=== PATIENT | female | born 1965 | race Caucasian/White ===

== ENCOUNTER 2020-02-03 13:25 | Emergency (ER) | payer OTHER, SELFPAY ==
--- NOTE | 2020-02-03 13:30 | ED.SKABFB ---
HPI - Skin/Abscess/Foreign Bdy General Chief complaint: Skin/Abscess/Foreign Body Stated complaint: cheek is red/hot Time Seen by Provider: 02/03/20 13:37 Source: patient and RN notes reviewed Mode of arrival: ambulatory Limitations: no limitations History of Present Illness HPI narrative: 54-year-old female presents with concern for red, warm area on her left cheek. Reports she noted symptoms this morning. She denies any injury, trauma, history of similar instances, fever, chills, sweats. Reports she put ice on the area with no relief. complaint: rash Related Data Home Medications Medication Instructions Recorded Confirmed meloxicam 15 mg PO DAILY 02/03/20 02/03/20 tamoxifen 20 mg PO DAILY 02/03/20 02/03/20 Allergies Allergy/AdvReac Type Severity Reaction Status Date / Time No Known Allergies Allergy Verified 02/03/20 13:39 Review of Systems Review of Systems: Narrative: CONSTITUTIONAL: Denies malaise, chills, sweats, or fever. EYES: Denies visual changes, redness, or discharge. ENT: Denies rhinorrhea, congestion, sinus pain, otalgia or sore throat. CARDIOVASCULAR: Denies chest pain, palpitations RESPIRATORY: Denies dyspnea. SKIN: Reports red, warm area on her left cheek. MUSCULOSKELETAL: Denies myalgia. NEUROLOGIC: Denies headache. All systems reviewed & are unremarkable except as noted in HPI and below PMFSH Comments At time of signature, agree with nursing past medical, surgical, social and family history. There is no relevant family history pertinent to the presenting complaint Exam Narrative: Exam Narrative: GENERAL: Well-appearing, well-nourished, and in no acute distress. HEAD: Normocephalic, atraumatic. EYES: PERRLA, conjunctivae clear ENT: Nares clear. Mucous membranes moist. TM pearly medel with sharp light reflex bilaterally; no tragal tenderness. NECK: Supple. No lymphadenopathy CHEST: No respiratory distress. Speaks in full sentences. HEART: Regular rate and rhythm. SKIN: Warm, dry, no rash. 7 cm x 6 cm area of warmth, erythema, mild induration noted to the left cheek. No nodules, or obstructions palpated in the salivary glands NEURO: Alert and oriented x3. PSYCH: Normal mood and affect Course Course Emergency Course: Patient is aware of diagnosis, understands and agrees to treatment plan. Anticipatory guidance given. Patient agrees to follow-up as directed and is aware of reasons to seek care at the emergency department. Portions of this record may have been created with voice recognition software Vital Signs Vital signs: Vital Signs Temperature 99.3 F 02/03/20 13:39 Pulse Rate 68 02/03/20 13:39 Respiratory Rate 16 02/03/20 13:39 Blood Pressure 159/77 H 02/03/20 13:39 Pulse Oximetry 98 02/03/20 13:39 Temperature 99.3 F 02/03/20 13:39 Pulse Rate 68 02/03/20 13:39 Respiratory Rate 16 02/03/20 13:39 Blood Pressure 159/77 H 02/03/20 13:39 Pulse Oximetry 98 02/03/20 13:39 Reviewed. MDM - Skin/Abscess/Foreign Bdy MDM Narrative Medical decision making narrative: Exam findings show no acute concerns or changes; patient is non-toxic appearing and is in no distress. Patient is appropriate for outpatient treatment and follow-up. Differential Diagnosis Differential diagnosis: Likely abscess of skin or subcutaneous tissue, viral exanthem, cellulitis, eczema, impetigo and contact dermatitis Critical Care Time Critical Care Time Critical Care Time: No Discharge Plan Discharge Clinical Impression: Erysipelas Patient Disposition: Home, Self-Care Condition: Stable Instructions: Antibiotic Form Additional Instructions: Please follow up with your Primary Care Doctor if symptoms worsen or do not improve. Apply moist heat 3-4 times daily for 10-15 minutes. Take Motrin 600mg every 8 hours with food for pain. Please take Antibiotics as directed. If you experience any worsening redness, swelling, streaking (red lines), fever or chills please go to t
[2020-02-03 13:39] VITALS: BP 159/77; PULSE 68; RESP 16; TEMP 37.4; O2SAT 98
== END 2020-02-03 13:58 | disposition home or self-care (01) ==
PROVIDERS: Emergency Provider Nurse Practitioner; PCP Emergency Medicine
DX: A46 Erysipelas (principal)
CPT/HCPCS: 99213; G0463

== ENCOUNTER 2021-10-20 12:23 | Emergency (ER) | payer OTHER, SELFPAY ==
[2021-10-20 13:05] VITALS: BP 152/95; PULSE 87; RESP 20; TEMP 37.4; O2SAT 100
--- NOTE | 2021-10-20 13:35 | ED.URI ---
HPI - URI/Sore Throat General Chief Complaint: Upper Respiratory Infection Stated Complaint: Cough,Runny Nose,Congestion Time Seen by Provider: 10/20/21 13:25 History of Present Illness HPI Narrative: Milagros Torres is a 56 yo female with PMH of HTN, fatty liver, hx L breast CA, who comes to express care with cough, reported O2 of 92 on pulse ox, sore throat with coughing. Has been sick for 3 days with this cough andalso reports some fatigue , Related Data Home Medications Medication Instructions Recorded Confirmed meloxicam 15 mg tablet 15 mg PO DAILY 02/03/20 10/18/21 tamoxifen 20 mg tablet 20 mg PO DAILY 02/03/20 10/18/21 calcium carbonate 600 mg calcium 600 mg PO DAILY 03/14/21 10/18/21 (1,500 mg) tablet (Calcium) cholecalciferol (vitamin D3) 50 50 mcg PO DAILY 03/14/21 10/18/21 mcg (2,000 unit) capsule Allergies Allergy/AdvReac Type Severity Reaction Status Date / Time No Known Allergies Allergy Verified 10/20/21 13:29 Review of Systems Review of Systems: CONSTITUTIONAL: Denies fever, chills, sweats. worried about pulse ox of 92 EYES: Denies visual changes, redness, discharge. ENT: Denies rhinorrhea, congestion, sore throat, otalgia. CARDIOVASCULAR: Denies chest pain, palpitations, edema. RESPIRATORY: Denies dyspnea, wheezing, has cough GASTROINTESTINAL: Denies abdominal pain, nausea, vomiting, diarrhea. GENITOURINARY: Denies dysuria, hematuria, abnormal discharge SKIN: Denies rash or itching. NEUROLOGIC: Denies numbness, or focal weakness. PSYCHIATRIC: Denies anxiety or depression. [facility] Past Medical History Medical History Anxiety Essential (primary) hypertension History of left breast cancer NAFLD (nonalcoholic fatty liver disease) Osteoarthritis Surgical History Surgical History H/O dilation and curettage (~2018) 2015, 2019 History of lumpectomy of left breast 2016 History of tubal ligation (~1990) Hx laparoscopic cholecystectomy (~2020) Family History Family History Mother Lung cancer Sibling Breast cancer Social History Social History Smoking status: Never smoker Alcohol intake: current Substance use: never Gender identity (if verbalized by the patient): Female Spiritual care concerns: No Agree to blood products: Yes Comments At time of signature, I agree with nursing past medical, surgical, social and family history. There is no relevant family history pertinent to the presenting complaint. Exam Narrative: GENERAL: This is a well-nourished, well-developed patient, in mild distress. HEAD: normocephalic, atraumatic. EYES: Sclera clear/white. Vision is grossly intact. EARS: External ears normal, auditory canals erythematous and without drainage, TMs normal without perforation. Hearing grossly intact. NOSE: External nose normal with nasal discharge, nares without redness, hasrhinorrhea. THROAT: Mucous membranes moist, posterior pharynx erythema no exudate NECK: Neck supple, non-tender CARDIOVASCULAR: Regular rate and rhythm without murmurs, gallops, or rubs. RESPIRATORY: Clear to auscultation. Breath sounds equal bilaterally. No wheezes, rales, or rhonchi. GASTROINTESTINAL: Abdomen soft, SKIN: warm, intact with no suspicious lesions or rash, good texture and turgor. NEURO: awake, alert, and oriented to person, place and time. There were no obvious focal neurologic abnormalities. Steady gait EXTREMITIES: Normal range of motion. BACK: Nontender without deformity Course Course Emergency Course: Patient has been coughing and has a sore throat from all the coughing with reported low O2 sats x3 days Started on treatment for bronchitis including prednisone, Zithromax, Tessalon Perles, albuterol inhaler Level of Care: Express Care Visit Vit
== END 2021-10-20 13:46 | disposition home or self-care (01) ==
PROVIDERS: Emergency Provider Nurse Practitioner; PCP Family Medicine
DX: J40 Bronchitis, not specified as acute or chronic (principal); Z20.822 Contact with and (suspected) exposure to COVID-19; I10 Essential (primary) hypertension; Z85.3 Personal history of malignant neoplasm of breast; K76.0 Fatty (change of) liver, not elsewhere classified; M19.90 Unspecified osteoarthritis, unspecified site
CPT/HCPCS: 87081; 87426; 87804; 87880; 99213; C9803; G0463

== ENCOUNTER 2022-07-10 11:00 | Outpatient (CLI) | payer OTHER, SELFPAY ==
--- NOTE | ~2022-07-10 | US_ITS ---
EXAMINATION: US pelvic complete w TV DATE: 07/10/2022 11:57 INDICATION: N95.0 - Postmenopausal bleeding. Menopause 7 years ago, on tamoxifen x7 years. TECHNIQUE: Multiple transabdominal and endovaginal sonographic images of the pelvis were obtained. COMPARISON: None. FINDINGS: Uterus: 9.3 x 3.7 x 4.9 cm. Endometrial complex measures 5.2 mm. Right Ovary: Not visualized. Left Ovary: Not visualized. There is no free fluid in the pelvis. IMPRESSION: Mild endometrial thickening, consider endometrial sampling. Bilateral ovaries not visualized. Reviewed, dictated and finalized at location K. [employer] IMPRESSION: Mild endometrial thickening, consider endometrial sampling. Bilateral ovaries n ot visualized.
== END 2022-07-10 11:01 | disposition home or self-care (01) ==
PROVIDERS: PCP Family Medicine; Visit Provider Registered Nurse
DX: N95.0 Postmenopausal bleeding (principal)
CPT/HCPCS: 76830; 76856

== ENCOUNTER 2022-08-13 07:55 | Outpatient (CLI) | payer OTHER, SELFPAY ==
--- NOTE | ~2022-08-13 | DEXA_ITS ---
Bone Density Report Name: TAI CERVANTES Age: 57 Sex: Female Ethnicity: White Date of : 1965 Indication: postmenopausal; screening for osteoporosis; cancer; Referring Provider: DEBRA JOHNSON Study: Bone densitometry was performed. Exam Date: August 13, 2022 Accession number: [id number] Bone Density: Region BMD T-score Z-score Classification AP Spine(L1-L4) 1.084 0.3 1.6 Normal Femoral Neck (Left) 0.809 -0.4 0.8 Normal Total Hip (Left) 0.987 0.4 1.2 Normal Femoral Neck (Right) 0.838 -0.1 1.1 Normal Total Hip (Right) 1.036 0.8 1.6 Normal Total Hip Mean 1.012 0.6 1.4 Normal World Health Organization criteria for BMD impression classify patients as: Normal (T-score at or above -1.0), Osteopenia (T-score between -1.0 and -2.5), or Osteoporosis (T-score at or below -2.5). 10-year Fracture Risk: FRAX not reported because: All T-scores for Spine Total, Hip Total, Femoral Neck at or above -1.0 Clinical Information Provided by Patient: Has used the following medications: Vitamin D, Calcium Has the following medical conditions: Cancer Patient maximum height was 67 Menopause Age: 51 No regular weight bearing exercise Onset of menses at age 13 Number of children 3 Impression: The patient has normal bone mass. Discussion: BONE DENSITY IS ABOVE THE MINIMUM DESIRABLE LEVEL AT ALL SKELETAL SITES TESTED. This patient?s bone mineral density is above the minimum desirable level (T-score -1.0 or better) at all sites measured. The patient should follow a healthful lifestyle (good nutrition with adequate calcium and vitamin D, and appropriate weight-bearing exercise). Follow-Up: Consider repeating this study in 5 years or sooner if there is some new clinical indication. Reported by: GLENN on 08/13/2022 8:19:00 AM. Reviewed, dictated and finalized at location [facility]
== END 2022-08-13 07:56 | disposition home or self-care (01) ==
PROVIDERS: PCP Family Medicine; Visit Provider Registered Nurse
DX: Z78.0 Asymptomatic menopausal state (principal)
CPT/HCPCS: 77080

== ENCOUNTER 2022-11-04 10:46 | Emergency (ER) | payer OTHER, SELFPAY ==
--- NOTE | ~2022-11-04 | XR_ITS ---
EXAMINATION: XR ankle RT min 3V DATE: 11/04/2022 11:06 INDICATION: Right ankle pain. Fall. TECHNIQUE: 4 views of right ankle were obtained. COMPARISON: Right foot radiographs 08/30/2016 FINDINGS: Bone alignment is normal. No fracture. Joint spaces are well maintained. There are enthesop hytes at the posterior and plantar aspects of calcaneal tuberosity. There is soft tissue swelling abo ut the ankle. IMPRESSION: 1. No fracture. Reviewed, dictated and finalized at location A. IMPRESSION: 1. No fracture.
[2022-11-04 10:57] VITALS: BP 147/90; PULSE 103; RESP 18; TEMP 36.8; O2SAT 99
--- NOTE | 2022-11-04 11:13 | ED.LOWEXIN ---
HPI - Extremity Injury (Lower) General Chief Complaint: Extremity Injury, Lower Stated Complaint: Rt Ankle Pain Due To Fall Time Seen by Provider: 11/04/22 11:13 Source: patient, RN notes reviewed and old records reviewed Mode of arrival: ambulatory Limitations: no limitations History of Present Illness HPI Narrative: 57-year-old female presents to the [facility] with medial ankle pain, bruising and a blister since she fell Walks with a normal gait. Significant bruising noted to the medial aspect of the right lower leg, ankle and foot. Has full range of motion. Positive pedal pulse. Sensation intact in all 5 toes. Good range of motion Onset (ago): day(s) Related Data Home Medications Medication Instructions Recorded Confirmed calcium carbonate 600 mg calcium 600 mg PO DAILY 03/14/21 11/04/22 (1,500 mg) tablet (Calcium) cholecalciferol (vitamin D3) 50 50 mcg PO DAILY 03/14/21 11/04/22 mcg (2,000 unit) capsule celecoxib 100 mg capsule (Celebrex) 100 mg PO DAILY 06/03/22 11/04/22 Allergies Allergy/AdvReac Type Severity Reaction Status Date / Time No Known Allergies Allergy Verified 11/04/22 11:05 Review of Systems Review of Systems: All systems reviewed & are unremarkable except as noted in HPI and below Constitutional: Constitutional: Reports no additional constitutional complaints Eyes: Eyes: Reports no additional eye complaints ENT: Reports system reviewed and no additional complaints, except as documented Cardiovascular: Cardiovascular: Reports no additional cardiovascular complaints, Denies chest pain and Denies dyspnea Respiratory: Respiratory: Reports no additional respiratory complaints, Denies chest congestion, Denies cough and Denies dyspnea Gastrointestinal: Gastrointestinal: Reports no additional gastrointestinal complaints, Denies abdominal pain, Denies nausea and Denies vomiting Musculoskeletal: Musculoskeletal: Reports as per HPI Integumentary/Breasts: Skin/Breast: Reports as per HPI Neurologic: Reports system reviewed and no additional complaints, except as documented Psychiatric: Psychiatric: Reports no additional psychiatric complaints Allergic/Immunologic: Allergic/Immunologic: Reports no additional allergic/immunologic complaints [facility] Past Medical History Medical History Anxiety CKD (chronic kidney disease) stage 3, GFR 30-59 ml/min Essential (primary) hypertension Gastroesophageal reflux disease History of left breast cancer History of vaginal delivery x2 Hyperlipidemia NAFLD (nonalcoholic fatty liver disease) Osteoarthritis Post-menopausal bleeding Surgical History Surgical History H/O dilation and curettage (~2018) 2015, 2018 History of section x 1 History of lumpectomy of left breast 2016 History of total left knee replacement (~2021) History of tubal ligation (~1990) Hx laparoscopic cholecystectomy (~2020) Family History Family History Mother Lung cancer Diabetes mellitus Heart disease Cerebrovascular accident Sibling Breast cancer Sister Malignant neoplasm of prostate brother Other Alcoholism Lung cancer Aunt and Uncle Grandparent Alcoholism Lung cancer Grandfather Father Hypertension Heart disease Social History Social History Smoking status: Never smoker Alcohol intake: current Substance use: never Substance use type: does not use Lack of Transportation: No Lack of Food: Never True Current Housing: I Have Housing Concerned About Future Housing: No Difficulty Paying Gas/Electric Bills: No Difficulty Paying for Meds: No Currently Unemployed: No Education: High School Diploma/GED Difficulty w/ Childcare or Family Care: No Living arrangements: with ro
== END 2022-11-04 11:30 | disposition home or self-care (01) ==
PROVIDERS: Emergency Provider Nurse Practitioner; PCP Family Medicine
DX: S90.01XA Contusion of right ankle, initial encounter (principal); W19.XXXA Unspecified fall, initial encounter; I12.9 Hypertensive chronic kidney disease with stage 1 through stage 4 chronic kidney disease, or unspecified chronic kidney disease; N18.30 Chronic kidney disease, stage 3 unspecified; K21.9 Gastro-esophageal reflux disease without esophagitis; Z85.3 Personal history of malignant neoplasm of breast; E78.5 Hyperlipidemia, unspecified; K76.0 Fatty (change of) liver, not elsewhere classified; M19.90 Unspecified osteoarthritis, unspecified site; Z96.652 Presence of left artificial knee joint
CPT/HCPCS: 73610; 99213; G0463

== ENCOUNTER 2022-11-09 13:33 | Emergency (ER) | payer OTHER, SELFPAY ==
[2022-11-09 13:36] VITALS: BP 149/87; PULSE 91; RESP 20; TEMP 36.7; O2SAT 98
--- NOTE | 2022-11-09 14:08 | ED.LOWEXIN ---
HPI - Extremity Injury (Lower) General Chief Complaint: Extremity Injury, Lower Stated Complaint: ankle wound Time Seen by Provider: 11/09/22 13:44 History of Present Illness HPI Narrative: Patient is a 57-year-old female presenting with a blister. Patient states that she twisted her ankle approximately 5 days ago. She had a lot of bruising at that time as well as a small blister on the medial aspect of her right ankle. States that x-ray showed no broken bones and she was able to go home. States that all of the bruising and redness has improved but the blister has gotten a little bit bigger. States that it feels tight. Patient states that she has been ambulating without difficulty. She denies calf swelling or pain. She denies numbness or weakness. Denies further injuries or complaints. Related Data Home Medications Medication Instructions Recorded Confirmed calcium carbonate 600 mg calcium 600 mg PO DAILY 03/14/21 11/04/22 (1,500 mg) tablet (Calcium) cholecalciferol (vitamin D3) 50 50 mcg PO DAILY 03/14/21 11/04/22 mcg (2,000 unit) capsule celecoxib 100 mg capsule (Celebrex) 100 mg PO DAILY 06/03/22 11/04/22 Allergies Allergy/AdvReac Type Severity Reaction Status Date / Time No Known Allergies Allergy Verified 11/09/22 13:39 Review of Systems Review of Systems: All systems reviewed & are unremarkable except as noted in HPI and below PMFSH Past Medical History Medical History Anxiety CKD (chronic kidney disease) stage 3, GFR 30-59 ml/min Essential (primary) hypertension Gastroesophageal reflux disease History of left breast cancer History of vaginal delivery x2 Hyperlipidemia NAFLD (nonalcoholic fatty liver disease) Osteoarthritis Post-menopausal bleeding Surgical History Surgical History H/O dilation and curettage (~2018) 2015, 2019 History of section x 1 History of lumpectomy of left breast 2016 History of total left knee replacement (~2021) History of tubal ligation (~1990) Hx laparoscopic cholecystectomy (~2020) Family History Family History Mother Lung cancer Diabetes mellitus Heart disease Cerebrovascular accident Sibling Breast cancer Sister Malignant neoplasm of prostate brother Other Alcoholism Lung cancer Aunt and Uncle Grandparent Alcoholism Lung cancer Grandfather Father Hypertension Heart disease Social History Social History Smoking status: Never smoker Alcohol intake: current Substance use: never Substance use type: does not use Lack of Transportation: No Lack of Food: Never True Current Housing: I Have Housing Concerned About Future Housing: No Difficulty Paying Gas/Electric Bills: No Difficulty Paying for Meds: No Currently Unemployed: No Education: High School Diploma/GED Difficulty w/ Childcare or Family Care: No Living arrangements: with roommate(s) Occupation/Education: occupation Gender identity (if verbalized by the patient): Female Spiritual care concerns: No Agree to blood products: Yes Exam Narrative: GENERAL: Well-appearing, well-nourished, and in no acute distress. HEAD: Normocephalic, bruising below both eyes EYES: PERRLA and EOMI. ENT: Nares clear, no rhinorrhea or epistaxis. Mucous membranes moist. NECK: Supple. CHEST: No respiratory distress. HEART: Regular rate and rhythm. Normal peripheral pulses. ABDOMEN: Nondistended EXTREMITIES: Right ankle with circumferential ecchymoses extending up the calf that appear to be healing, 2 x 2 centimeter blister medial aspect of the right ankle without surrounding erythema, no purulence, no crepitus, compartments are soft, DP/PT pulses 2+, brisk cap refill, no sensory deficits SKIN: Warm
== END 2022-11-09 14:44 | disposition home or self-care (01) ==
PROVIDERS: Emergency Provider Emergency Medicine; PCP Family Medicine
DX: S90.521A Blister (nonthermal), right ankle, initial encounter (principal); I12.9 Hypertensive chronic kidney disease with stage 1 through stage 4 chronic kidney disease, or unspecified chronic kidney disease; N18.30 Chronic kidney disease, stage 3 unspecified; E78.5 Hyperlipidemia, unspecified; X50.0XXA Overexertion from strenuous movement or load, initial encounter
CPT/HCPCS: 99281

== ENCOUNTER 2023-08-01 14:23 | Emergency (ER) | payer OTHER, SELFPAY ==
--- NOTE | 2023-08-01 14:30 | ED.GENADULT ---
HPI - General Adult General Chief complaint: Extremity Problem,Nontraumatic Stated complaint: bilateral leg swelling Time Seen by Provider: 08/01/23 14:35 Source: patient, RN notes reviewed and old records reviewed Mode of arrival: ambulatory Limitations: no limitations History of Present Illness HPI narrative: 58-year-old female presents to the [facility] with bilateral leg swelling for about 1 week. States that she has been on vacation. Has been eating out at restaurants. Has not been checking her blood pressure. Patient states that she has been elevating legs and soaking. No redness noted. Walks with a normal gait. Positive pedal pulse. Capillary refill under 2 seconds. States that she tried calling primary care provider and was referred to the Urgent Care Patient with a history of hypertension, high cholesterol as well as stage 3 kidney disease. Denies any chest pain or shortness of breath. Onset (ago): week(s) (1) Related Data Home Medications Medication Instructions Recorded Confirmed calcium carbonate 600 mg calcium 600 mg PO DAILY 03/14/21 08/01/23 (1,500 mg) tablet (Calcium) cholecalciferol (vitamin D3) 50 50 mcg PO DAILY 03/14/21 08/01/23 mcg (2,000 unit) capsule celecoxib 100 mg capsule (Celebrex) 100 mg PO DAILY 06/03/22 08/01/23 Allergies Allergy/AdvReac Type Severity Reaction Status Date / Time No Known Allergies Allergy Verified 08/01/23 14:36 Review of Systems Review of Systems: All systems reviewed & are unremarkable except as noted in HPI and below Constitutional: Constitutional: Reports no additional constitutional complaints Eyes: Eyes: Reports no additional eye complaints ENT: Reports system reviewed and no additional complaints, except as documented Cardiovascular: Cardiovascular: Reports no additional cardiovascular complaints, Denies chest pain and Denies dyspnea Respiratory: Respiratory: Reports no additional respiratory complaints, Denies chest congestion, Denies cough and Denies dyspnea Gastrointestinal: Gastrointestinal: Reports no additional gastrointestinal complaints, Denies abdominal pain, Denies nausea and Denies vomiting Musculoskeletal: Musculoskeletal: Reports as per HPI Integumentary/Breasts: Skin/Breast: Reports system reviewed and no additional complaints, except as docu Neurologic: Reports system reviewed and no additional complaints, except as documented Psychiatric: Psychiatric: Reports no additional psychiatric complaints Allergic/Immunologic: Allergic/Immunologic: Reports no additional allergic/immunologic complaints PMFSH Past Medical History Medical History Anxiety CKD (chronic kidney disease) stage 3, GFR 30-59 ml/min Essential (primary) hypertension Gastroesophageal reflux disease History of left breast cancer History of vaginal delivery x2 Hyperlipidemia NAFLD (nonalcoholic fatty liver disease) Osteoarthritis Post-menopausal bleeding Surgical History Surgical History H/O dilation and curettage (~2018) 2015, 2019 History of section x 1 History of hysterectomy (~2022) History of lumpectomy of left breast 2016 History of total left knee replacement (~2021) History of tubal ligation (~1990) Hx laparoscopic cholecystectomy (~2020) Family History Family History Mother Lung cancer Diabetes mellitus Heart disease Cerebrovascular accident Sibling Breast cancer Sister Malignant neoplasm of prostate brother Other Alcoholism Lung cancer Aunt and Uncle Grandparent Alcoholism Lung cancer Grandfather Father Hypertension Heart disease Social History Social History Smoking status: Never smoker Alcohol intake: current Substance use: never Substance use type: does
[2023-08-01 14:35] VITALS: BP 135/78; PULSE 91; RESP 18; TEMP 36.9; O2SAT 98
[2023-08-01 14:36] VITALS: BP 135/78; PULSE 91; RESP 18; TEMP 36.9; O2SAT 98
== END 2023-08-01 14:51 | disposition home or self-care (01) ==
PROVIDERS: Emergency Provider Nurse Practitioner; PCP Family Medicine
DX: R60.0 Localized edema (principal); I12.9 Hypertensive chronic kidney disease with stage 1 through stage 4 chronic kidney disease, or unspecified chronic kidney disease; N18.30 Chronic kidney disease, stage 3 unspecified; K21.9 Gastro-esophageal reflux disease without esophagitis; Z85.3 Personal history of malignant neoplasm of breast; E78.5 Hyperlipidemia, unspecified; K76.0 Fatty (change of) liver, not elsewhere classified; M19.90 Unspecified osteoarthritis, unspecified site; Z96.652 Presence of left artificial knee joint; Z90.12 Acquired absence of left breast and nipple
CPT/HCPCS: 99211; G0463

== ENCOUNTER 2023-09-11 11:25 | Outpatient (CLI) | payer OTHER, SELFPAY ==
--- NOTE | ~2023-09-11 | XR_ITS ---
EXAMINATION: XR lumbar spine 2-3V DATE: 09/11/2023 11:41 INDICATION: Dorsalgia. TECHNIQUE: 3 views of lumbar spine were obtained. COMPARISON: Lumbar spine radiographs 08/30/2016 FINDINGS: There is 4 degrees dextrocurvature lumbar spine. Vertebral body heights are normal. There i s mildly decreased disc height at L5-S1. There are endplate osteophytes at multiple levels. There is multilevel facet joint osteoarthritis, severe in lower lumbar spine. IMPRESSION: 1. Mild lumbar spondylosis. Reviewed, dictated and finalized at location A. IMPRESSION: 1. Mild lumbar spondylosis.
== END 2023-09-11 11:26 | disposition home or self-care (01) ==
LOC: ANHIMG 11:26
PROVIDERS: PCP Family Medicine; Visit Provider Nurse Practitioner
DX: M47.896 Other spondylosis, lumbar region (principal)
CPT/HCPCS: 72100

== ENCOUNTER 2024-04-19 08:26 | Emergency (ER) | payer OTHER, SELFPAY ==
--- NOTE | ~2024-04-19 | XR_ITS ---
XR chest 2V Ordering provider: Jessica Gonzalez APRN History: 58 years Female with . Cough. 1 week + . Comparison: None. FINDINGS: MEDIASTINUM: The cardiac silhouette is not enlarged. LUNGS: No infiltrates, effusions or pneumothorax. Prominent bronchovascular markings in the lower lobes which may indicate atelectasis. Early pneumonia cannot be excluded. OTHER: No free air under the diaphragm. IMPRESSION: Prominent bronchovascular markings in the lower lobes which may indicate atelectasis. Ear ly pneumonia also cannot be excluded. Follow-up advised. Reviewed, dictated and finalized at location A. EYOR OPERATOR IMPRESSION: Prominent bronchovascular markings in the lower lobes which may ind icate atelectasis. Early pneumonia also cannot be excluded. Follow-up advised.
--- NOTE | 2024-04-19 08:32 | ED.URI ---
HPI - URI/Sore Throat General Chief Complaint: Upper Respiratory Infection Stated Complaint: cold symptoms Time Seen by Provider: 04/19/24 08:51 Source: patient, RN notes reviewed and old records reviewed Mode of arrival: ambulatory Limitations: no limitations History of Present Illness HPI Narrative: 58-year-old female presents to the [facility] with concerns for a cough for over 1 week. Has taken Delsym as well as Mucinex. Denies fevers. Denies any other URI symptoms Onset (ago): week(s) (+1) Treatments prior to arrival: cold medicine Related Data Home Medications ?Medication ?Instructions ?Recorded ?Confirmed ?Last Taken ?Type calcium carbonate (Calcium 600) 600 mg PO DAILY 03/14/21 02/04/24 Unknown History cholecalciferol (vitamin D3) 50 50 mcg PO DAILY 03/14/21 02/04/24 Unknown History mcg (2,000 unit) capsule celecoxib 100 mg capsule (Celebrex) 100 mg PO DAILY 06/03/22 02/04/24 Unknown History Allergies Allergy/AdvReac Type Severity Reaction Status Date / Time amlodipine AdvReac Severe Swelling Verified 04/19/24 08:51 Review of Systems Review of Systems: All systems reviewed & are unremarkable except as noted in HPI and below Constitutional: Constitutional: Reports no additional constitutional complaints ENT: Reports system reviewed and no additional complaints, except as documented Cardiovascular: Cardiovascular: Reports no additional cardiovascular complaints, Denies chest pain and Denies dyspnea Respiratory: Respiratory: Reports as per HPI, Denies chest congestion, Reports cough and Denies dyspnea Gastrointestinal: Gastrointestinal: Reports no additional gastrointestinal complaints, Denies abdominal pain, Denies nausea and Denies vomiting Musculoskeletal: Musculoskeletal: Reports no additional musculoskeletal complaints Integumentary/Breasts: Skin/Breast: Reports system reviewed and no additional complaints, except as docu PMFSH Past Medical History Medical History Prediabetes (~01/09/24) History of vaginal delivery x2 Hyperlipidemia Gastroesophageal reflux disease CKD (chronic kidney disease) stage 3, GFR 30-59 ml/min NAFLD (nonalcoholic fatty liver disease) History of left breast cancer Essential (primary) hypertension Osteoarthritis Anxiety Surgical History Surgical History History of hysterectomy (~2022) History of section x 1 History of total left knee replacement (~2021) History of lumpectomy of left breast 2016 History of tubal ligation (~1990) H/O dilation and curettage (~2018) 2015, 2019 Hx laparoscopic cholecystectomy (~2020) Family History Family History Mother Lung cancer Diabetes mellitus Heart disease Cerebrovascular accident Sibling Breast cancer Sister Malignant neoplasm of prostate brother Other Alcoholism Lung cancer Aunt and Uncle Grandparent Alcoholism Lung cancer Grandfather Father Hypertension Heart disease Social History Social History Smoking status: Never smoker Alcohol intake: current Substance use: never Substance use type: does not use Lack of Transportation: No Lack of Food: Never True Current Housing: I Have Housing Concerned About Future Housing: No Difficulty Paying Gas/Electric Bills: No Difficulty Paying for Meds: No Currently Unemployed: No Education: High School Diploma/GED Difficulty w/ Childcare or Family Care: No Living arrangements: with roommate(s) Occupation/Education: occupation Gender identity (if verbalized by the patient): Female Spiritual care concerns: No Agree to blood products: Yes Comments At the time of my signature, I reviewed and agree with the nursing past medical, surgical, social, and family history. There is no relevant family history pertinent to the patient complaint. Exam Const: General: cooperative, healthy appearing, comfortable, no acute distress, well developed, alert and well nourished Nutritional Appearance: well nourished Orientation/consciousness: patient oriented x3 Limitations: no limitations HENMT: Head: normal to inspection Ears: hearing grossly normal bilaterally and external ears normal Face/Nose/Sinus: Normal external nose present, normal facial exam and face symmetric Eyes: General: appearance normal, both eyes and all related structures Neck: Neck: normal visual inspection, full ROM, no lymphadenopathy and no meningeal signs Chest: Chest palpation & inspection: normal inspection of the chest Resp: Effort & Inspection: normal respiratory effort and able to speak in complete sentences Auscultation: clear to auscultation bilaterally, no crackles, no rales, no rhonchi, no wheezes and diminished lung sounds bilateral in the lower lung galindo Cardio: Rate: regular rate Skin: General skin exam: normal color and no rashes or lesions noted Lesions: no lesions Rashes: no rashes Wounds: no wounds Neuro: General: patient oriented x3, gait normal, tone normal, moves all extremities and no meningeal signs Cognition (Neuro): normal cognition Speech: normal speech Gait exam (Neuro): Normal gait present Extrem: General: normal to inspection, full ROM, capillary refill normal and normal gait Psych: Appearance: grossly normal and well kempt Mental Status: mental status grossly normal Speech and movement: Normal speech and movement present and Clear speech present Affect: normal affect Attitude: cooperative Course Course Level of Care: Express Care Visit Vital Signs Vital signs: Vital Signs Temperature 98.2 F 04/19/24 08:41 Pulse Rate 64 04/19/24 08:41 Respiratory Rate 20 04/19/24 08:41 Blood Pressure 151/76 H 04/19/24 08:41 Pulse Oximetry 97 04/19/24 08:41 Oxygen Delivery Room Air 04/19/24 08:41 Temperature 98.2 F 04/19/24 08:41 Pulse Rate 64 04/19/24 08:41 Respiratory Rate 20 04/19/24 08:41 Blood Pressure 151/76 H 04/19/24 08:41 Pulse Oximetry 97 04/19/24 08:41 Oxygen Delivery Room Air 04/19/24 08:41 Reviewed MDM - URI/Sore Throat MDM Narrative Medical decision making narrative: Patient sitting comfortably in exam room. Nontoxic, vitals stable. Patient presents with over 1 week history of a cough. Chest x-ray shows atelectasis possible early pneumonia, will treat with antibiotic, incentive spirometer and [id number] products. Patient appropriate for outpatient treatment and follow-up Discharge instructions reviewed with patient, as well as provided in writing per nursing staff. The instructions also include specific and strict return/GO TO THE ER as well as f/u information. All questions have been answered, and the patient deny any further questions with discharge and discharge plan. Some parts of this dictation were generated by voice recognition software and may contain typographical and/or grammatical inaccuracies. Differential Diagnosis Differential diagnosis: Likely upper respiratory infection, otitis media, sinusitis, viral infection and bronchitis Imaging Data Radiologist's impression: XR chest 2V Ordering provider: Jessica Gonzalez APRN History: 58 years Female with . Cough. 1 week + . Comparison: None. FINDINGS: MEDIASTINUM: The cardiac silhouette is not enlarged. LUNGS: No infiltrates, effusions or pneumothorax. Prominent bronchovascular markings in the lower lobes which may indicate atelectasis. Early pneumonia cannot be excluded. OTHER: No free air under the diaphragm. IMPRESSION: Prominent bronchovascular markings in the lower lobes which may indicate atelectasis. Early pneumonia also cannot be excluded. Follow-up advised. Reviewed, dictated and finalized at location A. ER TRIMMER Dictated By: Jacinto Evans MD 04/19/24 0941 Signed By: <Electronically signed by Jacinto Evans MD in OV> 04/19/24 0943 Critical Care Time Critical Care Time Critical Care Time: No Discharge Plan Discharge Clinical Impression: Atelectasis Pneumonia Qualifiers: Pneumonia type: due to unspecified organism Laterality: unspecified laterality Lung location: unspecified part of lung Qualified Code(s): J18.9 - Pneumonia, unspecified organism Patient Disposition: Home, Self-Care Condition: Stable Instructions: Antibiotic Form, Pneumonia (ED), Atelectasis (ED) Additional Instructions: It is important that you do 10 deep breaths per hour while awake. Use incentive spirometer Take antibiotic as prescribed Use inhaler every 6 hours while awake Follow-up with primary care provider. It is recommended that you follow-up with your primary care provider for a follow-up x-ray in approximately 2 weeks. For new or worsening symptoms go directly to the emergency room Patient Language: Frisian Prescriptions: New doxycycline monohydrate 100 mg tablet 100 mg PO BID Qty: 14 0RF albuterol sulfate 90 mcg/actuation HFA aerosol inhaler 2 puff inhalation QID PRN (Reason: shortness of breath or wheezing) Qty: 6.7 0RF (DME) Aerochamber MV Spacer See Rx Instructions .Route Qty: 1 0RF Rx Instructions: As directed No Action celecoxib [Celebrex] 100 mg capsule 100 mg PO DAILY cholecalciferol (vitamin D3) 50 mcg (2,000 unit) capsule 50 mcg PO DAILY calcium carbonate [Calcium 600] 600 mg calcium (1,500 mg) tablet 600 mg PO DAILY losartan 25 mg tablet 25 mg PO DAILY Qty: 90 3RF Rx Instructions: Take in conjunction with Losartan HTCZ. losartan-hydrochlorothiazide 50-12.5 mg tablet 1 tablet PO DAILY Qty: 90 2RF phentermine 37.5 mg capsule 37.5 mg PO DAILY Qty: 30 1RF Rx Instructions: must administer 30 minutes before or 1-2 hours after breakfast pravastatin 10 mg tablet 10 mg PO QHS Qty: 90 1RF omeprazole 20 mg capsule,delayed release(DR/EC) 20 mg PO DAILY Qty: 90 1RF Follow-up/Referrals: Benito Veras MD [Primary Care Provider] - 1 Week ([facility] follow-up) Stand Alone Forms: Work/School Release IP Time of Disposition: 09:58
[2024-04-19 08:41] VITALS: BP 151/76; PULSE 64; RESP 20; TEMP 36.8; O2SAT 97
--- OUTSIDE RECORDS SUMMARY | 2024-04-25 13:52 | XMS_ITS | Encounter Summary ---
Author Organization [facility] [employer] Address [address] [place] [address] Care Team Providers Care Methods Specialist Name Role Phone Cole Ku MD Unavailable Willis Veras MD Primary Care Provider Elizabeth Garcia MD Unavailable [phone] Reason for Visit * Auth/Cert (Routine) Specialty Diagnoses / Procedures Referred By Contac t Referred To Contact Diagnoses History of colon polyps Procedures [place] CANC SCRN,COLONOSCPY HI RISK COLONOSCOPY SCREEN w/ curt COLONOSCOPY SCREEN Referral ID Status Reason Start Date Expiration Date Visits Re quested Visits Authorized [id number] 1 1 Encounter Details Date Type Department Care Team (Late st Contact Info) Description 02/03/2024 7:45 AM CDT - 02/03/2024 8:35 AM CDT Surgery [facility] ENDOSCOPY [address] [place] [phone] Joseph Pathak MD [facility] 2L DIV [place] [address] COLONOSCOPY SCREEN w/ curt Surgery Details Date/Time Status Location OR Service Patient Class Case Class Case Type Trauma Case? 02/03/2024 7:45 AM Posted [facility] Endoscopy ENDO 4 Gastroenterology Surgery Day Care Elective > 5 days Panel 1 Procedure LRB Anes Op Region Wound Class Comments COLONOSCOPY SCREEN w/ curt N/A MAC NA A. ileocecal valve irregular mucosa biopsies Surgeon Surgeon Role Service Panel Joseph Pathak MD Primary Gastroenter ology 1 Special Needs COLONOSCOPY Received: Yesterday Jerry Jaime, SABRINA Hidalgo, Saba Powers, SABRINA Walter! Please eval when this pt can be scheduled for procedure(requesting Dr Carpio, says she had him previously). Thanks! Received Date Received Time Dec 18, 2023 2:40 PM documented in this encounter Social History Tobacco Use Types Packs/Day Years Used Date Smoking Tobacco: Never Smokeless Tobacco: Never Alcohol Use Standard Drinks/Week Comments Yes 0 (1 standard drink = 0.6 oz pur e alcohol) ocassional weekends AUDIT-C Answer Date Recorded Q1: How often do you have a drink containing alc ohol? Never 01/07/2023 Average Number of Drinks Not on file 023 Frequency of Binge Drinking Not on file 09/2022 Hunger Vital Sign Answer Date Recorded Within the past 12 months, y ou worried that your food would run out before you got the money to buy more. Never true 02/02/20 22 Within the past 12 months, t he food you bought just didn't last and you didn't have money to get more. Never true 02/01/2022 Sex and Gender Information Value Date Recorded Sex Assigned at Not on file Gender Identity Not on file Sexual Orientation Not on file documented as of this encounter Last Filed Vital Signs Vital Sign Reading Time Taken Comments Blood Pressure 129/87 02/03/2024 7:42 AM CDT Pulse 67 02/03/2024 7:42 AM CDT Temperature 36.7 ??C (98.1 ??F) 02/03/2024 7:25 AM CD T Respiratory Rate 14 02/03/2024 7:42 AM CDT Oxygen Saturation 97% 02/03/2024 7:42 AM CDT Inhaled Oxygen Concentration - - Weight 97.5 kg (214 lb 14.4 oz) 02/03/2024 7:25 AM CDT Height 170.2 cm (5' 7 ) 02/03/2024 7:25 AM CDT Body Mass Index 33.66 02/03/2024 7:25 AM CDT documented in this encounter Functional Status Functional Status Response Date of Assess ment Is person deaf or have serious hearing difficult y? No 02/03/2024 Is person blind or have serious difficulty seein g? No 02/03/2024 Does person have serious dif ficulty walking/climbing stairs? No 02/03/2024 Does person have difficulty dressing/bathing? No 02/03/2024 Does person have difficulty doing errands alone? No 02/03/2024 Cognitive Status Response Date of Assessm ent Does person have difficulty concentrating/remembering/making decisions? No 02/03/2024 documented as of this encounter Discharge Instructions * Discharge Instructions* Yanci Longoria RN - 02/03/2024 8:46 AM CDT Colonoscopy WHAT YOU NEED TO KNOW: A colonoscopy is a procedure to examine the inside of your colon (intestine) with a scope. Polyps or tissue growths may have been removed during your colonoscopy. It is normal to feel bloated and to have some abdominal discomfort. You should be passing gas. If you have hemorrhoids or you had polypsremoved, you may have a small amount of bleeding. DISCHARGE INSTRUCTIONS: Seek care immediately if: You have a large amount of bright red blood in your bowel movements. Your abdomen is hard and firm and you have severe pain. You have sudden trouble breathing. Call your doctor if: You develop a rash or hives. You have a fever within 24 hours of your procedure. You have nausea and vomiting. You feel anesthesia effects greater than 24 hours. You have not had a bowel movement for 3 days after your procedure. You have questions or concerns about your condition or care. After your colonoscopy: Do not lift, strain, or run until your healthcare provider says it is okay. Rest as much as possible. You have been given medicine to relax you. Do not drive or make importantdecisions for at least 24 hours. Return to your normal activity as directed. Relieve gas and discomfort from bloating by lying on your left side with a heating pad on your abdomen. You may need to take short walks to help the gas move out. Eat small meals until bloating is relieved. If you had polyps removed: For 7 days after your procedure: Do not take aspirin. Do not go on long car rides. Help prevent constipation: Eat a variety of healthy foods. Healthy foods include fruit, vegetables, whole- grain breads, low-fat dairy products, beans, lean meat, and fish. Ask if you need to be on a special diet. Your healthcare provider may recommend that you eat high-fiber foods such as cooked beans. Fiber helps you have regular bowel movements. Drink liquids as directed. Adults should drink between 9 and 13 eight-ounce cups of liquid every day. Ask what amount is best for you. For most people, good liquids to drink are water, juice, and milk. Exercise as directed. Talk to your healthcare provider about the best exercise plan for you. Exercise can help prevent constipation, decrease your blood pressure and improve your health. Follow up with your doctor as directed: Write down your questions so you remember to ask them during your visits. ?? Copyright [employer] 2020 Information is for End User's use only and may not be sold, redistributed or otherwise used for commercial purposes. All illustrations and images included in CareNotes?? are the copyrighted property of [employer] or [employer] The above information is an educational interpreter only. It is not intended as medical advice for individual conditions or treatments. Talk to your doctor, nurse or pharmacist before following any medical regimen to see if it is safe and effective for you. documented in this encounter Medications at Time of Discharge Medication Sig Dispensed Refills Start Date End Date calcium 600 MG tabletIndications:Vitamin D deficiency, unspecified Take 1 tablet by mouth daily with food 90 tablet 2 03/23/2019 celecoxib (CeleBREX) 50 MG capsuleIndications:S/P TKR (total knee replacement), left,Primary osteoarthritis of left knee Take 2 (two) capsules by mouth once daily 180 capsule 11/04/2023 famotidine (Pepcid) 20 MG tablet Take 1 (one) tablet by mouth once daily 08/06/2022 losartan (Cozaar) 25 MG tablet Take 1 (one) tablet by mouth once daily 08/04/2023 losartan - hydroCHLOROthiazide (Hyzaar) 50-12.5 MG tablet Take 1 (one) tablet by mouth once daily Buxton-3 Fatty Acids (fish oil) 1000 MG capsule Take by mouth once daily omeprazole (PriLOSEC) 20 MG capsule Take 1 (one) capsule by mouth once daily 12/31/2023 phentermine (Adipex-P) 37.5 MG capsule Take 1 (one) capsule by mouth every 2 days 12/31/2023 polyethylene glycol (Golytely) 236 g solution Drink all of the prep at 6pm the night before colonoscopy. Please finish all of the prep before going to bed. 4000 mL 01/19/2024 pravastatin (Pravachol) 10 MG half tablet Take 1 (one) Half Tablet by mouth once daily 07/02/2023 Vitamin D3, cholecalciferol, 50 MCG (1999) tabletIndications:Vitamin D deficiency, unspecified Take 1 tablet by mouth once daily 90 tablet 2 03/23/2019 documented as of this encounter H&P Notes * Joseph Pathak MD - 02/03/2024 7:37 AM CDT PRE-PROCEDURE HISTORY & PHYSICAL NOTE (Presedation assessment per Anesthesia Team) 02/03/2024 7:37 AM Patient: Milagros Torres, date of 1965 Procedure(s) planned: Colonoscopy Indication(s): Polyp surveillance, cancer screening History: Past Medical History: Diagnosis Date ??? Arthropathy ??? Breast cancer (HCC) ??? CKD (chronic kidney disease) blood work every 6 months to monitor, no dialysis ??? Delayed emergence from anesthesia ??? Depression with anxiety ??? Disorder of liver NAFLD, bloodwork checked every 6 months, ok to take tylenol ??? Gallstones ??? Hypertension required meds when getting radiation for breast CA. No longer requiring meds ??? Malignancy (HCC) breast left ??? Valvular heart disease heart murmur Past Surgical History: Procedure Laterality Date ??? Bilateral Tubal Ligation (BTL) ??? BIOPSY BREAST ??? Breast Lumpectomy Left 09/04/2015 With sentinel node biopsy performed by Dr. Brittni Knight ??? Section 05/1990 ??? Cholecystectomy, Laparoscopic N/A 12/05/2020 N/A; LAPAROSCOPIC CHOLECYSTECTOMY ??? COLONOSCOPY N/A 09/18/2020 N/A; COLONOSCOPY SCREEN---extended prep with Curt ??? Dilation and Curettage 2016 and 2019 for PMB in the s/o tamoxifen use ??? HYSTERECTOMY, TOTAL LAPAROSCOPIC N/A 02/27/2023 N/A; ROBOTIC ASSISTED TOTAL LAPAROSCOPIC HYSTERECTOMY, SALPINGO--OOPHORECTOMY--BILATERAL ??? HYSTEROSCOPY N/A 10/16/2022 N/A; HYSTEROSCOPY WITH DILATION & CURETTAGE, INTRAUTERINE DEVICE PLACEMENT ??? HYSTEROSCOPY N/A 01/07/2023 N/A; HYSTEROSCOPY WITH DILATION & CURETTAGE, REMOVAL & REPLACEMENT OF INTRAUTERINE DEVICE ??? KNEE ARTHROPLASTY Left 02/01/2022 Left; TOTAL KNEE ARTHROPLASTY Family History Problem Relation Name Age of Onset ??? Cancer - Lung Mother ??? Cancer - Breast Sister ??? Cancer - Prostate Brother Social History Socioeconomic History ??? Marital status: Spouse name: Not on file ??? Number of children: Not on file ??? Years of education: Not on file ??? Highest education level: Not on file Occupational History ??? Not on file Tobacco Use ??? Smoking status: Never ??? Smokeless tobacco: Never Vaping Use ??? Vaping Use: Never used Substance and Sexual Activity ??? Alcohol use: Yes Comment: ocassional weekends ??? Drug use: Never ??? Sexual activity: Not on file Other Topics Concern ??? Not on file Social History Narrative ??? Not on file Social Determinants of Health Financial Resource Strain: Not on file Food Insecurity: No Food Insecurity (02/01/2022) Hunger Vital Sign ??? Worried About Running Out of Food in the Last Year: Never true ??? Ran Out of Food in the Last Year: Never true Transportation Needs: Not on file Stress: Not on file Housing Stability: Not on file No Known Allergies Review of systems: Chest pain: No Shortness of breath: No Abdominal pain: No Physical Exam: BP (!) 136/102 Pulse 72 Temp 98.1 ??F (36.7 ??C) (Oral) Resp 16 Ht 1.702 m (5' 7 ) Wt 97.5 kg (214 lb 14.4 oz) SpO2 93% GENERAL: Alert, oriented and in no apparent distress. LUNGS: Breathing at baseline CVS: Regular heart rate. ABDOMEN: Soft, non-distended. NEURO: At baseline. ASA III Recent Labs Component Name 02/19/23 1008 01/07/23 0608 12/30/22 0000 07/03/20 1019 05/12/20 1028 WBC 6.9 5.0 4.9 - 7.3 HGB 12.8 12.4 12.5 - 12.8 PLT - - 164 - - INR - - - - 1.0 - = values in this interval not displayed. Recent Labs Component Name 02/19/23 1008 MCV 88.3 Recent Labs Component Name 02/19/23 1008 01/07/23 0608 12/30/22 0000 10/21/22 1203 03/20/22 1036 01/22/22 1015 08/06/21 1049 NA - - - 139 139 - 144 CL - - - 107 109* - 108* CO2 24 22 22 27 21* - 24 BUN 12 15 17 16 15 - 17 CREATININE 1.01 0.88 - 0.96 1.07* - 1.02* - = values in this interval not displayed. Recent Labs Component Name 12/30/22 0000 10/21/22 1203 03/20/22 1036 01/22/22 1015 08/06/21 1049 AST 39 102* 36* - 30 ALT 34 80* 21 - 24 ALKPHOS 88 77 87 - 71 TBILI - 0.3 0.3 - 0.4 ALB 4.3 3.7 3.6 - 3.7 - = values in this interval not displayed. No results for input(s): CRP in the last 50781 hours. Sedation Plan: MAC by the anesthesia team. The indications, alternatives, benefits and risks of the endoscopic procedure were reviewed with the patient/family. Significant risks such as pain, bleeding, infection, perforation of the viscus, pancreatitis (in the case of EUS/ERCP), and consequences related to sedation such as respiratory arrest and cardiac arrest were discussed. Consequences from these could result in hospital stay, surgicalintervention, pain and suffering, inability to engaging gainful employment for short or mcc and even leading to permanent disability and/or . Failure to accomplish the intent of the procedure or failure to accomplish certain aspect of the procdure was reviewed. The possible need for serial endoscopic procedure was reviewed. Risk of aspiration and consequent pneumonia, respiratory issues, injury to mouth, teeth gums, and throat were discussed. Patient/family understands the risks and consents to go ahead with the procedure. The patient/family was given opportunity to ask questions. The patient's questions were answered to their satisfaction. Procedure Plan: Based on the above assessment, we will perform the procedures indicated above. When the assessment above was not obtained immediately before the procedure, I have reassessed this patient and there are no changes. Joseph Basilio documented in this encounter Plan of Treatment Upcoming Encounters Date Type Department Care Team (Late st Contact Info) Description 06/02/2024 10:30 AM DRUG ROOM CLERK Office Visit [facility] - Orthopedic Surgery [address] [place] [phone] Kevin Britton MD [address] [facility] [address] [place] [address] 08/10/2024 1:00 PM CDT Office Visit [facility] - ENGINEER DESIGN AND CONSTRUCTION [address] [facility] [address] [place] [phone] Daja Mir MD [address] [place] [address] 10/26/2024 1:00 PM CDT Office Visit [facility] - Hematology/Oncology [address] [place] [phone] Elizabeth Garcia MD [address] [facility] [address] [place] [address] 01/17/2025 12:30 PM CDT Procedure visit [facility] - GI [address] [place] [phone] 01/17/2025 1:00 PM CDT Office Visit [facility] - GI [address] [place] [phone] Marlena Mccoy, CHARGE WEIGHER-COMPUTER PROGRAMMER ANALYST [address] [place] [address] [place] [address] [place] [address] documented as of this encounter Goals Goal Patient Goal Type Associated Problems Recent Progress Patient-Stated? Author Mobility General On track( 021 9:08 AM DRUG ROOM CLERK) No Tika Pope, RN Note: Expected end date: 05/05/2019 The goal is to maintain or improve your mobility at the optimum level for you. Interventions: Medication Management General On track( 022 9:48 AM CDT) No Saba Bailey RN Note: Expected end date: Ongoing Interventions: Take all medications as prescribed Let your doctor know right away about any changes in your medications Make sure to request a refill of your medication at least one week prior to your last dose documented as of this encounter Procedures Procedure Name Priority Date/Time Associated Diagnosis Comments PATHOLOGY TISSUE Routine 02/03/2024 8:26 AM CDT History of colon polyps [place] COLOR[place] CANC SCRN,COLONOSCPY HI RISK 02/03/2024 7:59 AM CDT History of colon polyps Special Needs COLONOSCOPY Received: Yesterday Jerry Jaime RN Johnson, Sarah N., RN HI Sarah! Please eval when this pt can be scheduled for procedure(requesting Dr Carpio, says she had him previously). Thanks! Received Date Received Time Dec 18, 2023 2:40 PM ENDOSCOPY, COLON, SCREENING Routine 02/03/2024 7:25 AM CDT documented in this encounter Results * PATHOLOGY TISSUE (02/03/2024 8:26 AM CDT) Case Report Surgical Pathology Report ? Case: [id number] ? Authorizing Provider: ??Joseph Pathak Collected: ? 02/03/2024 08:26 AM ? MD ? Ordering Location: ? [facility] ?Received: ?02/03/2024 09:44 AM ? Pathologist: ? Danay Velasquez MD ? Specimen: ?Large Intestine, Cecum, ileocecal valve irregular mucosa biopsies ? 02/04/2024 11:09 AM [facility] Final Diagnosis Small intestine, ileocecal valve irregular mucosa, biopsy (A): - Benign ileal mucosa with focal inflammation and reactive changes 02/04/2024 11:09 AM [facility] Microscopic Description and Comment The ileocecal valve irregular mucosa is a single fragment of ileal type mucosa with mild edema and few neutrophils infiltrating the lamina propria and focally infiltrating the surface epithelium. Such mild inflammation and reactive changes is not entirely specific, but may reflect a mild acute self-limited process (e.g. medications such as NSAIDs, mild infection, other). There is no dense lymphoplasmacytic inflammation or cryptitis evident. There is also no evidence of adenoma or malignancy. 02/04/2024 11:09 AM [facility] Clinical History The patient is a 58-year-old woman who presents for high risk colon cancer surveillance (personal history of colonic polyps). Operative procedure/findings: Colonoscopy - Mild ill-defined irregular mucosa at ileocecal valve, biopsied 02/04/2024 11:09 AM [facility] Gross Description The requisition and specimen(s) are identified with the patient's name Milagros Torres . Received in formalin, specimen A , consists of 0.1 x 0.1 x < 0.1 cm dumont-pink irregular tissue fragment which is submitted in toto in a single cassette labeled A1. RB 02/04/2024 11:09 AM [facility] Pathologist Location at [facility] 02/04/2024 11:09 AM [facility] Disclaimer The performance characteristics of all immunohistochemical and indirect immunofluorescence stains (if any) cited in this report were determined by the Histopathology Laboratory of [facility]. Some of these tests were developed by our own laboratory and have not been cleared or approved by the US Food and Drug Administration. The FDA does not require this test to go through premarket FDA review. These tests are used for clinical purposes. They should not be regarded as investigational or for research. This laboratory is certified under the Clinical Laboratory Improvement Amendments (CLIA) as qualified to perform high complexity clinical laboratory testing. This case has been personally reviewed and interpreted by the attending (teaching) pathologist. 02/04/2024 11:09 AM [facility] Embedded Images 02/04/2024 11:09 AM [facility] Biopsy, NOS (Large Intestine, Cecum) 02/03/2024 8:26 AM CDT 02/03/2024 9:44 AM CDT Joseph Basilio MD LAB - PATHOL OGY/CYTOLOGY ORDERABLES [facility] [address] [phone] * Endoscopy, Colon, Screening (02/03/2024 7:25 AM CDT) Report Endoscopy POC Endoscopy Department Report _ Patient Name: Milagros Torres ?Procedure Date: 02/03/2024 7:25 AM ?Date of : 1965 Classification: Outpatient ?Gender: Female Ethnicity: Not or ? Race: White _ Providers: ?Joseph Basilio MD Referring : ? Willis Veras MD; Marlena Mccoy, ?CHARGE WEIGHER; Elizabeth Garcia MD Procedure: ?Colonoscopy Indications: ?High risk colon cancer surveillance: Personal ?history of colonic polyps Medications: ?Monitored Anesthesia Care. See the Anesthesia note ?for documentation of the administered medications. Patient Profile: ?58F here for surveillance colonoscopy. Last exam ?09/2020, 3 subcm TAs removed at the time. Reportedly ?FMH notable for multiple polyps. No [facility] of CRC. Description of Procedure: After I obtained informed consent, the scope was ?passed under direct vision. Throughout the ?procedure, the patient's blood pressure, pulse, and ?oxygen saturations were monitored continuously. The ?Colonoscope was introduced through the anus and ?advanced to the cecum, identified by appendiceal ?orifice and ileocecal valve. The colonoscopy was ?performed without difficulty. The patient tolerated ?the procedure well. The quality of the bowel ?preparation was evaluated using the BBPS ([employer] ?Bowel Preparation Scale) with scores of: Right ?Colon = 3 (entire mucosa seen well with no residual ?staining, small fragments of stool or opaque ?liquid), Transverse Colon = 3 (entire mucosa seen ?well with no residual staining, small fragments of ?stool or opaque liquid) and Left Colon = 3 (entire ?mucosa seen well with no residual staining, small ?fragments of stool or opaque liquid). The total ?BBPS score equals 9. The quality of the bowel ?preparation was good. ? Findings: ? Ill-defined irregular mucosa was found at the ileocecal valve. This was ? biopsied with a cold forceps for histology. ? Multiple small and large-mouthed diverticula were found in the entire ? colon. ? Small non-bleeding internal hemorrhoids were found during retroflexion. ? The exam was otherwise without abnormality on direct and retroflexion ? views. ? The perianal and digital rectal examinations were normal. ? Estimated Blood Loss: ? Estimated blood loss was minimal. Complications: ?No immediate complications. Impression: ? - Mild ill-defined irregular mucosa at the ?ileocecal valve, biopsied. ?- Diverticulosis throughout the entire colon. ?- Small non-bleeding internal hemorrhoids. Moderate Sedation: ? . Recommendation: ? - Monitor for fevers, bleeding, pain. ?- Resume previous diet as tolerated. ?- Resume previous medications today. ?- Follow-up pathology / biopsy results. Further ?management accordingly. ?- Follow-up with primary care / referring ?providers. Should plan for repeat Colonoscopy in 5 ?years unless sooner if determined by today's biopsy ?results. ?- The potential complications and concerning ?symptoms/finding s, including but not limited to ?early or delayed fevers, infection, pain, bleeding, ?perforation, were discussed with the ?patient/caregive r. Emergency contact information ?was provided. ? Attending Participation: ??I was present and participated during the entire ?procedure, including non-huertas portions. ? Procedure Code(s): ? --- Professional --- ? 37291, Colonoscopy, flexible; with biopsy, single or multiple Diagnosis Code(s): ?--- Professional --- ?Z86.010, Personal history of colonic polyps ?K63.89, Other specified diseases of intestine ?K64.8, Other hemorrhoids ?K57.30, Diverticulosis of large intestine without ?perforation or abscess without bleeding CPT copyright 2021 [employer]. All rights reserved. The codes documented in this report are preliminary and upon organizational effectiveness consultant review may be revised to meet current compliance requirements. Joseph Basilio MD 02/03/2024 8:47:53 AM Note Initiated On: 02/03/2024 7:25 AM Number of Addenda: 0 ? [facility] ? [address] [place], [place] [id number] [place] [address] PROVATION 02/03/2024 7:25 AM CDT Joseph Basilio MD GI PROCEDURE ORDERABLES [facility] documented in this encounter Visit Diagnoses Diagnosis History of colon polyps Personal history of colonic polyps History of colon polyps Personal history of colonic polyps documented in this encounter Administered Medications Inactive Administered Medications - up to 3 most recent administrations Medication Order MAR Action Action Date Dose Rate Site 0.9% NaCl infusion at 20 mL/hr, Intravenous, CONTINUOUS, Starting on Fri02/03/24 at 0715, Until Fri02/03/24 at 1033, Pre-procedure (GI) $ New Bag/Syringe 02/03/2024 7:39 AM CDT 20 mL/h r 0.9% NaCl injection 3 mL 3 mL, Intracatheter, PRE-PROCEDURE MULTIPLE, Starting on Fri02/03/24 at 0702, Until Fri02/03/24 at 1033, For Saline Lock flushes if one is inserted for Bronchoscopy/Endoscopy procedure., Pre-procedure (GI) documented in this encounter Active and Recently Administered Medications Times are shown in CDT. Scheduled Medication Order 02/01/2024 02/02/2024 02/03/2024 0.9% NaCl injection 3 mL 3 mL, Intracatheter, PRE-PROCEDURE MULTIPLE, Starting on Fri02/03/24 at 0702, Until Fri02/03/24 at 1033, For Saline Lock flushes if one is inserted for Bronchoscopy/Endoscopy procedure., Pre-procedure (GI) Continuous Medication Order 02/01/2024 02/02/2024 02/03/2024 0.9% NaCl infusion at 20 mL/hr, Intravenous, CONTINUOUS, Starting on Fri02/03/24 at 0715, Until Fri02/03/24 at 1033, Pre-procedure (GI) 0739 ($ New Bag/Syri nge - Provider: Miranda Laura RN)[phone] (Stopped - Provider: Darlene Carias APRN-COMMUNITY ARTS CENTRE MANAGER) documented in this encounter Care Teams Methods Specialist Relationship Specialty Start Date End Date Willis Veras MD [address] [place] [address] PCP - General 05/03/21 Cole Ku MD [address] OF [facility] [place] [phone] General Surgery 11/10/20 Elizabeth Garcia MD [address] [address] Hematology and Oncology 10/21/23 documented as of this encounter
--- OUTSIDE RECORDS SUMMARY | 2024-04-25 13:52 | XMS_ITS | Encounter Summary ---
Author Organization [facility] Health Address [address] [facility] [place] [address] Care Team Providers Care Provider Relations Rep Name Role Phone Cole Ku MD Unavailable Willis Veras MD Primary Care Provider Elizabeth Garcia MD Unavailable [phone] Encounter Details Date Type Department Care Team (Late st Contact Info) Description 01/19/2024 Orders Only [facility] [address] [place] [phone] Jaelyn Hobbs RN Social History Tobacco Use Types Packs/Day Years [...] on file documented as of this encounter Functional Status Functional Status Response Date of Assess ment Is person deaf or have serious hearing difficult y? No 12/05/2020 Is person blind or have serious difficulty seein g? No 12/05/2020 Does person have serious dif ficulty walking/climbing stairs? No 12/05/2020 Does person have difficulty dressing/bathing? No 12/05/2020 Does person have difficulty doing errands alone? No 12/05/2020 Cognitive Status Response Date of Assessm ent Does person have difficulty concentrating/remembering/making decisions? No 12/05/2020 documented as of this encounter Plan of Treatment Upcoming Encounters Date Type Department Care Team (Late st Contact Info) Description 06/02/2024 10:30 AM PREFITTER Office Visit [facility] - Orthopedic Surgery [address] [place] [phone] Kevin Britton MD [address] [facility] [address] [place] [address] 08/10/2024 1:00 PM CDT Office Visit [facility] - SAND SLINGER 10[address] [facility] 400 [place] [phone] Daja Mir MD [address] [place] [address] 10/26/2024 1:00 PM CDT Office Visit [facility] - Hematology/Oncology [address] [place] [phone] Elizabeth Garcia MD [address] [facility] 3 [place] [address] 01/17/2025 12:30 PM CDT Procedure visit [facility] - GI [address] [place] [phone] 01/17/2025 1:00 PM CDT Office Visit [facility] - GI [address] [place] [phone] Marlena Mccoy, DENTAL OFFICE COORDINATOR-BARREL REPAIRER [address] [place] [address] documented as of this encounter Goals Goal Patient Goal Type Associated Problems Recent Progress Patient-Stated? Author Mobility General On track( 021 9:08 AM PREFITTER) No Tika Pope, RN Note: Expected end date: 05/05/2019 The goal is to maintain or improve your mobility at the optimum level for you. Interventions: Medication Management General On track( 022 9:48 AM CDT) No Saba Bailey, SABRINA Note: Expected end date: Ongoing Interventions: Take all medications as prescribed Let your doctor know right away about any changes in your medications Make sure to request a refill of your medication at least one week prior to your last dose documented as of this encounter Visit Diagnoses Not on filedocumented in this encounter Care Teams Provider Relations Rep Relationship Specialty Start Date End Date Willis Veras MD [address] [place] [address] PCP - General 05/03/21 Cole Ku MD [address] [place] [address] General Surgery 11/10/20 Elizabeth Garcia MD [address] [facility] 3 [place] [address] Hematology and Oncology 10/21/23 documented as of this encounter
--- OUTSIDE RECORDS SUMMARY | 2024-04-25 13:52 | XMS_ITS | Encounter Summary ---
Author Organization [facility] Address [address] [facility] [place] [address] Care Team Providers Care International Tax Manager Name Role Phone Cole Ku MD Unavailable Willis Veras MD Primary Care Provider Elizabeth Garcia MD Unavailable [phone] Reason for Referral * Laboratory Services (Routine) - Open Specialty Diagnoses / Procedures Referred By Contlicha t Referred To Contact Diagnoses Family history of hemochromatosis Procedures HEMOCHROMATOSIS MUTATION PANEL Marlena Mccoy APRN-CNP [address] [place] [address] [address] [place] [address] Referral ID Status Reason Start Date Expiration Date Visits Re quested Visits Authorized [id number] Open 04/08/2024 04/08/2025 1 1 ER HELPER Encounter Details Date Type Department Care Team (Late st Contact Info) Description 04/08/2024 Orders Only [facility] - GI [address] [facility] [place] [phone] Marlena Mccoy APRN-CNP [address] [place] [address] [address] [place] [address] Family history of hemochromatosis Social History Tobacco Use Types Packs/Day Years [...] No 02/03/2024 documented as of this encounter Plan of Treatment Upcoming Encounters Date Type Department Care Team (Late st Contact Info) Description 06/02/2024 10:30 AM MILLER HELPER Office Visit [facility] - Orthopedic Surgery [address] [place] [address] Kevin Britton MD 10[address] [facility] 280 [place] [address] 08/10/2024 1:00 PM CDT Office Visit [facility] - PERSONNEL CLERKS SUPERVISOR 10[address] [facility] 400 [place] [address] Daja Mir MD [address] [facility] [place] [address] 10/26/2024 1:00 PM CDT Office Visit [facility] - Hematology/Oncology [address] [place] [phone] Elizabeth Garcia MD [address] [facility] 3 [place] [address] 01/17/2025 12:30 PM CDT Procedure [place] [facility] [place] [address] [place] [address], [place] [phone] 01/17/2025 1:00 PM CDT Office Visit [facility] - GI [address] [place] [address], [place] [phone] Marlena Mccoy, GAUGER CHIEF-BOTTLE TESTER [address] [place] [address] [facility] [place] [address] documented as of this encounter Goals Goal Patient Goal Type Associated Problems Recent Progress Patient-Stated? Author Mobility General On track( 021 9:08 AM MILLER HELPER) No Tika Pope, SABRINA Note: Expected end date: 05/05/2019 The goal is to maintain or improve your mobility at the optimum level for you. Interventions: Medication Management General On track( 022 9:48 AM CDT) No Saba Bailey, RN Note: Expected end date: Ongoing Interventions: Take all medications as prescribed Let your doctor know right away about any changes in your medications Make sure to request a refill of your medication at least one week prior to your last dose documented as of this encounter Procedures Procedure Name Priority Date/Time Associated Diagnosis Comments HEMOCHROMATOSIS MUTATION PANEL Routine 04/12/2024 9:44 AM MILLER HELPER Family history of hemochromatosis CBC W AUTO DIFFERENTIAL Routine 04/12/2024 9:44 AM MILLER HELPER Family history of hemochromatosis COMPREHENSIVE METABOLIC PANEL Routine 04/12/2024 9:44 AM MILLER HELPER Family history of hemochromatosis IRON + TIBC PANEL Routine 04/12/2024 9:4 4 AM MILLER HELPER Family history of hemochromatosis FERRITIN Routine 04/12/2024 9:44 AM MILLER HELPER Family history of hemochromatosis documented in this encounter Results * HEMOCHROMATOSIS MUTATION PANEL (04/12/2024 9:44 AM MILLER HELPER) DNA Mutation Analysis See Below [facility] Comment: RESULT: POSITIVE FOR 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 This patient is negative for the H63D pathogenic variant. Individuals with this genotype may have elevated serum transferrin iron saturation levels. This result reduces the likelihood of hereditary hemochromatosis (HH). However, it does not rule out the presence of other pathogenic variants within the HFE gene or a diagnosis of HH. The risk of this individual to carry an HFE pathogenic variant other than those tested in this assay depends greatly on family and clinical history as well as ethnicity. This assay does not test for other primary or secondary iron overload disorders. Consider genetic counseling and DNA testing for at-risk family members. Laboratory results and submitted clinical information reviewed by Lacie Sue, Ph.D., [facility]. DETAILED ASSAY INFORMATION: Hereditary hemochromatosis (HH) is an autosomal recessive disorder of iron metabolism that can result in iron overload and potential organ failure. It is one of the most common genetic disorders in individuals of - ancestry, with an estimated carrier frequency of 10%. HH is caused by pathogenic variants in the HFE gene. Most individuals with HH (60-90%) are homozygous for the C282Y pathogenic variant. A smaller percentage of affected individuals are either compound heterozygous for the C282Y and H63D pathogenic variants (3%-8%), or homozygous for the H63D pathogenic variant (approximately 1%). METHODOLOGY: This assay detects two pathogenic variants in the HFE gene, C282Y (NM 317641.2: c.845G>A, p.Vzv114Xit) and H63D (NM 895573.2: c.187C>G, p.Xxc12Hwp), that are commonly associated with HH. These variants are detected by multiplex-polymerase chain reaction (PCR) amplification, followed by restriction enzyme digestion and capillary electrophoresis. LIMITATIONS: This assay does not detect other pathogenic variants in the HFE gene that may be associated with HH. Although rare, false positive or false negative results may occur. All results should be interpreted in the context of clinical findings, relevant history, and other laboratory data. Health care providers, please contact your local [facility]' genetic counselor or call [phone] ( ) for assistance with the interpretation of these results. This test was developed and its analytical performance characteristics have been determined by [facility]. It has not been cleared or approved by FDA. This assay has been validated pursuant to the CLIA regulations and is used for clinical purposes. For more information, please refer to http://education.[employer]faq/hemochromatosis. (This link is being provided for informational/educational purposes only.) A portion of the testing was performed at [facility] [place] [place]. Reviewed and signed by Laboratory results and submitted clinical information reviewed by Lacie Sue, Ph.D., [facility], Signed on 04/22/2024 at 18:28 Test Performed at: [facility] [facility] [facility] [address] [place], [place] ??[address] PAULO HINDS MD,PHD,CARLOS Blood BLOOD SPECIMEN / Unknown 04/12/2024 9:44 AM MILLER HELPER 04/12/2024 9:44 AM MILLER HELPER Marlena Mccoy GAUGER CHIEF-BOTTLE TESTER LAB - CHEMI STRY ORDERABLES [facility] [address] [place] [address] * IRON + TIBC PANEL (04/12/2024 9:44 AM MILLER HELPER) Iron 158 45 - 160 mcg/dL [facility] TIBC 373 250 - 450 mcg/dL (calc) [facility] % Saturation 42 16 - 45 % (calc) [facility] Comment: Test Performed at: [facility] [place] [address] [place], [place] ??[address] KANE WAN MD Blood BLOOD SPECIMEN / Unknown 04/12/2024 9:44 AM MILLER HELPER 04/12/2024 9:44 AM MILLER HELPER Marlena Mccoy APRN-BOTTLE TESTER LAB - CHEMI STRY ORDERABLES Performing Organization Address [facility] de Phone Number [facility] [address] [place] [address] * FERRITIN (04/12/2024 9:44 AM MILLER HELPER) Pathologist [facility] Ferritin 95 16 - 232 ng/mL [facility] Comment: Test Performed at: [facility] [address] [place], [place] ??[phone] KANE WAN MD Blood BLOOD SPECIMEN / Unknown 04/12/2024 9:44 AM MILLER HELPER 04/12/2024 9:44 AM MILLER HELPER Marlena Mccoy APRN-BOTTLE TESTER LAB - CHEMI STRY ORDERABLES Performing Organization Address [facility] de Phone Number [facility] [phone] [place] [address] * (ABNORMAL) COMPREHENSIVE METABOLIC PANEL (04/12/2024 9:44 AM MILLER HELPER) Pathologist [facility] Glucose 106(H) 65 - 99 mg/dL [facility] Comment: ? Fasting reference interval For someone without known diabetes, a glucose value between 100 and 125 mg/dL is consistent with prediabetes and should be confirmed with a follow-up test. BUN 13 7 - 25 mg/dL [facility] Creatinine 0.91 0.50 - 1.03 mg/dL [facility] eGFR by Cystatin C 73 > OR = 60 mL/min/1. 73m2 [facility] BUN/Creatinine Ratio SEE NOTE: (calc) [facility] Comment: ?? Not Reported: BUN and Creatinine are within ?? reference range. ? Sodium 140 135 - 146 mmol/L [facility] Potassium 3.7 3.5 - 5.3 mmol/L [facility] Chloride 104 98 - 110 mmol/L [facility] CO2 29 20 - 32 mmol/L [facility] Calcium 9.5 8.6 - 10.4 mg/dL [facility] Protein Total 7.4 6.1 - 8.1 g/dL [facility] Albumin 4.4 3.6 - 5.1 g/dL [facility] Globulin Total 3.0 1.9 - 3.7 g/dL (calc) [facility] Albumin/Globulin Ratio 1.5 1.0 - 2.5 (calc) [facility] Bilirubin Total 0.7 0.2 - 1.2 mg/dL [facility] Alkaline Phosphatase 105 37 - 153 U/L [facility] AST 38(H) 10 - 35 U/L [facility] ALT 48(H) 6 - 29 U/L [facility] Comment: Test Performed at: [facility] [address] [place] ??[phone] KANE WAN MD Blood BLOOD SPECIMEN / Unknown 04/12/2024 9:44 AM MILLER HELPER 04/12/2024 9:44 AM MILLER HELPER Marlena Mccoy GAUGER CHIEF-BOTTLE TESTER LAB - CHEMI STRY ORDERABLES [facility] [address] [place] [address] * CBC WITH DIFFERENTIAL (04/12/2024 9:44 AM MILLER HELPER) White Blood Cell Count 7.4 3.8 - 10.8 Thousand/u L [facility] RBC 4.23 3.80 - 5.10 Million/uL [facility] Hemoglobin 12.9 11.7 - 15.5 g/dL [facility] Hematocrit 40.2 35.0 - 45.0 % [facility] MCV 95.0 80.0 - 100.0 fL [facility] MCH 30.5 27.0 - 33.0 pg [facility] MCHC 32.1 32.0 - 36.0 g/dL [facility] Comment: For adults, a slight decrease in the calculated MCHC value (in the range of 30 to 32 g/dL) is most likely not clinically significant; however, it should be interpreted with caution in correlation with other red cell parameters and the patient's clinical condition. RDW 13.2 11.0 - 15.0 % [facility] Platelet Count 173 140 - 400 Thousand/u L [facility] MPV 11.6 7.5 - 12.5 fL [facility] Neutrophil Absolute 4529 1500 - 7800 cells/uL [facility] Lymphocytes Absolute 2220 850 - 3900 cells/uL [facility] Absolute Monocytes 533 200 - 950 cells/uL [facility] Eosinophils Absolute 89 15 - 500 cells/uL [facility] Basophils Absolute 30 0 - 200 cells/uL [facility] Granulocytes % 61.2 % [facility] Lymphocytes % 30.0 % [facility] Monocytes % 7.2 % [facility] Eosinophils % 1.2 % [facility] Basophils % 0.4 % [facility] Comment: Test Performed at: [facility] [place] [address] [place], [place] ??[address] KANE WAN MD Blood BLOOD SPECIMEN / Unknown 04/12/2024 9:44 AM MILLER HELPER 04/12/2024 9:44 AM MILLER HELPER Marlena Mccoy GAUGER CHIEF-BOTTLE TESTER LAB - HEMAT OLOGY ORDERABLES [facility] [address] [place] [address] documented in this encounter Visit Diagnoses Diagnosis Family history of hemochromatosis- Primary Family history of other endocrine and metabolic diseases documented in this encounter Care Teams International Tax Manager Relationship Specialty Start Date End Date Willis Veras MD [address] [place] [address] PCP - General 05/03/21 Cole Ku MD [address] [place] [phone] General Surgery 11/10/20 Elizabeth Garcia MD [address] [facility] 3 [place] [address] Hematology and Oncology 10/21/23 documented as of this encounter
--- OUTSIDE RECORDS SUMMARY | 2024-04-25 13:52 | XMS_ITS | Encounter Summary ---
Author Organization [facility] Address [address] [place] [address] Care Team Providers Care Compensation Specialist Name Role Phone Cole Ku MD Unavailable Willis Veras MD Primary Care Provider Elizabeth Garcia MD Unavailable Reason for Visit * Auth/Cert (Routine) Specialty Diagnoses / Procedures Referred By Contac t Referred To Contact Diagnoses History of colon polyps Procedures [facility] CAN[facility] SCRN,COLONOSCPY HI RISK COLONOSCOPY SCREEN w/ curt COLONOSCOPY SCREEN Referral ID Status Reason Start Date Expiration Date Visits Re quested Visits Authorized [id number] 1 1 Encounter Details Date Type Department Care Team (Latest Contact Info) Description 02/03/2024 6:56 AM CDT - 02/03/2024 9:32 AM CDT Hospital Encounter [facility] [address] [place] [phone] Joseph Pathak MD [address] [facility] 2L [place] [address] Surgery General Discharge Disposition: Home or Self Care Social History Tobacco Use Types Packs/Day Years [...] Sign Reading Time Taken Comments Blood Pressure 117/71 02/03/2024 9:15 AM CDT Pulse 59 02/03/2024 9:15 AM CDT Temperature 36.4 ??C (97.6 ??F) 02/03/2024 8:45 AM CD T Respiratory Rate 14 02/03/2024 9:15 AM CDT Oxygen Saturation 97% 02/03/2024 9:15 AM CDT Inhaled Oxygen Concentration - - [...] ask them during your visits. ?? Copyright [employer] 2020 Information is for End User's use only and may not be sold, redistributed or otherwise used for commercial purposes. All illustrations and images included in CareNotes?? are the copyrighted property of [employer]. or [employer] The above information is an corrective therapy aide teacher only. It is not intended as medical [...] 1 (one) tablet by mouth once daily Fontana-3 Fatty Acids (fish oil) 1000 MG capsule [...] daily 07/02/2023 Vitamin D3, cholecalciferol, 50 MCG (2000 UT) tabletIndications:Vitamin D deficiency, unspecified Take 1 tablet [...] Curt ??? Dilation and Curettage 2016 and 2018 for PMB in the s/o tamoxifen use [...] results for input(s): CRP in the last 58035 hours. 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 and even leading to permanent disability and/or [...] st Contact Info) Description 06/02/2024 10:30 AM DESULPHURING OPERATOR Office Visit [facility] Physician [facility] - Orthopedic Surgery [facility] [place] [phone] Kevin Britton MD 10[address] [facility] [address] [place] [address] 08/10/2024 1:00 PM CDT Office Visit [facility] Physician Group - APPLICATIONS SUPPORT ENGINEER [address] [facility] [address] [place] [phone] Daja Mir MD [address] [facility] [place] [address] 10/26/2024 1:00 PM CDT Office Visit [facility] - Hematology/Oncology [address] [place] [phone] Elizabeth Garcia MD 3665 [facility]3] 3 [place] [address] 01/17/2025 12:30 PM CDT Procedure visit [facility] [place] [address] [place] [address], [place] [phone] 01/17/2025 1:00 PM CDT Office Visit [facility]ician Group - GI [address] [place] [address], [place] [phone] Marlena Mccoy, EXAMINING CHAIR ASSEMBLER-HYDRAULIC SPECIALIST [address] [place] [address] [facility] [place] [address] documented as of this encounter Goals Goal Patient Goal Type Associated Problems Recent Progress Patient-Stated? Author Mobility General On track( 021 9:08 AM DESULPHURING OPERATOR) No Tika Pope, SABRINA Note: Expected end date: 05/05/2019 The goal is to maintain or improve your mobility at the optimum level for you. Interventions: Medication Management General On track( 022 9:48 AM CDT) Saba Barrera, RN Note: Expected end date: Ongoing Interventions: [...] 8:26 AM CDT History of colon polyps [facility] CANC SCRN,COLONOSCPY HI RISK 02/03/2024 7:59 AM CDT History of colon polyps Special Needs COLONOSCOPY Received: Yesterday Jerry Jaime, [...] Case Report Surgical Pathology Report ? Case: [id number] ? Authorizing Provider: ??Joseph Pathak Collected: ? 02/03/2024 08:26 AM ? MD ? Ordering Location: ? [facility] ?Received: ?02/03/2024 09:44 AM ? Pathologist: ? Danay Velasquez MD ? Specimen: ?Large Intestine, Cecum, ileocecal valve irregular mucosa biopsies ? 02/04/2024 11:09 AM [facility] Final Diagnosis Small intestine, ileocecal valve irregular mucosa, biopsy (A): - Benign ileal mucosa with focal inflammation and reactive changes 02/04/2024 11:09 AM [facility] Microscopic Description and Comment The [...] of adenoma or malignancy. 02/04/2024 11:09 AM [facility] Clinical History The patient is a 58-year-old woman who presents for high risk colon cancer surveillance (personal history of colonic polyps). Operative procedure/findings: Colonoscopy - Mild ill-defined irregular mucosa at ileocecal valve, biopsied 02/04/2024 11:09 AM [facility] Gross Description The requisition and specimen(s) are identified with the patient's name Milagros Torres . Received in formalin, specimen A , consists of 0.1 x 0.1 x < 0.1 cm dumont-pink irregular tissue fragment which is submitted in toto in a single cassette labeled A1. RB 02/04/2024 11:09 AM [facility] Pathologist Location at [facility] 02/04/2024 11:09 AM [facility] Disclaimer The performance characteristics of all immunohistochemical and indirect immunofluorescence stains (if any) cited in this report were determined by the Histopathology Laboratory of [facility]. Some of these tests were developed [...] the attending (teaching) pathologist. 02/04/2024 11:09 AM CDT [facility] Embedded Images 02/04/2024 11:09 AM CDT [facility] Biopsy, NOS (Large Intestine, Cecum) 02/03/2024 8:26 AM CDT 02/03/2024 9:44 AM CDT Joseph Basilio MD LAB - PATHOL OGY/CYTOLOGY ORDERABLES Performing Organization Address City/State/[facility] de Phone Number [facility] [address] [phone] * Endoscopy, Colon, Screening (02/03/2024 7:25 AM CDT) Report Endoscopy POC Endoscopy Department Report _ Patient Name: Milagros Torres ?Procedure Date: 02/03/2024 7:25 AM ?Date of : 1965 Classification: Outpatient ?Gender: Female Ethnicity: Not or ? Race: White _ Providers: ?Joseph Basilio MD Referring : ? Willis Veras MD; Marlena Mccoy, ?EXAMINING CHAIR ASSEMBLER; Elizabeth Garcia MD Procedure: ?Colonoscopy Indications: ?High [...] bowel ?preparation was evaluated using the BBPS ([place] ?Bowel Preparation Scale) with scores of: Right [...] Procedure Code(s): ? --- Professional --- ? 91135, Colonoscopy, flexible; with biopsy, single or multiple Diagnosis Code(s): ?--- Professional --- ?Z86.010, Personal history of colonic polyps ?K63.89, Other specified diseases of intestine ?K64.8, Other hemorrhoids ?K57.30, Diverticulosis of large intestine without ?perforation or abscess without bleeding CPT copyright 2022 [employer]. All rights reserved. The codes documented in this report are preliminary and upon boatwright review may be revised to meet current compliance requirements. Joseph Basilio MD 02/03/2024 8:47:53 AM Note Initiated On: 02/03/2024 7:25 AM Number of Addenda: 0 ? [facility] ? [address] [place] [address] [facility] 02/03/2024 7:25 AM CDT Joseph Basilio MD GI PROCEDURE ORDERABLES [facility] documented in this encounter Visit Diagnoses Diagnosis History of colon polyps Personal history of colonic polyps documented in this encounter Administered Medications Inactive Administered Medications - up to 3 most recent administrations Medication Order MAR Action Action Date Dose Rate Site 0.9% NaCl infusion at 20 mL/hr, Intravenous, CONTINUOUS, Starting on 02/03/24 at 0715, Until 02/03/24 at 1033, Pre-procedure (GI) $ New Bag/Syringe 02/03/2024 7:39 AM CDT 20 mL/h r 0.9% NaCl injection 3 mL 3 mL, Intracatheter, PRE-PROCEDURE MULTIPLE, Starting on 02/03/24 at 0702, Until 02/03/24 at 1033, For Saline Lock flushes if one is inserted for Bronchoscopy/Endoscopy procedure., Pre-procedure (GI) documented in this encounter Active and Recently Administered Medications Times are shown in CDT. Scheduled Medication Order 02/01/2024 02/02/2024 02/03/2024 0.9% NaCl injection 3 mL 3 mL, Intracatheter, PRE-PROCEDURE MULTIPLE, Starting on 02/03/24 at 0702, Until 02/03/24 at 1033, For Saline Lock flushes if one is inserted for Bronchoscopy/Endoscopy procedure., Pre-procedure (GI) Continuous Medication Order 02/01/2024 02/02/2024 02/03/2024 0.9% NaCl infusion at 20 mL/hr, Intravenous, CONTINUOUS, Starting on 02/03/24 at 0715, Until 02/03/24 at 1033, Pre-procedure (GI) 0739 ($ New Bag/Syri nge - Provider: Miranda Laura RN)[phone] (Stopped - Provider: Dalrene Carias APRN-DULCE) documented in this encounter Care Teams Compensation Specialist Relationship Specialty Start Date End Date Willis Veras MD [address] [place] [phone] PCP - General 05/03/21 Cole Ku MD [address] [place] [phone] General Surgery 11/10/20 Elizabeth Garcia MD [address] [address] Hematology and Oncology 10/21/23 documented as of this encounter
--- OUTSIDE RECORDS SUMMARY | 2024-04-25 13:52 | XMS_ITS | Encounter Summary ---
Author Organization [facility] Address [address] [place] [address] Care Team Providers Care Dispute Specialist Name Role Phone Cole Ku MD Unavailable Willis Veras MD Primary Care Provider Elizabeth Garcia MD Unavailable [phone] Encounter Details Date Type Department Care Team (Latest Contact Info) Description 02/03/2024 Travel Social History Tobacco Use Types Packs/Day Years [...] st Contact Info) Description 06/02/2024 10:30 AM INSULATION CUPOLA CHARGER Office Visit [facility] - Orthopedic Surgery [address] [place] [phone] Kevin Britton MD 1031 [facility] [address] [place] [address] 08/10/2024 1:00 PM CDT Office Visit [facility] Physician Group - PLASTER MECHANIC 10[address] [facility] [address] [place] [phone] Daja Mir MD [address] [place] [address] 10/26/2024 1:00 PM CDT Office Visit [facility] - Hematology/Oncology [address] [place] [phone] Elizabeth Garcia MD [address] [facility] 3 [place] [address] 01/17/2025 12:30 PM CDT Procedure visit [facility] Physician [facility] - GI [address] [place] [phone] 01/17/2025 1:00 PM CDT Office Visit [facility] - GI [address] [place] [phone] Marlena Mccoy, CERTIFIED NOVELL ENGINEER-MANAGER [employer] [address] [place] [address] [address] DIV OF GASTROENTEROLOGY [place] [phone] documented as of this encounter Goals Goal Patient Goal Type Associated Problems Recent Progress Patient-Stated? Author Mobility General On track( 021 9:08 AM INSULATION CUPOLA CHARGER) No Tika Pope, RN Note: Expected end date: 05/05/2019 The goal is to maintain or improve your mobility at the optimum level for you. Interventions: Medication Management General On track( 022 9:48 AM CDT) No Saba Bailey, SABRIAN Note: Expected end date: Ongoing Interventions: Take all medications as prescribed Let your doctor know right away about any changes in your medications Make sure to request a refill of your medication at least one week prior to your last dose documented as of this encounter Visit Diagnoses Not on filedocumented in this encounter Care Teams Dispute Specialist Relationship Specialty Start Date End Date Willis Veras MD [address] [place] [address] PCP - General 05/03/21 Cole Ku MD [address] [facility] 2L [place] [address] General Surgery 11/10/20 Elizabeth Garcia MD [address] [facility] 3 [place] [address] Hematology and Oncology 10/21/23 documented as of this encounter
--- OUTSIDE RECORDS SUMMARY | 2024-04-25 13:52 | XMS_ITS | Referral Summary ---
Author Organization [facility] Address [address] [place] [address] Care Team Providers Care Farm Machinery Assembler Name Role Phone Cole Ku MD Unavailable Willis Veras MD Primary Care Provider Elizabeth Garcia MD Unavailable [phone] Source Comments [facility],non-owned Affiliates and Associated Physician Practices is amultiple site organization consisting of ambulatory clinics and hospital sitesin [place], [place], [place] and [place]. This disclosure is being madepursuant to the Care Everywhere program and may not contain all information available regarding this patient. Last updated 18.[facility] Encounters Date Type Department Care Team Description 04/08/2024 Orders Only [facility] - GI [address] [facility], [place] [phone] Marlena Mccoy, PLANT CONTROL OPERATOR-ANIMAL DAMAGE CONTROL AGENT Family history of hemochromatosis 02/03/2024 Travel 02/03/2024 7:45 AM CDT - 02/03/2024 8:35 AM CDT Surgery [facility] [address] [place] [phone] Joseph Pathak MD COLONOSCOPY SCREEN w/ curt 02/03/2024 8:04 AM CDT Anesthesia Event [facility] [address] [place] [phone] Prosper Kuo MD 02/03/2024 6:56 AM CDT - 02/03/2024 9:32 AM CDT Hospital Encounter [facility] OP [address] [place] [address] Joseph Pathak MD Surgery General Discharge Disposition: Home or Self Care from Last 3 Months Allergies No known active allergies Medications * Be aware that medications may not be up to date on this document. Alwaysverify current medications with the patient. Medication Sig Dispensed Refills Start Date End Date Status Vitamin D3, cholecalciferol, 50 MCG (1999) tabletIndications:Vitami n D deficiency, unspecified Take 1 tablet by mouth once daily 90 tablet 2 03/23/2019 Active calcium 600 MG tabletIndications:Vitami n D deficiency, unspecified Take 1 tablet by mouth daily with food 90 tablet 2 03/23/2019 Active losartan - hydroCHLOROthiazide (Hyzaar) 50-12.5 MG tablet Take 1 (one) tablet by mouth once daily Active famotidine (Pepcid) 20 MG tablet Take 1 (one) tablet by mouth once daily 08/06/2022 Active Ludlow-3 Fatty Acids (fish oil) 1000 MG capsule Take by mouth once daily Active celecoxib (CeleBREX) 50 MG capsuleIndications:S/P TKR (total knee replacement), left,Primary osteoarthritis of left knee Take 2 (two) capsules by mouth once daily 180 capsule 11/04/2023 Active losartan (Cozaar) 25 MG tablet Take 1 (one) tablet by mouth once daily 08/04/2023 Active pravastatin (Pravachol) 10 MG half tablet Take 1 (one) Half Tablet by mouth once daily 07/02/2023 Active omeprazole (PriLOSEC) 20 MG capsule Take 1 (one) capsule by mouth once daily 12/31/2023 Active phentermine (Adipex-P) 37.5 MG capsule Take 1 (one) capsule by mouth every 2 days 12/31/2023 Active polyethylene glycol (Golytely) 236 g solution Drink all of the prep at 6pm the night before colonoscopy. Please finish all of the prep before going to bed. 4000 mL 01/19/2024 Active Active Problems Problem Noted Date Diagnosed Date Complex endometrial hyperplasia with atypia 12/2022 S/P total hysterectomy and B SO (bilateral salpingo-oophorectomy) 03/12/2023 S/P total knee arthroplasty, left 02/01/2022 NAFLD (nonalcoholic fatty liver disease) 021 Overview (01/24/2023): 11/10/20 Fibroscan CAP 332, LSM 9.4 kPa 01/17/23 Fibroscan CAP 275, LSM 6.4 kPa Depression 11/17/2015 Anxiety 09/19/2015 Malignant neoplasm of upper- inner quadrant of left breast in female, estrogen receptor positive 07/27/2015 Cancer Staging:Pathologic stage from 09/04/2015:Stage IA(T1c, N0, cM0) - Signed by Elizabeth Garcia MD on 10/21/2023 Benign essential HTN 07/21/2015 Immunizations Name Administration Dates Next Due Covid Pfizer primary monoval ent 12+ yr 0.3mL Purple cap 09/24/2020,08/27/2020 TDAP (7yrs+) 02/06/2019 Social History Tobacco Use Types Packs/Day Years Used Date Smoking Tobacco: Never Smokeless Tobacco: Never Tobacco Cessation:Counseling Given: Not Answered Alcohol Use Standard Drinks/Week Comments Yes 0 [...] on file Sexual Orientation Not on file Last Filed Vital Signs Vital Sign Reading [...] Mass Index 33.66 02/03/2024 7:25 AM CDT Functional Status Functional Status Response Date of [...] person have difficulty concentrating/remembering/making decisions? No 02/03/2024 Plan of Treatment Upcoming Encounters Date Type Department Care Team (Late st Contact Info) Description 06/02/2024 10:30 AM AUTO DAMAGE ESTIMATOR Office Visit [facility] - Orthopedic Surgery [address] [place] [phone] Kevin Britton MD [address] [facility] [address] [place] [address] 08/10/2024 1:00 PM CDT Office Visit [facility] - FACILITY DESIGNER [address] [facility] [address] [place] [address] Daja Mir MD [address] [place] [address] 10/26/2024 1:00 PM CDT Office Visit [facility] - Hematology/Oncology [address] [place] [address] Elizabeth Garcia MD [address] [facility] [address] [place] [address] 01/17/2025 12:30 PM CDT Procedure visit [facility] [place] [address] [place] [address], [place] [phone] 01/17/2025 1:00 PM CDT Office Visit [facility] - GI [address] [place] [address], [place] [phone] Marlena Mccoy, PLANT CONTROL OPERATOR-ANIMAL DAMAGE CONTROL AGENT [address] [place] [address] [address] [place] [address] Goals Goal Patient Goal Type Associated Problems Recent Progress Patient-Stated? Author Mobility General On track( 021 9:08 AM AUTO DAMAGE ESTIMATOR) No Tika Pope, RN Note: Expected end [...] one week prior to your last dose Medical Devices Implanted Type Area Tutor Coordinator Device Identifier Shelf Expiration Date Model / Serial / Lot Ins Tib 3-4 11mm Kn Xlpe Dsh Legion Implanted:Qty: 1 on 02/01/2022 by Kevin Britton MD at [facility] Left: Knee [employer] 06/21/2030 [id number] / / [id number] Cmpnt Fem Kn Lt 5 Crcte Rtn Legion Rondon Implanted:Qty: 1 on 02/01/2022 by Kevin Britton MD at [facility] Left: Knee [employer] 05/26/2031 [id number] / / [id number] Stem Tib 55mm 18mm Prfx Mtphsl Kn Implanted:Qty: 1 on 02/01/2022 by Kevin Britton MD at [facility] Left: Knee [employer] 01/22/2030 [id number] / / [id number] Bsplt Tib Legion 4 Kn Lt Rondon Por Implanted:Qty: 1 on 02/01/2022 by Kevin Britton MD at [facility] Left: Knee [employer] 07/04/2029 [id number] / / [id number] Screw Bsplt 25mm 6.5mm Gns2 Kn Tib Por Implanted:Qty: 1 on 02/01/2022 by Kevin Britton MD at [facility] Left: Knee [employer] 10/22/2030 [id number] / / [id number] Screw Bsplt 20mm 6.5mm Gns2 Kn Tib Por Implanted:Qty: 1 on 02/01/2022 by Kevin Britton MD at [facility] Left: Knee [employer] 09/10/2031 [id number] / / [id number] Screw 6.5mm 30mm Sphrcl Head Hip Actb Implanted:Qty: 1 on 02/01/2022 by Kevin Britton MD at [facility] Left: Knee [employer] 10/03/2031 [id number] / / [id number] Screw Bsplt 30mm 6.5mm Gns2 Kn Tib Por Implanted:Qty: 1 on 02/01/2022 by Kevin Britton MD at [facility] Left: Knee [employer] 10/22/2030 [id number] / / [id number] Liletta Intrauterine System Implanted:Qty: 1 on 10/16/2022 by Cole Garcia MD at [facility] N/A: Uterus [employer] 06/05/2025 [id number] / / [id number] Procedures Procedure Name Priority Date/Time Associated Diagnosis Comments HEMOCHROMATOSIS MUTATION PANEL Routine 04/12/2024 9:44 AM AUTO DAMAGE ESTIMATOR Family history of hemochromatosis IRON + TIBC PANEL Routine 04/12/2024 9:44 AM AUTO DAMAGE ESTIMATOR Family history of hemochromatosis FERRITIN Routine 04/12/2024 9:44 AM AUTO DAMAGE ESTIMATOR Family history of hemochromatosis COMPREHENSIVE METABOLIC PANEL Routine 04/12/2024 9:44 AM AUTO DAMAGE ESTIMATOR Family history of hemochromatosis CBC W AUTO DIFFERENTIAL Routine 04/12/2024 9:44 AM AUTO DAMAGE ESTIMATOR Family history of hemochromatosis PATHOLOGY TISSUE Routine 02/03/2024 8:26 AM CDT History of colon polyps AL COLOREC CANC SCRN,COLONOSCPY HI RISK 02/03/2024 7:59 AM CDT History of colon polyps Special Needs COLONOSCOPY Received: Yesterday Jerry Jaime RN Johnson, SABRINA Gonzales! Please eval when this pt can be scheduled for procedure(requesting Dr Carpio, says she had him previously). Thanks! Received Date Received Time Dec 18, 2023 2:40 PM ENDOSCOPY, COLON, SCREENING Routine 02/03/2024 7:25 AM CDT MAMMO BILAT DIAGNOSTIC W [place] Routine 10/09/2023 2:14 PM CDT Abnormal mammogram HEPATITIS C ANTIBODY Routine 05/12/2020 10:28 AM AUTO DAMAGE ESTIMATOR NAFLD (nonalcoholic fatty liver disease) Elevated liver enzymes from Last 3 Months or Most Recently Relevant to Health Maintenance Results * HEMOCHROMATOSIS MUTATION PANEL (04/12/2024 9:44 AM AUTO DAMAGE ESTIMATOR) DNA Mutation Analysis See Below [facility] Comment: [...] clinical information reviewed by Lacie Sue, Ph.D., [facility]. DETAILED ASSAY INFORMATION: Hereditary hemochromatosis (HH) is [...] variants in the HFE gene, C282Y (NM 010924.2: c.845G>A, p.Vlv926Voo) and H63D (NM 182379.2: c.187C>G, p.Txr76Ssd), that are commonly associated with HH. These [...] Health care providers, please contact your local [facility] genetic counselor or call [phone] ( ) for assistance with the interpretation of these results. This test was developed and its analytical performance characteristics have been determined by [facility]. It has not been cleared or approved by FDA. This assay has been validated pursuant to the CLIA regulations and is used for clinical purposes. For more information, please refer to http://education.Intelen.[employer]/faq/hemochromatosis. (This link is being provided for informational/educational purposes only.) A portion of the testing was performed at [facility]. Reviewed and signed by Laboratory results and submitted clinical information reviewed by Lacie Sue, Ph.D., HCLD, Signed on 04/22/2024 at 18:28 Test Performed at: [facility] [address] [place], [place] ??[address] PAULO HINDS MD,PHD,CARLOS Blood BLOOD SPECIMEN / Unknown 04/12/2024 9:44 AM AUTO DAMAGE ESTIMATOR 04/12/2024 9:44 AM AUTO DAMAGE ESTIMATOR Marlena Mccoy PLANT CONTROL OPERATOR-ANIMAL DAMAGE CONTROL AGENT LAB - CHEMI STRY ORDERABLES Performing Organization Address City/State/[facility] Co de Phone Number [facility] [address] [place] [address] * CBC WITH DIFFERENTIAL (04/12/2024 9:44 AM AUTO DAMAGE ESTIMATOR) White Blood Cell Count 7.4 3.8 - [...] 0.4 % [facility] Comment: Test Performed at: [facility] [address] [place] ??[phone] KANE WAN MD Blood BLOOD SPECIMEN / Unknown 04/12/2024 9:44 AM AUTO DAMAGE ESTIMATOR 04/12/2024 9:44 AM AUTO DAMAGE ESTIMATOR Marlena Mccoy PLANT CONTROL OPERATOR-ANIMAL DAMAGE CONTROL AGENT LAB - HEMAT OLOGY ORDERABLES [facility] [address] [place] [address] * (ABNORMAL) COMPREHENSIVE METABOLIC PANEL (04/12/2024 9:44 AM AUTO DAMAGE ESTIMATOR) Glucose 106(H) 65 - 99 mg/dL [facility] [...] mL/min/1. 73m2 [facility] BUN/Creatinine Ratio SEE NOTE: 6 - 22 (calc) [facility] Comment: ?? Not Reported: BUN [...] 29 U/L [facility] Comment: Test Performed at: [place], [place] ??[address] KANE WAN MD Blood BLOOD SPECIMEN / Unknown 04/12/2024 9:44 AM AUTO DAMAGE ESTIMATOR 04/12/2024 9:44 AM AUTO DAMAGE ESTIMATOR Marlena Mccoy APRN-ANIMAL DAMAGE CONTROL AGENT LAB - CHEMI STRY ORDERABLES Performing Organization Address [facility] de Phone Number [facility] [address] [place] [address] * IRON + TIBC PANEL (04/12/2024 9:44 AM AUTO DAMAGE ESTIMATOR) Iron 158 45 - 160 mcg/dL [facility] TIBC 373 250 - 450 mcg/dL (calc) [facility] % Saturation 42 16 - 45 % (calc) [facility] Comment: Test Performed at: [employer] ??[address] KANE WAN MD Blood BLOOD SPECIMEN / Unknown 04/12/2024 9:44 AM AUTO DAMAGE ESTIMATOR 04/12/2024 9:44 AM AUTO DAMAGE ESTIMATOR Marlena PARRY LAB - CHEMI STRY ORDERABLES Performing Organization Address [facility] de Phone Number [facility] [address] [place] [address] * FERRITIN (04/12/2024 9:44 AM AUTO DAMAGE ESTIMATOR) Ferritin 95 16 - 232 ng/mL [facility] Comment: Test Performed at: [facility] [address] [place], [place] ??[phone] KANE WAN MD Blood BLOOD SPECIMEN / Unknown 04/12/2024 9:44 AM AUTO DAMAGE ESTIMATOR 04/12/2024 9:44 AM AUTO DAMAGE ESTIMATOR Marlena ELLIOTTANIMAL DAMAGE CONTROL AGENT LAB - CHEMI STRY ORDERABLES [facility] [address] [place] [address] * PATHOLOGY TISSUE (02/03/2024 8:26 AM CDT) Case Report Surgical Pathology Report ? Case: [id number] ? Authorizing Provider: ??Joseph Pathak Collected: ? 02/03/2024 08:26 AM ? MD ? Ordering Location: ? [facility] END[facility] ?Received: ?02/03/2024 09:44 AM ? Pathologist: ? Danay Velasquez MD ? Specimen: ?Large Intestine, Cecum, ileocecal valve irregular mucosa biopsies ? 02/04/2024 11:09 AM CDT [facility] LAB Final Diagnosis Small intestine, ileocecal valve irregular mucosa, biopsy (A): - Benign ileal mucosa with focal inflammation and reactive changes 02/04/2024 11:09 AM CDT [facility] LAB Microscopic Description and Comment The [...] of adenoma or malignancy. 02/04/2024 11:09 AM [facility] Clinical History The patient is a 58-year-old woman who presents for high risk colon cancer surveillance (personal history of colonic polyps). Operative procedure/findings: Colonoscopy - Mild ill-defined irregular mucosa at ileocecal valve, biopsied 02/04/2024 11:09 AM [facility] Gross Description The requisition and specimen(s) are identified with the patient's name Milagros Torres . Received in formalin, specimen A , consists of 0.1 x 0.1 x < 0.1 cm dumont-pink irregular tissue fragment which is submitted in toto in a single cassette labeled A1. RB 02/04/2024 11:09 AM [facility] LAB Pathologist Location at [facility] 02/04/2024 11:09 AM [facility] Disclaimer The performance characteristics of all immunohistochemical and indirect immunofluorescence stains (if any) cited in this report were determined by the Histopathology Laboratory of [facility]. Some of these tests were developed by [...] the attending (teaching) pathologist. 02/04/2024 11:09 AM [facility] Embedded Images 02/04/2024 11:09 AM [facility] LAB Biopsy, NOS (Large Intestine, Cecum) 02/03/2024 8:26 AM CDT 02/03/2024 9:44 AM CDT Joseph Basilio MD LAB - PATHOL OGY/CYTOLOGY ORDERABLES [facility] [address] [place] [address], [facility] [phone] * Endoscopy, Colon, Screening (02/03/2024 7:25 AM CDT) Report Endoscopy POC Endoscopy Department Report _ Patient Name: Milagros Torres ?Procedure Date: 02/03/2024 7:25 AM ?Date of : 1965 Classification: Outpatient ?Gender: Female Ethnicity: Not or ? Race: White _ Providers: ?Joseph Basilio MD Referring MD: ? Willis Veras MD; Marlena Mccoy, ?PLANT CONTROL OPERATOR; Elizabeth Garcia MD Procedure: ?Colonoscopy Indications: ?High [...] bowel ?preparation was evaluated using the BBPS (Bergen ?Bowel Preparation Scale) with scores of: Right [...] Procedure Code(s): ? --- Professional --- ? 32468, Colonoscopy, flexible; with biopsy, single or multiple Diagnosis Code(s): ?--- Professional --- ?Z86.010, Personal history of colonic polyps ?K63.89, Other specified diseases of intestine ?K64.8, Other hemorrhoids ?K57.30, Diverticulosis of large intestine without ?perforation or abscess without bleeding CPT copyright 2021 [employer]. All rights reserved. The codes documented in this report are preliminary and upon inpatient coder review may be revised to meet current compliance requirements. Joseph Basilio MD 02/03/2024 8:47:53 AM Note Initiated On: 02/03/2024 7:25 AM Number of Addenda: 0 ? [facility] ? [address] [place] [address] [facility] 02/03/2024 7:25 AM CDT Joseph Basilio MD GI PROCEDURE ORDERABLES [facility] * MAMMO BILAT DIAGNOSTIC W [place] (10/09/2023 2:14 PM CDT) Anatomical Region Laterality Modality Breast Bilateral Mammography 10/09/2023 2:23 PM CDT Impressions 10/09/2023 5:28 PM CDT : No bilateral mammographic or targeted left breast sonographic evidence of malignancy. RECOMMENDATION: ??Screening mammography recommended in one year, pending no interval breast concerns. Dr. Bueno discussed the examination findings and recommendations with the patient at the time of the examination. OVERALL ASSESSMENT: ??BI-RADS CATEGORY 2: BENIGN. > Interpreting Provider: Germaine Bueno MD on 10/09/2023 5:28 PM Narrative 10/09/2023 5:28 PM CDT EXAMINATIONS: 1. ??BILATERAL DIGITAL DIAGNOSTIC MAMMOGRAM AND TOMOSYNTHESIS WITH CAD AND 2. ??LIMITED LEFT BREAST ULTRASOUND (COMBINED REPORT) LOCATION: [facility] EXAM DATE: ??10/09/2023 HISTORY: Follow-up to a probably benign finding in the left breast. Probably benign calcifications in the left breast. History of prior left breast conservation therapy in 2016 for breast cancer. Of note, patient notes small subcentimeter area of reddish discoloration along the lower inner aspect of the left breast which she thinks is due to a scratch. This is along the inferior bra line. There is no breast lump. COMPARISON: Prior studies back to 2016, with the most recent dated 04/22/2023. MAMMOGRAM: TECHNIQUE: Diagnostic left mammography was performed. Tomosynthesis (3-D) and reconstructed synthetic 2-D images acquired. Images acquired in the craniocaudal and mediolateral oblique projections. Left true lateral and left true lateral and craniocaudal spot magnification impression views also obtained. A total of 10 images were obtained. Computer-aided detection (CAD) was utilized. ?Scar markers placed on the left breast. ?? BREAST COMPOSITION: Category B: There are scattered areas of fibroglandular density. FINDINGS: ??No suspicious findings or evidence of malignancy bilaterally. Post lumpectomy scar in the superior left breast with benign coarse dystrophic microcalcifications representing fat necrosis. LIMITED LEFT BREAST ULTRASOUND: ? Scanning performed of the medial breast over a small area of redness discoloration along the medial aspect of the left breast. Scanning performed in the 8:00 region. FINDINGS: Targeted exam is normal, without mass. No skin thickening noted. Elizabeth Garcia MD MAMMO ORDERABLES * HEPATITIS C ANTIBODY (05/12/2020 10:28 AM AUTO DAMAGE ESTIMATOR) Hepatitis C Antibody Non-react pura Non-reac tive 05/12/2020 11:54 AM AUTO DAMAGE ESTIMATOR [facility] Comment:Hepatitis C Antibody screen indicates no serologic evidence of past or current infection with Hepatitis C Virus. Patients with unexplained liver disease who are immunocompromised or suspected of having acute Hepatitis C infection may benefit from Nucleic Acid Test (KRISTIAN) for Hepatitis C Viral RNA to confirm Hepatitis C status. Blood BLOOD SPECIMEN / Unknown Lab Venipuncture / Unknown 05/12/2020 10:28 AM AUTO DAMAGE ESTIMATOR 05/12/2020 11:02 AM AUTO DAMAGE ESTIMATOR Marlena Mccoy PLANT CONTROL OPERATOR-ANIMAL DAMAGE CONTROL AGENT LAB - CHEMI STRY ORDERABLES [facility] [address] [place] [address], [facility] [phone] from Last 3 Months or Most Recently Relevant to Health Maintenance Advance Directives * Full Code (Latest Code Status on File) Date Activated Date Inactivated Comments 02/01/2022 11:03 AM 02/02/2022 11:19 AM * Full Code Date Activated Date Inactivated Comments 02/01/2022 5:47 AM 02/01/2022 11:03 AM Care Teams Farm Machinery Assembler Relationship Specialty Start Date End Date Willis Veras MD [address] [place] [address] PCP - General 05/03/21 Cole Ku MD [address] [place] [phone] General Surgery 11/10/20 Elizabeth Garcia MD [address] [address] Hematology and Oncology 10/21/23
--- OUTSIDE RECORDS SUMMARY | 2024-04-25 13:52 | XMS_ITS | Clinical Summary ---
Author Organization [facility] Admittor Address [address] [place] [address] Care Team Providers Care Artistic Director Name Role Phone Cole Ku MD Unavailable Willis Veras MD Primary Care Provider Elizabeth Garcia MD Unavailable [phone] [facility],non-owned Affiliates and Associated Physician Practices is amultiple site organization consisting of ambulatory clinics and hospital sitesin [place], [place], [place] and [place]. This disclosure is being madepursuant to the Care Everywhere program and may not contain all information available regarding this patient. Last updated 18.[facility] Admittor Allergies No known active allergies Medications * [...] tablet by mouth once daily 08/06/2022 Active Madison-3 Fatty Acids (fish oil) 1000 MG capsule [...] MD on 10/21/2023 Benign essential HTN 07/21/2015 Encounters Date Type Department Care Team Description 04/08/2024 Orders Only [facility] - GI [address] [facility], [place] [address] Marlena Mccoy, PROPOSAL REP-TUG BOAT CAPTAIN Family history of hemochromatosis 02/03/2024 8:04 AM CDT Anesthesia Event [facility] [address] [place] [address] Prosper Kuo MD 02/03/2024 7:45 AM CDT - 02/03/2024 8:35 AM CDT Surgery [facility] [address] [place] [address] Joseph Pathak MD COLONOSCOPY SCREEN w/ curt 02/03/2024 6:56 AM CDT - 02/03/2024 9:32 AM CDT Hospital Encounter [facility] [address] [place] [address] Joseph Pathak MD Surgery General Discharge Disposition: Home or Self Care 02/03/2024 Travel from Last 3 Months Immunizations Name Administration Dates Next Due Covid Pfizer primary monoval ent 12+ yr 0.3mL Purple cap 09/24/2020,08/27/2020 TDAP (7yrs+) 02/06/2019 Family History Medical History Relation Name Comments Cancer - Prostate Brother Cancer - Lung Mother Cancer - Breast Sister Relation Name Status Comments Brother Father Mother Sister Social History Tobacco Use Types Packs/Day Years [...] Mass Index 33.66 02/03/2024 7:25 AM CDT Plan of Treatment Upcoming Encounters Date Type Department Care Team (Late st Contact Info) Description 06/02/2024 10:30 AM CARBURETOR REPAIRER Office Visit [facility] - Orthopedic Surgery [address] [place] [phone] Kevin Britton MD [address] [facility] [address] [place] [address] 08/10/2024 1:00 PM CDT Office Visit [facility] - 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 [address] [facility] [address] [place] [phone] Daja Mir MD [address] [facility] [place] [address] 10/26/2024 1:00 PM CDT [facility] - Hematology/Oncology [address] [place] [phone] Elizabeth Garcia MD [address] [facility] [address] [place] [address] 01/17/2025 12:30 PM CDT Procedure visit [facility] - GI [address] [place] [address], [place] [phone] 01/17/2025 1:00 PM CDT Office Visit [facility] - GI [address] [place] [address], [place] [address] Marlena Mccoy, PROPOSAL REP-TUG BOAT CAPTAIN [address] [place] [address] [place] [address] Health Maintenance Due Date Last Done Comments COLOGUARD (AGES 45-75) - COLON CA SCREENING 1965 CT COLONOGRAPHY - COLON CA SCREENING 1965 FIT - COLON CA SCREENING 1965 FLEX SIG - COLON CA SCREENING 1965 HIV SCREENING 07/19/1979 HEPATITIS B VACCINE (1 of 3 - 19+ 3-dose series) 07/19/1983 ZOSTER VACCINE (1 of 2) 2014 DEPRESSION SCREENING 05/05/2023 COVID-19 VACCINE (3 - 2023- season) 2024 09/24/2020, 08/27/2020 INFLUENZA VACCINE (#1) 2024 MAMMOGRAM 10/08/2025 10/09/2023, 04/04, 10/28/2022, Additional history exists SCREENING FOR DIABETES 04/12/2027 , 02/19/2023, 01/07/2023, Additional history exists DTAP/TDAP/TD VACCINES (2 - Td or Tdap) 02/06/2029 02/06/2019 COLON MONITORING 02/02/2034 02/03/2024, 05/2023, 09/18/2020, Additional history exists COLONOSCOPY - COLON CA SCREENING 02/02/2034 02/03/2024, 02/03/2024, 09/18/2020, Additional history exists Colorectal Cancer Screening 02/02/2034 HEPATITIS C SCREENING Completed 05/12/2020 HIB VACCINE Aged Out No longer eligi ble based on patient's age to complete this topic HPV VACCINE Aged Out No longer eligi ble based on patient's age to complete this topic MENINGOCOCCAL VACCINE Aged Out No gin marquita eligible based on patient's age to complete this topic PNEUMOCOCCAL VACCINE Aged Out No long er eligible based on patient's age to complete this topic Goals Goal Patient Goal Type Associated Problems Recent Progress Patient-Stated? Author Mobility General On track( 021 9:08 AM CARBURETOR REPAIRER) No Tika Pope, RN Note: Expected end [...] last dose Medical Devices Implanted Type Area Optical Instrument Inspector Device Identifier Shelf Expiration Date Model / Serial / Lot Ins Tib 3-4 11mm Kn Xlpe Dsh Legion Implanted:Qty: 1 on 02/01/2022 by Kevin Britton MD at [facility] Left: Knee [employer] 06/21/2030 [id number] / / [id number] Cmpnt Fem Kn Lt 5 Crcte Rtn Legion Rondon Implanted:Qty: 1 on 02/01/2022 by Kevin Britton MD at [facility] Left: Knee [employer] 05/26/2031 [id number] / / [id number] Stem Tib 55mm 18mm Prfx Mtphsl Kn Implanted:Qty: 1 on 02/01/2022 by Kevin Britton MD at [facility] Left: Knee [employer] 01/22/2030 [id number] / / [id number] Bsplt Tib Legion 4 Kn Lt Rondon Por Implanted:Qty: 1 on 02/01/2022 by Kevin Britton MD at [facility] Left: Knee [employer] 07/04/2029 [id number] / / [id number] Screw Bsplt 25mm 6.5mm Gns2 Kn Tib Por Implanted:Qty: 1 on 02/01/2022 by Kevin Britton MD at [facility] Left: Knee [employer] 10/22/2030 [id number] / / [id number] Screw Bsplt 20mm 6.5mm Gns2 Kn Tib Por Implanted:Qty: 1 on 02/01/2022 by Kevin Britton MD at [facility] Left: Knee [employer] 09/10/2031 [id number] / / [id number] Screw 6.5mm 30mm Sphrcl Head Hip Actb Implanted:Qty: 1 on 02/01/2022 by Kevin Britton MD at [facility] Left: Knee [employer] 10/03/2031 [id number] / / [id number] Screw Bsplt 30mm 6.5mm Gns2 Kn Tib Por Implanted:Qty: 1 on 02/01/2022 by Kevin Britton MD at [facility] Left: Knee [employer] 10/22/2030 [id number] / / [id number] Liletta Intrauterine System Implanted:Qty: 1 on 10/16/2022 by Cole Garcia MD at [facility] N/A: Uterus [employer] 06/05/2025 [id number] / / [id number] Procedures Procedure Name Priority Date/Time Associated Diagnosis Comments HEMOCHROMATOSIS MUTATION PANEL Routine 04/12/2024 9:44 AM CARBURETOR REPAIRER Family history of hemochromatosis IRON + TIBC PANEL Routine 04/12/2024 9:44 AM CARBURETOR REPAIRER Family history of hemochromatosis FERRITIN Routine 04/12/2024 9:44 AM CARBURETOR REPAIRER Family history of hemochromatosis COMPREHENSIVE METABOLIC PANEL Routine 04/12/2024 9:44 AM CARBURETOR REPAIRER Family history of hemochromatosis CBC W AUTO DIFFERENTIAL Routine 04/12/2024 9:44 AM CARBURETOR REPAIRER Family history of hemochromatosis PATHOLOGY TISSUE Routine 02/03/2024 8:26 AM CDT History of colon polyps MD COLOREC CANC SCRN,COLONOSCPY HI RISK 02/03/2024 7:59 [...] HEPATITIS C ANTIBODY Routine 05/12/2020 10:28 AM CARBURETOR REPAIRER NAFLD (nonalcoholic fatty liver disease) Elevated liver enzymes from Last 3 Months or Most Recently Relevant to Health Maintenance Results * HEMOCHROMATOSIS MUTATION PANEL (04/12/2024 9:44 AM CARBURETOR REPAIRER) DNA Mutation Analysis See Below [facility] Comment: [...] clinical information reviewed by Lacie Sue, Ph.D., [facility]. DETAILED ASSAY INFORMATION: Hereditary hemochromatosis [...] variants in the HFE gene, C282Y (NM 758966.2: c.845G>A, p.Oyt736Iyg) and H63D (NM 133480.2: c.187C>G, p.Uuq62Czd), that are commonly associated with HH. These [...] Health care providers, please contact your local [employer]' genetic counselor or call [phone] ( ) for assistance with the interpretation of these results. This test was developed and its analytical performance characteristics have been determined by [employer] [facility]. It has not been cleared or approved by FDA. This assay has been validated pursuant to the CLIA regulations and is used for clinical purposes. For more information, please refer to http://education.Careers360.com/faq/hemochromatosis. (This link is being provided for informational/educational purposes only.) A portion of the testing was performed at [facility]. Reviewed and signed by Laboratory results and submitted clinical information reviewed by Lacie Sue, Ph.D., HCLD, Signed on 04/22/2024 at 18:28 Test Performed at: [facility] [address] [facility], [place] ??[address] PAULO HINDS MD,PHD,CARLOS Blood BLOOD SPECIMEN / Unknown 04/12/2024 9:44 AM CARBURETOR REPAIRER 04/12/2024 9:44 AM CARBURETOR REPAIRER Marlena Mccoy PROPOSAL REP-TUG BOAT CAPTAIN LAB - CHEMI STRY ORDERABLES Performing Organization Address City/[facility]/ZIP Co de Phone Number [facility] [address] [place] [address] * CBC WITH DIFFERENTIAL (04/12/2024 9:44 AM CARBURETOR REPAIRER) White Blood Cell Count 7.4 3.8 - [...] 0.4 % [facility] Comment: Test Performed at: [facility] [address] [place] [place] [place] ??[phone] KANE WAN MD Blood BLOOD SPECIMEN / Unknown 04/12/2024 9:44 AM CARBURETOR REPAIRER 04/12/2024 9:44 AM CARBURETOR REPAIRER Marlena Mccoy PROPOSAL REP-TUG BOAT CAPTAIN LAB - HEMAT OLOGY ORDERABLES Performing Organization Address City/[facility]/ZIP Co de Phone Number [facility] [address] [place] [address] * (ABNORMAL) COMPREHENSIVE METABOLIC PANEL (04/12/2024 9:44 AM CARBURETOR REPAIRER) Glucose 106(H) 65 - 99 mg/dL [facility] [...] [facility] BUN/Creatinine Ratio SEE NOTE: 6 - (calc) [facility] Comment: ?? Not Reported: BUN [...] 29 U/L [facility] Comment: Test Performed at: [facility] [address] [place], [place] ??[address] KANE WAN MD Blood BLOOD SPECIMEN / Unknown 04/12/2024 9:44 AM CARBURETOR REPAIRER 04/12/2024 9:44 AM CARBURETOR REPAIRER Marlena Mccoy PROPOSAL REP-TUG BOAT CAPTAIN LAB - CHEMI STRY ORDERABLES [facility] [address] [place] [address] * IRON + TIBC PANEL (04/12/2024 9:44 AM CARBURETOR REPAIRER) Iron 158 45 - 160 mcg/dL [facility] TIBC 373 250 - 450 mcg/dL (calc) [facility] % Saturation 42 16 - 45 % (calc) [facility] Comment: Test Performed at: [facility] [address] [place], [place] ??[phone] KANE WAN MD Blood BLOOD SPECIMEN / Unknown 04/12/2024 9:44 AM CARBURETOR REPAIRER 04/12/2024 9:44 AM CARBURETOR REPAIRER Marlena Mccoy APRN-TUG BOAT CAPTAIN LAB - CHEMI STRY ORDERABLES Performing Organization Address [facility] de Phone Number [facility] [address] [place] [address] * FERRITIN (04/12/2024 9:44 AM CARBURETOR REPAIRER) Pathologist [facility] Ferritin 95 16 - 232 ng/mL [facility] Comment: Test Performed at: [facility] ??[phone] KANE WAN MD Blood BLOOD SPECIMEN / Unknown 04/12/2024 9:44 AM CARBURETOR REPAIRER 04/12/2024 9:44 AM CARBURETOR REPAIRER Marlena Mccoy APRN-TUG BOAT CAPTAIN LAB - CHEMI STRY ORDERABLES Performing Organization Address [facility] de Phone Number [facility] [address] [place] [address] * PATHOLOGY TISSUE (02/03/2024 8:26 AM CDT) Pathologist [facility] Case Report Surgical Pathology Report ? Case: [id number] ? Authorizing Provider: ??Joseph Pathak Collected: ? 02/03/2024 08:26 AM ? MD ? Ordering Location: ? [facility] ?Received: ?02/03/2024 09:44 AM ? Pathologist: ? Danay Velasquez MD ? Specimen: ?Large Intestine, Cecum, ileocecal valve irregular mucosa biopsies ? 02/04/2024 11:09 AM [facility] Final Diagnosis Small intestine, ileocecal valve irregular mucosa, biopsy (A): - Benign ileal mucosa with focal inflammation and reactive changes 02/04/2024 11:09 AM [facility] Microscopic Description and Comment [...] of adenoma or malignancy. 02/04/2024 11:09 AM [facility] Clinical History The patient is a 58-year-old woman who presents for high risk colon cancer surveillance (personal history of colonic polyps). Operative procedure/findings: Colonoscopy - Mild ill-defined irregular mucosa at ileocecal valve, biopsied 02/04/2024 11:09 AM [facility] Gross Description The requisition and specimen(s) are identified with the patient's name Milagros Torres . Received in formalin, specimen A , consists of 0.1 x 0.1 x < 0.1 cm dumont-pink irregular tissue fragment which is submitted in toto in a single cassette labeled A1. RB 02/04/2024 11:09 AM T [facility] Pathologist Location at [facility] 02/04/2024 11:09 AM T [facility] Disclaimer The performance characteristics of all immunohistochemical and indirect immunofluorescence stains (if any) cited in this report were determined by the Histopathology Laboratory of [facility]. Some of these tests were developed [...] attending (teaching) pathologist. 02/04/2024 11:09 AM CDT [facility] Embedded Images 02/04/2024 11:09 AM T [facility] Biopsy, NOS (Large Intestine, Cecum) 02/03/2024 8:26 AM CDT 02/03/2024 9:44 AM CDT Joseph Basilio MD LAB - PATHOL OGY/CYTOLOGY ORDERABLES Performing Organization Address City/State/[facility] Co de Phone Number [facility] [address] [phone] * Endoscopy, Colon, Screening (02/03/2024 7:25 AM CDT) Report Endoscopy POC Endoscopy Department Report _ Patient Name: Milagros Torres ?Procedure Date: 02/03/2024 7:25 AM ?Date of : 1965 Classification: Outpatient ?Gender: Female Ethnicity: Not or ? Race: White _ Providers: ?Joseph Basilio MD Referring : ? Willis Veras MD; Marlena Mccoy, ?PROPOSAL REP; Elizabeth Garcia MD Procedure: ?Colonoscopy Indications: ?High [...] bowel ?preparation was evaluated using the BBPS ([place] ?Bowel Preparation Scale) with scores of: Right [...] Procedure Code(s): ? --- Professional --- ? 66126, Colonoscopy, flexible; with biopsy, single or multiple Diagnosis Code(s): ?--- Professional --- ?Z86.010, Personal history of colonic polyps ?K63.89, Other specified diseases of intestine ?K64.8, Other hemorrhoids ?K57.30, Diverticulosis of large intestine without ?perforation or abscess without bleeding CPT copyright 2021 [employer]. All rights reserved. The codes documented in this report are preliminary and upon parachute manufacturing supervisor review may be revised to meet current compliance requirements. Joseph Basilio MD 02/03/2024 8:47:53 AM Note Initiated On: 02/03/2024 7:25 AM Number of Addenda: 0 ? [facility] ? [address] [place] [address] [facility] 02/03/2024 7:25 AM CDT Joseph Basilio MD GI PROCEDURE ORDERABLES [facility] * MAMMO BILAT DIAGNOSTIC W [place] [...] ??LIMITED LEFT BREAST ULTRASOUND (COMBINED REPORT) LOCATION: [facility] EXAM DATE: ??10/09/2023 HISTORY: Follow-up to a [...] * HEPATITIS C ANTIBODY (05/12/2020 10:28 AM CARBURETOR REPAIRER) Hepatitis C Antibody Non-react pura Non-reac tive 05/12/2020 11:54 AM CARBURETOR REPAIRER [facility] Comment:Hepatitis C Antibody screen indicates [...] Lab Venipuncture / Unknown 05/12/2020 10:28 AM CARBURETOR REPAIRER 05/12/2020 11:02 AM CARBURETOR REPAIRER Marlena Mccoy PROPOSAL REP-TUG BOAT CAPTAIN LAB - CHEMI STRY ORDERABLES [facility] [address] [place] [address], [facility] [phone] from Last 3 Months or Most Recently Relevant to Health Maintenance Advance Directives * Full Code (Latest Code Status on File) Date Activated Date Inactivated Comments 02/01/2022 11:03 AM 02/02/2022 11:19 AM * Full Code Date Activated Date Inactivated Comments 02/01/2022 5:47 AM 02/01/2022 11:03 AM Care Teams Artistic Director Relationship Specialty Start Date End Date Willis Veras MD [address] [place] [address] PCP - General 05/03/21 Cole Ku MD [address] [facility] [address] [place] [address] General Surgery 11/10/20 Elizabeth Garcia MD [address] [place] [address] Hematology and Oncology 10/21/23
--- OUTSIDE RECORDS SUMMARY | 2024-04-25 13:52 | XMS_ITS | Patient Health Summary ---
Author Organization [facility] Address [address] [place] [address] Care Team Providers Care Catering Service Manager Name Role Phone Cole Ku MD Unavailable Willis Veras MD Primary Care Provider Elizabeth Garcia MD Unavailable [phone] Note from [facility],non-owned Affiliates and Associated Physician Practices is amultiple site organization consisting of ambulatory clinics and hospital sitesin [place], [place], [place] and [place]. This disclosure is being madepursuant to the Care Everywhere program and may not contain all information available regarding this patient. Last updated 18.[facility] Allergies No known active allergies Medications * Be aware that medications may not be up to date on this document. Alwaysverify current medications with the patient. * Vitamin D3, cholecalciferol, 50 MCG (1999 UT) tablet(Started 03/23/2019) Take 1 tablet by mouth once daily 2 refills remaining * calcium 600 MG tablet(Started 03/23/2019) Take 1 tablet by mouth daily with food 2 refills remaining * losartan - hydroCHLOROthiazide (Hyzaar) 50-12.5 MG tablet Take 1 (one) tablet by mouth once daily * famotidine (Pepcid) 20 MG tablet(Started 08/06/2022) Take 1 (one) tablet by mouth once daily * [place]-3 Fatty Acids (fish oil) 1000 MG capsule Take by mouth once daily * celecoxib (CeleBREX) 50 MG capsule(Started 11/04/2023) Take 2 (two) capsules by mouth once daily * losartan (Cozaar) 25 MG tablet(Started 08/04/2023) Take 1 (one) tablet by mouth once daily * pravastatin (Pravachol) 10 MG half tablet(Started 07/02/2023) Take 1 (one) Half Tablet by mouth once daily * omeprazole (PriLOSEC) 20 MG capsule(Started 12/31/2023) Take 1 (one) capsule by mouth once daily * phentermine (Adipex-P) 37.5 MG capsule(Started 12/31/2023) Take 1 (one) capsule by mouth every 2 days * polyethylene glycol (Golytely) 236 g solution(Started 01/19/2024) Drink all of the prep at 6pm the night before colonoscopy. Please finish all of the prep before going to bed. Active Problems Problem Noted Date Diagnosed Date Complex endometrial hyperplasia with atypia 12/2022 S/P total hysterectomy and B SO (bilateral salpingo-oophorectomy) 03/12/2023 S/P total knee arthroplasty, left 02/01/2022 NAFLD (nonalcoholic fatty liver disease) 021 Depression 11/17/2015 Anxiety 09/19/2015 Malignant neoplasm of upper- inner quadrant of left breast in female, estrogen receptor positive 07/27/2015 Cancer Staging:Pathologic stage from 09/04/2015:Stage IA(T1c, N0, cM0) - Signed by Elizabeth Garcia MD on 10/21/2023 Benign essential HTN 07/21/2015 Immunizations * Covid Pfizer primary monovalent 12+ yr 0.3mL Purple cap(Given 09/24/2020, 08/27/2020) * TDAP (7yrs+)(Given 02/06/2019) Social History Tobacco Use Types Packs/Day Years [...] Mass Index 33.66 02/03/2024 7:25 AM CDT Medical Devices Implanted Type Area Garage Door Service Technician Device Identifier Shelf Expiration Date Model / Serial / Lot Ins Tib 3-4 11mm Kn Xlpe Dsh Legion Implanted:Qty: 1 on 02/01/2022 by Kevin Britton MD at [facility] Left: Knee [employer] 06/21/2030 [id number] / / [id number] Cmpnt Fem Kn Lt 5 Crcte Rtn Legion Rondon Implanted:Qty: 1 on 02/01/2022 by Kevin Britton MD at [facility] Left: Knee [employer] 05/26/2031 [id number] / / [id number] Stem Tib 55mm 18mm Prfx Mtphsl Kn Implanted:Qty: 1 on 02/01/2022 by Kevin Britton MD at [facility] Left: Knee [employer] 01/22/2030 [id number] / / [id number] Bsplt Tib Legion 4 Kn Lt Rondon Por Implanted:Qty: 1 on 02/01/2022 by Kevin Britton MD at [facility] Left: Knee [employer] 07/04/2029 [id number] / / [id number] Screw Bsplt 25mm 6.5mm Gns2 Kn Tib Por Implanted:Qty: 1 on 02/01/2022 by Kevin Britton MD at [facility] Left: Knee [employer] 10/22/2030 [id number] / / [id number] Screw Bsplt 20mm 6.5mm Gns2 Kn Tib Por Implanted:Qty: 1 on 02/01/2022 by Kevin Britton MD at [facility] Left: Knee [employer] 09/10/2031 [id number] / / [id number] Screw 6.5mm 30mm Sphrcl Head Hip Actb Implanted:Qty: 1 on 02/01/2022 by Kevin Britton MD at [facility] Left: Knee [employer] 10/03/2031 [id number] / / [id number] Screw Bsplt 30mm 6.5mm Gns2 Kn Tib Por Implanted:Qty: 1 on 02/01/2022 by Kevin Britton MD at [facility] Left: Knee [employer] 10/22/2030 [id number] / / [id number] Liletta Intrauterine System Implanted:Qty: 1 on 10/16/2022 by Cole Garcia MD at [facility] N/A: Uterus [employer] 06/05/2025 [id number] / / Procedures * HEMOCHROMATOSIS MUTATION PANEL(Performed 04/12/2024) Performed for Family history of hemochromatosis * IRON + TIBC PANEL(Performed 04/12/2024) Performed for Family history of hemochromatosis * FERRITIN(Performed 04/12/2024) Performed for Family history of hemochromatosis * COMPREHENSIVE METABOLIC PANEL(Performed 04/12/2024) Performed for Family history of hemochromatosis * CBC W AUTO DIFFERENTIAL(Performed 04/12/2024) Performed for Family history of hemochromatosis * PATHOLOGY TISSUE(Performed 02/03/2024) Performed for History of colon polyps * MT COLOREC CANC SCRN,COLONOSCPY HI RISK(Performed 02/03/2024) Performed for History of colon polyps * ENDOSCOPY, COLON, SCREENING(Performed 02/03/2024) * US BREAST LEFT LTD(Performed 10/09/2023) Performed for History of breast cancer * MAMMO BILAT DIAGNOSTIC W SHAQUILLE(Performed 10/09/2023) Performed for Abnormal mammogram * MT INJ TENDON SHEATH/LIGAMENT/APONEUROSIS(Performed 08/12/2023) Performed for Plantar fasciitis of left foot * XR FOOT LEFT 3VW OR MORE(Performed 08/07/2023) Performed for Left foot pain * XR ANKLE LEFT 3VW OR MORE(Performed 08/07/2023) Performed for Left foot pain * XR KNEE LEFT 4VW OR MORE(Performed 06/04/2023) Performed for History of total left knee replacement * MAMMO LEFT DIAGNOSTIC W SHAQUILLE(Performed 04/22/2023) Performed for History of breast cancer, Malignant neoplasm of upper-inner quadrant of left breast in female, estrogen receptor positive (HCC) * CARDIAC RHYTHM STRIP ORDER(Performed 03/03/2023) * APHERESIS/TRANSFUSION ORDER(Performed 03/03/2023) * PATHOLOGY TISSUE EXAM (STL)(Performed 02/27/2023) Performed for Diagnosis unknown * ENDOTRACHEAL TUBE NOTE(Performed 02/27/2023) * MT FROZEN FOODS MANAGER RQR USE ROBOTIC SURG SYS(Performed 02/27/2023) Performed for Diagnosis unknown * TYPE + SCREEN PANEL(Performed 02/19/2023) Performed for Preoperative examination * BASIC METABOLIC PANEL (CALCIUM TOTAL)(Performed 02/19/2023) Performed for Preoperative examination * CBC W AUTO DIFFERENTIAL(Performed 02/19/2023) Performed for Preoperative examination * MT LIVER ELASTOGRAPHY(Performed 01/17/2023) Performed for NAFLD (nonalcoholic fatty liver disease) * CARDIAC RHYTHM STRIP ORDER(Performed 01/10/2023) * PATHOLOGY TISSUE EXAM (STL)(Performed 01/07/2023) Performed for Diagnosis unknown * LARYNGEAL MASK AIRWAY(Performed 01/07/2023) * MT HYSTEROSCOPY,W/ENDO BX(Performed 01/07/2023) Performed for Diagnosis unknown * TYPE + SCREEN PANEL(Performed 01/07/2023) Performed for Preoperative examination * BASIC METABOLIC PANEL (CALCIUM TOTAL)(Performed 01/07/2023) Performed for Preoperative examination * CBC W AUTO DIFFERENTIAL(Performed 01/07/2023) Performed for Preoperative examination * TSH (EXTERNAL RESULT ENTRY)(Performed 12/30/2022) * LIPID PROFILE (EXTERAL RESULT ENTRY)(Performed 12/30/2022) * COMP MET PANEL (EXTERNAL RESULT ENTRY)(Performed 12/30/2022) * CBC W DIFF (EXTERNAL RESULT ENTRY)(Performed 12/30/2022) * MAMMO LEFT DIAGNOSTIC W SHAQUILLE(Performed 10/28/2022) Performed for History of breast cancer * VITAMIN D 25-HYDROXY(Performed 10/21/2022) Performed for Encounter for monitoring tamoxifen therapy, History of breast cancer * COMPREHENSIVE METABOLIC PANEL(Performed 10/21/2022) Performed for Encounter for monitoring tamoxifen therapy, History of breast cancer * CBC W AUTO DIFFERENTIAL(Performed 10/21/2022) Performed for Encounter for monitoring tamoxifen therapy, History of breast cancer * MAMMO BILAT SCREENING W SHAQUILLE(Performed 10/21/2022) Performed for Encounter for monitoring tamoxifen therapy, History of breast cancer * CARDIAC RHYTHM STRIP ORDER(Performed 10/19/2022) * PATHOLOGY TISSUE EXAM (STL)(Performed 10/16/2022) Performed for Diagnosis unknown * MT HYSTEROSCOPY,W/ENDO BX(Performed 10/16/2022) Performed for Diagnosis unknown * BLOOD TYPE VERIFICATION(Performed 10/16/2022) Performed for Pre-op testing * TYPE + SCREEN PANEL(Performed 10/16/2022) * GROSS EXAM PATHOLOGY (STL)(Performed 08/22/2022) Performed for Diagnosis unknown * XR KNEE LEFT 4VW OR MORE(Performed 06/05/2022) Performed for History of total left knee replacement * VITAMIN D 25-HYDROXY(Performed 03/20/2022) Performed for Vitamin D deficiency, unspecified, Encounter for monitoring tamoxifen therapy, History of breast cancer * COMPREHENSIVE METABOLIC PANEL(Performed 03/20/2022) Performed for Vitamin D deficiency, unspecified, Encounter for monitoring tamoxifen therapy, History of breast cancer * CBC W AUTO DIFFERENTIAL(Performed 03/20/2022) Performed for Vitamin D deficiency, unspecified, Encounter for monitoring tamoxifen therapy, History of breast cancer * XR KNEE LEFT 4VW OR MORE(Performed 03/05/2022) Performed for S/P TKR (total knee replacement), left * CARDIAC RHYTHM STRIP ORDER(Performed 02/05/2022) * IMAGING/RADIOLOGY/XRAY RESULTS ORDER(Performed 02/04/2022) * HGB HCT PANEL(Performed 02/02/2022) Performed for S/P total knee arthroplasty, left * ENDOTRACHEAL TUBE NOTE(Performed 02/01/2022) * MT TOTAL KNEE REPLACEMENT(Performed 02/01/2022) Performed for Diagnosis unknown * PERIPHERAL BLOCK(Performed 02/01/2022) * URINE MICROSCOPIC ONLY REFLEX TO CULTURE(Performed 01/22/2022) Performed for Pre-op testing * URINALYSIS REFLEX MICROSCOPIC REFLEX CULTURE(Performed 01/22/2022) Performed for Pre-op testing * FRUCTOSAMINE(Performed 01/22/2022) Performed for Pre-op testing * HEMOGLOBIN A1C(Performed 01/22/2022) Performed for Pre-op testing * TRANSFERRIN(Performed 01/22/2022) Performed for Pre-op testing * COMPREHENSIVE METABOLIC PANEL(Performed 01/22/2022) Performed for Pre-op testing * CBC W AUTO DIFFERENTIAL(Performed 01/22/2022) Performed for Pre-op testing * CULTURE URINE(Performed 01/22/2022) Performed for Pre-op testing * CULTURE MSSA/MRSA(Performed 01/22/2022) Performed for Pre-op testing * US ABDOMEN LIMITED(Performed 01/18/2022) Performed for NAFLD (nonalcoholic fatty liver disease) * MAMMO BILAT SCREENING W SHAQUILLE(Performed 10/19/2021) Performed for History of breast cancer * MT DRAIN/INJECT LARGE JOINT/BURSA(Performed 09/26/2021) Performed for Primary osteoarthritis of left knee * XR KNEE LEFT 4VW OR MORE(Performed 09/26/2021) Performed for Primary osteoarthritis of left knee * LIPID PROFILE(Performed 08/06/2021) Performed for History of breast cancer, Encounter for monitoring tamoxifen therapy * COMPREHENSIVE METABOLIC PANEL(Performed 08/06/2021) Performed for History of breast cancer, Encounter for monitoring tamoxifen therapy * CBC W AUTO DIFFERENTIAL(Performed 08/06/2021) Performed for History of breast cancer, Encounter for monitoring tamoxifen therapy * MT DRAIN/INJECT LARGE JOINT/BURSA(Performed 06/26/2021) Performed for Primary osteoarthritis of left knee * MT DRAIN/INJECT LARGE JOINT/BURSA(Performed 02/06/2021) Performed for Primary osteoarthritis of left knee * VITAMIN D 25-HYDROXY(Performed 01/15/2021) Performed for History of breast cancer * COMPREHENSIVE METABOLIC PANEL(Performed 01/15/2021) Performed for History of breast cancer * CBC W AUTO DIFFERENTIAL(Performed 01/15/2021) Performed for History of breast cancer * PATHOLOGY TISSUE(Performed 12/05/2020) Performed for Biliary colic * MT LAP,CHOLECYSTECTOMY(Performed 12/05/2020) Performed for Biliary colic * ENDOTRACHEAL TUBE NOTE(Performed 12/05/2020) * COMPREHENSIVE METABOLIC PANEL(Performed 11/27/2020) Performed for Pre-op exam * MT LIVER ELASTOGRAPHY(Performed 11/10/2020) Performed for NAFLD (nonalcoholic fatty liver disease), Elevated liver enzymes * MT DRAIN/INJECT LARGE JOINT/BURSA(Performed 11/07/2020) Performed for Primary osteoarthritis of left knee * MAMMO BILAT SCREENING(Performed 10/19/2020) Performed for History of breast cancer * PATHOLOGY TISSUE(Performed 09/18/2020) Performed for Constipation, unspecified constipation type * COLONOSCOPY SCREEN(Performed 09/18/2020) Performed for Constipation, unspecified constipation type * ENDOSCOPY, COLON, SCREENING(Performed 09/18/2020) * MT DRAIN/INJECT LARGE JOINT/BURSA(Performed 08/01/2020) Performed for Primary osteoarthritis of left knee * VITAMIN D 25-HYDROXY(Performed 07/03/2020) Performed for Abnormal laboratory test result, Vitamin D deficiency, unspecified * COMPREHENSIVE METABOLIC PANEL(Performed 07/03/2020) Performed for Abnormal laboratory test result, Vitamin D deficiency, unspecified * CBC W AUTO DIFFERENTIAL(Performed 07/03/2020) Performed for Abnormal laboratory test result, Vitamin D deficiency, unspecified * TRANSFERRIN(Performed 05/12/2020) Performed for NAFLD (nonalcoholic fatty liver disease), Elevated liver enzymes * PT-INR SLH(Performed 05/12/2020) Performed for NAFLD (nonalcoholic fatty liver disease), Elevated liver enzymes * IRON BLOOD(Performed 05/12/2020) Performed for NAFLD (nonalcoholic fatty liver disease), Elevated liver enzymes * IGG BLOOD(Performed 05/12/2020) Performed for NAFLD (nonalcoholic fatty liver disease), Elevated liver enzymes * HEPATITIS C ANTIBODY(Performed 05/12/2020) Performed for NAFLD (nonalcoholic fatty liver disease), Elevated liver enzymes * GGT(Performed 05/12/2020) Performed for NAFLD (nonalcoholic fatty liver disease), Elevated liver enzymes * FERRITIN(Performed 05/12/2020) Performed for NAFLD (nonalcoholic fatty liver disease), Elevated liver enzymes * HEPATITIS B CORE ANTIBODY TOTAL(Performed 05/12/2020) Performed for NAFLD (nonalcoholic fatty liver disease), Elevated liver enzymes * ÁLVARO BLOOD SCREEN W/REFLEX TITER(Performed 05/12/2020) Performed for NAFLD (nonalcoholic fatty liver disease), Elevated liver enzymes * COMPREHENSIVE METABOLIC PANEL(Performed 05/12/2020) Performed for NAFLD (nonalcoholic fatty liver disease), Elevated liver enzymes * CBC W AUTO DIFFERENTIAL(Performed 05/12/2020) Performed for NAFLD (nonalcoholic fatty liver disease), Elevated liver enzymes * MT DRAIN/INJECT LARGE JOINT/BURSA(Performed 05/02/2020) Performed for Primary osteoarthritis of left knee * US ABDOMEN COMPLETE(Performed 03/24/2020) Performed for Abnormal laboratory test result * VITAMIN D 25-HYDROXY(Performed 03/20/2020) Performed for Vitamin D deficiency, unspecified, History of breast cancer * COMPREHENSIVE METABOLIC PANEL(Performed 03/20/2020) Performed for Vitamin D deficiency, unspecified, History of breast cancer * CBC W AUTO DIFFERENTIAL(Performed 03/20/2020) Performed for Vitamin D deficiency, unspecified, History of breast cancer * MT DRAIN/INJECT LARGE JOINT/BURSA(Performed 02/01/2020) Performed for Primary osteoarthritis of left knee * MT DRAIN/INJECT LARGE JOINT/BURSA(Performed 11/02/2019) Performed for Primary osteoarthritis of left knee * MAMMO BILAT DIAGNOSTIC(Performed 10/13/2019) Performed for History of breast cancer in female * T4 FREE(Performed 09/13/2019) Performed for Malignant neoplasm of nipple of left breast in female, unspecified estrogen receptor status (HCC), Abnormal laboratory test result, Malaise and fatigue * TSH(Performed 09/13/2019) Performed for Malignant neoplasm of nipple of left breast in female, unspecified estrogen receptor status (HCC), Abnormal laboratory test result, Malaise and fatigue * VITAMIN D 25-HYDROXY(Performed 09/13/2019) Performed for Malignant neoplasm of nipple of left breast in female, unspecified estrogen receptor status (HCC), Vitamin D deficiency, unspecified * COMPREHENSIVE METABOLIC PANEL(Performed 09/13/2019) Performed for Malignant neoplasm of nipple of left breast in female, unspecified estrogen receptor status (HCC), Vitamin D deficiency, unspecified * CBC W AUTO DIFFERENTIAL(Performed 09/13/2019) Performed for Malignant neoplasm of nipple of left breast in female, unspecified estrogen receptor status (HCC), Vitamin D deficiency, unspecified * MT DRAIN/INJECT LARGE JOINT/BURSA(Performed 07/27/2019) Performed for Primary osteoarthritis of left knee * HEPATIC FUNCTION PANEL(Performed 03/15/2019) Performed for Abnormal laboratory test result, Vitamin D deficiency, unspecified, Malignant neoplasm of nipple of left breast in female, unspecified estrogen receptor status (HCC) * VITAMIN D 25-HYDROXY(Performed 03/15/2019) Performed for Abnormal laboratory test result, Vitamin D deficiency, unspecified, Malignant neoplasm of nipple of left breast in female, unspecified estrogen receptor status (HCC) * COMPREHENSIVE METABOLIC PANEL(Performed 03/15/2019) Performed for Abnormal laboratory test result, Vitamin D deficiency, unspecified, Malignant neoplasm of nipple of left breast in female, unspecified estrogen receptor status (HCC) * CBC W AUTO DIFFERENTIAL(Performed 03/15/2019) Performed for Abnormal laboratory test result, Vitamin D deficiency, unspecified, Malignant neoplasm of nipple of left breast in female, unspecified estrogen receptor status (HCC) * MT DRAIN/INJECT LARGE JOINT/BURSA(Performed 03/10/2019) Performed for Primary osteoarthritis of left knee * MT DRAIN/INJECT LARGE JOINT/BURSA(Performed 12/07/2018) Performed for Primary osteoarthritis of left knee * XR KNEE LEFT 4VW OR MORE(Performed 12/07/2018) Performed for Left knee pain, unspecified chronicity * US BREAST RIGHT LTD(Performed 10/08/2018) Performed for Malignant neoplasm of left breast in female, estrogen receptor positive, unspecified site of breast (HCC) * MAMMO BILAT DIAGNOSTIC(Performed 10/08/2018) Performed for Malignant neoplasm of left breast in female, estrogen receptor positive, unspecified site of breast (HCC) * CBC W AUTO DIFFERENTIAL(Performed 09/10/2018) Performed for Malignant neoplasm of left breast in female, estrogen receptor positive, unspecified site of breast (HCC) * BASIC METABOLIC PANEL (CALCIUM TOTAL)(Performed 09/10/2018) Performed for Malignant neoplasm of left breast in female, estrogen receptor positive, unspecified site of breast (HCC) * HEPATIC FUNCTION PANEL(Performed 09/10/2018) Performed for Malignant neoplasm of left breast in female, estrogen receptor positive, unspecified site of breast (HCC) Results * HEMOCHROMATOSIS MUTATION PANEL (04/12/2024 9:44 AM DOOR REPAIRER BUS) DNA Mutation Analysis See Below [facility] Comment: [...] clinical information reviewed by Lacie Sue, Ph.D., [facility]. DETAILED ASSAY INFORMATION: Hereditary hemochromatosis (HH) is [...] variants in the HFE gene, C282Y (NM 161325.2: c.845G>A, p.[id number]) and H63D (NM 404378.2: c.187C>G, p.Hfl18Alu), that are commonly associated with HH. These [...] Health care providers, please contact your local [employer]' genetic counselor or call [phone] for assistance with the interpretation of these results. This test was developed and its analytical performance characteristics have been determined by [employer] [facility]. It has not been cleared or approved by FDA. This assay has been validated pursuant to the CLIA regulations and is used for clinical purposes. For more information, please refer to http://education.Moviestorm.Sketchfab/faq/hemochromatosis. (This link is being provided for informational/educational purposes only.) A portion of the testing [place] [facility] [place] Reviewed and signed by Laboratory results and submitted clinical information reviewed by Lacie Sue, Ph.D., [facility], Signed on 04/22/2024 at 18:28 Test Performed at: [employer] [facility] [address] [place], [place] ??[phone] PAULO HINDS MD,PHD,CARLOS Blood BLOOD SPECIMEN / Unknown 04/12/2024 9:44 AM DOOR REPAIRER BUS 04/12/2024 9:44 AM DOOR REPAIRER BUS Marlena Mccoy [facility] - CHEMI STRY ORDERABLES [facility] [id number] [place] [address] * CBC WITH DIFFERENTIAL (04/12/2024 9:44 AM DOOR REPAIRER BUS) Only the most recent of14 resultswithin the time period is included. White Blood Cell Count 7.4 3.8 - [...] 0.4 % [facility] Comment: Test Performed at: [employer] [facility] ??[phone] KANE WAN MD Blood BLOOD SPECIMEN / Unknown 04/12/2024 9:44 AM DOOR REPAIRER BUS 04/12/2024 9:44 AM DOOR REPAIRER BUS Marlena Mccoy [facility] - HEMAT OLOGY ORDERABLES Performing Organization Address City/State/[facility] Co de Phone Number [facility] [address] [place] [address] * (ABNORMAL) COMPREHENSIVE METABOLIC PANEL (04/12/2024 9:44 AM DOOR REPAIRER BUS) Only the most recent of12 resultswithin the time period is included. Pathologist [facility] Glucose 106(H) 65 - 99 mg/dL [facility] [...] 29 U/L [facility] Comment: Test Performed at: [employer] [place], [place] ??[phone] KANE WAN MD Blood BLOOD SPECIMEN / Unknown 04/12/2024 9:44 AM DOOR REPAIRER BUS 04/12/2024 9:44 AM DOOR REPAIRER BUS Marlena Mccoy [facility] - CHEMI STRY ORDERABLES [facility] [address] [place] [address] * IRON + TIBC PANEL (04/12/2024 9:44 AM DOOR REPAIRER BUS) Iron 158 45 - 160 mcg/dL [facility] TIBC 373 250 - 450 mcg/dL (calc) [facility] % Saturation 42 16 - 45 % (calc) [facility] Comment: Test Performed at: [employer] [place], [place] ??[phone] KANE WAN MD Blood BLOOD SPECIMEN / Unknown 04/12/2024 9:44 AM DOOR REPAIRER BUS 04/12/2024 9:44 AM DOOR REPAIRER BUS Marlena Mccoy [facility] - CHEMI STRY ORDERABLES Performing Organization Address [facility] de Phone Number [employer] [phone] [place] [address] * FERRITIN (04/12/2024 9:44 AM DOOR REPAIRER BUS) Only the most recent of2 resultswithin the time period is included. Pathologist [facility] Ferritin 95 16 - 232 ng/mL [facility] Comment: Test Performed at: [employer] [facility] ??[phone] KANE WAN MD Blood BLOOD SPECIMEN / Unknown 04/12/2024 9:44 AM DOOR REPAIRER BUS 04/12/2024 9:44 AM DOOR REPAIRER BUS Marlena Mccoy [facility] - CHEMI STRY ORDERABLES Performing Organization Address [facility] de Phone Number [facility] [address] [place] [address] * PATHOLOGY TISSUE (02/03/2024 8:26 AM CDT) Only the most recent of3 resultswithin the time period is included. [facility] Case Report Surgical Pathology Report ? Case: [id number] ? Authorizing Provider: ??Joseph Pathak, Collected: ? 02/03/2024 08:26 AM ? MD ? Ordering Location: ? [facility] ?Received: ?02/03/2024 09:44 AM ? Pathologist: ? Danay Velasquez MD ? Specimen: ?Large Intestine, Cecum, ileocecal valve irregular mucosa biopsies ? 02/04/2024 11:09 AM [facility] Final Diagnosis Small intestine, ileocecal valve irregular mucosa, biopsy (A): - Benign ileal mucosa with focal inflammation and reactive changes 02/04/2024 11:09 AM [facility] Microscopic Description and Comment [...] of adenoma or malignancy. 02/04/2024 11:09 AM [facility] Clinical History The patient is a 58-year-old woman who presents for high risk colon cancer surveillance (personal history of colonic polyps). Operative procedure/findings: Colonoscopy - Mild ill-defined irregular mucosa at ileocecal valve, biopsied 02/04/2024 11:09 AM [facility] Gross Description The requisition and specimen(s) are identified with the patient's name Milagros Torres . Received in formalin, specimen A , consists of 0.1 x 0.1 x < 0.1 cm dumont-pink irregular tissue fragment which is submitted in toto in a single cassette labeled A1. RB 02/04/2024 11:09 AM [facility] Pathologist Location at [facility] 02/04/2024 11:09 AM CDT [facility] Disclaimer The performance characteristics of all immunohistochemical and indirect immunofluorescence stains (if any) cited in this report were determined by the Histopathology Laboratory of [facility]. Some of these tests were [...] attending (teaching) pathologist. 02/04/2024 11:09 AM CDT [facility] Embedded Images 02/04/2024 11:09 AM CDT [facility] Biopsy, NOS (Large Intestine, Cecum) 02/03/2024 8:26 AM CDT 02/03/2024 9:44 AM CDT Joseph Basilio MD LAB - PATHOL OGY/CYTOLOGY ORDERABLES [facility] [address] [phone] * Endoscopy, Colon, Screening (02/03/2024 7:25 AM CDT) Report Endoscopy POC Endoscopy Department Report _ Patient Name: Milagros Torres ?Procedure Date: 02/03/2024 7:25 AM ?Date of : 1965 Classification: Outpatient ?Gender: Female Ethnicity: Not or ? Race: White _ Providers: ?Joseph Basilio MD Referring : ? Willis Veras MD; Marlena Mccoy, ?COOK TORTILLA; Elizabeth Garcia MD Procedure: ?Colonoscopy Indications: ?High [...] bowel ?preparation was evaluated using the BBPS (Ducor ?Bowel Preparation Scale) with scores of: Right [...] Procedure Code(s): ? --- Professional --- ? 60638, Colonoscopy, flexible; with biopsy, single or multiple Diagnosis Code(s): ?--- Professional --- ?Z86.010, Personal history of colonic polyps ?K63.89, Other specified diseases of intestine ?K64.8, Other hemorrhoids ?K57.30, Diverticulosis of large intestine without ?perforation or abscess without bleeding CPT copyright 2022 [employer]. All rights reserved. The codes documented in this report are preliminary and upon front office specialist review may be revised to meet current compliance requirements. Joseph Basilio MD 02/03/2024 8:47:53 AM Note Initiated On: 02/03/2024 7:25 AM Number of Addenda: 0 ? [facility] ? [address] [place] [address] [facility] 02/03/2024 7:25 AM CDT Joseph Basilio MD GI PROCEDURE ORDERABLES [facility] * US BREAST LEFT LTD (Diagnostic , most commonly ordered) (10/09/2023 3:05 PM CDT) Anatomical Region Laterality Modality Breast Left Mammography 10/09/2023 2:23 PM CDT Impressions 10/09/2023 5:28 PM CDT : No bilateral mammographic or targeted left breast sonographic evidence of malignancy. RECOMMENDATION: ??Screening mammography recommended in one year, pending no interval breast concerns. Dr. Sumner discussed the examination findings and recommendations with the patient at the time of the examination. OVERALL ASSESSMENT: ??BI-RADS CATEGORY 2: BENIGN. > Interpreting Provider: Germaine Sumner MD on 10/09/2023 5:28 PM Narrative 10/09/2023 5:28 PM CDT EXAMINATIONS: 1. ??BILATERAL DIGITAL DIAGNOSTIC MAMMOGRAM AND TOMOSYNTHESIS WITH CAD AND 2. ??LIMITED LEFT BREAST ULTRASOUND (COMBINED REPORT) LOCATION: [facility] EXAM DATE: ??10/09/2023 HISTORY: Follow-up to [...] normal, without mass. No skin thickening noted. Araseli Byers MD US ORDERABLES * MAMMO BILAT DIAGNOSTIC W [place] (10/09/2023 2:14 PM CDT) Anatomical Region Laterality Modality Breast Bilateral Mammography 10/09/2023 2:23 PM CDT Impressions 10/09/2023 5:28 PM CDT : No bilateral mammographic or targeted left breast sonographic evidence of malignancy. RECOMMENDATION: ??Screening mammography recommended in one year, pending no interval breast concerns. Dr. Sumner discussed the examination findings and recommendations with the patient at the time of the examination. OVERALL ASSESSMENT: ??BI-RADS CATEGORY 2: BENIGN. > Interpreting Provider: Germaine Sumner MD on 10/09/2023 5:28 PM Narrative 10/09/2023 5:28 PM CDT EXAMINATIONS: 1. ??BILATERAL DIGITAL DIAGNOSTIC MAMMOGRAM AND TOMOSYNTHESIS WITH CAD AND 2. ??LIMITED LEFT BREAST ULTRASOUND (COMBINED REPORT) LOCATION: [facility] EXAM DATE: ??10/09/2023 HISTORY: Follow-up to [...] noted. Elizabeth Garcia MD MAMMO ORDERABLES * MT INJ TENDON SHEATH/LIGAMENT/APONEUROSIS (08/12/2023 8:47 PM CDT) Narrative José Russ MD - 08/12/2023 8:47 PM CDT José Russ MD ? 08/12/2023 ??8:48 PM The junction between the glabrous skin and intersection of posterior medial mal was marked on the L foot. Cleaned with betadine and alcohol. Frozen with ethyl chloride. Timeout performed. Informed consent signed. 25 gauge needle was used to inject the plantar fascia medially without complication, 1cc of 40mg of kenalog and 1cc or naropin 0.5%. José Russ MD PROCEDURE/MINOR SURG ICAL ORDERABLES * XR FOOT LEFT 3VW OR MORE (08/07/2023 9:36 AM CDT) Anatomical Region Laterality Modality Ankle / Foot Radiographic Alena ging 08/07/2023 10:3 8 AM CDT Narrative 08/07/2023 10:42 AM CDT PROCEDURE: ??XR ANKLE LEFT 3VW OR MORE, XR FOOT LEFT 3VW OR MORE DATE/TIME OF EXAM: ??08/07/2023 9:35 AM CLINICAL INFORMATION: None relevant/not provided if blank. Indication: M79.672: Left foot pain Additional History: COMPARISON: None. FINDINGS: Left ankle: No acute fractures or dislocations is seen in the ankle. Joint space is grossly preserved. No bony erosions or destructions seen. No significant soft tissue swelling around the ankle. Left foot: No acute fractures or dislocations seen in the foot. Joint spaces are preserved. No bony erosions or destructions seen. No significant soft tissue swelling. Incidentally noted calcaneal spur. > Interpreting Provider: Basim Holbrook MD on 08/07/2023 10:42 AM Procedure Note Basim Holbrook MD - 08/07/2023 PROCEDURE: XR ANKLE LEFT 3VW OR MORE, XR FOOT LEFT 3VW OR MORE DATE/TIME OF EXAM: 08/07/2023 9:35 AM CLINICAL INFORMATION: None relevant/not provided if blank. Indication: M79.672: Left foot pain Additional History: COMPARISON: None. FINDINGS: Left ankle: No acute fractures or dislocations is seen in the ankle.Joint space is grossly preserved. No bony erosions or destructions seen. No significant soft tissue swelling around the ankle. Left foot: No acute fractures or dislocations seen in the foot. Joint spaces are preserved. No bony erosions or destructions seen. Nosignificant soft tissue swelling. Incidentally noted calcaneal spur. > Interpreting Provider: Basim Holbrook MD on 0:42 AM José Russ MD DIAGNOSTIC IMAGING O RDERABLES * XR ANKLE LEFT 3VW OR MORE (08/07/2023 9:35 AM CDT) Anatomical Region Laterality Modality Lower Extremity Radiographic Alena ging 08/07/2023 10:3 8 AM CDT Narrative 08/07/2023 10:42 AM CDT PROCEDURE: ??XR ANKLE LEFT 3VW OR MORE, XR FOOT LEFT 3VW OR MORE DATE/TIME OF EXAM: ??08/07/2023 9:35 AM CLINICAL INFORMATION: None relevant/not provided if blank. Indication: M79.672: Left foot pain Additional History: COMPARISON: None. FINDINGS: Left ankle: No acute fractures or dislocations is seen in the ankle. Joint space is grossly preserved. No bony erosions or destructions seen. No significant soft tissue swelling around the ankle. Left foot: No acute fractures or dislocations seen in the foot. Joint spaces are preserved. No bony erosions or destructions seen. No significant soft tissue swelling. Incidentally noted calcaneal spur. > Interpreting Provider: Basim Holbrook MD on 08/07/2023 10:42 AM Procedure Note Basim Holbrook MD - 08/07/2023 PROCEDURE: XR ANKLE LEFT 3VW OR MORE, XR FOOT LEFT 3VW OR MORE DATE/TIME OF EXAM: 08/07/2023 9:35 AM CLINICAL INFORMATION: None relevant/not provided if blank. Indication: M79.672: Left foot pain Additional History: COMPARISON: None. FINDINGS: Left ankle: No acute fractures or dislocations is seen in the ankle.Joint space is grossly preserved. No bony erosions or destructions seen. No significant soft tissue swelling around the ankle. Left foot: No acute fractures or dislocations seen in the foot. Joint spaces are preserved. No bony erosions or destructions seen. Nosignificant soft tissue swelling. Incidentally noted calcaneal spur. > Interpreting Provider: Basim Holbrook MD on 0:42 AM José Russ MD DIAGNOSTIC IMAGING O RDERABLES * XR KNEE LEFT 4VW OR MORE (06/04/2023 9:53 AM [facility]PA[facility]) Only the most recent of5 resultswithin the time period is included. Anatomical Region Laterality Modality Lower Extremity Radiographic Alena ging 06/04/2023 10:2 0 AM [facility] REPA[facility] Narrative 06/04/2023 10:21 AM [facility] REPA[facility] Procedure: XR KNEE LEFT 4VW OR MORE ??Exam Date: ??06/04/2023 9:53 AM ?? Location: ??[facility] Indication: Z96.652: Presence of left artificial knee joint Findings/impression: The study is compared to the exam from June 2022. Total knee replacement is again noted. Fracture or loosening. There is no joint effusion. There is no acute bony abnormality. > Interpreting Provider: Julien Wilder MD on 06/04/2023 10:21 AM Procedure Note Julien Wilder MD - 06/04/2023 Procedure: XR KNEE LEFT 4VW OR MORE Exam Date: 06/04/2023 9:53 AM Location: [facility] Indication: Z96.652: Presence of left artificial knee joint Findings/impression: The study is compared to the exam from June 2022. Total knee replacement is again noted. Fracture or loosening. There is no joint effusion. There is no acute bony abnormality. > Interpreting Provider: Julien Wilder MD on 06/04/2023 10:21 AM Kevin Britton MD DIAGNOSTIC IMAGING ORDERABLES * (ABNORMAL) MAMMO LEFT DIAGNOSTIC W [place] (04/22/2023 1:27 PM [facility]PA[facility]) Only the most recent of2 resultswithin the time period is included. Anatomical Region Laterality Modality Breast Left Mammography 04/22/2023 2:38 PM [facility] REPA[facility] Impressions 04/22/2023 3:07 PM [facility] REPAIR[facility] : Overall stable grouped microcalcifications associated with the patient's left lumpectomy bed likely represent developing fat necrosis and remain probably benign. RECOMMENDATION: ??Follow-up left breast diagnostic mammogram at the time patient is due for her next bilateral mammogram is recommended to confirm continued stability of probably benign left breast calcifications described above. This diagnostic mammogram will be due in October of 2023 Dr. Kilgore discussed the examination findings and recommendations with the patient at the time of the examination. OVERALL ASSESSMENT: ??BI-RADS CATEGORY 3: PROBABLY BENIGN. > Dictated by Sharad Triplett (resident) Tomer Cates (resident) assisted in the interpretation of this examination I, Peg Kilgore DO have personally reviewed and interpreted this examination/study. > Interpreting Provider: Peg Kilgore DO on 04/22/2023 3:07 PM Narrative 04/22/2023 3:07 PM DO[facility] REPAIRER [facility] EXAMINATION: DIGITAL MAMMO LEFT DIAGNOSTIC W [place] WITH TOMOSYNTHESIS AND WITH CAD LOCATION: [facility] EXAM DATE: ??04/22/2023 HISTORY: 57-year-old female presents for six-month follow-up to assess stability of microcalcifications associated with her prior lumpectomy site in the upper central left breast, felt to represent developing calcifying fat necrosis. Of note, the patient has a history of left breast cancer and underwent lumpectomy in 2015 COMPARISON: Comparison is made to prior mammograms dating back to 07/06/2015 including most recent left diagnostic mammogram 10/28/2022 and screening mammogram dated 10/21/2022 TECHNIQUE: Diagnostic left mammography was performed.Tomosynthesis (3D) and reconstructed synthetic 2-D ??images acquired. ?? Left true lateral and left craniocaudal and true lateral spot magnification compression views obtained left MLO and left MLO spot magnification compression views are also obtained. A total of 7 images were obtained. Computer-aided detection (CAD) was utilized. ?? BREAST COMPOSITION: Category B: There are scattered areas of fibroglandular density. FINDINGS: Grouped calcifications are again identified in the upper central left breast, associated with the patient's lumpectomy bed. These ossifications have increased in course morphology and appear to continue developing around a lucent center suggesting internal fat density. No new suspicious complications are identified. There is no discrete mass or evidence of suspicious architectural distortion. Araseli Byers MD MAMMO ORDERABLES * CARDIAC RHYTHM STRIP ORDER (03/03/2023 7:18 PM CDT) Only the most recent of4 resultswithin the time period is included. Narrative 03/03/2023 7:18 PM CDT Ordered by an unspecified provider. Scanned Document CARDIAC SERVICES ORD ERABLES * APHERESIS/TRANSFUSION ORDER (03/03/2023 7:18 PM CDT) Narrative 03/03/2023 7:18 PM CDT Ordered by an unspecified provider. Scanned Document NURSING - VITAL SIGN S AND ASSESSMENT * PATHOLOGY TISSUE EXAM (STL) (02/27/2023 12:44 PM CDT) Only the most recent of3 resultswithin the time period is included. Case Report Surgical Pathology Report ? Case: [id number] ? Authorizing Provider: ??Chay Major MD ?Collected: ? 02/27/2023 12:44 PM ? Ordering Location: ? [facility] ? Received: ?02/27/2023 12:48 PM ? Pathologist: ? Maxine Talbert MD ? Specimen: ?Uterus w Tube and Ovary, uterus, cervix, bilateral tubes and ovaries ? 03/03/2023 2:47 PM CDT [facility] Final Diagnosis Uterus, hysterectomy (including FSA1) - Benign predominantly basalis endometrium with focal areas of stromal decidualization/hormo ne effect - Adenomyosis - Leiomyomata - Cervical parakeratosis Ovaries and Fallopian tubes, bilateral, salpingo-oophorectomy - No histopathologic abnormality 03/03/2023 2:47 PM CDT [facility] Clinical History The patient is a 57-year-old woman with history complex atypical hyperplasia. Operative procedure: hysterectomy, bilateral salpingo-oophorectomy . 03/03/2023 2:47 PM [facility] Frozen Section The frozen section diagnosis is as rendered below. FSA1: Uterus, hysterectomy - Irregular endometrium; no carcinoma on section frozen The specimen was received at 1247 on 02/27/23 and was reported to Dr. Major at [address] Talbert. 03/03/2023 2:47 PM [facility] Gross Description The requisition and specimen are identified with the patient's name, Milagros Torres. Received fresh and then placed in formalin, specimen A , uterus, cervix, bilateral tubes and ovaries is a 79.4 gram specimen including an unopened uterus (7.9 x 4.3 x 2.9 cm), right fallopian tube (4.5 cm in length ? 0.5 cm in diameter), right ovary (2.8 x 1.5 x 1.0 cm), left fallopian tube (4.8 cm in length ? 0.6 cm in diameter), and left ovary (2.5 x 1.4 x 1.1 cm). The ectocervix (2.6 x 2.6 cm) is covered by smooth glistening white mucosa. The external os is circular and measures 1.1 cm in diameter. The endocervical mucosa is pink-dumont. The endometrial cavity (2.9 cm from cornu to cornu, 3.9 cm in length) has pink dumont endometrium of 0.2 cm in average thickness. No mass lesion is seen. The myometrium has multiple muscle nodules (0.7 to 1.6 cm in greatest dimension) with dumont white, firm, whorled cut surface. No evidence of hemorrhage, softening, or necrosis is present in these muscle nodules. The uninvolved myometrium is 1.9 cm in average thickness. The serosa dumont and smooth. The fallopian tubes have fimbriated ends. Sectioning of both ovaries shows yellow-dumont cut surface with multiple corpora albicantia. Ground Layer sections are submitted as follows: A1: FSA1 A2-3: Anterior cervix with lower uterine segment A4-5: Posterior cervix with lower uterine segment A6: Anterior endomyometrium with serosa A7: Anterior endomyometrium with serosa A8-12: Remaining entire anterior endometrium A13: Posterior endomyometrium with serosa A14: Posterior endomyometrium with serosa A15-17: Remaining entire posterior endometrium A18: Whorled muscle mass A19: Right fallopian tube with fimbria A20: Right ovary A21: Left fallopian tube with fimbria A22: Left ovary IY 03/03/2023 2:47 PM CDT [facility] Microscopic Description Microscopic examination substantiates the above diagnosis. Permanent sections confirm the frozen section diagnosis. 03/03/2023 2:47 PM CDT [facility] Pathologist Location at [facility] 03/03/2023 2:47 PM CDT [facility] Disclaimer All histochemical and/or immunohistochemical results are interpreted with controls that demonstrate appropriate staining reactions before reporting results. Note on use of immunocytochemistry reagents: This test was developed and its performance characteristic determined by [facility], Department of Laboratory Medicine. It has not been cleared or approved by the U.S. Food and Drug Administration (FDA). The FDA has determined that such clearance or approval is not necessary. The test is used for clinical purpose. It should not be regarded as investigational or for research. This laboratory is certified to perform high complexity testing. The performance characteristics of the IHC/DANE assays have been validated on formalin-fixed paraffin embedded tissues only. The assays have not been validated on decalcified tissues. Results should be interpreted with caution. 03/03/2023 2:47 PM CDT [facility] Embedded Images 03/03/2023 2:47 PM CDT [facility] Pathology/Cytolo gy HYSTERECTOMY AND BILATERAL SALPINGO-OOPHORECTOM Y SPECIMEN / Unknown 02/27/2023 12:44 PM CDT 02/27/2023 12:48 PM CDT Comment:Pre-op diagnosis: Diagnosis unknown [R69] Chay Major MD LAB - PATHOLOGY/CYTO LOGY ORDERABLES [facility] [address] [place] [address] * ETT LINE PERFORMABLE (02/27/2023 12:16 PM CDT) Narrative Greer Mccain MD - 02/27/2023 12:16 PM CDT Greer Mccain MD ? 02/27/2023 12:16 PM Endotracheal Tube Placement: ? Intubation Event Date/Time: ??02/27/2023 11:25 AM Procedure: intubation (45090). Procedure Section: ?? Sedation: under general anesthesia. Indications for Airway Management: ??anesthesia Induction: standard IV Patient Position: ??sniffing Mask Ventilation: easy. Blade Type: Kevyn Blade Size: 3 Laryngoscopy View: grade 2 (partial cords) Intubation Adjuncts: stylet Nasal Airway Size: 7 Tube: endotracheal tube Placement: oral Tube Size (MM): 7 Depth of Insertion (CM): 22 Cuff Inflated With: air Number of Attempts: 1. Placement Verified By: direct visualization and CO2 monitor Tube secured with: ??adhesive tape. Dentition unchanged? ??Yes Procedure Start Time: 02/27/2023 11:25 AM. Staff Section ? Anesthesia Provider: Greer Mccain MD, Performed the procedure Greer Mccain MD GENERAL ANESTHESIA O RDERABLES * TYPE + SCREEN PANEL (02/19/2023 10:08 AM CDT) Only the most recent of3 resultswithin the time period is included. ABO Rh O POS 02/19/2023 11:03 AM CDT [facility] Comment:History checked. Antibody Screen NEG 11:03 AM CDT [facility] Blood Bank BLOOD SPECIMEN / Unknown Venipuncture / Unknown 02/19/2023 10:08 AM CDT 02/19/2023 10:21 AM CDT Chay Major MD LAB - BLOOD BANK ORD ERABLES [facility] [address] [place], [place] [address] [phone] * (ABNORMAL) BASIC METABOLIC PANEL (CALCIUM TOTAL) (02/19/2023 10:08 AM CDT) Only the most recent of3 resultswithin the time period is included. Glucose 92 70 - 105 mg/dL 02/19/2023 10:43 AM CDT [facility] Sodium 142 136 - 145 mmol/L 02/19/2023 10:43 AM CDT [facility] Potassium 4.0 3.5 - 5.1 mmol/L 02/19/2023 10:43 AM CDT [facility] Chloride 108(H) 98 - 107 mmol/L 02/19/2023 10:43 AM CDT [facility] CO2 24 22 - 29 mmol/L 02/19/2023 10:43 AM CDT [facility] Calcium 10.0 8.4 - 10.4 mg/dL 02/19/2023 10:43 AM CDT [facility] Anion Gap 10 6 - 16 mmol/L 02/19/2023 10:43 AM CDT [facility] BUN 12 7 - 26 mg/dL 02/19/2023 10:43 AM CDT [facility] Creatinine 1.01 0.57 - 1.11 mg/dL 02/19/2023 10:43 AM CDT [facility] eGFR by CKD-EPI 65(L) >=90 mL/min/1.7 3 m2 02/19/2023 10:43 AM CDT [facility] Blood BLOOD SPECIMEN / Unknown Venipuncture / Unknown 02/19/2023 10:08 AM CDT 02/19/2023 10:21 AM CDT Tyler Correa MD LAB - CHEMISTRY OR DERABLES Performing Organization Address City/State/[facility] Co de Phone Number [facility] [address] [place] [address] * MT LIVER ELASTOGRAPHY (01/17/2023 9:30 AM CDT) Narrative Liborio Shepherd MD - 01/17/2023 9:30 AM CDT Liborio Shepherd MD ? 01/24/2023 ??3:12 PM Diagnosis: NAFLD RN verified patient NPO for prior 3 hours. Procedure explained. Date of Exam: 01/17/2023 Liver Stiffness: (LSM, kPa) median: ??6.4 IQR/Median% (ideally < 30%): ??6% CAP (controlled attenuation parameter): ??275 Technical Difficulty: None Ordering Provider: Marlena Mccoy APRN-DARY Phone Fax Fibroscan interpretation: I have personally reviewed the Fibroscan report and associated tracings. The calculated Liver Stiffness Measurement (LSM, kPa) indicates that: The probability of advanced liver fibrosis is: low. The loss of ultrasound signal, (controlled attenuation parameter, CAP [dB/m]), indicates that the probability of hepatic steatosis is: moderate. Liborio Hinojosa MD The following criteria are used to indicate the probability of advanced (stage 3-4) fibrosis: < 7.0 kPa: low 7.0-8.9 kPa: low to moderate 9.0-14.9 kPa: moderate 15-20 kPa: high > 20 kPa: very high Liver stiffness > 20 kPa is also associated with a high probability of complications of portal hypertension including varices and ascites. Liver stiffness > 50 kPa is associated with a high risk of variceal bleeding. These interpretations are based on the following published data: Horace PJ, Kezia M, Valerie M, et al. Accuracy of FibroScan controlled attenuation parameter and liver stiffness measurement in assessing steatosis and fibrosis in patients with nonalcoholic fatty liver disease. Gastroenterology 2019;156:0115-9103. Iris MS, Abilio R, Van Natta ML, et al. Vibration-controlled transient elastography to assess fibrosis and steatosis in patients with nonalcoholic fatty liver disease. Clin Gastroenterol Hepatol 2019;17:156-163. Note that scores have been developed that incorporate the Fibroscan liver stiffness measurement from large cohorts of patients with liver biopsies to further refine the ability of Fibroscan to identify patients ??with LAMBERT and advanced fibrosis. These include the FAST (Fibroscan-AST) score (Cady, 2022) and the Agile3+ and Agile4 scores (Masha, 202). Cady TA, Van Natta ML, Reggie M, Elie A, et al. Validation of the accuracy of the FAST score for detecting patients with at-risk nonalcoholic steatohepatitis (LAMBERT) in a [place] cohort and comparison to other non-invasive algorithms. PLoS ONE (2021) 17: [id number]. Masha DALAL, Curtis J, Zuri RENE, et al. Enhanced diagnosis of advanced fibrosis and cirrhosis in individuals with NAFLD using FibroScan-based Agile scores. J Hepatol (2022) 78: 247-259. Fibroscan LSM can also be used with laboratory parameters without formulas to assess prognosis. According to the Baveno-VII criteria (El, 2021), Fibroscan LSM ?15 kPa plus a platelet count of ?[id number]/L rules out clinically significant portal hypertension (sensitivity and negative predictive value >90%) in patients with compensated advanced chronic liver disease. El R, Luis J, Aris-Roseline G, Britney T, Shirley Frias on behalf of the Baveno VII Faculty. Baveno VII--Renewing consensus in portal hypertension. J Hepatol (2021) 76: 959-974 Assessing the likelihood of advanced fibrosis in patients with indeterminate liver stiffness measurement (LSM) by Fibroscan (e.g., 8-15 kPa) can be improved by also calculating the FIB-4 score (Darrel et al. Hepat[employer] Communications 2019;3:2961-5525) or NAFLD Fibrosis score (Pitts et al. Clinical Gastroenterology and Hepatology 2019;17:7342-6173 using ??routine clinical data. Note: 1. Fibroscan cannot reliably identify earlier stages of fibrosis (ie distinguish F0 from F1 and F2) and thus a histologic stage cannot be predicted from the Fibroscan reading. 2. Liver stiffness can be increased by factors other than fibrosis including passive congestion, infiltrative processes, active alcoholism, recent moderate alcohol consumption in the 2 weeks before the exam, ??biliary obstruction and marked inflammation. The interpretation of the Fibroscan result provided above may not have taken such clinical factors into account. Disease etiology also influences Fibroscan cutoff values for fibrosis stages and the following cutoffs have been proposed (Katherin et al, Clin Gastro Hepatol 2015; 13:27-36): Cutoffs for Stage 3 and Stage 4 fibrosis respectively: Hepatitis B: >9 and >11.7 kPa Hepatitis C: >9.5 and >12.5 kPa HCV-HIV: >11 and >14 kPa Cholestatic liver diseases: >10 and >17.9 kPa NAFLD/LAMBERT: >10 and >14 kPa CAP estimates of steatosis: normal <200 dB/m mild 200 to 250 dB/m moderate 250-290 dB/m substantial > 290 dB/m (Note that Fibroscan is not a quantitative measure of liver fat.) These criteria are estimates and may change as additional supporting data becomes available. (This additional interpretive data was last updated 09/07/22.) [email or web address] Marlena Mccoy APRN-COMMUNITY LIVING COACH PROCEDURE/M INOR SURGICAL ORDERABLES * LARYNGEAL MASK AIRWAY (01/07/2023 7:46 AM CDT) Narrative John Mendoza APRN-CASTINGS TRIMMER - 01/07/2023 7:46 AM CDT John Mendoza APRN-CASTINGS TRIMMER ? 01/07/2023 ??7:47 AM LMA Placement Procedure/LDA Note: Patient Location: OR. LMA Insertion Date/Time: ??01/07/2023 7:36 AM Procedure: LMA. Pretreatment: 100% O2 Induction: standard IV Patient position: supine. Mask Ventilation: easy Type: ??LMA Size: ??4 Number of Attempts: 1. Placement verified by: CO2 monitor Dentition unchanged? ??Yes Procedure Start Time: 01/07/2023 7:36 AM. Staff Section ? Anesthesia Provider: John Mendoza APRN-CRNA, Performed the procedure ? Provider #1: Sweetie Nugent DO. Sweetie Nugent DO GENERAL ANESTHESIA ORDERABLES * CBC W DIFF (EXTERNAL RESULT ENTRY) (12/30/2022) WBC (EXTERNAL RESULT) 4.9 10^3/ul [facility] Hemoglobin (EXTERNAL RESULT) 12.5 g/dl [facility] Hematocrit (EXTERNAL RESULT) 38.2 % [facility] Platelets (EXTERNAL RESULT) 164 10^3/ul [facility] Neutrophil Absolute (EXTERNAL RESULT) 2.3 10^3/ul [facility] Blood BLOOD SPECIMEN / Unknown 12/30/2022 Historical Provider LAB - HEMATOLOGY ORDERABLES [facility] [address] [place] [address], [place] [phone] * (ABNORMAL) COMP MET PANEL (EXTERNAL RESULT ENTRY) (12/30/2022) Glucose (EXTERNAL) 90 mg/dL [facility] Sodium (EXTERNAL RESULT) 143 mmol/L [facility] Potassium (EXTERNAL RESULT) 4.4 mmol/L [facility] Chloride (EXTERNAL RESULT) 107(A) mmol/L [facility] CO2 (EXTERNAL) 22 mmol/L [facility] Calcium (EXTERNAL RESULT) 9.7 mg/dL [facility] Anion Gap (EXTERNAL RESULT) [facility] BUN (EXTERNAL RESULT) 17 mg/dL [facility] Creatinine (EXTERNAL RESULT) 1.02(A) mg/dl [facility] Alkaline Phosphatase (EXTERNAL RESULT) 88 U/L [facility] ALT (EXTERNAL RESULT) 34 U/L [facility] AST (EXTERNAL RESULT) 39 U/L [facility] Protein Total (EXTERNAL RESULT) 7.5 gm/dL [facility] Albumin (EXTERNAL RESULT) 4.3 gm/dL [facility] Bilirubin Total (EXTERNAL RESULT) 0.3 mg/dL [facility] eGFR MDRD (EXTERNAL RESULT) 64 mL/min/1.7 3m2 [facility] eGFR (EXTERNAL) [facility] Blood BLOOD SPECIMEN / Unknown 12/30/2022 Historical Provider LAB - CHEMISTRY O MARIA A [facility] [address] [place] [address], [facility] [phone] * (ABNORMAL) LIPID PROFILE (EXTERAL RESULT ENTRY) (12/30/2022) Cholesterol (EXTERNAL RESULT) 216(A) mg/dL [facility] Triglycerides (EXTERNAL RESULT) 155(A) mg/dL [facility] HDL (EXTERNAL RESULT) 45 mg/dL [facility] LDL (EXTERNAL RESULT) 143(A) mg/dL [facility] VLDL (EXTERNAL RESULT) 28 mg/dL [facility] Chol HDL Ratio (External Result) [facility] Blood BLOOD SPECIMEN / Unknown 12/30/2022 Historical Provider LAB - CHEMISTRY O VITALIYBLES Performing Organization Address [facility]/ZIP Co de Phone Number [facility] [address] [place] [address], [facility] [phone] * TSH (EXTERNAL RESULT ENTRY) (12/30/2022) TSH (EXTERNAL RESULT) 4.160 uIU/mL [facility] Blood BLOOD SPECIMEN / Unknown 12/30/2022 Historical Provider LAB - CHEMISTRY O MARIA A Performing Organization Address [facility]/ZIP Co de Phone Number [facility] [address] [place] [address], [facility] [phone] * VITAMIN D 25-HYDROXY (10/21/2022 12:03 PM CDT) Only the most recent of7 resultswithin the time period is included. Vitamin D, 25 Hydroxy 44.0 30.0 - 80.0 ng/mL 10/21/2022 12:52 PM CDT [facility] Comment: The recommendations for 25-Hydroxy Vitamin D clinical decision points are as follows: ? Deficient: ? <20.0 ng/mL ? Insufficient: ? 20.0 - 29.9 ng/mL ? Sufficient: ? 30.0 - 100.0 ng/mL ? Potential Toxicity: ??>100 ng/mL Reference: The Endocrine Society Clinical Practice Guidelines. 2011 If the 25-Hydroxy Vitamin D results are inconsitent with clinical evidence, it is recommended that follow-up testing using a method such as LC/MS/MS be performed to confirm the result. ? Blood BLOOD SPECIMEN / Unknown Lab Venipuncture / Unknown 10/21/2022 12:03 PM CDT 10/21/2022 12:07 PM CDT Araseli Byers MD LAB - CHEMISTRY LD SALDAÑA [facility] Organization Address City/State/ZIP Co de Phone Number [facility] [address] [place] [address], [facility] [phone] * MAMMO BILAT SCREENING W [place] (10/21/2022 11:25 AM CDT) Only the most recent of2 resultswithin the time period is included. Anatomical Region Laterality Modality Breast Bilateral Mammography 10/21/2022 11:5 3 AM CDT Impressions 10/21/2022 12:27 PM CDT : 1. Post lumpectomy change in the upper central left breast with coarse heterogeneous and amorphous microcalcifications developing at the lumpectomy site may represent early/developing postsurgical fat necrosis but are indeterminant. 2. No mammographic evidence of right breast malignancy. RECOMMENDATION: ?? Left diagnostic mammogram to include spot magnification and 3-D spot compression views of the lumpectomy site recommended. If indicated at that time, targeted left breast ultrasound will also be performed. OVERALL ASSESSMENT: BI-RADS CATEGORY 0: INCOMPLETE: NEED ADDITIONAL IMAGING EVALUATION. > Interpreting Provider: Peg Kilgore MD on 10/21/2022 12:27 PM Narrative 10/21/2022 12:27 PM CDT EXAMINATION: DIGITAL MAMMO BILAT SCREENING W [place] AND WITH CAD LOCATION: [facility] EXAM DATE: ??10/21/2022 HISTORY: ??Screening. Personal history of left breast cancer diagnosed in 2016 status post lumpectomy followed by radiation only. Patient states she has a family history of breast cancer in her sister diagnosed at the age of 50 as well as lung cancer diagnosed in her mother at the age of 65 and maternal uncle at an undisclosed age. The patient also indicates a family history of lung cancer in her mother at the age of 65, maternal grandfather and maternal uncle as well as paternal aunt. COMPARISON: Comparison is made to prior mammograms dating back to 07/06/2015. TECHNIQUE: Tomosynthesis (3D) and reconstructed synthetic 2-D images acquired and reviewed in the bilateral craniocaudal and mediolateral oblique projections.. A total of 4 images obtained. Scar marker placed on the left breast. Computer-aided detection (CAD) was utilized. ?? BREAST PARENCHYMAL COMPOSITION: Category B: There are scattered areas of fibroglandular density. FINDINGS: Right breast: ??No mammographic evidence of malignancy in the right breast. There is no significant change compared to the prior. Left breast: ??There are postoperative changes in the upper central left breast, mid depth, consistent with prior lumpectomy. A scar marker overlies the skin adjacent to this area. Additional scar marker overlying the skin of the left axilla, indicating the site of prior lymph node biopsy. There are coarse heterogeneous and amorphous calcifications centered within the lumpectomy site. A portion of these microcalcifications appear to be associated with the peripheral rim of an internal fat density mass consistent with calcifying fat necrosis. Other amorphous calcifications are present in this area and difficult to attribute to early calcifying fat necrosis. No suspicious mass or other discrete mammographic finding is noted in the left breast. Araseli Byers MD MAMMO ORDERABLES * BLOOD TYPE VERIFICATION (10/16/2022 6:28 AM CDT) ABO Rh O POS 10/16/2022 7:0 3 AM CDT [facility] Blood Bank BLOOD SPECIMEN / Unknown Venipuncture / Unknown 10/16/2022 6:28 AM CDT 10/16/2022 6:32 AM CDT Kevin Walters DO LAB - BLOOD BANK ORD ERABLES [facility] [address] [phone] * GROSS EXAM PATHOLOGY (STL) (08/22/2022 1:36 PM CDT) Case Report Surgical Pathology Report ? Case: [id number] ? Authorizing Provider: ??Cole Garcia MD ?Collected: ? 08/22/2022 01:36 PM ? Ordering Location: ? [facility] ?Received: ?08/22/2022 01:38 PM ? Pathologist: ? Maxine Talbert MD ? Specimen: ?Slide Consultation, Received 1 slide labelled [id number] from [employer] ? for consult per Dr. Garcia's request. ? 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 08/22/2022 2:20 PM CDT [facility] Microscopic Description Received for review is one slide labeled [id number], accompanied by the corresponding outside pathology report. Microscopic examination substantiates the above diagnosis. Dr. Gio Metcalf agrees. 08/22/2022 2:20 PM CDT [facility] Embedded Images 08/22/2022 2:20 PM CDT [facility] Pathology/Cytolo gy SURGICAL PATHOLOGY CONSULTATION AND REPORT ON REFERRED SLIDES PREPARED ELSEWHERE / Unknown 08/22/2022 1:36 PM CDT 08/22/2022 1:38 PM CDT Cole Garcia MD LAB - PATHOLOGY/CYTO LOGY ORDERABLES Performing Organization Address [facility] Co de Phone Number [facility] [address] [place], [place] [phone] * IMAGING RADIOLOGY XRAY RESULTS ORDER (02/04/2022 5:45 PM CDT) Anatomical Region Laterality Modality Other Narrative 02/04/2022 5:45 PM CDT Ordered by an unspecified provider. Scanned Document IMAGING * (ABNORMAL) HGB HCT PANEL (02/02/2022 1:58 AM CDT) Hemoglobin 9.1(L) 12.0 - 15.6 gm/dL 02/02/2022 3:26 AM CDT [facility] Hematocrit 27.7(L) 35.9 - 45.5 % 02/02/2022 3:26 AM CDT [facility] Blood BLOOD SPECIMEN / Unknown Lab Venipuncture / Unknown 02/02/2022 1:58 AM CDT 02/02/2022 3:14 AM CDT Kevin Britton MD LAB - HEMATOLOGY OR DERABLES Performing Organization Address [facility] de Phone Number [facility] [address] [place] [phone] * ETT LINE PERFORMABLE (02/01/2022 7:30 AM CDT) Narrative Darryl Dunbar APRN-CASTINGS TRIMMER - 02/01/2022 7:30 AM CDT Darryl Dunbar APRN-CRNA ? 02/01/2022 ??7:42 AM Endotracheal Tube Placement: ? Patient Location: OR. Intubation Event Date/Time: ??02/01/2022 7:30 AM Procedure: intubation ([id number]). Procedure Section: ?? Sedation: IV sedation. Indications for Airway Management: ??airway protection Induction: standard IV Patient Position: ??sniffing Mask Ventilation: easy. Blade Type: Oglesby Blade Size: 2 Laryngoscopy View: grade 1 (full cords) Tube: endotracheal tube Placement: oral Tube type: cuff - inflated Tube Size (MM): 7 Depth of Insertion (CM): 21 Measured From: lips Cuff Inflated With: air Number of Attempts: 1. Placement Verified By: direct visualization, CO2 monitor, chest auscultation and bilateral breath sounds CXR Findings: ETT in proper place. Tube secured with: ??adhesive tape. Procedure Start Time: 02/01/2022 7:30 AM. Staff Section ? Anesthesia Provider: Darryl Dunbar, COOK TORTILLA-CASTINGS TRIMMER, Performed the procedure ? Provider #1: Arielle Brandt MD. Additional Comments: DL times 1, OETT placed atraumatically . Arielle Brandt MD GENERAL ANESTHESIA O RDERABLES * Peripheral Nerve Block (02/01/2022 7:00 AM CDT) Narrative Arielle Brandt MD - 02/01/2022 7:00 AM CDT Arielle Brandt MD ? 02/01/2022 10:03 AM Peripheral ??Nerve Block ?? Procedure: Peripheral Nerve Block Patient Location: ??Pre-op Preprocedure Section: ?? Indications: at surgeon's request, at patient's request and postop pain management. Pre-anesthetic Checklist: Patient identified, IV Checked, Site examined and clear, Risks and benefits discussed, Surgical consent verified, Monitors and equipment, Time-out performed, Informed consent obtained, Pre-op evaluation done, Questions answered/anesthesia questions answered, Allergies reviewed and Removal hand/wrist jewelry Monitors: BP and Pulse Ox. Patient Condition: ??sedated, meaningful contact maintained throughout procedure Patient Position: supine Patient Sedated? ??Yes ? Sedation Type: ??mild ? Sedation Agents: ??midazolam (VERSED) injection, 2 mg Procedure Section ?? Laterality: left Block Performed: ??adductor canal Prep: ??Chloraprep Strerile Field: gloves, mask and hat/cap Skin localized with: lidocaine (XYLOCAINE) 1 % injection, 1 mL Needle Type: ??Echogenic insultaed Needle Gauge: ??21 Needle Length: ??50 mm Catheter?No Ultrasound Guided? ?? Yes ? Technique: ??in plane ? Visualization: ??Preliminary scan performed, Important anatomical structures identified, Needle tip visualized throughout the procedure, Target identified, No intraneural or intravascular puncture occurred, Ultrasound image in chart, Local visualized surrounding nerve on ultrasound and Hydrodissection utilized Injection was made incrementally with constant monitoring and aspirations every 5 mL's Injection Assessment: ?? Slow fractionated injection Block Agents or Additives used? Yes Block agents used: ropivacaine (NAROPIN) 5 MG/ML (0.5%) injection, 30 mL Procedure Tolerance: tolerated well Assessment: completed Procedure Start Time: 02/01/2022 7:00 AM. Procedure End Time: 02/01/2022 7:05 AM. Procedure Total Time: 5 ??minutes. Staff Section ? Anesthesia Provider: Arielle Brandt MD, Performed the procedure Arielle Brandt MD GENERAL ANESTHESIA O RDERABLES * (ABNORMAL) URINE MICROSCOPIC ONLY REFLEX TO CULTURE (01/22/2022 10:15 AM CDT) Reflex Status Culture to follow 01/22/2022 11:01 AM CDT [facility] RBC UA 0-2 0 - 5 # /hpf 01/22/2022 11:01 AM CDT [facility] WBC UA 0-5 0 - 5 # /hpf 01/22/2022 11:01 AM CDT [facility] Bacteria UA Trace(A) None Seen 01/22/2022 11:01 AM CDT [facility] Squamous Epithelial Cells 3-5 0 - 5 /hpf 01/22/2022 11:01 AM CDT [facility] Mucus UA 4+ /LPF 01/22/2022 11:01 AM CDT [facility] Hyaline Casts 0-2 0 - 2 /LPF 01/22/2022 11:01 AM CDT [facility] Urine URINE SPECIMEN OBTAINED BY CLEAN CATCH PROCEDURE / Unknown Collection / Unknown 01/22/2022 10:15 AM CDT 01/22/2022 10:31 AM CDT Narrative [facility] - 01/22/2022 11:01 AM CDT Kevin Britton MD LAB - URINALYSIS OR DERABLES [facility] [address] [place] [address] * CULTURE MSSA/MRSA (01/22/2022 10:15 AM CDT) Culture Negative for Staphylococcus aureus (MRSA/MSSA) 01/24/2022 10:24 AM CDT [facility] Microbiology SPECIMEN FROM NASAL FOSSAE / Unknown Collection / Unknown 01/22/2022 10:15 AM CDT 01/22/2022 10:31 AM CDT Kevin Britton MD LAB - MICROBIOLOGY ORDERABLES Performing Organization Address City/[facility]/ZIP Co de Phone Number [facility] [address] [phone] * (ABNORMAL) URINALYSIS REFLEX MICROSCOPIC REFLEX CULTURE (01/22/2022 10:15 AM CDT) Color UA Yellow Straw, Yellow 01/22/2022 10:44 AM CDT [facility] Clarity UA Slt Cloudy(A) Clear 01/22/2022 10:44 AM CDT [facility] Glucose UA Negative Negative 01/22/2022 10:44 AM CDT [facility] Bilirubin UA Negative Negative 01/22/2022 10:44 AM CDT [facility] Ketone UA Negative Negative 01/22/2022 10:44 AM CDT [facility] Specific [place] Plane UA 1.019 1.005 - 1.030 01/22/2022 10:44 AM CDT [facility] Blood UA 1+(A) Negative 01/22/2022 10:44 AM CDT [facility] pH UA 5.0 5.0 - 8.0 pH 01/22/2022 10:44 AM CDT [facility] Protein UA Negative Negative 01/22/2022 10:44 AM CDT [facility] Urobilinogen UA Negative Negative mg/dL 01/22/2022 10:44 AM CDT [facility] Nitrite UA Negative Negative 01/22/2022 10:44 AM CDT [facility] Leukocyte UA Trace(A) Negative 01/22/2022 10:44 AM CDT [facility] Urine Microscopy Urine microscopy to follow 01/22/2022 10:44 AM CDT [facility] Reflex Status Culture to follow 01/22/2022 10:44 AM CDT [facility] Urine URINE SPECIMEN OBTAINED BY CLEAN CATCH PROCEDURE / Unknown Collection / Unknown 01/22/2022 10:15 AM CDT 01/22/2022 10:31 AM CDT Narrative [facility] - 01/22/2022 10:44 AM CDT Kevin Britton MD LAB - URINALYSIS OR DERABLES Performing Organization Address City/[facility]/ZIP Co de Phone Number [facility] [address] [place], [place] [phone] * TRANSFERRIN (01/22/2022 10:15 AM CDT) Only the most recent of2 resultswithin the time period is included. Transferrin 305 180 - 382 mg/dL 01/22/2022 11:01 AM CDT [facility] Blood BLOOD SPECIMEN / Unknown Venipuncture / Unknown 01/22/2022 10:15 AM CDT 01/22/2022 10:31 AM CDT Kevin Britton MD LAB - CHEMISTRY ORD ERABLES Performing Organization Address City/[facility] Co de Phone Number [facility] [address] [place] [phone] * HEMOGLOBIN A1C (01/22/2022 10:15 AM CDT) Hemoglobin A1c 5.1 <5.7 % 01/22/2022 11:05 AM CDT [facility] Estimated Average Glucose 100 mg/dL 01/22/2022 11:05 AM CDT [facility] Blood BLOOD SPECIMEN / Unknown Venipuncture / Unknown 01/22/2022 10:15 AM CDT 01/22/2022 10:31 AM CDT Narrative [facility] - 01/22/2022 11:05 AM CDT HbA1c Interpretation: Normal: < 5.7% Pre-diabetes: 5.7-6.4% Diabetes: Equal to or greater than 6.5% Test results diagnostic of diabetes should be repeated for confirmation. Treatment target values recommended by ADA and other clinical organizations should be used to evaluate metabolic control in patients. This test should not replace glucose testing for patients with Type 1 diabetes, pediatric patients, or women. ??Falsely low HbA1c results may be observed in patients with clinical conditions that shorten erythrocyte life span or decrease mean erythrocyte age such as the presence of unstable hemoglobin variants, elevated hemoglobin F level or other causes of hemolytic anemia. ??HbA1c may not accurately reflect glycemic control when clinical conditions that affect erythrocyte survival are present. ??Severe Iron deficiency anemia may yield falsely high results. ??Hemoglobin A1c assay should not be used to diagnose or monitor diabetes in patients with malignancy, recent blood transfusion, chronic kidney or liver disease. ?? This method may yield falsely low results when hemoglobin (HbF) exceeds 5% in the specimen. The [employer] Machine Operator assay for the measurement of HbA1c is a National Glycohemoglobin Standardization Program (NGSP) certified method. Kevin Britton MD LAB - CHEMISTRY ORD ERABLES [facility] [address] [place] [address] * FRUCTOSAMINE (01/22/2022 10:15 AM CDT) [facility] Fructosamine 216 0 - 285 umol/L 01/23/2022 8:15 AM CDT [facility] ([facility]) Comment: Published reference interval for apparently healthy subjects between age 20 and 60 is 205 - 285 umol/L and in a poorly controlled diabetic population is 228 - 563 umol/L with a mean of 396 umol/L. Blood BLOOD SPECIMEN / Unknown Venipuncture / Unknown 01/22/2022 10:15 AM CDT 01/22/2022 10:31 AM CDT [facility] ([facility]) - 01/23/2022 8:15 AM CDT Performed at: ??[address], [place], [place] ??[id number] Auto [employer] Man: Cecilio Phillips PhD, Phone: ??[phone] Kevin Britton MD LAB - CHEMISTRY ORD ERABLES [facility] ([facility]) [address] [place] [address] * CULTURE URINE (01/22/2022 10:15 AM CDT) Culture Urine 10,000-50,000 CFU/mL urogenital dary KIRAN 01/24/2022 12:28 AM CDT [facility] Urine URINE SPECIMEN OBTAINED BY CLEAN CATCH PROCEDURE / Unknown Collection / Unknown 01/22/2022 10:15 AM CDT 01/22/2022 10:31 AM CDT Kevin Britton MD LAB - MICROBIOLOGY ORDERABLES [facility] [address] [place], [address] [phone] * US ABDOMEN LIMITED (01/18/2022 9:42 AM CDT) Anatomical Region Laterality Modality Abdomen Ultrasound 01/18/2022 9:43 AM CDT Impressions 01/18/2022 9:55 AM CDT IMPRESSION: 1.Diffuse hepatic steatosis without discrete hepatic lesion or intrahepatic biliary dilatation. 2.Status post cholecystectomy. > Dictated by Thomas Cleary MD (residential assistant). I, Basim Holbrook MD have personally reviewed and interpreted this examination/study. > Interpreting Provider: Basim Holbrook MD on 01/18/2022 9:55 AM Narrative 01/18/2022 9:55 AM CDT PROCEDURE: ??US ABDOMEN LIMITED, DATE/TIME OF EXAM: ??01/18/2022 9:43 AM PROCEDURE: ??US ABDOMEN LIMITED, DATE/TIME OF EXAM: ??01/18/2022 9:43 AM, LOCATION ??[facility] INDICATION: K76.0: NAFLD (nonalcoholic fatty liver disease) COMPARISON: 03/24/2020 FINDINGS: The liver is increased in echogenicity, consistent with diffuse hepatic steatosis. There is smooth liver surface contour. No discrete hepatic mass or intrahepatic biliary dilatation is seen. Color Doppler evaluation demonstrates patency of the hepatic and portal veins. The gallbladder is absent. The common bile duct is nondilated, measuring 5 mm. The right kidney measures 11.5 x 4.7 x 4.3 cm. Limited views of the right kidney reveal no evidence of nephrolithiasis or hydronephrosis. The spleen measures and cm in length. The visible pancreas is normal in echogenicity. No ascites is present. Procedure Note Basim Holbrook MD - 01/18/2022 PROCEDURE: US ABDOMEN LIMITED, DATE/TIME OF EXAM: 01/18/2022 9:43 AM PROCEDURE: US ABDOMEN LIMITED, DATE/TIME OF EXAM: 01/18/2022 9:43 AM, LOCATION [facility] [facility] INDICATION: K76.0: NAFLD (nonalcoholic fatty liver disease) COMPARISON: 03/24/2020 FINDINGS: The liver is increased in echogenicity, consistent with diffuse hepatic steatosis. There is smooth liver surface contour. No discrete hepaticmass or intrahepatic biliary dilatation is seen. Color Doppler evaluation demonstrates patency of the hepatic and portal veins. The gallbladder is absent. The common bile duct is nondilated, measuring5 mm. The right kidney measures 11.5 x 4.7 x 4.3 cm. Limited views of theright kidney reveal no evidence of nephrolithiasis or hydronephrosis. Thespleen measures and cm in length. The visible pancreas is normal inechogenicity. No ascites is present. IMPRESSION: 1.Diffuse hepatic steatosis without discrete hepatic lesion orintrahepatic biliary dilatation. 2.Status post cholecystectomy. > Dictated by Thomas Cleary MD (residential assistant). I, Basim Holbrook MD have personally reviewed and interpreted this examination/study. > Interpreting Provider: Basim Holbrook MD on 29:55 AM Marlena Mccoy [facility] [employer] US ORDERABL ES * MT DRAIN/INJECT LARGE JOINT/BURSA (09/26/2021 12:05 PM CDT) Narrative Kevin Britton MD - 09/26/2021 12:05 PM CDT Kevin Britton MD ? 09/27/2021 ??7:15 AM Orthopaedic Surgery Procedure Note Diagnosis: Left knee pain Procedure: Injection of corticosteroid into the left knee Indications: Milagros Torres is a 56 year old female who has left knee pain and arthritis. Procedure Details: The patient was informed of her condition, and the potential benefits of injection of steroid. The patient was counseled as to the risks of the procedure and allergies were reviewed. The patient was understanding and agreeable. ?? The patient was placed into the appropriate position. The area was prepped with betadine and alcohol. Utilizing the peripatellar portal, the skin, subcutaneous, and pericapsular tissues were injectedwith 3 cc 1% lidocaine without epinephrine using a 21 Ga needle. The patient's left knee joint was then entered. Confirmation of location inside the joint was evidenced by aspiration of straw colored synovial fluid. 2 cc of Kenalog/3cc lidocaine was injected into the joint. The needle was removed and the needle site cleaned with alcohol and dressed with a sterile bandage. The procedure was performed under sterile conditions. ?? The patient tolerated the procedure well. Remainder of plan per note. Injection performed by: Myself Blood Loss: ??Minimal Kevin Britton MD 09/26/2021 12:05 PM Kevin Britton MD PROCEDURE/MINOR ALCON GICAL ORDERABLES * (ABNORMAL) LIPID PROFILE (08/06/2021 10:49 AM CDT) Cholesterol Total 194 <200 mg/dL 08/06/2021 11:28 AM [facility] HDL 45 >40 mg/dL 08/06/2021 11:28 AM [facility] Comment: ATP III Classification of HDL Cholesterol: ? <40 mg/dL: ??Considered a major risk factor. ? >60 mg/dL: ??Considered a negative risk factor. ? LDL Calculated 116(H) <100 mg/dL 08/06/2021 11:28 AM [facility] Comment: ATP III Classification of LDL Cholesterol: ?<100 mg/dL: ??Optimal ? 100 - 129 mg/dL: ??Near Optimal/Above Optimal ? 130 - 159 mg/dL: ??Borderline High ? 160 - 189 mg/dL: ??High ?>190 mg/dL: ??Very High ? Triglycerides 166(H) <150 mg/dL 08/06/2021 11:28 AM CDT [facility] Comment: ATP III Classification of Triglycerides: ?<150 mg/dL: ??Normal ? 150 - 199 mg/dL: ??Borderline High ? 200 - 400 mg/dL: ??High ?>500 mg/dL: ??Very High Blood BLOOD SPECIMEN / Unknown Lab Venipuncture / Unknown 08/06/2021 10:49 AM CDT 08/06/2021 10:56 AM CDT Araseli Byers MD [facility] Organization Address City/State/ZIP Co de Phone Number [facility] [address] [place] [phone], [facility] [phone] * MT DRAIN/INJECT LARGE JOINT/BURSA (06/26/2021 12:52 PM DOOR REPAIRER BUS) Narrative Kendall Reid MD - 06/26/2021 12:52 PM DOOR REPAIRER BUS Kendall Reid MD ? 06/26/2021 12:53 PM INJECTION PROCEDURE NOTE: ??Pros and cons of injection were discussed with the patient. ??Patient has elected and consented to proceed. ??The superolateral aspect of the left knee(s) was prepped in the usual sterile manner. ??The skin, subcutaneous tissues and capsule were anesthetized with 1% xylocaine. ??An 18g needle was inserted into the knee, 8 ccs of clear yellow fluid was then aspirated, and 80 mgs triamcinalone and 3 ccs 1% xylocaine were then injected. ??This was well tolerated. Kenadll Reid MD PROCEDURE/MINOR SURG ICAL ORDERABLES * MT DRAIN/INJECT LARGE JOINT/BURSA (02/06/2021 10:20 AM CDT) Narrative Kevin Britton MD - 02/06/2021 10:20 AM CDT Kevin Britton MD ? 02/21/2021 ??1:52 PM Orthopaedic Surgery Procedure Note Diagnosis: Left knee pain Procedure: Injection of corticosteroid into the left knee Indications: Milagros Torres is a 55 year old female who has left knee pain and arthritis. Procedure Details: The patient was informed of her condition, and the potential benefits of injection of steroid. The patient was counseled as to the risks of the procedure and allergies were reviewed. The patient was understanding and agreeable. ?? The patient was placed into the appropriate position. The area was prepped with betadine and alcohol. Utilizing the peripatellar portal, the skin, subcutaneous, and pericapsular tissues were injectedwith 3 cc 1% lidocaine without epinephrine using a 21 Ga needle. The patient's left knee joint was then entered. Confirmation of location inside the joint was evidenced by aspiration of straw colored synovial fluid. 2 cc of Kenalog/3cc lidocaine was injected into the joint. The needle was removed and the needle site cleaned with alcohol and dressed with a sterile bandage. The procedure was performed under sterile conditions. ?? The patient tolerated the procedure well. Remainder of plan per note. Injection performed by: ??Resident on service ? Blood Loss: ??Minimal Kevin Britton MD 02/21/2021 1:52 PM Kevin Britton MD PROCEDURE/MINOR ALCON GICAL ORDERABLES * ETT LINE PERFORMABLE (12/05/2020 8:09 AM CDT) Narrative Rubin Sexton APRN-DULCE - 12/05/2020 8:09 AM CDT Rubin Sexton APRN-CRNA ? 12/05/2020 ??8:10 AM Endotracheal Tube Placement: ? Patient Location: OR. Intubation Event Date/Time: ??12/05/2020 7:46 AM Procedure: intubation (88268). Procedure Section: ?? Sedation: under general anesthesia. Indications for Airway Management: ??anesthesia Induction: standard IV Patient Position: ??sniffing and supine Mask Ventilation: easy. Blade Type: Kevyn Blade Size: 4 Laryngoscopy View: grade 1 (full cords) Intubation Adjuncts: stylet Tube: endotracheal tube Placement: oral Tube Size (MM): 7 Depth of Insertion (CM): 22 Cuff Inflated With: air Number of Attempts: 1. Placement Verified By: direct visualization, bilateral breath sounds and CO2 monitor Tube secured with: ??adhesive tape. Dentition unchanged? ??Yes Difficult Airway? ??No. Procedure Start Time: 12/05/2020 7:46 AM. Staff Section ?? Anesthesia Provider: Rubin Sexton APRN-CASTINGS TRIMMER, Performed the procedure Additional Comments: DVOI x ! Per emergency medicine resident. Tyler Cat MD GENERAL ANESTHESIA ORDERABLES * MT LIVER ELASTOGRAPHY (11/10/2020 8:36 AM CDT) Narrative Liborio Hinojosa MD - 11/10/2020 8:36 AM CDT Liborio Hinojosa MD ? 11/14/2020 ??5:38 PM Diagnosis: NAFLD RN verified patient not , no implanted devices and NPO for prior 3 hours. Procedure explained and consent signed. Date of Exam: 11/10/2020 Liver Stiffness: (LSM, kPa) median: ??9.4 IQR (interquartile range): ?? 0.7 IQR/Median% (ideally < 30%): ??7 CAP (controlled attenuation parameter): ??332 Technical Difficulty: None Ordering Provider: Marlena Mccoy NP Phone Fax Fibroscan interpretation: I have personally reviewed the Fibroscan report and associated tracings. The calculated Liver Stiffness Measurement (LSM, kPa) indicates that: The probability of advanced liver fibrosis is: moderate. The loss of ultrasound signal, (controlled attenuation parameter, CAP [dB/m]), indicates that the probability of hepatic steatosis is: high. Liborio Hinojosa MD The following criteria are used to indicate the probability of advanced (stage 3-4) fibrosis: < 7.0 kPa: low 7.0-8.9 kPa: low to moderate 9.0-14.9 kPa: moderate 15-20 kPa: high > 20 kPa: very high Liver stiffness > 20 kPa is also associated with a high probability of complications of portal hypertension including varices and ascites. Liver stiffness > 50 kPa is associated with a high risk of variceal bleeding. These interpretations are based on the following published data: Horace PJ, Kezia M, Valerie M, et al. Accuracy of FibroScan controlled attenuation parameter and liver stiffness measurement in assessing steatosis and fibrosis in patients with nonalcoholic fatty liver disease. Gastroenterology 2019;156:4696-6359. Iris MS, Abilio R, Van Anatoliy ML, et al. Vibration-controlled transient elastography to assess fibrosis and steatosis in patients with nonalcoholic fatty liver disease. Clin Gastroenterol Hepatol 2019;17:156-163. Note: 1. Fibroscan cannot reliably identify earlier stages of fibrosis (ie distinguish F0 from F1 and F2) and thus a histologic stage cannot be predicted from the Fibroscan reading. 2. Assessing the likelihood of advanced fibrosis in patients with indeterminate liver stiffness measurement (LSM) by Fibroscan (e.g., 8-15 kPa) can be improved by also calculating the FIB4 score (Darrel et al. Hepatology Communications 2019;3:4926-0363) or NAFLD Fibrosis score (Pitts et al. Clinical Gastroenterology and Hepatology 2019;17:5745-0810. from routine clinical data. 3. Liver stiffness can be increased by factors other than fibrosis including passive congestion, infiltrative processes, active alcoholism, biliary obstruction and marked inflammation. The interpretation of the Fibroscan result provided above may not have taken such clinical factors into account. Disease etiology also influences Fibroscan cutoff values for fibrosis stages and the following cutoffs have been proposed (Katherin et al, Clin Gastro Hepatol 2015; 13:27-36): Cutoffs for Stage 3 and Stage 4 fibrosis respectively: Hepatitis B: >9 and >11.7 kPa Hepatitis C: >9.5 and >12.5 kPa HCV-HIV: >11 and >14 kPa Cholestatic liver diseases: >10 and >17.9 kPa NAFLD/LAMBERT: >10 and >14 kPa CAP estimates of steatosis: normal <200 dB/m mild 200 to 250 dB/m moderate 250-290 dB/m substantial > 290 dB/m (Note that Fibroscan is not a quantitative measure of liver fat.) These criteria are estimates and may change as additional supporting data becomes available. [email or web address] Marlena Mccoy [facility] [employer] PROCEDURE/M INOR SURGICAL ORDERABLES * MT DRAIN/INJECT LARGE JOINT/BURSA (11/07/2020 10:06 AM CDT) Narrative Kevin Britton MD - 11/07/2020 10:06 AM CDT Kevin Britton MD ? 11/07/2020 10:19 AM Orthopaedic Surgery Procedure Note Diagnosis: Left knee pain Procedure: Injection of corticosteroid into the left knee Indications: Milagros Torres is a 55 year old female who has left knee pain and arthritis. Procedure Details: The patient was informed of her condition, and the potential benefits of injection of steroid. The patient was counseled as to the risks of the procedure and allergies were reviewed. The patient was understanding and agreeable. ?? The patient was placed into the appropriate position. The area was prepped with betadine and alcohol. Utilizing the peripatellar portal, the skin, subcutaneous, and pericapsular tissues were injectedwith 3 cc 1% lidocaine without epinephrine using a 21 Ga needle. The patient's left knee joint was then entered. Confirmation of location inside the joint was evidenced by aspiration of straw colored synovial fluid. 2 cc of Kenalog/3cc lidocaine was injected into the joint. The needle was removed and the needle site cleaned with alcohol and dressed with a sterile bandage. The procedure was performed under sterile conditions. ?? The patient tolerated the procedure well. Remainder of plan per note. Injection performed by: ??Resident on service ? Kevin Britton MD 11/07/2020 10:06 AM Kevin Britton MD PROCEDURE/MINOR ALCON GICAL ORDERABLES * MAMMO BILAT SCREENING (10/19/2020 10:41 AM CDT) Anatomical Region Laterality Modality Breast Bilateral Mammography 10/19/2020 10:2 4 AM CDT Impressions 10/19/2020 10:27 AM CDT IMPRESSION: No mammographic evidence of malignancy, status post left breast conservation therapy. RECOMMENDATION: ??Screening mammography in one year, pending no interval breast concerns. Dr. Sumner discussed the results with the patient at the time of her exam. OVERALL ASSESSMENT: BI-RADS CATEGORY 2: BENIGN. This report was electronically signed by GERMAINE SUMNER M.D. ??on 10/19/2020 10:27 AM . Narrative 10/19/2020 10:27 AM CDT EXAMINATION: DIGITAL MAMMO BILAT SCREENING WITH TOMOSYNTHESIS AND WITH CAD DATE OF EXAM: ??10/19/2020 10:19 AM HISTORY: Screening. History of breast cancer and status post left breast conservation therapy in 2016. COMPARISON: Prior breast imaging studies back to 2016, with the most recent dated 10/13/2019. TECHNIQUE: ??Tomosynthesis (3-D) and reconstructed C - view (synthetic 2-D) images acquired and reviewed in the bilateral craniocaudal and mediolateral oblique projections. ??Scar markers were placed on the left breast. Computer-aided detection (CAD) was utilized. BREAST PARENCHYMAL COMPOSITION: Category B: There are scattered areas of fibroglandular density. FINDINGS: ??There are no suspicious findings or evidence of malignancy on mammography. Status post left breast conservation surgery. No change from prior. Erma Neri MD MAMMO ORDERABLES * ENDOSCOPY, COLON, SCREENING (09/18/2020 11:49 AM CDT) Report Endoscopy POC Endoscopy Department Report _ Patient Name: Milagros Torres ?Procedure Date: 09/18/2020 11:49 AM ?Date of : 1965 Classification: Outpatient ?Gender: Female Ethnicity: Not or ? Race: White _ Providers: ?Joseph Basilio MD Referring : ? Marlena Mccoy, [employer] [employer] [facility] [employer]; Asher Garrison, ?; Erma Neri MD Procedure: ?Colonoscopy Indications: ?Screening for colorectal malignant neoplasm Medications: ?See the Anesthesia note for documentation of the ?administered medications Patient Profile: ?55F here for CRCS. FMH notable for colon polyps of ?unclear grade in FDRs. Description of Procedure: Pre-Anesthesia Assessment: Prior to the procedure, ?a History and Physical was performed, and patient ?medications and allergies were reviewed. The ?patient's tolerance of previous anesthesia was also ?reviewed. The risks and benefits of the procedure ?and the sedation options and risks were discussed ?with the patient. All questions were answered, and ?informed consent was obtained. Prior ?Anticoagulants: The patient has taken no previous ?anticoagulant or antiplatelet agents. ASA Grade ?Assessment: II - A patient with mild systemic ?disease. After reviewing the risks and benefits, ?the patient was deemed in satisfactory condition to ?undergo the procedure. After I obtained informed ?consent, the scope was passed under direct vision. ?Throughout the procedure, the patient's blood ?pressure, pulse, and oxygen saturations were ?monitored continuously. The -[id number] was ?introduced through the anus and advanced to the ?terminal ileum. The colonoscopy was performed ?without difficulty. The patient tolerated the ?procedure well. The quality of the bowel ?preparation was evaluated using the BBPS (Ducor ?Bowel Preparation Scale) with scores of: Right ?Colon = 3, Transverse Colon = 3 and Left Colon = 3 ?(entire mucosa seen well with no residual staining, ?small fragments of stool or opaque liquid). The ?total BBPS score equals 9. ? Findings: ? The examined portion of the terminal ileum appeared normal. ? A 2 mm polyp was found in the cecum. The polyp was sessile. The polyp ? was removed with a jumbo cold forceps. Resection and retrieval were ? complete. ? A 3 mm polyp was found in the ascending colon. The polyp was sessile. ? The polyp was removed with a jumbo cold forceps. Resection and retrieval ? were complete. ? A 6 mm polyp was found in the descending colon. The polyp was sessile. ? The polyp was removed with a cold snare. Resection and retrieval were ? complete. To prevent bleeding after the polypectomy, one hemostatic clip ? was successfully placed (Resolution 360, MR conditional). There was no ? bleeding at the end of the procedure. ? Multiple small and large-mouthed diverticula were found in the entire ? colon. ? Medium-sized non-bleeding internal hemorrhoids were found during ? retroflexion. ? The perianal and digital rectal examinations were normal. ? Estimated Blood Loss: ? Estimated blood loss was minimal. Complications: ?No immediate complications. Impression: ? - The examined portion of the terminal ileum was ?normal. ?- One 2 mm polyp in the cecum, removed with a jumbo ?cold forceps. Resected and retrieved. ?- One 3 mm polyp in the ascending colon, removed ?with a jumbo cold forceps. Resected and retrieved. ?- One 6 mm polyp in the descending colon, removed ?with a cold snare. Resected and retrieved. One clip ?placed for prophylaxis (MR conditional). ?- Diverticulosis in the entire examined colon. ?- Non-bleeding internal hemorrhoids. Moderate Sedation: ? MAC Recommendation: ? - Patient has a contact number available for ?emergencies. The signs and symptoms of potential ?delayed complications were discussed with the ?patient. Return to normal activities tomorrow. ?Written discharge instructions were provided to the ?patient. ?- Resume previous diet. ?- Continue present medications. ?- Await pathology results. ?- Repeat Colonoscopy in 3 years for surveillance ?unless otherwise determined based on pathology ?results. ? Attending Participation: ??I personally performed the entire procedure. ? Procedure Code(s): ? --- Professional --- ? 88628, Colonoscopy, flexible; with removal of tumor(s), polyp(s), or ? other lesion(s) by snare technique ? 02308, 59, Colonoscopy, flexible; with biopsy, single or multiple Diagnosis Code(s): ?--- Professional --- ?Z12.11, Encounter for screening for malignant ?neoplasm of colon ?K64.8, Other hemorrhoids ?K63.5, Polyp of colon ?K57.30, Diverticulosis of large intestine without ?perforation or abscess without bleeding CPT copyright 2019 [employer]. All rights reserved. The codes documented in this report are preliminary and upon front office specialist review may be revised to meet current compliance requirements. Joseph Basilio MD 09/18/2020 12:42:42 PM Note Initiated On: 09/18/2020 11:49 AM Number of Addenda: 0 ? [facility] ? [address] [place] [address] [facility] 09/18/2020 11:4 9 AM CDT Joseph Basilio MD GI PROCEDURE ORDERABLES [facility] * MT DRAIN/INJECT LARGE JOINT/BURSA (08/01/2020 10:34 AM CDT) Narrative Kevin Britton MD - 08/01/2020 10:34 AM CDT Kevin Britton MD ? 08/01/2020 12:20 PM Orthopaedic Surgery Procedure Note Diagnosis: Left knee pain Procedure: Injection of corticosteroid into the left knee Indications: Milagros Torres is a 55 year old female who has left knee pain and arthritis. Procedure Details: The patient was informed of her condition, and the potential benefits of injection of steroid. The patient was counseled as to the risks of the procedure and allergies were reviewed. The patient was understanding and agreeable. ?? The patient was placed into the appropriate position. The area was prepped with betadine and alcohol. Utilizing the peripatellar portal, the skin, subcutaneous, and pericapsular tissues were injectedwith 3 cc 1% lidocaine without epinephrine using a 21 Ga needle. The patient's left knee joint was then entered. Confirmation of location inside the joint was evidenced by aspiration of straw colored synovial fluid. 2 cc of Kenalog/3cc lidocaine was injected into the joint. The needle was removed and the needle site cleaned with alcohol and dressed with a sterile bandage. The procedure was performed under sterile conditions. ?? The patient tolerated the procedure well. Remainder of plan per note. Injection performed by: Myself Kevin Britton MD 08/01/2020 10:34 AM Kevin Britton MD PROCEDURE/MINOR ALCON GICAL ORDERABLES * PT-INR [facility] (05/12/2020 10:28 AM DOOR REPAIRER BUS) PT 12.6 12.1 - 14.8 Seconds 05/12/2020 10:52 AM DOOR REPAIRER BUS [facility] INR 1.0 See Comment 05/12/2020 10:52 AM [facility] Comment:The suggested therap eutic range for standard coumadin (warfarin) therapy is an INR of 2.0-3.0. For high-risk patients (Mechanical Mitral Valve Prosthesis, etc.), the suggested prophylactic therapeutic range is an INR of 2.5-3.5. Blood BLOOD SPECIMEN / Unknown Lab Venipuncture / Unknown 05/12/2020 10:28 AM DOOR REPAIRER BUS 05/12/2020 10:43 AM [facility] Marlena Mccoy [facility] [employer] LAB - COAGU LATION ORDERABLES [facility] [address] [place] [address], [facility] [phone] * ÁLVARO BLOOD SCREEN W/REFLEX TITER (05/12/2020 10:28 AM DOOR REPAIRER BUS) ÁLVARO IgG None Detected None Detected 05/14/2020 5:14 AM [facility] [place] ([facility]) Comment: If suspicion of connective tissue disease is strong and ÁLVARO EIA is negative, consider testing for ÁLVARO by IFA ([id number]). INTERPRETIVE INFORMATION: Anti-Nuclear Antibodies (ÁLVARO), IgG by SAJAN Antinuclear Antibodies (ÁLVARO), IgG by SAJAN: ÁLVARO specimens are screened using enzyme-linked immunosorbent assay (SAJAN) methodology. All SAJAN results reported as Detected are further tested by indirect fluorescent assay (IFA) using HEp-2 substrate with an IgG-specific conjugate. The ÁLVARO SAJAN screen is designed to detect antibodies against dsDNA, histones, SS-A (Ro), SS-B (La), Ríos, Ríos/ENTRY LEVEL STAFF ACCOUNTANT, Scl-70, Remedios-1, centromeric proteins, other antigens extracted from the HEp-2 cell nucleus. ÁLVARO SAJAN assays have been reported to have lower sensitivities than ÁLVARO IFA for systemic autoimmune rheumatic diseases (SARD). Negative results do not necessarily rule out SARD. Performed By: [facility] [address] [place] [id number] Plan Consultant: Milagros Sumner MD Blood BLOOD SPECIMEN / Unknown Lab Venipuncture / Unknown 05/12/2020 10:28 AM DOOR REPAIRER BUS 05/12/2020 11:02 AM DOOR REPAIRER BUS Marlena Mccoy APRN-COMMUNITY LIVING COACH LAB - CHEMI STRY ORDERABLES [facility]) [address] [place] [id number], [facility] * IRON BLOOD (05/12/2020 10:28 AM DOOR REPAIRER BUS) Iron 126 40 - 150 mcg/dL 05/12/2020 11:32 AM DOOR REPAIRER BUS [facility] Blood BLOOD SPECIMEN / Unknown Lab Venipuncture / Unknown 05/12/2020 10:28 AM DOOR REPAIRER BUS 05/12/2020 11:02 AM DOOR REPAIRER BUS Marlena Mccoy APRN-COMMUNITY LIVING COACH LAB - CHEMI STRY ORDERABLES Performing Organization Address City/[facility]/ZIP Co de Phone Number [address] [phone], [facility] [phone] * HEPATITIS B CORE ANTIBODY (05/12/2020 10:28 AM DOOR REPAIRER BUS) HBc Antibody Total Non-reacti ve Non-reacti ve 05/12/2020 11:54 AM DOOR REPAIRER BUS [facility] Blood BLOOD SPECIMEN / Unknown Lab Venipuncture / Unknown 05/12/2020 10:28 AM DOOR REPAIRER BUS 05/12/2020 11:02 AM DOOR REPAIRER BUS Marlena Mccoy APRN-COMMUNITY LIVING COACH LAB - CHEMI STRY ORDERABLES Performing Organization Address City/[facility]/ZIP Co de Phone Number [address] [phone], [facility] [phone] * GGT (05/12/2020 10:28 AM DOOR REPAIRER BUS) GGT 54 9 - 64 Units/L 05/12/2020 11:05 AM DOOR REPAIRER BUS [facility] Blood BLOOD SPECIMEN / Unknown Lab Venipuncture / Unknown 05/12/2020 10:28 AM DOOR REPAIRER BUS 05/12/2020 10:37 AM DOOR REPAIRER BUS Marlena Mccoy APRN-COMMUNITY LIVING COACH LAB - CHEMI STRY ORDERABLES [address] [phone], [facility] [phone] * IGG BLOOD (05/12/2020 10:28 AM DOOR REPAIRER BUS) Pathologist [facility] IgG 1,474 540-1,822 mg/dL 05/12/2020 11:32 AM DOOR REPAIRER BUS [facility] Blood BLOOD SPECIMEN / Unknown Lab Venipuncture / Unknown 05/12/2020 10:28 AM DOOR REPAIRER BUS 05/12/2020 11:02 AM DOOR REPAIRER BUS Marlenajamey Mccoy [facility] - CHEMI STRY ORDERABLES Performing Organization Address [facility] Co de Phone Number [address] [phone], [facility] [phone] * HEPATITIS C ANTIBODY (05/12/2020 10:28 AM DOOR REPAIRER BUS) [facility] Hepatitis C Antibody Non-react pura Non-reac tive 05/12/2020 11:54 AM DOOR REPAIRER BUS [facility] Comment:Hepatitis C Antibody screen indicates no serologic evidence of past or current infection with Hepatitis C Virus. Patients with unexplained liver disease who are immunocompromised or suspected of having acute Hepatitis C infection may benefit from Nucleic Acid Test (KRISTIAN) for Hepatitis C Viral RNA to confirm Hepatitis C status. Blood BLOOD SPECIMEN / Unknown Lab Venipuncture / Unknown 05/12/2020 10:28 AM DOOR REPAIRER BUS 05/12/2020 11:02 AM DOOR REPAIRER BUS Marlena Mccoy APRN-[facility] - CHEMI STRY ORDERABLES Performing Organization Address City/[facility]/ZIP Co de Phone Number [address] [address], [facility] [phone] * MT DRAIN/INJECT LARGE JOINT/BURSA (05/02/2020 11:04 AM DOOR REPAIRER BUS) Narrative Kevin Britton MD - 05/02/2020 11:04 AM DOOR REPAIRER BUS Kevin Britton MD ? 05/02/2020 11:04 AM Orthopaedic Surgery Procedure Note Diagnosis: Left knee pain Procedure: Injection of corticosteroid into the left knee Indications: Milagros Torres is a 54 year old female who has left knee pain and arthritis. Procedure Details: The patient was informed of her condition, and the potential benefits of injection of steroid. The patient was counseled as to the risks of the procedure and allergies were reviewed. The patient was understanding and agreeable. ?? The patient was placed into the appropriate position. The area was prepped with betadine and alcohol. Utilizing the peripatellar portal, the skin, subcutaneous, and pericapsular tissues were injectedwith 3 cc 1% lidocaine without epinephrine using a 21 Ga needle. The patient's left knee joint was then entered. Confirmation of location inside the joint was evidenced by aspiration of straw colored synovial fluid. 2 cc of Kenalog/3cc lidocaine was injected into the joint. The needle was removed and the needle site cleaned with alcohol and dressed with a sterile bandage. The procedure was performed under sterile conditions. ?? The patient tolerated the procedure well. Remainder of plan per note. Injection performed by: ??Resident on service ? Kevin Britton MD 05/02/2020 11:04 AM Kevin Britton MD PROCEDURE/MINOR ALCON GICAL ORDERABLES * US ABDOMEN COMPLETE (03/24/2020 3:17 PM DOOR REPAIRER BUS) Anatomical Region Laterality Modality Abdomen Ultrasound 03/24/2020 3:14 PM DOOR REPAIRER BUS Impressions 03/24/2020 3:43 PM DOOR REPAIRER BUS IMPRESSION: 1. Diffuse hepatic steatosis without discrete hepatic lesion or intrahepatic biliary dilation. Patent hepatic vasculature. 2. Cholelithiasis without evidence of acute cholecystitis. 3. Normal renal size. No evidence of nephrolithiasis or hydronephrosis. Dictated by Aranza Rascon DO (resident). This report was approved ??by Aranza Rascon ?? on 03/24/2020 3:28 PM . IDr. Linda M.D. have personally reviewed and interpreted this examination/study. This report was electronically signed by Linda ROSS M.D. ??on 03/24/2020 3:43 PM . Narrative 03/24/2020 3:43 PM DOOR REPAIRER BUS EXAMINATION: Complete abdominal sonogram HISTORY: 54-year-old female with breast cancer, elevated liver enzymes COMPARISON: No prior study is available for comparison. FINDINGS: The liver is increased in echogenicity without nodularity. No discrete hepatic mass or intrahepatic biliary dilation is seen. Color Doppler evaluation demonstrates patency of the hepatic and portal veins. Gallstones are seen within the gallbladder without pericholecystic fluid. The gallbladder wall is normal in thickness, measuring 2-3 mm. Sonographic Montgomery's sign is negative. The common bile duct is nondilated, measuring 5 mm. The spleen measures 9.3 cm in length. The visible pancreas is normal in echogenicity. No ascites is present. The right kidney measures 10.1 x 4.1 x 4.2 cm. The left kidney measures 9.9 x 4.3 x 4.5 cm. There is no evidence of hydronephrosis, nephrolithiasis, or solid renal mass. The visible aorta and inferior vena cava are patent. Procedure Note La Ross MD - 03/24/2020 EXAMINATION: Complete abdominal sonogram HISTORY: 54-year-old female with breast cancer, elevated liver enzymes COMPARISON: No prior study is available for comparison. FINDINGS: The liver is increased in echogenicity without nodularity. No discrete hepatic mass or intrahepatic biliary dilation is seen. Color Doppler evaluation demonstrates patency of the hepatic and portal veins. Gallstones are seen within the gallbladder without pericholecysticfluid. The gallbladder wall is normal in thickness, measuring 2-3 mm.Sonographic Montgomery's sign is negative. The common bile duct is nondilated, measuring5 mm. The spleen measures 9.3 cm in length. The visible pancreas is normal in echogenicity. No ascites is present. The right kidney measures 10.1 x 4.1 x 4.2 cm. The left kidney measures 9.9 x 4.3 x 4.5 cm. There is no evidence of hydronephrosis, nephrolithiasis, or solid renal mass. The visible aorta and inferior vena cava are patent. IMPRESSION: 1. Diffuse hepatic steatosis without discrete hepatic lesion or intrahepatic biliary dilation. Patent hepatic vasculature. 2. Cholelithiasis without evidence of acute cholecystitis. 3. Normal renal size. No evidence of nephrolithiasis or hydronephrosis. Dictated by Aranza Rascon DO (resident). This report was approved by Aranza Rascon on 03/24/2020 3:28 PM . I, Dr. Linda ROSS M.D. have personally reviewed and interpretedthis examination/study. This report was electronically signed by Linda ROSS M.D. on 03/24/2020 3:43 PM . Erma Neri MD US ORDERABLES * MT DRAIN/INJECT LARGE JOINT/BURSA (02/01/2020 11:12 AM CDT) Kevin Hoffman MD - 02/01/2020 11:12 AM CDT Kevin Britton MD ? 02/01/2020 11:13 AM Orthopaedic Surgery Procedure Note Diagnosis: Left knee pain Procedure: Injection of corticosteroid into the left knee Indications: Milagros Torres is a 54 year old female who has left knee pain and arthritis. Procedure Details: The patient was informed of her condition, and the potential benefits of injection of steroid. The patient was counseled as to the risks of the procedure and allergies were reviewed. The patient was understanding and agreeable. ?? The patient was placed into the appropriate position. The area was prepped with betadine and alcohol. Utilizing the peripatellar portal, the skin, subcutaneous, and pericapsular tissues were injectedwith 3 cc 1% lidocaine without epinephrine using a 21 Ga needle. The patient's left knee joint was then entered. Confirmation of location inside the joint was evidenced by aspiration of straw colored synovial fluid. 2 cc of Kenalog/3cc lidocaine was injected into the joint. The needle was removed and the needle site cleaned with alcohol and dressed with a sterile bandage. The procedure was performed under sterile conditions. ?? The patient tolerated the procedure well. Remainder of plan per note. Kevin Britton MD 02/01/2020 11:13 AM Kevin Britton MD PROCEDURE/MINOR ALCON GICAL ORDERABLES * MT DRAIN/INJECT LARGE JOINT/BURSA (11/02/2019 11:32 AM CDT) Kevin Hoffman MD - 11/02/2019 11:32 AM CDT Kevin Britton MD ? 11/02/2019 11:32 AM Orthopaedic Surgery Procedure Note Diagnosis: Left knee pain Procedure: Injection of corticosteroid into the left knee Indications: Milagros Torres is a 54 year old female who has left knee pain and arthritis. Procedure Details: The patient was informed of her condition, and the potential benefits of injection of steroid. The patient was counseled as to the risks of the procedure and allergies were reviewed. The patient was understanding and agreeable. ?? The patient was placed into the appropriate position. The area was prepped with betadine and alcohol. Utilizing the peripatellar portal, the skin, subcutaneous, and pericapsular tissues were injectedwith 3 cc 1% lidocaine without epinephrine using a 21 Ga needle. The patient's left knee joint was then entered. Confirmation of location inside the joint was evidenced by aspiration of straw colored synovial fluid. 2 cc of Kenalog/3cc lidocaine was injected into the joint. The needle was removed and the needle site cleaned with alcohol and dressed with a sterile bandage. The procedure was performed under sterile conditions. ?? The patient tolerated the procedure well. Remainder of plan per note. Kevin Britton MD 11/02/2019 11:32 AM Kevin Britton MD PROCEDURE/MINOR ALCON GICAL ORDERABLES * MAMMO BILAT DIAGNOSTIC (10/13/2019 10:51 AM CDT) Only the most recent of2 resultswithin the time period is included. Anatomical Region Laterality Modality Breast Bilateral Mammography 10/13/2019 10:4 6 AM CDT Impressions 10/13/2019 12:29 PM CDT IMPRESSION: No evidence of malignancy in either breast. ASSESSMENT: BI-RADS Category 2: Benign finding(s). RECOMMENDATION: Annual bilateral diagnostic mammogram. Findings and recommendations were discussed with the patient by Dr. Irving. Dictated by Car Bañuelos MD (residential assistant). I, Dr. HILARIA IRVING M.D. have personally reviewed and interpreted this examination/study. This report was electronically signed by HILARIA IRVING M.D. ??on 10/13/2019 12:29 PM . Narrative 10/13/2019 12:29 PM CDT EXAMINATION: BILATERAL DIAGNOSTIC MAMMOGRAM TECHNIQUE: Images were performed using 3D tomosynthesis images with reconstructed/synthetic 2D images and CAD analysis. DATE: 10/13/2019. HISTORY: 54-year-old female with history of left breast cancer status post breast conservation therapy in 2016. COMPARISON: Multiple prior mammograms, the most recent from 10/08/2018 dating back to 07/06/2015. BREAST COMPOSITION: There are scattered areas of fibroglandular density. FINDINGS: Redemonstrated postsurgical changes of the left breast. No suspicious mass, architectural distortion, or grouped microcalcifications are seen in either breast. Erma Neri MD MAMMO ORDERABLES * TSH (09/13/2019 2:12 PM CDT) TSH 3.203 0.350 - 4.940 uIU/mL 09/13/2019 3:41 PM CDT [facility] Blood BLOOD SPECIMEN / Unknown Lab Venipuncture / Unknown 09/13/2019 2:12 PM CDT 09/13/2019 3:03 PM CDT Erma Neri MD LAB - CHEMISTRY [place] [address] [phone] * T4 FREE (09/13/2019 2:12 PM CDT) T4 Free 0.7 0.7 - 1.5 ng/dL 09/13/2019 3:41 PM CDT [facility] Blood BLOOD SPECIMEN / Unknown Lab Venipuncture / Unknown 09/13/2019 2:12 PM CDT 09/13/2019 3:03 PM CDT Erma Neri MD LAB - CHEMISTRY [facility] [place] Performing Organization Address City/[facility]/ZIP Co de Phone Number [address] [phone] * MT DRAIN/INJECT LARGE JOINT/BURSA (07/27/2019 12:14 PM CDT) Narrative Kevin Britton MD - 07/27/2019 12:14 PM CDT Kevin Britton MD ? 07/27/2019 12:14 PM Orthopaedic Surgery Procedure Note Diagnosis: Left knee pain Procedure: Injection of corticosteroid into the left knee Indications: Milagros Torres is a 54 year old female who has left knee pain and arthritis. Procedure Details: The patient was informed of her condition, and the potential benefits of injection of steroid. The patient was counseled as to the risks of the procedure and allergies were reviewed. The patient was understanding and agreeable. ?? The patient was placed into the appropriate position. The area was prepped with betadine and alcohol. Utilizing the peripatellar portal, the skin, subcutaneous, and pericapsular tissues were injectedwith 3 cc 1% lidocaine without epinephrine using a 21 Ga needle. The patient's left knee joint was then entered. Confirmation of location inside the joint was evidenced by aspiration of straw colored synovial fluid. 2 cc of Kenalog/3cc lidocaine was injected into the joint. The needle was removed and the needle site cleaned with alcohol and dressed with a sterile bandage. The procedure was performed under sterile conditions. ?? The patient tolerated the procedure well. Remainder of plan per note. Kevin Britton MD 07/27/2019 12:14 PM Kevin Britton MD PROCEDURE/MINOR ALCON GICAL ORDERABLES * (ABNORMAL) HEPATIC FUNCTION PANEL (03/15/2019 1:31 PM DOOR REPAIRER BUS) Only the most recent of2 resultswithin the time period is included. Protein Total 7.7 6.0 - 8.3 g/dL 019 1:[address] [facility] Albumin 3.9 3.4 - 5.0 g/dL 03/15/2019 1:[address] [facility] Bilirubin Total 0.3 0.2 - 1.2 mg/dL 03/05 1:[address] [facility] Bilirubin Conjugated 0.1 0.0 - 0.5 mg/dL 03/15/2019 1:59 PM [facility] Bilirubin Unconjugated 0.2 Unconjugated Bilirubin is a calculated value: Reference ranges have not been established. mg/dL 03/15/2019 1:[address] [facility] Alkaline Phosphatase 88 40 - 150 Units/L 03/15/2019 1:[address] [facility] ALT 50 0 - 55 Units/L 03/15/2019 1:[address] [facility] AST 46(H) 5 - 34 Units/L 03/15/2019 1:59 PM [facility] Albumin/Globulin Ratio 1.0(L) 1.1 - 2.3 03/15/2019 1:59 PM [facility] Blood BLOOD SPECIMEN / Unknown Lab Venipuncture / Unknown 03/15/2019 1:31 PM DOOR REPAIRER BUS 03/15/2019 1:38 PM DOOR REPAIRER BUS Erma Neri MD LAB - CHEMISTRY [place] [address] [phone] * MT DRAIN/INJECT LARGE JOINT/BURSA (03/10/2019 8:57 AM DOOR REPAIRER BUS) Narrative Stephanie Reynolds PA-C - 03/10/2019 8:57 AM DOOR REPAIRER BUS Stephanie Reynolds PA-C ? 03/10/2019 ??9:05 AM Orthopaedic Surgery Procedure Note Diagnosis: Left knee pain Procedure: Injection of Corticosteroid into the Left knee. Indications: Milagros Torres is a 53 year old female who has Left knee pain and arthritis. Procedure Details: Ms. Torres was informed of her condition, and the potential benefits of injection of steroid. The patient was counseled as to the risks of the procedure. She was understanding and agreeable. The patient was placed into the supine position. The area was prepped with beta-dine. Utilizing the supralateral patellar portal, the skin, subcutaneous, and pericapsular tissues were injected with 3 cc 1% lidocaine without epinephrine using a 21 Ga needle. The patient's Left knee was then entered. Confirmation of location inside the joint was evidenced by aspiration of straw colored synovial fluid. 2 cc of Kenalog and 3 cc 1% lidocaine without epinephrine was injected into the joint. The needle was removed and the needle site dressed with a semi-sterile bandage. The patient tolerated the procedure well. Remainder of plan per note. Stephanie Reynolds PA-C 03/10/2019 8:57 AM Stephanie Reynolds PA-C PROCEDURE/MINOR SURGICAL ORDERABLES * MT DRAIN/INJECT LARGE JOINT/BURSA (12/07/2018 5:44 PM CDT) Narrative Stephanie Reynolds PA-C - 12/07/2018 5:44 PM CDT Stephanie Reynolds PA-C ? 12/07/2018 ??5:44 PM Orthopaedic Surgery Procedure Note Diagnosis: Left knee pain Procedure: Injection of Corticosteroid into the Left knee. Indications: Milagros Torres is a 53 year old female who has Left knee pain and arthritis. Procedure Details: Ms. Torres was informed of her condition, and the potential benefits of injection of steroid. The patient was counseled as to the risks of the procedure. She was understanding and agreeable. The patient was placed into the supine position. The area was prepped with beta-dine. Utilizing the supralateral patellar portal, the skin, subcutaneous, and pericapsular tissues were injected with 3 cc 1% lidocaine without epinephrine using a 21 Ga needle. The patient's Left knee was then entered. Confirmation of location inside the joint was evidenced by aspiration of straw colored synovial fluid. 2 cc of Kenalog and 3 cc 1% lidocaine without epinephrine was injected into the joint. The needle was removed and the needle site dressed with a semi-sterile bandage. The patient tolerated the procedure well. Remainder of plan per note. Stephanie Reynolds PA-C 12/07/2018 5:44 PM Stephanie Reynolds PA-C PROCEDURE/MINOR SURGICAL ORDERABLES * BREAST RIGHT LTD (10/08/2018 11:16 AM CDT) Anatomical Region Laterality Modality Breast Right Mammography 10/08/2018 10:3 7 AM CDT Impressions 10/08/2018 11:12 AM CDT IMPRESSION: No evidence of malignancy in either breast. No mammographic or sonographic abnormality in the area of clinical concern. Clinical management is recommended and should be based on clinical suspicion. ASSESSMENT: BI-RADS Category 2: Benign finding(s). RECOMMENDATION: Clinical follow-up and management for symptoms. Annual bilateral diagnostic mammography. Findings discussed with the patient by Dr. Garcia. ??Result letter given to the patient. This report was electronically signed by DARRYL COOPER M.D. ??on 10/08/2018 11:12 AM . Narrative 10/08/2018 11:12 AM CDT BILATERAL DIAGNOSTIC MAMMOGRAM LIMITED RIGHT BREAST ULTRASOUND TECHNIQUE: Images were performed using 3D tomosynthesis images with reconstructed/synthetic 2D images. ??CAD analysis was performed. DATE: 10/08/2018. HISTORY: 53-year-old referred for annual mammography as well as evaluation of focal right breast pain. She has history of left breast cancer status post breast conservation therapy in 2016. COMPARISON: Mammograms from [facility] including 02/06/2018 (right CC view only), 08/01/2017 (right CC and right MLO views only), 07/05/2016, 07/12/2015, 07/06/2015. BREAST COMPOSITION: There are scattered areas of fibroglandular density. FINDINGS: Posttreatment changes in the left breast. No suspicious mass, architectural distortion, or calcifications in either breast. Ultrasound of the area of symptoms performed by the continuous process tanner rotary drum. She points to pain in the upper outer right breast. There is no suspicious solid or cystic mass. Jan Anup DO US ORDERABLES Care Teams Catering Service Manager Relationship Specialty Start Date End Date Willis Veras MD [address] [place] [address] PCP - General 05/03/21 Cole Ku MD [address] OF [facility] [place] [address] General Surgery 11/10/20 Elizabeth Garcia MD [address] [address] Hematology and Oncology 10/21/23
--- OUTSIDE RECORDS SUMMARY | 2024-04-25 13:52 | XMS_ITS | Encounter Summary ---
Author Organization [facility] Address [address] [facility] [place] [address] Care Team Providers Care Pelts Skinner Name Role Phone Cole Ku MD Unavailable Willis Veras MD Primary Care Provider Elizabeth Garcia MD Unavailable [phone] Reason for Visit * Auth/Cert (Routine) Specialty Diagnoses / Procedures Referred By Contac t Referred To Contact Diagnoses History of colon polyps Procedures [place] CANC SCRN,COLONOSCPY HI RISK COLONOSCOPY SCREEN w/ curt COLONOSCOPY SCREEN Referral ID Status Reason Start Date Expiration Date Visits Re quested Visits Authorized [id number] 1 1 Encounter Details Date Type Department Care Team (Late st Contact Info) Description 02/03/2024 8:04 AM CDT Anesthesia Event [facility] [address] [place] [address] Prosper uKo MD [address] [facility] [place] [place] [address] Anesthesia Record Procedure Summary Procedure Name Responsible Anesthesiologist Anesthesia Start Time Anesthesia Stop Time COLONOSCOPY SCREEN w/ Prosper Metz MD 02/03/24 0804 02/03/24 0845 Events Date Time Event Comment 02/03/2024 0736 0804 An Start 0804 Pt In Room 0804 An Start Data 0804 PT Reassessment 0804 Timeout Anesthesia part icipated in timeout at the time documented in the record by nursing. 0807 Induction 0808 Anes Ready 0809 Proc Start 0838 Proc Stop 0838 An Emergence 0842 an stop data 0842 Pt out of Room 0845 An Stop Meds Name Total lidocaine PF 2% 100 mg propofol 200mg/20mL injection 130 mg propofol 500 mg/50 mL injection 390 mg 0.9% NaCl infusion 200 mL * Agents Name Insp. N2O Exp. N2O O2 Flow - Auxiliary O2 * Blood No blood administrations on file. Lines, Drains, and Airways Type Details Placement Removal Peripheral IV Date: 02/03/24; Time : 738; Orientation: Anterior, Right; Location: Forearm; Gauge: 22 G 02/03/24 07 by Miranda Laura RN 02/03/24 09 by Yanci Longoria RN documented in this encounter Social History Tobacco [...] No 12/05/2020 documented as of this encounter Progress Notes * Prosper Kuo MD - 02/03/2024 9:45 AM CDT ANESTHESIA POSTOP EVALUATION NOTE Procedure: COLONOSCOPY SCREEN w/ cheesman Milagros Torres is a 58 year old female Patient Vitals for the past 6 hrs: BP Temp Pulse Resp SpO2 Pain Rating Score #1 Pain Scale/Observation Pulse - (SPO2/Cuff) 02/03/24 0725 146/92 98.1 ??F (36.7 ??C) 71 15 98 % 0 N -- 02/03/24 0730 (!) 136/102 -- 72 16 93 % -- -- 74 bpm 02/03/24 0742 129/87 -- 67 14 97 % -- -- 68 bpm 02/03/24 0845 106/56 97.6 ??F (36.4 ??C) 77 20 96 % 0 N 76 bpm 02/03/24 0900 103/73 -- 64 16 97 % -- -- 64 bpm 02/03/24 0915 117/71 -- 59 14 97 % 0 N 59 bpm Anesthesia Type: general Pre-op Diagnosis Codes: * History of colon polyps [Z86.0100] Mental Status: awake, alert, oriented, arousable, sufficiently recovered from acute administration of anesthesia to participate in the evaluation and neurologic status has returned to preoperative level Neuro Status: No numbness, tingling or visual disturbances Respiratory Function: natural Cardiac Function: stable Postop Pain: acceptable to the patient and adequate Postop Hydration: adequate Postop Nausea: none Assessment: no apparent anesthetic complications, patient tolerated procedure well and no evidence of recall Patient Disposition: Release from Anesthesia Care NOTABLE EVENTS: No notable events documented. * Prosper Kuo MD - 02/03/2024 6:50 AM CDT ANESTHESIA PREOPERATIVE EVALUATION NOTE Procedure: COLONOSCOPY SCREEN w/ curt Vitals: No data found. LMP: No LMP recorded. Patient has had a hysterectomy. OB Status: Hysterectomy ANESTHESIA PRE-EVALUATION NOTE History of Present Illness: 58yo F with pmh significant for anxiety/depression, HTN, breast cancer s/p lumpectomy, nonalcoholicfatty liver disease, endometrial hyperplasia s/p total hysterectomy/oophorectomy, GERD (well-controlled), obesity who presents today for a screening colonoscopy. No prior problems with anesthesia. Norecent chest pain or SOB. The patient is a current non-smoker. Physical Exam: Orientation X3 Airway/Mallampati Score: II Mouth Opening Distance: 3 fingerwidths Neck ROM: limited TM Distance: < 3 FB Teeth: normal Heart: normal - S1 S2 Lungs: clear to ausculation bilaterally Review of Systems: History of anesthetic complications: No Sleep Apnea Risk: Yes, Loud snoring GERD: Yes, well controlled Poor Exercise Tolerance: No Recent Chest Pain: No Shortness of Breath: No AICD/Pacemaker: No Renal Disease: No ANESTHESIA PLAN ASA Score: 2 NPO Status: No solids since midnight and No liquids within 2 hours Anesthesia Plan: general and TIVA Planned Induction: intravenous Planned Postop Destination: PACU Anesthetic plan was discussed with: patient Anesthetic Plan discussion was: Consented The patient's procedural Anesthetic Plan was discussed with the anesthesiologist activity assistant and SENIOR PHP WEB DEVELOPER. Overall additional findings/comments: I have reviewed the patient's chart and have interviewed the patient. I have examined the patient and have reviewed the plan with the patient. I agree with the documentation and have discussed the anesthesia plan and the patient agrees. Discussed risks of MAC vs GA vs GETA including but not limited to dental injuries, problems with the heart, breathing, bleeding, adverse medication reactions that can lead to heart attack, stroke, . Patient expressed understanding and wishes to proceed. Ash Kuo MD Attending Anesthesiologist 02/03/2024 6:55 AM. BMI, Height, Weight Tobacco History Estimated body mass index is 34.43 kg/m?? as calculated from the following: Height as of 01/19/24: 1.702 m (5' 7 ). Weight as of 01/19/24: 99.7 kg (219 lb 12.8 oz). Social History Tobacco Use Smoking Status Never Smokeless Tobacco Never Alcohol History Drug History Social History Substance and Sexual Activity Alcohol Use Yes Comment: ocassional weekends Social History Substance and Sexual Activity Drug Use Never Outpatient Medications: Inpatient Medications: No outpatient medications have been marked as taking for the 02/03/24 encounter (Hospital Encounter). No current facility-administered medications for this encounter. Allergies: No Known Allergies Relevant Problems Cardiovascular (+) Benign essential HTN Other (+) NAFLD (nonalcoholic fatty liver disease) Problem List: Patient Active Problem List Diagnosis Date Noted Complex endometrial hyperplasia with atypia 03/12/2023 Priority: Not Prioritized S/P total hysterectomy and BSO (bilateral salpingo-oophorectomy) 03/12/2023 Priority: Not Prioritized S/P total knee arthroplasty, left 02/01/2022 Priority: Not Prioritized NAFLD (nonalcoholic fatty liver disease) 05/15/2020 Priority: Not Prioritized 11/10/20 Fibroscan CAP 332, LSM 9.4 kPa 01/17/23 Fibroscan CAP 275, LSM 6.4 kPa Depression 11/17/2015 Priority: Not Prioritized Anxiety 09/19/2015 Priority: Not Prioritized Malignant neoplasm of upper-inner quadrant of left breast in female, estrogen receptor positive (HCC) 07/27/2015 Priority: Not Prioritized Benign essential HTN 07/21/2015 Priority: Not Prioritized Medical History: Past Medical History: Diagnosis Date Arthropathy Breast cancer (HCC) CKD (chronic kidney disease) blood work every 6 months to monitor, no dialysis Delayed emergence from anesthesia Depression with anxiety Disorder of liver NAFLD, bloodwork checked every 6 months, ok to take tylenol Gallstones Hypertension required meds when getting radiation for breast CA. No longer requiring meds Malignancy (HCC) breast left Valvular heart disease heart murmur Surgical History: Past Surgical History: Procedure Laterality Date Bilateral Tubal Ligation (BTL) BIOPSY BREAST Breast Lumpectomy Left 09/04/2015 With sentinel node biopsy performed by Dr. Brittni Knight Section 05/1990 Cholecystectomy, Laparoscopic N/A 12/05/2020 N/A; LAPAROSCOPIC CHOLECYSTECTOMY COLONOSCOPY N/A 09/18/2020 N/A; COLONOSCOPY SCREEN---extended prep with Cheesman Dilation and Curettage 2016 and 2018 for PMB in the s/o tamoxifen use HYSTERECTOMY, TOTAL LAPAROSCOPIC N/A 02/27/2023 N/A; ROBOTIC ASSISTED TOTAL LAPAROSCOPIC HYSTERECTOMY, SALPINGO--OOPHORECTOMY--BILATERAL HYSTEROSCOPY N/A 10/16/2022 N/A; HYSTEROSCOPY WITH DILATION & CURETTAGE, INTRAUTERINE DEVICE PLACEMENT HYSTEROSCOPY N/A 01/07/2023 N/A; HYSTEROSCOPY WITH DILATION & CURETTAGE, REMOVAL & REPLACEMENT OF INTRAUTERINE DEVICE KNEE ARTHROPLASTY Left 02/01/2022 Left; TOTAL KNEE ARTHROPLASTY SUPERINTENDENT HOUSE Status: No LMP recorded. Patient has had a hysterectomy. Hysterectomy OB History Para Term AB Living 3 0 0 0 0 0 SAB IAB Ectopic Multiple Live Births 0 0 0 0 0 # Outcome Date GA Lbr Fabiano/2nd Weight Sex Delivery Anes PTL Lv 3 2 1 Covid Vaccine: Lab Results: No results found for requested labs within last 120 days. No results found for requested labs within last 120 days. ETT Date: 02/01/22; Time: 07; Placed By: VIRAJ Hickey; Vent: easy mask; Induction: Standard IV; Blade Type: [place]; Blade Size: 2; Laryngoscopy View: Grade 1 (full cords); Tube: Endotracheal Tube; Placement: Oral; Tube Type: Cuffed-inflated; Tube Size(mm): 7 MM; Depth of Insertion: 21 CM; Measured From: lips; Attempts: 1; Cuff Infated: Air; Verified By: Direct visualization, Bilateral breath sounds, Chest Auscultation, CO2 Monitor documented in this encounter Miscellaneous Notes * Anesthesia Transfer of Care - Darlene Carias APRN-CRNA - 02/03/2024 8:48 AM CDT ANESTHESIA TRANSFER OF CARE NOTE Today's Date: 02/03/2024 Date of : 1965 Patient: Milagros Torres Procedure(s) with comments: COLONOSCOPY SCREEN w/ curt Cisse ileocecal valve irregular mucosa biopsies Surgeon(s): Primary: Joseph Pathak MD Preop Diagnosis: Pre-op Diagnois: * History of colon polyps [Z86.0100] Pre-op Meds (From admission, onward) Start Stop Status Route Frequency Ordered 02/03/24 0715 0.9% NaCl infusion -- Dispensed IV CONTINUOUS 02/03/24 0702 02/03/24 0702 0.9% NaCl injection 3 mL -- Dispensed IK PRE-PROCEDURE MULTIPLE 02/03/24 0702 Post-op Diagnosis: * History of colon polyps [Z86.0100] . No Known Allergies Vitals: Patient Vitals for the past 3 hrs: BP Temp Pulse Resp SpO2 Pain Rating Score #1 02/03/24 0742 129/87 -- 67 14 97 % -- 02/03/24 0730 (!) 136/102 -- 72 16 93 % -- 02/03/24 0725 146/92 98.1 ??F (36.7 ??C) 71 15 98 % 0 Lines, Drains, and Airways Type Details Placement Removal Peripheral IV Date: 02/03/24; Time: 738; Orientation: Anterior, Right; Location: Forearm; Gauge: 22 G 02/03/24 07 by Miranda Laura RN Intraprocedure I/O Totals Intake 0.9% NaCl infusion 200.00 mL Total Intake 200 mL Patient Transfer Location: Endo Recovery Transport Airway: spontaneous respirations Complications: None Handoff Given? Yes Checklist or Protocol - The huertas handoff elements that must be included in the transfer of care checklist include: 1. Identification of patient. 2. Identification of responsible practitioner (PACU nurse or advanced practitioner). 3. Discussion of pertinent medical history. 4. Discussion of the surgical/procedure course (procedure, reason for surgery, procedure performed). 5. Intraoperative anesthetic management and issue/concerns. 6. Expectations/Plans for the early post-procedure period. 7. Opportunity for questions and acknowledgement of understanding of report from the receiving PACUteam. VIRAJ Woodson documented in this encounter Plan of Treatment Upcoming Encounters Date Type Department Care Team (Late st Contact Info) Description 06/02/2024 10:30 AM CONSUMER RELATIONS SPECIALIST Office Visit [facility] - Orthopedic Surgery [address] [place] [address] Kevin Britton MD [address] [facility] [address] [place] [address] 08/10/2024 1:00 PM CDT Office Visit [facility] - SUPERINTENDENT HOUSE [address] [facility] [address] [place] [phone] Daja Mir MD [address] [facility] [place] [address] 10/26/2024 1:00 PM CDT Office Visit [facility] - Hematology/Oncology [address] [place] [address] Elizabeth Garcia MD [address] [facility] [address] [place] [address] 01/17/2025 12:30 PM CDT Procedure visit [facility] [place] [address] [place] [address], [place] [phone] 01/17/2025 1:00 PM CDT Office Visit [facility] - GI [address] [place] [address], [place] [phone] Marlena Mccoy, TEST EVALUATOR-CATHETERIZATION LABORATORY TECHNICIAN [address] [place] [address] [address] [place] [address] documented as of this encounter Goals Goal Patient Goal Type Associated Problems Recent Progress Patient-Stated? Author Mobility General On track( 021 9:08 AM CONSUMER RELATIONS SPECIALIST) No Tika Pope, RN Note: Expected end [...] Diagnoses Not on filedocumented in this encounter Administered Medications Inactive Administered Medications - up to 3 most recent administrations Medication Order MAR Action Action Date Dose Rate Site lidocaine HCl (PF) (Xylocaine MPF) 2 % injection Intravenous, PRN, Starting on Fri02/03/24 at 0807, Until Fri02/03/24 at 0847, Anesthesia Intra-op $ Given 02/03/2024 8:07 AM CDT 100 mg propofol (Diprivan) infusion Intravenous, CONTINUOUS PRN, Starting on Fri02/03/24 at 0807, Until Fri02/03/24 at 0847, Anesthesia Intra-op Rate Change 02/03/2024 8:27 AM CDT 100 mcg/kg/min 58.5 mL/hr $ New Bag/Syringe 02/03/2024 8:07 AM CDT 150 mcg/kg/min 87 .75 mL/hr propofol (Diprivan) injection Intravenous, PRN, Starting on Fri02/03/24 at 0807, Until Fri02/03/24 at 0847, Anesthesia Intra-op $ Given 02/03/2024 8:11 AM CDT 30 mg $ Given 02/03/2024 8:07 AM CDT 100 mg documented in this encounter Care Teams Pelts Skinner Relationship Specialty Start Date End Date Willis Veras MD [address] [place] [address] PCP - General 05/03/21 Cole Ku MD [address] [facility] 2L [place] [phone] General Surgery 11/10/20 Elizabeth Garcia MD [address] [facility] 3 [place] [address] Hematology and Oncology 10/21/23 documented as of this encounter
--- OUTSIDE RECORDS SUMMARY | 2024-04-25 13:53 | XMS_ITS | Encounter Summary ---
Author Organization [facility] Address [address] [facility] [place] [address] Care Team Providers Care Machine Ii Trimmer Name Role Phone Cole Ku MD Unavailable Willis Veras MD Primary Care Provider Reason for Referral * Radiology Services (Routine) - Closed Specialty Diagnoses / Procedures Referred By Contac t Referred To Contact Hematology-Oncology Diagnoses Abnormal mammogram Procedures MAMMO BILAT DIAGNOSTIC W Elizabeth Hernandez MD [address] [employer] [address] [address] Referral ID Status Reason Start Date Expiration Date Visits Re quested Visits Authorized [id number] Closed 10/09/2023 10/08/2024 1 1 Reason for Visit * Radiology Services (Routine) - Closed Specialty Diagnoses / Procedures Referred By Americo peters Referred To Contact Hematology-Oncology Diagnoses Abnormal mammogram Procedures MAMMO BILAT DIAGNOSTIC W Elizabeth Hernandez MD [address] [address] Referral ID Status Reason Start Date Expiration Date Visits Re quested Visits Authorized [id number] Closed 10/09/2023 10/08/2024 1 1 Encounter Details Date Type Department Care Team (Late st Contact Info) Description 10/09/2023 1:30 PM CDT - 10/09/2023 1:44 PM CDT Hospital Encounter [facility] [address] [place] [address] Willis Veras MD [address] [facility] [address] [place] [address] Discharge Disposition: Home or Self Care Social [...] No 12/05/2020 documented as of this encounter Medications at Time of Discharge Medication Sig Dispensed Refills Start Date End Date calcium 600 MG tabletIndications:Vitamin D deficiency, unspecified Take 1 tablet by mouth daily with food 90 tablet 2 03/23/2019 famotidine (Pepcid) 20 MG tablet Take 1 (one) tablet by mouth once daily 08/06/2022 losartan (Cozaar) 25 MG tablet Take 1 (one) tablet by mouth once daily 08/04/2023 losartan - hydroCHLOROthiazide (Hyzaar) 50-12.5 MG tablet Take 1 (one) tablet by mouth once daily [place]-3 Fatty Acids (fish oil) 1000 MG capsule Take by mouth once daily pravastatin (Pravachol) 10 MG half tablet Take 1 (one) Half Tablet by mouth once daily 07/02/2023 Vitamin D3, cholecalciferol, 50 MCG (1999) tabletIndications:Vitamin D deficiency, unspecified Take 1 tablet by mouth once daily 90 tablet 2 03/23/2019 celecoxib (CeleBREX) 50 MG capsuleIndications:S/P TKR (total knee replacement), left,Primary osteoarthritis of left knee Take 2 (two) capsules by mouth once daily 60 capsule 1 09/09/2023 10/31/2023 documented as of this encounter Plan of Treatment Upcoming Encounters Date Type Department Care Team (Late st Contact Info) Description 06/02/2024 10:30 AM CONGREGATIONAL CARE PASTOR Office Visit [facility] - Orthopedic Surgery [address] [place] [phone] Kevin Britton MD 10[address] [facility] [address] [place] [address] 08/10/2024 1:00 PM CDT Office Visit [facility] - INVESTOR RELATIONS SPECIALIST [address] [facility] [address] [place] [address] Daja Mir MD [address] [facility] [place] [address] 10/26/2024 1:00 PM CDT Office Visit [facility] - Hematology/Oncology [address] [place] [phone] Elizabeth Garcia MD [address] [facility] 3 [place] [address] 01/17/2025 12:30 PM CDT Procedure visit [facility] - GI [address] [facility], [place] [address] 01/17/2025 1:00 PM CDT Office Visit [facility] - GI [address] [facility], [place] [address] Marlena Mccoy, BOILER RELINER-RETAIL ASSOCIATE [address] [facility] [place] [address] documented as of this encounter Goals Goal Patient Goal Type Associated Problems Recent Progress Patient-Stated? Author Mobility General On track( 021 9:08 AM CONGREGATIONAL CARE PASTOR) No Tika Pope, SABRINA Note: Expected end [...] Procedure Name Priority Date/Time Associated Diagnosis Comments MAMMO BILAT DIAGNOSTIC W [place] Routine 10/09/2023 2:14 PM CDT Abnormal mammogram documented in this encounter Results * MAMMO BILAT DIAGNOSTIC W [place] (10/09/2023 [...] ??LIMITED LEFT BREAST ULTRASOUND (COMBINED REPORT) LOCATION: [facility] EXAM DATE: ??10/09/2023 HISTORY: Follow-up to a [...] thickening noted. Elizabeth Garcia MD MAMMO ORDERABLES documented in this encounter Visit Diagnoses Diagnosis Abnormal mammogram Abnormal mammogram, unspecified documented in this encounter Care Teams Machine Ii Trimmer Relationship Specialty Start Date End Date Willis Veras MD [address] [place] [address] PCP - General 05/03/21 Cole Ku MD [address] [facility] 2L [place] [address] General Surgery 11/10/20 documented as of this encounter
--- OUTSIDE RECORDS SUMMARY | 2024-04-25 13:53 | XMS_ITS | Encounter Summary ---
Author Organization [facility] Address [address] [facility] [place] [address] Care Team Providers Care Bag Inspector Name Role Phone Cole Ku MD Unavailable Willis Veras MD Primary Care Provider Encounter Details Date Type Department Care Team (Late st Contact Info) Description 08/04/2023 Orders Only [facility] - Orthopedics [address] [place] [address], [place] [address] José Russ MD [facility] [address] [place] [address] [address] [place] [address] Left foot pain Social History Tobacco Use Types Packs/Day Years [...] st Contact Info) Description 06/02/2024 10:30 AM STRATEGIC ANALYST Office Visit [facility] - Orthopedic Surgery [address] [place] [phone] Kevin Britton MD 10[address] [facility] [address] [place] [address] 08/10/2024 1:00 PM CDT Office Visit [facility] - NUCLEAR PROCESS ENGINEER [address] [facility] 400 [place] [phone] Daja Mir MD [address] [facility] [place] [address] 10/26/2024 1:00 PM CDT Office Visit [facility] - Hematology/Oncology [address] [place] [phone] Elizabeth Garcia MD [address] [facility] 3 [place] [address] 01/17/2025 12:30 PM CDT Procedure visit [facility] - GI 1225 [facility], [facility] [place] [address] 01/17/2025 1:00 PM CDT Office Visit [facility] - GI [address] [facility], [place] [address] Marlena Mccoy, HOME RESTORATION SERVICE CLEANER-AGRICULTURAL RESEARCH DIRECTOR [address] [facility] [place] [address] documented as of this encounter Goals Goal Patient Goal Type Associated Problems Recent Progress Patient-Stated? Author Mobility General On track( 021 9:08 AM STRATEGIC ANALYST) No Tika Pope, RN Note: Expected end [...] last dose documented as of this encounter Results * XR FOOT LEFT 3VW OR MORE [...] noted calcaneal spur. > Interpreting Provider: Basim Holbrook, MD on 08/07/2023 10:42 AM Procedure Note [...] José Russ MD DIAGNOSTIC IMAGING O RDERABLES documented in this encounter Visit Diagnoses Diagnosis Left foot pain- Primary Pain in limb Left foot pain Pain in limb Left foot pain Pain in limb documented in this encounter Care Teams Bag Inspector Relationship Specialty Start Date End Date Willis Veras MD [address] [place] [address] PCP - General 05/03/21 Cole Ku MD [address] [facility] [place] [address] General Surgery 11/10/20 documented as of this encounter
--- OUTSIDE RECORDS SUMMARY | 2024-04-25 13:53 | XMS_ITS | Encounter Summary ---
Author Organization [facility] Address [address] [address] Care Team Providers Care Replenishment Merchandising Associate Name Role Phone Cole Ku MD Unavailable Willis Veras MD Primary Care Provider Elizabeth Garcia MD Unavailable [phone] Encounter Details Date Type Department Care Team (Latest Contact Info) Description 01/14/2024 1:00 PM CDT - 01/14/2024 11:59 PM T Hospital Encounter [facility] Breast Care [facility] [address] [place], [place] [id number] Discharge Disposition: Home or Self Care Social [...] 1 (one) tablet by mouth once daily [place]-3 Fatty Acids (fish oil) 1000 MG capsule Take by mouth once daily omeprazole (PriLOSEC) 20 MG capsule Take 1 (one) capsule by mouth once daily 12/31/2023 phentermine (Adipex-P) 37.5 MG capsule Take 1 (one) capsule by mouth every 2 days 12/31/2023 pravastatin (Pravachol) 10 MG half tablet Take 1 (one) Half Tablet by mouth once daily 07/02/2023 Vitamin D3, cholecalciferol, 50 MCG (1999 UT) tabletIndications:Vitamin D deficiency, unspecified Take 1 tablet by mouth once daily 90 tablet 2 03/23/2019 documented as of this encounter Progress Notes * Arabella Jon, - 01/14/2024 1:21 PM CDT Images from the original note were not included. Genetics Telehealth Consultation PATIENT NAME: Milagros Torres : 1965 DATE SEEN: 01/14/2024 Referred by: Elizabeth Garcia MD PCP: Willis Veras MD Reason for Referral: Milagros Torres is a pleasant 58 year old woman who was diagnosed with breast cancer at age 48. Her family history is significant for a sister who was diagnosed with breast cancerat age 50 and a brother who was diagnosed with prostate cancer at age 57. Relevant Medical History: She was diagnosed in 2016 with left breast invasive ductal carcinoma (ER+/KY+/HER2-) , s/p segmental mastectomy, adjuvant radiation therapy, and endocrine therapy. She reportedly had negative BRCA1/2testing in 2015. She underwent a hysterectomy and BSO (02/27/23) due to endometrial hyperplasia with atypia. Her last colonoscopy (09/18/20) revealed 3 polyps, tubular adenomas on pathology. She is scheduled for a repeat colonoscopy on 02/03/24. Family History: Sister dxd with breast cancer at age 50 and from breast cancer at age 56, no genetic testing Brother dxd with prostate cancer at age 57, treatment unknown Mother, maternal uncle and a paternal aunt from lung cancer (all smokers) Social History: She is , has a daughter, two sons, 2 grandsons and one granddaughter Tobacco use: never Alcohol use: occasional Recreational drug use: never Assessment/Genetic Counseling She meets the National Comprehensive Cancer Network (NCCN) criteria for germline genetic testing given her history of breast cancer diagnosed at age 50 and family history of sister with breast cancerdiagnosed at age 50. Her history of adenomatous colon polyps and brother's history of prostate cancer are additional indications for genetic testing. We discussed the potential results (positive, negative, variant of uncertain significance) and the benefits, risks, and limitations of multi-gene panel testing. The results of genetic testing could impact her medical management by clarifying her risk for second cancer and/or other cancers. For example, if she were to test positive for a CHEK2, PALB2, or FABY mutation, she would meet NCCN recommendations for increased breast cancer screening with annual breast MRI. If she tests positive for a specific gene mutation, then her relatives could be tested for that same mutation. Limitations of multi-gene testing panels include: current lack of medical management guidelines forsome of the included genes and an increased chance of identifying variants of uncertain significance. Additionally, testing positive for a cancer risk gene mutation may have an emotional impact and lead to increased anxiety and/or depression. We also discussed that the Genetic Information Nondiscrimination Act (BRITNEY) is federal legislation that prohibits health insurance and employment discrimination on the basis of genetic information or a genetic test result. However, BR[place]NEY does not cover life, disability, or watermelon harvesting supervisor care insurance. While the incidence of genetic discrimination involving health insurance appears to be small, the risk of genetic discrimination in life and disability insurance is likely to be more substantial. Therefore, individuals may wish to address any life,disability, or watermelon harvesting supervisor care insurance issues prior to undergoing genetic testing. Plan: -She elected multi-gene panel testing, [facility] Multi-Cancer plus RNA Panel. [facility] will arrange for mobile phlebotomy draw. -Turn around time for results is about three to four weeks. Additional genetic counseling will be provided once results are available. - She was sent information about hereditary cancer testing as well as [facility]'s consent form and billing policy. Patient Verification and Telemedicine Based Consent The patient has given verbal consent to have today's visit conducted by this same means with treatment provided remotely. The patient verbally consents to the billing and collection practices of [employer]. Patient location: home This encounter was performed using: telemedicine, audio only Reason for not using video for visit: patient does not have the technology Time spent with patient/proxy: 25 minutes documented in this encounter Plan of Treatment Upcoming Encounters Date Type Department Care Team (Late st Contact Info) Description 06/02/2024 10:30 AM PLANNED GIVING OFFICER Office Visit [facility] - Orthopedic Surgery [address] [place] [address] Kevin Britton MD 1031 [facility] 280 [place] [address] 08/10/2024 1:00 PM CDT Office Visit [facility] - VICE PROVOST 1031 [facility] 400 [place] [address] Daja Mir MD [address] [facility] [place] [address] 10/26/2024 1:00 PM CDT Office Visit [facility] - Hematology/Oncology [address] [place] [address] Elizabeth Garcia MD [address] [facility] [address] [place] [address] 01/17/2025 12:30 PM CDT Procedure [place] [facility] [place] [address] [place] [address], [place] [address] 01/17/2025 1:00 PM CDT Office Visit [facility] - GI [address] [place] [address], [place] [address] Marlena Mccoy, PHYSICIAN OFFICE REP-LEAD PRINCIPAL TECHNICAL ARCHITECT [address] [place] [address] [facility] [place] [address] documented as of this encounter Goals Goal Patient Goal Type Associated Problems Recent Progress Patient-Stated? Author Mobility General On track( 021 9:08 AM PLANNED GIVING OFFICER) No Tika Pope, RN Note: Expected end [...] on filedocumented in this encounter Care Teams Replenishment Merchandising Associate Relationship Specialty Start Date End Date Willis Veras MD [address] [place] [address] PCP - General 05/03/21 Cole Ku MD [address] OF [facility] [place] [address] General Surgery 11/10/20 Elizabeth Garcia MD [address] [address] Hematology and Oncology 10/21/23 documented as of this encounter
--- OUTSIDE RECORDS SUMMARY | 2024-04-25 13:53 | XMS_ITS | Encounter Summary ---
Author Organization [facility] Health Address [address] [place] [address] Care Team Providers Care Superintendent Track Name Role Phone Cole Ku MD Unavailable Willis Veras MD Primary Care Provider Encounter Details Date Type Department Care Team (Late st Contact Info) Description 08/07/2023 9:18 AM CDT - 08/07/2023 11:59 PM CDT Hospital Encounter [facility] DIAGNOSTIC RAD [facility] [address] [facility] [address] José Russ MD [facility]5 [facility] [address]L - [address]4 [place] [address] Discharge Disposition: Home or Self Care Social [...] 1 (one) tablet by mouth once daily [place]-3 Fatty Acids (fish oil) 1000 MG capsule [...] by mouth once daily 60 capsule 1 07/09/2023 09/09/2023 documented as of this encounter Plan of Treatment Upcoming Encounters Date Type Department Care Team (Late st Contact Info) Description 06/02/2024 10:30 AM SOFTWARE SECURITY ARCHITECT Office Visit [facility] - Orthopedic Surgery [address] [place] [phone] Kevin Britton MD [address] [place] [address] 08/10/2024 1:00 PM CDT Office Visit [facility] - MOTION PICTURE SCENE BUILDER 10[address] [facility] [address] [place] [address] Daja Mir MD [address] [facility] [place] [address] 10/26/2024 1:00 PM CDT Office Visit [facility] - Hematology/Oncology [address] [place] [address] Elizabeth Garcia MD [address] [facility] [address] [place] [address] 01/17/2025 12:30 PM CDT Procedure visit [facility] [place] [address] [place] [address], [place] [address] 01/17/2025 1:00 PM CDT Office Visit [facility] - GI [address] [place] [address], [facility] [place] [phone] Marlena Mccoy, DATA PROCESSING SYSTEMS PROJECT PLANNER-TOLL GATE KEEPER [address] [place] [address] [facility] [place] [address] documented as of this encounter Goals Goal Patient Goal Type Associated Problems Recent Progress Patient-Stated? Author Mobility General On track( 021 9:08 AM SOFTWARE SECURITY ARCHITECT) No Tika Pope, SABRINA Note: Expected end [...] Procedure Name Priority Date/Time Associated Diagnosis Comments XR ANKLE LEFT 3VW OR MORE Routine 08/07/2023 9:35 AM CDT Left foot pain documented in this encounter Results * XR ANKLE LEFT 3VW OR MORE [...] > Interpreting Provider: Basim Holbrook MD on 410:42 AM José Russ MD DIAGNOSTIC IMAGING O RDERABLES documented in this encounter Visit Diagnoses Diagnosis Left foot pain Pain in limb documented in this encounter Care Teams Superintendent Track Relationship Specialty Start Date End Date Willis Veras MD [address] [place] [address] PCP - General 05/03/21 Cole Ku MD [address] OF [facility] [place] [address] General Surgery 11/10/20 documented as of this encounter
--- OUTSIDE RECORDS SUMMARY | 2024-04-25 13:53 | XMS_ITS | Encounter Summary ---
Author Organization [facility] Health Address [address] [facility] [place] [address] Care Team Providers Care Engineer Soils Name Role Phone Cole Ku MD Unavailable Willis Veras MD Primary Care Provider Elizabeth Garcia MD Unavailable [phone] Encounter Details Date Type Department Care Team (Latest Contact Info) Description 10/22/2023 Travel Social History Tobacco Use Types Packs/Day [...] st Contact Info) Description 06/02/2024 10:30 AM WARP HAND Office Visit [facility] - Orthopedic Surgery [address] [place] [address] Kevin Britton MD 1031 [facility] 280 [place] [address] 08/10/2024 1:00 PM CDT Office Visit [facility] - BUSINESS PERFORMANCE ADVISOR 1031 [facility] 400 [place] [address] Daja Mir MD [address] [place] [address] 10/26/2024 1:00 PM CDT Office Visit [facility] - Hematology/Oncology [address] [place] [phone] Elizabeth Garcia MD [address] [facility] 3 [place] [address] 01/17/2025 12:30 PM CDT Procedure visit [facility] - GI [address] [place] [phone] 01/17/2025 1:00 PM CDT Office Visit [facility] - GI [address] [place] [phone] Marlena Mccoy, LAND LEASE INFORMATION CLERK-SPACE ENGINEER [address] [place] [address] 3FL DIV OF GASTROENTEROLOGY [place] [id number] documented as of this encounter Goals Goal Patient Goal Type Associated Problems Recent Progress Patient-Stated? Author Mobility General On track( 021 9:08 AM WARP HAND) No Tika Pope, RN Note: Expected end [...] on filedocumented in this encounter Care Teams Engineer Soils Relationship Specialty Start Date End Date Willis Veras MD [address] [place] [address] PCP - General 05/03/21 Cole Ku MD [address] [facility] [address] [address] [address] [place] [address] General Surgery 11/10/20 Elizabeth Garcia MD 3665 [facility] 3 [place] [address] Hematology and Oncology 10/21/23 documented as of this encounter
--- OUTSIDE RECORDS SUMMARY | 2024-04-25 13:53 | XMS_ITS | Encounter Summary ---
Author Organization [facility] Address [address] [place] [address] Care Team Providers Care Special Weapons Unit Officer Name Role Phone Cole Ku MD Unavailable Willis Veras MD Primary Care Provider Elizabeth Garcai MD Unavailable [phone] Reason for Visit * Reason Onset Date Comments General 10/24/2023 Encounter Details Date Type Department Care Team (Late st Contact Info) Description 10/24/2023 Telephone [facility] - [address] [place] [phone] Kallie Espinal, RN General Social History Tobacco Use Types Packs/Day Years [...] No 12/05/2020 documented as of this encounter Miscellaneous Notes * Telephone Encounter - Marlena Mccoy APRN-CNP - 10/27/2023 1:40 PM CDT I placed the order and sent her a message :) * Telephone Encounter - Kallie Espinal RN - 10/24/2023 1:57 PM CDT Pt called requesting an order for a c-scope from Dr Carpio. Pt has not been seen by the provider since 08/23. Pt has been seen by BRINDA Guzman on 01/17/23. Pt informed this nurse will message Rayo Mccoy and request an order for a c-scope. Pt informed that she will require a referral to be seen by a GI provider since it has been over 3 years. Please let pt know discission by phone or MCM Call back [phone] Message routed to BRINDA Guzman and Leda Obrien RN documented in this encounter Plan of Treatment Upcoming Encounters Date Type Department Care Team (Late st Contact Info) Description 06/02/2024 10:30 AM AMMONIA REFRIGERATION WORKER Office Visit [facility] - Orthopedic Surgery [address] [place] [address] Kevin Britton MD [address] [place] [address] 08/10/2024 1:00 PM CDT Office Visit [facility] - KNIFEMAN 1031 [facility] [address] [place] [address] Daja Mir MD [address] [facility] [place] [address] 10/26/2024 1:00 PM CDT Office Visit [facility] - Hematology/Oncology [address] [place] [address] Elizabeth Garcia MD [address] [facility] [address] 3 [place] [address] 01/17/2025 12:30 PM CDT Procedure visit [facility] - GI 1225 [facility], [place] [address] 01/17/2025 1:00 PM CDT Office Visit [facility] - GI [address] [place] [address], [place] [address] Marlena Mccoy, MANAGER STAFFING-LIVESTOCK INSPECTOR [address] [place] [address] [address] [place] [address] documented as of this encounter Goals Goal Patient Goal Type Associated Problems Recent Progress Patient-Stated? Author Mobility General On track( 021 9:08 AM AMMONIA REFRIGERATION WORKER) No Tika Pope, RN Note: Expected end [...] on filedocumented in this encounter Care Teams Special Weapons Unit Officer Relationship Specialty Start Date End Date Willis Veras MD [address] [place] [address] PCP - General 05/03/21 Cole Ku MD [address] OF [facility] [place] [phone] General Surgery 11/10/20 Elizabeth Garcia MD [address] [address] Hematology and Oncology 10/21/23 documented as of this encounter
--- OUTSIDE RECORDS SUMMARY | 2024-04-25 13:53 | XMS_ITS | Encounter Summary ---
Author Organization [facility] Address [address] [facility] [place] [address] Care Team Providers Care Senior Software Quality Engineer Name Role Phone Cole Ku MD Unavailable Willis Veras MD Primary Care Provider Elizabeth Garcia MD Unavailable [phone] Reason for Visit * Reason Onset Date Comments MEDICATION REFILL 11/04/2023 Encounter Details Date Type Department Care Team (Late st Contact Info) Description 11/04/2023 Refill [facility] - Orthopedic Surgery [facility] [place] [address] Danay Harrell, SENIOR TECHNICAL TRAINER REFILL Social History Tobacco Use Types Packs/Day Years [...] st Contact Info) Description 06/02/2024 10:30 AM DYNAMICIST Office Visit [facility] - Orthopedic Surgery [address] [place] [address] Kevin Britton MD 1031 [facility] 280 [place] [address] 08/10/2024 1:00 PM CDT Office Visit [facility] - CENTRAL OFFICE SUPERVISOR 1031 [facility] 400 [place] [address] Daja Mir MD 3549 [facility] [place] [address] 10/26/2024 1:00 PM CDT Office Visit [facility] - Hematology/Oncology [address] [place] [address] Elizabeth Garcia MD 7[address] [facility] 3 [place] [address] 01/17/2025 12:30 PM CDT Procedure visit [facility] - GI 1225 [facility], [place] [address] 01/17/2025 1:00 PM CDT Office Visit [facility] - GI 1225 [facility], [place] [address] Marlena Mccoy, PARA PROFESSIONAL-MAINTENANCE SUPERVISOR ELECTRICAL 1225 [facility] 3FL DIV [place] [address] documented as of this encounter Goals Goal Patient Goal Type Associated Problems Recent Progress Patient-Stated? Author Mobility General On track( 021 9:08 AM DYNAMICIST) No Tika Pope, RN Note: Expected end [...] documented as of this encounter Visit Diagnoses Diagnosis S/P TKR (total knee replacement), left Primary osteoarthritis of left knee Primary localized osteoarthrosis, lower leg documented in this encounter Care Teams Senior Software Quality Engineer Relationship Specialty Start Date End Date Willis Veras MD [address] [place] [address] PCP - General 05/03/21 Cole Ku MD 1225 [facility] 2L [place] [address] General Surgery 11/10/20 Elizabeth Garcia MD 3665 [facility] 3 [place] [address] Hematology and Oncology 10/21/23 documented as of this encounter
--- OUTSIDE RECORDS SUMMARY | 2024-04-25 13:53 | XMS_ITS | Encounter Summary ---
Author Organization [facility] Address [address] [place] [address] Care Team Providers Care Energy Conservation Specialist Name Role Phone Cole Ku MD Unavailable Willis Veras MD Primary Care Provider Reason for Visit * Reason Comments Pain Foot Encounter Details Date Type Department Care Team (Late st Contact Info) Description 08/07/2023 9:15 AM CDT Office Visit [facility] - Orthopedics [address] [place] [address], [place] [address] José Russ MD [facility] [address] [place] [address] [address] [place] [address] Plantar fasciitis of left foot (Primary Dx) Social History Tobacco Use Types Packs/Day Years [...] as of this encounter Progress Notes * John Peraza MD - 08/07/2023 9:59 AM CDT Chief Complaint Patient presents with ??? Pain Foot HPI: 58 year old female with heel pain. Pain is worse with first steps out of bed in the morning. Pain after prolonged sitting. Patient has tried NSAIDS. Patient has done PT. These have not helped. Past Medical History: Diagnosis Date ??? Arthropathy [...] 09/18/2020 N/A; COLONOSCOPY SCREEN---extended prep with Cheesman ??? Dilation and Curettage 2016 and 2018 [...] ??? Cancer - Prostate Brother Social History Substance and Sexual Activity Alcohol Use Yes Comment: ocassional weekends Tobacco Use: Low Risk (08/07/2023) Patient History ??? Smoking Tobacco Use: Never ??? Smokeless Tobacco Use: Never ??? Passive Exposure: Not on file Social History Substance and Sexual Activity Drug Use Never There were no vitals filed for this visit. There is no height or weight on file to calculate BMI. ROS: Constitutional symptoms : Negative Eyes: Negative Ears, nose, mouth, throat: Negative Cardiovascular: Negative Respiratory: Negative Gastrointestinal: Negative Genitourinary: Negative Musculoskeletal: heel pain Integumentary: Negative Neurological: Negative Psychiatric: Negative Endocrine: Negative Hematologic/Lymphatic: Negative Allergic/Immunologic: Negative Left Lower Extremity Prior incisions are not present There is no edema in the foot, Pulses are 2+ Intact s/s/t/dp/sp Intact PF DF EHL With Weight bearing there is a neutral posture. The hindfoot is neutral. Silverskold test +. Ankle ROM 10DF/40PF Forefoot exam demonstrates no abnormality The talocrural joint is stable. XRAY 3views of the left foot and ankle on 08/07/2023 were personally interpreted by me and demonstrates no fracture or dislocation, no acute findings. There is a spur at base of calcaneus External imaging: None External note: none Assessment/Plan: 58 year old female with left plantar fasciitis ?? Patient has failed PT and NSAIDs. Interested in further intervention ?? Left plantar fascia injection provided today ?? Continue therapy exercises ?? Return to clinic as needed Associated attestation - José Russ MD - 08/12/2023 10:01 PM CDT I personally performed a history and clinical evaluation on this patient. I agree with the residents note. * Rosio Webb RN - 08/07/2023 9:38 AM CDT Pt here for L heel pain. documented in this encounter Procedure Notes * José Russ MD - 08/12/2023 8:47 PM CDTAssociated Order(s): PROC TENDON SHEATH INJECTION Procedure(s): MA INJ TENDON SHEATH/LIGAMENT/APONEUROSIS Pre-Procedure Diagnose(s): Plantar fasciitis of left foot The junction between the glabrous skin and intersection of posterior medial mal was marked on the Lfoot. Cleaned with betadine and alcohol. Frozen with ethyl chloride. Timeout performed. Informed consent signed. 25 gauge needle was used to inject the plantar fascia medially without complication, 1cc of 40mg of kenalog and 1cc or naropin 0.5%. documented in this encounter Plan of Treatment Upcoming Encounters Date Type Department Care Team (Late st Contact Info) Description 06/02/2024 10:30 AM CARTRIDGE GAUGER Office Visit [facility] - Orthopedic Surgery [address] [place] [phone] Kevin Britton MD [address] [facility] 280 [place] [address] 08/10/2024 1:00 PM CDT Office Visit [facility] - SUPERVISOR SAFETY DEPOSIT [address] [facility] 400 [place] [address] Daja Mir MD [address] [facility] [place] [address] 10/26/2024 1:00 PM CDT Office Visit [facility] - Hematology/Oncology [address] [place] [phone] Elizabeth Garcia MD 36[address] [facility] 3 [place] [address] 01/17/2025 12:30 PM CDT Procedure visit [facility] [place] [address] [place] [phone] 01/17/2025 1:00 PM CDT Office Visit [facility] - GI [address] [place] [phone] Marlena Mccoy, MATH INSTRUCTOR-ELECTRICAL JOURNEYMAN [address] [place] [address] [facility] [place] [address] Scheduled Orders Name Type Priority Associated Diagnoses Orde r Schedule PROC ARTHROCENTESIS Procedures Routine Plantar fasciitis of left foot Ordered: 08/07/2023 documented as of this encounter Goals Goal Patient Goal Type Associated Problems Recent Progress Patient-Stated? Author Mobility General On track( 021 9:08 AM CARTRIDGE GAUGER) No Tika Pope, RN Note: Expected end [...] Procedure Name Priority Date/Time Associated Diagnosis Comments MA INJ TENDON SHEATH/LIGAMENT/APO NEUROSIS Routine 08/12/2023 8:47 PM CDT Plantar fasciitis of left foot documented in this encounter Results * MA INJ TENDON SHEATH/LIGAMENT/APONEUROSIS (08/12/2023 8:47 PM CDT) [...] José Russ MD PROCEDURE/MINOR SURG ICAL ORDERABLES documented in this encounter Visit Diagnoses Diagnosis Plantar fasciitis of left foot- Primary Plantar fascial fibromatosis documented in this encounter Administered Medications Inactive Administered Medications - up to 3 most recent administrations Medication Order MAR Action Action Date Dose Rate Site ROPivacaine (Naropin) 5 MG/ML (0.5%) injection 1 mL 1 mL, Infiltration, ONCE, 1 dose, On Kaylin 08/07/23 at 1030 $ Given 08/07/2023 10:39 AM CDT 1 mL Left Foot triamcinolone acetonide (Kenalog-40) injection 40 mg 40 mg, Intra-articular, ONCE, 1 dose, On Kaylin 08/07/23 at 1030, Shake well before using. $ Given 08/07/2023 10:38 AM CDT 40 mg Left Foot documented in this encounter Care Teams Energy Conservation Specialist Relationship Specialty Start Date End Date Willis Veras MD [address] [place] [address] PCP - General 05/03/21 Cole Ku MD [address] OF [facility] [place] [address] General Surgery 11/10/20 documented as of this encounter
--- OUTSIDE RECORDS SUMMARY | 2024-04-25 13:53 | XMS_ITS | Encounter Summary ---
Author Organization [facility] Address [address] [place] [address] Care Team Providers Care Baling Machine Tender Name Role Phone Cole Ku MD Unavailable Willis Veras MD Primary Care Provider Encounter Details Date Type Department Care Team (Late st Contact Info) Description 08/07/2023 9:18 AM CDT - 08/07/2023 11:59 PM CDT Hospital Encounter [facility] [address] [facility] [address] José Russ MD [facility] [facility] [address] [place] [address] Discharge Disposition: Home or Self [...] 1 (one) tablet by mouth once daily [place]-3 Fatty Acids (fish oil) 1000 MG capsule [...] st Contact Info) Description 06/02/2024 10:[address] Office Visit [facility] - Orthopedic Surgery [address] [place] [phone] Kevin Britton MD [address] [place] [address] 08/10/2024 1:00 PM CDT Office Visit [facility] - FISHING WORKER [address] [facility] [address] [place] [phone] Daja Mir MD [address] [facility] [place] [address] 10/26/2024 1:00 PM CDT Office Visit [facility] - Hematology/Oncology [address] [place] [phone] Elizabeth Garcia MD [address] [facility] 3 [place] [address] 01/17/2025 12:30 PM CDT Procedure visit [facility] [place] [address] [place] [address], [place] [phone] 01/17/2025 1:00 PM CDT Office Visit [facility] - GI [address] [place] [address], [facility] [place] [phone] Marlena Mccoy, CATHEAD WORKER-ADULT FAMILY HOME PROGRAM MANAGER [address] [place] [address] [facility] [place] [address] documented as of this encounter Goals Goal Patient Goal Type Associated Problems Recent Progress Patient-Stated? Author Mobility General On track( 021 9:[address] JUDGE) No Tika Pope, SABRINA Note: Expected end [...] Name Priority Date/Time Associated Diagnosis Comments XR FOOT LEFT 3VW OR MORE Routine 08/07/2023 9:36 AM CDT Left foot pain documented in this encounter Results * XR FOOT LEFT [...] AM José Russ MD DIAGNOSTIC IMAGING O [facility] documented in this encounter Visit Diagnoses Diagnosis Left foot pain Pain in limb documented in this encounter Care Teams Baling Machine Tender Relationship Specialty Start Date End Date Willis Veras MD [address] [place] [phone] PCP - General 05/03/21 Cole Ku MD [address] OF [facility] [place] [address] General Surgery 11/10/20 documented as of this encounter
--- OUTSIDE RECORDS SUMMARY | 2024-04-25 13:53 | XMS_ITS | Encounter Summary ---
Author Organization [facility] Address [address] [place] [address] Care Team Providers Care Concrete Mixer Operator Helper Name Role Phone Cole Ku MD Unavailable Willis Veras MD Primary Care Provider Encounter Details Date Type Department Care Team (Latest Contact Info) Description 08/12/2023 Travel Social History Tobacco Use Types Packs/Day [...] st Contact Info) Description 06/02/2024 10:30 AM POWER PROJECT MANAGER Office Visit [facility] - Orthopedic Surgery [address] [place] [phone] Kevin Britton MD 1031 [facility] 280 [place] [address] 08/10/2024 1:00 PM CDT Office Visit [facility] - CIVIL CLERK [address] [facility] 400 [place] [phone] Daja Mir MD [address] [facility] [place] [address] 10/26/2024 1:00 PM CDT Office Visit [facility] - Hematology/Oncology [address] [place] [phone] Elizabeth Garcia MD [address] [facility] 3 [place] [address] 01/17/2025 12:30 PM CDT Procedure visit [facility] - GI [address] [place] [phone] 01/17/2025 1:00 PM CDT Office Visit [facility] - GI [facility]5 [place] [phone] Marlena Mccoy, RIBBON WINDER-STENOTYPE MACHINE OPERATOR [address] [place] [address] [facility] [place] [address] documented as of this encounter Goals Goal Patient Goal Type Associated Problems Recent Progress Patient-Stated? Author Mobility General On track( 021 9:08 AM POWER PROJECT MANAGER) No Tika Pope, SABRINA Note: Expected end [...] on filedocumented in this encounter Care Teams Concrete Mixer Operator Helper Relationship Specialty Start Date End Date Willis Veras MD [address] [place] [address] PCP - General 05/03/21 Cole Ku MD [address] [phone] General Surgery 11/10/20 documented as of this encounter
--- OUTSIDE RECORDS SUMMARY | 2024-04-25 13:53 | XMS_ITS | Encounter Summary ---
Author Organization [facility] Address [address] [facility] [place] [address] Care Team Providers Care Director Of Research Name Role Phone Cole Ku MD Unavailable Willis Veras MD Primary Care Provider Elizabeth Garcia MD Unavailable [phone] Reason for Referral * Radiology Services (Routine) - Closed Specialty Diagnoses / Procedures Referred By Contlicha t Referred To Contact Gastroenterology Diagnoses Metabolic dysfunction-associated steatotic liver disease (MASLD) Procedures PROC FIBROSCAN Marlena Mccoy APRN-CNP [address] [place] [address] [facility] [place] [address] [facility] 3[address] [place] [address] Referral ID Status Reason Start Date Expiration Date Visits Re quested Visits Authorized [id number] Closed 01/19/2024 01/18/2025 1 1 Reason for Visit * Reason Comments Fatty Liver Encounter Details Date Type Department Care Team (Late st Contact Info) Description 01/19/2024 1:00 PM CDT Office Visit [facility] - [address] [address] Marlena Mccoy, MEDICAL RECORDS TECHNICIAN-SEMICONDUCTOR BONDER [address] [place] [address] Metabolic dysfunction-associat ed steatotic liver disease (MASLD) (Primary Dx) Social History Tobacco Use Types [...] Sign Reading Time Taken Comments Blood Pressure 145/92 01/19/2024 1:20 PM CDT Pulse 86 01/19/2024 1:20 PM CDT Temperature - - Respiratory Rate - - Oxygen Saturation 98% 01/19/2024 1:20 PM CDT Inhaled Oxygen Concentration - - Weight 99.7 kg (219 lb 12.8 oz) 01/19/2024 1:20 PM CDT Height 170.2 cm (5' 7 ) 01/19/2024 1:20 PM CDT Body Mass Index 34.43 01/19/2024 1:20 PM CDT documented in this encounter Functional Status [...] as of this encounter Progress Notes * Marlena Mccoy, MEDICAL RECORDS TECHNICIAN-SEMICONDUCTOR BONDER - 01/19/2024 1:11 PM CDT I saw Ms. Torres in [facility] at [facility] today for follow up visit regarding: Past Visit Note. clinic visit #1 05/12/2020 Milagros Torres is a 54 year old female in clinic for initial visit regarding elevated liver enzymes, hepatic steatosis. AST mildly elevated. HX of Breast Ca in 2016 on tamoxifen for at least 10 years. No known prior liver disease. AST has been elevated for at least 1 year. She is obese, weight today is 198lbs, BMI 31. Today she reports intermittent RUQ pain with imaging revealing chololithiasis without acute cholecystitis. She wants cholecystectomy d/t this pain. clinic visit #2 Milagros Torres is a 55 year old female in clinic for follow up regarding NAFLD. Liver enzyme normalization since previous visit. Fibroscan indicates moderate risk of advanced liver disease. She has lost 3 lbs since last visit. Today she weighs 195lbs BMI 30.5. She contributes to smaller portion sizes. She does enjoy pasta but doesn't eat as much. She has limited soda intake, she does drink sweet tea regularly. Exercise includes none aside from physical labor at work including moving alot of boxes. 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 She is scheduled to get cholecystectomy in December. She has occasional epigastric pain, contributes to soda. clinic visit #3 Milagros Torres is a 55 year old female in clinic for follow up regarding NALFD. She has no complaintstoday. She has more frequent acid reflux, no obvious food trigger, takes OTC medication on occasion. She has gained a few pounds from previous visit, she contributes to outfit. Weight was similar as previous when seen by ortho last week. Exercise includes walking, lifting heavy boxes at work. 1 soda max per day otherwise drinks water throughout the day. clinic visit #4 Milagros Torres is s 56 year old female in clinic for follow up regarding NAFLD. Since last visit she has gained a few pounds from previous visit. She is scheduled for knee replacement on the of this month at [facility] and hoping to be back in exercising once she recovers from surgery. Currentlyher knee is not allowing for exercise. She is drinking about 1 soda per day. She eats out a lot, d/t working 9 hours/day with [address] and from work. During the week her boyfriend is gone for work (over the road truck mechanic) and she finds it easier to grab something quick. She usually cooks once he is home on the weekends. Today she denies any other complaints clinic visit #5 Milagros Torres is s 57 year old female in clinic for follow up regarding NAFLD. Has had increased stress d/t health concerns-- has upcoming hysterectomy d/t precancerous cells in uterus. Also had abnormal mammogram that will require further evaluation. She has no symptoms of liver decompensation. She is drinking 1 soda per day, eats out often d/t convenience. Has no additionalconcerns today. No chief complaint on file. Patient Active Problem List: Anxiety Benign essential HTN Depression Malignant neoplasm of upper-inner quadrant of left breast in female, estrogen receptor positive (HCC) NAFLD (nonalcoholic fatty liver disease) S/P total knee arthroplasty, left Complex endometrial hyperplasia with atypia S/P total hysterectomy and BSO (bilateral salpingo-oophorectomy) Interim history: Milagros Torres is a 58 year old female in clinic for follow up regarding MASLD. Weight 01/2023- 214 lbs Weight today 216 lbs She recently started on phentermine, taking every other day d/t dry mouth. Started it January 02, managed by PCP. She has lost 5 lbs since starting . She has no abdominal pain, no blood or melanous stools. She had hysterectomy since last visit, feels hard to lose weight. No additional concerns today. Current Outpatient Medications Medication Sig calcium 600 MG tablet Take 1 tablet by mouth daily with food celecoxib (CeleBREX) 50 MG capsule Take 2 (two) capsules by mouth once daily famotidine (Pepcid) 20 MG tablet Take 1 (one) tablet by mouth once daily losartan - hydroCHLOROthiazide (Hyzaar) 50-12.5 MG tablet Take 1 (one) tablet by mouth once daily Lincoln-3 Fatty Acids (fish oil) 1000 MG capsule Take by mouth once daily Vitamin D3, cholecalciferol, 50 MCG (1999 UT) tablet Take 1 tablet by mouth once daily No current facility-administered medications for this visit. sugar sweetened beverages: 1 soda per day - can or sometimes fountain fast food consumption; has cut back, now 2 times per week exercise; walking- 3 times per week 30-45 minutes each time She describes her current alcohol consumption as no. Family history of liver disease: no Social History Social History Narrative Not on file Review of systems: Chest pain: none. Shortness of breath: none. Nausea and vomiting: none. Constipation or diarrhea: none. Upper or lower GI bleeding: none. On exam today, she appeared obese, alert and anicteric. I reviewed today's vital signs with the patient. There were no vitals filed for this visit.There is no height or weight on file to calculate BMI. Wt Readings from Last 3 Encounters: 10/21/23 98.2 kg (216 lb 9.6 oz) 08/12/23 98.1 kg (216 lb 3.2 oz) 04/09/23 95.3 kg (210 lb) . Lungs were clear to auscultation bilaterally. Heart sounds were regular rate and rhythm. There were no murmurs. Abdomen was obese, soft and non tender. Liver edge palpable: no. Spleen palpable: no. Ascites: none. Hernias: none. Pretibial edema: none. Relevant test results: Recent Labs Component Name 02/19/23 1008 01/07/23 0608 12/30/22 0000 10/21/22 1203 03/20/22 1036 02/02/22 0158 01/22/22 1015 08/06/21 1049 07/03/20 1019 05/12/20 1028 TBILI - - - 0.3 0.3 - - 0.4 - 0.5 TBIL - - 0.3 - - - 0.5 - - - ALKPHOS - - 88 77 87 - 67 71 - 78 ALT - - 34 80* 21 - 36 24 - 43 AST - - 39 102* 36* - 51* 30 - 54* ALB - - 4.3 3.7 3.6 - - 3.7 - 3.8 ALBUMIN - - - - - - 4.1 - - - NA - - - 139 139 - - 144 - 139 SODIUM 142 141 143 - - - 139 - - - POTASSIUM 4.0 3.9 4.4 3.8 3.7 - 3.8 3.9 - 3.9 CO2 24 22 22 27 21* - 21* 24 - 26 CREATININE 1.01 0.88 - 0.96 1.07* - 1.15* 1.02* - 1.0 BUN 12 15 17 16 15 - 20 17 - 17 HGB 12.8 12.4 12.5 12.0 11.2* - 12.1 13.0 - 12.8 WBC 6.9 5.0 4.9 5.8 5.1 - 5.3 6.8 - 7.3 PLTCOUNT 159 144* - 163 173 - 178 182 - 182 PLT - - 164 - - - - - - - INR - - - - - - - - - 1.0 - = values in this interval not displayed. labs 01/08/24 T bili 0.6 AST 44 ALT 51 ALK 92 Albumin 4.3 Hg 13.6 Hct 42.4 PLT 178 labs 12/30/22 Platelet 164 Hg 12.5 hct 38.2 cr 1.02 Na 143 L+ 4.4 Protein 7.5 ALT 34 AST 39 ALP 88 Ferritin 132 Iron 126 Transferrin 317 ÁLVARO none detected Hepatitis B Surface Antibody Quantitative Hepatitis B Virus Surface Antibody Hepatitis B Surface Antigen Hepatitis B Core Antibody IgG non reactive Hepatitis C Antibody non reactive HIV IgG 1474 Fibroscan 01/17/2023 Liver Stiffness: (LSM, kPa) median: 6.4 IQR/Median% (ideally < 30%): 6% CAP (controlled attenuation parameter): 275 Ultrasound 01/18/22 IMPRESSION: 1.Diffuse hepatic steatosis without discrete hepatic lesion or intrahepatic biliary dilatation. 2.Status post cholecystectomy. US 03/24/20 IMPRESSION: 1. Diffuse hepatic steatosis without discrete hepatic lesion or intrahepatic biliary dilation. Patent hepatic vasculature. 2. Cholelithiasis without evidence of acute cholecystitis. 3. Normal renal size. No evidence of nephrolithiasis or hydronephrosis Fibroscan 11/10/20 kPa 9.4 CAP 332 Colonoscopy 09/18/20 Impression: - The examined portion of the terminal ileum was normal. - One 2 mm polyp in the cecum, removed with a jumbo cold forceps. Resected and retrieved. - One 3 mm polyp in the ascending colon, removed with a jumbo cold forceps. Resected and retrieved. - One 6 mm polyp in the descending colon, removed with a cold snare. Resected and retrieved. One clip placed for prophylaxis (MR conditional). - Diverticulosis in the entire examined colon. - Non-bleeding internal hemorrhoids. Final Diagnosis Large intestine, cecal polyp x1, biopsy (A): - Tubular adenoma Large intestine, ascending polyp, biopsy (B): - Tubular adenoma Large intestine, descending polyp, biopsy (C): - Tubular adenoma Assessment: MASLD; low risk of advanced fibrosis based on fibroscan 2022 Obesity Hx of Breast CA adenomatous polyps Plan: Fibroscan with RTC 1 year Specific recommendations were provided regarding diet and exercise including the avoidance of sugarsweetened beverages and dietary trans-fats. weight loss encouraged An appointment was scheduled for her to see me in followup in one year. Copy to: Willis Veras MD [address] [facility] [address] BRINDA Campos [facility] Division of Gastroenterology and Hepatology Collaborating physician: Dr. Harjit Liu January 19, 2024 No orders of the defined types were placed in this encounter. documented in this encounter Plan of Treatment Upcoming Encounters Date Type Department Care Team (Late st Contact Info) Description 06/02/2024 10:30 AM PRODUCTION WELDER Office Visit [facility] - Orthopedic Surgery [facility]1 [place] [phone] Kevin Britton MD [address] [facility] 280 [place] [address] 08/10/2024 1:00 PM CDT [facility] SOFTBALL COACH [address] [place] [address] 400 [place] [phone] Daja Mir MD [address] [place] [address] 10/26/2024 1:00 PM CDT Office Visit [facility] - Hematology/Oncology [address] [place] [address] Elizabeth Garcia MD [address] [facility] 3 [place] [address] 01/17/2025 12:30 PM CDT Procedure visit [facility] - GI [address] [facility], [place] [phone] 01/17/2025 1:00 PM CDT Office Visit [facility] - GI [address] [facility], [place] [address] Marlena Mccoy, MEDICAL RECORDS TECHNICIAN-SEMICONDUCTOR BONDER [address] [place] [address] [facility] [place] [address] Scheduled Orders Name Type Priority Associated Diagnoses Orde r Schedule PROC FIBROSCAN Procedures Routine Metabolic dysfunction-associated steatotic liver disease (MASLD) 1 Occurrences starting 01/19/2024 until 01/18/2025 documented as of this encounter Goals Goal Patient Goal Type Associated Problems Recent Progress Patient-Stated? Author Mobility General On track( 021 9:08 AM PRODUCTION WELDER) No Tika Pope, SABRINA Note: Expected end [...] as of this encounter Visit Diagnoses Diagnosis Metabolic dysfunction-associated steatotic liver disease (MASLD)- Primary documented in this encounter Care Teams Director Of Research Relationship Specialty Start Date End Date Willis Veras MD [address] [place] [address] PCP - General 05/03/21 Cole Ku MD [address] [place] [facility] [address] General Surgery 11/10/20 Elizabeth Garcia MD [address] [address] Hematology and Oncology 10/21/23 documented as of this encounter
--- OUTSIDE RECORDS SUMMARY | 2024-04-25 13:53 | XMS_ITS | Encounter Summary ---
Author Organization [facility] Health Address [address] [facility] [place] [address] Care Team Providers Care Spun Paste Machine Operator Name Role Phone Cole Ku MD Unavailable Willis Veras MD Primary Care Provider Elizabeth Garcia MD Unavailable [phone] Encounter Details Date Type Department Care Team (Latest Contact Info) Description 01/19/2024 Travel Social History Tobacco Use Types Packs/Day [...] st Contact Info) Description 06/02/2024 10:30 AM TIER IN Office Visit [facility] - Orthopedic Surgery [address] [place] [phone] Kevin Britton MD [address] [facility] 280 [place] [address] 08/10/2024 1:00 PM CDT Office Visit [facility] - REHAB CONSULTANT [address] [facility] 400 [place] [address] Daja Mir MD [address] [place] [address] 10/26/2024 1:00 PM CDT Office Visit [facility] - Hematology/Oncology [address] [place] [phone] Elizabeth Garcia MD [address] [facility] 3 [place] [address] 01/17/2025 12:30 PM CDT Procedure visit [facility] - GI [address] [place] [phone] 01/17/2025 1:00 PM CDT Office Visit [facility] - GI [address] [place] [phone] Marlena Mccoy, HIGH PRESSURE OPERATOR-ELECTRON GUN INSPECTOR [address] [place] [address] [address] DIV OF GASTROENTEROLOGY [place] [id number] documented as of this encounter Goals Goal Patient Goal Type Associated Problems Recent Progress Patient-Stated? Author Mobility General On track( 021 9:08 AM TIER IN) No Tika Pope, RN Note: Expected end [...] on filedocumented in this encounter Care Teams Spun Paste Machine Operator Relationship Specialty Start Date End Date Willis Veras MD [address] [place] [address] PCP - General 05/03/21 Cole Ku MD [address] [facility] 2L [place] [address] General Surgery 11/10/20 Elizabeth Garcia MD 36[address] [facility] 3 [place] [address] Hematology and Oncology 10/21/23 documented as of this encounter
--- OUTSIDE RECORDS SUMMARY | 2024-04-25 13:53 | XMS_ITS | Encounter Summary ---
Author Organization [facility] Address [address] [facility] [place] [address] Care Team Providers Care Drum Drier Name Role Phone Cole Ku MD Unavailable Willis Veras MD Primary Care Provider Encounter Details Date Type Department Care Team (Latest Contact Info) Description 07/21/2023 Travel Social History Tobacco Use Types Packs/Day [...] st Contact Info) Description 06/02/2024 10:30 AM CLINICAL APPLICATION CONSULTANT Office Visit [facility] - Orthopedic Surgery [address] [place] [phone] Kevin Britton MD 1031 [facility] 280 [place] [address] 08/10/2024 1:00 PM CDT Office Visit [facility] - MACHINE HEEL SEAT LASTER 10[address] [facility] 400 [place] [phone] Daja Mir MD [address] [facility] [place] [address] 10/26/2024 1:00 PM CDT Office Visit [facility] - Hematology/Oncology [address] [place] [phone] Elizabeth Garcia MD [address] [facility] 3 [place] [address] 01/17/2025 12:30 PM CDT Procedure visit [facility] - GI 12[address] [place] [phone] 01/17/2025 1:00 PM CDT Office Visit [facility] - GI [facility]5 [place] [phone] Marlena Mccoy, VENDING MACHINE FILLER-NIGHT TIME NANNY [address] [place] [address] [address] [place] [address] documented as of this encounter Goals Goal Patient Goal Type Associated Problems Recent Progress Patient-Stated? Author Mobility General On track( 021 9:08 AM CLINICAL APPLICATION CONSULTANT) No Tika Pope, SABRNIA Note: Expected end date: 05/05/2019 The goal [...] on filedocumented in this encounter Care Teams Drum Drier Relationship Specialty Start Date End Date Willis Veras MD [address] [place] [address] PCP - General 05/03/21 Cole Ku MD [address] [phone] General Surgery 11/10/20 documented as of this encounter
--- OUTSIDE RECORDS SUMMARY | 2024-04-25 13:53 | XMS_ITS | Encounter Summary ---
Author Organization [facility] Health Address [address] [facility] [place] [address] Care Team Providers Care Subwarehouse Supervisor Name Role Phone Cole Ku MD Unavailable Willis Veras MD Primary Care Provider Reason for Visit * Reason Onset Date Comments MEDICATION REFILL 09/09/2023 Encounter Details Date Type Department Care Team (Late st Contact Info) Description 09/09/2023 Refill [facility] - Orthopedic Surgery [facility]1 [place] [address] Danay Harrell, TERMITE EXTERMINATOR REFILL Social History Tobacco Use Types Packs/Day [...] st Contact Info) Description 06/02/2024 10:30 AM HAM SAWYER Office Visit [facility] - Orthopedic Surgery [address] [place] [phone] Kevin Britton MD 10[address] [facility] 280 [place] [address] 08/10/2024 1:00 PM CDT Office Visit [facility] - PLATE MOLDER 1031 [facility] 400 [place] [address] Daja Mir MD 5[address] [facility] [place] [address] 10/26/2024 1:00 PM CDT Office Visit [facility] - Hematology/Oncology [address] [place] [phone] Elizabeth Garcia MD [address] [facility] 3 [place] [address] 01/17/2025 12:30 PM CDT [place] [facility] [place] [address] [place] [phone] 01/17/2025 1:00 PM CDT Office Visit [facility] - GI [address] [place] [address], [place] [address] Darius Marlena Pedro, INTERNAL AFFAIRS COMMANDER-PERIOPERATIVE EDUCATOR [address] [facility] 3[address] [place] [address] documented as of this encounter Goals Goal Patient Goal Type Associated Problems Recent Progress Patient-Stated? Author Mobility General On track( 021 9:08 AM HAM SAWYER) No Tika Pope, RN Note: Expected end [...] leg documented in this encounter Care Teams Subwarehouse Supervisor Relationship Specialty Start Date End Date Willis Veras MD [address] [place] [address] PCP - General 05/03/21 Cole Ku MD 12[address] [facility] 2L [place] [address] General Surgery 11/10/20 documented as of this encounter
--- OUTSIDE RECORDS SUMMARY | 2024-04-25 13:53 | XMS_ITS | Encounter Summary ---
Author Organization [facility] Address [address] [place] [address] Care Team Providers Care Campaign Worker Name Role Phone Cole Ku MD Unavailable Willis Veras MD Primary Care Provider Elizabeth Garcia MD Unavailable [phone] Reason for Referral * Radiology Services (Routine) - Open Specialty Diagnoses / Procedures Referred By Americo peters Referred To Contact Diagnoses Malignant neoplasm of upper-inner quadrant of left breast in female, estrogen receptor positive (HCC) Procedures MAMMO BILAT SCREENING W Elizabeth Hernandez MD [phone] [address] Referral ID Status Reason Start Date Expiration Date Visits Re quested Visits Authorized [id number] Open 10/06/2024 10/06/2025 1 1 * Consultation (Routine) - Closed Specialty Diagnoses / Procedures Referred By Americo peters Referred To Contact Diagnoses Malignant neoplasm of upper-inner quadrant of left breast in female, estrogen receptor positive (HCC) Elizabeth Garcia MD [address] [address] [address], [address] [facility] [address] [place] [address] Referral ID Status Reason Start Date Expiration Date V isits Requested Visits Authorized [id number] Closed Specialty Services Required 10/21/2023 10/20/2024 1 1 Encounter Details Date Type Department Care Team (Late st Contact Info) Description 10/21/2023 1:00 PM CDT Office Visit [facility] - Hematology/Oncology [address] [place] [address] Elizabeth Garcia MD [address] [facility] [address] [place] [address] Malignant neoplasm of upper-inner quadrant of left breast in female, estrogen receptor positive (HCC) (Primary Dx) Social History Tobacco Use Types [...] Sign Reading Time Taken Comments Blood Pressure 139/91 10/21/2023 1:17 PM CDT Pulse 79 10/21/2023 1:17 PM CDT Temperature 36.6 ??C (97.9 ??F) 10/21/2023 1:17 PM CD T Respiratory Rate - - Oxygen Saturation 99% 10/21/2023 1:17 PM CDT Inhaled Oxygen Concentration - - Weight 98.2 kg (216 lb 9.6 oz) 10/21/2023 1:17 P M CDT Height - - Body Mass Index 33.92 08/12/2023 2:53 PM CDT documented in this encounter Functional [...] No 12/05/2020 documented as of this encounter Patient Instructions * Patient Instructions* Elizabeth Garcia MD - 10/21/2023 1:36 PM CDT Thank you for entrusting your healthcare to the physicians and other specialists at the [facility]. [facility] Hematology/Oncology Clinic: For symptom management or prescription questions during business hours (Mon-Fri 8AM-4:30PM), pleasecall the triage nurse. Outside of business hours, please call the hematology/oncology doctor on-call. Hem/Onc Doctor On-Call (After hours, weekends, holidays): [phone], Dial [phone] (Plant Superintendent) and askfor the hematology/oncology fellow on-call and they will contact you within 30 minutes. If you are having a medical emergency, please call 911 or go to the nearest Emergency Room. Please call for directions for any of these symptoms: Fever higher than 100.4??F (taken by mouth) Intense chills or shakes Uncontrolled nausea/vomiting or diarrhea Abnormal bleeding or unexplained bruising New rash or allergic reaction, such as swelling of the mouth or throat, severe itching, trouble swallowing, difficulty breathing Pain or soreness at the chemo injection site or catheter site New or unusual pain, including severe headaches New chest pain or difficulty breathing documented in this encounter Progress Notes * Elizabeth Garcia MD - 10/21/2023 1:01 PM CDT Images from the original note were not included. HEMATOLOGY/ONCOLOGY CLINIC PROGRESS NOTE Name: Milagros Torres Age: [age] year old Date of : 1965 Date of Service: 10/21/2023 PCP: Willis Veras MD Hem/Onc Care Team: Elizabeth Garcia MD (Hem/Onc), Chay Major MD ([facility]) HEMATOLOGY & ONCOLOGY HISTORY Principal Diagnosis: Stage IA (pT1c pN0 cM0) invasive ductal carcinoma (ER+/RI+/HER2-) involving L breast s/p L segmental mastectomy (09/04/15), adjuvant RT (10/2015), Tamoxifen x6y (10/2015-08/2021) Current Therapy: Surveillance Prior Hematology/Oncology History: -07/2015: P/w abnormal mammo. L breast mass biopsy (07/25/15) confirmed invasive ductal carcinoma, ER+ 8/8, RI+ /8, HER- IHC 0. -09/04/15: L segmental mastectomy/SLNB (09/04/15, [facility]) pathology confirmed invasive ductal carcinoma, 1.5cm, G2, neg margins, no LVI, extensive LCIS, 0/1 SLN involved. Oncotype DX 17 (per clinical notes,no pathology records available) ~10/2015: BRCA 1/2 sequencing reported neg -10/12/15-10/20/15: Adjuvant RT -10/2015-08/2021: Tamoxifen x6y c/b abnormal uterine bleeding, EIN. TH/BSO (02/27/23) benign. SUBJECTIVE History of Present Illness Chief Complaint: Follow-up breast cancer Interval History: Patient presents unaccompanied at this visit. Since the last visit, patient overall doing well. Only complaint is that she notices differing sizes of breasts since lumpectomy, but not interested in Plastic Surg referral as worries about insurance coverage. She is anxious as her sister from metastatic breast cancer that was initially diagnosed at early stage. Energy levels and appetite stable. Independent of ADLs and IADLs. Denies breastchanges, chest pain, dyspnea, cough, unintentional weight loss, new bone pain. Past Medical & Surgical History Breast cancer as above, HTN, NAFLD, CKD, DJD, depression, anxiety, TH/BSO, L knee arthroplasty, , cholecystectomy Past Oncology History Cancer Staging Malignant neoplasm of upper-inner quadrant of left breast in female, estrogen receptor positive (HCC) Staging form: Breast, AJCC V7 - Pathologic stage from 09/04/2015: Stage IA (T1c, N0, cM0) - Signed by Elizabeth Garcia MD on 10/21/2023 Oncology History Overview Note -07/2015: P/w abnormal mammo. L breast mass biopsy (07/25/15) confirmed invasive ductal carcinoma, ER+ 8/8, RI+ /8, HER- IHC 0. -09/04/15: L segmental mastectomy/SLNB (09/04/15, [facility]) pathology confirmed invasive ductal carcinoma, 1.5cm, G2, neg margins, no LVI, extensive LCIS, 0/1 SLN involved. Oncotype DX 17 (per clinical notes,no pathology records available) ~10/2015: BRCA 1/2 sequencing neg (per report, no records available) -10/12/15-10/20/15: Adjuvant RT -10/2015-08/2021: Tamoxifen x6y c/b abnormal uterine bleeding, EIN. TH/BSO (02/27/23) benign. Malignant neoplasm of upper-inner quadrant of left breast in female, estrogen receptor positive (HCC) 07/27/2015 Initial Diagnosis Malignant neoplasm of upper-inner quadrant of left breast in female, estrogen receptor positive (HCC) 09/04/2015 Surgery L segmental mastectomy/SLNB (09/04/15, [facility]) pathology confirmed invasive ductal carcinoma, 1.5cm, G2,neg margins, no LVI, extensive LCIS, 0/1 SLN involved. Oncotype DX 17 (per clinical notes, no pathology records available) 10/12/2015 - 10/20/2015 Radiation Adjuvant RT 10/2015 - 08/2021 Chemotherapy Tamoxifen x6y c/b abnormal uterine bleeding, EIN. 02/27/2023 Surgery TH/BSO (02/27/23) benign Social History Lives with boyfriend. Has 3 children, 3 grandchildren. Denies tobacco, alcohol, or recreational drug use. 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 Family History Mother with lung cancer (age 60s, smoker). Sister with breast cancer, age 50s. Brother prostate cancer, age 60s. Maternal uncle with lung cancer (smoker). Paternal aunt with lung cancer (smoker). Maternal uncle with unknown type of cancer. Medications Current Outpatient Medications Medication Sig calcium 600 MG tablet Take 1 tablet by mouth daily with food celecoxib (CeleBREX) 50 MG capsule Take 2 (two) capsules by mouth once daily famotidine (Pepcid) 20 MG tablet Take 1 (one) tablet by mouth once daily losartan - hydroCHLOROthiazide (Hyzaar) 50-12.5 MG tablet Take 1 (one) tablet by mouth once daily [place]-3 Fatty Acids (fish oil) 1000 MG capsule Take by mouth once daily Vitamin D3, cholecalciferol, 50 MCG (2000 UT) tablet Take 1 tablet by mouth once daily No current facility-administered medications for this visit. Allergies No Known Allergies OBJECTIVE Physical Exam Vitals: 10/21/23 1317 BP: 139/91 Pulse: 79 Temp: 97.9 ??F (36.6 ??C) SpO2: 99% Weight: 98.2 kg (216 lb 9.6 oz) Wt Readings from Last 3 Encounters: 10/21/23 98.2 kg (216 lb 9.6 oz) 08/12/23 98.1 kg (216 lb 3.2 oz) 04/09/23 95.3 kg (210 lb) ECO General: Well-developed woman. No acute distress. Head: Normocephalic, atraumatic. Eyes: Conjunctivae clear. No scleral icterus. Ears: Normal external ears. Hearing intact to voice. Breast: Deferred Lungs: Nonlabored respirations. Musculoskeletal: Ambulates without assistance. Skin: Warm, dry. No rash. Neurologic: Alert, oriented. No gross focal neurologic deficits. Psychiatric: Cooperative. Appropriate mood and affect. Laboratory Results Recent Labs Component Name 02/19/23 1008 01/07/23 0608 12/30/22 0000 10/21/22 1203 02/02/22 0158 01/22/22 1015 WBC 6.9 5.0 4.9 5.8 - 5.3 RBC 4.26 4.04 - 4.00 - 4.01 HGB 12.8 12.4 12.5 12.0 - 12.1 HCT 37.6 37.3 38.2 35.9 - 36.6 MCV 88.3 92.3 - 89.8 - 91.3 MCHC 34.0 33.2 - 33.4 - 33.1 PLTCOUNT 159 144* - 163 - 178 NEUTPCT 49.8 41.8* - 45.1 - 49.5 LYMPHPCT 40.9 47.7* - - - 38.5 BASOPHILPCT 0.6 0.4 - - - 0.6 GRANSIMMPCT 0.1 0.2 - - - 0.4 NEUTABS 3.41 2.07 2.3 2.62 - 2.60 LYMPHABS 2.80 2.36 - - - 2.02 BASOABS 0.04 0.02 - - - 0.03 - = values in this interval not displayed. Recent Labs Component Name 02/19/23 1008 01/07/23 0608 12/30/22 0000 10/21/22 1203 03/20/22 1036 01/22/22 1015 SODIUM 142 141 143 - - 139 POTASSIUM 4.0 3.9 4.4 3.8 3.7 3.8 CHLORIDE 108* 110* 107* - - 107 CO2 24 22 22 27 21* 21* BUN 12 15 17 16 15 20 CREATININE 1.01 0.88 - 0.96 1.07* 1.15* EGFR 65* 76* 64 69* 61* 56* GLUCOSE 92 95 90 95 147* 91 CALCIUM 10.0 9.7 9.7 9.3 9.3 9.4 TPROT - - 7.5 - - 7.2 ALBUMIN - - - - - 4.1 ALT - - 34 80* 21 36 AST - - 39 102* 36* 51* ALKPHOS - - 88 77 87 67 TBIL - - 0.3 - - 0.5 Pathology Results Personally reviewed and summarized above in Hematology & Oncology History Radiology Results Personally reviewed and summarized above in Hematology & Oncology History MAMMO BILAT DIAGNOSTIC [place] Result Date: 10/09/2023 : No bilateral mammographic or targeted left breast sonographic evidence of malignancy. RECOMMENDATION: Screening mammography recommended in one year, pending no interval breast concerns. Dr. Bueno discussed the examination findings and recommendations with the patient at the time of the examination. OVERALL ASSESSMENT: BI-RADS CATEGORY 2: BENIGN. > Interpreting Provider: Germaine Bueno MD on 10/09/2023 5:28 PM US BREAST LEFT LTD (Diagnostic , most commonly ordered) Result Date: 10/09/2023 : No bilateral mammographic or targeted left breast sonographic evidence of malignancy. RECOMMENDATION: Screening mammography recommended in one year, pending no interval breast concerns. Dr. Bueno discussed the examination findings and recommendations with the patient at the time of the examination. OVERALL ASSESSMENT: BI-RADS CATEGORY 2: BENIGN. > Interpreting Provider: Germaine Bueno MD on 10/09/2023 5:28 PM ASSESSMENT Milagros Torres is a 58 year old female with stage IA (pT1c pN0 cM0) invasive ductal carcinoma (ER+/RI+/HER2-) involving L breast s/p L segmental mastectomy (09/04/15), adjuvant RT (10/2015), Tamoxifen x6y (10/2015-08/2021), HTN, NAFLD, CKD, DJD who presents for annual surveillance exam, mammogram review. 1. Breast Ca: Counseled patient on early stage ER+/RI+ breast cancer diagnosis, curative intent of surgical resection, goals of perioperative systemic therapy to reduce the risk of cancer recurrence,and recommendations for surveillance going forward. She is >8y from definitive management with no clinical evidence of cancer recurrence. No role for routine surveillance imaging or labs unless warranted by new signs or symptoms. Continue annual screening bilateral mammograms as she is at increased risk of developing new primary breast cancer in residual breast tissue. Counseled patient on cancer survivorship principles including maintaining healthy weight, well-balanced diet, regular exercise, avoidance of tobacco and excess alcohol use, and following with PCP formanagement of chronic medical conditions and age-appropriate cancer screenings. 2. Genetics: Prior records noted negative BRCA1/2 mutation testing at diagnosis, however unclear whether she had complete panel performed. She is very interested in updated germline genetic testing if offered given her strong family history of cancers. Referral placed. PLAN -Genetic counseling referral for germline testing given personal and family history -Continue annual bilateral screening mammograms, next due ~10/2024 -Continue to follow with PCP for management of chronic medical conditions, age- appropriate cancer screenings -RTC in 1y for annual surveillance exam. Offered discharge from oncology clinic to follow with PCP however wishes to continue annual visits. All questions were answered to patient's satisfaction. Patient advised to contact the clinic with any further questions or concerns. A total of 45 minutes was spent on the date of service performing any of the following: preparing to see the patient, obtaining history and performing exam, independently interpreting tests and communicating results, counseling and educating the patient/family/caregiver, ordering medications and diagnostic studies, documenting in the health record, and care coordination. * Grace Moseley MD - 10/21/2023 1:00 PM CDT Images from the original note were not included. HEMATOLOGY/ONCOLOGY CLINIC PROGRESS NOTE Name: Milagros Torres Age: [age] year old Date of : 1965 Date of Service: 10/21/2023 PCP: Willis Veras MD Hem/Onc Care Team: Grace Moseley MD (Hem/Onc fellow) Dr. 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 Currently on surveillance and presents for f/u yearly visit. Current Therapy: Surveillance Prior Hematology/Oncology History: -07/2015: Abnormal mammogram 07/25/15: Breast biopsy showed invasive ductal carcinoma. ER+/RI+/HER2- (IHC 0), Negative US-guided FNA procedure on axillary lymph node. -09/04/2015: Left breast lumpectomy with SLNB with Dr. Brittni Knight at [facility]. Demonstrated a 1.5 cm, invasive ductal carcinoma,G2. Negative margins, no LVI. Negative SLNB (0/1). + Extensive LCIS, Oncotype DX score 17. -BRCA 1/2 sequencing and deletion/duplication analysis negative. 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 10/09/23 mammo/US showed stable Post lumpectomy scar in the superior left breast with benign coarsedystrophic microcalcifications representing fat necrosis and planned to switch to yearly screening mamogram again. SUBJECTIVE History of Present Illness Chief Complaint: Follow-up/ new to provider Interval History: Patient presents unaccompanied at this visit. She feels over all fine and does not have any new lump, bump in breast, skin changes, breast discharges, pain. No bone pain, weight loss, loss of appetite, fracture, CP, SOB, abd pain. No further vaginal bleeding. Active and independent of ADLs. Review of Systems: As noted in HPI. All other systems reviewed and negative. Past Medical & Surgical History Patient Active Problem List Diagnosis Complex endometrial hyperplasia with atypia S/P total hysterectomy and BSO (bilateral salpingo-oophorectomy) S/P total knee arthroplasty, left NAFLD (nonalcoholic fatty liver disease) 11/10/20 Fibroscan CAP 332, LSM 9.4 kPa 01/17/23 Fibroscan CAP 275, LSM 6.4 kPa Depression Anxiety Malignant neoplasm of upper-inner quadrant of left breast in female, estrogen receptor positive (HCC) Benign essential HTN Past Medical History: Diagnosis Date Arthropathy Breast [...] breast left Valvular heart disease heart murmur Past Surgical History: Procedure Laterality Date Bilateral [...] ARTHROPLASTY Left 02/01/2022 Left; TOTAL KNEE ARTHROPLASTY Past Oncology History Cancer Staging Malignant neoplasm of upper-inner quadrant of left breast in female, estrogen receptor positive (HCC) Staging form: Breast, AJCC V7 - Pathologic stage from 09/04/2015: Stage IA (T1c, N0, cM0) - Signed by Elizabeth Garcia MD on 10/21/2023 Oncology History Overview Note -07/2015: P/w abnormal mammo. L breast mass biopsy (07/25/15) confirmed invasive ductal carcinoma, ER+ 8/8, RI+ /8, HER- IHC 0. -09/04/15: L segmental mastectomy/SLNB (09/04/15, [facility]) pathology confirmed invasive ductal carcinoma, 1.5cm, G2, neg margins, no LVI, extensive LCIS, 0/1 SLN involved. Oncotype DX 17 (per clinical notes,no pathology records available) ~10/2015: BRCA 1/2 sequencing neg (per report, no records available) -10/12/15-10/20/15: Adjuvant RT -10/2015-08/2021: Tamoxifen x6y c/b abnormal uterine bleeding, EIN. TH/BSO (02/27/23) benign. Malignant neoplasm of upper-inner quadrant of left breast in female, estrogen receptor positive (HCC) 07/27/2015 Initial Diagnosis Malignant neoplasm of upper-inner quadrant of left breast in female, estrogen receptor positive (HCC) 09/04/2015 Surgery L segmental mastectomy/SLNB (09/04/15, [facility]) pathology confirmed invasive ductal carcinoma, 1.5cm, G2,neg margins, no LVI, extensive LCIS, 0/1 SLN involved. Oncotype DX 17 (per clinical notes, no pathology records available) 10/12/2015 - 10/20/2015 Radiation Adjuvant RT 10/2015 - 08/2021 Chemotherapy Tamoxifen x6y c/b abnormal uterine bleeding, EIN. 02/27/2023 Surgery TH/BSO (02/27/23) benign Social History Social History Tobacco Use Smoking status: Never Smokeless tobacco: Never Substance Use Topics Alcohol use: Yes Comment: ocassional weekends Family History Family History Problem Relation Name Age of Onset Cancer - Lung Mother Cancer - Breast Sister Cancer - Prostate Brother Maternal aunt also lung cancer Medications Current Outpatient Medications Medication Sig calcium 600 MG tablet Take 1 tablet by mouth daily with food celecoxib (CeleBREX) 50 MG capsule Take 2 (two) capsules by mouth once daily famotidine (Pepcid) 20 MG tablet Take 1 (one) tablet by mouth once daily losartan - hydroCHLOROthiazide (Hyzaar) 50-12.5 MG tablet Take 1 (one) tablet by mouth once daily [place]-3 Fatty Acids (fish oil) 1000 MG capsule Take by mouth once daily Vitamin D3, cholecalciferol, 50 MCG (2000 UT) tablet Take 1 tablet by mouth once daily No current facility-administered medications for this visit. Allergies No Known Allergies OBJECTIVE Physical Exam Vitals: 10/21/23 1317 BP: 139/91 Pulse: 79 Temp: 97.9 ??F (36.6 ??C) SpO2: 99% Weight: 98.2 kg (216 lb 9.6 oz) Wt Readings from Last 3 Encounters: 10/21/23 98.2 kg (216 lb 9.6 oz) 08/12/23 98.1 kg (216 lb 3.2 oz) 04/09/23 95.3 kg (210 lb) ECOG: General: Well-developed . No acute distress. Head: Normocephalic, atraumatic. Eyes: Conjunctivae clear. No scleral icterus. Ears: Normal external ears. Hearing intact to voice. Nose: Symmetric nose. No visible drainage. Throat: Moist mucous membranes. No visible mouth sores. Neck: Supple, trachea midline. Heart: Normal S1, S2. Regular rate and rhythm. Lungs: Symmetric breath sounds. Clear to auscultation. Nonlabored respirations. Abdomen: Soft, nontender, nondistended. Lymph: No palpable cervical or supraclavicular lymphadenopathy. Extremities: No clubbing or edema. Musculoskeletal: No spinal tenderness or visible deformity. Ambulates without assistance. Skin: Warm, dry. No rash. Neurologic: Alert, oriented. No gross focal neurologic deficits. Psychiatric: Cooperative. Appropriate mood and affect. Laboratory Results Recent Labs Component Name 02/19/23 1008 01/07/23 0608 12/30/22 0000 10/21/22 1203 02/02/22 0158 01/22/22 1015 WBC 6.9 5.0 4.9 5.8 - 5.3 RBC 4.26 4.04 - 4.00 - 4.01 HGB 12.8 12.4 12.5 12.0 - 12.1 HCT 37.6 37.3 38.2 35.9 - 36.6 MCV 88.3 92.3 - 89.8 - 91.3 MCHC 34.0 33.2 - 33.4 - 33.1 PLTCOUNT 159 144* - 163 - 178 NEUTPCT 49.8 41.8* - 45.1 - 49.5 LYMPHPCT 40.9 47.7* - - - 38.5 BASOPHILPCT 0.6 0.4 - - - 0.6 GRANSIMMPCT 0.1 0.2 - - - 0.4 NEUTABS 3.41 2.07 2.3 2.62 - 2.60 LYMPHABS 2.80 2.36 - - - 2.02 BASOABS 0.04 0.02 - - - 0.03 - = values in this interval not displayed. Recent Labs Component Name 02/19/23 1008 01/07/23 0608 12/30/22 0000 10/21/22 1203 03/20/22 1036 01/22/22 1015 SODIUM 142 141 143 - - 139 POTASSIUM 4.0 3.9 4.4 3.8 3.7 3.8 CHLORIDE 108* 110* 107* - - 107 CO2 24 22 22 27 21* 21* BUN 12 15 17 16 15 20 CREATININE 1.01 0.88 - 0.96 1.07* 1.15* EGFR 65* 76* 64 69* 61* 56* GLUCOSE 92 95 90 95 147* 91 CALCIUM 10.0 9.7 9.7 9.3 9.3 9.4 TPROT - - 7.5 - - 7.2 ALBUMIN - - - - - 4.1 ALT - - 34 80* 21 36 AST - - 39 102* 36* 51* ALKPHOS - - 88 77 87 67 TBIL - - 0.3 - - 0.5 Pathology Results Personally reviewed and summarized above in Hematology & Oncology History Radiology Results Personally reviewed and summarized above in Hematology & Oncology History MAMMO BILAT DIAGNOSTIC [place] Result Date: 10/09/2023 : No bilateral mammographic or targeted left breast sonographic evidence of malignancy. RECOMMENDATION: Screening mammography recommended in one year, pending no interval breast concerns. Dr. Bueno discussed the examination findings and recommendations with the patient at the time of the examination. OVERALL ASSESSMENT: BI-RADS CATEGORY 2: BENIGN. US BREAST LEFT LTD (Diagnostic , most commonly ordered) Result Date: 10/09/2023 : No bilateral mammographic or targeted left breast sonographic evidence of malignancy. RECOMMENDATION: Screening mammography recommended in one year, pending no interval breast concerns. Dr. Bueno discussed the examination findings and recommendations with the patient at the time of the examination. OVERALL ASSESSMENT: BI-RADS CATEGORY 2: BENIGN. 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 Currently on surveillance and presents for f/u yearly visit. #Breast cancer Counseled the patient on early stage breast cancer and overall curative intent of the treatment andadj therapies for reducing risk of recurrence. She is s/p ~7 years of adj Tamoxifen that was stayedon longer given anxiety for stopping adj treatment and preferred to cont longer for which c/b abnormal uterine bleeding, and EIN that required TH/BSO. Sheis continuing with yearly mammogram/US and most recent one 10/09/2023 didn't show any concern and prior reports of microcalcification looks benign without a need for sooner imaging. She doesn't have any clinical signs of disease progression. Discussed and educated about alarming signs and symptoms and nature of the hr+ disease that tend to return later years. She knows to reach out and call if any new breast lump/discharge/skin changes, bone pain or unusual concerning systemicsymptoms. She only had BRCA testing and not a whole genetic panel. She is interested to for a referral for genetic counseling given strong FH of cancer ( sister/brother/mother/aunt) Counseled on cancer survivorship principles including maintaining healthy weight, well-balanced diet, regular exercise, avoiding tobacco use or excess alcohol use, following with PCP regularly for age-appropriate cancer screenings and management of chronic medical conditions. She doesn't need to cont with regular visit with hemonc and if feels comfortable with f/u with PCP,can come back to our clinic on a PRN bases if any concerns in future but prefers to come back in 1 year still until 10 year timeline. #Hepatic steatosis Follows with GI Advised on weight loss/diet and exercise #Abnormal uterine bleeding, and EIN S/p TH/BSO with bening pathology Cont to follow up with OBGGYN #[facility] Due for colonoscopy, planning to schedule this month PLAN -Will send referral to genetic counseling -Continue to follow with PCP for management of chronic medical conditions, age- appropriate cancer screenings as above, including colonoscopy -Cont with yearly mammogram -RTC in 1yr All questions were answered to patient's satisfaction. Patient advised to contact the clinic with any further questions or concerns. A total of 65 minutes was spent on the date of service performing any of the following: preparing to see the patient, obtaining history and performing exam, independently interpreting tests and communicating results, counseling and educating the patient/family/caregiver, ordering medications and diagnostic studies, documenting in the health record, and care coordination. Associated attestation - Elizabeth Garcia MD - 10/21/2023 5:25 PM CDT HEMATOLOGY/ONCOLOGY ATTENDING PHYSICIAN ATTESTATION: Date of Service: 10/21/2023 Patient was seen and examined with the resident/fellow. I confirm their findings and agree with theplan of care as outlined. See my separate attending physician attestation. Elizabeth Garcia MD Ball Mill Mixerchronometer tester, Division of Hematology/Oncology Associate Central Office Frame Wirer, Hematology/Oncology Fellowship [facility] documented in this encounter Plan of Treatment Upcoming Encounters Date Type Department Care Team (Late st Contact Info) Description 06/02/2024 10:30 AM COAT TAILOR Office Visit [facility] - Orthopedic Surgery [facility] [place] [phone] Kevin Britton MD 1031 [facility] [address] [place] [address] 08/10/2024 1:00 PM CDT Office Visit [facility] - GAS BLENDER 1031 [facility] 400 [place] [phone] Daja Mir MD 5708 [facility] [place] [address] 10/26/2024 1:00 PM CDT Office Visit [facility] - Hematology/Oncology 3655 [place] [phone] Elizabeth Garcia MD 3665 [facility] 3 [place] [address] 01/17/2025 12:30 PM CDT Procedure visit [facility] - GI [address] [place] [phone] 01/17/2025 1:00 PM CDT Office Visit [facility] - GI [address] [place] [phone] Marlena Mccoy, GRINDER GEAR-BIOLOGICAL CHEMIST [address] [place] [address] 3F DIV [place] [address] Scheduled Orders Name Type Priority Associated Diagnoses Orde r Schedule MAMMO BILAT SCREENING [place] Imaging Routine Malignant neoplasm of upper-inner quadrant of left breast in female, estrogen receptor positive (HCC) Expected: 10/06/2024 (Approximate), Expires: 10/20/2024 Scheduled Referrals Name Type Priority Associated Diagnoses Order Schedule AMB REFERRAL TO GENETIC COUNSELING Outpatient Referral Routine Malignant neoplasm of upper-inner quadrant of left breast in female, estrogen receptor positive (HCC) 1 Occurrences starting 10/21/2023 until 10/20/2024 documented as of this encounter Goals Goal Patient Goal Type Associated Problems Recent Progress Patient-Stated? Author Mobility General On track( 021 9:08 AM COAT TAILOR) No Tika Pope, RN Note: Expected end [...] as of this encounter Visit Diagnoses Diagnosis Malignant neoplasm of upper-inner quadrant of left breast in female, estrogen receptor positive (HCC)- Primary documented in this encounter Care Teams Campaign Worker Relationship Specialty Start Date End Date Willis Veras MD [address]16 [place] [address] PCP - General 05/03/21 Cole Ku MD [address] OF [facility] [place] [address] General Surgery 11/10/20 Elizabeth Garcia MD [address] [address] Hematology and Oncology 10/21/23 documented as of this encounter
--- OUTSIDE RECORDS SUMMARY | 2024-04-25 13:53 | XMS_ITS | Encounter Summary ---
Author Organization [facility] Address [address] [place] [address] Care Team Providers Care Red [employer] Executive Director Name Role Phone Cole Ku MD Unavailable Willis Veras MD Primary Care Provider Reason for Visit * Reason Comments Well Women Exam Encounter Details Date Type Department Care Team (Latest Contact Info) Description 08/12/2023 3:15 PM CDT Office Visit [facility] - SUPERVISOR HAND SILVERING 1031 [facility] [address] [place] [address] Daja Mir MD 5519 [facility] [place] [place] [address] Well woman exam with routine gynecological exam (Primary Dx) Social History Tobacco Use Types [...] Sign Reading Time Taken Comments Blood Pressure 130/70 08/12/2023 2:53 PM CDT Pulse - - Temperature - - Respiratory Rate - - Oxygen Saturation - - Inhaled Oxygen Concentration - - Weight 98.1 kg (216 lb 3.2 oz) 08/12/2023 2:53 P M CDT Height 170.2 cm (5' 7 ) 08/12/2023 2:53 PM CDT Body Mass Index 33.86 08/12/2023 2:53 PM CDT documented in this [...] this encounter Patient Instructions * Patient Instructions* Daja Mir MD - 08/12/2023 3:21 PM CDT Annual Exam visits: I performed a pap smear at your visit today. You will be informed of these results either by letteror phone call in the next 2-3 weeks. If you do not hear from my office by 3 weeks from now, please call us. I recommend monthly self breast exams for all of my patients. Please call if you find anything concerning. If you are having a mammogram done, you should get results from the breast center by mail or a callfrom our office. If you do not get either within 2 weeks of your mammogram then please call our office. To promote bone health: Take calcium daily (dietary intake plus supplementation to total 1200 mg) Take vitamin D (600-800 IU) supplementation daily Increase weight bearing exercise to promote bone health. How to Contact Us Between Office Visits If you need to make an appointment with your doctor, please do so before you leave today. If you need to check your schedule prior to making your next appointment, please call us at [phone] as soon as possible to schedule. For scheduling routine appointments, requesting refills or leaving a message for your doctor, the office phone is [phone]. You will be given options to get to the assistance you need. Phone lines are open from 8:00 am to4:30 pm Friday through Friday. All prescription refills must be requested during regular office phone hours. Our fax number is [phone]. Please return in 1 year for your annual exam. documented in this encounter Progress Notes * Daja Mir MD - 08/12/2023 3:15 PM CDT New Corrugator Operator Helper Annual Exam Note: History of Present Illness: Ms. Trinidad a 58 year old who presents for a WWE. Her last WWE was a little over a year ago. The pt is doing well and has no complaints. Gynecologic history: Last mammogram: 04/2023 Breast self exam:yes S/p Hysterectomy BSO 02/2023 Last Pap: 07/2022 Pap smear history: denies h/o abnormal Sexually transmitted diseases: denies Sexual concerns: none Number of partners: 1 OB history: OB History Para Term AB Living 3 SAB IAB Ectopic Multiple Live Births # Outcome Date GA Lbr Fabiano/2nd Weight Sex Delivery Anes PTL Lv 3 2 1 Immunization history: Immunization History Administered Date(s) Administered ??? Covid Pfizer primary monovalent 12+ yr 0.3mL Purple cap 08/27/2020, 09/24/2020 ??? TDAP (7yrs+) 02/06/2019 Medical history: Past Medical History: Diagnosis Date ??? Arthropathy [...] left ??? Valvular heart disease heart murmur Surgical history: Past Surgical History: Procedure Laterality Date ??? [...] ARTHROPLASTY Left 02/01/2022 Left; TOTAL KNEE ARTHROPLASTY Social history: Social History Socioeconomic History ??? Marital status: [...] on file Housing Stability: Not on file Family history: Family History Problem Relation Name Age of Onset ??? Cancer - Lung Mother ??? Cancer - Breast Sister ??? Cancer - Prostate Brother Medications: Current Outpatient Medications Medication Sig Dispense Refill ??? calcium 600 MG tablet Take 1 tablet by mouth daily with food 90 tablet 2 ??? celecoxib (CeleBREX) 50 MG capsule Take 2 (two) capsules by mouth once daily 60 capsule 1 ??? famotidine (Pepcid) 20 MG tablet Take 1 (one) tablet by mouth once daily ??? losartan - hydroCHLOROthiazide (Hyzaar) 50-12.5 MG tablet Take 1 (one) tablet by mouth once daily ??? Timberlake-3 Fatty Acids (fish oil) 1000 MG capsule Take by mouth once daily ??? Vitamin D3, cholecalciferol, 50 MCG (2000 UT) tablet Take 1 tablet by mouth once daily 90 tablet 2 No current facility-administered medications for this visit. Allergies: No Known Allergies Review of Systems: Constitutional: Negative for fatigue, weight loss, weight gain. Respiratory: Negative for shortness of breath, dyspnea on exertion, wheezing Cardiovascular: Negative for palpitations, tachycardia, irregular heart beat Gastrointestinal: Negative for nausea, vomiting, change in bowel habits Genitourinary:negative for frequency, dysuria, hematuria, and vaginal discharge Integument/breast: negative for breast lump, nipple discharge, and breast tenderness Musculoskeletal:Negative for joint pain, back pain, muscle pain Neurological: Negative for headaches, migraine headaches, dizziness Behavioral/Psych: Negative for depressed mood, anxiety, abusive relationship Endocrine: Negative for cold intolernance, heat intolerance, hot flashes Physical examination: BP 130/70 Ht 1.702 m (5' 7 ) Wt 98.1 kg (216 lb 3.2 oz) General: No acute distress. Alert and oriented x3. Affect appropriate. Nodes: Groin: No palpable lymphadenopathy Breasts: No masses, skin changes or nipple discharge. Abdomen: Soft, non-distended, no masses or tenderness. Psychiatric: Affect:within normal limits External Genitalia: Within normal limits, no lesions or masses. Urethral meatus: within normal limits. Urethra: Within normal limits. Bladder: Within normal limits. Vagina: Normal rugae, no lesions. Vaginal Cuff: well healed, no pelvic fullness palpated Cervix/uterus/adenxa: surgically absent Anus/Perineum: Within normal limits. Rectovaginal exam: Not performed. Assessment and Plan: Well woman examination: 1. Pap Smear: not necessary at this time 2. Advised on self breast examination. Health maintenance 1. Mammogram: Due for left breast diagnostic mammogram and right screening mammogram in October, 2. Colonoscopy: due in 09/2023 pt reports she is getting it scheduled soon 3. Dexa Scan: n/a 4. Calcium/vit D Next visit in 1 year Time spent counseling patient: 12 minutes Total face to face time: 15 minutes Patient counseled on: breast self exam, mammograms, colonoscopy Daja Mir MD documented in this encounter Plan of Treatment Upcoming Encounters Date Type Department Care Team (Late st Contact Info) Description 06/02/2024 10:30 AM ELECTROLOGIST Office Visit [facility] - Orthopedic Surgery 10[address] [place] [phone] Kevin Britton MD 1031 [facility] 280 [place] [address] 08/10/2024 1:00 PM CDT Office Visit [facility] - SUPERVISOR HAND SILVERING 1031 [facility] 400 [place] [address] Daja Mir MD 5702 [facility] [place] [place] [address] 10/26/2024 1:00 PM CDT Office Visit [facility] - Hematology/Oncology [address] [place] [phone] Elizabeth Garcia MD 3668 [facility] 3 [place] [address] 01/17/2025 12:30 PM CDT [place] [facility] [place] [address] [place] [address] [place] [address] 01/17/2025 1:00 PM CDT Office Visit [facility] - GI 12[address] [facility] [place] [phone] Marlena Mccoy, DONOR SERVICES TECHNICIAN-SENIOR PYTHON DEVELOPER [address] [place] [address] [address]FL [place] [address] documented as of this encounter Goals Goal Patient Goal Type Associated Problems Recent Progress Patient-Stated? Author Mobility General On track( 9:08 AM ELECTROLOGIST) No Tika Pope, RN Note: Expected end [...] as of this encounter Visit Diagnoses Diagnosis Well woman exam with routine gynecological exam- Primary Routine gynecological examination documented in this encounter Care Teams Red Cross Executive Director Relationship Specialty Start Date End Date Willis Veras MD 6616 [place] [address] PCP - General 05/03/21 Cole Ku MD 1225 [facility] 2L [place] [address] General Surgery 11/10/20 documented as of this encounter
--- OUTSIDE RECORDS SUMMARY | 2024-04-25 13:53 | XMS_ITS | Encounter Summary ---
Author Organization [facility] Address [address] [facility] [place] [address] Care Team Providers Care Heating Operators Engineer Name Role Phone Cole Ku MD Unavailable Willis Veras MD Primary Care Provider Encounter Details Date Type Department Care Team (Latest Contact Info) Description 08/07/2023 Travel Social History Tobacco Use Types Packs/Day [...] st Contact Info) Description 06/02/2024 10:30 AM EMPLOYEE ADVISER Office Visit [facility] - Orthopedic Surgery 1031 [place] [phone] Kevin Britton MD [address] [facility] 280 [place] [address] 08/10/2024 1:00 PM CDT Office Visit [facility] - MAT WORKER 1031 [facility] 400 [place] [phone] Daja Mir MD 5701 [facility] [place] [address] 10/26/2024 1:00 PM CDT Office Visit [facility] - Hematology/Oncology 3655 [place] [phone] Elizabeth Garcia MD 3665 [facility] 3 [place] [address] 01/17/2025 12:30 PM CDT Procedure visit [facility] - GI 1225 [place] [phone] 01/17/2025 1:00 PM CDT Office Visit [facility] - GI [facility]5 [place] [phone] Marlena Mccoy, AERIAL APPLICATOR PILOT-RESIDENTIAL SALES ASSOCIATE [address] [place] [address] [facility] [place] [address] documented as of this encounter Goals Goal Patient Goal Type Associated Problems Recent Progress Patient-Stated? Author Mobility General On track( 021 9:08 AM EMPLOYEE ADVISER) No Tika Pope, SABRINA Note: Expected end [...] on filedocumented in this encounter Care Teams Heating Operators Engineer Relationship Specialty Start Date End Date Willis Veras MD 6616 [place] [address] PCP - General 05/03/21 Cole Ku MD [address] [phone] General Surgery 11/10/20 documented as of this encounter
--- OUTSIDE RECORDS SUMMARY | 2024-04-25 13:53 | XMS_ITS | Encounter Summary ---
Author Organization [facility] Address [address] [facility] [place] [address] Care Team Providers Care Catering Server Name Role Phone Cole Ku MD Unavailable Willis Veras MD Primary Care Provider Elizabeth Garcia MD Unavailable [phone] Encounter Details Date Type Department Care Team (Latest Contact Info) Description 01/09/2024 Travel Social History Tobacco Use Types Packs/Day [...] st Contact Info) Description 06/02/2024 10:30 AM .NET PROGRAMMER Office Visit [facility] - Orthopedic Surgery 1031 [place] [phone] Kevin Britton MD 1031 [facility] 280 [place] [address] 08/10/2024 1:00 PM CDT Office Visit [facility] - BANNER PAINTER 1031 [facility] 400 [place] [phone] Daja Mir MD 5708 [place] [address] 10/26/2024 1:00 PM CDT Office Visit [facility] - Hematology/Oncology 3650 [place] [phone] Elizabeth Garcia MD 3662 [facility] 3 [place] [address] 01/17/2025 12:30 PM CDT Procedure visit [facility] - GI [address] [place] [phone] 01/17/2025 1:00 PM CDT Office Visit [facility] - GI [address] [place] [phone] Marlena Mccoy, OYSTER UNLOADER-SHOTWELD OPERATOR [address] [place] [address] 3FL DIV OF GASTROENTEROLOGY [place] [phone] documented as of this encounter Goals Goal Patient Goal Type Associated Problems Recent Progress Patient-Stated? Author Mobility General On track( 021 9:08 AM .NET PROGRAMMER) No Tika Pope, RN Note: Expected end [...] on filedocumented in this encounter Care Teams Catering Server Relationship Specialty Start Date End Date Willis Veras MD [address]16 [place] [address] PCP - General 05/03/21 Cole Ku MD 1225 [facility] 2L [place] [address] General Surgery 11/10/20 Elizabeth Garcia MD 3665 [facility] 3 [place] [address] Hematology and Oncology 10/21/23 documented as of this encounter
--- OUTSIDE RECORDS SUMMARY | 2024-04-25 13:53 | XMS_ITS | Encounter Summary ---
Author Organization [facility] Address [address] [facility] [place] [address] Care Team Providers Care Perinatal Nurse Name Role Phone Cole Ku MD Unavailable Willis Veras MD Primary Care Provider Encounter Details Date Type Department Care Team (Latest Contact Info) Description 10/09/2023 Travel Social History Tobacco Use Types Packs/Day [...] st Contact Info) Description 06/02/2024 10:30 AM CORE FINISHER Office Visit [facility] - Orthopedic Surgery 1031 [place] [phone] Kevin Britton MD 1031 [facility] 280 [place] [address] 08/10/2024 1:00 PM CDT Office Visit [facility] - TOBACCO WAREHOUSE MANAGER 1031 [facility] 400 [place] [phone] Daja Mir MD 5701 [facility] [place] [address] 10/26/2024 1:00 PM CDT Office Visit [facility] - Hematology/Oncology 3655 [place] [phone] Elizabeth Garcia MD 3665 [facility] 3 [place] [address] 01/17/2025 12:30 PM CDT Procedure visit [facility] - GI 1225 [place] [phone] 01/17/2025 1:00 PM CDT Office Visit [facility] - GI [facility]5 [place] [phone] Marlena Mccoy, FOOD CRITIC-LOGISTICS MANAGEMENT SPECIALIST [address] [place] [address] [facility] [place] [address] documented as of this encounter Goals Goal Patient Goal Type Associated Problems Recent Progress Patient-Stated? Author Mobility General On track( 021 9:08 AM CORE FINISHER) No Tika Pope, SABRINA Note: Expected end [...] on filedocumented in this encounter Care Teams Perinatal Nurse Relationship Specialty Start Date End Date Willis Veras MD [address]16 [place] [address] PCP - General 05/03/21 Cole Ku MD [address] [phone] General Surgery 11/10/20 documented as of this encounter
--- OUTSIDE RECORDS SUMMARY | 2024-04-25 13:53 | XMS_ITS | Encounter Summary ---
Author Organization [facility] Address [address] [facility] [place] [address] Care Team Providers Care Freelance Digital Project Manager Name Role Phone Cole Ku MD Unavailable Willis Veras MD Primary Care Provider Elizabeth Garcia MD Unavailable [phone] Reason for Visit * Reason Onset Date Comments General 12/18/2023 Encounter Details Date Type Department Care Team (Late st Contact Info) Description 12/18/2023 Telephone [facility] 3L [address] [place] [address] Jerry Jaime, RN General Social History Tobacco Use Types [...] Telephone Encounter - Marlena Mccoy APRN-CNP - 12/18/2023 2:32 PM CDT Order is placed. I'll send her a [employer] message. Thanks * Telephone Encounter - Jerry Jaime, RN - 12/18/2023 2:19 PM CDT Calls triage re: referral for colonoscopy. documented in this encounter Plan of Treatment Upcoming Encounters Date Type Department Care Team (Late st Contact Info) Description 06/02/2024 10:30 AM PIPE ORGAN BUILDER Office Visit [facility] - [facility]opedic Surgery 1031 [place] [phone] Kevin Britton MD 1031 [facility] 280 [place] [address] 08/10/2024 1:00 PM CDT Office Visit [facility] - CLEARING TUB WORKER 1031 [facility] 400 [place] [phone] Daja Mir MD 4048 [place] [address] 10/26/2024 1:00 PM CDT Office Visit [facility] - Hematology/Oncology 1799 [place] [phone] Elizabeth Garcia MD [address] [place] [place] [place] [address] [place] [address] 01/17/2025 12:30 PM CDT Procedure [place] [facility] [place] [address] [place] [address], [place] [phone] 01/17/2025 1:00 PM CDT Office Visit [facility] - GI [address] [place] [address], [place] [phone] Marlena Mccoy, COMMERCIAL AGENT-BUSINESS PROCESS MANAGER [address] [place] [address] [facility] [place] [address] documented as of this encounter Goals Goal Patient Goal Type Associated Problems Recent Progress Patient-Stated? Author Mobility General On track( 021 9:08 AM PIPE ORGAN BUILDER) No Tika Pope, RN Note: Expected end [...] on filedocumented in this encounter Care Teams Freelance Digital Project Manager Relationship Specialty Start Date End Date Willis Veras MD 6616 [place] [address] PCP - General 05/03/21 Cole Ku MD [address] OF [place] [address] General Surgery 11/10/20 Eilzabeth Garcia MD [address] [address] Hematology and Oncology 10/21/23 documented as of this encounter
--- OUTSIDE RECORDS SUMMARY | 2024-04-25 13:53 | XMS_ITS | Encounter Summary ---
Author Organization [facility] Address [address] [facility] [place] [address] Care Team Providers Care Doggy Daycare Activities Director Name Role Phone Cole Ku MD Unavailable Willis Veras MD Primary Care Provider Elizabeth Garcia MD Unavailable [phone] Reason for Visit * Reason Comments Refill Request Encounter Details Date Type Department Care Team (Late st Contact Info) Description 10/31/2023 Refill [facility] - Orthopedic Surgery 1031 [place] [address] Kevin Britton MD 1031 [facility] 280 [place], [place] [phone] Refill Request Social History Tobacco Use Types Packs/Day Years [...] st Contact Info) Description 06/02/2024 10:30 AM PROGRAM THERAPIST Office Visit [facility] - Orthopedic Surgery 1031 [place] [address] Kevin Britton MD 1031 [facility] 280 [place] [address] 08/10/2024 1:00 PM CDT Office Visit [facility] - CAMPUS POLICE OFFICER 1031 [facility] [address] [place] [address] Daja Mir MD 8985 [facility] [place] [address] 10/26/2024 1:00 PM CDT Office Visit [facility] - Hematology/Oncology 8840 [place] [address] Elizabeth Garcia MD 1338 [facility] 3 [place] [address] 01/17/2025 12:30 PM CDT Procedure visit [facility] - GI 1225 [facility], [place] [address] 01/17/2025 1:00 PM CDT Office Visit [facility] - 1225 [facility], [place] [phone] Marlena Mccoy, CASE LOADER OPERATOR-CLERICAL SPECIALIST [address] [place] [address] 3FL DIV [place] [address] documented as of this encounter Goals Goal Patient Goal Type Associated Problems Recent Progress Patient-Stated? Author Mobility General On track( 021 9:08 AM PROGRAM THERAPIST) No Tika Pope, RN Note: Expected end [...] leg documented in this encounter Care Teams Doggy Daycare Activities Director Relationship Specialty Start Date End Date Willis Veras MD [address] [place] [address] PCP - General 05/03/21 Cole Ku MD 1225 [facility] 2L [place] [phone] General Surgery 11/10/20 Elizabeth Garcia MD 3665 [facility] 3 [place] [address] Hematology and Oncology 10/21/23 documented as of this encounter
--- OUTSIDE RECORDS SUMMARY | 2024-04-25 13:53 | XMS_ITS | Encounter Summary ---
Author Organization [facility] Address [address] [facility] [place] [address] Care Team Providers Care Vacuum Cleaner Repairer Name Role Phone Cole Ku MD Unavailable Willis Veras MD Primary Care Provider Elizabeth Garcia MD Unavailable [phone] Reason for Referral * Procedure (Routine) - Open Specialty Diagnoses / Procedures Referred By Contac t Referred To Contact Gastroenterology Diagnoses Adenomatous polyp of colon, unspecified part of colon Procedures Colonscopy Diagnostic Marlena Mccoy APRN-CNP [address] [place] [address] 3FL [facility] [place] [address] [facility] [address] [place] [phone] Referral ID Status Reason Start Date Expiration Date Visits Re quested Visits Authorized [id number] Open 12/18/2023 12/17/2024 1 1 Encounter Details Date Type Department Care Team (Late st Contact Info) Description 12/18/2023 Orders Only [facility] - GI [address] [place] [address] Marlena Mccoy APRN-CNP [address] [place] [address] [facility] [place] [address] Adenomatous polyp of colon, unspecified part of colon Social History Tobacco Use Types Packs/Day Years [...] st Contact Info) Description 06/02/2024 10:30 AM PULL THROUGH HOOKER Office Visit [facility] - Orthopedic Surgery 1031 [place] [address] Kevin Britton MD 1031 [facility] 280 [place] [address] 08/10/2024 1:00 PM CDT Office Visit [facility] - CLIENT RELATIONS ASSOCIATE 1031 [facility] [address] [place] [phone] Daja Mir MD 3587 [facility] [place] [address] 10/26/2024 1:00 PM CDT Office Visit [facility] - Hematology/Oncology 3655 [place] [address] Elizabeth Garcia MD 3663 [facility] 3 [place] [address] 01/17/2025 12:30 PM CDT Procedure visit [facility] - GI 1225 [facility], [place] [address] 01/17/2025 1:00 PM CDT Office Visit [facility] - GI [address] [place] [address], [place] [address] Marlena Mccoy, BOTTLE FILLER-PICKING TABLE WORKER [address] [place] [address] [facility] [place] [address] Scheduled Orders Name Type Priority Associated Diagnoses Orde r Schedule Colonscopy Diagnostic GI Routine Adenomatous polyp of colon, unspecified part of colon 1 Occurrences starting 12/18/2023 until 12/17/2024 documented as of this encounter Goals Goal Patient Goal Type Associated Problems Recent Progress Patient-Stated? Author Mobility General On track( 021 9:08 AM PULL THROUGH HOOKER) No Tika Pope, RN Note: Expected end [...] as of this encounter Visit Diagnoses Diagnosis Adenomatous polyp of colon, unspecified part of colon- Primary documented in this encounter Care Teams Vacuum Cleaner Repairer Relationship Specialty Start Date End Date Willis Veras MD 6616 [place] [address] PCP - General 05/03/21 Cole Ku MD [address] OF [facility] [place] [address] General Surgery 11/10/20 Elizabeth Garcia MD [address] [address] Hematology and Oncology 10/21/23 documented as of this encounter
--- OUTSIDE RECORDS SUMMARY | 2024-04-25 13:53 | XMS_ITS | Encounter Summary ---
Author Organization [facility] Address [address] [facility] [place] [address] Care Team Providers Care Negative Turner Apprentice Name Role Phone Cole Ku MD Unavailable Willis Veras MD Primary Care Provider Reason for Referral * Radiology Services (Routine) - Closed Specialty Diagnoses / Procedures Referred By Contac t Referred To Contact Ultrasound Diagnoses History of breast cancer Procedures US BREAST LEFT LTD (Diagnostic , most commonly ordered) Araseli Byers MD [address] [place] [address] [address] Referral ID Status Reason Start Date Expiration Date Visits Re quested Visits Authorized [id number] Closed 10/23/2022 10/23/2023 1 1 Reason for Visit * Radiology Services (Routine) - Closed Specialty Diagnoses / Procedures Referred By Americo peters Referred To Contact Ultrasound Diagnoses History of breast cancer Procedures US BREAST LEFT LTD (Diagnostic , most commonly ordered) Araseli Byers MD [address] [place] [address] [facility]1 [place] [address] Referral ID Status Reason Start Date Expiration Date Visits Re quested Visits Authorized [id number] Closed 10/23/2022 10/23/2023 1 1 Encounter Details Date Type Department Care Team (Late st Contact Info) Description 10/09/2023 1:45 PM CDT - 10/09/2023 11:59 PM CDT Hospital Encounter [facility] [address] [place] [address] Willis Veras MD 3417 [facility] [address] 200 [place] [address] Discharge Disposition: Home or Self Care Social [...] 1 (one) tablet by mouth once daily [place]-3 Fatty Acids (fish oil) 1000 MG capsule [...] st Contact Info) Description 06/02/2024 10:30 AM CONDUCTOR SLEEPING CAR Office Visit [facility] - Orthopedic Surgery 1031 [place] [address] Kevin Britton MD 1031 [facility] 280 [place] [address] 08/10/2024 1:00 PM CDT Office Visit [facility] - DIRECTORY OPERATOR 1031 [facility] 400 [place] [address] Daja Mir MD 5700 [facility], [place] [address] 10/26/2024 1:00 PM CDT Office Visit [facility] - Hematology/Oncology 3655 [place] [phone] Elizabeth Garcia MD [address] 3 [place] [address] 01/17/2025 12:30 PM CDT Procedure [place] [facility] [place] [address] [place] [address], [place] [address] 01/17/2025 1:00 PM CDT Office Visit [facility] [place] [address] [place] [address], [place] [address] Marlena Mccoy, INSURANCE SALES SUPERVISOR-TELETYPE TECHNICIAN [address] [place] [address] [facility] [place] [address] documented as of this encounter Goals Goal Patient Goal Type Associated Problems Recent Progress Patient-Stated? Author Mobility General On track( 021 9:08 AM CONDUCTOR SLEEPING CAR) No Tika Pope, SABRINA Note: Expected end [...] Procedure Name Priority Date/Time Associated Diagnosis Comments US BREAST LEFT LTD Routine 10/09/2023 3: 05 PM CDT History of breast cancer documented in this encounter Results * US BREAST LEFT LTD (Diagnostic , [...] ??LIMITED LEFT BREAST ULTRASOUND (COMBINED REPORT) LOCATION: [facility] EXAM DATE: ??10/09/2023 HISTORY: Follow-up to a [...] thickening noted. Araseli Byers MD US ORDERABLES documented in this encounter Visit Diagnoses Diagnosis History of breast cancer Personal history of malignant neoplasm of breast documented in this encounter Care Teams Negative Turner Apprentice Relationship Specialty Start Date End Date Willis Veras MD 6616 [place] [address] PCP - General 05/03/21 Cole Ku MD [address] OF [facility] [place] [address] General Surgery 11/10/20 documented as of this encounter
--- OUTSIDE RECORDS SUMMARY | 2024-04-25 13:53 | XMS_ITS | Encounter Summary ---
Author Organization [facility] Address [address] [facility] [place] [address] Care Team Providers Care Residential Therapist Name Role Phone Cole Ku MD Unavailable Willis Veras MD Primary Care Provider Elizabeth Garcia MD Unavailable [phone] Encounter Details Date Type Department Care Team (Latest Contact Info) Description 10/21/2023 Travel Social History Tobacco Use Types Packs/Day [...] st Contact Info) Description 06/02/2024 10:30 AM AGRICULTURAL PRODUCE PACKER Office Visit [facility] - Orthopedic Surgery 1031 [place] [address] Kevin Britton MD 1031 [facility] [address] [place] [address] 08/10/2024 1:00 PM CDT Office [facility] - MANAGER OF SECURITY 1031 [facility] [place] [facility] [address] [place] [address] Daja Mir MD 5708 [place] [address] 10/26/2024 1:00 PM CDT Office Visit [facility] - Hematology/Oncology 3650 [place] [address] Elizabeth Garcia MD [address]1 [facility] [address] [place] [address] 01/17/2025 12:30 PM CDT Procedure visit [facility] - GI [address] [place] [phone] 01/17/2025 1:00 PM CDT Office Visit [facility] - GI [address] [place] [phone] Marlena Mccoy, DEVULCANIZER LOADER-BUSINESS UNIT MANAGER [address] [place] [address] 3FL DIV OF GASTROENTEROLOGY [place] [phone] documented as of this encounter Goals Goal Patient Goal Type Associated Problems Recent Progress Patient-Stated? Author Mobility General On track( 021 9:08 AM AGRICULTURAL PRODUCE PACKER) No Tika Pope, RN Note: Expected end [...] on filedocumented in this encounter Care Teams Residential Therapist Relationship Specialty Start Date End Date Willis Veras MD 6616 [place] [address] PCP - General 05/03/21 Cole Ku MD 1225 S [facility] 2L [place] [address] General Surgery 11/10/20 Elizabeth Garcia MD [address] [facility] [address] [place] [address] Hematology and Oncology 10/21/23 documented as of this encounter
--- OUTSIDE RECORDS SUMMARY | 2024-04-25 13:53 | XMS_ITS | Encounter Summary ---
Author Organization [facility] Address [address] [facility] [place] [address] Care Team Providers Care Photographic Technician Name Role Phone Cole Ku MD Unavailable Willis Veras MD Primary Care Provider Elizabeth Garcia MD Unavailable [phone] Reason for Referral * Evaluate & Treat (Routine) - Open Specialty Diagnoses / Procedures Referred By Americo peters Referred To Contact Surgery Diagnoses Adenomatous polyp of colon, unspecified part of colon Marlena Mccoy APRN-CNP [address] [place] [address] 3FL [place] [address] [facility] 1201 [place] [address] Referral ID Status Reason Start Date Expiration Date V isits Requested Visits Authorized [id number] Open Specialty Services Required 10/27/2023 10/26/2024 1 1 Encounter Details Date Type Department Care Team (Late st Contact Info) Description 10/27/2023 Orders Only [facility] - GI 1225 [facility], [place] [phone] Marlena Mccoy APRN-CNP [address] [place] [address] 3FL [place] [address] Adenomatous polyp of colon, unspecified part of [...] st Contact Info) Description 06/02/2024 10:30 AM MEDICAL ASSOCIATE Office Visit [facility] - [facility]opedic Surgery [facility] [place] [address] [place] [address] [place] [address] 280 [place] [address] 08/10/2024 1:00 PM CDT Office Visit [facility] - SLOT FLOOR ATTENDANT 1031 [facility] [address] [place] [address] Daja Mir MD 5929 [facility] [place] [address] 10/26/2024 1:00 PM CDT Office Visit [facility] - Hematology/Oncology 3652 [place] [address] Elizabeth Garcia MD 3661 [facility] 3 [place] [address] 01/17/2025 12:30 PM CDT Procedure [facility] [place] [address] [place] [address], [place] [address] 01/17/2025 1:00 PM CDT Office Visit [facility] - GI [address] [place] [phone] Marlena Mccoy, MASTIC SPRAYER-CONSUMER LOAN UNDERWRITER [address] [place] [address] [facility] [place] [address] Scheduled Referrals Name Type Priority Associated Diagnoses Order Schedule Ref to GI Gastroenterology - [facility] Outpatient Referral Routine Adenomatous polyp of colon, unspecified part of colon 1 Occurrences starting 10/27/2023 until 10/26/2024 documented as of this encounter Goals Goal Patient Goal Type Associated Problems Recent Progress Patient-Stated? Author Mobility General On track( 021 9:08 AM MEDICAL ASSOCIATE) No Tika Pope, RN Note: Expected end [...] Primary documented in this encounter Care Teams Photographic Technician Relationship Specialty Start Date End Date Willis Veras MD 6616 [place] [address] PCP - General 05/03/21 Cole Ku MD [address] [place] [address] General Surgery 11/10/20 Elizabeth Garcia MD [address] [address] Hematology and Oncology 10/21/23 documented as of this encounter
--- OUTSIDE RECORDS SUMMARY | 2024-04-25 13:54 | XMS_ITS | Encounter Summary ---
Author Organization [facility] Address [address] [facility] [place] [address] Care Team Providers Care Verification Engineer Name Role Phone Cole Ku MD Unavailable Willis Veras MD Primary Care Provider Reason for Referral * Radiology Services (Routine) - Closed Specialty Diagnoses / Procedures Referred By Contac t Referred To Contact Hematology-Oncology Diagnoses History of breast cancer Malignant neoplasm of upper-inner quadrant of left breast in female, estrogen receptor positive (HCC) Procedures MAMMO LEFT DIAGNOSTIC W Araseli Hale MD 0174 [place] [address] Referral ID Status Reason Start Date Expiration Date Visits Re quested Visits Authorized [id number] Closed 11/06/2022 11/06/2023 1 1 STERED NURSE MATERNITY Reason for Visit * Radiology Services (Routine) - Closed Specialty Diagnoses / Procedures Referred By Contac t Referred To Contact Hematology-Oncology Diagnoses History of breast cancer Malignant neoplasm of upper-inner quadrant of left breast in female, estrogen receptor positive (HCC) Procedures MAMMO LEFT DIAGNOSTIC W Araseli Hale MD [address] [place] [address] Referral ID Status Reason Start Date Expiration Date Visits Re quested Visits Authorized [id number] Closed 11/06/2022 11/06/2023 1 1 Encounter Details Date Type Department Care Team (Latest Contact Info) Description 04/22/2023 1:00 PM REGISTERED NURSE MATERNITY - 04/22/2023 11:59 PM [facility] Hospital Encounter [facility] 3655 [place] [address] Araseli Byers MD 3654 [place] [address] Discharge Disposition: Home or Self Care Social [...] tablet by mouth once daily 08/06/2022 losartan - hydroCHLOROthiazide (Hyzaar) 50-12.5 MG tablet Take 1 (one) tablet by mouth once daily [place]-3 Fatty Acids (fish oil) 1000 MG capsule Take by mouth once daily Vitamin D3, cholecalciferol, 50 MCG (2000 UT) tabletIndications:Vitamin D deficiency, unspecified Take 1 tablet by mouth once daily 90 tablet 2 03/23/2019 celecoxib (CeleBREX) 50 MG capsuleIndications:S/P TKR (total knee replacement), left,Primary osteoarthritis of left knee Take 2 (two) capsules by mouth once daily 60 capsule 1 01/15/2023 05/13/2023 documented as of this encounter Plan of Treatment Upcoming Encounters Date Type Department Care Team (Late st Contact Info) Description 06/02/2024 10:30 AM REGISTERED NURSE MATERNITY [facility] - Orthopedic Surgery 1031 [place] [address] Kevin Britton MD 1031 [facility] 280 [place] [address] 08/10/2024 1:00 PM CDT Office Visit [facility] - MAINTENANCE SUPERVISOR 2ND SHIFT 1031 [facility] 400 [place] [phone] Daja Mir MD 6821 [facility]'s [facility] [place] [address] 10/26/2024 1:00 PM CDT Office Visit [facility] - Hematology/Oncology 5234 [place] [phone] Elizabeth Garcia MD 6231 [facility] 3 [place] [address] 01/17/2025 12:30 PM CDT Procedure visit [facility] - GI 1225 [place] [phone] 01/17/2025 1:00 PM CDT Office Visit [facility] - GI 1225 [facility], [place] [address] Marlena Mccoy, FOOD SERVICE CLERK-SEMICONDUCTOR BONDER 12[address] [facility] 3[facility] [place] [address] documented as of this encounter Goals Goal Patient Goal Type Associated Problems Recent Progress Patient-Stated? Author Mobility General On track( 021 9:08 AM REGISTERED NURSE MATERNITY) No Tika Pope, RN Note: Expected end [...] Name Priority Date/Time Associated Diagnosis Comments MAMMO LEFT DIAGNOSTIC W [place] Routine 04/22/2023 1:27 PM REGISTERED NURSE MATERNITY History of breast cancer Malignant neoplasm of upper-inner quadrant of left breast in female, estrogen receptor positive (HCC) documented in this encounter Results * (ABNORMAL) MAMMO LEFT DIAGNOSTIC W [place] (04/22/2023 1:27 PM REGISTERED NURSE MATERNITY) Anatomical Region Laterality Modality Breast Left Mammography 04/22/2023 2:38 PM REGISTERED NURSE MATERNITY Impressions 04/22/2023 3:07 PM REGISTERED NURSE MATERNITY : Overall stable grouped microcalcifications associated with [...] assisted in the interpretation of this examination IPeg DO have personally reviewed and interpreted this examination/study. > Interpreting Provider: Peg Kilgore DO on 04/22/2023 3:07 PM Narrative 04/22/2023 3:07 PM REGISTERED NURSE MATERNITY EXAMINATION: DIGITAL MAMMO LEFT DIAGNOSTIC W [place] WITH TOMOSYNTHESIS AND WITH CAD LOCATION: [facility] EXAM DATE: ??04/22/2023 HISTORY: 57-year-old female [...] architectural distortion. Araseli Byers MD MAMMO ORDERABLES documented in this encounter Visit Diagnoses Diagnosis History of breast cancer Personal history of malignant neoplasm of breast Malignant neoplasm of upper-inner quadrant of left breast in female, estrogen receptor positive (HCC) documented in this encounter Care Teams Verification Engineer Relationship Specialty Start Date End Date Willis Veras MD [address] [place] [phone] PCP - General 05/03/21 Cole Ku MD [address] OF [facility] [place] [address] General Surgery 11/10/20 documented as of this encounter
--- OUTSIDE RECORDS SUMMARY | 2024-04-25 13:54 | XMS_ITS | Encounter Summary ---
Author Organization [facility] Address [address] [facility] [place] [address] Care Team Providers Care Slip Presser Name Role Phone Cole Ku MD Unavailable Willis Veras MD Primary Care Provider Encounter Details Date Type Department Care Team (Latest Contact Info) Description 03/12/2023 Travel Social History Tobacco Use Types Packs/Day [...] st Contact Info) Description 06/02/2024 10:30 AM FARMWORKER MACHINE Office Visit [facility] - Orthopedic Surgery 1031 [place] [address] Kevin Britton MD [address] [facility] 280 [place] [address] 08/10/2024 1:00 PM CDT Office Visit [facility] - MANAGER BUSINESS INFORMATION 1031 [facility] 400 [place] [phone] Daja Mir MD 5701 [facility] [place] [address] 10/26/2024 1:00 PM CDT Office Visit [facility] - Hematology/Oncology 3655 [place] [phone] Elizabeth Garcia MD 3665 [facility] 3 [place] [address] 01/17/2025 12:30 PM CDT Procedure visit [facility] - GI 1225 [place] [address] 01/17/2025 1:00 PM CDT Office Visit [facility] - GI [facility]5 [place] [phone] Marlena Mccoy, MOLDED GOODS CONTROLS OPERATOR-SENIOR BRAND MANAGER [address] [place] [address] [facility] [place] [address] documented as of this encounter Goals Goal Patient Goal Type Associated Problems Recent Progress Patient-Stated? Author Mobility General On track( 021 9:08 AM FARMWORKER MACHINE) No Tika Pope, SABRINA Note: Expected end [...] on filedocumented in this encounter Care Teams Slip Presser Relationship Specialty Start Date End Date Willis Veras MD 6616 [place] [address] PCP - General 05/03/21 Cole Ku MD [address] [phone] General Surgery 11/10/20 documented as of this encounter
--- OUTSIDE RECORDS SUMMARY | 2024-04-25 13:54 | XMS_ITS | Encounter Summary ---
Author Organization [facility] Address [address] [place] [address] Care Team Providers Care Hospital Television Rental Clerk Name Role Phone Cole Ku MD Unavailable Willis Veras MD Primary Care Provider Encounter Details Date Type Department Care Team (Latest Contact Info) Description 04/22/2023 Travel Social History Tobacco Use Types Packs/Day [...] st Contact Info) Description 06/02/2024 10:30 AM ROLLS BAKER Office Visit [facility] - Orthopedic Surgery 1031 [place] [phone] Kevin Britton MD 1031 [facility] 280 [place] [address] 08/10/2024 1:00 PM CDT Office Visit [facility] - SUPERINTENDENT OF GENERATION 1031 [facility] 400 [place] [address] Daja Mir MD 5701 [facility] [place] [address] 10/26/2024 1:00 PM CDT Office Visit [facility] - Hematology/Oncology 3655 [place] [address] Elizabeth Garcia MD 36[address] [facility] 3 [place] [address] 01/17/2025 12:30 PM CDT Procedure visit [facility] - GI 1225 [place] [phone] 01/17/2025 1:00 PM CDT Office Visit [facility] - GI [facility]5 [place] [phone] Marlena Mccoy, ESTATE PLANNING COUNSELOR-SUPERVISOR [employer] [place] [address] [place] [address] [facility] [place] [address] documented as of this encounter Goals Goal Patient Goal Type Associated Problems Recent Progress Patient-Stated? Author Mobility General On track( 021 9:08 AM ROLLS BAKER) No Tika Pope, SABRINA Note: Expected end [...] on filedocumented in this encounter Care Teams Hospital Television Rental Clerk Relationship Specialty Start Date End Date Willis Veras MD 6616 [place] [address] PCP - General 05/03/21 Cole Ku MD [address] [phone] General Surgery 11/10/20 documented as of this encounter
--- OUTSIDE RECORDS SUMMARY | 2024-04-25 13:54 | XMS_ITS | Encounter Summary ---
Author Organization [facility] Address [address] [facility] [place] [address] Care Team Providers Care Shield Cleaner Name Role Phone Cole Ku MD Unavailable Willis Veras MD Primary Care Provider Reason for Referral * PT/OT/ST (Routine) - Open Specialty Diagnoses / Procedures Referred By Contac t Referred To Contact Diagnoses S/P TKR (total knee replacement), left Plantar fasciitis of left foot Kevin Britton MD [address] [place] [address] Referral ID Status Reason Start Date Expiration Date V isits Requested Visits Authorized [id number] Open Specialty Services Required 06/04/2023 06/03/2024 20 20 SAW OPERATOR HELPER Reason for Visit * Reason Comments Follow-up Follow up left knee Encounter Details Date Type Department Care Team (Late st Contact Info) Description 06/04/2023 10:00 AM BUZZSAW OPERATOR HELPER Office Visit [facility] - Orthopedic Surgery [address] [place] [phone] Kevin Britton MD [address] [place] [address] S/P TKR (total knee replacement), left (Primary Dx); Plantar fasciitis of left foot Social History Tobacco Use Types Packs/Day Years [...] this encounter Patient Instructions * Patient Instructions* Danay Harrell RN - 06/03/2023 1:18 PM BUZZSAW OPERATOR HELPER Danay Harrell SECONDARY SET UP MAN Total Joint Reconstruction Dept of Orthopedic Surgery [facility] Brndstr Messaging - Dr. Kevin Britton Email: [email or web address] SAW OPERATOR HELPER documented in this encounter Progress Notes * Kevin Britton MD - 06/04/2023 10:00 AM CST Patient returns for follow-up of left total knee arthroplasty 16 months ago. Overall patient is doing well. Denies fevers chills or wound problems. Denies mechanical symptoms. Has been doing home physical therapy exercises. Her main complaint is some heel pain which is helped by the Celebrex. She has never done any therapy for this. Current Outpatient Medications on File Prior to Visit Medication Sig Dispense Refill ??? calcium 600 [...] (one) tablet by mouth once daily ??? [place]-3 Fatty Acids (fish oil) 1000 MG capsule Take by mouth once daily ??? Vitamin D3, cholecalciferol, 50 MCG (2000 UT) tablet Take 1 tablet by mouth once daily 90 tablet 2 No current facility-administered medications on file prior to visit. Past Medical History: Diagnosis Date ??? Arthropathy ??? Breast cancer (CMS-HCC) ??? CKD (chronic kidney disease) blood work every 6 months to monitor, no dialysis ??? Delayed emergence from anesthesia ??? Depression with anxiety ??? Disorder of liver NAFLD, bloodwork checked every 6 months, ok to take tylenol ??? Gallstones ??? Hypertension required meds when getting radiation for breast CA. No longer requiring meds ??? Malignancy (CMS-HCC) breast left ??? Valvular heart disease heart [...] Left 02/01/2022 Left; TOTAL KNEE ARTHROPLASTY Social History Occupational History ??? Not on file Tobacco Use ??? Smoking status: Never ??? Smokeless tobacco: Never Vaping Use ??? Vaping Use: Never used Substance and Sexual Activity ??? Alcohol use: Yes Comment: ocassional weekends ??? Drug use: Never ??? Sexual activity: Not on file Family History Problem Relation Name Age of Onset ??? Cancer - Lung Mother ??? Cancer - Breast Sister ??? Cancer - Prostate Brother Review of Systems Constitutional: Negative for chills, fever, malaise/fatigue and weight loss. Respiratory: Negative for shortness of breath. Cardiovascular: Negative for claudication and leg swelling. Musculoskeletal: Negative for falls and joint pain. Skin: Negative for itching and rash. Neurological: Negative for focal weakness. All other systems reviewed and are negative. Physical exam: Pt is awake and alert BMI is 33 Facial expressions are appropriate Pt is cooperative with exam Examination of the left knee reveals a well-healed scar without signs of infection. left knee has full extension with no extension lag and the patient can flex past 110 degrees. left knee is stable to varus valgus and anterior posterior stresses. She has some tenderness over the medial calcaneus onthe plantar aspect X-rays: X-rays were reviewed and my independent interpretation/assessment of the 4 views of the left knee reveals a well aligned left knee arthroplasty without apparent complication Assessment: Status post left total knee arthroplasty doing well with some plantar fasciitis Plan: We will provide patient with a prescription for outpatient physical therapy for plantar fasciitis and we will get her Dr. Russ's card if she is not improving for possible injection. We will see the patient back in 3-5 years. Continue range of motion and strengthening exercises which we discussed and had the patient demonstrate in the clinic today. We discussed antibiotic prophylaxis beforeinvasive procedures. Patient understood the treatment plan and all questions were answered. SAW OPERATOR HELPER documented in this encounter Plan of Treatment Upcoming Encounters Date Type Department Care Team (Late st Contact Info) Description 06/02/2024 10:30 AM BUZZSAW OPERATOR HELPER Office Visit [facility] - Orthopedic Surgery [facility] [place] [phone] Kevin Britton MD 1031 [facility] 280 [place] [address] 08/10/2024 1:00 PM CDT Office Visit [facility] - WOOD ROUTER 1031 [facility] 400 [place] [phone] Daja Mir MD 5709 [facility] [place] [address] 10/26/2024 1:00 PM CDT Office Visit [facility] - Hematology/Oncology 3655 [place] [address] Elizabeth Garcia MD 3665 [facility] 3 [place] [address] 01/17/2025 12:30 PM CDT Procedure visit [facility] [place] [address] [place] [phone] 01/17/2025 1:00 PM CDT Office Visit [facility] [place] [address] [place] [phone] Marlena Mccoy, INSULATION CUTTER AND FORMER-ADVERTISING ANALYST [address] [place] [address] [facility] [place] [address] Scheduled Referrals Name Type Priority Associated Diagnoses Order Schedule AMB REFERRAL TO PHYSICAL THERAPY Outpatient Referral Routine S/P TKR (total knee replacement), left Plantar fasciitis of left foot 1 Occurrences starting 06/04/2023 until 06/04/2024 documented as of this encounter Goals Goal Patient Goal Type Associated Problems Recent Progress Patient-Stated? Author Mobility General On track( 021 9:08 AM BUZZSAW OPERATOR HELPER) No Tika Pope, RN Note: Expected end [...] Diagnoses Diagnosis S/P TKR (total knee replacement), left- Primary Plantar fasciitis of left foot Plantar fascial fibromatosis documented in this encounter Care Teams Shield Cleaner Relationship Specialty Start Date End Date Willis Veras MD 6616 [place] [address] PCP - General 05/03/21 Cole Ku MD [address] [place] [address] General Surgery 11/10/20 documented as of this encounter
--- OUTSIDE RECORDS SUMMARY | 2024-04-25 13:54 | XMS_ITS | Encounter Summary ---
Author Organization [facility] Address [address] [facility] [place] [address] Care Team Providers Care Corporate Development Associate Name Role Phone Cole Ku MD Unavailable Willis Vreas MD Primary Care Provider Reason for Visit * Reason Comments Post-Op Encounter Details Date Type Department Care Team (Late st Contact Info) Description 04/09/2023 11:30 AM VP TREASURER Office Visit [facility] - STREET RAILWAY LINE INSTALLER 10[address] [facility] [address] [place] [address] Chay Major MD [address] [facility] [address] [place] [address] Complex endometrial hyperplasia with atypia (Primary Dx) Social History Tobacco Use Types [...] Sign Reading Time Taken Comments Blood Pressure 134/82 04/09/2023 11:27 AM VP TREASURER Pulse - - Temperature - - Respiratory Rate - - Oxygen Saturation - - Inhaled Oxygen Concentration - - Weight 95.3 kg (210 lb) 04/09/2023 11:27 AM VP TREASURER Height 170.2 cm (5' 7 ) 04/09/2023 11:27 AM VP TREASURER Body Mass Index 32.89 04/09/2023 11:27 AM VP TREASURER documented in this encounter Functional Status Functional [...] as of this encounter Progress Notes * Chay Major MD - 04/09/2023 11:30 AM CST NEW AUTOS DELIVERY DRIVER-Oncology Post-Op Visit Subjective HPI: Milagros Torres is a 57 year old female s/p robotic-assisted total laparoscopic hysterectomy and bilateral salpingo-oophorectomy on 02/27/2023 for 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 Final pathology was benign with no residual hyperplasia. She reports that she is feeling well. She reports she is tolerating diet and activity. Bladder and bowels WNL. Objective Vitals: 04/09/23 1127 BP: 134/82 Weight: 95.3 kg (210 lb) Height: 1.702 m (5' 7 ) Estimated body mass index is 32.89 kg/m?? as calculated from the following: Height as of this encounter: 1.702 m (5' 7 ). Weight as of this encounter: 95.3 kg (210 lb). Physical Exam: Lungs: CTA bilaterally Cardiac: RRR, Nl S1 and S2, no murmurs Abdominal: Incisions are clean, dry, intact and no erythema ,no s/s of infection Extremities: No C/C/E, no Cornelius's Pelvic Exam: Vaginal cuff well-healed and smooth Results: Pathology: (02/27/2023) Final Diagnosis ?? Uterus, hysterectomy (including FSA1) - Benign predominantly basalis endometrium with focal areas of stromal decidualization/hormone effect - Adenomyosis - Leiomyomata - Cervical parakeratosis ?? Ovaries and Fallopian tubes, bilateral, salpingo-oophorectomy - No histopathologic abnormality Assessment/Plan 1. 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 She is to follow up with one of our PMDs for continued surveillance And I have referred her as such. TREASURER documented in this encounter Plan of Treatment Upcoming Encounters Date Type Department Care Team (Late st Contact Info) Description 06/02/2024 10:30 AM VP TREASURER Office Visit [facility] - Orthopedic Surgery 1031 [place] [phone] Kevin Britton MD 1031 [facility] 280 [place] [address] 08/10/2024 1:00 PM CDT Office Visit [facility] - STREET RAILWAY LINE INSTALLER 1031 [facility] 400 [place] [address] Daja Mir MD 5700 [place] [address] 10/26/2024 1:00 PM CDT Office Visit [facility] - Hematology/Oncology 3655 [place] [address] Elizabeth Garcia MD [address] [facility] [place] 3 [place] [address] 01/17/2025 12:30 PM CDT Procedure visit [facility] - GI [address] [place] [address], [place] [phone] 01/17/2025 1:00 PM CDT Office Visit [facility] - GI [address] [place] [address], [place] [phone] Marlena Mccoy, SHAMPOO PERSON-INSTALLATION TECHNICIAN [address] [place] [address] [address] DIV OF GASTROENTEROLOGY [place], [place] [id number] documented as of this encounter Goals Goal Patient Goal Type Associated Problems Recent Progress Patient-Stated? Author Mobility General On track( 021 9:08 AM VP TREASURER) No Tika Pope, RN Note: Expected end [...] as of this encounter Visit Diagnoses Diagnosis Complex endometrial hyperplasia with atypia- Primary Endometrial hyperplasia with atypia documented in this encounter Care Teams Corporate Development Associate Relationship Specialty Start Date End Date Willis Veras MD 6616 [place] [address] PCP - General 05/03/21 Cole Ku MD [address] [place] [address] 2L [place] [phone] General Surgery 11/10/20 documented as of this encounter
--- OUTSIDE RECORDS SUMMARY | 2024-04-25 13:54 | XMS_ITS | Encounter Summary ---
Author Organization [facility] Address [address] [place] [address] Care Team Providers Care Auto Body Technician Name Role Phone Cole Ku MD Unavailable Willis Veras MD Primary Care Provider Encounter Details Date Type Department Care Team (Latest Contact Info) Description 04/09/2023 Travel Social History Tobacco Use Types Packs/Day [...] st Contact Info) Description 06/02/2024 10:30 AM SPORTS PSYCHOLOGIST Office Visit [facility] - Orthopedic Surgery 1031 [place] [phone] Kevin Britton MD 1031 [facility] 280 [place] [address] 08/10/2024 1:00 PM CDT Office Visit [facility] - VACUUM FORMING MACHINE OPERATOR 1031 [facility] 400 [place] [phone] Daja Mir MD 5701 [place] [address] 10/26/2024 1:00 PM CDT Office Visit [facility] - Hematology/Oncology 3655 [place] [phone] Elizabeth Garcia MD 3665 [facility] 3 [place] [address] 01/17/2025 12:30 PM CDT Procedure visit [facility] - GI 1225 [place] [address] 01/17/2025 1:00 PM CDT Office Visit [facility] - [facility]5 [place] [phone] Marlena Mccoy, USER SUPPORT SPECIALIST-EMERGENCY SERVICES PROFESSIONAL [address] [place] [address] 3[facility] [place] [address] documented as of this encounter Goals Goal Patient Goal Type Associated Problems Recent Progress Patient-Stated? Author Mobility General On track( 021 9:08 AM SPORTS PSYCHOLOGIST) No Tika Pope, SABRINA Note: Expected end [...] on filedocumented in this encounter Care Teams Auto Body Technician Relationship Specialty Start Date End Date Willis Veras MD 6616 [place] [address] PCP - General 05/03/21 Cole Ku MD [address] [phone] General Surgery 11/10/20 documented as of this encounter
--- OUTSIDE RECORDS SUMMARY | 2024-04-25 13:54 | XMS_ITS | Encounter Summary ---
Author Organization [facility] Address [address] [facility] [place] [address] Care Team Providers Care Manufacturing Project Engineer Name Role Phone Cole Ku MD Unavailable Willis Veras MD Primary Care Provider Reason for Visit * Reason Onset Date Comments MEDICATION REFILL 07/09/2023 Encounter Details Date Type Department Care Team (Late st Contact Info) Description 07/09/2023 Refill [facility] - Orthopedic Surgery [facility] [place] [address] Danay Harrell, INTERNAL AUDIT MANAGER REFILL Social History Tobacco Use Types Packs/Day [...] st Contact Info) Description 06/02/2024 10:30 AM TREE LOADER MEAT Office Visit [facility] - Orthopedic Surgery 1031 [place] [phone] Kevin Britton MD 1031 [facility] 280 [place] [address] 08/10/2024 1:00 PM CDT Office Visit [facility] - CALCULATING MACHINE OPERATOR 1031 [facility] 400 [place] [address] Daja Mir MD 5709 [facility] [place] [address] 10/26/2024 1:00 PM CDT Office Visit [facility] - Hematology/Oncology 9515 [place] [phone] Elizabeth Garcia MD 3664 [facility] 3 [place] [address] 01/17/2025 12:30 PM CDT Procedure [place] [facility] [place] [address] [place] [address] 01/17/2025 1:00 PM CDT Office Visit [facility] - GI [address] [place] [address], [place] [address] Darius Marlena Pedro, ROOMING HOUSE INSPECTOR-ALTERNATIVE EDUCATION TEACHER [address] [facility] 3FL [place] [address] documented as of this encounter Goals Goal Patient Goal Type Associated Problems Recent Progress Patient-Stated? Author Mobility General On track( 021 9:08 AM TREE LOADER MEAT) No Tika Pope, RN Note: Expected end [...] leg documented in this encounter Care Teams Manufacturing Project Engineer Relationship Specialty Start Date End Date Willis Veras MD 6616 [place] [address] PCP - General 05/03/21 Cole Ku MD 1225 [facility] 2L [place] [address] General Surgery 11/10/20 documented as of this encounter
--- OUTSIDE RECORDS SUMMARY | 2024-04-25 13:54 | XMS_ITS | Encounter Summary ---
Author Organization [facility] Address [address] [facility] [place] [address] Care Team Providers Care Hogshead Stock Clerk Name Role Phone Cole Ku MD Unavailable Willis Veras MD Primary Care Provider Encounter Details Date Type Department Care Team (Latest Contact Info) Description 06/04/2023 9:47 AM CHECKER LOADER - 06/04/2023 11:59 PM [facility] Hospital Encounter [facility] - Orthopedics [address] [place] [place] [address] Kevin Britton MD [address] [place], [place] [phone] Discharge Disposition: Home or Self Care Social [...] 1 (one) tablet by mouth once daily [place]-3 Fatty Acids (fish oil) 1000 MG capsule Take by mouth once daily Vitamin D3, cholecalciferol, 50 MCG (1999 UT) tabletIndications:Vitamin D deficiency, unspecified Take 1 tablet by mouth once daily 90 tablet 2 03/23/2019 celecoxib (CeleBREX) 50 MG capsuleIndications:S/P TKR (total knee replacement), left,Primary osteoarthritis of left knee Take 2 (two) capsules by mouth once daily 60 capsule 1 05/13/2023 07/09/2023 documented as of this encounter Plan of Treatment Upcoming Encounters Date Type Department Care Team (Late st Contact Info) Description 06/02/2024 10:30 AM CHECKER LOADER Office Visit [facility] - Orthopedic Surgery 1031 [place] [address] Kevin Britton MD [address] [address] 08/10/2024 1:00 PM CDT Office Visit [facility] Group - FILING WRITER [address] [facility] [address] [place] [address] Daja Mir MD 5379 [facility] [place] [address] 10/26/2024 1:00 PM CDT Office Visit [facility] Group - Hematology/Oncology 3655 [place] [address] Elizabeth Garcia MD [address] [facility] 3 [place] [address] 01/17/2025 12:30 PM CDT Procedure visit [facility] [place] [address] [place] [address], [place] [phone] 01/17/2025 1:00 PM CDT Office Visit [facility] [place] [address] [place] [address], [facility] [place] [phone] Marlena Mccoy, GENERAL SUPERVISOR-STROBOSCOPE OPERATOR [address] [place] [address] [facility] [place] [address] documented as of this encounter Goals Goal Patient Goal Type Associated Problems Recent Progress Patient-Stated? Author Mobility General On track( 021 9:08 AM CHECKER LOADER) No Tika Pope, SABRINA Note: Expected end [...] Name Priority Date/Time Associated Diagnosis Comments XR KNEE LEFT 4VW OR MORE Routine 06/04/2023 9:53 AM CHECKER LOADER History of total left knee replacement documented in this encounter Results * XR KNEE LEFT 4VW OR MORE (06/04/2023 9:53 AM CHECKER LOADER) Anatomical Region Laterality Modality Lower Extremity Radiographic Alena ging 06/04/2023 10:2 0 AM CHECKER LOADER Narrative 06/04/2023 10:21 AM CHECKER LOADER Procedure: XR KNEE LEFT 4VW OR MORE ??Exam Date: ??06/04/2023 9:53 AM ?? Location: ??[facility] Indication: Z96.652: Presence of left artificial knee [...] MORE Exam Date: 06/04/2023 9:53 AM Location: [facility] Indication: Z96.652: Presence of left artificial knee joint Findings/impression: The study is compared to the exam from June 2022. Total knee replacement is again noted. Fracture or loosening. There is no joint effusion. There is no acute bony abnormality. > Interpreting Provider: Julien Wlider MD on 06/04/2023 10:21 AM Kevin Britton MD DIAGNOSTIC IMAGING ORDERABLES documented in this encounter Visit Diagnoses Diagnosis History of total left knee replacement documented in this encounter Care Teams Hogshead Stock Clerk Relationship Specialty Start Date End Date Willis Veras MD [address]16 [place] [address] PCP - General 05/03/21 Cole Ku MD 1225 [address] [facility] 2L [facility] [place] [address] General Surgery 11/10/20 documented as of this encounter
--- OUTSIDE RECORDS SUMMARY | 2024-04-25 13:54 | XMS_ITS | Encounter Summary ---
Author Organization [facility] Address [address] [facility] [place] [address] Care Team Providers Care Local Company Truck Driver Name Role Phone Cole Ku MD Unavailable Willis Veras MD Primary Care Provider Reason for Visit * Reason Comments Post-Op Encounter Details Date Type Department Care Team (Late st Contact Info) Description 03/12/2023 11:30 AM AIR QUALITY CHEMIST Office Visit [facility] - WHEELAGE CLERK 1031 [facility] [address] [place] [address] Chay Major MD 1031 [facility] [address] [place] [address] Complex endometrial hyperplasia with atypia (Primary Dx); S/P total hysterectomy and BSO (bilateral salpingo-oophorectomy ) Social History Tobacco Use Types Packs/Day Years [...] Sign Reading Time Taken Comments Blood Pressure 126/86 03/12/2023 11:03 AM AIR QUALITY CHEMIST Pulse - - Temperature - - Respiratory Rate - - Oxygen Saturation - - Inhaled Oxygen Concentration - - Weight 92.5 kg (204 lb) 03/12/2023 11:03 AM AIR QUALITY CHEMIST Height 170.2 cm (5' 7 ) 03/12/2023 11:03 AM AIR QUALITY CHEMIST Body Mass Index 31.95 03/12/2023 11:03 AM AIR QUALITY CHEMIST documented in this encounter Functional Status Functional [...] as of this encounter Progress Notes * Stephanie Eldridge, ADVERTISING EDITOR-SUBSTANCE ABUSE THERAPIST - 03/12/2023 11:30 AM CST LOCOMOTIVE FIRER-Oncology Post-Op Visit Subjective HPI: Milagros Torres is a 57 year old female s/p robotic-assisted total laparoscopic hysterectomy and bilateral salpingo-oophorectomy and injection of indocyanine green on 02/27/2023 for 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 Final pathology was benign. She reports that she is feeling well. She reports she is tolerating diet and activity. Bladder and bowels WNL. Objective Vitals: 03/12/23 1103 BP: 126/86 Weight: 92.5 kg (204 lb) Height: 1.702 m (5' 7 ) Estimated body mass index is 31.95 kg/m?? as calculated from the following: Height as of this encounter: 1.702 m (5' 7 ). Weight as of this encounter: 92.5 kg (204 lb). Physical Exam: Lungs: CTA bilaterally Cardiac: RRR, Nl S1 and S2, no murmurs. Abdominal: Incisions are clean, dry and intact ,no s/s of infection Extremities: No C/C/E, no Cornelius's Pelvic Exam: Deferred Results: Pathology: (02/27/2023) Final Diagnosis ?? Uterus, hysterectomy (including FSA1) - Benign predominantly basalis endometrium with focal areas of stromal decidualization/hormone effect - Adenomyosis - Leiomyomata - Cervical parakeratosis ?? Ovaries and Fallopian tubes, bilateral, salpingo-oophorectomy - No histopathologic abnormality Assessment/Plan 1. Persistent complex atypical hyperplasia/endometrial intraepithelial neoplasia status post IUD and medical management, which has failed s/p robotic-assisted total laparoscopic hysterectomy and bilateral salpingo-oophorectomy: Normal 2 week post-operative course. The patient can increase her activity as tolerated but is to remain on pelvic rest and lifting instructions till next visit. RTO in 4 weeks QUALITY CHEMIST documented in this encounter Plan of Treatment Upcoming Encounters Date Type Department Care Team (Late st Contact Info) Description 06/02/2024 10:30 AM AIR QUALITY CHEMIST Office Visit [facility] - Orthopedic Surgery [facility]1 [place] [address] Kevin Britton MD 1031 [facility] 280 [place] [address] 08/10/2024 1:00 PM CDT Office Visit [facility] - WHEELAGE CLERK [address] [place] [address] 400 [place] [address] Daja Mir MD 5705 [facility] [address] 10/26/2024 1:00 PM CDT Office Visit [facility] - Hematology/Oncology 5279 [place] [address] Elizabeth Garcia MD [address] [place] [address] 01/17/2025 12:30 PM CDT Procedure visit [facility] - GI 1225 [facility], [place] [address] 01/17/2025 1:00 PM CDT Office Visit [facility] [place] [address] [place] [address], [place] [address] Marlena Mccoy, ADVERTISING EDITOR-SUBSTANCE ABUSE THERAPIST [address] [place] [address] [facility] [place] [address] documented as of this encounter Goals Goal Patient Goal Type Associated Problems Recent Progress Patient-Stated? Author Mobility General On track( 021 9:08 AM AIR QUALITY CHEMIST) No Tika Pope, RN Note: Expected end [...] with atypia- Primary Endometrial hyperplasia with atypia S/P total hysterectomy and BSO (bilateral salpingo-oophorectomy) Acquired absence of both cervix and uterus documented in this encounter Care Teams Local Company Truck Driver Relationship Specialty Start Date End Date Willis Veras MD [address] [place] [address] PCP - General 05/03/21 Cole Ku MD [address] OF [facility] [place] [address] General Surgery 11/10/20 documented as of this encounter
--- OUTSIDE RECORDS SUMMARY | 2024-04-25 13:54 | XMS_ITS | Encounter Summary ---
Author Organization [facility] Address [address] [facility] [place] [address] Care Team Providers Care Boom Conveyor Operator Name Role Phone Cole Ku MD Unavailable Willis Veras MD Primary Care Provider Encounter Details Date Type Department Care Team (Latest Contact Info) Description 04/17/2023 Travel Social History Tobacco Use Types Packs/Day [...] Contact Info) Description 06/02/2024 10:30 AM MEDICAL RECORD LIBRARIANS TEACHER Office Visit [facility] - Orthopedic Surgery 1031 [place] [address] Kevin Britton MD 1031 [facility] 280 [place] [address] 08/10/2024 1:00 PM CDT Office Visit [facility] - PATIENT CARE SPECIALIST 1031 [facility] 400 [place] [address] Daja Mir MD 5701 [place] [address] 10/26/2024 1:00 PM CDT Office Visit [facility] - Hematology/Oncology 3655 [place] [address] Elizabeth Garcia MD 3665 [facility] 3 [place] [address] 01/17/2025 12:30 PM CDT Procedure visit [facility] - GI 1225 [place] [phone] 01/17/2025 1:00 PM CDT Office Visit [facility] - GI [facility]5 [place] [phone] Marlena Mccoy, RESEARCH DIETITIAN-AGRICULTURE PROFESSOR [address] [place] [address] [facility] [place] [address] documented as of this encounter Goals Goal Patient Goal Type Associated Problems Recent Progress Patient-Stated? Author Mobility General On track( 021 9:08 AM MEDICAL RECORD LIBRARIANS TEACHER) No Tika Pope, SABRINA Note: Expected end [...] on filedocumented in this encounter Care Teams Boom Conveyor Operator Relationship Specialty Start Date End Date Willis Veras MD [address]16 [place] [address] PCP - General 05/03/21 Cole Ku MD [address] [phone] General Surgery 11/10/20 documented as of this encounter
--- OUTSIDE RECORDS SUMMARY | 2024-04-25 13:54 | XMS_ITS | Encounter Summary ---
Author Organization [facility] Address [address] [facility] [place] [address] Care Team Providers Care Business Management Analyst Name Role Phone Cole Ku MD Unavailable Willis Veras MD Primary Care Provider Reason for Visit * Reason Onset Date Comments MEDICATION REFILL 05/13/2023 Encounter Details Date Type Department Care Team (Late st Contact Info) Description 05/13/2023 Refill [facility] - Orthopedic Surgery [facility]1 [place] [address] Danay Harrell, LENS GRINDER ROUGH REFILL Social History Tobacco Use Types Packs/Day [...] st Contact Info) Description 06/02/2024 10:30 AM BSA OFFICER Office Visit [facility] - Orthopedic Surgery 1031 [place] [address] Kevin Britton MD 1031 [facility] 280 [place] [address] 08/10/2024 1:00 PM CDT Office Visit [facility] - CANVAS PRODUCTS SALES REPRESENTATIVE 1031 [facility] 400 [place] [address] Daja Mir MD 570 [facility] [place] [address] 10/26/2024 1:00 PM CDT Office Visit [facility] - Hematology/Oncology 7[address] [place] [address] Elizabeth Garcia MD 3667 [facility] 3 [place] [address] 01/17/2025 12:30 PM CDT Procedure [place] [facility] [place] [address] [place] [address] 01/17/2025 1:00 PM CDT Office Visit [facility] - GI [address] [place] [address], [place] [address] Darius Marlena Pedro, STRUCTURES ENGINEER-COMPUTERIZED MILL MILL RECORDER 1225 [facility] 3FL [place] [address] documented as of this encounter Goals Goal Patient Goal Type Associated Problems Recent Progress Patient-Stated? Author Mobility General On track( 021 9:08 AM BSA OFFICER) No Tika Pope, RN Note: Expected [...] leg documented in this encounter Care Teams Business Management Analyst Relationship Specialty Start Date End Date Willis Veras MD [address]16 [place] [address] PCP - General 05/03/21 Cole Ku MD 1225 [facility] 2L [place] [address] General Surgery 11/10/20 documented as of this encounter
--- OUTSIDE RECORDS SUMMARY | 2024-04-25 13:54 | XMS_ITS | Encounter Summary ---
Author Organization [facility] Address [address] [facility] [place] [address] Care Team Providers Care Bradley Linebacker Crewmember Name Role Phone Cole Ku MD Unavailable Willis Veras MD Primary Care Provider Encounter Details Date Type Department Care Team (Late st Contact Info) Description 05/28/2023 Orders Only [facility] - Orthopedic Surgery 1031 [place] [address] Kevin Britton MD 1031 [facility] 280 [place] [address] History of total left knee replacement Social History Tobacco Use Types Packs/Day Years [...] st Contact Info) Description 06/02/2024 10:30 AM DIAGNOSTICS SALES DEVELOPER Office Visit [facility] - Orthopedic Surgery 1031 [place] [address] Kevin Britton MD 1031 [facility] 280 [place] [address] 08/10/2024 1:00 PM CDT Office Visit [facility] - SOFTWARE PROJECT LEAD 1031 [facility] 400 [place] [address] Daja Mri MD 0252 [facility] [place] [address] 10/26/2024 1:00 PM CDT Office Visit [facility] - Hematology/Oncology [address] [place] [address] Elizabeth Garcia MD 9503 [facility] 3 [place] [address] 01/17/2025 12:30 PM CDT Procedure visit [facility] - GI 1225 [facility], [place] [address] 01/17/2025 1:00 PM CDT Office Visit [facility] - GI [address] [facility], [place] [address] Marlena Mccoy, BOOKKEEPING ASSISTANT-POSTAL CARRIER [address] [facility] 3F DIV [place] [address] documented as of this encounter Goals Goal Patient Goal Type Associated Problems Recent Progress Patient-Stated? Author Mobility General On track( 021 9:08 AM DIAGNOSTICS SALES DEVELOPER) No Tika Pope, RN Note: Expected end [...] as of this encounter Results * XR KNEE LEFT 4VW OR MORE (06/04/2023 9:53 AM DIAGNOSTICS SALES DEVELOPER) Anatomical Region Laterality Modality Lower Extremity Radiographic Alena ging 06/04/2023 10:2 0 AM DIAGNOSTICS SALES DEVELOPER Narrative 06/04/2023 10:21 AM DIAGNOSTICS SALES DEVELOPER Procedure: XR KNEE LEFT 4VW OR MORE ??Exam Date: ??06/04/2023 9:53 AM ?? Location: ??[facility] Indication: Z96.652: Presence of left artificial knee [...] MORE Exam Date: 06/04/2023 9:53 AM Location: [facility] Indication: Z96.652: Presence of left artificial knee [...] Diagnoses Diagnosis History of total left knee replacement- Primary History of total left knee replacement documented in this encounter Care Teams Bradley Linebacker Crewmember Relationship Specialty Start Date End Date Willis Veras MD [address]16 [place] [address] PCP - General 05/03/21 Cole Ku MD [address] OF [facility] [place] [address] General Surgery 11/10/20 documented as of this encounter
--- OUTSIDE RECORDS SUMMARY | 2024-04-25 13:54 | XMS_ITS | Encounter Summary ---
Author Organization [facility] Address [address] [facility] [place] [address] Care Team Providers Care Harbor Tug Captain Name Role Phone Cole Ku MD Unavailable Willis Veras MD Primary Care Provider Encounter Details Date Type Department Care Team (Latest Contact Info) Description 06/04/2023 Travel Social History Tobacco Use Types Packs/Day [...] st Contact Info) Description 06/02/2024 10:30 AM ARMATURE TESTER Office Visit [facility] - Orthopedic Surgery 1031 [place] [address] Kevin Britton MD 1031 [facility] 280 [place] [address] 08/10/2024 1:00 PM CDT Office Visit [facility] - MEDICAL OFFICE CLERK 1031 [facility] 400 [place] [address] Daja Mir MD 5701 [facility] [place] [address] 10/26/2024 1:00 PM CDT Office Visit [facility] - Hematology/Oncology 3655 [place] [address] Elizabeth Garcia MD 3665 [facility] 3 [place] [address] 01/17/2025 12:30 PM CDT Procedure visit [facility] - GI 1225 [place] [address] 01/17/2025 1:00 PM CDT Office Visit [facility] - GI [facility]5 [place] [address] Marlena Mccoy, RN NEONATAL-SITE CONTROLLER [address] [place] [address] [facility] [place] [address] documented as of this encounter Goals Goal Patient Goal Type Associated Problems Recent Progress Patient-Stated? Author Mobility General On track( 021 9:08 AM ARMATURE TESTER) No Tika Pope, SABRINA Note: Expected end [...] on filedocumented in this encounter Care Teams Harbor Tug Captain Relationship Specialty Start Date End Date Willis Veras MD 6616 [place] [address] PCP - General 05/03/21 Cole Ku MD [address] [phone] General Surgery 11/10/20 documented as of this encounter
--- OUTSIDE RECORDS SUMMARY | 2024-04-25 13:55 | XMS_ITS | Encounter Summary ---
Author Organization [facility] Address [address] [facility] [place] [address] Care Team Providers Care Roof Truss Builder Name Role Phone Cole Ku MD Unavailable Willis Veras MD Primary Care Provider Elizabeth Garcia MD Unavailable [phone] Reason for Visit * Reason Onset Date Comments Question 03/07/2023 Encounter Details Date Type Department Care Team (Late st Contact Info) Description 03/07/2023 Telephone [facility] - TEAM ASSEMBLY LINE MACHINE OPERATOR 1031 Natalya Whatley, [facility] 200 [place] [address] Chay Major MD 1031 [facility] 400 [place] [address] Question Social History Tobacco Use Types Packs/Day Years [...] encounter Miscellaneous Notes * Telephone Encounter - Jyotsna Oliver RN - 03/07/2023 4:10 PM CDT Spoke with pt returning her call about thinking she may have a yeast infection. Pt s/p lap hysterectomy/BSO pm 02/27/23. Pt complains of extreme vaginal itching, burning, and pain but no discharge. Told pt I would consult Dr. Liang, Dr. Major's colleague, and get back to her. * Telephone Encounter - Ananya Hernandez - 03/07/2023 11:01 AM CDT Pt calling stating that she recently got a hysterectomy and now she believes she has a yeast infection. Is there something she can take over the counter Please contact CB# [phone] documented in this encounter Plan of Treatment Upcoming Encounters Date Type Department Care Team (Late st Contact Info) Description 06/02/2024 10:30 AM HEDGE FUND MANAGER Office Visit [facility] - Orthopedic Surgery [address] [place] [address] Kevin Britton MD [address] [place] [address] 08/10/2024 1:00 PM CDT Office Visit [facility] - TEAM ASSEMBLY LINE MACHINE OPERATOR 1031 [facility] [address] [place] [address] Daja Mir MD 5706 [facility] [place] [address] 10/26/2024 1:00 PM CDT Office Visit [facility] - Hematology/Oncology 3655 [place] [address] Elizabeth Garcia MD 3665 [facility] 3 [place] [address] 01/17/2025 12:30 PM CDT Procedure visit [facility] - GI 1225 [facility], [place] [address] 01/17/2025 1:00 PM CDT Office Visit [facility] - GI [address] [place] [address], [facility] [place] [phone] Marlena Mccoy, LEADERSHIP PROGRAM INTERN-C++ PROFESSOR [address] [place] [address] [facility] [place] [address] documented as of this encounter Goals Goal Patient Goal Type Associated Problems Recent Progress Patient-Stated? Author Mobility General On track( 021 9:08 AM HEDGE FUND MANAGER) No Tika Pope, SABRINA Note: Expected [...] on filedocumented in this encounter Care Teams Roof Truss Builder Relationship Specialty Start Date End Date Willis Veras MD 6616 [place] [address] PCP - General 05/03/21 Cole Ku MD [address] OF [facility] [address] General Surgery 11/10/20 Elizabeth Garcia MD [address] [address] Hematology and Oncology 10/21/23 documented as of this encounter
--- OUTSIDE RECORDS SUMMARY | 2024-04-25 13:56 | XMS_ITS | Encounter Summary ---
Author Organization [facility] Address [address] [place] [address] Care Team Providers Care Tdp Displays Analyst Name Role Phone Cole Ku MD Unavailable Willis Veras MD Primary Care Provider Reason for Visit * Auth/Cert (Routine) Specialty Diagnoses / Procedures Referred By Contac t Referred To Contact Diagnoses Diagnosis unknown Diagnosis unknown [R69] Procedures MI POLICY INTERN RQR USE ROBOTIC SURG SYS MI TLH W/T/O 250 G OR LESS MI IO MAP OF SENT LYMPH NODE MI LAP,LYMPH NODE BX MI LAP,PELVIC LYMPHADENECTOMY MI LAP,PELVIC LYMPHADENECTOMY/BX ROBOTIC ASSISTED HYSTERECTOMY TOTAL Referral ID Status Reason Start Date Expiration Date Visits Re quested Visits Authorized [id number] 1 1 Encounter Details Date Type Department Care Team (Latest Contact Info) Description 02/27/2023 9:02 AM CDT - 02/27/2023 5:20 PM CDT Hospital Encounter [facility] [address] [place], [place] [id number] Marti Reardon MD [address] [address] Surgery General Discharge Disposition: Home or Self [...] Sign Reading Time Taken Comments Blood Pressure 133/78 02/27/2023 4:11 PM CDT Pulse 75 02/27/2023 4:11 PM CDT Temperature 36.4 ??C (97.6 ??F) 02/27/2023 2:21 PM CD T Respiratory Rate 16 02/27/2023 4:11 PM CDT Oxygen Saturation 96% 02/27/2023 4:11 PM CDT Inhaled Oxygen Concentration - - Weight 96.2 kg (212 lb) 02/27/2023 9:39 AM CDT Height 170.2 cm (5' 7 ) 02/27/2023 9:39 AM CDT Body Mass Index 33.2 02/27/2023 9:39 AM CDT documented in this encounter Functional [...] No 12/05/2020 documented as of this encounter Discharge Instructions * Discharge Instructions* Edwin Flanagan MD - 02/27/2023 1:29 PM CDT Post-operative Instructions: Total laparoscopic hysterectomy Wound Care Your incisions were closed with stitches under your skin which will dissolve on their own. You havea special surgical glue over your incisions as well. This will start to peel up on its own. When itdoes, you can gently peel it off but do not pick at it before that. You should wash your incisions with a mild soap and let the water run over them. Pat dry. Some mild bruising is ok. Please call the office if you have any redness or drainage from your incisions or if you start running a temperature over 100.4. The top of your vagina (where your cervix used to be) was closed with stitches. It is normal to experience some vaginal spotting after surgery. This may come and go for a week or two or be a little bit heavier if you have a day where you do more walking around than usual. Pain Control You may experience some upper abdominal pain and even shoulder pain in the first day or two after surgery. This is normal and is from the gas used inside your abdomen during surgery. Walk around as much as you can and this will help reabsorb the gas. Try using ibuprofen 600mg every 6 hours as needed or tylenol 1000mg every 6 hours as needed for moderate pain. These are both available over the counter if you did not receive a prescription. Ice applied to your incisions often helps reduce the pain from those. You were likely discharged with a narcotic pain medicine such as oxycodone. Use this for severe pain. It can sometimes make people nauseated so be sure to eat a small amount with it. Restrictions You should not drive until you are off of your narcotic pain medicine. You also should not drive ifyou are having pain that would restrict you from reacting in an emergency such as if you needed to slam on the breaks. For most people it is at least a couple of weeks before they feel up to resume driving. You should not do any heavy lifting over ten pounds for six weeks. This is to reduce the chances ofyou having a hernia in any of your incisions. Walking and climbing stairs is ok. You may do light housework but avoid strenuous or exertional activities. You may shower the day after surgery. Do not take tub baths for 8 weeks. Do not have intercourse or put anything in your vagina for 8 weeks. You may return to work in around 6 weeks or earlier if you are feeling well after surgery. If you need work with [employer] paperwork or other paperwork for your job please call our office. Common Symptoms It is not uncommon to experience the following symptoms after your discharge from the hospital: Incisional pain Decreased appetite Mild nausea Fatigue Constipation Scant vaginal spotting Eat small frequent meals. Try bland meals if you are feeling nauseated. Many people experience constipation after surgery. You were most likely sent home with colace. Thisis a stool softener which makes your stools softer so that you don't have to strain. It generally does not stimulate your bowels to move if you are constipated. You may have also been discharged withMiralax or Senokot-S ( Senna ). These are medicines which help you go to the bathroom. You should take them daily until you start having regular bowel movements, then you may back off. If you did notreceive a prescription, they are available over the counter. If you were discharged with a haque catheter You should empty the drainage spout at the bottom of the bag at least three times per day. It is normal to sometimes see some blood tinged urine as the haque may cause some slight irritation; however, if your urine appears to be very bloody you should call our office. You may shower normally with the haque and clean around where the tube inserts into your urethra. Unless otherwise instructed, youshould be seen in our office a few days after surgery to have the catheter removed. If your surgery was for a diagnosis of cancer Unless otherwise instructed, you should be taking a blood thinner called Lovenox or Enoxaparin. This is a shot that you or a family member will give yourself in your abdomen for 28 days after surgery(in your abdomen similar to an insulin shot). Having a cancer and undergoing a surgery are two major risk factors for developing a blood clot in your lungs or legs. This can be a life threatening condition. Please refer to the separate instruction sheet on how to give yourself the medicine. When to call or be seen in the Emergency Department Fever greater than 100.4 degrees Increasing and severe abdominal or pelvic pain, not relieved by medications Severe nausea and vomiting Incisional redness or drainage IV site redness Inability to pass gas or have a bowel movement in 2-3 days Vaginal pain or foul-smelling discharge or persistent watery vaginal discharge Heavy vaginal bleeding (soaking a pad every hour, large clots, etc) Sudden chest pain, shortness of breath, calf tenderness on one side, redness of calf, one leg is more swollen than the other Flank pain Pain with urination, inability to empty your bladder well, frequency or urgency You should have an appointment in 3-4 weeks after your surgery (unless instructed otherwise) Please call our office at [phone] if you have any questions or issues. After 4:30 pm, nights, weekends, and holidays, call the exchange . Ask for the [facility] gynecology resident control systems engineer. Give them your name and phone number with the area code. The doctor will call you back. documented in this encounter Medications at Time [...] 1 (one) tablet by mouth once daily [place]-3 Fatty Acids (fish oil) 1000 MG capsule Take by mouth once daily Vitamin D3, cholecalciferol, 50 MCG (2000 UT) tabletIndications:Vitamin D deficiency, unspecified Take 1 tablet by mouth once daily 90 tablet 2 03/23/2019 acetaminophen (Tylenol) 500 MG capsule Take 2 (two) capsules by mouth every 6 hours as needed for Fever or Pain 30 capsule 02/27/2023 04/09/2023 celecoxib (CeleBREX) 50 MG capsuleIndications:S/P TKR (total knee replacement), left,Primary osteoarthritis of left knee Take 2 (two) capsules by mouth once daily 60 capsule 1 01/15/2023 05/13/2023 Cholecalciferol (vitamin D3) 1.25 MG (49340 UT) capsule Take 1 (one) capsule by mouth Once per week 01/07/2023 04/09/2023 ibuprofen (Motrin) 600 MG tablet Take 1 (one) tablet by mouth every 6 hours as needed for Pain 40 tablet 1 02/27/2023 04/09/2023 oxyCODONE, immediate release, (Roxicodone) 5 MG tabletIndications:Malignant neoplasm of upper-inner quadrant of left breast in female, estrogen receptor positive (HCC) Take 1 (one) tablet by mouth every 4 hours as needed for Pain 15 tablet 02/27/2023 04/09/2023 polyethylene glycol 3350 (Miralax) 17 GM/SCOOP powder Take 17 (seventeen) g by mouth once daily 289 g 02/27/2023 04/09/2023 senna (Senokot) 8.6 MG tablet Take 1 (one) tablet by mouth 2 times daily for 30 days 60 tablet 02/27/2023 03/29/2023 documented as of this encounter H&P Notes * Nahed Levy - 02/17/2023 10:10 AM CDT 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 Marti Reardon History: Milagros Cervantes is a 57 year old female s/p dilation and curettage, hysteroscopy, placementof IUD by Dr. Ramirez on 01/07/2023 for CAH/EIN. Final pathology c/w recurrent EIN/CAH despite hormonal therapy. She reports that she is feeling well. She reports she is tolerating diet and activity.Bladder and bowels WNL. Given the persistence of the EIH/CAH the patient desires to proceed with the operation. PMH: Past Medical History: Diagnosis Date ??? Arthropathy ??? Breast cancer (CMS/HCC) ??? CKD (chronic kidney disease) blood work every 6 months to monitor, no dialysis ??? Depression with anxiety ??? Disorder of liver NAFLD, bloodwork checked every 6 months, ok to take tylenol ??? Gallstones ??? Hypertension required meds when getting radiation for breast CA. No longer requiring meds ??? Malignancy (CMS/HCC) breast left ??? Valvular heart disease heart murmur PSH: Past Surgical History: Procedure Laterality Date ??? [...] PMB in the s/o tamoxifen use ??? HYSTEROSCOPY N/A 10/16/2022 N/A; HYSTEROSCOPY WITH DILATION & CURETTAGE, INTRAUTERINE DEVICE PLACEMENT ??? HYSTEROSCOPY N/A 01/07/2023 N/A; HYSTEROSCOPY WITH DILATION & CURETTAGE, REMOVAL & REPLACEMENT OF INTRAUTERINE DEVICE ??? 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 F/u left diagnostic mammogram in 6 months. SOC: Social History Socioeconomic History ??? Marital status: [...] on file Housing Stability: Not on file FamHx: Family History Problem Relation Name Age of Onset ??? Cancer - Lung Mother ??? Cancer - Breast Sister ??? Cancer - Prostate Brother No Known Allergies No current facility-administered medications for this encounter. Current Outpatient Medications Medication Sig Dispense Refill ??? calcium 600 MG tablet Take 1 tablet by mouth daily with food 90 tablet 2 ??? celecoxib (CeleBREX) 50 MG capsule Take 2 (two) capsules by mouth once daily 60 capsule 1 ??? Cholecalciferol (vitamin D3) 1.25 MG (49975 UT) capsule Take 1 (one) capsule by mouth ??? famotidine (Pepcid) 20 MG tablet Take 1 (one) tablet by mouth once daily ??? losartan - hydroCHLOROthiazide (Hyzaar) 50-12.5 MG tablet Take 1 (one) tablet by mouth once daily ??? Vitamin D3, cholecalciferol, 50 MCG (2000 UT) tablet Take 1 tablet by mouth once daily 90 tablet 2 Exam in office per chart review 01/22/23: Lungs: CTA bilaterally Cardiac: RRR, Nl S1 and S2, no murmur Abdominal:??Soft, NTND, BS's positive Extremities:??No C/C/E, no Cornelius's Pelvic Exam: IUD string is palpable, no other abnormal findings. Lab Review: Recent Labs Component Name 01/07/23 0608 ABORH O POS Recent Labs Component Name 01/07/23 0608 12/30/22 0000 10/21/22 1203 03/20/22 1036 WBC 5.0 4.9 5.8 5.1 HGB 12.4 12.5 12.0 11.2* HCT 37.3 38.2 35.9 34.6* PLTCOUNT 144* - 163 173 Recent Labs Component Name 01/07/23 0608 12/30/22 0000 10/21/22 1203 03/20/22 1036 01/22/22 1015 SODIUM 141 143 - - 139 POTASSIUM 3.9 4.4 3.8 3.7 3.8 CHLORIDE 110* 107* - - 107 CO2 22 22 27 21* 21* BUN 15 17 16 15 20 CREATININE 0.88 - 0.96 1.07* 1.15* GLUCOSE 95 90 95 147* 91 CALCIUM 9.7 9.7 9.3 9.3 9.4 Imaging Review: N/A Pathology Review: 01/07/23: uterus, endometrium, curettage: scant, detached fragemnts of at least compelx atypical hyperplasia/enodmetrial intraepihtelial neoplasm (CAH/EIN), background endometrium w/exogenous hormone effect and chronic endometritis 10/16/22: inactive endometrium, benging squamous epithelium w/detached fragments of squamous morules, w/o evidence of hyperplasia/malignancy 07/25/22 EMB: focal complex atypical hyperplasia/endometrial intraepithelial neoplasia 07/09/22 pap: NILM Assessment/Plan: 57 year old with: persistent CAH/EIN s/p dilation and curettage, hysteroscopy, and replacementof IUD Procedure(s): ROBOTIC ASSISTED TOTAL LAPAROSCOPIC HYSTERECTOMY, SALPINGO--OOPHORECTOMY--BILATERAL, POSSIBLE SENTINEL LYMPH NODE BIOPSY--BILATERAL Risks and Benefits of surgery were reviewed with the patient during her last clinic appointment, including but not limited to: infection, bleeding, possible need for blood transfusion, damage to surrounding structures (bladder, bowel, ureters). Nahed Levy 02/17/2023 10:10 AM Associated attestation - Marti Reardon MD - 02/27/2023 6:32 AM CDT I have reviewed the above documentation. I have examined the patient and confirm findings in the exam. I agree with that documentation and have edited the note appropriately. Will proceed as discussed, possible sentinel lymph node biopsy if cancer is confirmed. 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 PROCEDURE PERFORMED: Robotic-assisted total laparoscopic hysterectomy and bilateral salpingo- oophorectomy and injection of indocyanine green. 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 ANESTHESIA: General. ORACLE E BUSINESS DEVELOPER: Edwin Flanagan M.D., resident. FLUIDS: 550 mL of crystalloid. URINE OUTPUT: 300 mL. ESTIMATED BLOOD LOSS: 50 mL. DRAINS: None. COMPLICATIONS: None. INDICATION FOR THE PROCEDURE: Ms. Cervantes is a very pleasant 57-year-old female, who has a longstanding history of complex atypical hyperplasia/endometrial intraepithelial neoplasia, who has had multiple attempts at dilatation and curettage, hysteroscopy, as well as IUD and medical management. Unfortunately, upon replacement of the IUD, a sampling was obtained and this confirmed persistence. As a result, the patient presents today for definitive surgical management. FINDINGS: At the time of robotic hysterectomy, the uterus was slightly enlarged globally about 9 weeks. There was no definitive single mass. Both tubes and ovaries appeared anatomically normal. There was no evidence of any ascites. The peritoneal surfaces were smooth and glistening. The small and large bowel as well as the mesentery as well as the appendix that was visualized was normal. It should be noted that we did map both lymph nodes to the external iliac arteries, however, given the intraoperative frozen section demonstrating no malignancy, the need for lymph node dissection was limited. PROCEDURE IN DETAIL: The patient was brought into the operative suite, underwent successful general endotracheal anesthesia and analgesia. The patient was then placed in supine position followed by placement of her lower extremities into Iker stirrups. Great care was taken to position the patient so that there was no undue pressure laterally at the level of the calf or extreme abduction at the level of the hip. The patient was then prepped and draped in the usual sterile fashion. A time- out occurred in the usual fashion. In a double gloved fashion, the surgeon first began with the vaginal portion of the case. A Haque catheter was placed into the bladder and the bladder was drained of its contents. The Haque catheter was left in situ by blowing up the balloon. A bivalve speculum was then placed into the vagina and the cervix was visualized. The anterior lip of the cervix was grasped with a single-tooth tenaculum. The cervix sounded to 7 cm. 5 mL of indocyanine green was given at the 3 and 9 o'clock cervical vaginal junction for lymphatic mapping. An 0 Vicryl suture was then placed at 12 o'clock and secured to the cervix. The uterine cervix was then subsequently dilated and a 3.5 cm Ish's surgical uterine manipulator was placed in the appropriate position after removal of the single-tooth tenaculum and the bivalve speculum and secured with the suture. The surgeon then removed the outer gloves and went to the upper abdominal portion of the case. An area was chosen just left of the midline. This was anesthetized with 0.75% Marcaine with epinephrine. The area was incised and opened with a Pean clamp. Two towel clamps were then placed medially and laterally, and a Veress needle was inserted into the abdominopelvic cavity in the usual fashion with good placement noted via hang drop saline technique. A CO2 pneumoperitoneum then occurred without difficulty. Following this, a robotic trocar was then placed with good positioning noted via direct visualization with the robotic laparoscope. We then proceeded to place 4 other ports, 2 robotic ports, 1 in the right upper quadrant and right mid quadrant, 1 in the left upper quadrant being an assistant elementary teacher port, and another robotic port in the left mid quadrant. These were all placed after anesthetizing the skin and subcu tissues with 0.75% Marcaine with epinephrine, making the incision and placing these under direct visualization. The patient was then placed in steep Trendelenburg position. The robot was docked to the patient. The robotic instruments were then inserted. The surgeon then went to the console. At this time, approximately 60 mL of saline was instilled into the abdomen, pelvis and a pelvic washing was obtained. This was set aside on the back table, however, once we had a benign finding with no evidence of malignancy this was discarded. The pelvic sidewall and retroperitoneum was then opened bilaterally. The round ligaments were identified, they were cauterized and divided. This division was carried anterior and posterior on the pelvic sidewall and the pararectal and paravesical spaces were developed. The ureter was identified in the medial leaf of the broad ligament. The 2 sentinel lymph nodes, both mapped to the external iliac artery and appeared normal in size and shape. This was noted in case lymphatic mapping needed to be done. We proceeded then to make a window in the medial leaf of the broad ligament. The IP ligament was isolated superior and away from the ureter. It was clamped, cauterized, and divided. Further dissection along the medial leaf of the broad ligament allowed the ureter to fall inferiorly and laterally out of harm's way. We then proceeded to developed the vesicouterine fold. This was identified from her prior scarring from her . Using monopolar cautery, the peritoneum overlying this area was incised and the bladder was dissected off the lower uterine segment, anterior cervix, and anterior vagina. Bilaterally, the uterine vessels were skeletonized. They were then clamped, cauterized, and divided with bipolar cautery and followed by monopolar cautery. In successive fashion, the cardinal ligaments, uterosacral ligaments, lateral supporting ligaments of the cervix and vagina were done similarly, allowing us to have only the cervix and vagina noted with good visualization of the ring. Using a cervicovaginal incision and using cautery, we performed a circumferential incision and the uterus, cervix, bilateral tubes, and ovaries were brought down through the vagina and out of the patient. A green Jody bulb syringe was then placed in the vagina to maintain pneumoperitoneum. The uterus, cervix, tubes, and ovaries were then sent to pathology. Intraoperative pathology revealed no evidence of malignancy, therefore sentinel lymph node biopsy was omitted. We proceeded to close the vaginal cuff with 0 Stratafix suture. We did this by anchoring the right anterior vaginal wall, the right vaginal fornix, the right posterior vaginal wall, locking this into place, and then running this laterally, anterior posteriorly, into the left anterior vaginal wall, vaginal fornix, and posterior wall of the vagina was closed. We then back handed the suture through the posterior wall and locked this into place and ultimately the suture and the needle was cut from the patient and withdrawn through the port. Large amount of warm water was then used for irrigation. No active bleeding was seen. All operative sites were examined and noted to be hemostatic. The patient had the robotic instruments removed and the robot was undocked from the patient. The patient was then placed into a neutral position. At this time, we proceeded to make all incisions after removal of the trocars, hemostatic with Bovie cautery. They were then closed with 3-0 Monocryl in a subcuticular fashion followed by application of Dermabond. Once this was dried, we then went ahead and did place some sterile bandages. The Jody syringe was then removed from the vagina. The vagina was examined. There was no evidence of any vaginal bleeding. With this the Haque catheter was removed and the procedure was terminated. Sponge, needle, and instrument counts were noted to be correct x2 per nursing staff. COMPLICATIONS: None. DISPOSITION: The patient was taken to the postop recovery room and extubated in stable condition. NAME: ASHELY CERVANTESTAMIKO Hall DICTATOR: MARTI REARDON MD DICTATED FOR: SUZIEG/MODL JOB ID: [id number] Operative Report documented in this encounter Plan of Treatment Upcoming Encounters Date Type Department Care Team (Late st Contact Info) Description 06/02/2024 10:30 AM BUZZLE BUFFER Office Visit [facility] - Orthopedic Surgery [address] [place] [phone] Kevin Britton MD [address] [facility] [address] [place] [address] 08/10/2024 1:00 PM CDT Office Visit [facility] - DIRECTOR PROCESS [address] [facility] [address] [place] [phone] Daja Mir MD [address] [facility] [place] [address] 10/26/2024 1:00 PM CDT Office Visit [facility] - Hematology/Oncology [address] [place] [phone] Elizabeth Garcia MD [address] [facility] [address] [place] [id number] 01/17/2025 12:30 PM CDT Procedure visit [facility] [place] [address] [place] [address], [place] [phone] 01/17/2025 1:00 PM CDT Office Visit [facility] [place] [address] [place] [address], [place] [phone] Marlena Mccoy, SILK SCREEN OPERATOR-ENGINE DISPATCHER [address] [place] [address] [address] [facility] [place] [address] documented as of this encounter Goals Goal Patient Goal Type Associated Problems Recent Progress Patient-Stated? Author Mobility General On track( 021 9:08 AM BUZZLE BUFFER) No Tika Pope, RN Note: Expected end [...] Procedure Name Priority Date/Time Associated Diagnosis Comments CARDIAC RHYTHM STRIP ORDER 03/03/2023 7:18 PM CDT APHERESIS/TRANSFU AYSHA ORDER 03/03/2023 7:18 PM CDT PATHOLOGY TISSUE EXAM (STL) Routine 02/27/2023 12:44 PM CDT Diagnosis unknown MI POLICY INTERN RQR USE ROBOTIC SURG SYS 02/27/2023 10:45 AM CDT Diagnosis unknown Special Needs NEEDS [employer], LUZINCI--NO REP. NEEDED PER OFFICE (ANNA MARIE)--01/22 KW documented in this encounter Results * CARDIAC RHYTHM STRIP ORDER (03/03/2023 7:18 PM CDT) Narrative 03/03/2023 7:18 PM CDT Ordered by an unspecified provider. Scanned Document CARDIAC SERVICES ORD ERABLES * APHERESIS/TRANSFUSION ORDER (03/03/2023 7:18 PM CDT) Narrative 03/03/2023 7:18 PM CDT Ordered by an unspecified provider. Scanned Document NURSING - VITAL SIGN S AND ASSESSMENT * PATHOLOGY TISSUE EXAM (STL) (02/27/2023 12:44 PM CDT) Case Report Surgical Pathology Report ? Case: [id number] ? Authorizing Provider: ??Marti Reardon MD ?Collected: ? 02/27/2023 12:44 PM ? Ordering Location: ? [facility] ? Received: ?02/27/2023 12:48 PM ? Pathologist: ? Maxine Talbert MD ? Specimen: ?Uterus w Tube and Ovary, uterus, cervix, bilateral tubes and ovaries ? 03/03/2023 2:47 PM CDT [facility] Final Diagnosis Uterus, hysterectomy (including FSA1) - Benign predominantly basalis endometrium with focal areas of stromal decidualization/hormo ne effect - Adenomyosis - Leiomyomata - Cervical parakeratosis Ovaries and Fallopian tubes, bilateral, salpingo-oophorectomy - No histopathologic abnormality 03/03/2023 2:47 PM [facility] Clinical History The patient is a 57-year-old woman with history complex atypical hyperplasia. Operative procedure: hysterectomy, bilateral salpingo-oophorectomy . 03/03/2023 2:47 PM [facility] Frozen Section The frozen section diagnosis is as rendered below. FSA1: Uterus, hysterectomy - Irregular endometrium; no carcinoma on section frozen The specimen was received at 1247 on 02/27/23 and was reported to Dr. Reardon at [address] Talbert. 03/03/2023 2:47 PM [facility] Gross Description The requisition and specimen are identified with the patient's name, Milagros Cervantes. Received fresh and then placed in formalin, [...] yellow-dumont cut surface with multiple corpora albicantia. Gas Torch Solderer sections are submitted as follows: A1: FSA1 [...] Left ovary IY 03/03/2023 2:47 PM CDT [facility] Microscopic Description Microscopic examination substantiates the above diagnosis. Permanent sections confirm the frozen section diagnosis. 03/03/2023 2:47 PM CDT [facility] Pathologist Location at [facility] 03/03/2023 2:47 PM CDT [facility] Disclaimer All histochemical and/or immunohistochemical results are interpreted with controls that demonstrate appropriate staining reactions before reporting results. Note on use of immunocytochemistry reagents: This test was developed and its performance characteristic determined by [facility] [place], Department of Laboratory Medicine. It has not [...] interpreted with caution. 03/03/2023 2:47 PM CDT [facility] Embedded Images 03/03/2023 2:47 PM CDT [facility] Pathology/Cytolo gy HYSTERECTOMY AND BILATERAL SALPINGO-OOPHORECTOM Y SPECIMEN / Unknown 02/27/2023 12:44 PM CDT 02/27/2023 12:48 PM CDT Comment:Pre-op diagnosis: Diagnosis unknown [R69] Marti Reardon MD LAB - PATHOLOGY/CYTO LOGY ORDERABLES [facility] [address] [place] [address] documented in this encounter Visit Diagnoses Diagnosis Malignant neoplasm of upper-inner quadrant of left breast in female, estrogen receptor positive (HCC)- Primary Diagnosis unknown Other unknown and unspecified cause of morbidity or mortality documented in this encounter Administered Medications Inactive Administered Medications - up to 3 most recent administrations Medication Order MAR Action Action Date Dose Rate Site 0.9% NaCl injection 1-10 mL 1-10 mL, Intracatheter, PRN, Other, peripheral line flush, Starting on Kaylin 02/27/23 at 0919, Until Kaylin 02/27/23 at 1846, Flush peripheral IV catheter with 1-10 mL of normal saline before and after medications and prn to clear blood from the line or to verify patency., Pre-op 0.9% NaCl injection 3 mL 3 mL, Intracatheter, EVERY 8 HOURS, First dose on Kaylin 02/27/23 at 0930, Until Discontinued, Flush peripheral IV catheter with 3 mL of normal saline every 8 hours., Pre-op acetaminophen (Tylenol) tablet 1,000 mg 1,000 mg, Oral, ONCE, 1 dose, On Kaylin 02/27/23 at 0930, Patient preference for lesser PRN pain meds may be honored when the patient requests a less strong medication, a lower dose, or a less intrusive route of administration when the lesser drug, dose and route have been ordered for the patient. This patient request must be documented in the MAR., Pre-op $ Given 02/27/2023 9:51 AM CDT 1,000 mg fentaNYL (PF) (Sublimaze) injection 50 mcg 50 mcg, Intravenous, EVERY 3 MIN PRN, Mild Pain, 4 doses, Starting on Kaylin 02/27/23 at 1333, Until Kaylin 02/27/23 at 1846, Maximum total of 4 doses. If patient reaches max total dose, please consult anesthesiologist prior to further administration of pain meds. Hold pain meds if there are signs of hypoventilation. Patient preference for lesser PRN pain meds may be honored when the patient requests a less strong medication, a lower dose, or a less intrusive route of administration when the lesser drug, dose and route have been ordered for the patient. This patient request must be documented in the MAR., PACU HYDROmorphone (Dilaudid) injection 0.5 mg 0.5 mg, Intravenous, EVERY 5 MIN PRN, Severe Pain, 4 doses, Starting on Kaylin 02/27/23 at 1333, Until Kaylin 02/27/23 at 1846, Maximum total of 4 doses If patient reaches max total dose, please consult anesthesiologist prior to further administration of pain meds. Hold pain meds if there are signs of hypoventilation. Patient preference for lesser PRN pain meds may be honored when the patient requests a less strong medication, a lower dose, or a less intrusive route of administration when the lesser drug, dose and route have been ordered for the patient. This patient request must be documented in the MAR., PACU $ Given 02/27/2023 2:00 PM CDT 0.5 mg $ Given 02/27/2023 1:42 PM CDT 0.5 mg $ Given 02/27/2023 1:35 PM CDT 0.5 mg ibuprofen (Motrin) tablet 600 mg 600 mg, Oral, EVERY 6 HOURS PRN, Mild Pain, Starting on Kaylin 02/27/23 at 1451, Until Kaylin 02/27/23 at 1846, Not to exceed 3200 mg in daily from all sources. Patient preference for lesser PRN pain meds may be honored when the patient requests a less strong medication, a lower dose, or a less intrusive route of administration when the lesser drug, dose and route have been ordered for the patient. This patient request must be documented in the MAR., Post-op $ Given 02/27/2023 4:20 PM CDT 600 mg lactated ringers infusion at 125 mL/hr, Intravenous, CONTINUOUS, Starting on Kaylin 02/27/23 at 1345, Until Kaylin 02/27/23 at 1846, PACU lactated ringers infusion at 20 mL/hr, Intravenous, PRE-OP CONTINUOUS, Starting on Kaylin 02/27/23 at 0930, Until Kaylin 02/27/23 at 1846, Pre-op $ New Bag/Syringe 02/27/2023 11:21 AM CDT lidocaine PF (Xylocaine MPF) 1 % injection 0.2 mL 0.2 mL, Infiltration, PRE-OP MULTIPLE, 3 doses, Starting on Kaylin 02/27/23 at 0924, Until Kaylin 02/27/23 at 1846, May be used (0.2 ml locally to anesthetize prior to insertion)., Pre-op $ Given 02/27/2023 9:51 AM CDT 0.2 mL morphine injection 4 mg 4 mg, Intravenous, EVERY 5 MIN PRN, Moderate Pain, 5 doses, Starting on Kaylin 02/27/23 at 1333, Until Kaylin 02/27/23 at 1846, Maximum total of 4 doses. If patient reaches max total dose, please consult anesthesiologist prior to further administration of pain meds. Hold pain meds if there are signs of hypoventilation. Patient preference for lesser PRN pain meds may be honored when the patient requests a less strong medication, a lower dose, or a less intrusive route of administration when the lesser drug, dose and route have been ordered for the patient. This patient request must be documented in the MAR., PACU naloxone (Narcan) injection 0.04 mg 0.04 mg, Intravenous, POST-OP MULTIPLE, Starting on Kaylin 02/27/23 at 1333, Until Kaylin 02/27/23 at 1846, If respiration rate is less than 7 per minute administer IV every 1 minute until respirations are greater than 12 per minute. Notify anesthesia immediately., PACU ondansetron (disintegrating) (Zofran ODT) tablet 4 mg 4 mg, Oral, ONCE, 1 dose, On Kaylin 02/27/23 at 1730, Dissolved orally on tongue $ Given 02/27/2023 5:13 PM CDT 4 mg ondansetron (Zofran) injection 4 mg 4 mg, Intravenous, ONCE, 1 dose, On Kaylin 02/27/23 at 1530, Administer over 2 to 5 minutes. $ Given 02/27/2023 3:06 PM CDT 4 mg oxyCODONE-acetaminophen (Percocet) 5-325 MG tablet 1 tablet 1 tablet, Oral, EVERY 4 HOURS PRN, Moderate Pain, Starting on Kaylin 02/27/23 at 1451, Until Kaylin 02/27/23 at 1846, Patient preference for lesser PRN pain meds may be honored when the patient requests a less strong medication, a lower dose, or a less intrusive route of administration when the lesser drug, dose and route have been ordered for the patient. This patient request must be documented in the MAR., Post-op $ Given 02/27/2023 2:56 PM CDT 1 tablet scopolamine (Transderm-Scop) 1 patch 1 patch, Administer over 72 Hours, EVERY 72 HOURS, 1 dose, First dose on Kaylin 02/27/23 at 0930, Apply patch behind the ear, do not cut patch, only 1 patch should be worn at a time and remove old patch before applying new patch.This patch may contain metal and is not compatible with MRI. Notify radiology of patch location upon arrival to MRI. Each patch contains 1.5 mg scopolamine base and is formulated to deliver 1 mg of scopolamine over 72 hours. $ Applied 02/27/2023 9:51 AM CDT 1 patch Behind Left Ear scopolamine patch placement confirmation Transdermal, 2 TIMES DAILY, 6 doses, First dose on Kaylin 02/27/23 at 0930, Last dose on 03/01/23 at 2100, Patient has a patch to be confirmed on transition to inpatient and 2 times daily., Pre-op / Post-op documented in this encounter Active and Recently Administered Medications Times are shown in CDT. Scheduled Medication Order 02/25/2023 02/26/2023 02/27/2023 0.9% NaCl injection 3 mL(Linked Group 1) 3 mL, Intracatheter, EVERY 8 HOURS, First dose on Kaylin 02/27/23 at 0930, Until Discontinued, Flush peripheral IV catheter with 3 mL of normal saline every 8 hours., Pre-op 929 (Due)1400 (Due) acetaminophen (Tylenol) tablet 1,000 mg (COMPLETED) 1,000 mg, Oral, ONCE, 1 dose, On Kaylin 02/27/23 at 0930, Patient preference for lesser PRN pain meds may be honored when the patient requests a less strong medication, a lower dose, or a less intrusive route of administration when the lesser drug, dose and route have been ordered for the patient. This patient request must be documented in the MAR., Pre-op 950 ($ Given - Prov ider: Maryjane Smith RN) ceFAZolin (Ancef) 2 g in 0.9% NaCl IV 50 mL IVPB (COMPLETED) 2 g, at 100 mL/hr, Intravenous, ONCE, 1 dose, On Kaylin 02/27/23 at 0930, Administer within 60 minutes before surgical incision to ensure adequate antibiotic concentration at surgical sites at the time of incision. Antibiotic infusion must be complete at least 10 minutes prior to incision or tourniquet placement. Give antibiotics in the following order to optimize timin. Vancomycin (if ordered) 2. Metronidazole(if ordered) 3. Cefazolin Compatible antibiotics may be administered together, Indication for anti-infective therapy: Surgical prophylaxis, Pre-op 1123 ($ New Bag/Syri nge - Provider: Greer Mccain MD) insulin regular human (HumuLIN R; NovoLIN R) 100 UNIT/ML injection 0-6 Units 0-6 Units, Intravenous, ONCE, 1 dose, On Kaylin 02/27/23 at 1345, POC Glucose Regular Insulin Dose 0 - 180 mg/dL = 0 units 181 - 220 mg/dL = 3 units 221 - 260 mg/dL = 4 units 261 - 300 mg/dL = 5 units Above 300 mg/dL = 6 units . WASTE DISPOSAL INSTRUCTIONS: Black Bin Disposal required., PACU 1345 (Due) lidocaine PF (Xylocaine MPF) 1 % injection 0.2 mL 0.2 mL, Infiltration, PRE-OP MULTIPLE, 3 doses, Starting on Kaylin 02/27/23 at 0924, Until Kaylin 02/27/23 at 1846, May be used (0.2 ml locally to anesthetize prior to insertion)., Pre-op 0951 ($ Given - Prov ider: Maryjane Smith RN) metroNIDAZOLE (Flagyl) 500 mg in 100 mL IVPB (COMPLETED) 500 mg, at 200 mL/hr, Intravenous, ONCE, 1 dose, On Kaylin 02/27/23 at 0930, Administer within 60 minutes before surgical incision to ensure adequate antibiotic concentration at surgical sites at the time of incision. Antibiotic infusion must be complete at least 10 minutes prior to incision or tourniquet placement. Give antibiotics in the following order to optimize timin. Vancomycin (if ordered) 2. Metronidazole(if ordered) 3. Cefazolin Compatible antibiotics may be administered together Controlled Room Temperature, Indication for anti-infective therapy: Surgical prophylaxis, Pre-op 1141 ($ Given - Prov ider: Greer Mccain MD) naloxone (Narcan) injection 0.04 mg 0.04 mg, Intravenous, POST-OP MULTIPLE, Starting on Kaylin 02/27/23 at 1333, Until Kaylin 02/27/23 at 1846, If respiration rate is less than 7 per minute administer IV every 1 minute until respirations are greater than 12 per minute. Notify anesthesia immediately., PACU ondansetron (disintegrating) (Zofran ODT) tablet 4 mg (COMPLETED) 4 mg, Oral, ONCE, 1 dose, On Kaylin 02/27/23 at 1730, Dissolved orally on tongue 1713 ($ Given - Prov ider: Kimberly Caldwell RN) ondansetron (Zofran) injection 4 mg (COMPLETED) 4 mg, Intravenous, ONCE, 1 dose, On Kaylin 02/27/23 at 1530, Administer over 2 to 5 minutes. 1506 ($ Given - Prov ider: Kimberly Caldwell RN) scopolamine (Transderm-Scop) 1 patch(Linked Group 2) 1 patch, Administer over 72 Hours, EVERY 72 HOURS, 1 dose, First dose on Kaylin 02/27/23 at 0930, Apply patch behind the ear, do not cut patch, only 1 patch should be worn at a time and remove old patch before applying new patch.This patch may contain metal and is not compatible with MRI. Notify radiology of patch location upon arrival to MRI. Each patch contains 1.5 mg scopolamine base and is formulated to deliver 1 mg of scopolamine over 72 hours. 0951 ($ Applied - Pr ovider: Maryjane Smith RN)1720 (Due: Removed - Provider: Generic, Auto Release - Comment: Time automatically adjusted from order being discontinued) scopolamine patch placement confirmation(Linked Group 2) Transdermal, 2 TIMES DAILY, 6 doses, First dose on Kaylin 02/27/23 at 0930, Last dose on 03/01/23 at 2100, Patient has a patch to be confirmed on transition to inpatient and 2 times daily., Pre-op / Post-op 0930 (Due) Continuous Medication Order 02/25/2023 02/26/2023 02/27/2023 lactated ringers infusion at 125 mL/hr, Intravenous, CONTINUOUS, Starting on Kaylin 02/27/23 at 1345, Until Kaylin 02/27/23 at 1846, PACU 1345 (Due) lactated ringers infusion at 20 mL/hr, Intravenous, PRE-OP CONTINUOUS, Starting on Kaylin 02/27/23 at 0930, Until Kaylin 02/27/23 at 1846, Pre-op 1121 ($ New Bag/Syri nge - Provider: Greer Mccain MD) PRN Medication Order 02/25/2023 02/26/2023 02/27/2023 0.9% NaCl injection 1-10 mL(Linked Group 1) 1-10 mL, Intracatheter, PRN, Other, peripheral line flush, Starting on Kaylin 02/27/23 at 0919, Until Kaylin 02/27/23 at 1846, Flush peripheral IV catheter with 1-10 mL of normal saline before and after medications and prn to clear blood from the line or to verify patency., Pre-op 0.9% NaCl irrigation solution (COMPLETED) CONTINUOUS PRN, Starting on Kaylin 02/27/23 at 1310, Until Kaylin 02/27/23 at 1322, Intra-op 1310 ($ New Bag/Syri nge - Provider: Marti Reardon MD - Comment: abdomen) BUPivacaine 0.75% - EPINEPHrine 1:200,000 (PF) injection (CANCELED) PRN, Starting on Kaylin 02/27/23 at 1300, Until Kaylin 02/27/23 at 1322, Intra-op 1300 ($ Given - Prov ider: Marti Reardon MD - Comment: abdomen) fentaNYL (PF) (Sublimaze) injection 50 mcg 50 mcg, Intravenous, EVERY 3 MIN PRN, Mild Pain, 4 doses, Starting on Kaylin 02/27/23 at 1333, Until Kaylin 02/27/23 at 1846, Maximum total of 4 doses. If patient reaches max total dose, please consult anesthesiologist prior to further administration of pain meds. Hold pain meds if there are signs of hypoventilation. Patient preference for lesser PRN pain meds may be honored when the patient requests a less strong medication, a lower dose, or a less intrusive route of administration when the lesser drug, dose and route have been ordered for the patient. This patient request must be documented in the MAR., PACU HYDROmorphone (Dilaudid) injection 0.5 mg 0.5 mg, Intravenous, EVERY 5 MIN PRN, Severe Pain, 4 doses, Starting on Kaylin 02/27/23 at 1333, Until Kaylin 02/27/23 at 1846, Maximum total of 4 doses If patient reaches max total dose, please consult anesthesiologist prior to further administration of pain meds. Hold pain meds if there are signs of hypoventilation. Patient preference for lesser PRN pain meds may be honored when the patient requests a less strong medication, a lower dose, or a less intrusive route of administration when the lesser drug, dose and route have been ordered for the patient. This patient request must be documented in the MAR., PACU 1335 ($ Given - Prov ider: Aditi Albarran RN)1342 ($ Given - Provider: Aditi Albarran RN)1400 ($ Given - Provider: Aditi Albarran RN) ibuprofen (Motrin) tablet 600 mg 600 mg, Oral, EVERY 6 HOURS PRN, Mild Pain, Starting on Kaylin 02/27/23 at 1451, Until Kaylin 02/27/23 at 1846, Not to exceed 3200 mg in daily from all sources. Patient preference for lesser PRN pain meds may be honored when the patient requests a less strong medication, a lower dose, or a less intrusive route of administration when the lesser drug, dose and route have been ordered for the patient. This patient request must be documented in the MAR., Post-op 1620 ($ Given - Prov ider: Kimberly Caldwell RN) indocyanine green (Ic Green) injection (CANCELED) PRN, Starting on Kaylin 02/27/23 at 1150, Until Kaylin 02/27/23 at 1322, Intra-op 1150 ($ Given - Prov ider: Marti Reardon MD - Comment: mixed with 10cc of injectable sterile water) morphine injection 4 mg 4 mg, Intravenous, EVERY 5 MIN PRN, Moderate Pain, 5 doses, Starting on Kaylin 02/27/23 at 1333, Until Kaylin 02/27/23 at 1846, Maximum total of 4 doses. If patient reaches max total dose, please consult anesthesiologist prior to further administration of pain meds. Hold pain meds if there are signs of hypoventilation. Patient preference for lesser PRN pain meds may be honored when the patient requests a less strong medication, a lower dose, or a less intrusive route of administration when the lesser drug, dose and route have been ordered for the patient. This patient request must be documented in the MAR., PACU oxyCODONE-acetaminophen (Percocet) 5-325 MG tablet 1 tablet 1 tablet, Oral, EVERY 4 HOURS PRN, Moderate Pain, Starting on Kaylin 02/27/23 at 1451, Until Kaylin 02/27/23 at 1846, Patient preference for lesser PRN pain meds may be honored when the patient requests a less strong medication, a lower dose, or a less intrusive route of administration when the lesser drug, dose and route have been ordered for the patient. This patient request must be documented in the MAR., Post-op 1456 ($ Given - Prov ider: Kimberly Caldwell RN) sterile water (PF) injection (COMPLETED) CONTINUOUS PRN, Starting on Kaylin 02/27/23 at 1300, Until Kaylin 02/27/23 at 1322, Intra-op 1300 ($ New Bag/Syri nge - Provider: Marti Reardon MD - Comment: mixed with 25mg of indocyanine green) sterile water irrigation (CANCELED) PRN, Starting on Kaylin 02/27/23 at 1300, Until Kaylin 02/27/23 at 1322, Intra-op 1300 ($ Given - Prov ider: Marti Reardon MD - Comment: instrument clean up) Linked Groups Order Group 1: SALINE LOCK, INSERT AND MAINTAIN (CANCELED) Routine, CONTINUOUS, Starting on Kaylin 02/27/23 at 0930, Until Specified, Pre-op, New collection And 0.9% NaCl injection 3 mLJump to med 3 mL, Intracatheter, EVERY 8 HOURS, First dose on Kaylin 02/27/23 at 0930, Until Discontinued, Flush peripheral IV catheter with 3 mL of normal saline every 8 hours., Pre-op And 0.9% NaCl injection 1-10 mLJump to med 1-10 mL, Intracatheter, PRN, Other, peripheral line flush, Starting on Kaylin 02/27/23 at 0919, Until Kaylin 02/27/23 at 1846, Flush peripheral IV catheter with 1-10 mL of normal saline before and after medications and prn to clear blood from the line or to verify patency., Pre-op Group 2: scopolamine (Transderm-Scop) 1 patchJump to med 1 patch, Administer over 72 Hours, EVERY 72 HOURS, 1 dose, First dose on Kaylin 02/27/23 at 0930, Apply patch behind the ear, do not cut patch, only 1 patch should be worn at a time and remove old patch before applying new patch.This patch may contain metal and is not compatible with MRI. Notify radiology of patch location upon arrival to MRI. Each patch contains 1.5 mg scopolamine base and is formulated to deliver 1 mg of scopolamine over 72 hours. And scopolamine patch placement confirmationJump to med Transdermal, 2 TIMES DAILY, 6 doses, First dose on Kaylin 02/27/23 at 0930, Last dose on 03/01/23 at 2100, Patient has a patch to be confirmed on transition to inpatient and 2 times daily., Pre-op / Post-op documented in this encounter Care Teams Tdp Displays Analyst Relationship Specialty Start Date End Date Willis Veras MD [address] [place] [id number] PCP - General 05/03/21 Cole Ku MD [address] OF [facility] [place] [address] General Surgery 11/10/20 documented as of this encounter
--- OUTSIDE RECORDS SUMMARY | 2024-04-25 13:56 | XMS_ITS | Encounter Summary ---
Author Organization [facility] Address [address] [facility] [place] [address] Care Team Providers Care Sed Middle School Teacher Name Role Phone Cole Ku MD Unavailable Willis Veras MD Primary Care Provider Reason for Visit * Auth/Cert (Routine) Specialty Diagnoses / Procedures Referred By Contac t Referred To Contact Diagnoses Diagnosis unknown Diagnosis unknown [R69] Procedures VT PREPRESS TECHNICIAN RQR USE ROBOTIC SURG SYS VT TLH W/T/O 250 G OR LESS VT IO MAP OF SENT LYMPH NODE VT LAP,LYMPH NODE BX VT LAP,PELVIC LYMPHADENECTOMY VT LAP,PELVIC LYMPHADENECTOMY/BX ROBOTIC ASSISTED HYSTERECTOMY TOTAL Referral ID Status Reason Start Date Expiration Date Visits Re quested Visits Authorized [id number] 1 1 Encounter Details Date Type Department Care Team (Late st Contact Info) Description 02/27/2023 11:24 AM CDT - 02/27/2023 2:11 PM CDT Surgery [facility] [address] [place] [address] Marti Reardon MD [address] [address] ROBOTIC ASSISTED TOTAL LAPAROSCOPIC HYSTERECTOMY, SALPINGO--OOPHORECTOMY --BILATERAL Surgery Details Date/Time Status Location OR Service Patient Class Case Class Case Type Trauma Case? 02/27/2023 11:24 AM Posted [facility] OR 16 Gynecology Oncology Surgery Day Care Elective > 5 days Panel 1 Procedure LRB Anes Op Region Wound Class Comments ROBOTIC ASSISTED TOTAL LAPAR OSCOPIC HYSTERECTOMY, SALPINGO--OOPHORECTOMY--BILATERAL N/A General Abdomen Clean C ontaminated Surgeon Surgeon Role Service Panel Marti Reardon MD Primary Gynecology Oncology 1 Edwin Flanagan MD Resident - Assisting Obstetrics 1 Special Needs NEEDS JACKY GONG--NO REP. NEEDED PER OFFICE (ANNA MARIE)--01/22 KW documented in this encounter Social History Tobacco [...] Sign Reading Time Taken Comments Blood Pressure 120/73 02/27/2023 2:10 PM CDT Pulse 80 02/27/2023 2:10 PM CDT Temperature 36.3 ??C (97.3 ??F) 02/27/2023 1:23 PM CD T Respiratory Rate 12 02/27/2023 2:10 PM CDT Oxygen Saturation 99% 02/27/2023 2:10 PM CDT Inhaled Oxygen Concentration - - [...] after surgery. If you need work with [employer] paperwork or other paperwork for your job [...] instructed otherwise) Please call our office at [phone] if you have any questions or issues. After 4:30 pm, nights, weekends, and holidays, call the exchange . Ask for the [facility] gynecology resident digital content producer. Give them your name and phone number [...] 1 (one) tablet by mouth once daily [place]-3 Fatty Acids (fish oil) 1000 MG capsule [...] 01/15/2023 05/13/2023 Cholecalciferol (vitamin D3) 1.25 MG (41988 UT) capsule Take 1 (one) capsule by [...] Nahed Levy - 02/17/2023 10:10 AM CDT [place] Pre Op History & Physical Per [...] Delivery Anes PTL Lv 3 2 1 TRACER BULLET CHARGING MACHINE OPERATOR: Ob: 07/2102 (SVDx2, CSx1) Menopause: 50 [...] 1 ??? Cholecalciferol (vitamin D3) 1.25 MG (04499 UT) capsule Take 1 (one) capsule by [...] damage to surrounding structures (bladder, bowel, ureters). 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 PROCEDURE PERFORMED: Robotic-assisted total laparoscopic hysterectomy and bilateral salpingo- oophorectomy and injection of indocyanine green. 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 ANESTHESIA: General. SSN/SSBN WEAPONS EQUIPMENT OPERATOR: Edwin Flanagan M.D., resident. FLUIDS: 550 mL [...] in the left upper quadrant being an spa assistant manager port, and another robotic port in the [...] room and extubated in stable condition. NAME: MILAGROS CERVANTES DICTATOR: MARTI REARDON MD DICTATED FOR: JAMES/EDWIN JOB ID: [id number] Operative Report documented in this encounter Plan of Treatment Upcoming Encounters Date Type Department Care Team (Late st Contact Info) Description 06/02/2024 10:30 AM PROCUREMENT DIRECTOR Office Visit [facility] - Orthopedic Surgery [address] [place] [address] Kevin Britton MD 10[address] [facility] [address] [place] [address] 08/10/2024 1:00 PM CDT Office Visit [facility] - ENVIRONMENTAL STUDIES PROGRAM DIRECTOR [address] [place] [phone] Daja Mir MD [address] [facility] [place] [address] 10/26/2024 1:00 PM CDT Office Visit [facility] - Hematology/Oncology [address] [place] [phone] Elizabeth Garcia MD [address] [facility] [address] [place] [address] 01/17/2025 12:30 PM CDT Procedure visit [facility] - GI [address] [facility], [place] [address] 01/17/2025 1:00 PM CDT Office Visit [facility] [place] [address] [place] [address], [facility] [place] [address] [address]len[address] Mccoy, ROAD CONSULTANT-REGULATORY ATTORNEY [address] [place] [address] [facility] [place] [address] documented as of this encounter Goals Goal Patient Goal Type Associated Problems Recent Progress Patient-Stated? Author Mobility General On track( 021 9:08 AM PROCUREMENT DIRECTOR) No Tika Pope, SABRINA Note: Expected end [...] Routine 02/27/2023 12:44 PM CDT Diagnosis unknown VT PREPRESS TECHNICIAN RQR USE ROBOTIC SURG SYS 02/27/2023 10:45 AM CDT Diagnosis unknown Special Needs NEEDS JACKY GONG--NO REP. NEEDED PER OFFICE (ANNA MARIE)--01/22 KW [...] Case Report Surgical Pathology Report ? Case: [id number] ? Authorizing Provider: ??Marti Reardon MD ?Collected: ? 02/27/2023 12:44 PM ? Ordering Location: ? [facility] ? Received: ?02/27/2023 12:48 PM ? Pathologist: ? Maxine Talbert MD ? Specimen: ?Uterus w Tube and Ovary, uterus, cervix, bilateral tubes and ovaries ? 03/03/2023 2:47 PM T [facility] Final Diagnosis Uterus, hysterectomy (including FSA1) - Benign predominantly basalis endometrium with focal areas of stromal decidualization/hormo ne effect - Adenomyosis - Leiomyomata - Cervical parakeratosis Ovaries and Fallopian tubes, bilateral, salpingo-oophorectomy - No histopathologic abnormality 03/03/2023 2:47 PM [facility] Clinical History The patient is a 57-year-old woman with history complex atypical hyperplasia. Operative procedure: hysterectomy, bilateral salpingo-oophorectomy . 03/03/2023 2:47 PM T [facility] Frozen Section The frozen section diagnosis is as rendered below. FSA1: Uterus, hysterectomy - Irregular endometrium; no carcinoma on section frozen The specimen was received at 1247 on 02/27/23 and was reported to Dr. Reardon at [address] Talbert. 03/03/2023 2:47 PM [facility] Gross Description The requisition and specimen [...] yellow-dumont cut surface with multiple corpora albicantia. Side Stitching Machine Operator sections are submitted as follows: A1: FSA1 [...] A22: Left ovary IY 03/03/2023 2:47 PM [facility] Microscopic Description Microscopic examination substantiates the above diagnosis. Permanent sections confirm the frozen section diagnosis. 03/03/2023 2:47 PM [facility] Pathologist Location at [facility] 03/03/2023 2:47 PM [facility] Disclaimer All histochemical and/or immunohistochemical results are interpreted with controls that demonstrate appropriate staining reactions before reporting results. Note on use of immunocytochemistry reagents: This test was developed and its performance characteristic determined by [facility], Department of Laboratory Medicine. It has [...] interpreted with caution. 03/03/2023 2:47 PM CDT [facility] Embedded Images 03/03/2023 2:47 PM CDT [facility] Pathology/Cytolo gy HYSTERECTOMY AND BILATERAL SALPINGO-OOPHORECTOM Y SPECIMEN / Unknown 02/27/2023 12:44 PM CDT 02/27/2023 12:48 PM CDT Comment:Pre-op diagnosis: Diagnosis unknown [R69] Marti Reardon MD LAB - PATHOLOGY/CYTO LOGY ORDERABLES Performing Organization Address City/State/[facility] Co de Phone Number [facility] [address] [place] [address] documented in this encounter Visit Diagnoses Diagnosis Malignant neoplasm of upper-inner quadrant of left breast in female, estrogen receptor positive (HCC)- Primary Diagnosis unknown Other unknown and unspecified cause of morbidity or mortality Diagnosis unknown Other unknown and unspecified cause of morbidity or mortality documented in this encounter Administered Medications Inactive Administered Medications - up to 3 most recent administrations Medication Order MAR Action Action Date Dose Rate Site 0.9% NaCl injection 1-10 mL 1-10 mL, Intracatheter, PRN, Other, peripheral line flush, Starting on Fri02/27/23 at 0919, Until Fri02/27/23 at 1846, Flush peripheral IV catheter with 1-10 mL of normal saline before and after medications and prn to clear blood from the line or to verify patency., Pre-op 0.9% NaCl injection 3 mL 3 mL, Intracatheter, EVERY 8 HOURS, First dose on Fri02/27/23 at 0930, Until Discontinued, Flush peripheral IV catheter with 3 mL of normal saline every 8 hours., Pre-op 0.9% NaCl irrigation solution CONTINUOUS PRN, Starting on Fri02/27/23 at 1310, Until Fri02/27/23 at 1322, Intra-op $ New Bag/Syringe 02/27/2023 1:10 PM CDT 300 mL Operative Site acetaminophen (Tylenol) tablet 1,000 mg 1,000 mg, Oral, ONCE, 1 dose, On Fri02/27/23 at 0930, Patient preference for lesser PRN pain meds may be honored when the patient requests a less strong medication, a lower dose, or a less intrusive route of administration when the lesser drug, dose and route have been ordered for the patient. This patient request must be documented in the MAR., Pre-op $ Given 02/27/2023 9:51 AM CDT 1,000 mg BUPivacaine 0.75% - EPINEPHrine 1:200,000 (PF) injection PRN, Starting on Kaylin 02/27/23 at 1300, Until Kaylin 02/27/23 at 1322, Intra-op $ Given 02/27/2023 1:00 PM CDT 15 mL Operative Site fentaNYL (PF) (Sublimaze) injection 50 mcg 50 [...] Given 02/27/2023 4:20 PM CDT 600 mg indocyanine green (Ic Green) injection PRN, Starting on Kaylin 02/27/23 at 1150, Until Kaylin 02/27/23 at 1322, Intra-op $ Given 02/27/2023 11:50 AM CDT 25 mg Operative Site lactated ringers infusion at 125 mL/hr, Intravenous, [...] and 2 times daily., Pre-op / Post-op sterile water (PF) injection CONTINUOUS PRN, Starting on Kaylin 02/27/23 at 1300, Until Kaylin 02/27/23 at 1322, Intra-op $ New Bag/Syringe 02/27/2023 1:00 PM CDT 10 mL See Comments sterile water irrigation PRN, Starting on Kaylin 02/27/23 at 1300, Until Kaylin 02/27/23 at 1322, Intra-op $ Given 02/27/2023 1:00 PM CDT 1 L See Comments documented in this encounter Active and Recently Administered Medications Times are shown in CDT. Scheduled Medication Order 02/25/2023 02/26/2023 02/27/2023 0.9% NaCl injection 3 mL(Linked Group 1) 3 mL, Intracatheter, EVERY 8 HOURS, First dose on Kaylin 02/27/23 at 0930, Until Discontinued, Flush peripheral IV catheter with 3 mL of normal saline every 8 hours., Pre-op 0930 (Due)1400 (Due) acetaminophen (Tylenol) tablet 1,000 mg [...] must be documented in the MAR., Pre-op 09 ($ Given - Prov ider: Maryjane Smith [...] on Kaylin 02/27/23 at 1333, Until Kaylin 23 at 1846, If respiration rate is less than 7 per minute administer IV every 1 minute until respirations are greater than 12 per minute. Notify anesthesia immediately., PACU ondansetron (disintegrating) (Zofran ODT) tablet 4 mg (COMPLETED) 4 mg, Oral, ONCE, 1 dose, On Kaylin 02/27/23 at 1730, Dissolved orally on tongue 1713 ($ Given - Prov ider: Kimberly Caldwell, RN) ondansetron (Zofran) injection 4 mg (COMPLETED) 4 mg, Intravenous, ONCE, 1 dose, On Kaylin 02/27/23 at 1530, Administer over 2 to 5 minutes. 1506 ($ Given - Prov ider: Kimberly Caldwell, RN) scopolamine (Transderm-Scop) 1 patch(Linked Group 2) [...] Post-op documented in this encounter Care Teams Sed Middle School Teacher Relationship Specialty Start Date End Date Willis Veras MD [address] [place] [address] PCP - General 05/03/21 Cole Ku MD [address] OF [facility] [place] [place] [address] General Surgery 11/10/20 documented as of this encounter
--- OUTSIDE RECORDS SUMMARY | 2024-04-25 13:57 | XMS_ITS | Encounter Summary ---
Author Organization [facility] Address [address] [place] [address] Care Team Providers Care Printer Helper Name Role Phone Cole Ku MD Unavailable Willis Veras MD Primary Care Provider Encounter Details Date Type Department Care Team (Latest Contact Info) Description 01/22/2023 Travel Social History Tobacco Use Types Packs/Day [...] st Contact Info) Description 06/02/2024 10:30 AM COMPOUNDING AND FINISHING SUPERVISOR Office Visit [facility] - Orthopedic Surgery [address] [place] [address] Kevin Britton MD [address] [facility] [address] [place] [address] 08/10/2024 1:00 PM CDT Office Visit [facility] - CMM OPERATOR [address] [facility] [address] [place] [address] Daja Mir MD [address] [facility] [place] [address] 10/26/2024 1:00 PM CDT Office Visit [facility] - Hematology/Oncology [address] [place] [phone] Elizabeth Garcia MD [address] [facility] 3 [place] [address] 01/17/2025 12:30 PM CDT Procedure visit [facility] - GI [address] [place] [phone] 01/17/2025 1:00 PM CDT Office Visit [facility] - GI [facility]5 [place] [phone] Marlena Mccoy, MOTOR TESTER-ELECTROLYTIC ETCHER [address] [place] [address] [facility] [place] [address] documented as of this encounter Goals Goal Patient Goal Type Associated Problems Recent Progress Patient-Stated? Author Mobility General On track( 021 9:08 AM COMPOUNDING AND FINISHING SUPERVISOR) No Tika Pope, SABRINA Note: Expected end [...] on filedocumented in this encounter Care Teams Printer Helper Relationship Specialty Start Date End Date Willis Veras MD [address] [place] [address] PCP - General 05/03/21 Cole Ku MD [address] [phone] General Surgery 11/10/20 documented as of this encounter
--- OUTSIDE RECORDS SUMMARY | 2024-04-25 13:57 | XMS_ITS | Encounter Summary ---
Author Organization [facility] Address [address] [facility] [place] [address] Care Team Providers Care Assistant Boiler Operator Name Role Phone Cole Ku MD Unavailable Willis Veras MD Primary Care Provider Reason for Visit * Reason Onset Date Comments Surgery Scheduling 01/22/2023 Encounter Details Date Type Department Care Team (Late st Contact Info) Description 01/22/2023 Telephone [facility] - PASTRY SOUS CHEF [address] [facility] [address] [place] [address] Chay Major MD [address] [place] [address] Surgery Scheduling Social History Tobacco Use Types Packs/Day Years [...] encounter Miscellaneous Notes * Telephone Encounter - Anna Marie Blount - 01/22/2023 12:20 PM CDT Medicaid Hysterectomy Form Signed? Yes 01/22/2023 Date of Procedure 02/27/2023 Time of Procedure 11:00 AM Time to Arrive 9:00 AM 1ST FLOOR. SAME DAY SURGERY. Surgery Location [address] [place] [address] Date of Pre-Op Testing DOS TYPE & SCREEN Surgery Scheduling Surgery Scheduling Phone Number ANNA MARIE. CHOOSE OPTION #3 TWICE [phone] Postop appointment date/time 03/12/2023 ??11:30AM [address] [place] [address], [facility] [address] Patient verbalized understanding of the details listed above. documented in this encounter Plan of Treatment Upcoming Encounters Date Type Department Care Team (Late st Contact Info) Description 06/02/2024 10:30 AM DIGITAL RETOUCHER Office Visit [facility] - Orthopedic Surgery [address] [place] [address] [place] [address] [place] [address] [address] [place] [address] 08/10/2024 1:00 PM CDT Office Visit [facility] - PASTRY SOUS CHEF [address] [facility] [address] [place] [address] Daja Mir MD [address] [place] [address] 10/26/2024 1:00 PM CDT Office Visit [facility] - Hematology/Oncology [address] [place] [phone] Elizabeth Garcia MD [address] [facility] [address] [place] [address] 01/17/2025 12:30 PM CDT Procedure visit [facility] [place] [address] [place] [address], [place] [phone] 01/17/2025 1:00 PM CDT Office Visit [facility] - GI [address] [place] [address], [place] [phone] Marlena Mccoy, JAVA SOFTWARE DEVELOPER-CHUCKING AND BORING MACHINE OPERATOR [address] [place] [address] [facility] [place] [address] documented as of this encounter Goals Goal Patient Goal Type Associated Problems Recent Progress Patient-Stated? Author Mobility General On track( 021 9:08 AM DIGITAL RETOUCHER) No Tika Pope, SABRINA Note: Expected end [...] on filedocumented in this encounter Care Teams Assistant Boiler Operator Relationship Specialty Start Date End Date Willis Veras MD [address] [place] [address] PCP - General 05/03/21 Cole Ku MD [address] OF [facility] [place] [address] General Surgery 11/10/20 documented as of this encounter
--- OUTSIDE RECORDS SUMMARY | 2024-04-25 13:57 | XMS_ITS | Encounter Summary ---
Author Organization [facility] Address [address] [facility] [place] [address] Care Team Providers Care Laborer Electroplating Name Role Phone Cole Ku MD Unavailable Willis Veras MD Primary Care Provider Reason for Visit * Reason Comments Post-Op Post op 01/07 Encounter Details Date Type Department Care Team (Late st Contact Info) Description 01/22/2023 11:30 AM CDT Office Visit [facility] - SIGN CARPENTER [address] [facility] [address] [place] [address] Chay Major MD [address] [facility] [address] [place] [address] EIN (endometrial intraepithelial neoplasia) (Primary Dx) Social History Tobacco Use Types [...] Sign Reading Time Taken Comments Blood Pressure 126/80 01/22/2023 11:24 AM CDT Pulse - - Temperature - - Respiratory Rate - - Oxygen Saturation - - Inhaled Oxygen Concentration - - Weight 95.3 kg (210 lb) 01/22/2023 11:24 AM CDT Height 170.2 cm (5' 7 ) 01/22/2023 11:24 AM CDT Body Mass Index 32.89 01/22/2023 11:24 AM CDT documented in this encounter Functional [...] Progress Notes * Chay Major MD - 01/22/2023 11:30 AM CDT TIE HACKER-Oncology Post-Op Visit Subjective HPI: Milagros Torres is a 57 year old female s/p dilation and curettage, hysteroscopy, placement of IUD by Dr. Ramirez on 01/07/2023 for CAH/EIN who presents for her 2 week post-op visit. Final pathology c/w recurrent EIN/CAH despite hormonal therapy. She reports that she is feeling well. She reports she is tolerating diet and activity. Bladder and bowels WNL. Objective Vitals: 01/22/23 1124 BP: 126/80 Weight: 95.3 kg (210 lb) Height: 1.702 m (5' 7 ) Estimated body mass index is 32.89 kg/m?? as calculated from the following: Height as of this encounter: 1.702 m (5' 7 ). Weight as of this encounter: 95.3 kg (210 lb). Physical Exam: Lungs: CTA bilaterally Cardiac: RRR, Nl S1 and S2, no murmur Abdominal: Soft, NTND, BS's positive Extremities: No C/C/E, no Cornelius's Pelvic Exam: IUD string is palpable, no other abnormal findings. Results: Pathology: (01/07/2023) Final Diagnosis ?? Uterus, endometrium, curettage - Scant, detached fragments of at least complex atypical hyperplasia/endometrial intraepithelial neoplasia (CAH/EIN) - Background endometrium with exogenous hormone effect and chronic endometritis Assessment/Plan 1. Persistent CAH/EIN s/p dilation and curettage, hysteroscopy, replacement of IUD: Normal 2 week post-operative check. The patient can resume normal activities. Given the persistence of the EIN/CAH I have recommended a robotic total laparoscopic hysterectomy, bilateral salpingo-oophorectomy, and possible bilateral sentinel lymph node biopsy if cancer is found or suspected. All R/B/A d/w the patient including the risk of infection, bleeding with the risk of HIV or hepatitis if given a transfusion, injury to the internal organs including but not limited to the small and/or large bowel, bladder, ureters, or vasculature. The patient understand and desires to proceed. documented in this encounter Plan of Treatment Upcoming Encounters Date Type Department Care Team (Late st Contact Info) Description 06/02/2024 10:30 AM BRICK SETTER OPERATOR Office Visit [facility] - Orthopedic Surgery [address] [place] [phone] Kevin Britton MD 1031 [facility] [address] [place] [address] 08/10/2024 1:00 PM CDT Office Visit [facility] - SIGN CARPENTER 10[address] [facility] 400 [place] [phone] Daja Mir MD [address] [facility] [place] [address] 10/26/2024 1:00 PM CDT Office Visit [facility] - Hematology/Oncology [address] [place] [phone] Elizabeth Garcia MD [address] [facility] [address] [place] [address] 01/17/2025 12:30 PM CDT Procedure visit [facility] [place] [address] [place] [address], [place] [phone] 01/17/2025 1:00 PM CDT Office Visit [facility] - GI [address] [place] [address], [place] [phone] Marlena Mccoy, CONTRACT PROGRAMMER-MANAGER FILM [address] [place] [address] [facility] [place] [address] documented as of this encounter Goals Goal Patient Goal Type Associated Problems Recent Progress Patient-Stated? Author Mobility General On track( 021 9:08 AM BRICK SETTER OPERATOR) No Tika Pope, RN Note: Expected end [...] as of this encounter Visit Diagnoses Diagnosis EIN (endometrial intraepithelial neoplasia)- Primary Endometrial intraepithelial neoplasia (EIN) documented in this encounter Care Teams Laborer Electroplating Relationship Specialty Start Date End Date Willis Veras MD [address] [place] [address] PCP - General 05/03/21 Cole Ku MD [address] OF [facility] [place] [address] General Surgery 11/10/20 documented as of this encounter
--- OUTSIDE RECORDS SUMMARY | 2024-04-25 13:57 | XMS_ITS | Encounter Summary ---
Author Organization [facility] Address [address] [place] [address] Care Team Providers Care Track Helper Name Role Phone Cole Ku MD Unavailable Willis Veras MD Primary Care Provider Encounter Details Date Type Department Care Team (Latest Contact Info) Description 01/17/2023 Travel Social History Tobacco Use Types Packs/Day [...] st Contact Info) Description 06/02/2024 10:30 AM TRAVEL SPECIALIST Office Visit [facility] - Orthopedic Surgery 1031 [place] [address] Kevin Britton MD 1031 [facility] 280 [place] [address] 08/10/2024 1:00 PM CDT Office [facility] - ENVIRONMENTAL RESEARCH PROJECT MANAGER 1031 [facility] 400 [place] [address] Daja Mir MD 5701 [facility] [place] [address] 10/26/2024 1:00 PM CDT Office [facility] - Hematology/Oncology 3655 [place] [address] Elizabeth Garcia MD 3665 [facility] 3 [place] [address] 01/17/2025 12:30 PM CDT Procedure visit [facility] - GI 1225 [place] [address] 01/17/2025 1:00 PM CDT Office Visit [facility] - [place] [facility] [facility] [place] [address] Marlena Mccoy, GLOVE OPERATOR-JOINT SUPERVISOR [address] [place] [address] [facility] [place] [address] documented as of this encounter Goals Goal Patient Goal Type Associated Problems Recent Progress Patient-Stated? Author Mobility General On track( 021 9:08 AM TRAVEL SPECIALIST) No Tika Pope, SABRINA Note: Expected end [...] on filedocumented in this encounter Care Teams Track Helper Relationship Specialty Start Date End Date Willis Veras MD 6616 [place] [address] PCP - General 05/03/21 Cole Ku MD [address] [phone] General Surgery 11/10/20 documented as of this encounter
--- OUTSIDE RECORDS SUMMARY | 2024-04-25 13:57 | XMS_ITS | Encounter Summary ---
Author Organization [facility] Address [address] [facility] [place] [address] Care Team Providers Care Intake Assessor Name Role Phone Cole Ku MD Unavailable Willis Veras MD Primary Care Provider Encounter Details Date Type Department Care Team (Late st Contact Info) Description 01/17/2023 Orders Only [facility] - [place] 1225 [facility], [place] [phone] Marlena Mccoy, WALL TAPER HELPER-AIR QUALITY CONSULTANT [address] [place] [address] [facility] [place] [address] NAFLD (nonalcoholic fatty liver disease) Social History Tobacco Use Types Packs/Day Years [...] st Contact Info) Description 06/02/2024 10:30 AM OPTICAL EFFECTS LINE UP PERSON Office Visit [facility] - Orthopedic Surgery 1031 [place] [address] Kevin Britton MD 1031 [facility] 280 [place] [address] 08/10/2024 1:00 PM CDT Office Visit [facility] - CLERICAL ORDER FILLER 1031 [facility] 400 [place] [address] Daja Mir MD [address] [facility] [place] [address] 10/26/2024 1:00 PM CDT Office Visit [facility] - Hematology/Oncology 7371 [place] [address] Elizabeth Garcia MD 1488 [facility] 3 [place] [address] 01/17/2025 12:30 PM CDT [place] [facility] [place] [address] [place] [address], [facility] [place] [address] 01/17/2025 1:00 PM CDT Office Visit [facility] - GI 1225 [facility], [place] [address] Marlena Mccoy APRN-CNP 1225 [facility] [place] [address] documented as of this encounter Goals Goal Patient Goal Type Associated Problems Recent Progress Patient-Stated? Author Mobility General On track( 021 9:08 AM OPTICAL EFFECTS LINE UP PERSON) No Tika Pope, RN Note: Expected end [...] documented as of this encounter Results * [place] LIVER ELASTOGRAPHY (01/17/2023 9:30 AM CDT) Narrative Liborio Shepherd MD - 01/17/2023 9:30 AM CDT Liborio Shepherd MD ? 01/24/2023 ??3:12 PM Diagnosis: NAFLD RN verified patient NPO for prior 3 hours. Procedure explained. Date of Exam: 01/17/2023 Liver Stiffness: (LSM, kPa) median: ??6.4 IQR/Median% (ideally < 30%): ??6% CAP (controlled attenuation parameter): ??275 Technical Difficulty: None Ordering Provider: BRINDA Guzman Phone Fax Fibroscan interpretation: I have personally [...] patients with nonalcoholic fatty liver disease. Gastroenterology 2019;156:2863-4980. Iris MS, Abilio R, Van Anatoliy ML, [...] These include the FAST (Fibroscan-AST) score (Cady, 2021) and the Agile3+ and Agile4 scores (Masha, 202). Cady TA, Van Natta ML, eRggie M, Elie A, et al. Validation of the accuracy of the FAST score for detecting patients with at-risk nonalcoholic steatohepatitis (LAMBERT) in a [place] cohort and comparison to other non-invasive algorithms. PLoS ONE (2021) 17: [id number]. Masha DALAL, Curtis J, Zuri ZM, et al. Enhanced diagnosis of advanced fibrosis and cirrhosis in individuals with NAFLD using FibroScan-based Agile scores. J Hepatol (2022) 78: 247-259. Fibroscan LSM can also be used with laboratory parameters without formulas to assess prognosis. According to the Baveno-VII criteria (de Natalie, 202), Fibroscan LSM ?15 kPa plus a platelet count of ?269r017/L rules out clinically significant portal hypertension (sensitivity and negative predictive value >90%) in patients with compensated advanced chronic liver disease. El R, Luis J, Aislinn G, Britney T, Shirley Frias on behalf of the [facility] VII Faculty. [facility]--Renewing consensus in portal hypertension. J Hepatol (2021) 76: 959-974 Assessing the likelihood of advanced fibrosis in patients with indeterminate liver stiffness measurement (LSM) by Fibroscan (e.g., 8-15 kPa) can be improved by also calculating the FIB-4 score (Darrel et al. Hepatology Communications 2019;3:3966-0958) or NAFLD Fibrosis score (Pitts et al. Clinical Gastroenterology and Hepatology 2019;17:2965-5092 using ??routine clinical data. Note: 1. Fibroscan [...] additional interpretive data was last updated 09/07/22.) [email or web address] Marlena Mccoy WALL TAPER HELPER-AIR QUALITY CONSULTANT PROCEDURE/M INOR SURGICAL ORDERABLES documented in this encounter Visit Diagnoses Diagnosis NAFLD (nonalcoholic fatty liver disease) Other chronic nonalcoholic liver disease documented in this encounter Care Teams Intake Assessor Relationship Specialty Start Date End Date Willis Veras MD [address]16 [place] [address] PCP - General 05/03/21 Cole Ku MD [address] OF [facility] [place] [address] General Surgery 11/10/20 documented as of this encounter
--- OUTSIDE RECORDS SUMMARY | 2024-04-25 13:57 | XMS_ITS | Encounter Summary ---
Author Organization [facility] Address [address] [facility] [place] [address] Care Team Providers Care Mortuary Operations Manager Name Role Phone Cole Ku MD Unavailable Willis Veras MD Primary Care Provider Encounter Details Date Type Department Care Team (Late st Contact Info) Description 01/17/2023 9:00 AM CDT Procedure visit [facility] - GI 1225 [facility], [place] [address] Marlena Mccoy, SERVICE LOSS CONTROL CONSULTANT-RELIGIOUS HEALER [address] [place] [address] [facility] [place], [place] [phone] NAFLD (nonalcoholic fatty liver disease) Social History [...] No 12/05/2020 documented as of this encounter Procedure Notes * Zully [place] RN - 01/17/2023 9:30 AM CDTAssociated Order(s): PROC FIBROSCAN Procedure(s): ND LIVER ELASTOGRAPHY Pre-Procedure Diagnose(s): NAFLD (nonalcoholic fatty liver disease) Diagnosis: NAFLD RN verified patient NPO for prior 3 hours. Procedure explained. Date of Exam: 01/17/2023 Liver Stiffness: (LSM, kPa) median: 6.4 IQR/Median% (ideally < 30%): 6% CAP (controlled attenuation parameter): 275 Technical Difficulty: None Ordering Provider: BRINDA Guzman [...] patients with nonalcoholic fatty liver disease. Gastroenterology 2019;156:0680-0431. Iris MS, Abilio R, Van Natta ML, et al. Vibration-controlled transient elastography to assess fibrosis and steatosis in patients with nonalcoholic fatty liver disease. Clin Gastroenterol Hepatol 2019;17:156-163. Note that scores have been developed that incorporate the Fibroscan liver stiffness measurement from large cohorts of patients with liver biopsies to further refine the ability of Fibroscan to identify patients with LAMBERT and advanced fibrosis. These include the FAST (Fibroscan-AST) score (Cady, 2021) and the Agile3+ and Agile4 scores (Masha, 202). Cady TA, Van Natta ML, Reggie M, Elie A, et al. Validation of the accuracy of the FAST score for detecting patients with at-risk nonalcoholic steatohepatitis (LAMBERT) in a [facility] cohort andcomparison to other non- invasive algorithms. PLoS ONE (2021) 17: [id number]. Masha AJ, Curtis J, Zuri ZM, et al. Enhanced diagnosis of advanced fibrosis and cirrhosis in individuals with NAFLD using FibroScan-based Agile scores. J Hepatol (2022) 78: 247-259. Fibroscan LSM can also be used with laboratory parameters without formulas to assess prognosis. According to the Baveno-VII criteria (El, 2021), Fibroscan LSM <=15 kPa plus a platelet count of >=[id number]/L rules out clinically significant portal hypertension (sensitivity and negative predictive value >90%) in patients with compensated advanced chronic liver disease. El R, Luis J, Aris-Roseline G, Releila T, Shirley Frias on behalf of the Baveno VII Faculty. Baveno VII--Renewing consensus in portal hypertension. J Hepatol (2021) 76: 959-974 Assessing the likelihood of advanced fibrosis in patients with indeterminate liver stiffness measurement (LSM) by Fibroscan (e.g., 8-15 kPa) can be improved by also calculating the FIB-4 score (Darrel et al. Hepatology Communications 2019;3:9078-2018) or NAFLD Fibrosis score (Pitts et al. ClinicalGastroenterology and Hepatology 2019;17:5449-0043 using routine clinical data. Note: 1. Fibroscan cannot reliably identify earlier stages of fibrosis (ie distinguish F0 from F1 and F2)and thus a histologic stage cannot be predicted from the Fibroscan reading. 2. Liver stiffness can be increased by factors other than fibrosis including passive congestion, infiltrative processes, active alcoholism, recent moderate alcohol consumption in the 2 weeks before the exam, biliary obstruction and marked inflammation. The interpretation [...] was last updated 09/07/22.) [email or web address] documented in this encounter Plan of Treatment Upcoming Encounters Date Type Department Care Team (Late st Contact Info) Description 06/02/2024 10:30 AM STIPPLER Office Visit [facility] - Orthopedic Surgery 1031 [place] [address] Kevin Britton MD [address] [address] 08/10/2024 1:00 PM CDT Office Visit [facility] - BALANCE ENGINEER 1031 [facility] [address] [place] [address] Daja Mir MD 5408 [facility] [place] [address] 10/26/2024 1:00 PM CDT Office Visit [facility] - Hematology/Oncology 3655 [place] [address] Elizabeth Garcia MD 366 [facility] 3 [place] [address] 01/17/2025 12:30 PM CDT Procedure visit [facility] - GI 1225 [facility], [place] [address] 01/17/2025 1:00 PM CDT Office Visit [facility] [place] [address] [place] [address], [place] [phone] Marlena Mccoy, SERVICE LOSS CONTROL CONSULTANT-RELIGIOUS HEALER [address] [place] [address] [facility] [place] [address] documented as of this encounter Goals Goal Patient Goal Type Associated Problems Recent Progress Patient-Stated? Author Mobility General On track( 021 9:08 AM STIPPLER) No Tika Pope, RN Note: Expected end [...] Procedure Name Priority Date/Time Associated Diagnosis Comments ND LIVER ELASTOGRAPHY Routine 01/17/2023 9:30 AM CDT NAFLD (nonalcoholic fatty liver disease) documented in this encounter Visit Diagnoses Diagnosis NAFLD (nonalcoholic fatty liver disease)- Primary Other chronic nonalcoholic liver disease documented in this encounter Care Teams Mortuary Operations Manager Relationship Specialty Start Date End Date Willis Veras MD 6616 [place] [address] PCP - General 05/03/21 Cole Ku MD [address] [place] [address] General Surgery 11/10/20 documented as of this encounter
--- OUTSIDE RECORDS SUMMARY | 2024-04-25 13:58 | XMS_ITS | Encounter Summary ---
Author Organization [facility] Address [address] [facility] [place] [address] Care Team Providers Care Corporate Safety Coordinator Name Role Phone Cole Ku MD Unavailable Willis Veras MD Primary Care Provider Reason for Visit * Reason Onset Date Comments MEDICATION REFILL 11/22/2022 Encounter Details Date Type Department Care Team (Late st Contact Info) Description 11/22/2022 Refill [facility] - Orthopedic Surgery [facility]1 [place] [address] Kevin Britton MD 1031 [facility] 280 [place], [place] [phone] MEDICATION REFILL Social History Tobacco Use Types Packs/Day Years Used Date Smoking Tobacco: Never Smokeless Tobacco: Never Alcohol Use Standard Drinks/Week Comments Yes 0 (1 standard drink = 0.6 oz pur e alcohol) ocassional weekends AUDIT-C Answer Date Recorded Frequency of Alcohol Consumption 2-4 times a fri03/10/2019 Average Number of Drinks Not on file 019 Frequency of Binge Drinking Not on file 10/2018 Hunger Vital Sign Answer Date Recorded Within [...] Contact Info) Description 06/02/2024 10:30 AM CLINICAL APPLICATIONS SPECIALIST Office Visit [facility] - Orthopedic Surgery 1031 [place] [address] Kevin Britton MD 1031 [facility] 280 [place] [address] 08/10/2024 1:00 PM CDT Office Visit [facility] - UNIT SUPERVISOR 1031 [facility] 400 [place] [address] Daja Mir MD 6821 [facility] [place] [address] 10/26/2024 1:00 PM CDT Office Visit [facility] - Hematology/Oncology 9468 [place] [address] Elizabeth Garcia MD 2390 [facility] 3 [place] [address] 01/17/2025 12:30 PM CDT [place] [facility] [place] [address] [place] [address], [facility] [place] [address] 01/17/2025 1:00 PM CDT Office Visit [facility] - GI 1225 [facility], [place] [address] Marlena Mccoy, SIGN WRITER LETTERER OR PAINTER-SENIOR RESIDENT CARE DIRECTOR 1225 [facility] [address]FL [place] [address] documented as of this encounter Goals Goal Patient Goal Type Associated Problems Recent Progress Patient-Stated? Author Mobility General On track( 021 9:08 AM CLINICAL APPLICATIONS SPECIALIST) No Tika Pope, RN Note: Expected [...] leg documented in this encounter Care Teams Corporate Safety Coordinator Relationship Specialty Start Date End Date Willis Veras MD 6616 [place] [address] PCP - General 05/03/21 Cole Ku MD 1225 [facility] 2L [place] [address] General Surgery 11/10/20 documented as of this encounter
--- OUTSIDE RECORDS SUMMARY | 2024-04-25 13:58 | XMS_ITS | Encounter Summary ---
Author Organization [facility] Address [address] [facility] [place] [address] Care Team Providers Care Can Reforming Machine Operator Name Role Phone Cole Ku MD Unavailable Willis Veras MD Primary Care Provider Reason for Referral * Radiology Services (Routine) - Closed Specialty Diagnoses / Procedures Referred By Contac fran Referred To Contact Hematology-Oncology Diagnoses Encounter for monitoring tamoxifen therapy History of breast cancer Procedures MAMMO BILAT SCREENING W Araseli Hale MD [address] [place] [address] Referral ID Status Reason Start Date Expiration Date Visits Re quested Visits Authorized [id number] Closed 10/24/2022 10/24/2023 1 1 Reason for Visit * Radiology Services (Routine) - Closed Specialty Diagnoses / Procedures Referred By Americo peters Referred To Contact Hematology-Oncology Diagnoses Encounter for monitoring tamoxifen therapy History of breast cancer Procedures MAMMO BILAT SCREENING W Araseli Hale MD [address] [place] [address] Referral ID Status Reason Start Date Expiration Date Visits Re quested Visits Authorized [id number] Closed 10/24/2022 10/24/2023 1 1 Encounter Details Date Type Department Care Team (Latest Contact Info) Description 10/21/2022 10:58 AM CDT - 10/21/2022 11:34 AM CDT Hospital Encounter [facility] 0[address] [place] [address] Araseli Byers MD [address] [place] [address] Discharge Disposition: Home or Self Care Social [...] 1 (one) tablet by mouth once daily Vitamin D3, cholecalciferol, 50 MCG (1999) tabletIndications:Vitamin D deficiency, unspecified Take 1 tablet by mouth once daily 90 tablet 2 03/23/2019 celecoxib (CeleBREX) 50 MG capsuleIndications:S/P TKR (total knee replacement), left,Primary osteoarthritis of left knee Take 2 (two) capsules by mouth once daily 60 capsule 1 09/23/2022 11/22/2022 documented as of this encounter Plan of Treatment Upcoming Encounters Date Type Department Care Team (Late st Contact Info) Description 06/02/2024 10:30 AM GAS OR WATER METER INSTALLER Office Visit [facility] - [facility]opedic Surgery [facility]1 [place] [address] Kevin Britton MD 1031 [facility] 280 [place] [address] 08/10/2024 1:00 PM CDT Office Visit [facility] - CREDIT ADVISOR 1031 [facility] 400 [place] [address] Daja Mir MD 2402 [place] [address] 10/26/2024 1:00 PM CDT Office Visit [facility] - Hematology/Oncology 64[address] [place] [address] Elizabeth Garcia MD 5846 [facility] 3 [place] [address] 01/17/2025 12:30 PM CDT Procedure visit [facility] - GI [address] [place] [phone] 01/17/2025 1:00 PM CDT Office Visit [facility] - GI [address] [place] [phone] Darius Marlena N, EDGING MACHINE OPERATOR-SCHOOL PHYSICAL THERAPIST [address] [place] [address] documented as of this encounter Goals Goal Patient Goal Type Associated Problems Recent Progress Patient-Stated? Author Mobility General On track( 021 9:08 AM GAS OR WATER METER INSTALLER) No Tika Pope, RN Note: Expected end [...] Priority Date/Time Associated Diagnosis Comments MAMMO BILAT SCREENING W [place] Routine 10/21/2022 11:25 AM CDT Encounter for monitoring tamoxifen therapy History of breast cancer documented in this encounter Results * MAMMO BILAT SCREENING W [place] (10/21/2022 11:25 AM CDT) Anatomical Region Laterality Modality Breast [...] SCREENING W [place] AND WITH CAD LOCATION: [facility] EXAM DATE: ??10/21/2022 HISTORY: ??Screening. Personal [...] left breast. Araseli Byers MD MAMMO ORDERABLES documented in this encounter Visit Diagnoses Diagnosis Encounter for monitoring tamoxifen therapy Encounter for therapeutic drug monitoring History of breast cancer Personal history of malignant neoplasm of breast documented in this encounter Care Teams Can Reforming Machine Operator Relationship Specialty Start Date End Date Willis Veras MD [address] [place] [address] PCP - General 05/03/21 Cole Ku MD [address] OF [facility] [place] [address] General Surgery 11/10/20 documented as of this encounter
--- OUTSIDE RECORDS SUMMARY | 2024-04-25 13:58 | XMS_ITS | Encounter Summary ---
Author Organization [facility] Address [address] [facility] [place] [address] Care Team Providers Care Channel Marketing Manager Name Role Phone Cole Ku MD Unavailable Willis Veras MD Primary Care Provider Reason for Visit * Reason Onset Date Comments MEDICATION REFILL 01/15/2023 Encounter Details Date Type Department Care Team (Late st Contact Info) Description 01/15/2023 Refill [facility] - Orthopedic Surgery [facility] [place] [address] Danay Harrell, KENNEL ASSISTANT REFILL Social History Tobacco Use Types Packs/Day [...] st Contact Info) Description 06/02/2024 10:30 AM FOURTH OFFICER Office Visit [facility] - Orthopedic Surgery 1031 [place] [address] Kevin Britton MD 1031 [facility] 280 [place] [address] 08/10/2024 1:00 PM CDT Office Visit [facility] - PLASTIC SURGERY ASSISTANT 1031 [facility] 400 [place] [address] Daja Mir MD 5703 [facility] [place] [address] 10/26/2024 1:00 PM CDT Office Visit [facility] - Hematology/Oncology [address] [place] [address] Elizabeth Garcia MD 3669 [facility] 3 [place] [address] 01/17/2025 12:30 PM CDT Procedure [place] [facility] [place] [address] [place] [address] 01/17/2025 1:00 PM CDT Office Visit [facility] - GI [address] [place] [address], [place] [address] Darius Marlena Pedro, HUMAN RESOURCES RECEPTIONIST-DIAGNOSTIC TECH 1225 [facility] 3[address] [place] [address] documented as of this encounter Goals Goal Patient Goal Type Associated Problems Recent Progress Patient-Stated? Author Mobility General On track( 021 9:08 AM FOURTH OFFICER) No Tika Pope, RN Note: Expected [...] leg documented in this encounter Care Teams Channel Marketing Manager Relationship Specialty Start Date End Date Willis Veras MD [address]16 [place] [address] PCP - General 05/03/21 Cole Ku MD 1225 [facility] 2L [place] [address] General Surgery 11/10/20 documented as of this encounter
--- OUTSIDE RECORDS SUMMARY | 2024-04-25 13:58 | XMS_ITS | Encounter Summary ---
Author Organization [facility] Address [address] [place] [address] Care Team Providers Care Manager Winter Name Role Phone Cole Ku MD Unavailable Willis Veras MD Primary Care Provider Reason for Visit * Auth/Cert (Routine) Specialty Diagnoses / Procedures Referred By Americo t Referred To Contact Diagnoses Diagnosis unknown Diagnosis unknown [R69] Procedures HYSTEROSCOPY WITH DILATION & CURETTAGE Referral ID Status Reason Start Date Expiration Date Visits Re quested Visits Authorized [id number] 1 1 Encounter Details Date Type Department Care Team (Late st Contact Info) Description 10/16/2022 7:27 AM CDT Anesthesia Event [facility] [address] [place] [address] Kevin Walters, DO [address] [facility] [place] [address] Nedra Correia, PANAMA HAT SMEARER-CHICK GRADER [address] [facility] [place] [address] Anesthesia Record Procedure Summary Procedure Name Responsible Anesthesiologist Anesthesia Start Time Anesthesia Stop Time HYSTEROSCOPY WITH DILATION & CURETTAGE, INTRAUTERINE DEVICE PLACEMENT (Vagina ) Kevin Walters DO 10/16/22 0727 10/16/22 0837 Events Date Time Event Comment 10/16/2022 0700 0727 An Start 0727 An Start Data 0732 PT Reassessment 0734 Induction 0734 An LMA 0752 Timeout Anesthesia part icipated in timeout at the time documented in the record by nursing. 0829 An LMA Removed Spontaneous r espirations with adequate TV and RR. LMA removed. Suctioned. Exchanges well. FM with O2 applied. 0832 an stop data 0832 Electnc Sig This record is electronically signed by the providers listed under staff. 0833 ANPTO2 0837 An Stop Meds Name Total midazolam 2 mg/2mL injection 2 mg fentaNYL 100 mcg/2mL injection 50 mcg lidocaine 2% injection (20 mg/ml) 50 mg propofol 200mg/20mL injection 150 mg dexamethasone 4 mg/ml injection 8 mg ondansetron 4 mg/2mL injection 4 mg ketorolac 30 mg/ml injection 30 mg dexmedeTOMIDine HCl (Precedex) injection 20 mcg lactated ringers infusion 1,000 mL * Agents Name Insp. N2O Exp. Sevoflurane Exp. N2O O2 Air Insp. Sevoflurane N2O * Blood No blood administrations on file. Lines, Drains, and Airways Type Details Placement Removal Peripheral IV Date: 10/16/22; Time: 622; Orientation: Right; Placed By: Rayo Bentley RN; Tolerance: Well 10/16/22 0623 by Norma Bentley RN 10/16/22 1045 by Kimberly Caldwell, SABRINA Procedural Site (Incision) 10/16/22; 0757; Vagina; 10/16/22; 1701 10/16/22 0757 by Daja Che RN 10/16/22 1701 by Generic, Auto Release documented in this encounter Social History Tobacco [...] as of this encounter Progress Notes * Kevin Walters, DO - 10/16/2022 9:58 AM CDT ANESTHESIA POSTOP EVALUATION NOTE Procedure: HYSTEROSCOPY WITH DILATION & CURETTAGE, INTRAUTERINE DEVICE PLACEMENT (Vagina ) Milagros Torres is a 57 year old female Patient Vitals for the past 6 hrs: BP Temp Pulse Resp SpO2 Pain Rating Score #1 Pain Scale/Observation 10/16/22 0602 143/78 97.4 ??F (36.3 ??C) 58 18 99 % 0 N 10/16/22 0834 -- 97.2 ??F (36.2 ??C) -- -- -- 0 B 10/16/22 0840 116/70 -- 62 18 100 % -- -- 10/16/22 0845 124/65 -- 63 14 93 % 0 N 10/16/22 0850 122/72 -- 59 12 99 % -- -- 10/16/22 0855 126/57 -- 63 13 99 % -- -- 10/16/22 0900 113/67 -- 55 18 93 % 0 N 10/16/22 0901 113/67 -- 54 17 98 % -- -- 10/16/22 0905 133/78 -- 64 21 98 % -- -- 10/16/22 0910 125/71 -- 52 12 97 % -- -- 10/16/22 0915 125/71 -- 54 14 100 % 0 N 10/16/22 0930 131/85 97.1 ??F (36.2 ??C) 53 16 100 % 0 N Anesthesia Type: general LMA Mental Status: awake, sufficiently recovered from acute administration of anesthesia to participatein the evaluation and neurologic status has returned to expected level of consciousness Respiratory Function: natural Cardiac Function: stable Postop Pain: adequate Postop Hydration: adequate Postop Nausea: none Assessment: no apparent anesthetic complications, patient tolerated procedure well and no evidence of recall Patient Disposition: Release from Anesthesia Care NOTABLE EVENTS: No notable events documented. * Kevin Walters DO - 10/16/2022 6:58 AM CDT ANESTHESIA PREOPERATIVE EVALUATION NOTE Procedure: HYSTEROSCOPY WITH DILATION & CURETTAGE, LILETTA INTRAUTERINE DEVICE PLACEMENT (Vagina ) NPO status: Since Midnight; *Except Oral meds with H2O (10/16/2022 6:04 AM) Last Clear Liquids: 0605 (10/16/2022 6:04 AM) Vitals: Patient Vitals for the past 6 hrs: BP Temp Pulse Resp SpO2 Pain Rating Score #1 10/16/22 0602 143/78 97.4 ??F (36.3 ??C) 58 18 99 % 0 LMP: No LMP recorded. Patient is postmenopausal. OB Status: Postmenopausal ANESTHESIA PRE-EVALUATION NOTE The patient is a current non-smoker. Physical Exam: Orientation X3 Airway/Mallampati Score: II Mouth Opening Distance: 3 fingerwidths Neck ROM: limited TM Distance: < 3 FB Teeth: normal Heart: normal - S1 S2 Lungs: clear to ausculation bilaterally Review of Systems: History of anesthetic complications: No GERD: Yes, well controlled ANESTHESIA PLAN ASA Score: 3 (Class I obesity, HTN, CKD, anxiety, GERD) NPO Status: No solids since midnight and No liquids within 2 hours Anesthesia Plan: MAC and general LMA (Possible MAC or GA) Planned Induction: intravenous Planned Postop Destination: PACU Anesthetic plan was discussed with: patient Anesthetic Plan discussion was: Consented BMI, Height, Weight Tobacco History Estimated body mass index is 32.11 kg/m?? as calculated from the following: Height as of this encounter: 1.702 m (5' 7 ). Weight as of this encounter: 93 kg (205 lb). Social History Tobacco Use Smoking Status Never Smokeless Tobacco Never Vaping Use ??? Vaping Use: Never used Alcohol History Drug History Social History Substance and Sexual Activity Alcohol Use Yes Comment: ocassional weekends Social History Substance and Sexual Activity Drug Use Never Outpatient Medications: Inpatient Medications: Outpatient Medications Marked as Taking for the 10/16/22 encounter (Hospital Encounter) Medication Sig Last Dose ??? calcium Take 1 tablet by mouth daily with food 10/15/2022 ??? celecoxib Take 2 (two) capsules by mouth once daily 10/07/2022 ??? famotidine Take 1 (one) tablet by mouth once daily 10/16/2022 at 0400 ??? losartan - hydroCHLOROthiazide Take 1 (one) tablet by mouth once daily 10/16/2022 at 0400 ??? Vitamin D3 (cholecalciferol) Take 1 tablet by mouth once daily 10/15/2022 Current Facility-Administered Medications Medication Dose Last Admin ??? 0.9% NaCl 3 mL And ??? 0.9% NaCl 1-10 mL ??? lactated ringers New Bag at 10/16/22 0625 ??? lidocaine 0.2 mL 0.2 mL at 10/16/22 0610 ??? scopolamine 1 patch 1 patch at 10/16/22 0610 And ??? scopolamine patch placement confirmation Allergies: No Known Allergies Relevant Problems No relevant active problems Problem List: Patient Active Problem List Diagnosis Date Noted ??? S/P total knee arthroplasty, left 02/01/2022 Priority: Not Prioritized ??? NAFLD (nonalcoholic fatty liver disease) 05/15/2020 Priority: Not Prioritized 11/10/20 Fibroscan CAP 332, LSM 9.4 kPa ??? Depression 11/17/2015 Priority: Not Prioritized ??? Anxiety 09/19/2015 Priority: Not Prioritized ??? Malignant neoplasm of upper-inner quadrant of left breast in female, estrogen receptor positive(CMS/HCC) 07/27/2015 Priority: Not Prioritized ??? Benign essential HTN 07/21/2015 Priority: Not Prioritized Medical History: Past Medical History: Diagnosis Date ??? Arthropathy ??? Breast cancer (CMS/HCC) ??? CKD (chronic kidney disease) ??? Depression with anxiety ??? Disorder of liver NAFLD ??? Gallstones ??? Hypertension required meds when getting radiation for breast CA. No longer requiring meds ??? Malignancy (CMS/HCC) breast left ??? Valvular heart disease heart murmur Surgical History: Past Surgical History: Procedure Laterality Date ??? [...] PMB in the s/o tamoxifen use ??? 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 Patient is postmenopausal. Postmenopausal OB History Para Term AB Living 3 0 0 0 0 0 SAB IAB Ectopic Multiple Live Births 0 0 0 0 0 # Outcome Date GA Lbr Fabiano/2nd Weight Sex Delivery Anes PTL Lv 3 2 1 Covid Vaccine: Lab Results: No results found for requested labs within last 120 days. No results found for requested labs within last 120 days. documented in this encounter Miscellaneous Notes * Anesthesia Transfer of Care - Nedra Correia APRN-CHICK GRADER - 10/16/2022 8:40 AM CDT ANESTHESIA TRANSFER OF CARE NOTE Today's Date: 10/16/2022 Date of : 1965 Patient: Milagros Torres Procedure(s): HYSTEROSCOPY WITH DILATION & CURETTAGE, INTRAUTERINE DEVICE PLACEMENT Surgeon(s): Primary: Cole Garcia MD Resident - Assisting: Kiki Dawn MD Preop Diagnosis: Pre-op Diagnois: * Diagnosis unknown [R69] Pre-op Meds (From admission, onward) Start Stop Status Route Frequency Ordered 10/16/22 0542 0.9% NaCl injection 1-10 mL See Hyperspace for full Linked Orders Report. -- Dispensed IK PRN 10/16/22 0542 10/16/22 0600 0.9% NaCl injection 3 mL See Hyperspace for full Linked Orders Report. -- Dispensed IK EVERY 8 HOURS 10/16/22 0542 10/16/22 0825 0.9% nacl irrigation solution 10/16/22 0833 Completed CONTINUOUS PRN 10/16/22 0825 10/16/22 0545 acetaminophen (Tylenol) tablet 1,000 mg 10/16/22 0611 Completed PO ONCE 10/16/22 0542 10/16/22 0837 fentaNYL (PF) (Sublimaze) injection 50 mcg -- Verified IV EVERY 3 MIN PRN 10/16/22 0837 10/16/22 0545 gabapentin (Neurontin) capsule 300 mg 10/16/22 0611 Completed PO ONCE 10/16/22 0542 10/16/22 0837 HYDROmorphone (Dilaudid) injection 0.5 mg -- Verified IV EVERY 5 MIN PRN 10/16/22 0837 10/16/22 0545 lactated ringers infusion -- Verified IV CONTINUOUS 10/16/22 0542 10/16/22 0845 lactated ringers infusion -- Verified IV CONTINUOUS 10/16/22 0837 10/16/22 0544 lidocaine PF (Xylocaine MPF) 1 % injection 0.2 mL -- Verified INFILTRATION PRE-OP MULTIPLE 10/16/22 0544 10/16/22 0837 morphine injection 2 mg -- Verified IV EVERY 15 MIN PRN 10/16/22 0837 10/16/22 0837 naloxone (Narcan) injection 0.04 mg -- Verified IV POST-OP MULTIPLE 10/16/22 0837 10/16/22 0545 ondansetron (disintegrating) (Zofran ODT) tablet 4 mg 10/16/22 0611 Completed PO ONCE 10/16/22 0542 10/16/22 0739 ondansetron (Zofran) injection 4 mg -- Verified IV ONCE PRN 10/16/22 0739 10/16/22 0542 scopolamine (Transderm-Scop) 1 patch See Hyperspace for full Linked Orders Report. 10/19/22 0610 Verified TD EVERY 72 HOURS 10/16/22 0542 10/16/22 0900 scopolamine patch placement confirmation See Hyperspace for full Linked Orders Report. 10/19/22 0859 Verified TD 2 TIMES DAILY 10/16/22 0542 Post-op Diagnosis: * Diagnosis unknown [R69] . No Known Allergies Vitals: Patient Vitals for the past 3 hrs: BP Temp Pulse Resp SpO2 Pain Rating Score #1 10/16/22 0834 -- 97.2 ??F (36.2 ??C) -- -- -- -- 10/16/22 0602 143/78 97.4 ??F (36.3 ??C) 58 18 99 % 0 Lines, Drains, and Airways Type Details Placement Removal Peripheral IV Date: 10/16/22; Time: 622; Orientation: Right; Location: Antecubital; Placed By: Rayo Bentley RN; Gauge: 20 Gauge; Locals: Injectable; Tolerance: Well 10/16/22622 by Norma Bentley RN Intraprocedure I/O Totals Intake lactated ringers infusion 1000.00 mL Total Intake 1000 mL Pt Instructions VIRAJ Morgan * Anesthesia Transfer of Care - Nedra Correia APRN-CRNA - 10/16/2022 8:39 AM CDT ANESTHESIA TRANSFER OF CARE NOTE Today's Date: 10/16/2022 Date of : 1965 Patient: Milagros Torres Procedure(s): HYSTEROSCOPY WITH DILATION & CURETTAGE, INTRAUTERINE DEVICE PLACEMENT Surgeon(s): Primary: Cole Garcia MD Resident - Assisting: Kiki Dawn MD Preop Diagnosis: Pre-op Diagnois: * Diagnosis unknown [R69] Pre-op Meds (From admission, onward) Start Stop Status Route Frequency Ordered 10/16/22 0542 0.9% NaCl injection 1-10 mL See Hyperspace for full Linked Orders Report. -- Dispensed IK PRN 10/16/22 0542 10/16/22 0600 0.9% NaCl injection 3 mL See Hyperspace for full Linked Orders Report. -- Dispensed IK EVERY 8 HOURS 10/16/22 0542 10/16/22 0825 0.9% nacl irrigation solution 10/16/22 0833 Completed CONTINUOUS PRN 10/16/22 0825 10/16/22 0545 acetaminophen (Tylenol) tablet 1,000 mg 10/16/22 0611 Completed PO ONCE 10/16/22 0542 10/16/22 0837 fentaNYL (PF) (Sublimaze) injection 50 mcg -- Verified IV EVERY 3 MIN PRN 10/16/22 0837 10/16/22 0545 gabapentin (Neurontin) capsule 300 mg 10/16/22 0611 Completed PO ONCE 10/16/22 0542 10/16/22 0837 HYDROmorphone (Dilaudid) injection 0.5 mg -- Verified IV EVERY 5 MIN PRN 10/16/22 0837 10/16/22 0545 lactated ringers infusion -- Verified IV CONTINUOUS 10/16/22 0542 10/16/22 0845 lactated ringers infusion -- Verified IV CONTINUOUS 10/16/22 0837 10/16/22 0544 lidocaine PF (Xylocaine MPF) 1 % injection 0.2 mL -- Verified INFILTRATION PRE-OP MULTIPLE 10/16/22 0544 10/16/22 0837 morphine injection 2 mg -- Verified IV EVERY 15 MIN PRN 10/16/22 0837 10/16/22 0837 naloxone (Narcan) injection 0.04 mg -- Verified IV POST-OP MULTIPLE 10/16/22 0837 10/16/22 0545 ondansetron (disintegrating) (Zofran ODT) tablet 4 mg 10/16/22 0611 Completed PO ONCE 10/16/22 0542 10/16/22 0739 ondansetron (Zofran) injection 4 mg -- Verified IV ONCE PRN 10/16/22 0739 10/16/22 0542 scopolamine (Transderm-Scop) 1 patch See Hyperspace for full Linked Orders Report. 10/19/22 0610 Verified TD EVERY 72 HOURS 10/16/22 0542 10/16/22 0900 scopolamine patch placement confirmation See Hyperspace for full Linked Orders Report. 10/19/22 0859 Verified TD 2 TIMES DAILY 10/16/22 0542 Post-op Diagnosis: * Diagnosis unknown [R69] . No Known Allergies Vitals: Patient Vitals for the past 3 hrs: BP Temp Pulse Resp SpO2 Pain Rating Score #1 10/16/22 0834 -- 97.2 ??F (36.2 ??C) -- -- -- -- 10/16/22 0602 143/78 97.4 ??F (36.3 ??C) 58 18 99 % 0 Lines, Drains, and Airways Type Details Placement Removal Peripheral IV Date: 10/16/22; Time: 622; Orientation: Right; Location: Antecubital; Placed By: Rayo Bentley RN; Gauge: 20 Gauge; Locals: Injectable; Tolerance: Well 10/16/22622 by Norma Bentley RN Intraprocedure I/O Totals Intake lactated ringers infusion 1000.00 mL Total Intake 1000 mL Patient Transfer Location: PACU Transport Airway: spontaneous respirations and supplemental O2 Complications: None Handoff Given? Yes Checklist or [...] of report from the receiving PACUteam. VIRAJ Morgan documented in this encounter Plan of Treatment Upcoming Encounters Date Type Department Care Team (Late st Contact Info) Description 06/02/2024 10:30 AM WWE WRESTLER Office Visit [facility] - Orthopedic Surgery [address] [place] [address] Kevin Britton MD [address] [facility] [address] [place] [address] 08/10/2024 1:00 PM CDT [facility] TRAINING DEVELOPMENT DIRECTOR [address] [facility] [address] [place] [address] Daja Mir MD [address] [place] [address] 10/26/2024 1:00 PM CDT Office Visit [facility] - Hematology/Oncology [address] [place] [phone] Elizabeth Garcia MD [address] [facility] [address] [place] [address] 01/17/2025 12:30 PM CDT Procedure visit [facility] [place] [address] [place] [address], [place] [phone] 01/17/2025 1:00 PM CDT Office Visit [facility] - GI [address] [place] [phone] Marlena Mccoy, PANAMA HAT SMEARER-SECONDARY SOCIAL STUDIES TEACHER [address] [place] [address] [facility] [place] [address] documented as of this encounter Goals Goal Patient Goal Type Associated Problems Recent Progress Patient-Stated? Author Mobility General On track( 021 9:08 AM WWE WRESTLER) No Tika Pope, RN Note: Expected end [...] MAR Action Action Date Dose Rate Site dexAMETHasone (Decadron) injection Intravenous, PRN, Starting on Fri10/16/22 at 0741, Until Fri10/16/22 at 0839, Anesthesia Intra-op $ Given 10/16/2022 7:41 AM CDT 8 mg dexmedeTOMIDine (Precedex) injection Intravenous, PRN, Starting on Fri10/16/22 at 0729, Until Fri10/16/22 at 0839, Anesthesia Intra-op $ Given 10/16/2022 7:29 AM CDT 20 mcg fentaNYL (PF) (Sublimaze) injection Intravenous, PRN, Starting on Fri10/16/22 at 0825, Until Fri10/16/22 at 0839, Anesthesia Intra-op $ Given 10/16/2022 8:25 AM CDT 50 mcg ketorolac (Toradol) injection Intravenous, PRN, Starting on Fri10/16/22 at 0820, Until Fri10/16/22 at 0839, Anesthesia Intra-op $ Given 10/16/2022 8:20 AM CDT 30 mg lactated ringers infusion Intravenous, CONTINUOUS PRN, Starting on Fri10/16/22 at 0727, Until Fri10/16/22 at 0839, Anesthesia Intra-op $ New Bag/Syringe 10/16/2022 8:22 AM CDT $ New Bag/Syringe 10/16/2022 7:27 AM CDT lidocaine HCl (PF) (Xylocaine MPF) 2 % injection Intravenous, PRN, Starting on Fri10/16/22 at 0734, Until Fri10/16/22 at 0839, Anesthesia Intra-op $ Given 10/16/2022 7:34 AM CDT 50 mg midazolam (Versed) injection Intravenous, PRN, Starting on Fri10/16/22 at 0725, Until Fri10/16/22 at 0839, Anesthesia Intra-op $ Given 10/16/2022 7:25 AM CDT 2 mg ondansetron (Zofran) injection Intravenous, PRN, Starting on Fri10/16/22 at 0757, Until Fri10/16/22 at 0839, Anesthesia Intra-op $ Given 10/16/2022 7:57 AM CDT 4 mg propofol (Diprivan) injection Intravenous, PRN, Starting on Fri10/16/22 at 0734, Until Fri10/16/22 at 0839, Anesthesia Intra-op $ Given 10/16/2022 7:34 AM CDT 150 mg documented in this encounter Care Teams Manager Winter Relationship Specialty Start Date End Date Willis Veras MD [address] [place] [address] PCP - General 05/03/21 Cole Ku MD [address] OF [facility] [place] [address] General Surgery 11/10/20 documented as of this encounter
--- OUTSIDE RECORDS SUMMARY | 2024-04-25 13:58 | XMS_ITS | Encounter Summary ---
Author Organization [facility] Address [address] [facility] [address] Care Team Providers Care Reimbursement Rep Name Role Phone Cole Ku MD Unavailable Willis Veras MD Primary Care Provider Reason for Visit * Auth/Cert (Routine) Specialty Diagnoses / Procedures Referred By Contac t Referred To Contact Diagnoses Diagnosis unknown Diagnosis unknown [R69] Procedures HYSTEROSCOPY WITH DILATION & CURETTAGE Referral ID Status Reason Start Date Expiration Date Visits Re quested Visits Authorized [id number] 1 1 Encounter Details Date Type Department Care Team (Late Contact Info) Description 10/16/2022 7:30 AM CDT - 10/16/2022 8:50 AM CDT Surgery [facility] [address] [place] [address] Cole Beard MD [facility] [place] [phone] HYSTEROSCOPY WITH DILATION & CURETTAGE, INTRAUTERINE DEVICE PLACEMENT Surgery Details Date/Time Status Location OR Service Patient Class Case Class Case Type Trauma Case? 10/16/2022 7:30 AM Posted [facility] MAIN OR OR 14 Gynecology Oncology Surgery Day Care Elective > 5 days Panel 1 Procedure LRB Anes Op Region Wound Class Comments HYSTEROSCOPY WITH DILATION & CURETTAGE, INTRAUTERINE DEVICE PLACEMENT N/A General Vagina Clean Contaminated Surgeon Surgeon Role Service Panel Cole Beard MD Primary Gynecology Oncology 1 Kiki Dawn MD Resident - Assisting Obstetrics 1 Special Needs NEEDS ANYI IUD - ORDERED FROM PHARMACY(DANIEL) 10/09 TM IUD confirmed in pharmacy - DL-W 10-14 documented in this encounter Social History Tobacco [...] Sign Reading Time Taken Comments Blood Pressure 122/72 10/16/2022 8:50 AM CDT Pulse 59 10/16/2022 8:50 AM CDT Temperature 36.2 ??C (97.2 ??F) 10/16/2022 8:34 AM CD T Respiratory Rate 12 10/16/2022 8:50 AM CDT Oxygen Saturation 99% 10/16/2022 8:50 AM CDT Inhaled Oxygen Concentration - - Weight 93 kg (205 lb) 10/16/2022 5:56 AM CDT Height 170.2 cm (5' 7 ) 10/16/2022 5:56 AM CDT Body Mass Index 32.11 10/16/2022 5:56 AM CDT documented in this encounter Functional [...] this encounter Discharge Instructions * Discharge Instructions* Kiki Dawn MD - 10/16/2022 8:46 AM CDT IUD Instructions After IUD placement, it is normal to have some cramping and bleeding. Ibuprofen will help relieve these cramps. You should have a follow-up visit in a few weeks to confirm that the IUD is in the correct position. You should also practice checking for the strings. To do this, place one or two fingers into the vagina and feel for the strings coming out of the cervix. If you have trouble with this, I can help you at your follow up visit. If infection occurs, it usually occurs within the first 21 days after placement. Signs of this would be fever, severe lower abdominal pain and vaginal discharge. If you think you have an infection, please call our office documented in this encounter Medications at Time [...] 09/23/2022 11/22/2022 documented as of this encounter H&P Notes * Yane Flores MD - 10/10/2022 11:40 AM CDT Pre Op Geology Professor Onc History & Physical Per chart review Pre-Operative Diagnosis: Simple endometrial hyperplasia Planned Procedure: HYSTEROSCOPY WITH DILATION & CURETTAGE, LILETTA INTRAUTERINE DEVICE PLACEMENT Surgeon: Cole Ramirez MD History: Milagros Torres is a 57 year old referred to me for simple endometrial hyperplasia. ?? Patient has a history of breast cancer treated in 2016 with surgery and radiation. She subsequentlystarted Tamoxifen. Patient developed post-menopausal bleeding in 2017 and 2018. Both episodes were evaluated with endometrial sampling and showed no evidence of malignancy or pre-cancerous lesions, per patient. During a recent pelvic exam, she had some bleeding in-office following her Pap. Her provider ordered an US. It showed an endometrial lining 5.2mm (reports not available, measurement in scanned clnic note). She underwent endometrial sampling that showed simple hyperplasia. She was referred for further recommendations. ?? Patient has had no vaginal bleeding since her last episode in 2019. Patient denies chest pain, SOB,abdominal or pelvic pain, constipation, diarrhea, hematochezia, dysuria, hematuria, nausea, and vomiting. Path 07/25/22 Fragmented proliferative endometrium (with blood and mucus), showing features of simple hyperplasiawithout atypia; and associated morule formation. Evidence of partial atrophic change is also noted. Initial result was disregarded and the report was revised following review of deeper sections. ?? 07/09/22 Pap: Negative for intra-epithelial lesion or malignancy PMH: Past Medical History: Diagnosis Date ??? [...] prep with Cheesman ??? Dilation and Curettage 2017 and 2019 for PMB in the s/o tamoxifen use ??? 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 Cancer - Lung Mother ??? Cancer - Breast Sister ??? Cancer - Prostate Brother SOC: Social History Socioeconomic History ??? Marital status: Spouse name: Not on file ??? Number of children: Not on file ??? Years of education: Not on file ??? Highest education level: Not on file Occupational History ??? Not on file Tobacco Use ??? Smoking status: Never ??? Smokeless tobacco: Never Vaping Use ??? Vaping status: Never Used Substance and Sexual Activity ??? Alcohol use: [...] Stability: Not on file No Known Allergies No current facility-administered medications for this encounter. Current Outpatient Medications Medication Sig Dispense Refill ??? acetaminophen (TYLENOL) 500 MG tablet Take 1 (one) tablet by mouth every 6 hours as needed for Fever or Pain Maximum allowable Acetaminophen amount = 4 Grams (4000 mg) / 24 hours. (Patient not taking: Reported on 08/12/2022) 40 tablet 0 ??? amoxicillin (Amoxil) 500 MG capsule Take 4 (four) capsules by mouth pre- Procedure once for 1 dose 4 capsule 0 ??? calcium 600 MG tablet Take 1 tablet by mouth daily with food 90 tablet 2 ??? celecoxib (CeleBREX) 50 MG capsule Take 2 (two) capsules by mouth once daily 60 capsule 1 ??? famotidine (Pepcid) 20 MG tablet Take 1 (one) tablet by mouth once daily ??? HYDROcodone-acetaminophen (Draper) 5-325 MG tablet Take 1 (one) tablet by mouth every 8 hours asneeded for Pain (Patient not taking: Reported on 08/12/2022) 21 tablet 0 ??? losartan - hydroCHLOROthiazide (Hyzaar) 50-12.5 MG tablet Take 1 (one) tablet by mouth once daily ??? tamoxifen (Nolvadex) 20 MG tablet Take 1 (one) tablet by mouth once daily (Patient not taking: Reported on 08/12/2022) 90 tablet 3 ??? Vitamin D3, cholecalciferol, 50 MCG (1999 UT) tablet Take 1 tablet by mouth once daily 90 tablet 2 Exam in office per chart review: BP 126/80 (BP SITE: RIGHT ARM, BP POSITION: SITTING, BP CUFF SIZE: 12) Pulse 75 Ht 1.702 m (5' 7 ) Wt 93.4 kg (205 lb 12.8 oz) SpO2 98% ECO Gen: NAD Neuro: Oriented x3 CV: RRR Lungs: CTAB Abd: Soft, non-tender, non-distended, no palpable masses Lymph: No supraclavicular adenopathy Pelvic: SSE: No vaginal or cervical lesions. No discharge or bleeding. BME: Uterus mobile and non-tender. No adnexal masses or tenderness. DANA: Deferred Lab Review: No results for input(s): ABORH in the last 73099 hours. Recent Labs Component Name 03/20/22 1036 02/02/22 0158 01/22/22 1015 08/06/21 1049 WBC 5.1 - 5.3 6.8 HGB 11.2* 9.1* 12.1 13.0 HCT 34.6* 27.7* 36.6 39.2 PLTCOUNT 173 - 178 182 Recent Labs Component Name 03/20/22 1036 01/22/22 1015 08/06/21 1049 SODIUM - 139 - POTASSIUM 3.7 3.8 3.9 CHLORIDE - 107 - CO2 21* 21* 24 BUN 15 20 17 CREATININE 1.07* 1.15* 1.02* GLUCOSE 147* 91 90 CALCIUM 9.3 9.4 9.6 Assessment/Plan: 57 year old with: simple endometrial hyperplasia Plan: HYSTEROSCOPY WITH DILATION & CURETTAGE, LILETTA INTRAUTERINE DEVICE PLACEMENT Risks and Benefits of surgery were reviewed with the patient during her last clinic appointment, including but not limited to: infection, bleeding, possible need for blood transfusion, damage to surrounding structures (bladder, bowel, ureters). Yane Flores MD 10/10/2022 11:40 AM Associated attestation - Cole Beard MD - 10/16/2022 6:42 AM CDT I have reviewed the above documentation. I have seen and examined the patient with the residents and care team. I agree with the evaluation and plan as outlined with the following additional information. Patient seen in preop. She had previously been counseled at length regarding options of surgery vs medical management. All questions answered before obtaining consent for D&C, hysteroscopy, placement of IUD, procedures as indicated. Plan for discharge following procedure. documented in this encounter OR Notes * OR Surgeon - Cole Beard MD - 10/16/2022 10:50 AM CDT Gynecologic Oncology Operative Note Preoperative Diagnosis: CAH/EIN Postoperative Diagnosis: Same Procedure: Dilation and curettage, hysteroscopy, placement of IUD Surgeon: COLE BEARD MD Ict Help Desk Officer: Sherri Dawn PGY4 Type of anesthesia: General Complications: none EBL: 5 cc Indications for procedure: Patient is a 57yo with a history of breast cancer and recent diagnosis of EIN. She had been on Tamoxifen for six years prior to her diagnosis. Patient had two episodes of PMB while on Tamoxifen that were evaluated and found to be benign. She had bleeding at the time of a recent Pap, which prompted an US and EMB. Initial EMB showed simple hyperplasia, but re-review of pathology demonstrated EIN. Patient was taken off of Tamoxifen given >5yr of treatment. She was counseled at length regarding treatment options. While surgical intervention would be standard for patients with EIN, she was offered medical management as an option given the recent cessation of Tamoxifen, which was the likely etiology of her pathologic findings. Case was discussed with her Medical Oncologist who noted an increase risk in breast cancer with levonorgestrel IUDs, but ultimately felt the risk was low enough to not be a contraindication to medical therapy. After extensive counseling of the above options and associated risks, patient elected to undergo trial of medical management. Findings: Normal vagina and cervix. Uterine cavity with few areas of thicker endometrium, but largely atrophic. Re-examination after D&C demonstrated removal of thickened tissue. Morphology of cavity consistent with arcuate uterus. No evidence of perforation on hysteroscopy. Operative Details: After informed consent was obtained the patient was taken to the operating room with IVF running. After induction of anesthesia, the patient was placed in dorsal lithotomy position with legs in Allenstirrups. She was prepped and draped in the usual sterile fashion. The bladder was drained. A bivalve speculum was inserted into the vagina and the anterior lip of the cervix grasped with a single tooth tenaculum. The cervix was gently dilated to accommodate a rigid 30 degree hysteroscope. The hysteroscope was introduced through the external os and used to inspect the endometrial cavity. The hysteroscope was removed and a gentle curettage was performed. Repeat hysteroscopy was performed. The lev onorgestrel IUD was placed per technology engineer instructions and the strings cut to 3cm (Style[employer], Lot [id number], Exp 06/2025). The tenaculum was removed and puncture sites were hemostatic after applying pressure. The patient tolerated the procedure well and was taken to recovery in stable condition. Instrument and sponge counts were correct x2. I was present for the entirety of the procedure. COLE BEARD MD * Brief Op Note - Kiki Dawn MD - 10/16/2022 7:57 AM CDT Brief Operative Note Patient: Milagros Torres Date: 10/16/2022, 8:38 AM Preoperative Diagnosis: focal CAH/EIN Postoperative Diagnosis: same as above Procedure: dilation and curettage, hysteroscopy, placement of IUD Surgeon: Cole Beard MD Ict Help Desk Officer: Kiki Dawn MD Type of anesthesia: General Complications: none EBL: 10 cc Urine output: 5 cc plus unmeasured voids prior to surgery Drains: none IV Fluids: crystalloid 1200 cc Brief findings: normal appearing uterine cavity with bilateral normal appearing ostia, arcuate appearing uterine fundus, normal appearing cervix Specimens: ID Type Source Tests Collected by Time Destination A : Pathology/Cytology Endometrium Curettings PATHOLOGY TISSUE EXAM (STL) Cole Beard MD 10/16/2022 0813 IUD: LOT # [id number], Expiration date 06/2025 Full operative note to follow Kiki Dawn MD 10/16/2022 8:38 AM documented in this encounter Plan of Treatment Upcoming Encounters Date Type Department Care Team (Late st Contact Info) Description 06/02/2024 10:30 AM DIRECTOR OF ENGINEERING Office Visit [facility] - Orthopedic Surgery [address] [place] [phone] Kevin Britton MD [address] [facility] [address] [place] [address] 08/10/2024 1:00 PM CDT Office Visit [facility] - 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 [address] [facility] [address] [place] [phone] Daja Mir MD [address] [place] [address] 10/26/2024 1:00 PM CDT Office Visit [facility] - Hematology/Oncology [address] [place] [phone] Elizabeth Beard MD [address] [facility] [address] [place] [address] 01/17/2025 12:30 PM CDT Procedure visit [facility] - GI [address] [place] [phone] 01/17/2025 1:00 PM CDT Office Visit [facility] - GI [address] [place] [address] [place] [phone] Marlena Mccoy Pedro, PIPELINE EXECUTIVE-SAMPLE CASE PORTER [address] [facility] [address] [place] [place] [address] documented as of this encounter Goals Goal Patient Goal Type Associated Problems Recent Progress Patient-Stated? Author Mobility General On track( 021 9:08 AM DIRECTOR OF ENGINEERING) No Tika Pope, RN Note: Expected end date: 05/05/2019 The goal is to maintain or improve your mobility at the optimum level for you. Interventions: Medication Management General On track( 9:48 AM CDT) No Saba Bailey, RN [...] Associated Diagnosis Comments CARDIAC RHYTHM STRIP ORDER 10/19/2022 12:17 AM CDT PATHOLOGY TISSUE EXAM (STL) Routine 10/16/2022 8:13 AM CDT Diagnosis unknown [place] HYSTEROSCOPY,W/ENDO BX 10/16/2022 6:40 AM CDT Diagnosis unknown Special Needs NEEDS LILETTA IUD - ORDERED FROM PHARMACY(DANIEL) 10/09 TM IUD confirmed in pharmacy - DL-W 10-14 BLOOD TYPE VERIFICATION Routine 10/16/2022 6:28 AM CDT Pre-op testing TYPE + SCREEN PANEL STAT 10/16/2022 6 :25 AM CDT documented in this encounter Results * CARDIAC RHYTHM STRIP ORDER (10/19/2022 12:17 AM CDT) Narrative 10/19/2022 12:17 AM CDT Ordered by an unspecified provider. Scanned Document CARDIAC SERVICES ORD ERABLES * PATHOLOGY TISSUE EXAM (STL) (10/16/2022 8:13 AM CDT) Case Report Surgical Pathology Report ? Case: [id number] ? Authorizing Provider: ??Cole Beard MD ?Collected: ? 10/16/2022 08:13 AM ? Ordering Location: ? [facility] ? Received: ?10/16/2022 09:03 AM ? Pathologist: ? Maxine Talbert MD ? Specimen: ?Endometrium Biopsy ? 10/17/2022 10:39 AM CDT [facility] Final Diagnosis Uterus, endometrium, curettage - Inactive endometrium and benign squamous epithelium with detached fragments of squamous morules, without evidence of hyperplasia or malignancy 10/17/2022 10:39 AM [facility] Clinical History The patient is a 57-year-old woman with history of endometrial hyperplasia. Operative procedure: dilation and curettage, placement of intrauterine device. 10/17/2022 10:39 AM CDT [facility] Gross Description The specimen is identified with patient's name and date of . Received in formalin, specimen ? A, endometrial curettings? is a 1.6 x 1.6 x 0.3 cm aggregate of purple red tissue and blood clot. Entirely submitted in cassette A1. LJ 10/17/2022 10:39 AM CDT [facility] Microscopic Description Microscopic examination substantiates the above diagnosis. 10/17/2022 10:39 AM CDT [facility] Pathologist Location at [facility] 10/17/2022 10:39 AM CDT [facility] Disclaimer All histochemical and/or immunohistochemical results are interpreted with controls that demonstrate appropriate staining reactions before reporting results. Note on use of immunocytochemistry reagents: This test was developed and its performance characteristic determined by [facility], Department of Laboratory Medicine. It has [...] tissues. Results should be interpreted with caution. 10/17/2022 10:39 AM CDT [facility] Embedded Images 10/17/2022 10:39 AM CDT [facility] Pathology/Cytolo gy OPEN BIOPSY OF ENDOMETRIUM / Unknown 10/16/2022 8:13 AM CDT 10/16/2022 9:03 AM CDT Comment:Pre-op diagnosis: Diagnosis unknown [R69] Cole Beard MD LAB - PATHOLOGY/CYTO LOGY ORDERABLES [facility] [address] [place] [address] * BLOOD TYPE VERIFICATION (10/16/2022 6:28 AM CDT) ABO Rh O POS 10/16/2022 7:0 3 AM CDT [facility] Blood Bank BLOOD SPECIMEN / Unknown Venipuncture / Unknown 10/16/2022 6:28 AM CDT 10/16/2022 6:32 AM CDT Kevin Walters DO LAB - BLOOD BANK [facility] Performing Organization Address [facility] Co de Phone Number [facility] [address] [place] [address] * TYPE + SCREEN PANEL (10/16/2022 6:25 AM CDT) ABO Rh O POS 10/16/2022 7:03 AM CDT [facility] Comment:No history; collect retype. Antibody Screen NEG 7:03 AM CDT [facility] Blood Bank BLOOD SPECIMEN / Unknown Venipuncture / Unknown 10/16/2022 6:25 AM CDT 10/16/2022 6:27 AM CDT Cole Beard MD LAB - BLOOD BANK [facility] Performing Organization Address [facility] de Phone Number [facility] [address] [place] [address] documented in this encounter Visit Diagnoses Diagnosis Pre-op testing- Primary Preoperative examination, unspecified Diagnosis unknown Other unknown and unspecified cause of morbidity or mortality Postmenopausal bleeding Diagnosis unknown Other unknown and unspecified cause of morbidity or mortality documented in this encounter Administered Medications Inactive Administered Medications - up to 3 most recent administrations Medication Order MAR Action Action Date Dose Rate Site 0.9% NaCl injection 1-10 mL 1-10 mL, Intracatheter, PRN, Other, peripheral line flush, Starting on Fri10/16/22 at 0542, Until Fri10/16/22 at 1201, Flush peripheral IV catheter with 1-10 mL of normal saline before and after medications and prn to clear blood from the line or to verify patency., Pre-op 0.9% NaCl injection 3 mL 3 mL, Intracatheter, EVERY 8 HOURS, First dose on Fri10/16/22 at 0600, Until Discontinued, Flush peripheral IV catheter with 3 mL of normal saline every 8 hours., Pre-op 0.9% nacl irrigation solution CONTINUOUS PRN, Starting on Fri10/16/22 at 0825, Until Fri10/16/22 at 0833, Intra-op $ New Bag/Syringe 10/16/2022 8:25 AM CDT 300 mL Operative Site acetaminophen (Tylenol) tablet 1,000 mg 1,000 mg, Oral, ONCE, 1 dose, On Fri10/16/22 at 0545, Patient preference for lesser PRN pain meds may be honored when the patient requests a less strong medication, a lower dose, or a less intrusive route of administration when the lesser drug, dose and route have been ordered for the patient. This patient request must be documented in the MAR., Pre-op $ Given 10/16/2022 6:11 AM CDT 1,000 mg BUPivacaine PF (Marcaine PF) 0.5 % injection PRN, Starting on Fri10/16/22 at 0823, Until Fri10/16/22 at 0833, Intra-op $ Given 10/16/2022 8:23 AM CDT 20 mL Operative Site fentaNYL (PF) (Sublimaze) injection 50 mcg 50 mcg, Intravenous, EVERY 3 MIN PRN, Mild Pain, Starting on Fri10/16/22 at 0837, Until Fri10/16/22 at 1201, Maximum total of 4 doses. If patient [...] must be documented in the MAR., PACU gabapentin (Neurontin) capsule 300 mg 300 mg, Oral, ONCE, 1 dose, On Fri10/16/22 at 0545, Pre-op $ Given 10/16/2022 6:11 AM CDT 300 mg HYDROmorphone (Dilaudid) injection 0.5 mg 0.5 mg, Intravenous, EVERY 5 MIN PRN, Severe Pain, Starting on Fri10/16/22 at 0837, Until Fri10/16/22 at 1201, Maximum total of 4 doses If patient [...] must be documented in the MAR., PACU lactated ringers infusion at 50 mL/hr, Intravenous, CONTINUOUS, Starting on Fri10/16/22 at 0545, Until Fri10/16/22 at 1201, Pre-op $ New Bag/Syringe 10/16/2022 6:25 AM CDT 50 mL/hr lactated ringers infusion at 125 mL/hr, Intravenous, CONTINUOUS, Starting on Fri10/16/22 at 0845, Until Fri10/16/22 at 1201, PACU lidocaine PF (Xylocaine MPF) 1 % injection 0.2 mL 0.2 mL, Infiltration, PRE-OP MULTIPLE, 3 doses, Starting on Fri10/16/22 at 0544, Until Fri10/16/22 at 1201, May be used (0.2 ml locally to anesthetize prior to insertion)., Pre-op $ Given 10/16/2022 6:10 AM CDT 0.2 mL morphine injection 2 mg 2 mg, Intravenous, EVERY 15 MIN PRN, Moderate Pain, 5 doses, Starting on Fri10/16/22 at 0837, Until Fri10/16/22 at 1201, Maximum total of 5 doses. If patient reaches max total dose, [...] 0.04 mg, Intravenous, POST-OP MULTIPLE, Starting on Fri10/16/22 at 0837, Until Fri10/16/22 at 1201, If respiration rate is less than 7 per minute administer IV every 1 minute until respirations are greater than 12 per minute. Notify anesthesia immediately., PACU ondansetron (disintegrating) (Zofran ODT) tablet 4 mg 4 mg, Oral, ONCE, 1 dose, On Fri10/16/22 at 0545, Dissolved orally on tongue Dissolved orally on tongue, Pre-op $ Given 10/16/2022 6:11 AM CDT 4 mg ondansetron (Zofran) injection 4 mg 4 mg, Intravenous, ONCE PRN, Nausea/Vomiting, 1 dose, Starting on Fri10/16/22 at 0739, Until Fri10/16/22 at 1201, First choice scopolamine (Transderm-Scop) 1 patch 1 patch, Administer over 72 Hours, EVERY 72 HOURS, 1 dose, First dose on Fri10/16/22 at 0545, Apply patch behind the ear, do not [...] of scopolamine over 72 hours. $ Applied 10/16/2022 6:10 AM CDT 1 patch Behind Right Ear scopolamine patch placement confirmation Transdermal, 2 TIMES DAILY, 6 doses, First dose on Fri10/16/22 at 0900, Last dose on Fri10/18/22 at 2100, Patient has a patch to be confirmed on transition to inpatient and 2 times daily., Pre-op / Post-op documented in this encounter Active and Recently Administered Medications Times are shown in CDT. Scheduled Medication Order 10/14/2022 10/15/2022 10/16/2022 0.9% NaCl injection 3 mL(Linked Group 1) 3 mL, Intracatheter, EVERY 8 HOURS, First dose on Fri10/16/22 at 0600, Until Discontinued, Flush peripheral IV catheter with 3 mL of normal saline every 8 hours., Pre-op 0600 (Due) acetaminophen (Tylenol) tablet 1,000 mg (COMPLETED) 1,000 mg, Oral, ONCE, 1 dose, On Fri10/16/22 at 0545, Patient preference for lesser PRN pain meds may be honored when the patient requests a less strong medication, a lower dose, or a less intrusive route of administration when the lesser drug, dose and route have been ordered for the patient. This patient request must be documented in the MAR., Pre-op 0611 ($ Given - Prov ider: Norma Bentley RN) gabapentin (Neurontin) capsule 300 mg (COMPLETED) 300 mg, Oral, ONCE, 1 dose, On Fri10/16/22 at 0545, Pre-op 0611 ($ Given - Prov ider: Norma Bentley RN) lidocaine PF (Xylocaine MPF) 1 % injection 0.2 mL 0.2 mL, Infiltration, PRE-OP MULTIPLE, 3 doses, Starting on Fri10/16/22 at 0544, Until Fri10/16/22 at 1201, May be used (0.2 ml locally to anesthetize prior to insertion)., Pre-op 0610 ($ Given - Prov ider: Norma Bentley RN) naloxone (Narcan) injection 0.04 mg 0.04 mg, Intravenous, POST-OP MULTIPLE, Starting on Fri10/16/22 at 0837, Until Fri10/16/22 at 1201, If respiration rate is less than 7 per minute administer IV every 1 minute until respirations are greater than 12 per minute. Notify anesthesia immediately., PACU ondansetron (disintegrating) (Zofran ODT) tablet 4 mg (COMPLETED) 4 mg, Oral, ONCE, 1 dose, On Fri10/16/22 at 0545, Dissolved orally on tongue Dissolved orally on tongue, Pre-op 0611 ($ Given - Prov ider: Norma Bentley RN) scopolamine (Transderm-Scop) 1 patch(Linked Group 2) 1 patch, Administer over 72 Hours, EVERY 72 HOURS, 1 dose, First dose on Fri10/16/22 at 0545, Apply patch behind the ear, do not [...] 1 mg of scopolamine over 72 hours. 0610 ($ Applied - Pr ovider: Norma Bentley RN)1050 (Due: Removed - Provider: Generic, Auto Release - Comment: Time automatically adjusted from order being discontinued) scopolamine patch placement confirmation(Linked Group 2) Transdermal, 2 TIMES DAILY, 6 doses, First dose on Fri10/16/22 at 0900, Last dose on Fri10/18/22 at 2100, Patient has a patch to be confirmed on transition to inpatient and 2 times daily., Pre-op / Post-op 0900 (Due) Continuous Medication Order 10/14/2022 10/15/2022 10/16/2022 lactated ringers infusion at 50 mL/hr, Intravenous, CONTINUOUS, Starting on Fri10/16/22 at 0545, Until Fri10/16/22 at 1201, Pre-op 0625 ($ New Bag/Syri nge - Provider: Norma Bentley RN) lactated ringers infusion at 125 mL/hr, Intravenous, CONTINUOUS, Starting on Fri10/16/22 at 0845, Until Fri10/16/22 at 1201, PACU 0845 (Due) PRN Medication Order 10/14/2022 10/15/2022 10/16/2022 0.9% NaCl injection 1-10 mL(Linked Group 1) 1-10 mL, Intracatheter, PRN, Other, peripheral line flush, Starting on Fri10/16/22 at 0542, Until Fri10/16/22 at 1201, Flush peripheral IV catheter with 1-10 mL of normal saline before and after medications and prn to clear blood from the line or to verify patency., Pre-op 0.9% nacl irrigation solution (COMPLETED) CONTINUOUS PRN, Starting on Fri10/16/22 at 0825, Until Fri10/16/22 at 0833, Intra-op 0825 ($ New Bag/Syri nge - Provider: Cole Beard MD) BUPivacaine PF (Marcaine PF) 0.5 % injection (CANCELED) PRN, Starting on Fri10/16/22 at 0823, Until Fri10/16/22 at 0833, Intra-op 0823 ($ Given - Prov ider: Cole Beard MD) fentaNYL (PF) (Sublimaze) injection 50 mcg 50 mcg, Intravenous, EVERY 3 MIN PRN, Mild Pain, Starting on Fri10/16/22 at 0837, Until Fri10/16/22 at 1201, Maximum total of 4 doses. If patient [...] Intravenous, EVERY 5 MIN PRN, Severe Pain, Starting on Fri10/16/22 at 0837, Until Fri10/16/22 at 1201, Maximum total of 4 doses If patient [...] must be documented in the MAR., PACU morphine injection 2 mg 2 mg, Intravenous, EVERY 15 MIN PRN, Moderate Pain, 5 doses, Starting on Fri10/16/22 at 0837, Until Fri10/16/22 at 1201, Maximum total of 5 doses. If patient reaches max total dose, [...] must be documented in the MAR., PACU ondansetron (Zofran) injection 4 mg 4 mg, Intravenous, ONCE PRN, Nausea/Vomiting, 1 dose, Starting on Fri10/16/22 at 0739, Until Fri10/16/22 at 1201, First choice Linked Groups Order Group 1: SALINE LOCK, INSERT AND MAINTAIN (CANCELED) Routine, CONTINUOUS, Starting on Fri10/16/22 at 0545, Until Specified, Pre-op, New collection And 0.9% NaCl injection 3 mLJump to med 3 mL, Intracatheter, EVERY 8 HOURS, First dose on Fri10/16/22 at 0600, Until Discontinued, Flush peripheral IV catheter with 3 mL of normal saline every 8 hours., Pre-op And 0.9% NaCl injection 1-10 mLJump to med 1-10 mL, Intracatheter, PRN, Other, peripheral line flush, Starting on Fri10/16/22 at 0542, Until Fri10/16/22 at 1201, Flush peripheral IV catheter with 1-10 mL of normal saline before and after medications and prn to clear blood from the line or to verify patency., Pre-op Group 2: scopolamine (Transderm-Scop) 1 patchJump to med 1 patch, Administer over 72 Hours, EVERY 72 HOURS, 1 dose, First dose on Fri10/16/22 at 0545, Apply patch behind the ear, do not [...] TIMES DAILY, 6 doses, First dose on Fri10/16/22 at 0900, Last dose on Fri10/18/22 at 2100, Patient has a patch to be confirmed on transition to inpatient and 2 times daily., Pre-op / Post-op documented in this encounter Care Teams Reimbursement Rep Relationship Specialty Start Date End Date Willis Veras MD [address] [place] [address] PCP - General 05/03/21 Cole Ku MD [address] [facility] [address] [place] [id number] General Surgery 11/10/20 documented as of this encounter
--- OUTSIDE RECORDS SUMMARY | 2024-04-25 13:58 | XMS_ITS | Encounter Summary ---
Author Organization [facility] Address [address] [facility] [place] [address] Care Team Providers Care Bridge Painter Helper Name Role Phone Cole Ku MD Unavailable Willis Veras MD Primary Care Provider Reason for Visit * Reason Comments Fatty Liver Encounter Details Date Type Department Care Team (Late st Contact Info) Description 01/17/2023 9:30 AM CDT Office Visit [facility] - GI [address] [facility] [place] [id number] Marlena Mccoy, SALON DESIGNER-COMPLAINTS COORDINATOR [address] [facility] [address] [facility] GA[facility] [place], [place] [id number] NAFLD (nonalcoholic fatty liver disease) (Primary Dx) Social History Tobacco Use Types [...] Sign Reading Time Taken Comments Blood Pressure 142/79 01/17/2023 9:35 AM CDT Pulse 65 01/17/2023 9:35 AM CDT Temperature 36.2 ??C (97.2 ??F) 01/17/2023 9:35 AM CD T Respiratory Rate 18 01/17/2023 9:35 AM CDT Oxygen Saturation 100% 01/17/2023 9:35 AM CDT Inhaled Oxygen Concentration - - Weight 97.1 kg (214 lb) 01/17/2023 9:35 AM CDT Height - - Body Mass Index 33.52 01/07/2023 5:56 AM CDT documented in this encounter [...] this encounter Patient Instructions * Patient Instructions* Marlena Mccoy, CAMILLA-COMPLAINTS COORDINATOR - 01/17/2023 10:06 AM CDT Return to clinic in 1 year Lifestyle modification consisting of diet, exercise, and weight loss is necessary to treat Non alcoholic fatty liver disease. The data shows that overall weight loss is the huertas to improvement in the histopathological features of LAMBERT. A combination of a low calorie diet (daily reduction by 500-1,000 kcal) and moderate-intensity exercise provides the best chances of achieving and maintaining weight loss over time. Weight loss of at least 3%-5% of body weight appears necessary to improve steatosis, but a greater weight loss (7%-10%) is needed to improve the majority of the histopathological features of LAMBERT, including fibrosis. Dietary and exercise advice for fatty liver disease includes: A. Avoid all sugar sweetened beverages including soda pop and sweet tea. B. Eat real food (fruits vegetables meat fish) not processed foods C. Avoid foods labelled as light, low fat or fat free as they usually contain excess sugars D. Mediterranean diet is a great diet to follow for fatty liver. E. Black coffee can be beneficial for your liver. F. Eat when you are hungry. Don't eat when you are not. Eat slowly enjoy your food and listen to your body when it tells you you are full G. Limit grains, potatoes and sugar as they tend to be stored as fat and avoid trans fats (hydrogenated oils) because they are toxic to your body H. Goal to exercise is 3-4 times a week 45 minutes at a time (you may want to start with 15 minutesand add 3 minutes more every week till you hit the goal); discuss with your PCP before starting an exercise program. Exercise can be rapid walking, jogging, bicycling, aerobics, elliptical, treadmillor other cardio work outs. documented in this encounter Progress Notes * Marlena Mccoy APRN-CNP - 01/17/2023 9:36 AM CDT I saw Ms. Torres in [facility] at [facility] today for follow up visit regarding: Past Visit Note. clinic visit #1 05/12/2020?? Milagros Torres is a 54 year old female in clinic??for initial visit regarding elevated liver enzymes,hepatic steatosis. AST mildly elevated. HX of Breast Ca in 2016 on tamoxifen??for at least 10 years. No known prior liver disease. AST has been elevated for at least 1 year.? She is obese, weight today is 198lbs, BMI 31.?Today she reports intermittent RUQ pain with imaging revealing chololithiasis without acute cholecystitis. ??She wants cholecystectomy d/t this pain.? clinic visit #2 Milagros Torres is a 55 year old female in clinic for follow up regarding NAFLD. Liver enzyme normalization??since previous visit.??Fibroscan indicates moderate risk of advanced liver disease. She has lost??3 lbs??since last??visit. Today she weighs 195lbs??BMI 30.5. She contributes to??smaller portion sizes. She does enjoy pasta but doesn't eat as much. She has limited soda intake, she does drink sweet tea regularly. Exercise??includes none aside from physical labor at work including moving a lot of boxes. 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 She is scheduled to get cholecystectomy in December. She has occasional epigastric pain, contributes to soda.? clinic visit #3 Milagros Torres is a 55 year old female in clinic for follow up regarding??NALFD. She has no complaints today. She has more frequent acid reflux, no obvious food trigger, takes OTC medication on occasion. She has gained a few pounds from previous visit, she contributes to outfit. Weight was similar asprevious when seen by ortho last week. Exercise includes walking, lifting heavy boxes at work. 1 soda max per day otherwise drinks water throughout the day. clinic visit #4 ??Milagros Torres is s 56 year old female in clinic for follow up regarding NAFLD. Since last visit she has gained a few pounds from previous visit. She is scheduled for knee replacement on the of this month at [place] and hoping to be back in exercising once she recovers from surgery. Currently her knee is not allowing for exercise. She is drinking about 1 soda per day. She eats out a lot, d/t working 9 hours/day with [address] and from work. During the week her boyfriend is gonefor work (over the road sugar trucker) and she finds it easier to grab something quick. She usually cooks once he is home on the weekends. Today she denies any other complaints Chief Complaint Patient presents with ??? Fatty Liver Patient Active Problem List: Anxiety Benign essential HTN Depression Malignant neoplasm of upper-inner quadrant of left breast in female, estrogen receptor positive (CMS/HCC) NAFLD (nonalcoholic fatty liver disease) S/P total knee arthroplasty, left Interim history: ??Milagros Torres is s 57 year old female in clinic for follow up regarding NAFLD. Has had increased stress d/t health concerns-- has upcoming hysterectomy d/t precancerous cells in uterus. Also had abnormal mammogram that will require further evaluation. She has no symptoms of liver decompensation. She is drinking 1 soda per day, eats out often d/t convenience. Has no additionalconcerns today. Current Outpatient Medications Medication Sig ??? calcium 600 MG tablet Take 1 tablet by mouth daily with food ??? celecoxib (CeleBREX) 50 MG capsule Take 2 (two) capsules by mouth once daily ??? famotidine (Pepcid) 20 MG tablet Take 1 (one) tablet by mouth once daily ??? losartan - hydroCHLOROthiazide (Hyzaar) 50-12.5 MG tablet Take 1 (one) tablet by mouth once daily ??? Vitamin D3, cholecalciferol, 50 MCG (2000 UT) tablet Take 1 tablet by mouth once daily No current facility-administered medications for this visit. She describes her current alcohol consumption as no. Family history of liver disease: no Social History Social History Narrative ??? Not on file Review of systems: Chest pain: none. Shortness of breath: none. Nausea and vomiting: none. Constipation or diarrhea: none. Upper or lower GI bleeding: none. On exam today, she appeared obese, alert and anicteric. I reviewed today's vital signs with the patient. Vitals: 01/17/23 0935 BP: 142/79 Pulse: 65 Resp: 18 Temp: 97.2 ??F (36.2 ??C) SpO2: 100% Weight: 97.1 kg (214 lb) Body mass index is 33.52 kg/m??. Wt Readings from Last 3 Encounters: 01/17/23 97.1 kg (214 lb) 01/07/23 94.8 kg (209 lb) 11/07/22 94.8 kg (209 lb) . Lungs were clear to auscultation bilaterally. Heart sounds were regular rate and rhythm. There were no murmurs. Abdomen was obese, soft and nontender. Liver edge palpable: no. Spleen palpable: no. Ascites: none. Hernias: none. Pretibial edema: none. Relevant test results: Recent Labs Component Name 01/07/23 0608 12/30/22 0000 10/21/22 1203 03/20/22 1036 02/02/22 0158 01/22/22 1015 08/06/21 1049 07/03/20 1019 05/12/20 1028 TBILI - - 0.3 0.3 - - 0.4 - 0.5 TBIL - 0.3 - - - 0.5 - - - ALKPHOS - 88 77 87 - 67 71 - 78 ALT - 34 80* 21 - 36 24 - 43 AST - 39 102* 36* - 51* 30 - 54* ALB - 4.3 3.7 3.6 - - 3.7 - 3.8 ALBUMIN - - - - - 4.1 - - - NA - - 139 139 - - 144 - 139 SODIUM 141 143 - - - 139 - - - POTASSIUM 3.9 4.4 3.8 3.7 - 3.8 3.9 - 3.9 CO2 22 22 27 21* - 21* 24 - 26 CREATININE 0.88 - 0.96 1.07* - 1.15* 1.02* - 1.0 BUN 15 17 16 15 - 20 17 - 17 HGB 12.4 12.5 12.0 11.2* - 12.1 13.0 - 12.8 WBC 5.0 4.9 5.8 5.1 - 5.3 6.8 - 7.3 PLTCOUNT 144* - 163 173 - 178 182 - 182 PLT - 164 - - - - - - - INR - - - - - - - - 1.0 - = values in this interval not displayed. labs 12/30/22 Platelet 164 Hg 12.5 hct 38.2 cr 1.02 Na 143 L+ 4.4 Protein 7.5 ALT 34 AST 39 ALP 88 ? Ferritin 132 Iron 126 Transferrin 317 ÁLVARO none detected Hepatitis B Surface Antibody Quantitative ?? Hepatitis B Virus Surface Antibody ?? Hepatitis B Surface Antigen ?? Hepatitis B Core Antibody IgG non reactive Hepatitis C Antibody non reactive HIV ?? IgG 1474 ?? Fibroscan 01/17/2023 ?? Liver Stiffness: (LSM, kPa) median: 6.4 ?? IQR/Median% (ideally < 30%): 6% ?? CAP (controlled attenuation parameter): 275 Ultrasound 01/18/22 IMPRESSION: ?? 1.Diffuse hepatic steatosis without discrete hepatic lesion or intrahepatic biliary dilatation. 2.Status post cholecystectomy. ? US 03/24/20 IMPRESSION: ?? 1. Diffuse hepatic steatosis without discrete hepatic lesion or intrahepatic biliary dilation. Patent hepatic vasculature. 2. Cholelithiasis without evidence of acute cholecystitis. 3. Normal renal size. No evidence of nephrolithiasis or hydronephrosis ? Fibroscan 11/10/20 kPa 9.4 CAP 332 ?? Colonoscopy 09/18/20 Impression: ? - The examined portion of the terminal ileum was ? normal. ? - One 2 mm polyp in the cecum, removed with a jumbo ? cold forceps. Resected and retrieved. ? - One 3 mm polyp in the ascending colon, removed ? with a jumbo cold forceps. Resected and retrieved. ? - One 6 mm polyp in the descending colon, removed ? with a cold snare. Resected and retrieved. One clip ? placed for prophylaxis (MR conditional). ? - Diverticulosis in the entire examined colon. ? - Non-bleeding internal hemorrhoids. Final Diagnosis Large intestine, cecal polyp x1, biopsy (A): - ??Tubular adenoma ?? Large intestine, ascending polyp, biopsy (B): - ??Tubular adenoma ?? Large intestine, descending polyp, biopsy (C): - ??Tubular adenoma ?? Assessment: 1. NAFLD, improvement in kPa with some dietary adjustments 2. breast CA, on Tomoxifen 3. obesity 4. adenomatous polyps? Plan: 1. Schedule annual follow 2. Specific recommendations were provided regarding diet and exercise including the avoidance of sugar sweetened beverages and dietary trans-fats. weight loss encouraged An appointment was scheduled for her to see me in followup in one year. Address letter to: Erma Neri MD Need New Address Copy to: Willis Veras MD [address] [facility] [phone] BRINDA Campos [facility] Division of Gastroenterology and Hepatology Collaborating physician: Dr. Harjit Liu January 21, 2023 No orders of the defined types were placed in this encounter. documented in this encounter Plan of Treatment Upcoming Encounters Date Type Department Care Team (Late st Contact Info) Description 06/02/2024 10:30 AM SACK MAKER Office Visit [facility] - Orthopedic Surgery [address] [place] [phone] Kevin Britton MD [address] [facility] [address] [place] [address] 08/10/2024 1:00 PM CDT Office Visit [facility] - SECURITY SYSTEM ADMINISTRATOR [address] [facility] [address] [place] [phone] Daja Mir MD [address] [facility] [place] [address] 10/26/2024 1:00 PM CDT Office Visit [facility] - Hematology/Oncology [address] [place] [phone] Elizabeth Garcia MD [address] [facility] [address] [place] [address] 01/17/2025 12:30 PM CDT Procedure visit [facility] - GI [address] [facility] [place] [address] 01/17/2025 1:00 PM CDT Office Visit [facility] - GI [address] [facility] [place] [address] Marlena Mccoy, SALON DESIGNER-COMPLAINTS COORDINATOR [address] [facility] [address] [place] [address] documented as of this encounter Goals Goal Patient Goal Type Associated Problems Recent Progress Patient-Stated? Author Mobility General On track( 021 9:08 AM SACK MAKER) No Tika Pope, SABRINA Note: Expected end [...] as of this encounter Visit Diagnoses Diagnosis NAFLD (nonalcoholic fatty liver disease)- Primary Other chronic nonalcoholic liver disease documented in this encounter Care Teams Bridge Painter Helper Relationship Specialty Start Date End Date Willis Veras MD [address] [place] [address] PCP - General 05/03/21 Cole Ku MD [address] [facility] [address] [place] [address] General Surgery 11/10/20 documented as of this encounter
--- OUTSIDE RECORDS SUMMARY | 2024-04-25 13:58 | XMS_ITS | Encounter Summary ---
Author Organization [facility] Address [address] [place] [address] Care Team Providers Care Galvanometer Assembler Name Role Phone Cole Ku MD Unavailable Willis Veras MD Primary Care Provider Reason for Visit * Reason Comments Post-Op Encounter Details Date Type Department Care Team (Late st Contact Info) Description 11/07/2022 10:00 AM CDT Office Visit [facility] - CALENDER INSPECTOR [address] [facility] [address] [place] [address] Cole Garcia MD [address] [facility] [address] [place] [address] Postoperative visit (Primary Dx); EIN (endometrial intraepithelial neoplasia) Social History Tobacco Use Types Packs/Day Years [...] Sign Reading Time Taken Comments Blood Pressure 142/86 11/07/2022 9:52 AM CDT Pulse - - Temperature - - Respiratory Rate - - Oxygen Saturation - - Inhaled Oxygen Concentration - - Weight 94.8 kg (209 lb) 11/07/2022 9:52 AM CDT Height 170.2 cm (5' 7 ) 11/07/2022 9:52 AM CDT Body Mass Index 32.73 11/07/2022 9:52 AM CDT documented in this encounter Functional [...] as of this encounter Progress Notes * Cole Garcia MD - 11/07/2022 11:25 AM CDT [facility] Gynecologic Oncology Return Clinic Visit Date of Service: 11/07/2022 Patient Name: Milagros Torres History of Present Illness: Milagros Torres is a 57 year old with a history of breast cancer and EIN presenting for postoperative visit. Patient doing well following surgery. She had light bleeding that resolved after one week. Denies fever, nausea, vomiting, abdominal pain. Patient recently had a fall while exiting her RV, which resulted in bilateral ecchymoses around her eyes from her glasses and a right ankle sprain. She is recovering well from this event. She also a BIRADS 3 finding on a recent mammogram. She reports that the R adiologist expressed surprise and concern for her being treated with a levonorgestrel IUD given herhistory. This has caused significant anxiety. Treatment history 07/25/22 EMB 10/16/22 Hysteroscopy, D&C, Levonorgestrel IUD placed Pathology 10/16/22 Uterus, endometrium, curettage - Inactive endometrium and benign squamous epithelium with detached fragments of squamous morules, without evidence of hyperplasia or malignancy 07/25/22 ([facility] pathology review) Uterus, endometrium, biopsy - Focal complex atypical hyperplasia/endometrial intraepithelial neoplasia ?? 07/25/22 (outside report) Fragmented proliferative endometrium (with blood and mucus), showing features of simple hyperplasiawithout atypia; and associated morule formation. Evidence of partial atrophic change is also noted.Initial result was disregarded and the report was revised following review of deeper sections. ?? 07/09/22 Pap: Negative for intra-epithelial lesion or malignancy Past Medical History: Past Medical History: Diagnosis Date ??? Arthropathy ??? Breast cancer (CMS/HCC) ??? CKD (chronic kidney disease) ??? Depression with anxiety ??? Disorder of liver NAFLD ??? Gallstones ??? Hypertension required meds when getting radiation for breast CA. No longer requiring meds ??? Malignancy (CMS/HCC) breast left ??? Valvular heart disease heart murmur Past Surgical History: Past Surgical History: Procedure Laterality [...] DILATION & CURETTAGE, INTRAUTERINE DEVICE PLACEMENT ??? KNEE ARTHROPLASTY Left 02/01/2022 Left; TOTAL KNEE ARTHROPLASTY Family History: Family History Problem Relation Name Age of Onset ??? Cancer - Lung Mother ??? Cancer - Breast Sister ??? Cancer - Prostate Brother Social History: Social History Socioeconomic History ??? Marital status: [...] on file Housing Stability: Not on file Exam: BP 142/86 Ht 1.702 m (5' 7 ) Wt 94.8 kg (209 lb) Gen: NAD Neuro: Oriented x3 CV: RRR Lungs: CTAB Abd: Soft, non-tender, non-distended, no palpable masses Pelvic: Deferred Assessment/Plan: 57 year old with a history of breast cancer and EIN presenting for postoperative visit. Endometrial intraepithelial neoplasia -Benign pathology results reviewed with patient. -Plan for repeat sampling with D&C q3mo. -Discussed with patient that we can consider removing the IUD after 2-3 benign results. Additional testing would be needed after removal to ensure no recurrence of EIN. -We reviewed again that medical management is a deviation from standard treatment, but is reasonable given the prolonged Tamoxifen use and lack of spontaneous bleeding prompting evaluation which makeher situation unique. Her case was reviewed with her Med Onc previously and it was agreed that there may be a slight increase in oncologic risk with lng-IUD, but it is not significant enough to be a strong contraindication. While we will continue with medical management at this time, I encouraged patient to contact the clinic if she feels uncomfortable with the plan and would like to pursue surgery. Also discussed with patient that hysterectomy would be reasonable to simplify her treatment if the recent mammogram findings represent a recurrence. I reassured her that the changes on mammogram would be exceedingly unlikely to be due to 12 days of lng- IUD exposure. -After the above discussion, patient would like to continue with medical management. I have spent 30 minutes with the patient of which >50% was spent in counseling. Cole Garcia MD [facility] of Gynecologic Oncology Department of Obstetrics, Gynecology, and Women's Health 11/07/2022 11:25 AM documented in this encounter Plan of Treatment Upcoming Encounters Date Type Department Care Team (Late st Contact Info) Description 06/02/2024 10:30 AM DELIVERY CONSULTANT Office Visit [facility] - Orthopedic Surgery [address] [place] [phone] Kevin Britton MD [address] [facility] [address] [place] [address] 08/10/2024 1:00 PM CDT Office Visit [facility] - CALENDER INSPECTOR [address] [facility] [address] [place] [phone] Daja Mir MD [address] [facility] [place] [address] 10/26/2024 1:00 PM CDT Office Visit [facility] - Hematology/Oncology [address] [place] [phone] Elizabeth Garcia MD [address] [facility] 3 [place] [address] 01/17/2025 12:30 PM CDT Procedure visit [facility] - GI [address] [place] [phone] 01/17/2025 1:00 PM CDT Office Visit [facility] - GI [address] [place] [phone] Marlena Mccoy, NEON GLASS BLOWER-SCIENTIFIC PROGRAMMER [address] [place] [address] [address] [place] [address] documented as of this encounter Goals Goal Patient Goal Type Associated Problems Recent Progress Patient-Stated? 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
--- OUTSIDE RECORDS SUMMARY | 2024-04-25 13:58 | XMS_ITS | Encounter Summary ---
Author Organization [facility] Address [address] [facility] [place] [address] Care Team Providers Care Community Marketing Coordinator Name Role Phone Cole Ku MD Unavailable Willis Veras MD Primary Care Provider Encounter Details Date Type Department Care Team (Latest Contact Info) Description 10/21/2022 11:35 AM CDT - 10/21/2022 11:59 PM T Hospital Encounter [facility] [address] [facility], 2nd [place] [address] Discharge Disposition: Home or Self Care Social [...] st Contact Info) Description 06/02/2024 10:30 AM GETTER FILLER Office Visit [facility] - Orthopedic Surgery [address] [place] [phone] Kevin Britton MD [address] [facility] [address] [place] [address] 08/10/2024 1:00 PM CDT Office Visit [facility] - CLINICAL APPEALS REVIEWER [address] [facility] [address] [place] [phone] Daja Mir MD [address] [place] [address] 10/26/2024 1:00 PM CDT Office Visit [facility] - Hematology/Oncology [address] [place] [phone] Elizabeth Garcia MD [address] [place] [address] 01/17/2025 12:30 PM CDT Procedure visit [facility] - GI [address] [facility], [place] [phone] 01/17/2025 1:00 PM CDT Office Visit [facility] - GI [address] [place] [address], [place] [phone] Marlena Mccoy, SENIOR PROFESSIONAL SERVICES CONSULTANT-SWEET PICKLED FRUIT MAKER [address] [place] [address] [address] [place] [address] documented as of this encounter Goals Goal Patient Goal Type Associated Problems Recent Progress Patient-Stated? Author Mobility General On track( 021 9:08 AM GETTER FILLER) No Tika Poep, SABRINA Note: Expected end date: 05/05/2019 The [...] Procedure Name Priority Date/Time Associated Diagnosis Comments VITAMIN D 25-HYDROXY LINDA 10/21/2022 12:03 PM CDT Encounter for monitoring tamoxifen therapy History of breast cancer CBC W AUTO DIFFERENTIAL STAT 10/21/2022 12:03 PM CDT Encounter for monitoring tamoxifen therapy History of breast cancer COMPREHENSIVE METABOLIC PANEL STAT 10/21/2022 12:03 PM CDT Encounter for monitoring tamoxifen therapy History of breast cancer documented in this encounter Results * VITAMIN D 25-HYDROXY (10/21/2022 12:03 PM CDT) Pathologist [facility] Vitamin D, 25 Hydroxy 44.0 30.0 - 80.0 ng/mL 10/21/2022 12:52 PM CDT [facility] Comment: The recommendations for 25-Hydroxy Vitamin [...] Byers MD LAB - CHEMISTRY LD SALDAÑA Performing Organization Address [facility]/State/ZIP Co de Phone Number [address] [address], [facility] [phone] * (ABNORMAL) COMPREHENSIVE METABOLIC PANEL (10/21/2022 12:03 PM CDT) [facility] BUN 16 7 - 26 mg/dL 10/21/2022 12:34 PM [facility] Creatinine 0.96 0.56 - 0.96 mg/dL 10/21/2022 12:34 PM [facility] Sodium 139 136 - 145 mmol/L 10/21/2022 12:34 PM [facility] Potassium 3.8 3.5 - 4.5 mmol/L 10/21/2022 12:34 PM [facility] Chloride 107 98 - 107 mmol/L 10/21/2022 12:34 PM [facility] CO2 27 22 - 29 mmol/L 10/21/2022 12:34 PM [facility] Glucose 95 70 - 115 mg/dL 10/21/2022 12:34 PM [facility] Calcium 9.3 8.4 - 10.2 mg/dL 10/21/2022 12:34 PM [facility] Protein Total 7.1 6.0 - 8.3 g/dL 10/21/2022 12:34 PM [facility] Albumin 3.7 3.4 - 5.0 g/dL 10/21/2022 12:34 PM [facility] Bilirubin Total 0.3 0.2 - 1.2 mg/dL 10/21/2022 12:34 PM [facility] Alkaline Phosphatase 77 40 - 150 U/L 10/21/2022 12:34 PM [facility] ALT 80(H) 5 - 55 U/L 10/21/2022 12:34 PM [facility] AST 102(H) 5 - 34 U/L 10/21/2022 12:34 PM [facility] Anion Gap 9 8 - 18 10/21/2022 12:34 PM [facility] BUN/Creatinine Ratio 17 7 - 23 10/21/2022 12:34 PM [facility] Osmolality Calculated 289 270 - 300 mOsm/kg 10/21/2022 12:34 PM [facility] Albumin/Globulin Ratio 1.1 1.1 - 2.3 10/21/2022 12:34 PM [facility] eGFR by CKD-EPI 69(L) >=90 mL/min/1.7 3 m2 10/21/2022 12:34 PM [facility] Blood BLOOD SPECIMEN / Unknown Lab Venipuncture / Unknown 10/21/2022 12:03 PM CDT 10/21/2022 12:07 PM CDT Araseli Byers MD LAB - CHEMISTRY LD Luna Organization Address City/State/ZIP Co de Phone Number [facility] [address] [place] [address], [facility] [phone] * (ABNORMAL) CBC WITH DIFFERENTIAL (10/21/2022 12:03 PM CDT) WBC 5.8 3.5 - 10.5 10? 3 /uL 10/21/2022 12:11 PM [facility] RBC 4.00 3.80 - 5.20 10? 6 /uL 10/21/2022 12:11 PM [facility] Hemoglobin 12.0 12.0 - 15.6 g/dL 10/21/2022 12:11 PM [facility] Hematocrit 35.9 35.0 - 45.0 % 10/21/2022 12:11 PM [facility] MCV 89.8 80.7 - 98.3 fL 10/21/2022 12:11 PM [facility] MCH 30.0 26.7 - 34.0 pg 10/21/2022 12:11 PM [facility] MCHC 33.4 30.8 - 35.9 g/dL 10/21/2022 12:11 PM [facility] RDW-SD 41.9 36.0 - 50.0 fL 10/21/2022 12:11 PM [facility] RDW-CV 12.7 11.2 - 14.8 % 10/21/2022 12:11 PM [facility] Platelet Count 163 150 - 400 10? 3 /uL 10/21/2022 12:11 PM [facility] MPV 11.1 9.4 - 12.9 fL 10/21/2022 12:11 PM [facility] nRBC Absolute 0.00 0 10? 3 /uL 10/21/2022 12:11 PM [facility] nRBC Auto 0.0 0 /100 WBC 10/21/2022 12:11 PM [facility] Neutrophils % 45.1 35.0 - 70.0 % 10/21/2022 12:11 PM [facility] Lymphocytes % 43.7(H) 20.0 - 43.0 % 10/21/2022 12:11 PM [facility] Monocytes % 7.0 5.0 - 13.0 % 10/21/2022 12:11 PM [facility] Eosinophils % 3.6 0.0 - 6.0 % 10/21/2022 12:11 PM [facility] Basophil % 0.3 0.0 - 2.0 % 10/21/2022 12:11 PM [facility] Neutrophils Absolute 2.62 1.60 - 7.00 10? 3 /uL 10/21/2022 12:11 PM [facility] Lymphocyte Absolute 2.55 1.10 - 3.90 10? 3 /uL 10/21/2022 12:11 PM [facility] Monocytes Absolute 0.41 0.26 - 1.07 10? 3 /uL 10/21/2022 12:11 PM [facility] Eosinophils Absolute 0.21 0.00 - 0.47 10? 3 /uL 10/21/2022 12:11 PM [facility] Basophils Absolute 0.02 0.00 - 0.08 10? 3 /uL 10/21/2022 12:11 PM [facility] Immature Granulocytes % 0.3 0.0 - 1.0 % 10/21/2022 12:11 PM [facility] Immature Granulocytes Absolute 0.02 10/21/2022 12:11 PM [facility] Blood BLOOD SPECIMEN / Unknown Lab Venipuncture / Unknown 10/21/2022 12:03 PM CDT 10/21/2022 12:06 PM CDT Araseli Byers MD LAB - HEMATOLOGY ORD ERABLES [facility] [address] [place] [address], [facility] [phone] documented in this encounter Visit Diagnoses Diagnosis Encounter for monitoring tamoxifen therapy Encounter for therapeutic drug monitoring History of breast cancer Personal history of malignant neoplasm of breast documented in this encounter Care Teams Community Marketing Coordinator Relationship Specialty Start Date End Date Willis Veras MD [address] [place] [address] PCP - General 05/03/21 Cole Ku MD [address] [facility] [place] [address] General Surgery 11/10/20 documented as of this encounter
--- OUTSIDE RECORDS SUMMARY | 2024-04-25 13:58 | XMS_ITS | Encounter Summary ---
Author Organization [facility] Address [address] [place] [address] Care Team Providers Care Hand Stamper Name Role Phone Cole uK MD Unavailable Willis Veras MD Primary Care Provider Reason for Visit * Auth/Cert (Routine) Specialty Diagnoses / Procedures Referred By Americo t Referred To Contact Diagnoses Diagnosis unknown Diagnosis unknown [R69] Procedures WY HYSTEROSCOPY,W/ENDO BX HYSTEROSCOPY WITH DILATION & CURETTAGE Referral ID Status Reason Start Date Expiration Date Visits Re quested Visits Authorized [id number] 1 1 Encounter Details Date Type Department Care Team (Late st Contact Info) Description 01/07/2023 7:30 AM CDT - 01/07/2023 9:07 AM CDT Surgery [facility] PERIOPERATIVE [address] [place] [address] Cole Garcia MD [address] [address] HYSTEROSCOPY WITH DILATION & CURETTAGE, REMOVAL & REPLACEMENT OF INTRAUTERINE DEVICE Surgery Details Date/Time Status Location OR Service Patient Class Case Class Case Type Trauma Case? 01/07/2023 7:30 AM Posted [facility] MAIN OR OR 08 Gynecology Oncology Surgery Day Care Elective > 5 days Panel 1 Procedure LRB Anes Op Region Wound Class Comments HYSTEROSCOPY WITH DILATION & CURETTAGE, REMOVAL & REPLACEMENT OF INTRAUTERINE DEVICE N/A General Vagina Clean Contaminated Surgeon Surgeon Role Service Panel Cole Garcia MD Primary Gynecology Oncology 1 Casey Loja MD Resident - Assisting Gynecology 1 Special Needs NEEDS MIRENA IUD - ORDERED FROM [facility]) 12/23 TM documented in this encounter Social History Tobacco [...] Sign Reading Time Taken Comments Blood Pressure 148/91 01/07/2023 8:55 AM CDT Pulse 60 01/07/2023 8:55 AM CDT Temperature 35.7 ??C (96.3 ??F) 01/07/2023 8:55 AM CD T Respiratory Rate 16 01/07/2023 8:55 AM CDT Oxygen Saturation 100% 01/07/2023 8:55 AM CDT Inhaled Oxygen Concentration - - Weight 94.8 kg (209 lb) 01/07/2023 5:56 AM CDT Height 170.2 cm (5' 7 ) 01/07/2023 5:56 AM CDT Body Mass Index 32.73 01/07/2023 5:56 AM CDT documented in this [...] this encounter Discharge Instructions * Discharge Instructions* Casey Loja MD - 01/07/2023 8:25 AM CDT Post-Operative Instructions: Hysteroscopy This procedure may cause the following symptoms in the postoperative period: Watery discharge Spotting or small amount of bleeding Cramping in the lower abdominal area. These typically will resolve in a few days. You may take some Ibuprofen as prescribed or [id number] to help with cramping pain. Please call our office or exchange, or go to the Emergency Department if you have any of the following symptoms: Excessive vaginal bleeding (more than one pad fully saturated in one hour) Fever (temperature greater than 100.4 degrees F) Foul-smelling vaginal discharge Significant and increasing amount of pain, unrelieved by medications given to you Inability to pass gas or have a bowel movement within 1 day after surgery. Difficulty urinating or inability to empty your bladder General anesthesia may cause some nausea and even vomiting. Start out after surgery by eating blandand soft types of food when you get home (for example, toast, crackers, mashed potato, apple sauce,rice, broth, chicken that is not spicy). If you do well, then you can advance your diet. If you develop any nausea or vomiting, call our office or exchange number. Most of the time, these symptoms will respond to changing your diet and anti-nausea medications that can be prescribed to you over the phone. Sometimes in rare cases, however, severe and unrelenting nausea can be a sign of more seriouscomplications. For the next 2-3 weeks, you should be on ???pelvic rest,?? which means no douching, tampons or intercourse. This will help prevent infection. If you had a D & C procedure or removal of a polyp or any other uterine mass, along with hysteroscopy, we will know your pathology results in 1-2 weeks. Please make an appointment for follow up at that time. Please feel free to call our office with any other questions. documented in this encounter Medications at Time [...] Take 2 (two) capsules by mouth every 8 hours as needed for Fever or Pain 30 capsule 1 01/07/2023 01/17/2023 celecoxib (CeleBREX) 50 MG capsuleIndications:S/P TKR (total knee replacement), left,Primary osteoarthritis of left knee Take 2 (two) capsules by mouth once daily 60 capsule 1 11/22/2022 01/15/2023 Cholecalciferol (vitamin D3) 1.25 MG (73362 UT) capsule Take 1 (one) capsule by mouth Once per week 01/07/2023 04/09/2023 ibuprofen (Motrin) 600 MG tablet Take 1 (one) tablet by mouth every 6 hours as needed for Pain 30 tablet 1 01/07/2023 01/17/2023 documented as of this encounter H&P Notes * Valencia Guzman - 12/26/2022 10:49 AM CDT Director Of Agronomy Onc Pre Op History & Physical Per chart review 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 Cole Garcia History: Milagros Torres is a 57 year old with a history of breast cancer and EIN s/p hysteroscopy D&C and IUD placement in October. Patient was last seen in clinic by Dr. Shafer on 11/07/2022. Treatment history 07/25/22 EMB 10/16/22 Hysteroscopy, D&C, Levonorgestrel IUD placed PMH: Past Medical History: Diagnosis Date Arthropathy Breast cancer (CMS/HCC) CKD (chronic kidney disease) Depression with anxiety Disorder of liver NAFLD Gallstones Hypertension required meds when getting radiation for breast CA. No longer requiring meds Malignancy (CMS/HCC) breast left Valvular heart disease heart murmur PSH: Past Surgical History: Procedure Laterality Date Bilateral Tubal Ligation (BTL) BIOPSY BREAST Breast Lumpectomy Left 09/04/2015 With sentinel node biopsy performed by Dr. Brittni Knight Section 05/1990 Cholecystectomy, Laparoscopic N/A 12/05/2020 N/A; LAPAROSCOPIC CHOLECYSTECTOMY COLONOSCOPY N/A 09/18/2020 N/A; COLONOSCOPY SCREEN---extended prep with Cheesman Dilation and Curettage 2016 and 2018 for PMB in the s/o tamoxifen use HYSTEROSCOPY N/A 10/16/2022 N/A; HYSTEROSCOPY WITH DILATION & CURETTAGE, INTRAUTERINE DEVICE PLACEMENT KNEE ARTHROPLASTY Left 02/01/2022 Left; TOTAL KNEE ARTHROPLASTY OB: OB History Para Term AB Living 3 SAB IAB Ectopic Multiple Live Births # Outcome Date GA Lbr Fabiano/2nd Weight Sex Delivery Anes PTL Lv 3 2 1 SOC: Social History Socioeconomic History Marital status: Spouse name: Not on file Number of children: Not on file Years of education: Not on file Highest education level: Not on file Occupational History Not on file Tobacco Use Smoking status: Never Smokeless tobacco: Never Vaping Use Vaping Use: Never used Substance and Sexual Activity Alcohol use: Yes Comment: ocassional weekends Drug use: Never Sexual activity: Not on file Other Topics Concern Not on file Social History Narrative Not on file Social Determinants of Health Financial Resource Strain: Not on file Food Insecurity: No Food Insecurity (02/01/2022) Hunger Vital Sign Worried About Running Out of Food in the Last Year: Never true Ran Out of Food in the Last Year: Never true Transportation Needs: Not on file Stress: Not on file Housing Stability: Not on file FamHx: Family History Problem Relation Name Age of Onset Cancer - Lung Mother Cancer - Breast Sister Cancer - Prostate Brother No Known Allergies No current facility-administered medications for this encounter. Current Outpatient Medications Medication Sig Dispense Refill calcium 600 MG tablet Take 1 tablet by mouth daily with food 90 tablet 2 celecoxib (CeleBREX) 50 MG capsule Take 2 (two) capsules by mouth once daily 60 capsule 1 famotidine (Pepcid) 20 MG tablet Take 1 (one) tablet by mouth once daily losartan - hydroCHLOROthiazide (Hyzaar) 50-12.5 MG tablet Take 1 (one) tablet by mouth once daily Vitamin D3, cholecalciferol, 50 MCG (2000 UT) tablet Take 1 tablet by mouth once daily 90 tablet 2 Exam in office per chart review: Gen: NAD Neuro: Oriented x3 CV: RRR Lungs: CTAB Abd: Soft, non-tender, non-distended, no palpable masses Pelvic: Deferred Lab Review: Recent Labs Component Name 10/16/22 0628 ABORH O POS Recent Labs Component Name 10/21/22 1203 03/20/22 1036 02/02/22 0158 01/22/22 1015 WBC 5.8 5.1 - 5.3 HGB 12.0 11.2* 9.1* 12.1 HCT 35.9 34.6* 27.7* 36.6 PLTCOUNT 163 173 - 178 Recent Labs Component Name 10/21/22 1203 03/20/22 1036 01/22/22 1015 SODIUM - - 139 POTASSIUM 3.8 3.7 3.8 CHLORIDE - - 107 CO2 27 21* 21* BUN 16 15 20 CREATININE 0.96 1.07* 1.15* GLUCOSE 95 147* 91 CALCIUM 9.3 9.3 9.4 Imaging Review: none Pathology Review: 10/16/22 Uterus, endometrium, curettage - Inactive endometrium and benign squamous epithelium with detached fragments of squamous morules, without evidence of hyperplasia or malignancy 07/25/22 ([facility] pathology review) Uterus, endometrium, biopsy - Focal complex atypical hyperplasia/endometrial intraepithelial neoplasia 07/25/22 (outside report) Fragmented proliferative endometrium (with blood and mucus), showing features of simple hyperplasiawithout atypia; and associated morule formation. Evidence of partial atrophic change is also noted.Initial result was disregarded and the report was revised following review of deeper sections. 07/09/22 Pap: Negative for intra-epithelial lesion or malignancy Assessment/Plan: 57 year old with: EIN Procedure(s): HYSTEROSCOPY WITH DILATION & CURETTAGE, REMOVAL & REPLACEMENT OF INTRAUTERINE DEVICE Risks and Benefits of surgery were reviewed with the patient during her last clinic appointment, including but not limited to: infection, bleeding, possible need for blood transfusion, damage to surrounding structures (bladder, bowel, ureters). Valencia Guzman 12/26/2022 10:49 AM Associated attestation - Cole Garcia MD - 01/07/2023 6:55 AM CDT I have verified the documentation of the medical student, including all history, exam, and medical decision-making details. I have personally performed a physical exam and have personally reviewed the data to support my medical decision-making as outlined in the student's note, and I arrive independently at the same conclusion with the additional comments. Patient seen in preop. All questions answered before obtaining consent for procedure. Plan for discharge home following procedure. documented in this encounter OR Notes * OR Surgeon - Cole Garcia MD - 01/07/2023 8:58 AM CDT Gynecologic Oncology Operative Note 01/07/2023 8:58 AM Preoperative Diagnosis: CAH/EIN Postoperative Diagnosis: Same ?? Procedure: Dilation and curettage, hysteroscopy, placement of IUD Surgeon: COLE GARCIA MD Principal Scientist: Casey Loja PGY3 Type of anesthesia: General Complications: none ?? EBL: 5 cc ?? Indications for procedure: Patient is a 57yo [...] elected to undergo trial of medical management. At the time of IUD placement 3 months ago, uterine curettage showed benign findings. She was recommended to undergo serial sampling q3mo to ensure no recurrence or progression of neoplasia. Findings: No cervical or vaginal lesions. IUD strings visible at start and conclusion of case and device was intact. Endometrial lining appeared atrophic in most areas. Some mild thickening of the lining was noted on the left, but no mass or lesion that would be grossly concerning for neoplasia. Ostia visualized. Operative Details: After informed consent was obtained [...] grasped with a single tooth tenaculum. The levonorgestrel IUD string was grasped and the device was removed without resistance. The IUD was kept sterile and placed in a specimen container for later reinsertion. The cervix was gently dilated to accommodate a rigid 30 degree hysteroscope. The hysteroscope was introduced through the external os and used to inspect the endometrial cavity. The hysteroscope was removed and a gentle curettage was performed. The IUD was grasped with uterine packing forceps and was replaced into the uterine cavity. The tenaculum was removed and puncture sites were hemostatic after applying pre ssure. The patient tolerated the procedure well and was taken to recovery in stable condition. Instrument, sponge, and needle counts were correct x2. I was present for the entirety of the procedure. COLE GARCIA MD 01/07/2023 8:58 AM documented in this encounter Plan of Treatment Upcoming Encounters Date Type Department Care Team (Late st Contact Info) Description 06/02/2024 10:30 AM REAL ESTATE SERVICES COORDINATOR Office Visit [facility] - Orthopedic Surgery [address] [place] [phone] Kevin Britton MD [address] [facility] [address] [place] [address] 08/10/2024 1:00 PM CDT Office Visit [facility] - NEUROLOGIST [address] [facility] [address] [place] [address] Daja Mir MD [address] [facility] [place] [address] 10/26/2024 1:00 PM CDT Office Visit [facility] - Hematology/Oncology [address] [place] [phone] Elizabeth Garcia MD [address] [facility] [address] [place] [address] 01/17/2025 12:30 PM CDT Procedure [place] [facility] [address] [place] [address], [facility] [place] [phone] 01/17/2025 1:00 PM CDT Office Visit [facility] - GI [address] [place] [address], [place] [phone] Marlena Mccoy, SECURITY SYSTEMS TECHNICIAN-COMPOUNDER HELPER [address] [place] [address] [facility] [place] [address] documented as of this encounter Goals Goal Patient Goal Type Associated Problems Recent Progress Patient-Stated? Author Mobility General On track( 021 9:08 AM REAL ESTATE SERVICES COORDINATOR) No Tika Pope, RN Note: Expected end [...] Associated Diagnosis Comments CARDIAC RHYTHM STRIP ORDER 01/10/2023 3:55 PM CDT PATHOLOGY TISSUE EXAM (STL) Routine 01/07/2023 8:05 AM CDT Diagnosis unknown WY HYSTEROSCOPY,W/ENDO BX 01/07/2023 7:13 AM CDT Diagnosis unknown Special Needs NEEDS [facility] 12/23 TM TYPE + SCREEN PANEL STAT 01/07/2023 6 :08 AM CDT Preoperative examination CBC W AUTO DIFFERENTIAL Pre-Op 01/07/2023 6:08 AM CDT Preoperative examination BASIC METABOLIC PANEL (CALCIUM TOTAL) STAT 01/07/2023 6:08 AM CDT Preoperative examination documented in this encounter Results * CARDIAC RHYTHM STRIP ORDER (01/10/2023 3:55 PM CDT) Narrative 01/10/2023 3:55 PM CDT Ordered by an unspecified provider. Scanned Document CARDIAC SERVICES ORD ERABLES * PATHOLOGY TISSUE EXAM (STL) (01/07/2023 8:05 AM CDT) Case Report Surgical Pathology Report ? Case: [id number] ? Authorizing Provider: ??Cole Garcia MD ?Collected: ? 01/07/2023 08:05 AM ? Ordering Location: ? [facility] PERIOPERATIVE ? Received: ?01/07/2023 08:45 AM ? Pathologist: ? Maxine Talbert MD ? Specimen: ?Endocervix Curettings, Endometreal Curettings ? 01/08/2023 8:36 AM [facility] Final Diagnosis Uterus, endometrium, curettage - Scant, detached fragments of at least complex atypical hyperplasia/endometri al intraepithelial neoplasia (CAH/EIN) - Background endometrium with exogenous hormone effect and chronic endometritis 01/08/2023 8:36 AM [facility] Clinical History The patient is a 57-year-old woman. Per Epic, she has a history of breast cancer and recent diagnosis of endometrial intraepithelial neoplasia. She had been on Tamoxifen for six years prior to her diagnosis. Patient had two episodes of postmenopausal bleeding while on Tamoxifen. Operative procedure: endometrial curettage, intrauterine device placement. 01/08/2023 8:36 AM [facility] Gross Description The specimen is identified with patient's name and date of . Received in formalin, specimen ? A, endometrial curetting? is an aggregate of pink-dumont tissues and blood clot, 2.5 x 1.5 x 0.3 cm. Entirely submitted in cassette A1. LJ 01/08/2023 8:36 AM [facility] Microscopic Description Microscopic examination substantiates the above diagnosis. 01/08/2023 8:36 AM [facility] Pathologist Location at [facility] 01/08/2023 8:36 AM [facility] Disclaimer All histochemical and/or immunohistochemical results are interpreted with controls that demonstrate appropriate staining reactions before reporting results. Note on use of immunocytochemistry reagents: This test was developed and its performance characteristic determined by [facility], Department of Laboratory Medicine. It has [...] tissues. Results should be interpreted with caution. 01/08/2023 8:36 AM CDT [facility] Embedded Images 01/08/2023 8:36 AM CDT [facility] Pathology/Cytolo gy CURETTINGS / Unknown 01/07/2023 8:05 AM CDT 01/07/2023 8:45 AM CDT Comment:Pre-op diagnosis: Diagnosis unknown [R69] Cole Garcia MD LAB - PATHOLOGY/CYTO LOGY ORDERABLES Performing Organization Address [facility] Co de Phone Number [facility] [address] [place] [address] * (ABNORMAL) BASIC METABOLIC PANEL (CALCIUM TOTAL) (01/07/2023 6:08 AM CDT) Glucose 95 70 - 105 mg/dL 01/07/2023 6:36 AM CDT [facility] Sodium 141 136 - 145 mmol/L 01/07/2023 6:36 AM CDT [facility] Potassium 3.9 3.5 - 5.1 mmol/L 01/07/2023 6:36 AM CDT [facility] Chloride 110(H) 98 - 107 mmol/L 01/07/2023 6:36 AM CDT [facility] CO2 22 22 - 29 mmol/L 01/07/2023 6:36 AM CDT [facility] Calcium 9.7 8.4 - 10.4 mg/dL 01/07/2023 6:36 AM CDT [facility] Anion Gap 9 6 - 16 mmol/L 01/07/2023 6:36 AM CDT [facility] BUN 15 7 - 26 mg/dL 01/07/2023 6:36 AM CDT [facility] Creatinine 0.88 0.57 - 1.11 mg/dL 01/07/2023 6:36 AM CDT [facility] eGFR by CKD-EPI 76(L) >=90 mL/min/1.7 3 m2 01/07/2023 6:36 AM CDT [facility] Blood BLOOD SPECIMEN / Unknown Venipuncture / Unknown 01/07/2023 6:08 AM CDT 01/07/2023 6:16 AM CDT Sweetie Nugent DO LAB - CHEMISTRY ORD ERABLES [facility] [address] [place] [address] * (ABNORMAL) CBC W AUTO DIFFERENTIAL (01/07/2023 6:08 AM CDT) WBC 5.0 4.4 - 10.7 x10E9/L 01/07/2023 6:31 AM CDT [facility] WBC Corrected 01/07/2023 6:31 AM CDT [facility] RBC 4.04 3.80 - 5.20 x10E12/L 01/07/2023 6:31 AM CDT [facility] Hemoglobin 12.4 12.0 - 15.6 gm/dL 01/07/2023 6:31 AM CDT [facility] Hematocrit 37.3 35.9 - 45.5 % 01/07/2023 6:31 AM CDT [facility] MCV 92.3 80.7 - 98.3 fl 01/07/2023 6:31 AM CDT [facility] MCH 30.7 26.7 - 34.0 pg 01/07/2023 6:31 AM CDT [facility] MCHC 33.2 30.8 - 35.9 gm/dL 01/07/2023 6:31 AM CDT [facility] Platelet Count 144(L) 153 - 416 x10E9/L 01/07/2023 6:31 AM CDT [facility] RDW-CV 12.4 12.1 - 14.9 % 01/07/2023 6:31 AM CDT [facility] MPV 11.8 9.4 - 12.9 fl 01/07/2023 6:31 AM CDT [facility] Neutrophils % 41.8(L) 44.0 - 73.0 % 01/07/2023 6:31 AM CDT [facility] Lymphocytes % 47.7(H) 20.0 - 43.0 % 01/07/2023 6:31 AM CDT [facility] Monocytes % 7.5 5.0 - 13.0 % 01/07/2023 6:31 AM CDT [facility] Eosinophils % 2.4 0.0 - 6.0 % 01/07/2023 6:31 AM CDT [facility] Basophils % 0.4 0.0 - 2.0 % 01/07/2023 6:31 AM CDT [facility] Immature Granulocytes 0.2 0 - 1 % 01/07/2023 6:31 AM CDT [facility] Neutrophil Absolute 2.07 2.01 - 7.14 x10E9/L 01/07/2023 6:31 AM CDT [facility] Lymphocytes Absolute 2.36 1.07 - 3.94 x10E9/L 01/07/2023 6:31 AM CDT [facility] Monocytes Absolute 0.37 0.26 - 1.07 x10E9/L 01/07/2023 6:31 AM CDT [facility] Eosinophils Absolute 0.12 0 - 0.47 x10E9/L 01/07/2023 6:31 AM CDT [facility] Basophils Absolute 0.02 0 - 0.08 x10E9/L 01/07/2023 6:31 AM CDT [facility] Immature Granulocytes Absolute 0.01 0.00 - 0.06 x10E9/L 01/07/2023 6:31 AM CDT [facility] nRBC Auto 0 /100 WBC 01/07/2023 6:31 AM T [facility] Blood BLOOD SPECIMEN / Unknown Venipuncture / Unknown 01/07/2023 6:08 AM CDT 01/07/2023 6:16 AM CDT Edmundos Jovanna DO LAB - HEMATOLOGY OR DERABLES [facility] [address] [place], [place] [id number] * TYPE + SCREEN PANEL (01/07/2023 6:08 AM CDT) ABO Rh O POS 01/07/2023 6:50 AM CDT [facility] Comment:History checked. Antibody Screen NEG 6:50 AM CDT [facility] Blood Bank BLOOD SPECIMEN / Unknown Venipuncture / Unknown 01/07/2023 6:08 AM CDT 01/07/2023 6:11 AM CDT Cole Garcia MD LAB - BLOOD BANK ORD ERABLES [facility] [address] [place] [id number] [phone] documented in this encounter Visit Diagnoses Diagnosis Preoperative examination- Primary Preoperative examination, unspecified Diagnosis unknown Other [...] PRN, Other, peripheral line flush, Starting on Fri01/07/23 at 0529, Until Fri01/07/23 at 1057, Flush peripheral IV catheter with 1-10 mL of normal saline before and after medications and prn to clear blood from the line or to verify patency., Pre-op 0.9% NaCl injection 3 mL 3 mL, Intracatheter, EVERY 8 HOURS, First dose on Fri01/07/23 at 0600, Until Discontinued, Flush peripheral IV catheter with 3 mL of normal saline every 8 hours., Pre-op acetaminophen (Tylenol) tablet 1,000 mg 1,000 mg, Oral, ONCE, 1 dose, On Fri01/07/23 at 0530, Patient preference for lesser PRN pain meds may be honored when the patient requests a less strong medication, a lower dose, or a less intrusive route of administration when the lesser drug, dose and route have been ordered for the patient. This patient request must be documented in the MAR., Pre-op $ Given 01/07/2023 6:13 AM CDT 1,000 mg BUPivacaine PF (Marcaine PF) 0.5 % injection PRN, Starting on Fri01/07/23 at 0810, Until Fri01/07/23 at 0820, Intra-op $ Given 01/07/2023 8:10 AM CDT 10 mL Operative Site fentaNYL (PF) (Sublimaze) injection 50 mcg 50 mcg, Intravenous, EVERY 10 MIN PRN, Mild Pain, 4 doses, Starting on Fri01/07/23 at 0824, Until Fri01/07/23 at 1057, Maximum total of 4 doses. If patient [...] in the MAR., PACU HYDROmorphone (Dilaudid) injection 0.2 mg 0.2 mg, Intravenous, EVERY 15 MIN PRN, Moderate Pain, 5 doses, Starting on Fri01/07/23 at 0824, Until Fri01/07/23 at 1057, Maximum total of 5 doses If patient reaches max total dose, [...] injection 0.5 mg 0.5 mg, Intravenous, EVERY 10 MIN PRN, Severe Pain, 4 doses, Starting on Fri01/07/23 at 0824, Until Fri01/07/23 at 1057, Maximum total of 4 doses If patient [...] the MAR., PACU lactated ringers infusion at 20 mL/hr, Intravenous, PRE-OP CONTINUOUS, Starting on Fri01/07/23 at 0545, Until Fri01/07/23 at 1057, Pre-op Restarted 01/07/2023 7:28 AM CDT $ New Bag/Syringe 01/07/2023 6:11 AM CDT 20 mL/ hr levonorgestrel (Mirena) IUD 1 device 1 device, Intrauterine, DIRECTED, Starting on Fri01/07/23 at 0647, Until Fri01/07/23 at 1057 lidocaine PF (Xylocaine MPF) 1 % injection 0.2 mL 0.2 mL, Infiltration, PRE-OP MULTIPLE, 3 doses, Starting on Fri01/07/23 at 0530, Until Fri01/07/23 at 1057, May be used (0.2 ml locally to anesthetize prior to insertion)., Pre-op $ Given 01/07/2023 6:11 AM CDT 0.2 mL naloxone (Narcan) injection 0.04 mg 0.04 mg, Intravenous, POST-OP MULTIPLE, Starting on Fri01/07/23 at 0824, Until Fri01/07/23 at 1057, Notify physician immediately, and mix 0.4 mg Naloxone in 9 mL Normal Saline for slow IV push. Administer dilute Naloxone solution IV very slowly (1 mL over 30 seconds) while observing the patient response and titrating to effect. If no response, call Rapid Response, continue IV Naloxone at the same rate up to a total of 0.8 mg of diluted Naloxone., PACU ondansetron (Zofran) injection 4 mg 4 mg, Intravenous, ONCE PRN, Nausea/Vomiting, 1 dose, Starting on Fri01/07/23 at 0824, Until Fri01/07/23 at 1057, First choice, PACU ondansetron (Zofran) injection 8 mg 8 mg, Intravenous, ONCE PRN, Nausea/Vomiting, 1 dose, Starting on Fri01/07/23 at 0824, Until Fri01/07/23 at 1057, Second choice, use if first choice was ineffective., PACU phenazopyridine (Pyridium) tablet 200 mg 200 mg, Oral, ONCE, 1 dose, On Fri01/07/23 at 0530, Pre-op $ Given 01/07/2023 6:13 AM CDT 200 mg prochlorperazine (Compazine) injection 10 mg 10 mg, Intravenous, ONCE PRN, Nausea/Vomiting, 1 dose, Starting on Fri01/07/23 at 0824, Until Fri01/07/23 at 1057, Third choice, use if first and second choice was ineffective., PACU scopolamine (Transderm-Scop) 1 patch 1 patch, Administer over 72 Hours, EVERY 72 HOURS, 1 dose, First dose on Fri01/07/23 at 0530, Apply patch behind the ear, do not [...] of scopolamine over 72 hours. $ Applied 01/07/2023 6:12 AM CDT 1 patch Behind Right Ear scopolamine patch placement confirmation Transdermal, 2 TIMES DAILY, 6 doses, First dose on Fri01/07/23 at 0900, Last dose on Fri01/09/23 at 2100, Patient has a patch to be confirmed on transition to inpatient and 2 times daily., Pre-op / Post-op documented in this encounter Active and Recently Administered Medications Times are shown in CDT. Scheduled Medication Order 01/05/2023 01/06/2023 01/07/2023 0.9% NaCl injection 3 mL(Linked Group 1) 3 mL, Intracatheter, EVERY 8 HOURS, First dose on Fri01/07/23 at 0600, Until Discontinued, Flush peripheral IV catheter with 3 mL of normal saline every 8 hours., Pre-op 0600 (Due) acetaminophen (Tylenol) tablet 1,000 mg (COMPLETED) 1,000 mg, Oral, ONCE, 1 dose, On Fri01/07/23 at 0530, Patient preference for lesser PRN pain meds may be honored when the patient requests a less strong medication, a lower dose, or a less intrusive route of administration when the lesser drug, dose and route have been ordered for the patient. This patient request must be documented in the MAR., Pre-op 0613 ($ Given - Prov ider: Brenda Salcido RN) acetaminophen (Tylenol) tablet 650 mg 650 mg, Oral, EVERY 6 HOURS, 20 doses, First dose on Fri01/07/23 at 0900, Last dose on Fri01/12/23 at 0000, Patient preference for lesser PRN pain meds may be honored when the patient requests a less strong medication, a lower dose, or a less intrusive route of administration when the lesser drug, dose and route have been ordered for the patient. This patient request must be documented in the MAR., Post-op 0900 (Due) insulin regular human (HumuLIN R; NovoLIN R) 100 UNIT/ML injection 0-6 Units 0-6 Units, Intravenous, ONCE, 1 dose, On Fri01/07/23 at 0830, POC Glucose Regular Insulin Dose 0 - 180 mg/dL = 0 units 181 - 220 mg/dL = 3 units 221 - 260 mg/dL = 4 units 261 - 300 mg/dL = 5 units Above 300 mg/dL = 6 units . WASTE DISPOSAL INSTRUCTIONS: Black Bin Disposal required., PACU 0830 (Due) levonorgestrel (Mirena) IUD 1 device 1 device, Intrauterine, DIRECTED, Starting on Fri01/07/23 at 0647, Until Fri01/07/23 at 1057 lidocaine PF (Xylocaine MPF) 1 % injection 0.2 mL 0.2 mL, Infiltration, PRE-OP MULTIPLE, 3 doses, Starting on Fri01/07/23 at 0530, Until Fri01/07/23 at 1057, May be used (0.2 ml locally to anesthetize prior to insertion)., Pre-op 0611 ($ Given - Prov ider: Brenda Salcido RN) naloxone (Narcan) injection 0.04 mg 0.04 mg, Intravenous, POST-OP MULTIPLE, Starting on Fri01/07/23 at 0824, Until Fri01/07/23 at 1057, Notify physician immediately, and mix 0.4 mg Naloxone in 9 mL Normal Saline for slow IV push. Administer dilute Naloxone solution IV very slowly (1 mL over 30 seconds) while observing the patient response and titrating to effect. If no response, call Rapid Response, continue IV Naloxone at the same rate up to a total of 0.8 mg of diluted Naloxone., PACU phenazopyridine (Pyridium) tablet 200 mg (COMPLETED) 200 mg, Oral, ONCE, 1 dose, On Fri01/07/23 at 0530, Pre-op 0613 ($ Given - Prov ider: Brenda Salcido RN) scopolamine (Transderm-Scop) 1 patch(Linked Group 2) 1 patch, Administer over 72 Hours, EVERY 72 HOURS, 1 dose, First dose on Fri01/07/23 at 0530, Apply patch behind the ear, do not [...] 1 mg of scopolamine over 72 hours. 0612 ($ Applied - Pr ovider: Brenda Salcido RN)0954 (Due: Removed - Provider: Generic, Auto Release - Comment: Time automatically adjusted from order being discontinued) scopolamine patch placement confirmation(Linked Group 2) Transdermal, 2 TIMES DAILY, 6 doses, First dose on Fri01/07/23 at 0900, Last dose on Fri01/09/23 at 2100, Patient has a patch to be confirmed on transition to inpatient and 2 times daily., Pre-op / Post-op 0900 (Due) Continuous Medication Order 01/05/2023 01/06/2023 01/07/2023 lactated ringers infusion at 20 mL/hr, Intravenous, PRE-OP CONTINUOUS, Starting on Fri01/07/23 at 0545, Until Fri01/07/23 at 1057, Pre-op 0611 ($ New Bag/Syri nge - Provider: Brenda Salcido RN)0727 (Paused - Provider: VIRAJ Gresham - Comment: Switch to gravity)0728 (Restarted - Provider: VIRAJ Gresham)0814 (Anesthesia Volume Adjustment - Provider: VIRAJ Gresham) PRN Medication Order 01/05/2023 01/06/2023 01/07/2023 0.9% NaCl injection 1-10 mL(Linked Group 1) 1-10 mL, Intracatheter, PRN, Other, peripheral line flush, Starting on Fri01/07/23 at 0529, Until Fri01/07/23 at 1057, Flush peripheral IV catheter with 1-10 mL of normal saline before and after medications and prn to clear blood from the line or to verify patency., Pre-op BUPivacaine PF (Marcaine PF) 0.5 % injection (CANCELED) PRN, Starting on Fri01/07/23 at 0810, Until Fri01/07/23 at 0820, Intra-op 0810 ($ Given - Prov ider: Cole Garcia MD) fentaNYL (PF) (Sublimaze) injection 50 mcg 50 mcg, Intravenous, EVERY 10 MIN PRN, Mild Pain, 4 doses, Starting on Fri01/07/23 at 0824, Until Fri01/07/23 at 1057, Maximum total of 4 doses. If patient [...] in the MAR., PACU HYDROmorphone (Dilaudid) injection 0.2 mg 0.2 mg, Intravenous, EVERY 15 MIN PRN, Moderate Pain, 5 doses, Starting on Fri01/07/23 at 0824, Until Fri01/07/23 at 1057, Maximum total of 5 doses If patient reaches max total dose, [...] injection 0.5 mg 0.5 mg, Intravenous, EVERY 10 MIN PRN, Severe Pain, 4 doses, Starting on Fri01/07/23 at 0824, Until Fri01/07/23 at 1057, Maximum total of 4 doses If patient [...] ONCE PRN, Nausea/Vomiting, 1 dose, Starting on Fri01/07/23 at 0824, Until Fri01/07/23 at 1057, First choice, PACU ondansetron (Zofran) injection 8 mg 8 mg, Intravenous, ONCE PRN, Nausea/Vomiting, 1 dose, Starting on Fri01/07/23 at 0824, Until Fri01/07/23 at 1057, Second choice, use if first choice was ineffective., PACU prochlorperazine (Compazine) injection 10 mg 10 mg, Intravenous, ONCE PRN, Nausea/Vomiting, 1 dose, Starting on Fri01/07/23 at 0824, Until Fri01/07/23 at 1057, Third choice, use if first and second choice was ineffective., PACU Linked Groups Order Group 1: SALINE LOCK, INSERT AND MAINTAIN (CANCELED) Routine, CONTINUOUS, Starting on Fri01/07/23 at 0530, Until Specified, Pre-op, New collection And 0.9% NaCl injection 3 mLJump to med 3 mL, Intracatheter, EVERY 8 HOURS, First dose on Fri01/07/23 at 0600, Until Discontinued, Flush peripheral IV catheter with 3 mL of normal saline every 8 hours., Pre-op And 0.9% NaCl injection 1-10 mLJump to med 1-10 mL, Intracatheter, PRN, Other, peripheral line flush, Starting on Fri01/07/23 at 0529, Until 9/5/23 at 1057, Flush peripheral IV catheter with 1-10 mL of normal saline before and after medications and prn to clear blood from the line or to verify patency., Pre-op Group 2: scopolamine (Transderm-Scop) 1 patchJump to med 1 patch, Administer over 72 Hours, EVERY 72 HOURS, 1 dose, First dose on Fri01/07/23 at 0530, Apply patch behind the ear, do not [...] TIMES DAILY, 6 doses, First dose on Fri01/07/23 at 0900, Last dose on Fri01/09/23 at 2100, Patient has a patch to be confirmed on transition to inpatient and 2 times daily., Pre-op / Post-op documented in this encounter Care Teams Hand Stamper Relationship Specialty Start Date End Date Willis Veras MD [address] [place] [address] PCP - General 05/03/21 Cole Ku MD [address] [place] [address] General Surgery 11/10/20 documented as of this encounter
--- OUTSIDE RECORDS SUMMARY | 2024-04-25 13:58 | XMS_ITS | Encounter Summary ---
Author Organization [facility] Address [address] [place] [address] Care Team Providers Care Cigarette Machine Operator Name Role Phone Cole Ku MD Unavailable Willis Veras MD Primary Care Provider Reason for Visit * Auth/Cert (Routine) Specialty Diagnoses / Procedures Referred By Contac t Referred To Contact Diagnoses Diagnosis unknown Diagnosis unknown [R69] Procedures HYSTEROSCOPY WITH DILATION & CURETTAGE Referral ID Status Reason Start Date Expiration Date Visits Re quested Visits Authorized [id number] 1 1 Encounter Details Date Type Department Care Team (Latest Contact Info) Description 10/16/2022 5:23 AM CDT - 10/16/2022 10:50 AM CDT Hospital Encounter [facility] [address] [place] [address] Cole Beard MD [address] [facility] [address] [place] [address] Surgery General Discharge Disposition: Home or Self [...] Sign Reading Time Taken Comments Blood Pressure 142/70 10/16/2022 10:04 AM CDT Pulse 53 10/16/2022 10:04 AM CDT Temperature 36.2 ??C (97.1 ??F) 10/16/2022 9:30 AM CD T Respiratory Rate 16 10/16/2022 10:04 AM CDT Oxygen Saturation 100% 10/16/2022 10:04 AM CDT Inhaled Oxygen Concentration - - [...] - 10/10/2022 11:40 AM CDT Pre Op Branch Store Manager Onc History & Physical Per chart review [...] subsequentlystarted Tamoxifen. Patient developed post-menopausal bleeding in 2016 and 2018. Both episodes were evaluated with [...] Delivery Anes PTL Lv 3 2 1 MASTER COOK: Ob: 07/2102 ( x2, x1) Menopause: 50yo [...] tablet by mouth once daily ??? HYDROcodone-acetaminophen ([place]) 5-325 MG tablet Take 1 (one) tablet [...] results for input(s): ABORH in the last 54138 hours. Recent Labs Component Name 03/20/22 1036 [...] placement of IUD Surgeon: COLE BEARD MD Sap Portal Consultant: Sherri Dawn PGY4 Type of anesthesia: General [...] The lev onorgestrel IUD was placed per aquarium specialist instructions and the strings cut to 3cm ([place], Lot [id number], Exp 06/2025). The tenaculum was removed and [...] placement of IUD Surgeon: Cole Beard MD Sap Portal Consultant: Kiki Dawn MD Type of anesthesia: General [...] Beard MD 10/16/2022 0813 IUD: LOT # [id number], Expiration date 06/2025 Full operative note to follow Kiki Dawn MD 10/16/2022 8:38 AM documented in this encounter Plan of Treatment Upcoming Encounters Date Type Department Care Team (Late st Contact Info) Description 06/02/2024 10:30 AM SHAREPOINT MANAGER Office Visit [facility] - Orthopedic Surgery [address] [place] [phone] Kevin Britton MD [address] [facility] [address] [place] [address] 08/10/2024 1:00 PM CDT Office Visit [facility] - CUSTOMER EXPERIENCE CONSULTANT [address] [facility] [address] [place] [phone] Daja Mir MD [address] [place] [address] 10/26/2024 1:00 PM CDT Office Visit [facility] - Hematology/Oncology [address] [place] [phone] Elizabeth Beard MD [address] [facility] 3 [place] [address] 01/17/2025 12:30 PM CDT Procedure visit [facility] - GI [address] [place] [address], [place] [phone] 01/17/2025 1:00 PM CDT Office Visit [facility] - GI [address] [place] [address], [place] [phone] Marlena Mccoy, DEALER CARD ROOM-INTERIOR DESIGN PROFESSIONAL [address] [place] [address] [address] [place] [address] documented as of this encounter Goals Goal Patient Goal Type Associated Problems Recent Progress Patient-Stated? Author Mobility General On track( 021 9:08 AM SHAREPOINT MANAGER) Tika Cunha, RN Note: Expected end date: 05/05/2019 The [...] Routine 10/16/2022 8:13 AM CDT Diagnosis unknown NM HYSTEROSCOPY,W/ENDO BX 10/16/2022 6:40 AM CDT Diagnosis [...] Case Report Surgical Pathology Report ? Case: [id number] ? Authorizing Provider: ??Cole Beard MD ?Collected: ? 10/16/2022 08:13 AM ? Ordering Location: ? [facility] ? Received: ?10/16/2022 09:03 AM ? Pathologist: ? Maxine Talbert MD ? Specimen: ?Endometrium Biopsy ? 10/17/2022 10:39 AM [facility] Final Diagnosis Uterus, endometrium, curettage - Inactive endometrium and benign squamous epithelium with detached fragments of squamous morules, without evidence of hyperplasia or malignancy 10/17/2022 10:39 AM [facility] Clinical History The patient is a 57-year-old woman with history of endometrial hyperplasia. Operative procedure: dilation and curettage, placement of intrauterine device. 10/17/2022 10:39 AM [facility] Gross Description The specimen is identified with patient's name and date of . Received in formalin, specimen ? A, endometrial curettings? is a 1.6 x 1.6 x 0.3 cm aggregate of purple red tissue and blood clot. Entirely submitted in cassette A1. LJ 10/17/2022 10:39 AM [facility] Microscopic Description Microscopic examination substantiates the above diagnosis. 10/17/2022 10:39 AM [facility] Pathologist Location at [facility] 10/17/2022 10:39 AM [facility] Disclaimer All histochemical and/or immunohistochemical results are interpreted with controls that demonstrate appropriate staining reactions before reporting results. Note on use of immunocytochemistry reagents: This test was developed and its performance characteristic determined by [facility], Department of Laboratory Medicine. It [...] interpreted with caution. 10/17/2022 10:39 AM CDT [facility] Embedded Images 10/17/2022 10:39 AM CDT [facility] Pathology/Cytolo gy OPEN BIOPSY OF ENDOMETRIUM / Unknown 10/16/2022 8:13 AM CDT 10/16/2022 9:03 AM CDT Comment:Pre-op diagnosis: Diagnosis unknown [R69] Cole Beard MD LAB - PATHOLOGY/CYTO LOGY ORDERABLES Performing Organization Address City/[facility]/ZIP Co de Phone Number [facility] [address] [place] [address] * BLOOD TYPE VERIFICATION (10/16/2022 6:28 AM CDT) ABO Rh O POS 10/16/2022 7:0 3 AM CDT [facility] Blood Bank BLOOD SPECIMEN / Unknown Venipuncture / Unknown 10/16/2022 6:28 AM CDT 10/16/2022 6:32 AM CDT Kevin Walters DO LAB - BLOOD BANK ORD ERABLES [facility] [address] [place] [address] * TYPE + SCREEN PANEL (10/16/2022 6:25 AM CDT) ABO Rh O POS 10/16/2022 7:03 AM CDT [facility] Comment:No history; collect retype. Antibody Screen NEG 7:03 AM CDT [facility] Blood Bank BLOOD SPECIMEN / Unknown Venipuncture / Unknown 10/16/2022 6:25 AM CDT 10/16/2022 6:27 AM CDT Cole Beard MD LAB - BLOOD BANK ORD ERABLES [facility] [address] [place], [place] [address] [phone] documented in this encounter Visit Diagnoses Diagnosis Pre-op testing- Primary Preoperative examination, unspecified Diagnosis unknown Other unknown and unspecified cause of morbidity or mortality Postmenopausal bleeding documented in this encounter Administered Medications Inactive [...] Given 10/16/2022 6:11 AM CDT 1,000 mg fentaNYL (PF) (Sublimaze) [...] Post-op documented in this encounter Care Teams Cigarette Machine Operator Relationship Specialty Start Date End Date Willis Veras MD [address] [place] [address] PCP - General 05/03/21 Cole Ku MD [address] OF [facility] [address] General Surgery 11/10/20 documented as of this encounter
--- OUTSIDE RECORDS SUMMARY | 2024-04-25 13:58 | XMS_ITS | Encounter Summary ---
Author Organization [facility] Address [address] [facility] [place] [address] Care Team Providers Care Ironworker Machine Operator Name Role Phone Cole Ku MD Unavailable Willis Veras MD Primary Care Provider Encounter Details Date Type Department Care Team (Latest Contact Info) Description 10/21/2022 Travel Social History Tobacco Use Types Packs/Day [...] st Contact Info) Description 06/02/2024 10:30 AM HRIS ANALYST Office Visit [facility] - Orthopedic Surgery [address] [place] [phone] Kevin Britton MD [address] [facility] [address] [place] [address] 08/10/2024 1:00 PM CDT Office Visit [facility] - DIRECTOR OF ENTERTAINMENT [address] [facility] 400 [place] [phone] Daja Mir MD [address] [place] [address] 10/26/2024 1:00 PM CDT Office Visit [facility] - Hematology/Oncology [address] [place] [phone] Elizabeth Garcia MD [address] [facility] 3 [place] [address] 01/17/2025 12:30 PM CDT Procedure visit [facility] - GI [address] [place] [phone] 01/17/2025 1:00 PM CDT Office Visit [facility] - GI [address] [place] [phone] Marlena Mccoy, AEROSPACE MECHANIC-GRADING MACHINE FEEDER [address] [place] [address] [facility] [place] [address] documented as of this encounter Goals Goal Patient Goal Type Associated Problems Recent Progress Patient-Stated? Author Mobility General On track( 021 9:08 AM HRIS ANALYST) No Tika Pope, SABRINA Note: Expected end [...] on filedocumented in this encounter Care Teams Ironworker Machine Operator Relationship Specialty Start Date End Date Willis Veras MD [address] [place] [address] PCP - General 05/03/21 Cole Ku MD [address] [place] [address] General Surgery 11/10/20 documented as of this encounter
--- OUTSIDE RECORDS SUMMARY | 2024-04-25 13:58 | XMS_ITS | Encounter Summary ---
Author Organization [facility] Address [address] [facility] [place] [address] Care Team Providers Care Manager Inpatient Name Role Phone Cole Ku MD Unavailable Willis Veras MD Primary Care Provider Reason for Visit * Reason Onset Date Comments Future Appointment 11/04/2022 Encounter Details Date Type Department Care Team (Late st Contact Info) Description 11/04/2022 Telephone [facility] - EMBOSSING TOOLSETTER [address] [facility] [address] [place] [address] Daja Britt, RN Future Appointment Social History Tobacco Use Types Packs/Day Years [...] encounter Miscellaneous Notes * Telephone Encounter - Daja Britt RN - 11/04/2022 9:57 AM CDT Pt appt with Dr. Garcia rescheduled to , 11/06/2022 @ 10:00 am. Pt verbalized understanding. documented in this encounter Plan of Treatment Upcoming Encounters Date Type Department Care Team (Late st Contact Info) Description 06/02/2024 10:30 AM ANODISER Office Visit [facility] - Orthopedic Surgery [address] [place] [phone] Kevin Britton MD 10[address] [facility] [address] [place] [address] 08/10/2024 1:00 PM CDT Office Visit [facility] - EMBOSSING TOOLSETTER [address] [facility] 400 [place] [phone] Daja Mir MD [address] [place] [address] 10/26/2024 1:00 PM CDT Office Visit [facility] - Hematology/Oncology [address] [place] [phone] Elizabeth Garcia MD [address] [place] [address] [place] [address] 01/17/2025 12:30 PM CDT Procedure visit [facility] - GI [address] [facility], [place] [phone] 01/17/2025 1:00 PM CDT Office Visit [facility] - GI [facility] [facility], [place] [phone] Marlena Mccoy, FLEET MAINTENANCE MANAGER-VAN DRIVER HELPER [address] [place] [address] [address] [place] [address] documented as of this encounter Goals Goal Patient Goal Type Associated Problems Recent Progress Patient-Stated? Author Mobility General On track( 021 9:08 AM ANODISER) No Tika Pope, RN Note: Expected end [...] on filedocumented in this encounter Care Teams Manager Inpatient Relationship Specialty Start Date End Date Willis Veras MD [address] [place] [address] PCP - General 05/03/21 Cole Ku MD [address] [place] [address] [address] [place] [address] General Surgery 11/10/20 documented as of this encounter
--- OUTSIDE RECORDS SUMMARY | 2024-04-25 13:58 | XMS_ITS | Encounter Summary ---
Author Organization [facility] Address [address] [facility] [place] [address] Care Team Providers Care Torts Law Professor Name Role Phone Cole Ku MD Unavailable Willis Veras MD Primary Care Provider Reason for Visit * Reason Onset Date Comments Appointment 10/22/2022 I call patient a nd I have her schedule for1 year f/u with Dr Byers for October @ 3pm Patient ask when should she have her mammogram done Encounter Details Date Type Department Care Team (Late st Contact Info) Description 10/22/2022 Telephone [facility] - Hematology/Oncology [address] [place] [address] Jonel, Margot Ram MA Appointment (I call patient and I have her schedule for1 year f/u with Dr Byers for October @ 3pm /Patient ask when should she have her mammogram done ) Social History Tobacco Use Types Packs/Day [...] encounter Miscellaneous Notes * Telephone Encounter - Margot Remy MA - 10/22/2022 10:02 AM CDT I call patient and I have her schedule for1 year f/u with Dr Byers for October @ 3pm Patient ask when should she have her mammogram done documented in this encounter Plan of Treatment Upcoming Encounters Date Type Department Care Team (Late st Contact Info) Description 06/02/2024 10:30 AM TELEPHONE SOLICITOR Office Visit [facility] - Orthopedic Surgery [address] [place] [phone] Kevin Britton MD [address] [facility] [address] [place] [address] 08/10/2024 1:00 PM CDT Office Visit [facility] - NUTRITIONIST PUBLIC HEALTH [address] [facility] [address] [place] [address] Daja Mir MD [address] [facility] [place] [address] 10/26/2024 1:00 PM CDT Office Visit [facility] - Hematology/Oncology [address] [place] [address] Elizabeth Garcia MD [address] [facility] 3 [place] [address] 01/17/2025 12:30 PM CDT Procedure visit [facility] [place] [address] [place] [address], [place] [address] 01/17/2025 1:00 PM CDT Office Visit [facility] - GI [address] [place] [address], [place] [address] Marlena Mccoy, TRIMMER BUFFING WHEEL-COMPUTER AIDED DESIGN DRAFTER [address] [place] [address] [facility] [place] [address] documented as of this encounter Goals Goal Patient Goal Type Associated Problems Recent Progress Patient-Stated? Author Mobility General On track( 021 9:08 AM TELEPHONE SOLICITOR) No Tika Pope, SABRINA Note: Expected end [...] on filedocumented in this encounter Care Teams Torts Law Professor Relationship Specialty Start Date End Date Willis Veras MD [address] [place] [address] PCP - General 05/03/21 Cole Ku MD [address] [facility] 2L [place] [address] General Surgery 11/10/20 documented as of this encounter
--- OUTSIDE RECORDS SUMMARY | 2024-04-25 13:58 | XMS_ITS | Encounter Summary ---
Author Organization [facility] Address [address] [facility] [place] [address] Care Team Providers Care Truck Farmer Name Role Phone Cole Ku MD Unavailable Willis Veras MD Primary Care Provider Reason for Visit * Auth/Cert (Routine) Specialty Diagnoses / Procedures Referred By Americo t Referred To Contact Diagnoses Diagnosis unknown Diagnosis unknown [R69] Procedures ND HYSTEROSCOPY,W/ENDO BX HYSTEROSCOPY WITH DILATION & CURETTAGE Referral ID Status Reason Start Date Expiration Date Visits Re quested Visits Authorized [id number] 1 1 Encounter Details Date Type Department Care Team (Late st Contact Info) Description 01/07/2023 7:28 AM CDT Anesthesia Event [facility] PERIOPERATIVE [address] [place] [address] Sweetie Nugent DO [address] [place], [place] [id number] Anesthesia Record Procedure Summary Procedure Name Responsible Anesthesiologist Anesthesia Start Time Anesthesia Stop Time HYSTEROSCOPY WITH DILATION & CURETTAGE, REMOVAL & REPLACEMENT OF INTRAUTERINE DEVICE (Vagina ) Sweetie Nugent DO 01/07/23 0728 01/07/23 0825 Events Date Time Event Comment 01/07/2023 0728 An Start 0728 An Start Data 0734 PT Reassessment 0735 Induction 0736 An LMA 0754 Timeout Anesthesia part icipated in timeout at the time documented in the record by nursing. 0816 An LMA Removed 0818 an stop data 0818 Electnc Sig This record is electronically signed by the providers listed under staff. 0818 ANPTO2 0825 An Stop Meds Name Total midazolam 2 mg/2mL injection 2 mg fentaNYL 100 mcg/2mL injection 75 mcg lidocaine 2% injection (20 mg/ml) 100 mg propofol 200mg/20mL injection 150 mg dexamethasone 4 mg/ml injection 8 mg ondansetron 4 mg/2mL injection 4 mg magnesium sulfate 1000 mg/2mL injection 2 g lactated ringers infusion 500 mL * Agents Name Exp. Sevoflurane Exp. N2O O2 Insp. Sevoflurane N2O * Blood No blood administrations on file. Lines, Drains, and Airways Type Details Placement Removal Peripheral IV Date: 01/07/23; Time : 604; Orientation: Right; Placed By: gurwinder; Tolerance: Well 01/07/23 0605 by Brenda Salcido RN 01/07/23 0937 by Mary Alice Og RN LMA 01/07/23; 0736 (created via procedure documentation); VIRAJ Gresham; 100% O2; Standard IV; easy mask; LMA; 4.0; CO2 Monitor; 01/07/23; 0816 01/07/23 0736 by John Mendoza APRN-CRNA 01/07/23 0816 by John Mendoza APRN-CRNA Procedural Site (Incision) 01/07/23; 0755; Vagina; 01/07/23; 1556 01/07/23 0755 by Jaciel Thomas RN 01/07/23 1556 by Generic, Auto Release documented in this [...] as of this encounter Progress Notes * Diaz Rodriguez MD - 01/07/2023 4:38 PM CDT ANESTHESIA POSTOP EVALUATION NOTE Procedure: HYSTEROSCOPY WITH DILATION & CURETTAGE, REMOVAL & REPLACEMENT OF INTRAUTERINE DEVICE (Vagina ) Milagros Torres is a 57 year old female No data found. Anesthesia Type: general LMA Pre-op Diagnosis Codes: * Diagnosis unknown [R69] Mental Status: awake, neurologic status has returend to expected level of consciousness and alert Neuro Status: No numbess, tingling or visual disturbances Respiratory Function: natural Cardiac Function: stable Postop Pain: acceptable to the patient Postop Hydration: adequate Postop Nausea: none Assessment: no apparent anesthetic complications, patient tolerated procedure well and no evidence of recall Patient Disposition: Release from Anesthesia Care NOTABLE EVENTS: No notable events documented. * Sweetie Nugent DO - 01/07/2023 6:52 AM CDT ANESTHESIA PREOPERATIVE EVALUATION NOTE Procedure: HYSTEROSCOPY WITH DILATION & CURETTAGE, REMOVAL & REPLACEMENT OF INTRAUTERINE DEVICE (Vagina ) NPO status: Since Midnight; Not Applicable (01/07/2023 5:55 AM) Vitals: No data found. LMP: No LMP recorded. Patient is postmenopausal. OB Status: Postmenopausal ANESTHESIA PRE-EVALUATION NOTE The patient is a current non-smoker. The patient was instructed to abstain from smoking on day of procedure. The patient did not smoke on the day of the procedure. Physical Exam: Orientation X3 Airway/Mallampati Score: II [...] liquids within 2 hours Anesthesia Plan: general Planned Induction: intravenous Planned Postop Destination: PACU Anesthetic plan was discussed with: patient Anesthetic Plan discussion was: Consented The patient's procedural Anesthetic Plan was discussed with the anesthesiologist, [employer] and surgeon. BMI, Height, Weight Tobacco History Estimated body mass index is 32.73 kg/m?? as calculated from the following: Height as of an earlier encounter on 01/07/23: 1.702 m (5' 7 ). Weight as of an earlier encounter on 01/07/23: 94.8 kg (209 lb). Social History Tobacco Use Smoking Status Never Smokeless Tobacco Never Vaping Use ??? Vaping Use: Never used Alcohol History Drug History Social History Substance and Sexual Activity Alcohol Use Yes Comment: ocassional weekends Social History Substance and Sexual Activity Drug Use Never Outpatient Medications: Inpatient Medications: No outpatient medications have been marked as taking for the 01/07/23 encounter (Anesthesia Event) with Sweetie Nugent DO. No current facility-administered medications for this visit. Facility-Administered Medications Ordered in Other Visits Medication Dose Last Admin ??? 0.9% NaCl 3 mL And ??? 0.9% NaCl 1-10 mL ??? lactated ringers New Bag at 01/07/23 0611 ??? levonorgestrel 1 device ??? lidocaine 0.2 mL 0.2 mL at 01/07/23 0611 ??? scopolamine 1 patch 1 patch at 01/07/23 0612 And ??? 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 Patient is postmenopausal. Postmenopausal OB History Para Term AB Living 3 0 0 0 0 0 SAB IAB Ectopic Multiple Live Births 0 0 0 0 0 # Outcome Date GA Lbr Fabiano/2nd Weight Sex Delivery Anes PTL Lv 3 2 1 Covid Vaccine: Lab Results: Recent Labs Component Name 01/07/23 0608 WBC 5.0 RBC 4.04 HCT 37.3 HGB 12.4 PLTCOUNT 144* MCV 92.3 MCH 30.7 MCHC 33.2 MPV 11.8 Recent Labs Component Name 01/07/23 0608 ABORH O POS ABSCG NEG Recent Labs Component Name 01/07/23 0608 SODIUM 141 POTASSIUM 3.9 CALCIUM 9.7 CHLORIDE 110* CO2 22 GLUCOSE 95 BUN 15 CREATININE 0.88 No results found for requested labs within last 120 days. Recent Labs Result Component Current Result Alkaline Phosphatase 77 (10/21/2022) ALT 80 (H) (10/21/2022) Anion Gap 9 (01/07/2023) AST 102 (H) (10/21/2022) eGFR by CKD-EPI 76 (L) (01/07/2023) documented in this encounter Procedure Notes * John Mendoza APRN-CRNA - 01/07/2023 7:46 AM CDTAssociated Order(s): LMA Placement LMA Placement Procedure/LDA Note: Patient Location: OR. LMA Insertion Date/Time: 01/07/2023 7:36 AM Procedure: LMA. Pretreatment: 100% O2 Induction: standard IV Patient position: supine. Mask Ventilation: easy Type: LMA Size: 4 Number of Attempts: 1. Placement verified by: CO2 monitor Dentition unchanged? Yes Procedure Start Time: 01/07/2023 7:36 AM. Staff Section Anesthesia Provider: John Mendoza APRN-CRNA, Performed the procedure Provider #1: Sweetie Nugent DO. documented in this encounter Miscellaneous Notes * Anesthesia Transfer of Care - John Mendoza APRN-CRNA - 01/07/2023 8:25 AM CDT ANESTHESIA TRANSFER OF CARE NOTE Today's Date: 01/07/2023 Date of : 1965 Patient: Milagros Torres Procedure(s): HYSTEROSCOPY WITH DILATION & CURETTAGE, REMOVAL & REPLACEMENT OF INTRAUTERINE DEVICE Surgeon(s): Primary: Cole Garcia MD Preop Diagnosis: Pre-op Diagnois: * Diagnosis unknown [R69] Pre-op Meds (From admission, onward) Start Stop Status Route Frequency Ordered 01/07/23 05 0.9% NaCl injection 1-10 mL See Hyperspace for full Linked Orders Report. -- Dispensed IK PRN 01/07/23 0529 01/07/23 0600 0.9% NaCl injection 3 mL See Hyperspace for full Linked Orders Report. -- Dispensed IK EVERY 8 HOURS 01/07/23 0501/07/23 05 acetaminophen (Tylenol) tablet 1,000 mg 01/07/23 0613 Completed PO ONCE 01/07/2352801/07/23823 fentaNYL (PF) (Sublimaze) injection 50 mcg -- Sent IV EVERY 10 MIN PRN 01/07/23 0824 01/07/23 0824 HYDROmorphone (Dilaudid) injection 0.2 mg -- Sent IV EVERY 15 MIN PRN 01/07/23 0824 01/07/23 08 HYDROmorphone (Dilaudid) injection 0.5 mg -- Sent IV EVERY 10 MIN PRN 01/07/23 0824 01/07/23 08 insulin regular human (HumuLIN R; NovoLIN R) 100 UNIT/ML injection 0-6 Units 01/07/232028 Sent IV ONCE 01/07/23 0824 01/07/23 0545 lactated ringers infusion -- Verified IV PRE-OP CONTINUOUS 01/07/23 0531 01/07/23 0647 levonorgestrel (Mirena) IUD 1 device -- Dispensed IU DIRECTED 01/07/23 0647 01/07/23529 lidocaine PF (Xylocaine MPF) 1 % injection 0.2 mL -- Verified INFILTRATION PRE-OP MULTIPLE 01/07/23 0531 01/07/23 08 naloxone (Narcan) injection 0.04 mg -- Sent IV POST-OP MULTIPLE 01/07/23 0824 01/07/23 0824 ondansetron (Zofran) injection 4 mg -- Sent IV ONCE PRN 01/07/23 0824 01/07/23 08 ondansetron (Zofran) injection 8 mg -- Sent IV ONCE PRN 01/07/23 0824 01/07/23 05 phenazopyridine (Pyridium) tablet 200 mg 01/07/23 06 Completed PO ONCE 01/07/23 0501/07/23 08 prochlorperazine (Compazine) injection 10 mg -- Sent IV ONCE PRN 01/07/23 0824 01/07/23 05 scopolamine (Transderm-Scop) 1 patch See Hyperspace for full Linked Orders Report. 01/10/23 0612 Verified TD EVERY 72 HOURS 01/07/23 0501/07/23 09 scopolamine patch placement confirmation See Hyperspace for full Linked Orders Report. 01/10/23 0859 Verified TD 2 TIMES DAILY 01/07/23 05 Post-op Diagnosis: * Diagnosis unknown [R69] . No Known Allergies Vitals: Patient Vitals for the past 3 hrs: BP Temp Pulse Resp SpO2 Pain Rating Score #1 01/07/23 0553 129/72 97.6 ??F (36.4 ??C) 56 20 97 % 0 Lines, Drains, and Airways Type Details Placement Removal Peripheral IV Date: 01/07/23; Time: 604; Orientation: Right; Location: Hand; Placed By: gurwinder; Gauge: 22 Gauge ; Locals: Trans Dermal; Tolerance: Well 01/07/23 06 by Brenda Salcido RN LMA 01/07/23; 0736 (created via procedure documentation); EARL Gresham CRNA; 100% O2; Standard IV; easy mask; LMA; 4.0; CO2 Monitor; 01/07/23; 0816 01/07/23 0736 by John Mendoza APRN-CRNA 01/07/23 0816 by John Mendoza APRN-CRNA Intraprocedure I/O Totals Intake lactated ringers infusion 500.00 mL I.V. 500 mL Total Intake 1000 mL Output Urine 100 mL Estimated Blood Loss 5 mL Total Output 105 mL Net Net Volume 895 mL Patient Transfer Location: PACU Transport Airway: oral airway, spontaneous respirations and supplemental O2 Complications: None [...] of report from the receiving PACUteam. VIRAJ Gresham documented in this encounter Plan of Treatment Upcoming Encounters Date Type Department Care Team (Late st Contact Info) Description 06/02/2024 10:30 AM VP REVENUE CYCLE Office Visit [facility] - Orthopedic Surgery [address] [place] [address] Kevin Britton MD [address] [place] [address] 08/10/2024 1:00 PM CDT Office Visit [facility] - PAPER BAG MAKING MACHINIST [address] [facility] [address] [place] [address] Daja Mir MD [address] [facility] [place] [address] 10/26/2024 1:00 PM CDT Office Visit [facility] - Hematology/Oncology [address] [place] [address] Elizabeth Garcia MD [address] [facility] 3 [place] [address] 01/17/2025 12:30 PM CDT Procedure visit [facility] - GI [address] [facility], [place] [address] 01/17/2025 1:00 PM CDT Office Visit [facility] - GI [address] [facility] [place] [address] Marlena Mccoy, CAMILLA-DARY [address] [facility] [place] [address] documented as of this encounter Goals Goal Patient Goal Type Associated Problems Recent Progress Patient-Stated? Author Mobility General On track( 021 9:08 AM VP REVENUE CYCLE) No Tika Pope, RN Note: Expected end [...] Procedure Name Priority Date/Time Associated Diagnosis Comments LARYNGEAL MASK AIRWAY Routine 01/07/2023 7:46 AM CDT documented in this encounter Results * LARYNGEAL MASK AIRWAY (01/07/2023 7:46 AM CDT) Narrative John Mendoza APRN-CRNA - 01/07/2023 7:46 AM CDT John Mendoza APRN-CRNA ? 01/07/2023 ??7:47 AM LMA Placement Procedure/LDA [...] DO. Sweetie Nugent DO GENERAL ANESTHESIA ORDERABLES documented in this encounter Visit Diagnoses Not on filedocumented in this encounter Administered Medications Inactive Administered Medications - up to 3 most recent administrations Medication Order MAR Action Action Date Dose Rate Site dexAMETHasone (Decadron) injection Intravenous, PRN, Starting on Fri01/07/23 at 0745, Until Fri01/07/23 at 0820, Anesthesia Intra-op $ Given 01/07/2023 7:45 AM CDT 8 mg fentaNYL (PF) (Sublimaze) injection Intravenous, PRN, Starting on Fri01/07/23 at 0754, Until Fri01/07/23 at 0820, Anesthesia Intra-op $ Given 01/07/2023 7:54 AM CDT 75 mcg lactated ringers infusion at 20 mL/hr, Intravenous, PRE-OP CONTINUOUS, Starting on Fri01/07/23 at 0545, Until Fri01/07/23 at 1057, Pre-op Restarted 01/07/2023 7:28 AM CDT $ New Bag/Syringe 01/07/2023 6:11 AM CDT 20 mL/ hr lidocaine HCl (PF) (Xylocaine MPF) 2 % injection Intravenous, PRN, Starting on Fri01/07/23 at 0735, Until Fri01/07/23 at 0820, Anesthesia Intra-op $ Given 01/07/2023 7:35 AM CDT 100 mg magnesium sulfate injection Intravenous, PRN, Starting on Fri01/07/23 at 0754, Until Fri01/07/23 at 0820, Anesthesia Intra-op $ Given 01/07/2023 7:54 AM CDT 2 g midazolam (Versed) injection Intravenous, PRN, Starting on Fri01/07/23 at 0728, Until Fri01/07/23 at 0820, Anesthesia Intra-op $ Given 01/07/2023 7:28 AM CDT 2 mg ondansetron (Zofran) injection Intravenous, PRN, Starting on Fri01/07/23 at 0745, Until Fri01/07/23 at 0820, Anesthesia Intra-op $ Given 01/07/2023 7:45 AM CDT 4 mg propofol (Diprivan) injection Intravenous, PRN, Starting on Fri01/07/23 at 0735, Until Fri01/07/23 at 0820, Anesthesia Intra-op $ Given 01/07/2023 7:35 AM CDT 150 mg documented in this encounter Care Teams Truck Farmer Relationship Specialty Start Date End Date Willis Veras MD [address] [place] [address] PCP - General 05/03/21 Cole Ku MD [address] OF [facility] [place] [phone] General Surgery 11/10/20 documented as of this encounter
--- OUTSIDE RECORDS SUMMARY | 2024-04-25 13:58 | XMS_ITS | Encounter Summary ---
Author Organization [facility] Address [address] [facility] [place] [address] Care Team Providers Care Log Turner Name Role Phone Cole Ku MD Unavailable Willis Veras MD Primary Care Provider Reason for Visit * Reason Onset Date Comments Results 01/10/2023 Encounter Details Date Type Department Care Team (Late st Contact Info) Description 01/10/2023 Telephone [facility] - DEVELOPMENT AND HOUSING DIRECTOR [address] [facility] [address] [place] [address] Cole Garcia MD [address] [facility] [address] [place] [address] Results Social History Tobacco Use Types Packs/Day Years [...] encounter Miscellaneous Notes * Telephone Encounter - Cole Garcia MD - 01/10/2023 1:46 PM CDT Called patient to discuss results. Reviewed results from recent procedure. 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 Patient has f/u scheduled with Dr. Major on 01/22. Given lack of invasive disease and lng-IUD in p jose l, I informed patient that more urgent follow up is not needed given the low likelihood of significant disease progression during this time. Patient had all questions answered and expressed understanding and agreement with the plan. 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 Office Visit [facility] - Orthopedic Surgery [facility] [place] [address] [place] [address] [place] [address] [address] [place] [address] 08/10/2024 1:00 PM CDT Office Visit [facility] - DEVELOPMENT AND HOUSING DIRECTOR [address] [facility] [address] [place] [address] Daja Mir MD [address] [facility] [place] [address] 10/26/2024 1:00 PM CDT Office Visit [facility] - Hematology/Oncology [address] [place] [phone] Elizabeth Garcia MD [address] [facility] [address] [place] [address] 01/17/2025 12:30 PM CDT Procedure visit [facility] [place] [address] [place] [address], [place] [phone] 01/17/2025 1:00 PM CDT Office Visit [facility] - GI [address] [place] [address], [place] [address] Marlena Mccoy, BOILER OUT-BIOLOGICAL AIDE [address] [place] [address] [facility] [place] [address] documented as of this encounter Goals Goal Patient Goal Type Associated Problems Recent Progress Patient-Stated? Author Mobility General On track( 021 9:08 AM TECHNICAL TESTING ENGINEER) No Tika Pope, SABRINA Note: Expected end [...] on filedocumented in this encounter Care Teams Log Turner Relationship Specialty Start Date End Date Willis Veras MD [address] [place] [address] PCP - General 05/03/21 Cole Ku MD [address] OF [facility] [place] [address] General Surgery 11/10/20 documented as of this encounter
--- OUTSIDE RECORDS SUMMARY | 2024-04-25 13:58 | XMS_ITS | Encounter Summary ---
Author Organization [facility] Address [address] [facility] [place] [address] Care Team Providers Care Cross Cut Sawyer Name Role Phone Cole Ku MD Unavailable Willis Veras MD Primary Care Provider Reason for Referral * Radiology Services (Routine) - Closed Specialty Diagnoses / Procedures Referred By Contac t Referred To Contact Hematology-Oncology Diagnoses History of breast cancer Malignant neoplasm of upper-inner quadrant of left breast in female, estrogen receptor positive (HCC) Procedures MAMMO LEFT DIAGNOSTIC W Araseli Hale MD [address] [place] [address] Referral ID Status Reason Start Date Expiration Date Visits Re quested Visits Authorized [id number] Closed 11/06/2022 11/06/2023 1 1 Encounter Details Date Type Department Care Team (Late st Contact Info) Description 11/06/2022 Orders Only [facility] - Hematology/Oncology [address] [place] [address] Araseli Byers MD [address] [place] [address] History of breast cancer ; Malignant neoplasm of upper-inner quadrant of left breast in female, estrogen receptor positive (HCC) Social History Tobacco Use Types Packs/Day Years [...] st Contact Info) Description 06/02/2024 10:30 AM 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 [place] [address] 10/26/2024 1:00 PM CDT Office Visit [facility] - Hematology/Oncology [address] [place] [phone] Elizabeth Garcia MD [address] [facility] 3 [place] [address] 01/17/2025 12:30 PM CDT Procedure visit [facility] [place] [address] [place] [address], [place] [phone] 01/17/2025 1:00 PM CDT Office Visit [facility] - GI [address] [place] [address], [place] [phone] Marlena Mccoy, LINE PATROLMAN-CARBON CAPTURE POWER PLANT OPERATOR [address] [place] [address] [facility] [place] [address] documented as of this encounter Goals Goal Patient Goal Type Associated Problems Recent Progress Patient-Stated? Author Mobility General On track( 021 9:08 AM COMPOSING MACHINE OPERATOR) No Tika Pope, SABRINA Note: Expected [...] documented as of this encounter Results * (ABNORMAL) MAMMO LEFT DIAGNOSTIC W SHAQUILLE (04/22/2023 1:27 PM COMPOSING MACHINE OPERATOR) Anatomical Region Laterality Modality Breast Left Mammography 04/22/2023 2:38 PM COMPOSING MACHINE OPERATOR Impressions 04/22/2023 3:07 PM COMPOSING MACHINE OPERATOR : Overall stable grouped microcalcifications associated with [...] 04/22/2023 3:07 PM Narrative 04/22/2023 3:07 PM COMPOSING MACHINE OPERATOR EXAMINATION: DIGITAL MAMMO LEFT DIAGNOSTIC W SHAQUILLE WITH TOMOSYNTHESIS AND WITH CAD LOCATION: [facility] EXAM DATE: ??04/22/2023 HISTORY: 57-year-old female presents for six-month follow-up to assess stability of microcalcifications associated with her prior lumpectomy site in the upper central left breast, felt to represent developing calcifying fat necrosis. Of note, the patient has a history of left breast cancer and underwent lumpectomy in 2016 COMPARISON: Comparison is made to prior mammograms [...] encounter Visit Diagnoses Diagnosis History of breast cancer- Primary Personal history of malignant neoplasm of breast Malignant neoplasm of upper-inner quadrant of left breast in female, estrogen receptor positive (HCC) History of breast cancer Personal history of malignant neoplasm of breast Malignant neoplasm of upper-inner quadrant of left breast in female, estrogen receptor positive (HCC) documented in this encounter Care Teams Cross Cut Sawyer Relationship Specialty Start Date End Date Willis Veras MD [address] [place] [address] PCP - General 05/03/21 Cole Ku MD [address] OF [facility] [place] [address] General Surgery 11/10/20 documented as of this encounter
--- OUTSIDE RECORDS SUMMARY | 2024-04-25 13:58 | XMS_ITS | Encounter Summary ---
Author Organization [facility] Address [address] [facility] [place] [address] Care Team Providers Care Wellness Educator Name Role Phone Cole Ku MD Unavailable Willis Veras MD Primary Care Provider Reason for Referral * Radiology Services (Routine) - Closed Specialty Diagnoses / Procedures Referred By Americo peters Referred To Contact Mammography Diagnoses History of breast cancer Procedures MAMMO LEFT DIAGNOSTIC W Araseli Hale MD [address] [place] [address] [facility] Op [address] [place] [address] Referral ID Status Reason Start Date Expiration Date Visits Re quested Visits Authorized [id number] Closed 10/21/2022 10/21/2023 1 1 Reason for Visit * Radiology Services (Routine) - Closed Specialty Diagnoses / Procedures Referred By Americo peters Referred To Contact Mammography Diagnoses History of breast cancer Procedures MAMMO LEFT DIAGNOSTIC W Araseli Hale MD [address] [place] [address] [facility] [address] Breast [place] Op [address] [place] [address] Referral ID Status Reason Start Date Expiration Date Visits Re quested Visits Authorized [id number] Closed 10/21/2022 10/21/2023 1 1 Encounter Details Date Type Department Care Team (Latest Contact Info) Description 10/28/2022 2:23 PM CDT - 10/28/2022 11:59 PM CDT Hospital Encounter [facility] [address] [place] [address] Unknown, Provider Discharge Disposition: Home or Self Care Social [...] st Contact Info) Description 06/02/2024 10:30 AM BIZTALK ARCHITECT Office Visit [facility] - Orthopedic Surgery [address] [place] [phone] Kevin Britton MD 1031 [facility] [place] 280 [place] [address] 08/10/2024 1:00 PM CDT Office Visit [facility] - BLEACHER PULP [address] [facility] 400 [place] [phone] Daja Mir MD [address] [place] [address] 10/26/2024 1:00 PM CDT Office Visit [facility] - Hematology/Oncology [address] [place] [phone] Elizabeth Garcia MD 8523 [facility] 3 [place] [address] 01/17/2025 12:30 PM CDT [place] [facility] [place] [address] [place] [phone] 01/17/2025 1:00 PM CDT Office Visit [facility] - GI [address] [place] [phone] Marlena Mccoy Pedro, SUPERVISOR TUMBLING AND ROLLING-MARKETING SERVICES COORDINATOR [address] [place] [address] documented as of this encounter Goals Goal Patient Goal Type Associated Problems Recent Progress Patient-Stated? Author Mobility General On track( 9:08 AM BIZTALK ARCHITECT) No Tika Pope, SABRINA Note: Expected end date: 05/05/2019 The goal is to maintain or improve your mobility at the optimum level for you. Interventions: Medication Management General On track( 9:48 AM CDT) No Saba Bailey RN [...] Comments MAMMO LEFT DIAGNOSTIC W SHAQUILLE Routine 10/28/2022 3:33 PM CDT History of breast cancer documented in this encounter Results * (ABNORMAL) MAMMO LEFT DIAGNOSTIC W SHAQU[place] (10/28/2022 3:33 PM CDT) Anatomical Region Laterality Modality Breast Left Mammography 10/28/2022 3:01 PM CDT Impressions 10/28/2022 4:34 PM CDT : Grouped microcalcifications centered in the patient's lumpectomy bed likely represent early calcifying fat necrosis and are probably benign. RECOMMENDATION: Follow-up left diagnostic mammogram in 6 months. The above findings and recommendation were discussed at length with the patient by Dr. Kilgore at the conclusion of her examination. OVERALL ASSESSMENT: ??BI-RADS CATEGORY 3: PROBABLY BENIGN. > Interpreting Provider: Peg Kilgore MD on 10/28/2022 4:34 PM Narrative 10/28/2022 4:34 PM CDT EXAMINATION: DIGITAL MAMMO LEFT DIAGNOSTIC W SHAQUILLE DATE: ??10/28/2022 HISTORY: ??57-year-old female called back from annual screening mammogram for further evaluation of microcalcifications associated with prior lumpectomy. COMPARISON: Comparison is made to prior mammograms dating back to 07/06/2015 including most recent screening mammogram of 10/21/2022. TECHNIQUE: ??Left synthetic 2-D (C-view) digital mammogram images and left digital breast tomosynthesis were obtained and reviewed in the craniocaudal and mediolateral oblique projections. ??CC and true lateral magnification views, a full-field true lateral view with 3-D tomosynthesis and CC and MLO spot compression views with 3-D tomosynthesis were obtained of the left breast.. A total of 6 images acquired. Scar marker was placed on the left breast. Computer-aided detection (CAD) was utilized. ?? BREAST PARENCHYMAL COMPOSITION: Category B: There are scattered areas of fibroglandular density. FINDINGS: ?? Grouped microcalcifications persist within the patient's lumpectomy bed, many of which are coarse in morphology and the majority of which appear associated with the peripheral wall of a 1 cm internal fat density mass, consistent with developing postsurgical fat necrosis. A few additional punctate and amorphous microcalcifications are also present and appear to localize within the center of the area of fat necrosis on 3-D spot compression views. The microcalcifications measures up to 1.2 cm in extent. Postsurgical changes at the patient's lumpectomy site are otherwise unchanged. Araseli Byers MD MAMMO ORDERABLES documented in this encounter Visit Diagnoses Diagnosis History of breast cancer Personal history of malignant neoplasm of breast documented in this encounter Care Teams Wellness Educator Relationship Specialty Start Date End Date Willis Veras MD [address] [place] [address] PCP - General 05/03/21 Cole Ku MD [address] OF [facility] [place] [address] General Surgery 11/10/20 documented as of this encounter
--- OUTSIDE RECORDS SUMMARY | 2024-04-25 13:58 | XMS_ITS | Encounter Summary ---
Author Organization [facility] Address [address] [facility] [place] [address] Care Team Providers Care Furniture Mover Name Role Phone Cole Ku MD Unavailable Willis Veras MD Primary Care Provider Reason for Visit * Auth/Cert (Routine) Specialty Diagnoses / Procedures Referred By Americo t Referred To Contact Diagnoses Diagnosis unknown Diagnosis unknown [R69] Procedures NJ HYSTEROSCOPY,W/ENDO BX HYSTEROSCOPY WITH DILATION & CURETTAGE Referral ID Status Reason Start Date Expiration Date Visits Re quested Visits Authorized [id number] 1 1 Encounter Details Date Type Department Care Team (Latest Contact Info) Description 01/07/2023 5:18 AM CDT - 01/07/2023 9:54 AM CDT Hospital Encounter [facility] [address] [place] [address] Cole Garcia MD [address] [address] Surgery General Discharge Disposition: Home or Self [...] Sign Reading Time Taken Comments Blood Pressure 156/92 01/07/2023 9:26 AM CDT Pulse 61 01/07/2023 9:26 AM CDT Temperature 35.7 ??C (96.3 ??F) 01/07/2023 8:55 AM CD T Respiratory Rate 18 01/07/2023 9:26 AM CDT Oxygen Saturation 98% 01/07/2023 9:26 AM CDT Inhaled Oxygen Concentration - - [...] may take some Ibuprofen as prescribed or [id number] to help with cramping pain. Please call [...] 11/22/2022 01/15/2023 Cholecalciferol (vitamin D3) 1.25 MG (11923 UT) capsule Take 1 (one) capsule by mouth Once per week 01/07/2023 04/09/2023 ibuprofen (Motrin) 600 MG tablet Take 1 (one) tablet by mouth every 6 hours as needed for Pain 30 tablet 1 01/07/2023 01/17/2023 documented as of this encounter H&P Notes * Thomas Valencia G - 12/26/2022 10:49 AM CDT Machine Shop Lead Man Onc Pre Op History & Physical Per [...] without evidence of hyperplasia or malignancy 07/25/22 ([facility] pathology review) Uterus, endometrium, biopsy - Focal [...] placement of IUD Surgeon: COLE GARCIA MD Insolvency Consultant: Casey Loja PGY3 Type of anesthesia: General [...] st Contact Info) Description 06/02/2024 10:30 AM SENIOR EMBEDDED SOFTWARE ENGINEER Office Visit [facility] - Orthopedic Surgery [address] [place] [phone] Kevin Britton MD 1031 [facility] 280 [place] [address] 08/10/2024 1:00 PM CDT Office Visit [facility] - JACKAROO 1031 [facility] 400 [place] [phone] Daja Mir MD [address] [place] [address] 10/26/2024 1:00 PM CDT Office Visit [facility] - Hematology/Oncology [address] [place] [phone] Elizabeth Garcia MD 0430 [facility] 3 [place] [address] 01/17/2025 12:30 PM CDT Procedure visit [facility] [place] [address] [place] [address], [place] [phone] 01/17/2025 1:00 PM CDT Office Visit [facility] - [place] [address] [facility], [place] [phone] Marlena Mccoy, CANDY WAFFLE ASSEMBLER-METER REPAIRER [address] [place] [address] [facility] [place] [address] documented as of this encounter Goals Goal Patient Goal Type Associated Problems Recent Progress Patient-Stated? Author Mobility General On track( 021 9:08 AM SENIOR EMBEDDED SOFTWARE ENGINEER) No Tika Pope, RN Note: Expected end [...] Routine 01/07/2023 8:05 AM CDT Diagnosis unknown NJ HYSTEROSCOPY,W/ENDO BX 01/07/2023 7:13 AM CDT Diagnosis unknown Special Needs NEEDS MIRENA IUD - ORDERED FROM ALYSA) 12/23 TM TYPE + SCREEN PANEL STAT [...] Case Report Surgical Pathology Report ? Case: [id number] ? Authorizing Provider: ??Cole Garcia MD ?Collected: ? 01/07/2023 08:05 AM ? Ordering Location: ? [facility] ? Received: ?01/07/2023 08:45 AM ? Pathologist: ? Maxine Talbert MD ? Specimen: ?Endocervix Curettings, Endometreal Curettings ? 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 Per [facility], she has a history of breast cancer and recent diagnosis of endometrial intraepithelial neoplasia. She had been on Tamoxifen for six years prior to her diagnosis. Patient had two episodes of postmenopausal bleeding while on Tamoxifen. Operative procedure: endometrial curettage, intrauterine device placement. 01/08/2023 8:36 AM [facility] Gross Description The specimen is identified with patient's name and date of . Received in formalin, specimen ? A, endometrial curetting? is an aggregate of pink-dumont tissues and blood clot, 2.5 x 1.5 x 0.3 cm. Entirely submitted in cassette A1. LJ 01/08/2023 8:36 AM [facility] Microscopic Description Microscopic examination substantiates the above diagnosis. 01/08/2023 8:36 AM [facility] Pathologist Location at [facility] 01/08/2023 8:36 AM [facility] Disclaimer All histochemical and/or immunohistochemical results are interpreted with controls that demonstrate appropriate staining reactions before reporting results. Note on use of immunocytochemistry reagents: This test was developed and its performance characteristic determined by [facility], Department of Laboratory Medicine. It has not [...] be interpreted with caution. 01/08/2023 8:36 AM [facility] Embedded Images 01/08/2023 8:36 AM [facility] Pathology/Cytolo gy CURETTINGS / Unknown 01/07/2023 8:05 AM CDT 01/07/2023 8:45 AM CDT Comment:Pre-op diagnosis: Diagnosis unknown [R69] Cole Garcia MD LAB - PATHOLOGY/CYTO LOGY ORDERABLES Performing Organization Address City/[facility]/ZIP Co de Phone Number [facility] [address] [place] [phone] * (ABNORMAL) BASIC METABOLIC PANEL (CALCIUM TOTAL) (01/07/2023 6:08 AM CDT) Glucose 95 70 - 105 mg/dL 01/07/2023 6:36 AM CDT [facility] Sodium 141 136 - 145 mmol/L 01/07/2023 6:36 AM CDT [facility] Potassium 3.9 3.5 - 5.1 mmol/L 01/07/2023 6:36 AM CDT [facility] Chloride 110(H) 98 - 107 mmol/L 01/07/2023 6:36 AM CDT [facility] CO2 22 22 - 29 mmol/L 01/07/2023 6:36 AM CDT [facility] Calcium 9.7 8.4 - 10.4 mg/dL 01/07/2023 6:36 AM CDT [facility] Anion Gap 9 6 - 16 mmol/L 01/07/2023 6:36 AM CDT [facility] BUN 15 7 - 26 mg/dL 01/07/2023 6:36 AM CDT [facility] Creatinine 0.88 0.57 - 1.11 mg/dL 01/07/2023 6:36 AM CDT [facility] eGFR by CKD-EPI 76(L) >=90 mL/min/1.7 3 m2 01/07/2023 6:36 AM CDT [facility] Blood BLOOD SPECIMEN / Unknown Venipuncture / Unknown 01/07/2023 6:08 AM CDT 01/07/2023 6:16 AM CDT Sweetie Nugent DO LAB - CHEMISTRY ORD ERABLES [facility] [address] [place] [address] * (ABNORMAL) CBC W AUTO DIFFERENTIAL (01/07/2023 6:08 AM CDT) [facility] WBC 5.0 4.4 - 10.7 x10E9/L 01/07/2023 6:31 AM CDT [facility] WBC Corrected 01/07/2023 6:31 AM CDT [facility] RBC 4.04 3.80 - 5.20 x10E12/L 01/07/2023 6:31 AM CDT [facility] Hemoglobin 12.4 12.0 - 15.6 gm/dL 01/07/2023 6:31 AM CDT [facility] Hematocrit 37.3 35.9 - 45.5 % 01/07/2023 6:31 AM CDT [facility] MCV 92.3 80.7 - 98.3 fl 01/07/2023 6:31 AM CDT [facility] MCH 30.7 26.7 - 34.0 pg 01/07/2023 6:31 AM CDT [facility] MCHC 33.2 30.8 - 35.9 gm/dL 01/07/2023 6:31 AM CDT [facility] Platelet Count 144(L) 153 - 416 x10E9/L 01/07/2023 6:31 AM CDT [facility] RDW-CV 12.4 12.1 - 14.9 % 01/07/2023 6:31 AM CDT [facility] MPV 11.8 9.4 - 12.9 fl 01/07/2023 6:31 AM CDT [facility] Neutrophils % 41.8(L) 44.0 - 73.0 % 01/07/2023 6:31 AM CDT [facility] Lymphocytes % 47.7(H) 20.0 - 43.0 % 01/07/2023 6:31 AM CDT [facility] Monocytes % 7.5 5.0 - 13.0 % 01/07/2023 6:31 AM CDT [facility] Eosinophils % 2.4 0.0 - 6.0 % 01/07/2023 6:31 AM CDT [facility] Basophils % 0.4 0.0 - 2.0 % 01/07/2023 6:31 AM CDT [facility] Immature Granulocytes 0.2 0 - 1 % 01/07/2023 6:31 AM CDT [facility] Neutrophil Absolute 2.07 2.01 - 7.14 x10E9/L 01/07/2023 6:31 AM CDT [facility] Lymphocytes Absolute 2.36 1.07 - 3.94 x10E9/L 01/07/2023 6:31 AM CDT [facility] Monocytes Absolute 0.37 0.26 - 1.07 x10E9/L 01/07/2023 6:31 AM CDT [facility] Eosinophils Absolute 0.12 0 - 0.47 x10E9/L 01/07/2023 6:31 AM CDT [facility] Basophils Absolute 0.02 0 - 0.08 x10E9/L 01/07/2023 6:31 AM CDT [facility] Immature Granulocytes Absolute 0.01 0.00 - 0.06 x10E9/L 01/07/2023 6:31 AM CDT [facility] nRBC Auto 0 /100 WBC 01/07/2023 6:31 AM CDT [facility] Blood BLOOD SPECIMEN / Unknown Venipuncture / Unknown 01/07/2023 6:08 AM CDT 01/07/2023 6:16 AM CDT Sweetie Nugent DO LAB - HEMATOLOGY OR DERABLES Performing Organization Address [facility]/State/[facility] Co de Phone Number [facility] [address] [place], [place] [phone] * TYPE + SCREEN PANEL (01/07/2023 6:08 AM CDT) ABO Rh O POS 01/07/2023 6:50 AM CDT [facility] Comment:History checked. Antibody Screen NEG 6:50 AM CDT [facility] Blood Bank BLOOD SPECIMEN / Unknown Venipuncture / Unknown 01/07/2023 6:08 AM CDT 01/07/2023 6:11 AM CDT Cole Garcia MD LAB - BLOOD BANK ORD ERABLES [facility] [address] [place] [address], [facility] [phone] documented in this encounter Visit Diagnoses Diagnosis [...] Given 01/07/2023 6:13 AM CDT 1,000 mg fentaNYL (PF) (Sublimaze) [...] on Fri01/07/23 at 0900, Last dose on Kaylin 01/09/23 at 2100, Patient has a patch to [...] of normal saline every 8 hours., Pre-op 599 (Due) acetaminophen (Tylenol) tablet 1,000 mg (COMPLETED) [...] must be documented in the MAR., Pre-op 06 ($ Given - Prov ider: Brenda Salcido [...] must be documented in the MAR., Post-op 899 (Due) insulin regular human (HumuLIN R; NovoLIN [...] 0613 ($ Given - Prov ider: Brenda Salcido, SABRINA) scopolamine (Transderm-Scop) 1 patch(Linked Group 2) 1 [...] on Fri01/07/23 at 0900, Last dose on Kaylin 01/09/23 at 2100, Patient has a patch to [...] Post-op documented in this encounter Care Teams Furniture Mover Relationship Specialty Start Date End Date Willis Veras MD [address] [place] [address] PCP - General 05/03/21 Cole Ku MD [address] OF [facility] [place] [address] General Surgery 11/10/20 documented as of this encounter
--- OUTSIDE RECORDS SUMMARY | 2024-04-25 13:58 | XMS_ITS | Encounter Summary ---
Author Organization [facility] Address [address] [place] [address] Care Team Providers Care Laborer Airport Maintenance Name Role Phone Cole Ku MD Unavailable Willis Veras MD Primary Care Provider Encounter Details Date Type Department Care Team (Latest Contact Info) Description 10/28/2022 Travel Social History Tobacco Use Types Packs/Day [...] st Contact Info) Description 06/02/2024 10:30 AM YARDING ENGINEER Office Visit [facility] - Orthopedic Surgery [address] [place] [phone] Kevin Britton MD 1031 [facility] 280 [place] [address] 08/10/2024 1:00 PM CDT Office Visit [facility] - REGISTER OF WILLS 1031 [facility] 400 [place] [phone] Daja Mir MD [address] [place] [address] 10/26/2024 1:00 PM CDT Office Visit [facility] - Hematology/Oncology [address] [place] [phone] Elizabeth Garcia MD [address] [facility] 3 [place] [address] 01/17/2025 12:30 PM CDT Procedure visit [facility] - [place] [address] [place] [phone] 01/17/2025 1:00 PM CDT Office Visit [facility] - [place] [address] [place] [phone] Marlena Mccoy, CABLE TOOL DRILLER-MANAGER QUALITY COMPLIANCE [address] [place] [address] [facility] [place] [address] documented as of this encounter Goals Goal Patient Goal Type Associated Problems Recent Progress Patient-Stated? Author Mobility General On track( 021 9:08 AM YARDING ENGINEER) No Tika Pope, SABRINA Note: Expected [...] on filedocumented in this encounter Care Teams Laborer Airport Maintenance Relationship Specialty Start Date End Date Willis Veras MD [address] [place] [address] PCP - General 05/03/21 Cole Ku MD [address] [place] [address] General Surgery 11/10/20 documented as of this encounter
--- OUTSIDE RECORDS SUMMARY | 2024-04-25 13:58 | XMS_ITS | Encounter Summary ---
Author Organization [facility] Address [address] [address] Care Team Providers Care Maternity Floor Supervisor Name Role Phone Cole Ku MD Unavailable Willis Veras MD Primary Care Provider Reason for Referral * Radiology Services (Routine) - Closed Specialty Diagnoses / Procedures Referred By Contac t Referred To Contact Mammography Diagnoses History of breast cancer Procedures MAMMO LEFT DIAGNOSTIC W Araseli Hale MD [address] [place] [address] [facility] Op [address] [place] [address] Referral ID Status Reason Start Date Expiration Date Visits Re quested Visits Authorized [id number] Closed 10/21/2022 10/21/2023 1 1 Reason for Visit * Reason Comments Follow-up Encounter Details Date Type Department Care Team ([facility] Contact Info) Description 10/21/2022 12:40 PM CDT Office Visit [facility] - Hematology/Oncology [address] [place] [address] Araseli Byers MD [address] [place] [address] History of breast cancer (Primary Dx) Social History Tobacco Use Types [...] Sign Reading Time Taken Comments Blood Pressure 121/76 10/21/2022 12:37 PM CDT Pulse 64 10/21/2022 12:37 PM CDT Temperature 36.5 ??C (97.7 ??F) 10/21/2022 1 2:37 PM CDT Respiratory Rate - - Oxygen Saturation 100% 10/21/2022 12: 37 PM CDT Inhaled Oxygen Concentration - - Weight 95.2 kg (209 lb 12.8 oz) 023 12:37 PM CDT Height - - Body Mass Index 32.86 10/16/2022 5:56 AM CDT documented in this [...] as of this encounter Progress Notes * Araseli Byers MD - 10/21/2022 12:54 PM CDT Oncology/ Hematology Val[place]: Main Diagnosis: Stage I left breast cancer 2015.. pT1N0.. Active Treatment: Surveillance . Prior treatment: Left lumpectomy. September 2015. Adjuvant radiation Molecular Feature: ER/AK positive and HER2 negative. Oncotype DX recurrence score 17 Tamoxifen. Stopped 08/2022 Interval History: Milagros Torres was last seen in clinic 7 months ago. - She has ER/AK positive HER2 negative left breast cancer 2015. Stage I. Oncotype DX recurrence score 17. No adjuvant chemotherapy. - Had been on tamoxifen since October 2015. -In July 2022, pelvic examination showing vaginal bleed. -Stopped 08/2022 due to the vaginal bleeding. 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 Therefore the tamoxifen was stopped afterwards. -Dr. Cabral. Did D&C on October 16, 2022. A progesterone IUD was placed. Pathology study shown Inactive endometrium and benign squamous epithelium with detached fragments of squamous morules, without evidence of hyperplasia or malignancy clinically, patient has no vaginal bleed. Performance Status: ECOG 0 Current Medications: Current Outpatient Medications Medication Sig Dispense [...] daily ??? Vitamin D3, cholecalciferol, 50 MCG (1999 UT) tablet Take 1 tablet by mouth once daily 90 tablet 2 No current facility-administered medications for this visit. Allergies: Patient has no known allergies. Past Medical History: Past Medical History: Diagnosis Date ??? Arthropathy ??? Breast cancer (CMS/HCC) ??? CKD (chronic kidney disease) ??? Depression with anxiety ??? Disorder of liver NAFLD ??? Gallstones ??? Hypertension required meds when getting radiation for breast CA. No longer requiring meds ??? Malignancy (CMS/HCC) breast left ??? Valvular heart disease heart murmur Review of System: 13 organ systems reviewed. Unremarkable, other than what is commented in the interval history. Physical Examination: BP 121/76 (BP SITE: LEFT ARM, BP POSITION: SITTING, BP CUFF SIZE: 11) Pulse 64 Temp 97.7 ??F (36.5 ??C) (Oral) Wt 95.2 kg (209 lb 12.8 oz) SpO2 100% -GENERAL: Alert and oriented x 3. No acute distress. Well-nourished.. Use the cane to walk. -HEENT: EOMI. Scleral anicteric. Oropharynx clear. Moist mucous membranes. No thyromegaly. -LYMPHONOTES: No cervical, axillary , inguinal lymphadenopathy. -LUNG: Clear to auscultation bilaterally. No wheeze or crackles. no accessory muscle use. -CARDIOVASCULAR: Regular rate and rhyme. No murmur. No JVD. -ABDOMEN: Soft. No tender. No distention. Bowl sound active. No palpable hepatosplenomegaly. No palpable masses. -EXTREMITIES: No edema. -SKIN: Warm. No rash or lesions. -NRUROLOGIC: No focal neurological deficit. -PSYCHIATRIC: Cooperative. Appropriate mood and affect Lab: Recent Labs Component Name 10/21/22 1203 03/20/22 1036 WBC 5.8 5.1 HGB 12.0 11.2* HCT 35.9 34.6* MCV 89.8 93.5 Recent Labs Component Name 10/21/22 1203 03/20/22 1036 CALCIUM 9.3 9.3 PROT 7.1 6.9 ALB 3.7 3.6 Recent Labs Component Name 10/21/22 1203 03/20/22 1036 NA 139 139 CL 107 109* CO2 27 21* BUN 16 15 CREATININE 0.96 1.07* Recent Labs Component Name 10/21/22 1203 03/20/22 1036 01/22/22 1015 08/06/21 1049 PROT 7.1 6.9 - 7.3 ALB 3.7 3.6 - 3.7 ALKPHOS 77 87 67 71 AST 102* 36* 51* 30 ALT 80* 21 36 24 TBILI 0.3 0.3 - 0.4 Recent Labs Component Name 05/12/20 1028 PT 12.6 INR 1.0 No results for input(s): CKTOTAL, CKMBCK2, TROPONINI in the last 86548 hours. No results found for: PSA No results found for: CEA No results found for: LDH Imaging: Bilateral screening mammography today: IMPRESSION: 1. Post lumpectomy change in the upper central left breast with coarse heterogeneous and amorphous microcalcifications developing at the lumpectomy site may represent early/developing postsurgical fat necrosis but are indeterminant. ?? 2. No mammographic evidence of right breast malignancy. Assessment and Plan: 1. Stage I, node-negative, ER/AK positive HER2 negative left breast cancer. Oncotype DX recurrence score 17. 7 years since the lumpectomy. Off tamoxifen. 2. Today's screening mammography showing suspicious findings at the left breast. The patient will follow-up with radiology for diagnostic mammography and a possible biopsy afterwards. Since the patient has not follow-up with breast surgeon in last couple of years, we will refer her to follow-up with Dr. Love if the biopsy abnormal. 3. Abnormal uterus endometrium biopsy in August. Tamoxifen stopped. D&C couple weeks ago prevention normal. The patient had IUD placement. She will continue follow-up with Dr. Cabral. 4. If there is no issue from the diagnostic mammography, I schedule patient be back again in 1 year. Araseli Byers MD Hematology/Oncology Attending documented in this encounter Plan of Treatment Upcoming Encounters Date Type Department Care Team (Late st Contact Info) Description 06/02/2024 10:30 AM MATH TEACHER Office Visit [facility] - Orthopedic Surgery [address] [place] [phone] Kevin Britton MD 1031 [facility] 280 [place] [address] 08/10/2024 1:00 PM CDT Office Visit [facility] - TOOL MACHINIST [address] [facility] [address] [place] [address] Daja Mir MD 4443 [facility] [place] [address] 10/26/2024 1:00 PM CDT Office Visit [facility] - Hematology/Oncology [address] [place] [phone] Elizabeth Garcia MD 3660 [facility] 3 [place] [address] 01/17/2025 12:30 PM CDT Procedure [place] [facility] [place] [address] [place] [address], [place] [address] 01/17/2025 1:00 PM CDT Office Visit [facility] - GI [address] [place] [address], [place] [phone] Marlena Mccoy, COMMERCIAL BAKING TEACHER-INSURANCE RISK ANALYST [address] [place] [address] [facility] [place] [address] documented as of this encounter Goals Goal Patient Goal Type Associated Problems Recent Progress Patient-Stated? Author Mobility General On track( 021 9:08 AM MATH TEACHER) No Tika Pope, SABRINA Note: Expected [...] Personal history of malignant neoplasm of breast History of breast cancer Personal history of malignant neoplasm of breast documented in this encounter Care Teams Maternity Floor Supervisor Relationship Specialty Start Date End Date Willis Veras MD [address] [place] [address] PCP - General 05/03/21 Cole Ku MD [address] OF [place] [address] General Surgery 11/10/20 documented as of this encounter
--- OUTSIDE RECORDS SUMMARY | 2024-04-25 13:59 | XMS_ITS | Encounter Summary ---
Author Organization [facility] Address [address] [facility] [place] [address] Care Team Providers Care Conference Manager Name Role Phone Cole Ku MD Unavailable Willis Veras MD Primary Care Provider Reason for Visit * Reason Onset Date Comments Contraceptive management 10/09/2022 Discuss Surgery 10/09/2022 Encounter Details Date Type Department Care Team (Late st Contact Info) Description 10/09/2022 Telephone [facility] - FINISH SAW OPERATOR [address] [facility] [address] [place] [address] Cole Garcia MD 1033 [facility] 400 [place] [address] Contraceptive management; Discuss Surgery Social History Tobacco Use Types Packs/Day Years [...] encounter Miscellaneous Notes * Telephone Encounter - Albina Blount - 10/09/2022 10:[address] Radha Moe IUD is needed for insertion. Pharmacy verified understanding. * Telephone Encounter - Linda Tripp - 10/09/2022 10:21 AM CDT Pharmacy wants to know if pt can have Mirena control installed. documented in this encounter Plan of Treatment Upcoming Encounters Date Type Department Care Team (Late st Contact Info) Description 06/02/2024 10:30 AM ANIMAL SCIENTIST Office Visit [facility] - Orthopedic Surgery [address] [place] [address] Kevin Britton MD [address] [facility] 280 [place] [address] 08/10/2024 1:00 PM CDT Office Visit [facility] - FINISH SAW OPERATOR 1031 [facility] 400 [place] [address] Daja Mir MD [address] [place] [address] 10/26/2024 1:00 PM CDT Office Visit [facility] - Hematology/Oncology [address] [place] [phone] Elizabeth Garcia MD 3661 [facility] 3 [place] [address] 01/17/2025 12:30 PM CDT Procedure visit [facility] [address] [place] [address], [place] [phone] 01/17/2025 1:00 PM CDT Office Visit [facility] - GI [address] [place] [address], [place] [address] Marlena Mccoy, MIXER BLENDER-DIESEL STATIONARY ENGINEER [address] [place] [address] [facility] [place] [address] documented as of this encounter Goals Goal Patient Goal Type Associated Problems Recent Progress Patient-Stated? Author Mobility General On track( 021 9:08 AM ANIMAL SCIENTIST) No Tika Pope, RN Note: Expected end [...] on filedocumented in this encounter Care Teams Conference Manager Relationship Specialty Start Date End Date Willis Veras MD [address] [place] [address] PCP - General 05/03/21 Cole Ku MD [address] OF [facility] [place] [address] General Surgery 11/10/20 documented as of this encounter
--- OUTSIDE RECORDS SUMMARY | 2024-04-25 14:00 | XMS_ITS | Encounter Summary ---
Author Organization [facility] Address [address] [facility] [place] [address] Care Team Providers Care Laborer Brush Clearing Name Role Phone Cole Ku MD Unavailable Willis Veras MD Primary Care Provider Reason for Visit * Reason Onset Date Comments Record Request 08/14/2022 Encounter Details Date Type Department Care Team (Late st Contact Info) Description 08/14/2022 Telephone [facility] [address] [place] [phone] Cole Garcia MD 1031 [facility] 400 [place] [address] Record Request Social History Tobacco Use Types Packs/Day [...] Telephone Encounter - Daja Britt RN - 08/16/2022 11:30 AM CDT Consult note by Dr. Garcia faxed to [facility] as requested. Faxed confirmationreceived. * Telephone Encounter - Daja Britt RN - 08/14/2022 2:48 PM CDT Obtained info for [employer] rep servicing [facility]. Lele Garcia [phone] Will fax consult notes to office once completed. * Telephone Encounter - Daja Britt RN - 08/14/2022 2:31 PM CDT LM with nurse to call back. Direct number given. Attempting to obtain pathology slides from [employer]. * Telephone Encounter - Linda Tripp - 08/14/2022 1:29 PM CDT [facility] called and needed appointment notes faxed to them. Fax #: [phone] documented in this encounter Plan of Treatment Upcoming Encounters Date Type Department Care Team (Late st Contact Info) Description 06/02/2024 10:30 AM INSURANCE SALESMAN Office Visit [facility] - Orthopedic Surgery [address] [place] [phone] Kevin Britton MD 1031 [facility] 280 [place] [address] 08/10/2024 1:00 PM CDT Office Visit [facility] - REHAB OFFICE COORDINATOR 1031 [facility] 400 [place] [address] Daja Mir MD 5708 [facility] [place] [address] 10/26/2024 1:00 PM CDT Office Visit [facility] - Hematology/Oncology [address] [place] [address] Elizabeth Garcia MD 3665 [facility] 3 [place] [address] 01/17/2025 12:30 PM CDT Procedure visit [facility] [address] [place] [phone] 01/17/2025 1:00 PM CDT Office Visit [facility] [place] [address] [place] [phone] Marlena Mccoy, WARDROBE SUPERVISOR-FACILITIES MANAGER [address] [place] [address] [facility] [place] [address] documented as of this encounter Goals Goal Patient Goal Type Associated Problems Recent Progress Patient-Stated? Author Mobility General On track( 021 9:08 AM INSURANCE SALESMAN) No Tika Pope, RN Note: Expected end [...] filedocumented in this encounter Care Teams Laborer Brush Clearing Relationship Specialty Start Date End Date Willis Veras MD [address] [place] [address] PCP - General 05/03/21 Cole Ku MD [address] OF [facility] [address] General Surgery 11/10/20 documented as of this encounter
--- OUTSIDE RECORDS SUMMARY | 2024-04-25 14:00 | XMS_ITS | Encounter Summary ---
Author Organization [facility] Address [address] [facility] [place] [address] Care Team Providers Care Sales Broker Name Role Phone Cole Ku MD Unavailable Willis Veras MD Primary Care Provider Encounter Details Date Type Department Care Team (Latest Contact Info) Description 08/22/2022 1:22 PM CDT - 08/22/2022 11:59 PM CDT Hospital Encounter [facility] [address] [place], [place] [phone] Cole Garcia MD 1031 [facility] 400 [place], [place] [phone] Discharge Disposition: Home or Self Care Social [...] on file Sexual Orientation Not on file COVID-19 Exposure Response Date Recorded In the last 10 days, have yo u been in contact with someone who was confirmed or suspected to have Coronavirus/COVID-19? Unable to assess 08/22/2022 1:21 PM CDT documented as of this encounter Functional Status [...] once daily 90 tablet 2 03/23/2019 acetaminophen (TYLENOL) 500 MG tablet Take 1 (one) tablet by mouth every 6 hours as needed for Fever or Pain Maximum allowable Acetaminophen amount = 4 Grams (4000 mg) / 24 hours. 40 tablet 02/01/2022 3 celecoxib (CeleBREX) 50 MG capsuleIndications:S/P TKR (total knee replacement), left,Primary osteoarthritis of left knee Take 2 (two) capsules by mouth once daily 60 capsule 08/22/2022 3 HYDROcodone-acetaminophen (Wantagh) 5-325 MG tabletIndications:S/P TKR (total knee replacement), left Take 1 (one) tablet by mouth every 8 hours as needed for Pain 21 tablet 04/23/2022 3 tamoxifen (Nolvadex) 20 MG tabletIndications:Encount er for monitoring tamoxifen therapy,History of breast cancer Take 1 (one) tablet by mouth once daily 90 tablet 3 03/20/2022 3 documented as of this encounter Plan of Treatment Upcoming Encounters Date Type Department Care Team (Late st Contact Info) Description 06/02/2024 10:30 AM BARREL CHARRER Office Visit [facility] - Orthopedic Surgery [address] [place] [phone] Kevin Britton MD 1031 [facility] 280 [place] [address] 08/10/2024 1:00 PM CDT Office Visit [facility] - BARREL BRIDGE ASSEMBLER [address] [facility] 400 [place] [address] Daja Mir MD 5705 [facility] [place] [address] 10/26/2024 1:00 PM CDT Office Visit [facility] - Hematology/Oncology [address] [place] [phone] Elizabeth Garcia MD 3665 [facility] 3 [place] [address] 01/17/2025 12:30 PM CDT Procedure visit [facility] - GI [address] [place] [phone] 01/17/2025 1:00 PM CDT Office Visit [facility] - GI [address] [place] [phone] Marlena Mccoy, FUSE ASSEMBLER-DISPATCHER STREET DEPARTMENT [address] [place] [address] [facility] [place] [address] documented as of this encounter Goals Goal Patient Goal Type Associated Problems Recent Progress Patient-Stated? Author Mobility General On track( 021 9:08 AM BARREL CHARRER) No Tika Pope RN Note: Expected end date: 05/05/2019 The [...] Procedure Name Priority Date/Time Associated Diagnosis Comments GROSS EXAM PATHOLOGY (STL) Routine 08/22/2022 1:36 PM CDT Diagnosis unknown documented in this encounter Results * GROSS EXAM PATHOLOGY (STL) (08/22/2022 1:36 PM CDT) Case Report Surgical Pathology Report ? Case: [id number] ? Authorizing Provider: ??Cole Garcia MD ?Collected: ? 08/22/2022 01:36 PM ? Ordering Location: ? [facility] ?Received: ?08/22/2022 01:38 PM ? Pathologist: ? Maxine Talbert MD ? Specimen: ?Slide Consultation, Received 1 slide labelled [id number] from [employer] ? for consult per Dr. Garcia's request. ? 08/22/2022 2:20 PM CDT [facility] Final Diagnosis CONSULT MATERIAL RECEIVED FROM [employer], [place], [place] (OSC [id number], 07/25/22) Uterus, endometrium, biopsy - Focal complex atypical hyperplasia/endome trial intraepithelial neoplasia 08/22/2022 2:20 PM CDT [facility] Clinical History The patient is a 57-year-old woman with history of breast cancer. 08/22/2022 2:20 PM CDT [facility] Microscopic Description Received for review is one slide labeled [id number], accompanied by the corresponding outside pathology report. Microscopic examination substantiates the above diagnosis. Dr. Gio Metcalf agrees. 08/22/2022 2:20 PM CDT [facility] Embedded Images 08/22/2022 2:20 PM CDT [facility] Pathology/Cytolo gy SURGICAL PATHOLOGY CONSULTATION AND REPORT ON REFERRED SLIDES PREPARED ELSEWHERE / Unknown 08/22/2022 1:36 PM CDT 08/22/2022 1:38 PM CDT Cole Garcia MD LAB - PATHOLOGY/CYTO LOGY ORDERABLES [facility] [address] [place] [address] documented in this encounter Visit Diagnoses Diagnosis Diagnosis unknown- Primary Other unknown and unspecified cause of morbidity or mortality documented in this encounter Care Teams Sales Broker Relationship Specialty Start Date End Date Willis Veras MD [address] [place] [address] PCP - General 05/03/21 Cole Ku MD [address] OF [facility] [place] [phone] General Surgery 11/10/20 documented as of this encounter
--- OUTSIDE RECORDS SUMMARY | 2024-04-25 14:00 | XMS_ITS | Encounter Summary ---
Author Organization [facility] Address [address] [place] [address] Care Team Providers Care Ball Thread Machine Tender Name Role Phone Cole Ku MD Unavailable Willis Veras MD Primary Care Provider Encounter Details Date Type Department Care Team (Late st Contact Info) Description 06/04/2022 Orders Only [facility] 1031 [facility] [place] [place] [phone] Kevin Britton MD 1031 [facility] 280 [place], [place] [phone] History of total left knee replacement Social [...] st Contact Info) Description 06/02/2024 10:30 AM LOGGING ASSISTANT Office Visit [facility] - Orthopedic Surgery [address] [place] [phone] Kevin Britton MD 1031 [facility] 280 [place] [address] 08/10/2024 1:00 PM CDT Office Visit [facility] - ELECTRICAL/INSTRUMENT TECHNICIAN 1031 [facility] 400 [place] [address] Daja Mir MD 1069 [facility] [place] [address] 10/26/2024 1:00 PM CDT Office Visit [facility] - Hematology/Oncology [address] [place] [phone] Elizabeth Garcia MD 366[address] [facility] 3 [place] [address] 01/17/2025 12:30 PM CDT Procedure visit [facility] - GI [address] [facility] [place] [address] 01/17/2025 1:00 PM CDT Office Visit [facility] - GI [address] [facility] [place] [address] Marlena Mccoy, CRACKING UNIT OPERATOR-SDV PILOT/NAVIGATOR/DDS OPERATOR 1225 [facility] [address]FL [facility] [place] [address] documented as of this encounter Goals Goal Patient Goal Type Associated Problems Recent Progress Patient-Stated? Author Mobility General On track( 9:08 AM LOGGING ASSISTANT) No Tika Pope, RN Note: Expected end [...] * XR KNEE LEFT 4VW OR MORE (06/05/2022 9:35 AM LOGGING ASSISTANT) Anatomical Region Laterality Modality Lower Extremity Radiographic Alena ging 06/05/2022 9:43 AM LOGGING ASSISTANT Narrative 06/05/2022 9:44 AM LOGGING ASSISTANT PROCEDURE: ??XR KNEE LEFT 4VW OR MORE, DATE/TIME OF EXAM: ??06/05/2022 9:36 AM, LOCATION ??[facility] INDICATION: Z96.652: Presence of left artificial knee joint Postoperative appearance of left knee arthroplasty is seen. There is no evidence of periprosthetic fracture or periprosthetic lucency. The soft tissues appear unremarkable. > Interpreting Provider: Bayron Álvarez MD on 06/05/2022 9:44 AM Procedure Note Bayron Álvarez MD - 06/05/2022 PROCEDURE: XR KNEE LEFT 4VW OR MORE, DATE/TIME OF EXAM: 06/05/2022 9:36AM, LOCATION [facility] INDICATION: Z96.652: Presence of left artificial knee joint Postoperative appearance of left knee arthroplasty is seen. There is no evidence of periprosthetic fracture or periprosthetic lucency. The soft tissues appear unremarkable. > Interpreting Provider: Bayron Álvarez MD on 06/05/2022 9:44 AM Kevin Britton MD DIAGNOSTIC IMAGING ORDERABLES documented in this encounter Visit Diagnoses Diagnosis History of total left knee replacement- Primary History of total left knee replacement documented in this encounter Care Teams Ball Thread Machine Tender Relationship Specialty Start Date End Date Willis Veras MD [address] [place] [address] PCP - General 05/03/21 Cole Ku MD [address] [place] [address] General Surgery 11/10/20 documented as of this encounter
--- OUTSIDE RECORDS SUMMARY | 2024-04-25 14:00 | XMS_ITS | Encounter Summary ---
Author Organization [facility] Health Address [address] [place] [address] Care Team Providers Care Program Consultant Name Role Phone Cole Ku MD Unavailable Willis Veras MD Primary Care Provider Encounter Details Date Type Department Care Team (Latest Contact Info) Description 08/22/2022 Travel Social History Tobacco Use Types Packs/Day [...] st Contact Info) Description 06/02/2024 10:30 AM UTILITY HELICOPTER REPAIRER Office Visit [facility] - [facility] [place] [address] Kevin Britton MD 1031 [facility] 280 [place] [address] 08/10/2024 1:00 PM CDT Office Visit [facility] - HOSE FINISHER 1031 [facility] 400 [place] [address] Daja Mir MD 2625 [place] [address] 10/26/2024 1:00 PM CDT Office Visit [facility] - Hematology/Oncology 3033 [place] [address] Elizabeth Garcia MD 8356 [facility] 3 [place] [address] 01/17/2025 12:30 PM CDT Procedure visit [facility] - [place] [address] [place] [phone] 01/17/2025 1:00 PM CDT [facility] [address] [place] [phone] Marlena Mccoy, ETL BI DEVELOPER-FLOW MACHINE OPERATOR [address] DIV [place] [address] documented as of this encounter Goals Goal Patient Goal Type Associated Problems Recent Progress Patient-Stated? Author Mobility General On track( 021 9:08 AM UTILITY HELICOPTER REPAIRER) No Tika Pope, RN Note: Expected [...] on filedocumented in this encounter Care Teams Program Consultant Relationship Specialty Start Date End Date Willis Veras MD 6616 [place] [address] PCP - General 05/03/21 Cole Ku MD [address] DIV [place] [address] General Surgery 11/10/20 documented as of this encounter
--- OUTSIDE RECORDS SUMMARY | 2024-04-25 14:00 | XMS_ITS | Encounter Summary ---
Author Organization [facility] Address [address] [place] [address] Care Team Providers Care Turpentine Distiller Name Role Phone Cole Ku MD Unavailable Willis Veras MD Primary Care Provider Reason for Visit * Reason Onset Date Comments Establish Care 08/08/2022 Encounter Details Date Type Department Care Team (Late st Contact Info) Description 08/08/2022 Telephone [facility] 1031 [facility] [address] [place], [place] [phone] Group, [facility] Airplane Cabin Attendant 1031 [facility] [address] [place], [place] [phone] Establish Care Social History Tobacco Use Types Packs/Day [...] encounter Miscellaneous Notes * Telephone Encounter - Leila Hidalgo - 08/09/2022 3:40 PM CDT Scheduled to Dr. Ramirez for August 12. * Telephone Encounter - My Pacheco - 08/08/2022 1:37 PM CDT NEW ONCOLOGY REFERRAL Physican referring the patient: Dr. Quiroz Reason / Diagnosis for referral: Marker on Biopsy If they are asking to see a specific onc dr, please specify: No specific Contact name of staff from referring providers office: Jannette Phone number of adjuster electrical contacts at office: [phone] Best contact number to reach patient: [phone] Pt / Physician office advised to fax records to [phone] Information for the patient being faxed over to the number above. documented in this encounter Plan of Treatment Upcoming Encounters Date Type Department Care Team (Late st Contact Info) Description 06/02/2024 10:30 AM CONSTRUCTION PROJECT COORDINATOR Office Visit [facility] - Orthopedic Surgery 1031 [place] [address] Kevin Britton MD [address] [address] 08/10/2024 1:00 PM CDT Office [facility] - RADIOLOGIC TECHNOLOGIST [address] [place] [address] Daja Mir MD 570 [facility] [place] [address] 10/26/2024 1:00 PM CDT Office [facility] - Hematology/Oncology 3655 [place] [address] Elizabeth Garcia MD 3666 [facility] 3 [place] [address] 01/17/2025 12:30 PM CDT Procedure [facility] - GI 1225 [facility], [place] [phone] 01/17/2025 1:00 PM CDT Office [facility] - GI 1225 [facility] [place] [phone] Marlena Mccoy, SHINGLE CUTTER-STOPBOARD ASSEMBLER [address] [place] [address] [facility] [place] [address] documented as of this encounter Goals Goal Patient Goal Type Associated Problems Recent Progress Patient-Stated? Author Mobility General On track( 021 9:08 AM CONSTRUCTION PROJECT COORDINATOR) No Tika Pope, RN Note: Expected [...] on filedocumented in this encounter Care Teams Turpentine Distiller Relationship Specialty Start Date End Date Willis Veras MD 6616 [place] [address] PCP - General 05/03/21 Cole Ku MD [address] OF [facility] [place] [address] General Surgery 11/10/20 documented as of this encounter
--- OUTSIDE RECORDS SUMMARY | 2024-04-25 14:00 | XMS_ITS | Encounter Summary ---
Author Organization [facility] Address [address] [facility] [place] [address] Care Team Providers Care Culture Media Laboratory Assistant Name Role Phone Cole Ku MD Unavailable Willis Veras MD Primary Care Provider Reason for Visit * Reason Onset Date Comments Results 08/23/2022 Encounter Details Date Type Department Care Team (Late st Contact Info) Description 08/23/2022 Telephone [facility] 1031 [place], [place] [phone] Cole Garcia MD 1031 [facility] 400 [place] [address] Results Social History Tobacco Use [...] Telephone Encounter - Cole Garcia MD - 08/23/2022 10:32 AM CDT Called patient to discuss results. Confirmed full name/ before reviewing PHI. 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 She was reassured that she does not have a diagnosis of cancer, but some treatment would be appropriate (medical vs surgical). Recommended rescheduling clinic appointment to earlier date since results were made available faster than anticipated. Patient had all questions answered and expressed understandingand agreement with the plan. documented in this encounter Plan of Treatment Upcoming Encounters Date Type Department Care Team (Late st Contact Info) Description 06/02/2024 10:30 AM GUM COOK Office Visit [facility] - Orthopedic Surgery 1031 [place] [address] Kevin Britton MD [address] [address] 08/10/2024 1:00 PM CDT Office Visit [facility] - RETAIL CHAIN STORE AREA SUPERVISOR 1031 [facility] [address] [place] [address] Daja Mir MD 3531 [facility] [place] [address] 10/26/2024 1:00 PM CDT Office Visit [facility] - Hematology/Oncology 3655 [place] [phone] Elizabeth Garcia MD [address] [facility] 3 [place] [address] 01/17/2025 12:30 PM CDT Procedure visit [facility] - GI 1225 [facility], [place] [address] 01/17/2025 1:00 PM CDT Office Visit [facility] [place] [address] [place] [address], [place] [phone] Marlena Mccoy, BUILDER OPERATOR-APPLIANCE PAINTER AND REFINISHER [address] [place] [address] [facility] [place] [address] documented as of this encounter Goals Goal Patient Goal Type Associated Problems Recent Progress Patient-Stated? Author Mobility General On track( 021 9:08 AM GUM COOK) No Tika Pope, RN Note: Expected end [...] on filedocumented in this encounter Care Teams Culture Media Laboratory Assistant Relationship Specialty Start Date End Date Willis Veras MD 6616 [place] [address] PCP - General 05/03/21 Cole Ku MD [address] OF [facility] [place] [address] General Surgery 11/10/20 documented as of this encounter
--- OUTSIDE RECORDS SUMMARY | 2024-04-25 14:00 | XMS_ITS | Encounter Summary ---
Author Organization [facility] Address [address] [place] [address] Care Team Providers Care Manager Supply Chain Name Role Phone Cole Ku MD Unavailable Willis Veras MD Primary Care Provider Reason for Visit * Reason Onset Date Comments MEDICATION REFILL 07/19/2022 Encounter Details Date Type Department Care Team (Late st Contact Info) Description 07/19/2022 Refill [facility] Orthopedic Surgery 1031 [place] [address] Danay Harrell, TRADING SPECIALIST REFILL Social History Tobacco Use Types Packs/Day [...] st Contact Info) Description 06/02/2024 10:30 AM CAB WORKER Office Visit [facility] [place] [address] Kevin Britton MD 1031 [facility] 280 [place] [address] 08/10/2024 1:00 PM CDT Office Visit [facility] - SHOE LAY OUT PLANNER 1031 [facility] 400 [place] [address] Daja Mir MD 8447 [place] [address] 10/26/2024 1:00 PM CDT Office Visit [facility] - Hematology/Oncology 8992 [place] [phone] Elizabeth Garcia MD 3092 [facility] 3 [place] [address] 01/17/2025 12:30 PM CDT Procedure visit [facility] GI [address] [place] [phone] 01/17/2025 1:00 PM CDT [facility] [address] [place] [phone] Marlena Mccoy, SPECIAL AGENT FBI-PART[employer] BUS DRIVER [address] DIV [place] [address] documented as of this encounter Goals Goal Patient Goal Type Associated Problems Recent Progress Patient-Stated? Author Mobility General On track( 021 9:08 AM CAB WORKER) No Tika Pope, RN Note: Expected [...] leg documented in this encounter Care Teams Manager Supply Chain Relationship Specialty Start Date End Date Willis Veras MD 6616 [place] [address] PCP - General 05/03/21 Cole Ku MD [address] [place] [address] General Surgery 11/10/20 documented as of this encounter
--- OUTSIDE RECORDS SUMMARY | 2024-04-25 14:00 | XMS_ITS | Encounter Summary ---
Author Organization [facility] Address [address] [facility] [place] [address] Care Team Providers Care Tobacco Sweeper Name Role Phone Cole Ku MD Unavailable Willis Veras MD Primary Care Provider Reason for Visit * Reason Onset Date Comments Future Appointment 08/23/2022 Encounter Details Date Type Department Care Team (Late st Contact Info) Description 08/23/2022 Telephone [facility] 1031 [place], [place] [phone] Cole Garcia MD 1031 [facility] 400 [place] [address] Future Appointment Social History Tobacco Use Types [...] Telephone Encounter - Daja Britt RN - 08/23/2022 11:22 AM CDT Pt appt with Dr. Garcia re-scheduled for an earlier appt. New appt on 09/02/2022 @ 10:30. Patient verbalizes understanding. documented in this encounter Plan of Treatment Upcoming Encounters Date Type Department Care Team (Late st Contact Info) Description 06/02/2024 10:30 AM HOSPITAL EDUCATOR Office Visit [facility] - Orthopedic Surgery [facility] [place] [phone] Kevin Britton MD 1031 [facility] 280 [place] [address] 08/10/2024 1:00 PM CDT Office Visit [facility] - INSTRUMENT TECHNICIAN APPRENTICE [address] [place] [address] 400 [place] [address] Daja Mir MD 9533 [facility] [place] [address] 10/26/2024 1:00 PM CDT Office Visit [facility] - Hematology/Oncology 3657 [place] [phone] Elizabeth Garcia MD 3665 [facility] 3 [place] [address] 01/17/2025 12:30 PM CDT Procedure visit [facility] [place] [address] [place] [address], [place] [address] 01/17/2025 1:00 PM CDT Office Visit [facility] - GI [address] [place] [address], [place] [phone] Marlena Mccoy, ELECTRIC RANGE ASSEMBLER-LOG FEEDER [address] [place] [address] [facility] [place] [address] documented as of this encounter Goals Goal Patient Goal Type Associated Problems Recent Progress Patient-Stated? Author Mobility General On track( 021 9:08 AM HOSPITAL EDUCATOR) No Tika Pope, RN Note: Expected end [...] on filedocumented in this encounter Care Teams Tobacco Sweeper Relationship Specialty Start Date End Date Willis Veras MD 6616 [place] [address] PCP - General 05/03/21 Cole Ku MD [address] OF [facility] [place] [place] [address] General Surgery 11/10/20 documented as of this encounter
--- OUTSIDE RECORDS SUMMARY | 2024-04-25 14:00 | XMS_ITS | Encounter Summary ---
Author Organization [facility] Address [address] [facility] [place] [address] Care Team Providers Care It Support Analyst Name Role Phone Cole Ku MD Unavailable Willis Veras MD Primary Care Provider Encounter Details Date Type Department Care Team (Latest Contact Info) Description 06/05/2022 9:30 AM LEGAL DOCUMENT ASSISTANT - 06/05/2022 11:[address] [facility] Hospital Encounter [facility] - Orthopedics [address] [place], [address] [place] [address] Kevin Britton MD [address] [place], [place] [phone] Discharge Disposition: Home or Self Care Social [...] daily with food 90 tablet 2 03/23/2019 losartan - hydroCHLOROthiazide (Hyzaar) 50-12.5 MG tablet [...] capsules by mouth once daily 60 capsule 05/15/2022 3 HYDROcodone-acetaminophen ([place]) 5-325 MG tabletIndications:S/P TKR (total knee replacement), [...] st Contact Info) Description 06/02/2024 10:30 AM LEGAL DOCUMENT ASSISTANT Office Visit [facility] - Orthopedic Surgery 1031 [place] [phone] Kevin Britton MD 1031 [facility] 280 [place] [address] 08/10/2024 1:00 PM CDT Office Visit [facility] - BIOMEDICAL ENGINEERING DIRECTOR 1031 [facility] 400 [place] [phone] Daja Mir MD 570 [facility] [place] [address] 10/26/2024 1:00 PM CDT Office Visit [facility] - Hematology/Oncology 3655 [place] [phone] Elizabeth Garcia MD 3665 [facility] 3 [place] [address] 01/17/2025 12:30 PM CDT Procedure visit [facility] [place] [address] [place] [phone] 01/17/2025 1:00 PM CDT Office Visit [facility] - GI [address] [place] [phone] Marlena Mccoy, DRY MILL WORKER-WELDER PLASTIC [address] [place] [address] [facility] [place] [address] documented as of this encounter Goals Goal Patient Goal Type Associated Problems Recent Progress Patient-Stated? Author Mobility General On track( 021 9:08 AM LEGAL DOCUMENT ASSISTANT) Tika Cunha, SABRINA Note: Expected end date: 05/05/2019 The goal is to maintain or improve your mobility at the optimum level for you. Interventions: Medication Management General On track( 022 9:48 AM CDT) Saba Barrera RN Note: Expected end date: Ongoing Interventions: Take all medications as prescribed Let your doctor know right away about any changes in your medications Make sure to request a refill of your medication at least one week prior to your last dose documented as of this encounter Procedures Procedure Name Priority Date/Time Associated Diagnosis Comments XR KNEE LEFT 4VW OR MORE Routine 06/05/2022 9:35 AM LEGAL DOCUMENT ASSISTANT History of total left knee replacement documented in this encounter Results * XR KNEE LEFT 4VW OR MORE (06/05/2022 9:35 AM LEGAL DOCUMENT ASSISTANT) Anatomical Region Laterality Modality Lower Extremity Radiographic Alena ging 06/05/2022 9:43 AM LEGAL DOCUMENT ASSISTANT Narrative 06/05/2022 9:44 AM LEGAL DOCUMENT ASSISTANT PROCEDURE: ??XR KNEE LEFT 4VW OR MORE, DATE/TIME OF EXAM: ??06/05/2022 9:36 AM, LOCATION ??[facility] [place] INDICATION: Z96.652: Presence of left artificial knee joint Postoperative appearance of left knee arthroplasty is seen. There is no evidence of periprosthetic fracture or periprosthetic lucency. The soft tissues appear unremarkable. > Interpreting Provider: Bayron Álvarez MD on 06/05/2022 9:44 AM Procedure Note Bayron Álvarez MD - 06/05/2022 PROCEDURE: XR KNEE LEFT 4VW OR MORE, DATE/TIME OF EXAM: 06/05/2022 9:36AM, LOCATION [facility] [place] INDICATION: Z96.652: Presence of left artificial knee joint Postoperative appearance of left knee arthroplasty is seen. There is no evidence of periprosthetic fracture or periprosthetic lucency. The soft tissues appear unremarkable. > Interpreting Provider: Bayron Álvaerz MD on 06/05/2022 9:44 AM Kevin Britton MD DIAGNOSTIC IMAGING ORDERABLES documented in this encounter Visit Diagnoses Diagnosis History of total left knee replacement documented in this encounter Care Teams It Support Analyst Relationship Specialty Start Date End Date Willis Veras MD 6616 [place] [address] PCP - General 05/03/21 Cole Ku MD [address] [place] [place] [phone] General Surgery 11/10/20 documented as of this encounter
--- OUTSIDE RECORDS SUMMARY | 2024-04-25 14:00 | XMS_ITS | Encounter Summary ---
Author Organization [facility] Address [address] [facility] [place] [address] Care Team Providers Care Dishing Machine Operator Name Role Phone Cole Ku MD Unavailable Willis Veras MD Primary Care Provider Encounter Details Date Type Department Care Team (Late st Contact Info) Description 09/23/2022 Orders Only [facility] - Orthopedic Surgery 1031 [place] [address] Yarely Lechuga, SABRINA S/P TKR (total knee replacement), left; Primary osteoarthritis of left knee Social History Tobacco Use Types Packs/Day Years [...] st Contact Info) Description 06/02/2024 10:30 AM STOCK LETTERER Office Visit [facility] - Orthopedic Surgery 1031 [place] [phone] Kevin Britton MD 1031 [facility] 280 [place] [address] 08/10/2024 1:00 PM CDT Office Visit [facility] - LOT ASSOCIATE 1031 [facility] 400 [place] [address] Daja Mir MD 5840 [place] [address] 10/26/2024 1:00 PM CDT Office Visit [facility] - Hematology/Oncology 3594 [place] [phone] Elizabeth Garcia MD 7947 [facility] 3 [place] [address] 01/17/2025 12:30 PM CDT Procedure visit [facility] [address] [place] [phone] 01/17/2025 1:00 PM CDT Office Visit [facility] - GI [address] [place] [phone] Darius Marlena N, INSTRUCTIONAL SUPPORT SPECIALIST-ASSOCIATE PARTNER [address] [place] [address] documented as of this encounter Goals Goal Patient Goal Type Associated Problems Recent Progress Patient-Stated? Author Mobility General On track( 021 9:08 AM STOCK LETTERER) No Tika Pope, RN Note: Expected end [...] leg documented in this encounter Care Teams Dishing Machine Operator Relationship Specialty Start Date End Date Willis Veras MD 6616 [place] [address] PCP - General 05/03/21 Cole Ku MD [address] [place] [address] General Surgery 11/10/20 documented as of this encounter
--- OUTSIDE RECORDS SUMMARY | 2024-04-25 14:00 | XMS_ITS | Encounter Summary ---
Author Organization [facility] Address [address] [facility] [place] [address] Care Team Providers Care Supervisor Pig Machine Name Role Phone Cole Ku MD Unavailable Willis Veras MD Primary Care Provider Reason for Visit * Reason Onset Date Comments MEDICATION REFILL 04/22/2022 Encounter Details Date Type Department Care Team (Late st Contact Info) Description 04/22/2022 Refill [facility] Orthopedic Surgery 1031 [place], [place] [phone] Kevin Britton MD 1031 [facility] 280 [place], [place] [phone] MEDICATION REFILL Social History Tobacco Use Types [...] st Contact Info) Description 06/02/2024 10:30 AM CHIEF CLINICAL OFFICER [facility] 1031 [place] [phone] Kevin Britton MD 1031 [facility] 280 [place] [address] 08/10/2024 1:00 PM CDT Office Visit [facility] - GRAVEL INSPECTOR 1031 [facility] 400 [place] [address] Daja Mir MD 5706 [facility] [place] [address] 10/26/2024 1:00 PM CDT Office Visit [facility] - Hematology/Oncology 5621 [place] [phone] Elizabteh Garcia MD 2613 [facility] [place] [facility] 3 [place] [address] 01/17/2025 12:30 PM CDT Procedure visit [facility] - GI 1225 [facility], [place] [phone] 01/17/2025 1:00 PM CDT Office Visit [facility] - GI 1225 [facility], [place] [phone] Marlena Mccoy, DRIER AND GRINDER TENDER-FOOD DEMONSTRATOR 1225 [facility] 3FL [place] [address] documented as of this encounter Goals Goal Patient Goal Type Associated Problems Recent Progress Patient-Stated? Author Mobility General On track( 021 9:08 AM CHIEF CLINICAL OFFICER) No Tika Pope, RN Note: Expected [...] Diagnosis S/P TKR (total knee replacement), left documented in this encounter Care Teams Supervisor Pig Machine Relationship Specialty Start Date End Date Willis Veras MD 6616 [place] [address] PCP - General 05/03/21 Cole Ku MD 1225 [facility] 2L [place] [address] General Surgery 11/10/20 documented as of this encounter
--- OUTSIDE RECORDS SUMMARY | 2024-04-25 14:00 | XMS_ITS | Encounter Summary ---
Author Organization [facility] Address [address] [place] [address] Care Team Providers Care Engineering Agent Name Role Phone Cole Ku MD Unavailable Willis Veras MD Primary Care Provider Reason for Visit * Reason Onset Date Comments MEDICATION REFILL 06/20/2022 Encounter Details Date Type Department Care Team (Late st Contact Info) Description 06/20/2022 Refill [facility] 1031 [place] [address] Danay Harrell, SENIOR PACKAGING ENGINEER REFILL Social History Tobacco Use Types Packs/Day [...] st Contact Info) Description 06/02/2024 10:30 AM SHOE FOLDER Office Visit [facility] - [facility] [place] [phone] Kevin Britton MD 1031 [facility] 280 [place] [address] 08/10/2024 1:00 PM CDT Office Visit [facility] - WELLNESS SPA MANAGER 1031 [facility] [place] 400 [place] [phone] Daja Mir MD 5034 [place] [address] 10/26/2024 1:00 PM CDT Office Visit [facility] - Hematology/Oncology 5860 [place] [phone] Elizabeth Garcia MD 1609 [facility] 3 [place] [address] 01/17/2025 12:30 PM CDT Procedure visit [facility] - GI [address] [place] [phone] 01/17/2025 1:00 PM CDT [facility] [address] [place] [phone] Marlena Mccoy, TROLLEY CAR MECHANIC-ACCOUNT ANALYST [address] [place] [address] documented as of this encounter Goals Goal Patient Goal Type Associated Problems Recent Progress Patient-Stated? Author Mobility General On track( 021 9:08 AM SHOE FOLDER) No Tika Pope, RN Note: Expected end [...] leg documented in this encounter Care Teams Engineering Agent Relationship Specialty Start Date End Date Willis Veras MD [address] [place] [address] PCP - General 05/03/21 Cole Ku MD [address] [place] [address] General Surgery 11/10/20 documented as of this encounter
--- OUTSIDE RECORDS SUMMARY | 2024-04-25 14:00 | XMS_ITS | Encounter Summary ---
Author Organization [facility] Address [address] [facility] [place] [address] Care Team Providers Care Summer Clerk Name Role Phone Cole Ku MD Unavailable Willis Veras MD Primary Care Provider Reason for Visit * Reason Onset Date Comments MEDICATION REFILL 05/15/2022 Encounter Details Date Type Department Care Team (Late st Contact Info) Description 05/15/2022 Refill [facility] 1031 [place], [place] [phone] Kevin Britton MD 1031 [facility] 280 [place], [place] [phone] MEDICATION REFILL Social History Tobacco Use Types [...] st Contact Info) Description 06/02/2024 10:30 AM CABLE FORMER Office Visit [facility] - Orthopedic Surgery 1031 [place] [phone] Kevin Britton MD 1031 [facility] 280 [place] [address] 08/10/2024 1:00 PM CDT Office Visit [facility] - OPTICAL MECHANIC APPRENTICE 1031 [facility] 400 [place] [phone] Daja Mir MD 570 [facility] [place] [address] 10/26/2024 1:00 PM CDT Office Visit [facility] - Hematology/Oncology [address]7 [place] [phone] Elizabeth Garcia MD 9534 [facility] 3 [place] [address] 01/17/2025 12:30 PM CDT Procedure visit [facility] - GI 1225 [facility] [place] [place] [phone] 01/17/2025 1:00 PM CDT Office Visit [facility] - GI 1225 [facility] [place] [place] [phone] Marlena Mccoy, LABORER-ACTUARIAL ANALYST 1225 [facility] [address]FL [place] [address] documented as of this encounter Goals Goal Patient Goal Type Associated Problems Recent Progress Patient-Stated? Author Mobility General On track( 021 9:08 AM CABLE FORMER) No Tika Pope, RN Note: Expected end [...] leg documented in this encounter Care Teams Summer Clerk Relationship Specialty Start Date End Date Willis Veras MD [address] [place] [address] PCP - General 05/03/21 Cole Ku MD 1225 [facility] 2L [place] [address] General Surgery 11/10/20 documented as of this encounter
--- OUTSIDE RECORDS SUMMARY | 2024-04-25 14:00 | XMS_ITS | Encounter Summary ---
Author Organization [facility] Address [address] [facility] [place] [address] Care Team Providers Care Nursing Services Manager Name Role Phone Cole Ku MD Unavailable Willis Veras MD Primary Care Provider Reason for Visit * Reason Onset Date Comments Treatment 10/07/2022 Encounter Details Date Type Department Care Team (Late st Contact Info) Description 10/07/2022 Telephone [facility] - INDUSTRIAL GAS SERVICER SUPERVISOR 1031 [facility] [address] [place] [address] Cole Garcia MD 1031 [facility] [address] [place] [address] Treatment Social History Tobacco Use Types Packs/Day Years [...] Telephone Encounter - Cole Garcia MD - 10/07/2022 2:03 PM CDT Called patient to discuss treatment plan. Reviewed her clinical course. 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 Patient had been on Tamoxifen, but stopped around the time of the biopsy. We discussed that hysterectomy is standard of care for EIN, but consideration of medical management is reasonable given her unique situation. She was informed that Tamoxifen is known to be associated with and increased incidence of endometrial pathology like EIN. If Tamoxifen was the sole etiology of the pre-cancerous changeson biopsy, this pathology may regress and resolve over time now that the medication is discontinued. Medical management with lng- IUD was discussed as an alternative. Her Medical Oncologist was contacted to discuss whether progestin-based treatment would be contraindicated. They noted that she wouldlikely be at a slightly increased risk of breast cancer while using a lng-IUD, but the risk is not sufficiently high to preclude medical management. They recommended shared decision making with patient after reviewing the pros/cons to her treatment options. We discussed that medical management does have less significant surgical risks, but it has potential problems. Progression of EIN to invasive disease is possible as is recurrence of her breast cancer. Additionally, serial endometrial sampling will be needed to ensure regression of EIN and hysterectomy may be recommended in the future based on these results. We also reviewed surgical treatment. Hysterectomy is a major surgery and has a variety of potential short- and long-term complications thatcould be severe in rare cases, but patient was informed that the vast majority of patients toleratethe procedure and recovery well with no residual issue. Patient had all questions answered and expressed understanding of the above counseling. After reflecting on her options, she would like to proceed with a trial of medical management. Order placed for D&C, hysteroscopy, placement of levonorgestrel IUD. Plan to obtain consent on day of surgery. documented in this encounter Plan of Treatment Upcoming Encounters Date Type Department Care Team (Late st Contact Info) Description 06/02/2024 10:30 AM ENGINEER GEOPHYSICAL LABORATORY Office Visit [facility] - Orthopedic Surgery 1031 [place] [phone] Kevin Britton MD 1031 [facility] 280 [place] [address] 08/10/2024 1:00 PM CDT Office Visit [facility] - INDUSTRIAL GAS SERVICER SUPERVISOR 1031 [facility] 400 [place] [phone] Daja Mir MD 9877 [facility] [place] [place] [address] 10/26/2024 1:00 PM CDT Office Visit [facility] - Hematology/Oncology 3411 [place] [phone] Elizabeth Garcia MD 5881 [facility] 3 [place] [address] 01/17/2025 12:30 PM CDT Procedure visit [facility] - GI [address] [place] [phone] 01/17/2025 1:00 PM CDT Office Visit [facility] - GI [address] [place] [phone] Marlena Mccoy, TRIMMING CUTTER-EVENTS TRAFFIC CONTROLLER [address] DIV [place] [address] documented as of this encounter Goals Goal Patient Goal Type Associated Problems Recent Progress Patient-Stated? Author Mobility General On track( 021 9:08 AM ENGINEER GEOPHYSICAL LABORATORY) No Tika Pope, RN Note: Expected end [...] (EIN) documented in this encounter Care Teams Nursing Services Manager Relationship Specialty Start Date End Date Willis Veras MD 6616 [place] [address] PCP - General 05/03/21 Cole Ku MD [address] [place] [address] General Surgery 11/10/20 documented as of this encounter
--- OUTSIDE RECORDS SUMMARY | 2024-04-25 14:00 | XMS_ITS | Encounter Summary ---
Author Organization [facility] Address [address] [facility] [place] [address] Care Team Providers Care Podiatric Physician Name Role Phone Cole Ku MD Unavailable Willis Veras MD Primary Care Provider Reason for Visit * Reason Comments Establish Care Abnormal Bx Encounter Details Date Type Department Care Team (Late st Contact Info) Description 08/12/2022 3:30 PM CDT Office Visit [facility] Obstetrics Gynecology and Women's Health 10[address] [place], [place] [phone] Cole Garcia MD 1031 [facility] [address] [place], [place] [phone] Simple endometrial hyperplasia (Primary Dx) Social History Tobacco Use Types [...] Reading Time Taken Comments Blood Pressure 126/80 08/12/2022 3:16 PM CDT Pulse 75 08/12/2022 3:16 PM CDT Temperature - - Respiratory Rate - - Oxygen Saturation 98% 08/12/2022 3:16 PM CDT Inhaled Oxygen Concentration - - Weight 93.4 kg (205 lb 12.8 oz) 08/12/2022 3:16 PM CDT Height 170.2 cm (5' 7 ) 08/12/2022 3:16 PM CDT Body Mass Index 32.23 08/12/2022 3:16 PM CDT documented in this encounter Functional [...] Progress Notes * Cole Garcia MD - 08/15/2022 6:[address] [facility] Gynecologic Oncology New Patient Visit Date of Service: 08/12/22 Patient Name: Milagros Torres Chief Complaint: Simple endometrial hyperplasia History of Present Illness: Milagros Torres is a 57 year old referred to me for simple endometrial hyperplasia. Patient has a history of breast cancer [...] hyperplasia. She was referred for further recommendations. Patient has had no vaginal bleeding since [...] on file Food Insecurity: No Food Insecurity ??? Worried About Running Out of Food in the Last Year: Never true ??? Ran Out of Food in the Last Year: Never true Transportation Needs: Not on file Stress: Not on file Housing Stability: Not on file Mechanical Cad Designer History: Ob: 07/2102 ( x2, x1) Menopause: 50yo Last pap: 2022 Exam: BP 126/80 (BP SITE: RIGHT ARM, BP [...] No adnexal masses or tenderness. DANA: Deferred Assessment/Plan: 57 year old with simple endometrial hyperplasia. Simple hyperplasia -Pathology report reviewed with patient. We discussed that hyperplasia is a common finding in patients taking Tamoxifen and this lesion does not represent a pre-malignant condition (i.e. endometrial intra-epithelial neoplasia). She was reassured that the lack of atypia is associated with a much lower risk of malignancy. We also discussed that Tamoxifen use is associated with a higher risk of endometrial neoplasia, but screening with biopsy or US is not indicated and testing should only be obtained in the setting of symptoms. -Recommended pathology review to confirm there is no evidence of atypia or invasive disease that would require treatment. Clinic staff to coordinate request for slides. -If pathology review confirms diagnosis, no additional treatment would be needed at this time. Additional sampling should be obtained if new post-menopausal bleeding develops in the future. Patient has discontinued Tamoxifen. Encouraged patient to discuss utility of discontinuing vs resuming Tamoxifen with her Med Onc given >5yr on therapy. -Informed patient that additional treatment or evaluation if pre-malignant or invasive disease is identified. Plan to f/u in clinic to discuss any treatment recommendations if needed, otherwise can follow up with her primary provider if simple hyperplasia is confirmed. I have spent 60 minutes with the patient of which >50% was spent in counseling. Patient seen with medical student. Cole Garcia MD Therapist Occupational of Gynecologic Oncology Department of Obstetrics, Gynecology, and Women's Health documented in this encounter Plan of Treatment Upcoming Encounters Date Type Department Care Team (Late st Contact Info) Description 06/02/2024 10:30 AM LEAD CUSTODIAN Office Visit [facility] - Orthopedic Surgery 1031 [place] [phone] Kevin Britton MD 1031 [facility] 280 [place] [address] 08/10/2024 1:00 PM CDT Office Visit [facility] - ARRESTING GEAR OPERATOR 1031 [facility] 400 [place] [phone] Daja Mir MD 7212 [facility] [place] [address] 10/26/2024 1:00 PM CDT Office Visit [facility] - Hematology/Oncology [address] [place] [phone] Elizabeth Garcia MD 3661 [facility] 3 [place] [address] 01/17/2025 12:30 PM CDT Procedure visit [facility] - GI [address] [place] [phone] 01/17/2025 1:00 PM CDT Office Visit [facility] - GI [address] [place] [phone] Marlena Mccoy, PASSENGER SOLICITOR-DIGGING MACHINE OPERATOR [address] [place] [address] documented as of this encounter Goals Goal Patient Goal Type Associated Problems Recent Progress Patient-Stated? Author Mobility General On track( 021 9:08 AM LEAD CUSTODIAN) No Tika Pope, RN Note: Expected end [...] as of this encounter Visit Diagnoses Diagnosis Simple endometrial hyperplasia- Primary Endometrial hyperplasia, unspecified documented in this encounter Care Teams Podiatric Physician Relationship Specialty Start Date End Date Willis Veras MD [address]16 [place] [address] PCP - General 05/03/21 Cole Ku MD [address] [place] [address] General Surgery 11/10/20 documented as of this encounter
--- OUTSIDE RECORDS SUMMARY | 2024-04-25 14:00 | XMS_ITS | Encounter Summary ---
Author Organization [facility] Address [address] [facility] [place] [address] Care Team Providers Care Butter Liquefier Name Role Phone Cole Ku MD Unavailable Willis Veras MD Primary Care Provider Reason for Visit * Reason Comments Follow-up Encounter Details Date Type Department Care Team (Late st Contact Info) Description 09/02/2022 10:00 AM CDT Office Visit [facility] Obstetrics Gynecology and Women's Health 1031 [place], [place] [phone] Cole Garcia MD 1031 [facility] [address] [place] [address] EIN (endometrial intraepithelial neoplasia) (Primary Dx) Social [...] PM CDT documented as of this encounter Last Filed Vital Signs Vital Sign Reading Time Taken Comments Blood Pressure 106/80 09/02/2022 10:02 AM CDT Pulse - - Temperature - - Respiratory Rate - - Oxygen Saturation - - Inhaled Oxygen Concentration - - Weight 93.4 kg (205 lb 12.8 oz) 023 10:02 AM CDT Height 170.2 cm (5' 7 ) 09/02/2022 10:0 2 AM CDT Body Mass Index 32.23 09/02/2022 10:02 AM CDT documented in this encounter Functional [...] Progress Notes * Cole Garcia MD - 09/02/2022 12:47 PM CDT [facility] Gynecologic Oncology New Patient Visit Date of Service: 09/02/22 Patient Name: Milagros Torres History of Present Illness: Milagros Torres is a 57 year old with CAH/EIN. Patient recently underwent a TVUS for vaginal bleeding noted on exam following a Pap. She was taking Tamoxifen at that time (of note, she had negative D&C for PMB while on Tamoxifen in 2017 and 2019). A thickened endometrial lining was identified, which prompted an EMB. Outside pathology reportdescribed simple hyperplasia. She was referred for further recommendations. Second review of pathology identified focal CAH/EIN. She presents today to discuss these results. Patient has no new symptoms or concerns today. Path 07/25/22 ([facility] pathology review) Uterus, endometrium, biopsy - [...] Housing Stability: Not on file Exam: BP 106/80 Ht 1.702 m (5' 7 ) Wt 93.4 kg (205 lb 12.8 oz) Gen: NAD Neuro: Oriented x3 Lungs: Non-labored respiration Assessment/Plan: 57 year old with CAH/EIN. 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 We discussed that her results demonstrate apre-invasive lesion of the endometrium. While she does not currently have a cancer diagnosis, thereis about a 30-40% chance of having an underlying malignancy that was not sampled or of developing endometrial cancer in the future. Due to the risk of cancer, some intervention is indicated. -Patient informed that surgical treatment with a minimally invasive approach is typically the standard of care for patients with CAH/EIN who have completed childbearing. Surgery consists of total hysterectomy and bilateral salpingo- oophorectomy with possible staging based on intraoperative findings. We also discussed that medical management with progestin therapy is an option for patients that are unable to undergo surgery due to medical comorbidities or are unwilling to undergo surgery. Patient was informed that this modality does not provide definitive treatment and it would require serial endometrial sampling to assess for response. -We then discussed these treatment options in relation to her clinical scenario. Patient recently discontinued Tamoxifen. She was informed that SERM therapy for breast cancer has a well-established impact on the development of endometrial malignancy and pre-invasive disease. Following the cessationof Tamoxifen, there is a chance that the CAH/EIN changes noted on biopsy may regress without the eff ect of a SERM. While hysterectomy would be an appropriate primary treatment, I recommended giving serious consideration to medical management since these CAH/EIN changes may resolve following discontinuation of Tamoxifen. Patient was informed that CAH/EIN occurs in patients without Tamoxifen so it is possible that these pre-invasive changes would have happened even without exposure to Tamoxifen. If medical management is pursued, we would perform a D&C to provide a more thorough assessment of the endometrial lining before placing a levonorgestrel IUD. Additional endometrial sampling would need to be performed in 3-6 month intervals to ensure treatment effect. If malignancy or persistent C AH/EIN is identified, continued medical management would not be recommended and definitive surgery would be needed. -Patient inquired about the impact of hormonal treatment on her breast cancer risk. While her cancer was CO positive, the systemic exposure to progestin associated with a lng-IUD is relatively low and may be a reasonable option. Will discuss case with her Med Onc to determine whether lng-IUD would have unacceptable risk. -After the above counseling and having all questions answered, patient desires to proceed with medical management if her Med Onc agrees that lng-IUD would be reasonable. If Med Onc concurs with medical management, will plan for D&C and lng-IUD placement. If lng-IUD is felt to be contraindicatedgiven her history of breast cancer or if patient feels uncomfortable with medical management, surgic al management with TLH/BSO would be recommended. -Patient expressed understanding and agreement with the above recommendations. Will contact her to coordinate surgery date (D&C vs TLH) once her case is reviewed with her Med Onc. I have spent 30 minutes with the patient of which >50% was spent in counseling. Patient seen with medical student. Cole Garcia MD Glacing Machine Tender of Gynecologic Oncology Department of Obstetrics, Gynecology, and Women's Health documented in this encounter Plan of Treatment Upcoming Encounters Date Type Department Care Team (Late st Contact Info) Description 06/02/2024 10:30 AM DIESEL DINKEY ENGINEER Office Visit [facility] - Orthopedic Surgery 1031 [place] [address] Kevin Britton MD 1031 [facility] 280 [place] [address] 08/10/2024 1:00 PM CDT Office Visit [facility] - CRISIS INTERVENTION SPECIALIST 1031 [facility] [address] [place] [phone] Daja Mir MD 3645 [facility] [place] [address] 10/26/2024 1:00 PM CDT Office Visit [facility] - Hematology/Oncology [address] [place] [phone] Elizabeth Garcia MD 3669 [facility] [address] 3 [place] [address] 01/17/2025 12:30 PM CDT Procedure visit [facility] - GI 1225 [facility] [place] [phone] 01/17/2025 1:00 PM CDT Office Visit [facility] [place] [address] [place] [address], [place] [phone] Marlena Mccoy, PUBLIC HOUSING MANAGER-FILM COLOR TESTER [address] [place] [address] [facility] [place] [address] documented as of this encounter Goals Goal Patient Goal Type Associated Problems Recent Progress Patient-Stated? Author Mobility General On track( 021 9:08 AM DIESEL DINKEY ENGINEER) No Tika Pope, RN Note: Expected [...] (EIN) documented in this encounter Care Teams Butter Liquefier Relationship Specialty Start Date End Date Willis Veras MD [address] [place] [address] PCP - General 05/03/21 Cole Ku MD [address] [facility] [place] [address] General Surgery 11/10/20 documented as of this encounter
--- OUTSIDE RECORDS SUMMARY | 2024-04-25 14:00 | XMS_ITS | Encounter Summary ---
Author Organization [facility] Health Address [address] [facility] [place] [address] Care Team Providers Care Ethics Manager Name Role Phone Cole Ku MD Unavailable Willis Veras MD Primary Care Provider Encounter Details Date Type Department Care Team (Late st Contact Info) Description 08/22/2022 Orders Only [facility] [address] [place], [place] [phone] Daja Britt, RN Simple endometrial hyperplasia ; Malignant neoplasm of upper-inner quadrant of [...] as of this encounter Progress Notes * Daja Brtit RN - 08/22/2022 10:11 AM CDT Slides to [facility] pathology department for review. Collected: 07/25/2022 documented in this encounter Plan of Treatment Upcoming Encounters Date Type Department Care Team (Late st Contact Info) Description 06/02/2024 10:30 AM CREATIVE ART THERAPIST Office Visit [facility] - Orthopedic Surgery 10[address] [place] [phone] Kevin Britton MD 1031 [facility] 280 [place] [address] 08/10/2024 1:00 PM CDT Office Visit [facility] - ELECTROLYSIS NEEDLE OPERATOR 1031 [facility] 400 [place] [address] Daja Mir MD 7084 [facility] [place] [address] 10/26/2024 1:00 PM CDT Office Visit [facility] - Hematology/Oncology 5584 [place] [phone] Elizabeth Garcia MD 9144 [facility] 3 [place] [phone] 01/17/2025 12:30 PM CDT Procedure visit [facility] [place] [address] [place] [address], [place] [phone] 01/17/2025 1:00 PM CDT Office Visit [facility] [place] [address] [place] [address], [place] [phone] Marlena Mccoy, MOTOR VEHICLE TECHNICIAN-PATIENT REPRESENTATIVE [address] [place] [address] [facility] [place] [address] Scheduled Orders Name Type Priority Associated Diagnoses Orde r Schedule PATHOLOGY TISSUE Pathology Cytology Routine Simple endometrial hyperplasia Malignant neoplasm of upper-inner quadrant of left breast in female, estrogen receptor positive (HCC) Ordered: 08/22/2022 documented as of this encounter Goals Goal Patient Goal Type Associated Problems Recent Progress Patient-Stated? Author Mobility General On track( 021 9:08 AM CREATIVE ART THERAPIST) No Tika Pope, RN Note: Expected [...] Simple endometrial hyperplasia- Primary Endometrial hyperplasia, unspecified Malignant neoplasm of upper-inner quadrant of left breast in female, estrogen receptor positive (HCC) documented in this encounter Care Teams Ethics Manager Relationship Specialty Start Date End Date Willis Veras MD [address] [place] [address] PCP - General 05/03/21 Cole Ku MD 12[address] [facility] 2L [facility] [place] [address] General Surgery 11/10/20 documented as of this encounter
--- OUTSIDE RECORDS SUMMARY | 2024-04-25 14:00 | XMS_ITS | Encounter Summary ---
Author Organization [facility] Address [address] [facility] [place] [address] Care Team Providers Care Manufacturing Engineer Assembly Name Role Phone Cole Ku MD Unavailable Willis Veras MD Primary Care Provider Reason for Visit * Reason Onset Date Comments MEDICATION REFILL 08/22/2022 Encounter Details Date Type Department Care Team (Late st Contact Info) Description 08/22/2022 Refill [facility] Orthopedic [facility] 10[address] [place], [place] [phone] Danay Harrell, MARKETING SYSTEMS ANALYST REFILL Social History Tobacco Use Types Packs/Day [...] st Contact Info) Description 06/02/2024 10:30 AM REPAIR CLERK [facility] - Orthopedic Surgery 1031 [place] [phone] Kevin Britton MD 1031 [facility] 280 [place] [address] 08/10/2024 1:00 PM CDT Office Visit [facility] - DIRECTOR SHOPPER MARKETING 1031 [facility] 400 [place] [address] Daja Mir MD 8820 [facility] [place] [address] 10/26/2024 1:00 PM CDT Office Visit [facility] - Hematology/Oncology 8470 [place] [phone] Elizabeth Garcia MD 3666 [facility] 3 [place] [address] 01/17/2025 12:30 PM CDT Procedure visit [facility] - GI [address], [place] [address] 01/17/2025 1:00 PM CDT Office Visit [facility] - GI 1225 [facility], [place] [address] Marlena Mccoy, FINANCIAL OPERATIONS CONSULTANT-DIE CAST OPERATOR 1225 [facility] 3FL [place] [address] documented as of this encounter Goals Goal Patient Goal Type Associated Problems Recent Progress Patient-Stated? Author Mobility General On track( 021 9:08 AM REPAIR CLERK) No Tika Pope, RN Note: Expected [...] documented in this encounter Care Teams Manufacturing Engineer Assembly Relationship Specialty Start Date End Date Willis Veras MD [address]16 [place] [address] PCP - General 05/03/21 Cole Ku MD 1225 [facility] 2L [place] [address] General Surgery 11/10/20 documented as of this encounter
--- OUTSIDE RECORDS SUMMARY | 2024-04-25 14:00 | XMS_ITS | Encounter Summary ---
Author Organization [facility] Address [address] [place] [address] Care Team Providers Care Electronic Maintenance Supervisor Name Role Phone Cole Ku MD Unavailable Willis Veras MD Primary Care Provider Reason for Visit * Reason Onset Date Comments Question 09/23/2022 Encounter Details Date Type Department Care Team (Late st Contact Info) Description 09/23/2022 Telephone [facility] - LLAMA FARMER 1031 [facility] [address] [place] [address] Cole Garcia MD 1031 [facility] 400 [place] [address] Question Social History Tobacco Use Types Packs/Day [...] encounter Miscellaneous Notes * Telephone Encounter - Fatemeh Bah - 10/03/2022 10:46 AM CDT PT calling wanting an update. PT says she's waited 4 weeks now with a reply. Please advise. PT CB#[phone] * Telephone Encounter - Jesi Brito - 09/23/2022 1:20 PM CDT Patient called and wants to know what is going on.. Please called patient so she can explain it to you better... CB: [phone] documented in this encounter Plan of Treatment Upcoming Encounters Date Type Department Care Team (Late st Contact Info) Description 06/02/2024 10:30 AM ELECTRIC MOTOR ASSEMBLER AND TESTER Office Visit [facility] - Orthopedic Surgery 1031 [place] [address] Kevin Britton MD 1031 [facility] 280 [place] [address] 08/10/2024 1:00 PM CDT Office Visit [facility] - LLAMA FARMER 1031 [facility] [address] [place] [address] Daja Mir MD 570 [facility] [place] [address] 10/26/2024 1:00 PM CDT Office Visit [facility] - Hematology/Oncology 365[address] [place] [address] Elizabeth Garcia MD 3662 [facility] 3 [place] [address] 01/17/2025 12:30 PM CDT Procedure visit [facility] - GI 1225 [facility], [place] [address] 01/17/2025 1:00 PM CDT Office Visit [facility] - GI [address] [place] [address], [place] [phone] Marlena Mccoy, LEATHER GRADER-FAGOT MAKER [address] [place] [address] [facility] [place] [address] documented as of this encounter Goals Goal Patient Goal Type Associated Problems Recent Progress Patient-Stated? Author Mobility General On track( 021 9:08 AM ELECTRIC MOTOR ASSEMBLER AND TESTER) No Tika Pope, RN Note: Expected end [...] on filedocumented in this encounter Care Teams Electronic Maintenance Supervisor Relationship Specialty Start Date End Date Willis Veras MD 6616 [place] [address] PCP - General 05/03/21 Cole Ku MD [address] OF [facility] [place] [address] General Surgery 11/10/20 documented as of this encounter
--- OUTSIDE RECORDS SUMMARY | 2024-04-25 14:00 | XMS_ITS | Encounter Summary ---
Author Organization [facility] Address [address] [facility] [place] [address] Care Team Providers Care Oracle Application Architect Name Role Phone Cole Ku MD Unavailable Willis Veras MD Primary Care Provider Reason for Visit * Reason Comments Surgical Follow-up Encounter Details Date Type Department Care Team (Late st Contact Info) Description 06/05/2022 9:30 AM CLAIMS SERVICE ADJUSTOR Office Visit [facility] Orthopedic [facility] 1031 [place], [place] [phone] Kevin Britton MD [address] [facility] 280 [place], [place] [phone] S/P TKR (total knee replacement), left (Primary Dx) Social History Tobacco Use Types [...] of this encounter Progress Notes * Kevin Britton MD - 06/05/2022 9:30 AM CST Patient returns for follow-up of left total knee arthroplasty 4 months ago. Overall patient is doing well. Denies fevers chills or wound problems. Denies mechanical symptoms. Has been doing home physical therapy. Current Outpatient Medications on File Prior to Visit Medication Sig Dispense Refill ??? acetaminophen (TYLENOL) 500 MG tablet Take 1 (one) tablet by mouth every 6 hours as needed for Fever or Pain Maximum allowable Acetaminophen amount = 4 Grams (4000 mg) / 24 hours. 40 tablet 0 ??? calcium 600 MG tablet Take 1 tablet by mouth daily with food 90 tablet 2 ??? celecoxib (CeleBREX) 50 MG capsule Take 2 (two) capsules by mouth once daily 60 capsule 0 ??? HYDROcodone-acetaminophen ([place]) 5-325 MG tablet Take 1 (one) tablet by mouth every 8 hours asneeded for Pain 21 tablet 0 ??? losartan - hydroCHLOROthiazide (Hyzaar) 50-12.5 MG tablet Take 1 tablet by mouth once daily ??? tamoxifen (Nolvadex) 20 MG tablet Take 1 (one) tablet by mouth once daily 90 tablet 3 ??? Vitamin D3, cholecalciferol, 50 MCG (2000 UT) tablet Take 1 tablet by mouth once daily 90 tablet 2 No current facility-administered medications on file prior to visit. Past Medical History: Diagnosis Date ??? Arthropathy ??? Breast cancer (CMS/HCC) ??? Depression with anxiety ??? Disorder of liver NAFLD ??? Gallstones ??? Hypertension required meds when getting radiation for breast CA. No longer requiring meds ??? Malignancy (CMS/HCC) breast left ??? Valvular heart disease heart murmur Past Surgical History: Procedure Laterality Date ??? BIOPSY BREAST ??? Breast Lumpectomy Left 09/04/2015 With sentinel node biopsy performed by Dr. Brittni Knight ??? Section 05/1990 ??? Cholecystectomy, Laparoscopic N/A 12/05/2020 N/A; LAPAROSCOPIC CHOLECYSTECTOMY ??? COLONOSCOPY N/A 09/18/2020 N/A; COLONOSCOPY SCREEN---extended prep with Cheesman ??? Dilation and Curettage twice ??? KNEE ARTHROPLASTY Left 02/01/2022 Left; TOTAL [...] Lung Mother ??? Cancer - Breast Sister Review of Systems Constitutional: Negative for chills, fever, malaise/fatigue and weight loss. Respiratory: Negative for shortness of breath. Cardiovascular: Negative for claudication and leg swelling. Musculoskeletal: Negative for falls and joint pain. Skin: Negative for itching and rash. Neurological: Negative for focal weakness. All other systems reviewed and are negative. Physical exam: Pt is awake and alert BMI is 32 Facial expressions are appropriate Pt is cooperative with exam Examination of the left knee reveals a well-healed scar without signs of infection. left knee has acouple degrees short of full extension with no extension lag and the patient can flex past 110 degrees. left knee is stable to varus valgus and anterior posterior stresses. X-rays: X-rays were reviewed and my independent interpretation/assessment of the 4 views of the left knee reveals a well aligned left knee arthroplasty without apparent complication Assessment: Status post left total knee arthroplasty doing well Plan: We will provide patient with a prescription for outpatient physical therapy. We will see the patient back in 12 months. Continue range of motion and strengthening exercises which we discussed and had the patient demonstrate in the clinic today. We discussed antibiotic prophylaxis before invasive procedures. Patient understood the treatment plan and all questions were answered. MS SERVICE ADJUSTOR documented in this encounter Plan of Treatment Upcoming Encounters Date Type Department Care Team (Late st Contact Info) Description 06/02/2024 10:30 AM CLAIMS SERVICE ADJUSTOR [facility] Visit [facility]opedic Surgery [facility]1 [place] [phone] Kevin Britton MD [address] [facility] 280 [place] [address] 08/10/2024 1:00 PM CDT Office Visit [facility] - WHOLESALE ACCOUNT MANAGER 1031 [facility] 400 [place] [address] Daja Mir MD 5705 [facility] [place] [place] [address] 10/26/2024 1:00 PM CDT Office Visit [facility] - Hematology/Oncology 3655 [place] [address] Elizabeth Garcia MD 3660 [facility] 3 [place] [address] 01/17/2025 12:30 PM CDT Procedure visit [facility] - GI [address] [place] [phone] 01/17/2025 1:00 PM CDT Office Visit [facility] - GI [address] [place] [phone] Marlena Mccoy, CAMP HEAD COUNSELOR-CLAY HOUSE WORKER [address] [place] [address] [facility] [place] [address] documented as of this encounter Goals Goal Patient Goal Type Associated Problems Recent Progress Patient-Stated? Author Mobility General On track( 021 9:08 AM CLAIMS SERVICE ADJUSTOR) No Tika Pope, SABRINA Note: Expected end [...] S/P TKR (total knee replacement), left- Primary documented in this encounter Care Teams Oracle Application Architect Relationship Specialty Start Date End Date Willis Veras MD [address]16 [place] [address] PCP - General 05/03/21 Cole Ku MD [address] [address] General Surgery 11/10/20 documented as of this encounter
--- OUTSIDE RECORDS SUMMARY | 2024-04-25 14:01 | XMS_ITS | Encounter Summary ---
Author Organization [facility] Address [address] [place] [address] Care Team Providers Care Milling Supervisor Name Role Phone Cole Ku MD Unavailable Willis Veras MD Primary Care Provider Reason for Visit * Reason Onset Date Comments MEDICATION REFILL 04/01/2022 Encounter Details Date Type Department Care Team (Late st Contact Info) Description 04/01/2022 Refill [facility] Orth[facility] Surgery 1031 [place], [place] [phone] Kevin Britton MD 1031 [facility] 280 [place], [place] [phone] MEDICATION REFILL Social History Tobacco Use Types [...] st Contact Info) Description 06/02/2024 10:30 AM ENDOCRINOLOGY TEACHER Office Visit [facility] - Orthopedic Surgery 1031 [place] [address] Kevin Britton MD 1031 [facility] 280 [place] [address] 08/10/2024 1:00 PM CDT Office Visit [facility] - MORTICIAN HELPER 1031 [facility] 400 [place] [address] Daja Mir MD 5705 [facility]'s [facility] [place] [address] 10/26/2024 1:00 PM CDT Office Visit [facility] - Hematology/Oncology 7421 [place] [phone] Elizabeth Garcia MD 8883 [facility] 3 [place] [address] 01/17/2025 12:30 PM CDT Procedure visit [facility] - GI 1225 [facility], [place] [phone] 01/17/2025 1:00 PM CDT Office Visit [facility] - GI 1225 [facility], [place] [phone] Marlena Mccoy, TECHNOLOGY DEVELOPMENT INTERN-PULMONOLOGY TECHNICIAN 1225 [facility] 3FL [place] [address] documented as of this encounter Goals Goal Patient Goal Type Associated Problems Recent Progress Patient-Stated? Author Mobility General On track( 021 9:08 AM ENDOCRINOLOGY TEACHER) No Tika Pope, RN Note: Expected end [...] left documented in this encounter Care Teams Milling Supervisor Relationship Specialty Start Date End Date Willis Veras MD 6616 [place] [address] PCP - General 05/03/21 Cole Ku MD 1225 [facility] 2L [place] [address] General Surgery 11/10/20 documented as of this encounter
--- OUTSIDE RECORDS SUMMARY | 2024-04-25 14:01 | XMS_ITS | Encounter Summary ---
Author Organization [facility] Address [address] [facility] [place] [address] Care Team Providers Care Senior Marketing Analyst Name Role Phone Cole Ku MD Unavailable Willis Veras MD Primary Care Provider Reason for Visit * Reason Onset Date Comments MEDICATION REFILL 03/21/2022 Encounter Details Date Type Department Care Team (Late st Contact Info) Description 03/21/2022 Refill [facility] 1031 [place], [place] [phone] Kevin Britton MD 1031 [facility] 280 [place], [place] [phone] MEDICATION REFILL Social History Tobacco Use Types [...] st Contact Info) Description 06/02/2024 10:30 AM HOME SCHOOL COORDINATOR Office Visit [facility] - Orthopedic Surgery 1031 [place] [phone] Kevin Britton MD 1031 [facility] 280 [place] [address] 08/10/2024 1:00 PM CDT Office Visit [facility] - DIRECTOR OF FRONT OFFICE 1031 [facility] 400 [place] [address] Daja Mir MD 5703 [facility]'s [facility] [place] [address] 10/26/2024 1:00 PM CDT Office Visit [facility] - Hematology/Oncology 9092 [place] [address] Elizabeth Garcia MD 6363 [facility] 3 [place] [address] 01/17/2025 12:30 PM CDT Procedure visit [facility] - GI 1225 [facility], [place] [phone] 01/17/2025 1:00 PM CDT Office Visit [facility] - GI 1225 [facility], [place] [phone] Marlena Mccoy, PRODUCT TEST SPECIALIST-CONTROL SYSTEMS SPECIALIST 1225 [facility] 3FL [place] [address] documented as of this encounter Goals Goal Patient Goal Type Associated Problems Recent Progress Patient-Stated? Author Mobility General On track( 021 9:08 AM HOME SCHOOL COORDINATOR) No Tika Pope, RN Note: Expected [...] left documented in this encounter Care Teams Senior Marketing Analyst Relationship Specialty Start Date End Date Willis Veras MD [address]16 [place] [address] PCP - General 05/03/21 Cole Ku MD 1225 [facility] 2L [place] [address] General Surgery 11/10/20 documented as of this encounter
--- OUTSIDE RECORDS SUMMARY | 2024-04-25 14:01 | XMS_ITS | Encounter Summary ---
Author Organization [facility] Health Address [address] [facility] [place] [address] Care Team Providers Care Oracle Fusion Middleware Architect Name Role Phone Cole Ku MD Unavailable Willis Veras MD Primary Care Provider Encounter Details Date Type Department Care Team (Latest Contact Info) Description 03/20/2022 10:32 AM TASSEL SNIPPER - 03/20/2022 11:59 PM [facility] Hospital Encounter [facility] [address] [facility] 2nd [place] [address] Discharge Disposition: Home or Self Care Social [...] capsules by mouth once daily 60 capsule 02/15/2022 3 HYDROcodone-acetaminophen ([place]) 5-325 MG tabletIndications:S/P TKR (total knee replacement), left Take 1 (one) tablet by mouth every 6 hours as needed for Pain 28 tablet 03/08/2022 2 tamoxifen (Nolvadex) 20 MG tabletIndications:Encount er for monitoring tamoxifen therapy,History of breast cancer Take 1 (one) tablet by mouth once daily 90 tablet 3 03/20/2022 3 documented as of this encounter Plan of Treatment Upcoming Encounters Date Type Department Care Team (Late st Contact Info) Description 06/02/2024 10:30 AM TASSEL SNIPPER Office Visit [facility] - Orthopedic Surgery [address] [place] [phone] Kevin Britton MD 10[address] [facility] 280 [place] [address] 08/10/2024 1:00 PM CDT Office Visit [facility] - SMOKING PIPE COATER [address] [facility] [address] [place] [phone] Daja Mir MD [address] [facility] [place] [place] [address] 10/26/2024 1:00 PM CDT Office Visit [facility] - Hematology/Oncology [address] [place] [phone] Elizabeth Garcia MD [address] [facility] 3 [place] [address] 01/17/2025 12:30 PM CDT Procedure visit [facility] [place] [address] [place] [address], [place] [phone] 01/17/2025 1:00 PM CDT Office Visit [facility] - GI [address] [place] [address], [place] [phone] Marlena Mccoy, FISH CLEANER MACHINE TENDER-MEASUREMENT DEPARTMENT CHIEF CLERK [address] [place] [address] [facility] [place] [address] documented as of this encounter Goals Goal Patient Goal Type Associated Problems Recent Progress Patient-Stated? Author Mobility General On track( 021 9:08 AM TASSEL SNIPPER) No Tika Pope, SABRINA Note: Expected end [...] Associated Diagnosis Comments VITAMIN D 25-HYDROXY LINDA 03/20/2022 10:36 AM TASSEL SNIPPER Vitamin D deficiency, unspecified Encounter for monitoring tamoxifen therapy History of breast cancer CBC W AUTO DIFFERENTIAL STAT 03/20/2022 10:36 AM TASSEL SNIPPER Vitamin D deficiency, unspecified Encounter for monitoring tamoxifen therapy History of breast cancer COMPREHENSIVE METABOLIC PANEL STAT 03/20/2022 10:36 AM TASSEL SNIPPER Vitamin D deficiency, unspecified Encounter for monitoring tamoxifen therapy History of breast cancer documented in this encounter Results * VITAMIN D 25-HYDROXY (03/20/2022 10:36 AM [facility]) [facility] Vitamin D, 25 Hydroxy 35.0 30.0 - 80.0 ng/mL 03/20/2022 11:34 AM [facility] Comment: The recommendations for 25-Hydroxy Vitamin D [...] SPECIMEN / Unknown Lab Venipuncture / Unknown 03/20/2022 10:36 AM TASSEL SNIPPER 03/20/2022 10:45 AM [facility] Araseli Byers MD LAB - CHEMISTRY LD [place] [facility] [address] [place] [address], [facility] [phone] * (ABNORMAL) COMPREHENSIVE METABOLIC PANEL (03/20/2022 10:36 AM [facility]) BUN 15 7 - 26 mg/dL 03/20/2022 11:17 AM [facility] Creatinine 1.07(H) 0.56 - 0.96 mg/dL 03/20/2022 11:17 AM [facility] Sodium 139 136 - 145 mmol/L 03/20/2022 11:17 AM [facility] Potassium 3.7 3.5 - 4.5 mmol/L 03/20/2022 11:17 AM [facility] Chloride 109(H) 98 - 107 mmol/L 03/20/2022 11:17 AM [facility] CO2 21(L) 22 - 29 mmol/L 03/20/2022 11:17 AM [facility] Glucose 147(H) 70 - 115 mg/dL 03/20/2022 11:17 AM [facility] Calcium 9.3 8.4 - 10.2 mg/dL 03/20/2022 11:17 AM [facility] Protein Total 6.9 6.0 - 8.3 g/dL 03/20/2022 11:17 AM [facility] Albumin 3.6 3.4 - 5.0 g/dL 03/20/2022 11:17 AM [facility] Bilirubin Total 0.3 0.2 - 1.2 mg/dL 03/20/2022 11:17 AM [facility] Alkaline Phosphatase 87 40 - 150 U/L 03/20/2022 11:17 AM [facility] ALT 21 5 - 55 U/L 03/20/2022 11:17 AM [facility] AST 36(H) 5 - 34 U/L 03/20/2022 11:17 AM [facility] Anion Gap 13 8 - 18 03/20/2022 11:17 AM [facility] BUN/Creatinine Ratio 14 7 - 23 03/20/2022 11:17 AM [facility] Osmolality Calculated 292 270 - 300 mOsm/kg 03/20/2022 11:17 AM [facility] Albumin/Globulin Ratio 1.1 1.1 - 2.3 03/20/2022 11:17 AM [facility] eGFR by CKD-EPI 61(L) >=90 mL/min/1.7 3 m2 03/20/2022 11:17 AM [facility] Blood BLOOD SPECIMEN / Unknown Lab Venipuncture / Unknown 03/20/2022 10:36 AM TASSEL SNIPPER 03/20/2022 10:45 AM [facility] Araseli Byers MD LAB - CHEMISTRY LD [place]A [facility] Organization Address City/State/ZIP Co de Phone Number [address] [phone] [phone] * (ABNORMAL) CBC WITH DIFFERENTIAL (03/20/2022 10:36 AM TASSEL SNIPPER) WBC 5.1 3.5 - 10.5 10? 3 /uL 03/20/2022 10:49 AM [facility] RBC 3.70(L) 3.80 - 5.20 10? 6 /uL 03/20/2022 10:49 AM [facility] Hemoglobin 11.2(L) 12.0 - 15.6 g/dL 03/20/2022 10:49 AM [facility] Hematocrit 34.6(L) 35.0 - 45.0 % 03/20/2022 10:49 AM [facility] MCV 93.5 80.7 - 98.3 fL 03/20/2022 10:49 AM [facility] MCH 30.3 26.7 - 34.0 pg 03/20/2022 10:49 AM [facility] MCHC 32.4 30.8 - 35.9 g/dL 03/20/2022 10:49 AM [facility] RDW-SD 44.2 36.0 - 50.0 fL 03/20/2022 10:49 AM [facility] RDW-CV 12.9 11.2 - 14.8 % 03/20/2022 10:49 AM [facility] Platelet Count 173 150 - 400 10? 3 /uL 03/20/2022 10:49 AM [facility] MPV 11.4 9.4 - 12.9 fL 03/20/2022 10:49 AM [facility] nRBC Absolute 0.00 0 10? 3 /uL 03/20/2022 10:49 AM [facility] nRBC Auto 0.0 0 /100 WBC 03/20/2022 10:49 AM [facility] Neutrophils % 46.7 35.0 - 70.0 % 03/20/2022 10:49 AM [facility] Lymphocytes % 42.2 20.0 - 43.0 % 03/20/2022 10:49 AM [facility] Monocytes % 7.3 5.0 - 13.0 % 03/20/2022 10:49 AM [facility] Eosinophils % 3.2 0.0 - 6.0 % 03/20/2022 10:49 AM [facility] Basophil % 0.4 0.0 - 2.0 % 03/20/2022 10:49 AM [facility] Neutrophils Absolute 2.36 1.60 - 7.00 10? 3 /uL 03/20/2022 10:49 AM [facility] Lymphocyte Absolute 2.13 1.10 - 3.90 10? 3 /uL 03/20/2022 10:49 AM [facility] Monocytes Absolute 0.37 0.26 - 1.07 10? 3 /uL 03/20/2022 10:49 AM [facility] Eosinophils Absolute 0.16 0.00 - 0.47 10? 3 /uL 03/20/2022 10:49 AM [facility] Basophils Absolute 0.02 0.00 - 0.08 10? 3 /uL 03/20/2022 10:49 AM [facility] Immature Granulocytes % 0.2 0.0 - 1.0 % 03/20/2022 10:49 AM [facility] Immature Granulocytes Absolute 0.01 03/20/2022 10:49 AM [facility] Blood BLOOD SPECIMEN / Unknown Lab Venipuncture / Unknown 03/20/2022 10:36 AM TASSEL SNIPPER 03/20/2022 10:45 AM TASSEL SNIPPER Araseli Byers MD LAB - HEMATOLOGY ORD ERABLES [facility] [address] [place] [address], [facility] [phone] documented in this encounter Visit Diagnoses Diagnosis Vitamin D deficiency, unspecified Encounter for monitoring tamoxifen therapy Encounter for therapeutic drug monitoring History of breast cancer Personal history of malignant neoplasm of breast documented in this encounter Care Teams Oracle Fusion Middleware Architect Relationship Specialty Start Date End Date Willis Veras MD [address] [place] [address] PCP - General 05/03/21 Cole Ku MD [facility] [address]L [place] [address] General Surgery 11/10/20 documented as of this encounter
--- OUTSIDE RECORDS SUMMARY | 2024-04-25 14:01 | XMS_ITS | Encounter Summary ---
Author Organization [facility] Health Address [address] [facility] [place] [address] Care Team Providers Care Instrument Assembler Name Role Phone Cole Ku MD Unavailable Willis Veras MD Primary Care Provider Encounter Details Date Type Department Care Team (Latest Contact Info) Description 03/20/2022 Travel Social History Tobacco Use Types Packs/Day [...] st Contact Info) Description 06/02/2024 10:30 AM TENNIS BALL COVER CEMENTER Office Visit [facility] - Orthopedic Surgery [address] [place] [phone] Kevin Britton MD 1031 [facility] [address] [place] [address] 08/10/2024 1:00 PM CDT Office Visit [facility] - DIRECTOR CLINICAL APPLICATIONS [address] [facility] 400 [place] [phone] Daja Mir MD [address] [place] [address] 10/26/2024 1:00 PM CDT Office Visit [facility] - Hematology/Oncology [address] [place] [phone] Elizabeth Garcia MD 36[address] [facility] 3 [place] [address] 01/17/2025 12:30 PM CDT Procedure visit [facility] - GI [address] [place] [phone] 01/17/2025 1:00 PM CDT Office Visit [facility] - GI [address] [place] [phone] Marlena Mccoy, MARBLE CARVER-ORDNANCE TRUCK INSTALLATION SUPERVISOR [address] [place] [address] [facility] [place] [address] documented as of this encounter Goals Goal Patient Goal Type Associated Problems Recent Progress Patient-Stated? Author Mobility General On track( 021 9:08 AM TENNIS BALL COVER CEMENTER) No Tika Pope, SABRINA Note: Expected end [...] on filedocumented in this encounter Care Teams Instrument Assembler Relationship Specialty Start Date End Date Willis Veras MD [address] [place] [address] PCP - General 05/03/21 Cole Ku MD [address] [place] [address] General Surgery 11/10/20 documented as of this encounter
--- OUTSIDE RECORDS SUMMARY | 2024-04-25 14:02 | XMS_ITS | Encounter Summary ---
Author Organization [facility] Address [address] [place] [address] Care Team Providers Care Rn Case Mgr Name Role Phone Cole Ku MD Unavailable Willis Veras MD Primary Care Provider Encounter Details Date Type Department Care Team (Late st Contact Info) Description 03/01/2022 Orders Only [facility] Orthopedic Surgery [address] [facility] [place] [phone] Kevin Britton MD 10[address] [facility] 280 [place], [place] [phone] S/P TKR (total knee replacement), left Social History Tobacco Use Types Packs/Day Years [...] st Contact Info) Description 06/02/2024 10:30 AM WATER ATTENDANT Office Visit [facility] - Orthopedic Surgery [address] [place] [phone] Kevin Britton MD 10[address] [facility] [address] [place] [address] 08/10/2024 1:00 PM CDT Office Visit [facility] - EQUITY STRUCTURER [address] [facility] [address] [place] [phone] Daja Mir MD [address] [facility] [place] [place] [address] 10/26/2024 1:00 PM CDT Office Visit [facility] - Hematology/Oncology [address] [place] [phone] Elizabeth Garcia MD [address] [facility] 3 [place] [address] 01/17/2025 12:30 PM CDT Procedure visit [facility] - GI [address] [facility] [place] [phone] 01/17/2025 1:00 PM CDT Office Visit [facility] - GI [address] [facility] [place] [address] Marlena Mccoy, RESTUARANT CREW WORKER-AB INITIO ETL DEVELOPER [address] [facility] [place] [address] documented as of this encounter Goals Goal Patient Goal Type Associated Problems Recent Progress Patient-Stated? Author Mobility General On track( 021 9:08 AM WATER ATTENDANT) No Tika Pope, RN Note: Expected end [...] * XR KNEE LEFT 4VW OR MORE (03/05/2022 9:01 AM CDT) Anatomical Region Laterality Modality Lower Extremity Radiographic Alena ging 03/05/2022 9:10 AM CDT Narrative 03/05/2022 9:10 AM CDT PROCEDURE: ??XR KNEE LEFT 4VW OR MORE, DATE/TIME OF EXAM: ??03/05/2022 9:01 AM, LOCATION ??[facility] INDICATION: Z96.652: Presence of left artificial knee joint findings/impression: Postoperative appearance of left knee arthroplasty is seen without evidence of periprosthetic fracture lucency. There is no evidence of joint effusion. The soft tissues appear unremarkable. > Interpreting Provider: Bayron Álvarez MD on 03/05/2022 9:10 AM Procedure Note Bayron Álvarez MD - 03/05/2022 PROCEDURE: XR KNEE LEFT 4VW OR MORE, DATE/TIME OF EXAM: 03/05/2022 9:01 AM, LOCATION [facility] INDICATION: Z96.652: Presence of left artificial knee joint findings/impression: Postoperative appearance of left knee arthroplastyis seen without evidence of periprosthetic fracture lucency. There is no evidence of joint effusion. The soft tissues appear unremarkable. > Interpreting Provider: Bayron Álvarez MD on 03/05/2022 9:10 AM Kevin Britton MD DIAGNOSTIC IMAGING ORDERABLES documented in this encounter Visit Diagnoses Diagnosis S/P TKR (total knee replacement), left- Primary S/P TKR (total knee replacement), left documented in this encounter Care Teams Rn Case Mgr Relationship Specialty Start Date End Date Willis Veras MD [address] [place] [address] PCP - General 05/03/21 Cole Ku MD [address] [place] [address] General Surgery 11/10/20 documented as of this encounter
--- OUTSIDE RECORDS SUMMARY | 2024-04-25 14:02 | XMS_ITS | Encounter Summary ---
Author Organization [facility] Address [address] [place] [address] Care Team Providers Care Preschool Assistant Director Name Role Phone Cole Ku MD Unavailable Willis Veras MD Primary Care Provider Reason for Visit * Auth/Cert Specialty Diagnoses / Procedures Referred By Americo peters Referred To Contact Diagnoses Diagnosis unknown Diagnosis unknown [R69] Procedures ARTHROPLASTY TOTAL KNEE Referral ID Status Reason Start Date Expiration Date Visits Re quested Visits Authorized [id number] 1 1 Encounter Details Date Type Department Care Team (Late st Contact Info) Description 02/01/2022 7:23 AM CDT Anesthesia Event [facility] [address] [place] [address] Arielle Brandt MD [address] [place] [address] Aly Mckeon MD [address] [facility] [place] [address] Anesthesia Record Procedure Summary Procedure Name Responsible Anesthesiologist Anesthesia Start Time Anesthesia Stop Time TOTAL KNEE ARTHROPLASTY (Left: Knee) Arielle Brandt MD 02/01/22 0723 02/01/22 0922 Events Date Time Event Comment 02/01/2022 0714 0723 An Start Chart reviewed and discussed with anesthesiologist. Patient IDd, all questions answered, IV sedation given as charted, to OR 0723 An Start Data assisted patie nt to OR table, monitors applied, obtaining vital signs 0727 PT Reassessment 0728 Induction 100% oxygen for greater than 3 min, smooth IV induction, easy ventilation. 0730 An Intubation DL x 1, OETT p laced without difficulty, atraumatic, positive BBS, secured in place. 0746 Timeout Anesthesia part icipated in timeout at the time documented in the record by nursing. 0913 Extubation 0916 an stop data 0916 Electnc Sig This record is electronically signed by the providers listed under staff. 0916 ANPTO2 0922 An Stop Meds Name Total lidocaine 2% injection (20 mg/ml) 100 mg propofol 200mg/20mL injection 50 mg rocuronium 50mg/5mL injection 50 mg dexamethasone 4 mg/ml injection 8 mg ondansetron 4 mg/2mL injection 4 mg ketorolac 30 mg/ml injection 30 mg sugammadex 200 mg/2 mL injection 200 mg ceFAZolin (Ancef) 2,000 mg in 50 ml IVPB 4 g dexMEDETOmidine (PRECEDEX) 200 mcg/2ml i njection 60 mcg ketamine 50 mg/ml injection 50 mg esmolol 100 mg/10ml injection 40 mg tranexamic acid (Cyklokapron) 1,000 mg i n 0.9% NaCl IV 110 mL bolus 2,000 mg magnesium sulfate 1000 mg/2mL injection 2 g diphenhydrAMINE 50mg/ml injection 25 mg gentamicin 80mg/2ml 180 mg ePHEDrine injection 50 mg/ml 15 mg fentaNYL 100 mcg/2mL injection 100 mcg midazolam (VERSED) injection 2 mg lidocaine (XYLOCAINE) 1 % injection 1 mL ropivacaine (NAROPIN) 5 MG/ML (0.5%) inj ection 30 mL lactated ringers infusion 1,030 mL * Agents Name Insp. N2O Exp. Sevoflurane Exp. N2O O2 Air Insp. Sevoflurane N2O * Blood No blood administrations on file. Lines, Drains, and Airways Type Details Placement Removal Peripheral IV Date: 02/01/22; Time : 630; Orientation: Right; Placed By: Mary Alice BENNETT; Tolerance: Well 02/01/22 0631 by Cindy Charles RN 02/02/22 0949 by Wendie Blunt RN ETT Date: 02/01/22; Time : 0730; Placed By: VIRAJ Hickey; Vent: easy mask; Induction: Standard IV; Blade Type: Oglesby; Blade Size: 2; Laryngoscopy View: Grade 1 (full cords); Tube: Endotracheal Tube; Placement: Oral; Tube Type: Cuffed-inflated; Tube Size(mm): 7 MM; Depth of Insertion: 21 CM; Measured From: lips; Attempts: 1; Cuff Infated: Air; Verified By: Direct visualization, Bilateral breath sounds, Chest Auscultation, CO2 Monitor 02/01/22 0730 by Arabella Dunbar APRN-CRNA 02/01/22 0913 by Arabella Dunbar APRN-CRNA Procedural Site (Incision) 02/01/22; 0753; Left; Knee; 02/02/22; 1614 02/01/22 0753 by Nora Ríos 02/02/22 1614 by Generic, Auto Release documented in this [...] as of this encounter Progress Notes * Arielle Brandt MD - 02/01/2022 1:06 PM CDT ANESTHESIA POSTOP EVALUATION NOTE Procedure: TOTAL KNEE ARTHROPLASTY (Left Knee) Milagros Torres is a 56 year old female Patient Vitals for the past 6 hrs: BP Temp Pulse Resp SpO2 Pain Rating Score #1 Pain Scale/Observation 02/01/22 0920 110/69 97 ??F (36.1 ??C) 85 18 96 % 0 F;B 02/01/22 0925 97/67 -- 78 16 100 % -- -- 02/01/22 0930 96/55 -- 78 16 100 % -- -- 02/01/22 0935 105/56 -- 76 19 100 % 0 F;B 02/01/22 0940 100/66 -- 73 24 100 % -- -- 02/01/22 0945 107/62 -- 98 17 100 % -- -- 02/01/22 0950 97/67 -- 63 31 100 % -- -- 02/01/22 0955 85/59 -- 64 18 97 % -- -- 02/01/22 0958 -- -- -- -- -- 4 N;B 02/01/22 0959 -- -- 59 14 (!) 89 % -- -- 02/01/22 1000 92/66 -- 58 14 95 % -- -- 02/01/22 1005 96/54 -- 56 20 97 % -- -- 02/01/22 1010 95/55 -- 56 16 100 % 0 F;B 02/01/22 1015 101/60 -- 72 (!) 8 100 % -- -- 02/01/22 1020 -- -- 57 15 98 % -- -- 02/01/22 1040 121/75 97.4 ??F (36.3 ??C) 63 16 100 % 7 N 02/01/22 1203 -- -- -- -- -- 9 N Anesthesia Type: general ETT Pre-op Diagnosis Codes: * Diagnosis unknown [R69] Mental Status: awake, alert and sufficiently recovered from acute administration of anesthesia to participate in the evaluation Neuro Status: No numbness, tingling or visual disturbances Respiratory Function: natural Cardiac Function: stable Postop Pain: acceptable to the patient Postop Hydration: adequate Postop Nausea: none Assessment: no apparent anesthetic complications Patient Disposition: Release from Anesthesia Care COMPLICATIONS: No complications documented. * Arielle Brandt MD - 02/01/2022 6:27 AM CDT ANESTHESIA PREOPERATIVE EVALUATION NOTE Procedure: TOTAL KNEE ARTHROPLASTY (Left Knee) NPO status: *Except Oral meds with H2O (02/01/2022 6:00 AM) Last Solids/Dairy: 1900 (02/01/2022 6:00 AM) Last Clear Liquids: 0600 (02/01/2022 6:00 AM) Vitals: Patient Vitals for the past 6 hrs: BP Temp Pulse Resp SpO2 Pain Rating Score #1 02/01/22 0609 153/87 97.6 ??F (36.4 ??C) 60 16 100 % 4 LMP: No LMP recorded. Patient is postmenopausal. OB Status: Postmenopausal ANESTHESIA PRE-EVALUATION NOTE The patient is a current non-smoker. The patient was instructed to abstain from smoking on day of procedure. The patient did not smoke on the day of the procedure. Physical Exam: Orientation X3 Airway/Mallampati Score: II Mouth Opening Distance: 3 fingerwidths Neck ROM: full TM Distance: < 3 FB Teeth: normal Heart: normal - S1 S2 Lungs: clear to ausculation bilaterally Review of Systems: History of anesthetic complications: No Sleep Apnea Risk: No GERD: No Poor Exercise Tolerance: No Recent Chest Pain: No Shortness of Breath: No AICD/Pacemaker: No Renal Disease: No ANESTHESIA PLAN ASA Score: 2 NPO Status: No solids since midnight and No liquids within 2 hours Anesthesia Plan: general ETT Nerve Blocks: adductor canal. Planned Induction: intravenous and inhalation Anesthetic plan was discussed with: patient Anesthetic Plan discussion was: Consented The patient's procedural Anesthetic Plan was discussed with the anesthesiologist and ACTIVITIES COUNSELOR. BMI, Height, Weight Tobacco History Estimated body mass index is 32.11 kg/m?? as calculated from the following: Height as of this encounter: 1.702 m (5' 7 ). Weight as of this encounter: 93 kg (205 lb). Social History Tobacco Use Smoking Status Never Smoker Smokeless Tobacco Never Used Alcohol History Drug History Social History Substance and Sexual Activity Alcohol Use Yes Comment: ocassional weekends Social History Substance and Sexual Activity Drug Use Never Outpatient Medications: Inpatient Medications: Outpatient Medications Marked as Taking for the 02/01/22 encounter (Hospital Encounter) Medication Sig Last Dose ??? calcium Take 1 tablet by mouth daily with food 01/31/2022 at Unknown time ??? losartan - hydroCHLOROthiazide Take 1 tablet by mouth once daily 01/31/2022 at Unknown time ??? meloxicam Take 1 (one) tablet by mouth once daily 01/24/2022 at Unknown time ??? tamoxifen TAKE 1 TABLET BY MOUTH EVERY DAY 01/31/2022 at Unknown time ??? Vitamin D3 (cholecalciferol) Take 1 tablet by mouth once daily 01/31/2022 at Unknown time Current Facility-Administered Medications Medication Dose Last Admin ??? ceFAZolin 2 g ??? gentamicin 180 mg ??? lactated ringers 75 mL/hr ??? tranexamic acid 1,000 mg ??? tranexamic acid 1,000 mg Allergies: No Known Allergies Relevant Problems No relevant active problems Problem List: Patient Active Problem List Diagnosis Date Noted ??? NAFLD (nonalcoholic fatty liver disease) 05/15/2020 Priority: Not Prioritized 11/10/20 Fibroscan CAP 332, LSM 9.4 kPa ??? Depression 11/17/2015 Priority: Not Prioritized ??? Anxiety 09/19/2015 Priority: Not Prioritized ??? Malignant neoplasm of upper-inner quadrant of left breast in female, estrogen receptor [id number]/24/2016 Priority: Not Prioritized ??? Benign essential HTN 07/21/2015 Priority: Not Prioritized Medical History: Past Medical History: Diagnosis Date ??? Arthropathy ??? Breast cancer ??? Depression with anxiety ??? Disorder of liver NAFLD ??? Gallstones ??? Hypertension required meds when getting radiation for breast CA. No longer requiring meds ??? Malignancy breast left ??? Valvular heart disease heart murmur Surgical History: Past Surgical History: Procedure Laterality Date ??? BIOPSY BREAST ??? Breast Lumpectomy Left 09/04/2015 With sentinel node biopsy performed by Dr. Brittni Knight ??? Section 05/1990 ??? Cholecystectomy, Laparoscopic N/A 12/05/2020 N/A; LAPAROSCOPIC CHOLECYSTECTOMY ??? COLONOSCOPY N/A 09/18/2020 N/A; COLONOSCOPY SCREEN---extended prep with Cheesman ??? Dilation and Curettage twice [facility] Status: No LMP recorded. Patient is postmenopausal. Postmenopausal OB History Para Term AB Living 3 0 0 0 0 0 SAB IAB Ectopic Multiple Live Births 0 0 0 0 0 # Outcome Date GA Lbr Fabiano/2nd Weight Sex Delivery Anes PTL Lv 3 2 1 Covid Vaccine: Lab Results: Recent Labs Component Name 01/22/22 1015 WBC 5.3 RBC 4.01 HCT 36.6 HGB 12.1 PLTCOUNT 178 MCV 91.3 MCH 30.2 MCHC 33.1 MPV 11.2 Recent Labs Component Name 01/22/22 1015 BLOODUA 1+* WBCUA 0-5 NITRITEUA Negative PROTEINUA Negative Recent Labs Component Name 01/22/22 1015 SODIUM 139 POTASSIUM 3.8 CALCIUM 9.4 CHLORIDE 107 CO2 21* GLUCOSE 91 BUN 20 CREATININE 1.15* No results found for requested labs within last 120 days. Recent Labs Result Component Current Result Albumin 4.1 (01/22/2022) Alkaline Phosphatase 67 (01/22/2022) ALT 36 (01/22/2022) Anion Gap 11 (01/22/2022) AST 51 (H) (01/22/2022) Bilirubin Total 0.5 (01/22/2022) eGFR by CKD-EPI 56 (L) (01/22/2022) documented in this encounter Procedure Notes * Arabella Dunbar, COMMERCIAL LOAN SPECIALIST-ACTIVITIES COUNSELOR - 02/01/2022 7:41 AM CDTAssociated Order(s): ETT Placement Endotracheal Tube Placement: Patient Location: OR. Intubation Event Date/Time: 02/01/2022 7:30 AM Procedure: intubation (46890). Procedure Section: Sedation: IV sedation. Indications for Airway Management: airway protection Induction: standard IV Patient Position: sniffing Mask Ventilation: easy. Blade Type: Oglesby Blade [...] ETT in proper place. Tube secured with: adhesive tape. Procedure Start Time: 02/01/2022 7:30 AM. Staff Section Anesthesia Provider: Arabella Dunbar APRN-CRNA, Performed the procedure Provider #1: Arielle Brandt MD. Additional Comments: DL times 1, OETT placed atraumatically . * Arielle Brandt MD - 02/01/2022 7:00 AM CDTAssociated Order(s): Peripheral Nerve Block Peripheral Nerve Block Procedure: Peripheral Nerve Block Patient Location: Pre-op Preprocedure Section: Indications: at surgeon's request, at patient's request and postop pain management. Pre-anesthetic Checklist: Patient identified, IV Checked, Site examined and clear, Risks and benefits discussed, Surgical consent verified, Monitors and equipment, Time-out performed, Informed consent obtained, Pre-op evaluation done, Questions answered/anesthesia questions answered, Allergies reviewed and Removal hand/wrist jewelry Monitors: BP and Pulse Ox. Patient Condition: sedated, meaningful contact maintained throughout procedure Patient Position: supine Patient Sedated? Yes Sedation Type: mild Sedation Agents: midazolam (VERSED) injection, 2 mg Procedure Section Laterality: left Block Performed: adductor canal Prep: Chloraprep Strerile Field: gloves, mask and hat/cap Skin localized with: lidocaine (XYLOCAINE) 1 % injection, 1 mL Needle Type: Echogenic insultaed Needle Gauge: 21 Needle Length: 50 mm Catheter? No Ultrasound Guided? Yes Technique: in plane Visualization: Preliminary scan performed, Important anatomical structures identified, Needle tip visualized throughout the procedure, Target identified, No intraneural or intravascular puncture occurred, Ultrasound image in chart, Local visualized surrounding nerve on ultrasound and Hydrodissection utilized Injection was made incrementally with constant monitoring and aspirations every 5 mL's Injection Assessment: Slow fractionated injection Block Agents or Additives used? Yes Block agents used: ropivacaine (NAROPIN) 5 MG/ML (0.5%) injection, 30 mL Procedure Tolerance: tolerated well Assessment: completed Procedure Start Time: 02/01/2022 7:00 AM. Procedure End Time: 02/01/2022 7:05 AM. Procedure Total Time: 5 minutes. Staff Section Anesthesia Provider: Arielle Brandt MD, Performed the procedure documented in this encounter Miscellaneous Notes * Anesthesia Transfer of Care - Arabella Dunbar APRN-ACTIVITIES COUNSELOR - 02/01/2022 9:22 AM CDT ANESTHESIA TRANSFER OF CARE NOTE Today's Date: 02/01/2022 Date of : 1965 Patient: Milagros Torres Procedure(s): TOTAL KNEE ARTHROPLASTY Surgeon(s): Primary: Kevin Britton MD Preop Diagnosis: Pre-op Diagnois: * Diagnosis unknown [R69] Pre-op Meds (From admission, onward) Start Stop Status Route Frequency Ordered 02/01/22 0545 acetaminophen (Tylenol) tablet 1,000 mg 02/01 0616 Completed PO ONCE 02/01/22 0542 02/01/22 0600 ceFAZolin (Ancef) 2,000 mg in 50 ml IVPB 02/01 0736 Completed IV PRE-OP ONCE 02/01/22 0547 02/01/22 0600 celecoxib (CeleBREX) capsule 100 mg 02/01 0617 Completed PO PRE-OP ONCE 02/01/22 0547 02/01/22 0740 dexAMETHasone (Decadron) injection -- Sent IV PRN 02/01/22 0745 02/01/22 0723 dexmedeTOMIDine (Precedex) injection -- Sent IV PRN 02/01/22 0745 02/01/22 0740 diphenhydrAMINE (Benadryl) injection -- Sent IV PRN 02/01/22 0746 02/01/22 0917 diphenhydrAMINE (Benadryl) injection 25 mg -- Verified IV ONCE PRN 02/01/22 0917 02/01/22 0747 ePHEDrine injection -- Sent IV PRN 02/01/22 0748 02/01/22 0729 esmolol (Brevibloc) injection -- Sent IV PRN 02/01/22 0743 02/01/22 0806 fentaNYL (PF) (Sublimaze) injection -- Sent IV PRN 02/01/22 0847 02/01/22 0917 fentaNYL (PF) (Sublimaze) injection 50 mcg -- Verified IV EVERY 5 MIN PRN 02/01/22 0917 02/01/22 0630 gentamicin (Garamycin) 180 mg in 0.9% NaCl IV 100 mL IVPB 02/01 0702 Completed IV PRE-OP ONCE 02/01/22 0547 02/01/22 0723 gentamicin (Garamycin) injection -- Sent IM PRN 02/01/22 0747 02/01/22 0917 HYDROmorphone (Dilaudid) injection 0.5 mg -- Verified IV EVERY 15 MIN PRN 02/01/22 0917 02/01/22 0917 HYDROmorphone (Dilaudid) injection 0.5 mg -- Verified IV EVERY 10 MIN PRN 02/01/22 0917 02/01/22 0747 ketamine (Ketalar) injection -- Sent IV PRN 02/01/22 0748 02/01/22 0847 ketorolac (Toradol) injection -- Sent IV PRN 02/01/22 0907 02/01/22 0600 lactated ringers infusion 02/01 0559 Verified IV CONTINUOUS 02/01/22 0547 02/01/22 0723 lactated ringers infusion -- Sent IV CONTINUOUS PRN 02/01/22 0749 02/01/22 0728 lidocaine HCl (PF) (Xylocaine MPF) 2 % injection -- Sent IV PRN 02/01/22 0742 02/01/22 0731 magnesium sulfate injection -- Sent IV PRN 02/01/22 0743 02/01/22 0917 naloxone (Narcan) injection 0.04 mg -- Verified IV POST-OP MULTIPLE 02/01/22 0917 02/01/22 0740 ondansetron (Zofran) injection -- Sent IV PRN 02/01/22 0745 02/01/22 0917 ondansetron (Zofran) injection 4 mg -- Verified IV ONCE PRN 02/01/22 0917 02/01/22 0728 propofol (Diprivan) injection -- Sent IV PRN 02/01/22 0742 02/01/22 0723 rocuronium (Zemuron) injection -- Sent IV PRN 02/01/22 0748 02/01/22 0907 sugammadex (Bridion) injection -- Sent IV PRN 02/01/22 0907 02/01/22 0600 tranexamic acid (Cyklokapron) 1,000 mg in 0.9% NaCl IV 110 mL bolus 02/01 0740 Completed IV PRE-OP ONCE 02/01/22 0547 02/01/22 0600 tranexamic acid (Cyklokapron) 1,000 mg in 0.9% NaCl IV 110 mL bolus 02/01 1759 Verified IV ONCE 02/01/22 0547 Post-op Diagnosis: * Diagnosis unknown [R69] . No Known Allergies Vitals: No data found. Lines, Drains, and Airways Type Details Placement Removal Peripheral IV Date: 02/01/22; Time: 630; Orientation: Right; Location: Antecubital; Placed By: Mary Alice BENNETT; Gauge: 20 Gauge; Locals: None; Tolerance: Well 02/01/22 0631 by Cindy Charles RN ETT Date: 02/01/22; Time: 729; Placed By: VIRAJ Hickey; Vent: easy mask; Induction: Standard IV; Blade Type: Oglesby; Blade Size: 2; Laryngoscopy View: Grade 1 (full cords); Tube: Endotracheal Tube; Placement: Oral; Tube Type: Cuffed-inflated; Tube Size(mm): 7 MM; Depth of Insertion: 21 CM; Measured From: lips; Attempts: 1; Cuff Infated: Air; Verified By: Direct visualization, Bilateral breath sounds, Chest Auscultation, CO2 Monitor 02/01/22 0730 by Arabella Dunbar APRN-CRNA 02/01/22 09 by Arabella Dunbar APRN-CRNA Intraprocedure I/O Totals Intake lactated ringers infusion 1000.00 mL Total Intake 1000 mL Patient Transfer Location: PACU Transport Airway: supplemental O2 and spontaneous respirations Complications: None Handoff Given? Yes [...] of report from the receiving PACUteam. VIRAJ Hickey documented in this encounter Plan of Treatment Upcoming Encounters Date Type Department Care Team (Late st Contact Info) Description 06/02/2024 10:30 AM GEAR HOBBER SET UP OPERATOR Office Visit [facility] - Orthopedic Surgery [address] [place] [phone] Kevin Britton MD [address] [place] [address] 08/10/2024 1:00 PM CDT Office Visit [facility] - [facility] [address] [facility] [address] [place] [phone] Daja Mir MD [address] [place] [address] 10/26/2024 1:00 PM CDT Office Visit [facility] - Hematology/Oncology [address] [place] [phone] Elizabeth Garcia MD [address] [facility] [address] [place] [address] 01/17/2025 12:30 PM CDT Procedure visit [facility] - GI [address] [facility] [place] [address] 01/17/2025 1:00 PM CDT Office Visit [facility] - GI [address] [facility] [place] [address] Marlena Mccoy, COMMERCIAL LOAN SPECIALIST-COMPOUNDING PHARMACY TECHNICIAN [address] [place] [address] [facility] [place] [address] documented as of this encounter Goals Goal Patient Goal Type Associated Problems Recent Progress Patient-Stated? Author Mobility General On track( 021 9:08 AM GEAR HOBBER SET UP OPERATOR) No Tika Pope, SABRINA Note: Expected [...] Procedure Name Priority Date/Time Associated Diagnosis Comments ENDOTRACHEAL TUBE NOTE Routine 02/01/2022 7:30 AM CDT PERIPHERAL BLOCK Routine 02/01/2022 7:00 AM CDT documented in this encounter Results * ETT LINE PERFORMABLE (02/01/2022 7:30 AM CDT) Narrative Arabella Dunbar APRN-ACTIVITIES COUNSELOR - 02/01/2022 7:30 AM CDT Arabella Dunbar APRN-CRNA ? 02/01/2022 ??7:42 AM Endotracheal Tube Placement: ? Patient Location: OR. Intubation Event Date/Time: ??02/01/2022 7:30 AM Procedure: intubation (85073). Procedure Section: ?? Sedation: IV sedation. Indications [...] 7:30 AM. Staff Section ? Anesthesia Provider: Arabella Dunbar, COMMERCIAL LOAN SPECIALIST-ACTIVITIES COUNSELOR, Performed the procedure ? Provider #1: Arielle [...] Arielle Brandt MD GENERAL ANESTHESIA O RDERABLES documented in this encounter Visit Diagnoses Not on filedocumented in this encounter Administered Medications Inactive Administered Medications - up to 3 most recent administrations Medication Order MAR Action Action Date Dose Rate Site ceFAZolin (Ancef) 2,000 mg in 50 ml IVPB 2,000 mg (2 g), at 100 mL/hr, Intravenous, PRE-OP ONCE, 1 dose, On Fri02/01/22 at 0600, Indication for anti-infective therapy: Surgical prophylaxis $ Given 02/01/2022 7:36 AM CDT 2 g $ Given 02/01/2022 7:23 AM CDT 2 g dexAMETHasone (Decadron) injection Intravenous, PRN, Starting on Fri02/01/22 at 0740, Until Fri02/01/22 at 0922, Anesthesia Intra-op $ Given 02/01/2022 7:40 AM CDT 8 mg dexmedeTOMIDine (Precedex) injection Intravenous, PRN, Starting on Fri02/01/22 at 0723, Until Fri02/01/22 at 0922, Anesthesia Intra-op $ Given 02/01/2022 8:52 AM CDT 10 mcg $ Given 02/01/2022 8:30 AM CDT 10 mcg $ Given 02/01/2022 8:00 AM CDT 10 mcg diphenhydrAMINE (Benadryl) injection Intravenous, PRN, Starting on Fri02/01/22 at 0740, Until Fri02/01/22 at 09, Anesthesia Intra-op $ Given 02/01/2022 7:40 AM CDT 25 mg ePHEDrine injection Intravenous, PRN, Starting on Fri02/01/22 at 0747, Until Fri02/01/22 at 09, Anesthesia Intra-op $ Given 02/01/2022 7:47 AM CDT 5 mg $ Given 02/01/2022 7:38 AM CDT 10 mg esmolol (Brevibloc) injection Intravenous, PRN, Starting on Fri02/01/22 at 0729, Until Fri02/01/22 at 921, Anesthesia Intra-op $ Given 02/01/2022 7:29 AM CDT 40 mg fentaNYL (PF) (Sublimaze) injection Intravenous, PRN, Starting on Fri02/01/22 at 0806, Until Fri02/01/22 at 921, Anesthesia Intra-op $ Given 02/01/2022 9:10 AM CDT 25 mcg $ Given 02/01/2022 8:45 AM CDT 25 mcg $ Given 02/01/2022 8:06 AM CDT 50 mcg gentamicin (Garamycin) injection Intramuscular, PRN, Starting on Fri02/01/22 at 0723, Until Fri02/01/22 at 09, Anesthesia Intra-op $ Given 02/01/2022 7:23 AM CDT 180 mg ketamine (Ketalar) injection Intravenous, PRN, Starting on Fri02/01/22 at 0747, Until Fri02/01/22 at 09, Anesthesia Intra-op $ Given 02/01/2022 8:45 AM CDT 25 mg $ Given 02/01/2022 7:47 AM CDT 25 mg ketorolac (Toradol) injection Intravenous, PRN, Starting on Fri02/01/22 at 0847, Until Fri02/01/22 at 09, Anesthesia Intra-op $ Given 02/01/2022 8:47 AM CDT 30 mg lactated ringers infusion Intravenous, CONTINUOUS PRN, Starting on Fri02/01/22 at 0723, Until Fri02/01/22 at 0922, Anesthesia Intra-op $ New Bag/Syringe 02/01/2022 8:47 AM CDT $ New Bag/Syringe 02/01/2022 7:23 AM CDT lidocaine (Xylocaine) 1 % injection Infiltration, Starting on Fri02/01/22 at 0700, Until Fri02/01/22 at 0959, Anesthesia Intra-op $ Given 02/01/2022 7:00 AM CDT 1 mL lidocaine HCl (PF) (Xylocaine MPF) 2 % injection Intravenous, PRN, Starting on Fri02/01/22 at 0728, Until Fri02/01/22 at 0922, Anesthesia Intra-op $ Given 02/01/2022 7:28 AM CDT 100 mg magnesium sulfate injection Intravenous, PRN, Starting on Fri02/01/22 at 0731, Until Fri02/01/22 at 09, Anesthesia Intra-op $ Given 02/01/2022 7:31 AM CDT 2 g midazolam (Versed) injection Intravenous, Starting on Fri02/01/22 at 0700, Until Fri02/01/22 at 0959, Anesthesia Intra-op $ Given 02/01/2022 7:00 AM CDT 2 mg ondansetron (Zofran) injection Intravenous, PRN, Starting on Fri02/01/22 at 0740, Until Fri02/01/22 at 0922, Anesthesia Intra-op $ Given 02/01/2022 7:40 AM CDT 4 mg propofol (Diprivan) injection Intravenous, PRN, Starting on Fri02/01/22 at 0728, Until Fri02/01/22 at 0922, Anesthesia Intra-op $ Given 02/01/2022 7:28 AM CDT 50 mg rocuronium (Zemuron) injection Intravenous, PRN, Starting on Fri02/01/22 at 0723, Until Fri02/01/22 at 0922, Anesthesia Intra-op $ Given 02/01/2022 7:23 AM CDT 50 mg ropivacaine (Naropin) 5 MG/ML (0.5%) injection Infiltration, Starting on Fri02/01/22 at 0700, Until Fri02/01/22 at 0959, Anesthesia Intra-op $ Given 02/01/2022 7:00 AM CDT 30 mL sugammadex (Bridion) injection Intravenous, PRN, Starting on Fri02/01/22 at 0907, Until Fri02/01/22 at 0922, Anesthesia Intra-op $ Given 02/01/2022 9:07 AM CDT 200 mg tranexamic acid (Cyklokapron) 1,000 mg in 0.9% NaCl IV 110 mL bolus 1,000 mg, at 220 mL/hr, Intravenous, PRE-OP ONCE, 1 dose, On Fri02/01/22 at 0600, Give 1 gram of TXA prior to surgical incision, give the remaining 1 gram TXA during closure of the surgical wound, or two hours after the first dose, whichever occurs first. Do not inject more rapidly than 1 mL/min to avoid hypotension. $ Bolus New Bag 02/01/2022 7:45 AM CDT 1,000 mg $ New Bag/Syringe 02/01/2022 7:40 AM CDT 1,000 mg documented in this encounter Care Teams Preschool Assistant Director Relationship Specialty Start Date End Date Willis Veras MD [address] [place] [address] PCP - General 05/03/21 Cole Ku MD [address] [place] [address] General Surgery 11/10/20 documented as of this encounter
--- OUTSIDE RECORDS SUMMARY | 2024-04-25 14:02 | XMS_ITS | Encounter Summary ---
Author Organization [facility] Health Address [address] [facility] [place] [address] Care Team Providers Care Tourist Agent Name Role Phone Cole Ku MD Unavailable Willis Veras MD Primary Care Provider Reason for Visit * Reason Comments Refill Request Encounter Details Date Type Department Care Team (Late st Contact Info) Description 02/15/2022 Refill HC 2 ORTHO/NEW VIS [address] [place] [address] Ean Tabares IV, MD [facility]5 [facility] ORTHOPEDICS [place], [place] [phone] Refill Request Social History Tobacco Use Types [...] st Contact Info) Description 06/02/2024 10:30 AM SOCIAL ECONOMIST Office Visit [facility] - Orthopedic Surgery [address] [place] [phone] Kevin Britton MD 1031 [facility] 280 [place] [address] 08/10/2024 1:00 PM CDT Office Visit [facility] - DATABASE DESIGNER 1031 [facility] 400 [place] [address] Daja Mir MD 9844 [facility] [place] [address] 10/26/2024 1:00 PM CDT Office Visit [facility] - Hematology/Oncology 0827 [place] [phone] Elizabeth Garcia MD 7165 [facility] 3 [place] [address] 01/17/2025 12:30 PM CDT Procedure visit [facility] - GI [address] [place] [address], [place] [phone] 01/17/2025 1:00 PM CDT Office Visit [facility] - GI [address] [place] [address] [place] [phone] Darius Marlena N, FERMENTATION MANAGER-CONVERSION MAN 12[address] [facility] 3FL DIV OF GASTROENTEROLOGY [place], [place] [phone] documented as of this encounter Goals Goal Patient Goal Type Associated Problems Recent Progress Patient-Stated? Author Mobility General On track( 021 9:08 AM SOCIAL ECONOMIST) No Tika Pope, RN Note: Expected end [...] on filedocumented in this encounter Care Teams Tourist Agent Relationship Specialty Start Date End Date Willis Veras MD [address] [place] [address] PCP - General 05/03/21 Cole Ku MD 1225 [facility] 2L DIV [place] [address] General Surgery 11/10/20 documented as of this encounter
--- OUTSIDE RECORDS SUMMARY | 2024-04-25 14:02 | XMS_ITS | Encounter Summary ---
Author Organization [facility] Address [address] [facility] [place] [address] Care Team Providers Care Water Operator Name Role Phone Cole Ku MD Unavailable Willis Veras MD Primary Care Provider Reason for Visit * Reason Onset Date Comments MEDICATION REFILL 02/15/2022 Encounter Details Date Type Department Care Team (Late st Contact Info) Description 02/15/2022 Refill [facility] Orth[facility] 10[address] [place] [address] Danay Harrell, SCHOOL SERVICES OFFICER REFILL Social History Tobacco Use Types Packs/Day [...] st Contact Info) Description 06/02/2024 10:30 AM HEAT TREATER APPRENTICE Office Visit [facility] - Orthopedic Surgery [facility]1 [place] [phone] Kevin Britton MD 1031 [facility] 280 [place] [address] 08/10/2024 1:00 PM CDT Office Visit [facility] - STRAIGHT CUTTER MACHINE 1031 [facility] 400 [place] [address] Daja Mir MD 36[address] [place] [address] 10/26/2024 1:00 PM CDT Office Visit [facility] - Hematology/Oncology 3117 [place] [phone] Elizabeth Garcia MD 1151 [facility] 3 [place] [address] 01/17/2025 12:30 PM CDT Procedure visit [facility] - GI [address] [place] [phone] 01/17/2025 1:00 PM CDT [facility] [address] [place] [phone] Marlena Mccoy, TRAFFIC CHECKER-WELDING ESTIMATOR [address] DIV [place] [address] documented as of this encounter Goals Goal Patient Goal Type Associated Problems Recent Progress Patient-Stated? Author Mobility General On track( 021 9:08 AM HEAT TREATER APPRENTICE) No Tika Pope, RN Note: Expected end [...] S/P TKR (total knee replacement), left- Primary Primary osteoarthritis of left knee Primary localized osteoarthrosis, lower leg documented in this encounter Care Teams Water Operator Relationship Specialty Start Date End Date Willis Veras MD [address] [place] [address] PCP - General 05/03/21 Cole Ku MD [address] [place] [address] General Surgery 11/10/20 documented as of this encounter
--- OUTSIDE RECORDS SUMMARY | 2024-04-25 14:02 | XMS_ITS | Encounter Summary ---
Author Organization [facility] Address [address] [place], [place] [address] [address] Care Team Providers Care Vice President For Instruction Name Role Phone Cole Ku MD Unavailable Willis Veras MD Primary Care Provider Reason for Referral * Radiology Services (Routine) - Closed Specialty Diagnoses / Procedures Referred By Americo peters Referred To Contact Hematology-Oncology Diagnoses Encounter for monitoring tamoxifen therapy History of breast cancer Procedures MAMMO BILAT SCREENING W Araseli Hale MD [address] [place] [address] Referral ID Status Reason Start Date Expiration Date Visits Re quested Visits Authorized [id number] Closed 10/24/2022 10/24/2023 1 1 ICAL THERAPIST Reason for Visit * Reason Comments Personal History of Breast Cancer Encounter Details Date Type Department Care Team (Late st Contact Info) Description 03/20/2022 10:20 AM PHYSICAL THERAPIST Office Visit [facility] [address] [place] [address] Araseli Byers MD [address] [place] [address] History of breast cancer (Primary Dx); Encounter for monitoring tamoxifen therapy Social History Tobacco Use Types Packs/Day Years [...] Sign Reading Time Taken Comments Blood Pressure 133/86 03/20/2022 10:54 AM PHYSICAL THERAPIST Pulse 83 03/20/2022 10:54 AM PHYSICAL THERAPIST Temperature 36.7 ??C (98 ??F) 03/20/2022 10:54 AM PHYSICAL THERAPIST Respiratory Rate 26 03/20/2022 10:54 AM PHYSICAL THERAPIST Oxygen Saturation 97% 03/20/2022 10:54 AM PHYSICAL THERAPIST Inhaled Oxygen Concentration - - Weight 92.1 kg (203 lb) 03/20/2022 10:54 AM PHYSICAL THERAPIST Height 170.2 cm (5' 7 ) 03/20/2022 10:54 AM PHYSICAL THERAPIST Body Mass Index 31.79 03/20/2022 10:54 AM PHYSICAL THERAPIST documented in this encounter Functional Status Functional [...] Progress Notes * Araseli Byers MD - 03/20/2022 10:37 AM CST Oncology/ Hematology [place]: Main Diagnosis: Stage I left breast cancer 2015.. pT1N0.. Active Treatment: Tamoxifen Prior treatment: Left lumpectomy. September 2015. Adjuvant radiation Molecular Feature: ER/DC positive and HER2 negative. Oncotype DX recurrence score 17 Interval History: Milagros Torres was last seen in clinic 6 months ago. She has ER/DC positive HER2 negative left breast cancer 2016. Stage I. Oncotype DX recurrence score17. No adjuvant chemotherapy. Has been on tamoxifen for more than 6 years now. Clinically, the patient seems doing quite well. She had bilateral knee replacement 2 months ago. Recovered quite well. Continues on the tamoxifen. No thromboembolic events. No vaginal bleeding or discharge.. She had a negative mammography in October 2021. Performance Status: ECOG 0-1 Current Medications: Current Outpatient Medications Medication Sig Dispense Refill ??? acetaminophen (TYLENOL) 500 MG tablet Take 1 (one) tablet by mouth every 6 hours as needed for Fever or Pain Maximum allowable Acetaminophen amount = 4 Grams (4000 mg) / 24 hours. 40 tablet 0 ??? aspirin (Aspirin) 81 MG chew tablet Take 1 (one) tablet by mouth 2 times daily 60 tablet 0 ??? calcium 600 MG tablet Take 1 tablet by mouth daily with food 90 tablet 2 ??? celecoxib (CeleBREX) 50 MG capsule Take 2 (two) capsules by mouth once daily 60 capsule 0 ??? famotidine (Pepcid) 20 MG tablet Take 1 (one) tablet by mouth 2 times daily 60 tablet 0 ??? HYDROcodone-acetaminophen (Concord) 5-325 MG tablet Take 1 (one) tablet by mouth every 6 hours asneeded for Pain 28 tablet 0 ??? losartan - hydroCHLOROthiazide (Hyzaar) 50-12.5 MG tablet Take 1 tablet by mouth once daily ??? polyethylene glycol 3350 (MiraLax) 17 g packet Take by mouth once daily ??? tamoxifen (NOLVADEX) 20 MG tablet TAKE 1 TABLET BY MOUTH EVERY DAY 30 tablet 6 ??? Vitamin D3, cholecalciferol, 50 MCG (2000 [...] commented in the interval history. Physical Examination: There were no vitals taken for this visit. -GENERAL: Alert and oriented x 3. No [...] and affect Lab: Recent Labs Component Name 02/02/22 0158 01/22/22 1015 08/06/21 1049 WBC - 5.3 6.8 HGB 9.1* 12.1 13.0 HCT 27.7* 36.6 39.2 MCV - 91.3 91.0 Recent Labs Component Name 01/22/22 1015 08/06/21 1049 01/15/21 1023 CALCIUM 9.4 9.6 9.4 PROT - 7.3 7.2 ALB - 3.7 3.6 Recent Labs Component Name 01/22/22 1015 08/06/21 1049 01/15/21 1023 NA - 144 141 CL - 108* 109* CO2 21* 24 22 BUN 20 17 8 CREATININE 1.15* 1.02* 0.92 Recent Labs Component Name 01/22/22 1015 08/06/21 1049 01/15/21 1023 11/27/20 0947 PROT - 7.3 7.2 6.9 ALB - 3.7 3.6 3.5 ALKPHOS 67 71 78 69 AST 51* 30 27 34 ALT 36 24 18 32 TBILI - 0.4 0.4 0.3 Recent Labs Component Name 05/12/20 1028 PT 12.6 INR 1.0 No results for input(s): CKTOTAL, CKMBCK2, TROPONINI in the last 05243 hours. No results found for: PSA No results found for: CEA No results found for: LDH Imaging: Bilateral screening mammography October 2021 Negative.. Assessment and Plan: 1. Stage I, node-negative, ER/DC positive HER2 negative left breast cancer. Oncotype DX recurrence score 17. 6-1/2 years since the lumpectomy. On tamoxifen. No signs of recurrent disease. 2. The patient was premenopausal at the time of diagnosis. Continued on the tamoxifen. Had vaginal bleed/D&C twice before. Had bilateral knee replacement recently and no thromboembolic events. 3. Discussed with patient again regarding the benefit and risks of continuing tamoxifen treatment. Anatomically, she has no risk disease. Even though, Oncotype DX recurrence score was 17, 7 years endocrine therapy should be sufficient. The patient understand agreed. She knows to stop tamoxifen if she developed the vaginal bleeding again. 4. I schedule patient be back again in October 2022. I arrange another screening mammography. She may stop tamoxifen afterwards. Araseli Byers MD Hematology/Oncology Attending ICAL THERAPIST documented in this encounter Plan of Treatment Upcoming Encounters Date Type Department Care Team (Late st Contact Info) Description 06/02/2024 10:30 AM PHYSICAL THERAPIST Office Visit [facility] - Orthopedic Surgery 1031 [place] [phone] Kevin Britton MD 1031 [facility] 280 [place] [address] 08/10/2024 1:00 PM CDT Office [facility] - PORTABLE MACHINE SANDER 1031 [facility] 400 [place] [address] Daja Mir MD 2271 [facility] [place] [address] 10/26/2024 1:00 PM CDT Office Visit [facility] - Hematology/Oncology 3651 [place] [phone] Elizabeth Garcia MD 3666 [facility] 3 [place] [address] 01/17/2025 12:30 PM CDT Procedure [facility] [place] [address] [place] [address], [place] [address] 01/17/2025 1:00 PM CDT Office Visit [facility] - GI [address] [place] [address], [place] [phone] Marlena Mccoy, DIRECTOR OF ARCHITECTURE-CASTING MACHINE CONTROL BOARD OPERATOR [address] [place] [address] [place] [address] documented as of this encounter Goals Goal Patient Goal Type Associated Problems Recent Progress Patient-Stated? Author Mobility General On track( 021 9:08 AM PHYSICAL THERAPIST) No Tika Pope, RN Note: Expected [...] documented as of this encounter Results * VITAMIN D 25-HYDROXY (10/21/2022 12:03 PM CDT) Vitamin D, 25 Hydroxy 44.0 30.0 - 80.0 ng/mL 10/21/2022 12:52 PM CDT [facility] Comment: The recommendations for 25-Hydroxy Vitamin [...] Byers MD LAB - CHEMISTRY LD [place] [facility] Organization Address [facility] Co de Phone Number [facility] [address] [place] [address], [facility] [phone] * (ABNORMAL) COMPREHENSIVE METABOLIC PANEL (10/21/2022 12:03 PM CDT) BUN 16 7 - 26 mg/dL 10/21/2022 12:34 PM CDT [facility] Creatinine 0.96 0.56 - 0.96 mg/dL 10/21/2022 12:34 PM CDT [facility] Sodium 139 136 - 145 mmol/L 10/21/2022 12:34 PM CDT [facility] Potassium 3.8 3.5 - 4.5 mmol/L 10/21/2022 12:34 PM CDT [facility] Chloride 107 98 - 107 mmol/L 10/21/2022 12:34 PM [facility] CO2 27 22 - 29 mmol/L 10/21/2022 12:34 PM [facility] Glucose 95 70 - 115 mg/dL 10/21/2022 12:34 PM [facility] Calcium 9.3 8.4 - 10.2 mg/dL 10/21/2022 12:34 PM [facility] Protein Total 7.1 6.0 - 8.3 g/dL 10/21/2022 12:34 PM [facility] Albumin 3.7 3.4 - 5.0 g/dL 10/21/2022 12:34 PM [facility] Bilirubin Total 0.3 0.2 - 1.2 mg/dL 10/21/2022 12:34 PM [facility] Alkaline Phosphatase 77 40 - 150 U/L 10/21/2022 12:34 PM [facility] ALT 80(H) 5 - 55 U/L 10/21/2022 12:34 PM [facility] AST 102(H) 5 - 34 U/L 10/21/2022 12:34 PM [facility] Anion Gap 9 8 - 18 10/21/2022 12:34 PM [facility] BUN/Creatinine Ratio 17 7 - 23 10/21/2022 12:34 PM [facility] Osmolality Calculated 289 270 - 300 mOsm/kg 10/21/2022 12:34 PM [facility] Albumin/Globulin Ratio 1.1 1.1 - 2.3 10/21/2022 12:34 PM [facility] eGFR by CKD-EPI 69(L) >=90 mL/min/1.7 3 m2 10/21/2022 12:34 PM [facility] Blood BLOOD SPECIMEN / Unknown Lab Venipuncture / Unknown 10/21/2022 12:03 PM CDT 10/21/2022 12:07 PM [facility] Araseli Byers MD LAB - CHEMISTRY LD [place] [facility] Organization Address City/State/ZIP Co de Phone Number [facility] [address] [place] [address], [facility] [phone] * (ABNORMAL) CBC WITH DIFFERENTIAL (10/21/2022 12:03 PM [facility]) WBC 5.8 3.5 - 10.5 10? 3 /uL 10/21/2022 12:11 PM [facility] RBC 4.00 3.80 - 5.20 10? 6 /uL 10/21/2022 12:11 PM [facility] Hemoglobin 12.0 12.0 - 15.6 g/dL 10/21/2022 12:11 PM [facility] Hematocrit 35.9 35.0 - 45.0 % 10/21/2022 12:11 PM [facility] MCV 89.8 80.7 - 98.3 fL 10/21/2022 12:11 PM [facility] MCH 30.0 26.7 - 34.0 pg 10/21/2022 12:11 PM [facility] MCHC 33.4 30.8 - 35.9 g/dL 10/21/2022 12:11 PM [facility] RDW-SD 41.9 36.0 - 50.0 fL 10/21/2022 12:11 PM [facility] RDW-CV 12.7 11.2 - 14.8 % 10/21/2022 12:11 PM [facility] Platelet Count 163 150 - 400 10? 3 /uL 10/21/2022 12:11 PM [facility] MPV 11.1 9.4 - 12.9 fL 10/21/2022 12:11 PM [facility] nRBC Absolute 0.00 0 10? 3 /uL 10/21/2022 12:11 PM [facility] nRBC Auto 0.0 0 /100 WBC 10/21/2022 12:11 PM [facility] Neutrophils % 45.1 35.0 - 70.0 % 10/21/2022 12:11 PM [facility] Lymphocytes % 43.7(H) 20.0 - 43.0 % 10/21/2022 12:11 PM [facility] Monocytes % 7.0 5.0 - 13.0 % 10/21/2022 12:11 PM [facility] Eosinophils % 3.6 0.0 - 6.0 % 10/21/2022 12:11 PM CDT [facility] Basophil % 0.3 0.0 - 2.0 % 10/21/2022 12:11 PM CDT [facility] Neutrophils Absolute 2.62 1.60 - 7.00 10? 3 /uL 10/21/2022 12:11 PM CDT [facility] Lymphocyte Absolute 2.55 1.10 - 3.90 10? 3 /uL 10/21/2022 12:11 PM CDT [facility] Monocytes Absolute 0.41 0.26 - 1.07 10? 3 /uL 10/21/2022 12:11 PM CDT [facility] Eosinophils Absolute 0.21 0.00 - 0.47 10? 3 /uL 10/21/2022 12:11 PM CDT [facility] Basophils Absolute 0.02 0.00 - 0.08 10? 3 /uL 10/21/2022 12:11 PM CDT [facility] Immature Granulocytes % 0.3 0.0 - 1.0 % 10/21/2022 12:11 PM CDT [facility] Immature Granulocytes Absolute 0.02 10/21/2022 12:11 PM CDT [facility] Blood BLOOD SPECIMEN / Unknown Lab Venipuncture / Unknown 10/21/2022 12:03 PM CDT 10/21/2022 12:06 PM CDT Araseli Byers MD LAB - HEMATOLOGY ORD ERABLES [facility] [address] [place] [address], [facility] [phone] * MAMMO BILAT SCREENING W [place] (10/21/2022 [...] SCREENING W [place] AND WITH CAD LOCATION: [facility] EXAM DATE: ??10/21/2022 HISTORY: ??Screening. Personal history [...] Personal history of malignant neoplasm of breast Encounter for monitoring tamoxifen therapy Encounter for therapeutic drug monitoring Encounter for monitoring tamoxifen therapy Encounter for therapeutic drug monitoring History of breast cancer Personal history of malignant neoplasm of breast documented in this encounter Care Teams Vice President For Instruction Relationship Specialty Start Date End Date Willis Veras MD [address] [place] [address] PCP - General 05/03/21 Cole Ku MD [address] [place] [phone] General Surgery 11/10/20 documented as of this encounter
--- OUTSIDE RECORDS SUMMARY | 2024-04-25 14:02 | XMS_ITS | Encounter Summary ---
Author Organization [facility] Address [address] [facility] [place] [address] Care Team Providers Care Buckle Attacher Name Role Phone Cole Ku MD Unavailable Willis Veras MD Primary Care Provider Reason for Visit * Reason Onset Date Comments MEDICATION REFILL 02/07/2022 Encounter Details Date Type Department Care Team (Late st Contact Info) Description 02/07/2022 Refill [facility] [address] [place] [address] Danay Harrell, ELECTROSTATIC POWDER COATING TECHNICIAN REFILL Social History Tobacco Use Types Packs/Day [...] st Contact Info) Description 06/02/2024 10:30 AM LABORER PULLET FARM Office Visit [facility] - Orthopedic Surgery [facility]1 [place] [phone] Kevin Britton MD 1031 [facility] 280 [place] [address] 08/10/2024 1:00 PM CDT Office Visit [facility] - SOCIAL MEDIA INTERN 1031 [facility] 400 [place] [phone] Daja Mir MD 2[address] [place] [address] 10/26/2024 1:00 PM CDT Office Visit [facility] - Hematology/Oncology 70[address] [place] [phone] Elizabeth Garcia MD 6988 [facility] 3 [place] [address] 01/17/2025 12:30 PM CDT Procedure visit [facility] - GI [address] [place] [phone] 01/17/2025 1:00 PM CDT [facility] [address] [place] [phone] Marlena Mccoy, INSIDE WIRER-BRICKMASON [address] [place] [address] documented as of this encounter Goals Goal Patient Goal Type Associated Problems Recent Progress Patient-Stated? Author Mobility General On track( 021 9:08 AM LABORER PULLET FARM) No Tika Pope, RN Note: Expected end [...] Primary documented in this encounter Care Teams Buckle Attacher Relationship Specialty Start Date End Date Willis Veras MD [address] [place] [address] PCP - General 05/03/21 Cole Ku MD [address] [place] [address] General Surgery 11/10/20 documented as of this encounter
--- OUTSIDE RECORDS SUMMARY | 2024-04-25 14:02 | XMS_ITS | Encounter Summary ---
Author Organization [facility] Address [address] [facility] [place] [address] Care Team Providers Care Windows Vmware Engineer Name Role Phone Cole Ku MD Unavailable Willis Veras MD Primary Care Provider Reason for Visit * Reason Comments Pain Knee Encounter Details Date Type Department Care Team (Late st Contact Info) Description 03/05/2022 8:45 AM CDT Office Visit [facility] Orthopedic Surgery 1031 [place], [place] [phone] Kevin Britton MD [address] [phone] S/P TKR (total knee replacement), left (Primary [...] Progress Notes * Kevin Britton MD - 03/05/2022 8:45 AM CDT Patient returns for follow-up of left total knee arthroplasty 1 month ago. Overall patient is doingwell. Denies fevers chills or wound problems. Denies mechanical symptoms. Has been doing home physical therapy. Continues to take aspirin for DVT prophylaxis. Physical exam: Examination of the left knee reveals a well-healed scar without signs of infection. left knee has a couple degrees short of full extension with no extension lag and the patient can flex past 100 degrees. left knee is stable to varus [...] We will see the patient back in 3 months. Continue range of motion and strengthening exercises which we discussed and had the patient demonstrate in the clinic today. We discussed antibiotic prophylaxis before invasive procedures. Okay to stop DVT prophylaxis. May drive if not taking pain medication. Patient understood the treatment plan and all questions were answered. documented in this encounter Plan of Treatment Upcoming Encounters Date Type Department Care Team (Late st Contact Info) Description 06/02/2024 10:30 AM BALANCE ASSEMBLER Office Visit [facility] - Orthopedic Surgery 10[address] [place] [phone] Kevin Britton MD 1031 [facility] 280 [place] [address] 08/10/2024 1:00 PM CDT Office Visit [facility] - TIME STUDY TECHNOLOGIST 1031 [facility] 400 [place] [phone] Daja Mir MD 5708 [facility] [address] 10/26/2024 1:00 PM CDT Office Visit [facility] - Hematology/Oncology 365[address] [place] [phone] Elizabeth Garcia MD [address] [facility] 3 [place] [address] 01/17/2025 12:30 PM CDT Procedure visit [facility] - GI [address] [place] [address], [place] [phone] 01/17/2025 1:00 PM CDT Office Visit [facility] - GI [address] [place] [address], [place] [phone] Marlena Mccoy, ORNAMENTAL METAL FABRICATOR APPRENTICE-FREIGHT SERVICE INSPECTOR [address] [place] [address] [place] [address] documented as of this encounter Goals Goal Patient Goal Type Associated Problems Recent Progress Patient-Stated? Author Mobility General On track( 021 9:08 AM BALANCE ASSEMBLER) No Tika Pope, RN Note: Expected end [...] Primary documented in this encounter Care Teams Windows Vmware Engineer Relationship Specialty Start Date End Date Willis Veras MD [address] [place] [address] PCP - General 05/03/21 Cole Ku MD [address] [place] [address] General Surgery 11/10/20 documented as of this encounter
--- OUTSIDE RECORDS SUMMARY | 2024-04-25 14:02 | XMS_ITS | Encounter Summary ---
Author Organization [facility] Address [address] [place] [address] Care Team Providers Care Stenciling Machine Tender Name Role Phone Cole Ku MD Unavailable Willis Veras MD Primary Care Provider Encounter Details Date Type Department Care Team (Latest Contact Info) Description 03/05/2022 8:45 AM CDT - 03/05/2022 11:59 PM CDT Hospital Encounter [facility] - Orthopedics [address], [address] [place] [address] Kevin Britton MD [address] [place], [place] [phone] Discharge Disposition: Home or Self Care Social [...] / 24 hours. 40 tablet 02/01/2022 3 aspirin (Aspirin) 81 MG chew tablet Take 1 (one) tablet by mouth 2 times daily 60 tablet 02/01/2022 2 celecoxib (CeleBREX) 50 MG capsuleIndications:S/P TKR (total knee replacement), left,Primary osteoarthritis of left knee Take 2 (two) capsules by mouth once daily 60 capsule 02/15/2022 3 famotidine (Pepcid) 20 MG tablet Take 1 (one) tablet by mouth 2 times daily 60 tablet 02/01/2022 2 HYDROcodone-acetaminophen ([place]) 5-325 MG tabletIndications:S/P TKR (total knee replacement), left Take 1 (one) tablet by mouth every 4 hours as needed for Pain 42 tablet 03/01/2022 2 polyethylene glycol 3350 (MiraLax) 17 g packet Take by mouth once daily 2 tamoxifen (NOLVADEX) 20 MG tabletIndications:Encount er for monitoring tamoxifen therapy,History of breast cancer TAKE 1 TABLET BY MOUTH EVERY DAY 30 tablet 6 08/13/2021 2 documented as of this encounter Plan of Treatment Upcoming Encounters Date Type Department Care Team (Late st Contact Info) Description 06/02/2024 10:30 AM CIVIL ENGINEERING TECHNICIAN Office Visit [facility] - Orthopedic Surgery [address] [place] [phone] Kevin Britton MD [address] [facility] [address] [place] [address] 08/10/2024 1:00 PM CDT Office Visit [facility] - VICE PRESIDENT UNDERWRITING [address] [facility] [address] [place] [phone] Daja Mir MD [address] [facility] [place] [address] 10/26/2024 1:00 PM CDT Office Visit [facility] - Hematology/Oncology [address] [place] [phone] Elizabeth Garcia MD [address] [facility] 3 [place] [address] 01/17/2025 12:30 PM CDT Procedure visit [facility] - GI [address] [place] [phone] 01/17/2025 1:00 PM CDT Office Visit [facility] - GI [address] [place] [phone] Marlena Mccoy, OPERATIONS WELDER-SPINNER FIXER [address] [place] [address] [facility] [place] [address] documented as of this encounter Goals Goal Patient Goal Type Associated Problems Recent Progress Patient-Stated? Author Mobility General On track( 021 9:08 AM CIVIL ENGINEERING TECHNICIAN) No Tika Pope, RN Note: Expected end [...] XR KNEE LEFT 4VW OR MORE Routine 03/05/2022 9:01 AM CDT S/P TKR (total knee replacement), left documented in this encounter Results * XR KNEE LEFT 4VW OR MORE (03/05/2022 9:01 AM CDT) Anatomical Region Laterality Modality Lower Extremity Radiographic Alena ging 03/05/2022 9:10 AM CDT Narrative 03/05/2022 9:10 AM CDT PROCEDURE: ??XR KNEE LEFT 4VW OR MORE, DATE/TIME OF EXAM: ??03/05/2022 9:01 AM, LOCATION ??[facility] INDICATION: Z96.652: Presence of left artificial [...] DATE/TIME OF EXAM: 03/05/2022 9:01 AM, LOCATION [facility] INDICATION: Z96.652: Presence of left artificial knee [...] left documented in this encounter Care Teams Stenciling Machine Tender Relationship Specialty Start Date End Date Willis Veras MD [address] [place] [address] PCP - General 05/03/21 Cole Ku MD [address] [facility] 2L DIV OF [facility] [place] [address] General Surgery 11/10/20 documented as of this encounter
--- OUTSIDE RECORDS SUMMARY | 2024-04-25 14:02 | XMS_ITS | Encounter Summary ---
Author Organization [facility] Address [address] [place] [address] Care Team Providers Care Emblem Fuser Tender Name Role Phone Cole Ku MD Unavailable Willis Veras MD Primary Care Provider Reason for Visit * Reason Onset Date Comments MEDICATION REFILL 02/21/2022 Encounter Details Date Type Department Care Team (Late st Contact Info) Description 02/21/2022 Refill [facility] [address] [place], [place] [phone] Kevin Britton MD 1031 [facility] [address] [place], [place] [phone] MEDICATION REFILL Social History Tobacco Use Types [...] st Contact Info) Description 06/02/2024 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 Office Visit [facility] - Orthopedic Surgery [address] [place] [phone] Kevin Britton MD [address] [facility] [address] [place] [address] 08/10/2024 1:00 PM CDT Office Visit [facility] - 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 [address] [facility] [address] [place] [phone] Daja Mir MD 570 [facility] [place] [address] 10/26/2024 1:00 PM CDT Office Visit [facility] - Hematology/Oncology [address] [place] [phone] Elizabeth Garcia MD [address] [facility] 3 [place] [address] 01/17/2025 12:30 PM CDT Procedure visit [facility] - GI [address] [facility], [place] [phone] 01/17/2025 1:00 PM CDT Office Visit [facility] - GI [address] [facility], [place] [phone] Marlena Mccoy, BURNER HAND-COCONUT COOKER [address] [facility] [address]FL DIV OF [place]STR[place] [address] documented as of this encounter Goals Goal Patient Goal Type Associated Problems Recent Progress Patient-Stated? Author Mobility General On track( 021 9:08 AM JEEP DRIVER) No Tika Pope, RN Note: Expected end [...] left documented in this encounter Care Teams Emblem Fuser Tender Relationship Specialty Start Date End Date Willis Veras MD [address] [place] [address] PCP - General 05/03/21 Cole Ku MD [address] [facility] 2L DIV OF [place] [address] General Surgery 11/10/20 documented as of this encounter
--- OUTSIDE RECORDS SUMMARY | 2024-04-25 14:02 | XMS_ITS | Encounter Summary ---
Author Organization [facility] Address [address] [place] [address] Care Team Providers Care Dough Sheeter Name Role Phone Cole Ku MD Unavailable Willis Veras MD Primary Care Provider Reason for Visit * Reason Onset Date Comments MEDICATION REFILL 02/28/2022 Encounter Details Date Type Department Care Team (Late st Contact Info) Description 02/28/2022 Refill [facility] [address] [place], [place] [phone] Kevin Britton MD 1031 [facility] [address] [place], [place] [phone] MEDICATION REFILL Social History Tobacco Use Types [...] st Contact Info) Description 06/02/2024 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 Office Visit [facility] - Orthopedic Surgery [address] [place] [phone] Kevin Britton MD [address] [facility] [address] [place] [address] 08/10/2024 1:00 PM CDT Office Visit [facility] - HAND BINDERY ASSEMBLY WORKER 10[address] [facility] [address] [place] [phone] Daja Mir MD [address] [facility]'s [facility] [place] [address] 10/26/2024 1:00 PM CDT Office Visit [facility] - Hematology/Oncology [address] [place] [phone] Elizabeth Garcia MD [address] [facility] 3 [place] [address] 01/17/2025 12:30 PM CDT Procedure visit [facility] - GI [address] [facility], [place] [phone] 01/17/2025 1:00 PM CDT Office Visit [facility] - GI [address] [facility], [place] [phone] Marlena Mccoy, QA ARCHITECT-SURGICAL FIRST ASSISTANT [address] [facility] [address] [place] [address] documented as of this encounter Goals Goal Patient Goal Type Associated Problems Recent Progress Patient-Stated? Author Mobility General On track( 021 9:08 AM KEYBOARD INSTRUMENT TUNER) No Tika Pope, RN Note: Expected end [...] left documented in this encounter Care Teams Dough Sheeter Relationship Specialty Start Date End Date Willis Veras MD [address] [place] [address] PCP - General 05/03/21 Cole Ku MD [address] [facility] 2L [place] [address] General Surgery 11/10/20 documented as of this encounter
--- OUTSIDE RECORDS SUMMARY | 2024-04-25 14:02 | XMS_ITS | Encounter Summary ---
Author Organization [facility] Address [address] [place] [address] Care Team Providers [address] [employer] Replacer Name Role Phone Cole Ku MD Unavailable Willis Veras MD Primary Care Provider Reason for Visit * Auth/Cert Specialty Diagnoses / Procedures Referred By Americo peters Referred To Contact Diagnoses Diagnosis unknown Diagnosis unknown [R69] Procedures ARTHROPLASTY TOTAL KNEE Referral ID Status Reason Start Date Expiration Date Visits Re quested Visits Authorized [id number] 1 1 Encounter Details Date Type Department Care Team (Late st Contact Info) Description 02/01/2022 7:30 AM CDT - 02/01/2022 10:05 AM CDT Surgery [facility] PERIOPER[facility] [address] [place] [address] Kevin Britton MD [address] [place] [address] TOTAL KNEE ARTHROPLASTY Surgery Details Date/Time Status Location OR Service Patient Class Case Class Case Type Trauma Case? 02/01/2022 7:30 AM Posted [facility] MAIN OR OR 03 Orthopedics Surgery Day Care Over Night Elective > 5 days Panel 1 Procedure LRB Anes Op Region Wound Class Comments TOTAL KNEE ARTHROPLASTY Left General with Block Knee Clean Surgeon Surgeon Role Service Panel Kevin Britton MD Primary Orthopedics 1 Special Needs NEEDS RÍOS AND NEPHEW--REP. (STEFAN Manuel # [phone]) NOTIFIED BY SURGEON PER OFFICE (DENZEL)--10/23 KW Case confirmed with Stefan Myers 01-25-2022-MAB documented in this encounter Social History Tobacco [...] Recorded In the last 10 days, have omega vital been in contact with someone who was confirmed or suspected to have Coronavirus/COVID-19? No / Unsure 09/24/2021 11:59 AM CDT documented as of this encounter Last Filed Vital Signs Vital Sign Reading Time Taken Comments Blood Pressure 96/54 02/01/2022 10:05 AM CDT Pulse 56 02/01/2022 10:05 AM CDT Temperature 36.1 ??C (97 ??F) 02/01/2022 9:20 AM CDT Respiratory Rate 20 02/01/2022 10:05 AM CDT Oxygen Saturation 97% 02/01/2022 10:05 AM CDT Inhaled Oxygen Concentration - - Weight 93 kg (205 lb) 02/01/2022 6:04 AM CDT Height 170.2 cm (5' 7 ) 02/01/2022 6:04 AM CDT Body Mass Index 32.11 02/01/2022 6:04 AM CDT documented in this encounter Functional [...] 12/05/2020 documented as of this encounter Discharge Summaries * Jocelyn Gonzalez MD - 02/02/2022 6:10 AM CDT Orthopaedic Surgery Discharge Summary Patient ID: Milagros Torres [id number] 56 year old 1965 Admit date: 02/01/2022 Discharge date and time: 02/02/22 Admitting Physician: Kevin Britton MD Discharge Physician: Kevin Britton MD Admission Diagnoses: Diagnosis unknown [R69] Discharge Diagnoses: Active Problems: S/P total knee arthroplasty, left Discharged Condition: good Procedure Preformed: Left TKA on 02/01/22 Hospital Course: Milagros Torres was admitted on 02/01/2022 as an outpatient for the above listed procedure. Patient tolerated the procedure without complication and was extubated and transported to the PACU safely and was admitted as an inpatient. On POD#1 she cleared PT and pain was controlled on PO pain medication. Diet was advanced and patient tolerated PO intake. Patient was discharged home instable condition and will follow up with Dr. Britton in 4 week(s). Consults: None Disposition: Home Patient Instructions: Follow-up Information Kevin Britton MD . Specialty: Orthopedic Surgery Why: 4 weeks Contact information: [address] [place], [place] [id number] Discharge Instructions Please give the following instructions to the patient upon discharge/transfer: ?? Thigh high ANIBAL hose when up during the day. May remove at night while sleeping ?? Patient may discontinue compression stocking after two weeks. ?? Ankle flexion exercises every hour during the day to prevent swelling and deep vein thrombosis prevention. ?? Continue EC ASA 81mg BID for one month for DVT prophylaxis. ?? Keep wound clean and dry. Change surgical dressing 7 days after surgery. After that you should perform daily or every other day dressing changes with dry gauze and tape as needed for saturation. NO SHOWERS UNTIL AFTER BRENDEN ARE REMOVED. After brenden/sutures have been removed it is OK to shower but leave wound covered with a dressing in the shower. After shower, remove the wet dressing, pat dry, and apply antibiotic ointment over wound then place a clean dry dressing. ?? Apply an antibiotic ointment (neosporin/bacitracin) to incision daily after initial surgical dressing has been removed ?? Do not get incision wet in shower until brenden are removed. No tub soaks. No scrubbing around incision. ?? [place] to be removed on post op day 14 by home care nurse ?? Call [phone] to schedule the first follow-up appointment with Dr. Britton in 4 week(s) or for any questions Signed: Jocelyn Gonzalez MD 02/02/2022 documented in this encounter Discharge Instructions * Discharge Instructions* Jocelyn Gonzalez MD - 02/02/2022 6:10 AM CDT Please give the following instructions to the patient upon discharge/transfer: Thigh high ANIBAL hose when up during the day. May remove at night while sleeping Patient may discontinue compression stocking after two weeks. Ankle flexion exercises every hour during the day to prevent swelling and deep vein thrombosis prevention. Continue EC ASA 81mg BID for one month for DVT prophylaxis. Keep wound clean and dry. Change surgical dressing 7 days after surgery. After that you should perform daily or every other day dressing changes with dry gauze and tape as needed for saturation. NO SHOWERS UNTIL AFTER BRENDEN ARE REMOVED. After brenden/sutures have been removed it is OK to shower but leave wound covered with a dressing in the shower. After shower, remove the wet dressing, pat dry, and apply antibiotic ointment over wound then place a clean dry dressing. Apply an antibiotic ointment (neosporin/bacitracin) to incision daily after initial surgical dressing has been removed Do not get incision wet in shower until brenden are removed. No tub soaks. No scrubbing around incision. Brenden to be removed on post op day 14 by home care nurse Call [phone] to schedule the first follow-up appointment with Dr. Britton in 4 week(s) or for any questions documented in this encounter Medications at Time [...] tablet 02/01/2022 2 celecoxib (CeleBREX) 50 MG capsule Take 2 (two) capsules by mouth once daily 30 capsule 02/01/2022 2 docusate sodium (Colace) 100 MG capsule Take 1 (one) capsule by mouth 2 times daily as needed for Constipation 30 capsule 02/01/2022 2 famotidine (Pepcid) 20 MG tablet Take 1 (one) tablet by mouth 2 times daily 60 tablet 02/01/2022 2 tamoxifen (NOLVADEX) 20 MG tabletIndications:Encount er for monitoring tamoxifen therapy,History of breast cancer TAKE 1 TABLET BY MOUTH EVERY DAY 30 tablet 6 08/13/2021 2 documented as of this encounter Progress Notes * Brooke Beard, OT - 02/02/2022 10:14 AM CDT Occupational Therapy Initial Evaluation Orders received. Chart reviewed for diagnosis and medical systems review. Nursing consented for OT. Explained purpose of OT and patient consented to participate in therapy. PPE worn by staff: gloves;mask - procedural Past Medical History: Diagnosis Date ??? Arthropathy ??? Breast cancer ??? Depression with anxiety ??? Disorder of liver NAFLD ??? Gallstones ??? Hypertension required meds when getting radiation for breast CA. No longer requiring meds ??? Malignancy breast left ??? Valvular heart disease heart murmur Precautions: TKA WBAT SUBJECTIVE: Pt reports she is having a much better day today then post surgery yesterday Psychosocial: Patient Behaviors: Calm;Cooperative Occupational Profile/PLOF: Type of Residence: (Trailer) Lives with:: Significant Other Home Structure: One Story Steps to Enter: 3 Handrails: Outdoor Ramp: No Primary Bedroom: First Floor Primary Bathroom: First Floor Bathroom : Walk in Shower Equipment at Home: Cane-Straight;Walker-2 Wheeled Mobility: Ambulate-In Community;Ambulate-In Home ;Independent;Without Assistive Device;Driving Fallen Within 6 Mos: No Have Help at Home?: Yes, there is help at home now How often is assistance provided?: SO will help w/ADLs, IADLs as needed Level of Help Sufficient?: Yes Oxygen at Home: No Activity at Home: Active;Driving (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 Pt works FT but reports she is taking at least a month off of work for recovery of surgery. Cognition: Orientation Level: Oriented X4 Level of Consciousness-Adult: Alert Cognition: Follows Commands-Consistent;Attention/concentration-normal for age;Processing-Appropriate Pain Assessment: Pain Rating Score #: 2 Pain Location : Knee Pain Orientation: Left Basic ADL's: Feeding: Complete [place] Oral Facial Hygiene: Set-up Bathing: Stand By Assist Upper Body Dressing: Set-up Lower Body Dressing: Stand By Assist Toileting: Stand By Assist Functional Mobility: Bed Mobility: Supine to Sit: Activity Does Not Occur Sit to Supine: Activity Does Not Occur Transfers: Sit to Stand: Stand By Assist Stand to Sit: Stand By Assist Toilet Transfers: Stand By Assist ASSESSMENT: Pt up in chair upon OT arrival. Completes bathing and dressing from chair. Pt set-up for UB bathing and dressing and SBA for LB. Pt able to reach BLE's for donning LB clothing over operated leg without issue. Some difficulty with shoe but pt able to complete with time. Completes toilet transfer and toileting with use of grab bar and w/w. Educated on toilet safety and adaptive methods if needed at home. Pt up in chair at end of session. Call light and phone in reach All lines, monitors, IV's, equipment in place and intact pre and post visit. RN notified of patient's performance/location end of session. Educated patient/family in benefits of OT, ADL's, safety Problem list: Decreased strength, decreased endurance, decreased balance, impaired functional mobility, impaired safety awareness, decreased knowledge of condition, decreased pain tolerance, need forfamily/caregiver training Functional limitation: Decreased independence with transfers; decreased ability to perform ADLs, decreased UE strength, decreased safety with functional mobility. Rationale for therapy: Patient will benefit from OT to address the above issues. Patient will be seen for: ADL retraining, functional transfers, balance, endurance, exercise. Refer to Plan of Care for OT goals. Refer to filed flow sheet for further details. RECOMMENDATIONS/PLAN: Pt tolerates therapy well post TKA. Able to complete ADL's with SBA and use of w/w. Good safety awareness with tasks. Pt to dc home later today with assistance from SO for ADL'sand IADL's as needed. OT Discharge Recommendations: Daily Assist;Home If this is the last Occupational Therapy visit, this serves as the discharge summary. Brooke OTR/L * Rosi Woody RN - 02/02/2022 10:14 AM CDT Case Management Progress Note Discharge Summary Discharge date: 02/02/22 Patient Disposition: Home with [facility] for home PT/OT. Referrals sent and pending acceptance. Continued Care and Services - Discharged on 02/02/2022 Admission date: 02/01/2022 - Discharge disposition: Home or Self Snf Medical Care Service Provider Request Status Selected Services Address Phone Fax Patient [facility] Pending - Request Sent N/A [address] [phone] -- [facility] Pending - Request Sent N/A [address] [facility], [facility] [address] [phone] -- [facility] Pending - Request Sent N/A [address] [facility] [address] [phone] -- [facility] Pending - Request Sent N/A [address] [facility] [address] [phone] -- [facility] Declined N/A [address] [address] [phone] -- Internal Comment last updated by Milagros Peterson RN 02/02/2022 1501 Outside of service area Basic Needs Assessment (BNA) Score: 6 Patient/Family provided with list of resources? Unknown Preferred Provider / High Quality Network List given?: Unknown Reason for provider choice: Unknown Transportation at Discharge: Family Transportation to [place]:Drives self Equipment at Home: Equipment at Home: Cane-Straight;Walker-2 Wheeled Hunger Screening: Within the past 12 months, you worried that your food would run out before you got the money to buymore.: Never true Within the past 12 months, the food you bought just didn't last and you didn't have money to get more.: Never true [employer] Resources Provided: Not offered to the patient Medication affordability concerns: [place]: Rosi Woody RN Phone: [phone] Care Coordination Nurse Capacity Planning Engineer * Joan Mares RN - 02/02/2022 10:14 AM CDT Patient provided list of in-network home health care. Home Health Referrals have been initiated based on patient's choice: Continued Care and Services - Discharged on 02/02/2022 Admission date: 02/01/2022 - Discharge disposition: Home or Self Snf Medical Care Service Provider Request Status Selected Services Address Phone Fax Patient [facility] Accepted N/A [address] [phone] -- Internal Comment last updated by Joan Mares, RN 02/04/2022 1038 [facility] can take her mid oct. Will need to call to confirm. [facility] Declined No payer/insurance N/A [address] [facility], [facility] [address] [phone] -- [facility] Declined no staffing N/A [address] [facility] [address] [phone] -- [facility] Declined No payer/insurance N/A [address] [facility] [address] [phone] -- [facility] Declined N/A [address] [address] [phone] -- Internal Comment last updated by Milagros Peterson RN 02/02/2022 1501 Outside of service area * Nayeli Magdaleno, PT - 02/02/2022 8:31 AM CDT Physical Therapy Treatment Summary Chart review completed. Nursing consented for PT. Explained purpose of PT and patient consented to participate in therapy. PPE worn by staff: gloves;mask - procedural PPE worn by patient: mask - procedural SUBJECTIVE: Patient states she is ready to go home. OBJECTIVE: Precautions: WBAT L LE Transfers: Sit to Stand: Stand By Assist Stand to Sit: Stand By Assist Mobility: Distance Ambulated: 75 FEET Ambulation: Assistive Device: Gait Belt;Walker-2 Wheeled Ambulation: Level of Assistance: Stand By Assist;Requires Verbal Cues for Technique Ambulation: Gait Deviations: Antalgic;Юлия - Decreased;Heel Strike - Decreased;Increased Weight Bearing through Upper Extremity;Push Off - Decreased;Step Length - Decreased;Hip/knee flexion duringswing phase-- decreased Weight Bearing Status-LLE: Weight Bearing as Tolerated Balance: good with support of wheeled walker Activity Tolerance and O2 Requirements: Activity Tolerance: Requires seated rest breaks $ O2 DEVICE: Room Air Exercise: Patient was provided with a written TKA HEP and reviewed with her x 10 reps. AROM L knee: 15 to 110 degrees flexion ASSESSMENT: Patient demonstrated ability to navigate 4 steps with stand by assist, verbal cues for technique and use of left rail and cane in right hand. Anticipate patient will not have difficulty navigating 3 steps into her home with spouse assist and use of her cane. Patient appears ready for discharge home. Call light and phone in reach with patient seated in recliner to comfort with ice applied to left knee. All lines, monitors, IV's, equipment in place and intact pre and post visit. RN, Shara, notified of patient's performance/location end of session. PT Katihe Brar, present to assist with chair follow to PT dept. Please refer to the Filed Flowsheet for further details. Refer to Plan of Care for PT goals. RECOMMENDATIONS/PLAN: Recommend discharge home with HHPT when medically stable. If this is the last Physical Therapy visit, this note serves as the discharge summary. ascom [id number] * Jocelyn Gonzalez MD - 02/02/2022 6:07 AM CDT [facility] Orthopedic Surgery Daily Progress Note Milagros Torres, 56 year old, female : 1965 CSN: [id number] Primary Care Physician: Willis Veras MD - Admission Date/Time: 02/01/2022 5:28 AM - Hospital Day: 1 Subjective Patient seen and examined this AM on rounds. No new problems or issues overnight. Pain controlled this morning. Denies any new numbness/paresthesias. Vitals Temp (24hrs), Av ??F (36.7 ??C), Min:97 ??F (36.1 ??C), Max:98.7 ??F (37.1 ??C) BP 110/65 Pulse 83 Temp 98.3 ??F (36.8 ??C) (Oral) Resp 20 Ht 5' 7 (1.702 m) Wt 205 lb (93 kg) SpO2 98% Labs Recent Labs Component Name 02/02/22 0158 01/22/22 1015 08/06/21 1049 01/15/21 1023 WBC - 5.3 6.8 5.4 HGB 9.1* 12.1 13.0 12.3 HCT 27.7* 36.6 39.2 38.0 PLTCOUNT - 178 182 165 Physical Exam General appearance: Awake, cooperative, no acute distress Left lower extremity: -Appearance: dressings c/d/i with minimal spotting -Motor: Able to plantarflex ankle, able to dorsiflex ankle, able to plantarflex great toe, able to dorsiflex great toe -Sensation: SILT to dorsal and plantar foot -Vascular: 2+ DP pulse with toes warm and well perfused Assessment/Plan Active Problems: S/P total knee arthroplasty, left Patient is a 56 year old, female with left knee arthritis - s/p left total knee arthroplasty with Dr. Britton on 02/01/22 1. Activity/Weight-bearing status: WBAT LLE 2. Current Dispo: plan for d/c home today 3. Anticoagulation Status: ASA 81BID 4. Antibiotics: Elsa-op Ancef 5. Wound care: Continue current dressings until POD#7 6. Diet: regular 7. PT/OT 8. Pain Control 9. Orthopedics will continue to follow. Please page with any questions or concerns Please give the following instructions to the patient upon discharge/transfer: ?? Thigh high ANIBAL hose when up during the day. May remove at night while sleeping ?? Patient may discontinue compression stocking after two weeks. ?? Ankle flexion exercises every hour during the day to prevent swelling and deep vein thrombosis prevention. ?? Continue EC ASA 81mg BID for one month for DVT prophylaxis. ?? Keep wound clean and dry. Change surgical dressing 7 days after surgery. After that you should perform daily or every other day dressing changes with dry gauze and tape as needed for saturation. NO SHOWERS UNTIL AFTER BRENDEN ARE REMOVED. After brenden/sutures have been removed it is OK to shower but leave wound covered with a dressing in the shower. After shower, remove the wet dressing, pat dry, and apply antibiotic ointment over wound then place a clean dry dressing. ?? Apply an antibiotic ointment (neosporin/bacitracin) to incision daily after initial surgical dressing has been removed ?? Do not get incision wet in shower until brenden are removed. No tub soaks. No scrubbing around incision. ?? [place] to be removed on post op day 14 by home care nurse ?? Call [phone] to schedule the first follow-up appointment with Dr. Britton in 4 week(s) or for any questions Jocelyn Gonzalez MD 02/02/2022 6:07 AM Pager #[phone]. After 5pm and weekends please page ortho resident machine stone polisher. [facility] Orthopedic Surgery office contact information: [address] Floor [place], [place] [id number] * Jaz Macias RN - 02/01/2022 5:00 PM CDT Report given to SABRINA Olmedo to assume care for this pt. B. SABRINA Macias * Jaz Macias RN - 02/01/2022 5:00 PM CDT Problem: Pain/Discomfort Goal: Patient exhibits reduced pain/discomfort as evidenced by pain scores Outcome: Progressing Problem: Anxiety Goal: Anxiety is at manageable level Outcome: Progressing Problem: Risk of VTE Goal: Patient is free of signs and symptoms of VTE Outcome: Progressing Problem: Procedural Site (Incision) Care Goal: Incision remains intact with edges well approximated Outcome: Progressing * Wendie Blunt RN - 02/01/2022 4:35 PM CDT Problem: Pain/Discomfort Goal: Patient exhibits reduced pain/discomfort as evidenced by pain scores Outcome: Progressing Goal: Patient uses pharmacological and non-pharmacological pain management strategies. Outcome: Progressing Goal: Patient verbalizes acceptable level of pain relief and ability to engage in desired activity. Outcome: Progressing Goal: Patient's functional goal is met Outcome: Progressing Problem: Activity Intolerance/Impaired Mobility Goal: Mobility/activity is maintained at optimum level for patient Outcome: Progressing Problem: Hemodynamic Status/Cardiac Output Goal: Patient has stable vital signs and fluid balance Outcome: Progressing Problem: Anxiety Goal: Anxiety is at manageable level Outcome: Progressing Problem: Risk of VTE Goal: Patient is free of signs and symptoms of VTE Outcome: Progressing Problem: Procedural Site (Incision) Care Goal: Incision remains intact with edges well approximated Outcome: Progressing Goal: Incision is free of infection. Outcome: Progressing * Rosi Woody RN - 02/01/2022 3:52 PM CDT PT/OT recommending home with HHC. HHC referrals sent and pending acceptance. Patient has [facility]. Continued Care and Services - Admitted Since 02/01/2022 Home Medical Care Service Provider Request Status Selected Services Address Phone Fax Patient [facility] Pending - Request Sent N/A [address] [address] [phone] -- [facility] Pending - Request Sent N/A [address] [facility] [address] [phone] -- [facility] Pending - Request Sent N/A [address] [facility] [address] [phone] -- [facility] Pending - Request Sent N/A [address] [facility] [address] [phone] -- [facility] Pending - Request Sent N/A [address] [address] [phone] -- Rosi Woody, Capacity Planning Engineer RN [phone] 02/01/2022 * Ree Ge, PT - 02/01/2022 3:11 PM CDT Physical Therapy Evaluation. PT orders received, chart reviewed for diagnosis and medical systems review.. Nursing consents for PT. Explained purpose of PT and patient consented to participate in therapy. PPE worn by staff: gloves;mask - procedural Pt presented to [facility] for elective left TKR due to DJD. Surgery performed today. SUBJECTIVE: Pt presents in bed in NAD; she reports some foot numbness but otherwise has full feeling and quad contraction. Pt lives with her SO. They have a 5th wheel trailer where they will stay during pt's recovery (theysometimes stay with SO's sister and kids). There will be ~3 steps to enter then all 1 level. 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) Oxygen at Home: No Pain Assessment: Pain Rating Score #: 5 Pain Location : Knee Pain Orientation: Left Patient/family stated goal: Home with SO OBJECTIVE: Cognition: Orientation Level: Oriented X4 Cognition: Follows Commands-Consistent;Attention/concentration-normal for age;Processing-Appropriate Level of Consciousness-Adult: Alert Participation: Active Participation Precautions: Fall ROM and Strength: AROM - Right Lower Extremity: Within Functional Limits Strength - Right Lower Extremity: Within Functional Limits AROM - Left Lower Extremity: Exceptions Strength - Left Lower Extremity: (3-/5 for quads) Balance: Sitting - Static: Normal Sitting - Dynamic: Good Standing - Static: Fair Standing - Dynamic: Fair;With Both Upper Extremity's Support Bed Mobility: Supine to Sit: Modified [place] Sit to Supine: Activity Does Not Occur Transfers: Sit to Stand: Stand By Assist Stand to Sit: Stand By Assist Type of Transfer: Stand Pivot Transfer (w/2ww bed to [facility] [place]) Mobility: Distance Ambulated: 10 FEET Ambulation: Assistive Device: Gait Belt;Walker-2 Wheeled Ambulation: Level of Assistance: Stand By Assist Ambulation: Gait Deviations: Weight Shift - Decreased;Hip/knee flexion during swing phase-- decreased Weight Bearing Status-LLE: Weight Bearing as Tolerated Vitals: HR 60-70s BP 121/75 SpO2 100% ASSESSMENT: Pt presents DOS left TKR. She tolerated session fairly well as she was able to transferand walk short distance with SBA to mod independence. Will f/u tomorrow for further gait training, stair training and to review HEP. Call light and phone in reach. All lines, monitors, IV's, equipment in place and intact pre and post visit. RNJaz, notified of patient's performance/location at end of session. Pt educated in PT plan of care, fall precautions, and benefits of OOB activity. Problem list: Decreased strength, decreased balance, decreased endurance, decreased ROM Functional limitations: Decreased independence with ambulation/transfers, decreased safety with functional mobility. Rationale for therapy: Patient will benefit from PT to address the above issues. Refer to Plan of Care for PT goals. Please refer to Filed Flowsheet PT Evaluation for further details. RECOMMENDATIONS/PLAN: PT Discharge Recommendations: Home;Daily Assist;Home Health PT Pt has access to a walker and a cane. Recommended Transportation Method: Private Car If this is the last PT visit, this note serves as the discharge summary. Ree Vasquez [phone] * Rosi Woody RN - 02/01/2022 11:09 AM CDT Friday Summary Note and Chart Review has been conducted by CM Anticipated level of care at discharge: Home, Acute Rehab Facility, Home Health Care Discharge Plan: Patient here for Left Knee arthroplasty today. PT/OT to see and assess. HHC referral placed and pending acceptance. DME referral for walker. CM following. Patient is A&Ox4 on RA UAL from home. Will return home with possibly HHC and walker when medically cleared by ortho. Basic Needs Assessment (BNA) Score: 6 Anticipated Discharge Date: 02/04/22 PCP: Willis Veras MD Per nursing assessment. Transportation at discharge: Family Transportation (who): to be arranged by pt at DC Residential Sales Manager/Support: Residential Sales Manager/Support Person - Relationship:: Kyrie, boyfriend Equipment with patient: None Assistive Devices: None ?. Will continue to follow. For any questions or needs please contact: Capacity Planning Engineer Name/Phone number: Rosi Woody RN [phone] * Ean Tabares IV, MD - 02/01/2022 9:19 AM CDT Orthopaedic Surgery Postoperative Check Surgery Date: 02/01/2022 Diagnosis: Diagnosis unknown [R69] Procedure Preformed: Procedure(s): TOTAL KNEE ARTHROPLASTY Subjective Complaints: none Nausea/vomiting: absent Pain: Controlled Postoperative vitals: Patient Vitals for the past 6 hrs: Temp Pulse Resp BP BP Method 02/01/22 0609 97.6 ??F (36.4 ??C) 60 16 153/87 Automatic Physical Exam General appearance: Resting in PACU Left lower extremity: fires EHL/FHL/GS/AT, Sensation intact to light touch distally, Extremity warmand well perfused, Dressing/anibal hose/Ice pack is intact, clean, and dry. Assessment/Plan Milagros Torres is a(n) 56 year old, female with left knee arthritis - s/p left Total Knee Arthroplasty by Dr. Britton on 02/01/22 1. Activity/Weight-bearing status: WBAT LLE 2. Current Dispo: floor 3. Anticoagulation Status: ASA 81 BID 4. Antibiotics: Elsa-op Ancef 5. Wound care: Continue current dressings until POD#7 6. Diet: regular 7. PT/OT 8. Pain Control 9. Orthopedics will continue to follow. Please page with any questions or concerns For questions regarding the orthopaedic care of this patient, please page myself (Dr. Tabares) through the lithographic press operator apprentice or amion from 6AM-5PM on weekdays. After 5PM or on weekends, please page ortho machine stone polisher via [employer]. Thank you! Please give the following instructions to the patient upon discharge/transfer: ?? Thigh high ANIBAL hose when up during the day. May remove at night while sleeping ?? Patient may discontinue compression stocking after two weeks. ?? Ankle flexion exercises every hour during the day to prevent swelling and deep vein thrombosis prevention. ?? Continue EC ASA 81 mg po bid for one month for DVT prophylaxis. ?? Keep wound clean and dry. Change surgical dressing 7 days after surgery. After that you should perform daily or every other day dressing changes with dry gauze and tape as needed for saturation. After brenden/sutures have been removed it is OK to shower but leave wound covered with a dressing inthe shower. After shower, remove the wet dressing, pat dry, and apply antibiotic ointment over wound then place a clean dry dressing. ?? Apply an antibiotic ointment (neosporin/bacitracin) to incision daily after initial surgical dressing has been removed ?? Do not get incision wet in shower until brenden are removed. No tub soaks. No scrubbing around incision. ?? Brenden to be removed on post op day 14 by home care nurse ?? Call [phone] to schedule the first follow-up appointment with Dr. Britton in 4 week(s) or for any questions Ean Tabares IV, MD 02/01/2022 9:19 AM documented in this encounter H&P Notes * Ean Tabares IV, MD - 02/01/2022 5:45 AM CDT Orthopedic Surgery H&P Note Milagros Torres, 56 year old, female : 1965 CSN: [id number] History Patient seen and examined this AM. Has been NPO since midnight. Ready to proceed to OR today for LEft total knee arthroplasty Milagros Torres is a 56 year old female with left knee arthriti. The patient presents today for operative intervention. Conservative treatment for patient's condition including PT, NSAIDS has failed. The patient denies any new medical issues since being seen. No fever, chills or recent illnesses. Pertinent ROS otherwise negative. No other concerns at this time. Objective not currently . PMHx Past Medical History: Diagnosis Date ??? Arthropathy ??? Breast cancer ??? Depression with anxiety ??? Disorder of liver NAFLD ??? Gallstones ??? Hypertension required meds when getting radiation for breast CA. No longer requiring meds ??? Malignancy breast left ??? Valvular heart disease heart murmur PSHx Past Surgical History: Procedure Laterality Date ??? BIOPSY BREAST ??? Breast Lumpectomy Left 09/04/2015 With sentinel node biopsy performed by Dr. Brittni Knight ??? Section 05/1990 ??? Cholecystectomy, Laparoscopic N/A 12/05/2020 N/A; LAPAROSCOPIC CHOLECYSTECTOMY ??? COLONOSCOPY N/A 09/18/2020 N/A; COLONOSCOPY SCREEN---extended prep with Cheesman ??? Dilation and Curettage twice Social Hx Social History Tobacco Use ??? Smoking status: Never Smoker ??? Smokeless tobacco: Never Used Substance Use Topics ??? Alcohol use: Yes Comment: ocassional weekends Family Hx family history includes Cancer - Breast in her sister; Cancer - Lung in her mother. Allergies No Known Allergies Medications No current facility-administered medications for this encounter. Current Outpatient Medications Medication ??? calcium 600 MG tablet ??? losartan - hydroCHLOROthiazide (Hyzaar) 50-12.5 MG tablet ??? meloxicam (MOBIC) 15 MG tablet ??? tamoxifen (NOLVADEX) 20 MG tablet ??? Vitamin D3, cholecalciferol, 50 MCG (1999) tablet Review of Systems A 12 point review of systems was performed and was negative except for what was mentioned in the HPI Physical Exam General: Alert, cooperative, in no acute distress. CV: RRR, distal pulses equal and symmetric Resp: no increased labor of breathing Musculoskeletal: Left lower extremity: -Appearance: skin intact -Tenderness: not assessed -ROM: 5-110 knee ROM -Motor: Fires EHL/FHL/Gastroc/TA -Sensation: SILT to dorsal and plantar foot -Vascular: 2+ DP pulse with toes warm and well perfused Imaging - xr shows left knee ddegnerative changes - Please see separate radiographic report for formal read by Radiology Assessment/Plan: 56 year old female with left knee arthritis 1. In light of the patient's above mentioned injuries, and following discussion of various treatment options, surgical management was elected for treatment of her injury. Following discussion of the indications, contraindications, risks, benefits, and potential complications the patient agreed to the procedure and consent was obtained. 2. Procedure consent form signed and in chart 3. Correct surgical site is marked 4. Proceed to OR today for left total knee arthroplasty 5. Continue NPO, sips with meds OK 6. Hold DVT chemoprophylaxis 7. Pre-op Ancef 9. Plan for postop admission 10. Please page with any questions or concerns 01/28/2022 11:20 AM Associated attestation - Kevin Britton MD - 02/01/2022 6:11 AM CDT Patient seen and examined, agree with above resident note. Site marked This patient? s prior H&P was reviewed, the patient was examined and no change has occurred in the patient's condition since the prior H&P was completed. Briefly, this is a 56 year old female with left knee pain secondary to severe osteoarthritis. Exam reveals left knee limitation of and pain with ROM. Complete examination/plan noted above. I personally examined the patient and edited and agree with the above findings in the note Assessment/Plan: Conservative treatment for severe left knee osteoarthritis including >12 weeks of PT, NSAIDS, glucosamine/Vit D, ambulatory aids, weight loss, and corticosteroid injections has failed. Further conservative treatment which has been unsuccessful is contraindicated as it would leadto further debility and worsening deconditioning. Symptoms of pain, difficulty ambulating, increased risk of falling due to poor range of motion and instability/locking/and catching, difficulty standing, difficulty with stair climbing and difficulty with personal hygiene are interfering with patient's lifestyle. Will proceed with previously discussed left knee arthroplasty Risks, benefits, and alternatives to the surgical procedure were discussed with the patient and present family members. Risks discussed among others but not limited to were: Infection, bleeding/bloodtransfusion, neurovascular damage, prosthetic joint instability, periprosthetic fracture, failure to improve symptoms, venous thrombosis/pulmonary embolism, and anesthesia complications including myocardial infarction, stroke, or even . We also discussed the procedure at length and answered any of the patient's questions. We also discussed the importance of early motion and early active ankle pumps for DVT/PE prevention and demonstrated this to the patient and had active participation as well. Patient understood the treatment plan and all questions were answered. In addition to the standard procedural informed consent, the specific risks related to COVID-19 were also discussed, including the possibility of an infection being present with a negative test, the risk of shad COVID-19, and the known implications of this infection. See consent form. The patient is admitted with a diagnosis or diagnoses of severe osteoarthritis left knee and current medical/postoperative needs are included below. The patient has the following complex medical factors: No current facility-administered medications on file prior to encounter. Current Outpatient Medications on File Prior to Encounter Medication Sig Dispense Refill calcium 600 MG tablet Take 1 tablet by mouth daily with food 90 tablet 2 meloxicam (MOBIC) 15 MG tablet Take 1 (one) tablet by mouth once daily 90 tablet 1 tamoxifen (NOLVADEX) 20 MG tablet TAKE 1 TABLET BY MOUTH EVERY DAY 30 tablet 6 Vitamin D3, cholecalciferol, 50 MCG (1999 UT) tablet Take 1 tablet by mouth once daily 90 tablet 2 Past Medical History: Diagnosis Date Arthropathy Breast cancer Depression with anxiety Disorder of liver NAFLD Gallstones Hypertension required meds when getting radiation for breast CA. No longer requiring meds Malignancy breast left Valvular heart disease heart murmur Past Surgical History: Procedure Laterality Date BIOPSY BREAST Breast Lumpectomy Left 09/04/2015 With sentinel node biopsy performed by Dr. Brittni Knight Section 05/1990 Cholecystectomy, Laparoscopic N/A 12/05/2020 N/A; LAPAROSCOPIC CHOLECYSTECTOMY COLONOSCOPY N/A 09/18/2020 N/A; COLONOSCOPY SCREEN---extended prep with Cheesman Dilation and Curettage twice Social History Occupational History Not on file Tobacco Use Smoking status: Never Smoker Smokeless tobacco: Never Used Vaping Use Vaping Use: Never used Substance and Sexual Activity Alcohol use: Yes Comment: ocassional weekends Drug use: Never Sexual activity: Not on file Family History Problem Relation Name Age of Onset Cancer - Lung Mother Cancer - Breast Sister . Milagros Torres needs to be admitted for 1-2 days postoperatively after total hip/knee arthroplasty for the following reasons: 1. Postoperative monitoring after anesthesia and blood loss > 200cc 2. Postoperative pain control (including intravenous narcotic medications) 3. To complete physical therapy for safe return to patient's previous living conditions including teaching of hip precautions where applicable or to perform knee ROM exercises where applicable 4. Postoperative medical evaluation and care of comorbid conditions by hospitalist team 5. Postoperative monitoring of hemoglobin/hematocrit and to evaluate for transfusion necessity after major orthopaedic surgery Please see resident's note for further details. documented in this encounter Consult Notes * Karly Oneill MSW - 02/01/2022 12:19 PM CDTAssociated Order(s): IP CONSULT TO HUMANITIES PROFESSOR Friday note. SW acknowledges referrals to assist with discharge planning once SW needs are identified (dischargeneeds are TBD at this time).. ORI Gibson 02/01/2022 12:20 PM [phone]. * Rosi Woody RN - 02/01/2022 11:15 AM CDTAssociated Order(s): IP CONSULT TO CASE MANAGEMENT This CM acknowledges consult for discharge planning. [facility] referral sent and pending acceptance. Walker ordered if needed. CM following. Rosi Woody, Capacity Planning Engineer RN [phone] 02/01/2022 * Rosa Elena Hernandez - 02/01/2022 10:35 AM CDT Patient is an advance ortho patient, due to patient living out of [facility] service area, home care hasbeen set up with [facility] Thank you, Rosa Elena Hernandez [facility] Admissions Associate [phone] direct number [phone] opt 1 main number documented in this encounter OR Notes * Brief Op Note - Ean Tabares IV, MD - 02/01/2022 7:53 AM CDT Brief Op Note Procedure: TOTAL KNEE ARTHROPLASTY Patient Name: Milagros Torres Date of Service: 02/01/2022 Pre-Op Diagnosis: Left knee arthritis Post-Op Diagnosis: same Surgeon(s) and Role: * Kevin Britton MD - Primary Web Feeder(s): Ean Tabares MD resident assisting Anesthesia Type: general ETT Complications: none Findings: Left total knee arthroplasty performed EBL: blood loss of 200 ml Urine Output : none IV Fluid Intake: see anaesthesia note Drains: * No LDAs found * Specimen(s): * No specimens in log * Implant(s): Implant Name Type Inv. Item Serial No. Breadman Lot No. LRB No. Used Action Ins Tib 3-4 11Mm Kn Xlpe Dsh Legion Ins Tib 3-4 11Mm Kn Xlpe Dsh Legion [employer] [id number] Left 1 Implanted Cmpnt Fem Kn Lt 5 Crcte Rtn Legion [place] Cmpnt Fem Kn Lt 5 Crcte Rtn Legion [place] [employer] [id number] Left 1 Implanted Stem Tib 55Mm 18Mm Prfx Mtphsl Kn Stem Tib 55Mm 18Mm Prfx Mtphsl Kn [employer] [id number] Left 1 Implanted Bsplt Tib Legion 4 Kn Lt [place] Por Bsplt Tib Legion 4 Kn Lt [place] Por [employer] [id number] Left 1 Implanted Screw Bsplt 25Mm 6.5Mm Gns2 Kn Tib Por Screw Bsplt 25Mm 6.5Mm Gns2 Kn Tib Por [employer] [id number] Left 1 Implanted Screw Bsplt 20Mm 6.5Mm Gns2 Kn Tib Por Screw Bsplt 20Mm 6.5Mm Gns2 Kn Tib Por [employer] [id number] Left 1 Implanted Screw 6.5Mm 30Mm Sphrcl Head Hip Actb Screw 6.5Mm 30Mm Sphrcl Head Hip Actb [employer] [id number] Left 1 Implanted Screw Bsplt 30Mm 6.5Mm Gns2 Kn Tib Por Screw Bsplt 30Mm 6.5Mm Gns2 Kn Tib Por [employer] [id number] Left 1 Implanted Ean Tabares IV, MD * Operative - Kevin Britton MD - 02/01/2022 7:53 AM CDT DATE OF SURGERY: 02/01/2022 PREOPERATIVE DIAGNOSIS: Severe varus osteoarthritis, left knee. POSTOPERATIVE DIAGNOSIS: Severe varus osteoarthritis, left knee. PROCEDURES PERFORMED: 1. Left total knee arthroplasty. SURGEON: Kevin Britton M.D. PSYCH SOCIAL WORKER: Ean Tabares MD ANESTHESIA: General endotracheal with preoperative block (adductor canal). INDICATION FOR PROCEDURE: Patient is a 56y/o with a history of severe left knee pain. Patient was seen in our clinic and was found to have severe osteoarthritis of the left knee in a varus pattern. Conservative measures were exhausted including NSAIDs, weight loss, vitamin D and glucosamine/chondroitin supplementation, activity modification, physical therapy, corticosteroid injections and pain medications. X-rays revealed severe osteoarthritis in a varus pattern with joint space narrowing, sclerosis and osteophyte formation in all 3compartments. Risks, benefits and alternatives were discussed with patient at length and it was decided to proceed with a left total knee arthroplasty. Consents were obtained. DESCRIPTION OF PROCEDURE: Patient was brought to the operating room, induced under general anesthesia, and all bony prominences/uninvolved limbs were well padded. The patient was given preoperative antibiotics per the SCIP protocol. Patient received 1 g tranexamic acid prior to the start of the procedure and another gram at closure to decrease blood loss. After an appropriate timeout verifying surgical site and patient allergies/comorbidities, the left knee was prepped and draped in the usual sterile fashion using alcohol and chloraprep. A tourniquet was applied but not inflated. A #10 blade was used to create the anterior incision. Dissection was carried down to the fascia. The medial parap atellar approach was utilized to enter the knee joint. The infrapatellar fat pad was excised and a medial soft tissue sleeve was created for later closure. The patella was everted and all osteophytes removed performing a patelloplasty with a rongeur. We then performed a limited neurectomy using electrocautery around the periphery of the patella. The patella was then subluxed throughout the case, but was not everted. The knee retractors were placed and knee was flexed and the anterior-posterior axis was drawn on the distal femur in the usual fashion using electrocautery. The entry reamer was used to enter the femoral and tibial intramedullary canals per peroperative templating. The canals were suctioned throughout the case using a sigmoid suction tip prior to any instrumentation to avoid embolization. The knee was also thoroughly irrigated throughout the case using antibiotic-impregnated saline. Next, the grace was placed into the femur after suctioning. The cutting guide was placed at 5 degrees of valgus on the distal femur. The distal femoral cut was then made. The distal bone was removed and the sizing guide was placed and sized to a size 5. The size 5 cutting block was then placed in the appropriate anterior to posterior and rotational position, which was approximately 3 degrees externally rotated to the posterior condylar axis and perpendicular to the anterior posterior axis. The distal femoral anterior, posterior, posterior chamfer and anterior chamfer cuts were then made. All excess bone was removed and attention directed to the tibia. The tibial grace was placed after suctioning and the initial cut was made at 10 mm. A secondary finishing cut was made another 1-1.5 mm. The tibia sized to a size 4 and all osteophytes were then removed from the distal femur and proximal tibia in the usual fashion using a rongeur and a knife. The remnants of the meniscus were removed as well. Care was taken to protect the PCL throughout the entire process. The posterior distal femoral osteophytes were removed using a curved osteotome. Next, the trial implants were then placed with a 9mm trial poly high flex. A deep medial collateral ligament release was performed with removal of the large medial tibial osteophyte and polyethylene increased to 11 mm dished as the PCL function was not perfect. The knee was taken through range of motion after ligament balancing; It had full extension with about 1-2 mm of opening to varus and valgus stresses in extension, with excellent flexion and good AP stability with a dished insert and about 1-2 mm of opening to varus and valgus stresses in flexion. The rotationof the tibial component was marked with electrocautery and the lug holes punched in the femur. The trials were then removed. The knee was thoroughly irrigated. The tibial implant was then placed after suctioning the tibia and placing a depot of antibiotic solution and with a/an 18-mm stem. The size4 tibial base was impacted. We then placed 4 screws lengths 20,25,30,30 all having good bites. The polyethylene size 11mm dished was then locked into the tibial tray. The femoral canal was then suctioned and a depot of antibiotic solution was placed and a bone plug placed into the distal femur. Thefemoral component was then impacted taking care to avoid component flexion size 5. The knee was again taken through range of motion and was found to be stable as noted previously. Patellar tracking was then assessed with the no thumbs, no bounce technique. It tracked centrally without an extrasynovial lateral retinacular release. All bleeding was controlled with electrocautery. Thorough irrigation with the above solution and dilute betadine solution with 35cc betadine solution in 1000cc of saline (3 minute soak) was followed by sprinkling of 1 g vancomycin in the soft tissues. The medial parapatellar approach was closed with #3 and #2 Vicryl sutures, both interrupted and running, followed by 2-0 Vicryl for the subcutaneous tissues and skin brenden for the skin. An aquacel dressing was then placed. 30cc 1/2 % marcaine with epi was infiltrated in the joint after capsular closure. Patient was then awakened from general anesthesia and taken to recovery in stable condition. There were no complications. In recovery the patient had a palpable DP pulse and could dorsiflex and plantarflex the ankles and toes, indicating good neurovascular function. SPECIMENS: None. DRAINS: None. COMPLICATIONS: None ESTIMATED BLOOD LOSS: 200cc IMPLANTS: [place] chrome uncemented femoral component and titanium uncemented tibial component. Implant Name Type Inv. Item Serial No. Breadman Lot No. LRB No. Used Action Ins Tib 3-4 11Mm Kn Xlpe [facility] Ins Tib 3-4 11Mm Kn Xlpe [facility] [id number] Left 1 Implanted Cmpnt Fem Kn Lt 5 Crcte Rtn [facility] [place] Cmpnt Fem Kn Lt 5 Crcte Rtn [facility] [employer] [id number] Left 1 Implanted Stem Tib 55Mm 18Mm Prfx Mtphsl Kn Stem Tib 55Mm 18Mm Prfx Mtphsl Kn [employer] [id number] Left 1 Implanted Bsplt Tib [facility] 4 Kn Lt [place] Por Bsplt Tib [facility] 4 Kn Lt [place] Por [employer] [id number] Left 1 Implanted Screw Bsplt 25Mm 6.5Mm Gns2 Kn Tib Por Screw Bsplt 25Mm 6.5Mm Gns2 Kn Tib Por [employer] [id number] Left 1 Implanted Screw Bsplt 20Mm 6.5Mm Gns2 Kn Tib Por Screw Bsplt 20Mm 6.5Mm Gns2 Kn Tib Por [employer] [id number] Left 1 Implanted Screw 6.5Mm 30Mm Sphrcl Head Hip Actb Screw 6.5Mm 30Mm Sphrcl Head Hip Actb [employer] [id number] Left 1 Implanted Screw Bsplt 30Mm 6.5Mm Gns2 Kn Tib Por Screw Bsplt 30Mm 6.5Mm Gns2 Kn Tib Por [employer] [id number] Left 1 Implanted COUNTS: Sponge and needle counts were correct at the end of procedure and I was present for the entire case. Kevin Britton MD documented in this encounter Plan of Treatment Upcoming Encounters Date Type Department Care Team (Late st Contact Info) Description 06/02/2024 10:30 AM LAMINATE FLOOR INSTALLER Office Visit [facility] - Orthopedic Surgery [address] [place] [phone] Kevin Britton MD [address] [facility] [address] [place] [address] 08/10/2024 1:00 PM CDT Office Visit [facility] - COKE STILL CLEANER [address] [facility] [address] [place] [address] Daja Mir MD [address] [place] [address] 10/26/2024 1:00 PM CDT Office Visit [facility] - Hematology/Oncology [address] [place] [phone] Elizabeth Garcia MD [address] [facility] [address] [place] [address] 01/17/2025 12:30 PM CDT Procedure visit [facility] - GI [address] [place] [address], [place] [phone] 01/17/2025 1:00 PM CDT Office Visit [facility] - [address], [place] [phone] Marlena Mccoy, LENGTH CONTROL TESTER-OIL AND GAS LEASE PUMPER [address] [place] [address] [facility] [address] documented as of this encounter Goals Goal Patient Goal Type Associated Problems Recent Progress Patient-Stated? Author Mobility General On track( 021 9:08 AM LAMINATE FLOOR INSTALLER) No Tika Pope, RN Note: Expected [...] Associated Diagnosis Comments CARDIAC RHYTHM STRIP ORDER 02/05/2022 12:57 AM CDT IMAGING/RADIOLOGY/X RAY RESULTS ORDER 02/04/2022 5:45 PM CDT HGB HCT PANEL AM Draw 02/02/2022 1:58 AM CDT S/P total knee arthroplasty, left OK TOTAL KNEE REPLACEMENT 02/01/2022 7:08 AM CDT Diagnosis unknown Special Needs NEEDS [employer]W--REP. (STEFAN Manuel # [phone]) NOTIFIED BY SURGEON PER OFFICE (DENZEL)--10/23 KW Case confirmed with Stefan Lucia 01-25-2022-MAB documented in this encounter Results * CARDIAC RHYTHM STRIP ORDER (02/05/2022 12:57 AM CDT) Narrative 02/05/2022 12:57 AM CDT Ordered by an unspecified provider. Scanned Document CARDIAC SERVICES ORD ERABLES * IMAGING RADIOLOGY XRAY RESULTS ORDER (02/04/2022 5:45 PM CDT) Anatomical Region Laterality Modality Other Narrative 02/04/2022 5:45 PM CDT Ordered by an unspecified provider. Scanned Document IMAGING * (ABNORMAL) HGB HCT PANEL (02/02/2022 1:58 AM CDT) [facility] Hemoglobin 9.1(L) 12.0 - 15.6 gm/dL 02/02/2022 3:26 AM CDT [facility] Hematocrit 27.7(L) 35.9 - 45.5 % 02/02/2022 3:26 AM CDT [facility] Blood BLOOD SPECIMEN / Unknown Lab Venipuncture / Unknown 02/02/2022 1:58 AM CDT 02/02/2022 3:14 AM CDT Kevin Britton MD LAB - HEMATOLOGY OR DERABLES Performing Organization Address City/State/[facility] Co de Phone Number [facility] [address] [place] [address] documented in this encounter Visit Diagnoses Diagnosis S/P total knee arthroplasty, left- Primary S/P total knee arthroplasty, left Diagnosis unknown Other unknown and unspecified cause of morbidity or mortality documented in this encounter Administered Medications Inactive Administered Medications - up to 3 most recent administrations Medication Order MAR Action Action Date Dose Rate Site 0.9% NaCl infusion ADS Med 1 dose, Starting on Fri02/01/22 at 1541, Until Fri02/01/22 at 1548, Created by cabinet override $ New Bag/Syringe 02/01/2022 3:48 PM CDT 250 mL 0.9% NaCl injection 3 mL 3 mL, Intracatheter, PRN, Other, Starting on Fri02/01/22 at 2051, Until 02/02/22 at 1114 $ Given 02/02/2022 6:20 AM CDT 3 mL $ Given 02/01/2022 8:52 PM CDT 3 mL 0.9% NaCl irrigation 1,000 mL with povidone-iodine (Betadine) 35 mL irrigation PRN, Starting on Fri02/01/22 at 0904, Until Fri02/01/22 at 0916, Intra-op $ Given 02/01/2022 9:04 AM CDT 1,035 mL Operative Site acetaminophen (Tylenol) tablet 1,000 mg 1,000 mg, Oral, ONCE, 1 dose, On Fri02/01/22 at 0545, Patient preference for lesser PRN pain meds may be honored when the patient requests a less strong medication, a lower dose, or a less intrusive route of administration when the lesser drug, dose and route have been ordered for the patient. This patient request must be documented in the MAR., Pre-op $ Given 02/01/2022 6:16 AM CDT 1,000 mg acetaminophen (Tylenol) tablet 650 mg 650 mg, Oral, EVERY 6 HOURS, First dose on Fri02/01/22 at 1200, Until Discontinued, Patient preference for lesser PRN pain meds may be honored when the patient requests a less strong medication, a lower dose, or a less intrusive route of administration when the lesser drug, dose and route have been ordered for the patient. This patient request must be documented in the MAR. $ Given 02/02/2022 6:26 AM CDT 650 mg $ Given 02/02/2022 12:32 AM CDT 650 mg $ Given 02/01/2022 5:09 PM CDT 650 mg aspirin chew tablet 81 mg 81 mg, Oral, 2 TIMES DAILY, First dose on Fri02/01/22 at 1115, Until Discontinued $ Given 02/02/2022 8:43 AM CDT 81 m g $ Given 02/01/2022 8:42 PM CDT 81 mg $ Given 02/01/2022 12:03 PM CDT 81 mg bupivacaine 0.25% - EPINEPHrine 1:200,000 (PF) injection PRN, Starting on Fri02/01/22 at 0904, Until Fri02/01/22 at 0916, Intra-op $ Given 02/01/2022 9:04 AM CDT 30 mL Ope rative Site calcium tablet 500 mg 500 mg, Oral, DAILY WITH FOOD, First dose on Fri02/01/22 at 1115, Until Discontinued $ Given 02/02/2022 8:44 AM CDT 500 mg $ Given 02/01/2022 12:03 PM CDT 500 mg ceFAZolin (Ancef) 2 g in 0.9% NaCl IV 50 mL IVPB 2 g, at 100 mL/hr, Intravenous, EVERY 8 HOURS, 3 doses, First dose on Fri02/01/22 at 1530, Last dose on Fri02/02/22 at 0730, Indication for anti-infective therapy: Surgical prophylaxis $ New Bag/Syringe 02/02/2022 6:30 AM CDT 2 g 100 mL/hr $ New Bag/Syringe 02/02/2022 12:36 AM CDT 2 g 100 m L/hr $ New Bag/Syringe 02/01/2022 3:51 PM CDT 2 g 100 mL /hr celecoxib (CeleBREX) capsule 100 mg 100 mg, Oral, PRE-OP ONCE, 1 dose, On Fri02/01/22 at 0600, Patient preference for lesser PRN pain meds may be honored when the patient requests a less strong medication, a lower dose, or a less intrusive route of administration when the lesser drug, dose and route have been ordered for the patient. This patient request must be documented in the MAR. $ Given 02/01/2022 6:17 AM CDT 100 m g celecoxib (CeleBREX) capsule 100 mg 100 mg, Oral, 2 TIMES DAILY, First dose on Fri02/01/22 at 1115, Until Discontinued, Patient preference for lesser PRN pain meds may be honored when the patient requests a less strong medication, a lower dose, or a less intrusive route of administration when the lesser drug, dose and route have been ordered for the patient. This patient request must be documented in the MAR. $ Given 02/02/2022 8:44 AM CDT 100 m g $ Given 02/01/2022 8:42 PM CDT 100 mg $ Given 02/01/2022 12:03 PM CDT 100 mg docusate sodium (Colace) capsule 100 mg 100 mg, Oral, DAILY, First dose on Fri02/01/22 at 1115, Until Discontinued $ Given 02/02/2022 8:44 AM CDT 100 mg $ Given 02/01/2022 12:03 PM CDT 100 mg famotidine (Pepcid) tablet 20 mg 20 mg, Oral, DAILY, First dose on Fri02/01/22 at 1115, Until Discontinued $ Given 02/02/2022 8:44 AM CDT 20 mg $ Given 02/01/2022 12:03 PM CDT 20 mg fentaNYL (PF) (Sublimaze) injection 50 mcg 50 mcg, Intravenous, EVERY 5 MIN PRN, Mild Pain, Starting on Fri02/01/22 at 0917, Until Fri02/01/22 at 1044, Maximum total of 4 doses. If patient [...] documented in the MAR., PACU $ Given 02/01/2022 9:58 AM CDT 50 mcg gentamicin (Garamycin) 180 mg in 0.9% NaCl IV 100 mL IVPB 180 mg, at 200 mL/hr, Intravenous, PRE-OP ONCE, 1 dose, On Fri02/01/22 at 0630, 40-49 k mg 50-59: 200 60-69: 240 70-79: 280 80-89: 320 90-99 360 100+ 400 - if renal disease, half dose, Indication for anti-infective therapy: Surgical prophylaxis $ New Bag/Syringe 02/01/2022 6:32 AM CDT 180 mg 200 mL/hr hydroCHLOROthiazide (Hydrodiuril) tablet 12.5 mg 12.5 mg, Oral, DAILY, First dose on Fri02/02/22 at 0900, Until Discontinued $ Given 02/02/2022 8:43 AM CDT 12.5 mg lactated ringers infusion at 20 mL/hr, Intravenous, PRE-OP CONTINUOUS, Starting on Fri02/01/22 at 0545, Until Fri02/01/22 at 0548, Pre-op $ New Bag/Syringe 02/01/2022 6:32 AM CDT 20 mL/hr losartan (Cozaar) tablet 50 mg 50 mg, Oral, DAILY, First dose on 02/02/22 at 0900, Until Discontinued $ Given 02/02/2022 8:44 AM CDT 50 mg ondansetron (disintegrating) (Zofran ODT) tablet 4 mg 4 mg, Oral, EVERY 6 HOURS PRN, Nausea/Vomiting, Starting on Fri02/01/22 at 1103, Until 02/02/22 at 1114, Dissolved orally on tongue Dissolved orally on tongue $ Given 02/02/2022 9:44 AM CDT 4 mg oxyCODONE (immediate release) (Roxicodone) tablet 10 mg 10 mg, Oral, EVERY 4 HOURS PRN, Severe Pain, Starting on Fri02/01/22 at 1103, Until 02/02/22 at 1114, Patient preference for lesser PRN pain meds may be honored when the patient requests a less strong medication, a lower dose, or a less intrusive route of administration when the lesser drug, dose and route have been ordered for the patient. This patient request must be documented in the MAR. $ Given 02/02/2022 7:22 AM CDT 10 mg $ Given 02/02/2022 1:49 AM CDT 10 mg $ Given 02/01/2022 8:43 PM CDT 10 mg oxyCODONE (immediate release) (Roxicodone) tablet 5 mg 5 mg, Oral, EVERY 4 HOURS PRN, Moderate Pain, Starting on Fri02/01/22 at 1103, Until 02/02/22 at 1114, Patient preference for lesser PRN pain meds may be honored when the patient requests a less strong medication, a lower dose, or a less intrusive route of administration when the lesser drug, dose and route have been ordered for the patient. This patient request must be documented in the MAR. polyethylene glycol 3350 (Miralax) packet 17 g 17 g, Oral, DAILY, First dose on Fri02/01/22 at 1115, Until Discontinued, Mix in 8 ounces of water, juice, soda, coffee or tea prior to administration $ Given 02/02/2022 8:42 AM CDT 17 g $ Given 02/01/2022 12:03 PM CDT 17 g tamoxifen (Nolvadex) tablet 20 mg 20 mg, Oral, DAILY, First dose on 02/02/22 at 0900, Until Discontinued $ Given 02/02/2022 8:43 AM CDT 20 mg vancomycin (Vancocin) 1 g in 0.9% NaCl irrigation 3,000 mL irrigation PRN, Starting on Fri02/01/22 at 0904, Until Fri02/01/22 at 0916, Intra-op $ Given 02/01/2022 9:04 AM CDT 3,000 mL Operative Site vancomycin (Vancocin) injection PRN, Starting on Fri02/01/22 at 0904, Until Fri02/01/22 at 0916, Intra-op $ Given 02/01/2022 9:04 AM CDT 1,000 mg Operative Site vitamin D3 (Cholecalciferol) 25 MCG (1000 UNITS) tablet 2,000 Units 2,000 Units, Oral, DAILY, First dose on Fri02/01/22 at 1115, Until Discontinued, 1000 units = 25 mcg $ Given 02/02/2022 8:43 AM CDT 2,000 Units $ Given 02/01/2022 12:03 PM CDT 2,000 Units documented in this encounter Active and Recently Administered Medications Times are shown in CDT. Scheduled Medication Order 01/31/2022 02/01/2022 02/02/2022 acetaminophen (Tylenol) tablet 1,000 mg (COMPLETED) 1,000 mg, Oral, ONCE, 1 dose, On Fri02/01/22 at 0545, Patient preference for lesser PRN pain meds may be honored when the patient requests a less strong medication, a lower dose, or a less intrusive route of administration when the lesser drug, dose and route have been ordered for the patient. This patient request must be documented in the MAR., Pre-op 0616 ($ Given - Provider: Cindy Charles RN) acetaminophen (Tylenol) tablet 650 mg 650 mg, Oral, EVERY 6 HOURS, First dose on Fri02/01/22 at 1200, Until Discontinued, Patient preference for lesser PRN pain meds may be honored when the patient requests a less strong medication, a lower dose, or a less intrusive route of administration when the lesser drug, dose and route have been ordered for the patient. This patient request must be documented in the MAR. 1203 ($ Given - Provider: Jaz Macias RN)1709 ($ Given - Provider: Wendie Blunt RN - Comment: cosign by Wendie Blunt) 0032 ($ Given - Provider: Sigrid Sánchez RN)0626 ($ Given - Provider: Sigrid Sánchez RN) aspirin chew tablet 81 mg 81 mg, Oral, 2 TIMES DAILY, First dose on Fri02/01/22 at 1115, Until Discontinued 1203 ($ Given - Provider: Jaz Macias RN)2042 ($ Given - Provider: Sigrid Sánchez RN) 0843 ($ Given - Provider: Wendie Blunt RN) calcium tablet 500 mg 500 mg, Oral, DAILY WITH FOOD, First dose on Fri02/01/22 at 1115, Until Discontinued 1203 ($ Given - Provider: Jaz Macias RN) 0844 ($ Given - Provider: Wendie Blunt RN) ceFAZolin (Ancef) 2 g in 0.9% NaCl IV 50 mL IVPB (COMPLETED) 2 g, at 100 mL/hr, Intravenous, EVERY 8 HOURS, 3 doses, First dose on Fri02/01/22 at 1530, Last dose on Fri02/02/22 at 0730, Indication for anti-infective therapy: Surgical prophylaxis 1551 ($ New Bag/Syringe - Provider: Jaz Macias RN)1621 (Stopped - Provider: Wendie Blunt RN) 0036 ($ New Bag/Syringe - Provider: Sigrid Sánchez RN)0106 (Stopped - Provider: Sigrid Sánchez RN)0630 ($ New Bag/Syringe - Provider: Sigrid Sánchez RN)0700 (Stopped - Provider: Wendie Blunt RN) ceFAZolin (Ancef) 2,000 mg in 50 ml IVPB (COMPLETED) 2,000 mg (2 g), at 100 mL/hr, Intravenous, PRE-OP ONCE, 1 dose, On Fri02/01/22 at 0600, Indication for anti-infective therapy: Surgical prophylaxis 0723 ($ Given - Provider: Arabella Dunbar APRN-DULCE)0736 ($ Given - Provider: Arabella Dunbar APRN-DULCE) celecoxib (CeleBREX) capsule 100 mg (COMPLETED) 100 mg, Oral, PRE-OP ONCE, 1 dose, On Fri02/01/22 at 0600, Patient preference for lesser PRN pain meds may be honored when the patient requests a less strong medication, a lower dose, or a less intrusive route of administration when the lesser drug, dose and route have been ordered for the patient. This patient request must be documented in the MAR. 0617 ($ Given - Provider: Cindy Charles RN) celecoxib (CeleBREX) capsule 100 mg 100 mg, Oral, 2 TIMES DAILY, First dose on Fri02/01/22 at 1115, Until Discontinued, Patient preference for lesser PRN pain meds may be honored when the patient requests a less strong medication, a lower dose, or a less intrusive route of administration when the lesser drug, dose and route have been ordered for the patient. This patient request must be documented in the MAR. 1203 ($ Given - Provider: Jaz Macias RN)2042 ($ Given - Provider: Sigrid Sánchez RN) 0844 ($ Given - Provider: Wendie Blunt RN) docusate sodium (Colace) capsule 100 mg 100 mg, Oral, DAILY, First dose on Fri02/01/22 at 1115, Until Discontinued 1203 ($ Given - Provider: Jaz Macias RN) 0844 ($ Given - Provider: Wendie Blunt RN) famotidine (Pepcid) tablet 20 mg 20 mg, Oral, DAILY, First dose on Fri02/01/22 at 1115, Until Discontinued 1203 ($ Given - Provider: Jaz Macias RN) 0844 ($ Given - Provider: Wendie Blunt RN) gentamicin (Garamycin) 180 mg in 0.9% NaCl IV 100 mL IVPB (COMPLETED) 180 mg, at 200 mL/hr, Intravenous, PRE-OP ONCE, 1 dose, On Fri02/01/22 at 0630, 40-49 k mg 50-59: 200 60-69: 240 70-79: 280 80-89: 320 90-99 360 100+ 400 - if renal disease, half dose, Indication for anti-infective therapy: Surgical prophylaxis 0632 ($ New Bag/Syringe - Provider: Cindy Charles RN)0702 (Stopped - Provider: Jaz Macias RN) hydroCHLOROthiazide (Hydrodiuril) tablet 12.5 mg(Linked Group 1) 12.5 mg, Oral, DAILY, First dose on Fri02/02/22 at 0900, Until Discontinued 0843 ($ Given - Provider: Wendie Blunt RN) losartan (Cozaar) tablet 50 mg(Linked Group 1) 50 mg, Oral, DAILY, First dose on Fri02/02/22 at 0900, Until Discontinued 0844 ($ Given - Provider: Wendie Blunt RN) polyethylene glycol 3350 (Miralax) packet 17 g 17 g, Oral, DAILY, First dose on Fri02/01/22 at 1115, Until Discontinued, Mix in 8 ounces of water, juice, soda, coffee or tea prior to administration 1203 ($ Given - Provider: Jaz Macias RN) 0842 ($ Given - Provider: Wendie Blunt RN) tamoxifen (Nolvadex) tablet 20 mg 20 mg, Oral, DAILY, First dose on Fri02/02/22 at 0900, Until Discontinued 0843 ($ Given - Provider: Wendie Blunt RN) tranexamic acid (Cyklokapron) 1,000 mg in 0.9% NaCl IV 110 mL bolus (COMPLETED) 1,000 mg, at 220 mL/hr, Intravenous, PRE-OP ONCE, 1 dose, On Fri02/01/22 at 0600, Give 1 gram of TXA prior to surgical incision, give the remaining 1 gram TXA during closure of the surgical wound, or two hours after the first dose, whichever occurs first. Do not inject more rapidly than 1 mL/min to avoid hypotension. 0740 ($ New Bag/Syringe - Provider: VIRAJ Hickey)0745 ($ Bolus New Bag - Provider: VIRAJ Hickey) vitamin D3 (Cholecalciferol) 25 MCG (1000 UNITS) tablet 2,000 Units 2,000 Units, Oral, DAILY, First dose on Fri02/01/22 at 1115, Until Discontinued, 1000 units = 25 mcg 1203 ($ Given - Provider: Jaz Macias RN) 0843 ($ Given - Provider: Wendie Blunt RN) Continuous Medication Order 01/31/2022 02/01/2022 02/02/2022 lactated ringers infusion (CANCELED) at 20 mL/hr, Intravenous, PRE-OP CONTINUOUS, Starting on Fri02/01/22 at 0545, Until Fri02/01/22 at 0548, Pre-op 0632 ($ New Bag/Syringe - Provider: Cindy Charles RN) PRN Medication Order 01/31/2022 02/01/2022 02/02/2022 0.9% NaCl injection 3 mL 3 mL, Intracatheter, PRN, Other, Starting on Fri02/01/22 at 2051, Until 02/02/22 at 1114 2051 ($ Given - Provider: Sigrid Sánchez RN) 0620 ($ Given - Provider: Sigrid Sánchez RN) 0.9% NaCl irrigation 1,000 mL with povidone-iodine (Betadine) 35 mL irrigation (CANCELED) PRN, Starting on Fri02/01/22 at 0904, Until Fri02/01/22 at 0916, Intra-op 0904 ($ Given - Provider: Kevin Britton MD) bupivacaine 0.25% - EPINEPHrine 1:200,000 (PF) injection (CANCELED) PRN, Starting on Fri02/01/22 at 0904, Until Fri02/01/22 at 0916, Intra-op 0904 ($ Given - Provider: Kevin Britton MD) calcium carbonate (Tums) chew tablet 1 tablet 1 tablet, Oral, 2 TIMES DAILY PRN, Heartburn, Starting on Fri02/01/22 at 1103, Until 02/02/22 at 1114 diphenhydrAMINE (Benadryl) capsule 25 mg 25 mg, Oral, EVERY 4 HOURS PRN, Insomnia, Itching, Allergies, Nausea/Vomiting, Starting on Fri02/01/22 at 1103, Until 02/02/22 at 1114 fentaNYL (PF) (Sublimaze) injection 50 mcg (CANCELED) 50 mcg, Intravenous, EVERY 5 MIN PRN, Mild Pain, Starting on Fri02/01/22 at 0917, Until Fri02/01/22 at 1044, Maximum total of 4 doses. If patient [...] must be documented in the MAR., PACU 0958 ($ Given - Provider: Leila Avila RN) melatonin tablet 3 mg 3 mg, Oral, AT BEDTIME PRN, insomnia, Starting on Fri02/01/22 at 1103, Until 02/02/22 at 1114 ondansetron (disintegrating) (Zofran ODT) tablet 4 mg 4 mg, Oral, EVERY 6 HOURS PRN, Nausea/Vomiting, Starting on Fri02/01/22 at 1103, Until 02/02/22 at 1114, Dissolved orally on tongue Dissolved orally on tongue 0944 ($ Given - Provider: Wendie Blunt RN) oxyCODONE (immediate release) (Roxicodone) tablet 10 mg(Linked Group 2) 10 mg, Oral, EVERY 4 HOURS PRN, Severe Pain, Starting on Fri02/01/22 at 1103, Until 02/02/22 at 1114, Patient preference for lesser PRN pain meds may be honored when the patient requests a less strong medication, a lower dose, or a less intrusive route of administration when the lesser drug, dose and route have been ordered for the patient. This patient request must be documented in the MAR. 1203 ($ Given - Provider: Jaz Macias RN)1547 ($ Given - Provider: Jaz Macias RN)2043 ($ Given - Provider: Sigrid Sánchez RN) 0149 ($ Given - Provider: Sigrid Sánchez RN)0722 ($ Given - Provider: Wendie Blunt, SABRINA) oxyCODONE (immediate release) (Roxicodone) tablet 5 mg(Linked Group 2) 5 mg, Oral, EVERY 4 HOURS PRN, Moderate Pain, Starting on Fri02/01/22 at 1103, Until 02/02/22 at 1114, Patient preference for lesser PRN pain meds may be honored when the patient requests a less strong medication, a lower dose, or a less intrusive route of administration when the lesser drug, dose and route have been ordered for the patient. This patient request must be documented in the JUL. 1203 (See Alternative - Provider: Jaz Macias, RN)1547 (See Alternative - Provider: Jaz Macias RN)204 (See Alternative - Provider: Sigrid Sánchez RN) 0149 (See Alternative - Provider: Sigrid Sánchez RN)0722 (See Alternative - Provider: Wendie Blunt, SABRINA) vancomycin (Vancocin) 1 g in 0.9% NaCl irrigation 3,000 mL irrigation (CANCELED) PRN, Starting on Fri02/01/22 at 0904, Until Fri02/01/22 at 0916, Intra-op 0904 ($ Given - Provider: Kevin Britton MD) vancomycin (Vancocin) injection (CANCELED) PRN, Starting on Fri02/01/22 at 0904, Until Fri02/01/22 at 0916, Intra-op 0904 ($ Given - Provider: Kevin Britton MD - Comment: sprinkled) No Frequency Medication Order 01/31/2022 02/01/2022 02/02/2022 0.9% NaCl infusion ADS Med (COMPLETED) 1 dose, Starting on Fri02/01/22 at 1541, Until Fri02/01/22 at 1548, Created by cabinet override 1548 ($ New Bag/Syringe - Provider: Jaz Macias RN) Linked Groups Order Group 1: losartan (Cozaar) tablet 50 mgJump to med 50 mg, Oral, DAILY, First dose on 02/02/22 at 0900, Until Discontinued And hydroCHLOROthiazide (Hydrodiuril) tablet 12.5 mgJump to med 12.5 mg, Oral, DAILY, First dose on 02/02/22 at 0900, Until Discontinued Group 2: oxyCODONE (immediate release) (Roxicodone) tablet 5 mgJump to med 5 mg, Oral, EVERY 4 HOURS PRN, Moderate Pain, Starting on Fri02/01/22 at 1103, Until 02/02/22 at 1114, Patient preference for lesser PRN pain meds may be honored when the patient requests a less strong medication, a lower dose, or a less intrusive route of administration when the lesser drug, dose and route have been ordered for the patient. This patient request must be documented in the MAR. Or oxyCODONE (immediate release) (Roxicodone) tablet 10 mgJump to med 10 mg, Oral, EVERY 4 HOURS PRN, Severe Pain, Starting on 02/01/22 at 1103, Until 02/02/22 at 1114, Patient preference for lesser PRN pain meds may be honored when the patient requests a less strong medication, a lower dose, or a less intrusive route of administration when the lesser drug, dose and route have been ordered for the patient. This patient request must be documented in the MAR. documented in this encounter Care Teams [employer] Relationship Specialty Start Date End Date Willis Veras MD [address] [place] [address] PCP - General 05/03/21 Cole Ku MD [address] [place] [id number] General Surgery 11/10/20 documented as of this encounter
--- OUTSIDE RECORDS SUMMARY | 2024-04-25 14:02 | XMS_ITS | Encounter Summary ---
Author Organization [facility] Address [address] [place] [address] Care Team Providers Care Anodiser Name Role Phone Cole Ku MD Unavailable Willis Veras MD Primary Care Provider Reason for Visit * Reason Onset Date Comments MEDICATION REFILL 03/08/2022 Encounter Details Date Type Department Care Team (Late st Contact Info) Description 03/08/2022 Refill [facility] [address] [place] [address] Parmjit Weems, DO [address] [address] MEDICATION REFILL Social History Tobacco Use Types [...] st Contact Info) Description 06/02/2024 10:30 AM RELATIONS COORDINATOR Office Visit [facility] - Orthopedic Surgery [address] [place] [phone] Kevin Britton MD [address] [facility] [address] [place] [address] 08/10/2024 1:00 PM CDT Office Visit [facility] - MANAGER CRISIS [address] [facility] [address] [place] [phone] Daja Mir MD [address] [facility] [place] [address] 10/26/2024 1:00 PM CDT Office Visit [facility] - Hematology/Oncology [address] [place] [phone] Elizabeth Garcia MD [address] [facility] 3 [place] [address] 01/17/2025 12:30 PM CDT [place] [facility] [place] [address] [place] [address], [facility] [place] [phone] 01/17/2025 1:00 PM CDT Office Visit [facility] - GI [address] [facility], [place] [phone] Marlena Mccoy, WINDOWS VMWARE ENGINEER-SENIOR IT ENGINEER [address] [facility] [address] [place] [address] documented as of this encounter Goals Goal Patient Goal Type Associated Problems Recent Progress Patient-Stated? Author Mobility General On track( 021 9:08 AM RELATIONS COORDINATOR) No Tika Pope, RN Note: Expected [...] left documented in this encounter Care Teams Anodiser Relationship Specialty Start Date End Date Willis Veras MD [address] [place] [address] PCP - General 05/03/21 Cole Ku MD [address] [facility] [address]L [place] [address] General Surgery 11/10/20 documented as of this encounter
--- OUTSIDE RECORDS SUMMARY | 2024-04-25 14:02 | XMS_ITS | Encounter Summary ---
Author Organization [facility] Address [address] [facility] [place] [address] Care Team Providers Care Cloth Boil Off Machine Operator Name Role Phone Cole Ku MD Unavailable Willis Veras MD Primary Care Provider Reason for Visit * Reason Onset Date Comments MEDICATION REFILL 02/14/2022 Encounter Details Date Type Department Care Team (Late st Contact Info) Description 02/14/2022 Refill [facility] [address] [place], [place] [phone] Kevin Britton MD 1031 [facility] [address] [place], [place] [phone] MEDICATION REFILL Social History Tobacco Use Types [...] st Contact Info) Description 06/02/2024 10:30 AM AUDIT CONSULTANT Office Visit [facility] - Orthopedic Surgery [address] [place] [phone] Kevin Britton MD 1031 [facility] [address] [place] [address] 08/10/2024 1:00 PM CDT Office Visit [facility] - MEMBERSHIP SALES REPRESENTATIVE [address] [facility] [address] [place] [phone] Daja Mir MD [address] [facility] [address] 10/26/2024 1:00 PM CDT Office Visit [facility] - Hematology/Oncology [address] [place] [phone] Elizabeth Garcia MD [address] [facility] 3 [place] [address] 01/17/2025 12:30 PM CDT Procedure visit [facility] [place] [address] [facility], [place] [phone] 01/17/2025 1:00 PM CDT Office Visit [facility] - GI [address] [facility], [place] [phone] Marlena Mccoy, UTILIZATION REVIEW SPECIALIST-CORROSION CONTROL FITTER [address] [facility] [address] [place] [address] documented as of this encounter Goals Goal Patient Goal Type Associated Problems Recent Progress Patient-Stated? Author Mobility General On track( 021 9:08 AM AUDIT CONSULTANT) No Tika Ppoe, RN Note: Expected end date: 05/05/2019 The [...] left documented in this encounter Care Teams Cloth Boil Off Machine Operator Relationship Specialty Start Date End Date Willis Veras MD [address] [place] [address] PCP - General 05/03/21 Cole Ku MD [address] [facility] [address] [place] [address] General Surgery 11/10/20 documented as of this encounter
--- OUTSIDE RECORDS SUMMARY | 2024-04-25 14:02 | XMS_ITS | Encounter Summary ---
Author Organization [facility] Address [address] [place] [address] Care Team Providers Care Sports Therapist Name Role Phone Cole Ku MD Unavailable Willis Veras MD Primary Care Provider Reason for Visit * Auth/Cert Specialty Diagnoses / Procedures Referred By Americo t Referred To Contact Diagnoses Diagnosis unknown Diagnosis unknown [R69] Procedures ARTHROPLASTY TOTAL KNEE Referral ID Status Reason Start Date Expiration Date Visits Re quested Visits Authorized [id number] 1 1 Encounter Details Date Type Department Care Team (Latest Contact Info) Description 02/01/2022 5:28 AM CDT - 02/02/2022 10:14 AM CDT Hospital Encounter [facility] 2 ORTHO/NEW VIS [address] [place] [address] Kevin Britton MD [address] [address] Surgery General Discharge Disposition: Home or Self [...] Sign Reading Time Taken Comments Blood Pressure 110/65 02/02/2022 5:09 AM CDT Pulse 83 02/02/2022 5:09 AM CDT Temperature 36.8 ??C (98.3 ??F) 02/02/2022 5:09 AM CD T Respiratory Rate 20 02/02/2022 5:09 AM CDT Oxygen Saturation 98% 02/02/2022 5:09 AM CDT Inhaled Oxygen Concentration - - [...] Surgery Discharge Summary Patient ID: Milagros Torres [id number] 56 year old 1965 Admit date: 02/01/2022 [...] Orthopedic Surgery Why: 4 weeks Contact information: [address] [place] [address] Discharge Instructions Please give the following instructions [...] tub soaks. No scrubbing around incision. ?? [place] to be removed on post op day 14 by home care nurse ?? Call [phone] to schedule the first follow-up appointment with [...] No tub soaks. No scrubbing around incision. 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 Brooke OTR/L * Rosi Wodoy RN - 02/02/2022 10:14 AM CDT Case Management Progress Note Discharge Summary Discharge date: 02/02/22 Patient Disposition: Home with [facility] for home PT/OT. Referrals sent and pending acceptance. Continued Care and Services - Discharged on 02/02/2022 Admission date: 02/01/2022 - Discharge disposition: Home or Self Group Home Medical Care Service Provider Request Status Selected Services Address Phone Fax Patient [facility] Pending - Request Sent N/A [address] [phone] -- [facility]ALTH [facility] Pending - Request Sent N/A [address] [facility] [address] -- [facility] Pending - Request Sent N/A [address] [facility] [address] [phone] -- [facility] Pending - Request Sent N/A [address] [facility] [id number] -- [facility] Declined N/A [address] [address] [phone] -- Internal Comment last updated by Milagros Peterson, SABRINA 02/02/2022 1501 Outside of service area Basic [...] have money to get more.: Never true [employer] Resources Provided: Not offered to the patient Medication affordability concerns: Octavia: Rosi Woody RN Phone: [phone] Care Coordination Nurse Fountain Pen Turner * Joan Mares, SABRINA - 02/02/2022 10:14 AM CDT Patient provided list of in-network home health care. Home Health Referrals have been initiated based on patient's choice: Continued Care and Services - Discharged on 02/02/2022 Admission date: 02/01/2022 - Discharge disposition: Home or Self Group Home Medical Care Service Provider Request Status Selected Services Address Phone Fax Patient Preferred [facility] Accepted N/A [address] [phone] -- Internal Comment last updated by Joan Mares, RN 02/04/2022 1038 Yo[facility] can take her mid oct. Will need to call to confirm. [facility] Declined No payer/insurance N/A [address] [address] [phone] -- [facility] Declined no staffing N/A [address] [facility] [address] [phone] -- [facility] Declined No payer/insurance N/A [address] [facility] [address] [phone] -- [facility] Declined N/A [address] [address] [phone] -- Internal Comment last updated by Milgaros Peterson RN 02/02/2022 1501 Outside of service [...] place and intact pre and post visit. Shara BENNETT, notified of patient's performance/location end of session. PT Kathie Brar, present to assist with chair follow to PT dept. Please refer to the Filed Flowsheet for further details. Refer to Plan of Care for PT goals. RECOMMENDATIONS/PLAN: Recommend discharge home with HHPT when medically stable. If this is the last Physical Therapy visit, this note serves as the discharge summary. ascom [phone] * Jocelyn Gonzalez MD - 02/02/2022 6:07 AM CDT [facility] Orthopedic Surgery Daily Progress Note Milagros Torres, 56 year old, female : 1965 CSN: [id number] Primary Care Physician: Willis Veras MD - [...] 14 by home care nurse ?? Call [phone] to schedule the first follow-up appointment with Dr. Britton in 4 week(s) or for any questions Jocelyn Gonzalez MD 02/02/2022 6:07 AM Pager #[phone]. After 5pm and weekends please page ortho resident director recreation center. [facility] Orthopedic Surgery office contact information: [address], [place], [place] [id number] * Jaz Macias RN - 02/01/2022 5:00 [...] 3:52 PM CDT PT/OT recommending home with [facility]. HHC referrals sent and pending acceptance. Patient has [facility]. Continued Care and Services - Admitted Since 02/01/2022 Home Medical Care Service Provider Request Status Selected Services Address Phone Fax Patient [facility] Pending - Request Sent N/A [address] [phone] -- [facility] Pending - Request Sent N/A [address] [facility] [address] [phone] -- [facility] Pending - Request Sent N/A [address] [facility] [address] [phone] -- [facility] Pending - Request Sent N/A [address] [facility] [address] [phone] -- [facility] Pending - Request Sent N/A [address] [address] [phone] -- Rosi oWody, Fountain Pen Turner RN [phone] 02/01/2022 * Ree Ge, PT - 02/01/2022 3:11 PM CDT Physical Therapy Evaluation. PT orders received, chart reviewed for diagnosis and medical systems review.. Nursing consents for PT. Explained purpose of PT and patient consented to participate in therapy. PPE worn by staff: gloves;mask - procedural Pt presented to [facility] for elective left TKR due to DJD. 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 Will continue to follow. For any questions or needs please contact: Fountain Pen Turner Name/Phone number: Rosi Woody RN [phone] * Ean Tabares IV, MD - 02/01/2022 [...] please page myself (Dr. Tabares) through the hay stacker operator or Pain Doctoron from 6AM-5PM on weekdays. After 5PM or on weekends, please page ortho director recreation center via Phlor[employer]. Thank you! Please give the following instructions [...] tub soaks. No scrubbing around incision. ?? [place] to be removed on post op day 14 by home care nurse ?? Call [phone] to schedule the first follow-up appointment with Dr. Britton in 4 week(s) or for any questions Ean Tabares IV, MD 02/01/2022 9:19 AM documented in this encounter H&P Notes * Ean Tabares IV, MD - 02/01/2022 5:45 AM CDT Orthopedic Surgery H&P Note Milagros Torres, 56 year old, female : 1965 CSN: [id number] History Patient seen and examined this AM. [...] tablet 6 Vitamin D3, cholecalciferol, 50 MCG (1999) tablet Take 1 tablet by mouth once [...] - Lung Mother Cancer - Breast Sister Bernadette Torres needs to be admitted for 1-2 [...] 12:19 PM CDTAssociated Order(s): IP CONSULT TO MANAGER HEMATOLOGY Friday note. SW acknowledges referrals to assist with discharge planning once SW needs are identified (dischargeneeds are TBD at this time).. ORI Gibson 02/01/2022 12:20 PM [phone]. * Rosi Wodoy RN - 02/01/2022 11:15 AM CDTAssociated Order(s): IP CONSULT TO CASE MANAGEMENT This CM acknowledges consult for discharge planning. [facility] referral sent and pending acceptance. Walker ordered if needed. CM following. Rosi Woody, Fountain Pen Turner RN [phone] 02/01/2022 * Rosa Elena Hernandez - 02/01/2022 10:35 AM CDT Patient is an advance ortho patient, due to patient living out of [facility] service area, home care hasbeen set up with [facility] Thank you, Rosa Elena Hernandez [facility] at [facility] Admissions Associate [phone] direct number [phone] opt 1 main number documented in this encounter OR Notes * Brief Op Note - Ean Tabares IV, MD - 02/01/2022 7:53 AM CDT Brief Op Note Procedure: TOTAL KNEE ARTHROPLASTY Patient Name: Milagros Torres Date of Service: 02/01/2022 Pre-Op Diagnosis: Left knee arthritis Post-Op Diagnosis: same Surgeon(s) and Role: * Kevin Britton MD - Primary Material Lister(s): Ean Tabares MD resident assisting Anesthesia Type: general ETT Complications: none Findings: Left total knee arthroplasty performed EBL: blood loss of 200 ml Urine Output : none IV Fluid Intake: see anaesthesia note Drains: * No LDAs found * Specimen(s): * No specimens in log * Implant(s): Implant Name Type Inv. Item Serial No. Senior Research Consultant Lot No. LRB No. Used Action Ins Tib 3-4 11Mm Kn Xlpe Dsh Legion Ins Tib 3-4 11Mm Kn Xlpe Dsh Legion [employer] [id number] Left 1 Implanted Cmpnt Fem Kn Lt 5 Crcte Rtn Legion Rondon Cmpnt Fem Kn Lt 5 Crcte Rtn Legion Rondon [employer] [id number] Left 1 Implanted Stem Tib 55Mm 18Mm Prfx Mtphsl Kn Stem Tib 55Mm 18Mm Prfx Mtphsl Kn [employer] [id number] Left 1 Implanted Bsplt Tib Legion 4 Kn Lt Rondon Por Bsplt Tib Legion 4 Kn Lt Rondon Por [employer] [id number] Left 1 Implanted Screw Bsplt 25Mm 6.5Mm Gns2 Kn Tib Por Screw Bsplt 25Mm 6.5Mm Gns2 Kn Tib Por [employer] [id number] Left 1 Implanted Screw Bsplt 20Mm 6.5Mm Gns2 Kn Tib Por Screw Bsplt 20Mm 6.5Mm Gns2 Kn Tib Por [employer] [id number] Left 1 Implanted Screw 6.5Mm 30Mm Sphrcl Head Hip Actb Screw 6.5Mm 30Mm Sphrcl Head Hip Actb [employer] [id number] Left 1 Implanted Screw Bsplt 30Mm 6.5Mm Gns2 Kn Tib Por Screw Bsplt 30Mm 6.5Mm Gns2 Kn Tib Por [employer] [id number] Left 1 Implanted Ean Tabares IV, MD * Operative - Kevin Britton MD - 02/01/2022 7:53 AM CDT DATE OF SURGERY: 02/01/2022 PREOPERATIVE DIAGNOSIS: Severe varus osteoarthritis, left knee. POSTOPERATIVE DIAGNOSIS: Severe varus osteoarthritis, left knee. PROCEDURES PERFORMED: 1. Left total knee arthroplasty. SURGEON: Kevin Britton M.D. POCKETED SPRING ASSEMBLER: Ean Tabares MD ANESTHESIA: General endotracheal with [...] COMPLICATIONS: None ESTIMATED BLOOD LOSS: 200cc IMPLANTS: Commodore chrome uncemented femoral component and titanium uncemented tibial component. Implant Name Type Inv. Item Serial No. Senior Research Consultant Lot No. LRB No. Used Action Ins Tib 3-4 11Mm Kn Xlpe Dsh [facility] Ins Tib 3-4 11Mm Kn Xlpe Dsh [facility] [employer] [id number] Left 1 Implanted Cmpnt Fem Kn Lt 5 Crcte Rtn Legion Rondon Cmpnt Fem Kn Lt 5 Crcte Rtn Legion Rondon [employer] [id number] Left 1 Implanted Stem Tib 55Mm 18Mm Prfx Mtphsl Kn Stem Tib 55Mm 18Mm Prfx Mtphsl Kn [employer] [id number] Left 1 Implanted Bsplt Tib Legion 4 Kn Lt Rondon Por Bsplt Tib Legion 4 Kn Lt Rondon Por [employer] [id number] Left 1 Implanted Screw Bsplt 25Mm 6.5Mm Gns2 Kn Tib Por Screw Bsplt 25Mm 6.5Mm Gns2 Kn Tib Por [employer] [id number] Left 1 Implanted Screw Bsplt 20Mm 6.5Mm Gns2 Kn Tib Por Screw Bsplt 20Mm 6.5Mm Gns2 Kn Tib Por [employer] [id number] Left 1 Implanted Screw 6.5Mm 30Mm Sphrcl Head Hip Actb Screw 6.5Mm 30Mm Sphrcl Head Hip Actb [employer] [id number] Left 1 Implanted Screw Bsplt 30Mm 6.5Mm Gns2 Kn Tib Por Screw Bsplt 30Mm 6.5Mm Gns2 Kn Tib Por [employer] [id number] Left 1 Implanted COUNTS: Sponge and needle counts were correct at the end of procedure and I was present for the entire case. Kevin Britton MD documented in this encounter Plan of Treatment Upcoming Encounters Date Type Department Care Team (Late st Contact Info) Description 06/02/2024 10:30 AM CAD CAM PROGRAMMER Office Visit [facility] - Orthopedic Surgery [facility] [place] [phone] Kevin Britton MD [address] [facility] [address] [place] [address] 08/10/2024 1:00 PM CDT Office Visit [facility] - SWIMMING POOL MAINTENANCE SUPERVISOR 10[address] [facility] [address] [place] [phone] Daja Mir MD [address] [place] [address] 10/26/2024 1:00 PM CDT Office Visit [facility] - Hematology/Oncology [address] [place] [phone] Elizabeth Garcia MD [address] [facility] 3 [place] [address] 01/17/2025 12:30 PM CDT Procedure visit [facility] - GI [address] [place] [phone] 01/17/2025 1:00 PM CDT Office Visit [facility] - GI [address] [place] [phone] Marlena Mccoy, ADVOCACY DIRECTOR-CLOTH CUTTER [address] [place] [address] documented as of this encounter Goals Goal Patient Goal Type Associated Problems Recent Progress Patient-Stated? Author Mobility General On track( 021 9:08 AM CAD CAM PROGRAMMER) No Tika Pope, RN Note: Expected [...] AM CDT S/P total knee arthroplasty, left AR TOTAL KNEE REPLACEMENT 02/01/2022 7:08 AM CDT Diagnosis unknown Special Needs NEEDS RÍOS AND NEPHEW--REP. (STEFAN Manuel # [phone]) NOTIFIED BY SURGEON PER OFFICE (DENZEL)--10/23 KW Case confirmed with Stefan Myers 01-25-2022-[facility] documented in this encounter Results * CARDIAC [...] - 15.6 gm/dL 02/02/2022 3:26 AM CDT [facility] Hematocrit 27.7(L) 35.9 - 45.5 % 02/02/2022 3:26 AM CDT [facility] Blood BLOOD SPECIMEN / Unknown Lab Venipuncture / Unknown 02/02/2022 1:58 AM CDT 02/02/2022 3:14 AM CDT Kevin Britton MD LAB - HEMATOLOGY OR DERABLES Performing Organization Address City/State/[facility] Co de Phone Number [facility] [address] [place] [address] documented in this encounter Visit Diagnoses Diagnosis S/P total knee arthroplasty, left- Primary S/P total knee arthroplasty, left documented in this encounter Administered Medications Inactive [...] Given 02/01/2022 8:52 PM CDT 3 mL acetaminophen (Tylenol) tablet 1,000 mg 1,000 mg, [...] $ Given 02/02/2022 6:26 AM CDT 650 m g $ Given 02/02/2022 12:32 AM CDT 650 mg $ Given 02/01/2022 5:09 PM CDT 650 mg aspirin chew tablet 81 mg 81 mg, Oral, 2 TIMES DAILY, First dose on Fri02/01/22 at 1115, Until Discontinued $ Given 02/02/2022 8:43 AM CDT 81 m g $ Given 02/01/2022 8:42 PM CDT 81 mg $ Given 02/01/2022 12:03 PM CDT 81 mg calcium tablet 500 mg 500 mg, Oral, DAILY WITH FOOD, First dose on Fri02/01/22 at 1115, Until Discontinued $ Given 02/02/2022 8:44 A M CDT 500 mg $ Given 02/01/2022 12:03 [...] Given 02/02/2022 8:43 AM CDT 20 mg vitamin D3 (Cholecalciferol) 25 MCG (1000 UNITS) tablet 2,000 Units 2,000 Units, Oral, DAILY, First dose on Fri02/01/22 at 1115, Until Discontinued, 1000 units = 25 mcg $ Given 02/02/2022 8:43 AM CDT 2,000 Unit s $ Given 02/01/2022 12:03 PM CDT 2,000 [...] prophylaxis 0723 ($ Given - Provider: Arabella Dunabr, ADVOCACY DIRECTOR-PROJECT MANAGEMENT DIRECTOR)0736 ($ Given - Provider: Arabella Dunbar APRN-PROJECT MANAGEMENT DIRECTOR) celecoxib (CeleBREX) capsule 100 mg (COMPLETED) 100 [...] request must be documented in the MAR. 06 ($ Given - Provider: Cindy Charles RN) [...] 1203 ($ Given - Provider: Jaz Macias RN)204 ($ Given - Provider: Sigrid Sánchez RN) 0844 ($ Given - Provider: Wendie Blunt, SABRINA) docusate sodium (Colace) capsule 100 mg 100 mg, Oral, DAILY, First dose on Fri02/01/22 at 1115, Until Discontinued 120 ($ Given - Provider: Jaz Macias RN) 0844 ($ Given - Provider: Wendie Blunt, SABRINA) famotidine (Pepcid) tablet 20 mg 20 mg, Oral, DAILY, First dose on Fri02/01/22 at 1115, Until Discontinued 1203 ($ Given - Provider: Jaz Macias RN) 0844 ($ Given - Provider: Wendie Blunt, SABRINA) gentamicin (Garamycin) 180 mg in 0.9% NaCl [...] dose on 02/02/22 at 0900, Until Discontinued 0843 ($ Given [...] dose on 02/02/22 at 0900, Until Discontinued 0843 ($ Given [...] Hickey)0745 ($ Bolus New Bag - Provider: Arabella C Niehoff, ADVOCACY DIRECTOR-PROJECT MANAGEMENT DIRECTOR) vitamin D3 (Cholecalciferol) 25 MCG (1000 UNITS) tablet 2,000 Units 2,000 Units, Oral, DAILY, First dose on Fri02/01/22 at 1115, Until Discontinued, 1000 units = 25 mcg 1203 ($ Given - Provider: Jaz Macias, RN) 0843 ($ Given - Provider: Wendie Blunt, RN) Continuous Medication Order 01/31/2022 02/01/2022 02/02/2022 lactated ringers infusion (CANCELED) at 20 mL/hr, Intravenous, PRE-OP CONTINUOUS, Starting on Fri02/01/22 at 0545, Until Fri02/01/22 at 0548, Pre-op 0632 ($ New Bag/Syringe - Provider: Cindy Charles, SABRINA) PRN Medication Order 01/31/2022 02/01/2022 02/02/2022 0.9% NaCl injection 3 mL 3 mL, Intracatheter, PRN, Other, Starting on Fri02/01/22 at 2051, Until 02/02/22 at 1114 2051 ($ Given - Provider: Sigrid Sánchez, SABRINA) 0620 ($ Given - Provider: Sigrid Sánchez [...] Sánchez RN)0722 ($ Given - Provider: Wendie Blunt RN) oxyCODONE (immediate release) (Roxicodone) tablet 5 mg(Linked [...] must be documented in the MAR. 1203 (See Alternative - Provider: Jaz Macias, RN)1547 (See Alternative - Provider: Jaz Maicas, RN)2043 (See Alternative - Provider: Sigrid Sánchez, RN) 0149 (See Alternative - Provider: Sigrid Sánchez RN)0722 (See Alternative - Provider: Wendie Blunt RN) vancomycin (Vancocin) 1 g in 0.9% NaCl [...] 1548 ($ New Bag/Syringe - Provider: Jaz Macias, RN) Linked Groups Order Group 1: losartan [...] MAR. documented in this encounter Care Teams Sports Therapist Relationship Specialty Start Date End Date Willis Veras MD [address] [place] [address] PCP - General 05/03/21 Cole Ku MD [address] [place] [address] General Surgery 11/10/20 documented as of this encounter
--- OUTSIDE RECORDS SUMMARY | 2024-04-25 14:02 | XMS_ITS | Encounter Summary ---
Author Organization [facility] Address [address] [facility] [place] [address] Care Team Providers Care Carpet Installer Helper Name Role Phone Cole Ku MD Unavailable Willis Veras MD Primary Care Provider Encounter Details Date Type Department Care Team (Late st Contact Info) Description 02/19/2022 Orders Only [facility] [address] [place] [address] Danay Harrell, SABRINA S/P TKR (total knee replacement), left Social [...] Contact Info) Description 06/02/2024 10:30 AM TECHNICAL STENOGRAPHER Office Visit [facility] - Orthopedic Surgery [facility] [place] [phone] Kevin Britton MD 1031 [facility] [address] [place] [address] 08/10/2024 1:00 PM CDT Office Visit [facility] - DERMATOLOGY SPECIALIST 1031 [facility] [address] [place] [phone] Daja Mir MD [address] [place] [address] 10/26/2024 1:00 PM CDT Office Visit [facility] - Hematology/Oncology [address] [place] [phone] Elizabeth Garcia MD 3667 [facility] 3 [place] [address] 01/17/2025 12:30 PM CDT Procedure visit [facility] - GI [address] [place] [phone] 01/17/2025 1:00 PM CDT Office Visit [facility] - GI [address] [place] [phone] Mccoy, Marlena N, MANAGER TARGET-NUISANCE WILDLIFE CONTROL OPERATOR [address] DIV [place] [address] documented as of this encounter Goals Goal Patient Goal Type Associated Problems Recent Progress Patient-Stated? Author Mobility General On track( 021 9:08 AM TECHNICAL STENOGRAPHER) No Tika Pope, RN Note: Expected end [...] Primary documented in this encounter Care Teams Carpet Installer Helper Relationship Specialty Start Date End Date Willis Veras MD [address] [place] [address] PCP - General 05/03/21 Cole Ku MD [address] [place] [address] General Surgery 11/10/20 documented as of this encounter
--- OUTSIDE RECORDS SUMMARY | 2024-04-25 14:02 | XMS_ITS | Encounter Summary ---
Author Organization [facility] Address [address] [facility] [place] [address] Care Team Providers Care Vehicle Safety Inspector Name Role Phone Cole Ku MD Unavailable Willis Veras MD Primary Care Provider Encounter Details Date Type Department Care Team (Late st Contact Info) Description 03/19/2022 Orders Only [facility] [address] [place] [address] Araseli Beyrs MD [address] [place] [address] Vitamin D deficiency, unspecified ; Encounter for monitoring tamoxifen therapy; History of breast cancer Social History Tobacco Use Types Packs/Day Years [...] st Contact Info) Description 06/02/2024 10:30 AM MANAGER LOSS PREVENTION Office Visit [facility] - Orthopedic Surgery [address] [place] [address] Kevin Britton MD 1031 [facility] 280 [place] [address] 08/10/2024 1:00 PM CDT Office Visit [facility] - COMMUTER PILOT 1031 [facility] 400 [place] [phone] Daja Mir MD 1877 [facility]'s [facility] [place] [address] 10/26/2024 1:00 PM CDT Office Visit [facility] - Hematology/Oncology [address] [place] [phone] Elizabeth Garcia MD 3336 [facility] 3 [place] [address] 01/17/2025 12:30 PM CDT [place] [facility] [place] [address] [place] [address], [facility] [place] [phone] 01/17/2025 1:00 PM CDT Office Visit [facility] - GI 1225 [facility], [place] [phone] Marlena Mccoy, THREAD REELER-FLAGSETTER 1225 [facility] 3[facility] [place] [address] documented as of this encounter Goals Goal Patient Goal Type Associated Problems Recent Progress Patient-Stated? Author Mobility General On track( 021 9:08 AM MANAGER LOSS PREVENTION) No Tika Pope, RN Note: Expected end [...] * VITAMIN D 25-HYDROXY (03/20/2022 10:36 AM MANAGER LOSS PREVENTION) [facility] Vitamin D, 25 Hydroxy 35.0 30.0 - 80.0 ng/mL 03/20/2022 11:34 AM MANAGER LOSS PREVENTION [facility] Comment: The recommendations for 25-Hydroxy Vitamin [...] Lab Venipuncture / Unknown 03/20/2022 10:36 AM MANAGER LOSS PREVENTION 03/20/2022 10:45 AM [facility] Araseli Byers MD LAB - CHEMISTRY LD [place]ÑA [facility] [address] [place] [address], [facility] [phone] * (ABNORMAL) COMPREHENSIVE METABOLIC PANEL (03/20/2022 10:36 AM [facility]) BUN 15 7 - 26 mg/dL 03/20/2022 11:17 AM [facility] Creatinine 1.07(H) 0.56 - 0.96 mg/dL 03/20/2022 11:17 AM [facility] Sodium 139 136 - 145 mmol/L 03/20/2022 11:17 AM [facility] Potassium 3.7 3.5 - 4.5 mmol/L 03/20/2022 11:17 AM [facility] Chloride 109(H) 98 - 107 mmol/L 03/20/2022 11:17 AM [facility] CO2 21(L) 22 - 29 mmol/L 03/20/2022 11:17 AM [facility] Glucose 147(H) 70 - 115 mg/dL 03/20/2022 11:17 AM [facility] Calcium 9.3 8.4 - 10.2 mg/dL 03/20/2022 11:17 AM [facility] Protein Total 6.9 6.0 - 8.3 g/dL 03/20/2022 11:17 AM [facility] Albumin 3.6 3.4 - 5.0 g/dL 03/20/2022 11:17 AM [facility] Bilirubin Total 0.3 0.2 - 1.2 mg/dL 03/20/2022 11:17 AM [facility] Alkaline Phosphatase 87 40 - 150 U/L 03/20/2022 11:17 AM [facility] ALT 21 5 - 55 U/L 03/20/2022 11:17 AM [facility] AST 36(H) 5 - 34 U/L 03/20/2022 11:17 AM [facility] Anion Gap 13 8 - 18 03/20/2022 11:17 AM [facility] BUN/Creatinine Ratio 14 7 - 23 03/20/2022 11:17 AM [facility] Osmolality Calculated 292 270 - 300 mOsm/kg 03/20/2022 11:17 AM [facility] Albumin/Globulin Ratio 1.1 1.1 - 2.3 03/20/2022 11:17 AM [facility] eGFR by CKD-EPI 61(L) >=90 mL/min/1.7 3 m2 03/20/2022 11:17 AM [facility] Blood BLOOD SPECIMEN / Unknown Lab Venipuncture / Unknown 03/20/2022 10:36 AM MANAGER LOSS PREVENTION 03/20/2022 10:45 AM [facility] Araseli Byers MD LAB - CHEMISTRY LD [place]DAÑA [facility] Organization Address City/State/ZIP Co de Phone Number [facility] [address] [place] [phone], [facility] [phone] * (ABNORMAL) CBC WITH DIFFERENTIAL (03/20/2022 10:36 AM MANAGER LOSS PREVENTION) WBC 5.1 3.5 - 10.5 10? 3 /uL 03/20/2022 10:49 AM [facility] RBC 3.70(L) 3.80 - 5.20 10? 6 /uL 03/20/2022 10:49 AM [facility] Hemoglobin 11.2(L) 12.0 - 15.6 g/dL 03/20/2022 10:49 AM [facility] Hematocrit 34.6(L) 35.0 - 45.0 % 03/20/2022 10:49 AM [facility] MCV 93.5 80.7 - 98.3 fL 03/20/2022 10:49 AM [facility] MCH 30.3 26.7 - 34.0 pg 03/20/2022 10:49 AM [facility] MCHC 32.4 30.8 - 35.9 g/dL 03/20/2022 10:49 AM [facility] RDW-SD 44.2 36.0 - 50.0 fL 03/20/2022 10:49 AM [facility] RDW-CV 12.9 11.2 - 14.8 % 03/20/2022 10:49 AM [facility] Platelet Count 173 150 - 400 10? 3 /uL 03/20/2022 10:49 AM [facility] MPV 11.4 9.4 - 12.9 fL 03/20/2022 10:49 AM [facility] nRBC Absolute 0.00 0 10? 3 /uL 03/20/2022 10:49 AM [facility] nRBC Auto 0.0 0 /100 WBC 03/20/2022 10:49 AM [facility] Neutrophils % 46.7 35.0 - 70.0 % 03/20/2022 10:49 AM [facility] Lymphocytes % 42.2 20.0 - 43.0 % 03/20/2022 10:49 AM [facility] Monocytes % 7.3 5.0 - 13.0 % 03/20/2022 10:49 AM [facility] Eosinophils % 3.2 0.0 - 6.0 % 03/20/2022 10:49 AM [facility] Basophil % 0.4 0.0 - 2.0 % 03/20/2022 10:49 AM [facility] Neutrophils Absolute 2.36 1.60 - 7.00 10? 3 /uL 03/20/2022 10:49 AM [facility] Lymphocyte Absolute 2.13 1.10 - 3.90 10? 3 /uL 03/20/2022 10:49 AM [facility] Monocytes Absolute 0.37 0.26 - 1.07 10? 3 /uL 03/20/2022 10:49 AM [facility] Eosinophils Absolute 0.16 0.00 - 0.47 10? 3 /uL 03/20/2022 10:49 AM [facility] Basophils Absolute 0.02 0.00 - 0.08 10? 3 /uL 03/20/2022 10:49 AM [facility] Immature Granulocytes % 0.2 0.0 - 1.0 % 03/20/2022 10:49 AM [facility] Immature Granulocytes Absolute 0.01 03/20/2022 10:49 AM [facility] Blood BLOOD SPECIMEN / Unknown Lab Venipuncture / Unknown 03/20/2022 10:36 AM MANAGER LOSS PREVENTION 03/20/2022 10:45 AM [facility] Araseli Byers MD LAB - HEMATOLOGY ORD ERABLES [facility] [address] [place] [address] [phone] documented in this encounter Visit Diagnoses Diagnosis Vitamin D deficiency, unspecified- Primary Encounter for monitoring tamoxifen therapy Encounter for therapeutic drug monitoring History of breast cancer Personal history of malignant neoplasm of breast documented in this encounter Care Teams Vehicle Safety Inspector Relationship Specialty Start Date End Date Willis Veras MD [address] [place] [address] PCP - General 05/03/21 Cole Ku MD 1225 [facility] 2L [place] [phone] General Surgery 11/10/20 documented as of this encounter
--- OUTSIDE RECORDS SUMMARY | 2024-04-25 14:02 | XMS_ITS | Encounter Summary ---
Author Organization [facility] Address [address] [facility] [address] Care Team Providers Care Cnc Mill Set Up Operator Name Role Phone Cole Ku MD Unavailable Willis Veras MD Primary Care Provider Reason for Visit * Reason Onset Date Comments Abnormal Lab 01/22/2022 Encounter Details Date Type Department Care Team (Late st Contact Info) Description 01/22/2022 Telephone [facility] Orthopedic Surgery [address] [place], [place] [phone] Danay Harrell RN Abnormal Lab Social History Tobacco Use Types Packs/Day Years Used Date Smoking Tobacco: Never Smokeless Tobacco: Never Alcohol Use Standard Drinks/Week Comments Yes 0 (1 standard drink = 0.6 oz pur e alcohol) ocassional weekends AUDIT-C Answer Date Recorded Frequency of Alcohol Consumption 2-4 times a fri03/10/2019 Average Number of Drinks Not on file 019 Frequency of Binge Drinking Not on file 10/2018 Sex and Gender Information Value Date Recorded [...] encounter Miscellaneous Notes * Telephone Encounter - Danay Harrell RN - 01/22/2022 5:16 PM CDT Left voicemail for Milagros Hall Melissa about urine results. Sending abx to pharmacy, will follow up withretest if culture is positive. Danay Harrell LADLE HANDLER Total Joint Reconstruction Dept of Orthopedic Surgery [facility] Email: [email or web address] documented in this encounter Plan of Treatment Upcoming Encounters Date Type Department Care Team (Late st Contact Info) Description 06/02/2024 10:30 AM TRAINING PROJECT MANAGER Office Visit [facility] - Orthopedic Surgery [address] [place] [phone] Kevin Britton MD 1031 [facility] 280 [place] [address] 08/10/2024 1:00 PM CDT Office Visit [facility] - OPTICS TEST TECHNICIAN 1031 [facility] 400 [place] [phone] Daja Mir MD 3789 [facility]'s [facility] [address] 10/26/2024 1:00 PM CDT Office Visit [facility] - Hematology/Oncology [address] [place] [phone] Elizabeth Garcia MD 0480 [facility] 3 [place] [address] 01/17/2025 12:30 PM CDT Procedure visit [facility] - [place] 1225 [facility], [place] [address] 01/17/2025 1:00 PM CDT Office Visit [facility] - [facility] [address] [facility], [place] [address] Marlena Mccoy, MOLD WORKER-MICROELECTRONICS ENGINEER 1225 [facility] 3FL [place] [address] documented as of this encounter Goals Goal Patient Goal Type Associated Problems Recent Progress Patient-Stated? Author Mobility General On track( 021 9:08 AM TRAINING PROJECT MANAGER) No Tika Pope, SABRINA Note: [...] as of this encounter Visit Diagnoses Diagnosis Unspecified abnormal findings in urine- Primary documented in this encounter Care Teams Cnc Mill Set Up Operator Relationship Specialty Start Date End Date Willis Veras MD [address] [place] [address] PCP - General 05/03/21 Cole Ku MD 1225 [facility] 2L [place] [address] General Surgery 11/10/20 documented as of this encounter
--- OUTSIDE RECORDS SUMMARY | 2024-04-25 14:02 | XMS_ITS | Encounter Summary ---
Author Organization [facility] Address [address] [facility] [place] [address] Care Team Providers Care Stator Winder Name Role Phone Cole Ku MD Unavailable Willis Veras MD Primary Care Provider Encounter Details Date Type Department Care Team (Late st Contact Info) Description 02/02/2022 Orders Only [facility] SUR[facility] [address] [place] [address] Jocelyn Gonzalez MD [facility]5 [facility] ORTHOPEDICS [place], [place] [phone] Social History Tobacco Use Types Packs/Day Years [...] Contact Info) Description 06/02/2024 10:30 AM CONSTRUCTION CONSULTANT Office Visit [facility] - Orthopedic Surgery [facility]1 [place] [phone] Kevin Britton MD 1031 [facility] 280 [place] [address] 08/10/2024 1:00 PM CDT Office Visit [facility] - ASBESTOS WORKER [address] [facility] 400 [place] [phone] Daja Mir MD 2483 [place] [address] 10/26/2024 1:00 PM CDT Office Visit [facility] - Hematology/Oncology 3[address] [place] [phone] Elizabeth Garcia MD 3669 [facility] 3 [place] [address] 01/17/2025 12:30 PM CDT Procedure visit [facility] - [facility] [address] [place] [phone] 01/17/2025 1:00 PM CDT Office Visit [facility] - GI [address] [place] [phone] Marlena Mccoy, FUR TANNER-RETAIL ROUTE SUPERVISOR [address] [place] [address] documented as of this encounter Goals Goal Patient Goal Type Associated Problems Recent Progress Patient-Stated? Author Mobility General On track( 021 9:08 AM CONSTRUCTION CONSULTANT) No Tika Pope, RN Note: Expected [...] on filedocumented in this encounter Care Teams Stator Winder Relationship Specialty Start Date End Date Willis Veras MD [address] [place] [address] PCP - General 05/03/21 Cole Ku MD [address]L [place] [address] General Surgery 11/10/20 documented as of this encounter
--- OUTSIDE RECORDS SUMMARY | 2024-04-25 14:03 | XMS_ITS | Encounter Summary ---
Author Organization [facility] Address [address] [facility] [place] [address] Care Team Providers Care Towel Folder Name Role Phone Cole Ku MD Unavailable Willis Veras MD Primary Care Provider Encounter Details Date Type Department Care Team (Latest Contact Info) Description 09/24/2021 Travel Social History Tobacco Use Types Packs/Day [...] AM CDT documented as of this encounter Functional [...] st Contact Info) Description 06/02/2024 10:30 AM MILITARY SCIENCE INSTRUCTOR Office Visit [facility] - Orthopedic Surgery 10[address] [place] [phone] Kevin Britton MD 1031 [facility] 280 [place] [address] 08/10/2024 1:00 PM CDT Office Visit [facility] Group - ALUM PLANT SUPERVISOR 1031 [facility] 400 [place] [phone] Daja Mir MD 5703 [facility] [place] [address] 10/26/2024 1:00 PM CDT Office Visit [facility] - Hematology/Oncology [address] [place] [phone] Elizabeth Garcia MD 3666 [facility] 3 [place] [address] 01/17/2025 12:30 PM CDT Procedure visit [facility] - GI [address] [place] [phone] 01/17/2025 1:00 PM CDT Office Visit [facility] - GI [address] [place] [phone] Marlena Mccoy, COIN COLLECTOR-MATERIAL REQUIREMENTS PLANNING MANAGER [address] [place] [address] [facility] [place] [address] documented as of this encounter Goals Goal Patient Goal Type Associated Problems Recent Progress Patient-Stated? Author Mobility General On track( 021 9:08 AM MILITARY SCIENCE INSTRUCTOR) No Tika Pope, RN Note: Expected end [...] on filedocumented in this encounter Care Teams Towel Folder Relationship Specialty Start Date End Date Willis Veras MD [address] [place] [address] PCP - General 05/03/21 Cole Ku MD [address] OF [facility] [place] [address] General Surgery 11/10/20 documented as of this encounter
--- OUTSIDE RECORDS SUMMARY | 2024-04-25 14:03 | XMS_ITS | Encounter Summary ---
Author Organization [facility] Address [address] [facility] [place] [address] Care Team Providers Care Director Semiconductor Name Role Phone Cole Ku MD Unavailable Willis Veras MD Primary Care Provider Reason for Visit * Reason Comments Refill Request Encounter Details Date Type Department Care Team (Late st Contact Info) Description 08/13/2021 Refill [facility]-[address] [phone] Erma Neri MD 23 [facility] 220 [place] [address] Refill Request Social History Tobacco Use Types [...] Exposure Response Date Recorded In the last month, have you been in contact with someone who was confirmed or suspected to have Coronavirus / COVID-19? No / Unsure 08/06/2021 10:20 AM CDT documented as of this encounter [...] st Contact Info) Description 06/02/2024 10:30 AM MONITORING COORDINATOR Office Visit [facility] - Orthopedic Surgery [facility]1 [place] [phone] Kevin Britton MD 1031 [facility] 280 [place] [address] 08/10/2024 1:00 PM CDT Office Visit [facility] - TEXTILE BROKER 1031 [facility] 400 [place] [phone] Daja Mir MD 3014 [place] [address] 10/26/2024 1:00 PM CDT Office Visit [facility] - Hematology/Oncology 9294 [place] [phone] Elizabeth Garcia MD 6590 [facility] 3 [place] [address] 01/17/2025 12:30 PM CDT Procedure visit [facility] - GI [address] [place] [phone] 01/17/2025 1:00 PM CDT Office Visit [facility] - GI [address] [place] [phone] Marlena Mccoy, PIPE THREADING MACHINE OPERATOR-CLIENT SERVICE REPRESENTATIVE [address] [place] [address] documented as of this encounter Goals Goal Patient Goal Type Associated Problems Recent Progress Patient-Stated? Author Mobility General On track( 021 9:08 AM MONITORING COORDINATOR) No Tika Pope, RN Note: Expected [...] as of this encounter Visit Diagnoses Diagnosis Encounter for monitoring tamoxifen therapy- Primary Encounter for therapeutic drug monitoring History of breast cancer Personal history of malignant neoplasm of breast documented in this encounter Care Teams Director Semiconductor Relationship Specialty Start Date End Date Willis Veras MD [address]16 [place] [address] PCP - General 05/03/21 Cole Ku MD [address] [place] [address] General Surgery 11/10/20 documented as of this encounter
--- OUTSIDE RECORDS SUMMARY | 2024-04-25 14:03 | XMS_ITS | Encounter Summary ---
Author Organization [facility] Address [address] [facility] [place] [address] Care Team Providers Care Plate Mill Hand Name Role Phone Cole Ku MD Unavailable Willis Veras MD Primary Care Provider Reason for Referral * Radiology Services (Routine) - Closed Specialty Diagnoses / Procedures Referred By Americo peters Referred To Contact Ultrasound Diagnoses NAFLD (nonalcoholic fatty liver disease) Procedures US ABDOMEN LIMITED Marlena Mccoy APRN-CNP [address] [place] [address] [address] [place] [address] Referral ID Status Reason Start Date Expiration Date Visits Re quested Visits Authorized [id number] Closed 07/13/2021 07/13/2022 1 1 Reason for Visit * Radiology Services (Routine) - Closed Specialty Diagnoses / Procedures Referred By Americo peters Referred To Contact Ultrasound Diagnoses NAFLD (nonalcoholic fatty liver disease) Procedures US ABDOMEN LIMITED Marlena Mccoy APRN-CNP [address] [place] [address] [facility] [place] [address] Referral ID Status Reason Start Date Expiration Date Visits Re quested Visits Authorized [id number] Closed 07/13/2021 07/13/2022 1 1 Encounter Details Date Type Department Care Team (Late st Contact Info) Description 01/18/2022 9:28 AM CDT - 01/18/2022 11:59 PM CDT Hospital Encounter [facility] [address] [place] [phone] Marlena Mccoy, PET CARE TECHNICIAN-ROCK BREAKER 1225 [facility] [address] [place] [address] Discharge Disposition: Home or Self Care Social [...] times daily 60 tablet 02/01/2022 2 HYDROcodone-acetaminophen ([place]) 5-325 MG tablet Take 1 (one) tablet by mouth every 4 hours as needed for Pain 30 tablet 02/01/2022 2 meloxicam (MOBIC) 15 MG tabletIndications:Primary osteoarthritis of left knee Take 1 (one) tablet by mouth once daily 90 tablet 1 08/28/2021 2 tamoxifen (NOLVADEX) 20 MG tabletIndications:Encount er for monitoring tamoxifen therapy,History of breast cancer TAKE 1 TABLET BY MOUTH EVERY DAY 30 tablet 6 08/13/2021 2 documented as of this encounter Plan of Treatment Upcoming Encounters Date Type Department Care Team (Late st Contact Info) Description 06/02/2024 10:30 AM STOCK CAR DRIVER Office Visit [facility] - Orthopedic Surgery 1031 [place] [address] Kevin Britton MD [address] [address] 08/10/2024 1:00 PM CDT Office Visit [facility] - GEAR HOBBER OPERATOR 1031 [facility] [address] [place] [phone] Daja Mir MD 5705 [facility] [place] [address] 10/26/2024 1:00 PM CDT Office Visit [facility] - Hematology/Oncology 3651 [place] [phone] Elizabeth Garcia MD 3666 [facility] [address] 3 [place] [address] 01/17/2025 12:30 PM CDT Procedure [place] [facility] [place] [address] [place] [address], [place] [phone] 01/17/2025 1:00 PM CDT Office Visit [facility] - GI [address] [place] [address], [place] [phone] Marlena Mccoy, PET CARE TECHNICIAN-ROCK BREAKER [address] [place] [address] [facility] [place] [address] documented as of this encounter Goals Goal Patient Goal Type Associated Problems Recent Progress Patient-Stated? Author Mobility General On track( 021 9:08 AM STOCK CAR DRIVER) No Tika Pope, SABRINA Note: Expected end [...] Name Priority Date/Time Associated Diagnosis Comments US ABDOMEN LIMITED Routine 01/18/2022 9: 42 AM CDT NAFLD (nonalcoholic fatty liver disease) documented in this encounter Results * US ABDOMEN LIMITED (01/18/2022 9:42 AM CDT) Anatomical Region Laterality Modality Abdomen Ultrasound 01/18/2022 9:43 AM CDT Impressions 01/18/2022 9:55 AM CDT IMPRESSION: 1.Diffuse hepatic steatosis without discrete hepatic lesion or intrahepatic biliary dilatation. 2.Status post cholecystectomy. > Dictated by Thomas Cleary MD (residential treatment specialist). I, Basim Holbrook MD have personally reviewed and interpreted this examination/study. > Interpreting Provider: Basim Holbrook MD on 01/18/2022 9:55 AM Narrative 01/18/2022 9:55 AM CDT PROCEDURE: ??US ABDOMEN LIMITED, DATE/TIME OF EXAM: ??01/18/2022 9:43 AM PROCEDURE: ??US ABDOMEN LIMITED, DATE/TIME OF EXAM: ??01/18/2022 9:43 AM, LOCATION ??[facility] INDICATION: K76.0: NAFLD (nonalcoholic fatty liver disease) [...] DATE/TIME OF EXAM: 01/18/2022 9:43 AM, LOCATION [facility] INDICATION: K76.0: NAFLD (nonalcoholic fatty liver disease) [...] > Dictated by Thomas Cleary MD (residential treatment specialist). I, Basim Holbrook MD have personally reviewed and interpreted this examination/study. > Interpreting Provider: Basim Holbrook MD on 29:55 AM Marlena Pedro Mccoy PET CARE TECHNICIAN-ROCK BREAKER US ORDERABL ES documented in this encounter Visit Diagnoses Diagnosis NAFLD (nonalcoholic fatty liver disease) Other chronic nonalcoholic liver disease documented in this encounter Care Teams Plate Mill Hand Relationship Specialty Start Date End Date Willis Veras MD [address]16 [place] [address] PCP - General 05/03/21 Cole Ku MD 1225 [address] [facility] 2L DIV OF [facility] [place] [address] General Surgery 11/10/20 documented as of this encounter
--- OUTSIDE RECORDS SUMMARY | 2024-04-25 14:03 | XMS_ITS | Encounter Summary ---
Author Organization [facility] Address [address] [facility] [place] [address] Care Team Providers Care Paraoptometric Name Role Phone Cole Ku MD Unavailable Willis Veras MD Primary Care Provider Reason for Visit * Reason Onset Date Comments MEDICATION REFILL 08/28/2021 Encounter Details Date Type Department Care Team (Late st Contact Info) Description 08/28/2021 Refill [facility] Orthopedic Surgery 1031 [place] [address] Danay Harrell, BACKFILLER REFILL Social History Tobacco Use Types Packs/Day [...] st Contact Info) Description 06/02/2024 10:30 AM CHEMICAL LIBRARIAN Office Visit [facility] - Orthopedic Surgery 1031 [place] [phone] Kevin Britton MD 1031 [facility] 280 [place] [address] 08/10/2024 1:00 PM CDT Office Visit [facility] - THERAPY TECH 1031 [facility] 400 [place] [phone] Daja Mir MD 570 [place] [address] 10/26/2024 1:00 PM CDT Office Visit [facility] - Hematology/Oncology 3655 [place] [phone] Elizabeth Garcia MD 3665 [facility] 3 [place] [address] 01/17/2025 12:30 PM CDT Procedure visit [facility] - GI [address] [place] [phone] 01/17/2025 1:00 PM CDT Office Visit [facility] - GI [address] [place] [phone] Marlena Mccoy, BOX TOE MAKER-FOOD SAFETY OFFICER [address] [place] [address] documented as of this encounter Goals Goal Patient Goal Type Associated Problems Recent Progress Patient-Stated? Author Mobility General On track( 021 9:08 AM CHEMICAL LIBRARIAN) No Tika Pope, RN Note: Expected end [...] as of this encounter Visit Diagnoses Diagnosis Primary osteoarthritis of left knee Primary localized osteoarthrosis, lower leg documented in this encounter Care Teams Paraoptometric Relationship Specialty Start Date End Date Willis Veras MD [address]16 [place] [address] PCP - General 05/03/21 Cole Ku MD 1225 [address] [facility] 2L [place] [address] General Surgery 11/10/20 documented as of this encounter
--- OUTSIDE RECORDS SUMMARY | 2024-04-25 14:03 | XMS_ITS | Encounter Summary ---
Author Organization [facility] Address [address] [facility] [place] [address] Care Team Providers Care Environmental Services Floor Tech Name Role Phone Cole Ku MD Unavailable Willis Veras MD Primary Care Provider Reason for Visit * Radiology Services (Routine) - Closed Specialty Diagnoses / Procedures Referred By Contac t Referred To Contact Mammography Diagnoses History of breast cancer Procedures MAMMO BILAT SCREENING W RORY Screening Mammogram Bilateral w/ Rory [facility] Tia Jones MD [address] [place] [address] [facility] Op [address] [place] [address] Referral ID Status Reason Start Date Expiration Date Visits Re quested Visits Authorized [id number] Closed 10/06/2021 10/06/2022 1 1 Encounter Details Date Type Department Care Team (Latest Contact Info) Description 10/19/2021 2:39 PM CDT - 10/19/2021 11:59 PM CDT Hospital Encounter [facility] 365[address] [place] [address] Araseli Byers MD [address] [place] [address] Discharge Disposition: Home or Self [...] In the last 10 days, have omega u been in contact with someone who [...] daily with food 90 tablet 2 03/23/2019 Vitamin D3, cholecalciferol, 50 MCG (1999 UT) tabletIndications:Vitamin D deficiency, unspecified Take 1 tablet by mouth once daily 90 tablet 2 03/23/2019 amLODIPine (NORVASC) 10 MG tablet Take 10 mg by mouth once daily 01/18/2022 lisinopril (PRINIVIL; ZESTRIL) 20 MG tablet Take 20 mg by mouth once daily 09/06/2021 01/18/2022 meloxicam (MOBIC) 15 MG tabletIndications:Primary osteoarthritis of left knee Take 1 (one) tablet by mouth once daily 90 tablet 1 08/28/2021 02/02/2022 tamoxifen (NOLVADEX) 20 MG tabletIndications:Encounte r for monitoring tamoxifen therapy,History of breast cancer TAKE 1 TABLET BY MOUTH EVERY DAY 30 tablet 6 08/13/2021 03/20/2022 documented as of this encounter Plan of Treatment Upcoming Encounters Date Type Department Care Team (Late st Contact Info) Description 06/02/2024 10:30 AM RIGGING HELPER Office Visit [facility] - Orthopedic Surgery 1031 [place] [phone] Kevin Britton MD 1031 [facility] 280 [place] [address] 08/10/2024 1:00 PM CDT Office Visit [facility] - MENDER KNIT GOODS 1031 [facility] 400 [place] [phone] Daja Mir MD 5706 [facility] [place] [address] 10/26/2024 1:00 PM CDT Office Visit [facility] - Hematology/Oncology 365[address] [place] [phone] Elizabeth Garcia MD 3665 [facility] 3 [place] [address] 01/17/2025 12:30 PM CDT Procedure visit [facility] - GI [address] [place] [phone] 01/17/2025 1:00 PM CDT Office Visit [facility] - GI 1225 [place] [phone] Marlena Mccoy, SAFETY COUNCIL DIRECTOR-SMOCKING MACHINE OPERATOR [address] [place] [address] [facility] [place] [address] documented as of this encounter Goals Goal Patient Goal Type Associated Problems Recent Progress Patient-Stated? Author Mobility General On track( 021 9:08 AM RIGGING HELPER) No Pope, Tika, RN Note: Expected end date: 05/05/2019 The goal is to maintain or improve your mobility at the optimum level for you. Interventions: Medication Management General On track( 022 9:48 AM CDT) aSba Barrera RN Note: Expected end date: Ongoing Interventions: Take all medications as prescribed Let your doctor know right away about any changes in your medications Make sure to request a refill of your medication at least one week prior to your last dose documented as of this encounter Procedures Procedure Name Priority Date/Time Associated Diagnosis Comments MAMMO BILAT SCREENING W RORY Routine 10/19/2021 3:06 PM CDT History of breast cancer documented in this encounter Results * MAMMO BILAT SCREENING W RORY (10/19/2021 3:06 PM CDT) Anatomical Region Laterality Modality Breast Bilateral Mammography 10/19/2021 3:13 PM CDT Impressions 10/22/2021 7:28 AM CDT IMPRESSION: No mammographic evidence of malignancy, status post left breast conservation therapy. RECOMMENDATION: ??Screening mammography in one year, pending no interval breast concerns. Patient will be notified of the results by lay letter. OVERALL ASSESSMENT: BI-RADS CATEGORY 2: BENIGN. Report drafted by John Mac DO, MPH (resident). I, Dr. VICENTE SUMNER M.D. have personally reviewed and interpreted this examination/study. This report was electronically signed by VICENTE SUMNER M.D. ??on 10/22/2021 7:28 AM . Narrative 10/22/2021 7:28 AM CDT EXAMINATION: DIGITAL MAMMO BILAT SCREENING W RORY AND WITH CAD DATE OF EXAM: ??10/19/2021 3:06 PM HISTORY: Screening exam. History of breast cancer and status post left breast conservation therapy in 2015. COMPARISON: Prior breast imaging studies back to 08/01/2017, with the most recent dated 10/19/2020. TECHNIQUE: ??Tomosynthesis (3D) and reconstructed synthetic 2-D images acquired and reviewed in the bilateral craniocaudal and mediolateral oblique projections. A total of 5 images were obtained. ??Scar marker was placed on the left breast. Computer-aided detection (CAD) was utilized. BREAST PARENCHYMAL COMPOSITION: Category B: There are scattered areas of fibroglandular density. FINDINGS: ??There are no suspicious findings or evidence of malignancy on mammography. Status post left breast conservation surgery. No change from prior. Araseli Byers MD MAMMO ORDERABLES documented in this encounter Visit Diagnoses Diagnosis History of breast cancer Personal history of malignant neoplasm of breast documented in this encounter Care Teams Environmental Services Floor Tech Relationship Specialty Start Date End Date Willis Veras MD 6616 [place] [address] PCP - General 05/03/21 Cole Ku MD [address] [place] [address] General Surgery 11/10/20 documented as of this encounter
--- OUTSIDE RECORDS SUMMARY | 2024-04-25 14:03 | XMS_ITS | Encounter Summary ---
Author Organization [facility] Address [address] [facility] [place] [address] Care Team Providers Care Test Preparer Name Role Phone Cole Ku MD Unavailable Willis Veras MD Primary Care Provider Encounter Details Date Type Department Care Team (Latest Contact Info) Description 10/19/2021 Travel Social History Tobacco Use Types Packs/Day [...] st Contact Info) Description 06/02/2024 10:30 AM CAR HOSTLER Office Visit [facility] - Orthopedic Surgery 1031 [place] [phone] Kevin Britton MD 1031 [facility] 280 [place] [address] 08/10/2024 1:00 PM CDT Office Visit [facility] - SILVERWARE WASHER 1031 [facility] 400 [place] [phone] Daja Mir MD 5706 [facility] [place] [address] 10/26/2024 1:00 PM CDT Office Visit [facility] - Hematology/Oncology 3655 [place] [phone] Elizabeth Garcia MD 3661 [facility] 3 [place] [address] 01/17/2025 12:30 PM CDT Procedure visit [facility] - GI [address] [place] [phone] 01/17/2025 1:00 PM CDT Office Visit [facility] - GI [address] [place] [phone] Marlena Mccoy, SKIN GRADER-BARGE LOADER [address] [place] [address] [facility] [place] [address] documented as of this encounter Goals Goal Patient Goal Type Associated Problems Recent Progress Patient-Stated? Author Mobility General On track( 021 9:08 AM CAR HOSTLER) No Tika Pope, RN Note: Expected end [...] on filedocumented in this encounter Care Teams Test Preparer Relationship Specialty Start Date End Date Willis Veras MD [address]16 [place] [address] PCP - General 05/03/21 Cole Ku MD [address] OF [facility] [place] [address] General Surgery 11/10/20 documented as of this encounter
--- OUTSIDE RECORDS SUMMARY | 2024-04-25 14:03 | XMS_ITS | Encounter Summary ---
Author Organization [facility] Address [address] [place] [address] Care Team Providers Care Bed And Breakfast Innkeeper Name Role Phone Cole Ku MD Unavailable Willis Veras MD Primary Care Provider Encounter Details Date Type Department Care Team (Latest Contact Info) Description 09/26/2021 11:45 AM CDT - 09/26/2021 11:59 PM CDT Hospital Encounter [facility] - Orthopedics [address] [place] [address] Kevin Britton MD [address] [place], [place] [phone] Discharge Disposition: Home or Self Care Social [...] st Contact Info) Description 06/02/2024 10:30 AM SEARCH ENGINE OPTIMIZATION SPECIALIST Office Visit [facility] - Orthopedic Surgery 10[address] [place] [address] Kevin Britton MD 1031 [facility] 280 [place] [address] 08/10/2024 1:00 PM CDT Office Visit [facility] - LEAD ATG DEVELOPER 1031 [facility] [address] [place] [phone] Daja Mir MD 5701 [facility] [place] [address] 10/26/2024 1:00 PM CDT Office Visit [facility] - Hematology/Oncology 3655 [place] [phone] Elizabeth Gacria MD [address] [facility] [address] 3 [place] [address] 01/17/2025 12:30 PM CDT Procedure visit [facility] [place] [address] [place] [address], [place] [phone] 01/17/2025 1:00 PM CDT Office Visit [facility] - GI [address] [place] [address], [place] [phone] Marlena Mccoy, AIRPLANE PATROL PILOT-BUSINESS CONSULTANT [address] [place] [address] [facility] [place] [address] documented as of this encounter Goals Goal Patient Goal Type Associated Problems Recent Progress Patient-Stated? Author Mobility General On track( 021 9:08 AM SEARCH ENGINE OPTIMIZATION SPECIALIST) No Tika Pope, SABRINA Note: Expected [...] XR KNEE LEFT 4VW OR MORE Routine 09/26/2021 12:02 PM CDT Primary osteoarthritis of left knee documented in this encounter Results * XR KNEE LEFT 4VW OR MORE (09/26/2021 12:02 PM CDT) Anatomical Region Laterality Modality Lower Extremity Radiographic Alena ging 09/26/2021 12:2 6 PM CDT Impressions 09/26/2021 12:27 PM CDT Degenerative changes. Joint effusion. Some air within the joint space as well as the lateral soft tissues. Has the patient had an attempted aspiration? One cannot completely exclude infection. Please correlate clinically. *Reading Radiologist: Julien Wilder on 09/26/2021 at 12:27 PM Narrative 09/26/2021 12:27 PM CDT Left knee 4 views INDICATION: Pain FINDINGS: There is narrowing of the medial compartment of the knee joint. The lateral compartment is well maintained. There is some spurring of the femoral condyles and tibial plateau and tibial spine. There is some minimal spurring along the patellofemoral joint. There is a joint effusion. There may be some air within the joint space. There also appears to be some air within the lateral soft tissues. Has the patient had an attempted joint aspiration? Procedure Note Julien Wilder MD - 09/26/2021 Left knee 4 views INDICATION: Pain FINDINGS: There is narrowing of the medial compartment of the knee joint. The lateral compartment is well maintained. There is some spurring of the femoral condyles and tibial plateau and tibial spine. There is some minimal spurring along the patellofemoral joint. There is a joint effusion. There may be some air within the joint space. There also appears to be some air within the lateral soft tissues. Has the patient had an attempted joint aspiration? IMPRESSION Degenerative changes. Joint effusion. Some air within the joint space as well as the lateral soft tissues. Has the patient had an attempted aspiration? One cannot completely exclude infection. Please correlate clinically. *Reading Radiologist: Julien Wilder on 09/26/2021 at 12:27 PM Kevin Britton MD DIAGNOSTIC IMAGING ORDERABLES documented in this encounter Visit Diagnoses Diagnosis Primary osteoarthritis of left knee Primary localized osteoarthrosis, lower leg documented in this encounter Care Teams Bed And Breakfast Innkeeper Relationship Specialty Start Date End Date Willis Veras MD [address]16 [place] [address] PCP - General 05/03/21 Cole Ku MD [address] OF [facility] [place] [address] General Surgery 11/10/20 documented as of this encounter
--- OUTSIDE RECORDS SUMMARY | 2024-04-25 14:03 | XMS_ITS | Encounter Summary ---
Author Organization [facility] Address [address] [place] [address] Care Team Providers Care Scarfer Name Role Phone Cole Ku MD Unavailable Willis Veras MD Primary Care Provider Encounter Details Date Type Department Care Team (Latest Contact Info) Description 08/06/2021 Travel Social History Tobacco Use Types Packs/Day [...] st Contact Info) Description 06/02/2024 10:30 AM ORGANIC SEARCH LEAD Office Visit [facility] - Orthopedic Surgery [facility] [place] [phone] Kevin Britton MD 1031 [facility] 280 [place] [address] 08/10/2024 1:00 PM CDT Office Visit [facility] - SENIOR HRIS ANALYST 1031 [facility] 400 [place] [phone] Daja Mir MD 5707 [facility] [place] [address] 10/26/2024 1:00 PM CDT Office Visit [facility] - Hematology/Oncology 3655 [place] [phone] Elizabeth Garcia MD 3665 [facility] 3 [place] [address] 01/17/2025 12:30 PM CDT Procedure visit [facility] - GI [address] [place] [phone] 01/17/2025 1:00 PM CDT Office Visit [facility] - GI [address] [place] [phone] Marlena Mccoy, RADIO PRESENTER-HEARING SCREENER [address] [place] [address] 3[facility] [place] [address] documented as of this encounter Goals Goal Patient Goal Type Associated Problems Recent Progress Patient-Stated? Author Mobility General On track( 021 9:08 AM ORGANIC SEARCH LEAD) No Tika Pope, RN Note: Expected end [...] on filedocumented in this encounter Care Teams Scarfer Relationship Specialty Start Date End Date Willis Veras MD [address] [place] [address] PCP - General 05/03/21 Cole Ku MD [address] OF [facility] [place] [address] General Surgery 11/10/20 documented as of this encounter
--- OUTSIDE RECORDS SUMMARY | 2024-04-25 14:03 | XMS_ITS | Encounter Summary ---
Author Organization [facility] Address [address] [place] [address] Care Team Providers Care Marine Equipment Design Engineer Name Role Phone Cole Ku MD Unavailable Willis Veras MD Primary Care Provider Encounter Details Date Type Department Care Team (Latest Contact Info) Description 08/06/2021 10:25 AM CDT - 08/06/2021 11:59 PM T Hospital Encounter [facility] [address] [place] [address] Araseli Byers MD [address] [place] [address] Discharge Disposition: Home or Self [...] 10 mg by mouth once daily 01/18/2022 meloxicam (MOBIC) 15 MG tabletIndications:Primary osteoarthritis of left knee Take 1 (one) tablet by mouth once daily 90 tablet 1 02/26/2021 08/28/2021 tamoxifen (NOLVADEX) 20 MG tablet Take 1 (one) tablet by mouth once daily 30 tablet 2 04/05/2021 08/13/2021 documented as of this encounter Plan of Treatment Upcoming Encounters Date Type Department Care Team (Late st Contact Info) Description 06/02/2024 10:30 AM RN TELEHEALTH Office Visit [facility] - Orthopedic Surgery [address] [place] [phone] Kevin Britton MD 1031 [facility] 280 [place] [address] 08/10/2024 1:00 PM CDT Office Visit [facility] - EVS ATTENDANT [address] [facility] 400 [place] [phone] Daja Mir MD [address] [facility] [place] [address] 10/26/2024 1:00 PM CDT Office Visit [facility] - Hematology/Oncology [address] [place] [phone] Elizabeth Garcia MD [address] [facility] 3 [place] [address] 01/17/2025 12:30 PM CDT Procedure visit [facility] [place] [address] [place] [address], [place] [phone] 01/17/2025 1:00 PM CDT Office Visit [facility] - GI [address] [place] [address], [place] [phone] Marlena Mccoy, MULTIPLE PUNCH PRESS OPERATOR-DATA COLLECTION TECHNICIAN [address] [place] [address] [address] [place] [address] documented as of this encounter Goals Goal Patient Goal Type Associated Problems Recent Progress Patient-Stated? Author Mobility General On track( 021 9:08 AM RN TELEHEALTH) No Tika Pope, SABRINA Note: Expected end [...] Procedure Name Priority Date/Time Associated Diagnosis Comments CBC W AUTO DIFFERENTIAL STAT 08/06/2021 10:49 AM CDT History of breast cancer Encounter for monitoring tamoxifen therapy COMPREHENSIVE METABOLIC PANEL STAT 08/06/2021 10:49 AM CDT History of breast cancer Encounter for monitoring tamoxifen therapy LIPID PROFILE STAT 08/06/2021 10:49 AM CDT History of breast cancer Encounter for monitoring tamoxifen therapy documented in this encounter Results * (ABNORMAL) LIPID PROFILE (08/06/2021 10:49 AM CDT) Cholesterol Total 194 <200 mg/dL 08/06/2021 11:28 AM [facility] HDL 45 >40 mg/dL 08/06/2021 11:28 AM [facility] Comment: ATP III Classification of HDL Cholesterol: ? <40 mg/dL: ??Considered a major risk factor. ? >60 mg/dL: ??Considered a negative risk factor. ? LDL Calculated 116(H) <100 mg/dL 08/06/2021 11:28 AM [facility] Comment: ATP III Classification of LDL Cholesterol: ?<100 mg/dL: ??Optimal ? 100 - 129 mg/dL: ??Near Optimal/Above Optimal ? 130 - 159 mg/dL: ??Borderline High ? 160 - 189 mg/dL: ??High ?>190 mg/dL: ??Very High ? Triglycerides 166(H) <150 mg/dL 08/06/2021 11:28 AM [facility] Comment: ATP III Classification of Triglycerides: ?<150 mg/dL: ??Normal ? 150 - 199 mg/dL: ??Borderline High ? 200 - 400 mg/dL: ??High ?>500 mg/dL: ??Very High Blood BLOOD SPECIMEN / Unknown Lab Venipuncture / Unknown 08/06/2021 10:49 AM CDT 08/06/2021 10:56 AM CDT Araseli Byers MD LAB - CHEMISTRY LD [facility] [address] [place] [address], [facility] [phone] * (ABNORMAL) COMPREHENSIVE METABOLIC PANEL (08/06/2021 10:49 AM [facility]) BUN 17 7 - 26 mg/dL 08/06/2021 11:28 AM [facility] Creatinine 1.02(H) 0.56 - 0.96 mg/dL 08/06/2021 11:28 AM [facility] Sodium 144 136 - 145 mmol/L 08/06/2021 11:28 AM [facility] Potassium 3.9 3.5 - 4.5 mmol/L 08/06/2021 11:28 AM [facility] Chloride 108(H) 98 - 107 mmol/L 08/06/2021 11:28 AM [facility] CO2 24 22 - 29 mmol/L 08/06/2021 11:28 AM [facility] Glucose 90 70 - 115 mg/dL 08/06/2021 11:28 AM [facility] Calcium 9.6 8.4 - 10.2 mg/dL 08/06/2021 11:28 AM [facility] Protein Total 7.3 6.0 - 8.3 g/dL 08/06/2021 11:28 AM [facility] Albumin 3.7 3.4 - 5.0 g/dL 08/06/2021 11:28 AM [facility] Bilirubin Total 0.4 0.2 - 1.2 mg/dL 08/06/2021 11:28 AM [facility] Alkaline Phosphatase 71 40 - 150 U/L 08/06/2021 11:28 AM [facility] ALT 24 5 - 55 U/L 08/06/2021 11:28 AM [facility] AST 30 5 - 34 U/L 08/06/2021 11:28 AM [facility] Anion Gap 16 8 - 18 08/06/2021 11:28 AM [facility] BUN/Creatinine Ratio 17 7 - 23 08/06/2021 11:28 AM [facility] Osmolality Calculated 299 270 - 300 mOsm/kg 08/06/2021 11:28 AM [facility] Albumin/Globulin Ratio 1.0(L) 1.1 - 2.3 08/06/2021 11:28 AM [facility] eGFR by CKD-EPI 64(L) >=90 mL/min/1.7 3 m2 08/06/2021 11:28 AM [facility] Blood BLOOD SPECIMEN / Unknown Lab Venipuncture / Unknown 08/06/2021 10:49 AM CDT 08/06/2021 10:56 AM CDT Araseli Byers MD LAB - CHEMISTRY ADILIAE PIOTR [address] [address], [facility] [phone] * CBC WITH DIFFERENTIAL (08/06/2021 10:49 AM T) WBC 6.8 3.5 - 10.5 10? 3 /uL 08/06/2021 11:04 AM [facility] RBC 4.31 3.80 - 5.20 10? 6 /uL 08/06/2021 11:04 AM [facility] Hemoglobin 13.0 12.0 - 15.6 g/dL 08/06/2021 11:04 AM [facility] Hematocrit 39.2 35.0 - 45.0 % 08/06/2021 11:04 AM [facility] MCV 91.0 80.7 - 98.3 fL 08/06/2021 11:04 AM [facility] MCH 30.2 26.7 - 34.0 pg 08/06/2021 11:04 AM [facility] MCHC 33.2 30.8 - 35.9 g/dL 08/06/2021 11:04 AM [facility] Platelet Count 182 150 - 400 10? 3 /uL 08/06/2021 11:04 AM [facility] RDW-SD 41.9 36.0 - 50.0 fL 08/06/2021 11:04 AM [facility] RDW-CV 12.6 11.2 - 14.8 % 08/06/2021 11:04 AM [facility] MPV 11.1 9.4 - 12.9 fL 08/06/2021 11:04 AM [facility] nRBC Absolute 0.00 0 10? 3 /uL 08/06/2021 11:04 AM [facility] nRBC Auto 0.0 0 /100 WBC 08/06/2021 11:04 AM [facility] Neutrophils % 55.9 35.0 - 70.0 % 08/06/2021 11:04 AM [facility] Lymphocytes % 34.9 20.0 - 43.0 % 08/06/2021 11:04 AM [facility] Monocytes % 6.9 5.0 - 13.0 % 08/06/2021 11:04 AM [facility] Eosinophils % 1.5 0.0 - 6.0 % 08/06/2021 11:04 AM [facility] Basophil % 0.4 0.0 - 2.0 % 08/06/2021 11:04 AM [facility] Neutrophils Absolute 3.8 1.6 - 7.0 10? 3 /uL 08/06/2021 11:04 AM [facility] Lymphocyte Absolute 2.4 1.1 - 3.9 10? 3 /uL 08/06/2021 11:04 AM [facility] Monocytes Absolute 0.47 0.26 - 1.07 10? 3 /uL 08/06/2021 11:04 AM [facility] Eosinophils Absolute 0.10 0.00 - 0.47 10? 3 /uL 08/06/2021 11:04 AM [facility] Basophils Absolute 0.03 0.00 - 0.08 10? 3 /uL 08/06/2021 11:04 AM [facility] Immature Granulocytes % 0.4 0.0 - 1.0 % 08/06/2021 11:04 AM [facility] Immature Granulocytes Absolute 0.03 08/06/2021 11:04 AM [facility] Blood BLOOD SPECIMEN / Unknown Lab Venipuncture / Unknown 08/06/2021 10:49 AM CDT 08/06/2021 10:56 AM CDT Araseli Byers MD LAB - HEMATOLOGY ORD ERABLES [facility] [address] [place] [address], [facility] [phone] documented in this encounter Visit Diagnoses Diagnosis History of breast cancer Personal history of malignant neoplasm of breast Encounter for monitoring tamoxifen therapy Encounter for therapeutic drug monitoring documented in this encounter Care Teams Marine Equipment Design Engineer Relationship Specialty Start Date End Date Willis Veras MD [address] [place] [address] PCP - General 05/03/21 Cole Ku MD [address] [facility] 2L [place] [address] General Surgery 11/10/20 documented as of this encounter
--- OUTSIDE RECORDS SUMMARY | 2024-04-25 14:03 | XMS_ITS | Encounter Summary ---
Author Organization [facility] Address [address] [place] [address] Care Team Providers Care Technical Director Name Role Phone Cole Ku MD Unavailable Willis Veras MD Primary Care Provider Reason for Referral * Radiology Services (Routine) - Closed Specialty Diagnoses / Procedures Referred By Americo peters Referred To Contact Gastroenterology Diagnoses NAFLD (nonalcoholic fatty liver disease) Procedures PROC FIBROSCAN Marlena Mccoy APRN-ANIMATOR [address] [place] [address] [facility] [address] [facility]5 [place] [address] Referral ID Status Reason Start Date Expiration Date Visits Re quested Visits Authorized [id number] Closed 01/18/2022 01/18/2023 1 1 Reason for Visit * Reason Comments Liver Problem NAFLD Encounter Details Date Type Department Care Team (Late st Contact Info) Description 01/18/2022 10:00 AM CDT Office Visit [facility] [place] [address] Marlena Mccoy APRN-ANIMATOR [address] [facility] [place] [address] NAFLD (nonalcoholic fatty liver disease) (Primary Dx); Malignant neoplasm of female breast, unspecified estrogen receptor status, unspecified laterality, unspecified site of breast (HCC); Benign neoplasm of colon, unspecified part of colon; Obesity, unspecified classification, unspecified obesity type, unspecified whether serious comorbidity present; Body mass index (BMI) 32.0-32.9, adult Social History Tobacco Use Types Packs/Day Years [...] Sign Reading Time Taken Comments Blood Pressure 147/83 01/18/2022 9:46 AM CDT Pulse 60 01/18/2022 9:46 AM CDT Temperature 36.6 ??C (97.8 ??F) 01/18/2022 9:46 AM CD T Respiratory Rate 18 01/18/2022 9:46 AM CDT Oxygen Saturation 100% 01/18/2022 9:46 AM CDT Inhaled Oxygen Concentration - - Weight 94.8 kg (209 lb) 01/18/2022 9:46 AM CDT Height - - Body Mass Index 32.73 07/13/2021 10:33 AM ETL BI DEVELOPER documented in this encounter Functional Status Functional [...] this encounter Progress Notes * Marlena Mccoy, POWER LINEMAN-ANIMATOR - 01/18/2022 9:55 AM CDT I saw Ms. Torres in Liver Clinic at [facility] today for follow up visit regarding: [...] lot of boxes. 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 She is scheduled to get cholecystectomy in December. She has occasional epigastric pain, contributes to soda.?? clinic visit #3 Milagros Torres is a [...] day otherwise drinks water throughout the day. Chief Complaint Patient presents with ??? Liver Problem NAFLD Patient Active Problem List: Anxiety Benign essential HTN Depression Malignant neoplasm of upper-inner quadrant of left breast in female, estrogen receptor positive NAFLD (nonalcoholic fatty liver disease) Interim history: Milagros Torres is s 56 year old female in clinic for follow up regarding NAFLD. Since last visit she has gained a few pounds from previous visit. She is scheduled for knee replacement on the of this month at [facility] and hoping to be back in exercising once she recovers from surgery. Currentlyher knee is not allowing for exercise. She is drinking about 1 soda per day. She eats out a lot, contributed to working 9 hours/day with [address] to and from work. During the week her boyfriend is gone for work (over the road maintenance truck driver) and she finds it easier to grab something quick. Sheusually cooks once he is home on the weekends. Today she denies any other complaints. Current Outpatient Medications Medication Sig ??? calcium 600 MG tablet Take 1 tablet by mouth daily with food ??? losartan - hydroCHLOROthiazide (Hyzaar) 50-12.5 MG tablet Take 1 tablet by mouth once daily ??? meloxicam (MOBIC) 15 MG tablet Take 1 (one) tablet by mouth once daily ??? tamoxifen (NOLVADEX) 20 MG tablet TAKE 1 TABLET BY MOUTH EVERY DAY ??? Vitamin D3, cholecalciferol, 50 MCG (2000 UT) tablet Take 1 tablet by mouth once daily No current facility-administered medications for this visit. She??describes her??current average alcohol consumption as occasional. Maybe a couple drinks per month.? cigarette smoker??no ?? Family History of Liver disease: no?? Social History Social History Narrative ??? Not on file Review of systems: Chest pain: none. Shortness of breath: none. Nausea and vomiting: none. Constipation or diarrhea: none. Upper or lower GI bleeding: none. On exam today, she appeared obese, alert and anicteric. I reviewed today's vital signs with the patient. Vitals: 01/18/22 0946 BP: 147/83 Pulse: 60 Resp: 18 Temp: 97.8 ??F (36.6 ??C) SpO2: 100% Weight: 94.8 kg (209 lb) Body mass index is 32.73 kg/m??. Wt Readings from Last 3 Encounters: 01/18/22 94.8 kg (209 lb) 08/06/21 92 kg (202 lb 14.4 oz) 07/13/21 91.8 kg (202 lb 6.4 oz) Lungs were clear to auscultation bilaterally. Heart sounds were regular rate and rhythm. There were no murmurs. Abdomen was obese, soft and nontender. Liver edge palpable: no. Spleen palpable: no. Ascites: none. Hernias: none. Pretibial edema: none. Relevant test results: Recent Labs Component Name 08/06/21 1049 01/15/21 1023 11/27/20 0947 07/03/20 1019 05/12/20 1028 TBILI 0.4 0.4 0.3 0.4 0.5 ALKPHOS 71 78 69 78 78 ALT 24 18 32 22 43 AST 30 27 34 25 54* ALB 3.7 3.6 3.5 3.9 3.8 NA 144 141 146* 143 139 POTASSIUM 3.9 3.9 4.0 4.1 3.9 CO2 24 22 29 25 26 CREATININE 1.02* 0.92 1.00* 1.0 1.0 BUN 17 8 13 14 17 HGB 13.0 12.3 - 13.3 12.8 WBC 6.8 5.4 - 7.3 7.3 PLTCOUNT 182 165 - 166 182 INR - - - - 1.0 Ferritin 132 Iron 126 Transferrin 317 ÁLVARO none detected Hepatitis B Surface Antibody Quantitative Hepatitis B Virus Surface Antibody Hepatitis B Surface Antigen Hepatitis B Core Antibody IgG non reactive Hepatitis C Antibody non reactive HIV IgG 1474 Ultrasound 01/18/22 IMPRESSION: ?? 1.Diffuse hepatic steatosis without discrete hepatic lesion or intrahepatic biliary dilatation. 2.Status post cholecystectomy. US 03/24/20 IMPRESSION: ?? 1. Diffuse hepatic steatosis without discrete hepatic lesion or intrahepatic biliary dilation. Patent hepatic vasculature. 2. Cholelithiasis without evidence of acute cholecystitis. 3. Normal renal size. No evidence of nephrolithiasis or hydronephrosis ? Fibroscan 11/10/20 kPa 9.4 CAP 332 Colonoscopy 09/18/20 Impression: ? - The examined [...] (C): - ??Tubular adenoma ?? Assessment: 1. NAFLD 2. breast CA, on Tomoxifen 3. obesity 4. adenomatous polyps Plan: 1. She will get blood work at [facility] 2. She will return to the liver clinic in 1 year with fibroscan same day 3. Specific recommendations were provided regarding diet and exercise including the avoidance of sugar sweetened beverages and dietary trans-fats. weight loss encouraged An appointment was scheduled for her to see me in followup in one year. Address letter to: Erma Neri MD [address] [facility] Of Hematology & Medical Oncology [facility] [place] [address] Copy to: Willis Veras MD [address] [facility] [address] BRINDA Campos [facility] Division of Gastroenterology and Hepatology Collaborating physician: Dr. Harjit Liu January 21, 2022 Orders Placed This Encounter ??? PROC FIBROSCAN ??? HEPATIC FUNCTION PANEL documented in this encounter Plan of Treatment Upcoming Encounters Date Type Department Care Team (Late st Contact Info) Description 06/02/2024 10:30 AM ETL BI DEVELOPER Office Visit [facility] - Orthopedic Surgery [address] [place] [phone] Kevin Britton MD [address] [facility] [address] [place] [address] 08/10/2024 1:00 PM CDT [facility] RIDING TEACHER [address] [facility] [address] [place] [phone] Daja Mir MD [address] [place] [address] 10/26/2024 1:00 PM CDT Office Visit [facility] - Hematology/Oncology [address] [place] [phone] Elizabeth Garcia MD [address] [facility] 3 [place] [address] 01/17/2025 12:30 PM CDT Procedure visit [facility] - GI [address] [place] [phone] 01/17/2025 1:00 PM CDT Office Visit [facility] - GI [address] [place] [phone] Marlena Mccoy APRN-CNP [address] [place] [address] [place] [address] documented as of this encounter Goals Goal Patient Goal Type Associated Problems Recent Progress Patient-Stated? Author Mobility General On track( 021 9:08 AM ETL BI DEVELOPER) No Tika Pope, RN Note: Expected [...] documented as of this encounter Results * ME LIVER ELASTOGRAPHY (01/17/2023 9:30 AM CDT) Narrative [...] patients with nonalcoholic fatty liver disease. Gastroenterology 2019;156:1106-5457. Iris MS, Abilio R, Van Natta ML, [...] and the Agile3+ and Agile4 scores (Masha, 2022). Cady TA, Van Natta ML, Reggie Myers, Elie A, et al. Validation of the accuracy of the FAST score for detecting patients with at-risk nonalcoholic steatohepatitis (LAMBERT) in a [place] cohort and comparison to other non-invasive algorithms. PLoS ONE (2021) 17: [id number]. Masha AJ, Curtis J, Zuri ZM, et al. Enhanced diagnosis of advanced fibrosis and cirrhosis in individuals with NAFLD using FibroScan-based Agile scores. J Hepatol (2022) 78: 247-259. Fibroscan LSM can also be used with laboratory parameters without formulas to assess prognosis. According to the Baveno-VII criteria (El, 202), Fibroscan LSM ?15 kPa plus a platelet count of ?[id number]/L rules out clinically significant portal hypertension (sensitivity and negative predictive value >90%) in patients with compensated advanced chronic liver disease. El R, Luis Gaffney, Aislinn G, Britney T, Shirley Frias on behalf of the Baveno VII Faculty. Baveno VII--Renewing consensus in portal hypertension. J Hepatol (2021) 76: 959-974 Assessing the likelihood of advanced fibrosis in patients with indeterminate liver stiffness measurement (LSM) by Fibroscan (e.g., 8-15 kPa) can be improved by also calculating the FIB-4 score (Darrel et al. Hepatology Communications 2019;3:6294-5974) or NAFLD Fibrosis score (Pitts et al. Clinical Gastroenterology and Hepatology 2019;17:3962-2146 using ??routine clinical data. Note: 1. Fibroscan [...] additional interpretive data was last updated 09/07/22.) [email or web address] Marlena Mccoy POWER LINEMAN-ANIMATOR PROCEDURE/M INOR SURGICAL ORDERABLES documented in this encounter Visit Diagnoses Diagnosis NAFLD (nonalcoholic fatty liver disease)- Primary Other chronic nonalcoholic liver disease Malignant neoplasm of female breast, unspecified estrogen receptor status, unspecified laterality, unspecified site of breast (HCC) Benign neoplasm of colon, unspecified part of colon Obesity, unspecified classification, unspecified obesity type, unspecified whether serious comorbidity present Body mass index (BMI) 32.0-32.9, adult NAFLD (nonalcoholic fatty liver disease) Other chronic nonalcoholic liver disease documented in this encounter Care Teams Technical Director Relationship Specialty Start Date End Date Willis Veras MD [address] [place] [address] PCP - General 05/03/21 Cole Ku MD [address] OF [facility] [place] [phone] General Surgery 11/10/20 documented as of this encounter
--- OUTSIDE RECORDS SUMMARY | 2024-04-25 14:03 | XMS_ITS | Encounter Summary ---
Author Organization [facility] Address [address] [place] [address] Care Team Providers Care Salesperson Flying Squad Name Role Phone Cole Ku MD Unavailable Willis Veras MD Primary Care Provider Encounter Details Date Type Department Care Team (Latest Contact Info) Description 01/22/2022 10:00 AM CDT - 01/22/2022 11:59 PM T Hospital Encounter [facility] [address] [phone] Kevin Britton MD 1031 [facility] [address] [place], [place] [phone] Discharge Disposition: Home or Self Care Social [...] Sign Reading Time Taken Comments Blood Pressure - - Pulse - - Temperature - - Respiratory Rate - - Oxygen Saturation - - Inhaled Oxygen Concentration - - Weight 93.4 kg (206 lb) 01/22/2022 10:18 AM CDT Height - - Body Mass Index 32.26 07/13/2021 10:33 AM GENERAL OFFICE CLERK documented in this encounter Functional Status Functional [...] times daily 60 tablet 02/01/2022 2 HYDROcodone-acetaminophen ([place]) 5-325 MG tablet Take 1 (one) tablet by mouth every 4 hours as needed for Pain 30 tablet 02/01/2022 2 meloxicam (MOBIC) 15 MG tabletIndications:Primary osteoarthritis of left knee Take 1 (one) tablet by mouth once daily 90 tablet 1 08/28/2021 2 nitrofurantoin monohyd macro crystals (Macrobid) 100 MG capsuleIndications:Unspec ified abnormal findings in urine Take 1 (one) capsule by mouth 2 times daily with morning and evening meal for 5 days 10 capsule 01/22/2022 2 tamoxifen (NOLVADEX) 20 MG tabletIndications:Encount er for monitoring tamoxifen therapy,History of breast cancer TAKE 1 TABLET BY MOUTH EVERY DAY 30 tablet 6 08/13/2021 2 documented as of this encounter Plan of Treatment Upcoming Encounters Date Type Department Care Team (Late st Contact Info) Description 06/02/2024 10:30 AM GENERAL OFFICE CLERK Office Visit [facility] - Orthopedic Surgery [address] [place] [phone] Kevin Britton MD 1031 [facility] [address] [place] [address] 08/10/2024 1:00 PM CDT Office Visit [facility] - CORPORATE TREASURY ANALYST 1031 [facility] [address] [place] [phone] Daja Mir MD [address] [facility] [place] [address] 10/26/2024 1:00 PM CDT Office Visit [facility] - Hematology/Oncology [address] [place] [phone] Elizabeth Garcia MD 3323 [facility] 3 [place] [address] 01/17/2025 12:30 PM CDT Procedure visit [facility] - GI [address] [place] [phone] 01/17/2025 1:00 PM CDT [facility] Visit [facility] - GI 1225 [facility], [place] [address] Marlena Mccoy, MILL OILER-BOTTOM LINER 1225 [facility] [place] [address] documented as of this encounter Goals Goal Patient Goal Type Associated Problems Recent Progress Patient-Stated? Author Mobility General On track( 021 9:08 AM GENERAL OFFICE CLERK) No Tika Pope, RN Note: Expected [...] Procedure Name Priority Date/Time Associated Diagnosis Comments URINE MICROSCOPIC ONLY REFLEX TO CULTURE Routine 01/22/2022 10:15 AM CDT Pre-op testing CULTURE MSSA/MRSA Pre-Op 01/22/2022 10: 15 AM CDT Pre-op testing URINALYSIS REFLEX MICROSCOPIC REFLEX CULTURE Pre-Op 01/22/2022 10:15 AM CDT Pre-op testing TRANSFERRIN Pre-Op 01/22/2022 10:15 AM CDT Pre-op testing HEMOGLOBIN A1C Routine 01/22/2022 10:15 AM CDT Pre-op testing FRUCTOSAMINE Routine 01/22/2022 10:15 AM CDT Pre-op testing CULTURE URINE Routine 01/22/2022 10:15 AM CDT Pre-op testing CBC W AUTO DIFFERENTIAL STAT 01/22/2022 10:15 AM CDT Pre-op testing COMPREHENSIVE METABOLIC PANEL Pre-Op 01/22/2022 10:15 AM CDT Pre-op testing documented in this encounter Results * CULTURE URINE (01/22/2022 10:15 AM CDT) Culture Urine 10,000-50,000 CFU/mL urogenital dary KIRAN 01/24/2022 12:28 AM CDT [facility] Urine URINE SPECIMEN OBTAINED BY CLEAN CATCH PROCEDURE / Unknown Collection / Unknown 01/22/2022 10:15 AM CDT 01/22/2022 10:31 AM CDT Kevin Britton MD LAB - MICROBIOLOGY ORDERABLES [facility] [address] [place] [address], [facility] [phone] * (ABNORMAL) URINE MICROSCOPIC ONLY REFLEX TO CULTURE (01/22/2022 10:15 AM CDT) Reflex Status Culture to follow 01/22/2022 11:01 AM CDT [facility] RBC UA 0-2 0 - 5 # /hpf 01/22/2022 11:01 AM CDT [facility] WBC UA 0-5 0 - 5 # /hpf 01/22/2022 11:01 AM CDT [facility] Bacteria UA Trace(A) None Seen 01/22/2022 11:01 AM CDT [facility] Squamous Epithelial Cells 3-5 0 - 5 /hpf 01/22/2022 11:01 AM CDT [facility] Mucus UA 4+ /LPF 01/22/2022 11:01 AM CDT [facility] Hyaline Casts 0-2 0 - 2 /LPF 01/22/2022 11:01 AM CDT [facility] Urine URINE SPECIMEN OBTAINED BY CLEAN CATCH PROCEDURE / Unknown Collection / Unknown 01/22/2022 10:15 AM CDT 01/22/2022 10:31 AM CDT Narrative [facility] - 01/22/2022 11:01 AM CDT Kevin Britton MD LAB - URINALYSIS OR DERABLES [facility] [address] [place] [address] * (ABNORMAL) URINALYSIS REFLEX MICROSCOPIC REFLEX CULTURE (01/22/2022 10:15 AM CDT) Color UA Yellow Straw, Yellow 01/22/2022 10:44 AM CDT [facility] Clarity UA Slt Cloudy(A) Clear 01/22/2022 10:44 AM CDT [facility] Glucose UA Negative Negative 01/22/2022 10:44 AM CDT [facility] Bilirubin UA Negative Negative 01/22/2022 10:44 AM CDT [facility] Ketone UA Negative Negative 01/22/2022 10:44 AM CDT [facility] Specific [place] UA 1.019 1.005 - 1.030 01/22/2022 10:44 AM CDT [facility] Blood UA 1+(A) Negative 01/22/2022 10:44 AM CDT [facility] pH UA 5.0 5.0 - 8.0 pH 01/22/2022 10:44 AM CDT [facility] Protein UA Negative Negative 01/22/2022 10:44 AM CDT [facility] Urobilinogen UA Negative Negative mg/dL 01/22/2022 10:44 AM CDT [facility] Nitrite UA Negative Negative 01/22/2022 10:44 AM CDT [facility] Leukocyte UA Trace(A) Negative 01/22/2022 10:44 AM CDT [facility] Urine Microscopy Urine microscopy to follow 01/22/2022 10:44 AM CDT [facility] Reflex Status Culture to follow 01/22/2022 10:44 AM T [facility] Urine URINE SPECIMEN OBTAINED BY CLEAN CATCH PROCEDURE / Unknown Collection / Unknown 01/22/2022 10:15 AM CDT 01/22/2022 10:31 AM CDT Narrative [facility] - 01/22/2022 10:44 AM CDT Kevin Britton MD LAB - URINALYSIS OR DERABLES [facility] [address] [place] [address] * FRUCTOSAMINE (01/22/2022 10:15 AM CDT) Fructosamine 216 0 - 285 umol/L 01/23/2022 8:15 AM CDT [facility] ([facility]) Comment: Published reference interval for apparently healthy subjects between age 20 and 60 is 205 - 285 umol/L and in a poorly controlled diabetic population is 228 - 563 umol/L with a mean of 396 umol/L. Blood BLOOD SPECIMEN / Unknown Venipuncture / Unknown 01/22/2022 10:15 AM CDT 01/22/2022 10:31 AM CDT Narrative [facility] ([facility]) - 01/23/2022 8:15 AM CDT Performed at: ??01 - [address] ??[id number] Vp Integration: Cecilio Phillips PhD, Phone: ??[phone] Kevin Britton MD LAB - CHEMISTRY ORD ERABLES Performing Organization Address City/[facility] Co de Phone Number [facility] ([facility]) [address] [place] [address] * HEMOGLOBIN A1C (01/22/2022 10:15 AM CDT) Hemoglobin A1c 5.1 <5.7 % 01/22/2022 11:05 AM CDT [facility] Estimated Average Glucose 100 mg/dL 01/22/2022 11:05 AM CDT [facility] Blood BLOOD SPECIMEN / Unknown Venipuncture / Unknown 01/22/2022 10:15 AM CDT 01/22/2022 10:31 AM CDT Narrative [facility] - 01/22/2022 11:05 AM CDT HbA1c [...] exceeds 5% in the specimen. The Green Duct Layer Supervisor assay for the measurement of HbA1c is a National Glycohemoglobin Standardization Program (NGSP) certified method. Kevin Britton MD LAB - CHEMISTRY ORD ERABLES Performing Organization Address City/[facility]/ZIP Co de Phone Number [facility] [address] [place], [place] [phone] * TRANSFERRIN (01/22/2022 10:15 AM CDT) Pathologist [facility] Transferrin 305 180 - 382 mg/dL 01/22/2022 11:01 AM CDT [facility] Blood BLOOD SPECIMEN / Unknown Venipuncture / Unknown 01/22/2022 10:15 AM CDT 01/22/2022 10:31 AM CDT Kevin Britton MD LAB - CHEMISTRY ORD [employer] [facility] [address] [place] [address] * CULTURE MSSA/MRSA (01/22/2022 10:15 AM CDT) Pathologist [facility] Culture Negative for Staphylococcus aureus (MRSA/MSSA) 01/24/2022 10:24 AM CDT [facility] Microbiology SPECIMEN FROM NASAL FOSSAE / Unknown Collection / Unknown 01/22/2022 10:15 AM CDT 01/22/2022 10:31 AM CDT Kevin Britton MD LAB - MICROBIOLOGY ORDERABLES [facility] [address] [place] [address], [facility] [phone] * (ABNORMAL) COMPREHENSIVE METABOLIC PANEL (01/22/2022 10:15 AM CDT) Glucose 91 70 - 105 mg/dL 01/22/2022 11:01 AM CDT [facility] Sodium 139 136 - 145 mmol/L 01/22/2022 11:01 AM CDT [facility] Potassium 3.8 3.5 - 5.1 mmol/L 01/22/2022 11:01 AM CDT [facility] Chloride 107 98 - 107 mmol/L 01/22/2022 11:01 AM CDT [facility] CO2 21(L) 23 - 31 mmol/L 01/22/2022 11:01 AM CDT [facility] Calcium 9.4 8.4 - 10.4 mg/dL 01/22/2022 11:01 AM CDT [facility] Anion Gap 11 8 - 18 mmol/L 01/22/2022 11:01 AM CDT [facility] BUN 20 9.8 - 20.1 mg/dL 01/22/2022 11:01 AM CDT [facility] Creatinine 1.15(H) 0.57 - 1.11 mg/dL 01/22/2022 11:01 AM CDT [facility] Alkaline Phosphatase 67 40 - 150 U/L 01/22/2022 11:01 AM CDT [facility] ALT 36 0 - 61 U/L 01/22/2022 11:01 AM CDT [facility] AST 51(H) 5 - 34 U/L 01/22/2022 11:01 AM CDT [facility] Protein Total 7.2 6.4 - 8.3 gm/dL 01/22/2022 11:01 AM CDT [facility] Albumin 4.1 3.5 - 5.2 gm/dL 01/22/2022 11:01 AM CDT [facility] Bilirubin Total 0.5 0.2 - 1.2 mg/dL 01/22/2022 11:01 AM CDT [facility] eGFR by CKD-EPI 56(L) >=90 mL/min/1.7 3 m2 01/22/2022 11:01 AM CDT [facility] Blood BLOOD SPECIMEN / Unknown Venipuncture / Unknown 01/22/2022 10:15 AM CDT 01/22/2022 10:31 AM CDT Kevin Britton MD LAB - CHEMISTRY ORD ERABLES [facility] [address] [place] [address] * CBC W AUTO DIFFERENTIAL (01/22/2022 10:15 AM CDT) WBC 5.3 4.4 - 10.7 x10E9/L 01/22/2022 10:43 AM CDT [facility] WBC Corrected 01/22/2022 10:43 AM CDT [facility] RBC 4.01 3.80 - 5.20 x10E12/L 01/22/2022 10:43 AM CDT [facility] Hemoglobin 12.1 12.0 - 15.6 gm/dL 01/22/2022 10:43 AM CDT [facility] Hematocrit 36.6 35.9 - 45.5 % 01/22/2022 10:43 AM CDT [facility] MCV 91.3 80.7 - 98.3 fl 01/22/2022 10:43 AM CDT [facility] MCH 30.2 26.7 - 34.0 pg 01/22/2022 10:43 AM CDT [facility] MCHC 33.1 30.8 - 35.9 gm/dL 01/22/2022 10:43 AM CDT [facility] Platelet Count 178 153 - 416 x10E9/L 01/22/2022 10:43 AM CDT [facility] RDW-CV 13.0 12.1 - 14.9 % 01/22/2022 10:43 AM CDT [facility] MPV 11.2 9.4 - 12.9 fl 01/22/2022 10:43 AM CDT [facility] Neutrophils % 49.5 44.0 - 73.0 % 01/22/2022 10:43 AM CDT [facility] Lymphocytes % 38.5 20.0 - 43.0 % 01/22/2022 10:43 AM CDT [facility] Monocytes % 8.0 5.0 - 13.0 % 01/22/2022 10:43 AM CDT [facility] Eosinophils % 3.0 0.0 - 6.0 % 01/22/2022 10:43 AM CDT [facility] Basophils % 0.6 0.0 - 2.0 % 01/22/2022 10:43 AM CDT [facility] Immature Granulocytes 0.4 0 - 1 % 01/22/2022 10:43 AM CDT [facility] Neutrophil Absolute 2.60 2.01 - 7.14 x10E9/L 01/22/2022 10:43 AM CDT [facility] Lymphocytes Absolute 2.02 1.07 - 3.94 x10E9/L 01/22/2022 10:43 AM CDT [facility] Monocytes Absolute 0.42 0.26 - 1.07 x10E9/L 01/22/2022 10:43 AM CDT [facility] Eosinophils Absolute 0.16 0 - 0.47 x10E9/L 01/22/2022 10:43 AM CDT [facility] Basophils Absolute 0.03 0 - 0.08 x10E9/L 01/22/2022 10:43 AM CDT [facility] Immature Granulocytes Absolute 0.02 0.00 - 0.06 x10E9/L 01/22/2022 10:43 AM CDT [facility] nRBC Auto 0 /100 WBC 01/22/2022 10:43 AM CDT [facility] Blood BLOOD SPECIMEN / Unknown Venipuncture / Unknown 01/22/2022 10:15 AM CDT 01/22/2022 10:31 AM CDT Kevin Britton MD LAB - HEMATOLOGY OR DERABLES [facility] [address] [place] [address] documented in this encounter Visit Diagnoses Diagnosis Pre-op testing- Primary Preoperative examination, unspecified documented in this encounter Care Teams Salesperson Flying Squad Relationship Specialty Start Date End Date Willis Veras MD [address] [place] [address] PCP - General 05/03/21 Cole Ku MD [address] OF [facility] [place] [address] General Surgery 11/10/20 documented as of this encounter
--- OUTSIDE RECORDS SUMMARY | 2024-04-25 14:03 | XMS_ITS | Encounter Summary ---
Author Organization [facility] Address [address] [place] [address] Care Team Providers Care Fire Extinguisher Tester Name Role Phone Cole Ku MD Unavailable Willis Veras MD Primary Care Provider Encounter Details Date Type Department Care Team (Latest Contact Info) Description 09/26/2021 11:45 AM CDT Office Visit [facility] Orthopedic Surgery [address] [place], [place] [phone] Kevin Britton MD [address] [phone] Primary osteoarthritis of left knee (Primary Dx) Social History Tobacco Use Types [...] Progress Notes * Kevin Britton MD - 09/26/2021 11:45 AM CDT Patient returns for repeat left knee injection. She feels like the injections are working less and less and it is getting to the point where she cannot stand or walk for any prolonged period of time or do her activities of daily living including cleaning her home or shopping for groceries because of her left knee pain. She would like to discuss knee arthroplasty at this time. She feels like the knee gives out on her as well. She does not feel like she can continue to live this way and would like to proceed sometime later in the fall. She has tried physical therapy, anti-inflammatories including meloxicam, vitamin D, and multiple injections without much improvement. Current Outpatient Medications on File Prior to Visit Medication Sig Dispense Refill ??? amLODIPine (NORVASC) 10 MG tablet Take 10 mg by mouth once daily ??? calcium 600 MG tablet Take 1 tablet by mouth daily with food 90 tablet 2 ??? lisinopril (PRINIVIL; ZESTRIL) 20 MG tablet Take 20 mg by mouth once daily ??? meloxicam (MOBIC) 15 MG tablet Take 1 (one) tablet by mouth once daily 90 tablet 1 ??? tamoxifen (NOLVADEX) 20 MG tablet TAKE 1 TABLET BY MOUTH EVERY DAY 30 tablet 6 ??? Vitamin D3, cholecalciferol, 50 MCG (1999 [...] Past Surgical History: Procedure Laterality Date ??? Breast Lumpectomy Left 09/04/2015 With sentinel node biopsy performed by Dr. Brittni Knight ??? Section 05/1990 ??? Cholecystectomy, Laparoscopic N/A 12/05/2020 N/A; LAPAROSCOPIC CHOLECYSTECTOMY ??? COLONOSCOPY N/A 09/18/2020 N/A; COLONOSCOPY SCREEN---extended prep with Cheesman ??? Dilation and Curettage twice Social History Occupational History ??? Not on file Tobacco Use ??? Smoking status: Never Smoker ??? Smokeless tobacco: Never Used Vaping Use ??? Vaping Use: Never used [...] Negative for claudication and leg swelling. Musculoskeletal: Positive for joint pain. Negative for falls. Skin: Negative for itching and rash. Neurological: Negative for focal weakness. All other systems reviewed and are negative. Physical exam: Patient is awake and alert BMI is 32 Facial expressions are appropriate with a mask in place Patient is cooperative with the examination Examination of the left knee reveals intact skin without signs of infection. There is mild effusion. She has a couple degrees short of full extension with no extension lag and she can flex past 110 degrees. Left knee is stable to varus valgus and anterior posterior stresses. Distally she can dorsiflex and plantarflex her ankle and toes without difficulty. X-rays: 4 views of the left knee reveal severe varus gonarthrosis with joint space narrowing, [id number] contact medially, sclerosis, and osteophyte formation Assessment: Left knee osteoarthritis here for repeat injection as well as surgical discussions Plan: We will proceed with repeat left knee injection today. Please see the procedure note for further details. We discussed risks and benefits at length with the patient today. She would like to proceed in February. She recently had dental work. We will get medical clearance. Conservative treatment for left knee DJD including >12 weeks of PT, NSAIDS, glucosamine/Vit D, ambulatory aids, weight loss, and corticosteroid injections has failed. Symptoms of pain, difficulty ambulating, difficulty standing, difficulty with stair climbing and difficulty with personal hygieneare interfering with patient's lifestyle. Will obtain medical clearance and schedule for left knee arthroplasty KOOS Score 09/26/2021 KOOS Score Left 55 Risks, benefits, and alternatives to the surgical procedure were discussed with the patient and present family members. Risks discussed among others were: Infection, bleeding/blood transfusion, neurovascular damage, prosthetic joint instability, failure to improve symptoms, venous thrombosis/pulmonary embolism, and anesthesia complications including . We also discussed the procedure at length and answered any of the patient's questions. We also discussed the importance of early motion and early active ankle pumps for DVT/PE prevention and demonstrated this to the patient and had active participation as well. Patient understood the treatment plan and all questions were answered. Kevin Britton MD documented in this encounter Procedure Notes * Kevin Britton MD - 09/26/2021 12:05 PM CDTAssociated Order(s): PROC INJECTION JOINT (SMALL/INTERMED/MAJOR) Procedure(s): CA DRAIN/INJECT LARGE JOINT/BURSA Pre-Procedure Diagnose(s): Primary osteoarthritis of left knee Orthopaedic Surgery Procedure Note Diagnosis: Left knee [...] reviewed. The patient was understanding and agreeable. The patient was placed into the appropriate position. The area was prepped with betadine and alcohol. Utilizing the peripatellar portal, the skin, subcutaneous, and pericapsular tissues were injectedwith 3 cc 1% lidocaine without epinephrine using a 21Ga needle. The patient's left knee joint was then entered. Confirmation of location inside the joint was evidenced by aspiration of straw colored synovial fluid. 2 cc of Kenalog/3cc lidocaine was injected into the joint. The needle was removed and the needle site cleaned with alcohol and dressed with a sterile bandage. The procedure was performed under sterile conditions. The patient tolerated the procedure well. Remainder of plan per note. Injection performed by: Myself Blood Loss: Minimal Kevin Britton MD 09/26/2021 12:05 PM documented in this encounter Plan of Treatment Upcoming Encounters Date Type Department Care Team (Late st Contact Info) Description 06/02/2024 10:30 AM COUNTY PROGRAM TECHNICIAN Office Visit [facility] - Orthopedic Surgery [facility] [place] [phone] Kevin Britton MD 1031 [facility] [address] [place] [address] 08/10/2024 1:00 PM CDT Office Visit [facility] - METAL INSPECTOR 10[address] [facility] [address] [place] [phone] Daja Mir MD [address] [place] [address] 10/26/2024 1:00 PM CDT Office Visit [facility] - Hematology/Oncology [address] [place] [phone] Elizabeth Garcia MD [address] [facility] 3 [place] [address] 01/17/2025 12:30 PM CDT Procedure visit [facility] - GI [address] [place] [phone] 01/17/2025 1:00 PM CDT Office Visit [facility] - GI [address] [place] [phone] Marlena Mccoy APRN-END POLISHER [address] [place] [address] documented as of this encounter Goals Goal Patient Goal Type Associated Problems Recent Progress Patient-Stated? Author Mobility General On track( 021 9:08 AM COUNTY PROGRAM TECHNICIAN) No Tika Pope, RN Note: Expected [...] Procedure Name Priority Date/Time Associated Diagnosis Comments CA DRAIN/INJECT LARGE JOINT/BURSA Routine 09/26/2021 12:05 PM CDT Primary osteoarthritis of left knee documented in this encounter Results * CA DRAIN/INJECT LARGE JOINT/BURSA (09/26/2021 12:05 PM CDT) [...] Britton MD PROCEDURE/MINOR ALCON GICAL ORDERABLES * XR KNEE LEFT 4VW OR MORE (09/26/2021 12:02 PM CDT) Anatomical Region Laterality Modality Lower Extremity Radiographic Alnea ging 09/26/2021 12:2 6 PM CDT Impressions [...] Visit Diagnoses Diagnosis Primary osteoarthritis of left knee- Primary Primary localized osteoarthrosis, lower leg Primary osteoarthritis of left knee Primary localized osteoarthrosis, lower leg documented in this encounter Administered Medications Inactive Administered Medications - up to 3 most recent administrations Medication Order MAR Action Action Date Dose Rate Site lidocaine (Xylocaine) 1 % injection 6 mL 6 mL, Infiltration, ONCE, 1 dose, On Fri09/26/21 at 1200 $ Given 09/26/2021 2:45 PM CDT 6 mL Left Knee triamcinolone acetonide (Kenalog-40) injection 80 mg 80 mg, Intra-articular, ONCE, 1 dose, On Fri09/26/21 at 1200, Shake well before using. $ Given 09/26/2021 2:45 PM CDT 80 mg Left Knee documented in this encounter Care Teams Fire Extinguisher Tester Relationship Specialty Start Date End Date Willis Veras MD [address] [place] [address] PCP - General 05/03/21 Cole Ku MD [address] [facility] 2L DIV OF [facility] [place] [address] General Surgery 11/10/20 documented as of this encounter
--- OUTSIDE RECORDS SUMMARY | 2024-04-25 14:04 | XMS_ITS | Encounter Summary ---
Author Organization [facility] Address [address] [place], [place] [address] [address] Care Team Providers Care Produce Wrapper Name Role Phone Asher Garrison MD Primary Care Provider [phone] Cole Ku MD Unavailable Encounter Details Date Type Department Care Team (Late st Contact Info) Description 01/15/2021 10:00 AM CDT Office Visit [facility] Hematology and Oncology-[address] [id number] Erma Neri MD 23 [facility] [address] [place] [address] Screening breast examination (Primary Dx) Social History Tobacco Use Types [...] have Coronavirus / COVID-19? No / Unsure 01/15/2021 10:00 AM CDT documented as of this encounter Last Filed Vital Signs Vital Sign Reading Time Taken Comments Blood Pressure 172/99 01/15/2021 10:35 AM CDT Pulse 60 01/15/2021 10:35 AM CDT Temperature 36.3 ??C (97.3 ??F) 01/15/2021 10:35 AM C DT Respiratory Rate 18 01/15/2021 10:35 AM CDT Oxygen Saturation 100% 01/15/2021 10:35 AM CDT Inhaled Oxygen Concentration - - Weight - - Height 170.2 cm (5' 7 ) 01/15/2021 10:35 AM CDT Body Mass Index - - documented in this encounter Functional Status Functional [...] as of this encounter Progress Notes * Erma Neri MD - 01/15/2021 10:44 AM CDT [facility] Hematology/Oncology Clinic Date of Visit: 01/15/2021 Attending Physician: Erma Neri MD PCP: Asher Garrison MD Breast Surgeon: Radiation Oncologist: Chief Complaint/Reason for Visit: Breast Cancer- side effect assessment visit on Tamoxifen History of Present Illness: Milagros presents today in follow up. She is on adjuvant Tamoxifen for left breast cancer. She is tolerating this well. She denies hot flashes, mood changes, night sweats, arthralgias, blurred vision, leg swelling, sob, vaginal spotting. She has stable chronic depression & anxiety. She has left knee arthritis and receives steroid shots q3 monthly . Oncologic History: Noted to have an abnormal screening mammogram in June or July of 2015. Referred to [facility], where a left breast biopsy performed on 07/25/15 showed ER+/ND+/HER/2- invasive ductal carcinoma. US-guided FNA of the axillary lymph node was performed at the same time which was negative for metastatic disease. A left partial mastectomy was performed on 09/04/2015 which showed 1.5 cm, grade 2 IDC (pathologic [id number]) with negative margins. [place] lymph node biopsy was negative (0/1). She had a Oncotype DX score of 17. She was premenopausal at the time of diagnosis and started on tamoxifen. Receivedleft accelerated partial breast radiation (3850 cGy) between 10/11-10/20/[address] Thee Larson. She was followed at [facility] by Dr. Kyrie Baltazar where her LFTs were noted to be mildly elevated on a few separate occasions. Since starting tamoxifen, she has not had any periods, but has had a few episodes of spotting. Had a D&C by her automotive accessory installer after US showed a thickened endometrial stripe. Negative for carcinoma or hyperplasia. Now 09/2019 undergoing D&C again due to vaginal bleeding. ?? Stage I ([id number]) ER+/ND+/HER/2- Left invasive ductal carcinoma -07/2015: Abnormal mammogram 07/25/15: Breast biopsy showed invasive ductal carcinoma. Both ER and ND had a Lauren score 8/8 and HER/2 was negative with IHC score of 0. Negative US-guided FNA procedure on axillary lymph node. 09/04/2015: Left breast lumpectomy with SLNB. Demonstrated a 1.5 cm grade 2 invasive ductal carcinoma. Negative margins. No lymphovascular invasion. Extensive lobular carcinoma in-situ was noted. Negative SLNB (0/1). BRCA 1/2 sequencing and deletion/duplication analysis was negative. Oncotype DX score of 17. Started on Tamoxifen. 10/11-10/20/15: left partial accelerated breast radiation (3850 cGy)? Past Medical History: Past Medical History: Diagnosis [...] Cheesman ??? Dilation and Curettage twice Social History: Social History Tobacco Use ??? Smoking status: Never Smoker ??? Smokeless tobacco: Never Used Substance Use Topics ??? Alcohol use: Yes Comment: ocassional weekends Family History: Family History Problem Relation Name Age of Onset ??? Cancer - Lung Mother ??? Cancer - Breast Sister Allergies: No Known Allergies Home Medications: Current Outpatient Medications Medication Sig ??? acetaminophen (TYLENOL) 500 MG tablet Take 2 (two) tablets by mouth every 8 hours as needed forPain Take Tylenol 1000 mg scheduled every 8 hs for the first 2 days after discharge, then can take it as needed for mild pain. Can alternate tylenol with Motrin and Oxycodone if needed Maximum allowable Acetaminophen amount = 4 Grams (4000 mg) / 24 hours. (Patient not taking: Reported on 01/10/2021) ??? calcium 600 MG tablet Take 1 tablet by mouth daily with food ??? docusate sodium (COLACE) 100 MG capsule Take 1 (one) capsule by mouth 2 times daily Take Colacewhile taking narcotics to prevent constipation. Hold for diarrhea or loose stools. Ok to discontinue when you stop taking narcotics. (Patient not taking: Reported on 01/10/2021) ??? meloxicam (MOBIC) 15 MG tablet Take 1 (one) tablet by mouth once daily ??? oxyCODONE, immediate release, (ROXICODONE) 5 MG tablet Take 1 (one) tablet by mouth every 6 hours as needed for Pain (Severe pain) (Patient not taking: Reported on 01/10/2021) ??? tamoxifen (NOLVADEX) 20 MG tablet Take 1 tablet by mouth ??? Vitamin D3, cholecalciferol, 50 MCG (2000 UT) tablet Take 1 tablet by mouth once daily No current facility-administered medications for this visit. I have reviewed all medications. Review of Systems: Positive symptoms are notated in bold - Constitutional: Fever, chills, night sweats, weight loss/gain, fatigue - HEENT: Sinus drainage, tenderness, congestion. - Cardiovascular: Chest pain, palpitations,dyspnea on exertion - Respiratory: Shortness of breath, asthma, wheezing - Gastrointestinal: Nausea, vomiting, diarrhea, constipation, abdominal pain. - Genitourinary: Dysuria, frequency, urgency, hematuria, - Musculoskeletal: arthralgias, myalgias - Neurological: Numbness, tingling, pain, dizziness, headache - Endocrine: Heat intolerance, cold intolerance - Psychiatric: Depression, psychosis - Integument/Breast: Rash, discoloration, breast lump - Heme/lymphatic: Bruising, bleeding, lymphadenopathy - Allergies: please see Allergies - All others negative Vital Signs and Physical Exam: ECO General: Well developed, well nourished, in no apparent distress Head: Atraumatic, normocephalic Eyes: PERRLA, EOMI Extremities: Appropriately warm, no edema, no cyanosis Neurologic: AO x 3, no focal neurologic deficits Skin: normal skin color & turgor Labs: Recent Labs Component Name 07/03/20 1019 05/12/20 1028 03/20/20 0921 WBC 7.3 7.3 5.8 RBC 4.52 4.28 4.29 HGB 13.3 12.8 12.8 HCT 40.2 38.9 39.9 MCV 88.9 90.9 93.0 MCHC 33.1 32.9 32.1 PLTCOUNT 166 182 173 NEUTPCT 55.7 63.6 56.2 NEUTABS 4.0 4.7 3.2 Recent Labs Component Name 11/27/20 0947 07/03/20 1019 05/12/20 1028 POTASSIUM 4.0 4.1 3.9 CO2 29 25 26 BUN 13 14 17 CREATININE 1.00* 1.0 1.0 GLUCOSE 83 86 79 CALCIUM 9.9 8.8 9.4 ALKPHOS 69 78 78 ALT 32 22 43 AST 34 25 54* EGFR 63* 58* 58* Radiology: BILATERAL DIAGNOSTIC MAMMOGRAM 10/13/19 IMPRESSION: No evidence of malignancy in either breast. ASSESSMENT: BI-RADS Category 2: Benign finding(s). Pathology: No New pathology Assessment and Recommendations: Milagros Torres is a 53 year old female with a history of stage I IDC, HTN, anxiety who presents today for scheduled follow up. ?? Stage I ([id number]) ER+/ND+/HER/2- Left invasive ductal carcinoma 2016 started Tamoxifen: Discussed risks benefits of transitioning to AI. She would like to continueTamoxifen likely for a 10 year course of treatment. This has been very well tolerated. ?? Tamoxifen monitoring:Side effects discussed include but are not limited to menopausal symptoms including hot flashes, mood changes, depression, fluid retention, weight loss, nausea, arthritis, arthralgias, DVT, PE , uterine cancer , cataracts, loss of BMD. - annual director sales training visit or if any vaginal bleeding: She is undergoing D&C next week for vaginal bleeding. - monitor lipids - repeat cbc, cmp and lipids annually RTC 6 months Erma Neri MD Software Engineer Developerfence repairman Hematology/Oncology [facility] documented in this encounter Plan of Treatment Upcoming Encounters Date Type Department Care Team (Late st Contact Info) Description 06/02/2024 10:30 AM RESPIRATORY CARE PROGRAM DIRECTOR Office Visit [facility] - Orthopedic Surgery [address] [place] [phone] Kevin Britton MD [address] [place] [address] 08/10/2024 1:00 PM CDT Office Visit [facility] - SPECIAL CLIENT BUS DRIVER [address] [facility] [address] [place] [address] Daja Mir MD [address] [facility] [place] [address] 10/26/2024 1:00 PM CDT Office Visit [facility] - Hematology/Oncology [address] [place] [phone] Elizabeth Garcia MD [address] [facility] 3 [place] [address] 01/17/2025 12:30 PM CDT Procedure visit [facility] - GI [address] [facility] [place] [address] 01/17/2025 1:00 PM CDT Office Visit [facility] - GI [address] [facility], [place] [phone] Marlena Mccoy, CARPET INSTALLER HELPER-MARKETING WRITER [address] [place] [address] [address] [place] [address] documented as of this encounter Goals Goal Patient Goal Type Associated Problems Recent Progress Patient-Stated? Author Mobility General On track( 021 9:08 AM RESPIRATORY CARE PROGRAM DIRECTOR) No Tika Pope, RN Note: Expected end [...] as of this encounter Visit Diagnoses Diagnosis Screening breast examination- Primary Other screening breast examination documented in this encounter Care Teams Produce Wrapper Relationship Specialty Start Date End Date Asher Garrison MD [address] [place] [address] PCP - General 08/25/18 05/02/21 Cole Ku MD [address] [place] [address] [address] [place] [phone] General Surgery 11/10/20 documented as of this encounter
--- OUTSIDE RECORDS SUMMARY | 2024-04-25 14:04 | XMS_ITS | Encounter Summary ---
Author Organization [facility] Health Address [address] [facility] [place] [address] Care Team Providers Care Exploration Geologist Name Role Phone Asher Garrison MD Primary Care Provider [phone] Cole Ku MD Unavailable Encounter Details Date Type Department Care Team (Latest Contact Info) Description 01/15/2021 10:19 AM CDT - 01/15/2021 11:59 PM CDT Hospital Encounter [facility]CER CARE DRAWSTATION [address] [facility], 2nd [place] [address] Discharge Disposition: Home or Self Care Social [...] Start Date End Date calcium 600 MG tabletIndications:Alcira min D deficiency, unspecified Take 1 tablet by mouth daily with food 90 tablet 2 03/23/2019 Vitamin D3, cholecalciferol, 50 MCG (2000 UT) tabletIndications:Alcira min D deficiency, unspecified Take 1 tablet by mouth once daily 90 tablet 2 03/23/2019 acetaminophen (TYLENOL) 500 MG tablet Take 2 (two) tablets by mouth every 8 hours as needed for Pain Take Tylenol 1000 mg scheduled every 8 hs for the first 2 days after discharge, then can take it as needed for mild pain. Can alternate tylenol with Motrin and Oxycodone if needed Maximum allowable Acetaminophen amount = 4 Grams (4000 mg) / 24 hours. 60 tablet 12/05/2020 07/13/2021 docusate sodium (COLACE) 100 MG capsule Take 1 (one) capsule by mouth 2 times daily Take Colace while taking narcotics to prevent constipation. Hold for diarrhea or loose stools. Ok to discontinue when you stop taking narcotics. 60 capsule 1 12/05/2020 07/13/2021 meloxicam (MOBIC) 15 MG tabletIndications:Prim priscila osteoarthritis of left knee Take 1 (one) tablet by mouth once daily 90 tablet 1 08/23/2020 02/25/2021 oxyCODONE, immediate release, (ROXICODONE) 5 MG tablet Take 1 (one) tablet by mouth every 6 hours as needed for Pain (Severe pain) 25 tablet 12/05/2020 07/13/2021 tamoxifen (NOLVADEX) 20 MG tablet Take 1 tablet by mouth 11/17/2015 04/05/2021 documented as of this encounter Plan of Treatment Upcoming Encounters Date Type Department Care Team (Late st Contact Info) Description 06/02/2024 10:30 AM GLYCERIN SUPERVISOR Office Visit [facility] - Orthopedic Surgery [address] [place] [phone] Kevin Britton MD [address] [facility] [address] [place] [address] 08/10/2024 1:00 PM CDT Office Visit [facility] - INSTRUMENTATION AND CONTROLS TECHNICIAN [address] [facility] [address] [place] [phone] Daja Mir MD [address] [facility] [place] [address] 10/26/2024 1:00 PM CDT Office Visit [facility] - Hematology/Oncology [address] [place] [phone] lEizabeth Garcia MD [address] [facility] [address] [place] [address] 01/17/2025 12:30 PM CDT Procedure visit [facility] - GI [address] [place] [address], [place] [phone] 01/17/2025 1:00 PM CDT Office Visit [facility] - GI [address] [place] [address], [place] [phone] Marlena Mccoy, CONSULTING SERVICES PROJECT MANAGER-MANAGER OF INTERNATIONAL [address] [place] [address] [place] [address] documented as of this encounter Goals Goal Patient Goal Type Associated Problems Recent Progress Patient-Stated? Author Mobility General On track( 021 9:08 AM GLYCERIN SUPERVISOR) No Tika Pope, RN Note: Expected end [...] Associated Diagnosis Comments VITAMIN D 25-HYDROXY LINDA 01/15/2021 10:23 AM CDT History of breast cancer CBC W AUTO DIFFERENTIAL STAT 01/15/2021 10:23 AM CDT History of breast cancer COMPREHENSIVE METABOLIC PANEL STAT 01/15/2021 10:23 AM CDT History of breast cancer documented in this encounter Results * VITAMIN D 25-HYDROXY (01/15/2021 10:23 AM CDT) [facility] Vitamin D, 25 Hydroxy 40.0 30.0 - 80.0 ng/mL 01/15/2021 11:25 AM CDT [facility] Comment: The recommendations for 25-Hydroxy Vitamin D clinical decision points are as follows: ? Deficient: ? <20.0 ng/mL ? Insufficient: ??20.0 - 29.9 ng/mL ? Sufficient: ? > or =30.0 ng/mL If the 25-Hydroxy Vitamin D results are inconsitent with clinical evidence, it is recommended that follow-up testing using a method such as LC/MS/MS be performed to confirm the result. Reference: ?The Endocrine Society Clinical Practice Guidelines. 2011 ? Blood BLOOD SPECIMEN / Unknown Lab Venipuncture / Unknown 01/15/2021 10:23 AM CDT 01/15/2021 10:38 AM CDT Erma Neri MD LAB - CHEMISTRY LD [place] Organization Address City/State/ZIP Co de Phone Number [facility] [address] [place] [address], [facility] [phone] * (ABNORMAL) COMPREHENSIVE METABOLIC PANEL (01/15/2021 10:23 AM CDT) BUN 8 7 - 26 mg/dL 01/15/2021 11:15 AM [facility]ORY [facility] Creatinine 0.92 0.56 - 0.96 mg/dL 01/15/2021 11:15 AM [facility] Sodium 141 136 - 145 mmol/L 01/15/2021 11:15 AM [facility] Potassium 3.9 3.5 - 4.5 mmol/L 01/15/2021 11:15 AM [facility] Chloride 109(H) 98 - 107 mmol/L 01/15/2021 11:15 AM [facility] CO2 22 22 - 29 mmol/L 01/15/2021 11:15 AM [facility] Glucose 96 70 - 115 mg/dL 01/15/2021 11:15 AM [facility] Calcium 9.4 8.4 - 10.2 mg/dL 01/15/2021 11:15 AM [facility] Protein Total 7.2 6.0 - 8.3 g/dL 01/15/2021 11:15 AM [facility] Albumin 3.6 3.4 - 5.0 g/dL 01/15/2021 11:15 AM [facility] Bilirubin Total 0.4 0.2 - 1.2 mg/dL 01/15/2021 11:15 AM [facility] Alkaline Phosphatase 78 40 - 150 U/L 01/15/2021 11:15 AM [facility] ALT 18 5 - 55 U/L 01/15/2021 11:15 AM [facility] AST 27 5 - 34 U/L 01/15/2021 11:15 AM [facility] Anion Gap 14 8 - 18 01/15/2021 11:15 AM [facility] BUN/Creatinine Ratio 9 7 - 23 01/15/2021 11:15 AM [facility] Osmolality Calculated 290 270 - 300 mOsm/kg 01/15/2021 11:15 AM [facility] Albumin/Globulin Ratio 1.0(L) 1.1 - 2.3 01/15/2021 11:15 AM [facility] eGFR by CKD-EPI 70(L) >=90 mL/min/1.7 3 m2 01/15/2021 11:15 AM [facility] Blood BLOOD SPECIMEN / Unknown Lab Venipuncture / Unknown 01/15/2021 10:23 AM CDT 01/15/2021 10:38 AM [facility] Erma Neri MD LAB - CHEMISTRY LD SALDAÑA [facility] Organization Address City/State/ZIP Co de Phone Number [address] [address] [phone] * CBC WITH DIFFERENTIAL (01/15/2021 10:23 AM [facility]) WBC 5.4 3.5 - 10.5 10? 3 /uL 01/15/2021 10:47 AM [facility] RBC 4.28 3.80 - 5.20 10? 6 /uL 01/15/2021 10:47 AM [facility] Hemoglobin 12.3 12.0 - 15.6 g/dL 01/15/2021 10:47 AM [facility] Hematocrit 38.0 35.0 - 45.0 % 01/15/2021 10:47 AM [facility] MCV 88.8 80.7 - 98.3 fL 01/15/2021 10:47 AM [facility] MCH 28.7 26.7 - 34.0 pg 01/15/2021 10:47 AM [facility] MCHC 32.4 30.8 - 35.9 g/dL 01/15/2021 10:47 AM [facility] Platelet Count 165 150 - 400 10? 3 /uL 01/15/2021 10:47 AM [facility] RDW-SD 40.2 36.0 - 50.0 fL 01/15/2021 10:47 AM [facility] RDW-CV 12.4 11.2 - 14.8 % 01/15/2021 10:47 AM [facility] MPV 11.1 9.4 - 12.9 fL 01/15/2021 10:47 AM [facility] nRBC Absolute 0.00 0 10? 3 /uL 01/15/2021 10:47 AM [facility] nRBC Auto 0.0 0 /100 WBC 01/15/2021 10:47 AM [facility] Neutrophils % 51.9 35.0 - 70.0 % 01/15/2021 10:47 AM [facility] Lymphocytes % 37.2 20.0 - 43.0 % 01/15/2021 10:47 AM [facility] Monocytes % 6.4 5.0 - 13.0 % 01/15/2021 10:47 AM [facility] Eosinophils % 3.9 0.0 - 6.0 % 01/15/2021 10:47 AM [facility] Basophil % 0.4 0.0 - 2.0 % 01/15/2021 10:47 AM [facility] Neutrophils Absolute 2.8 1.6 - 7.0 10? 3 /uL 01/15/2021 10:47 AM [facility] Lymphocyte Absolute 2.0 1.1 - 3.9 10? 3 /uL 01/15/2021 10:47 AM [facility] Monocytes Absolute 0.35 0.26 - 1.07 10? 3 /uL 01/15/2021 10:47 AM [facility] Eosinophils Absolute 0.21 0.00 - 0.47 10? 3 /uL 01/15/2021 10:47 AM [facility] Basophils Absolute 0.02 0.00 - 0.08 10? 3 /uL 01/15/2021 10:47 AM [facility] Immature Granulocytes % 0.2 0.0 - 1.0 % 01/15/2021 10:47 AM [facility] Immature Granulocytes Absolute 0.01 01/15/2021 10:47 AM CDT [facility] Blood BLOOD SPECIMEN / Unknown Lab Venipuncture / Unknown 01/15/2021 10:23 AM CDT 01/15/2021 10:38 AM CDT Erma Neri MD LAB - HEMATOLOGY ORD ERABLES [facility] [address] [place] [address], [facility] [phone] documented in this encounter Visit Diagnoses Diagnosis History of breast cancer Personal history of malignant neoplasm of breast documented in this encounter Care Teams Exploration Geologist Relationship Specialty Start Date End Date Asher Garrison MD [address] [place] [address] PCP - General 08/25/18 05/02/21 Cole Ku MD [address] [place] [address] [address] [place] [address] General Surgery 11/10/20 documented as of this encounter
--- OUTSIDE RECORDS SUMMARY | 2024-04-25 14:04 | XMS_ITS | Encounter Summary ---
Author Organization [facility] Address [address] [facility] [place] [address] Care Team Providers Care Yard Coupler Name Role Phone Cole Ku MD Unavailable Willis Veras MD Primary Care Provider Reason for Referral * Radiology Services (Routine) - Closed Specialty Diagnoses / Procedures Referred By Americo peters Referred To Contact Ultrasound Diagnoses NAFLD (nonalcoholic fatty liver disease) Procedures US ABDOMEN LIMITED Marlena Mccoy APRN-CNP [address] [place] [address] [address] [place] [address] [facility] [address] [place] [address] Referral ID Status Reason Start Date Expiration Date Visits Re quested Visits Authorized [id number] Closed 07/13/2021 07/13/2022 1 1 H CAREER SPECIALIST Reason for Visit * Reason Comments Liver Problem NAFLD Encounter Details Date Type Department Care Team ([facility] Contact Info) Description 07/13/2021 10:30 AM YOUTH CAREER SPECIALIST Office Visit [facility] GI [address] [facility], [place] [address] Marlena Mccoy APRN-CNP [address] [place] [address] [address] [place] [address] NAFLD (nonalcoholic fatty liver disease) (Primary Dx) [...] Sign Reading Time Taken Comments Blood Pressure 156/90 07/13/2021 10:33 AM YOUTH CAREER SPECIALIST Pulse 73 07/13/2021 10:33 AM YOUTH CAREER SPECIALIST Temperature 36.6 ??C (97.9 ??F) 07/13/2021 10:[address] Respiratory Rate 16 07/13/2021 10:33 AM YOUTH CAREER SPECIALIST Oxygen Saturation 100% 07/13/2021 10:33 AM YOUTH CAREER SPECIALIST Inhaled Oxygen Concentration - - Weight 91.8 kg (202 lb 6.4 oz) 07/13/2021 10:33 AM YOUTH CAREER SPECIALIST Height 170.2 cm (5' 7 ) 07/13/2021 10:33 AM YOUTH CAREER SPECIALIST Body Mass Index 31.7 07/13/2021 10:33 AM YOUTH CAREER SPECIALIST documented in this encounter Functional Status Functional [...] encounter Patient Instructions * Patient Instructions* Marlena Mccoy APRN-MUTUEL CLERK - 07/13/2021 11:13 AM YOUTH CAREER SPECIALIST 1. blood work as scheduled with oncology 2.Ultrasound with return to clinic in 6 months 3. Mediterranean diet is great for the liver. Discussed reasons for exercise, calorie reduction and weight loss. Dietary and exercise advice for fatty liver disease and diabetes or pre-diabetes A. Avoid all sugar sweetened beverages including soda pop and sweet tea B. Eat real food (fruits vegetables meat fish) not processed foods C. Avoid foods labelled as light, low fat or fat free as they usually contain excess sugars D. Do not eat anything you do not like but be open to trying new types of food E. Eat when you are hungry. Don't eat when you are not. Eat slowly enjoy your food and listen to your body when it tells you you are full F. Limit grains, potatoes and sugar as they tend to be stored as fat and avoid trans fats (hydrogenated oils) because they are toxic to your body G. Goal to exercise 3-4 times a week 45 minutes at a time (you may want to start with 15 minutes and add 3 minutes more every week till you hit the goal); discuss with your PCP before starting an exercise program. Exercise can be rapid walking, jogging, bicycling, aerobics, elliptical, treadmill orother cardio work outs. H CAREER SPECIALIST documented in this encounter Progress Notes * Marlena Mccoy APRN-CNP - 07/13/2021 11:00 AM CST Images from the original note were not included. I saw Ms. Torres in [facility] today for follow up visit regarding: [...] acute cholecystitis. ??She wants cholecystectomy d/t this pain. clinic visit [...] at work including moving alot of boxes. 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 She is scheduled to get cholecystectomy in December. She has occasional epigastric pain, contributes to soda. Chief Complaint Patient presents with ??? Liver Problem NAFLD Patient Active Problem List: Anxiety Benign essential HTN Depression Malignant neoplasm of upper-inner quadrant of left breast in female, estrogen receptor positive NAFLD (nonalcoholic fatty liver disease) Interim history: Milagros Torres is a 55 year old [...] day otherwise drinks water throughout the day. Current Outpatient Medications Medication Sig ??? amLODIPine (NORVASC) 10 MG tablet Take 10 mg by mouth once daily ??? calcium 600 MG tablet Take 1 tablet by mouth daily with food ??? meloxicam (MOBIC) 15 MG tablet Take 1 (one) tablet by mouth once daily ??? tamoxifen (NOLVADEX) 20 MG tablet Take [...] today's vital signs with the patient. Vitals: 07/13/21 1033 BP: 156/90 Pulse: 73 Resp: 16 Temp: 97.9 ??F (36.6 ??C) SpO2: 100% Weight: 91.8 kg (202 lb 6.4 oz) Height: 1.702 m (5' 7 ) Body mass index is 31.7 kg/m??. Wt Readings from Last 3 Encounters: 07/13/21 91.8 kg (202 lb 6.4 oz) 06/26/21 88.5 kg (195 lb) 01/10/21 87.1 kg (192 lb) . Lungs were clear to auscultation bilaterally. Heart sounds were regular rate and rhythm. There were no murmurs. Abdomen was obese, soft and nontender. Liver edge palpable: no. Spleen palpable: no. Ascites: none. Hernias: none. Pretibial edema: none. Relevant test results: Recent Labs Component Name 01/15/21 1023 11/27/20 0947 07/03/20 1019 05/12/20 1028 05/12/20 1028 TBILI 0.4 0.3 0.4 - 0.5 ALKPHOS 78 69 78 - 78 ALT 18 32 22 - 43 AST 27 34 25 - 54* ALB 3.6 3.5 3.9 - 3.8 NA 141 146* 143 - 139 POTASSIUM 3.9 4.0 4.1 - 3.9 CO2 22 29 25 - 26 CREATININE 0.92 1.00* 1.0 - 1.0 BUN 8 13 14 - 17 HGB 12.3 - 13.3 - 12.8 WBC 5.4 - 7.3 - 7.3 PLTCOUNT 165 - 166 - 182 INR - - - - 1.0 - = values in this interval not displayed. ? US 03/24/20 IMPRESSION: ?? 1. Diffuse hepatic steatosis without discrete hepatic lesion or intrahepatic biliary dilation. Patent hepatic vasculature. 2. Cholelithiasis without evidence of acute cholecystitis. 3. Normal renal size. No evidence of nephrolithiasis or hydronephrosis ? Fibroscan 11/10/20 kPa 9.4 CAP 332 ? Colonoscopy 09/18/20 Impression: ? - The examined [...] on Tomoxifen 3. obesity 4. adenomatous polyps . Plan: 1. ultrasound with RTC in 6 months 2. She will be getting blood work soon through oncologist and will notify our office once she does to review 3. Specific recommendations were provided regarding diet and exercise including the avoidance of sugar sweetened beverages and dietary trans-fats. weight loss encouraged An appointment was scheduled for her to see me in followup in 6 months. Address letter to: Erma Neri MD [address] [facility] Div Of Hematology & [place] [address] Copy to: Willis Veras MD [address] [facility] [address] BRINDA Campos [facility] Division of Gastroenterology and Hepatology Collaborating physician: Dr. Harjit Liu July 13, 2021 Orders Placed This Encounter ??? US ABDOMEN LIMITED H CAREER SPECIALIST documented in this encounter Plan of Treatment Upcoming Encounters Date Type Department Care Team (Late st Contact Info) Description 06/02/2024 10:30 AM YOUTH CAREER SPECIALIST Office Visit [facility] - Orthopedic Surgery [address] [place] [phone] Kevin Britton MD 1031 [facility] 280 [place] [address] 08/10/2024 1:00 PM CDT Office Visit [facility] - TEST OPERATOR 1031 [facility] 400 [place] [phone] Daja Mir MD 5707 [facility] [place] [address] 10/26/2024 1:00 PM CDT Office Visit [facility] - Hematology/Oncology [address] [place] [phone] Elizabeth Garcia MD 36[address] [facility] 3 [place] [address] 01/17/2025 12:30 PM CDT Procedure visit [facility] GI [address] [facility], [place] [phone] 01/17/2025 1:00 PM CDT Office Visit [facility] GI [address] [facility], [place] [address] Marlena Mccoy, GRADES 1 THRU 6 VISITING TEACHER-MUTUEL CLERK 1225 [facility] [place] [address] documented as of this encounter Goals Goal Patient Goal Type Associated Problems Recent Progress Patient-Stated? Author Mobility General On track( 9:08 AM YOUTH CAREER SPECIALIST) No Tika Pope, RN Note: Expected [...] documented as of this encounter Results * US ABDOMEN LIMITED (01/18/2022 9:42 AM CDT) Anatomical Region Laterality Modality Abdomen Ultrasound 01/18/2022 9:43 AM CDT Impressions 01/18/2022 9:55 AM CDT IMPRESSION: 1.Diffuse hepatic steatosis without discrete hepatic lesion or intrahepatic biliary dilatation. 2.Status post cholecystectomy. > Dictated by Thomas Cleary MD (regional vice president life sales). I, Basim Holbrook MD have personally reviewed and interpreted this examination/study. > Interpreting Provider: Basim Holbrook MD on 01/18/2022 9:55 AM Narrative 01/18/2022 9:55 AM CDT PROCEDURE: ??US ABDOMEN LIMITED, DATE/TIME OF EXAM: ??01/18/2022 9:43 AM PROCEDURE: ??US ABDOMEN LIMITED, DATE/TIME OF EXAM: ??01/18/2022 9:43 AM, LOCATION ??[facility] INDICATION: K76.0: NAFLD (nonalcoholic fatty liver disease) [...] DATE/TIME OF EXAM: 01/18/2022 9:43 AM, LOCATION [facility] INDICATION: K76.0: NAFLD (nonalcoholic fatty liver disease) [...] cholecystectomy. > Dictated by Thomas Cleary MD (regional vice president life sales). I, Basim Holbrook MD have personally reviewed and interpreted this examination/study. > Interpreting Provider: Basim Holbrook MD on 29:55 AM Marlena Mccoy GRADES 1 THRU 6 VISITING TEACHER-MUTUEL CLERK US ORDERABL ES documented in this encounter Visit Diagnoses Diagnosis NAFLD (nonalcoholic fatty liver disease)- Primary Other chronic nonalcoholic liver disease NAFLD (nonalcoholic fatty liver disease) Other chronic nonalcoholic liver disease documented in this encounter Care Teams Yard Coupler Relationship Specialty Start Date End Date Willis Veras MD [address] [place] [address] PCP - General 05/03/21 Cole Ku MD [address] OF [facility] [place] [address] General Surgery 11/10/20 documented as of this encounter
--- OUTSIDE RECORDS SUMMARY | 2024-04-25 14:04 | XMS_ITS | Encounter Summary ---
Author Organization [facility] Address [address] [place] [address] Care Team Providers Care International Freight Forwarder Name Role Phone Cole Ku MD Unavailable Willis Veras MD Primary Care Provider Encounter Details Date Type Department Care Team (Late st Contact Info) Description 06/26/2021 Orders Only [facility] Orthopedic Surgery [address] [place], [place] [phone] Kendall Reid MD 1031 [facility] [address] [place], [place] [phone] Social History Tobacco Use Types Packs/Day Years [...] st Contact Info) Description 06/02/2024 10:30 AM RETAIL EQUIPMENT ASSOCIATE Office Visit [facility] - [facility]opedic Surgery [facility]1 [place] [phone] Kevin Britton MD 1031 [facility] 280 [place] [address] 08/10/2024 1:00 PM CDT Office Visit [facility] Group - COASTAL/HARBOR DEFENSE OFFICER 1031 [facility] 400 [place] [phone] Daja Mir MD [address] [place] [address] 10/26/2024 1:00 PM CDT Office Visit [facility] - Hematology/Oncology [address] [place] [phone] Elizabeth Garcia MD 36[address] [facility] 3 [place] [address] 01/17/2025 12:30 PM CDT Procedure visit [facility] - GI [address] [place] [phone] 01/17/2025 1:00 PM CDT Office Visit [facility] - GI [address] [place] [phone] Marlena Mccoy, MERCHANDISING INTERNSHIP-POT RUNNER [address] [place] [address] 3F DIV [place] [address] documented as of this encounter Goals Goal Patient Goal Type Associated Problems Recent Progress Patient-Stated? Author Mobility General On track( 021 9:08 AM RETAIL EQUIPMENT ASSOCIATE) No Tika Pope, SABRINA Note: Expected end [...] on filedocumented in this encounter Care Teams International Freight Forwarder Relationship Specialty Start Date End Date Willis Veras MD [address] [place] [address] PCP - General 05/03/21 Cole Ku MD [address] [place] [address] General Surgery 11/10/20 documented as of this encounter
--- OUTSIDE RECORDS SUMMARY | 2024-04-25 14:04 | XMS_ITS | Encounter Summary ---
Author Organization [facility] Address [address] [place] [address] Care Team Providers Care Account Consultant Name Role Phone Cole Ku MD Unavailable Willis Veras MD Primary Care Provider Encounter Details Date Type Department Care Team (Late st Contact Info) Description 08/03/2021 Orders Only [facility] H[facility]ology and [facility] [address] [place] [address] Araseli Byers MD [address] [place] [address] History of breast cancer ; Encounter for monitoring tamoxifen therapy Social History [...] st Contact Info) Description 06/02/2024 10:30 AM ASBESTOS HANDLER Office Visit [facility] - Orthopedic Surgery [address] [place] [phone] Kevin Britton MD 1031 [facility] 280 [place] [address] 08/10/2024 1:00 PM CDT Office Visit [facility]ician Group - MANUFACTURING LABORER 1031 [facility] 400 [place] [phone] Daja Mir MD 5705 [facility] [place] [address] 10/26/2024 1:00 PM CDT Office Visit [facility] Group - Hematology/Oncology [address] [place] [phone] Elizabeth Garcia MD 3665 [facility] 3 [place] [address] 01/17/2025 12:30 PM CDT Procedure visit [facility] - GI [address] [place] [phone] 01/17/2025 1:00 PM CDT Office Visit [facility] - GI [address] [place] [phone] Marlena Mccoy, CLAM BED LABORER-CLINICAL PHARMACOLOGIST [address] [place] [address] [facility] [place] [address] documented as of this encounter Goals Goal Patient Goal Type Associated Problems Recent Progress Patient-Stated? Author Mobility General On track( 021 9:08 AM ASBESTOS HANDLER) Tika Cunha, SABRINA Note: Expected end date: [...] as of this encounter Results * (ABNORMAL) LIPID PROFILE (08/06/2021 10:49 AM CDT) [facility] Cholesterol Total 194 <200 mg/dL 08/06/2021 11:28 AM [facility] HDL 45 >40 mg/dL 08/06/2021 11:28 AM [facility] Comment: ATP III Classification of HDL Cholesterol: ? <40 mg/dL: ??Considered a major risk factor. ? >60 mg/dL: ??Considered a negative risk factor. ? LDL Calculated 116(H) <100 mg/dL 08/06/2021 11:28 AM [facility] Comment: ATP III Classification of LDL Cholesterol: ?<100 mg/dL: ??Optimal ? 100 - 129 mg/dL: ??Near Optimal/Above Optimal ? 130 - 159 mg/dL: ??Borderline High ? 160 - 189 mg/dL: ??High ?>190 mg/dL: ??Very High ? Triglycerides 166(H) <150 mg/dL 08/06/2021 11:28 AM [facility] Comment: ATP III Classification of Triglycerides: ?<150 mg/dL: ??Normal ? 150 - 199 mg/dL: ??Borderline High ? 200 - 400 mg/dL: ??High ?>500 mg/dL: ??Very High Blood BLOOD SPECIMEN / Unknown Lab Venipuncture / Unknown 08/06/2021 10:49 AM CDT 08/06/2021 10:56 AM CDT Araseli Byers MD LAB - CHEMISTRY LD [place] [facility] [address] [place] [address], [facility] [phone] * (ABNORMAL) COMPREHENSIVE METABOLIC PANEL (08/06/2021 10:49 AM CDT) BUN 17 7 - 26 mg/dL 08/06/2021 11:28 AM [facility] Creatinine 1.02(H) 0.56 - 0.96 mg/dL 08/06/2021 11:28 AM [facility] Sodium 144 136 - 145 mmol/L 08/06/2021 11:28 AM [facility] Potassium 3.9 3.5 - 4.5 mmol/L 08/06/2021 11:28 AM [facility] Chloride 108(H) 98 - 107 mmol/L 08/06/2021 11:28 AM [facility] CO2 24 22 - 29 mmol/L 08/06/2021 11:28 AM [facility] Glucose 90 70 - 115 mg/dL 08/06/2021 11:28 AM [facility] Calcium 9.6 8.4 - 10.2 mg/dL 08/06/2021 11:28 AM [facility] Protein Total 7.3 6.0 - 8.3 g/dL 08/06/2021 11:28 AM [facility] Albumin 3.7 3.4 - 5.0 g/dL 08/06/2021 11:28 AM [facility] Bilirubin Total 0.4 0.2 - 1.2 mg/dL 08/06/2021 11:28 AM [facility] Alkaline Phosphatase 71 40 - 150 U/L 08/06/2021 11:28 AM [facility] ALT 24 5 - 55 U/L 08/06/2021 11:28 AM [facility] AST 30 5 - 34 U/L 08/06/2021 11:28 AM [facility] Anion Gap 16 8 - 18 08/06/2021 11:28 AM [facility] BUN/Creatinine Ratio 17 7 - 23 08/06/2021 11:28 AM [facility] Osmolality Calculated 299 270 - 300 mOsm/kg 08/06/2021 11:28 AM [facility] Albumin/Globulin Ratio 1.0(L) 1.1 - 2.3 08/06/2021 11:28 AM [facility] eGFR by CKD-EPI 64(L) >=90 mL/min/1.7 3 m2 08/06/2021 11:28 AM [facility] Blood BLOOD SPECIMEN / Unknown Lab Venipuncture / Unknown 08/06/2021 10:49 AM CDT 08/06/2021 10:56 AM CDT Araseli Byers MD LAB - CHEMISTRY ADIL[place]E [facility] Organization Address City/State/ZIP Co de Phone Number [facility] [address] [place] [address], [facility] [phone] * CBC WITH DIFFERENTIAL (08/06/2021 10:49 AM CDT) WBC 6.8 3.5 - 10.5 10? 3 /uL 08/06/2021 11:04 AM [facility] RBC 4.31 3.80 - 5.20 10? 6 /uL 08/06/2021 11:04 AM [facility] Hemoglobin 13.0 12.0 - 15.6 g/dL 08/06/2021 11:04 AM [facility] Hematocrit 39.2 35.0 - 45.0 % 08/06/2021 11:04 AM [facility] MCV 91.0 80.7 - 98.3 fL 08/06/2021 11:04 AM [facility] MCH 30.2 26.7 - 34.0 pg 08/06/2021 11:04 AM [facility] MCHC 33.2 30.8 - 35.9 g/dL 08/06/2021 11:04 AM [facility] Platelet Count 182 150 - 400 10? 3 /uL 08/06/2021 11:04 AM [facility] RDW-SD 41.9 36.0 - 50.0 fL 08/06/2021 11:04 AM [facility] RDW-CV 12.6 11.2 - 14.8 % 08/06/2021 11:04 AM [facility] MPV 11.1 9.4 - 12.9 fL 08/06/2021 11:04 AM [facility] nRBC Absolute 0.00 0 10? 3 /uL 08/06/2021 11:04 AM [facility] nRBC Auto 0.0 0 /100 WBC 08/06/2021 11:04 AM [facility] Neutrophils % 55.9 35.0 - 70.0 % 08/06/2021 11:04 AM [facility] Lymphocytes % 34.9 20.0 - 43.0 % 08/06/2021 11:04 AM [facility] Monocytes % 6.9 5.0 - 13.0 % 08/06/2021 11:04 AM [facility] Eosinophils % 1.5 0.0 - 6.0 % 08/06/2021 11:04 AM [facility] Basophil % 0.4 0.0 - 2.0 % 08/06/2021 11:04 AM [facility] Neutrophils Absolute 3.8 1.6 - 7.0 10? 3 /uL 08/06/2021 11:04 AM [facility] Lymphocyte Absolute 2.4 1.1 - 3.9 10? 3 /uL 08/06/2021 11:04 AM [facility] Monocytes Absolute 0.47 0.26 - 1.07 10? 3 /uL 08/06/2021 11:04 AM [facility] Eosinophils Absolute 0.10 0.00 - 0.47 10? 3 /uL 08/06/2021 11:04 AM CDT [facility] Basophils Absolute 0.03 0.00 - 0.08 10? 3 /uL 08/06/2021 11:04 AM CDT [facility] Immature Granulocytes % 0.4 0.0 - 1.0 % 08/06/2021 11:04 AM CDT [facility] Immature Granulocytes Absolute 0.03 08/06/2021 11:04 AM CDT [facility] Blood BLOOD SPECIMEN / Unknown Lab Venipuncture / Unknown 08/06/2021 10:49 AM CDT 08/06/2021 10:56 AM CDT Araseli Byers MD LAB - HEMATOLOGY ORD ERABLES [facility] [address] [place] [address], [facility] [phone] documented in this encounter Visit Diagnoses Diagnosis History of breast cancer- Primary Personal history of malignant neoplasm of breast Encounter for monitoring tamoxifen therapy Encounter for therapeutic drug monitoring documented in this encounter Care Teams Account Consultant Relationship Specialty Start Date End Date Willis Veras MD [address] [place] [address] PCP - General 05/03/21 Cole Ku MD [facility]5 [facility] 2L DIV [place] [address] General Surgery 11/10/20 documented as of this encounter
--- OUTSIDE RECORDS SUMMARY | 2024-04-25 14:04 | XMS_ITS | Encounter Summary ---
Author Organization [facility] Address [address] [facility] [place] [address] Care Team Providers Care Slot Ambassador Name Role Phone Asher Garrison MD Primary Care Provider [phone] Cole Ku MD Unavailable Reason for Visit * Reason Onset Date Comments MEDICATION REFILL 04/05/2021 Encounter Details Date Type Department Care Team (Late st Contact Info) Description 04/05/2021 Refill [facility] [address] Erma eNri MD [address] [facility] [address] [place] [address] MEDICATION REFILL Social History Tobacco Use Types [...] encounter Miscellaneous Notes * Telephone Encounter - Angelika Ayala RN - 04/05/2021 11:09 AM CST Patient requesting Tamoxifen refill. PLANT TREATER documented in this encounter Plan of Treatment Upcoming Encounters Date Type Department Care Team (Late st Contact Info) Description 06/02/2024 10:30 AM CLAY PLANT TREATER Office Visit [facility] - Orthopedic Surgery [address] [place] [phone] Kevin Britton MD 1031 [facility] 280 [place] [address] 08/10/2024 1:00 PM CDT Office Visit [facility] - CAP CUTTER 1031 [facility] 400 [place] [phone] Daja Mir MD 6992 [facility] [place] [address] 10/26/2024 1:00 PM CDT Office Visit [facility] - Hematology/Oncology [address] [place] [phone] Elizabeth Garcia MD 9356 [facility] 3 [place] [address] 01/17/2025 12:30 PM CDT Procedure visit [facility] - GI 1225 [facility], [place] [phone] 01/17/2025 1:00 PM CDT Office Visit [facility] - GI [address] [facility], [place] [phone] Marlena Mccoy, DISC INSPECTOR-PUBLIC FINANCE SPECIALIST [address] [place] [address] [address] [place] [address] documented as of this encounter Goals Goal Patient Goal Type Associated Problems Recent Progress Patient-Stated? Author Mobility General On track( 021 9:08 AM CLAY PLANT TREATER) No Tika Pope, RN Note: Expected end [...] on filedocumented in this encounter Care Teams Slot Ambassador Relationship Specialty Start Date End Date Asher Garrison MD [address] [place] [phone] PCP - General 08/25/18 05/02/21 Cole Ku MD 1225 [facility] 2L [place] [address] General Surgery 11/10/20 documented as of this encounter
--- OUTSIDE RECORDS SUMMARY | 2024-04-25 14:04 | XMS_ITS | Encounter Summary ---
Author Organization [facility] Address [address] [place] [address] Care Team Providers Care Manager Coding Name Role Phone Asher Garrison MD Primary Care Provider +[phone] Cole Ku MD Unavailable Encounter Details Date Type Department Care Team (Late st Contact Info) Description 01/15/2021 Orders Only [facility]-[address] [phone] Erma Neri MD 23 [facility] 220 [place] [address] History of breast cancer Social History Tobacco [...] st Contact Info) Description 06/02/2024 10:30 AM SUB ASSEMBLY TEAM WORKER Office Visit [facility] - Orthopedic Surgery [facility] [place] [phone] Kevin Britton MD 1031 [facility] 280 [place] [address] 08/10/2024 1:00 PM CDT Office Visit [facility] - GAS CONTROLLER 1031 [facility] 400 [place] [address] Daja Mir MD 5703 [facility], [place] [address] 10/26/2024 1:00 PM CDT Office Visit [facility] - Hematology/Oncology 3655 [place] [phone] Elizabeth Garcia MD 3664 [facility] 3 [place] [address] 01/17/2025 12:30 PM CDT Procedure visit [facility] - GI [address] [place] [phone] 01/17/2025 1:00 PM CDT Office Visit [facility] - GI [address] [place] [phone] Marlena Mccoy, BUILDING SERVICE WORKER-ROLL REPAIRER [address] [place] [address] [address] [place] [address] documented as of this encounter Goals Goal Patient Goal Type Associated Problems Recent Progress Patient-Stated? Author Mobility General On track( 021 9:08 AM SUB ASSEMBLY TEAM WORKER) No Tika Pope RN Note: Expected end [...] VITAMIN D 25-HYDROXY (01/15/2021 10:23 AM CDT) [facility] Vitamin D, 25 Hydroxy 40.0 30.0 - 80.0 ng/mL 01/15/2021 11:25 AM CDT [facility] Comment: The recommendations for 25-Hydroxy Vitamin [...] Organization Address City/State/ZIP Co de Phone Number [facility] [address] [place] [address], [facility] [phone] * (ABNORMAL) COMPREHENSIVE METABOLIC PANEL (01/15/2021 10:23 AM CDT) BUN 8 7 - 26 mg/dL 01/15/2021 11:15 AM [facility] Creatinine 0.92 0.56 - 0.96 mg/dL 01/15/2021 11:15 AM [facility] Sodium 141 136 - 145 mmol/L 01/15/2021 11:15 AM [facility] Potassium 3.9 3.5 - 4.5 mmol/L 01/15/2021 11:15 AM [facility] Chloride 109(H) 98 - 107 mmol/L 01/15/2021 11:15 AM [facility] CO2 22 22 - 29 mmol/L 01/15/2021 11:15 AM [facility] Glucose 96 70 - 115 mg/dL 01/15/2021 11:15 AM [facility] Calcium 9.4 8.4 - 10.2 mg/dL 01/15/2021 11:15 AM [facility] Protein Total 7.2 6.0 - 8.3 g/dL 01/15/2021 11:15 AM [facility] Albumin 3.6 3.4 - 5.0 g/dL 01/15/2021 11:15 AM [facility] Bilirubin Total 0.4 0.2 - 1.2 mg/dL 01/15/2021 11:15 AM [facility] Alkaline Phosphatase 78 40 - 150 U/L 01/15/2021 11:15 AM [facility] ALT 18 5 - 55 U/L 01/15/2021 11:15 AM [facility] AST 27 5 - 34 U/L 01/15/2021 11:15 AM [facility] Anion Gap 14 8 - 18 01/15/2021 11:15 AM [facility] BUN/Creatinine Ratio 9 7 - 23 01/15/2021 11:15 AM [facility] Osmolality Calculated 290 270 - 300 mOsm/kg 01/15/2021 11:15 AM [facility] Albumin/Globulin Ratio 1.0(L) 1.1 - 2.3 01/15/2021 11:15 AM [facility] eGFR by CKD-EPI 70(L) >=90 mL/min/1.7 3 m2 01/15/2021 11:15 AM [facility] Blood BLOOD SPECIMEN / Unknown Lab Venipuncture / Unknown 01/15/2021 10:23 AM CDT 01/15/2021 10:38 AM T Erma Neri MD LAB - CHEMISTRY LD [facility] Organization Address City/State/ZIP Co de Phone Number [facility] [address] [place] [address], [facility] [phone] * CBC WITH DIFFERENTIAL (01/15/2021 10:23 AM [facility]) WBC 5.4 3.5 - 10.5 10? 3 /uL 01/15/2021 10:47 AM [facility] RBC 4.28 3.80 - 5.20 10? 6 /uL 01/15/2021 10:47 AM [facility] Hemoglobin 12.3 12.0 - 15.6 g/dL 01/15/2021 10:47 AM [facility] Hematocrit 38.0 35.0 - 45.0 % 01/15/2021 10:47 AM [facility] MCV 88.8 80.7 - 98.3 fL 01/15/2021 10:47 AM [facility] MCH 28.7 26.7 - 34.0 pg 01/15/2021 10:47 AM [facility] MCHC 32.4 30.8 - 35.9 g/dL 01/15/2021 10:47 AM [facility] Platelet Count 165 150 - 400 10? 3 /uL 01/15/2021 10:47 AM [facility] RDW-SD 40.2 36.0 - 50.0 fL 01/15/2021 10:47 AM [facility] RDW-CV 12.4 11.2 - 14.8 % 01/15/2021 10:47 AM [facility] MPV 11.1 9.4 - 12.9 fL 01/15/2021 10:47 AM [facility] nRBC Absolute 0.00 0 10? 3 /uL 01/15/2021 10:47 AM [facility] nRBC Auto 0.0 0 /100 WBC 01/15/2021 10:47 AM [facility] Neutrophils % 51.9 35.0 - 70.0 % 01/15/2021 10:47 AM [facility] Lymphocytes % 37.2 20.0 - 43.0 % 01/15/2021 10:47 AM [facility] Monocytes % 6.4 5.0 - 13.0 % 01/15/2021 10:47 AM [facility] Eosinophils % 3.9 0.0 - 6.0 % 01/15/2021 10:47 AM [facility] Basophil % 0.4 0.0 - 2.0 % 01/15/2021 10:47 AM [facility] Neutrophils Absolute 2.8 1.6 - 7.0 10? 3 /uL 01/15/2021 10:47 AM [facility] Lymphocyte Absolute 2.0 1.1 - 3.9 10? 3 /uL 01/15/2021 10:47 AM [facility] Monocytes Absolute 0.35 0.26 - 1.07 10? 3 /uL 01/15/2021 10:47 AM [facility] Eosinophils Absolute 0.21 0.00 - 0.47 10? 3 /uL 01/15/2021 10:47 AM [facility] Basophils Absolute 0.02 0.00 - 0.08 10? 3 /uL 01/15/2021 10:47 AM [facility] Immature Granulocytes % 0.2 0.0 - 1.0 % 01/15/2021 10:47 AM [facility] Immature Granulocytes Absolute 0.01 01/15/2021 10:47 AM [facility] Blood BLOOD SPECIMEN / Unknown Lab Venipuncture / Unknown 01/15/2021 10:23 AM CDT 01/15/2021 10:38 AM CDT Erma Neri MD LAB - HEMATOLOGY ORD ERABLES [facility] [address] [place] [address], [facility] [phone] documented in this encounter Visit Diagnoses Diagnosis History of breast cancer- Primary Personal history of malignant neoplasm of breast documented in this encounter Care Teams Manager Coding Relationship Specialty Start Date End Date Asher Garrison MD [address] [place] [address] PCP - General 08/25/18 05/02/21 Cole Ku MD [address] [facility] 2L [place] [address] General Surgery 11/10/20 documented as of this encounter
--- OUTSIDE RECORDS SUMMARY | 2024-04-25 14:04 | XMS_ITS | Encounter Summary ---
Author Organization [facility] Health Address [address] [place] [address] Care Team Providers Care Balloon Seller Name Role Phone Asher Garrison MD Primary Care Provider [phone] Cole Ku MD Unavailable Reason for Visit * Reason Comments Pain Knee Encounter Details Date Type Department Care Team (Latest Contact Info) Description 02/06/2021 10:00 AM CDT Office Visit [facility] - Orthopedics 12[address] [place] [address] Kevin Britton MD [address] [address] Primary osteoarthritis of left knee (Primary Dx) [...] Progress Notes * Kevin Britton MD - 02/06/2021 10:00 AM CDT Patient returns for repeat left knee injection. Physical exam: Examination of the left knee reveals intact skin without signs of infection. X-rays: None obtained Assessment: Left knee osteoarthritis here for repeat injection Plan: We will proceed with repeat left knee injection today. Please see the procedure note for further details. We will see patient back as needed. documented in this encounter Procedure Notes * Kevin Britton MD - 02/06/2021 10:20 AM CDTAssociated Order(s): PROC INJECTION JOINT (SMALL/INTERMED/MAJOR) Procedure(s): [place] DRAIN/INJECT LARGE JOINT/BURSA Pre-Procedure Diagnose(s): Primary osteoarthritis [...] of plan per note. Injection performed by: Resident on service Blood Loss: Minimal Kevin Britton MD 02/21/2021 1:52 PM documented in this encounter Plan of Treatment Upcoming Encounters Date Type Department Care Team (Late st Contact Info) Description 06/02/2024 10:30 AM GRADES 1 THRU 6 VISITING TEACHER Office Visit [facility] - Orthopedic Surgery 1031 [place] [address] Kevin Britton MD 1031 [facility] 280 [place] [address] 08/10/2024 1:00 PM CDT Office Visit [facility] - PLUGGING MACHINE OPERATOR 1031 [facility] 400 [place] [phone] Daja Mir MD 5702 [facility] [place] [address] 10/26/2024 1:00 PM CDT Office Visit [facility] - Hematology/Oncology 3738 [place] [phone] Elizabeth Garcia MD 3668 [facility] 3 [place] [address] 01/17/2025 12:30 PM CDT Procedure visit [facility] - GI [address] [place] [phone] 01/17/2025 1:00 PM CDT Office Visit [facility] - GI [address] [place] [address], [place] [address] Marlena Mccoy, MACHINE GROUP LEADER-WAFFLE MACHINE OPERATOR 1225 [facility] 3[facility] [place] [address] documented as of this encounter Goals Goal Patient Goal Type Associated Problems Recent Progress Patient-Stated? Author Mobility General On track( 9:08 AM GRADES 1 THRU 6 VISITING TEACHER) No Tika Pope, RN Note: Expected [...] Procedure Name Priority Date/Time Associated Diagnosis Comments [place] DRAIN/INJECT LARGE JOINT/BURSA Routine 02/06/2021 10:20 AM CDT Primary osteoarthritis of left knee documented in this encounter Results * [place] DRAIN/INJECT LARGE JOINT/BURSA (02/06/2021 10:20 AM CDT) [...] Kevin Britton MD PROCEDURE/MINOR ALCON GICAL ORDERABLES documented in this encounter Visit Diagnoses Diagnosis Primary osteoarthritis of left knee- Primary Primary localized osteoarthrosis, lower leg documented in this encounter Administered Medications Inactive Administered Medications - up to 3 most recent administrations Medication Order MAR Action Action Date Dose Rate Site lidocaine PF (Xylocaine MPF) 1 % injection 6 mL 6 mL, Infiltration, ONCE, 1 dose, On Fri02/06/21 at 1030 $ Given 02/06/2021 10:20 AM CDT 6 mL Left Knee triamcinolone acetonide (Kenalog-40) injection 80 mg 80 mg, Intra-articular, ONCE, 1 dose, On Fri02/06/21 at 1030, Shake well before using. $ Given 02/06/2021 10:20 AM CDT 80 mg Left Knee documented in this encounter Care Teams Balloon Seller Relationship Specialty Start Date End Date Asher Garrison MD [address] [place] [address] PCP - General 08/25/18 05/02/21 Cole Ku MD [address] OF [facility] [place] [phone] General Surgery 11/10/20 documented as of this encounter
--- OUTSIDE RECORDS SUMMARY | 2024-04-25 14:04 | XMS_ITS | Encounter Summary ---
Author Organization [facility] Address [address] [place] [address] Care Team Providers Care Day Haul Or Farm Charter Bus Driver Name Role Phone Cole Ku MD Unavailable Willis Veras MD Primary Care Provider Encounter Details Date Type Department Care Team (Late st Contact Info) Description 08/06/2021 10:20 AM CDT Office Visit [facility] Hematology and On[facility] [address] [place] [address] Araseli Byers MD [address] [place] [address] History of breast cancer (Primary [...] Sign Reading Time Taken Comments Blood Pressure 130/85 08/06/2021 10:26 AM CDT Pulse 72 08/06/2021 10:26 AM CDT Temperature - - Respiratory Rate 18 08/06/2021 10:26 AM CDT Oxygen Saturation 96% 08/06/2021 10:26 AM CDT Inhaled Oxygen Concentration - - Weight 92 kg (202 lb 14.4 oz) 08/06/2021 10:26 A M CDT Height - - Body Mass Index 31.78 07/13/2021 10:33 AM NAILING MACHINE OPERATOR AUTOMATIC documented in this encounter Functional Status Functional [...] Progress Notes * Araseli Byers MD - 08/06/2021 10:46 AM CDT Patient seen and examined with Resident /Fellow Dr. Jones. Please see their notes for further details. I personally verified and confirmed the history, exam and assessment/plan except where itdiffers from mine. In addition I note: Stage I breast cancer. Lumpectomy September 2015. Oncotype DX score 17. Premenopausal status at the diagnosis. Has been on tamoxifen. Normal mammography October 2020. Overall, tolerated the tamoxifen. However she had vaginal spotting and had D&C twice in last 5 years. Discussed with patient -With her general risk of the disease, 7 years of endocrine therapy should be sufficient. -Tamoxifen does associate with the increased risk of uterine cancer. Switch to AI is option since now patient is postmenopausal. However she think she will only need 1 more years of treatment. She would like to stay on the tamoxifen. Agreed. Continue follow-up with gynecology. We will have mammography in October. We will see patient back again in 6 months. Araseli Byers MD Hematology and oncology * Tia Jones MD - 08/06/2021 10:24 AM CDT [facility] Hematology/Oncology Clinic Date of Visit: 08/06/2021 Attending Physician: Erma Neri MD PCP: Willis Veras MD Breast Surgeon: Radiation Oncologist: Chief Complaint/Reason for Visit: Breast Cancer- side effect assessment visit on Tamoxifen History of Present Illness/Interval History: Ms. Torres is seen in clinic this morning. She denied any headaches or arthralgias or hot flashes. Tolerating tamoxifen well. Having lower extremity swelling. Oncologic History: Noted to have an abnormal screening mammogram in June or July of 2015. Referred to [facility], where a left breast biopsy performed on 07/25/15 showed ER+/MI+/HER/2- invasive ductal carcinoma. US-guided FNA of the axillary lymph node was performed at the same time which was negative for metastatic disease. A left partial mastectomy was performed on 09/04/2015 which showed 1.5 cm, grade 2 IDC (pathologic [id number]) with negative margins. [place] lymph node biopsy was negative (0/1). She had a Oncotype DX score of 17. She was premenopausal at the time of diagnosis and started on tamoxifen. Receivedleft accelerated partial breast radiation (3850 cGy) between 10/11-10/20/[address] Thee Larson. She was followed at [facility] by Dr. Kyrie Baltazar where her LFTs were noted to be mildly elevated on a few separate occasions. Since starting tamoxifen, she has not had any periods, but has had a few episodes of spotting. Had a D&C by her peer tutor after US showed a thickened endometrial stripe. Negative for carcinoma or hyperplasia. Now 09/2019 undergoing D&C again due to vaginal bleeding. ?? Stage I ([id number]) ER+/MI+/HER/2- Left invasive ductal carcinoma -07/2015: Abnormal mammogram 07/25/15: Breast biopsy showed invasive ductal carcinoma. Both ER and MI had a Lauren score 8/8 and HER/2 [...] Medications: Current Outpatient Medications Medication Sig ??? amLODIPine [...] Dysuria, frequency, urgency, hematuria, - Musculoskeletal: arthralgias, myalgias, pedal edema - Neurological: Numbness, tingling, pain, dizziness, headache - Endocrine: Heat intolerance, cold intolerance - Psychiatric: Depression, psychosis - Integument/Breast: Rash, discoloration, breast lump - Heme/lymphatic: Bruising, bleeding, lymphadenopathy - Allergies: please see Allergies - All others negative Vital Signs and Physical Exam: ECO General: Well developed, well nourished, in no apparent distress Head: Atraumatic, normocephalic Eyes: PERRLA, EOMI Extremities: Appropriately warm, 1+ pitting pedal edema,No tenderness to calf squeeze, no cyanosis Neurologic: AO x 3, no focal neurologic deficits Skin: normal skin color & turgor Labs: Recent Labs Component Name 01/15/21 1023 07/03/20 1019 05/12/20 1028 WBC 5.4 7.3 7.3 RBC 4.28 4.52 4.28 HGB 12.3 13.3 12.8 HCT 38.0 40.2 38.9 MCV 88.8 88.9 90.9 MCHC 32.4 33.1 32.9 PLTCOUNT 165 166 182 NEUTPCT 51.9 55.7 63.6 NEUTABS 2.8 4.0 4.7 Recent Labs Component Name 01/15/21 1023 11/27/20 0947 07/03/20 1019 POTASSIUM 3.9 4.0 4.1 CO2 22 29 25 BUN 8 13 14 CREATININE 0.92 1.00* 1.0 GLUCOSE 96 83 86 CALCIUM 9.4 9.9 8.8 ALKPHOS 78 69 78 ALT 18 32 22 AST 27 34 25 EGFR 70* 63* 58* Radiology: BILATERAL DIAGNOSTIC MAMMOGRAM 10/19/20 No mammographic evidence of malignancy, status post left breast conservation therapy. Screening mammography in one year, pending no interval breast concerns. Assessment and Recommendations: Milagros Torres is a 53 year old female with a history of stage I IDC, HTN, anxiety who presents today for scheduled follow up. ?? # Stage I ([id number]) ER+/MI+/HER/2- Left invasive ductal carcinoma 2016 started Tamoxifen: Discussed risks benefits of transitioning to AI. She would like to continueTamoxifen likely for a 10 year course of treatment. This has been very well tolerated. - Discussed the new studies revealing no additional benefit from extended hormonal therapy up to 10years. - Mammogram from 10/23 negative. Repeat screening mammogram ordered - repeat cbc, cmp and lipids annually # Vaginal spotting - D&C x2 - If recurs recommended discontinuation of tamoxifen # Pedal edema: Recommended follow up with PCP for evaluation of cardiac etiology RTC in 6 months. Above plan d/w Dr.Gu Tia Jones MD, PGY-6 Hematology/Oncology Fellow [facility] [phone] documented in this encounter Plan of Treatment Upcoming Encounters Date Type Department Care Team (Late st Contact Info) Description 06/02/2024 10:30 AM NAILING MACHINE OPERATOR AUTOMATIC Office Visit [facility] - Orthopedic Surgery 10[address] [place] [phone] Kevin Britton MD [address] [facility] 280 [place] [address] 08/10/2024 1:00 PM CDT Office Visit [facility] - FERRY TERMINAL AGENT 1031 [facility] 400 [place] [address] Daja Mir MD 6713 [facility] [place] [address] 10/26/2024 1:00 PM CDT Office Visit [facility] - Hematology/Oncology 38[address] [place] [address] Elizabeth Garcia MD [address] [place] Demetrice MD 3 [place] [address] 01/17/2025 12:30 PM CDT Procedure visit [facility] - GI [address] [place] [address], [place] [phone] 01/17/2025 1:00 PM CDT Office Visit [facility] - GI [address] [place] [address], [place] [phone] Marlena Mccoy, URANIUM PROCESSING SUPERVISOR-CHIP APPLYING MACHINE TENDER [address] [place] [address] [address] DIV [place] [address] documented as of this encounter Goals Goal Patient Goal Type Associated Problems Recent Progress Patient-Stated? Author Mobility General On track( 021 9:08 AM NAILING MACHINE OPERATOR AUTOMATIC) No Tika Pope, RN Note: Expected end [...] as of this encounter Visit Diagnoses Diagnosis History of breast cancer- Primary Personal history of malignant neoplasm of breast documented in this encounter Care Teams Day Haul Or Farm Charter Bus Driver Relationship Specialty Start Date End Date Willis Veras MD [address] [place] [address] PCP - General 05/03/21 Cole Ku MD [address] [place] [address] 2[address] [place] [address] General Surgery 11/10/20 documented as of this encounter
--- OUTSIDE RECORDS SUMMARY | 2024-04-25 14:04 | XMS_ITS | Encounter Summary ---
Author Organization [facility] Health Address [address] [facility] [place] [address] Care Team Providers Care Chromium Plater Name Role Phone Asher Garrison MD Primary Care Provider [phone] Cole Ku MD Unavailable Encounter Details Date Type Department Care Team (Latest Contact Info) Description 01/15/2021 Travel Social History Tobacco Use Types Packs/Day [...] st Contact Info) Description 06/02/2024 10:30 AM TOWN ADMINISTRATOR Office Visit [facility] - Orthopedic Surgery 1031 [place] [phone] Kevin Britton MD 1031 [facility] 280 [place] [address] 08/10/2024 1:00 PM CDT Office Visit [facility] - TECHNICAL ASSOCIATE 1031 [facility] 400 [place] [phone] Daja Mir MD 5702 [facility] [place] [address] 10/26/2024 1:00 PM CDT Office Visit [facility] - Hematology/Oncology 3655 [place] [phone] Elizabeth Garcia MD 3665 [facility] 3 [place] [address] 01/17/2025 12:30 PM CDT Procedure visit [facility] - GI [address] [place] [phone] 01/17/2025 1:00 PM CDT Office Visit [facility] - GI [address] [place] [phone] Marlena Mccoy, SILK SCREEN PRINTING RACKER-ED PHYSICI[employer] [address] [place] [address] [facility] [place] [address] documented as of this encounter Goals Goal Patient Goal Type Associated Problems Recent Progress Patient-Stated? Author Mobility General On track( 021 9:08 AM TOWN ADMINISTRATOR) No Tika Pope, RN Note: Expected end [...] on filedocumented in this encounter Care Teams Chromium Plater Relationship Specialty Start Date End Date Asher Garrison MD [address] [place] [address] PCP - General 08/25/18 05/02/21 Cole Ku MD [address] OF [facility] [place] [address] General Surgery 11/10/20 documented as of this encounter
--- OUTSIDE RECORDS SUMMARY | 2024-04-25 14:04 | XMS_ITS | Encounter Summary ---
Author Organization [facility] Address [address] [facility] [place] [address] Care Team Providers Care Pediatric Rn Name Role Phone Asher Garrison MD Primary Care Provider +[phone] Cole Ku MD Unavailable Reason for Visit * Reason Onset Date Comments MEDICATION REFILL 02/25/2021 Encounter Details Date Type Department Care Team (Late st Contact Info) Description 02/25/2021 Refill [facility] Orthopedic Surgery 1031 [place], [place] [phone] Kevin Britton MD [address] [address] MEDICATION REFILL Social History Tobacco Use Types [...] Contact Info) Description 06/02/2024 10:30 AM HOME INSPECTOR Office Visit [facility] - Orthopedic Surgery 1031 [place] [phone] Kevin Britton MD 1031 [facility] 280 [place] [address] 08/10/2024 1:00 PM CDT Office Visit [facility] - ASSET ADMINISTRATOR 1031 [facility] 400 [place] [phone] Daja Mir MD 5708 [place] [address] 10/26/2024 1:00 PM CDT Office Visit [facility] - Hematology/Oncology 3655 [place] [phone] Elizabeth Garcia MD 3665 [facility] 3 [place] [address] 01/17/2025 12:30 PM CDT Procedure visit [facility] - GI [address] [place] [phone] 01/17/2025 1:00 PM CDT Office Visit [facility] - GI [address] [place] [phone] Marlena Mccoy, RIM TURNING MACHINE OPERATOR-THICKENER OPERATOR [address] [place] [address] [facility] [place] [address] documented as of this encounter Goals Goal Patient Goal Type Associated Problems Recent Progress Patient-Stated? Author Mobility General On track( 021 9:08 AM HOME INSPECTOR) No Tika Pope, RN Note: Expected end [...] leg documented in this encounter Care Teams Pediatric Rn Relationship Specialty Start Date End Date Asher Garrison MD 49[address] [place] [address] PCP - General 08/25/18 05/02/21 Cole Ku MD [address] [address] General Surgery 11/10/20 documented as of this encounter
--- OUTSIDE RECORDS SUMMARY | 2024-04-25 14:04 | XMS_ITS | Encounter Summary ---
Author Organization [facility] Address [address] [facility] [address] Care Team Providers Care Arch Cushion Press Operator Name Role Phone Cole Ku MD Unavailable Willis Veras MD Primary Care Provider Reason for Visit * Reason Comments Pain Knee left Encounter Details Date Type Department Care Team (Late st Contact Info) Description 06/26/2021 12:45 PM SINGLE PASS SOIL STABILIZER OPERATOR Office Visit [facility] Orthopedic Surgery [address] [place], [place] [phone] Kendall Reid MD 1031 [facility] [address] [place] [address] Primary osteoarthritis of left knee (Primary Dx) [...] - Inhaled Oxygen Concentration - - Weight 88.5 kg (195 lb) 06/26/2021 12:37 PM SINGLE PASS SOIL STABILIZER OPERATOR Height 168.9 cm (5' 6.5 ) 06/26/2021 12:37 PM CS T Body Mass Index 31 06/26/2021 12:37 PM SINGLE PASS SOIL STABILIZER OPERATOR documented in this encounter Functional Status Functional [...] as of this encounter Progress Notes * Kendall Reid MD - 06/26/2021 12:35 PM CST Present Illness: Ms. Torres is a 55 yo female who presents the office today with complaints of increasing pain in her left knee especially over the last 4 weeks. She apparently had an episode in May where it popped on her and ever since then it really hurt a lot. She is normally followed by Dr. Britton. She hadan appointment in May but had to cancel because she had the Covid. She has not been x-rayed since December 2018 at which time she was markedly narrowed medially. She is thinking maybe of having surgery in the fall would like to get an injection today. She has a history of breast cancer and is followed by oncology. She also is followed by GI for elevated liver enzymes. She is not diabetic and has had no problems with prior injections. Her last injection was in February 2021. Physical exam: She does have a small effusion, no warmth or erythema. She comes to near full extension and furtherflexes to about 115 degrees. She has good motion to the hip without pain. Impression: DJD left knee Recommendations: I talked to the patient about her options and it was elected to inject today. She knows she will need to get medical and dental clearances prior to any surgery. When she returns to clinic she should have 4 view x-rays of that left knee. This dictation was performed with the use of Verdeeco voice recognition and errors with transcriptionmay occur. LE PASS SOIL STABILIZER OPERATOR documented in this encounter Procedure Notes * Kendall Reid MD - 06/26/2021 12:52 PM CSTAssociated Order(s): PROCDOC LARGE JOINT INJECTION Procedure(s): WA DRAIN/INJECT LARGE JOINT/BURSA Pre-Procedure Diagnose(s): Primary osteoarthritis of left knee INJECTION PROCEDURE NOTE: Pros and cons of injection were discussed with the patient. Patient has elected and consented to proceed. The superolateral aspect of the left knee(s) was prepped in the usual sterile manner. The skin, subcutaneous tissues and capsule were anesthetized with 1% xylocaine. An 18g needle was inserted into the knee, 8 ccs of clear yellow fluid was then aspirated, and 80 mgs triamcinalone and 3 ccs 1% xylocaine were then injected. This was well tolerated. LE PASS SOIL STABILIZER OPERATOR documented in this encounter Plan of Treatment Upcoming Encounters Date Type Department Care Team (Late st Contact Info) Description 06/02/2024 10:30 AM SINGLE PASS SOIL STABILIZER OPERATOR Office Visit [facility] - Orthopedic Surgery 10[address] [place] [phone] Kevin Britton MD 1031 [facility] 280 [place] [address] 08/10/2024 1:00 PM CDT Office Visit [facility] - OPTICIANRY TEACHER 1031 [facility] 400 [place] [phone] Daja Mir MD 6054 [place] [address] 10/26/2024 1:00 PM CDT Office Visit [facility] - Hematology/Oncology 1474 [place] [address] Elizabeth Garcia MD 4214 [facility] 3 [place] [address] 01/17/2025 12:30 PM CDT Procedure visit [facility] - GI 1225 [facility], [place] [phone] 01/17/2025 1:00 PM CDT Office Visit [facility] - GI 1225 [facility], [place] [phone] Marlena Mccoy, PEANUT SEPARATOR-WOOL HANKER [address] [place] [address] [facility] [place] [address] documented as of this encounter Goals Goal Patient Goal Type Associated Problems Recent Progress Patient-Stated? Author Mobility General On track( 021 9:08 AM SINGLE PASS SOIL STABILIZER OPERATOR) No Tika Pope, RN Note: Expected [...] Procedure Name Priority Date/Time Associated Diagnosis Comments WA DRAIN/INJECT LARGE JOINT/BURSA Routine 06/26/2021 12:52 PM SINGLE PASS SOIL STABILIZER OPERATOR Primary osteoarthritis of left knee documented in this encounter Results * WA DRAIN/INJECT LARGE JOINT/BURSA (06/26/2021 12:52 PM SINGLE PASS SOIL STABILIZER OPERATOR) Narrative Kendall Reid MD - 06/26/2021 12:52 PM SINGLE PASS SOIL STABILIZER OPERATOR Kendall Reid MD ? 06/26/2021 12:53 PM [...] were then injected. ??This was well tolerated. Kendall Reid MD PROCEDURE/MINOR SURG ICAL ORDERABLES documented in this encounter Visit Diagnoses Diagnosis Primary osteoarthritis of left knee- Primary Primary localized osteoarthrosis, lower leg documented in this encounter Administered Medications Inactive Administered Medications - up to 3 most recent administrations Medication Order MAR Action Action Date Dose Rate Site lidocaine (Xylocaine) 1 % injection Intra-articular, ONCE, 1 dose, On Fri06/26/21 at 1315 $ Given 06/26/2021 3:34 PM SINGLE PASS SOIL STABILIZER OPERATOR 6 mL Left Knee triamcinolone acetonide (Kenalog-40) injection 80 mg 80 mg, Intra-articular, ONCE, 1 dose, On Fri06/26/21 at 1315, Shake well before using. $ Given 06/26/2021 3:38 PM SINGLE PASS SOIL STABILIZER OPERATOR 80 mg Left Knee documented in this encounter Care Teams Arch Cushion Press Operator Relationship Specialty Start Date End Date Willis Veras MD [address] [place] [address] PCP - General 05/03/21 Cole Ku MD [address] OF [facility] [place] [address] General Surgery 11/10/20 documented as of this encounter
--- OUTSIDE RECORDS SUMMARY | 2024-04-25 14:05 | XMS_ITS | Encounter Summary ---
Author Organization [facility] Address [address] [facility] [place] [facility] [place] [address] Care Team Providers Care International Exchange Coordinator Name Role Phone Asher Garrison MD Primary Care Provider [phone] Cole Ku MD Unavailable Encounter Details Date Type Department Care Team (Late st Contact Info) Description 12/05/2020 Orders Only [facility] PHYS SURGERY 1201 [place] [phone] [place] [address] [facility] [place] [address] Social History Tobacco Use Types Packs/Day Years [...] have Coronavirus / COVID-19? No / Unsure 11/27/2020 8:43 AM CDT documented as of this encounter [...] Contact Info) Description 06/02/2024 10:30 AM ANIMAL ASSISTED THERAPIST Office Visit [facility] - Orthopedic Surgery [facility] [place] [phone] Keivn Britton MD 1031 [facility] 280 [place] [address] 08/10/2024 1:00 PM CDT Office Visit [facility] - DIGITAL ACCOUNT EXECUTIVE 10[address] [facility] 400 [place] [phone] Daja Mir MD 6862 [place] [address] 10/26/2024 1:00 PM CDT Office Visit [facility] - Hematology/Oncology 5566 [place] [phone] Elizabeth Garcia MD 3667 [facility] 3 [place] [address] 01/17/2025 12:30 PM CDT Procedure visit [facility] - GI [address] [place] [phone] 01/17/2025 1:00 PM CDT Office Visit [facility] - GI [address] [place] [phone] Marlena Mccoy, RADIO STATION MANAGER-BRAKE LINING CURER [address] DIV [place] [address] documented as of this encounter Goals Goal Patient Goal Type Associated Problems Recent Progress Patient-Stated? Author Mobility General On track( 021 9:08 AM ANIMAL ASSISTED THERAPIST) No Tika Pope, RN Note: Expected [...] filedocumented in this encounter Care Teams International Exchange Coordinator Relationship Specialty Start Date End Date Asher Garrison MD [address] [place] [phone] PCP - General 08/25/18 05/02/21 Cole Ku MD [address] [place] [address] General Surgery 11/10/20 documented as of this encounter
--- OUTSIDE RECORDS SUMMARY | 2024-04-25 14:05 | XMS_ITS | Encounter Summary ---
Author Organization [facility] Address [address] [place] [address] Care Team Providers Care Learning Coach Name Role Phone Asher Garrison MD Primary Care Provider [phone] Cole Ku MD Unavailable Willis Veras MD Primary Care Provider Elizabeth Garcia MD Unavailable [phone] Encounter Details Date Type Department Care Team (Late Contact Info) Description 08/29/2020 [facility] Surgery [address] [place] [address] Cole Ku MD [address] [address] Social History Tobacco Use Types Packs/Day Years Used Date Smoking Tobacco: Never Smokeless Tobacco: Never Alcohol Use Standard Drinks/Week Comments Yes 0 (1 standard drink = 0.6 oz pur e alcohol) ocassional AUDIT-C Answer Date Recorded Frequency of Alcohol Consumption 2-4 times a fri03/10/2019 Average Number of Drinks Not on file 019 Frequency of Binge Drinking Not on file 10/2018 Sex and Gender Information Value Date Recorded Sex Assigned at Not on file Gender Identity Not on file Sexual Orientation Not on file documented as of this encounter Plan of Treatment Upcoming Encounters Date Type Department Care Team (Late Contact Info) Description 06/02/2024 10:30 AM WINDOWS MIGRATION TECHNICIAN Office Visit [facility] - Orthopedic Surgery 1031 [place] [phone] Kevin Britton MD 1031 [facility] 280 [place] [address] 08/10/2024 1:00 PM CDT Office Visit [facility] - ELECTRONIC EQUIPMENT TRADES WORKER 1031 [facility] 400 [place] [phone] Daja Mir MD 5701 [facility] [place] [address] 10/26/2024 1:00 PM CDT Office Visit [facility] - Hematology/Oncology 3655 [place] [phone] Elizabeth Garcia MD 3665 [facility] 3 [place] [address] 01/17/2025 12:30 PM CDT Procedure visit [facility] - GI [address] [place] [address], [place] [phone] 01/17/2025 1:00 PM CDT Office Visit [facility] - GI [address] [place] [phone] Marlena Mccoy, MANAGER CUSTOM-MILK WAGON DRIVER [address] [place] [address] [place] [address] documented as of this encounter Goals Goal Patient Goal Type Associated Problems Recent Progress Patient-Stated? Author Mobility General On track( 021 9:08 AM WINDOWS MIGRATION TECHNICIAN) Tika Cunha, SABRINA Note: Expected end date: [...] on filedocumented in this encounter Care Teams Learning Coach Relationship Specialty Start Date End Date Asher Garrison MD 4938 [place] [address] PCP - General 08/25/18 05/02/21 Willis Veras MD 6616 [place] [address] PCP - General 05/03/21 Cole Ku MD [address] [place] [address] General Surgery 11/10/20 Elizabeth Garcia MD [address] [address] Hematology and Oncology 10/21/23 documented as of this encounter
--- OUTSIDE RECORDS SUMMARY | 2024-04-25 14:05 | XMS_ITS | Encounter Summary ---
Author Organization [facility] Address [address] [place] [address] Care Team Providers Care Email Marketing Assistant Name Role Phone Asher Garrison MD Primary Care Provider [phone] Reason for Referral * Evaluate & Treat (Routine) - Closed Specialty Diagnoses / Procedures Referred By Americo peters Referred To Contact Surgery-General Diagnoses Biliary colic Joseph Pathak MD [address] [place] [address] [place] [address] [facility] 108 [address]50 [place] [address] Referral ID Status Reason Start Date Expiration Date V isits Requested Visits Authorized [id number] Closed Specialty Services Required 08/03/2020 08/03/2021 1 1 Reason for Visit * Reason Comments Establish Care Encounter Details Date Type Department Care Team (Late st Contact Info) Description 08/03/2020 3:30 PM CDT Office Visit [facility] - GI [address] [place] [address], [place] [address] Christy Rowe MD [facility] [address] [address] Joseph Pathak MD [address] [place] [phone] Biliary colic (Primary Dx); Colon cancer screening; Chronic idiopathic constipation Social History Tobacco Use Types Packs/Day Years [...] Sign Reading Time Taken Comments Blood Pressure 156/93 08/03/2020 3:10 PM CDT Pulse 87 08/03/2020 3:10 PM CDT Temperature 36.6 ??C (97.8 ??F) 08/03/2020 3:10 PM CD T Respiratory Rate 18 08/03/2020 3:10 PM CDT Oxygen Saturation 100% 08/03/2020 3:10 PM CDT Inhaled Oxygen Concentration - - Weight 88 kg (194 lb) 08/03/2020 3:10 PM CDT Height 170.2 cm (5' 7 ) 08/03/2020 3:10 PM CDT Body Mass Index 30.38 08/03/2020 3:10 PM CDT documented in this encounter H&P Notes * Joseph Pathak MD - 08/03/2020 5:47 PM CDT [facility] Patient: Milagros Torres, 55 year old Evaluation requested by: Marlena Mccoy, AIR BAG BUILDER-ASSISTANT FLOOR COVERING PRINTER; Asher Garrison MD; Erma Neri MD. Chief complaint / Purpose of visit: RUQ abdominal pain History obtained from: Patient and available medical records 55F w/ PMH notable for: HTN, Breast Ca s/p partial mastectomy + RT on Tamoxifen, liver steatosis + isolated AST elevation for which she follows w/ Hepatology and has pending Fibroscan, and Zoster ~ 2y/a at right abdominal flank / mid-axillary line region. Referred today for further evaluation of intermittent pain in the region of the right abdominal flank and right upper quadrant of the abdomen. Episodes may occur any time of the day or wake her up from sleep. Typically last 10-15 min at a time. No specific triggers or relieving factors. No association w/ PO intake. Appears different from Zoster pain she had 2 y/a in the area. Denies fevers, weight loss, jaundice, changes in BMs or signs of overt GI bleeding. Notes underlying constipation, having hard BMs every few days. Exam notable for RUQ TTP with negative Montgomery's sx. Workup notable for hepatic steatosis and cholelithiasis. No prior colonoscopy. Family history notable for colon polyps in father, brother and ?sister. Review of Systems: 10 system review negative other than below - No fevers - No weight loss - No jaundice - No nausea/vomiting +RUQ abdominal / lateral pain - No diarrhea +Constipation - No hematemesis, melena or hematochezia PMH: Diagnosis Date ??? Arthropathy ??? Breast cancer ??? Depression with anxiety ??? Gallstones ??? Hypertension ??? Malignancy breast left ??? Valvular heart disease heart murmur PSH: Procedure Date ??? Breast Lumpectomy 09/04/2015 With sentinel node biopsy performed by Dr. Brittni Knight ??? Section 05/1990 ??? Dilation and Curettage Social History: Tobacco Use ??? Smoking status: Never Smoker ??? Smokeless tobacco: Never Used Substance Use Topics ??? Alcohol use: Yes Frequency: 2-4 times a month Comment: ocassional ??? Drug use: Never Family History: Problem Relation ??? Cancer - Lung Mother ??? Cancer - Breast Sister Medications: Current Outpatient Medications Medication ??? calcium 600 MG tablet ??? meloxicam (MOBIC) 15 MG tablet ??? polyethylene glycol 3350 (MIRALAX) 17 GM/SCOOP powder ??? tamoxifen (NOLVADEX) 20 MG tablet ??? Vitamin D3, cholecalciferol, 50 MCG (1999 UT) tablet No current facility-administered medications for this visit. Allergies: No Known Allergies Physical Exam: BP 156/93 Pulse 87 Temp 97.8 ??F (36.6 ??C) Resp 18 Ht 5' 7 (1.702 m) Wt 194 lb (88 kg) SpO2 100% BMI 30.38 kg/m2 General: Awake, in no apparent distress. Eyes: No scleral icterus. Lungs: Breathing comfortably in room air. Heart: Regular pulse. Abdomen: Non-distended, soft, +RUQ TTP, -Montgomery sx, -CVA TTP Neurologic: AO x4, grossly non-focal. Skin: No jaundice. Psych: Mood consistent with affect. Labs / Imaging / Procedures: Component Name 07/03/20 1019 05/12/20 1028 03/20/20 0921 WBC 7.3 7.3 5.8 HGB 13.3 12.8 12.8 NEUTPCT 55.7 63.6 56.2 Component Name 07/03/20 1019 05/12/20 1028 03/20/20 0921 NA 143 139 140 CL 110* 104 105 CO2 25 26 23 BUN 14 17 13 CREATININE 1.0 1.0 1.1 EGFR 58* 58* 52* CALCIUM 8.8 9.4 9.2 Component Name 07/03/20 1019 05/12/20 1028 03/20/20 0921 03/15/19 1331 09/10/18 1622 PROT 7.2 7.4 7.2 7.7 7.7 7.4 ALB 3.9 3.8 3.5 3.9 3.9 3.6 ALKPHOS 78 78 72 88 88 94 ALT 22 43 38 50 50 41 AST 25 54* 54* 46* 46* 46* TBILI 0.4 0.5 0.4 0.3 0.3 0.2 DBILI - - - 0.1 0.1 IBILI - - - 0.2 0.1 GGT - 54 - - - Component Value Date/Time TSH 3.203 09/13/2019 02:12 PM T4FREE 0.7 09/13/2019 02:12 PM ?? Labs on file: ALP/TBil/GGT wnl, ALT wnl, AST 40-50s ?? 03/2016 HIDA: Normal. ?? 03/2020 RUQ US: Diffuse hepatic steatosis w/o discrete lesions or intrahepatic biliary dilation.Cholelithiasis w/o acute cholecystitis. No nephrolithiasis. Assessment & Plan: # RUQ abdominal pain, consider biliary colic ?? Surgical referral for further evaluation and possible cholecystectomy # Chronic constipation ?? Start Miralax # Due for CRCS, no prior colonoscopy, FMH of colon polyps in multiple FDRs ?? We discussed colon cancer screening modalities. We discussed the risks of colonoscopy including bleeding, infection, missed lesions and perforation. The patient agreed to proceed with colonoscopy.We discussed the importance of bowel preparation and the need for an escort at end of procedure. All questions were answered. ?? Ordered Colonoscopy. Return to clinic PRN. Thank you for referring your patient for Consultation at [facility]. My final recommendations are documented in this note. If you have any further questions or concerns please feel free to contact me directly. Joseph Carpio MD Flat Examinertank driver Advanced Endoscopist Division of Gastroenterology & Hepatology [facility] documented in this encounter Plan of Treatment Upcoming Encounters Date Type Department Care Team (Late st Contact Info) Description 06/02/2024 10:[address] Office Visit [facility] - Orthopedic Surgery [address] [place] [phone] Kevin Britton MD 1031 [facility] 280 [place] [address] 08/10/2024 1:00 PM CDT Office Visit [facility] - FAX MACHINE REPAIRER [address] [place] 400 [place] [phone] Daja Mir MD 6078 [facility] [place] [address] 10/26/2024 1:00 PM CDT Office Visit [facility] - Hematology/Oncology [address] [place] [phone] Elizabeth Garcia MD 0405 [facility] 3 [place] [address] 01/17/2025 12:30 PM CDT Procedure visit [facility] - GI 1225 [facility], [place] [phone] 01/17/2025 1:00 PM CDT Office Visit [facility] - GI 1225 [facility], [place] [phone] Marlena Mccoy, AIR BAG BUILDER-ASSISTANT FLOOR COVERING PRINTER [address] [place] [address] 3F DIV [place] [address] Scheduled Referrals Name Type Priority Associated Diagnoses Orde r Schedule AMB Ref Gen Surgery - ALCON- 108 Outpatient Referral Routine Biliary colic Expected: 08/03/2020, Expires: 11/01/2021 documented as of this encounter Goals Goal Patient Goal Type Associated Problems Recent Progress Patient-Stated? Author Mobility General On track( 021 9:[address]) No Tika Pope, RN Note: Expected end [...] as of this encounter Visit Diagnoses Diagnosis Biliary colic- Primary Calculus of gallbladder without mention of cholecystitis or obstruction Colon cancer screening Special screening for malignant neoplasms, colon Chronic idiopathic constipation Unspecified constipation documented in this encounter Care Teams Email Marketing Assistant Relationship Specialty Start Date End Date Asher Garrison MD [address] [place] [phone] PCP - General 08/25/18 05/02/21 documented as of this encounter
--- OUTSIDE RECORDS SUMMARY | 2024-04-25 14:05 | XMS_ITS | Encounter Summary ---
Author Organization [facility] Address [address] [place], [place] [address]Bernadette [place] [address] Care Team Providers Care Senior Technical Editor Name Role Phone Asher Garrison MD Primary Care Provider [phone] Reason for Visit * Reason Onset Date Comments Results 09/19/2020 Encounter Details Date Type Department Care Team (Late st Contact Info) Description 09/19/2020 Telephone [facility] [address] [place] [address] Joseph Pathak MD [address] [place] [address] [place] [address] Results Social History Tobacco Use Types Packs/Day [...] on file documented as of this encounter Miscellaneous Notes * Telephone Encounter - Joseph Pathak MD - 09/19/2020 5:58 PM CDT Discussed Colonoscopy findings, path results and recommendations with patient. Recommended repeat Colonoscopy in 3 years for polyp surveillance. Patient referred understanding. Patient denies interval events since endoscopic procedure. All questions answered. Results and recommendations forwarded to referring providers. documented in this encounter Plan of Treatment Upcoming Encounters Date Type Department Care Team (Late st Contact Info) Description 06/02/2024 10:30 AM INSULATION INSTALLER Office Visit [facility] - Orthopedic Surgery [facility] [place] [phone] Kevin Britton MD 1031 [facility] 280 [place] [address] 08/10/2024 1:00 PM CDT Office Visit [facility] - DEMAND PLANNING MANAGER 1031 [facility] 400 [place] [phone] Daja Mir MD 5701 [facility] [place] [address] 10/26/2024 1:00 PM CDT Office Visit [facility] - Hematology/Oncology 3655 [place] [phone] Elizabeth Garcia MD 3665 [facility] 3 [place] [address] 01/17/2025 12:30 PM CDT Procedure visit [facility] - GI [address] [place] [phone] 01/17/2025 1:00 PM CDT Office Visit [facility] - GI [address] [place] [phone] Marlena Mccoy, TOPOGRAPHICAL ENGINEER-BANKING SERVICES OFFICER [address] [place] [address] [facility] [place] [address] documented as of this encounter Goals Goal Patient Goal Type Associated Problems Recent Progress Patient-Stated? Author Mobility General On track( 021 9:08 AM INSULATION INSTALLER) No Tika Pope, RN Note: Expected [...] on filedocumented in this encounter Care Teams Senior Technical Editor Relationship Specialty Start Date End Date Asher Garrison MD [address] [place] [phone] PCP - General 08/25/18 05/02/21 documented as of this encounter
--- OUTSIDE RECORDS SUMMARY | 2024-04-25 14:05 | XMS_ITS | Encounter Summary ---
Author Organization [facility] Address [address] [facility] [place] [address] Care Team Providers Care Instructor Dancing Name Role Phone Asher Garrison MD Primary Care Provider [phone] Encounter Details Date Type Department Care Team (Late Contact Info) Description 08/23/2020 Orders Only [facility] [place] [address] Zully Caldwell, RN Primary osteoarthritis of left knee Social History [...] (Late Contact Info) Description 06/02/2024 10:30 AM VEHICLE FARE COLLECTOR Office Visit [facility] - Orthopedic Surgery [address] [place] [phone] Kevin Britton MD [address] [address] 08/10/2024 1:00 PM CDT Office Visit [facility] - SPOUT LINER 1031 [facility] [address] [place] [phone] Daja Mir MD [address] [facility] [place] [address] 10/26/2024 1:00 PM CDT Office Visit [facility] - Hematology/Oncology [address] [place] [phone] Elizabeth Garcia MD [address] [facility] [address] 3 [place] [address] 01/17/2025 12:30 PM CDT Procedure visit [facility] [place] [address] [place] [address], [place] [phone] 01/17/2025 1:00 PM CDT Office Visit [facility] - GI [address] [place] [address], [place] [phone] Marlena Mccoy, PUBLIC POLICY ANALYST-VAMP MAKER [address] [place] [address] [facility] [place] [address] documented as of this encounter Goals Goal Patient Goal Type Associated Problems Recent Progress Patient-Stated? Author Mobility General On track( 021 9:08 AM VEHICLE FARE COLLECTOR) No Tika Pope, SABRINA Note: Expected end [...] leg documented in this encounter Care Teams Instructor Dancing Relationship Specialty Start Date End Date Asher Garrison MD [address] [place] [phone] PCP - General 08/25/18 05/02/21 documented as of this encounter
--- OUTSIDE RECORDS SUMMARY | 2024-04-25 14:05 | XMS_ITS | Encounter Summary ---
Author Organization [facility] Address [address] [facility] [place] [address] Care Team Providers Care Fire Controlman Name Role Phone Asher Garrison MD Primary Care Provider [phone] Cole Ku MD Unavailable Reason for Visit * Radiology Services (Routine) - Closed Specialty Diagnoses / Procedures Referred By Contac t Referred To Contact Gastroenterology Diagnoses NAFLD (nonalcoholic fatty liver disease) Elevated liver enzymes Procedures PROC FIBROSCAN Marlena Mccoy, CLIENT PROFESSIONAL-TELEPHONE OPERATORS SUPERVISOR 1225 [facility] 3FL [place] [address] [facility] 3l [facility]5 [place] [address] Referral ID Status Reason Start Date Expiration Date Visits Re quested Visits Authorized [id number] Closed 05/12/2020 05/12/2021 1 1 Encounter Details Date Type Department Care Team (Latest Contact Info) Description 11/10/2020 8:30 AM CDT Procedure visit [facility] - [address] [address] Liborio Greenfield MD [address] [facility] 2L [place] [address] NAFLD (nonalcoholic fatty liver disease) ; Elevated liver enzymes Social History Tobacco Use Types Packs/Day Years [...] have Coronavirus / COVID-19? No / Unsure 10/19/2020 9:48 AM CDT documented as of this encounter Procedure Notes * Elizabet Elise RN - 11/10/2020 8:36 AM CDTAssociated Order(s): PROC FIBROSCAN Procedure(s): HI LIVER ELASTOGRAPHY Pre-Procedure Diagnose(s): NAFLD (nonalcoholic fatty liver disease); Elevated liver enzymes Diagnosis: NAFLD RN verified patient not , no implanted devices and NPO for prior 3 hours. Procedure explained and consent signed. Date of Exam: 11/10/2020 Liver Stiffness: (LSM, kPa) median: 9.4 IQR (interquartile range): 0.7 IQR/Median% (ideally < 30%): 7 CAP (controlled attenuation parameter): 332 Technical Difficulty: None Ordering Provider: Marlena Mccoy [...] patients with nonalcoholic fatty liver disease. Gastroenterology 2019;156:6558-5785. Iris MS, Abilio R, Van Anatoliy ML, [...] improved by also calculating the FIB4 score (Tavoyduke et al. Hepatology Communications 2019;3:4716-6842) or NAFLD Fibrosis score (Pitts et al. Clinical Gastroenterology and Hepatology 2019;17:4754-9533. from routine clinical data. 3. Liver stiffness [...] change as additional supporting data becomes available. [email or web address] documented in this encounter Plan of Treatment Upcoming Encounters Date Type Department Care Team (Late st Contact Info) Description 06/02/2024 10:30 AM TRAFFIC CLERK Office Visit [facility] - Orthopedic Surgery 10[address] [place] [phone] Kevin Britton MD 1031 [facility] 280 [place] [address] 08/10/2024 1:00 PM CDT Office Visit [facility] - IT SERVICE CONTINUITY SUPERVISOR 1031 [facility] 400 [place] [phone] Daja Mir MD 5[address] [place] [address] 10/26/2024 1:00 PM CDT Office Visit [facility] - Hematology/Oncology 3655 [place] [phone] Elizabeth Garcia MD 3665 [facility] 3 [place] [address] 01/17/2025 12:30 PM CDT Procedure visit [facility] - GI [address] [place] [phone] 01/17/2025 1:00 PM CDT Office Visit [facility] - GI [address] [place] [phone] Marlena Mccoy, CLIENT PROFESSIONAL-TELEPHONE OPERATORS SUPERVISOR [address] [place] [address] [facility] [place] [address] documented as of this encounter Goals Goal Patient Goal Type Associated Problems Recent Progress Patient-Stated? Author Mobility General On track( 021 9:08 AM TRAFFIC CLERK) No Tika Pope, SABRINA Note: Expected end [...] Procedure Name Priority Date/Time Associated Diagnosis Comments HI LIVER ELASTOGRAPHY Routine 11/10/2020 8:36 AM CDT NAFLD (nonalcoholic fatty liver disease) Elevated liver enzymes documented in this encounter Results * HI LIVER ELASTOGRAPHY (11/10/2020 8:36 AM CDT) Narrative [...] patients with nonalcoholic fatty liver disease. Gastroenterology 2019;156:7430-5778. Iris MS, Abilio R, Van Anatoliy ML, [...] improved by also calculating the FIB4 score (Tavoyduke et al. Hepatology Communications 2019;3:3217-8272) or NAFLD Fibrosis score (Pitts et al. Clinical Gastroenterology and Hepatology 2019;17:8903-2614. from routine clinical data. 3. Liver stiffness [...] change as additional supporting data becomes available. [email or web address] Marlena Mccoy CLIENT PROFESSIONAL-TELEPHONE OPERATORS SUPERVISOR PROCEDURE/M INOR SURGICAL ORDERABLES documented in this encounter Visit Diagnoses Diagnosis NAFLD (nonalcoholic fatty liver disease)- Primary Other chronic nonalcoholic liver disease Elevated liver enzymes Nonspecific elevation of levels of transaminase or lactic acid dehydrogenase (LDH) documented in this encounter Care Teams Fire Controlman Relationship Specialty Start Date End Date Asher Garrison MD [address] [place] [address] PCP - General 08/25/18 05/02/21 Cole Ku MD [address] [address] General Surgery 11/10/20 documented as of this encounter
--- OUTSIDE RECORDS SUMMARY | 2024-04-25 14:05 | XMS_ITS | Encounter Summary ---
Author Organization [facility] Address [address] [place] [address] Care Team Providers Care Hem Marker Name Role Phone Asher Garrison MD Primary Care Provider [phone] Reason for Visit * Reason Comments Pain Knee Encounter Details Date Type Department Care Team (Latest Contact Info) Description 08/01/2020 10:00 AM CDT Office Visit [facility] - Orthopedics [address] [place] [phone] Kevin Britton MD [address] [phone] Primary osteoarthritis of left knee (Primary Dx) [...] on file documented as of this encounter Progress Notes * Kevin Britton MD - 08/01/2020 10:00 AM CDT Patient returns for repeat left knee injection ?? Physical exam: Examination left knee reveals intact skin without signs of infection ?? X-rays: None obtained ?? Assessment: Left knee osteoarthritis here for left knee injection ?? Plan: We will proceed with repeat left knee injection today. Please see the procedure note for further details. We will see her back as needed documented in this encounter Procedure Notes * Kevin Britton MD - 08/01/2020 10:34 AM CDTAssociated Order(s): PROC INJECTION JOINT (SMALL/INTERMED/MAJOR) Procedure(s): HI DRAIN/INJECT LARGE JOINT/BURSA Pre-Procedure Diagnose(s): Primary osteoarthritis [...] Myself Kevin Britton MD 08/01/2020 10:34 AM documented in this encounter Plan of Treatment Upcoming Encounters Date Type Department Care Team (Late st Contact Info) Description 06/02/2024 10:30 AM RADIATION OFFICER Office Visit [facility] - Orthopedic Surgery [address] [place] [phone] Kevin Britton MD [address] [place] [address] 08/10/2024 1:00 PM CDT Office Visit [facility] - RESEARCH COORDINATOR 1031 [facility] [address] [place] [phone] Daja Mir MD 5702 [facility] [place] [address] 10/26/2024 1:00 PM CDT Office Visit [facility] - Hematology/Oncology [address] [place] [phone] Elizabeth Garcia MD 3664 [facility] [address] 3 [place] [address] 01/17/2025 12:30 PM CDT Procedure visit [facility] - GI 1225 [facility], [place] [phone] 01/17/2025 1:00 PM CDT Office Visit [facility] - GI [address] [place] [address], [facility] [place] [phone] Marlena Mccoy, MELTER SUPERVISOR OXYGEN FURNACE-DEPARTMENT CLERK [address] [place] [address] [facility] [place] [address] documented as of this encounter Goals Goal Patient Goal Type Associated Problems Recent Progress Patient-Stated? Author Mobility General On track( 021 9:08 AM RADIATION OFFICER) No Tika Pope, SABRINA Note: Expected end [...] Name Priority Date/Time Associated Diagnosis Comments HI DRAIN/INJECT LARGE JOINT/BURSA Routine 08/01/2020 10:34 AM CDT Primary osteoarthritis of left knee documented in this encounter Results * HI DRAIN/INJECT LARGE JOINT/BURSA (08/01/2020 10:34 AM CDT) [...] 6 mL, Infiltration, ONCE, 1 dose, On Tu08/01/20 at 1045 $ Given 08/01/2020 12:09 PM CDT 6 mL Left Knee triamcinolone acetonide (Kenalog-40) injection 80 mg 80 mg, Intra-articular, ONCE, 1 dose, On Fri08/01/20 at 1045, Shake well before using. $ Given 08/01/2020 12:10 PM CDT 80 mg Left Knee documented in this encounter Care Teams Hem Marker Relationship Specialty Start Date End Date Asher Garrison MD [address] [place] [phone] PCP - General 08/25/18 05/02/21 documented as of this encounter
--- OUTSIDE RECORDS SUMMARY | 2024-04-25 14:05 | XMS_ITS | Encounter Summary ---
Author Organization [facility] Address [address] [facility] [place] [address] Care Team Providers Care Machine Oiler Name Role Phone Asher Garrison MD Primary Care Provider [phone] Encounter Details Date Type Department Care Team (Latest Contact Info) Description 05/12/2020 Travel Social History Tobacco Use Types Packs/Day [...] have Coronavirus / COVID-19? No / Unsure 05/12/2020 9:50 AM MEDIATOR documented as of this encounter Plan of Treatment Upcoming Encounters Date Type Department Care Team (Late st Contact Info) Description 06/02/2024 10:30 AM MEDIATOR Office Visit [facility] - Orthopedic Surgery 1031 [place] [phone] Kevin Britton MD [address] [address] 08/10/2024 1:00 PM CDT Office Visit [facility] - SCUBA DIVING INSTRUCTOR 10[address] [facility] [address] [place] [phone] Daja Mir MD 5702 [facility] [place] [address] 10/26/2024 1:00 PM CDT Office Visit [facility] - Hematology/Oncology 3655 [place] [phone] Elizabeth Garcia MD 366[address] [facility] [address] 3 [place] [address] 01/17/2025 12:30 PM CDT Procedure visit [facility] - GI [address] [facility], [place] [phone] 01/17/2025 1:00 PM CDT Office Visit [facility] - GI [address] [place], [place] [phone] Marlena Mccoy, BUILDING CARPENTER-INTERN ARCHITECT [address] [place] [address] [facility] [place] [address] documented as of this encounter Goals Goal Patient Goal Type Associated Problems Recent Progress Patient-Stated? Author Mobility General On track( 021 9:08 AM MEDIATOR) No Tika Pope, RN Note: Expected end [...] on filedocumented in this encounter Care Teams Machine Oiler Relationship Specialty Start Date End Date Asher Garrison MD [address] [place] [phone] PCP - General 08/25/18 05/02/21 documented as of this encounter
--- OUTSIDE RECORDS SUMMARY | 2024-04-25 14:05 | XMS_ITS | Encounter Summary ---
Author Organization [facility] Address [address] [facility] [place] [address] Care Team Providers Care Business Specialist Name Role Phone Asher Garrison MD Primary Care Provider [phone] [phone] Encounter Details Date Type Department Care Team (Latest Contact Info) Description 10/19/2020 Travel Social History Tobacco Use Types Packs/Day [...] AM CDT documented as of this encounter Plan of Treatment Upcoming Encounters Date Type Department Care Team (Late st Contact Info) Description 06/02/2024 10:30 AM SPECIAL EDUCATION PROFESSOR Office Visit [facility] - Orthopedic Surgery [address] [place] [phone] Kevin Britton MD [address] [address] 08/10/2024 1:00 PM CDT Office Visit [facility] - CATEGORY DIRECTOR [address] [facility] [address] [place] [phone] Daja Mir MD 5707 [facility] [place] [address] 10/26/2024 1:00 PM CDT Office Visit [facility] - Hematology/Oncology [address] [place] [phone] Elizabeth Garcia MD [address] [facility] [address] 3 [place] [address] 01/17/2025 12:30 PM CDT Procedure visit [facility] - GI 1225 [facility], [place] [phone] 01/17/2025 1:00 PM CDT Office Visit [facility] - GI 1225 [facility], [place] [phone] Marlena Mccoy, BOARD MILL SUPERVISOR-SILO ERECTOR [address] [place] [address] [facility] [place] [address] documented as of this encounter Goals Goal Patient Goal Type Associated Problems Recent Progress Patient-Stated? Author Mobility General On track( 021 9:08 AM SPECIAL EDUCATION PROFESSOR) No Tika Pope, RN Note: Expected end [...] on filedocumented in this encounter Care Teams Business Specialist Relationship Specialty Start Date End Date Asher Garrison MD [address] [place] [phone] PCP - General 08/25/18 05/02/21 documented as of this encounter
--- OUTSIDE RECORDS SUMMARY | 2024-04-25 14:05 | XMS_ITS | Encounter Summary ---
Author Organization [facility] [place] Address [address] [place] [address] Care Team Providers Care Battery Stacker Name Role Phone Asher Garrison MD Primary Care Provider + [phone] Cole Ku MD Unavailable Reason for Visit * Auth/Cert Specialty Diagnoses / Procedures Referred By Americo t Referred To Contact Diagnoses Biliary colic Biliary colic Procedures LAPAROSCOPIC CHOLECYSTECTOMY Referral ID Status Reason Start Date Expiration Date Visits Re quested Visits Authorized [id number] 1 1 Encounter Details Date Type Department Care Team (Late st Contact Info) Description 12/05/2020 7:30 AM CDT - 12/05/2020 9:35 AM CDT Surgery [facility] [address] [place] [phone] Cole Ku MD [address] [facility] 2L DIV OF [facility] [place] [phone] LAPAROSCOPIC CHOLECYSTECTOMY Surgery Details Date/Time Status Location OR Service Patient Class Case Class Case Type Trauma Case? 12/05/2020 7:30 AM Posted [facility] OR OR 14 General Surgery Day Care Panel 1 Procedure LRB Anes Op Region Wound Class Comments LAPAROSCOPIC CHOLECYSTECTOMY N/A General Abdomen C lean Contaminated Surgeon Surgeon Role Service Panel Cole Ku MD Primary General 1 Beto Kennedy MD Resident - Assisting General 1 Isaías Ansari MD Resident - Assisting General 1 Special Needs Pt will schedule PATNO COVID testing needed Auth Approved [id number] 08/29/2020 to 11/28/2020 documented in this encounter Social History Tobacco [...] Sign Reading Time Taken Comments Blood Pressure 142/85 12/05/2020 9:35 AM CDT Pulse 72 12/05/2020 9:35 AM CDT Temperature 36.2 ??C (97.2 ??F) 12/05/2020 9:05 AM CD T Respiratory Rate 14 12/05/2020 9:35 AM CDT Oxygen Saturation 99% 12/05/2020 9:35 AM CDT Inhaled Oxygen Concentration - - Weight 88 kg (194 lb 1.6 oz) 12/05/2020 6:02 AM CDT Height 170.2 cm (5' 7 ) 12/05/2020 6:02 AM CDT Body Mass Index 30.4 12/05/2020 6:02 AM CDT documented in this encounter Functional [...] mouth once daily 90 tablet 2 03/23/2019 meloxicam (MOBIC) 15 MG tabletIndications:Primary osteoarthritis of left knee Take 1 (one) tablet by mouth once daily 90 tablet 1 08/23/2020 02/25/2021 tamoxifen (NOLVADEX) 20 MG tablet Take 1 tablet by mouth 11/17/2015 04/05/2021 documented as of this encounter Progress Notes * Taniya Buenrostro RN - 12/05/2020 6:22 AM CDT Pt ready per this RN standpoint. Pt needs H&P and consents. documented in this encounter H&P Notes * Cole Ku MD - 12/05/2020 6:27 AM CDT General Surgery Pre-Op History and Physical Milagros Torres Age: [age] year old female Date of : 1965 Admit Date: 12/05/2020 Admitting Physician: Cole Ku MD SUBJECTIVE Procedure: Laparoscopic cholecystectomy, possible open History of Present Illness: Patient is a 55 year old female with NAFLD and cholelithiasis as identifed on US imaging here todayfor surgical removal of gallbladder due to continue right upper quadrant pain. Today Patient currently denies headaches, dizziness, tremors, shortness of breath, chest pain, fever, chills, nausea, vomiting, diarrhea, constipation, dysuria or changes in appetite. Past Medical History: Past Medical History: Diagnosis Date Arthropathy Breast cancer Depression with anxiety Disorder of liver NAFLD Gallstones Hypertension required meds when getting radiation for breast CA. No longer requiring meds Malignancy breast left Valvular heart disease heart murmur PCP: Asher Garrison MD Past Surgical History: Past Surgical History: Procedure Laterality Date Breast Lumpectomy Left 09/04/2015 With sentinel node biopsy performed by Dr. Brittni Knight Section 05/1990 COLONOSCOPY N/A 09/18/2020 N/A; COLONOSCOPY SCREEN---extended prep with Cheesman Dilation and Curettage twice Family History: Family History Problem Relation Name Age of Onset Cancer - Lung Mother Cancer - Breast Sister Social History: Social History Tobacco Use Smoking status: Never Smoker Smokeless tobacco: Never Used Substance Use Topics Alcohol use: Yes Comment: ocassional weekends Allergies: Not on File Medications: Medications Prior to Admission Medication Sig Dispense Refill calcium 600 MG tablet Take 1 tablet by mouth daily with food 90 tablet 2 meloxicam (MOBIC) 15 MG tablet Take 1 (one) tablet by mouth once daily 90 tablet 1 tamoxifen (NOLVADEX) 20 MG tablet Take 1 tablet by mouth Vitamin D3, cholecalciferol, 50 MCG (1999) tablet Take 1 tablet by mouth once daily 90 tablet 2 Review of Systems: positives are in bold; Constitutional: fevers, chills, sweats, fatigue, weight loss/gain, chronic pain HEENT: head trauma, vision/hearing/voice changes, eye/ear/throat pain, nasal discharge, dysphagia, sores, ulcers, sinus pain Respiratory: cough, hemoptysis, sputum, [place], dyspnea at rest, PND, wheezing Cardiovascular: chest pain/discomfort, palpitations, lower extremity edema, calf/leg pain Gastrointestinal: nausea/vomiting, diarrhea, constipation, melena, abdominal pain Genitourinary: dysuria, urgency, frequency, incontinence, hematuria Integument: rash, ulcers, itching Hematologic/lymphatic: easy bruising, bleeding, petechiae Musculoskeletal: myalgias, arthralgias Neurological: headaches, dizziness, numbness, tingling, seizures Behavioral/Psych: anxiety, depression, memory problems Endocrine: polyuria, polydipsia, polyphagia, heat/cold intolerance OBJECTIVE Vitals: 12/05/20 0602 12/05/20 0612 BP: 165/98 Pulse: 65 Resp: 15 Temp: 98.1 ??F (36.7 ??C) SpO2: 97% Weight: 194 lb 1.6 oz (88 kg) Height: 5' 7 (1.702 m) Temp (24hrs), Av.1 ??F (36.7 ??C), Min:98.1 ??F (36.7 ??C), Max:98.1 ??F (36.7 ??C) Systolic (36hrs), Av , Min:165 , Max:165 Diastolic (36hrs), Av, Min:98, Max:98 Estimated body mass index is 30.4 kg/m?? as calculated from the following: Height as of this encounter: 5' 7 (1.702 m). Weight as of this encounter: 194 lb 1.6 oz (88 kg). PREVIOUS WEIGHTS: Wt Readings from Last 5 Encounters: 12/05/20 194 lb 1.6 oz (88 kg) 11/27/20 193 lb 4.8 oz (87.7 kg) 11/10/20 195 lb (88.5 kg) 09/18/20 186 lb (84.4 kg) 08/23/20 183 lb (83 kg) Physical Examination: General: Alert, cooperative, no distress, appears stated age. Head: Normocephalic, without obvious abnormality, atraumatic. Eyes: Conjunctivae/corneas clear. EOMs intact. Ears: Hearing intact bilaterally Nose: Nares normal. Septum midline. Mucosa normal. No drainage or sinus tenderness. Throat: Lips, mucosa, and tongue normal. Teeth and gums normal. No mucositis Neck: Supple, symmetrical, trachea midline, no adenopathy, thyroid: no enlargment/tenderness/nodules, no carotid bruit and no JVD. Lungs: Clear to auscultation bilaterally. Chest wall: No tenderness or deformity. Heart: Regular rate and rhythm, S1, S2 normal, no murmur Abdomen: Soft, non-tender. Bowel sounds normal. No masses, No organomegaly. Back: Symmetric, no curvature. ROM normal. No CVA tenderness. Extremities: Extremities normal, atraumatic, no cyanosis or edema. Pulses: 2+ and symmetric all extremities. Skin: Skin color, texture, turgor normal. No rashes or lesions Lymph nodes: Cervical, supraclavicular, and axillary nodes normal. Neurologic: Grossly normal Data Review: Labs: CBC Recent Labs Component Name 07/03/20 1019 05/12/20 1028 03/20/20 0921 09/13/19 1412 WBC 7.3 7.3 5.8 9.8 HGB 13.3 12.8 12.8 13.3 HCT 40.2 38.9 39.9 40.2 PLTCOUNT 166 182 173 162 BMP Recent Labs Component Name 11/27/20 0947 07/03/20 1019 05/12/20 1028 03/20/20 0921 NA 146* 143 139 140 POTASSIUM 4.0 4.1 3.9 3.9 CL 109* 110* 104 105 CO2 29 25 26 23 BUN 13 14 17 13 CREATININE 1.00* 1.0 1.0 1.1 GLUCOSE 83 86 79 84 CALCIUM 9.9 8.8 9.4 9.2 LFTs Recent Labs Component Name 11/27/20 0947 07/03/20 1019 05/12/20 1028 03/20/20 0921 PROT 6.9 7.2 7.4 7.2 ALB 3.5 3.9 3.8 3.5 TBILI 0.3 0.4 0.5 0.4 ALT 32 22 43 38 AST 34 25 54* 54* ALKPHOS 69 78 78 72 Coag Recent Labs Component Name 05/12/20 1028 PT 12.6 INR 1.0 Cardiac markers No results for input(s): CKTOTAL, CKMB, TROPONINI in the last 83345 hours. Iron Studies Recent Labs Component Name 05/12/20 1028 FERRITIN 132 TRANSFERRIN 317 IRON 126 Urine: UA Recent Labs Component Name 11/27/20 0947 07/03/20 1019 05/12/20 1028 03/20/20 0921 EGFR 63* 58* 58* 52* UDS No results for input(s): OPIATESUR, LABAMPH, LABBARB, LABBENZ, COCAINESCRN, METHADONE, LABPHEN, LABCANN in the last 54638 hours. Other Blood Alcohol (BAL): No results for input(s): ETOH in the last 28948 hours. Serum Acetaminophen: No results for input(s): ACETAMINO in the last 31700 hours. Serum Salicylate:No results for input(s): SALICYLATE in the last 68819 hours. Microbiology: Microbiology Results (Displays last 21 days for this encounter ONLY) No results found for the last 504 hours. Radiology Impressions: Abdominal US 2019 1. Diffuse hepatic steatosis without discrete hepatic lesion or intrahepatic biliary dilation. Patent hepatic vasculature. 2. Cholelithiasis without evidence of acute cholecystitis. 3. Normal renal size. No evidence of nephrolithiasis or hydronephrosis. Pathology: None Assessment and Plan: Milagros Torres is a 55 year old female with NAFLD and RUQ pain 2/2 cholelithiasis as identifed on US imaging here today for laparoscopic cholecystectomy, possible open. - Informed consent obtained and present in chart. - COVID-19 negative - Vaccinated August and September - Risks and benefits of procedure were explained to the patient. All questions were answered and the patient expressed understanding of procedure and agreed to proceed. - OK for OR with Dr Elmira Kennedy Jr., MD MPH General Surgery 12/05/2020 6:28 AM Attending Surgeon Note I have seen and examined Ms. Torres on 12/05/20 and agree with the resident's assessment and plan. She has had no changes in her health status and she is ready to proceed. Cole Ku MD hardboard grinder [facility] documented in this encounter OR Notes * Brief Op Note - Cole Ku MD - 12/05/2020 8:14 AM CDT Brief Op Note Procedure: LAPAROSCOPIC CHOLECYSTECTOMY Patient Name: Milagros Torres Date of Service: 12/05/2020 Pre-Op Diagnosis: Biliary colic Post-Op Diagnosis: same Surgeon(s) and Role: * Cole Ku MD - Primary * Beto Kennedy MD - Resident - Assisting * Isaías Ansari MD - Resident - Assisting Anesthesia Type: general ETT Complications: none Findings: Inflamed GB with pericholecystic fluid. Distended GB EBL: minimal blood loss Urine Output : no haque IV Fluid Intake: 1000 ml of LR Drains: none Specimen(s): gallbladder Order Name Source Comment Collection Info Order Time PATHOLOGY TISSUE Gallbladder Pre-op diagnosis: Biliary colic Collected By: Cole Ku MD 12/05/2020 8:41 AM Release to patient Immediate Isaías Ansari MD * Operative - Cole Ku MD - 12/05/2020 8:14 AM CDT GENERAL SURGERY OPERATIVE REPORT Date of Procedure: 12/05/2020 Patient name: Milagros Torres Preoperative diagnosis: Cholelithiasis Postoperative diagnosis: same Procedure performed: Laparoscopic cholecystectomy Surgeon: Cole Ku MD Crown Ironer: Isaías Ansari MD, Beto Kennedy MD Anesthesia: General endotracheal anesthesia with local Indications: This is a 55 year old female with a history of biliary cholics and ultrasound documentation of cholelithiasis. There was no evidence of biliary dilatation. Therefore, we will proceed with a laparoscopic cholecystectomy.We have discussed the potential benefits versus risks of the operation and the parents wish to proceed. Findings: Inflamed GB with pericholecystic fluid. Distended GB Procedure: The patient was brought to the operating room and underwent general anesthesia. The abdomen was prepped and draped in the standard fashion. IV antibiotics were given and a Haque catheter was placed. We made a 12 mm incision through the umbilicus and extended this down to the fascia. The fascia wasopened and the trocar placed under direct visualization. A 5 mm trocar was placed in the epigastrium, and two more 5 mm trocars were inserted in the right lateral sites. Marcaine was infiltrated intothe wounds. The gallbladder was located and grasped at the fundus and retracted up toward the patient's shoulder. There was opening of the GB with some bile spilage which was suctioned and irrigated.The infundibulum was grasped and retracted laterally. A window was made between the cystic artery and the cystic duct, clearly delineating the two structures. These were clipped with a 5 mm clip elementary secretary and divided. The peritoneum was incised with hook cautery, and the gallbladder was taken from the liver bed, ensuring hemostatis. The gallbladder was directed toward the umbilical trocar under direct visualization, the trocar removed and the gallbladder removed. The trocar was replaced, the liver bed was examined and the trocars removed under direct visualization. The insufflation was then terminated. The umbilicus wound was closed with a figure of eight of 0 vicryl with a suture passer. Skin was closed in all wounds with subcuticular 4.0 Monocryl. All wounds were dressed with skin glue. The patient tolerated the procedure well, was extubated and taken to the recovery room in satisfactory condition. Dr Ku was present for the entirety of the case. Complications: none EBL: Minimal blood loss Specimens: gallbladder Isaías Ansari MD 12/05/2020 9:13 AM I, Cole Ku, was present for the entire case. Cole Ku MD, CARLOS, FACS hardboard grinder [facility] documented in this encounter Plan of Treatment Upcoming Encounters Date Type Department Care Team (Late st Contact Info) Description 06/02/2024 10:30 AM CLEAT BLANKER Office Visit [facility] - Orthopedic Surgery [facility] [place] [phone] Kevin Britton MD [address] [facility] [address] [place] [address] 08/10/2024 1:00 PM CDT Office Visit [facility] - OCEAN EXPORT AGENT [address] [place] [address] [address] [place] [phone] Daja Mir MD [address] [place] [address] 10/26/2024 1:00 PM CDT Office Visit [facility] - Hematology/Oncology [address] [place] [phone] Elizabeth Garcia MD [address] [facility] [address] [place] [address] 01/17/2025 12:30 PM CDT [facility] [address] [place] [phone] 01/17/2025 1:00 PM CDT Office Visit [facility] - GI [address] [place] [phone] Marlena Mccoy, CHILD DAY CARE PROVIDER-VAULT CUSTODIAN [address] [place] [address] documented as of this encounter Goals Goal Patient Goal Type Associated Problems Recent Progress Patient-Stated? Author Mobility General On track( 021 9:08 AM CLEAT BLANKER) No Tika Pope, RN Note: Expected end [...] Date/Time Associated Diagnosis Comments PATHOLOGY TISSUE Routine 12/05/2020 8:40 AM CDT Biliary colic PA LAP,CHOLECYSTECTO MY 12/05/2020 8:14 AM CDT Biliary colic Special Needs Pt will schedule PATNO COVID testing needed Auth Approved [id number] 08/29/2020 to 11/28/2020 documented in this encounter Results * PATHOLOGY TISSUE (12/05/2020 8:40 AM CDT) Case Report Surgical Pathology Report ? Case: [id number] ? Authorizing Provider: ??Cole Ku MD ? Collected: ? 12/05/2020 08:40 AM ? Ordering Location: ? [facility] ?Received: ?12/05/2020 11:42 AM ? Pathologist: ? Christiano Oglesby MD ? Specimen: ?Gallbladder, gallbladder ? 12/06/2020 4:09 PM CDT [facility] Final Diagnosis Gallbladder, cholecystectomy (A): - Cholelithiasis - Cholesterolosis - Active chronic cholecystitis 12/06/2020 4:09 PM [facility] Microscopic Description and Comment Microscopic examination substantiates the final diagnosis. 12/06/2020 4:09 PM [facility] Clinical History 55 y/o female with a PMH of NAFLD, 4 year h/x of biliary colic with ultrasound documentation of cholelithiasis, and breast cancer s/p lumpectomy 09/04/2015. Presented with RUQ pain. Laparoscopic cholecystectomy findings of dilated, inflamed GB with pericholecystic fluid. 12/06/2020 4:09 PM [facility] Gross Description The requisition and specimen(s) are identified with patient's name, Milagros Torres. Received in formalin, specimen A is an intact gallbladder measuring 6.5 x 1.5 x 1.5 cm. The cystic duct is stapled. The serosa is light dumont and glistening. The hepatic bed is roughened. Sectioning shows multiple yellow-brown gallstones with an aggregate measurement of 2.0 x 1.2 x 0.8 cm. The gallbladder wall thickness is 0.2 cm. The mucosa shows reyes specks consistent with cholesterolosis, light dumont and velvety. There is a slight mucosal disruption (0.5 x 0.4 x 0.1 cm , 5.0 cm from cystic duct margin). Electric Truck Operator sections of the specimen are submitted as follows: A1 senior sales representative mucosa and cystic duct margin, A2 mucosal disruption. 12/06/2020 4:09 PM CDT [facility] Disclaimer The performance characteristics of all immunohistochemical and indirect immunofluorescence stains (if any) cited in this report were determined by the Histopathology Laboratory of [facility]. Some of these tests were developed [...] and interpreted by the attending (teaching) pathologist. 12/06/2020 4:09 PM CDT [facility] Embedded Images 12/06/2020 4:09 PM CDT [facility] Removal ENTIRE GALLBLADDER / Unknown 12/05/2020 8:40 AM CDT 12/05/2020 11:42 AM CDT Comment:Pre-op diagnosis: Biliary colic Cole Ku MD LAB - PATHOLOGY/CYTO LOGY ORDERABLES Performing Organization Address City/State/[facility] Co de Phone Number [facility] [address] [phone] documented in this encounter Visit Diagnoses Diagnosis Biliary colic Calculus of gallbladder without mention of cholecystitis or obstruction Biliary colic Calculus of gallbladder without mention of cholecystitis or obstruction documented in this encounter Administered Medications Inactive Administered Medications - up to 3 most recent administrations Medication Order MAR Action Action Date Dose Rate Site 0.9% NaCl infusion at 125 mL/hr, Intravenous, CONTINUOUS, Starting on Fri12/05/20 at 0915, Until Fri12/05/20 at 1242, PACU bupivacaine 0.25% - EPINEPHrine 1:200,000 (PF) injection PRN, Starting on Fri12/05/20 at 0814, Until Fri12/05/20 at 0907, Intra-op $ Given 12/05/2020 8:14 AM CDT 10 mL Operative Site fentaNYL (PF) (Sublimaze) injection 25 mcg 25 mcg, Intravenous, EVERY 10 MIN PRN, Mild Pain, 4 doses, Starting on Fri12/05/20 at 0910, Until Fri12/05/20 at 1242, Maximum total of 4 doses. If patient reaches max total dose, please consult anesthesiologist prior to further administration of pain meds. Hold pain meds if there are signs of hypoventilation., PACU fentaNYL (PF) (Sublimaze) injection 50 mcg 50 mcg, Intravenous, EVERY 10 MIN PRN, Moderate Pain, 4 doses, Starting on Fri12/05/20 at 0918, Until Fri12/05/20 at 1242, Maximum total of 4 doses. If patient reaches max total dose, please consult anesthesiologist prior to further administration of pain meds. Hold pain meds if there are signs of hypoventilation., PACU $ Given 12/05/2020 9:20 AM CDT 50 mcg $ Given 12/05/2020 9:05 AM CDT 50 mcg HYDROmorphone (Dilaudid) injection 0.5 mg 0.5 mg, Intravenous, EVERY 10 MIN PRN, Severe Pain, 4 doses, Starting on Fri12/05/20 at 0918, Until Fri12/05/20 at 1242, Maximum total of 4 doses If patient reaches max total dose, please consult anesthesiologist prior to further administration of pain meds. Hold pain meds if there are signs of hypoventilation., PACU $ Given 12/05/2020 9:45 AM CDT 0.5 mg lactated ringers infusion at 20 mL/hr, Intravenous, PRE-OP CONTINUOUS, Starting on Fri12/05/20 at 0600, Until Fri12/05/20 at 1242, Pre-op $ New Bag/Syringe 12/05/2020 6:21 AM CDT 20 mL/hr lidocaine 1% (Xylocaine-MPF) - EPINEPHrine 1:100,000 injection PRN, Starting on Fri12/05/20 at 0814, Until Fri12/05/20 at 0907, Intra-op $ Given 12/05/2020 8:14 AM CDT 10 mL Operative Site naloxone (Narcan) injection 0.04 mg 0.04 mg, Intravenous, POST-OP MULTIPLE, Starting on Fri12/05/20 at 0910, Until Fri12/05/20 at 1242, Notify physician immediately, and mix 0.4 mg [...] ONCE PRN, Nausea/Vomiting, 1 dose, Starting on Fri12/05/20 at 0910, Until Fri12/05/20 at 1242, First choice, PACU oxyCODONE (immediate release) (Roxicodone) tablet 10 mg 10 mg, Oral, EVERY 4 HOURS PRN, Severe Pain, Starting on Fri12/05/20 at 0907, Until Fri12/05/20 at 1242 oxyCODONE (immediate release) (Roxicodone) tablet 5 mg 5 mg, Oral, EVERY 4 HOURS PRN, Moderate Pain, Starting on Fri12/05/20 at 0907, Until Fri12/05/20 at 1242 $ Given 12/05/2020 9:40 AM CDT 5 mg prochlorperazine (Compazine) injection 10 mg 10 mg, Intravenous, ONCE PRN, Nausea/Vomiting, 1 dose, Starting on Fri12/05/20 at 0910, Until Fri12/05/20 at 1010, Second choice, use if first choice was ineffective., PACU $ Given 12/05/2020 10:10 AM CDT 10 mg documented in this encounter Active and Recently Administered Medications Times are shown in CDT. Scheduled Medication Order 12/03/2020 12/04/2020 12/05/2020 naloxone (Narcan) injection 0.04 mg 0.04 mg, Intravenous, POST-OP MULTIPLE, Starting on Fri12/05/20 at 0910, Until Fri12/05/20 at 1242, Notify physician immediately, and mix 0.4 mg Naloxone in 9 mL Normal Saline for slow IV push. Administer dilute Naloxone solution IV very slowly (1 mL over 30 seconds) while observing the patient response and titrating to effect. If no response, call Rapid Response, continue IV Naloxone at the same rate up to a total of 0.8 mg of diluted Naloxone., PACU Continuous Medication Order 12/03/2020 12/04/2020 12/05/2020 0.9% NaCl infusion at 125 mL/hr, Intravenous, CONTINUOUS, Starting on Fri12/05/20 at 0915, Until Fri12/05/20 at 1242, PACU 0915 (Due) lactated ringers infusion at 20 mL/hr, Intravenous, PRE-OP CONTINUOUS, Starting on Fri12/05/20 at 0600, Until Fri12/05/20 at 1242, Pre-op 0621 ($ New Bag/Syri nge - Provider: Taniya Buenrostro RN) PRN Medication Order 12/03/2020 12/04/2020 12/05/2020 bupivacaine 0.25% - EPINEPHrine 1:200,000 (PF) injection (CANCELED) PRN, Starting on Fri12/05/20 at 0814, Until Fri12/05/20 at 0907, Intra-op 0814 ($ Given - Prov ider: Cole Ku MD - Comment: 30ml given to field mixed with 1% lidocaine with epi) fentaNYL (PF) (Sublimaze) injection 25 mcg 25 mcg, Intravenous, EVERY 10 MIN PRN, Mild Pain, 4 doses, Starting on Fri12/05/20 at 0910, Until Fri12/05/20 at 1242, Maximum total of 4 doses. If patient reaches max total dose, please consult anesthesiologist prior to further administration of pain meds. Hold pain meds if there are signs of hypoventilation., PACU fentaNYL (PF) (Sublimaze) injection 50 mcg 50 mcg, Intravenous, EVERY 10 MIN PRN, Moderate Pain, 4 doses, Starting on Fri12/05/20 at 0918, Until Fri12/05/20 at 1242, Maximum total of 4 doses. If patient reaches max total dose, please consult anesthesiologist prior to further administration of pain meds. Hold pain meds if there are signs of hypoventilation., PACU 09 ($ Given - Prov ider: Lori Escamilla RN)0920 ($ Given - Provider: Lori Escamilla RN) HYDROmorphone (Dilaudid) injection 0.5 mg 0.5 mg, Intravenous, EVERY 10 MIN PRN, Severe Pain, 4 doses, Starting on Fri12/05/20 at 0918, Until Fri12/05/20 at 1242, Maximum total of 4 doses If patient reaches max total dose, please consult anesthesiologist prior to further administration of pain meds. Hold pain meds if there are signs of hypoventilation., PACU 0945 ($ Given - Prov ider: Lori Escamilla RN) lidocaine 1% (Xylocaine-MPF) - EPINEPHrine 1:100,000 injection (CANCELED) PRN, Starting on Fri12/05/20 at 0814, Until Fri12/05/20 at 0907, Intra-op 0814 ($ Given - Prov ider: Cole Ku MD - Comment: 30ml given to field mixed with 0.25% bupivacaine with epi) ondansetron (Zofran) injection 4 mg 4 mg, Intravenous, ONCE PRN, Nausea/Vomiting, 1 dose, Starting on Fri12/05/20 at 0910, Until Fri12/05/20 at 1242, First choice, PACU oxyCODONE (immediate release) (Roxicodone) tablet 10 mg(Linked Group 1) 10 mg, Oral, EVERY 4 HOURS PRN, Severe Pain, Starting on Fri12/05/20 at 0907, Until Fri12/05/20 at 1242 0940 (See Alternativ e - Provider: Lori Escamilla RN) oxyCODONE (immediate release) (Roxicodone) tablet 5 mg(Linked Group 1) 5 mg, Oral, EVERY 4 HOURS PRN, Moderate Pain, Starting on Fri12/05/20 at 0907, Until Fri12/05/20 at 1242 0940 ($ Given - Prov ider: Lori Escamilla RN) prochlorperazine (Compazine) injection 10 mg (COMPLETED) 10 mg, Intravenous, ONCE PRN, Nausea/Vomiting, 1 dose, Starting on Fri12/05/20 at 0910, Until Fri12/05/20 at 1010, Second choice, use if first choice was ineffective., PACU 1010 ($ Given - Prov ider: Lori Escamilla RN) Linked Groups Order Group 1: oxyCODONE (immediate release) (Roxicodone) tablet 5 mgJump to med 5 mg, Oral, EVERY 4 HOURS PRN, Moderate Pain, Starting on Fri12/05/20 at 0907, Until Fri12/05/20 at 1242 Or oxyCODONE (immediate release) (Roxicodone) tablet 10 mgJump to med 10 mg, Oral, EVERY 4 HOURS PRN, Severe Pain, Starting on Fri12/05/20 at 0907, Until Fri12/05/20 at 1242 documented in this encounter Care Teams Battery Stacker Relationship Specialty Start Date End Date Asher Garrison MD [address] [place] [phone] PCP - General 08/25/18 05/02/21 Cole Ku MD [address] [place] [address] General Surgery 11/10/20 documented as of this encounter
--- OUTSIDE RECORDS SUMMARY | 2024-04-25 14:05 | XMS_ITS | Encounter Summary ---
Author Organization [facility] Address [address] [facility] [place] [address] Care Team Providers Care Tabulating Machine Mechanic Name Role Phone Asher Garrison MD Primary Care Provider [phone] Reason for Visit * Auth/Cert Specialty Diagnoses / Procedures Referred By Americo peters Referred To Contact Diagnoses Constipation, unspecified constipation type Constipation, unspecified constipation type [K59.00] Procedures CT COLONOSCOPY,DIAGNOSTIC CT COLONOSCOPY,BIOPSY COLONOSCOPY SCREEN Referral ID Status Reason Start Date Expiration Date Visits Re quested Visits Authorized [id number] 1 1 Encounter Details Date Type Department Care Team (Latest Contact Info) Description 09/18/2020 10:06 AM CDT - 09/18/2020 1:28 PM CDT Hospital Encounter [facility] [address] [place] [phone] Joseph Pathak MD [address] [place] [phone] Surgery General Discharge Disposition: Home or Self [...] Sign Reading Time Taken Comments Blood Pressure 156/76 09/18/2020 1:15 PM CDT Pulse 57 09/18/2020 1:15 PM CDT Temperature 36.5 ??C (97.7 ??F) 09/18/2020 10:25 AM C DT Respiratory Rate 18 09/18/2020 1:15 PM CDT Oxygen Saturation 100% 09/18/2020 1:15 PM CDT Inhaled Oxygen Concentration - - Weight 84.4 kg (186 lb) 09/18/2020 10:25 AM CDT Height 170.2 cm (5' 7 ) 09/18/2020 10:25 AM CDT Body Mass Index 29.13 09/18/2020 10:25 AM CDT documented in this encounter Discharge Instructions * Discharge Instructions* Alicia Juarez RN - 09/18/2020 1:03 PM CDT Images from the original note were not included. Patient Education Colonoscopy WHAT YOU NEED TO KNOW: A [...] a small amount of bleeding. DISCHARGE INSTRUCTIONS: Call your doctor if: ?? You have a large amount of bright red blood in your bowel movements. ?? Your abdomen is hard and firm and you have severe pain. ?? You have sudden trouble breathing. ?? You develop a rash or hives. ?? You have a fever within 24 hours of your procedure. ?? You have not had a bowel movement for 3 days after your procedure. ?? You have questions or concerns about your condition or care. After your colonoscopy: ?? Do not lift, strain, or run for 3 days. ?? Rest as much as possible. You have been given medicine to relax you. Do not drive or make important decisions for at least 24 hours. Return to your normal activity as directed. ?? Relieve gas and discomfort from bloating by lying on your left side with a heating pad on your abdomen. You may need to take short walks to help the gas move out. Eat small meals until bloating isrelieved. If you had polyps removed: For 7 days after your procedure: ?? Do not take aspirin. ?? Do not go on long car rides. Help prevent constipation: ?? Eat a variety of healthy foods. Healthy foods include fruit, vegetables, whole-grain breads, low-fat dairy products, beans, lean meat, and fish. Ask if you need to be on a special diet. Your healthcare provider may recommend that you eat high-fiber foods such as cooked beans. Fiber helps you have regular bowel movements. ?? Drink liquids as directed. Adults should drink between 9 and 13 eight-ounce cups of liquid everyday. Ask what amount is best for you. For most people, good liquids to drink are water, juice, and milk. ?? Exercise as directed. Talk to your healthcare provider about the best exercise plan for you. Exercise can help prevent constipation, decrease your blood pressure and improve your health. Follow up with your healthcare provider as directed: Write down your questions so you remember to ask them during your visits. ?? Copyright [employer] 2020 Information is for End User's use only and may not be sold, redistributed or otherwise used for commercial purposes. All illustrations and images included in CareNotes?? are the copyrighted property of [employer] or [employer] The above information is an physical science aide only. It is not intended as medical [...] Vitamin D3, cholecalciferol, 50 MCG (1999 UT) tabletIndications:Alcira min D deficiency, unspecified Take 1 tablet by mouth once daily 90 tablet 2 03/23/2019 acetaminophen (TYLENOL) 500 MG tablet Take 2 (two) tablets by mouth every 8 hours as needed for Pain Take Tylenol 1000 mg scheduled every 8 hs for the first 2 days after discharge, then can take it as needed for mild pain. Can alternate tylenol with Oxycodone if needed Maximum allowable Acetaminophen amount = 4 Grams (4000 mg) / 24 hours. 60 tablet 12/05/2020 12/05/2020 acetaminophen (TYLENOL) 500 MG tablet Take 2 (two) tablets by mouth every 8 hours as needed for Pain Take Tylenol 1000 mg scheduled every 8 hs for the first 2 days after discharge, then can take it as needed for mild pain. Can alternate tylenol with Oxycodone if needed Maximum allowable Acetaminophen amount = 4 Grams (4000 mg) / 24 hours. 60 tablet 12/05/2020 12/05/2020 docusate sodium (COLACE) 100 MG capsule Take 1 (one) capsule by mouth once daily Take Colace while taking narcotics to prevent constipation. Hold for diarrhea or loose stools. Ok to discontinue when you stop taking narcotics. 60 capsule 1 12/05/2020 12/05/2020 docusate sodium (COLACE) 100 MG capsule Take 1 (one) capsule by mouth once daily Take Colace while taking narcotics to prevent constipation. Hold for diarrhea or loose stools. Ok to discontinue when you stop taking narcotics. 60 capsule 1 12/05/2020 12/05/2020 meloxicam (MOBIC) 15 MG tabletIndications:Prim priscila osteoarthritis of left knee Take 1 (one) tablet by mouth once daily 90 tablet 1 08/23/2020 02/25/2021 oxyCODONE, immediate release, (ROXICODONE) 5 MG tablet Take 1 (one) tablet by mouth every 6 hours as needed (Severe pain) 25 tablet 12/05/2020 12/05/2020 oxyCODONE, immediate release, (ROXICODONE) 5 MG tablet Take 1 (one) tablet by mouth every 6 hours as needed (Severe pain) 25 tablet 12/05/2020 12/05/2020 polyethylene glycol 3350 (MIRALAX) 17 GM/SCOOP powderIndications:Cons tipation Take 17 (seventeen) g by mouth once daily Reasons: Constipation 238 g 11 08/03/2020 11/27/2020 tamoxifen (NOLVADEX) 20 MG tablet Take 1 tablet by mouth 11/17/2015 04/05/2021 documented as of this encounter H&P Notes * Joseph Pathak MD - 09/18/2020 10:28 AM CDT PRE-PROCEDURE HISTORY & PHYSICAL NOTE (Presedation assessment per Anesthesia Team) 09/18/2020 10:28 AM Patient: Milagros Torres, date of 1965 Procedure(s) planned: Colonoscopy Indication(s): CRCS RE: Marlena Mccoy APRN-ELEMENTARY ELL TEACHER; Asher Garrison MD; Erma Neri MD 55F here for CRCS. [facility] notable for colon polyps in multiple FDRs. History: Past Medical History: Diagnosis Date ??? Arthropathy ??? Breast cancer ??? Depression with anxiety ??? Gallstones ??? Hypertension ??? Malignancy breast left ??? Valvular heart disease heart murmur Past Surgical History: Procedure Laterality Date ??? Breast Lumpectomy Left 09/04/2015 With sentinel node biopsy performed by Dr. Brittni Knight ??? Section 05/1990 ??? Dilation and Curettage Family History Problem Relation Name Age of Onset ??? Cancer - Lung Mother ??? Cancer - Breast Sister Social History Socioeconomic History ??? Marital status: Spouse name: Not on file ??? Number of children: Not on file ??? Years of education: Not on file ??? Highest education level: Not on file Occupational History ??? Not on file Tobacco Use ??? Smoking status: Never Smoker ??? Smokeless tobacco: Never Used Vaping Use ??? Vaping Use: Never assessed Substance and Sexual Activity ??? Alcohol use: Yes Comment: ocassional ??? Drug use: Never ??? Sexual activity: Not on file Other Topics Concern ??? Not on file Social History Narrative ??? Not on file Social Determinants of Health Financial Resource Strain: ??? Difficulty of Paying Living Expenses: Food Insecurity: ??? Worried About Running Out of Food in the Last Year: ??? Ran Out of Food in the Last Year: Transportation Needs: ??? Lack of Transportation (Medical): ??? Lack of Transportation (Non-Medical): Physical Activity: ??? Days of Exercise per Week: ??? Minutes of Exercise per Session: Stress: ??? Feeling of Stress : Social Connections: ??? Frequency of Communication with Friends and Family: ??? Frequency of Social Gatherings with Friends and Family: ??? Attends Congregational Services: ??? Active Member of Clubs or Organizations: ??? Attends Club or Organization Meetings: ??? Marital Status: Intimate Partner Violence: ??? Fear of Current or Ex-Partner: ??? Emotionally Abused: ??? Physically Abused: ??? Sexually Abused: No Known Allergies Review of systems: 02/15 reviewed, negative unless otherwise stated Chest pain: No. Shortness of breath: No. Review of systems otherwise negative. Physical Exam: Temp 97.7 ??F (36.5 ??C) (Oral) Ht 5' 7 (1.702 m) Wt 186 lb (84.4 kg) BMI 29.13 kg/m2 GENERAL: The patient is alert, oriented and in no apparent distress. LUNGS: Breathing comfortably in RA. CVS: Regular heart rate. ABDOMEN: Soft, non-distended. NEURO: At baseline. ASA II Recent Labs Component Name 07/03/20 1019 05/12/20 1028 03/20/20 0921 WBC 7.3 7.3 5.8 HGB 13.3 12.8 12.8 INR - 1.0 - Recent Labs Component Name 07/03/20 1019 MCV 88.9 Recent Labs Component Name 07/03/20 1019 05/12/20 1028 03/20/20 0921 NA 143 139 140 CL 110* 104 105 CO2 25 26 23 BUN 14 17 13 CREATININE 1.0 1.0 1.1 Recent Labs Component Name 07/03/20 1019 05/12/20 1028 03/20/20 0921 AST 25 54* 54* ALT 22 43 38 ALKPHOS 78 78 72 TBILI 0.4 0.5 0.4 ALB 3.9 3.8 3.5 No results for input(s): CRP in the last 20010 hours. Sedation Plan: Monitored Anesthesia Care (MAC) by the anesthesia team. Procedure Plan: Based on the above assessment, we will perform the procedures indicated above. I have discussed the plan, risks, benefits and alternatives with the patient or guardian. When assessment above was not obtained immediately before the procedure, I have reassessed this patient and there are no changes. In addition to the standard procedural informed consent, the specific risks related to COVID-19 were also discussed, including the possibility of an infection being present with a negative test, the risk of shad COVID-19, and the known implications of this infection. See consent form. Joseph Basilio documented in this encounter Plan of Treatment Upcoming Encounters Date Type Department Care Team (Late st Contact Info) Description 06/02/2024 10:30 AM RECORDS TECH Office Visit [facility] - Orthopedic Surgery [address] [place] [phone] Kevin Britton MD [address] [facility] [address] [place] [address] 08/10/2024 1:00 PM CDT Office Visit [facility] - SENIOR WAREHOUSE CLERK [address] [facility] [address] [place] [phone] Daja Mir MD [address] [place] [address] 10/26/2024 1:00 PM CDT Office Visit [facility] - Hematology/Oncology [address] [place] [phone] Elizabeth Garcia MD [address] [facility] [address] [place] [address] 01/17/2025 12:30 PM CDT Procedure visit [facility] - GI [address] [place] [phone] 01/17/2025 1:00 PM CDT Office Visit [facility] - GI [address] [place] [phone] Marlena Mccoy, STAFF TRAINER-ELEMENTARY ELL TEACHER [address] [place] [address] [place] [address] documented as of this encounter Goals Goal Patient Goal Type Associated Problems Recent Progress Patient-Stated? Author Mobility General On track( 021 9:08 AM RECORDS TECH) No Tika Pope, SABRINA Note: Expected end [...] Date/Time Associated Diagnosis Comments PATHOLOGY TISSUE Routine 09/18/2020 12:14 PM CDT Constipation, unspecified constipation type COLONOSCOPY SCREEN 09/18/2020 12:00 PM CDT Constipation, unspecified constipation type Special Needs Joseph Pathak MD McLemore, Shanetta; Saba Hidalgo, SABRINA ?? Hi, please schedule patient for Colonoscopy with me on my General GI Mondays. Patient with chronic constipation, please give extended bowel prep. Thanks! Joseph Greco Date Received Time Aug 03, 2020 ??4:04 PM ENDOSCOPY, COLON, SCREENING Routine 09/18/2020 11:49 AM CDT documented in this encounter Results * PATHOLOGY TISSUE (09/18/2020 12:14 PM CDT) Case Report Surgical Pathology Report ? Case: [id number] ? Authorizing Provider: ??Joseph Pathak, Collected: ? 09/18/2020 12:14 PM ? MD ? Ordering Location: ? [facility] ?Received: ?09/18/2020 01:21 PM ? Pathologist: ? Danay Velasquez MD ? Specimens: ?? A) - Large Intestine, Cecum, cecal polyp x1 ? B) - Large Intestine, Right/Ascending Colon, ascending polyp ? C) - Large Intestine, Left/Descending Colon, descending polyp ? 09/19/2020 11:55 AM [facility] Final Diagnosis Large intestine, cecal polyp x1, biopsy (A): - Tubular adenoma Large intestine, ascending polyp, biopsy (B): - Tubular adenoma Large intestine, descending polyp, biopsy (C): - Tubular adenoma 09/19/2020 11:55 AM [facility] Microscopic Description and Comment Microscopic examination substantiates the final diagnosis. 09/19/2020 11:55 AM [facility] Clinical History The patient is a 55 year old woman who presented for colorectal cancer screening. Operative procedure/findings: Colonoscopy - 2 mm cecal polyp, resected and retrieved; 3 mm ascending colon polyp, resected and retrieved; 6 mm descending colon polyp, resected and retrieved. 09/19/2020 11:55 AM [facility] Gross Description The requisition and specimen(s) are identified with the patient's name, Milagros Torres. Received in formalin, specimen A , is a 0.4 x 0.2 x 0.2 cm medel-white soft tissue, submitted in toto in cassette A1. Received in formalin, specimen B is a 0.4 x 0.2 x 0.2 cm pink-dumont soft tissue, submitted in toto in cassette B1. Received in formalin, specimen C is a 0.5 x 0.4 x 0.3 cm pink-dumont soft tissue, submitted in toto in cassette C1. 09/19/2020 11:55 AM [facility] Disclaimer The performance characteristics of [...] and interpreted by the attending (teaching) pathologist. 09/19/2020 11:55 AM [facility] Embedded Images 09/19/2020 11:55 AM [facility] Biopsy, NOS (Large Intestine, Cecum) 09/18/2020 12:14 PM CDT 09/18/2020 1:21 PM CDT Comment:Pre-op diagnosis: Constipation, unspecified constipation type [K59.00] Biopsy, NOS (Large Intestine, Right/Ascending Colon) 09/18/2020 12:17 PM CDT 09/18/2020 1:21 PM CDT Comment:Pre-op diagnosis: Constipation, unspecified constipation type [K59.00] Biopsy, NOS (Large Intestine, Left/Descending Colon) 09/18/2020 12:30 PM CDT 09/18/2020 1:21 PM CDT Comment:Pre-op diagnosis: Constipation, unspecified constipation type [K59.00] Joseph Basilio MD LAB - PATHOL OGY/CYTOLOGY ORDERABLES Performing Organization Address City/State/[facility] Co de Phone Number [facility] [address] [facility] [place] [address], [facility] [phone] * ENDOSCOPY, COLON, SCREENING (09/18/2020 11:49 AM CDT) Report Endoscopy POC Endoscopy Department Report _ Patient Name: Milagros Torres ?Procedure Date: 09/18/2020 11:49 AM ?Date of : 1965 Classification: Outpatient ?Gender: Female Ethnicity: Not or ? Race: White _ Providers: ?Joseph Basilio MD Referring MD: ? Marlena Mccoy, STAFF TRAINER-ELEMENTARY ELL TEACHER; Asher Garrison, ?; Erma Neri MD Procedure: [...] and oxygen saturations were ?monitored continuously. The -AE699I was ?introduced through the anus and advanced to the ?terminal ileum. The colonoscopy was performed ?without difficulty. The patient tolerated the ?procedure well. The quality of the bowel ?preparation was evaluated using the BBPS ([place] ?Bowel Preparation Scale) with scores of: Right [...] Procedure Code(s): ? --- Professional --- ? 06014, Colonoscopy, flexible; with removal of tumor(s), polyp(s), or ? other lesion(s) by snare technique ? 38604, 59, Colonoscopy, flexible; with biopsy, single or multiple Diagnosis Code(s): ?--- Professional --- ?Z12.11, Encounter for screening for malignant ?neoplasm of colon ?K64.8, Other hemorrhoids ?K63.5, Polyp of colon ?K57.30, Diverticulosis of large intestine without ?perforation or abscess without bleeding CPT copyright 2019 [employer]. All rights reserved. The codes documented in this report are preliminary and upon outpatient coder review may be revised to meet current compliance requirements. Joseph Basilio MD 09/18/2020 12:42:42 PM Note Initiated On: 09/18/2020 11:49 AM Number of Addenda: 0 ? [facility] ? [address] [place] [address] [facility] 09/18/2020 11:4 9 AM CDT Joseph Basilio MD GI PROCEDURE ORDERABLES [facility] documented in this encounter Visit Diagnoses Diagnosis Constipation, unspecified constipation type documented in this encounter Administered Medications Inactive Administered Medications - up to 3 most recent administrations Medication Order MAR Action Action Date Dose Rate Site 0.9% NaCl infusion at 20 mL/hr, Intravenous, CONTINUOUS, Starting on Fri09/18/20 at 1030, Until Fri09/18/20 at 1428, Pre-procedure (GI) $ New Bag/Syringe 09/18/2020 10:55 AM CDT 20 mL/hr 0.9% NaCl injection 3 mL 3 mL, Intracatheter, PRE-PROCEDURE MULTIPLE, Starting on Fri09/18/20 at 1026, Until Fri09/18/20 at 1428, For Saline Lock flushes if one is inserted for Bronchoscopy/Endoscopy procedure., Pre-procedure (GI) documented in this encounter Active and Recently Administered Medications Times are shown in CDT. Scheduled Medication Order 09/16/2020 09/17/2020 09/18/2020 0.9% NaCl injection 3 mL 3 mL, Intracatheter, PRE-PROCEDURE MULTIPLE, Starting on Fri09/18/20 at 1026, Until Fri09/18/20 at 1428, For Saline Lock flushes if one is inserted for Bronchoscopy/Endoscopy procedure., Pre-procedure (GI) Continuous Medication Order 09/16/2020 09/17/2020 09/18/2020 0.9% NaCl infusion at 20 mL/hr, Intravenous, CONTINUOUS, Starting on Fri09/18/20 at 1030, Until Fri09/18/20 at 1428, Pre-procedure (GI) 1055 ($ New Bag/Syri nge - Provider: Alicia Juarez RN) documented in this encounter Care Teams Tabulating Machine Mechanic Relationship Specialty Start Date End Date Asher Garrison MD [address] [place] [phone] PCP - General 08/25/18 05/02/21 documented as of this encounter
--- OUTSIDE RECORDS SUMMARY | 2024-04-25 14:05 | XMS_ITS | Encounter Summary ---
Author Organization [facility] Address [address] [place] [address] Care Team Providers Care Rail Car Maintenance Mechanic Name Role Phone Asher Garrison MD Primary Care Provider [phone] Reason for Visit * Reason Onset Date Comments MEDICATION REFILL 06/16/2020 Encounter Details Date Type Department Care Team (Late st Contact Info) Description 06/16/2020 Refill [facility] Orthopedic Surgery [address] [place], [place] [phone] Kevin Britton MD [address] [phone] MEDICATION REFILL Social History Tobacco Use Types [...] encounter Miscellaneous Notes * Telephone Encounter - Krissy Styles MA - 06/16/2020 12:08 PM FINANCIAL OPERATIONS CLERK Liliane faxed over request for Meloxicam 15 mg tablets. Directions-Take 1 tablet by mouth daily. Last refill 05/20/20 quantity 30. Cc:Basia Cobian Accreditation Coordinator NCIAL OPERATIONS CLERK documented in this encounter Plan of Treatment Upcoming Encounters Date Type Department Care Team (Late st Contact Info) Description 06/02/2024 10:30 AM FINANCIAL OPERATIONS CLERK Office Visit [facility] - Orthopedic Surgery [facility] [place] [phone] Kevin Britton MD [address] [facility] [address] [place] [address] 08/10/2024 1:00 PM CDT Office Visit [facility] - MANAGER KNOWLEDGE [address] [facility] [address] [place] [phone] Daja Mir MD [address] [facility] [place] [address] 10/26/2024 1:00 PM CDT Office Visit [facility] - Hematology/Oncology [address] [place] [phone] Elizabeth Garcia MD [address] [facility] [address] [place] [address] 01/17/2025 12:30 PM CDT Procedure visit [facility] - GI [address] [place] [phone] 01/17/2025 1:00 PM CDT Office Visit [facility] - GI [address] [place] [phone] Marlena Mccoy, BREWING DIRECTOR-AMBULANCE PARAMEDIC [address] [place] [address] [facility] [place] [address] documented as of this encounter Goals Goal Patient Goal Type Associated Problems Recent Progress Patient-Stated? Author Mobility General On track( 021 9:08 AM FINANCIAL OPERATIONS CLERK) No Tika Pope, RN Note: Expected [...] leg documented in this encounter Care Teams Rail Car Maintenance Mechanic Relationship Specialty Start Date End Date Asher Garrison MD [address] [place] [phone] PCP - General 08/25/18 05/02/21 documented as of this encounter
--- OUTSIDE RECORDS SUMMARY | 2024-04-25 14:05 | XMS_ITS | Encounter Summary ---
Author Organization [facility] Address [address] [place] [address] Care Team Providers Care Stranding Supervisor Name Role Phone Asher Garrison MD Primary Care Provider [phone] [phone] Encounter Details Date Type Department Care Team (Late Contact Info) Description 08/03/2020 Orders [place] [facility] [address] [place] [address], [place] [address] Joseph Pathak MD [address] [place] [address] [place] [address] Biliary colic Social History Tobacco Use Types Packs/Day Years [...] Upcoming Encounters Date Type Department Care Team ([facility] Contact Info) Description 06/02/2024 10:30 AM FUR DRESSING SUPERVISOR Office Visit [facility] - Orthopedic Surgery 10[address] [place] [address] Kevin Britton MD [address] [place] [address] 08/10/2024 1:00 PM CDT Office [facility] - COMMISSION CLERK [address] [facility] [address] [place] [address] Daja Mri MD [address] [facility] [place] [address] 10/26/2024 1:00 PM CDT Office Visit [facility] - Hematology/Oncology 365[address] [place] [address] Elizabeth Garcia MD 3662 [facility] 3 [place] [address] 01/17/2025 12:30 PM CDT Procedure [place] [facility] [place] [address] [place] [address], [place] [address] 01/17/2025 1:00 PM CDT Office Visit [facility] - GI [address] [place] [address], [place] [address] Marlena Mccoy, CHILDCARE PROVIDER-ADDICTION SPECIALIST [address] [place] [address] [facility] [place] [address] documented as of this encounter Goals Goal Patient Goal Type Associated Problems Recent Progress Patient-Stated? Author Mobility General On track( 021 9:08 AM FUR DRESSING SUPERVISOR) No Tika Pope, SABRINA Note: Expected [...] of this encounter Visit Diagnoses Diagnosis Biliary colic Calculus of gallbladder without mention of cholecystitis or obstruction documented in this encounter Care Teams Stranding Supervisor Relationship Specialty Start Date End Date Asher Garrison MD [address] [place] [address] PCP - General 08/25/18 05/02/21 documented as of this encounter
--- OUTSIDE RECORDS SUMMARY | 2024-04-25 14:05 | XMS_ITS | Encounter Summary ---
Author Organization [facility] Address [address] [place] [address] Care Team Providers Care Day Porter Name Role Phone Asher Garrison MD Primary Care Provider [phone] [phone] Cole Ku MD Unavailable Willis Veras MD Primary Care Provider Reason for Visit * Reason Onset Date Comments Surgery Scheduling 12/01/2020 Encounter Details Date Type Department Care Team (Late st Contact Info) Description 12/01/2020 Telephone [facility] 3655 [place] [address] Cole Ku MD [address] [facility] 2L DIV OF [facility] [place] [place] [address] Surgery Scheduling Social History Tobacco Use Types [...] st Contact Info) Description 06/02/2024 10:30 AM APPAREL MACHINERY INSTRUCTOR Office Visit [facility] - Orthopedic Surgery 10[address] [place] [address] Kevin Britton MD 1031 [facility] 280 [place] [address] 08/10/2024 1:00 PM CDT Office Visit [facility] - FOUNTAIN SUPERVISOR 1031 [facility] 400 [place] [phone] Daja Mir MD 5707 [facility] [place] [address] 10/26/2024 1:00 PM CDT Office Visit [facility] - Hematology/Oncology 3655 [place] [address] Elizabeth Garcia MD 3665 [facility] 3 [place] [address] 01/17/2025 12:30 PM CDT Procedure visit [facility] - GI [address] [place] [phone] 01/17/2025 1:00 PM CDT Office Visit [facility] - GI 1225 [place] [phone] Marlena Mccoy, TANK HOOP BENDER-SEPTIC TECHNICIAN [address] [place] [address] [facility] [place] [address] documented as of this encounter Goals Goal Patient Goal Type Associated Problems Recent Progress Patient-Stated? Author Mobility General On track( 021 9:08 AM APPAREL MACHINERY INSTRUCTOR) No Tika Pope, SABRINA Note: Expected end [...] on filedocumented in this encounter Care Teams Day Porter Relationship Specialty Start Date End Date Asher Garrison MD [address] [place] [address] PCP - General 08/25/18 05/02/21 Willis Veras MD 6616 [place] [address] PCP - General 05/03/21 Cole Ku MD [address] [address] General Surgery 11/10/20 documented as of this encounter
--- OUTSIDE RECORDS SUMMARY | 2024-04-25 14:05 | XMS_ITS | Encounter Summary ---
Author Organization [facility] Address [address] [facility] [place] [address] Care Team Providers Care Assistant Press Operator Name Role Phone Asher Garrison MD Primary Care Provider [phone] [phone] Encounter Details Date Type Department Care Team (Latest Contact Info) Description 06/28/2020 Travel Social History Tobacco Use Types Packs/Day [...] have Coronavirus / COVID-19? No / Unsure 06/28/2020 8:20 AM SHEEP OR CALF GRADER documented as of this encounter Plan of Treatment Upcoming Encounters Date Type Department Care Team (Late st Contact Info) Description 06/02/2024 10:30 AM SHEEP OR CALF GRADER Office Visit [facility] - Orthopedic Surgery 1031 [place] [address] Kevin Britton MD [address] [address] 08/10/2024 1:00 PM CDT Office Visit [facility] - SURFACE PLATE INSPECTOR [address] [facility] [address] [place] [address] Daja Mir MD 5703 [facility] [place] [address] 10/26/2024 1:00 PM CDT Office Visit [facility] - Hematology/Oncology 3655 [place] [address] Elizabeth Garcia MD 3668 [facility] 3 [place] [address] 01/17/2025 12:30 PM CDT Procedure visit [facility] - GI 1225 [facility], [place] [address] 01/17/2025 1:00 PM CDT Office Visit [facility] - GI 1225 [facility], [place] [address] Marlena Mccoy, JOINT RUNNER-MUMPS DEVELOPER [address] [place] [address] [facility] [place] [address] documented as of this encounter Goals Goal Patient Goal Type Associated Problems Recent Progress Patient-Stated? Author Mobility General On track( 021 9:08 AM SHEEP OR CALF GRADER) No Tika Pope, RN Note: Expected end [...] filedocumented in this encounter Care Teams Assistant Press Operator Relationship Specialty Start Date End Date Asher Garrison MD [address] [place] [address] PCP - General 08/25/18 05/02/21 documented as of this encounter
--- OUTSIDE RECORDS SUMMARY | 2024-04-25 14:05 | XMS_ITS | Encounter Summary ---
Author Organization [facility] Address [address] [place] [address] Care Team Providers Care Staff Radiographer Name Role Phone Asher Garrison MD Primary Care Provider [phone] [phone] Cole Ku MD Unavailable Reason for Visit * Reason Comments Liver Problem nafld Encounter Details Date Type Department Care Team (Late st Contact Info) Description 11/10/2020 9:00 AM CDT Office Visit [facility] - GI [address] [place] [address], [place] [phone] Liborio Shepherd MD [address] [place] [address] 2L [place] [address] Marlena Mccoy, BODY STRAIGHTENER-ELECTRIC TRIPPER MACHINE OPERATOR [address] [place] [address] [address]FL [place] [address] NAFLD (nonalcoholic fatty liver disease) (Primary Dx); Malignant neoplasm of female breast, unspecified estrogen receptor status, unspecified laterality, unspecified site of breast (HCC); Adenomatous polyps; Obesity, unspecified classification, unspecified obesity type, unspecified whether serious comorbidity present Social History Tobacco Use Types Packs/Day Years [...] Reading Time Taken Comments Blood Pressure 156/92 11/10/2020 8:55 AM CDT Pulse 56 11/10/2020 8:55 AM CDT Temperature - - Respiratory Rate 20 11/10/2020 8:55 AM CDT Oxygen Saturation 100% 11/10/2020 8:55 AM CDT Inhaled Oxygen Concentration - - Weight 88.5 kg (195 lb) 11/10/2020 8:55 AM CDT Height - - Body Mass Index 30.54 09/18/2020 10:25 AM CDT documented in this encounter Patient Instructions * Patient Instructions* Marlena Mccoy APRN-CNP - 11/10/2020 9:15 AM CDT 1. Continue working on lifestyle changes 2. Return to clinic in 6 months. If your liver enzymes are elevated in January by Dr. Neri, we can repeat them on same day you return to clinic. documented in this encounter Progress Notes * Marlena Mccoy APRN-CNP - 11/10/2020 8:39 AM CDT Images from the original note were [...] been elevated for at least 1 year. ?? She is obese, weight today is 198lbs, BMI 31. Today she reports intermittent RUQ pain with imaging revealing chololithiasis without acute cholecystitis. She wants cholecystectomy d/t this pain. Chief Complaint Patient presents with ??? Liver Problem nafld Patient Active Problem List: Anxiety Benign essential [...] alot of boxes. 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 She is scheduled to get cholecystectomy in December. She has occasional epigastric pain, contributes to soda. Current Outpatient Medications Medication Sig ??? calcium 600 MG tablet Take 1 tablet by mouth daily with food ??? meloxicam (MOBIC) 15 MG tablet Take 1 (one) tablet by mouth once daily ??? polyethylene glycol 3350 (MIRALAX) 17 GM/SCOOP powder Take 17 (seventeen) g by mouth once dailyReasons: Constipation ??? tamoxifen (NOLVADEX) 20 MG tablet Take 1 tablet by mouth ??? Vitamin D3, cholecalciferol, 50 MCG (2000 UT) tablet Take 1 tablet by mouth once daily No current facility-administered medications for this visit. She describes her current average alcohol consumption as occasional. Maybe a couple drinks per month. ?? cigarette smoker no ?? Family History of Liver disease: no Social History Social History Narrative ??? Not on file Review of systems: Chest pain: none. Shortness of breath: none. Nausea and vomiting: none. Constipation or diarrhea: none. Upper or lower GI bleeding: none. On exam today, she appeared obese, alert and anicteric. I reviewed today's vital signs with the patient. Vitals: 11/10/20 0855 BP: 156/92 Pulse: 56 Resp: 20 SpO2: 100% Weight: 88.5 kg (195 lb) Body mass index is 30.54 kg/m??. Wt Readings from Last 3 Encounters: 11/10/20 88.5 kg (195 lb) 09/18/20 84.4 kg (186 lb) 08/23/20 83 kg (183 lb) . Lungs were clear to auscultation bilaterally. Heart sounds were regular rate and rhythm. There were no murmurs. Abdomen was obese, soft and nontender. Liver edge palpable: no. Spleen palpable: no. Ascites: none. Hernias: none. Pretibial edema: none. Relevant test results: Recent Labs Component Name 07/03/20 1019 05/12/20 1028 03/20/20 0921 TBILI 0.4 0.5 0.4 ALKPHOS 78 78 72 ALT 22 43 38 AST 25 54* 54* ALB 3.9 3.8 3.5 NA 143 139 140 POTASSIUM 4.1 3.9 3.9 CO2 25 26 23 CREATININE 1.0 1.0 1.1 BUN 14 17 13 HGB 13.3 12.8 12.8 WBC 7.3 7.3 5.8 PLTCOUNT 166 182 173 INR - 1.0 - US 03/24/20 IMPRESSION: ?? 1. Diffuse hepatic [...] polyp x1, biopsy (A): - Tubular adenoma ?? Large intestine, ascending polyp, biopsy (B): - ??Tubular adenoma ?? Large intestine, descending polyp, biopsy (C): - ??Tubular adenoma Assessment: 1. NAFLD. enzyme normalization 2. breast cancer 2016, on Tamoxifen 3. obesity, down a few pounds 4. adenomatous polyps Plan: 1. return to clinic in 6 months 2. getting labs by pcp in January. If remain normal, no labs with return to clinic. If abnormal will repeat hepatic function with return to clinic. 3. Specific recommendations were provided regarding diet and exercise including the avoidance of sugar sweetened beverages and dietary trans-fats.She does admit that she is not interested in changingher diet. We discussed the risks of fatty liver advancing without changes. She is aware and verbalized understanding. weight loss encouraged as well. An appointment was scheduled for her to see me in followup in 6 months. Address letter to: Erma Neri MD [address] [facility] Of Hematology [place] [address] Copy to: Asher Garrison MD [address] [facility] [address] Marlena Mccoy, BODY STRAIGHTENER-ELECTRIC TRIPPER MACHINE OPERATOR [facility] Division of Gastroenterology and Hepatology Collaborating physician: Dr. Harjit Liu November 10, 2020 No orders of the defined types were placed in this encounter. Coding Rationale New or est? Established Patient Total time spent on date of encounter: 28 minutes Highest problem complexity: 1 stable chronic illness Data review: Review of result(s): 1 unique source(s) Highest level of risk: Low Suggested code: 33108 \ documented in this encounter Plan of Treatment Upcoming Encounters Date Type Department Care Team (Late st Contact Info) Description 06/02/2024 10:30 AM EVAPORATOR Office Visit [facility] - Orthopedic Surgery 1031 [place] [address] Kevin Britton MD 1031 [facility] 280 [place] [address] 08/10/2024 1:00 PM CDT Office Visit [facility] - SALES REPRESENTATIVE EDUCATION COURSES 1031 [facility] 400 [place] [address] Daja Mir MD 5703 [place] [address] 10/26/2024 1:00 PM CDT Office Visit [facility] - Hematology/Oncology 3655 [place] [address] Elizabeth Garcia MD 3665 [facility] 3 [place] [address] 01/17/2025 12:30 PM CDT Procedure visit [facility] - GI [address] [place] [phone] 01/17/2025 1:00 PM CDT Office Visit [facility] - GI [address] [place] [phone] Marlena Mccoy APRN-DARY [address] [place] [address] documented as of this encounter Goals Goal Patient Goal Type Associated Problems Recent Progress Patient-Stated? Author Mobility General On track( 021 9:08 AM EVAPORATOR) No Tika Pope, RN Note: Expected end [...] unspecified laterality, unspecified site of breast (HCC) Adenomatous polyps Benign neoplasm of unspecified site Obesity, unspecified classification, unspecified obesity type, unspecified whether serious comorbidity present documented in this encounter Care Teams Staff Radiographer Relationship Specialty Start Date End Date Asher Garrison MD 4938 [place] [address] PCP - General 08/25/18 05/02/21 Cole Ku MD [address] [facility] [address] 2L [place] [address] General Surgery 11/10/20 documented as of this encounter
--- OUTSIDE RECORDS SUMMARY | 2024-04-25 14:05 | XMS_ITS | Encounter Summary ---
Author Organization [facility] Address [address] [facility] [place] [address] Care Team Providers Care Paint Roller Covermaker Name Role Phone Asher Garrison MD Primary Care Provider [phone] [phone] Reason for Visit * Radiology Services (Routine) - Closed Specialty Diagnoses / Procedures Referred By Americo peters Referred To Contact Mammography Diagnoses History of breast cancer Procedures MAMMO BILAT SCREENING MAMMO BILAT DIAGNOSTIC Jan Hebert DO [address] [place] [address] [facility] Breast [facility] Op 3650 [place] [address] Referral ID Status Reason Start Date Expiration Date Visits Re quested Visits Authorized [id number] Closed 10/03/2020 10/03/2021 1 1 Encounter Details Date Type Department Care Team (Late st Contact Info) Description 10/19/2020 9:53 AM CDT - 10/19/2020 11:59 PM CDT Hospital Encounter [facility] [address] [place] [address] Erma Neri MD 23 [facility] 220 [place] [address] Discharge Disposition: Home or Self Care Social [...] AM CDT documented as of this encounter Medications at [...] as of this encounter Progress Notes * Jan Hebert DO - 10/19/2020 11:59 PM CDT Spoke to Ms. Maciel this morning about her screening mammogram results. No evidence of malignancy were seen. All questions answered. She'll be seen back in clinic in January. Jan Hebert DO Hematology/Oncology Fellow [facility] [employer] documented in this encounter Plan of Treatment Upcoming Encounters Date Type Department Care Team (Late st Contact Info) Description 06/02/2024 10:30 AM LIGHTING EQUIPMENT OPERATOR Office Visit [facility] - Orthopedic Surgery 1031 [place] [address] [place] [address] [place] [address] 280 [place] [address] 08/10/2024 1:00 PM CDT Office Visit [facility] - IT HELP DESK ANALYST 1031 [facility] [address] [place] [address] Daja Mir MD 5706 [facility] [place] [address] 10/26/2024 1:00 PM CDT Office Visit [facility] - Hematology/Oncology [address] [place] [address] Elizabeth Garcia MD 3668 [facility] 3 [place] [address] 01/17/2025 12:30 PM CDT Procedure visit [facility] [place] [address] [place] [address], [place] [address] 01/17/2025 1:00 PM CDT Office Visit [facility] - GI [address] [place] [address], [place] [address] Marlena Mccoy, LABORATORY WORKER-SPA TECHNICIAN [address] [place] [address] [facility] [place] [address] documented as of this encounter Goals Goal Patient Goal Type Associated Problems Recent Progress Patient-Stated? Author Mobility General On track( 021 9:08 AM LIGHTING EQUIPMENT OPERATOR) No Tika Pope, SABRINA Note: Expected [...] Date/Time Associated Diagnosis Comments MAMMO BILAT SCREENING Routine 10/19/2020 10:41 AM CDT History of breast cancer documented in this encounter Results * MAMMO BILAT SCREENING (10/19/2020 10:41 AM [...] BENIGN. This report was electronically signed by VICENTE SUMNER M.D. ??on 10/19/2020 10:27 AM . [...] from prior. Erma Neri MD MAMMO ORDERABLES documented in this encounter Visit Diagnoses Diagnosis History of breast cancer Personal history of malignant neoplasm of breast documented in this encounter Care Teams Paint Roller Covermaker Relationship Specialty Start Date End Date Asher Garrison MD [address] [place] [address] PCP - General 08/25/18 05/02/21 documented as of this encounter
--- OUTSIDE RECORDS SUMMARY | 2024-04-25 14:05 | XMS_ITS | Encounter Summary ---
Author Organization [facility] Address [address] [facility] [place] [address] Care Team Providers Care Move Coordinator Name Role Phone Asher Garrison MD Primary Care Provider [phone] [phone] Encounter Details Date Type Department Care Team ([facility] Contact Info) Description 04/19/2020 Orders Only [facility] Orthopedic Surgery [address] [place] [address] Zully Caldwell, RN Primary osteoarthritis of left knee Social History Tobacco Use Types Packs/Day Years Used Date Smoking Tobacco: Never Smokeless Tobacco: Never Alcohol Use Standard Drinks/Week Comments Yes 0 (1 standard drink = 0.6 oz pur e alcohol) AUDIT-C Answer Date Recorded Frequency of Alcohol [...] have Coronavirus / COVID-19? No / Unsure 03/24/2020 2:29 PM NURSE STAFF [facility]ITY [facility] documented as of this encounter Plan of Treatment Upcoming Encounters Date Type Department Care Team ([facility] Contact Info) Description 06/02/2024 10:30 AM NURSE STAFF COMMUNITY HEALTH Office Visit [facility] - Orthopedic Surgery [address] [place] [phone] Kevin Britton MD [address] [place] [address] [place] [address] 08/10/2024 1:00 PM CDT Office Visit [facility] - DIRECTOR STYLE 1031 [facility] 400 [place] [address] Daja Mir MD 5708 [facility] [place] [address] 10/26/2024 1:00 PM CDT Office Visit [facility] - Hematology/Oncology 3655 [place] [address] Elizabeth Garcia MD 3668 [facility] 3 [place] [address] 01/17/2025 12:30 PM CDT Procedure visit [facility] [place] [address] [place] [address], [place] [phone] 01/17/2025 1:00 PM CDT Office Visit [facility] - GI [address] [place] [address], [place] [address] Marlena Mccoy, RN ORTHOPAEDIC-TYPEWRITERS FUNCTIONAL TESTER [address] [place] [address] [facility] [place] [address] documented as of this encounter Goals Goal Patient Goal Type Associated Problems Recent Progress Patient-Stated? Author Mobility General On track(05/12/19 21 9:08 AM NURSE STAFF [facility]) Tika Cunha, SABRINA Note: Expected end date: 05/05/2019 The goal is to maintain or improve your mobility at the optimum level for you. Interventions: documented as of this encounter Visit Diagnoses Diagnosis Primary osteoarthritis of left knee Primary localized osteoarthrosis, lower leg documented in this encounter Care Teams Move Coordinator Relationship Specialty Start Date End Date Asher Garrison MD [address] [place] [phone] PCP - General 08/25/18 05/02/21 documented as of this encounter
--- OUTSIDE RECORDS SUMMARY | 2024-04-25 14:05 | XMS_ITS | Encounter Summary ---
Author Organization [facility] Address [address] [address] Care Team Providers Care Email Marketing Manager Name Role Phone Asher Garrison MD Primary Care Provider [phone] Reason for Visit * Auth/Cert Specialty Diagnoses / Procedures Referred By Americo peters Referred To Contact Diagnoses Constipation, unspecified constipation type Constipation, unspecified constipation type [K59.00] Procedures CO COLONOSCOPY,DIAGNOSTIC CO COLONOSCOPY,BIOPSY COLONOSCOPY SCREEN Referral ID Status Reason Start Date Expiration Date Visits Re quested Visits Authorized [id number] 1 1 Encounter Details Date Type Department Care Team (Late st Contact Info) Description 09/18/2020 11:52 AM CDT Anesthesia Event [facility] ENDOSCOPY [address] [place] [phone] Katie Bennett MD [address] [place] [address] [place] [phone] Anesthesia Record Procedure Summary Procedure Name Responsible Anesthesiologist Anesthesia Start Time Anesthesia Stop Time COLONOSCOPY SCREEN---extended prep with Katie Carmne MD 09/18/20 1152 09/18/20 1244 Events Date Time Event Comment 09/18/2020 1115 1152 An Start 1152 Pt In Room 1152 An Start Data 1157 Anes Timeout 1157 Timeout Anesthesia part icipated in timeout at the time documented in the record by nursing. 1158 PT Reassessment 1159 Induction 1159 Anes Ready 1200 Proc Start 1202 Quick Note Patient on 10L aux O2 mask 1234 Proc Stop 1235 An Emergence 1238 an stop data 1239 Pt out of Room 1244 An Stop Meds Name Total lidocaine PF 2% 80 mg propofol 200mg/20mL injection 100 mg propofol 500 mg/50 mL injection 392.46 m g NS (0.9% NaCl) 400 mL * Agents Name Insp. N2O Exp. N2O O2 * Blood No blood administrations on file. Lines, Drains, and Airways Type Details Placement Removal Peripheral IV Date: 09/18/20; Time : 105; Orientation: Right; Placed By: SABRINA Vargas; Tolerance: Well 09/18/20 1054 by Alicia Juarez RN 09/18/20 1928 by beModel, Auto Release documented in this encounter Social [...] as of this encounter Progress Notes * Katie Bennett MD - 09/18/2020 2:42 PM CDT ANESTHESIA POSTOP EVALUATION NOTE Procedure: COLONOSCOPY SCREEN---extended prep with Cheesman (N/A ) Milagros Torres is a 55 year old female Patient Vitals for the past 6 hrs: BP Temp Pulse Resp SpO2 Pain Rating Score #1 Pain Scale/Observation 09/18/20 1025 -- 97.7 ??F (36.5 ??C) -- -- -- -- -- 09/18/20 1042 135/87 -- 62 22 97 % 0 N 09/18/20 1245 132/84 -- 63 12 98 % -- -- 09/18/20 1315 156/76 -- 57 18 100 % -- -- Anesthesia Type: MAC Pre-op Diagnosis Codes: * Constipation, unspecified constipation type [K59.00] Mental Status: awake, alert, neurologic status has returned to preoperative level and sufficiently recovered from acute administration of anesthesia to participate in the evaluation Respiratory Function: natural Cardiac Function: stable Postop Pain: acceptable to the patient Postop Hydration: adequate Postop Nausea: none Assessment: no apparent anesthetic complications, patient tolerated procedure well and no evidence of recall Patient Disposition: Release from Anesthesia Care COMPLICATIONS: No complications documented. * Katie Bennett MD - 09/18/2020 11:05 AM CDT ANESTHESIA PREOPERATIVE EVALUATION NOTE Procedure: COLONOSCOPY SCREEN---extended prep with Cheesman (N/A ) NPO status: Since Midnight (09/18/2020 10:29 AM) Last Solids/Dairy: 1800 (09/17/20) (09/18/2020 10:29 AM) Vitals: Patient Vitals for the past 6 hrs: BP Temp Pulse Resp SpO2 Pain Rating Score #1 09/18/20 1042 135/87 -- 62 22 97 % 0 09/18/20 1025 -- 97.7 ??F (36.5 ??C) -- -- -- -- ANESTHESIA PRE-EVALUATION NOTE History of Present Illness: 55 yo with h/o anxiety/depression not on meds Breast cancer s/p 09/04/2015 Breast lumpectomy (Left) With sentinel node biopsy performed by Dr. Brittni Knight Physical Exam: Orientation X3 Airway/Mallampati Score: II Mouth Opening Distance: 2.5 fingerwidths Neck ROM: full TM Distance: > 3 FB Teeth: dentures/partials upper (partial) Heart: normal - S1 S2 Lungs: clear to ausculation bilaterally Abdomen Exam: obese and distended Review of Systems: History of anesthetic complications: No Malignant Hyperthermia: No GERD: No Poor Exercise Tolerance: No Recent Chest Pain: No Shortness of Breath: No AICD/Pacemaker: No Renal Disease: No Diagnostic Tests: Lab(s) reviewed: Yes (2020). ANESTHESIA PLAN ASA Score: 2 NPO Status: No liquids within 2 hours and Patient instructed to be NPO after midnight Anesthesia Plan: MAC Planned Induction: intravenous Planned Postop Destination: endo Anesthetic plan was discussed with: patient, other - comments (friend) Anesthetic Plan discussion was: Consented The patient's procedural Anesthetic Plan was discussed with the VP CUSTOMER DEVELOPMENT. BMI, Height, Weight Tobacco History Estimated body mass index is 29.13 kg/m?? as calculated from the following: Height as of this encounter: 1.702 m (5' 7 ). Weight as of this encounter: 84.4 kg (186 lb). Social History Tobacco Use Smoking Status Never Smoker Smokeless Tobacco Never Used Alcohol History Drug History Social History Substance and Sexual Activity Alcohol Use Yes Comment: ocassional Social History Substance and Sexual Activity Drug Use Never Outpatient Medications: Inpatient Medications: Outpatient Medications Marked as Taking for the 09/18/20 encounter (Hospital Encounter) Medication Sig Last Dose ??? calcium Take 1 tablet by mouth daily with food 09/17/2020 at Unknown time ??? polyethylene glycol 3350 Take 17 (seventeen) g by mouth once daily Reasons: Constipation 09/17/2020 at Unknown time ??? tamoxifen Take 1 tablet by mouth 09/17/2020 at Unknown time ??? Vitamin D3 (cholecalciferol) Take 1 tablet by mouth once daily 09/17/2020 at Unknown time Current Facility-Administered Medications Medication Dose Last Admin ??? 0.9% NaCl IV New Bag at 09/18/20 1055 ??? 0.9% NaCl 3 mL Allergies: No Known Allergies Relevant Problems No relevant active problems Problem List: Patient Active Problem List Diagnosis Date Noted ??? NAFLD (nonalcoholic fatty liver disease) 05/15/2020 Priority: Not Prioritized ??? Depression 11/17/2015 Priority: Not Prioritized ??? Anxiety 09/19/2015 Priority: Not Prioritized ??? Malignant neoplasm of upper-inner quadrant of left breast in female, estrogen receptor dxoycxuf44/24/2016 Priority: Not Prioritized ??? Benign essential HTN [...] ??? Section 05/1990 ??? Dilation and Curettage Lab Results: Recent Labs Component Name 07/03/20 1019 WBC 7.3 RBC 4.52 HCT 40.2 HGB 13.3 PLTCOUNT 166 MCV 88.9 MCH 29.4 MCHC 33.1 MPV 11.3 Recent Labs Component Name 07/03/20 1019 POTASSIUM 4.1 CALCIUM 8.8 CO2 25 GLUCOSE 86 BUN 14 CREATININE 1.0 No results found for requested labs within last 120 days. Recent Labs Result Component Current Result Alkaline Phosphatase 78 (07/03/2020) ALT 22 (07/03/2020) Anion Gap 12 (07/03/2020) AST 25 (07/03/2020) eGFR 58 (L) (07/03/2020) documented in this encounter Miscellaneous Notes * Anesthesia Transfer of Care - Kait Prieto APRN-VP CUSTOMER DEVELOPMENT - 09/18/2020 12:43 PM CDT ANESTHESIA TRANSFER OF CARE NOTE Today's Date: 09/18/2020 Date of : 1965 Patient: Milagros Torres Procedure(s) with comments: COLONOSCOPY SCREEN---extended prep with Balaji - diverticulosis A- cecal polyp-forcep B- ascending polyp-forcep C- descending polyp-cold snare, clip Surgeon(s): Primary: Joseph Pathak MD Preop Diagnosis: Pre-op Diagnois: * Constipation, unspecified constipation type [K59.00] Pre-op Meds (From admission, onward) Start Stop Status Route Frequency Ordered 09/18/20 1030 0.9% NaCl infusion -- Dispensed IV CONTINUOUS 09/18/20 1026 09/18/20 1142 0.9% NaCl infusion -- Sent IV CONTINUOUS PRN 09/18/20 1145 09/18/20 1026 0.9% NaCl injection 3 mL -- Dispensed IK PRE-PROCEDURE MULTIPLE 09/18/20 1026 09/18/20 1200 lidocaine hcl (PF) (Xylocaine Mpf) 2 % injection -- Sent INFILTRATION PRN 09/18/20 1202 09/18/20 1200 propofol (Diprivan) infusion -- Sent IV CONTINUOUS PRN 09/18/20 1203 09/18/20 1200 propofol (Diprivan) injection -- Sent IV PRN 09/18/20 1202 Post-op Diagnosis: * Constipation, unspecified constipation type [K59.00] . No Known Allergies Vitals: Patient Vitals for the past 3 hrs: BP Temp Pulse Resp SpO2 Pain Rating Score #1 09/18/20 1042 135/87 -- 62 22 97 % 0 09/18/20 1025 -- 97.7 ??F (36.5 ??C) -- -- -- -- Lines, Drains, and Airways Type Details Placement Removal Peripheral IV Date: 09/18/20; Time: 1054; Orientation: Right; Location: Antecubital; Placed By: SABRINA Vargas; Gauge: 22 Gauge ; Locals: None; Tolerance: Well 09/18/20 1054 by Alicia Juarez RN Intraprocedure I/O Totals None Patient Transfer Location: Endo Recovery Transport Airway: spontaneous respirations and supplemental O2 [...] understanding of report from the receiving PACUteam. Kait Prieto APRN-VP CUSTOMER DEVELOPMENT documented in this encounter Plan of Treatment Upcoming Encounters Date Type Department Care Team (Late st Contact Info) Description 06/02/2024 10:30 AM OPERATIONS LEAD Office Visit [facility] - Orthopedic Surgery [address] [place] [phone] Kevin Britton MD [address] [facility] [address] [place] [address] 08/10/2024 1:00 PM CDT Office Visit [facility] - DATABASE PROGRAMMER [address] [facility] [address] [place] [phone] Daja Mir MD [address] [facility] [place] [address] 10/26/2024 1:00 PM CDT Office Visit [facility] - Hematology/Oncology [address] [place] [phone] Elizabeth Garcia MD [address] [facility] [address] [place] [address] 01/17/2025 12:30 PM CDT Procedure visit [facility] - GI [address] [facility], [place] [phone] 01/17/2025 1:00 PM CDT Office [facility] [address] [place] [address], [place] [phone] Marlena Mccoy, MACHINE TOOL BUILDER-APPLIED PSYCHOLOGY TEACHER [address] [place] [address] [address] [place] [address] documented as of this encounter Goals Goal Patient Goal Type Associated Problems Recent Progress Patient-Stated? Author Mobility General On track( 021 9:08 AM OPERATIONS LEAD) No Tika Pope, RN Note: Expected [...] Date Dose Rate Site 0.9% NaCl infusion Intravenous, CONTINUOUS PRN, Starting on Fri09/18/20 at 1142, Until Fri09/18/20 at 1244, Anesthesia Intra-op $ New Bag/Syringe 09/18/2020 11:42 AM CDT lidocaine hcl (PF) (Xylocaine Mpf) 2 % injection Infiltration, PRN, Starting on Fri09/18/20 at 1200, Until Fri09/18/20 at 1244, Anesthesia Intra-op $ Given 09/18/2020 12:00 PM CDT 80 mg propofol (Diprivan) infusion Intravenous, CONTINUOUS PRN, Starting on Fri09/18/20 at 1200, Until Fri09/18/20 at 1244, Anesthesia Intra-op Rate Change 09/18/2020 12:26 PM CDT 125 mcg/kg/min 63.3 mL/hr $ New Bag/Syringe 09/18/2020 12:00 PM CDT 150 mcg/kg/min 7 5.96 mL/hr propofol (Diprivan) injection Intravenous, PRN, Starting on Fri09/18/20 at 1200, Until Fri09/18/20 at 1244, Anesthesia Intra-op $ Given 09/18/2020 12:00 PM CDT 100 mg documented in this encounter Care Teams Email Marketing Manager Relationship Specialty Start Date End Date Asher Garrison MD [address] [place] [phone] PCP - General 08/25/18 05/02/21 documented as of this encounter
--- OUTSIDE RECORDS SUMMARY | 2024-04-25 14:05 | XMS_ITS | Encounter Summary ---
Author Organization [facility] Address [address] [place] [address] Care Team Providers Care Vice President Medical Affairs Name Role Phone Asher Garrison MD Primary Care Provider [phone] Cole Ku MD Unavailable Reason for Visit * Reason Comments Post-Op LAP CHOLECYSTECTOMY Encounter Details Date Type Department Care Team (Late st Contact Info) Description 01/10/2021 12:20 PM CDT Office Visit [facility] General Surgery [address] [place] [address] Cole Ku MD [address] [facility] [address] OF [facility] [place] [phone] Biliary colic (Primary Dx) Social History Tobacco Use Types [...] Sign Reading Time Taken Comments Blood Pressure 151/88 01/10/2021 12:25 PM CDT Pulse 70 01/10/2021 12:25 PM CDT Temperature 36.2 ??C (97.2 ??F) 01/10/2021 12:25 PM C DT Respiratory Rate - - Oxygen Saturation 96% 01/10/2021 12:25 PM CDT Inhaled Oxygen Concentration - - Weight 87.1 kg (192 lb) 01/10/2021 12:25 PM CDT Height 170.2 cm (5' 7 ) 01/10/2021 12:25 PM CDT Body Mass Index 30.07 01/10/2021 12:25 PM CDT documented in this encounter Functional [...] of this encounter Progress Notes * Cole Ku MD - 01/10/2021 1:34 PM CDT Milagros Torres [id number] Milagros Torres is a 55 year old female who presents after laparoscopic cholecystectomy on 12/05/2020.She is doing well. She is tolerating a regular diet, she is having regular, easy bowel movements and her pain is well controlled. She has returned to most of her day-to-day functioning. Objective BP 151/88 Pulse 70 Temp 97.2 ??F (36.2 ??C) (Temporal) Ht 5' 7 (1.702 m) Wt 192 lb (87.1 kg) SpO2 96% BMI 30.07 kg/m2 Current Outpatient Medications Medication Sig Dispense Refill [...] hours. (Patient not taking: Reported on 01/10/2021) 60 tablet 0 ??? calcium 600 MG tablet Take 1 tablet by mouth daily with food 90 tablet 2 ??? docusate sodium (COLACE) 100 MG capsule Take 1 (one) capsule by mouth 2 times daily Take Colacewhile taking narcotics to prevent constipation. Hold for diarrhea or loose stools. Ok to discontinue when you stop taking narcotics. (Patient not taking: Reported on 01/10/2021) 60 capsule 1 ??? meloxicam (MOBIC) 15 MG tablet Take 1 (one) tablet by mouth once daily 90 tablet 1 ??? oxyCODONE, immediate release, (ROXICODONE) 5 MG tablet Take 1 (one) tablet by mouth every 6 hours as needed for Pain (Severe pain) (Patient not taking: Reported on 01/10/2021) 25 tablet 0 ??? tamoxifen (NOLVADEX) 20 MG tablet Take 1 tablet by mouth ??? Vitamin D3, cholecalciferol, 50 MCG (2000 UT) tablet Take 1 tablet by mouth once daily 90 tablet 2 No current facility-administered medications for this visit. Physical Exam General: A&O x 3, nad, comfortable Neuro: grossly normal Heart: RRR, no murmurs rubs or gallops Lungs: CTAB Abdomen: S NT ND. Incisions clean dry and intact Extremities: wwp Assessment/Plan Milagros Torres is doing well after laparoscopic cholecystectomy. Her pathology, which was benign, was reviewed with her. I have encouraged her to increase her activity gradually, but fully, with painin her abdominal wall as the guide. She is in agreement with the plan and all of her questions wereanswered to her satisfaction. She need not follow-up with me, but knows that I am happy to see her any time should she have a problem. Cole Ku MD secondary education professor [facility] 01/10/2021 1:34 PM documented in this encounter Plan of Treatment Upcoming Encounters Date Type Department Care Team (Late st Contact Info) Description 06/02/2024 10:30 AM RADIATION MONITOR Office Visit [facility] - Orthopedic Surgery [address] [place] [phone] Kevin Britton MD [address] [facility] [address] [place] [address] 08/10/2024 1:00 PM CDT Office Visit [facility] - FLIGHT TEACHER [address] [facility] [address] [place] [phone] Daja Mir MD [address] [place] [address] 10/26/2024 1:00 PM CDT Office Visit [facility] - Hematology/Oncology [address] [place] [phone] Elizabeth Garcia MD [address] [facility] [address] [place] [address] 01/17/2025 12:30 PM CDT Procedure visit [facility] - GI [address] [place] [address], [place] [phone] 01/17/2025 1:00 PM CDT Office Visit [facility] - GI [address] [place] [phone] Marlena Mccoy, HAND PASTER-FURNACE MECHANIC HELPER [address] [place] [address] [place] [address] documented as of this encounter Goals Goal Patient Goal Type Associated Problems Recent Progress Patient-Stated? Author Mobility General On track( 021 9:08 AM RADIATION MONITOR) No Tika Pope, SABRINA Note: Expected end [...] obstruction documented in this encounter Care Teams Vice President Medical Affairs Relationship Specialty Start Date End Date Asher Garrison MD [address] [place] [address] PCP - General 08/25/18 05/02/21 Cole Ku MD [address] [address] General Surgery 11/10/20 documented as of this encounter
--- OUTSIDE RECORDS SUMMARY | 2024-04-25 14:05 | XMS_ITS | Encounter Summary ---
Author Organization [facility] [employer] Address [address] [facility] [facility] [place] [address] Care Team Providers Care Postal Support Employee Name Role Phone Asher Garrison MD Primary Care Provider [phone] Reason for Visit * Auth/Cert Specialty Diagnoses / Procedures Referred By Americo peters Referred To Contact Diagnoses Constipation, unspecified constipation type Constipation, unspecified constipation type [K59.00] Procedures VT COLONOSCOPY,DIAGNOSTIC VT COLONOSCOPY,BIOPSY COLONOSCOPY SCREEN Referral ID Status Reason Start Date Expiration Date Visits Re quested Visits Authorized [id number] 1 1 Encounter Details Date Type Department Care Team (Late st Contact Info) Description 09/18/2020 11:30 AM CDT - 09/18/2020 12:00 PM CDT Surgery [facility]COPY [address] [place] [phone] Joseph Pathak MD [address] [place] [phone] COLONOSCOPY SCREEN---extended prep with Balaji Surgery Details Date/Time Status Location OR Service Patient Class Case Class Case Type Trauma Case? 09/18/2020 11:30 AM Posted [facility] Endoscopy ENDO 4 Gastroenterology Surgery Day Care Panel 1 Procedure LRB Anes Op Region Wound Class Comments COLONOSCOPY SCREEN---extended prep with Cheyan N/A MAC NA diverticulosis A- cecal polyp-forcep B- ascending polyp-forcep C- descending polyp-cold snare, clip Surgeon Surgeon Role Service Panel Joseph Pathak MD Primary Gastroenter ology 1 Special Needs Joseph Pathak MD McLemore, Shanetta; Saba Hidalgo RN ?? Hi, please schedule patient for Colonoscopy with me on my General GI Mondays. Patient with chronic constipation, please give extended bowel prep. Thanks! Joseph Received Date Received Time Aug 03, 2020 ??4:04 PM documented in this encounter Social History [...] Sign Reading Time Taken Comments Blood Pressure 135/87 09/18/2020 10:42 AM CDT Pulse 62 09/18/2020 10:42 AM CDT Temperature 36.5 ??C (97.7 ??F) 09/18/2020 10:25 AM C DT Respiratory Rate 22 09/18/2020 10:42 AM CDT Oxygen Saturation 97% 09/18/2020 10:42 AM CDT Inhaled Oxygen Concentration - - [...] ask them during your visits. ?? Copyright [employer] 2020 Information is for End User's use only and may not be sold, redistributed or otherwise used for commercial purposes. All illustrations and images included in CareNotes?? are the copyrighted property of [employer].A.M., Inc. or [employer] The above information is an educational guidance counselor only. It is not intended as medical [...] Procedure(s) planned: Colonoscopy Indication(s): CRCS RE: Marlena Mccoy, CLERICAL INVESTIGATOR-HR ADMINISTRATIVE ASSISTANT; Asher Garrison MD; Erma Neri MD 55F here for CRCS. H notable for colon polyps in multiple FDRs. [...] Gatherings with Friends and Family: ??? Attends Confucianist Services: ??? Active Member of Clubs or [...] results for input(s): CRP in the last 67658 hours. Sedation Plan: Monitored Anesthesia Care (MAC) [...] st Contact Info) Description 06/02/2024 10:30 AM OXIDIZED FINISH PLATER Office Visit [facility] - Orthopedic Surgery [facility] [place] [phone] Kevin Britton MD [address] [facility] [address] [place] [address] 08/10/2024 1:00 PM CDT Office Visit [facility] - MACHINE COMPOSITOR [address] [place] [address] [address] [place] [phone] Daja Mir MD [address] [place] [address] 10/26/2024 1:00 PM CDT Office Visit [facility] - Hematology/Oncology [address] [place] [phone] Elizabeth Garcia MD [address] [facility] [place] [place] [address] [place] [address] 01/17/2025 12:30 PM CDT Procedure visit [facility] [place] [address] [place] [address], [place] [phone] 01/17/2025 1:00 PM CDT Office Visit [facility] - GI [address] [place] [address], [place] [phone] Marlena Mccoy, CLERICAL INVESTIGATOR-HR ADMINISTRATIVE ASSISTANT [address] [place] [address] [facility] [place] [address] documented as of this encounter Goals Goal Patient Goal Type Associated Problems Recent Progress Patient-Stated? Author Mobility General On track( 021 9:08 AM OXIDIZED FINISH PLATER) No Tika Pope, SABRINA Note: Expected end [...] please give extended bowel prep. Thanks! Joseph Received Date Received Time Aug 03, 2020 ??4:04 PM ENDOSCOPY, COLON, SCREENING Routine 09/18/2020 11:49 AM CDT documented in this encounter Results * PATHOLOGY TISSUE (09/18/2020 12:14 PM CDT) Case Report Surgical Pathology Report ? Case: [id number] ? Authorizing Provider: ??Joseph Pathak, Collected: ? 09/18/2020 12:14 PM ? MD ? Ordering Location: ? [facility] ?Received: ?09/18/2020 01:21 PM ? Pathologist: ? Danay Velasquez MD ? Specimens: ?? A) - Large Intestine, Cecum, cecal polyp x1 ? B) - Large Intestine, Right/Ascending Colon, ascending polyp ? C) - Large Intestine, Left/Descending Colon, descending polyp ? 09/19/2020 11:55 AM [facility] Final Diagnosis Large intestine, cecal polyp x1, biopsy (A): - Tubular adenoma Large intestine, ascending polyp, biopsy (B): - Tubular adenoma Large intestine, descending polyp, biopsy (C): - Tubular adenoma 09/19/2020 11:55 AM [facility] Microscopic Description and Comment Microscopic examination substantiates the final diagnosis. 09/19/2020 11:55 AM [facility] Clinical History The patient is a 55 year old woman who presented for colorectal cancer screening. Operative procedure/findings: Colonoscopy - 2 mm cecal polyp, resected and retrieved; 3 mm ascending colon polyp, resected and retrieved; 6 mm descending colon polyp, resected and retrieved. 09/19/2020 11:55 AM [facility] Gross Description The requisition and [...] toto in cassette C1. 09/19/2020 11:55 AM [facility] Disclaimer The performance characteristics of all immunohistochemical and indirect immunofluorescence stains (if any) cited in this report were determined by the Histopathology Laboratory of [facility]. Some of these tests were developed [...] the attending (teaching) pathologist. 09/19/2020 11:55 AM CDT [facility] Embedded Images 09/19/2020 11:55 AM CDT [facility] Biopsy, NOS (Large Intestine, [...] - PATHOL OGY/CYTOLOGY ORDERABLES Performing Organization Address [facility]/State/[facility] Co de Phone Number [facility] [address] [place] [address], [facility] [phone] * ENDOSCOPY, COLON, SCREENING (09/18/2020 11:49 AM CDT) Report Endoscopy POC Endoscopy Department Report _ Patient Name: Milagros Torres ?Procedure Date: 09/18/2020 11:49 AM ?Date of : 1965 Classification: Outpatient ?Gender: Female Ethnicity: Not or ? Race: White _ Providers: ?Joseph Basilio MD Referring : ? Marlena Mccoy, CLERICAL INVESTIGATOR-HR ADMINISTRATIVE ASSISTANT; Asher Garrison, ?; Erma Neri MD Procedure: [...] and oxygen saturations were ?monitored continuously. The -GB727N was ?introduced through the anus and advanced to the ?terminal ileum. The colonoscopy was performed ?without difficulty. The patient tolerated the ?procedure well. The quality of the bowel ?preparation was evaluated using the BBPS (Dixon ?Bowel Preparation Scale) with scores of: Right [...] Procedure Code(s): ? --- Professional --- ? 86657, Colonoscopy, flexible; with removal of tumor(s), polyp(s), or ? other lesion(s) by snare technique ? 50850, 59, Colonoscopy, flexible; with biopsy, single or multiple Diagnosis Code(s): ?--- Professional --- ?Z12.11, Encounter for screening for malignant ?neoplasm of colon ?K64.8, Other hemorrhoids ?K63.5, Polyp of colon ?K57.30, Diverticulosis of large intestine without ?perforation or abscess without bleeding CPT copyright 2019 [employer]. All rights reserved. The codes documented in this report are preliminary and upon filling room operator review may be revised to meet current compliance requirements. Joseph Basilio MD 09/18/2020 12:42:42 PM Note Initiated On: 09/18/2020 11:49 AM Number of Addenda: 0 ? [facility] ? [address] [place], [place] [address] [place] [address] PROVATION 09/18/2020 11:4 9 AM CDT Joseph Basilio MD GI PROCEDURE ORDERABLES [facility] [employer] documented in this encounter Visit Diagnoses Diagnosis Constipation, unspecified constipation type Constipation, unspecified constipation type documented in this [...] RN) documented in this encounter Care Teams Postal Support Employee Relationship Specialty Start Date End Date Asher Garrison MD [address] [place] [address] PCP - General 08/25/18 05/02/21 documented as of this encounter
--- OUTSIDE RECORDS SUMMARY | 2024-04-25 14:05 | XMS_ITS | Encounter Summary ---
Author Organization [facility] Address [address] [facility] [place] [address] Care Team Providers Care Human Resources Officer Name Role Phone Asher Garrison MD Primary Care Provider [phone] Encounter Details Date Type Department Care Team (Late st Contact Info) Description 07/03/2020 10:40 AM CANE BURNER Office Visit [facility] Hematology and Oncology[address] [address] Erma Neri MD [address] [facility] [address] [place] [address] History of breast cancer (Primary Dx); Encounter for monitoring tamoxifen therapy; Essential hypertension; Abnormal LFTs (liver function tests) Social History Tobacco Use Types Packs/Day Years [...] COVID-19? No / Unsure 06/28/2020 8:20 AM CANE BURNER documented as of this encounter Last Filed Vital Signs Vital Sign Reading Time Taken Comments Blood Pressure 148/83 07/03/2020 10:22 AM CANE BURNER Pulse 62 07/03/2020 10:22 AM CANE BURNER Temperature 37 ??C (98.6 ??F) 07/03/2020 10:22 AM CANE BURNER Respiratory Rate 18 07/03/2020 10:22 AM CANE BURNER Oxygen Saturation 97% 07/03/2020 10:22 AM CANE BURNER Inhaled Oxygen Concentration - - Weight 89.1 kg (196 lb 6.4 oz) 07/03/2020 10:22 AM CANE BURNER Height - - Body Mass Index 30.76 05/12/2020 9:06 AM CANE BURNER documented in this encounter Progress Notes * Jan Hebert, DO - 07/03/2020 10:44 AM CST [facility] Hematology/Oncology Clinic Date of Visit: 07/03/2020 Attending Physician: Erma Neri MD PCP: Asher [...] knee arthritis and receives steroid shots q3 monthly. Oncologic History: Noted to have an abnormal screening mammogram in June or July of 2015. Referred to [facility], where a left breast biopsy performed on 07/25/15 showed ER+/PA+/HER/2- invasive ductal carcinoma. US-guided FNA of the axillary lymph node was performed at the same time which was negative for metastatic disease. A left partial mastectomy was performed on 09/04/2015 which showed 1.5 cm, grade 2 IDC (pathologic [id number]) with negative margins. Driscoll lymph node biopsy was negative (0/1). She had a Oncotype DX score of 17. She was premenopausal at the time of diagnosis and started on tamoxifen. Receivedleft accelerated partial breast radiation (3850 cGy) between 10/11-10/20/[address] Thee Larson. She was followed at [facility] by Dr. Kyrie Baltazar where her LFTs were noted to be mildly elevated on a few separate occasions. Since starting tamoxifen, she has not had any periods, but has had a few episodes of spotting. Had a D&C by her fire and explosion investigator after US showed a thickened endometrial stripe. Negative for carcinoma or hyperplasia. Now 09/2019 undergoing D&C again due to vaginal bleeding. ?? Stage I ([id number]) ER+/PA+/HER/2- Left invasive ductal carcinoma -07/2015: Abnormal mammogram 07/25/15: Breast biopsy showed invasive ductal carcinoma. Both ER and PA had a Lauren score 8/8 and HER/2 [...] History: Past Medical History: Diagnosis Date ??? Breast cancer ??? Depression with anxiety ??? Hypertension Past Surgical History: Past Surgical History: Procedure Laterality Date ??? Breast Lumpectomy Left 09/04/2015 With sentinel node biopsy performed by Dr. Brittni Knight ??? Section 05/1990 ??? Dilation and Curettage Social History: Social History Tobacco Use ??? Smoking status: Never Smoker ??? Smokeless tobacco: Never Used Substance Use Topics ??? Alcohol use: Yes Frequency: 2-4 times a month Comment: ocassional Family History: Family History Problem Relation Name Age of Onset ??? Cancer - Lung Mother ??? Cancer - Breast Sister Allergies: No Known Allergies Home Medications: Current Outpatient Medications Medication Sig ??? calcium 600 MG tablet Take 1 tablet by mouth daily with food ??? meloxicam (MOBIC) 15 MG tablet Take 1 (one) tablet by mouth once daily ??? tamoxifen (NOLVADEX) 20 MG tablet Take 1 tablet by mouth ??? Vitamin D3, cholecalciferol, 50 MCG (1999 [...] pain. - Genitourinary: Dysuria, frequency, urgency, hematuria, loss of libido, vaginal dryness, vaginal bleeding, vaginal discharge, - Musculoskeletal: arthralgias, myalgias - Neurological: Numbness, tingling, pain, dizziness, headache - Endocrine: Heat intolerance, cold intolerance - Psychiatric: Depression, psychosis - Integument/Breast: Rash, discoloration, breast lump - Heme/lymphatic: Bruising, bleeding, lymphadenopathy - Allergies: please see Allergies - All others negative Vital Signs and Physical Exam: Vitals: 07/03/20 1022 BP: 148/83 Pulse: 62 Resp: 18 Temp: 98.6 ??F (37 ??C) SpO2: 97% Weight: 89.1 kg (196 lb 6.4 oz) ECO General: Well developed, well nourished, in no apparent distress Head: Atraumatic, normocephalic Eyes: PERRLA, EOMI ENT: Mucous membranes moist, oropharynx clear Cardiovascular: s1 s2, rrr, no murmurs/rubs/gallops Respiratory: CTAB, non-labored respirations, no wheezes, no rales Gastrointestinal: SNTND, bowel sounds positive Extremities: Appropriately warm, no edema, no cyanosis Neurologic: AO x 3, no focal neurologic deficits Skin: normal skin color & turgor Lymph Node Survey: No cervical, clavicular, axillary adenopathy Labs: Recent Labs Component Name 05/12/20 1028 03/20/20 0921 09/13/19 1412 WBC 7.3 5.8 9.8 RBC 4.28 4.29 4.41 HGB 12.8 12.8 13.3 HCT 38.9 39.9 40.2 MCV 90.9 93.0 91.2 MCHC 32.9 32.1 33.1 PLTCOUNT 182 173 162 NEUTPCT 63.6 56.2 63.5 NEUTABS 4.7 3.2 6.2 Recent Labs Component Name 05/12/20 1028 03/20/20 0921 09/13/19 1412 POTASSIUM 3.9 3.9 3.7 CO2 26 23 24 BUN 17 13 14 CREATININE 1.0 1.1 1.1 GLUCOSE 79 84 129* CALCIUM 9.4 9.2 9.4 ALKPHOS 78 72 69 ALT 43 38 39 AST 54* 54* 45* EGFR 58* 52* 52* Radiology: BILATERAL DIAGNOSTIC MAMMOGRAM 10/13/19 IMPRESSION: No evidence of malignancy in either breast. ASSESSMENT: BI-RADS Category 2: Benign finding(s). Pathology: No New pathology Assessment and Recommendations: Milagros Torres is a 54 year old female with a history of stage I IDC, HTN, anxiety who presents today for scheduled follow up. ?? Stage I ([id number]) ER+/PA+/HER/2- Left invasive ductal carcinoma 2016 started Tamoxifen: Discussed risks benefits of transitioning to AI. She would like to continueTamoxifen likely for a 10 year course of treatment. This has been very well tolerated. ?? Tamoxifen monitoring: Side effects discussed include but are not limited to menopausal symptoms including hot flashes, mood changes, depression, fluid retention, weight loss, nausea, arthritis, arthralgias, DVT, PE , uterine cancer , cataracts, loss of BMD. - annual hotel reservation agent visit or if any vaginal bleeding - annual exam exams. - monitor lipids with next visit - repeat cbc, cmp and lipids annually ?? Hx of elevated AST Fatty liver disease Has a Fibroscan scheduled for later this year. No elevation of LFTs today. RTC 6 months Jan Hebert DO Hematology/Oncology Fellow [facility] [employer] BURNER Associated attestation - Erma Neri MD - 07/06/2020 11:40 AM CANE BURNER I have seen and examined the patient with the fellow/resident and I agree with the findings and plan of care as documented by the fellow/resident. RTC 6 mo Erma Neri MD Front Desk Officercnc technician Hematology/Oncology [facility] documented in this encounter Plan of Treatment Upcoming Encounters Date Type Department Care Team (Late st Contact Info) Description 06/02/2024 10:30 AM CANE BURNER Office Visit [facility] - Orthopedic Surgery [address] [place] [phone] Kevin Britton MD [address] [facility] [address] [place] [address] 08/10/2024 1:00 PM CDT Office Visit [facility] - CIRCULAR SAWYER STONE [address] [facility] [address] [place] [phone] Daja Mir MD [address] [place] [address] 10/26/2024 1:00 PM CDT Office Visit [facility] - Hematology/Oncology [address] [place] [phone] Elizabeth Garcia MD [address] [facility] 3 [place] [address] 01/17/2025 12:30 PM CDT Procedure visit [facility] - GI [address] [place] [address], [place] [phone] 01/17/2025 1:00 PM CDT Office Visit [facility] - GI [address] [place] [address], [place] [phone] Marlena Mccoy, BUSINESS DEVELOPMENT RECRUITER-LAUNDRY SORTER [address] [place] [address] [address] [facility] [place] [address] documented as of this encounter Goals Goal Patient Goal Type Associated Problems Recent Progress Patient-Stated? Author Mobility General On track( 021 9:08 AM CANE BURNER) Tika Cunha, RN Note: Expected end date: [...] tamoxifen therapy Encounter for therapeutic drug monitoring Essential hypertension Abnormal LFTs (liver function tests) Other abnormal blood chemistry documented in this encounter Care Teams Human Resources Officer Relationship Specialty Start Date End Date Asher Garrison MD [address] [place] [address] PCP - General 08/25/18 05/02/21 documented as of this encounter
--- OUTSIDE RECORDS SUMMARY | 2024-04-25 14:05 | XMS_ITS | Encounter Summary ---
Author Organization [facility] Address [address] [place] [address] Care Team Providers Care Teacher Citizenship Name Role Phone Asher Garrison MD Primary Care Provider [phone] Reason for Visit * Reason Comments Follow-up Encounter Details Date Type Department Care Team (Latest Contact Info) Description 11/07/2020 10:00 AM CDT Office Visit [facility] - Orthopedics [address] [place] [phone] Kevin Britton MD [address] [phone] Primary osteoarthritis of left knee (Primary Dx) [...] AM CDT documented as of this encounter Progress Notes * Kevin Britton MD - 11/07/2020 10:00 AM CDT Patient returns for repeat left knee injection ?? Physical exam: ??Examination left knee reveals intact skin without signs of infection ?? X-rays: ??None obtained ?? Assessment: ??Left knee osteoarthritis here for left knee injection ?? Plan: ??We will proceed with repeat left knee injection today. ??Please see the procedure note for further details. ??We will see her back as needed documented in this encounter Procedure Notes * Kevin Britton MD - 11/07/2020 10:06 AM CDTAssociated Order(s): PROC INJECTION JOINT (SMALL/INTERMED/MAJOR) Procedure(s): GA DRAIN/INJECT LARGE JOINT/BURSA Pre-Procedure Diagnose(s): Primary osteoarthritis [...] note. Injection performed by: Resident on service Kevin Britton MD 11/07/2020 10:06 AM documented in this encounter Plan of Treatment Upcoming Encounters Date Type Department Care Team (Late st Contact Info) Description 06/02/2024 10:30 AM RADIOTELEGRAPH OPERATOR SERVICER Office Visit [facility] - Orthopedic Surgery [address] [place] [phone] Kevin Britton MD [address] [facility] [address] [place] [address] 08/10/2024 1:00 PM CDT Office Visit [facility] - CLAIMS VICE PRESIDENT [address] [facility] [address] [place] [phone] Daja Mir MD [address] [place] [address] 10/26/2024 1:00 PM CDT Office Visit [facility] - Hematology/Oncology [address] [place] [phone] Elizabeth Garcia MD [address] [facility] 3 [place] [address] 01/17/2025 12:30 PM CDT Procedure visit [facility] [place] [address] [place] [phone] 01/17/2025 1:00 PM CDT Office Visit [facility] - GI [address] [place] [phone] Marlena Mccoy, BLADDER CHANGER-HOUSE STEWARD/STEWARDESS [address] [place] [address] [facility] [place] [place] [address] documented as of this encounter Goals Goal Patient Goal Type Associated Problems Recent Progress Patient-Stated? Author Mobility General On track( 021 9:08 AM RADIOTELEGRAPH OPERATOR SERVICER) Tika Cunha RN Note: Expected end date: 05/05/2019 The [...] Procedure Name Priority Date/Time Associated Diagnosis Comments GA DRAIN/INJECT LARGE JOINT/BURSA Routine 11/07/2020 10:06 AM CDT Primary osteoarthritis of left knee documented in this encounter Results * GA DRAIN/INJECT LARGE JOINT/BURSA (11/07/2020 10:06 AM CDT) [...] 6 mL, Infiltration, ONCE, 1 dose, On Fri11/07/20 at 1015 $ Given 11/07/2020 10:12 AM CDT 6 mL Left Knee triamcinolone acetonide (Kenalog-40) injection 80 mg 80 mg, Intra-articular, ONCE, 1 dose, On Fri11/07/20 at 1015, Shake well before using. $ Given 11/07/2020 10:13 AM CDT 80 mg Left Knee documented in this encounter Care Teams Teacher Citizenship Relationship Specialty Start Date End Date Asher Garrison MD [address] [place] [place] [phone] PCP - General 08/25/18 05/02/21 documented as of this encounter
--- OUTSIDE RECORDS SUMMARY | 2024-04-25 14:05 | XMS_ITS | Encounter Summary ---
Author Organization [facility] Address [address] [place] [address] Care Team Providers Care Cardiopulmonary Technician And Eeg Tech Name Role Phone Asher Garrison MD Primary Care Provider + -[phone] Cole Ku MD Unavailable Reason for Visit * Auth/Cert Specialty Diagnoses / Procedures Referred By Americo peters Referred To Contact Diagnoses Biliary colic Biliary colic Procedures LAPAROSCOPIC CHOLECYSTECTOMY Referral ID Status Reason Start Date Expiration Date Visits Re quested Visits Authorized [id number] 1 1 Encounter Details Date Type Department Care Team (Latest Contact Info) Description 12/05/2020 5:22 AM CDT - 12/05/2020 11:41 AM CDT Hospital Encounter [facility] [address] [place] [phone] Cole Ku MD [address] [facility] 2L [place] [phone] Surgery General Discharge Disposition: Home or Self [...] Sign Reading Time Taken Comments Blood Pressure 134/83 12/05/2020 10:20 AM CDT Pulse 67 12/05/2020 10:20 AM CDT Temperature 36.4 ??C (97.6 ??F) 12/05/2020 10:00 AM C DT Respiratory Rate 10 12/05/2020 10:20 AM CDT Oxygen Saturation 98% 12/05/2020 10:20 AM CDT Inhaled Oxygen Concentration - - [...] by mouth Vitamin D3, cholecalciferol, 50 MCG (2000 UT) [...] input(s): CKTOTAL, CKMB, TROPONINI in the last 48166 hours. Iron Studies Recent Labs Component Name 05/12/20 1028 FERRITIN 132 TRANSFERRIN 317 IRON 126 Urine: UA Recent Labs Component Name 11/27/20 0947 07/03/20 1019 05/12/20 1028 03/20/20 0921 EGFR 63* 58* 58* 52* UDS No results for input(s): OPIATESUR, LABAMPH, LABBARB, LABBENZ, COCAINESCRN, METHADONE, LABPHEN, LABCANN in the last 77586 hours. Other Blood Alcohol (BAL): No results for input(s): ETOH in the last 78954 hours. Serum Acetaminophen: No results for input(s): ACETAMINO in the last 16789 hours. Serum Salicylate:No results for input(s): SALICYLATE in the last 00635 hours. Microbiology: Microbiology Results (Displays last 21 [...] is ready to proceed. Cole Ku MD butt presser [facility] documented in this encounter OR Notes [...] performed: Laparoscopic cholecystectomy Surgeon: Cole Ku MD Cemetery Workers Supervisor: Isaías Ansari MD, Beto Kennedy MD Anesthesia: [...] were clipped with a 5 mm clip linen keeper and divided. The peritoneum was incised with [...] gallbladder Isaías Ansari MD 12/05/2020 9:13 AM Cole Lee, was present for the entire case. Cole Ku MD, CARLOS, FACS butt presser [facility] documented in this encounter Plan of Treatment Upcoming Encounters Date Type Department Care Team (Late st Contact Info) Description 06/02/2024 10:30 AM HARDWARE ENGINEERING MANAGER [facility] - Orthopedic Surgery [address] [place] [phone] Kevin Britton MD 1031 [facility] 280 [place] [address] 08/10/2024 1:00 PM CDT Office Visit [facility] - DEPOT MANAGER 1031 [facility] 400 [place] [phone] Daja Mir MD [address] [place] [address] 10/26/2024 1:00 PM CDT Office Visit [facility] - Hematology/Oncology [address] [place] [phone] Elizabeth Garcia MD 3665 [facility] 3 [place] [address] 01/17/2025 12:30 PM CDT Procedure visit [facility] - GI [address] [place] [address], [place] [phone] 01/17/2025 1:00 PM CDT Office Visit [facility] - GI [address] [place] [address], [place] [phone] Marlena Mccoy, ENVIRONMENTAL PROTECTION INSPECTOR-WELL CONTROL INSTRUCTOR [address] [place] [address] [facility] [place] [address] documented as of this encounter Goals Goal Patient Goal Type Associated Problems Recent Progress Patient-Stated? Author Mobility General On track( 021 9:08 AM HARDWARE ENGINEERING MANAGER) Tika uCnha, RN Note: Expected end date: 05/05/2019 The [...] Routine 12/05/2020 8:40 AM CDT Biliary colic WA LAP,CHOLECYSTECTO MY 12/05/2020 8:14 AM CDT Biliary colic Special Needs Pt will schedule PATNO COVID testing needed Auth Approved [id number] 08/29/2020 to 11/28/2020 documented in this encounter Results * PATHOLOGY TISSUE (12/05/2020 8:40 AM CDT) Case Report Surgical Pathology Report ? Case: [id number] ? Authorizing Provider: ??Cole Ku MD ? Collected: ? 12/05/2020 08:40 AM ? Ordering Location: ? [facility] ?Received: ?12/05/2020 11:42 AM ? Pathologist: ? Christiano Oglesby MD ? Specimen: ?Gallbladder, gallbladder ? 12/06/2020 4:09 PM [facility] Final Diagnosis Gallbladder, cholecystectomy (A): - Cholelithiasis - Cholesterolosis - Active chronic cholecystitis 12/06/2020 4:09 PM [facility] Microscopic Description and Comment Microscopic examination substantiates the final diagnosis. 12/06/2020 4:09 PM [facility] Clinical History 55 y/o female with a PMH of NAFLD, 4 year h/x of biliary colic with ultrasound documentation of cholelithiasis, and breast cancer s/p lumpectomy 09/04/2015. Presented with RUQ pain. Laparoscopic cholecystectomy findings of dilated, inflamed GB with pericholecystic fluid. 12/06/2020 4:09 PM [facility] Gross Description The requisition and [...] , 5.0 cm from cystic duct margin). Order Planner sections of the specimen are submitted as follows: A1 printing sales representative mucosa and cystic duct margin, A2 mucosal disruption. 12/06/2020 4:09 PM [facility] Disclaimer The performance characteristics of all immunohistochemical and indirect immunofluorescence stains (if any) cited in this report were determined by the Histopathology Laboratory of [facility]. Some of these tests were [...] attending (teaching) pathologist. 12/06/2020 4:09 PM CDT [facility] Embedded Images 12/06/2020 4:09 PM CDT [facility] Removal ENTIRE GALLBLADDER / Unknown 12/05/2020 8:40 AM CDT 12/05/2020 11:42 AM CDT Comment:Pre-op diagnosis: Biliary colic Cole Ku MD LAB - PATHOLOGY/CYTO LOGY ORDERABLES Performing Organization Address City/State/[facility] Co de Phone Number [facility] [address] [phone] documented in this encounter Visit Diagnoses Diagnosis Biliary colic Calculus of gallbladder without mention of cholecystitis or obstruction documented in this encounter Administered Medications Inactive Administered Medications - up to 3 most recent administrations Medication Order MAR Action Action Date Dose Rate Site 0.9% NaCl infusion at 125 mL/hr, Intravenous, CONTINUOUS, Starting on Fri12/05/20 at 0915, Until e 12/05/20 at 1242, PACU fentaNYL (PF) (Sublimaze) injection 25 mcg 25 mcg, Intravenous, EVERY 10 MIN PRN, Mild Pain, 4 doses, Starting on 12/05/20 at 0910, Until 12/05/20 at 1242, Maximum total of 4 doses. If patient reaches max total dose, please consult anesthesiologist prior to further administration of pain meds. Hold pain meds if there are signs of hypoventilation., PACU fentaNYL (PF) (Sublimaze) injection 50 mcg 50 mcg, Intravenous, EVERY 10 MIN PRN, Moderate Pain, 4 doses, Starting on 12/05/20 at 0918, Until 12/05/20 at 1242, Maximum total of 4 doses. [...] Bag/Syringe 12/05/2020 6:21 AM CDT 20 mL/hr naloxone (Narcan) injection 0.04 mg 0.04 mg, [...] if there are signs of hypoventilation., PACU 0905 ($ Given - Prov ider: Lori Escamilla [...] 1242 documented in this encounter Care Teams Cardiopulmonary Technician And Eeg Tech Relationship Specialty Start Date End Date Asher Garrison MD [address] [place] [address] PCP - General 08/25/18 05/02/21 Cole Ku MD [address] [phone] General Surgery 11/10/20 documented as of this encounter
--- OUTSIDE RECORDS SUMMARY | 2024-04-25 14:05 | XMS_ITS | Encounter Summary ---
Author Organization [facility] Address [address] [place] [address] Care Team Providers Care Deputy District Customs Director Name Role Phone Asher Garrison MD Primary Care Provider [phone] Encounter Details Date Type Department Care Team (Late st Contact Info) Description 07/03/2020 10:16 AM SCUDDING INSPECTOR - 07/03/2020 11:59 PM SCUDDING INSPECTOR Hospital Encounter [facility] [address] [facility] [place] [address] Erma Neri MD 23 [facility] 220 [place] [address] Discharge Disposition: Home or Self [...] COVID-19? No / Unsure 06/28/2020 8:20 AM SCUDDING INSPECTOR documented as of this encounter Medications at [...] tablet by mouth once daily 30 tablet 1 06/20/2020 08/23/2020 tamoxifen (NOLVADEX) 20 MG tablet Take 1 tablet by mouth 11/17/2015 04/05/2021 documented as of this encounter Plan of Treatment Upcoming Encounters Date Type Department Care Team (Late st Contact Info) Description 06/02/2024 10:30 AM SCUDDING INSPECTOR [facility] Visit [facility] - Orthopedic Surgery 10[address] [place] [phone] Kevin Britton MD 1031 [facility] 280 [place] [address] 08/10/2024 1:00 PM CDT Office Visit [facility] 1031 [facility] 400 [place] [phone] Daja Mir MD 6[address] [place] [address] 10/26/2024 1:00 PM CDT Office Visit [facility] - Hematology/Oncology [address] [place] [phone] Elizabeth Garcia MD 1481 [facility] 3 [place] [address] 01/17/2025 12:30 PM CDT Procedure visit [facility] - GI [address] [place] [phone] 01/17/2025 1:00 PM CDT Office Visit [facility] - GI [address] [place] [phone] Marlena Mccoy Pedro, DIRECTOR INTERNAL AUDIT-PREPARING BOX TENDER [address] [place] [address] documented as of this encounter Goals Goal Patient Goal Type Associated Problems Recent Progress Patient-Stated? Author Mobility General On track( 9:08 AM SCUDDING INSPECTOR) No Tika Pope, RN Note: Expected end date: 05/05/2019 The goal is to maintain or improve your mobility at the optimum level for you. Interventions: Medication Management General On track( 9:48 AM CDT) No Saba Bailey, SABRINA [...] Date/Time Associated Diagnosis Comments VITAMIN D 25-HYDROXY Routine 07/03/2020 10:19 AM SCUDDING INSPECTOR Abnormal laboratory test result Vitamin D deficiency, unspecified CBC W AUTO DIFFERENTIAL Routine 07/03/2020 10:19 AM SCUDDING INSPECTOR Abnormal laboratory test result Vitamin D deficiency, unspecified COMPREHENSIVE METABOLIC PANEL Routine 07/03/2020 10:19 AM SCUDDING INSPECTOR Abnormal laboratory test result Vitamin D deficiency, unspecified documented in this encounter Results * VITAMIN D 25-HYDROXY (07/03/2020 10:19 AM SCUDDING INSPECTOR) Vitamin D, 25 Hydroxy 38.0 See comment: ng/mL 07/03/2020 11:26 AM SCUDDING INSPECTOR [facility] Comment: The recommendations for 25-Hydroxy [...] SPECIMEN / Unknown Lab Venipuncture / Unknown 07/03/2020 10:19 AM SCUDDING INSPECTOR 07/03/2020 10:42 AM SCUDDING INSPECTOR Erma Neri MD LAB - CHEMISTRY LD SALDAÑA Performing Organization Address City/[facility] Co de Phone Number [facility] [address] [place] [address], [facility] [phone] * (ABNORMAL) COMPREHENSIVE METABOLIC PANEL (07/03/2020 10:19 AM SCUDDING INSPECTOR) BUN 14 7 - 26 mg/dL 07/03/2020 11:11 AM [facility] Creatinine 1.0 0.6 - 1.2 mg/dL 07/03/2020 11:11 AM [facility] Sodium 143 136 - 145 mmol/L 07/03/2020 11:11 AM [facility] Potassium 4.1 3.5 - 4.5 mmol/L 07/03/2020 11:11 AM [facility] Chloride 110(H) 98 - 107 mmol/L 07/03/2020 11:11 AM [facility] CO2 25 22 - 29 mmol/L 07/03/2020 11:11 AM [facility] Glucose 86 70 - 115 mg/dL 07/03/2020 11:11 AM [facility] Calcium 8.8 8.4 - 10.2 mg/dL 07/03/2020 11:11 AM [facility] Protein Total 7.2 6.0 - 8.3 g/dL 07/03/2020 11:11 AM [facility] Albumin 3.9 3.4 - 5.0 g/dL 07/03/2020 11:11 AM [facility] Bilirubin Total 0.4 0.2 - 1.2 mg/dL 07/03/2020 11:11 AM [facility] Alkaline Phosphatase 78 40 - 150 Units/L 07/03/2020 11:11 AM [facility] ALT 22 0 - 55 Units/L 07/03/2020 11:11 AM [facility] AST 25 5 - 34 Units/L 07/03/2020 11:11 AM [facility] Anion Gap 12 8 - 18 07/03/2020 11:11 AM [facility] BUN/Creatinine Ratio 14 7 - 23 07/03/2020 11:11 AM [facility] Osmolality Calculated 296 270 - 300 mOsm/kg 07/03/2020 11:11 AM [facility] Albumin/Globulin Ratio 1.2 1.1 - 2.3 07/03/2020 11:11 AM [facility] eGFR 58(L) >60 mL/min/1.7 3 m2 07/03/2020 11:11 AM [facility] Blood BLOOD SPECIMEN / Unknown Lab Venipuncture / Unknown 07/03/2020 10:19 AM [facility] [[email or web address]] 07/03/2020 10:42 AM [facility] [[email or web address]] Erma Neri MD LAB - CHEMISTRY ORDE PIOTR [facility] Organization Address City/State/[facility] Co de Phone Number [facility] [address] [place] [address] [phone] * CBC WITH DIFFERENTIAL (07/03/2020 10:19 AM [facility] [[email or web address] WBC 7.3 3.5 - 10.5 10? 3 /uL 07/03/2020 10:48 AM [facility] RBC 4.52 3.90 - 5.00 10? 6 /uL 07/03/2020 10:48 AM [facility] Hemoglobin 13.3 12.0 - 15.5 g/dL 07/03/2020 10:48 AM [facility] Hematocrit 40.2 35.0 - 45.0 % 07/03/2020 10:48 AM [facility] MCV 88.9 81.0 - 97.0 fL 07/03/2020 10:48 AM [facility] MCH 29.4 28.0 - 34.0 pg 07/03/2020 10:48 AM [facility] MCHC 33.1 32.0 - 36.0 g/dL 07/03/2020 10:48 AM [facility] Platelet Count 166 150 - 400 10? 3 /uL 07/03/2020 10:48 AM [facility] RDW-SD 41.4 36.0 - 50.0 fL 07/03/2020 10:48 AM [facility] RDW-CV 12.7 11.2 - 14.8 % 07/03/2020 10:48 AM [facility] MPV 11.3 9.3 - 12.8 fL 07/03/2020 10:48 AM [facility] nRBC Absolute 0.00 0 10? 3 /uL 07/03/2020 10:48 AM [facility] nRBC Auto 0.0 0 /100 WBC 07/03/2020 10:48 AM [facility] Neutrophils % 55.7 35.0 - 70.0 % 07/03/2020 10:48 AM [facility] Lymphocytes % 35.6 19.7 - 55.1 % 07/03/2020 10:48 AM [facility] Monocytes % 6.1 3.0 - 15.0 % 07/03/2020 10:48 AM [facility] Eosinophils % 1.8 0.0 - 6.0 % 07/03/2020 10:48 AM [facility] Basophil % 0.4 0.0 - 1.5 % 07/03/2020 10:48 AM [facility] Neutrophils Absolute 4.0 1.6 - 7.0 10? 3 /uL 07/03/2020 10:48 AM [facility] Lymphocyte Absolute 2.6 0.8 - 2.9 10? 3 /uL 07/03/2020 10:48 AM [facility] Monocytes Absolute 0.44 0.14 - 0.66 10? 3 /uL 07/03/2020 10:48 AM [facility] Eosinophils Absolute 0.13 0.00 - 0.45 10? 3 /uL 07/03/2020 10:48 AM [facility] Basophils Absolute 0.03 0.00 - 0.06 10? 3 /uL 07/03/2020 10:48 AM [facility] Immature Granulocytes % 0.4 0.0 - 1.0 % 07/03/2020 10:48 AM [facility] Blood BLOOD SPECIMEN / Unknown Lab Venipuncture / Unknown 07/03/2020 10:19 AM SCUDDING INSPECTOR 07/03/2020 10:42 AM [facility] [[email or web address]] Erma Neri MD LAB - HEMATOLOGY ORD ERABLES [facility] [address] [place] [address], [facility] [phone] documented in this encounter Visit Diagnoses Diagnosis Abnormal laboratory test result Other abnormal clinical finding Vitamin D deficiency, unspecified documented in this encounter Care Teams Deputy District Customs Director Relationship Specialty Start Date End Date Asher Garrison MD [address] [place] [phone] PCP - General 08/25/18 05/02/21 documented as of this encounter
--- OUTSIDE RECORDS SUMMARY | 2024-04-25 14:05 | XMS_ITS | Encounter Summary ---
Author Organization [facility] Address [address] [place] [address] Care Team Providers Care Film Numberer Name Role Phone Asher Garrison MD Primary Care Provider [phone] Cole Ku MD Unavailable Encounter Details Date Type Department Care Team (Latest Contact Info) Description 11/27/2020 9:27 AM CDT - 11/27/2020 11:59 PM T Hospital Encounter [facility] OP DRAW STATION [address] [place] [address] Cole Ku MD [address] [facility] 2L [facility] [place] [phone] Discharge Disposition: Home or Self Care Social [...] needed (Severe pain) 25 tablet 12/05/2020 12/05/2020 tamoxifen (NOLVADEX) 20 MG tablet Take 1 tablet by mouth 11/17/2015 04/05/2021 documented as of this encounter Plan of Treatment Upcoming Encounters Date Type Department Care Team (Late st Contact Info) Description 06/02/2024 10:30 AM BRICK BAKER Office Visit [facility] - Orthopedic Surgery [address] [place] [phone] Kevin Britton MD 1031 [facility] 280 [place] [address] 08/10/2024 1:00 PM CDT Office Visit [facility] - LIFT OPERATOR 1031 [facility] 400 [place] [phone] Daja Mir MD [address] [place] [address] 10/26/2024 1:00 PM CDT Office Visit [facility] - Hematology/Oncology [address] [place] [phone] Elizabeth Garcia MD 36[address] [facility] 3 [place] [address] 01/17/2025 12:30 PM CDT Procedure visit [facility] - GI [address] [place] [phone] 01/17/2025 1:00 PM CDT Office Visit [facility] - GI [address] [place] [phone] Marlena Mccoy, ACUTE CARE OCCUPATIONAL THERAPIST-TECTONOPHYSICIST [address] [place] [address] [facility] [place] [address] documented as of this encounter Goals Goal Patient Goal Type Associated Problems Recent Progress Patient-Stated? Author Mobility General On track( 021 9:08 AM BRICK BAKER) No Tika Pope, RN Note: Expected end [...] on filedocumented in this encounter Care Teams Film Numberer Relationship Specialty Start Date End Date Asher Garrison MD [address] [place] [phone] PCP - General 08/25/18 05/02/21 Cole Ku MD [address] [address] General Surgery 11/10/20 documented as of this encounter
--- OUTSIDE RECORDS SUMMARY | 2024-04-25 14:05 | XMS_ITS | Encounter Summary ---
Author Organization [facility] Address [address] [facility] [place] [address] Care Team Providers Care Shellfish Dredge Operator Name Role Phone Asher Garrison MD Primary Care Provider [phone] Encounter Details Date Type Department Care Team (Late st Contact Info) Description 05/12/2020 9:54 AM TRANSFORMATION CONSULTANT - 05/12/2020 11:59 PM TRANSFORMATION CONSULTANT Hospital Encounter [facility] DRAW STATION [address] [place] [phone] Marlena Mccoy, SQUEEZER OPERATOR-WALL MIRROR DEPARTMENT SUPERVISOR [address] [place] [address] Discharge Disposition: Home or Self Care Social [...] COVID-19? No / Unsure 05/12/2020 9:50 AM TRANSFORMATION CONSULTANT documented as of this encounter Medications at [...] tabletIndications:Primary osteoarthritis of left knee Take 1 tablet by mouth once daily 30 tablet 1 04/19/2020 06/16/2020 tamoxifen (NOLVADEX) 20 MG tablet Take 1 tablet by mouth 11/17/2015 04/05/2021 documented as of this encounter Plan of Treatment Upcoming Encounters Date Type Department Care Team (Late st Contact Info) Description 06/02/2024 10:30 AM TRANSFORMATION CONSULTANT Office Visit [facility] - Orthopedic Surgery [address] [place] [phone] Kevin Britton MD 1031 [facility] 280 [place] [address] 08/10/2024 1:00 PM CDT Office Visit [facility] - BUSINESS PROCESS COORDINATOR 1031 [facility] 400 [place] [address] Daja Mir MD 5709 [facility] [place], [facility] [place] [address] 10/26/2024 1:00 PM CDT Office Visit [facility] - Hematology/Oncology [address] [place] [phone] Elizabeth Garcia MD 3664 [facility] 3 [place] [address] 01/17/2025 12:30 PM CDT Procedure visit [facility] - GI [address] [place] [address], [facility] [place] [address] 01/17/2025 1:00 PM CDT Office Visit [facility] - GI [address] [facility], [place] [address] Marlena Mccoy, SQUEEZER OPERATOR-WALL MIRROR DEPARTMENT SUPERVISOR 1225 [facility] 3[facility] [place] [address] documented as of this encounter Goals Goal Patient Goal Type Associated Problems Recent Progress Patient-Stated? Author Mobility General On track( 9:08 AM TRANSFORMATION CONSULTANT) No Tika Pope, RN Note: Expected [...] Procedure Name Priority Date/Time Associated Diagnosis Comments PT-INR [facility] Routine 05/12/2020 10:28 AM TRANSFORMATION CONSULTANT NAFLD (nonalcoholic fatty liver disease) Elevated liver enzymes ÁLVARO BLOOD SCREEN W/REFLEX TITER Routine 05/12/2020 10:28 AM TRANSFORMATION CONSULTANT NAFLD (nonalcoholic fatty liver disease) Elevated liver enzymes TRANSFERRIN Routine 05/12/2020 10:28 AM TRANSFORMATION CONSULTANT NAFLD (nonalcoholic fatty liver disease) Elevated liver enzymes CBC W AUTO DIFFERENTIAL Routine 05/12/2020 10:28 AM TRANSFORMATION CONSULTANT NAFLD (nonalcoholic fatty liver disease) Elevated liver enzymes COMPREHENSIVE METABOLIC PANEL Routine 05/12/2020 10:28 AM TRANSFORMATION CONSULTANT NAFLD (nonalcoholic fatty liver disease) Elevated liver enzymes IRON BLOOD Routine 05/12/2020 10:28 AM TRANSFORMATION CONSULTANT NAFLD (nonalcoholic fatty liver disease) Elevated liver enzymes HEPATITIS B CORE ANTIBODY TOTAL Routine 05/12/2020 10:28 AM TRANSFORMATION CONSULTANT NAFLD (nonalcoholic fatty liver disease) Elevated liver enzymes GGT Routine 05/12/2020 10:28 AM TRANSFORMATION CONSULTANT NAFLD (nonalcoholic fatty liver disease) Elevated liver enzymes IGG BLOOD Routine 05/12/2020 10:28 AM TRANSFORMATION CONSULTANT NAFLD (nonalcoholic fatty liver disease) Elevated liver enzymes HEPATITIS C ANTIBODY Routine 05/12/2020 10:28 AM TRANSFORMATION CONSULTANT NAFLD (nonalcoholic fatty liver disease) Elevated liver enzymes FERRITIN Routine 05/12/2020 10:28 AM TRANSFORMATION CONSULTANT NAFLD (nonalcoholic fatty liver disease) Elevated liver enzymes documented in this encounter Results * TRANSFERRIN (05/12/2020 10:28 AM [facility]) Transferrin 317 174 - 382 mg/dL 05/12/2020 11:32 AM [facility] Transferrin Saturation % 32 16 - 50 % 05/12/2020 11:32 AM [facility] Blood BLOOD SPECIMEN / Unknown Lab Venipuncture / Unknown 05/12/2020 10:28 AM TRANSFORMATION CONSULTANT 05/12/2020 11:02 AM [facility] Marlena Mccoy SQUEEZER OPERATOR-WALL MIRROR DEPARTMENT SUPERVISOR LAB - CHEMI STRY ORDERABLES Performing Organization Address [facility]/State/[facility] Co de Phone Number [facility] [address] [place] [address], [facility] [phone] * PT-INR [facility] (05/12/2020 10:28 AM [facility]) PT 12.6 12.1 - 14.8 Seconds 05/12/2020 10:52 AM [facility] INR 1.0 See Comment 05/12/2020 10:52 AM [facility] Comment:The suggested therap eutic range for standard coumadin (warfarin) therapy is an INR of 2.0-3.0. For high-risk patients (Mechanical Mitral Valve Prosthesis, etc.), the suggested prophylactic therapeutic range is an INR of 2.5-3.5. Blood BLOOD SPECIMEN / Unknown Lab Venipuncture / Unknown 05/12/2020 10:28 AM TRANSFORMATION CONSULTANT 05/12/2020 10:43 AM TRANSFORMATION CONSULTANT Marlena Mccoy SQUEEZER OPERATOR-WALL MIRROR DEPARTMENT SUPERVISOR LAB - COAGU LATION ORDERABLES Performing Organization Address City/[facility]/ZIP Co de Phone Number [address] [address], [facility] [phone] * IRON BLOOD (05/12/2020 10:28 AM TRANSFORMATION CONSULTANT) Iron 126 40 - 150 mcg/dL 05/12/2020 11:32 AM [facility] Blood BLOOD SPECIMEN / Unknown Lab Venipuncture / Unknown 05/12/2020 10:28 AM TRANSFORMATION CONSULTANT 05/12/2020 11:02 AM TRANSFORMATION CONSULTANT Marlena Mccoy [facility]ER [facility] - CHEMI STRY ORDERABLES Performing Organization Address [facility]/ZIP Co de Phone Number [address] [address], [place] [phone] * IGG BLOOD (05/12/2020 10:28 AM TRANSFORMATION CONSULTANT) IgG 1,474 540-1,822 mg/dL 05/12/2020 11:[address] [facility] Blood BLOOD SPECIMEN / Unknown Lab Venipuncture / Unknown 05/12/2020 10:28 AM TRANSFORMATION CONSULTANT 05/12/2020 11:02 AM TRANSFORMATION CONSULTANT Marlena Mccoy [facility] LAB - CHEMI STRY ORDERABLES Performing Organization Address [facility]/ZIP Co de Phone Number [address] [address], [place] [phone] * HEPATITIS C ANTIBODY (05/12/2020 10:28 AM TRANSFORMATION CONSULTANT) Hepatitis C Antibody Non-react pura Non-reac tive 05/12/2020 11:[address] [facility] Comment:Hepatitis C Antibody screen indicates no serologic evidence of past or current infection with Hepatitis C Virus. Patients with unexplained liver disease who are immunocompromised or suspected of having acute Hepatitis C infection may benefit from Nucleic Acid Test (KRISTIAN) for Hepatitis C Viral RNA to confirm Hepatitis C status. Blood BLOOD SPECIMEN / Unknown Lab Venipuncture / Unknown 05/12/2020 10:28 AM TRANSFORMATION CONSULTANT 05/12/2020 11:02 AM TRANSFORMATION CONSULTANT Marlena Mccoy APRN-WALL MIRROR DEPARTMENT SUPERVISOR LAB - CHEMI STRY ORDERABLES [facility] [address] [place] [address], [place] [phone] * GGT (05/12/2020 10:28 AM TRANSFORMATION CONSULTANT) GGT 54 9 - 64 Units/L 05/12/2020 11:[address] [facility] Blood BLOOD SPECIMEN / Unknown Lab Venipuncture / Unknown 05/12/2020 10:28 AM TRANSFORMATION CONSULTANT 05/12/2020 10:37 AM TRANSFORMATION CONSULTANT Marlena Mccoy APRN-WALL MIRROR DEPARTMENT SUPERVISOR LAB - CHEMI STRY ORDERABLES Performing Organization Address City/[facility]/ZIP Co de Phone Number [address] [address], [place] [phone] * FERRITIN (05/12/2020 10:28 AM TRANSFORMATION CONSULTANT) Ferritin 132 13 - 204 ng/mL 05/12/2020 11:[address] [facility] Blood BLOOD SPECIMEN / Unknown Lab Venipuncture / Unknown 05/12/2020 10:28 AM TRANSFORMATION CONSULTANT 05/12/2020 11:02 AM TRANSFORMATION CONSULTANT Marlena Mccoy SQUEEZER OPERATOR-WALL MIRROR DEPARTMENT SUPERVISOR LAB - CHEMI STRY ORDERABLES Performing Organization Address City/[facility]/ZIP Co de Phone Number [address] [address], [place] [phone] * HEPATITIS B CORE ANTIBODY (05/12/2020 10:28 AM TRANSFORMATION CONSULTANT) Pathologist [facility] HBc Antibody Total Non-reacti ve Non-reacti ve 05/12/2020 11:[address] [facility] Blood BLOOD SPECIMEN / Unknown Lab Venipuncture / Unknown 05/12/2020 10:28 AM TRANSFORMATION CONSULTANT 05/12/2020 11:02 AM TRANSFORMATION CONSULTANT Marlena Mccoy APRN-WALL MIRROR DEPARTMENT SUPERVISOR LAB - CHEMI STRY ORDERABLES Performing Organization Address [facility] Co de Phone Number [facility] [address] [place] [address], [facility] [phone] * ÁLVARO BLOOD SCREEN W/REFLEX TITER (05/12/2020 10:28 AM TRANSFORMATION CONSULTANT) [facility] ÁLVARO IgG None Detected None Detected 05/14/2020 5:14 AM TRANSFORMATION CONSULTANT [employer] ([facility]) Comment: If suspicion of connective tissue disease is strong and ÁLVARO EIA is negative, consider testing for ÁLVARO by IFA ([id number]). INTERPRETIVE INFORMATION: Anti-Nuclear Antibodies (ÁLVARO), IgG by SAJAN Antinuclear Antibodies (ÁLVARO), IgG by SAJAN: ÁLVARO specimens are screened using enzyme-linked immunosorbent assay (SAJAN) methodology. All SAJAN results reported as Detected are further tested by indirect fluorescent assay (IFA) using HEp-2 substrate with an IgG-specific conjugate. The ÁLVARO SAJAN screen is designed to detect antibodies against dsDNA, histones, SS-A (Ro), SS-B (La), Ríos, Ríos/SIX PACK LOADER OPERATOR, Scl-70, Remedios-1, centromeric proteins, other antigens extracted from the HEp-2 cell nucleus. ÁLVARO SAJAN assays have been reported to have lower sensitivities than ÁLVARO IFA for systemic autoimmune rheumatic diseases (SARD). Negative results do not necessarily rule out SARD. Performed By: [facility] [address] [place] [address] [place] Coordinator: Milagros Bueno MD Blood BLOOD SPECIMEN / Unknown Lab Venipuncture / Unknown 05/12/2020 10:28 AM TRANSFORMATION CONSULTANT 05/12/2020 11:02 AM TRANSFORMATION CONSULTANT Marlena ELLIOTTWALL MIRROR DEPARTMENT SUPERVISOR LAB - CHEMI STRY ORDERABLES [facility] ([facility]) [address] [place] [address], [facility] * (ABNORMAL) COMPREHENSIVE METABOLIC PANEL (05/12/2020 10:28 AM [facility]) BUN 17 7 - 26 mg/dL 05/12/2020 11:05 AM [facility] Creatinine 1.0 0.6 - 1.2 mg/dL 05/12/2020 11:05 AM [facility] Sodium 139 136 - 145 mmol/L 05/12/2020 11:05 AM [facility] Potassium 3.9 3.5 - 4.5 mmol/L 05/12/2020 11:05 AM [facility] Chloride 104 98 - 107 mmol/L 05/12/2020 11:05 AM [facility] CO2 26 22 - 29 mmol/L 05/12/2020 11:05 AM [facility] Glucose 79 70 - 115 mg/dL 05/12/2020 11:05 AM [facility] Calcium 9.4 8.4 - 10.2 mg/dL 05/12/2020 11:05 AM [facility] Protein Total 7.4 6.0 - 8.3 g/dL 05/12/2020 11:05 AM [facility] Albumin 3.8 3.4 - 5.0 g/dL 05/12/2020 11:05 AM [facility] Bilirubin Total 0.5 0.2 - 1.2 mg/dL 05/12/2020 11:05 AM [facility] Alkaline Phosphatase 78 40 - 150 Units/L 05/12/2020 11:05 AM [facility] ALT 43 0 - 55 Units/L 05/12/2020 11:05 AM [facility] AST 54(H) 5 - 34 Units/L 05/12/2020 11:05 AM [facility] Anion Gap 13 8 - 18 05/12/2020 11:05 AM [facility] BUN/Creatinine Ratio 17 7 - 23 05/12/2020 11:05 AM [facility] Osmolality Calculated 288 270 - 300 mOsm/kg 05/12/2020 11:05 AM [facility] Albumin/Globulin Ratio 1.1 1.1 - 2.3 05/12/2020 11:05 AM [facility] eGFR 58(L) >60 mL/min/1.7 3 m2 05/12/2020 11:05 AM [facility] Blood BLOOD SPECIMEN / Unknown Lab Venipuncture / Unknown 05/12/2020 10:28 AM TRANSFORMATION CONSULTANT 05/12/2020 10:37 AM [facility] Marlena Mccoy SQUEEZER OPERATOR-WALL MIRROR DEPARTMENT SUPERVISOR LAB - CHEMI STRY ORDERABLES [facility] [address] [place] [address], [facility] [phone] * CBC WITH DIFFERENTIAL (05/12/2020 10:28 AM [facility]) WBC 7.3 3.5 - 10.5 10? 3 /uL 05/12/2020 10:42 AM [facility] RBC 4.28 3.90 - 5.00 10? 6 /uL 05/12/2020 10:42 AM [facility] Hemoglobin 12.8 12.0 - 15.5 g/dL 05/12/2020 10:42 AM [facility] Hematocrit 38.9 35.0 - 45.0 % 05/12/2020 10:42 AM [facility] MCV 90.9 81.0 - 97.0 fL 05/12/2020 10:42 AM [facility] MCH 29.9 28.0 - 34.0 pg 05/12/2020 10:42 AM [facility] MCHC 32.9 32.0 - 36.0 g/dL 05/12/2020 10:42 AM [facility] Platelet Count 182 150 - 400 10? 3 /uL 05/12/2020 10:42 AM [facility] RDW-SD 40.9 36.0 - 50.0 fL 05/12/2020 10:42 AM [facility] RDW-CV 12.4 11.2 - 14.8 % 05/12/2020 10:42 AM [facility] MPV 11.2 9.3 - 12.8 fL 05/12/2020 10:42 AM [facility] nRBC Absolute 0.00 0 10? 3 /uL 05/12/2020 10:42 AM [facility] nRBC Auto 0.0 0 /100 WBC 05/12/2020 10:42 AM [facility] Neutrophils % 63.6 35.0 - 70.0 % 05/12/2020 10:42 AM [facility] Lymphocytes % 28.5 19.7 - 55.1 % 05/12/2020 10:42 AM [facility] Monocytes % 5.9 3.0 - 15.0 % 05/12/2020 10:42 AM [facility] Eosinophils % 1.4 0.0 - 6.0 % 05/12/2020 10:42 AM [facility] Basophil % 0.3 0.0 - 1.5 % 05/12/2020 10:42 AM [facility] Neutrophils Absolute 4.7 1.6 - 7.0 10? 3 /uL 05/12/2020 10:42 AM [facility] Lymphocyte Absolute 2.1 0.8 - 2.9 10? 3 /uL 05/12/2020 10:42 AM [facility] Monocytes Absolute 0.43 0.14 - 0.66 10? 3 /uL 05/12/2020 10:42 AM [facility] Eosinophils Absolute 0.10 0.00 - 0.45 10? 3 /uL 05/12/2020 10:42 AM [facility] Basophils Absolute 0.02 0.00 - 0.06 10? 3 /uL 05/12/2020 10:42 AM [facility] Immature Granulocytes % 0.3 0.0 - 1.0 % 05/12/2020 10:42 AM [facility] Blood BLOOD SPECIMEN / Unknown Lab Venipuncture / Unknown 05/12/2020 10:28 AM TRANSFORMATION CONSULTANT 05/12/2020 10:37 AM [facility] Marlena Mccoy SQUEEZER OPERATOR-WALL MIRROR DEPARTMENT SUPERVISOR LAB - HEMAT OLOGY ORDERABLES Performing Organization Address [facility]/State/ZIP Co de Phone Number [facility] [address] [place] [address], [facility] [phone] documented in this encounter Visit Diagnoses Diagnosis NAFLD (nonalcoholic fatty liver disease) Other chronic nonalcoholic liver disease Elevated liver enzymes Nonspecific elevation of levels of transaminase or lactic acid dehydrogenase (LDH) documented in this encounter Care Teams Shellfish Dredge Operator Relationship Specialty Start Date End Date Asher Garrison MD [address] [place] [address] PCP - General 08/25/18 05/02/21 documented as of this encounter
--- OUTSIDE RECORDS SUMMARY | 2024-04-25 14:05 | XMS_ITS | Encounter Summary ---
Author Organization [facility] Address [address] [place], [place] [address] [address] Care Team Providers Care Powertrain Calibration Engineer Name Role Phone Asher Garrison MD Primary Care Provider [phone] Encounter Details Date Type Department Care Team (Late Contact Info) Description 06/27/2020 Orders Only [facility] [address] [place] [id number] Edna Verde RN Abnormal laboratory test result ; Vitamin D deficiency, unspecified Social History Tobacco Use Types Packs/Day Years [...] (Late Contact Info) Description 06/02/2024 10:30 AM CORONARY CARE UNIT NURSE Office Visit [facility] - Orthopedic Surgery [address] [place] [phone] Kevin Britton MD [address] [address] 08/10/2024 1:00 PM CDT Office Visit [facility] - JUNIOR ESTIMATOR [address] [facility] [address] [place] [phone] Daja Mir MD 57[address] [facility] [place] [address] 10/26/2024 1:00 PM CDT Office Visit [facility] - Hematology/Oncology [address] [place] [phone] Elizabeth Garcia MD [address] [facility] [address] [place] [address] 01/17/2025 12:30 PM CDT Procedure visit [facility] - GI [address] [facility], [place] [phone] 01/17/2025 1:00 PM CDT Office Visit [facility] - GI [address] [facility], [place] [phone] Marlena Mccoy, ELECTRON BEAM PHOTO MASK TECHNICIAN-SPA ATTENDANT [address] [place] [address] [address] [place] [address] documented as of this encounter Goals Goal Patient Goal Type Associated Problems Recent Progress Patient-Stated? Author Mobility General On track( 021 9:08 AM CORONARY CARE UNIT NURSE) No Tika Pope, RN Note: Expected end [...] * VITAMIN D 25-HYDROXY (07/03/2020 10:19 AM [facility]) Pathologist [facility] Vitamin D, 25 Hydroxy 38.0 See comment: ng/mL 07/03/2020 11:26 AM [facility] Comment: The recommendations for 25-Hydroxy Vitamin [...] Lab Venipuncture / Unknown 07/03/2020 10:19 AM [facility] 07/03/2020 10:42 AM [facility] Erma Neri MD LAB - CHEMISTRY LD [facility] Organization Address [facility] de Phone Number [address] [address], [facility] [phone] * (ABNORMAL) COMPREHENSIVE METABOLIC PANEL (07/03/2020 10:19 AM [facility]) [facility] BUN 14 7 - 26 mg/dL 07/03/2020 11:11 AM [facility] Creatinine 1.0 0.6 - 1.2 mg/dL 07/03/2020 11:11 AM [facility] Sodium 143 136 - 145 mmol/L 07/03/2020 11:11 AM [facility] Potassium 4.1 3.5 - 4.5 mmol/L 07/03/2020 11:11 AM [facility] Chloride 110(H) 98 - 107 mmol/L 07/03/2020 11:11 AM [facility] CO2 25 22 - 29 mmol/L 07/03/2020 11:11 AM [facility] Glucose 86 70 - 115 mg/dL 07/03/2020 11:11 AM [facility] Calcium 8.8 8.4 - 10.2 mg/dL 07/03/2020 11:11 AM [facility] Protein Total 7.2 6.0 - 8.3 g/dL 07/03/2020 11:11 AM [facility] Albumin 3.9 3.4 - 5.0 g/dL 07/03/2020 11:11 AM [facility] Bilirubin Total 0.4 0.2 - 1.2 mg/dL 07/03/2020 11:11 AM [facility] Alkaline Phosphatase 78 40 - 150 Units/L 07/03/2020 11:11 AM [facility] ALT 22 0 - 55 Units/L 07/03/2020 11:11 AM [facility] AST 25 5 - 34 Units/L 07/03/2020 11:11 AM [facility] Anion Gap 12 8 - 18 07/03/2020 11:11 AM [facility] BUN/Creatinine Ratio 14 7 - 23 07/03/2020 11:11 AM [facility] Osmolality Calculated 296 270 - 300 mOsm/kg 07/03/2020 11:11 AM [facility] Albumin/Globulin Ratio 1.2 1.1 - 2.3 07/03/2020 11:11 AM [facility] eGFR 58(L) >60 mL/min/1.7 3 m2 07/03/2020 11:11 AM [facility] Blood BLOOD SPECIMEN / Unknown Lab Venipuncture / Unknown 07/03/2020 10:19 AM CORONARY CARE UNIT NURSE 07/03/2020 10:42 AM [facility] Erma Neri MD LAB - CHEMISTRY ORDE [facility] Organization Address City/State/ZIP Co de Phone Number [facility] [address] [place] [address] [phone] * CBC WITH DIFFERENTIAL (07/03/2020 10:19 AM [facility]) [facility] Signature WBC 7.3 3.5 - 10.5 10? 3 /uL 07/03/2020 10:48 AM [facility] RBC 4.52 3.90 - 5.00 10? 6 /uL 07/03/2020 10:48 AM [facility] Hemoglobin 13.3 12.0 - 15.5 g/dL 07/03/2020 10:48 AM [facility] Hematocrit 40.2 35.0 - 45.0 % 07/03/2020 10:48 AM [facility] MCV 88.9 81.0 - 97.0 fL 07/03/2020 10:48 AM [facility] MCH 29.4 28.0 - 34.0 pg 07/03/2020 10:48 AM [facility] MCHC 33.1 32.0 - 36.0 g/dL 07/03/2020 10:48 AM [facility] Platelet Count 166 150 - 400 10? 3 /uL 07/03/2020 10:48 AM [facility] RDW-SD 41.4 36.0 - 50.0 fL 07/03/2020 10:48 AM [facility] RDW-CV 12.7 11.2 - 14.8 % 07/03/2020 10:48 AM [facility] MPV 11.3 9.3 - 12.8 fL 07/03/2020 10:48 AM [facility] nRBC Absolute 0.00 0 10? 3 /uL 07/03/2020 10:48 AM [facility] nRBC Auto 0.0 0 /100 WBC 07/03/2020 10:48 AM [facility] Neutrophils % 55.7 35.0 - 70.0 % 07/03/2020 10:48 AM [facility] Lymphocytes % 35.6 19.7 - 55.1 % 07/03/2020 10:48 AM [facility] Monocytes % 6.1 3.0 - 15.0 % 07/03/2020 10:48 AM [facility] Eosinophils % 1.8 0.0 - 6.0 % 07/03/2020 10:48 AM [facility] Basophil % 0.4 0.0 - 1.5 % 07/03/2020 10:48 AM [facility] Neutrophils Absolute 4.0 1.6 - 7.0 10? 3 /uL 07/03/2020 10:48 AM [facility] Lymphocyte Absolute 2.6 0.8 - 2.9 10? 3 /uL 07/03/2020 10:48 AM [facility] Monocytes Absolute 0.44 0.14 - 0.66 10? 3 /uL 07/03/2020 10:48 AM [facility] Eosinophils Absolute 0.13 0.00 - 0.45 10? 3 /uL 07/03/2020 10:48 AM [facility] Basophils Absolute 0.03 0.00 - 0.06 10? 3 /uL 07/03/2020 10:48 AM [facility] Immature Granulocytes % 0.4 0.0 - 1.0 % 07/03/2020 10:48 AM [facility] Blood BLOOD SPECIMEN / Unknown Lab Venipuncture / Unknown 07/03/2020 10:19 AM CORONARY CARE UNIT NURSE 07/03/2020 10:42 AM [facility] Erma Neri MD LAB - HEMATOLOGY ORD ERABLES Performing Organization Address [facility]/State/[facility] Co de Phone Number [facility] [address] [place] [phone] [place] [address] documented in this encounter Visit Diagnoses Diagnosis Abnormal laboratory test result- Primary Other abnormal clinical finding Vitamin D deficiency, unspecified documented in this encounter Care Teams Powertrain Calibration Engineer Relationship Specialty Start Date End Date Asher Garrison MD [address] [place] [address] PCP - General 08/25/18 05/02/21 documented as of this encounter
--- OUTSIDE RECORDS SUMMARY | 2024-04-25 14:05 | XMS_ITS | Encounter Summary ---
Author Organization [facility] Address [address] [place] [address] Care Team Providers Care Outside Property Agent Name Role Phone Asher Garrison MD Primary Care Provider [phone] Cole Ku MD Unavailable Reason for Visit * Auth/Cert Specialty Diagnoses / Procedures Referred By Americo peters Referred To Contact Diagnoses Biliary colic Biliary colic Procedures LAPAROSCOPIC CHOLECYSTECTOMY Referral ID Status Reason Start Date Expiration Date Visits Re quested Visits Authorized [id number] 1 1 Encounter Details Date Type Department Care Team (Late st Contact Info) Description 12/05/2020 7:33 AM CDT Anesthesia Event [facility] [address] [place] [address] Tyler Cat MD [address] [place] [address] Wanda Lind, ASSISTANT FOOD SERVICE MANAGER-[facility] [address] [place] [address] Anesthesia Record Procedure Summary Procedure Name Responsible Anesthesiologist Anesthesia Start Time Anesthesia Stop Time LAPAROSCOPIC CHOLECYSTECTOMY (Abdomen) Tyler Cat MD 12/05/20 0733 12/05/20 0907 Events Date Time Event Comment 12/05/2020 0733 An Start 0733 Pt In Room 0733 An Start Data 0736 0740 Anes Timeout 0740 PT Reassessment 0743 Induction 0746 An Intubation 0757 Anes Ready 0801 Time Out Anesthesia part icipated in timeout at the time documented in the record by nursing 0814 Proc Start 0854 Proc Stop 0856 An Emergence 0859 Extubation 0901 an stop data 0902 Pt out of Room 0902 ANPTO2 0907 An Stop Meds Name Total midazolam 2 mg/2mL injection 2 mg fentaNYL 100 mcg/2ml injection 200 mcg lidocaine PF 2% 100 mg propofol 200mg/20mL injection 150 mg rocuronium 50 mg/5 mL injection 50 mg phenylephrine 100 mcg/mL syringe 200 mcg dexamethasone 10 mg/ml PF injection 8 mg ondansetron 4mg/2mL injection 4 mg ketorolac 30 mg/mL injection 30 mg sugammadex 200 mg/2mL injection 200 mg cefOXitin 2,000 mg vial 2 g LR (Lactated ringers) 1,000 mL * Agents Name Insp. N2O Exp. Sevoflurane Exp. Desflurane Exp. N2O O2 Air Insp. Sevoflurane Insp. Desflurane N2O * Blood No blood administrations on file. Lines, Drains, and Airways Type Details Placement Removal Peripheral IV Date: 12/05/20; Time : 0610; Orientation: Right; Tolerance: Well 12/05/20 0610 by Taniya Buenrostro RN 12/05/20 174 by Generic, Auto Release ETT Date: 12/05/20; Time : 0746; Placed By: VIRAJ Mane; Vent: easy mask; Induction: Standard IV; Blade Type: Kevyn; Blade Size: 4; Laryngoscopy View: Grade 1 (full cords); Intubation Adjuncts: Stylet; Tube: Endotracheal Tube; Placement: Oral; Tube Size(mm): 7 MM; Depth of Insertion: 22 CM; Attempts: 1; Cuff Infated: Air; Verified By: Direct visualization, Bilateral breath sounds, CO2 Monitor 12/05/20 0746 by Rubin Sexton APRN-CRNA 12/05/20 0859 by Rubin Sexton APRN-CRNA Procedural Site (Incision) 12/05/20; 0836; Abdomen; exofin; 12/05/20; 1742 12/05/20 0836 by Jaz Carrasco RN 12/05/20 174 by Generic, Auto Release documented in this [...] as of this encounter Progress Notes * Tyler Cat MD - 12/05/2020 10:33 AM CDT ANESTHESIA POSTOP EVALUATION NOTE Procedure: LAPAROSCOPIC CHOLECYSTECTOMY (N/A Abdomen) Milagros Torres is a 55 year old female Patient Vitals for the past 6 hrs: BP Temp Pulse Resp SpO2 Pain Rating Score #1 Pain Scale/Observation 12/05/20 0612 165/98 98.1 ??F (36.7 ??C) 65 15 97 % 0 N 12/05/20 0905 137/78 97.2 ??F (36.2 ??C) 89 19 100 % -- B 12/05/20 0910 134/75 -- 81 (!) 7 100 % -- -- 12/05/20 0915 128/75 -- 78 13 100 % -- B 12/05/20 0920 129/78 -- 72 12 100 % 6 N 12/05/20 0925 140/73 -- 67 12 100 % -- -- 12/05/20 0930 136/92 -- 73 (!) 7 100 % -- B 12/05/20 0935 142/85 -- 72 14 99 % -- -- 12/05/20 0940 132/76 -- 65 (!) 7 99 % 6 N 12/05/20 0945 150/90 -- 73 11 100 % 8 N 12/05/20 0950 144/86 -- 58 (!) 6 100 % -- -- 08/03/21 0955 147/81 -- 56 10 95 % -- B 12/05/20 1000 148/81 97.6 ??F (36.4 ??C) 61 14 93 % -- -- 12/05/20 1005 140/77 -- 56 13 (!) 89 % -- B 12/05/20 1010 139/94 -- 75 17 95 % -- -- 12/05/20 1015 137/81 -- 61 (!) 8 99 % -- -- 12/05/20 1020 134/83 -- 67 10 98 % -- -- Anesthesia Type: general ETT Pre-op Diagnosis Codes: * Biliary colic [K80.50] Mental Status: awake and neurologic status has returned to preoperative level Respiratory Function: natural Cardiac Function: stable Postop Pain: adequate Postop Hydration: adequate Postop Nausea: treated/stable Assessment: no apparent anesthetic complications Patient Disposition: Release from Anesthesia Care COMPLICATIONS: No complications documented. * Tyler Cat MD - 11/27/2020 8:45 AM CDT ANESTHESIA PREOPERATIVE EVALUATION NOTE Procedure: LAPAROSCOPIC CHOLECYSTECTOMY with possible open (N/A ) Vitals: Patient Vitals for the past 6 hrs: BP Temp Pulse Resp SpO2 11/27/20 0906 154/94 97.8 ??F (36.6 ??C) 60 18 100 % ANESTHESIA PRE-EVALUATION NOTE History of Present Illness: 55 year old female with 4-year history of gallstones. She is scheduled for laparoscopic cholecystectomy with possible open with Dr. Ku. Medical history is significant for anxiety, depression, HTN (not currently on BP medication), NAFLD, Breast cancer s/p lumpectomy 09/04/2015 No known allergies The patient is a current non-smoker. Physical Exam: Orientation X3 Airway/Mallampati Score: III Mouth Opening Distance: 3 fingerwidths Neck ROM: full TM Distance: > 3 FB Teeth: dentures/partials upper and normal Heart: normal - S1 S2 and murmur (grade 2 murmur LSB) Lungs: clear to ausculation bilaterally Abdomen Exam: obese Review of Systems: History of anesthetic complications: No Malignant Hyperthermia: No GERD: No Poor Exercise Tolerance: No (pt reports she can walk 3 city blocks without CP or SOB at moderate pace) Recent Chest Pain: No Shortness of Breath: No AICD/Pacemaker: No Renal Disease: No Diagnostic Tests: Lab(s) reviewed: Yes (11/27/20 reviewed without significant findings). ANESTHESIA PLAN ASA Score: 2 NPO Status: Patient instructed to be NPO after midnight, No solids since midnight and No liquids within 2 hours Anesthesia Plan: general Planned Induction: intravenous Planned Postop Destination: PACU Anesthetic plan was discussed with: patient Anesthetic Plan discussion was: Consented Use of blood products were discussed with: patient Use of blood product discussion was: Consented The patient's procedural Anesthetic Plan was discussed with the anesthesiologist, attending and INSPECTOR AND HAND PACKAGER. BMI, Height, Weight Tobacco History Estimated body mass index is 30.28 kg/m?? as calculated from the following: Height as of this encounter: 1.702 m (5' 7 ). Weight as of this encounter: 87.7 kg (193 lb 4.8 oz). Social History Tobacco Use Smoking Status Never Smoker Smokeless Tobacco Never Used Alcohol History Drug History Social History Substance and Sexual Activity Alcohol Use Yes Comment: ocassional weekends Social History Substance and Sexual Activity Drug Use Never Outpatient Medications: Inpatient Medications: Outpatient Medications Marked as Taking for the 11/27/20 encounter (Hospital Encounter) with [facility] 1 Medication Sig Last Dose ??? calcium Take 1 tablet by mouth daily with food ??? meloxicam Take 1 (one) tablet by mouth once daily ??? tamoxifen Take 1 tablet by mouth ??? Vitamin D3 (cholecalciferol) Take 1 tablet by mouth once daily No current facility-administered medications for this encounter. Allergies: No Known Allergies Relevant Problems Cardiovascular (+) Benign essential HTN Other (+) NAFLD (nonalcoholic fatty liver disease) Problem List: Hospital Problem List None Non-Hospital Problem List Anxiety Benign essential HTN Depression Malignant neoplasm of upper-inner quadrant of left breast in female, estrogen receptor positive NAFLD (nonalcoholic fatty liver disease) Medical History: Past Medical History: Diagnosis Date [...] Dr. Brittni Knight ??? Section 05/1990 ??? COLONOSCOPY N/A 09/18/2020 N/A; COLONOSCOPY SCREEN---extended prep with Cheesman ??? Dilation and Curettage twice Covid Vaccine: 08/28/20 Yes, 1st Dose Lab Results: Recent Labs Component Name 11/27/20 0947 POTASSIUM 4.0 CALCIUM 9.9 CO2 29 GLUCOSE 83 BUN 13 CREATININE 1.00* No results found for requested labs within last 120 days. Recent Labs Result Component Current Result Alkaline Phosphatase 69 (11/27/2020) ALT 32 (11/27/2020) Anion Gap 12 (11/27/2020) AST 34 (11/27/2020) eGFR by CKD-EPI 63 (L) (11/27/2020) PAT Evaluation summary: I. Perioperative Cardiac Risk Index Stratification based on 2014 ACC/AHA Guidelines Perioperative risk of a Major Adverse Cardiac Event (MACE). Add one point (0-6) for each positive RCRI (Revised Cardiac Risk Index) Is the surgery high-risk? no Intraperitoneal Intrathoracic Major vascular Neurosurgical spine or craniotomy History of ischemic heart disease? no Recent WI with 60 days = very high risk of MACE, requires cardiac consultation History of WI > 60 days History of positive stress test Current chest pain considered due to myocardial ischemia Use of nitrate therapy ECG with pathologic Q waves History of congestive heart failure? no Pulmonary edema, bilateral rales or S3 gallop Paroxysmal nocturnal dyspnea CXR showing pulmonary vascular congestion History of cerebrovascular disease? no Prior TIA or stroke Carotid bruit on exam? no Copy and paste any recent carotid duplex results here Insulin-dependent Diabetes? no Preoperative creatinine > 2 mg/dl? no RCRI correlation with MACE (www.mdcalc.com/ngblrvc-dzugqtu-hmms-eltjk-zsc-wxbwpughd-risk, originally validated by Guillaume Helm. Circulation. 1999;100:3648-1138) 0 Points - 0.4% risk 1 Point - 0.9% risk 2 Points - 6.6% risk 3 or more Points - 11% risk This patient has 0 RCRI and the risk of MACE= 0.4 % If MACE < 1%, no further testing required. Proceed to surgery. Patient is at low risk of MACE. If MACE > 1% Elevated risk. Need to assess the patient's functional capacity. 4 METs = Can walk up a flight of steps or a hill or walk on level ground at 3 mph If > 4 METs. Proceed to surgery. If < 4 METs or unknown functional capacity then discuss with attending, as further workup may beindicated. (Source: 2014 ACC/AHA Guideline on Perioperative Cardiovascular Evaluation and Management of Patients Undergoing Noncardiac Surgery) II. Consults: Cardiology / medicine/ other risk stratification or consults requested: no III. CIEDs (cardiovascular implantable electronic device) Patient does not have any CIEDs IV. Anticoagulants Is patient receiving antiplatelet/ anticoagulant medications. none V. Previous transfusions / blood products If high risk procedure or risk of blood loss > 250 ml, then order: - 1st Type and Screen in PAT AND 2nd Type and Screen for DOS OR - If patient is not seen in PAT then order a T&S for DOS (We will need an additional re-type which blood bank will automatically send to [facility]. [facility] requires a 2nd confirmatory T&S before releasing crossmatched blood) Previous blood transfusion? no - If patient had a previous transfusion and likelihood of surgical blood loss is >250ml or a high risk procedure, then every attempt should be made to obtain a T&S in PAT, otherwise patient should be instructed to arrive early or not scheduled as a first start case. Please call chief steward/stewardess to discuss plan and document here: Patients with previous transfusions may have developed alloantibodies to donor RBC surface antigens, which may cause hemolytic or delayed hemolytic transfusion reactions upon subsequent exposure to donor PRBCs. . Most recent EKG VII. Additional testing needed within 1 month prior to DOS (if possible, else on DOS) - CBC w/o diff if ASA >2 OR expected blood loss >250 OR previously abnormal - BMP is ASA >2 OR taking diuretics, K+ supplements, CASS-I, ARBs OR any RCRI (including high risk procedure) - for patients with DM, refer to PCP or cigar head puncher for BG >200 - CMP (instead of BMP) for patient with chronic liver disease or previously abnormal -PT/ PTT/ INR if recent use of anticoagulants (VKAs, DTIs, fXa-I) OR vascular procedures Additional testing needed on DOS as below: - EPOC blood glucose on DOS - EPOC whole blood K+ for patient with ESRD or poorly controlled K+ - any test above not previously available in PAT Any additional tests ordered by the surgical team: none Summary: Milagros Torres is a 55 year old female presenting for LAPAROSCOPIC CHOLECYSTECTOMY with possible open (N/A ). She has an ASA score of ASA 2 and 0 RCRI, which correlates with a MACE score of 0.4%. She is medically optimized for this procedure. Final evaluation pending evaluation by Quality Worker on DOS. Labs/ tests ordered for DOS: none COVID Vaccine: fully vaccinated Preoperative plan was not discussed w/ PAT attending. To be discussed DOS in ACU. PAT evaluation is complete including review of all pending consults, CIEDs, review of labs ordered in PAT. documented in this encounter Procedure Notes * Rubin Sexton, ASSISTANT FOOD SERVICE MANAGER-INSPECTOR AND HAND PACKAGER - 12/05/2020 8:09 AM CDTAssociated Order(s): ETT Placement Endotracheal Tube Placement: Patient Location: OR. Intubation Event Date/Time: 12/05/2020 7:46 AM Procedure: intubation ([id number]). Procedure Section: Sedation: under general anesthesia. Indications for Airway Management: anesthesia Induction: standard IV Patient Position: sniffing and supine Mask Ventilation: easy. Blade Type: Kevyn Blade Size: 4 Laryngoscopy View: grade 1 (full cords) Intubation Adjuncts: stylet Tube: endotracheal tube Placement: oral Tube Size (MM): 7 Depth of Insertion (CM): 22 Cuff Inflated With: air Number of Attempts: 1. Placement Verified By: direct visualization, bilateral breath sounds and CO2 monitor Tube secured with: adhesive tape. Dentition unchanged? Yes Difficult Airway? No. Procedure Start Time: 12/05/2020 7:46 AM. Staff Section Anesthesia Provider: Rubin Sexton APRN-CRNA, Performed the procedure Additional Comments: DVOI x ! Per emergency medicine resident. documented in this encounter Miscellaneous Notes * Anesthesia Transfer of Care - Sahara Yip Anes Asst - 12/05/2020 9:09 AM CDT ANESTHESIA TRANSFER OF CARE NOTE Today's Date: 12/05/2020 Date of : 1965 Patient: Milagros Torres Procedure(s): LAPAROSCOPIC CHOLECYSTECTOMY with possible open Surgeon(s): Primary: Cole Ku MD Resident - Assisting: Beto Kennedy MD; Isaías Ansari MD Preop Diagnosis: Pre-op Diagnois: * Biliary colic [K80.50] Pre-op Meds (From admission, onward) Start Stop Status Route Frequency Ordered 12/05/20 0600 lactated ringers infusion -- Dispensed IV PRE-OP CONTINUOUS 12/05/20 0558 12/05/20 0907 oxyCODONE (immediate release) (Roxicodone) tablet 10 mg -- Sent PO EVERY 4 HOURS PRN 12/05/20 0907 12/05/20 0907 oxyCODONE (immediate release) (Roxicodone) tablet 5 mg -- Sent PO EVERY 4 HOURS PRN 12/05/20 0907 Post-op Diagnosis: * Biliary colic [K80.50] . Not on File Vitals: Patient Vitals for the past 3 hrs: BP Temp Pulse Resp SpO2 Pain Rating Score #1 12/05/20 0612 165/98 98.1 ??F (36.7 ??C) 65 15 97 % 0 Lines, Drains, and Airways Type Details Placement Removal Peripheral IV Date: 12/05/20; Time: 06; Orientation: Right; Location: Wrist; Gauge: 18 Gauge; Locals: None; Tolerance: Well 12/05/20 0610 by Taniya Buenrostro RN ETT Date: 12/05/20; Time: 07; Placed By: VIRAJ Mane; Vent: easy mask; Induction: Standard IV; Blade Type: Kevyn; Blade Size: 4; Laryngoscopy View: Grade 1 (full cords); Intubation Adjuncts: Stylet; Tube: Endotracheal Tube; Placement: Oral; Tube Size(mm): 7 MM; Depth of Insertion: 22 CM; Attempts: 1; Cuff Infated: Air; Verified By: Direct visualization, Bilateral breath sounds, CO2 Monitor 12/05/20 0746 by Rubin Sexton APRN-CRNA 12/05/20 0859 by Rubin Sexton APRN-CRNA Intraprocedure I/O Totals Intake LR (Lactated ringers) 1000.00 mL Total Intake 1000 mL Patient [...] understanding of report from the receiving PACUteam. Terell Mederos documented in this encounter Plan of Treatment Upcoming Encounters Date Type Department Care Team (Raji Contact Info) Description 06/02/2024 10:30 AM JUDICIAL LAW CLERK Office Visit [facility] - Orthopedic Surgery [address] [place] [phone] Kevin Britton MD [address] [facility] [address] [place] [address] 08/10/2024 1:00 PM CDT Office Visit [facility] - STRATEGIC DEVELOPMENT MANAGER [address] [facility] [address] [place] [phone] Daja Mir MD [address] [place] [address] 10/26/2024 1:00 PM CDT Office Visit [facility] - Hematology/Oncology [address] [place] [phone] Elizabeth Garcia MD [address] [facility] [address] [place] [address] 01/17/2025 12:30 PM CDT Procedure [facility] [place] [address] [place] [address], [place] [phone] 01/17/2025 1:00 PM CDT Office Visit [facility] - GI [address] [place] [phone] Marlena Mccoy, ASSISTANT FOOD SERVICE MANAGER-[employer] DIRECTION SPECIALIST [address] [place] [address] [facility] [place] [address] documented as of this encounter Goals Goal Patient Goal Type Associated Problems Recent Progress Patient-Stated? Author Mobility General On track( 021 9:08 AM JUDICIAL LAW CLERK) Tika Cunha, SABRINA Note: Expected end date: [...] Associated Diagnosis Comments ENDOTRACHEAL TUBE NOTE Routine 12/05/2020 8:09 AM CDT documented in this encounter Results * ETT LINE PERFORMABLE (12/05/2020 8:09 AM CDT) Narrative Rubin Sexton APRN-CRNA - 12/05/2020 8:09 AM CDT Rubin Sexton APRN-CRNA ? 12/05/2020 ??8:10 AM Endotracheal Tube Placement: ? Patient Location: OR. Intubation Event Date/Time: ??12/05/2020 7:46 AM Procedure: intubation ([id number]). Procedure Section: ?? Sedation: under general anesthesia. [...] Staff Section ?? Anesthesia Provider: Rubin Sexton APRN-CRNA, Performed the procedure Additional Comments: DVOI x ! Per emergency medicine resident. Tyler Cat MD GENERAL ANESTHESIA ORDERABLES documented in this encounter Visit Diagnoses Not on filedocumented in this encounter Administered Medications Inactive Administered Medications - up to 3 most recent administrations Medication Order MAR Action Action Date Dose Rate Site cefOXitin (Mefoxin) injection Intravenous, PRN, Starting on Fri12/05/20 at 0750, Until Fri12/05/20 at 0907, Anesthesia Intra-op $ Given 12/05/2020 7:50 AM CDT 2 g dexAMETHasone Sod Phosphate PF injection Intravenous, PRN, Starting on Fri12/05/20 at 0804, Until Fri12/05/20 at 09, Anesthesia Intra-op $ Given 12/05/2020 8:04 AM CDT 8 mg fentaNYL (PF) (Sublimaze) injection Intravenous, PRN, Starting on Fri12/05/20 at 0743, Until Fri12/05/20 at 09, Anesthesia Intra-op $ Given 12/05/2020 8:28 AM CDT 100 mcg $ Given 12/05/2020 7:43 AM CDT 100 mcg ketorolac (Toradol) injection Intravenous, PRN, Starting on Fri12/05/20 at 0846, Until Fri12/05/20 at 09, Anesthesia Intra-op $ Given 12/05/2020 8:46 AM CDT 30 mg lactated ringers infusion Intravenous, CONTINUOUS PRN, Starting on Fri12/05/20 at 0655, Until Fri12/05/20 at 09, Anesthesia Intra-op $ New Bag/Syringe 12/05/2020 8:46 AM CDT $ New Bag/Syringe 12/05/2020 6:55 AM CDT lidocaine hcl (PF) (Xylocaine MPF) 2 % injection Intravenous, PRN, Starting on Fri12/05/20 at 0743, Until Fri12/05/20 at 09, Anesthesia Intra-op $ Given 12/05/2020 7:43 AM CDT 100 mg midazolam (Versed) injection Intravenous, PRN, Starting on Fri12/05/20 at 0731, Until Fri12/05/20 at 09, Anesthesia Intra-op $ Given 12/05/2020 7:31 AM CDT 2 mg Ondansetron HCl (Zofran) injection Intravenous, PRN, Starting on Fri12/05/20 at 0846, Until Fri12/05/20 at 09, Anesthesia Intra-op $ Given 12/05/2020 8:46 AM CDT 4 mg phenylephrine 100 mcg/mL injection Intravenous, PRN, Starting on Fri12/05/20 at 0818, Until Fri12/05/20 at 0907, Anesthesia Intra-op $ Given 12/05/2020 8:18 AM CDT 200 mcg propofol (Diprivan) injection Intravenous, PRN, Starting on Fri12/05/20 at 0743, Until Fri12/05/20 at 09, Anesthesia Intra-op $ Given 12/05/2020 7:43 AM CDT 150 mg rocuronium (Zemuron) injection Intravenous, PRN, Starting on Fri12/05/20 at 0743, Until Fri12/05/20 at 09, Anesthesia Intra-op $ Given 12/05/2020 7:43 AM CDT 50 mg sugammadex (Bridion) injection Intravenous, PRN, Starting on Fri12/05/20 at 0846, Until Fri12/05/20 at 09, Anesthesia Intra-op $ Given 12/05/2020 8:46 AM CDT 200 mg documented in this encounter Care Teams Outside Property Agent Relationship Specialty Start Date End Date Asher Garrison MD [address] [place] [phone] PCP - General 08/25/18 05/02/21 Cole Ku MD [address] [phone] General Surgery 11/10/20 documented as of this encounter
--- OUTSIDE RECORDS SUMMARY | 2024-04-25 14:05 | XMS_ITS | Encounter Summary ---
Author Organization [facility] Address [address] [place] [address] Care Team Providers Care Manager Of Regulatory Affairs Name Role Phone Asher Garrison MD Primary Care Provider [phone] Cole Ku MD Unavailable Encounter Details Date Type Department Care Team (Latest Contact Info) Description 11/27/2020 8:51 AM CDT - 11/27/2020 9:26 AM CDT Hospital Encounter [facility] [address] [place] [phone] Cole Ku MD [address] [facility] 2L DIV OF [facility] [place] [phone] Discharge Disposition: Home or Self Care Anesthesia Record Procedure Summary Procedure Name Responsible [...] Room 0902 [id number] An Stop Meds * Agents No agents on file. * Blood No blood administrations on file. Lines, Drains, and Airways Type Details Placement Removal Peripheral IV Date: 12/05/20; Time : 0610; Orientation: Right; Tolerance: Well 12/05/20 0610 by Taniya Buenrostro RN 12/05/20 1742 by Generic, Auto Release ETT Date: 12/05/20; [...] Sign Reading Time Taken Comments Blood Pressure 154/94 11/27/2020 9:06 AM CDT Pulse 60 11/27/2020 9:06 AM CDT Temperature 36.6 ??C (97.8 ??F) 11/27/2020 9:06 AM CD T Respiratory Rate 18 11/27/2020 9:06 AM CDT Oxygen Saturation 100% 11/27/2020 9:06 AM CDT Inhaled Oxygen Concentration - - Weight 87.7 kg (193 lb 4.8 oz) 11/27/2020 9:06 A M CDT Height 170.2 cm (5' 7 ) 11/27/2020 9:06 AM CDT Body Mass Index 30.28 11/27/2020 9:06 AM CDT documented in this encounter Medications at Time [...] st Contact Info) Description 06/02/2024 10:30 AM PAPER PRODUCTS PRINTER Office Visit [facility] - Orthopedic Surgery [address] [place] [phone] Kevin Britton MD [address] [facility] [address] [place] [address] 08/10/2024 1:00 PM CDT Office Visit [facility] - [employer] PRINCIPAL [address] [facility] [address] [place] [phone] Daja Mir MD [address] [facility] [place] [place] [address] 10/26/2024 1:00 PM CDT Office Visit [facility] - Hematology/Oncology [address] [place] [phone] Elizabeth Garcia MD [address] [facility] [address] [place] [address] 01/17/2025 12:30 PM CDT Procedure visit [facility] - GI [address] [facility] [place] [phone] 01/17/2025 1:00 PM CDT Office Visit [facility] - GI [address] [facility], [place] [phone] Marlena Mccoy, [employer] PAYABLE OR RECEIVABLE CLERK [address] [place] [address] [facility] [place] [address] documented as of this encounter Goals Goal Patient Goal Type Associated Problems Recent Progress Patient-Stated? Author Mobility General On track( 9:08 AM PAPER PRODUCTS PRINTER) No Tika Pope, RN Note: Expected end [...] Procedure Name Priority Date/Time Associated Diagnosis Comments COMPREHENSIVE METABOLIC PANEL Routine 11/27/2020 9:47 AM CDT Pre-op exam documented in this encounter Results * (ABNORMAL) COMPREHENSIVE METABOLIC PANEL (11/27/2020 9:47 AM CDT) Pathologist [facility] BUN 13 7 - 26 mg/dL 11/27/2020 11:20 AM CDT [facility] Creatinine 1.00(H) 0.56 - 0.96 mg/dL 11/27/2020 11:20 AM CDT [facility] Sodium 146(H) 136 - 145 mmol/L 11/27/2020 11:20 AM CDT [facility] Potassium 4.0 3.5 - 4.5 mmol/L 11/27/2020 11:20 AM [facility] Chloride 109(H) 98 - 107 mmol/L 11/27/2020 11:20 AM [facility] CO2 29 22 - 29 mmol/L 11/27/2020 11:20 AM [facility] Glucose 83 70 - 115 mg/dL 11/27/2020 11:20 AM [facility] Calcium 9.9 8.4 - 10.2 mg/dL 11/27/2020 11:20 AM [facility] Protein Total 6.9 6.0 - 8.3 g/dL 11/27/2020 11:20 AM [facility] Albumin 3.5 3.4 - 5.0 g/dL 11/27/2020 11:20 AM [facility] Bilirubin Total 0.3 0.2 - 1.2 mg/dL 11/27/2020 11:20 AM [facility] Alkaline Phosphatase 69 40 - 150 U/L 11/27/2020 11:20 AM [facility] ALT 32 5 - 55 U/L 11/27/2020 11:20 AM [facility] AST 34 5 - 34 U/L 11/27/2020 11:20 AM [facility] Anion Gap 12 8 - 18 11/27/2020 11:20 AM [facility] BUN/Creatinine Ratio 13 7 - 23 11/27/2020 11:20 AM [facility] Osmolality Calculated 301(H) 270 - 300 mOsm/kg 11/27/2020 11:20 AM [facility] Albumin/Globulin Ratio 1.0(L) 1.1 - 2.3 11/27/2020 11:20 AM [facility] eGFR by CKD-EPI 63(L) >=90 mL/min/1.7 3 m2 11/27/2020 11:20 AM [facility] Blood BLOOD SPECIMEN / Unknown Lab Venipuncture / Unknown 11/27/2020 9:47 AM CDT 11/27/2020 10:51 AM T Wanda Lind [employer] PAYABLE OR RECEIVABLE CLERK LAB - CHEMISTRY ORDERABLES [facility] [address] [place] [address], [facility] [phone] documented in this encounter Visit Diagnoses Diagnosis Pre-op exam- Primary Preoperative examination, unspecified documented in this encounter Care Teams Manager Of Regulatory Affairs Relationship Specialty Start Date End Date Asher Garrison MD [address] [place] [phone] PCP - General 08/25/18 05/02/21 Cole Ku MD [address] [facility] 2L [place] [address] General Surgery 11/10/20 documented as of this encounter
--- OUTSIDE RECORDS SUMMARY | 2024-04-25 14:05 | XMS_ITS | Encounter Summary ---
Author Organization [facility] Address [address] [facility] [place] [address] Care Team Providers Care Burn Out Tender Lace Name Role Phone Asher Garrison MD Primary Care Provider [phone] Reason for Referral * Radiology Services (Routine) - Closed Specialty Diagnoses / Procedures Referred By Contlicha t Referred To Contact Gastroenterology Diagnoses NAFLD (nonalcoholic fatty liver disease) Elevated liver enzymes Procedures PROC FIBROSCAN Marlena Mccoy APRN-DARY [address] [place] [address] OF [place] [address] [facility] [address] [place] [address] Referral ID Status Reason Start Date Expiration Date Visits Re quested Visits Authorized [id number] Closed 05/12/2020 05/12/2021 1 1 YSTEMS ENGINEER Reason for Visit * Reason Comments Liver Problem Encounter Details Date Type Department Care Team (Late st Contact Info) Description 05/12/2020 9:30 AM SUBSYSTEMS ENGINEER Office Visit [facility] - [address] [address] Erma Neri MD [address] [address] Marlena Mccoy APRN-CNP [address] OF [place] [address] NAFLD (nonalcoholic fatty liver disease) (Primary Dx); Elevated liver enzymes; Right upper quadrant abdominal pain; Calculus of gallbladder without cholecystitis without obstruction Social History Tobacco Use Types Packs/Day Years [...] COVID-19? No / Unsure 05/12/2020 9:50 AM SUBSYSTEMS ENGINEER documented as of this encounter Last Filed Vital Signs Vital Sign Reading Time Taken Comments Blood Pressure 178/92 05/12/2020 9:06 AM SUBSYSTEMS ENGINEER Pulse 59 05/12/2020 9:06 AM SUBSYSTEMS ENGINEER Temperature 36.3 ??C (97.3 ??F) 05/12/2020 9:06 AM CS T Respiratory Rate 20 05/12/2020 9:06 AM SUBSYSTEMS ENGINEER Oxygen Saturation 99% 05/12/2020 9:06 AM SUBSYSTEMS ENGINEER Inhaled Oxygen Concentration - - Weight 89.8 kg (198 lb) 05/12/2020 9:06 AM SUBSYSTEMS ENGINEER Height 170.2 cm (5' 7 ) 05/12/2020 9:06 AM SUBSYSTEMS ENGINEER Body Mass Index 31.01 05/12/2020 9:06 AM SUBSYSTEMS ENGINEER documented in this encounter Patient Instructions * Patient Instructions* Marlena Mccoy APRN-CNP - 05/12/2020 9:28 AM SUBSYSTEMS ENGINEER 1. blood work downstairs today 2. Fibroscan when you return to see GI for gallbladder 3. Here are some recommendations for fatty liver. Discussed reasons for exercise, calorie reduction [...] aerobics, elliptical, treadmill orother cardio work outs. YSTEMS ENGINEER documented in this encounter Progress Notes * Marlena Mccoy APRN-CNP - 05/12/2020 9:30 AM CST I saw Ms. Torres in [facility] for an initial visit today. Chief Complaint Patient presents with ??? Liver Problem Patient Active Problem List: Anxiety Benign essential HTN Depression Malignant neoplasm of upper-inner quadrant of left breast in female, estrogen receptor positive History: Milagros Torres is a 54 year old [...] cholecystitis. She wants cholecystectomy d/t this pain. Risk factors: IVDU: No; transfusions before 1992: No; other risks: none identified . Fatigue: none Pruritus: none. GI bleeding: none. History of icteric illnesses: none. 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 Moving a lot of boxes often. She describes her current average alcohol consumption as occasional. Maybe a couple drinks per month. cigarette smoker no Family History of Liver disease: no Current Outpatient Medications Medication Sig ??? calcium 600 MG tablet Take 1 tablet by mouth daily with food ??? meloxicam (MOBIC) 15 MG tablet Take 1 tablet by mouth once daily ??? tamoxifen (NOLVADEX) 20 MG tablet Take 1 tablet by mouth ??? Vitamin D3, cholecalciferol, 50 MCG (1999 UT) tablet Take 1 tablet by mouth once daily No current facility-administered medications for this visit. I have reviewed and confirmed with Ms. Torres her current medications, allergies, social history and family history. Review of systems: Chest pain: none. Shortness of breath: none. Nausea and vomiting: none. Reflux or GERD symptoms: none. Constipation or diarrhea: none. Depression: she denies that this is a current problem. On exam today, she appeared alert and anicteric. BP 178/92 Pulse 59 Temp 97.3 ??F (36.3 ??C) Resp 20 Ht 1.702 m (5' 7 ) Wt 89.8 kg (198 lb) SpO2 99%BMI 31.01 kg/m2 I reviewed today's vital signs with the patient. Cutaneous signs of chronic liver disease: none. Lungs were clear to auscultation bilaterally. Heart sounds were regular rate and rhythm. There were no murmurs. Abdomen was soft and nontender. Hepatomegaly: non-palpable Splenomegaly: non-palpable Ascites: none. Masses: none. Hernias: none. Lower extremity edema: none. Mental status: normal. Relevant test results: Recent Labs Component Name 05/12/20 1028 03/20/20 0921 09/13/19 1412 TBILI 0.5 0.4 0.2 ALKPHOS 78 72 69 ALT 43 38 39 AST 54* 54* 45* ALB 3.8 3.5 3.8 NA 139 140 141 POTASSIUM 3.9 3.9 3.7 CO2 26 23 24 CREATININE 1.0 1.1 1.1 BUN 17 13 14 HGB 12.8 12.8 13.3 WBC 7.3 5.8 9.8 PLTCOUNT 182 173 162 INR 1.0 - - US 03/24/20 IMPRESSION: ?? 1. Diffuse hepatic steatosis without discrete hepatic lesion or intrahepatic biliary dilation. Patent hepatic vasculature. 2. Cholelithiasis without evidence of acute cholecystitis. 3. Normal renal size. No evidence of nephrolithiasis or hydronephrosis. Assessment: 1. mildly elevated liver enzymes, hepatocellular, AST only 2. hepatic steatosis as seen on ultrasound 3. breast CA 2016, on Tamoxifen 4. obesity 5. cholelithiasis without acute cholesystitis. RUQ pain Plan: 1. fibroscan to further characterize liver disease 2. blood work for chronic liver disease workup 3. gi referral for cholelithiasis, RUQ pain 4. Specific recommendations were provided regarding diet and exercise including the avoidance of sugar sweetened beverages. She does admit that she is not interested in changing her diet. We discussed the risks of fatty liver advancing without changes. She is aware and verbalized understanding. weight loss encouraged as well. Coding Rationale New or est? New Patient Highest problem complexity: 2 or more stable chronic illnesses Data review: Review of result(s): 1 unique source(s) Ordering of test(s): 2 unique test(s) ordered Highest level of risk: Low Suggested code: 98792 An appointment was scheduled for her to see me in followup in about 6 months at which time we will review the results and discuss treatment options. Total time spent with patient was 28 minutes, with more than half of the encounter time was spent counseling and arranging plan of care. Address letter to: Erma Neri MD [address] [facility] [place] [address] Copy to: Asher Garrison MD [address] [facility] [address] BRINDA Campos [facility] Division of Gastroenterology and Hepatology Collaborating physician: Dr. Harjit Liu May 15, 2020 Orders Placed This Encounter ??? PROC FIBROSCAN ??? CBC WITH DIFFERENTIAL ??? COMPREHENSIVE METABOLIC PANEL ??? ÁLVARO BLOOD SCREEN W/REFLEX TITER ??? HEPATITIS B CORE ANTIBODY ??? FERRITIN ??? GGT ??? HEPATITIS C ANTIBODY ??? IGG BLOOD ??? IRON BLOOD ??? PT-INR [facility] ??? TRANSFERRIN ??? AMB Ref Gastroenterology - [facility] GI 302 YSTEMS ENGINEER documented in this encounter Plan of Treatment Upcoming Encounters Date Type Department Care Team (Late st Contact Info) Description 06/02/2024 10:30 AM SUBSYSTEMS ENGINEER Office Visit [facility] - Orthopedic Surgery [address] [place] [phone] Kevin Britton MD [address] [facility] [address] [place] [address] 08/10/2024 1:00 PM CDT Office Visit [facility] - BANQUET STEWARD [address] [facility] [address] [place] [phone] Daja Mir MD [address] [place] [address] 10/26/2024 1:00 PM CDT Office Visit [facility] - Hematology/Oncology [address] [place] [phone] Elizabeth Garcia MD [address] [facility] 3 [place] [address] 01/17/2025 12:30 PM CDT Procedure visit [facility] - GI [address] [place] [phone] 01/17/2025 1:00 PM CDT Office Visit [facility] - GI [address] [place] [phone] Marlena Mccoy APRN-ATTENDING AMBULATORY CARE [address] [place] [address] [facility] [place] [address] documented as of this encounter Goals Goal Patient Goal Type Associated Problems Recent Progress Patient-Stated? Author Mobility General On track( 021 9:08 AM SUBSYSTEMS ENGINEER) No Tika Pope RN Note: Expected end [...] documented as of this encounter Results * [place] LIVER ELASTOGRAPHY (11/10/2020 8:36 AM CDT) Narrative [...] based on the following published data: Horace GRACE, Kezia M, Valerie M, et al. Accuracy of FibroScan controlled attenuation parameter and liver stiffness measurement in assessing steatosis and fibrosis in patients with nonalcoholic fatty liver disease. Gastroenterology 2019;156:7009-4513. Iris MS, Abilio R, Van Anatoliy ML, [...] improved by also calculating the FIB4 score (Lilauke et al. Hepatology Communications 2019;3:2234-0877) or NAFLD Fibrosis score (Pitts et al. Clinical Gastroenterology and Hepatology 2019;17:7260-9670. from routine clinical data. 3. Liver stiffness [...] change as additional supporting data becomes available. [email or web address] Marlena Mccoy MERCHANDISE ADJUSTMENT CLERK-ATTENDING AMBULATORY CARE PROCEDURE/M INOR SURGICAL ORDERABLES * TRANSFERRIN (05/12/2020 10:28 AM SUBSYSTEMS ENGINEER) Transferrin 317 174 - 382 mg/dL 05/12/2020 11:32 AM [facility] Transferrin Saturation % 32 16 - 50 % 05/12/2020 11:32 AM [facility] Blood BLOOD SPECIMEN / Unknown Lab Venipuncture / Unknown 05/12/2020 10:28 AM SUBSYSTEMS ENGINEER 05/12/2020 11:02 AM SUBSYSTEMS ENGINEER Marlena Mccoy APRN-ATTENDING AMBULATORY CARE LAB - CHEMI STRY ORDERABLES Performing Organization Address City/[facility]/ZIP Co de Phone Number [address] [address], [facility] [phone] * PT-INR [facility] (05/12/2020 10:28 AM SUBSYSTEMS ENGINEER) PT 12.6 12.1 - 14.8 Seconds 05/12/2020 10:52 AM [facility] INR 1.0 See Comment 05/12/2020 10:52 AM [facility] Comment:The suggested therap eutic range for standard coumadin (warfarin) therapy is an INR of 2.0-3.0. For high-risk patients (Mechanical Mitral Valve Prosthesis, etc.), the suggested prophylactic therapeutic range is an INR of 2.5-3.5. Blood BLOOD SPECIMEN / Unknown Lab Venipuncture / Unknown 05/12/2020 10:28 AM SUBSYSTEMS ENGINEER 05/12/2020 10:43 AM SUBSYSTEMS ENGINEER Marlena Mccoy APRN-ATTENDING AMBULATORY CARE LAB - COAGU LATION ORDERABLES Performing Organization Address City/[facility]/ZIP Co de Phone Number [address] [address], [facility] [phone] * IRON BLOOD (05/12/2020 10:28 AM SUBSYSTEMS ENGINEER) Iron 126 40 - 150 mcg/dL 05/12/2020 11:32 AM [facility] Blood BLOOD SPECIMEN / Unknown Lab Venipuncture / Unknown 05/12/2020 10:28 AM SUBSYSTEMS ENGINEER 05/12/2020 11:02 AM SUBSYSTEMS ENGINEER Marlena Mccoy APRN-ATTENDING AMBULATORY CARE LAB - CHEMI STRY ORDERABLES [address] [address], [facility] [phone] * IGG BLOOD (05/12/2020 10:28 AM SUBSYSTEMS ENGINEER) Pathologist [facility] IgG 1,474 540-1,822 mg/dL 05/12/2020 11:32 AM SUBSYSTEMS ENGINEER [facility] Blood BLOOD SPECIMEN / Unknown Lab Venipuncture / Unknown 05/12/2020 10:28 AM SUBSYSTEMS ENGINEER 05/12/2020 11:02 AM SUBSYSTEMS ENGINEER Marlena Mccoy APRN-ATTENDING AMBULATORY CARE LAB - CHEMI STRY ORDERABLES Performing Organization Address [facility] Co de Phone Number [address] [address], [place] [phone] * HEPATITIS C ANTIBODY (05/12/2020 10:28 AM SUBSYSTEMS ENGINEER) [facility] Hepatitis C Antibody Non-react pura Non-reac tive 05/12/2020 11:54 AM SUBSYSTEMS ENGINEER [facility] Comment:Hepatitis C Antibody screen indicates no serologic evidence of past or current infection with Hepatitis C Virus. Patients with unexplained liver disease who are immunocompromised or suspected of having acute Hepatitis C infection may benefit from Nucleic Acid Test (KRISTIAN) for Hepatitis C Viral RNA to confirm Hepatitis C status. Blood BLOOD SPECIMEN / Unknown Lab Venipuncture / Unknown 05/12/2020 10:28 AM SUBSYSTEMS ENGINEER 05/12/2020 11:02 AM SUBSYSTEMS ENGINEER Marlena Mccoy APRN-ATTENDING AMBULATORY CARE LAB - CHEMI STRY ORDERABLES Performing Organization Address City/[facility]/ZIP Co de Phone Number [address] [address], [place] [phone] * GGT (05/12/2020 10:28 AM SUBSYSTEMS ENGINEER) Pathologist [facility] GGT 54 9 - 64 Units/L 05/12/2020 11:05 AM SUBSYSTEMS ENGINEER [facility] Blood BLOOD SPECIMEN / Unknown Lab Venipuncture / Unknown 05/12/2020 10:28 AM SUBSYSTEMS ENGINEER 05/12/2020 10:37 AM SUBSYSTEMS ENGINEER Marlena Mccoy APRNSecurisyn Medical LAB - CHEMI STRY ORDERABLES Performing Organization Address City/[facility]/ZIP Co de Phone Number [address] [address], [facility] [phone] * FERRITIN (05/12/2020 10:28 AM SUBSYSTEMS ENGINEER) Ferritin 132 13 - 204 ng/mL 05/12/2020 11:54 AM SUBSYSTEMS ENGINEER [facility] Blood BLOOD SPECIMEN / Unknown Lab Venipuncture / Unknown 05/12/2020 10:28 AM SUBSYSTEMS ENGINEER 05/12/2020 11:02 AM SUBSYSTEMS ENGINEER Marlena Mccoy MERCHANDISE ADJUSTMENT CLERKSecurisyn Medical LAB - CHEMI STRY ORDERABLES Performing Organization Address [facility]/ZIP Co de Phone Number [address] [address], [facility] [phone] * HEPATITIS B CORE ANTIBODY (05/12/2020 10:28 AM SUBSYSTEMS ENGINEER) Pathologist [facility] HBc Antibody Total Non-reacti ve Non-reacti ve 05/12/2020 11:54 AM SUBSYSTEMS ENGINEER [facility] Blood BLOOD SPECIMEN / Unknown Lab Venipuncture / Unknown 05/12/2020 10:28 AM SUBSYSTEMS ENGINEER 05/12/2020 11:02 AM SUBSYSTEMS ENGINEER Marlena Mccoy [facility] - CHEMI STRY ORDERABLES Performing Organization Address [facility] Co de Phone Number [address] [address], [facility] [phone] * ÁLVARO BLOOD SCREEN W/REFLEX TITER (05/12/2020 10:28 AM SUBSYSTEMS ENGINEER) ÁLVARO IgG None Detected None Detected 05/14/2020 5:14 AM SUBSYSTEMS ENGINEER [employer] ([facility]) Comment: If suspicion of connective tissue disease is strong and ÁLVARO EIA is negative, consider testing for ÁLVARO by IFA ([id number]). INTERPRETIVE INFORMATION: Anti-Nuclear Antibodies (ÁLVARO), IgG by SAJAN Antinuclear Antibodies (ÁLVARO), IgG by SAJAN: ÁLVARO specimens are screened using enzyme-linked immunosorbent assay (SAJAN) methodology. All SAJAN results reported as Detected are further tested by indirect fluorescent assay (IFA) using HEp-2 substrate with an IgG-specific conjugate. The ÁLVARO SAJAN screen is designed to detect antibodies against dsDNA, histones, SS-A (Ro), SS-B (La), Ríos, Ríos/IT OPERATIONS SPECIALIST, Scl-70, Remedios-1, centromeric proteins, other antigens extracted from the HEp-2 cell nucleus. ÁLVARO SAJAN assays have been reported to have lower sensitivities than ÁLVARO IFA for systemic autoimmune rheumatic diseases (SARD). Negative results do not necessarily rule out SARD. Performed By: [facility] [employer] [address] [place] [address] Chief Of Anesthesiology: Milagros Bueno MD Blood BLOOD SPECIMEN / Unknown Lab Venipuncture / Unknown 05/12/2020 10:28 AM SUBSYSTEMS ENGINEER 05/12/2020 11:02 AM SUBSYSTEMS ENGINEER Marlena Mccoy MERCHANDISE ADJUSTMENT CLERK-ATTENDING AMBULATORY CARE LAB - CHEMI STRY ORDERABLES [facility]) [address] [place] [address], [facility] * (ABNORMAL) COMPREHENSIVE METABOLIC PANEL (05/12/2020 10:28 AM SUBSYSTEMS ENGINEER) BUN 17 7 - 26 mg/dL 05/12/2020 11:05 AM [facility] Creatinine 1.0 0.6 - 1.2 mg/dL 05/12/2020 11:05 AM [facility] Sodium 139 136 - 145 mmol/L 05/12/2020 11:05 AM [facility] Potassium 3.9 3.5 - 4.5 mmol/L 05/12/2020 11:05 AM [facility] Chloride 104 98 - 107 mmol/L 05/12/2020 11:05 AM [facility] CO2 26 22 - 29 mmol/L 05/12/2020 11:05 AM [facility] Glucose 79 70 - 115 mg/dL 05/12/2020 11:05 AM [facility] Calcium 9.4 8.4 - 10.2 mg/dL 05/12/2020 11:05 AM [facility] Protein Total 7.4 6.0 - 8.3 g/dL 05/12/2020 11:05 AM [facility] Albumin 3.8 3.4 - 5.0 g/dL 05/12/2020 11:05 AM [facility] Bilirubin Total 0.5 0.2 - 1.2 mg/dL 05/12/2020 11:05 AM [facility] Alkaline Phosphatase 78 40 - 150 Units/L 05/12/2020 11:05 AM [facility] ALT 43 0 - 55 Units/L 05/12/2020 11:05 AM [facility] AST 54(H) 5 - 34 Units/L 05/12/2020 11:05 AM [facility] Anion Gap 13 8 - 18 05/12/2020 11:05 AM [facility] BUN/Creatinine Ratio 17 7 - 23 05/12/2020 11:05 AM [facility] Osmolality Calculated 288 270 - 300 mOsm/kg 05/12/2020 11:05 AM [facility] Albumin/Globulin Ratio 1.1 1.1 - 2.3 05/12/2020 11:05 AM [facility] eGFR 58(L) >60 mL/min/1.7 3 m2 05/12/2020 11:05 AM [facility] Blood BLOOD SPECIMEN / Unknown Lab Venipuncture / Unknown 05/12/2020 10:28 AM [facility] 05/12/2020 10:37 AM [facility] Marlena Mccoy MERCHANDISE ADJUSTMENT CLERK-ATTENDING AMBULATORY CARE LAB - CHEMI STRY ORDERABLES [facility] [address] [place] [address], [facility] [phone] * CBC WITH DIFFERENTIAL (05/12/2020 10:28 AM [facility]) WBC 7.3 3.5 - 10.5 10? 3 /uL 05/12/2020 10:42 AM [facility] RBC 4.28 3.90 - 5.00 10? 6 /uL 05/12/2020 10:42 AM [facility] Hemoglobin 12.8 12.0 - 15.5 g/dL 05/12/2020 10:42 AM [facility] Hematocrit 38.9 35.0 - 45.0 % 05/12/2020 10:42 AM [facility] MCV 90.9 81.0 - 97.0 fL 05/12/2020 10:42 AM [facility] MCH 29.9 28.0 - 34.0 pg 05/12/2020 10:42 AM [facility] MCHC 32.9 32.0 - 36.0 g/dL 05/12/2020 10:42 AM [facility] Platelet Count 182 150 - 400 10? 3 /uL 05/12/2020 10:42 AM [facility] RDW-SD 40.9 36.0 - 50.0 fL 05/12/2020 10:42 AM [facility] RDW-CV 12.4 11.2 - 14.8 % 05/12/2020 10:42 AM [facility] MPV 11.2 9.3 - 12.8 fL 05/12/2020 10:42 AM [facility] nRBC Absolute 0.00 0 10? 3 /uL 05/12/2020 10:42 AM [facility] nRBC Auto 0.0 0 /100 WBC 05/12/2020 10:42 AM [facility] Neutrophils % 63.6 35.0 - 70.0 % 05/12/2020 10:42 AM [facility] Lymphocytes % 28.5 19.7 - 55.1 % 05/12/2020 10:42 AM [facility] Monocytes % 5.9 3.0 - 15.0 % 05/12/2020 10:42 AM [facility] Eosinophils % 1.4 0.0 - 6.0 % 05/12/2020 10:42 AM [facility] Basophil % 0.3 0.0 - 1.5 % 05/12/2020 10:42 AM [facility] Neutrophils Absolute 4.7 1.6 - 7.0 10? 3 /uL 05/12/2020 10:42 AM [facility] Lymphocyte Absolute 2.1 0.8 - 2.9 10? 3 /uL 05/12/2020 10:42 AM [facility] Monocytes Absolute 0.43 0.14 - 0.66 10? 3 /uL 05/12/2020 10:42 AM [facility] Eosinophils Absolute 0.10 0.00 - 0.45 10? 3 /uL 05/12/2020 10:42 AM [facility] Basophils Absolute 0.02 0.00 - 0.06 10? 3 /uL 05/12/2020 10:42 AM [facility] Immature Granulocytes % 0.3 0.0 - 1.0 % 05/12/2020 10:42 AM [facility] Blood BLOOD SPECIMEN / Unknown Lab Venipuncture / Unknown 05/12/2020 10:28 AM SUBSYSTEMS ENGINEER 05/12/2020 10:37 AM [facility] Marlena Mccoy MERCHANDISE ADJUSTMENT CLERK-ATTENDING AMBULATORY CARE LAB - HEMAT OLOGY ORDERABLES [facility] [address] [place] [address], [facility] [phone] documented in this encounter Visit Diagnoses Diagnosis NAFLD (nonalcoholic fatty liver disease)- Primary Other chronic nonalcoholic liver disease Elevated liver enzymes Nonspecific elevation of levels of transaminase or lactic acid dehydrogenase (LDH) Right upper quadrant abdominal pain Abdominal pain, right upper quadrant Calculus of gallbladder without cholecystitis without obstruction Calculus of gallbladder without mention of cholecystitis or obstruction NAFLD (nonalcoholic fatty liver disease)- Primary Other chronic nonalcoholic liver disease Elevated liver enzymes Nonspecific elevation of levels of transaminase or lactic acid dehydrogenase (LDH) documented in this encounter Care Teams Burn Out Tender Lace Relationship Specialty Start Date End Date Asher Garrison MD [address] [place] [address] PCP - General 08/25/18 05/02/21 documented as of this encounter
--- OUTSIDE RECORDS SUMMARY | 2024-04-25 14:05 | XMS_ITS | Encounter Summary ---
Author Organization [facility] Address [address] [place] [address] Care Team Providers Care Behavioral Medical Director Name Role Phone Asher Garrison MD Primary Care Provider [phone] Reason for Visit * Reason Comments Establish Care biliary colic * Evaluate & Treat (Routine) - Closed Specialty Diagnoses / Procedures Referred By Americo peters Referred To Contact Surgery-General Diagnoses Biliary colic Joseph Pathak MD [address] [facility] 2L DIV [place] [address] Yehuda [facility] [address] [place] [address] Referral ID Status Reason Start Date Expiration Date V isits Requested Visits Authorized [id number] Closed Specialty Services Required 08/03/2020 08/03/2021 1 1 Encounter Details Date Type Department Care Team (Late st Contact Info) Description 08/23/2020 12:00 PM CDT Office Visit [facility] [address] [place] [address] Joseph Pathak MD [address] [facility] 2L DIV [place] [address] Cole Ku MD [address] [facility] 2L [place] [address] Biliary colic (Primary Dx) Social History Tobacco [...] Reading Time Taken Comments Blood Pressure 156/93 08/23/2020 12:06 PM CDT Pulse 64 08/23/2020 12:06 PM CDT Temperature 36.2 ??C (97.2 ??F) 08/23/2020 12:06 PM C DT Respiratory Rate 20 08/23/2020 12:06 PM CDT Oxygen Saturation - - Inhaled Oxygen Concentration - - Weight 83 kg (183 lb) 08/23/2020 12:06 PM CDT Height 170.2 cm (5' 7 ) 08/23/2020 12:06 PM CDT Body Mass Index 28.66 08/23/2020 12:06 PM CDT documented in this encounter Progress Notes * Cole Ku MD - 08/24/2020 9:19 AM CDT Patient Name: Milagros Torres Age/Gender: 55 year old female : 1965 Chief Complaint: Abdominal pain HPI: Milagros Torres is a 55 year old female who presents with a 4-year history of gallstones. More recently she has developed a sharp, twinging pain that is hard to describe in her right upper quadrant verging on her right flank in the subcostal region. The pain stays on for about 20 minutes. The pain wakes her up from sleep. It does not seem to be related to eating. A right upper quadrant ultrasound reveals gallstones. She has a history of shingles that occurred at a lower spinal level by at least 3 levels and was centered on her back not her abdominal wall. This pain is completely different Past Medical History: Diagnosis Date ??? Arthropathy ??? Breast cancer ??? Depression with anxiety ??? Gallstones ??? Hypertension ??? Malignancy breast left ??? Valvular heart disease heart murmur Past Surgical History: Procedure Laterality Date ??? Breast Lumpectomy Left 09/04/2015 With sentinel node biopsy performed by Dr. Brittni Knight ??? Section 05/1990 ??? Dilation and Curettage Current Outpatient Medications Medication Sig ??? calcium [...] No current facility-administered medications for this visit. No Known Allergies Social History Tobacco Use ??? Smoking status: Never Smoker ??? Smokeless tobacco: Never Used Vaping Use ??? Vaping Use: Never assessed Substance Use Topics ??? Alcohol use: Yes Comment: ocassional ??? Drug use: Never Family history: Noncontributory Review of Systems Constitutional: Negative for fatigue, weight loss, fevers, chills, anorexia Eyes: Negative for changes in vision or ocular discharge Ears, nose, mouth and throat: Negative for ear pain, nasal drainage, sore throat Respiratory: Negative for shortness of breath, acute cough, asthma, sneezing Cardiovascular: negative for chest pain, cyanosis Gastrointestinal: Negative for nausea, vomiting, hematemesis, hematochezia,abdominal pain, constipation, diarrhea Genitourinary: Negative for dysuria, hematuria Skin: Negative for rash Hematologic/lymphatic: Negative for easy bruising Musculoskeletal: Negative for joint pain, muscle pain Neurological: Negative for headaches, seizures Vitals: 08/23/20 1206 BP: 156/93 Pulse: 64 Resp: 20 Temp: 97.2 ??F (36.2 ??C) Weight: 183 lb (83 kg) Height: 5' 7 (1.702 m) Physical Exam: General: A&O x 3, nad, comfortable HEENT: NC/AT, no ocular discharge, non-erythematous posterior pharynx Neck: supple, no thyromegaly Neuro: grossly normal Psych: appropriate mood and affect Heart: RRR, no murmurs rubs or gallops Lungs: CTAB Abdomen: S ND. Mild tenderness to palpation in the right upper quadrant Extremities: wwp Recent Labs: Recent Labs Component Name 07/03/20 1019 WBC 7.3 HGB 13.3 HCT 40.2 Recent Labs Component Name 07/03/20 1019 NA 143 CL 110* CO2 25 BUN 14 CREATININE 1.0 Recent Labs Component Name 05/12/20 1028 PT 12.6 INR 1.0 All pertinent records and reports available to me reviewed and summarized Assesment and Plan: Milagros Torres is an 55 year old female who is referred by Joseph Carpio [facility]*for potential biliary colic. Her symptoms are not very classic for biliary colic however I do think she has associated symptoms enough to warrant a laparoscopic cholecystectomy. The risks of laparoscopic cholecystectomy, including bleeding, infection, bowel injury, bile duct injury, bile leak and pain were explained to the patient. The main risk to her is that this pain is not caused by her gallbladder. She is understanding of this. She will be scheduled for surgery in the near future. She is in agreement with the plan and all of her questions were answered to her satisfaction. Cole Ku MD neuroscience director na [facility] documented in this encounter Plan of Treatment Upcoming Encounters Date Type Department Care Team (Late st Contact Info) Description 06/02/2024 10:30 AM CHRISTMAS TREE CONTRACTOR Office Visit [facility] - Orthopedic Surgery [address] [place] [address] Kevin Britton MD 10[address] [facility] 280 [place], [place] [phone] 08/10/2024 1:00 PM CDT Office Visit [facility] - SEED EXPERT [address] [facility] 400 [place] [phone] Daja Mir MD [address] [facility] [place] [address] 10/26/2024 1:00 PM CDT Office Visit [facility] - Hematology/Oncology [address] [place] [phone] Elizabeth Garcia MD [address] [facility] 3 [place] [address] 01/17/2025 12:30 PM CDT Procedure [place] [facility] [place] [address] [place] [address], [place] [phone] 01/17/2025 1:00 PM CDT Office Visit [facility] - GI [address] [place] [phone] Marlena Mccoy, SUPPLY CRIB ATTENDANT-HEAD OPERATOR [address] [place] [address] OF [place] [address] documented as of this encounter Goals Goal Patient Goal Type Associated Problems Recent Progress Patient-Stated? Author Mobility General On track( 021 9:08 AM CHRISTMAS TREE CONTRACTOR) No Tika Pope, RN Note: Expected end [...] obstruction documented in this encounter Care Teams Behavioral Medical Director Relationship Specialty Start Date End Date Asher Garrison MD [address] [place] [address] PCP - General 08/25/18 05/02/21 documented as of this encounter
--- OUTSIDE RECORDS SUMMARY | 2024-04-25 14:05 | XMS_ITS | Encounter Summary ---
Author Organization [facility] Address [address] [facility] [facility] [place] [address] Care Team Providers Care Detective Chief Name Role Phone Asher Garrison MD Primary Care Provider [phone] Reason for Visit * Reason Onset Date Comments Post Op Call 09/19/2020 Encounter Details Date Type Department Care Team (Late Contact Info) Description 09/19/2020 Telephone [facility]OSCOPY [address] [place] [phone] Monica Lentz RN Post Op Call Social History Tobacco Use Types Packs/Day Years [...] (Late Contact Info) Description 06/02/2024 10:30 AM LABORER SHELLFISH PROCESSING Office Visit [facility] - Orthopedic Surgery [address] [place] [address] Kevin Britton MD 10[address] [facility] 280 [place] [address] 08/10/2024 1:00 PM CDT Office Visit [facility] - MUCK FARMER [address] [facility] [address] [place] [phone] Daja Mir MD [address] [facility] [place] [address] 10/26/2024 1:00 PM CDT Office Visit [facility] - Hematology/Oncology [address] [place] [phone] Elizabeth Garcia MD 3665 [facility] 3 [place] [address] 01/17/2025 12:30 PM CDT Procedure visit [facility] - GI [address] [facility], [place] [phone] 01/17/2025 1:00 PM CDT Office Visit [facility] - GI [address] [facility], [place] [phone] Marlena Mccoy, PULP MILL OPERATOR-ASSEMBLY DETAILER [address] [place] [address] [facility] [place] [address] documented as of this encounter Goals Goal Patient Goal Type Associated Problems Recent Progress Patient-Stated? Author Mobility General On track( 021 9:08 AM LABORER SHELLFISH PROCESSING) No Tika Pope, RN Note: Expected end [...] on filedocumented in this encounter Care Teams Detective Chief Relationship Specialty Start Date End Date Asher Garrison MD [address] [place] [phone] PCP - General 08/25/18 05/02/21 documented as of this encounter
--- OUTSIDE RECORDS SUMMARY | 2024-04-25 14:05 | XMS_ITS | Encounter Summary ---
Author Organization [facility] Address [address] [place] [address] Care Team Providers Care Inside Account Executive Name Role Phone Asher Garrison MD Primary Care Provider [phone] Reason for Visit * Reason Comments Follow-up Encounter Details Date Type Department Care Team (Latest Contact Info) Description 05/02/2020 11:00 AM DEVELOPER RELATIONS MANAGER Office Visit [facility] - Orthopedics [address] [place] [address] Newton Britton MD [address] [phone] Primary osteoarthritis of left knee (Primary Dx) [...] as of this encounter Progress Notes * Newton Britton MD - 05/02/2020 10:55 AM CST Patient returns for repeat left knee injection Physical exam: Examination left knee reveals intact skin without signs of infection X-rays: None obtained Assessment: Left knee osteoarthritis here for left knee injection Plan: We will proceed with repeat left knee injection today. Please see the procedure note for further details. We will see her back as needed LOPER RELATIONS MANAGER documented in this encounter Procedure Notes * Newton Britton MD - 05/02/2020 11:04 AM CSTAssociated Order(s): PROC INJECTION JOINT (SMALL/INTERMED/MAJOR) Procedure(s): [place] DRAIN/INJECT LARGE JOINT/BURSA Pre-Procedure Diagnose(s): Primary osteoarthritis [...] note. Injection performed by: Resident on service Newton Britton MD 05/02/2020 11:04 AM LOPER RELATIONS MANAGER documented in this encounter Miscellaneous Notes * Addendum Note - Newton Britton MD - 05/02/2020 11:04 AM CSTAddended by: NEWTON BRITTON on: 05/02/2020 11:04 AM Modules accepted: Orders LOPER RELATIONS MANAGER documented in this encounter Plan of Treatment Upcoming Encounters Date Type Department Care Team (Late st Contact Info) Description 06/02/2024 10:30 AM DEVELOPER RELATIONS MANAGER Office Visit [facility] - Orthopedic Surgery [address] [place] [phone] Newton Britton MD 10[address] [facility] 280 [place] [address] 08/10/2024 1:00 PM CDT Office Visit [facility] - PUBLIC WELFARE DIRECTOR 10[address] [facility] [address] [place] [phone] Daja Mir MD [address] [place] [address] 10/26/2024 1:00 PM CDT Office Visit [facility] - Hematology/Oncology [address] [place] [address] Elizabeth Garcia MD 36[address] [facility] 3 [place] [address] 01/17/2025 12:30 PM CDT Procedure visit [facility] - GI [address] [place] [phone] 01/17/2025 1:00 PM CDT Office Visit [facility] - GI [address] [place] [phone] Marlena Mccoy, PAVER OPERATOR-INTERDISCIPLINARY PROFESSOR [address] [place] [address] [facility] [place] [address] documented as of this encounter Goals Goal Patient Goal Type Associated Problems Recent Progress Patient-Stated? Author Mobility General On track(05/12/19 9:08 AM DEVELOPER RELATIONS MANAGER) Tika Cunha, RN Note: Expected end date: 05/05/2019 The goal is to maintain or improve your mobility at the optimum level for you. Interventions: documented as of this encounter Procedures Procedure Name Priority Date/Time Associated Diagnosis Comments [place] DRAIN/INJECT LARGE JOINT/BURSA Routine 05/02/2020 11:04 AM DEVELOPER RELATIONS MANAGER Primary osteoarthritis of left knee documented in this encounter Results * [place] DRAIN/INJECT LARGE JOINT/BURSA (05/02/2020 11:04 AM DEVELOPER RELATIONS MANAGER) Narrative Newton Britton MD - 05/02/2020 11:04 AM DEVELOPER RELATIONS MANAGER Newton Britton MD ? 05/02/2020 11:04 AM Orthopaedic [...] Injection performed by: ??Resident on service ? Newton Britton MD 05/02/2020 11:04 AM Newton Britton MD PROCEDURE/MINOR ALCON GICAL ORDERABLES documented in this encounter Visit Diagnoses Diagnosis Primary osteoarthritis of left knee- Primary Primary localized osteoarthrosis, lower leg documented in this encounter Administered Medications Inactive Administered Medications - up to 3 most recent administrations Medication Order MAR Action Action Date Dose Rate Site lidocaine (XYLOCAINE) 1 % injection 6 mL 6 mL, Infiltration, ONCE, 1 dose, On Tu05/02/20 at 1130 $ Given 05/02/2020 3:00 PM DEVELOPER RELATIONS MANAGER 6 mL Left Knee triamcinolone acetonide (KENALOG-40) injection 80 mg 80 mg, Intramuscular, ONCE, 1 dose, On Fri05/02/20 at 1130, Shake well before using. $ Given 05/02/2020 3:01 PM DEVELOPER RELATIONS MANAGER 80 mg Other see comments documented in this encounter Care Teams Inside Account Executive Relationship Specialty Start Date End Date Asher Garrison MD [address] [place] [address] PCP - General 08/25/18 05/02/21 documented as of this encounter
--- OUTSIDE RECORDS SUMMARY | 2024-04-25 14:05 | XMS_ITS | Encounter Summary ---
Author Organization [facility] Address [address] [facility] [place] [address] Care Team Providers Care Spice Fumigator Name Role Phone Asher Garrison MD Primary Care Provider [phone] Cole Ku MD Unavailable Reason for Visit * Reason Onset Date Comments Concerns 12/05/2020 Encounter Details Date Type Department Care Team (Late st Contact Info) Description 12/05/2020 Telephone [facility] [address] [facility], [place] [address] Marlena Lindsey, SABRINA Concerns Social History Tobacco Use Types Packs/Day Years [...] Miscellaneous Notes * Telephone Encounter - Marlena Lindsey RN - 12/05/2020 4:12 PM CDT Patient called with concerns about not receiving any pain medications after surgery today 12/05. I verified that she did not have a blue paper with scripts on them and she stated that [facility] doesn't have them either. Paged [facility] resident and explained. He said he would call the recovery room to seewhere the scripts are. documented in this encounter Plan of Treatment Upcoming Encounters Date Type Department Care Team (Late st Contact Info) Description 06/02/2024 10:30 AM BOW MAKER MACHINE TENDER Office Visit [facility] - Orthopedic Surgery [address] [place] [phone] Kevin Britton MD 1031 [facility] 280 [place] [address] 08/10/2024 1:00 PM CDT Office Visit [facility] - SHIPYARD HELPER 1031 [facility] 400 [place] [address] Daja Mir MD [address] [place] [address] 10/26/2024 1:00 PM CDT Office Visit [facility] - Hematology/Oncology [address] [place] [address] Elizabeth Garcia MD 3714 [facility] 3 [place] [address] 01/17/2025 12:30 PM CDT Procedure visit [facility] - GI [address] [facility], [place] [address] 01/17/2025 1:00 PM CDT Office Visit [facility] - GI [address] [facility], [place] [phone] Marlena Mccoy, BETTING AGENCY MANAGER-LYMPHEDEMA THERAPIST [address] [place] [address] [address] [place] [address] documented as of this encounter Goals Goal Patient Goal Type Associated Problems Recent Progress Patient-Stated? Author Mobility General On track( 021 9:08 AM BOW MAKER MACHINE TENDER) No Tika Pope, RN Note: Expected end [...] on filedocumented in this encounter Care Teams Spice Fumigator Relationship Specialty Start Date End Date Asher Garrison MD [address] [place] [address] PCP - General 08/25/18 05/02/21 Cole Ku MD [address] [place] [address] [address] [place] [address] General Surgery 11/10/20 documented as of this encounter
--- OUTSIDE RECORDS SUMMARY | 2024-04-25 14:05 | XMS_ITS | Encounter Summary ---
Author Organization [facility] Address [address] [facility] [place] [address] Care Team Providers Care Hospitality Housekeeper Name Role Phone Asher Garrison MD Primary Care Provider [phone] Cole Ku MD Unavailable Encounter Details Date Type Department Care Team (Latest Contact Info) Description 11/27/2020 Travel Social History Tobacco Use Types Packs/Day [...] Contact Info) Description 06/02/2024 10:30 AM CHIEF DIGITAL OFFICER Office Visit [facility] - Orthopedic Surgery [address] [place] [address] Kevin Britton MD [address] [address] 08/10/2024 1:00 PM CDT Office Visit [facility] - WORKERS' COMPENSATION HEARINGS OFFICER [address] [facility] [address] [place] [address] Daja Mir MD 5700 [facility] [place] [address] 10/26/2024 1:00 PM CDT Office Visit [facility] - Hematology/Oncology [address] [place] [phone] Elizabeth Garcia MD 36[address] [facility] 3 [place] [address] 01/17/2025 12:30 PM CDT Procedure visit [facility] - GI 1225 [facility], [place] [address] 01/17/2025 1:00 PM CDT Office Visit [facility] - GI 1225 [facility] [place] [address] Marlena Mccoy, RELOCATION SERVICES SPECIALIST-BURGLAR ALARM INSPECTOR [address] [place] [address] [facility] [place] [address] documented as of this encounter Goals Goal Patient Goal Type Associated Problems Recent Progress Patient-Stated? Author Mobility General On track( 021 9:08 AM CHIEF DIGITAL OFFICER) No Tika Pope, RN Note: Expected [...] on filedocumented in this encounter Care Teams Hospitality Housekeeper Relationship Specialty Start Date End Date Asher Garrison MD [address] [facility] [place] [address] PCP - General 08/25/18 05/02/21 Cole Ku MD [address] [address] General Surgery 11/10/20 documented as of this encounter
--- OUTSIDE RECORDS SUMMARY | 2024-04-25 14:06 | XMS_ITS | Encounter Summary ---
Author Organization [facility] Address [address] [place] [address] Care Team Providers Care Assurance Services Manager Health Care Name Role Phone Asher Garrison MD Primary Care Provider [phone] Reason for Referral * Radiology Services (Urgent) - Closed Specialty Diagnoses / Procedures Referred By Americo peters Referred To Contact Ultrasound Diagnoses Abnormal laboratory test result Procedures US ABDOMEN COMPLETE Erma Neri MD [address] [facility] 220 [place] [address] [address] Referral ID Status Reason Start Date Expiration Date Visits Re quested Visits Authorized [id number] Closed 03/20/2020 03/20/2021 1 1 CY OPERATOR Encounter Details Date Type Department Care Team (Late st Contact Info) Description 03/20/2020 Orders Only [facility] H[facility]ology [facility] On[facility]-[address] [address] Edna Verde RN Abnormal laboratory test result Social History Tobacco Use Types Packs/Day Years [...] have Coronavirus / COVID-19? No / Unsure 03/20/2020 8:48 AM AGENCY OPERATOR documented as of this encounter Plan of Treatment Upcoming Encounters Date Type Department Care Team (Late st Contact Info) Description 06/02/2024 10:30 AM AGENCY OPERATOR Office Visit [facility] - Orthopedic Surgery 10[address] [place] [phone] Kevin Britton MD 1031 [facility] 280 [place] [address] 08/10/2024 1:00 PM CDT Office Visit [facility] - GEOLOGY INSTRUCTOR 1031 [facility] 400 [place] [phone] Daja Mir MD [address] [facility] [place] [address] 10/26/2024 1:00 PM CDT Office Visit [facility] - Hematology/Oncology 365[address] [place] [phone] Elizabeth Garcia MD 3665 [facility] 3 [place] [address] 01/17/2025 12:30 PM CDT Procedure visit [facility] - GI [address] [place] [phone] 01/17/2025 1:00 PM CDT Office Visit [facility] - GI [address] [place] [phone] Marlena Mccoy, MINIATURE SET DESIGNER-CONVEYOR LOADER [address] [place] [address] [address]. [facility] [place] [address] documented as of this encounter Goals Goal Patient Goal Type Associated Problems Recent Progress Patient-Stated? Author Mobility General On track(05/12/19 21 9:08 AM AGENCY OPERATOR) No Tika Pope RN Note: Expected end date: 05/05/2019 The goal is to maintain or improve your mobility at the optimum level for you. Interventions: documented as of this encounter Results * US ABDOMEN COMPLETE (03/24/2020 3:17 PM AGENCY OPERATOR) Anatomical Region Laterality Modality Abdomen Ultrasound 03/24/2020 3:14 PM AGENCY OPERATOR Impressions 03/24/2020 3:43 PM AGENCY OPERATOR IMPRESSION: 1. Diffuse hepatic steatosis without discrete hepatic lesion or intrahepatic biliary dilation. Patent hepatic vasculature. 2. Cholelithiasis without evidence of acute cholecystitis. 3. Normal renal size. No evidence of nephrolithiasis or hydronephrosis. Dictated by Aranza Rascon DO (resident). This report was approved ??by Aranza Rascon ?? on 03/24/2020 3:28 PM . I, Dr. Linda DAVID M.D. have personally reviewed and interpreted this examination/study. This report was electronically signed by Linda DAVID M.D. ??on 03/24/2020 3:43 PM . Narrative 03/24/2020 3:43 PM AGENCY OPERATOR EXAMINATION: Complete abdominal sonogram HISTORY: 54-year-old female [...] vena cava are patent. Procedure Note La David MD - 03/24/2020 EXAMINATION: Complete abdominal sonogram [...] Aranza Rascon on 03/24/2020 3:[address] Linda Lee M.D. have personally reviewed and interpretedthis examination/study. This report was electronically signed by Linda DAVID M.D. on 03/24/2020 3:43 PM . Erma Neri MD US ORDERABLES documented in this encounter Visit Diagnoses Diagnosis Abnormal laboratory test result- Primary Other abnormal clinical finding Abnormal laboratory test result Other abnormal clinical finding documented in this encounter Care Teams Assurance Services Manager Health Care Relationship Specialty Start Date End Date Asher Garrison MD [address] [place] [address] PCP - General 08/25/18 05/02/21 documented as of this encounter
--- OUTSIDE RECORDS SUMMARY | 2024-04-25 14:06 | XMS_ITS | Encounter Summary ---
Author Organization [facility] Address [address] [facility] [place] [address] Care Team Providers Care Transportation Maintenance Operator Name Role Phone Asher Garrison MD Primary Care Provider [phone] Encounter Details Date Type Department Care Team (Late st Contact Info) Description 03/20/2020 9:00 AM ANALYSIS LEAD Office Visit [facility] Hematology and Oncology[address] [address] Erma Neri MD 23 [facility] 220 [place] [address] Malignant neoplasm of left breast in female, estrogen receptor positive, unspecified site of breast (HCC) (Primary Dx); Encounter for monitoring tamoxifen therapy; [...] COVID-19? No / Unsure 03/20/2020 8:48 AM ANALYSIS LEAD documented as of this encounter Last Filed Vital Signs Vital Sign Reading Time Taken Comments Blood Pressure 164/92 03/20/2020 8:54 AM ANALYSIS LEAD Pulse 68 03/20/2020 8:54 AM ANALYSIS LEAD Temperature 36.4 ??C (97.5 ??F) 03/20/2020 8:54 AM CS T Respiratory Rate 18 03/20/2020 8:54 AM ANALYSIS LEAD Oxygen Saturation 98% 03/20/2020 8:54 AM ANALYSIS LEAD Inhaled Oxygen Concentration - - Weight 91.9 kg (202 lb 8 oz) 03/20/2020 8:54 AM ANALYSIS LEAD Height 170.2 cm (5' 7 ) 03/20/2020 8:54 AM ANALYSIS LEAD Body Mass Index 31.72 03/20/2020 8:54 AM ANALYSIS LEAD documented in this encounter Progress Notes * Erma Neri MD - 03/20/2020 8:47 AM CST [facility] Hematology/Oncology Clinic Date of Visit: 03/20/2020 Attending Physician: Erma Neri MD PCP: Asher [...] June or July of 2015. Referred to [facility], where a left breast biopsy performed on 07/25/15 showed ER+/KS+/HER/2- invasive ductal carcinoma. US-guided FNA of the axillary lymph node was performed at the same time which was negative for metastatic disease. A left partial mastectomy was performed on 09/04/2015 which showed 1.5 cm, grade 2 IDC (pathologic [id number]) with negative margins. [place] lymph node biopsy was negative (0/1). She had a Oncotype DX score of 17. She was premenopausal at the time of diagnosis and started on tamoxifen. Receivedleft accelerated partial breast radiation (3850 cGy) between 10/11-10/20/[address] Thee Larson. She was followed at [facility] by Dr. Kyrie Baltazar where her LFTs were noted to be mildly elevated on a few separate occasions. Since starting tamoxifen, she has not had any periods, but has had a few episodes of spotting. Had a D&C by her or nurse manager after US showed a thickened endometrial stripe. Negative for carcinoma or hyperplasia. Now 09/2019 undergoing D&C again due to vaginal bleeding. ?? Stage I ([id number]) ER+/KS+/HER/2- Left invasive ductal carcinoma -07/2015: Abnormal mammogram 07/25/15: Breast biopsy showed invasive ductal carcinoma. Both ER and KS had a Lauren score 8/8 and HER/2 [...] by Dr. Brittni Knight ??? Section 05/1990 Social History: Social History Tobacco Use ??? Smoking status: Never Smoker ??? Smokeless tobacco: Never Used Substance Use Topics ??? Alcohol use: Yes Frequency: 2-4 times a month Family History: Family History Problem Relation Name Age of Onset ??? Cancer - Lung Mother ??? Cancer - Breast Sister Allergies: No Known Allergies Home Medications: Current Outpatient Medications Medication Sig ??? calcium 600 MG tablet Take 1 tablet by mouth daily with food ??? finasteride (PROSCAR) 5 MG tablet Take 1/4 pill daily. 30 day supply ??? ketoconazole (NIZORAL) 2 % shampoo Apply to wet hair, leave on for 3 minutes, then rinse; threetimes weekly. 30 days supply ??? meloxicam (MOBIC) 15 MG tablet TAKE 1 TABLET BY MOUTH EVERY DAY ??? tamoxifen (NOLVADEX) 20 MG tablet Take 1 tablet by mouth ??? Vitamin D3, cholecalciferol, 50 MCG (1999) [...] axillary adenopathy Labs: Recent Labs Component Name 09/13/19 1412 03/15/19 1331 09/10/18 1622 WBC 9.8 8.3 6.1 RBC 4.41 4.55 4.03 HGB 13.3 14.0 12.5 HCT 40.2 42.2 37.5 MCV 91.2 92.7 93.1 MCHC 33.1 33.2 33.3 PLTCOUNT 162 207 180 NEUTPCT 63.5 63.4 52.1 NEUTABS 6.2 5.3 3.2 Recent Labs Component Name 09/13/19 1412 03/15/19 1331 09/10/18 1622 POTASSIUM 3.7 3.6 3.9 CO2 24 27 24 BUN 14 15 17 CREATININE 1.1 1.0 1.0 GLUCOSE 129* 91 92 CALCIUM 9.4 9.8 9.3 ALKPHOS 69 88 88 94 ALT 39 50 50 41 AST 45* 46* 46* 46* EGFR 52* 58* 58* Radiology: BILATERAL DIAGNOSTIC MAMMOGRAM 10/13/19 IMPRESSION: No evidence of malignancy in either breast. ASSESSMENT: BI-RADS Category 2: Benign finding(s). Pathology: No New pathology Assessment and Recommendations: Milagros Torres is a 53 year old female with a history of stage I IDC, HTN, anxiety who presents today for scheduled follow up. ?? Stage I ([id number]) ER+/KS+/HER/2- Left invasive ductal carcinoma 2016 started Tamoxifen: [...] , cataracts, loss of BMD. - annual paedodontist visit or if any vaginal bleeding: She is undergoing D&C next week for vaginal bleeding. - monitor lipids - repeat cbc, cmp and lipids annually ?? Hx of elevated AST - Will recheck today due to mild elevation in the past. She has risk factors for NAFLD. Stable . - Order US liver today - Refer to GI RTC 4 months Erma Neri MD Silk Screen Printerresort desk clerk Hematology/Oncology [facility] YSIS LEAD documented in this encounter Plan of Treatment Upcoming Encounters Date Type Department Care Team (Late st Contact Info) Description 06/02/2024 10:30 AM ANALYSIS LEAD Office Visit [facility] - Orthopedic Surgery [address] [place] [phone] Kevin Britton MD [address] [place] [address] 08/10/2024 1:00 PM CDT Office Visit [facility]ician Group - CARD SORTER 1031 [facility] [address] [place] [phone] Daja Mir MD 5704 [facility] [place] [address] 10/26/2024 1:00 PM CDT Office Visit [facility] - Hematology/Oncology 3655 [place] [phone] Elizabeth Garcia MD 3660 [facility] 3 [place] [address] 01/17/2025 12:30 PM CDT Procedure visit [facility] Physician Group - GI 1225 [facility], [place] [phone] 01/17/2025 1:00 PM CDT Office Visit [facility] Physician Group - GI [address] [place] [address], [place] [phone] Marlena Mccoy, VINE FRUIT FARMING SUPERVISOR-COMPOSITION ROLL MAKER AND CUTTER [address] [place] [address] 3[facility] [place] [address] documented as of this encounter Goals Goal Patient Goal Type Associated Problems Recent Progress Patient-Stated? Author Mobility General On track(05/12/19 21 9:08 AM ANALYSIS LEAD) Tika Cunha RN Note: Expected end date: 05/05/2019 The goal is to maintain or improve your mobility at the optimum level for you. Interventions: documented as of this encounter Visit Diagnoses Diagnosis Malignant neoplasm of left breast in female, estrogen receptor positive, unspecified site of breast (HCC)- Primary Encounter for monitoring tamoxifen therapy Encounter for therapeutic drug monitoring Essential hypertension Abnormal LFTs (liver function tests) Other abnormal blood chemistry documented in this encounter Care Teams Transportation Maintenance Operator Relationship Specialty Start Date End Date Asher Garrison MD [address] [place] [phone] PCP - General 08/25/18 05/02/21 documented as of this encounter
--- OUTSIDE RECORDS SUMMARY | 2024-04-25 14:06 | XMS_ITS | Encounter Summary ---
Author Organization [facility] Address [address] [place] [address] Care Team Providers Care Gas Plant Repairer Name Role Phone Asher Garrison MD Primary Care Provider [phone] Encounter Details Date Type Department Care Team (Late st Contact Info) Description 03/20/2020 8:50 AM DEFENSE TRAVEL ADMINISTRATOR - 03/20/2020 11:59 PM DEFENSE TRAVEL ADMINISTRATOR Hospital Encounter [facility] [address] [facility] [address] [place] [address] Erma Neri MD 23 [facility] 220 [place] [address] Discharge Disposition: Home or Self [...] COVID-19? No / Unsure 03/20/2020 8:48 AM DEFENSE TRAVEL ADMINISTRATOR documented as of this encounter Medications at Time of Discharge Medication Sig Dispensed Refills Start Date End Date calcium 600 MG tabletIndications:Vitamin D deficiency, unspecified Take 1 tablet by mouth daily with food 90 tablet 2 03/23/2019 Vitamin D3, cholecalciferol, 50 MCG (1999 [place]) tabletIndications:Vitamin D deficiency, unspecified Take 1 tablet by mouth once daily 90 tablet 2 03/23/2019 finasteride (PROSCAR) 5 MG tabletIndications:Other androgenic alopecia Take 1/4 pill daily. 30 day supply 8 tablet 7 10/19/2019 05/12/2020 ketoconazole (NIZORAL) 2 % shampooIndications:Other seborrheic dermatitis Apply to wet hair, leave on for 3 minutes, then rinse; three times weekly. 30 days supply 120 mL 4 10/19/2019 05/12/2020 meloxicam (MOBIC) 15 MG tabletIndications:Primary osteoarthritis of left knee TAKE 1 TABLET BY MOUTH EVERY DAY 30 tablet 1 02/14/2020 04/19/2020 tamoxifen (NOLVADEX) 20 MG tablet Take 1 tablet by mouth 11/17/2015 04/05/2021 documented as of this encounter Plan of Treatment Upcoming Encounters Date Type Department Care Team (Late st Contact Info) Description 06/02/2024 10:30 AM DEFENSE TRAVEL ADMINISTRATOR Office Visit [facility] - Orthopedic Surgery [address] [place] [phone] Kevin Britton MD 1031 [facility] 280 [place] [address] 08/10/2024 1:00 PM CDT Office Visit [facility] Physician Group - BAND ATTACHER 1031 [facility] 400 [place] [address] Daja Mir MD 3242 [facility] [place] [address] 10/26/2024 1:00 PM CDT Office Visit [facility] - Hematology/Oncology [address] [place] [phone] Elizabeth Garcia MD 4104 [facility] 3 [place] [address] 01/17/2025 12:30 PM CDT Procedure visit [facility] [place] [address] [place] [address], [place] [phone] 01/17/2025 1:00 PM CDT Office Visit [facility] Physician [facility] - GI 1225 [facility], [place] [phone] Marlena Mccoy, FINAL INSTALLER INSPECTOR-DEVELOPER SUPPORT ENGINEER [address] [place] [address] [place] [address] documented as of this encounter Goals Goal Patient Goal Type Associated Problems Recent Progress Patient-Stated? Author Mobility General On track(05/12/19 9:08 AM DEFENSE TRAVEL ADMINISTRATOR) Tika Cunha RN Note: Expected end date: 05/05/2019 The goal is to maintain or improve your mobility at the optimum level for you. Interventions: documented as of this encounter Procedures Procedure Name Priority Date/Time Associated Diagnosis Comments VITAMIN D 25-HYDROXY Routine 03/20/2020 9:21 AM DEFENSE TRAVEL ADMINISTRATOR Vitamin D deficiency, unspecified History of breast cancer CBC W AUTO DIFFERENTIAL Routine 03/20/2020 9:21 AM DEFENSE TRAVEL ADMINISTRATOR Vitamin D deficiency, unspecified History of breast cancer COMPREHENSIVE METABOLIC PANEL Routine 03/20/2020 9:21 AM DEFENSE TRAVEL ADMINISTRATOR Vitamin D deficiency, unspecified History of breast cancer documented in this encounter Results * VITAMIN D 25-HYDROXY (03/20/2020 9:21 AM DEFENSE TRAVEL ADMINISTRATOR) Vitamin D, 25 Hydroxy 40.0 See comment: ng/mL 03/20/2020 11:00 AM DEFENSE TRAVEL ADMINISTRATOR [facility] Comment: The recommendations for 25-Hydroxy [...] SPECIMEN / Unknown Lab Venipuncture / Unknown 03/20/2020 9:21 AM DEFENSE TRAVEL ADMINISTRATOR 03/20/2020 10:14 AM [facility] Erma Neri MD LAB - CHEMISTRY LD [place]A [facility] [address] [place] [address], [facility] [phone] * (ABNORMAL) COMPREHENSIVE METABOLIC PANEL (03/20/2020 9:21 AM DEFENSE TRAVEL ADMINISTRATOR) BUN 13 7 - 26 mg/dL 03/20/2020 10:51 AM [facility] Creatinine 1.1 0.6 - 1.2 mg/dL 03/20/2020 10:51 AM [facility] Sodium 140 136 - 145 mmol/L 03/20/2020 10:51 AM [facility] Potassium 3.9 3.5 - 4.5 mmol/L 03/20/2020 10:51 AM [facility] Chloride 105 98 - 107 mmol/L 03/20/2020 10:51 AM [facility] CO2 23 22 - 29 mmol/L 03/20/2020 10:51 AM [facility] Glucose 84 70 - 115 mg/dL 03/20/2020 10:51 AM [facility] Calcium 9.2 8.4 - 10.2 mg/dL 03/20/2020 10:51 AM [facility] Protein Total 7.2 6.0 - 8.3 g/dL 03/20/2020 10:51 AM [facility] Albumin 3.5 3.4 - 5.0 g/dL 03/20/2020 10:51 AM [facility] Bilirubin Total 0.4 0.2 - 1.2 mg/dL 03/20/2020 10:51 AM [facility] Alkaline Phosphatase 72 40 - 150 Units/L 03/20/2020 10:51 AM [facility] ALT 38 0 - 55 Units/L 03/20/2020 10:51 AM [facility] AST 54(H) 5 - 34 Units/L 03/20/2020 10:51 AM [facility] Anion Gap 16 8 - 18 03/20/2020 10:51 AM [facility] BUN/Creatinine Ratio 12 7 - 23 03/20/2020 10:51 AM [facility] Osmolality Calculated 289 270 - 300 mOsm/kg 03/20/2020 10:51 AM [facility] Albumin/Globulin Ratio 0.9(L) 1.1 - 2.3 03/20/2020 10:51 AM [facility] eGFR 52(L) >60 mL/min/1.7 3 m2 03/20/2020 10:51 AM [facility] Blood BLOOD SPECIMEN / Unknown Lab Venipuncture / Unknown 03/20/2020 9:21 AM [facility] 03/20/2020 10:14 AM [facility] Erma Neri MD LAB - CHEMISTRY ORDE PIOTR [facility] Organization Address City/State/ZIP Co de Phone Number [facility] [address] [place] [address], [facility] [phone] * CBC WITH DIFFERENTIAL (03/20/2020 9:21 AM [facility]) WBC 5.8 3.5 - 10.5 10? 3 /uL 03/20/2020 10:28 AM [facility] RBC 4.29 3.90 - 5.00 10? 6 /uL 03/20/2020 10:28 AM [facility] Hemoglobin 12.8 12.0 - 15.5 g/dL 03/20/2020 10:28 AM [facility] Hematocrit 39.9 35.0 - 45.0 % 03/20/2020 10:28 AM [facility] MCV 93.0 81.0 - 97.0 fL 03/20/2020 10:28 AM [facility] MCH 29.8 28.0 - 34.0 pg 03/20/2020 10:28 AM [facility] MCHC 32.1 32.0 - 36.0 g/dL 03/20/2020 10:28 AM [facility] Platelet Count 173 150 - 400 10? 3 /uL 03/20/2020 10:28 AM [facility] RDW-SD 42.5 36.0 - 50.0 fL 03/20/2020 10:28 AM [facility] RDW-CV 12.4 11.2 - 14.8 % 03/20/2020 10:28 AM [facility] MPV 11.8 9.3 - 12.8 fL 03/20/2020 10:28 AM [facility] nRBC Absolute 0.00 0 10? 3 /uL 03/20/2020 10:28 AM [facility] nRBC Auto 0.0 0 /100 WBC 03/20/2020 10:28 AM [facility] Neutrophils % 56.2 35.0 - 70.0 % 03/20/2020 10:28 AM [facility] Lymphocytes % 33.8 19.7 - 55.1 % 03/20/2020 10:28 AM [facility] Monocytes % 7.1 3.0 - 15.0 % 03/20/2020 10:28 AM [facility] Eosinophils % 2.1 0.0 - 6.0 % 03/20/2020 10:28 AM [facility] Basophil % 0.5 0.0 - 1.5 % 03/20/2020 10:28 AM [facility] Neutrophils Absolute 3.2 1.6 - 7.0 10? 3 /uL 03/20/2020 10:28 AM [facility] Lymphocyte Absolute 2.0 0.8 - 2.9 10? 3 /uL 03/20/2020 10:28 AM [facility] Monocytes Absolute 0.41 0.14 - 0.66 10? 3 /uL 03/20/2020 10:28 AM [facility] Eosinophils Absolute 0.12 0.00 - 0.45 10? 3 /uL 03/20/2020 10:28 AM [facility] Basophils Absolute 0.03 0.00 - 0.06 10? 3 /uL 03/20/2020 10:28 AM [facility] Immature Granulocytes % 0.3 0.0 - 1.0 % 03/20/2020 10:28 AM [facility] Blood BLOOD SPECIMEN / Unknown Lab Venipuncture / Unknown 03/20/2020 9:21 AM DEFENSE TRAVEL ADMINISTRATOR 03/20/2020 10:14 AM DEFENSE TRAVEL ADMINISTRATOR Erma Neri MD LAB - HEMATOLOGY ORD ERABLES [facility] [address] [place] [address] [phone] documented in this encounter Visit Diagnoses Diagnosis Vitamin D deficiency, unspecified History of breast cancer Personal history of malignant neoplasm of breast documented in this encounter Care Teams Gas Plant Repairer Relationship Specialty Start Date End Date Asher Garrison MD [address] [place] [phone] PCP - General 08/25/18 05/02/21 documented as of this encounter
--- OUTSIDE RECORDS SUMMARY | 2024-04-25 14:06 | XMS_ITS | Encounter Summary ---
Author Organization [facility] Address [address] [facility] [place] [address] Care Team Providers Care Supervisor Firearms Name Role Phone Asher Garrison MD Primary Care Provider +1 [phone] Encounter Details Date Type Department Care Team (Late Contact Info) Description 03/17/2020 Orders Only [facility] Hematology and Oncology-[address] [address] Edna Verde RN Vitamin D deficiency, unspecified ; History of breast cancer Social History Tobacco [...] (Late Contact Info) Description 06/02/2024 10:30 AM BRAND ENGINEER Office Visit [facility] - Orthopedic Surgery [address] [place] [phone] Kevin Britton MD [address] [address] 08/10/2024 1:00 PM CDT Office Visit [facility] - SPEEDOMETER MECHANIC [address] [facility] [address] [address] [place] [phone] Daja Mir MD 5703 [facility] [place] [address] 10/26/2024 1:00 PM CDT Office Visit [facility] - Hematology/Oncology [address] [place] [phone] Elizabeth Garcia MD [address] [facility] [address] 3 [place] [address] 01/17/2025 12:30 PM CDT Procedure visit [facility]ician Group - GI 1225 [facility], [place] [phone] 01/17/2025 1:00 PM CDT Office Visit [facility] [place] [address] [place] [address], [place] [phone] Marlena Mccoy, TRANSFER KNITTER-STAFF NUCLEAR WEAPONS OFFICER [address] [place] [address] [facility] [place], [place] [phone] documented as of this encounter Goals Goal Patient Goal Type Associated Problems Recent Progress Patient-Stated? Author Mobility General On track(05/12/19 9:08 AM BRAND ENGINEER) Tika Cunha RN Note: Expected end date: 05/05/2019 The goal is to maintain or improve your mobility at the optimum level for you. Interventions: documented as of this encounter Results * VITAMIN D 25-HYDROXY (03/20/2020 9:21 AM BRAND ENGINEER) [facility] Vitamin D, 25 Hydroxy 40.0 See comment: ng/mL 03/20/2020 11:00 AM BRAND ENGINEER [facility] Comment: The recommendations for [...] Lab Venipuncture / Unknown 03/20/2020 9:21 AM [facility] 03/20/2020 10:14 AM [facility] Erma Neri MD LAB - CHEMISTRY LD SALDAÑA Performing Organization Address [facility]/State/ZIP Co de Phone Number [facility] [address] [place] [address], [facility] [phone] * (ABNORMAL) COMPREHENSIVE METABOLIC PANEL (03/20/2020 9:21 AM [facility]) BUN 13 7 - 26 mg/dL 03/20/2020 10:51 AM [facility] Creatinine 1.1 0.6 - 1.2 mg/dL 03/20/2020 10:51 AM [facility] Sodium 140 136 - 145 mmol/L 03/20/2020 10:51 AM [facility] Potassium 3.9 3.5 - 4.5 mmol/L 03/20/2020 10:51 AM [facility] Chloride 105 98 - 107 mmol/L 03/20/2020 10:51 AM [facility] CO2 23 22 - 29 mmol/L 03/20/2020 10:51 AM [facility] Glucose 84 70 - 115 mg/dL 03/20/2020 10:51 AM [facility] Calcium 9.2 8.4 - 10.2 mg/dL 03/20/2020 10:51 AM [facility] Protein Total 7.2 6.0 - 8.3 g/dL 03/20/2020 10:51 AM [facility] Albumin 3.5 3.4 - 5.0 g/dL 03/20/2020 10:51 AM [facility] Bilirubin Total 0.4 0.2 - 1.2 mg/dL 03/20/2020 10:51 AM [facility] Alkaline Phosphatase 72 40 - 150 Units/L 03/20/2020 10:51 AM [facility] ALT 38 0 - 55 Units/L 03/20/2020 10:51 AM [facility] AST 54(H) 5 - 34 Units/L 03/20/2020 10:51 AM [facility] Anion Gap 16 8 - 18 03/20/2020 10:51 AM [facility] BUN/Creatinine Ratio 12 7 - 23 03/20/2020 10:51 AM [facility] Osmolality Calculated 289 270 - 300 mOsm/kg 03/20/2020 10:51 AM [facility] Albumin/Globulin Ratio 0.9(L) 1.1 - 2.3 03/20/2020 10:51 AM [facility] eGFR 52(L) >60 mL/min/1.7 3 m2 03/20/2020 10:51 AM [facility] Blood BLOOD SPECIMEN / Unknown Lab Venipuncture / Unknown 03/20/2020 9:21 AM [facility] 03/20/2020 10:14 AM [facility] Erma Neri MD LAB - CHEMISTRY ORDE PIOTR [facility] Organization Address City/State/ZIP Co de Phone Number [facility] [address] [place] [address], [facility] [phone] * CBC WITH DIFFERENTIAL (03/20/2020 9:21 AM [facility]) WBC 5.8 3.5 - 10.5 10? 3 /uL 03/20/2020 10:28 AM [facility] RBC 4.29 3.90 - 5.00 10? 6 /uL 03/20/2020 10:28 AM [facility] Hemoglobin 12.8 12.0 - 15.5 g/dL 03/20/2020 10:28 AM [facility] Hematocrit 39.9 35.0 - 45.0 % 03/20/2020 10:28 AM [facility] MCV 93.0 81.0 - 97.0 fL 03/20/2020 10:28 AM [facility] MCH 29.8 28.0 - 34.0 pg 03/20/2020 10:28 AM [facility] MCHC 32.1 32.0 - 36.0 g/dL 03/20/2020 10:28 AM [facility] Platelet Count 173 150 - 400 10? 3 /uL 03/20/2020 10:28 AM [facility] RDW-SD 42.5 36.0 - 50.0 fL 03/20/2020 10:28 AM [facility] RDW-CV 12.4 11.2 - 14.8 % 03/20/2020 10:28 AM [facility] MPV 11.8 9.3 - 12.8 fL 03/20/2020 10:28 AM [facility] nRBC Absolute 0.00 0 10? 3 /uL 03/20/2020 10:28 AM [facility] nRBC Auto 0.0 0 /100 WBC 03/20/2020 10:28 AM [facility] Neutrophils % 56.2 35.0 - 70.0 % 03/20/2020 10:28 AM [facility] Lymphocytes % 33.8 19.7 - 55.1 % 03/20/2020 10:28 AM [facility] Monocytes % 7.1 3.0 - 15.0 % 03/20/2020 10:28 AM [facility] Eosinophils % 2.1 0.0 - 6.0 % 03/20/2020 10:28 AM [facility] Basophil % 0.5 0.0 - 1.5 % 03/20/2020 10:28 AM [facility] Neutrophils Absolute 3.2 1.6 - 7.0 10? 3 /uL 03/20/2020 10:28 AM [facility] Lymphocyte Absolute 2.0 0.8 - 2.9 10? 3 /uL 03/20/2020 10:28 AM [facility] Monocytes Absolute 0.41 0.14 - 0.66 10? 3 /uL 03/20/2020 10:28 AM [facility] Eosinophils Absolute 0.12 0.00 - 0.45 10? 3 /uL 03/20/2020 10:28 AM [facility] Basophils Absolute 0.03 0.00 - 0.06 10? 3 /uL 03/20/2020 10:28 AM [facility] Immature Granulocytes % 0.3 0.0 - 1.0 % 03/20/2020 10:28 AM [facility] Blood BLOOD SPECIMEN / Unknown Lab Venipuncture / Unknown 03/20/2020 9:21 AM BRAND ENGINEER 03/20/2020 10:14 AM [facility] Erma Neri MD LAB - HEMATOLOGY ORD ERABLES [facility] [address] [place] [address], [facility] [phone] documented in this encounter Visit Diagnoses Diagnosis Vitamin D deficiency, unspecified- Primary History of breast cancer Personal history of malignant neoplasm of breast documented in this encounter Care Teams Supervisor Firearms Relationship Specialty Start Date End Date Asher Garrison MD [address] [place] [address] PCP - General 08/25/18 05/02/21 documented as of this encounter
--- OUTSIDE RECORDS SUMMARY | 2024-04-25 14:06 | XMS_ITS | Encounter Summary ---
Author Organization [facility] Address [address] [place] [address] Care Team Providers Care Larder Cook Name Role Phone Asher Garrison MD Primary Care Provider +1 [phone] Reason for Referral * Radiology Services (Urgent) - Closed Specialty Diagnoses / Procedures Referred By Carminaac t Referred To Contact Ultrasound Diagnoses Abnormal laboratory test result Procedures US ABDOMEN COMPLETE Erma Neri MD [address] [address] [address] Referral ID Status Reason Start Date Expiration Date Visits Re quested Visits Authorized [id number] Closed 03/20/2020 03/20/2021 1 1 GER RELATIONSHIP Reason for Visit * Radiology Services (Urgent) - Closed Specialty Diagnoses / Procedures Referred By Americo peters Referred To Contact Ultrasound Diagnoses Abnormal laboratory test result Procedures US ABDOMEN COMPLETE Erma Neri MD [address] [address] [address] Referral ID Status Reason Start Date Expiration Date Visits Re quested Visits Authorized [id number] Closed 03/20/2020 03/20/2021 1 1 Encounter Details Date Type Department Care Team (Late st Contact Info) Description 03/24/2020 2:37 PM MANAGER RELATIONSHIP - 03/24/2020 11:59 PM MANAGER RELATIONSHIP Hospital Encounter [place] [address] [place] [address] Erma Neri MD [address] [facility] [address] [place] [address] Discharge Disposition: Home or Self [...] COVID-19? No / Unsure 03/24/2020 2:29 PM MANAGER RELATIONSHIP documented as of this encounter Medications at [...] Contact Info) Description 06/02/2024 10:30 AM MANAGER RELATIONSHIP Office Visit [facility] - Orthopedic Surgery [address] [place] [address] Kevin Britton MD [address] [place] [address] 08/10/2024 1:00 PM CDT Office Visit [facility] - FOLEY ARTIST 1031 [facility] 400 [place] [phone] Daja Mir MD 5703 [place] [address] 10/26/2024 1:00 PM CDT Office Visit [facility] - Hematology/Oncology 365[address] [place] [phone] Elizabeth Garcia MD 3665 [facility] 3 [place] [address] 01/17/2025 12:30 PM CDT Procedure visit [facility] - GI [address] [place] [phone] 01/17/2025 1:00 PM CDT Office Visit [facility] - GI [address] [place] [phone] Marlena Mccoy, HOSPITAL AIDE-SHARED SERVICES MANAGER [address] [place] [address] [facility] [place] [address] documented as of this encounter Goals Goal Patient Goal Type Associated Problems Recent Progress Patient-Stated? Author Mobility General On track(05/12/19 21 9:08 AM MANAGER RELATIONSHIP) Tika Cunha RN Note: Expected end date: 05/05/2019 The goal is to maintain or improve your mobility at the optimum level for you. Interventions: documented as of this encounter Procedures Procedure Name Priority Date/Time Associated Diagnosis Comments US ABDOMEN COMPLETE LINDA 03/24/2020 3 :17 PM MANAGER RELATIONSHIP Abnormal laboratory test result documented in this encounter Results * US ABDOMEN COMPLETE (03/24/2020 3:17 PM MANAGER RELATIONSHIP) Anatomical Region Laterality Modality Abdomen Ultrasound 03/24/2020 3:14 PM MANAGER RELATIONSHIP Impressions 03/24/2020 3:43 PM MANAGER RELATIONSHIP IMPRESSION: 1. Diffuse hepatic steatosis without discrete hepatic lesion or intrahepatic biliary dilation. Patent hepatic vasculature. 2. Cholelithiasis without evidence of acute cholecystitis. 3. Normal renal size. No evidence of nephrolithiasis or hydronephrosis. Dictated by Aranza Rascon DO (resident). This report was approved ??by Aranza Rascon ?? on 03/24/2020 3:[address] Linda Lee M.D. have personally reviewed and interpreted this examination/study. This report was electronically signed by Linda DAVID M.D. ??on 03/24/2020 3:43 PM . Narrative 03/24/2020 3:43 PM MANAGER RELATIONSHIP EXAMINATION: Complete abdominal sonogram HISTORY: 54-year-old female [...] 03/24/2020 3:43 PM . Erma Neri MD ORDERABLES documented in this encounter Visit Diagnoses Diagnosis Abnormal laboratory test result Other abnormal clinical finding documented in this encounter Care Teams Larder Cook Relationship Specialty Start Date End Date Asher Garrison MD [address] [facility] [place] [phone] PCP - General 08/25/18 05/02/21 documented as of this encounter
--- OUTSIDE RECORDS SUMMARY | 2024-04-25 14:06 | XMS_ITS | Encounter Summary ---
Author Organization [facility] Address [address] [place] [address] Care Team Providers Care Dock Worker Name Role Phone Asher Garrison MD Primary Care Provider +1 -[phone] Encounter Details Date Type Department Care Team (Latest Contact Info) Description 03/20/2020 Travel Social History Tobacco Use Types Packs/Day [...] COVID-19? No / Unsure 03/20/2020 8:48 AM WEAPONS SPECIALIST documented as of this encounter Plan of Treatment Upcoming Encounters Date Type Department Care Team (Late st Contact Info) Description 06/02/2024 10:30 AM WEAPONS SPECIALIST Office Visit [facility] - Orthopedic Surgery [facility] [place] [address] Kevin Britton MD 1031 [facility] 280 [place] [address] 08/10/2024 1:00 PM CDT Office Visit [facility]ician Group - SHOW DOG TRAINER [address] [place] [phone] Daja Mir MD [address] [facility] [place] [address] 10/26/2024 1:00 PM CDT Office Visit [facility] - Hematology/Oncology 3655 [place] [phone] Elizabeth Garcia MD 3667 [facility] [address] 3 [place] [address] 01/17/2025 12:30 PM CDT Procedure visit [facility]ician Group - GI 1225 [facility], [place] [address] 01/17/2025 1:00 PM CDT Office Visit [facility]ician Group - GI 1225 [facility], [place] [address] Marlena Mccoy, AVP-TECH BRAZER TESTER [address] [place] [address] [facility] [place] [address] documented as of this encounter Goals Goal Patient Goal Type Associated Problems Recent Progress Patient-Stated? Author Mobility General On track(05/12/19 21 9:08 AM WEAPONS SPECIALIST) Tika Cunha RN Note: Expected end date: 05/05/2019 The goal is to maintain or improve your mobility at the optimum level for you. Interventions: documented as of this encounter Visit Diagnoses Not on filedocumented in this encounter Care Teams Dock Worker Relationship Specialty Start Date End Date Asher Garrison MD [address] [place] [phone] PCP - General 08/25/18 05/02/21 documented as of this encounter
--- OUTSIDE RECORDS SUMMARY | 2024-04-25 14:06 | XMS_ITS | Encounter Summary ---
Author Organization [facility] Address [address] [facility] [place] [address] Care Team Providers Care Supervisor Throwing Department Name Role Phone Asher Garrison MD Primary Care Provider [phone] [phone] Reason for Visit * Reason Comments Refill Request Encounter Details Date Type Department Care Team ([facility] Contact Info) Description 02/14/2020 Refill [facility] Orthopedic Surgery [address] [place] [address] Kevin Britton MD [address] [place] [address] Refill Request Social History Tobacco Use Types [...] Upcoming Encounters Date Type Department Care Team ([facility] Contact Info) Description 06/02/2024 10:30 AM SUPERVISOR BENZENE REFINING Office Visit [facility] - Orthopedic Surgery [address] [place] [phone] Kevin Britton MD [address] [place] [address] 280 [place] [address] 08/10/2024 1:00 PM CDT Office Visit [facility] - SENIOR LEAD SOFTWARE ENGINEER 1031 [facility] 400 [place] [address] Daja Mir MD 5701 [facility] [place] [address] 10/26/2024 1:00 PM CDT Office Visit [facility] - Hematology/Oncology [address] [place] [phone] Elizabeth Garcia MD 3665 [facility] 3 [place] [address] 01/17/2025 12:30 PM CDT Procedure visit [facility] [place] [address] [place] [address], [facility] [place] [phone] 01/17/2025 1:00 PM CDT Office Visit [facility] - GI [address] [place] [address], [place] [phone] Marlena Mccoy, ANIMAL FEEDER-STOCK RAISER [address] [place] [address] [facility] [place] [address] documented as of this encounter Goals Goal Patient Goal Type Associated Problems Recent Progress Patient-Stated? Author Mobility General On track(05/12/19 9:08 AM SUPERVISOR BENZENE REFINING) Tika Cunha, RN Note: Expected end date: 05/05/2019 The goal is to maintain or improve your mobility at the optimum level for you. Interventions: documented as of this encounter Visit Diagnoses Diagnosis Primary osteoarthritis of left knee Primary localized osteoarthrosis, lower leg documented in this encounter Care Teams Supervisor Throwing Department Relationship Specialty Start Date End Date Asher Garrison MD 4938 [place] [address] PCP - General 08/25/18 05/02/21 documented as of this encounter
--- OUTSIDE RECORDS SUMMARY | 2024-04-25 14:06 | XMS_ITS | Encounter Summary ---
Author Organization [facility] Address [address] [facility] [place] [address] Care Team Providers Care Aircraft Delivery Checker Name Role Phone Asher Garrison MD Primary Care Provider [phone] [phone] Encounter Details Date Type Department Care Team (Latest Contact Info) Description 03/24/2020 Travel Social History Tobacco Use Types Packs/Day [...] COVID-19? No / Unsure 03/24/2020 2:29 PM MERCHANDISE SHOPPER documented as of this encounter Plan of Treatment Upcoming Encounters Date Type Department Care Team (Late st Contact Info) Description 06/02/2024 10:30 AM MERCHANDISE SHOPPER Office Visit [facility] - Orthopedic Surgery [facility]1 [place] [address] Kevin Britton MD [address] [facility] 280 [place] [address] 08/10/2024 1:00 PM CDT Office Visit [facility] Group - CLOSING MANAGER [address] [place] [address] Daja Mir MD 5701 [facility] [place] [address] 10/26/2024 1:00 PM CDT Office Visit [facility] - Hematology/Oncology 3655 [place] [phone] Elizabeth Garcia MD 366[address] [facility] [address] 3 [place] [address] 01/17/2025 12:30 PM CDT Procedure visit [facility] - GI 1225 [facility], [place] [address] 01/17/2025 1:00 PM CDT Office Visit [facility] - GI 1225 [facility], [place] [address] Marlena Mccoy, PALLIATIVE CARE NURSE PRACTITIONER-WARP PREPARER [address] [place] [address] [facility] [place] [address] documented as of this encounter Goals Goal Patient Goal Type Associated Problems Recent Progress Patient-Stated? Author Mobility General On track(05/12/19 21 9:08 AM MERCHANDISE SHOPPER) Tika Cunha RN Note: Expected end date: 05/05/2019 The goal is to maintain or improve your mobility at the optimum level for you. Interventions: documented as of this encounter Visit Diagnoses Not on filedocumented in this encounter Care Teams Aircraft Delivery Checker Relationship Specialty Start Date End Date Asher Garrison MD [address] [place] [address] PCP - General 08/25/18 05/02/21 documented as of this encounter
--- OUTSIDE RECORDS SUMMARY | 2024-04-25 14:07 | XMS_ITS | Encounter Summary ---
Author Organization [facility] Address [address] [place] [address] Care Team Providers Care Hand Tool Filer Name Role Phone Asher Garrison MD Primary Care Provider [phone] [phone] Reason for Visit * Reason Comments Follow-up Encounter Details Date Type Department Care Team (Latest Contact Info) Description 02/01/2020 11:00 AM CDT Office Visit [facility] - Orthopedics [address] [place] [phone] Newton Britton MD [facility] [address] [phone] Primary osteoarthritis of left knee (Primary Dx) [...] Progress Notes * Newton Britton MD - 02/01/2020 11:11 AM CDT Patient returns for repeat left knee injection Physical exam: Examination left knee reveals intact skin without signs of infection X-rays: None obtained Assessment: Left knee osteoarthritis here for repeat injection Plan: We will proceed with repeat left knee injection today. Please see the procedure note for further details. We will see her back as needed. documented in this encounter Procedure Notes * Newton Britton MD - 02/01/2020 11:12 AM CDTAssociated Order(s): PROC INJECTION JOINT (SMALL/INTERMED/MAJOR) Procedure(s): MI DRAIN/INJECT LARGE JOINT/BURSA Pre-Procedure Diagnose(s): Primary osteoarthritis [...] procedure well. Remainder of plan per note. Newton Britton MD 02/01/2020 11:13 AM documented in this encounter Miscellaneous Notes * Addendum Note - Newton Britton MD - 02/01/2020 11:13 AM CDTAddended by: NEWTON BRITTON on: 02/01/2020 11:13 AM Modules accepted: Orders documented in this encounter Plan of Treatment Upcoming Encounters Date Type Department Care Team (Late st Contact Info) Description 06/02/2024 10:30 AM AUTHOR'S AGENT Office Visit [facility] - Orthopedic Surgery 1031 [place] [phone] Newton Britton MD 1031 [facility] 280 [place] [address] 08/10/2024 1:00 PM CDT Office Visit [facility] - MORTGAGE ACCOUNTING CLERK 1031 [facility] [address] [place] [phone] Daja Mir MD 5706 [place] [address] 10/26/2024 1:00 PM CDT Office Visit [facility] - Hematology/Oncology 3655 [place] [phone] Elizabeth Garcia MD 3665 [facility] 3 [place] [address] 01/17/2025 12:30 PM CDT Procedure visit [facility] - GI [address] [place] [phone] 01/17/2025 1:00 PM CDT Office Visit [facility] - GI [address] [place] [phone] Marlena Mccoy, BOOKKEEPING CLERKS SUPERVISOR-MEN'S DESIGNER [address] [place] [address] [facility] [place] [address] documented as of this encounter Goals Goal Patient Goal Type Associated Problems Recent Progress Patient-Stated? Author Mobility General On track(05/12/19 21 9:08 AM AUTHOR'S AGENT) Tika Cunha, RN Note: Expected end date: 05/05/2019 The goal is to maintain or improve your mobility at the optimum level for you. Interventions: documented as of this encounter Procedures Procedure Name Priority Date/Time Associated Diagnosis Comments MI DRAIN/INJECT LARGE JOINT/BURSA Routine 02/01/2020 11:12 AM CDT Primary osteoarthritis of left knee documented in this encounter Results * MI DRAIN/INJECT LARGE JOINT/BURSA (02/01/2020 11:12 AM CDT) Narrative Newton Britton MD - 02/01/2020 11:12 AM CDT Newton Britton MD ? 02/01/2020 11:13 AM Orthopaedic [...] procedure well. Remainder of plan per note. Newton Britton MD 02/01/2020 11:13 AM Newton Britton MD PROCEDURE/MINOR ALCON GICAL [...] 6 mL, Infiltration, ONCE, 1 dose, On 02/01/20 at 1130 $ Given 02/01/2020 1:18 PM CDT 6 mL Left Knee triamcinolone acetonide (KENALOG-40) injection 80 mg 80 mg, Intramuscular, ONCE, 1 dose, On Tu02/01/20 at 1130, Shake well before using. $ Given 02/01/2020 1:18 PM CDT 80 mg Left Knee documented in this encounter Care Teams Hand Tool Filer Relationship Specialty Start Date End Date Asher Garrison MD [address] [place] [address] PCP - General 08/25/18 05/02/21 documented as of this encounter
--- OUTSIDE RECORDS SUMMARY | 2024-04-25 14:07 | XMS_ITS | Encounter Summary ---
Author Organization [facility] Address [address] [place] [address] Care Team Providers Care Freight Flagman Name Role Phone Asher Garrison MD Primary Care Provider [phone] Reason for Visit * Reason Comments Refill Request Encounter Details Date Type Department Care Team ([facility] Contact Info) Description 04/02/2019 Refill [facility] - Orthopedics [address] [facility], [place] [address] Stephanie Reynolds PA-C [address] [place] [address] Refill Request Social History Tobacco Use Types [...] Upcoming Encounters Date Type Department Care Team ([facility] Contact Info) Description 06/02/2024 10:30 AM ONLINE BANKING SPECIALIST Office Visit [facility] - Orthopedic Surgery [address] [place] [address] Kevin Britton MD [address] [place] [address] 08/10/2024 1:00 PM CDT Office Visit [facility] - FILL PLANT OPERATOR [address] [facility] [address] [place] [phone] Daja Mir MD [address] [facility] [place] [address] 10/26/2024 1:00 PM CDT Office Visit [facility] - Hematology/Oncology [address] [place] [phone] Elizabeth Garcia MD [address] [facility] 3 [place] [address] 01/17/2025 12:30 PM CDT Procedure visit [facility] - GI [address] [facility], [place] [phone] 01/17/2025 1:00 PM CDT Office Visit [facility] - GI [address] [place] [address], [place] [phone] Marlena Mccoy, AUTO TECHNICIAN MECHANIC-PROPOSAL REP [address] [place] [address] [facility] [place] [address] documented as of this encounter Goals Goal Patient Goal Type Associated Problems Recent Progress Patient-Stated? Author Mobility General On track(05/12/19 21 9:08 AM ONLINE BANKING SPECIALIST) Tika Cunha, SABRINA Note: Expected end date: 05/05/2019 The goal is to maintain or improve your mobility at the optimum level for you. Interventions: documented as of this encounter Visit Diagnoses Diagnosis Primary osteoarthritis of left knee Primary localized osteoarthrosis, lower leg documented in this encounter Care Teams Freight Flagman Relationship Specialty Start Date End Date Asher Garrison MD [address] [place] [phone] PCP - General 08/25/18 05/02/21 documented as of this encounter
--- OUTSIDE RECORDS SUMMARY | 2024-04-25 14:07 | XMS_ITS | Encounter Summary ---
Author Organization [facility] Address [address] [place] [address] Care Team Providers Care Sampler Ovens Name Role Phone Asher Garrison MD Primary Care Provider [phone] Reason for Visit * Reason Comments Pain Knee left knee pain/NKI Encounter Details Date Type Department Care Team (Latest Contact Info) Description 12/07/2018 1:30 PM CDT Office Visit [facility] - Orthopedics [address] [facility], [facility] [place] [address] Stephanie Reynolds PA-C [address] [place] [address] Primary osteoarthritis of left knee (Primary Dx) Social History Tobacco Use Types Packs/Day Years Used Date Smoking Tobacco: Never Smokeless Tobacco: Never Sex and Gender Information Value Date Recorded Sex Assigned at Not on file Gender Identity Not on file Sexual Orientation Not on file documented as of this encounter Last Filed Vital Signs Vital Sign Reading Time Taken Comments Blood Pressure - - Pulse - - Temperature - - Respiratory Rate - - Oxygen Saturation - - Inhaled Oxygen Concentration - - Weight 93.9 kg (207 lb) 12/07/2018 1:38 PM CDT Height 170.2 cm (5' 7 ) 12/07/2018 1:38 PM CDT Body Mass Index 32.42 12/07/2018 1:38 PM CDT documented in this encounter Patient Instructions * Patient Instructions* Stephanie Reynolds PA-C - 12/07/2018 2:15 PM CDT [facility] Department of Orthopaedic Surgery Orthopaedic Clinic Discharge Form Milagros Torres 12/07/2018 Thank you for coming in to see us today for your diagnosis of: Primary osteoarthritis of left knee - Plan: PROCDOC LARGE JOINT INJECTION Activity Restrictions: as tolerated Medications Prescribed: meloxicam Special Studies/Labs to be completed: none We recommend that you try the following for your injury: icing 20 minutes at a time 3 to 5 times daily, tylenol, anti-inflammatory medications, corticosteroid injection given in clinic today, physical therapy exercises, activity modification, over the counter vitamin D supplementation and glucosamine/chondroitin sulfate and weight loss Recommend 2000 units Vitamin D daily for bone health May try 1500 to 2000 mg Glucosamine/chondriotin/MSM daily for joint pain Medications over the counter: - Acetaminophen (Tylenol) 500mg 1-2 tablets every 6 hours as needed for pain, not exceeding daily total of 3000mg. Please note that narcotic medications can consist of same ingredient. - Ibuprofen (Advil) 200mg 1-3 tablets every 8 hours as needed for pain, not exceeding daily total of 2400mg OR Naproxen (Aleve) 220mg 1-2 tablets every 12 hours as needed for pain. Take with food or milk to prevent stomach upset. Do not take any other NSAIDs while taking this medication. Follow up: as needed. Injections may be repeated in 3-4 months if needed If non-operative management, including physical therapy/home exercises, activity modification, heat/icing, NSAIDs and/or tylenol, corticosteroid injections, weight loss, fails to provide adequate relief of symptoms, follow up with Dr. Reid, Dr. Britton or Dr. Valdivia to further discuss operative vs non-operative intervention Milagros Torres had a clinic appointment on 12/07/2018. Please contact our office to make an appointment if your symptoms are not improving, or if something about your condition significantly changes. [facility] Orthopaedic office contact information: [facility] ; select option 1 to make, change or cancel an appointment OR leave voicemail with Tika Pope RN at [phone] with any questions/concerns. [address] [place] [address] [place] [address] [place] [address], [address], [place] [address] documented in this encounter Progress Notes * Stephanie Reynolds PA-C - 12/07/2018 1:52 PM CDT [facility] [address] [id number] Dept: [phone] Dept Today we had the pleasure of seeing Milagros Torres in our [facility] Orthopaedic Surgery Clinic for Chief Complaint Patient presents with ??? Pain Knee left knee pain/NKI Milagros Torres is a 53 year old female who has left knee pain. Pain is located to the medial knee. The patient first noted symptoms a few months ago. It was related to NKI. Associated with pain are symptoms of instability and swelling. Symptoms are exacerbated by weight bearing activity. Factors which relieve the pain include rest. she is taking ibuprofen prn for pain. she ambulates with out assistance. she has recently completed physical therapy. she has not done knee steroid injection. 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 Breast cancer ??? Depression with anxiety ??? Hypertension Past Surgical History: Procedure Laterality Date ??? Breast Lumpectomy Left 09/04/2015 With sentinel node biopsy performed by Dr. Brittni Knight ??? Section 05/1990 Family History Problem Relation Age of Onset ??? Cancer - Lung Mother ??? Cancer - Breast Sister History Smoking Status ??? Never Smoker Smokeless Tobacco ??? Never Used Focused ROS includes: Enodcrine Diabetes Mellitus: Not Applicable Thyroid disorders: no Pulmonary COPD: no Asthma: no Other: negative Cardiac History of CHF: no History of MT: no Previous PCI / PTCA: no Previous Cardiac Surgery: no Hypertension requires meds: no Vascular Known peripheral vascular disease: no Central Nervous System History of TIA's: no CVA: No History of Cancer of any kind: yes: breast cancer Bleeding disorders: no Other significant health issues are: negative Physical Examination Vitals: 12/07/18 1338 Weight: 93.9 kg (207 lb) Height: 1.702 m (5' 7 ) Estimated body mass index is 32.42 kg/(m^2) as calculated from the following: Height as of this encounter: 1.702 m (5' 7 ). Weight as of this encounter: 93.9 kg (207 lb). she is awake, alert, oriented and they are pleasant to speak with. There is no pain with rotation of the right or left hip. There is a negative straight leg raise bilaterally. Gait is limping. Evaluation of the uninjured right knee notes no skin lesions, neurovascularly intact. There is no tendernes s/swelling/deformity. Ligamentously stable. Full range of motion. Good strength. Left lower extremity: There is an effusion. There is tenderness of the medial joint line. Umu is negative. There is grade 0 varus laxity . Thereis grade 0 valgus laxity. There is grade 0 posterior sag. McMurrays test is n/a. ROM is from 0 degrees of extension to 120 degreesof flexion. The patient does not have significant pain with these ranges of motion. The extensor mechanism is intact. There is not a palpable gap in the patellar and quadriceps tendons. The patellar tracks well. Patellar apprehension test is negative. Quadriceps strength is 5/5. There is not quadriceps atrophy present. intactEHL/FHL/GS/AT, Sensation: intact to light touch distally in L4, L5, S1 distributions, Brisk capillary refill (<2 sec). Erythema: none. Warmth: none. Crepitus: none. Radiographs were reviewed by me in office: plain films left knee: mild tricompartmental degenerative changes, most noted in medial compartment . Impression: Left knee OA Plan: The patient was counseled as to her diagnosis and demonstrated understanding. 1. Restrictions: none 2. Left knee corticosteroid injection was given in office. Recommend icing for 20 minutes 3-5 timesa day for the first 48 hours and then as needed for pain. 3. continue physical therapy exercises at home as tolerated. Discussed importance of developing a home exercise program 4. Medication prescribed: meloxicam. Continue NSAIDs and/or tylenol as needed for pain. 5. Patient was counseled as to the following conservative interventions: - Recommend 2000 units Vitamin D daily for bone health - May try 1500 to 2000 mg Glucosamine/chondriotin/MSM daily for joint pain. - The patient was counseled as to the benefits of weight loss. cessation - she was informed about the use of ambulatory assistive devices. 6. F/U as needed. Injections may be repeated in 3-4 months if needed. If non- operative management, including physical therapy/home exercises, activity modification, heat/icing, NSAIDs and/or tylenol,corticosteroid injections, weight loss, fails to provide adequate relief of symptoms, follow up with Dr. Reid, Dr. Britton or Dr. Valdivia to further discuss operative vs non-operative intervention Stephanie Reynolds PA-C documented in this encounter Procedure Notes * Stephanie Reynolds PA-C - 12/07/2018 5:44 PM CDTAssociated Order(s): PROCDOC LARGE JOINT INJECTION Procedure(s): KS DRAIN/INJECT LARGE JOINT/BURSA Pre-Procedure Diagnose(s): Primary osteoarthritis [...] note. Stephanie Reynolds PA-C 12/07/2018 5:44 PM documented in this encounter Plan of Treatment Upcoming Encounters Date Type Department Care Team (Late st Contact Info) Description 06/02/2024 10:30 AM CONTRACT FORESTER [facility] [address] [place] [phone] Kevin Britton MD 10[address] [facility] 280 [place] [address] 08/10/2024 1:00 PM CDT Office Visit [facility] - ACCOUNTING TEACHER [address] [facility] 400 [place] [phone] Daja Mir MD [address] [facility] [place] [address] 10/26/2024 1:00 PM CDT Office Visit [facility] - Hematology/Oncology [address] [place] [address] Elizabeth Garcia MD [address] [facility] 3 [place] [address] 01/17/2025 12:30 PM CDT Procedure visit [facility] - GI [address] [place] [phone] 01/17/2025 1:00 PM CDT Office Visit [facility] - GI [address] [place] [phone] Marlena Mccoy, CHIEF CLERK-SOLUTION DEVELOPER [address] [place] [address] [address] [place] [address] documented as of this encounter Procedures Procedure Name Priority Date/Time Associated Diagnosis Comments KS DRAIN/INJECT LARGE JOINT/BURSA Routine 12/07/2018 5:44 PM CDT Primary osteoarthritis of left knee documented in this encounter Results * KS DRAIN/INJECT LARGE JOINT/BURSA (12/07/2018 5:44 PM CDT) [...] PM Stephanie Reynolds PA-C PROCEDURE/MINOR SURGICAL ORDERABLES documented in this encounter Visit Diagnoses Diagnosis Primary osteoarthritis of left knee- Primary Primary localized osteoarthrosis, lower leg documented in this encounter Administered Medications Inactive Administered Medications - up to 3 most recent administrations Medication Order MAR Action Action Date Dose Rate Site lidocaine (XYLOCAINE MPF) 1 % injection 6 mL 6 mL, Intra-articular, ONCE, 1 dose, On Fri12/07/18 at 1430 $ Given 12/07/2018 3:29 PM CDT 6 mL Left Knee triamcinolone acetonide (KENALOG-40) injection 80 mg 80 mg, Intra-articular, ONCE, 1 dose, On Fri12/07/18 at 1430, Shake well before using. $ Given 12/07/2018 3:30 PM CDT 80 mg Left Knee documented in this encounter Care Teams Sampler Ovens Relationship Specialty Start Date End Date Asher Garrison MD [address] [place] [phone] PCP - General 08/25/18 05/02/21 documented as of this encounter
--- OUTSIDE RECORDS SUMMARY | 2024-04-25 14:07 | XMS_ITS | Encounter Summary ---
Author Organization [facility] Address [address] [place] [address] Care Team Providers Care Chief Clinical Dietitian Name Role Phone Asher Garrison MD Primary Care Provider [phone] Encounter Details Date Type Department Care Team (Late Contact Info) Description 09/10/2019 Orders Only [facility] Hematology and Oncology-[address] [address] Edna Verde, RN Malignant neoplasm of nipple of left breast in female, unspecified estrogen receptor status (HCC) ; Vitamin D deficiency, unspecified Social History [...] (Late Contact Info) Description 06/02/2024 10:30 AM CAPTAIN FIRE PREVENTION BUREAU Office Visit [facility] - Orthopedic Surgery [facility] [place] [phone] Kevin Britton MD [address] [address] 08/10/2024 1:00 PM CDT Office Visit [facility] - COMMERCIAL STRIPPER [address] [place] [phone] Daja Mir MD [address] [facility] [place] [address] 10/26/2024 1:00 PM CDT Office Visit [facility] - Hematology/Oncology [address] [place] [phone] Elizabeth Garcia MD [address] [facility] [address] [place] [address] 01/17/2025 12:30 PM CDT Procedure visit [facility] - GI [address] [facility], [place] [phone] 01/17/2025 1:00 PM CDT Office Visit [facility] - GI [address] [facility], [facility] [place] [phone] Marlena Mccoy, CATTLE MANAGER-VP ANCILLARY [address] [place] [address] [facility] [place] [address] documented as of this encounter Goals Goal Patient Goal Type Associated Problems Recent Progress Patient-Stated? Author Mobility General On track(05/12/19 9:08 AM CAPTAIN FIRE PREVENTION BUREAU) Tika Cunha, SABRINA Note: Expected end date: 05/05/2019 The goal is to maintain or improve your mobility at the optimum level for you. Interventions: documented as of this encounter Results * VITAMIN D 25-HYDROXY (09/13/2019 2:12 PM CDT) Vitamin D, 25 Hydroxy 34.1 See comment: ng/mL 09/13/2019 3:07 PM CDT [facility] Comment: The recommendations for [...] / Unknown 09/13/2019 2:12 PM CDT 09/13/2019 2:23 PM CDT Erma Neri MD LAB - CHEMISTRY LD [place] [facility] Organization Address City/State/ZIP Co de Phone Number [address] [phone] * (ABNORMAL) COMPREHENSIVE METABOLIC PANEL (09/13/2019 2:12 PM CDT) BUN 14 7 - 26 mg/dL 09/13/2019 2:47 PM CDT [facility] Creatinine 1.1 0.6 - 1.2 mg/dL 09/13/2019 2:47 PM CDT [facility] Sodium 141 136 - 145 mmol/L 09/13/2019 2:47 PM CDT [facility] Potassium 3.7 3.5 - 4.5 mmol/L 09/13/2019 2:47 PM CDT [facility] Chloride 106 98 - 107 mmol/L 09/13/2019 2:47 PM CDT [facility] CO2 24 22 - 29 mmol/L 09/13/2019 2:47 PM CDT [facility] Glucose 129(H) 70 - 115 mg/dL 09/13/2019 2:47 PM [facility] Calcium 9.4 8.4 - 10.2 mg/dL 09/13/2019 2:47 PM [facility] Protein Total 7.2 6.0 - 8.3 g/dL 09/13/2019 2:47 PM [facility] Albumin 3.8 3.4 - 5.0 g/dL 09/13/2019 2:47 PM [facility] Bilirubin Total 0.2 0.2 - 1.2 mg/dL 09/13/2019 2:47 PM [facility] Alkaline Phosphatase 69 40 - 150 Units/L 09/13/2019 2:47 PM [facility] ALT 39 0 - 55 Units/L 09/13/2019 2:47 PM [facility] AST 45(H) 5 - 34 Units/L 09/13/2019 2:47 PM [facility] Anion Gap 15 8 - 18 09/13/2019 2:47 PM [facility] BUN/Creatinine Ratio 13 7 - 23 09/13/2019 2:47 PM [facility] Osmolality Calculated 294 270 - 300 mOsm/kg 09/13/2019 2:47 PM [facility] Albumin/Globulin Ratio 1.1 1.1 - 2.3 09/13/2019 2:47 PM [facility] eGFR 52(L) >60 mL/min/1.7 3 m2 09/13/2019 2:47 PM [facility] Blood BLOOD SPECIMEN / Unknown Lab Venipuncture / Unknown 09/13/2019 2:12 PM CDT 09/13/2019 2:23 PM T Erma Neri MD LAB - CHEMISTRY LD [place] [facility] Organization Address City/State/ZIP Co de Phone Number [facility] [address] [phone] * CBC WITH DIFFERENTIAL (09/13/2019 2:12 PM CDT) WBC 9.8 3.5 - 10.5 10? 3 /uL 09/13/2019 2:25 PM [facility] RBC 4.41 3.90 - 5.00 10? 6 /uL 09/13/2019 2:25 PM [facility] Hemoglobin 13.3 12.0 - 15.5 g/dL 09/13/2019 2:25 PM [facility] Hematocrit 40.2 35.0 - 45.0 % 09/13/2019 2:25 PM [facility] MCV 91.2 81.0 - 97.0 fL 09/13/2019 2:25 PM [facility] MCH 30.2 28.0 - 34.0 pg 09/13/2019 2:25 PM [facility] MCHC 33.1 32.0 - 36.0 g/dL 09/13/2019 2:25 PM [facility] Platelet Count 162 150 - 400 10? 3 /uL 09/13/2019 2:25 PM [facility] RDW-SD 41.1 36.0 - 50.0 fL 09/13/2019 2:25 PM [facility] RDW-CV 12.3 11.2 - 14.8 % 09/13/2019 2:25 PM [facility] MPV 11.0 9.3 - 12.8 fL 09/13/2019 2:25 PM [facility] nRBC Absolute 0.00 0 10? 3 /uL 09/13/2019 2:25 PM [facility] nRBC Auto 0.0 0 /100 WBC 09/13/2019 2:25 PM [facility] Neutrophils % 63.5 35.0 - 70.0 % 09/13/2019 2:25 PM [facility] Lymphocytes % 29.0 19.7 - 55.1 % 09/13/2019 2:25 PM [facility] Monocytes % 5.6 3.0 - 15.0 % 09/13/2019 2:25 PM [facility] Eosinophils % 1.3 0.0 - 6.0 % 09/13/2019 2:25 PM [facility] Basophil % 0.3 0.0 - 1.5 % 09/13/2019 2:25 PM [facility] Neutrophils Absolute 6.2 1.6 - 7.0 10? 3 /uL 09/13/2019 2:25 PM CDT [facility] Lymphocyte Absolute 2.8 0.8 - 2.9 10? 3 /uL 09/13/2019 2:25 PM CDT [facility] Monocytes Absolute 0.55 0.14 - 0.66 10? 3 /uL 09/13/2019 2:25 PM CDT [facility] Eosinophils Absolute 0.13 0.00 - 0.45 10? 3 /uL 09/13/2019 2:25 PM CDT [facility] Basophils Absolute 0.03 0.00 - 0.06 10? 3 /uL 09/13/2019 2:25 PM CDT [facility] Immature Granulocytes % 0.3 0.0 - 1.0 % 09/13/2019 2:25 PM CDT [facility] Blood BLOOD SPECIMEN / Unknown Lab Venipuncture / Unknown 09/13/2019 2:12 PM CDT 09/13/2019 2:23 PM CDT Erma Neri MD LAB - HEMATOLOGY ORD ERABLES [facility] [address] [phone] documented in this encounter Visit Diagnoses Diagnosis Malignant neoplasm of nipple of left breast in female, unspecified estrogen receptor status (HCC)- Primary Vitamin D deficiency, unspecified documented in this encounter Care Teams Chief Clinical Dietitian Relationship Specialty Start Date End Date Asher Garrison MD [address] [place] [phone] PCP - General 08/25/18 05/02/21 documented as of this encounter
--- OUTSIDE RECORDS SUMMARY | 2024-04-25 14:07 | XMS_ITS | Encounter Summary ---
Author Organization [facility] Address [address] [place] [address] Care Team Providers Care Office Mail Clerk Name Role Phone Asher Garrison MD Primary Care Provider [phone] Reason for Visit * Reason Comments Pain Knee left knee injection Encounter Details Date Type Department Care Team (Latest Contact Info) Description 03/10/2019 8:30 AM JOURNEYMAN PAINTER Office Visit [facility] - Orthopedics [address] [facility], [place] [address] Stephanie Reynolds PA-C [address] [place] [address] Primary osteoarthritis of left knee [...] - Inhaled Oxygen Concentration - - Weight 95.7 kg (211 lb) 03/10/2019 8:41 AM JOURNEYMAN PAINTER Height 170.2 cm (5' 7 ) 03/10/2019 8:41 AM JOURNEYMAN PAINTER Body Mass Index 33.05 03/10/2019 8:41 AM JOURNEYMAN PAINTER documented in this encounter Patient Instructions * Patient Instructions* Stephanie Reynolds PA-C - 03/10/2019 8:37 AM JOURNEYMAN PAINTER [facility] Department of Orthopaedic Surgery Orthopaedic Clinic Discharge Form Milagros Torres 03/10/2019 Thank you for coming in to see us today for your diagnosis of: Primary osteoarthritis of left knee Activity Restrictions: as tolerated Medications Prescribed: none Special Studies/Labs to be completed: none We [...] Milagros Torres had a clinic appointment on 03/10/2019. Please contact our office to make an appointment if your symptoms are not improving, or if something about your condition significantly changes. [facility] Orthopaedic office contact information: [facility] ; select option 1 to make, change or cancel an appointment OR leave voicemail with Tika Pope RN at [phone] with any questions/concerns. [address] [place] [address] [facility] [address] [place] [address], [address] [address] NEYMAN PAINTER documented in this encounter Progress Notes * Stephanie Reynolds PA-C - 03/10/2019 8:35 AM CST [facility] [address] [facility] [address] Dept: [phone] Dept Today we had the pleasure of seeing Milagros Torres in our [facility] Orthopaedic Surgery Clinic for Chief Complaint Patient presents with ??? Pain Knee left knee injection Milagros Torres is a 53 year old female who has left knee pain due to OA. She was last seen 3 monthsago and underwent left knee corticosteroid injection. She presents today requesting repeat knee corticosteroid injection. Pain is located to the medial knee. Associated with pain are symptoms of instability and swelling. Symptoms are exacerbated by weight bearing activity. Factors which relieve thepain include rest. she is taking ibuprofen prn for pain. she ambulates with out assistance. she hasrecently completed physical therapy. she denies changes in health since last appt. 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 Breast cancer ??? Depression with anxiety ??? Hypertension Past Surgical History: Procedure Laterality Date ??? Breast Lumpectomy Left 09/04/2015 With sentinel node biopsy performed by Dr. Brittni Knight ??? Section 05/1990 Family History Problem Relation Age of Onset ??? Cancer - Lung Mother ??? Cancer - Breast Sister Social History Tobacco Use Smoking Status Never Smoker Smokeless Tobacco Never Used Focused ROS includes: Enodcrine Diabetes Mellitus: Not Applicable Thyroid disorders: no Pulmonary COPD: no Asthma: no Other: negative Cardiac History of CHF: no History of RI: no Previous PCI / PTCA: no Previous Cardiac Surgery: no Hypertension requires meds: no Vascular Known peripheral vascular disease: no Central Nervous System History of TIA's: no CVA: No History of Cancer of any kind: yes: breast cancer Bleeding disorders: no Other significant health issues are: negative Physical Examination There were no vitals filed for this visit. Estimated body mass index is 32.42 kg/m?? as calculated from the following: Height as of 12/07/18: 1.702 m (5' 7 ). Weight as of 12/07/18: 93.9 kg (207 lb). she is awake, [...] Good strength. Left lower extremity: There is not an effusion. There is tenderness of the medial joint line. Umu is negative. There is grade 0 varus laxity . Thereis grade 0 valgus laxity. There is grade 0 posterior sag. McMurrays test is n/a. ROM is from 0 degrees of extension to 120 degreesof flexion. The patient does not have significant pain with these ranges of motion. The extensor mechanism is intact.There is not a palpable gap in the patellar and quadriceps tendons. The patellar tracks well. Patellar apprehension test is negative. Quadriceps strength is 5/5. There is not quadriceps atrophy present. intactEHL/FHL/GS/AT, Sensation: intact to light touch distally in L4, L5, S1 distributions, Brisk capillary refill (<2 sec). Erythema: none. Warmth: none. Crepitus: none. Radiographs were reviewed by me in office: plain films left knee (12/21): mild tricompartmental degenerative changes, most noted in medial compartment . Impression: Left knee OA Plan: The patient was counseled as to her diagnosis and demonstrated understanding. 1. Restrictions: WBAT 2. Left knee corticosteroid injection was given in office. Recommend icing for 20 minutes 3-5 timesa day for the first 48 hours and then as needed for pain. 3. continue physical therapy exercises at home as tolerated. Discussed importance of developing a home exercise program 4. Medication prescribed: none. Continue NSAIDs and/or tylenol as needed for [...] operative vs non-operative intervention Stephanie Reynolds PA-C NEYMAN PAINTER documented in this encounter Procedure Notes * Stephanie Reynolds PA-C - 03/10/2019 8:57 AM CSTAssociated Order(s): PROCDOC LARGE JOINT INJECTION Procedure(s): MD DRAIN/INJECT LARGE JOINT/BURSA Pre-Procedure Diagnose(s): Primary osteoarthritis [...] note. Stephanie Reynolds PA-C 03/10/2019 8:57 AM NEYMAN PAINTER documented in this encounter Plan of Treatment Upcoming Encounters Date Type Department Care Team (Late st Contact Info) Description 06/02/2024 10:30 AM JOURNEYMAN PAINTER Office Visit [facility] - Orthopedic Surgery [address] [place] [phone] Kevin Britton MD [address] [facility] [address] [place] [address] 08/10/2024 1:00 PM CDT Office Visit [facility] - KST OPERATOR [address] [facility] [address] [place] [phone] Daja Mir MD [address] [facility] [place] [address] 10/26/2024 1:00 PM CDT Office Visit [facility] - Hematology/Oncology [address] [place] [phone] Elizabeth Garcia MD [address] [facility] 3 [place] [address] 01/17/2025 12:30 PM CDT Procedure visit [facility] - GI [address] [place] [phone] 01/17/2025 1:00 PM CDT Office Visit [facility] - GI [address] [place] [phone] Marlena Mccoy, TECHNOLOGY LAB TEACHER-HAND HARDENER [address] [place] [address] [facility] [place] [address] documented as of this encounter Goals Goal Patient Goal Type Associated Problems Recent Progress Patient-Stated? Author Mobility General On track(05/12/19 9:08 AM JOURNEYMAN PAINTER) Tika Cunha RN Note: Expected end date: 05/05/2019 The goal is to maintain or improve your mobility at the optimum level for you. Interventions: documented as of this encounter Procedures Procedure Name Priority Date/Time Associated Diagnosis Comments MD DRAIN/INJECT LARGE JOINT/BURSA Routine 03/10/2019 8:57 AM JOURNEYMAN PAINTER Primary osteoarthritis of left knee documented in this encounter Results * MD DRAIN/INJECT LARGE JOINT/BURSA (03/10/2019 8:57 AM JOURNEYMAN PAINTER) Narrative Stephanie Reynolds PA-C - 03/10/2019 8:57 AM JOURNEYMAN PAINTER Stephanie Reynolds PA-C ? 03/10/2019 ??9:05 AM [...] AM Stephanie Reynolds PA-C PROCEDURE/MINOR SURGICAL ORDERABLES documented [...] 6 mL, Intra-articular, ONCE, 1 dose, On Fri03/10/19 at 0915 $ Given 03/10/2019 9:00 AM JOURNEYMAN PAINTER 6 mL Left Knee triamcinolone acetonide (KENALOG-40) injection 80 mg 80 mg, Intra-articular, ONCE, 1 dose, On Fri03/10/19 at 0915, Shake well before using. $ Given 03/10/2019 9:00 AM JOURNEYMAN PAINTER 80 mg Left Knee documented in this encounter Care Teams Office Mail Clerk Relationship Specialty Start Date End Date Asher Garrison MD [address] [place] [phone] PCP - General 08/25/18 05/02/21 documented as of this encounter
--- OUTSIDE RECORDS SUMMARY | 2024-04-25 14:07 | XMS_ITS | Encounter Summary ---
Author Organization [facility] Address [address] [place], [place] [address] [place] [address] Care Team Providers Care Grain Combine Driver Name Role Phone Asher Garrison MD Primary Care Provider [phone] Reason for Visit * Reason Onset Date Comments MEDICATION REFILL 03/23/2019 Encounter Details Date Type Department Care Team (Late Contact Info) Description 03/23/2019 Refill [facility] Hematology and Oncology-[facility] [address] [place] [address] Erma Neri MD 23 [facility] [address] [place] [address] MEDICATION REFILL Social History Tobacco [...] Upcoming Encounters Date Type Department Care Team ([facility] Contact Info) Description 06/02/2024 10:30 AM TRACK LINER OPERATOR Office Visit [facility] - Orthopedic Surgery [address] [place] [phone] Kevin Britton MD 10[address] [facility] [address] [place] [address] 08/10/2024 1:00 PM CDT Office Visit [facility] - PRINTING PRESS MACHINIST [address] [facility] [address] [place] [phone] Daja Mir MD [address] [facility] [place] [address] 10/26/2024 1:00 PM CDT Office Visit [facility] - Hematology/Oncology [address] [place] [phone] Elizabeth Garcia MD 36[address] [facility] 3 [place] [address] 01/17/2025 12:30 PM CDT Procedure visit [facility] - GI [address] [facility] [place] [phone] 01/17/2025 1:00 PM CDT Office Visit [facility] - GI [address] [place] [address], [facility] [place] [phone] Marlena Mccoy, [place] GUIDE-REGISTERED PHARMACIST [address] [place] [address] [facility] [place] [address] documented as of this encounter Goals Goal Patient Goal Type Associated Problems Recent Progress Patient-Stated? Author Mobility General On track(05/12/19 21 9:08 AM TRACK LINER OPERATOR) Tika Cunha, SABRINA Note: Expected end date: 05/05/2019 The goal is to maintain or improve your mobility at the optimum level for you. Interventions: documented as of this encounter Visit Diagnoses Diagnosis Vitamin D deficiency, unspecified- Primary documented in this encounter Care Teams Grain Combine Driver Relationship Specialty Start Date End Date Asher Garrison MD [address] [place] [address] PCP - General 08/25/18 05/02/21 documented as of this encounter
--- OUTSIDE RECORDS SUMMARY | 2024-04-25 14:07 | XMS_ITS | Encounter Summary ---
Author Organization [facility] Address [address] [facility] [place] [address] Care Team Providers Care Educational Coordinator Name Role Phone Asher Garrison MD Primary Care Provider [phone] Encounter Details Date Type Department Care Team (Late st Contact Info) Description 03/15/2019 12:40 PM FRAME STRAIGHTENER Office Visit [facility] Hematology and Oncology[address] [address] Erma Neri MD 23 [facility] [address] [place] [address] Malignant neoplasm of left breast in female, estrogen receptor positive, unspecified site of breast (HCC) (Primary Dx); Elevated SGOT (AST); Encounter for monitoring tamoxifen therapy Social History [...] Sign Reading Time Taken Comments Blood Pressure 151/86 03/15/2019 12:49 PM FRAME STRAIGHTENER Pulse 75 03/15/2019 12:49 PM FRAME STRAIGHTENER Temperature 36.3 ??C (97.4 ??F) 03/15/2019 12:[address] Respiratory Rate 18 03/15/2019 12:49 PM FRAME STRAIGHTENER Oxygen Saturation 98% 03/15/2019 12:49 PM FRAME STRAIGHTENER Inhaled Oxygen Concentration - - Weight 95.9 kg (211 lb 8 oz) 03/15/2019 12:49 PM FRAME STRAIGHTENER Height 170.2 cm (5' 7 ) 03/15/2019 12:49 PM FRAME STRAIGHTENER Body Mass Index 33.13 03/15/2019 12:49 PM FRAME STRAIGHTENER documented in this encounter Progress Notes * Christiano Loyd MD - 03/15/2019 1:29 PM CST [facility] Hematology/Oncology Clinic Date: 03/15/2019 Patient: Milagros Torres Oncologist: Dr. Neri Primary-Care Provider: Asher Garrison MD Chief Complaint/Reason for Visit: Stage I ([id number]) ER+/AL+/HER/2- Left invasive ductal carcinoma History of Present Illness/Interval History: Milagros Torres is a 53 year old female with a history of stage I IDC, HTN, anxiety who presents today for scheduled follow up. She has been on treatment with tamoxifen. Overall she reports doing verywell she has no acute complaints today. Her mood is well controlled. She follows with Ophtho with no signs of cataracts. Her BP is well controlled. Denies fevers, chills, nausea, vomiting, headache, vision changes, shortness of breath, chest pain, cough, abdominal pain, dysuria, melena, leg swelling. Oncologic History: Noted to have an abnormal screening mammogram in June or July of 2015. Referred to [facility], where a left breast biopsy performed on 07/25/15 showed ER+/AL+/HER/2- invasive ductal carcinoma. US-guided FNA of the axillary lymph node was performed at the same time which was negative for metastatic disease. A left partial mastectomy was performed on 09/04/2015 which showed 1.5 cm, grade 2 IDC (pathologic [id number]) with negative margins. [place] lymph node biopsy was negative (0/1). She had a Oncotype DX score of 17. She was premenopausal at the time of diagnosis and started on tamoxifen. Receivedleft accelerated partial breast radiation (3850 cGy) between 10/11-10/20/[address] Thee Larson. She was followed at [facility] by Dr. Kyrie Baltazar where her LFTs were noted to be mildly elevated on a few separate occasions. Since starting tamoxifen, she has not had any periods, but has had a few episodes of spotting. Had a D&C by her barge hand after US showed a thickened endometrial stripe. Negative for carcinoma or hyperplasia. Stage I ([id number]) ER+/AL+/HER/2- Left invasive ductal carcinoma -07/2015: Abnormal mammogram 07/25/15: Breast biopsy showed invasive ductal carcinoma. Both ER and AL had a Lauren score 8/8 and HER/2 [...] 10/11-10/20/15: left partial accelerated breast radiation (3850 cGy) ECOG : 0 Past Medical History: Past Medical History: Diagnosis [...] month Family History: Family History Problem Relation Age of Onset ??? Cancer - Lung Mother ??? Cancer - Breast Sister Her family history is significant for her sister being diagnosed with stage III breast cancer at the age of 54. Later it became metastatic and at the age of 57. Ms. Torres had a negative BRCA 1/2 sequencing and deletion/duplication analysis. Menarche at age 12. Never used oral contraceptives or hormonal replacement therapy. She is a with first at age 21. Never breastfed. ?? Allergies: No Known Allergies Home Medications: Current Outpatient Medications Medication Sig ??? meloxicam (MOBIC) 15 MG tablet Take 1 tablet by mouth once daily ??? tamoxifen (NOLVADEX) 20 MG tablet Take 1 tablet by mouth No current facility-administered medications for this visit. I have reviewed all medications. Review of Systems: Positive symptoms are notated in bold - Constitutional: Fever, chills, sweats, weight loss/gain - HEENT: Sinus drainage, tenderness, congestion. - Cardiovascular: Chest pain, palpitations, orthopnea, dyspnea on exertion - Respiratory: Shortness of breath, asthma, wheezing - Gastrointestinal: Nausea, vomiting, diarrhea, constipation, abdominal pain. - Genitourinary: Dysuria, frequency, urgency - Musculoskeletal: Joint pain, swelling - Neurological: Numbness, tingling, paresthesias. - Endocrine: Heat intolerance, cold intolerance - Psychiatric: Depression, psychosis Vital Signs and Physical Exam: Vitals: 03/15/19 1249 BP: 151/86 Pulse: 75 Resp: 18 Temp: 97.4 ??F (36.3 ??C) SpO2: 98% Weight: 95.9 kg (211 lb 8 oz) Height: 1.702 m (5' 7 ) General: Well developed, well nourished, in no apparent distress Head: Atraumatic, normocephalic Eyes: PERRLA, EOMI Throat: Mucous membranes moist, oropharynx clear Neck: Supple, no lymphadenopathy, no thyromegaly Cardiovascular: Normal rate, regular rhythm, no gallops/rubs/murmurs, S1S2 normal Respiratory: CTAB, non-labored respirations, no wheezes, no rales Abdomen: SNTND, bowel sounds positive Extremities: Appropriately warm, no edema Neurologic: Alert and oriented x 3, no focal neurologic deficits Labs: Recent Labs Component Name 09/10/18 1622 WBC 6.1 RBC 4.03 HGB 12.5 HCT 37.5 MCV 93.1 MCHC 33.3 PLTCOUNT 180 NEUTPCT 52.1 NEUTABS 3.2 Recent Labs Component Name 09/10/18 1622 POTASSIUM 3.9 CO2 24 BUN 17 CREATININE 1.0 CALCIUM 9.3 ALKPHOS 94 ALT 41 AST 46* EGFR 58* No results for input(s): INR in the last 58821 hours. No results for input(s): PTT in the last 07975 hours. Radiology: Pathology: Specimens (From admission, onward) None Assessment and Recommendations: Milagros Torres is a 53 year old female with a history of stage I IDC, HTN, anxiety who presents today for scheduled follow up. Stage I ([id number]) ER+/AL+/HER/2- Left invasive ductal carcinoma 2016 started Tamoxifen: Discussed risks benefits of transitioning to AI. She would like to continueTamoxifen likely for a 10 year course of treatment. This has been very well tolerated. Tamoxifen monitoring:Side effects discussed include but are not limited to menopausal symptoms including hot flashes, mood changes, depression, fluid retention, weight loss, nausea, arthritis, arthralgias, DVT, PE , uterine cancer , cataracts, loss of BMD. - annual abstracter visit or if any vaginal bleeding - monitor lipids - repeat cbc, cmp and lipids annually Hx of elevated AST of 46. - Will recheck today due to mild elevation in the past. She has risk factors for NAFLD. Patient and above recommendations were discussed with Hematology/Oncology attending, Dr. Halle Loyd MD PGY-4 Hematology/Oncology Fellow [facility] E STRAIGHTENER Associated attestation - Erma Neri MD - 03/24/2019 11:57 AM FRAME STRAIGHTENER I have seen and examined the patient with the fellow/resident and I agree with the findings and plan of care as documented by the fellow/resident. Erma Neri MD Principal Clerk Typistphoto checker and assembler Hematology/Oncology [facility] documented in this encounter Plan of Treatment Upcoming Encounters Date Type Department Care Team (Late st Contact Info) Description 06/02/2024 10:30 AM FRAME STRAIGHTENER Office Visit [facility] - Orthopedic Surgery [address] [place] [address] Kevin Britton MD 1031 [facility] [address] [place] [address] 08/10/2024 1:00 PM CDT Office Visit [facility] - HEAD SHIPPER 1031 [facility] [address] [place] [phone] Daja Mir MD 5[address] [facility] [place] [address] 10/26/2024 1:00 PM CDT Office Visit [facility] - Hematology/Oncology [address] [place] [phone] Elizabeth Garcia MD 36[address] [facility] 3 [place] [address] 01/17/2025 12:30 PM CDT Procedure visit [facility] [place] [address] [place] [address], [place] [phone] 01/17/2025 1:00 PM CDT Office Visit [facility] - GI [address] [place] [phone] Marlena Mccoy, DIRECTOR FINANCIAL PLANNING-NAVAL AIRCREWMAN HELICOPTER [address] [place] [address] [place] [address] documented as of this encounter Goals Goal Patient Goal Type Associated Problems Recent Progress Patient-Stated? Author Mobility General On track(05/12/19 21 9:08 AM FRAME STRAIGHTENER) Tika Cunha, RN Note: Expected end date: 05/05/2019 The goal is to maintain or improve your mobility at the optimum level for you. Interventions: documented as of this encounter Visit Diagnoses Diagnosis Malignant neoplasm of left breast in female, estrogen receptor positive, unspecified site of breast (HCC)- Primary Elevated SGOT (AST) Nonspecific elevation of levels of transaminase or lactic acid dehydrogenase (LDH) Encounter for monitoring tamoxifen therapy Encounter for therapeutic drug monitoring documented in this encounter Care Teams Educational Coordinator Relationship Specialty Start Date End Date Asher Garrison MD [address] [place] [address] PCP - General 08/25/18 05/02/21 documented as of this encounter
--- OUTSIDE RECORDS SUMMARY | 2024-04-25 14:07 | XMS_ITS | Encounter Summary ---
Author Organization [facility] Address [address] [place] [address] Care Team Providers Care Slurry Worker Name Role Phone Asher Garrison MD Primary Care Provider [phone] [phone] Encounter Details Date Type Department Care Team (Late st Contact Info) Description 09/13/2019 2:11 PM CDT - 09/13/2019 11:59 PM CDT Hospital Encounter [facility] [address] [place] [address] Erma Neri MD 23 [facility] 220 [place] [address] Discharge Disposition: Home or Self [...] have Coronavirus / COVID-19? No / Unsure 09/10/2019 11:52 AM CDT documented as of this encounter [...] BY MOUTH EVERY DAY 30 tablet 1 08/11/2019 10/05/2019 tamoxifen (NOLVADEX) 20 MG tablet Take 1 tablet by mouth 11/17/2015 04/05/2021 documented as of this encounter Plan of Treatment Upcoming Encounters Date Type Department Care Team (Late st Contact Info) Description 06/02/2024 10:30 AM LITHOGRAPHING MACHINE OPERATOR Office Visit [facility] - [facility]1 [place] [phone] Kevin Britton MD 1031 [facility] 280 [place] [address] 08/10/2024 1:00 PM CDT Office Visit [facility] - TEACHER ASSOCIATE 1031 [facility] 400 [place] [phone] Daja Mir MD 4[address] [place] [address] 10/26/2024 1:00 PM CDT Office Visit [facility] - Hematology/Oncology [address] [place] [phone] Elizabeth Garcia MD 4452 [facility] 3 [place] [address] 01/17/2025 12:30 PM CDT Procedure visit [facility] - [place] [address] [place] [phone] 01/17/2025 1:00 PM CDT Office Visit [facility] - GI [address] [place] [phone] Marlena Mccoy, SEAMARK ADVANCED OPERATOR MAINTAINER-HOT METAL CHARGER [address] [place] [address] documented as of this encounter Goals Goal Patient Goal Type Associated Problems Recent Progress Patient-Stated? Author Mobility General On track(05/12/19 21 9:08 AM LITHOGRAPHING MACHINE OPERATOR) Tika Cunha RN Note: Expected end date: 05/05/2019 The goal is to maintain or improve your mobility at the optimum level for you. Interventions: documented as of this encounter Procedures Procedure Name Priority Date/Time Associated Diagnosis Comments VITAMIN D 25-HYDROXY Routine 09/13/2019 2:12 PM CDT Malignant neoplasm of nipple of left breast in female, unspecified estrogen receptor status (HCC) Vitamin D deficiency, unspecified CBC W AUTO DIFFERENTIAL Routine 09/13/2019 2:12 PM CDT Malignant neoplasm of nipple of left breast in female, unspecified estrogen receptor status (HCC) Vitamin D deficiency, unspecified COMPREHENSIVE METABOLIC PANEL Routine 09/13/2019 2:12 PM CDT Malignant neoplasm of nipple of left breast in female, unspecified estrogen receptor status (HCC) Vitamin D deficiency, unspecified TSH Routine 09/13/2019 2:12 PM CDT Malignant neoplasm of nipple of left breast in female, unspecified estrogen receptor status (HCC) Abnormal laboratory test result Malaise and fatigue T4 FREE LINDA 09/13/2019 2:12 PM CDT Malignant neoplasm of nipple of left breast in female, unspecified estrogen receptor status (HCC) Abnormal laboratory test result Malaise and fatigue documented in this encounter Results * T4 FREE (09/13/2019 2:12 PM CDT) T4 Free 0.7 0.7 - 1.5 ng/dL 09/13/2019 3:41 PM CDT [facility] Blood BLOOD SPECIMEN / Unknown Lab Venipuncture / Unknown 09/13/2019 2:12 PM CDT 09/13/2019 3:03 PM CDT Erma Neri MD LAB - CHEMISTRY LD SALDAÑA Performing Organization Address City/[facility]/ZIP Co de Phone Number [address] [phone] * TSH (09/13/2019 2:12 PM CDT) Pathologist [facility] TSH 3.203 0.350 - 4.940 uIU/mL 09/13/2019 3:41 PM CDT [facility] Blood BLOOD SPECIMEN / Unknown Lab Venipuncture / Unknown 09/13/2019 2:12 PM CDT 09/13/2019 3:03 PM CDT Erma Neri MD LAB - CHEMISTRY LD SALDAÑA Performing Organization Address [facility] [place] [address], [facility] [phone] * VITAMIN D 25-HYDROXY (09/13/2019 2:12 PM CDT) Pathologist [facility] Vitamin D, 25 Hydroxy 34.1 See comment: ng/mL 09/13/2019 3:07 PM CDT [facility] Comment: The recommendations for 25-Hydroxy Vitamin D [...] Neri MD LAB - CHEMISTRY LD SALDAÑA [facility] [address] [phone] * (ABNORMAL) COMPREHENSIVE METABOLIC PANEL (09/13/2019 2:12 PM CDT) BUN 14 7 - 26 mg/dL 09/13/2019 2:47 PM [facility] Creatinine 1.1 0.6 - 1.2 mg/dL 09/13/2019 2:47 PM [facility] Sodium 141 136 - 145 mmol/L 09/13/2019 2:47 PM [facility] Potassium 3.7 3.5 - 4.5 mmol/L 09/13/2019 2:47 PM [facility] Chloride 106 98 - 107 mmol/L 09/13/2019 2:47 PM [facility] CO2 24 22 - 29 mmol/L 09/13/2019 2:47 PM [facility] Glucose 129(H) 70 - 115 mg/dL 09/13/2019 2:47 PM [facility] Calcium 9.4 8.4 - 10.2 mg/dL 09/13/2019 2:47 PM [facility] Protein Total 7.2 6.0 - 8.3 g/dL 09/13/2019 2:47 PM [facility] Albumin 3.8 3.4 - 5.0 g/dL 09/13/2019 2:47 PM [facility] Bilirubin Total 0.2 0.2 - 1.2 mg/dL 09/13/2019 2:47 PM [facility] Alkaline Phosphatase 69 40 - 150 Units/L 09/13/2019 2:47 PM [facility] ALT 39 0 - 55 Units/L 09/13/2019 2:47 PM [facility] AST 45(H) 5 - 34 Units/L 09/13/2019 2:47 PM CDT [facility] Anion Gap 15 8 - 18 09/13/2019 2:47 PM T [facility] BUN/Creatinine Ratio 13 7 - 23 09/13/2019 2:47 PM T [facility] Osmolality Calculated 294 270 - 300 mOsm/kg 09/13/2019 2:47 PM T [facility] Albumin/Globulin Ratio 1.1 1.1 - 2.3 09/13/2019 2:47 PM T [facility] eGFR 52(L) >60 mL/min/1.7 3 m2 09/13/2019 2:47 PM T [facility] Blood BLOOD SPECIMEN / Unknown Lab Venipuncture / Unknown 09/13/2019 2:12 PM CDT 09/13/2019 2:23 PM CDT Erma Neri MD LAB - CHEMISTRY LD SALDAÑA [facility] Organization Address City/State/[facility] Co de Phone Number [address] [phone] * CBC WITH DIFFERENTIAL (09/13/2019 2:12 PM CDT) WBC 9.8 3.5 - 10.5 10? 3 /uL 09/13/2019 2:25 PM [facility] RBC 4.41 3.90 - 5.00 10? 6 /uL 09/13/2019 2:25 PM [facility] Hemoglobin 13.3 12.0 - 15.5 g/dL 09/13/2019 2:25 PM T [facility] Hematocrit 40.2 35.0 - 45.0 % 09/13/2019 2:25 PM T [facility] MCV 91.2 81.0 - 97.0 fL 09/13/2019 2:25 PM T [facility] MCH 30.2 28.0 - 34.0 pg 09/13/2019 2:25 PM CDT [facility] MCHC 33.1 32.0 - 36.0 g/dL 09/13/2019 2:25 PM T [facility] Platelet Count 162 150 - 400 10? 3 /uL 09/13/2019 2:25 PM [facility] RDW-SD 41.1 36.0 - 50.0 fL 09/13/2019 2:25 PM [facility] RDW-CV 12.3 11.2 - 14.8 % 09/13/2019 2:25 PM [facility] MPV 11.0 9.3 - 12.8 fL 09/13/2019 2:25 PM [facility] nRBC Absolute 0.00 0 10? 3 /uL 09/13/2019 2:25 PM [facility] nRBC Auto 0.0 0 /100 WBC 09/13/2019 2:25 PM [facility] Neutrophils % 63.5 35.0 - 70.0 % 09/13/2019 2:25 PM [facility] Lymphocytes % 29.0 19.7 - 55.1 % 09/13/2019 2:25 PM [facility] Monocytes % 5.6 3.0 - 15.0 % 09/13/2019 2:25 PM [facility] Eosinophils % 1.3 0.0 - 6.0 % 09/13/2019 2:25 PM [facility] Basophil % 0.3 0.0 - 1.5 % 09/13/2019 2:25 PM [facility] Neutrophils Absolute 6.2 1.6 - 7.0 10? 3 /uL 09/13/2019 2:25 PM [facility] Lymphocyte Absolute 2.8 0.8 - 2.9 10? 3 /uL 09/13/2019 2:25 PM [facility] Monocytes Absolute 0.55 0.14 - 0.66 10? 3 /uL 09/13/2019 2:25 PM [facility] Eosinophils Absolute 0.13 0.00 - 0.45 10? 3 /uL 09/13/2019 2:25 PM [facility] Basophils Absolute 0.03 0.00 - 0.06 10? 3 /uL 09/13/2019 2:25 PM [facility] Immature Granulocytes % 0.3 0.0 - 1.0 % 09/13/2019 2:25 PM [facility] Blood BLOOD SPECIMEN / Unknown Lab Venipuncture / Unknown 09/13/2019 2:12 PM CDT 09/13/2019 2:23 PM CDT Erma Neri MD LAB - HEMATOLOGY ORD ERABLES [address] [phone] documented in this encounter Visit Diagnoses Diagnosis Malignant neoplasm of nipple of left breast in female, unspecified estrogen receptor status (HCC) Vitamin D deficiency, unspecified Abnormal laboratory test result Other abnormal clinical finding Malaise and fatigue documented in this encounter Care Teams Slurry Worker Relationship Specialty Start Date End Date Asher Garrison MD [address] [facility] [place] [address] PCP - General 08/25/18 05/02/21 documented as of this encounter
--- OUTSIDE RECORDS SUMMARY | 2024-04-25 14:07 | XMS_ITS | Encounter Summary ---
Author Organization [facility] Address [address] [place] [address] Care Team Providers Care Apartment Property Manager Name Role Phone Asher Garrison MD Primary Care Provider [phone] Reason for Visit * Reason Comments Follow-up Encounter Details Date Type Department Care Team (Latest Contact Info) Description 11/02/2019 11:00 AM CDT Office Visit [facility] - Orthopedics [address] [place] [phone] Newton Britton MD [address] [phone] Primary osteoarthritis of left knee (Primary Dx) [...] Progress Notes * Newton Britton MD - 11/02/2019 11:31 AM CDT Patient returns for repeat left knee injection ?? Physical exam: Examination left knee reveals intact skin without signs of infection. ?? X-rays: None obtained ?? Assessment: Left knee osteoarthritis here for repeat injection ?? Plan: We will proceed with repeat left knee injection today. Please see the procedure note for further details. We will see her back as needed. documented in this encounter Procedure Notes * Newton Britton MD - 11/02/2019 11:32 AM CDTAssociated Order(s): PROC INJECTION JOINT (SMALL/INTERMED/MAJOR) Procedure(s): OK DRAIN/INJECT LARGE JOINT/BURSA Pre-Procedure Diagnose(s): Primary osteoarthritis [...] of plan per note. Newton Britton MD 11/02/2019 11:32 AM documented in this encounter Miscellaneous Notes * Addendum Note - Newton Britton MD - 11/02/2019 11:32 AM CDTAddended by: NEWTON BRITTON on: 11/02/2019 11:32 AM Modules accepted: Orders documented in this encounter Plan of Treatment Upcoming Encounters Date Type Department Care Team (Late st Contact Info) Description 06/02/2024 10:30 AM AUTOMATION QA TESTER Office Visit [facility] - Orthopedic Surgery 10[address] [place] [phone] Newton Britton MD 1031 [facility] [address] [place] [address] 08/10/2024 1:00 PM CDT Office Visit [facility] - STOCK LIFTER 1031 [facility] [address] [place] [phone] Daja Mir MD [address] [place] [address] 10/26/2024 1:00 PM CDT Office Visit [facility] - Hematology/Oncology [address] [place] [phone] Elizabeth Garcia MD 3665 [facility] 3 [place] [address] 01/17/2025 12:30 PM CDT Procedure visit [facility] - GI [address] [place] [phone] 01/17/2025 1:00 PM CDT Office Visit [facility] - GI [address] [place] [phone] Marlena Mccoy, ADJUNCT ART HISTORY INSTRUCTOR-TELEGRAPHIC SERVICE DISPATCHER [address] [place] [address] [facility] [place] [address] documented as of this encounter Goals Goal Patient Goal Type Associated Problems Recent Progress Patient-Stated? Author Mobility General On track(05/12/19 9:08 AM AUTOMATION QA TESTER) Tika Cunha RN Note: Expected end date: 05/05/2019 The goal is to maintain or improve your mobility at the optimum level for you. Interventions: documented as of this encounter Procedures Procedure Name Priority Date/Time Associated Diagnosis Comments OK DRAIN/INJECT LARGE JOINT/BURSA Routine 11/02/2019 11:32 AM CDT Primary osteoarthritis of left knee documented in this encounter Results * OK DRAIN/INJECT LARGE JOINT/BURSA (11/02/2019 11:32 AM CDT) Narrative Newton Britton MD - 11/02/2019 11:32 AM CDT Newton Britton MD ? 11/02/2019 11:32 AM Orthopaedic [...] of plan per note. Newton Britton MD 11/02/2019 11:32 AM Newton Britton MD PROCEDURE/MINOR ALCON GICAL ORDERABLES documented in this encounter Visit Diagnoses Diagnosis Primary osteoarthritis of left knee- Primary Primary localized osteoarthrosis, lower leg documented in this encounter Care Teams Apartment Property Manager Relationship Specialty Start Date End Date Asher Garrison MD [address] [place] [phone] PCP - General 08/25/18 05/02/21 documented as of this encounter
--- OUTSIDE RECORDS SUMMARY | 2024-04-25 14:07 | XMS_ITS | Encounter Summary ---
Author Organization [facility] Address [address] [facility] [place] [address] Care Team Providers Care Brass Bobbin Winder Name Role Phone Asher Garrison MD Primary Care Provider [phone] Encounter Details Date Type Department Care Team (Latest Contact Info) Description 09/10/2019 Travel Social History Tobacco Use Types Packs/Day [...] Contact Info) Description 06/02/2024 10:30 AM LEGAL CLERK [facility] Visit [facility] [address] [facility] [place] [phone] Kevin Britton MD 1031 [facility] 280 [place] [address] 08/10/2024 1:00 PM CDT Office Visit [facility] - CATTLE DEHORNER [address] [place] [phone] Daja Mir MD [address] [facility] [place] [address] 10/26/2024 1:00 PM CDT Office Visit [facility] - Hematology/Oncology [address] [place] [phone] Elizabeth Garcia MD [address] [facility] 3 [place] [address] 01/17/2025 12:30 PM CDT Procedure visit [facility] - GI [address] [facility] [place] [phone] 01/17/2025 1:00 PM CDT Office Visit [facility] - GI [address] [facility] [place] [phone] Marlena Mccoy, DISTRIBUTION SALES REPRESENTATIVE-DIRECTOR OF VALUATION [address] [place] [address] [facility] [place] [address] documented as of this encounter Goals Goal Patient Goal Type Associated Problems Recent Progress Patient-Stated? Author Mobility General On track(05/12/19 21 9:08 AM LEGAL CLERK) Tika Cunha, SABRINA Note: Expected end date: 05/05/2019 The goal is to maintain or improve your mobility at the optimum level for you. Interventions: documented as of this encounter Visit Diagnoses Not on filedocumented in this encounter Care Teams Brass Bobbin Winder Relationship Specialty Start Date End Date Asher Garrison MD [address] [place] [phone] PCP - General 08/25/18 05/02/21 documented as of this encounter
--- OUTSIDE RECORDS SUMMARY | 2024-04-25 14:07 | XMS_ITS | Encounter Summary ---
Author Organization [facility] Address [address] [place] [address] Care Team Providers Care Acid Pump Operator Name Role Phone Asher Garrison MD Primary Care Provider [phone] Reason for Visit * Reason Comments Refill Request Encounter Details Date Type Department Care Team ([facility] Contact Info) Description 10/05/2019 Refill [facility] Orthopedic Surgery [address] [place] [address] Kevin Britton MD [address] [address] Refill Request Social History Tobacco Use Types [...] Upcoming Encounters Date Type Department Care Team ([facility] Contact Info) Description 06/02/2024 10:30 AM PRECISION GRINDER EXTERNAL Office Visit [facility] - Orthopedic Surgery 10[address] [place] [phone] Kevin Britton MD 1031 [facility] 280 [place] [address] 08/10/2024 1:00 PM CDT Office Visit [facility] - BOOTMAKER HAND 1031 [facility] 400 [place] [phone] Daja Mir MD 5702 [facility] [place] [address] 10/26/2024 1:00 PM CDT Office Visit [facility] - Hematology/Oncology [address] [place] [phone] Elizabeth Garcia MD 3665 [facility] 3 [place] [address] 01/17/2025 12:30 PM CDT Procedure visit [facility] - GI [address] [place] [address], [place] [phone] 01/17/2025 1:00 PM CDT Office Visit [facility] - GI [address] [place] [phone] Marlena Mccoy, INSIDE PHONE SALES-MINISTER ASSISTANT [address] [place] [address] [place] [address] documented as of this encounter Goals Goal Patient Goal Type Associated Problems Recent Progress Patient-Stated? Author Mobility General On track(05/12/19 21 9:08 AM PRECISION GRINDER EXTERNAL) Tika Cunha, RN Note: Expected end date: 05/05/2019 The goal is to maintain or improve your mobility at the optimum level for you. Interventions: documented as of this encounter Visit Diagnoses Diagnosis Primary osteoarthritis of left knee Primary localized osteoarthrosis, lower leg documented in this encounter Care Teams Acid Pump Operator Relationship Specialty Start Date End Date Asher Garrison MD [address] [place] [phone] PCP - General 08/25/18 05/02/21 documented as of this encounter
--- OUTSIDE RECORDS SUMMARY | 2024-04-25 14:07 | XMS_ITS | Encounter Summary ---
Author Organization [facility] Address [address] [place], [place] [address] [place] [address] Care Team Providers Care Instrument Maker And Repairer Name Role Phone Asher Garrison MD Primary Care Provider [phone] Reason for Referral * Radiology Services (Routine) - Closed Specialty Diagnoses / Procedures Referred By Americo peters Referred To Contact Mammography Diagnoses History of breast cancer in female Procedures MAMMO BILAT DIAGNOSTIC Erma Neri MD [address] [place] [address] Referral ID Status Reason Start Date Expiration Date Visits Re quested Visits Authorized [id number] Closed 09/14/2019 03/12/2020 1 1 Encounter Details Date Type Department Care Team (Late st Contact Info) Description 09/14/2019 Orders Only [facility] [address] [place], RN Malignant neoplasm of nipple of left breast in female, unspecified estrogen receptor status (HCC) ; History of breast cancer in female Social History Tobacco Use Types Packs/Day Years [...] Contact Info) Description 06/02/2024 10:30 AM MANAGER [place] Office Visit [facility]opedic Surgery [address] [place] [phone] Kevin Britton MD 1031 [facility] 280 [place] [address] 08/10/2024 1:00 PM CDT Office Visit [facility] - STRATEGY EXECUTION CONSULTANT 1031 [facility] 400 [place] [phone] Daja Mir MD 5703 [facility] [place] [address] 10/26/2024 1:00 PM CDT Office Visit [facility] - Hematology/Oncology [address] [place] [phone] Elizabeth Garcia MD 3665 [facility] 3 [place] [address] 01/17/2025 12:30 PM CDT Procedure visit [facility] - GI [address] [place] [address], [place] [phone] 01/17/2025 1:00 PM CDT Office Visit [facility] - GI [address] [place] [phone] Marlena Mccoy, DIE BAKER-BUSINESS PROCESS COORDINATOR [address] [place] [address] [facility] [place] [address] documented as of this encounter Goals Goal Patient Goal Type Associated Problems Recent Progress Patient-Stated? Author Mobility General On track(05/12/19 9:08 AM MANAGER [place]) Tika Cunha RN Note: Expected end date: 05/05/2019 The goal is to maintain or improve your mobility at the optimum level for you. Interventions: documented as of this encounter Results * MAMMO BILAT DIAGNOSTIC (10/13/2019 10:51 AM CDT) Anatomical Region Laterality Modality Breast Bilateral Mammography 10/13/2019 10:4 6 AM CDT Impressions 10/13/2019 12:29 PM CDT IMPRESSION: No evidence of malignancy in either breast. ASSESSMENT: BI-RADS Category 2: Benign finding(s). RECOMMENDATION: Annual bilateral diagnostic mammogram. Findings and recommendations were discussed with the patient by Dr. Irving. Dictated by Car Bañuelos MD (founder and president). I, Dr. HILARIA IRVING M.D. have personally [...] either breast. Erma Neri MD MAMMO ORDERABLES documented in this encounter Visit Diagnoses Diagnosis Malignant neoplasm of nipple of left breast in female, unspecified estrogen receptor status (HCC)- Primary History of breast cancer in female Personal history of malignant neoplasm of breast History of breast cancer in female Personal history of malignant neoplasm of breast documented in this encounter Care Teams Instrument Maker And Repairer Relationship Specialty Start Date End Date Asher Garrison MD [address] [place] [phone] PCP - General 08/25/18 05/02/21 documented as of this encounter
--- OUTSIDE RECORDS SUMMARY | 2024-04-25 14:07 | XMS_ITS | Encounter Summary ---
Author Organization [facility] Address [address] [facility] [place] [address] Care Team Providers Care Color Paste Mixer Name Role Phone Asher Garrison MD Primary Care Provider [phone] Reason for Referral * Radiology Services (Routine) - Closed Specialty Diagnoses / Procedures Referred By Americo peters Referred To Contact Mammography Diagnoses History of breast cancer in female Procedures MAMMO BILAT DIAGNOSTIC Erma Neri MD [address] [address] Referral ID Status Reason Start Date Expiration Date Visits Re quested Visits Authorized [id number] Closed 09/14/2019 03/12/2020 1 1 Reason for Visit * Radiology Services (Routine) - Closed Specialty Diagnoses / Procedures Referred By Americo peters Referred To Contact Mammography Diagnoses History of breast cancer in female Procedures MAMMO BILAT DIAGNOSTIC Erma Neri MD [address] [address] Referral ID Status Reason Start Date Expiration Date Visits Re quested Visits Authorized [id number] Closed 09/14/2019 03/12/2020 1 1 Encounter Details Date Type Department Care Team (Late st Contact Info) Description 10/13/2019 10:25 AM CDT - 10/13/2019 11:59 PM CDT Hospital Encounter [facility] [address] [place] [id number] Erma Neri MD [address] [place] [address] Discharge Disposition: Home or Self [...] on file documented as of this encounter Medications at [...] BY MOUTH EVERY DAY 30 tablet 1 10/05/2019 12/08/2019 tamoxifen (NOLVADEX) 20 MG tablet Take 1 tablet by mouth 11/17/2015 04/05/2021 documented as of this encounter Plan of Treatment Upcoming Encounters Date Type Department Care Team (Late st Contact Info) Description 06/02/2024 10:30 AM CAUL DRESSER Office Visit [facility] - Orthopedic Surgery [address] [place] [address] Kevin Britton MD 1031 [facility] [address] [place] [address] 08/10/2024 1:00 PM CDT Office Visit [facility] - CARE CONNECTOR [address] [facility] 400 [place] [address] Daja Mir MD [address] [facility] [place] [address] 10/26/2024 1:00 PM CDT Office Visit [facility] - Hematology/Oncology [address] [place] [phone] Elizabeth Garcia MD [address] [place] [address] 01/17/2025 12:30 PM CDT Procedure visit [facility] - GI [address] [facility], [place] [phone] 01/17/2025 1:00 PM CDT Office Visit [facility] - GI [address] [facility], [place] [phone] Marlena Mccoy, LEAD LEVEL DESIGNER-FIELD CROP TECHNICAL OFFICER [address] [place] [address] [facility] [place] [address] documented as of this encounter Goals Goal Patient Goal Type Associated Problems Recent Progress Patient-Stated? Author Mobility General On track(05/12/19 21 9:08 AM CAUL DRESSER) No Tika Pope RN Note: Expected end date: 05/05/2019 The goal is to maintain or improve your mobility at the optimum level for you. Interventions: documented as of this encounter Procedures Procedure Name Priority Date/Time Associated Diagnosis Comments MAMMO BILAT DIAGNOSTIC Routine 10/13/2019 10:51 AM CDT History of breast cancer in female documented in this encounter Results * MAMMO [...] Dr. Irving. Dictated by Car Bañuelos MD (vice president mission integration). I, Dr. HILARIA IRVING M.D. have personally [...] Visit Diagnoses Diagnosis History of breast cancer in female Personal history of malignant neoplasm of breast documented in this encounter Care Teams Color Paste Mixer Relationship Specialty Start Date End Date Asher Garrison MD [address] [place] [phone] PCP - General 08/25/18 05/02/21 documented as of this encounter
--- OUTSIDE RECORDS SUMMARY | 2024-04-25 14:07 | XMS_ITS | Encounter Summary ---
Author Organization [facility] Address [address] [place] [address] Care Team Providers Care Steam Generating Powerplant Mechanic Name Role Phone Asher Garrison MD Primary Care Provider [phone] [phone] Reason for Visit * Reason Comments Pain Knee Encounter Details Date Type Department Care Team (Latest Contact Info) Description 07/27/2019 11:20 AM CDT Office Visit [facility] - Orthopedics [address] [place] [phone] Newton Britton MD [address] [phone] Primary osteoarthritis of left knee (Primary Dx) [...] as of this encounter Progress Notes * Dariela Mcguire MD - 07/27/2019 11:43 AM CDT [facility] Orthopedic Adult Reconstruction Surgery Clinic Note Milagros Torres, 54 year old, female : 1965 [facility]: [id number] Primary Care Physician: Asher Garrison MD Diagnosis/Procedures 1.) 54 year old female with left knee pain secondary to Degenerative Joint Disease HPI Date of this clinic visit: 07/27/2019 Patient is a 54 year old female who presents for new patient, regarding left knee pain of 1 year duration. Describes the pain as deep/achy without radiation. Ambulates without assistive device. The patient cannot walk for as long as they would like or exercise without pain. The symptoms are activity-related and improve with rest. No fevers, chills, new numbness/ paresthesias, gross motor weakness. Has a history of breast cancer, in remission of at least 5 years. Has tried 2 steroid injection without much relief in the last one. 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 PMHx Past Medical History: Diagnosis Date ??? Breast cancer ??? Depression with anxiety ??? Hypertension PSHx Past Surgical History: Procedure Laterality Date ??? Breast Lumpectomy Left 09/04/2015 With sentinel node biopsy performed by Dr. Brittni Knight ??? Section 05/1990 Social Hx Social History Tobacco Use ??? Smoking status: Never Smoker ??? Smokeless tobacco: Never Used Substance Use Topics ??? Alcohol use: Yes Frequency: 2-4 times a month Family Hx family history includes Cancer - Breast in her sister; Cancer - Lung in her mother. Allergies No Known Allergies Medications Current Outpatient Medications Medication ??? calcium 600 MG tablet ??? meloxicam (MOBIC) 15 MG tablet ??? tamoxifen (NOLVADEX) 20 MG tablet ??? Vitamin D3, cholecalciferol, 50 MCG (1999 UT) tablet No current facility-administered medications for this visit. Review of Systems + left knee pain Physical Exam General: Alert, cooperative, in no acute distress. CV: RRR, distal pulses equal and symmetric Resp: no increased labor of breathing Musculoskeletal: Left lower extremity: -Appearance: skin warm/dry/intact and without lesions, there is not an effusion to the left knee. Leg lengths are symmetric -Tenderness: nontender to palpation of left knee -ROM: Knee exam demonstrates AROM of 0-100. Patient has stability with varus/valgus loading and stabilitywith anterior/superior stresses. No patellar maltracking or apprehension -Motor: Able to PF/DF ankle and great toe. Extensor mechansim is intact. -Sensation: SILT to dorsal and plantar foot -Vascular: 2+ DP pulse with toes warm and well perfused Imaging - Radiographs reviewed: 4 views of the Left knee which reveal medial joint space narrowing, osteophyte formation, sclerosis and subchondral cyst formation in a varus alignment. - Please see separate radiographic report for formal read by Radiology Assessment/Plan: 54 year old female with left knee pain secondary to Degenerative Joint Disease 1. Patient was counseled to the nature of their diagnosis and demonstrated understanding. Questionssolicited and answered. 2. WBAT LLE 3. Discussed left total knee arthroplasty with patient. Risks, benefits, and alternatives to the surgical [...] and early active ankle pumps for DVT/PE prevention. Discussed Dental visit prior to arthroplasty procedure and visiting PCP for medical clearance 4. left knee steroid injection in clinic today 5. Patient counseled on Nicotine cessation and it's risks prior to consideration of joint arthroplasty. Patient verbalized understanding that they will have to be nicotine-free for 4 weeks prior to consideration of surgical intervention 6. Patient counseled on weight loss prior to considering joint arthroplasty with a goal BMI of 32 prior to surgical intervention 7. Discussed with patient the necessity for antibiotic suppression prior to dental work and other invasive procedures 8. Recommend continued use of NSAID's, 2000 units Vitamin D daily, 1500 to 2000 mg Glucosamine/chondroitin daily, Voltaren Gel, and use of assistive devices for ambulation/balance 9. Will plan for left TKA in the future when elective surgeries are getting scheduled again. In themean time, follow up in 3 months Patient seen and examined with resident. I confirm history, exam, assessment and plan. In addition I note: Interval history: Briefly, this is a 54 year old female with left knee pain secondary to DJD. Exam reveals left knee limitation of and pain with ROM. Complete examination/plan noted above. I personally examined the patient and edited and agree with the above findings in the note Assessment/Plan: Conservative treatment for left knee DJD including >12 weeks of PT, NSAIDS, glucosamine/Vit D, ambulatory aids, weight loss, and corticosteroid injections has failed. Symptoms of pain, difficulty ambulating, difficulty standing, difficulty with stair climbing and difficulty withpersonal hygiene are interfering with patient's lifestyle. Will obtain medical and dental clearances and schedule for left knee arthroplasty Risks, benefits, and alternatives [...] treatment plan and all questions were answered. She would like to try 1 more injection today given the fact she would be unable to have surgery any time soon due to the current cancellation of all elective surgery due to the glez virus Please see resident's note for further details. Newton Britton MD documented in this encounter Procedure Notes * Newton Britton MD - 07/27/2019 12:14 PM CDTAssociated Order(s): PROC INJECTION JOINT (SMALL/INTERMED/MAJOR) Procedure(s): MN DRAIN/INJECT LARGE JOINT/BURSA Pre-Procedure Diagnose(s): Primary osteoarthritis [...] of plan per note. Newton Britton MD 07/27/2019 12:14 PM documented in this encounter Miscellaneous Notes * Addendum Note - Newton Britton MD - 07/27/2019 12:15 PM CDTAddended by: NEWTON BRITTON on: 07/27/2019 12:15 PM Modules accepted: Orders documented in this encounter Plan of Treatment Upcoming Encounters Date Type Department Care Team (Late st Contact Info) Description 06/02/2024 10:30 AM SURGEON'S ASSISTANT Office Visit [facility] - Orthopedic Surgery [address] [place] [phone] Newton Britton MD 1031 [facility] 280 [place] [address] 08/10/2024 1:00 PM CDT Office Visit [facility] - WORKING SECOND HAND 1031 [facility] 400 [place] [phone] Daja Mir MD [address] [place] [address] 10/26/2024 1:00 PM CDT Office Visit [facility] - Hematology/Oncology [address] [place] [phone] Elizabeth Garcia MD [address] [facility] 3 [place] [address] 01/17/2025 12:30 PM CDT Procedure visit [facility] - GI [address] [facility], [place] [phone] 01/17/2025 1:00 PM CDT Office Visit [facility] - GI [address] [place] [address], [place] [phone] Marlena Mccoy, GENERAL ASSEMBLER-STOREKEEPER ENGINEERING [address] [place] [address] [address] [place] [address] documented as of this encounter Goals Goal Patient Goal Type Associated Problems Recent Progress Patient-Stated? Author Mobility General On track(05/12/19 9:08 AM SURGEON'S ASSISTANT) Tika Cunah RN Note: Expected end date: 05/05/2019 The goal is to maintain or improve your mobility at the optimum level for you. Interventions: documented as of this encounter Procedures Procedure Name Priority Date/Time Associated Diagnosis Comments MN DRAIN/INJECT LARGE JOINT/BURSA Routine 07/27/2019 12:14 PM CDT Primary osteoarthritis of left knee documented in this encounter Results * MN DRAIN/INJECT LARGE JOINT/BURSA (07/27/2019 12:14 PM CDT) Narrative Newton Britton MD - 07/27/2019 12:14 PM CDT Newton Britton MD ? 07/27/2019 12:14 PM Orthopaedic [...] of plan per note. Newton Britton MD 07/27/2019 12:14 PM Newton Britton MD PROCEDURE/MINOR ALCON GICAL ORDERABLES [...] 6 mL, Infiltration, ONCE, 1 dose, On Fri07/27/19 at 1230 $ Given 07/27/2019 1:15 PM CDT 6 mL Left Knee triamcinolone acetonide (KENALOG-40) injection 80 mg 80 mg, Intramuscular, ONCE, 1 dose, On Fri07/27/19 at 1230, Shake well before using. $ Given 07/27/2019 1:16 PM CDT 80 mg Left Knee documented in this encounter Care Teams Steam Generating Powerplant Mechanic Relationship Specialty Start Date End Date Asher Garrison MD [address] [place] [address] PCP - General 08/25/18 05/02/21 documented as of this encounter
--- OUTSIDE RECORDS SUMMARY | 2024-04-25 14:07 | XMS_ITS | Encounter Summary ---
Author Organization [facility] Address [address] [place] [address] Care Team Providers Care Oil Refinery Operator Name Role Phone Asher Garrison MD Primary Care Provider [phone] [phone] Encounter Details Date Type Department Care Team (Late st Contact Info) Description 09/13/2019 2:20 PM CDT Office Visit [facility] Hematology and Oncology[address] [address] Erma Neri MD 23 [facility] 220 [place] [address] Malignant neoplasm of left breast in female, estrogen receptor positive, unspecified site of breast (HCC) (Primary Dx); Encounter for monitoring tamoxifen therapy [...] Sign Reading Time Taken Comments Blood Pressure 136/88 09/13/2019 2:25 PM CDT Pulse 78 09/13/2019 2:25 PM CDT Temperature 36.4 ??C (97.5 ??F) 09/13/2019 2:25 PM CD T Respiratory Rate 20 09/13/2019 2:25 PM CDT Oxygen Saturation 98% 09/13/2019 2:25 PM CDT Inhaled Oxygen Concentration - - Weight 93.2 kg (205 lb 6.4 oz) 09/13/2019 2:25 P M CDT Height 170.2 cm (5' 7 ) 09/13/2019 2:25 PM CDT Body Mass Index 32.17 09/13/2019 2:25 PM CDT documented in this encounter Progress Notes * Christiano Loyd MD - 09/13/2019 2:27 PM CDT [facility] Hematology/Oncology Clinic Date: 09/13/2019 Patient: Milagros Torres Oncologist: Dr. Neri Primary-Care Provider: Asher Garrison MD Chief Complaint/Reason for Visit: Stage I ([id number]) ER+/NC+/HER/2- Left invasive ductal carcinoma History of Present Illness/Interval History: Milagros Torres is a 54 year old female with a history of stage I IDC, HTN, anxiety who presents today for scheduled follow up. She has been on treatment with tamoxifen. She continues to do very well and has minimal Side effects. Of note she has been having a difficult time recently due to stress over coronavirus and working. 2 Months ago she had been having vaginal bleeding and underwent US locally which noted some thickening. She is planned to undergo D&C next week. She has not had bleeding for the last 5 days. Denies fevers, chills, nausea, vomiting, headache, vision changes, shortness of breath, chest pain, cough, abdominal pain, dysuria, melena, leg swelling. Oncologic History: Noted to have an abnormal screening mammogram in June or July of 2015. Referred to [facility], where a left breast biopsy performed on 07/25/15 showed ER+/NC+/HER/2- invasive ductal carcinoma. US-guided FNA of the axillary lymph node was performed at the same time which was negative for metastatic disease. A left partial mastectomy was performed on 09/04/2015 which showed 1.5 cm, grade 2 IDC (pathologic [id number]) with negative margins. [place] lymph node biopsy was negative (0/1). She had a Oncotype DX score of 17. She was premenopausal at the time of diagnosis and started on tamoxifen. Receivedleft accelerated partial breast radiation (3850 cGy) between 10/11-10/20/[address] Thee Larson. She was followed at [facility] by Dr. Kyrie Baltazar where her LFTs were noted to be mildly elevated on a few separate occasions. Since starting tamoxifen, she has not had any periods, but has had a few episodes of spotting. Had a D&C by her blockmason after US showed a thickened endometrial stripe. Negative for carcinoma or hyperplasia. Now 09/2019 undergoing D&C again due to vaginal bleeding. Stage I ([id number]) ER+/NC+/HER/2- Left invasive ductal carcinoma -07/2015: Abnormal mammogram 07/25/15: Breast biopsy showed invasive ductal carcinoma. Both ER and NC had a Lauren score 8/8 and HER/2 [...] food ??? meloxicam (MOBIC) 15 MG tablet TAKE [...] psychosis Vital Signs and Physical Exam: Vitals: 09/13/19 1425 BP: 136/88 Pulse: 78 Resp: 20 Temp: 97.5 ??F (36.4 ??C) SpO2: 98% Weight: 93.2 kg (205 lb 6.4 oz) Height: 1.702 m (5' [...] neurologic deficits Labs: Recent Labs Component Name 09/13/19 1412 03/15/19 1331 09/10/18 1622 WBC 9.8 8.3 6.1 RBC 4.41 4.55 4.03 HGB 13.3 14.0 12.5 HCT 40.2 42.2 37.5 MCV 91.2 92.7 93.1 MCHC 33.1 33.2 33.3 PLTCOUNT 162 207 180 NEUTPCT 63.5 63.4 52.1 NEUTABS 6.2 5.3 3.2 Recent Labs Component Name 03/15/19 1331 09/10/18 1622 POTASSIUM 3.6 3.9 CO2 27 24 BUN 15 17 CREATININE 1.0 1.0 GLUCOSE 91 92 CALCIUM 9.8 9.3 ALKPHOS 88 88 94 ALT 50 50 41 AST 46* 46* 46* EGFR 58* 58* No results for input(s): INR in the last 23556 hours. No results for input(s): PTT in the last 15198 hours. Radiology: Pathology: Specimens (From admission, onward) None Assessment and Recommendations: Milagros Torres is a 53 year old female with a history of stage I IDC, HTN, anxiety who presents today for scheduled follow up. Stage I ([id number]) ER+/NC+/HER/2- Left invasive ductal carcinoma 2016 started Tamoxifen: [...] , cataracts, loss of BMD. - annual telephone sex worker visit or if any vaginal bleeding: She is undergoing D&C next week for vaginal bleeding. She will call us with these results. We may need to change or discontinue treatment based on results. - monitor lipids - repeat cbc, cmp and lipids annually Hx of elevated AST of 46. - Will recheck today due to mild elevation in the past. She has risk factors for NAFLD. Stable Patient and above recommendations were discussed with Hematology/Oncology attending, Dr. Halle Loyd MD PGY-4 Hematology/Oncology Fellow [facility] [employer] Associated attestation - Erma Neri MD - 09/16/2019 12:20 PM CDT I have seen and examined the patient with the fellow/resident and I agree with the findings and plan of care as documented by the fellow/resident. Erma Neri MD Mechanical Energy Engineergeneral office worker Hematology/Oncology [facility] documented in this encounter Plan of Treatment Upcoming Encounters Date Type Department Care Team (Late st Contact Info) Description 06/02/2024 10:30 AM FIBERGLASS TUBE MOLDER Office Visit [facility] - Orthopedic Surgery [address] [place] [phone] Kevin Britton MD 1031 [facility] 280 [place] [address] 08/10/2024 1:00 PM CDT Office Visit [facility] - CLINICAL OB 1031 [facility] 400 [place] [phone] Daja Mir MD [address] [place] [address] 10/26/2024 1:00 PM CDT Office Visit [facility] - Hematology/Oncology [address] [place] [phone] Elizabeth Garcia MD 3662 [facility] 3 [place] [address] 01/17/2025 12:30 PM CDT Procedure visit [facility] - GI [address] [place] [phone] 01/17/2025 1:00 PM CDT Office Visit [facility] - GI [address] [place] [phone] Marlena Mccoy, TELEGRAPH PLANT MAINTAINER-SENIOR JAVA WEB APPLICATION DEVELOPER [address] [place] [address] documented as of this encounter Goals Goal Patient Goal Type Associated Problems Recent Progress Patient-Stated? Author Mobility General On track(05/12/19 9:08 AM FIBERGLASS TUBE MOLDER) Tika Cunha RN Note: Expected end date: [...] monitoring documented in this encounter Care Teams Oil Refinery Operator Relationship Specialty Start Date End Date Asher Garrison MD [address] [place] [address] PCP - General 08/25/18 05/02/21 documented as of this encounter
--- OUTSIDE RECORDS SUMMARY | 2024-04-25 14:07 | XMS_ITS | Encounter Summary ---
Author Organization [facility] Address [address] [place] [id number] Care Team Providers Care Improvement Leader Name Role Phone Asher Garrison MD Primary Care Provider [phone] [phone] Encounter Details Date Type Department Care Team ([facility] Contact Info) Description 09/13/2019 Orders Only [facility] H[facility]ology [facility] Oncology-[address] [address] Edna Verde, RN Malignant neoplasm of nipple of left breast in female, unspecified estrogen receptor status (HCC) ; Abnormal laboratory test result; Malaise and fatigue Social History Tobacco Use Types Packs/Day Years [...] Upcoming Encounters Date Type Department Care Team ([facility] Contact Info) Description 06/02/2024 10:30 AM SIDEHAND Office Visit [facility] - Orthopedic Surgery [address] [place] [phone] Kevin Britton MD [address] [place] [address] 08/10/2024 1:00 PM CDT Office Visit [facility] - ACTIVITIES MANAGER [address] [facility] [address] [place] [phone] Daja Mir MD [address] [facility] [place] [address] 10/26/2024 1:00 PM CDT Office Visit [facility] - Hematology/Oncology [address] [place] [phone] Elizabeth Garcia MD 36[address] [facility] [address] [place] [address] 01/17/2025 12:30 PM CDT Procedure visit [facility] - GI [address] [place] [address], [place] [phone] 01/17/2025 1:00 PM CDT Office Visit [facility] - GI [address] [place] [address], [place] [phone] Marlena Mccoy, TREE SPECIALIST-CREPE SOLE WIRE BRUSHER [address] [place] [address] [place] [address] documented as of this encounter Goals Goal Patient Goal Type Associated Problems Recent Progress Patient-Stated? Author Mobility General On track(05/12/19 9:08 AM SIDEHAND) Tika Cunha RN Note: Expected end date: 05/05/2019 The goal is to maintain or improve your mobility at the optimum level for you. Interventions: documented as of this encounter Results * T4 FREE (09/13/2019 2:12 PM CDT) T4 Free 0.7 0.7 - 1.5 ng/dL 09/13/2019 3:41 PM CDT [facility] Blood BLOOD SPECIMEN / Unknown Lab Venipuncture / Unknown 09/13/2019 2:12 PM CDT 09/13/2019 3:03 PM CDT Erma Neri MD LAB - CHEMISTRY LD [place] [address] [phone] * TSH (09/13/2019 2:12 PM CDT) TSH 3.203 0.350 - 4.940 uIU/mL 09/13/2019 3:41 PM CDT [facility] Blood BLOOD SPECIMEN / Unknown Lab Venipuncture / Unknown 09/13/2019 2:12 PM CDT 09/13/2019 3:03 PM CDT Erma Neri MD LAB - CHEMISTRY LD [place] [address] [phone] documented in this encounter Visit Diagnoses Diagnosis Malignant neoplasm of nipple of left breast in female, unspecified estrogen receptor status (HCC)- Primary Abnormal laboratory test result Other abnormal clinical finding Malaise and fatigue documented in this encounter Care Teams Improvement Leader Relationship Specialty Start Date End Date Asher Garrison MD [address] [place] [address] PCP - General 08/25/18 05/02/21 documented as of this encounter
--- OUTSIDE RECORDS SUMMARY | 2024-04-25 14:07 | XMS_ITS | Encounter Summary ---
Author Organization [facility] Address [address] [place] [address] Care Team Providers Care Shaker Screen Operator Name Role Phone Asher Garrison MD Primary Care Provider [phone] [phone] Encounter Details Date Type Department Care Team (Late Contact Info) Description 04/20/[address] [facility] Orthopedic Surgery [address] [place] [address] Zully Caldwell, RN Primary osteoarthritis of left [...] (Late Contact Info) Description 06/02/2024 10:30 AM SCHOOL LABORATORY TECHNICIAN Office Visit [facility] - Orthopedic Surgery [address] [place] [phone] Kevin Britton MD [address] [address] 08/10/2024 1:00 PM CDT Office Visit [facility] - MANDOLIN REPAIRER [address] [facility] [address] [place] [phone] Daja Mir MD [address] [facility] [place] [address] 10/26/2024 1:00 PM CDT Office Visit [facility] - Hematology/Oncology [address] [place] [phone] Elizabeth Garcia MD [address] [facility] [address] [place] [address] 01/17/2025 12:30 PM CDT Procedure visit [facility] - GI [address] [facility], [place] [address] 01/17/2025 1:00 PM CDT [facility] [place] [address] [place] [address], [facility] [place] [phone] Marlena Mccoy, FILTRATION OPERATOR-OCCUPATIONAL HEALTH NURSE MANAGER [address] [place] [address] [facility] [place] [address] documented as of this encounter Goals Goal Patient Goal Type Associated Problems Recent Progress Patient-Stated? Author Mobility General On track(05/12/19 21 9:08 AM SCHOOL LABORATORY TECHNICIAN) Tika Cunha, SABRINA Note: Expected end date: 05/05/2019 The goal is to maintain or improve your mobility at the optimum level for you. Interventions: documented as of this encounter Visit Diagnoses Diagnosis Primary osteoarthritis of left knee Primary localized osteoarthrosis, lower leg documented in this encounter Care Teams Shaker Screen Operator Relationship Specialty Start Date End Date Asher Garrison MD [address] [place] [phone] PCP - General 08/25/18 05/02/21 documented as of this encounter
--- OUTSIDE RECORDS SUMMARY | 2024-04-25 14:07 | XMS_ITS | Encounter Summary ---
Author Organization [facility] Address [address] [facility] [place] [address] Care Team Providers Care Network Operations Project Manager Name Role Phone Asher Garrison MD Primary Care Provider [phone] Encounter Details Date Type Department Care Team (Late Contact Info) Description 10/12/2019 Orders Only [facility] Hematology and Oncology-[address] [address] Edna Verde, RN Malignant neoplasm of nipple of left breast in female, unspecified estrogen receptor status (HCC) ; Hair loss Social History Tobacco Use Types Packs/Day Years [...] (Late Contact Info) Description 06/02/2024 10:30 AM POWER BALLAST MACHINE OPERATOR Office Visit [facility] - Orthopedic Surgery [facility] [place] [phone] Kevin Britton MD [address] [address] 08/10/2024 1:00 PM CDT Office Visit [facility] - CONTINUOUS VULCANIZING MACHINE OPERATOR 1031 [facility] [address] [place] [phone] Daja Mir MD 38[address] [facility] [place] [address] 10/26/2024 1:00 PM CDT Office Visit [facility] - Hematology/Oncology [address] [place] [phone] Elizabeth Garcia MD [address] [facility] [address] [place] [address] 01/17/2025 12:30 PM CDT Procedure visit [facility] [place] [address] [place] [address], [place] [phone] 01/17/2025 1:00 PM CDT Office Visit [facility] - GI [address] [facility], [place] [phone] Marlena Mccoy, REVIEW SCHEDULING COORDINATOR-NETWORK CONTROL TECHNICIAN [address] [place] [address] [facility] [place] [address] documented as of this encounter Goals Goal Patient Goal Type Associated Problems Recent Progress Patient-Stated? Author Mobility General On track(05/12/19 21 9:08 AM POWER BALLAST MACHINE OPERATOR) Tika Cunha, SABRINA Note: Expected end date: 05/05/2019 The goal is to maintain or improve your mobility at the optimum level for you. Interventions: documented as of this encounter Visit Diagnoses Diagnosis Malignant neoplasm of nipple of left breast in female, unspecified estrogen receptor status (HCC)- Primary Hair loss Alopecia, unspecified documented in this encounter Care Teams Network Operations Project Manager Relationship Specialty Start Date End Date Asher Garrison MD [address] [facility] [place] [address] PCP - General 08/25/18 05/02/21 documented as of this encounter
--- OUTSIDE RECORDS SUMMARY | 2024-04-25 14:07 | XMS_ITS | Encounter Summary ---
Author Organization [facility] Address [address] [facility] [address] Care Team Providers Care Bicycle Repair Technician Name Role Phone Asher Garrison MD Primary Care Provider [phone] Reason for Visit * Reason Comments Refill Request Encounter Details Date Type Department Care Team (Late Contact Info) Description 08/11/2019 Refill [facility] Orthopedic Surgery [address] [place] [address] Kevin Britton MD [address] [place] [address] Refill Request Social History Tobacco Use Types [...] Upcoming Encounters Date Type Department Care Team ([facility] Contact Info) Description 06/02/2024 10:30 AM TUBE DEPATCHER Office Visit [facility] - Orthopedic Surgery [address] [place] [phone] Kevin Britton MD [address] [place] [address] [address] [place] [address] 08/10/2024 1:00 PM CDT Office Visit [facility] - SUPERVISOR ADULT EDUCATION 1031 [facility] 400 [place] [address] Daja Mir MD 5701 [facility] [place] [address] 10/26/2024 1:00 PM CDT Office Visit [facility] - Hematology/Oncology [address] [place] [phone] Elizabeth Garcia MD [address] [facility] 3 [place] [address] 01/17/2025 12:30 PM CDT Procedure visit [facility] [place] [address] [place] [address], [facility] [place] [phone] 01/17/2025 1:00 PM CDT Office Visit [facility] - GI [address] [place] [address], [place] [phone] Marlena Mccoy, IRONWORKER MACHINE OPERATOR-NET SORTER [address] [place] [address] [facility] [place] [address] documented as of this encounter Goals Goal Patient Goal Type Associated Problems Recent Progress Patient-Stated? Author Mobility General On track(05/12/19 9:08 AM TUBE DEPATCHER) Tika Cunha, RN Note: Expected end date: 05/05/2019 The goal is to maintain or improve your mobility at the optimum level for you. Interventions: documented as of this encounter Visit Diagnoses Diagnosis Primary osteoarthritis of left knee Primary localized osteoarthrosis, lower leg documented in this encounter Care Teams Bicycle Repair Technician Relationship Specialty Start Date End Date Asher Garrison MD [address] [place] [address] PCP - General 08/25/18 05/02/21 documented as of this encounter
--- OUTSIDE RECORDS SUMMARY | 2024-04-25 14:07 | XMS_ITS | Encounter Summary ---
Author Organization [facility] Address [address] [place] [address] Care Team Providers Care Supervisor [employer] Name Role Phone Asher Garrison MD Primary Care Provider [phone] [phone] Reason for Visit * Reason Comments Alopecia pt states has gotten really bad the last couple on months no previous treatment Establish Care Encounter Details Date Type Department Care Team (Late st Contact Info) Description 10/19/2019 1:10 PM CDT Office Visit [facility] General Dermatology [address] [place], [place] [phone] Ilda Bustillos MD No Information available Other androgenic alopecia (Primary Dx); Other seborrheic dermatitis Social History Tobacco Use Types Packs/Day Years [...] on file documented as of this encounter Patient Instructions * Patient Instructions* Doc Srivastava MD - 10/19/2019 1:38 PM CDT team supervisor Rogaine (or generic minoxidil), get the 5% solution or foam. Apply daily to the entire scalp Take 1/4 pill finasteride daily Wash daily with ketoconazole shampoo. Let sit for 3-5 minutes before rinsing. documented in this encounter Progress Notes * Doc Srivastava MD - 10/19/2019 1:16 PM CDT Chief Complaint Patient presents with ??? Alopecia pt states has gotten really bad the last couple on months no previous treatment ??? Establish Care HPI: Milagros Torres a 54 year old female presents for skin exam. Concerns: 1. Has noticed that hair has been falling out excessively for the last few months. Brought this up to oncologist in september hgb was stable, thyroid was wnl. Notices hair coming out in the shower and morehair in her brush. 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 Past medical history, social history and family history were reviewed. ROS: As per HPI above. Patient denies fever, chills and night sweats. denies pruritus, denies pain, PE: No acute distress. Mood clear/affect appropriate. Alert and oriented. Mucous membranes moist. Sclera anicteric. Visible skin exam was conducted to include the scalp, face, lips/teeth, lids/conjunctiva, ears, neck, right and left hands and forearms and was normal with the following exceptions: - non scarring hair loss w/ preservation of frontal hairline - minaturization of hair follicles - hair pull test negative - scalp erythema A/P: Milagros was seen today for alopecia and establish care. Diagnoses and all orders for this visit: Other androgenic alopecia - finasteride (PROSCAR) 5 MG tablet; Take 1/4 pill daily. 30 day supply - non scarring, hair pull test negative, hx not supportive of TE per se - family hx androgenic alopecia - Rec keto shampoo and topical minoxidil - discussed oral 5alpha reductase inh and SE - start finasteride 5mg pills divided into 1/4s Other seborrheic dermatitis - ketoconazole (NIZORAL) 2 % shampoo; Apply to wet hair, leave on for 3 minutes, then rinse; three times weekly. 30 days supply - use daily RTC in 6 months Doc Srivastava MD Dermatology Resident, PGY-3 Associated attestation - Ilda Bustillos MD - 10/20/2019 9:59 AM CDT I have seen and examined the patient with the resident and I agree with the findings and plan of care as documented by the resident. Date of Service: 10/19/2019 Ilda Bustillos MD documented in this encounter Plan of Treatment Upcoming Encounters Date Type Department Care Team (Late st Contact Info) Description 06/02/2024 10:30 AM MORTGAGE LOAN ASSISTANT Office Visit [facility] - Orthopedic Surgery [address] [place] [phone] Kevin Britton MD 1031 [facility] [address] [place] [address] 08/10/2024 1:00 PM CDT Office Visit [facility] - PUBLIC HEALTH TECHNOLOGIST 1031 [facility] 400 [place] [phone] Daja Mir MD 5[address] [facility] [place] [address] 10/26/2024 1:00 PM CDT Office Visit [facility] - Hematology/Oncology [address] [place] [phone] Elizabeth Garcia MD 3660 [facility] 3 [place] [address] 01/17/2025 12:30 PM CDT Procedure visit [facility] - GI [address] [facility], [place] [phone] 01/17/2025 1:00 PM CDT Office Visit [facility] - GI [address] [facility], [place] [address] Marlena Mccoy, NON GARMENT SEWING MACHINE OPERATOR-MACHINE MOLDER SQUEEZE [address] [facility] [place] [address] documented as of this encounter Goals Goal Patient Goal Type Associated Problems Recent Progress Patient-Stated? Author Mobility General On track(05/12/19 9:08 AM MORTGAGE LOAN ASSISTANT) Tika Cunha, RN Note: Expected end date: 05/05/2019 The goal is to maintain or improve your mobility at the optimum level for you. Interventions: documented as of this encounter Visit Diagnoses Diagnosis Other androgenic alopecia- Primary Other seborrheic dermatitis documented in this encounter Care Teams Supervisor [employer] Relationship Specialty Start Date End Date Asher Garrison MD [address] [place] [phone] PCP - General 08/25/18 05/02/21 documented as of this encounter
--- OUTSIDE RECORDS SUMMARY | 2024-04-25 14:07 | XMS_ITS | Encounter Summary ---
Author Organization [facility] Address [address] [place], [place] [address] [address] Care Team Providers Care Customs Examiner Name Role Phone Asher Garrison MD Primary Care Provider [phone] Encounter Details Date Type Department Care Team (Late Contact Info) Description 03/12/2019 Orders Only [facility] Hematology and Oncology-[facility] [address] [place] [address] Edna Verde RN Abnormal laboratory test result ; Vitamin D deficiency, unspecified; Malignant neoplasm of nipple of left breast in female, unspecified estrogen receptor status (HCC) Social History Tobacco Use Types Packs/Day [...] (Late Contact Info) Description 06/02/2024 10:30 AM DIRECTOR OF MANUFACTURING Office Visit [facility] - Orthopedic Surgery 1031 [place] [phone] Kevin Britton MD [address] [address] 08/10/2024 1:00 PM CDT Office Visit [facility] - INVESTMENT STRATEGIST [address] [place] [phone] Daja Mir MD 0024 [facility] [place] [address] 10/26/2024 1:00 PM CDT Office Visit [facility] - Hematology/Oncology 3655 [place] [phone] Elizabeth Garcia MD 3661 [facility] [address] [place] [address] 01/17/2025 12:30 PM CDT Procedure visit [facility] Physician Group - GI 12[address] [facility], [place] [phone] 01/17/2025 1:00 PM CDT Office Visit [facility]ician [facility] - GI [address] [place] [address], [place] [phone] Marlena Mccoy, OIL WELL LOGGER-WATER SAFETY TEACHER [address] [place] [address] [place] [address] documented as of this encounter Goals Goal Patient Goal Type Associated Problems Recent Progress Patient-Stated? Author Mobility General On track(05/12/19 21 9:08 AM DIRECTOR OF MANUFACTURING) Tika Cunha, RN Note: Expected end date: 05/05/2019 The goal is to maintain or improve your mobility at the optimum level for you. Interventions: documented as of this encounter Results * (ABNORMAL) HEPATIC FUNCTION PANEL (03/15/2019 1:31 PM DIRECTOR OF MANUFACTURING) Protein Total 7.7 6.0 - 8.3 g/dL 019 1:59 PM DIRECTOR OF MANUFACTURING [facility] Albumin 3.9 3.4 - 5.0 g/dL 03/15/2019 1:59 PM [facility] Bilirubin Total 0.3 0.2 - 1.2 mg/dL 03/05 1:59 PM [facility] Bilirubin Conjugated 0.1 0.0 - 0.5 mg/dL 03/15/2019 1:59 PM [facility] Bilirubin Unconjugated 0.2 Unconjugated Bilirubin is a calculated value: Reference ranges have not been established. mg/dL 03/15/2019 1:59 PM [facility] Alkaline Phosphatase 88 40 - 150 Units/L 03/15/2019 1:59 PM [facility] ALT 50 0 - 55 Units/L 03/15/2019 1:59 PM [facility] AST 46(H) 5 - 34 Units/L 03/15/2019 1:59 PM [facility] Albumin/Globulin Ratio 1.0(L) 1.1 - 2.3 03/15/2019 1:59 PM [facility] Blood BLOOD SPECIMEN / Unknown Lab Venipuncture / Unknown 03/15/2019 1:31 PM DIRECTOR OF MANUFACTURING 03/15/2019 1:38 PM DIRECTOR OF MANUFACTURING Erma Neri MD LAB - CHEMISTRY LD [place]ÑA [facility] Organization Address City/State/[facility] Co de Phone Number [address] [phone] * (ABNORMAL) VITAMIN D 25-HYDROXY (03/15/2019 1:31 PM DIRECTOR OF MANUFACTURING) Vitamin D, 25 Hydroxy 11.2(L) See comment: ng/mL 03/15/2019 2:44 PM [facility] Comment: The recommendations for 25-Hydroxy Vitamin [...] Lab Venipuncture / Unknown 03/15/2019 1:31 PM DIRECTOR OF MANUFACTURING 03/15/2019 1:38 PM DIRECTOR OF MANUFACTURING Erma Neri MD LAB - CHEMISTRY LD [place] [facility] [address] [phone] * (ABNORMAL) COMPREHENSIVE METABOLIC PANEL (03/15/2019 1:31 PM DIRECTOR OF MANUFACTURING) BUN 15 7 - 26 mg/dL 03/15/2019 1:59 PM [facility] Creatinine 1.0 0.6 - 1.2 mg/dL 03/15/2019 1:59 PM [facility] Sodium 141 136 - 145 mmol/L 03/15/2019 1:59 PM [facility] Potassium 3.6 3.5 - 4.5 mmol/L 03/15/2019 1:59 PM [facility] Chloride 105 98 - 107 mmol/L 03/15/2019 1:59 PM [facility] CO2 27 22 - 29 mmol/L 03/15/2019 1:59 PM [facility] Glucose 91 70 - 115 mg/dL 03/15/2019 1:59 PM [facility] Calcium 9.8 8.4 - 10.2 mg/dL 03/15/2019 1:59 PM [facility] Protein Total 7.7 6.0 - 8.3 g/dL 03/15/2019 1:59 PM [facility] Albumin 3.9 3.4 - 5.0 g/dL 03/15/2019 1:59 PM [facility] Bilirubin Total 0.3 0.2 - 1.2 mg/dL 03/15/2019 1:59 PM [facility] Alkaline Phosphatase 88 40 - 150 Units/L 03/15/2019 1:59 PM [facility] ALT 50 0 - 55 Units/L 03/15/2019 1:59 PM [facility] AST 46(H) 5 - 34 Units/L 03/15/2019 1:59 PM [facility] Anion Gap 13 8 - 18 03/15/2019 1:59 PM [facility] BUN/Creatinine Ratio 15 7 - 23 03/15/2019 1:59 PM [facility] Osmolality Calculated 292 270 - 300 mOsm/kg 03/15/2019 1:59 PM [facility] Albumin/Globulin Ratio 1.0(L) 1.1 - 2.3 03/15/2019 1:59 PM [facility] eGFR 58(L) >60 mL/min/1.7 3 m2 03/15/2019 1:59 PM [facility] Blood BLOOD SPECIMEN / Unknown Lab Venipuncture / Unknown 03/15/2019 1:31 PM DIRECTOR OF MANUFACTURING 03/15/2019 1:38 PM DIRECTOR OF MANUFACTURING Erma Neri MD LAB - CHEMISTRY LD [place] [facility] Organization Address City/State/[facility] Co de Phone Number [address] [phone] * CBC WITH DIFFERENTIAL (03/15/2019 1:31 PM DIRECTOR OF MANUFACTURING) WBC 8.3 3.5 - 10.5 10? 3 /uL 03/15/2019 1:41 PM [facility] RBC 4.55 3.90 - 5.00 10? 6 /uL 03/15/2019 1:41 PM [facility] Hemoglobin 14.0 12.0 - 15.5 g/dL 03/15/2019 1:41 PM [facility] Hematocrit 42.2 35.0 - 45.0 % 03/15/2019 1:41 PM [facility] MCV 92.7 81.0 - 97.0 fL 03/15/2019 1:41 PM [facility] MCH 30.8 28.0 - 34.0 pg 03/15/2019 1:41 PM [facility] MCHC 33.2 32.0 - 36.0 g/dL 03/15/2019 1:41 PM [facility] Platelet Count 207 150 - 400 10? 3 /uL 03/15/2019 1:41 PM [facility] RDW-SD 43.0 36.0 - 50.0 fL 03/15/2019 1:41 PM [facility] RDW-CV 12.6 11.2 - 14.8 % 03/15/2019 1:41 PM [facility] MPV 10.9 9.3 - 12.8 fL 03/15/2019 1:41 PM [facility] nRBC Absolute 0.00 0 10? 3 /uL 03/15/2019 1:41 PM [facility] nRBC Auto 0.0 0 /100 WBC 03/15/2019 1:41 PM [facility] Neutrophils % 63.4 35.0 - 70.0 % 03/15/2019 1:41 PM [facility] Lymphocytes % 28.2 19.7 - 55.1 % 03/15/2019 1:41 PM [facility] Monocytes % 7.2 3.0 - 15.0 % 03/15/2019 1:41 PM [facility] Eosinophils % 0.4 0.0 - 6.0 % 03/15/2019 1:41 PM [facility] Basophil % 0.4 0.0 - 1.5 % 03/15/2019 1:41 PM [facility] Neutrophils Absolute 5.3 1.6 - 7.0 10? 3 /uL 03/15/2019 1:41 PM [facility] Lymphocyte Absolute 2.4 0.8 - 2.9 10? 3 /uL 03/15/2019 1:41 PM [facility] Monocytes Absolute 0.60 0.14 - 0.66 10? 3 /uL 03/15/2019 1:41 PM [facility] Eosinophils Absolute 0.03 0.00 - 0.45 10? 3 /uL 03/15/2019 1:41 PM [facility] Basophils Absolute 0.03 0.00 - 0.06 10? 3 /uL 03/15/2019 1:41 PM [facility] Immature Granulocytes % 0.4 0.0 - 1.0 % 03/15/2019 1:41 PM DIRECTOR OF MANUFACTURING [facility] Blood BLOOD SPECIMEN / Unknown Lab Venipuncture / Unknown 03/15/2019 1:31 PM DIRECTOR OF MANUFACTURING 03/15/2019 1:38 PM DIRECTOR OF MANUFACTURING Erma Neri MD LAB - HEMATOLOGY ORD ERABLES [facility] [address] [phone] documented in this encounter Visit Diagnoses Diagnosis Abnormal laboratory test result- Primary Other abnormal clinical finding Vitamin D deficiency, unspecified Malignant neoplasm of nipple of left breast in female, unspecified estrogen receptor status (HCC) documented in this encounter Care Teams Customs Examiner Relationship Specialty Start Date End Date Asher Garrison MD [address] [place] [phone] PCP - General 08/25/18 05/02/21 documented as of this encounter
--- OUTSIDE RECORDS SUMMARY | 2024-04-25 14:07 | XMS_ITS | Encounter Summary ---
Author Organization [facility] Address [address] [facility] [place] [address] Care Team Providers Care Licensed Club Manager Name Role Phone Asher Garrison MD Primary Care Provider [phone] Encounter Details Date Type Department Care Team (Late Contact Info) Description 10/12/2019 Orders Only [facility] Hematology and Oncology-[facility] [address] [place] [address] Erma Neri MD [address] [facility] 220 [place] [address] Social History Tobacco Use Types Packs/Day Years [...] (Late Contact Info) Description 06/02/2024 10:30 AM HOSPICE ADMITTING CLERK Office Visit [facility]ician Group - Orthopedic Surgery 1031 [place] [phone] Kevin Britton MD [address] [address] 08/10/2024 1:00 PM CDT Office Visit [facility] - STAKER SURVEYING [address] [facility] [address] [place] [phone] Daja Mir MD 5701 [facility] [place] [address] 10/26/2024 1:00 PM CDT Office Visit [facility] - Hematology/Oncology 3655 [place] [phone] Elizabeth Garcia MD [address] [facility] [address] [place] [address] 01/17/2025 12:30 PM CDT Procedure visit [facility] Physician Group - GI 1225 [facility], [place] [phone] 01/17/2025 1:00 PM CDT Office Visit [facility] Physician Group - GI 12[address] [facility], [place] [phone] Marlena Mccoy, MARKETING ENGINEER-MEDICAL EDUCATION COORDINATOR [address] [place] [address] [facility] [place] [address] documented as of this encounter Goals Goal Patient Goal Type Associated Problems Recent Progress Patient-Stated? Author Mobility General On track(05/12/19 21 9:08 AM HOSPICE ADMITTING CLERK) Tika Cunha, SABRINA Note: Expected end date: 05/05/2019 The goal is to maintain or improve your mobility at the optimum level for you. Interventions: documented as of this encounter Visit Diagnoses Not on filedocumented in this encounter Care Teams Licensed Club Manager Relationship Specialty Start Date End Date Asher Garrison MD [address] [facility] [place] [address] PCP - General 4/23/19 12/29/21 documented as of this encounter
--- OUTSIDE RECORDS SUMMARY | 2024-04-25 14:07 | XMS_ITS | Encounter Summary ---
Author Organization [facility] Address [address] [place] [address] Care Team Providers Care Cross Enterprise Integrator Name Role Phone Asher Garrison MD Primary Care Provider [phone] Encounter Details Date Type Department Care Team (Late st Contact Info) Description 03/15/2019 12:35 PM PERINATAL DIRECTOR - 03/15/2019 11:59 PM [facility] Hospital Encounter [facility] [address] [place] [address] Erma Neri MD 23 [facility] 220 [place] [address] Radiology Diagnostic Discharge Disposition: Home or Self Care Social [...] Sig Dispensed Refills Start Date End Date meloxicam (MOBIC) 15 MG tabletIndications:Primary osteoarthritis of left knee Take 1 tablet by mouth once daily 30 tablet 3 12/07/2018 04/20/2019 tamoxifen (NOLVADEX) 20 MG tablet Take 1 tablet by mouth 11/17/2015 04/05/2021 documented as of this encounter Plan of Treatment Upcoming Encounters Date Type Department Care Team (Late st Contact Info) Description 06/02/2024 10:30 AM PERINATAL DIRECTOR Office Visit [facility] Group - Orthopedic Surgery 1031 [place] [phone] Kevin Britton MD [address] [facility] 280 [place] [address] 08/10/2024 1:00 PM CDT Office Visit [facility] - MEDICAL ADVISOR 1031 [facility] 400 [place] [phone] Daja Mir MD 5708 [place] [address] 10/26/2024 1:00 PM CDT Office Visit [facility] - Hematology/Oncology 3655 [place] [phone] Elizabeth Garcia MD 3665 [facility] 3 [place] [address] 01/17/2025 12:30 PM CDT Procedure visit [facility] - GI [address] [place] [phone] 01/17/2025 1:00 PM CDT Office Visit [facility] - GI [address] [place] [phone] Marlena Mccoy, MANAGER ACTIVITIES-PERIODICALS LIBRARY ASSISTANT [address] [place] [address] [facility] [place] [address] documented as of this encounter Goals Goal Patient Goal Type Associated Problems Recent Progress Patient-Stated? Author Mobility General On track(05/12/19 9:08 AM PERINATAL DIRECTOR) Tika Cunha RN Note: Expected end date: 05/05/2019 The goal is to maintain or improve your mobility at the optimum level for you. Interventions: documented as of this encounter Procedures Procedure Name Priority Date/Time Associated Diagnosis Comments VITAMIN D 25-HYDROXY Routine 03/15/2019 1:31 PM PERINATAL DIRECTOR Abnormal laboratory test result Vitamin D deficiency, unspecified Malignant neoplasm of nipple of left breast in female, unspecified estrogen receptor status (HCC) CBC W AUTO DIFFERENTIAL Routine 03/15/2019 1:31 PM PERINATAL DIRECTOR Abnormal laboratory test result Vitamin D deficiency, unspecified Malignant neoplasm of nipple of left breast in female, unspecified estrogen receptor status (HCC) COMPREHENSIVE METABOLIC PANEL Routine 03/15/2019 1:31 PM PERINATAL DIRECTOR Abnormal laboratory test result Vitamin D deficiency, unspecified Malignant neoplasm of nipple of left breast in female, unspecified estrogen receptor status (HCC) HEPATIC FUNCTION PANEL STAT 9 1:31 PM PERINATAL DIRECTOR Abnormal laboratory test result Vitamin D deficiency, unspecified Malignant neoplasm of nipple of left breast in female, unspecified estrogen receptor status (HCC) documented in this encounter Results * (ABNORMAL) HEPATIC FUNCTION PANEL (03/15/2019 1:31 PM PERINATAL DIRECTOR) Protein Total 7.7 6.0 - 8.3 g/dL 019 1:59 PM [facility] Albumin 3.9 3.4 - 5.0 g/dL 03/15/2019 1:59 PM [facility] Bilirubin Total 0.3 0.2 - 1.2 mg/dL 03/05 1:59 PM [facility] Bilirubin Conjugated 0.1 0.0 - 0.5 mg/dL 03/15/2019 1:59 PM [facility] Bilirubin Unconjugated 0.2 Unconjugated Bilirubin is a calculated value: Reference ranges have not been established. mg/dL 03/15/2019 1:59 PM [facility] Alkaline Phosphatase 88 40 - 150 Units/L 03/15/2019 1:59 PM [facility] ALT 50 0 - 55 Units/L 03/15/2019 1:59 PM [facility] AST 46(H) 5 - 34 Units/L 03/15/2019 1:59 PM PERINATAL DIRECTOR [facility] Albumin/Globulin Ratio 1.0(L) 1.1 - 2.3 03/15/2019 1:59 PM PERINATAL DIRECTOR [facility] Blood BLOOD SPECIMEN / Unknown Lab Venipuncture / Unknown 03/15/2019 1:31 PM PERINATAL DIRECTOR 03/15/2019 1:38 PM PERINATAL DIRECTOR Erma Neri MD LAB - CHEMISTRY LD [place]DAÑA Performing Organization Address [facility] Co de Phone Number [address] [phone] * (ABNORMAL) VITAMIN D 25-HYDROXY (03/15/2019 1:31 PM PERINATAL DIRECTOR) Vitamin D, 25 Hydroxy 11.2(L) See comment: ng/mL 03/15/2019 2:44 PM PERINATAL DIRECTOR [facility] Comment: The recommendations for [...] Lab Venipuncture / Unknown 03/15/2019 1:31 PM PERINATAL DIRECTOR 03/15/2019 1:38 PM PERINATAL DIRECTOR Erma Neri MD LAB - CHEMISTRY LD [place]DAÑA [facility] [address] [phone] * (ABNORMAL) COMPREHENSIVE METABOLIC PANEL (03/15/2019 1:31 PM [facility]) BUN 15 7 - 26 mg/dL 03/15/2019 1:59 PM [facility] Creatinine 1.0 0.6 - 1.2 mg/dL 03/15/2019 1:59 PM [facility] Sodium 141 136 - 145 mmol/L 03/15/2019 1:59 PM [facility] Potassium 3.6 3.5 - 4.5 mmol/L 03/15/2019 1:59 PM [facility] Chloride 105 98 - 107 mmol/L 03/15/2019 1:59 PM [facility] CO2 27 22 - 29 mmol/L 03/15/2019 1:59 PM [facility] Glucose 91 70 - 115 mg/dL 03/15/2019 1:59 PM [facility] Calcium 9.8 8.4 - 10.2 mg/dL 03/15/2019 1:59 PM [facility] Protein Total 7.7 6.0 - 8.3 g/dL 03/15/2019 1:59 PM [facility] Albumin 3.9 3.4 - 5.0 g/dL 03/15/2019 1:59 PM [facility] Bilirubin Total 0.3 0.2 - 1.2 mg/dL 03/15/2019 1:59 PM [facility] Alkaline Phosphatase 88 40 - 150 Units/L 03/15/2019 1:59 PM [facility] ALT 50 0 - 55 Units/L 03/15/2019 1:59 PM [facility] AST 46(H) 5 - 34 Units/L 03/15/2019 1:59 PM [facility] Anion Gap 13 8 - 18 03/15/2019 1:59 PM [facility] BUN/Creatinine Ratio 15 7 - 23 03/15/2019 1:59 PM [facility] Osmolality Calculated 292 270 - 300 mOsm/kg 03/15/2019 1:59 PM [facility] Albumin/Globulin Ratio 1.0(L) 1.1 - 2.3 03/15/2019 1:59 PM [facility] eGFR 58(L) >60 mL/min/1.7 3 m2 03/15/2019 1:59 PM [facility] Blood BLOOD SPECIMEN / Unknown Lab Venipuncture / Unknown 03/15/2019 1:31 PM PERINATAL DIRECTOR 03/15/2019 1:38 PM PERINATAL DIRECTOR Erma Neri MD LAB - CHEMISTRY LD [place]DAÑA [facility] [address] [place] [address] * CBC WITH DIFFERENTIAL (03/15/2019 1:31 PM [facility]) WBC 8.3 3.5 - 10.5 10? 3 /uL 03/15/2019 1:41 PM [facility] RBC 4.55 3.90 - 5.00 10? 6 /uL 03/15/2019 1:41 PM [facility] Hemoglobin 14.0 12.0 - 15.5 g/dL 03/15/2019 1:41 PM [facility] Hematocrit 42.2 35.0 - 45.0 % 03/15/2019 1:41 PM [facility] MCV 92.7 81.0 - 97.0 fL 03/15/2019 1:41 PM [facility] MCH 30.8 28.0 - 34.0 pg 03/15/2019 1:41 PM [facility] MCHC 33.2 32.0 - 36.0 g/dL 03/15/2019 1:41 PM [facility] Platelet Count 207 150 - 400 10? 3 /uL 03/15/2019 1:41 PM [facility] RDW-SD 43.0 36.0 - 50.0 fL 03/15/2019 1:41 PM [facility] RDW-CV 12.6 11.2 - 14.8 % 03/15/2019 1:41 PM [facility] MPV 10.9 9.3 - 12.8 fL 03/15/2019 1:41 PM [facility] nRBC Absolute 0.00 0 10? 3 /uL 03/15/2019 1:41 PM [facility] nRBC Auto 0.0 0 /100 WBC 03/15/2019 1:41 PM [facility] Neutrophils % 63.4 35.0 - 70.0 % 03/15/2019 1:41 PM [facility] Lymphocytes % 28.2 19.7 - 55.1 % 03/15/2019 1:41 PM [facility] Monocytes % 7.2 3.0 - 15.0 % 03/15/2019 1:41 PM [facility] Eosinophils % 0.4 0.0 - 6.0 % 03/15/2019 1:41 PM [facility] Basophil % 0.4 0.0 - 1.5 % 03/15/2019 1:41 PM [facility] Neutrophils Absolute 5.3 1.6 - 7.0 10? 3 /uL 03/15/2019 1:41 PM [facility] Lymphocyte Absolute 2.4 0.8 - 2.9 10? 3 /uL 03/15/2019 1:41 PM [facility] Monocytes Absolute 0.60 0.14 - 0.66 10? 3 /uL 03/15/2019 1:41 PM [facility] Eosinophils Absolute 0.03 0.00 - 0.45 10? 3 /uL 03/15/2019 1:41 PM [facility] Basophils Absolute 0.03 0.00 - 0.06 10? 3 /uL 03/15/2019 1:41 PM [facility] Immature Granulocytes % 0.4 0.0 - 1.0 % 03/15/2019 1:41 PM [facility] Blood BLOOD SPECIMEN / Unknown Lab Venipuncture / Unknown 03/15/2019 1:31 PM PERINATAL DIRECTOR 03/15/2019 1:38 PM PERINATAL DIRECTOR Erma Neri MD LAB - HEMATOLOGY ORD ERABLES [facility] [address] [phone] documented in this encounter Visit Diagnoses Diagnosis Abnormal laboratory test result Other abnormal clinical finding Vitamin D deficiency, unspecified Malignant neoplasm of nipple of left breast in female, unspecified estrogen receptor status (HCC) documented in this encounter Care Teams Cross Enterprise Integrator Relationship Specialty Start Date End Date Asher Garrison MD [address] [place] [address] PCP - General 08/25/18 05/02/21 documented as of this encounter
--- OUTSIDE RECORDS SUMMARY | 2024-04-25 14:07 | XMS_ITS | Encounter Summary ---
Author Organization [facility] Address [address] [place] [address] Care Team Providers Care Digital Strategy Director Name Role Phone Asher Garrison MD Primary Care Provider [phone] [phone] Encounter Details Date Type Department Care Team (Latest Contact Info) Description 12/07/2018 1:17 PM CDT - 12/07/2018 11:59 PM CDT Hospital Encounter [facility] CSM 1L [address] [facility]. [facility] [place] [address] Stephanie Reynolds PA-C [address] [place] [address] Discharge Disposition: Home or Self Care Social [...] Take 1 tablet by mouth 11/17/2015 04/05/2021 tamoxifen (NOLVADEX) 20 MG tablet 1 tablet once daily 08/11/2018 03/10/2019 documented as of this encounter Plan of Treatment Upcoming Encounters Date Type Department Care Team (Late st Contact Info) Description 06/02/2024 10:30 AM RESIDENTIAL DESIGNER Office Visit [facility] - Orthopedic Surgery [address] [place] [phone] Kevin Britton MD [address] [facility] [address] [place] [address] 08/10/2024 1:00 PM CDT Office Visit [facility] - MOLDER PUNCH 10[address] [facility] [address] [place] [phone] Daja Mir MD 57[address] [facility] [place] [address] 10/26/2024 1:00 PM CDT Office Visit [facility] - Hematology/Oncology [address] [place] [phone] Elizabeth Garcia MD [address] [facility] 3 [place] [address] 01/17/2025 12:30 PM CDT Procedure visit [facility] - GI [address] [place] [phone] 01/17/2025 1:00 PM CDT Office Visit [facility] - GI [address] [place] [phone] Marlena Mccoy, POLISHING WHEEL REPAIRER-CLIENT ANALYST [address] [place] [address] [facility] [place] [address] documented as of this encounter Procedures Procedure Name Priority Date/Time Associated Diagnosis Comments XR KNEE LEFT 4VW OR MORE Routine 12/07/2018 1:29 PM CDT Left knee pain, unspecified chronicity documented in this encounter Results * XR KNEE LEFT 4VW OR MORE (12/07/2018 1:29 PM CDT) Anatomical Region Laterality Modality Lower Extremity Radiographic Alena ging 12/07/2018 1:38 PM CDT Impressions 12/07/2018 3:50 PM CDT Impression: 1. Mild degenerative changes. Dictated by Abbe Cordova MD (Resident) Dr. MARINA Lee M.D. have personally reviewed and interpreted this examination/study. This report was electronically signed by MARINA CONNER M.D. ??on 12/07/2018 3:50 PM . Narrative 12/07/2018 3:50 PM CDT Exam: ??XR KNEE LEFT 4 views Date: 12/07/2018 1:29 PM History: ??knee pain Comparison: None. Findings: There is mild narrowing of the medial joint compartment with small osteophytes. Minimal osteophytes are seen at the lateral compartment without joint space narrowing. Minimal osteophytes are seen at the patellofemoral joint. No acute fracture is seen. No joint effusion or surrounding soft tissue swelling is identified. Procedure Note Marina Conner MD - 12/07/2018 Exam: XR KNEE LEFT 4 views Date: 12/07/2018 1:29 PM History: knee pain Comparison: None. Findings: There is mild narrowing of the medial joint compartment with small osteophytes. Minimal osteophytes are seen at the lateral compartment without joint space narrowing. Minimal osteophytes are seen at the patellofemoral joint. No acute fracture is seen. No joint effusion or surrounding soft tissue swelling is identified. Impression: 1. Mild degenerative changes. Dictated by Abbe Cordova MD (Resident) Dr. MARINA Lee M.D. have personally reviewed and interpreted this examination/study. This report was electronically signed by MARINA CONNER M.D. on 12/07/2018 3:50 PM . Stephanie Reynolds PA-C DIAGNOSTIC IMAG ING ORDERABLES documented in this encounter Visit Diagnoses Diagnosis Left knee pain, unspecified chronicity documented in this encounter Care Teams Digital Strategy Director Relationship Specialty Start Date End Date Asher Garrison MD [address] [facility] [place] [address] PCP - General 08/25/18 05/02/21 documented as of this encounter
--- OUTSIDE RECORDS SUMMARY | 2024-04-25 14:07 | XMS_ITS | Encounter Summary ---
Author Organization [facility] Address [address] [facility] [place] [address] Care Team Providers Care Commercial Specialist Name Role Phone Asher Garrison MD Primary Care Provider [phone] Reason for Visit * Reason Comments Refill Request Encounter Details Date Type Department Care Team ([facility] Contact Info) Description 06/12/2019 Refill [facility] [address] [place] [phone] Kevin Britton MD [address] [place] [phone] Refill Request Social History Tobacco Use Types [...] Upcoming Encounters Date Type Department Care Team ([facility] Contact Info) Description 06/02/2024 10:30 AM FILM MAKER Office Visit [facility] - Orthopedic Surgery [address] [place] [phone] Kevin Britton MD [address] [place] [address] [address] [place] [address] 08/10/2024 1:00 PM CDT Office Visit [facility] - LAB SUPPORT TECH [address] [facility] 400 [place] [phone] Daja Mir MD 5701 [facility] [place] [address] 10/26/2024 1:00 PM CDT Office Visit [facility] - Hematology/Oncology [address] [place] [phone] Elizabeth Garcia MD 36[address] [facility] 3 [place] [address] 01/17/2025 12:30 PM CDT Procedure [place] [facility] [place] [address] [place] [address], [facility] [place] [place] [phone] 01/17/2025 1:00 PM CDT Office Visit [facility] - GI [address] [place] [address], [place] [phone] Marlena Mccoy, METROLOGY ENGINEER-DIET ASSISTANT [address] [place] [address] [facility] [place] [address] documented as of this encounter Goals Goal Patient Goal Type Associated Problems Recent Progress Patient-Stated? Author Mobility General On track(05/12/19 9:08 AM FILM MAKER) Tika Cunha, RN Note: Expected end date: 05/05/2019 The goal is to maintain or improve your mobility at the optimum level for you. Interventions: documented as of this encounter Visit Diagnoses Diagnosis Primary osteoarthritis of left knee Primary localized osteoarthrosis, lower leg documented in this encounter Care Teams Commercial Specialist Relationship Specialty Start Date End Date Asher Garrison MD [address] [place] [address] PCP - General 08/25/18 05/02/21 documented as of this encounter
--- OUTSIDE RECORDS SUMMARY | 2024-04-25 14:07 | XMS_ITS | Encounter Summary ---
Author Organization [facility] Address [address] [facility] [place] [address] Care Team Providers Care Education Rn Name Role Phone Asher Garrison MD Primary Care Provider [phone] Reason for Visit * Reason Comments Refill Request Encounter Details Date Type Department Care Team ([facility] Contact Info) Description 12/08/2019 Refill [facility] [address] [place] [phone] Kevin Britton MD [address] [place] [phone] Refill Request Social History Tobacco Use Types [...] Upcoming Encounters Date Type Department Care Team ([facility] Contact Info) Description 06/02/2024 10:30 AM CALIBRATION LABORATORY TECHNICIAN Office Visit [facility] - Orthopedic Surgery [address] [place] [phone] Kevin Britton MD [address] [place] [address] [address] [place] [address] 08/10/2024 1:00 PM CDT Office Visit [facility] - COMPENSATION AND BENEFITS MANAGER [address] [facility] [address] [place] [phone] Daja Mir MD 57[address] [facility] [place] [address] 10/26/2024 1:00 PM CDT Office Visit [facility] - Hematology/Oncology [address] [place] [phone] Elizabeth Garcia MD 3665 [facility] 3 [place] [address] 01/17/2025 12:30 PM CDT Procedure [facility] [address] [place] [address], [facility] [place] [phone] 01/17/2025 1:00 PM CDT Office Visit [facility] - GI [address] [place] [address], [place] [phone] Marlena Mccoy, METALIZING SUPERVISOR-RECYCLING TECHNICIAN [address] [place] [address] [facility] [place] [address] documented as of this encounter Goals Goal Patient Goal Type Associated Problems Recent Progress Patient-Stated? Author Mobility General On track(05/12/19 9:08 AM CALIBRATION LABORATORY TECHNICIAN) Tika Cunha, RN Note: Expected end date: 05/05/2019 The goal is to maintain or improve your mobility at the optimum level for you. Interventions: documented as of this encounter Visit Diagnoses Diagnosis Primary osteoarthritis of left knee Primary localized osteoarthrosis, lower leg documented in this encounter Care Teams Education Rn Relationship Specialty Start Date End Date Asher Garrison MD [address] [place] [address] PCP - General 08/25/18 05/02/21 documented as of this encounter
--- OUTSIDE RECORDS SUMMARY | 2024-04-25 14:08 | XMS_ITS | Encounter Summary ---
Author Organization [facility] Address [address] [place], [place] [address] [address] Care Team Providers Care Retail Receiving Clerk Name Role Phone Asher Garrison MD Primary Care Provider [phone] [phone] Reason for Referral * Radiology Services (Routine) - Closed Specialty Diagnoses / Procedures Referred By Americo t Referred To Contact Mammography Diagnoses Malignant neoplasm of left breast in female, estrogen receptor positive, unspecified site of breast (HCC) Procedures MAMMO BILAT DIAGNOSTIC Jan Hebert DO [address] [place] [address] [facility] Op [address] [place] [address] Referral ID Status Reason Start Date Expiration Date Visits Re quested Visits Authorized [id number] Closed 09/10/2018 03/09/2019 1 1 Encounter Details Date Type Department Care Team (Late st Contact Info) Description 09/10/2018 3:20 PM CDT Office Visit [facility] Hematology and Oncology-[facility] [address] [place] [address] Erma Neri MD [address] [facility] [address] [place] [address] Malignant neoplasm of left breast in female, estrogen receptor positive, unspecified site of breast (HCC) (Primary Dx) Social History Tobacco Use Types Packs/Day Years Used Date Smoking Tobacco: Never Smokeless Tobacco: Never Sex and Gender Information Value Date Recorded Sex Assigned at Not on file Gender Identity Not on file Sexual Orientation Not on file documented as of this encounter Last Filed Vital Signs Vital Sign Reading Time Taken Comments Blood Pressure 154/89 09/10/2018 3:08 PM CDT Pulse 68 09/10/2018 3:08 PM CDT Temperature 36.3 ??C (97.4 ??F) 09/10/2018 3:08 PM CD T Respiratory Rate 18 09/10/2018 3:08 PM CDT Oxygen Saturation 96% 09/10/2018 3:08 PM CDT Inhaled Oxygen Concentration - - Weight 91.1 kg (200 lb 14.4 oz) 09/10/2018 3:08 PM CDT Height 170.2 cm (5' 7 ) 09/10/2018 3:08 PM CDT Body Mass Index 31.47 09/10/2018 3:08 PM CDT documented in this encounter Progress Notes * Jan Hebert, - 09/10/2018 3:15 PM CDT Hematology/Oncology Clinic Initial Visit Note Milagros Torres Age: [age] year old Date of : 1965 Date of Visit 09/10/18 Reason for Visit Breast Cancer Attending physician Erma Neri Visit Type Initial PCP Asher Garrison MD Discipline Oncology History of Present Illness Milagros Torres is a 53 year old female with a past medical history significant for anxiety, depression, essential hypertension, and early-stage hormone positive left breast cancer who presents to clinic today to establish care. History obtained from patient and chart review. Noted to have an abnormal screening mammogram in June or July of 2015. Referred to [facility], where a left breast biopsy performed on 07/25/15 showed ER+/OR+/HER/2- invasive ductal carcinoma. US-guided FNA of the axillary lymph node was performed at the same time which was negative for metastatic disease. A left partial mastectomy was performed on 09/04/2015 which showed 1.5 cm, grade 2 IDC (pathologic [id number]) with negative margins. [place] lymph node biopsy was negative (0/1). She had a Oncotype DX score of 17. She was premenopausal at the time of diagnosis and started on tamoxifen. Receivedleft accelerated partial breast radiation (3850 cGy) between 10/11-10/20/[address] Thee Larson. She was followed at [facility] by Dr. Kyrie Baltazar where her LFTs were noted to be mildly elevated on a few separate occasions. Since starting tamoxifen, she has not had any periods, but has had a few episodes of spotting. Had a D&C by her pourer bull ladle after US showed a thickened endometrial stripe. Negative for carcinoma or hyperplasia. Tolerating therapy well, except for occasional hot flashes. Has complained for the past several months of sudden right breast pain that last for only a second. Cannot locate her pain by palpation, but says its in the center of her breast and moves across it. Evaluated by a mammogram back in January and later by a chest x-ray without any obvious pathology. Prior to this, she was diagnosed with shingles on her right-side. Rash has now resolved. No other complaints today. She had her diagnostic mammogram planned for tomorrow. Her family history is significant for her sister being diagnosed with stage III breast cancer at the age of 54. Later it became metastatic and at the age of 57. Ms. Torres had a negative BRCA 1/2 sequencing and deletion/duplication analysis. Menarche at age 12. Never used oral contraceptives or hormonal replacement therapy. She is a with first at age 21. Never breastfed. Oncologic History Stage I ([id number]) ER+/OR+/HER/2- Left invasive ductal carcinoma -07/2015: Abnormal mammogram 07/25/15: Breast biopsy showed invasive ductal carcinoma. Both ER and OR had a Lauren score 8/8 and HER/2 [...] left partial accelerated breast radiation (3850 cGy) Past Medical History: Past Medical History: Diagnosis Date ??? Breast cancer ??? Depression with anxiety ??? Hypertension Past Surgical History: Past Surgical History: Procedure Laterality Date ??? Breast Lumpectomy Left 09/04/2015 With sentinel node biopsy performed by Dr. Brittni Knight ??? Section 05/1990 Social History: Social History Substance Use Topics ??? Smoking status: Never Smoker ??? Smokeless tobacco: Never Used ??? Alcohol use Not on file Family History: Family History Problem Relation Age of Onset ??? Cancer - Lung Mother ??? Cancer - Breast Sister Allergies: No Known Allergies Home Medications: Current Outpatient Prescriptions Medication Sig ??? tamoxifen (NOLVADEX) 20 MG tablet 1 tablet once daily No current facility-administered medications for this visit. I have reviewed all medications. Review of Systems: Review of Systems Constitutional: Negative for fever, malaise/fatigue and weight loss. HENT: Negative for sore throat and tinnitus. Eyes: Negative for blurred vision and double vision. Respiratory: Negative for cough, hemoptysis and shortness of breath. Cardiovascular: Negative for chest pain, palpitations and leg swelling. Gastrointestinal: Negative for abdominal pain, constipation, diarrhea and nausea. Genitourinary: Negative for dysuria and hematuria. Musculoskeletal: Negative for falls and myalgias. Skin: Negative for rash. Neurological: Negative for focal weakness, seizures, weakness and headaches. Endo/Heme/Allergies: Does not bruise/bleed easily. Psychiatric/Behavioral: Negative for depression and memory loss. Vital Signs and Physical Exam: Vitals: 09/10/18 1508 BP: 154/89 Pulse: 68 Resp: 18 Temp: 97.4 ??F (36.3 ??C) SpO2: 96% Weight: 91.1 kg (200 lb 14.4 oz) Height: 1.702 m (5' 7 ) ECOG PS: 0 Physical Exam Constitutional: She is oriented to person, place, and time and well-developed, well-nourished, and in no distress. HENT: Head: Normocephalic and atraumatic. Eyes: Pupils are equal, round, and reactive to light. Conjunctivae and EOM are normal. Neck: Normal range of motion. Neck supple. No JVD present. Cardiovascular: Normal rate and regular rhythm. Pulmonary/Chest: Effort normal and breath sounds normal. Right breast exhibits no inverted nipple, no mass, no skin change and no tenderness. Left breast exhibits no inverted nipple, no mass, no skinchange and no tenderness. Abdominal: Soft. Bowel sounds are normal. Musculoskeletal: Normal range of motion. She exhibits no edema. Lymphadenopathy: She has no cervical adenopathy. She has no axillary adenopathy. Neurological: She is alert and oriented to person, place, and time. Skin: Skin is warm and dry. Psychiatric: Mood, memory, affect and judgment normal. Labs: Recent Labs Component Name 09/10/18 1622 WBC 6.1 RBC 4.03 HGB 12.5 HCT 37.5 MCV 93.1 MCHC 33.3 PLTCOUNT 180 NEUTPCT 52.1 NEUTABS 3.2 Recent Labs Component Name 09/10/18 1622 POTASSIUM 3.9 CO2 24 BUN 17 CREATININE 1.0 CALCIUM 9.3 ALKPHOS 94 ALT 41 AST 46* EGFR 58* Assessment and Recommendations: 53 year old female with hx of depression, anxiety, essential hypertension, and early-stage hormonalleft breast cancer who presents today to establish care. Stage I ([id number]) ER+/OR+/HER/2- Left invasive ductal carcinoma -Continue tamoxifen. Planning for 10 years of therapy. Patient has had prior discussion on switching to an AI. She would like to continue with tamoxifen, given that she is not experiencing any significant side effects. -Ordered a b/l diagnostic mammogram to be performed this month. Hx of elevated liver enzymes -Checked lab work today. AST mildly elevated at 46. Consider RUQ US if LFTs remain elevated to lookfor liver changes as she has two risk factors for NAFLD. \ 6 month follow-up. Will route note to Amber Tate CNM, NET APPLICATION ARCHITECT over at [place] [facility]. Patient and above recommendations were discussed with Hematology/Oncology attending, Erma Neri MD. Jan Hebert DO Hematology/Oncology Fellow [facility] [employer] Associated attestation - Erma Neri MD - 09/14/2018 9:46 AM CDT I have seen and examined the patient with the fellow/resident and I agree with the findings and plan of care as documented by the fellow/resident. Erma Neri MD Inspector Typehand etcher helper Hematology/Oncology [facility] documented in this encounter Plan of Treatment Upcoming Encounters Date Type Department Care Team (Late st Contact Info) Description 06/02/2024 10:30 AM PRINT GRAPHIC DESIGNER Office Visit [facility] - Orthopedic Surgery [address] [place] [phone] Kevin Britton MD [address] [place] [address] 08/10/2024 1:00 PM CDT Office Visit [facility] - ASSAYER HELPER [address] [facility] [address] [place] [phone] Daja Mir MD [address] [facility] [place] [address] 10/26/2024 1:00 PM CDT Office Visit [facility] - Hematology/Oncology [address] [place] [phone] Elizabeth Garcia MD [address] [facility] 3 [place] [address] 01/17/2025 12:30 PM CDT Procedure visit [facility] - [place] [address] [place] [phone] 01/17/2025 1:00 PM CDT Office Visit [facility] - GI [address] [place] [phone] Marlena Mccoy, SHINGLE CARRIER-NET APPLICATION ARCHITECT [address] [place] [address] [facility] [place] [address] documented as of this encounter Results * MAMMO BILAT DIAGNOSTIC (10/08/2018 10:58 AM CDT) Anatomical Region Laterality Modality Breast Bilateral Mammography 10/08/2018 10:3 7 AM CDT Impressions [...] conservation therapy in 2016. COMPARISON: Mammograms from [facility] including 02/06/2018 (right CC view only), 08/01/2017 (right CC and right MLO views only), 07/05/2016, 07/12/2015, 07/06/2015. BREAST COMPOSITION: There are scattered areas of fibroglandular density. FINDINGS: Posttreatment changes in the left breast. No suspicious mass, architectural distortion, or calcifications in either breast. Ultrasound of the area of symptoms performed by the medical practice manager. She points to pain in the upper outer right breast. There is no suspicious solid or cystic mass. Jan Hebert DO MAMMJhoana ORDERABLES * CBC WITH DIFFERENTIAL (09/10/2018 4:22 PM CDT) WBC 6.1 3.5 - 10.5 10? 3 /uL 09/10/2018 5:18 PM CDT [facility] RBC 4.03 3.90 - 5.00 10? 6 /uL 09/10/2018 5:18 PM [facility] Hemoglobin 12.5 12.0 - 15.5 g/dL 09/10/2018 5:18 PM [facility] Hematocrit 37.5 35.0 - 45.0 % 09/10/2018 5:18 PM [facility] MCV 93.1 81.0 - 97.0 fL 09/10/2018 5:18 PM [facility] MCH 31.0 28.0 - 34.0 pg 09/10/2018 5:18 PM [facility] MCHC 33.3 32.0 - 36.0 g/dL 09/10/2018 5:18 PM [facility] Platelet Count 180 150 - 400 10? 3 /uL 09/10/2018 5:18 PM [facility] RDW-SD 44.9 36.0 - 50.0 fL 09/10/2018 5:18 PM [facility] RDW-CV 13.2 11.2 - 14.8 % 09/10/2018 5:18 PM [facility] MPV 11.8 9.3 - 12.8 fL 09/10/2018 5:18 PM [facility] nRBC Absolute 0.00 0 10? 3 /uL 09/10/2018 5:18 PM [facility] nRBC Auto 0.0 0 /100 WBC 09/10/2018 5:18 PM [facility] Neutrophils % 52.1 35.0 - 70.0 % 09/10/2018 5:18 PM [facility] Lymphocytes % 37.2 19.7 - 55.1 % 09/10/2018 5:18 PM [facility] Monocytes % 7.4 3.0 - 15.0 % 09/10/2018 5:18 PM [facility] Eosinophils % 2.6 0.0 - 6.0 % 09/10/2018 5:18 PM [facility] Basophil % 0.5 0.0 - 1.5 % 09/10/2018 5:18 PM [facility] Neutrophils Absolute 3.2 1.6 - 7.0 10? 3 /uL 09/10/2018 5:18 PM [facility] Lymphocyte Absolute 2.3 0.8 - 2.9 10? 3 /uL 09/10/2018 5:18 PM [facility] Monocytes Absolute 0.45 0.14 - 0.66 10? 3 /uL 09/10/2018 5:18 PM [facility] Eosinophils Absolute 0.16 0.00 - 0.45 10? 3 /uL 09/10/2018 5:18 PM [facility] Basophils Absolute 0.03 0.00 - 0.06 10? 3 /uL 09/10/2018 5:18 PM [facility] Immature Granulocytes % 0.2 0.0 - 1.0 % 09/10/2018 5:18 PM [facility] Blood BLOOD SPECIMEN / Unknown Lab Venipuncture / Unknown 09/10/2018 4:22 PM CDT 09/10/2018 4:26 PM CDT Jan Hebert DO LAB - HEMATOLOGY OR DERABLES [facility] [address] [phone] * (ABNORMAL) BASIC METABOLIC PANEL (CALCIUM TOTAL) (09/10/2018 4:22 PM CDT) BUN 17 7 - 26 mg/dL 09/10/2018 5:48 PM [facility] Creatinine 1.0 0.6 - 1.2 mg/dL 09/10/2018 5:48 PM [facility] Sodium 143 136 - 145 mmol/L 09/10/2018 5:48 PM [facility] Potassium 3.9 3.5 - 4.5 mmol/L 09/10/2018 5:48 PM [facility] Chloride 109(H) 98 - 107 mmol/L 09/10/2018 5:48 PM [facility] CO2 24 22 - 29 mmol/L 09/10/2018 5:48 PM [facility] Glucose 92 70 - 115 mg/dL 09/10/2018 5:48 PM [facility] Calcium 9.3 8.4 - 10.2 mg/dL 09/10/2018 5:48 PM [facility] Anion Gap 14 8 - 18 09/10/2018 5:48 PM [facility] BUN/Creatinine Ratio 17 7 - 23 09/10/2018 5:48 PM [facility] Osmolality Calculated 297 270 - 300 mOsm/kg 09/10/2018 5:48 PM CDT [facility] eGFR 58(L) >60 mL/min/1.7 3 m2 09/10/2018 5:48 PM CDT [facility] Blood BLOOD SPECIMEN / Unknown Lab Venipuncture / Unknown 09/10/2018 4:22 PM CDT 09/10/2018 4:26 PM CDT Jan Hebert LAB - CHEMISTRY ORD ERABLES [address] [phone] * (ABNORMAL) HEPATIC FUNCTION PANEL (09/10/2018 4:22 PM CDT) [facility] [address] Protein Total 7.4 6.0 - 8.3 g/dL 019 5:48 PM [facility] Albumin 3.6 3.4 - 5.0 g/dL 09/10/2018 5:48 PM [facility] Bilirubin Total 0.2 0.2 - 1.2 mg/dL 01/2019 5:48 PM [facility] Bilirubin Conjugated 0.1 0.0 - 0.5 mg/dL 09/10/2018 5:48 PM [facility] Bilirubin Unconjugated 0.1 Unconjugated Bilirubin is a calculated value: Reference ranges have not been established. mg/dL 09/10/2018 5:48 PM [facility] Alkaline Phosphatase 94 40 - 150 Units/L 09/10/2018 5:48 PM [facility] ALT 41 0 - 55 Units/L 09/10/2018 5:48 PM [facility] AST 46(H) 5 - 34 Units/L 09/10/2018 5:48 PM [facility] Albumin/Globulin Ratio 0.9(L) 1.1 - 2.3 09/10/2018 5:48 PM T [facility] Blood BLOOD SPECIMEN / Unknown Lab Venipuncture / Unknown 09/10/2018 4:22 PM CDT 09/10/2018 4:26 PM CDT [facility] [place] [address], [facility] [phone] documented in this encounter Visit Diagnoses Diagnosis Malignant neoplasm of left breast in female, estrogen receptor positive, unspecified site of breast (HCC)- Primary Malignant neoplasm of left breast in female, estrogen receptor positive, unspecified site of breast (HCC) documented in this encounter Care Teams Retail Receiving Clerk Relationship Specialty Start Date End Date Asher Garrison MD [address] [place] [phone] PCP - General 08/25/18 05/02/21 documented as of this encounter
--- OUTSIDE RECORDS SUMMARY | 2024-04-25 14:08 | XMS_ITS | Encounter Summary ---
Author Organization [facility] Address [address] [place], [place] [address] [place] [address] Care Team Providers Care Human Intelligence Name Role Phone Asher Garrison MD Primary Care Provider +[phone] Reason for Referral * Radiology Services (Routine) - Closed Specialty Diagnoses / Procedures Referred By Contac t Referred To Contact Mammography Diagnoses Malignant neoplasm of left breast in female, estrogen receptor positive, unspecified site of breast (HCC) Procedures [employer] Jan Hebert DO [address] [place] [address] [facility] Op [address] [place] [address] Referral ID Status Reason Start Date Expiration Date Visits Re quested Visits Authorized [id number] Closed 10/08/2018 04/06/2019 1 1 Reason for Visit * Radiology Services (Routine) - Closed Specialty Diagnoses / Procedures Referred By Contac t Referred To Contact Mammography Diagnoses Malignant neoplasm of left breast in female, estrogen receptor positive, unspecified site of breast (HCC) Procedures BREAST [email or web address] Jan Hebert DO [address] [place] [address] [facility] Breast [place] Op [address] [place] [address] Referral ID Status Reason Start Date Expiration Date Visits Re quested Visits Authorized [id number] Closed 10/08/2018 04/06/2019 1 1 Encounter Details Date Type Department Care Team (Latest Contact Info) Description 10/08/2018 11:01 AM CDT - 10/08/2018 11:59 PM CDT Hospital Encounter [facility] [address] [place] [address] Jan Hebert DO [address] [place] [address] Discharge Disposition: Home or Self Care Social History Tobacco Use Types Packs/Day Years Used Date Smoking Tobacco: Never Smokeless Tobacco: Never Sex and Gender Information Value Date Recorded Sex Assigned at Not on file Gender Identity Not on file Sexual Orientation Not on file documented as of this encounter Medications at Time of Discharge Medication Sig Dispensed Refills Start Date End Date tamoxifen (NOLVADEX) 20 MG tablet Take 1 tablet by mouth 11/17/2015 04/05/2021 tamoxifen (NOLVADEX) 20 MG tablet 1 tablet once daily 08/11/2018 03/10/20 19 documented as of this encounter Plan of Treatment Upcoming Encounters Date Type Department Care Team (Late st Contact Info) Description 06/02/2024 10:30 AM PAYROLL CLERK Office Visit [facility] - Orthopedic Surgery [address] [place] [phone] Kevin Britton MD 10[address] [facility] [address] [place] [address] 08/10/2024 1:00 PM CDT Office Visit [facility] - TIRE REPAIRMAN [address] [facility] [address] [place] [phone] Daja Mir MD [address] [facility] [place] [address] 10/26/2024 1:00 PM CDT Office Visit [facility] - Hematology/Oncology [address] [place] [phone] Elizabeth Garcia MD [address] [place] [address] [place] [address] 01/17/2025 12:30 PM CDT Procedure visit [facility] - [address] [place] [address], [place] [phone] 01/17/2025 1:00 PM CDT Office Visit [facility] - GI [address] [facility], [place] [phone] Marlena Mccoy, WIND PROJECTS SUPERVISOR-FREIGHT TRAFFIC CONSULTANT [address] [place] [address] [facility] [place] [address] documented as of this encounter Procedures Procedure Name Priority Date/Time Associated Diagnosis Comments US BREAST RIGHT LTD Routine 10/08/2018 1 1:16 AM CDT Malignant neoplasm of left breast in female, estrogen receptor positive, unspecified site of breast (HCC) documented in this encounter Results * US BREAST RIGHT LTD (10/08/2018 11:16 AM CDT) [...] conservation therapy in 2016. COMPARISON: Mammograms from [facility] including 02/06/2018 (right CC view only), 08/01/2017 (right CC and right MLO views only), 07/05/2016, 07/12/2015, 07/06/2015. BREAST COMPOSITION: There are scattered areas of fibroglandular density. FINDINGS: Posttreatment changes in the left breast. No suspicious mass, architectural distortion, or calcifications in either breast. Ultrasound of the area of symptoms performed by the exploration driller. She points to pain in the upper outer right breast. There is no suspicious solid or cystic mass. Jan STEWART ORDERABLES documented in this encounter Visit Diagnoses Diagnosis Malignant neoplasm of left breast in female, estrogen receptor positive, unspecified site of breast (HCC) documented in this encounter Care Teams Human Intelligence Relationship Specialty Start Date End Date Asher Garrison MD [address] [place] [phone] PCP - General 08/25/18 05/02/21 documented as of this encounter
--- OUTSIDE RECORDS SUMMARY | 2024-04-25 14:08 | XMS_ITS | Encounter Summary ---
Author Organization [facility] Address [address] [facility] [place] [address] Care Team Providers Care Tourist Home Keeper Name Role Phone Asher Garrison MD Primary Care Provider [phone] [phone] Reason for Referral * Radiology Services (Routine) - Closed Specialty Diagnoses / Procedures Referred By Contac t Referred To Contact Mammography Diagnoses Malignant neoplasm of left breast in female, estrogen receptor positive, unspecified site of breast (HCC) Procedures MAMMO BILAT DIAGNOSTIC Jan Hebert DO [address] [place] [address] [facility] Op [address] [place] [address] Referral ID Status Reason Start Date Expiration Date Visits Re quested Visits Authorized [id number] Closed 09/10/2018 03/09/2019 1 1 Reason for Visit * Radiology Services (Routine) - Closed Specialty Diagnoses / Procedures Referred By Contac t Referred To Contact Mammography Diagnoses Malignant neoplasm of left breast in female, estrogen receptor positive, unspecified site of breast (HCC) Procedures MAMMO BILAT DIAGNOSTIC Jan Hebert DO [address] [place] [address] [facility] Op [address] [place] [address] Referral ID Status Reason Start Date Expiration Date Visits Re quested Visits Authorized [id number] Closed 09/10/2018 03/09/2019 1 1 Encounter Details Date Type Department Care Team (Latest Contact Info) Description 10/08/2018 10:00 AM CDT - 10/08/2018 11:00 AM CDT Hospital Encounter [facility] [address] [place] [address] Jan Hebert DO [address] [place] [address] Discharge Disposition: Home or Self Care Social [...] st Contact Info) Description 06/02/2024 10:30 AM LABOR RELATIONS ANALYST Office Visit [facility] - Orthopedic Surgery [address] [place] [phone] Kevin Britton MD 1031 [facility] [address] [place] [address] 08/10/2024 1:00 PM CDT Office Visit [facility] - ROLL WINDER 10[address] [facility] 400 [place] [phone] Daja Mir MD 5703 [facility] [place] [address] 10/26/2024 1:00 PM CDT Office Visit [facility] - Hematology/Oncology [address] [place] [phone] Elizabeth Garcia MD [address] [place] [address] 01/17/2025 12:30 PM CDT Procedure visit [facility] - GI [address] [facility], [place] [phone] 01/17/2025 1:00 PM CDT Office Visit [facility] - GI [address] [facility], [place] [phone] Marlena Mccoy, RN [facility]ERN[facility] REP [address] [place] [address] [facility] [place] [address] documented as of this encounter Procedures Procedure Name Priority Date/Time Associated Diagnosis Comments MAMMO BILAT DIAGNOSTIC Routine 10/08/2018 10:58 AM CDT Malignant neoplasm of left breast in female, estrogen receptor positive, unspecified site of breast (HCC) documented in this encounter Results * MAMMO [...] conservation therapy in 2016. COMPARISON: Mammograms from [facility] including 02/06/2018 (right CC view only), 08/01/2017 (right CC and right MLO views only), 07/05/2016, 07/12/2015, 07/06/2015. BREAST COMPOSITION: There are scattered areas of fibroglandular density. FINDINGS: Posttreatment changes in the left breast. No suspicious mass, architectural distortion, or calcifications in either breast. Ultrasound of the area of symptoms performed by the canvassing manager. She points to pain in the upper outer right breast. There is no suspicious solid or cystic mass. Jan Hebert DO MAMMO ORDERABLES documented in this encounter Visit Diagnoses Diagnosis Malignant neoplasm of left breast in female, estrogen receptor positive, unspecified site of breast (HCC) documented in this encounter Care Teams Tourist Home Keeper Relationship Specialty Start Date End Date Asher Garrison MD [address] [place] [phone] PCP - General 08/25/18 05/02/21 documented as of this encounter
--- OUTSIDE RECORDS SUMMARY | 2024-04-25 14:08 | XMS_ITS | Encounter Summary ---
Author Organization [facility] Address [address] [facility] [place] [address] Care Team Providers Care Director Of Home Economics Name Role Phone Asher Garrison MD Primary Care Provider [phone] [phone] Encounter Details Date Type Department Care Team (Late Contact Info) Description 12/04/2018 Orders Only [facility] - Orthopedics [address] [facility] [place] [address] Stephanie Reynolds PA-C [address] [place] [address] Left knee pain, unspecified chronicity Social History Tobacco Use Types Packs/Day Years Used Date Smoking Tobacco: Never Smokeless Tobacco: Never Sex and Gender Information Value Date Recorded Sex Assigned at Not on file Gender Identity Not on file Sexual Orientation Not on file documented as of this encounter Plan of Treatment Upcoming Encounters Date Type Department Care Team (Late Contact Info) Description 06/02/2024 10:30 AM SURGICAL SERVICES TECH Office Visit [facility] - Orthopedic Surgery [address] [place] [phone] Kevin Britton MD 1031 [facility] 280 [place], [place] [phone] 08/10/2024 1:00 PM CDT Office Visit [facility] - DEPUTY HARBORMASTER [address] [place] [address] 400 [place] [phone] Daja Mir MD [address] [facility] [place] [address] 10/26/2024 1:00 PM CDT Office Visit [facility] - Hematology/Oncology [address] [facility] [place] [phone] Elizabeth Garcia MD [address] [facility] [address] [place] [address] 01/17/2025 12:30 PM CDT Procedure visit [facility] [place] [address] [place] [phone] 01/17/2025 1:00 PM CDT Office Visit [facility] - GI [address] [place] [phone] Marlena Mccoy, BATTERY PLATE ASSEMBLER-SAFETY PROFESSIONAL [address] [place] [address] [facility] [place] [address] documented as of this encounter Results * XR KNEE LEFT 4VW OR MORE (12/07/2018 1:29 PM CDT) Anatomical Region Laterality Modality Lower Extremity Radiographic Alena ging 12/07/2018 1:38 PM CDT Impressions 12/07/2018 3:50 PM CDT Impression: 1. Mild degenerative changes. Dictated by Abbe Cordova MD (Resident) I, Dr. MARINA CONNER M.D. have personally reviewed and interpreted this [...] 1. Mild degenerative changes. Dictated by Abbe Codrova MD (Resident) I, Dr. MARINA CONNER M.D. have personally reviewed and interpreted this examination/study. This report was electronically signed by MARINA CONNER M.D. on 12/07/2018 3:50 PM . Stephanie Reynolds PA-C DIAGNOSTIC IMAG ING ORDERABLES documented in this encounter Visit Diagnoses Diagnosis Left knee pain, unspecified chronicity- Primary Left knee pain, unspecified chronicity documented in this encounter Care Teams Director Of Home Economics Relationship Specialty Start Date End Date Asher Garrison MD [address] [place] [phone] PCP - General 08/25/18 05/02/21 documented as of this encounter
--- OUTSIDE RECORDS SUMMARY | 2024-04-25 14:08 | XMS_ITS | Encounter Summary ---
Author Organization [facility] Address [address] [facility] [place] [address] Care Team Providers Care Core Measures Abstractor Name Role Phone Asher Garrison MD Primary Care Provider [phone] [phone] Encounter Details Date Type Department Care Team (Latest Contact Info) Description 09/10/2018 4:16 PM CDT - 09/10/2018 11:59 PM CDT Hospital Encounter [facility] OP [place]RAW [place]ATION [address] [place] [phone] Jan Hebert DO [address] [place] [address] Discharge Disposition: Home or Self Care Social [...] st Contact Info) Description 06/02/2024 10:30 AM CASHIER AND WAITER/WAITRESS Office Visit [facility] - Orthopedic Surgery [address] [place] [address] Kevin Britton MD [address] [place] [address] 08/10/2024 1:00 PM CDT Office Visit [facility] - CALENDER MACHINE OPERATOR [address] [facility] [address] [place] [phone] Daja Mir MD [address] [facility] [place] [place] [address] 10/26/2024 1:00 PM CDT Office Visit [facility] - Hematology/Oncology [address] [place] [phone] Elizabeth Garcia MD [address] [facility] [address] [place] [address] 01/17/2025 12:30 PM CDT Procedure visit [facility] - GI [address] [place] [phone] 01/17/2025 1:00 PM CDT Office Visit [facility] - GI [address] [place] [phone] Marlena Mccoy, ETIOLOGY TEACHER-MARBLE MECHANIC HELPER [address] [place] [address] [facility] [place] [address] documented as of this encounter Procedures Procedure Name Priority Date/Time Associated Diagnosis Comments CBC W AUTO DIFFERENTIAL Routine 09/10/2018 4:22 PM CDT Malignant neoplasm of left breast in female, estrogen receptor positive, unspecified site of breast (HCC) BASIC METABOLIC PANEL (CALCIUM TOTAL) Routine 09/10/2018 4:22 PM CDT Malignant neoplasm of left breast in female, estrogen receptor positive, unspecified site of breast (HCC) HEPATIC FUNCTION PANEL Routine 09/10/2018 4:22 PM CDT Malignant neoplasm of left breast in female, estrogen receptor positive, unspecified site of breast (HCC) documented in this encounter Results * CBC WITH DIFFERENTIAL (09/10/2018 4:22 PM [facility]) WBC 6.1 3.5 - 10.5 10? 3 /uL 09/10/2018 5:18 PM [facility] RBC 4.03 3.90 - 5.00 10? 6 /uL 09/10/2018 5:18 PM [facility] Hemoglobin 12.5 12.0 - 15.5 g/dL 09/10/2018 5:18 PM [facility] Hematocrit 37.5 35.0 - 45.0 % 09/10/2018 5:18 PM [facility] MCV 93.1 81.0 - 97.0 fL 09/10/2018 5:18 PM [facility] MCH 31.0 28.0 - 34.0 pg 09/10/2018 5:18 PM [facility] MCHC 33.3 32.0 - 36.0 g/dL 09/10/2018 5:18 PM [facility] Platelet Count 180 150 - 400 10? 3 /uL 09/10/2018 5:18 PM [facility] RDW-SD 44.9 36.0 - 50.0 fL 09/10/2018 5:18 PM [facility] RDW-CV 13.2 11.2 - 14.8 % 09/10/2018 5:18 PM [facility] MPV 11.8 9.3 - 12.8 fL 09/10/2018 5:18 PM [facility] nRBC Absolute 0.00 0 10? 3 /uL 09/10/2018 5:18 PM [facility] nRBC Auto 0.0 0 /100 WBC 09/10/2018 5:18 PM [facility] Neutrophils % 52.1 35.0 - 70.0 % 09/10/2018 5:18 PM [facility] Lymphocytes % 37.2 19.7 - 55.1 % 09/10/2018 5:18 PM [facility] Monocytes % 7.4 3.0 - 15.0 % 09/10/2018 5:18 PM [facility] Eosinophils % 2.6 0.0 - 6.0 % 09/10/2018 5:18 PM CDT [facility] Basophil % 0.5 0.0 - 1.5 % 09/10/2018 5:18 PM T [facility] Neutrophils Absolute 3.2 1.6 - 7.0 10? 3 /uL 09/10/2018 5:18 PM CDT [facility] Lymphocyte Absolute 2.3 0.8 - 2.9 10? 3 /uL 09/10/2018 5:18 PM CDT [facility] Monocytes Absolute 0.45 0.14 - 0.66 10? 3 /uL 09/10/2018 5:18 PM CDT [facility] Eosinophils Absolute 0.16 0.00 - 0.45 10? 3 /uL 09/10/2018 5:18 PM T [facility] Basophils Absolute 0.03 0.00 - 0.06 10? 3 /uL 09/10/2018 5:18 PM [facility] Immature Granulocytes % 0.2 0.0 - 1.0 % 09/10/2018 5:18 PM T [facility] Blood BLOOD SPECIMEN / Unknown Lab Venipuncture / Unknown 09/10/2018 4:22 PM CDT 09/10/2018 4:26 PM CDT Jan Hebert DO LAB - HEMATOLOGY OR DERABLES Performing Organization Address City/State/[facility] Co de Phone Number [facility] [address] [phone] * (ABNORMAL) BASIC METABOLIC PANEL (CALCIUM TOTAL) (09/10/2018 4:22 PM CDT) BUN 17 7 - 26 mg/dL 09/10/2018 5:48 PM CDT [facility] Creatinine 1.0 0.6 - 1.2 mg/dL 09/10/2018 5:48 PM [facility] Sodium 143 136 - 145 mmol/L 09/10/2018 5:48 PM T [facility] Potassium 3.9 3.5 - 4.5 mmol/L 09/10/2018 5:48 PM T [facility] Chloride 109(H) 98 - 107 mmol/L 09/10/2018 5:48 PM [facility] CO2 24 22 - 29 mmol/L 09/10/2018 5:48 PM [facility] Glucose 92 70 - 115 mg/dL 09/10/2018 5:48 PM [facility] Calcium 9.3 8.4 - 10.2 mg/dL 09/10/2018 5:48 PM [facility] Anion Gap 14 8 - 18 09/10/2018 5:48 PM [facility] BUN/Creatinine Ratio 17 7 - 23 09/10/2018 5:48 PM [facility] Osmolality Calculated 297 270 - 300 mOsm/kg 09/10/2018 5:48 PM [facility] eGFR 58(L) >60 mL/min/1.7 3 m2 09/10/2018 5:48 PM [facility] Blood BLOOD SPECIMEN / Unknown Lab Venipuncture / Unknown 09/10/2018 4:22 PM CDT 09/10/2018 4:26 PM T Jan Hebert DO LAB - CHEMISTRY ORD ERABLES [facility] [address] [place] [address] * (ABNORMAL) HEPATIC FUNCTION PANEL (09/10/2018 4:22 PM CDT) Protein Total 7.4 6.0 - 8.3 g/dL 019 5:48 PM [facility] Albumin 3.6 3.4 - 5.0 g/dL 09/10/2018 5:48 PM [facility] Bilirubin Total 0.2 0.2 - 1.2 mg/dL 01/2019 5:48 PM [facility] Bilirubin Conjugated 0.1 0.0 - 0.5 mg/dL 09/10/2018 5:48 PM [facility] Bilirubin Unconjugated 0.1 Unconjugated Bilirubin is a calculated value: Reference ranges have not been established. mg/dL 09/10/2018 5:48 PM [facility] Alkaline Phosphatase 94 40 - 150 Units/L 09/10/2018 5:48 PM CDT [facility] ALT 41 0 - 55 Units/L 09/10/2018 5:48 PM CDT [facility] AST 46(H) 5 - 34 Units/L 09/10/2018 5:48 PM CDT [facility] Albumin/Globulin Ratio 0.9(L) 1.1 - 2.3 09/10/2018 5:48 PM CDT [facility] Blood BLOOD SPECIMEN / Unknown Lab Venipuncture / Unknown 09/10/2018 4:22 PM CDT 09/10/2018 4:26 PM CDT Jan Hebert DO LAB - CHEMISTRY ORD ERABLES [facility] [address] [phone] documented in this encounter Visit Diagnoses Diagnosis Malignant neoplasm of left breast in female, estrogen receptor positive, unspecified site of breast (HCC) documented in this encounter Care Teams Core Measures Abstractor Relationship Specialty Start Date End Date Asher Garrison MD [address] [place] [address] PCP - General 08/25/18 05/02/21 documented as of this encounter
--- OUTSIDE RECORDS SUMMARY | 2024-04-25 14:11 | XMS_ITS | Encounter Summary ---
Author Organization [facility] Address [address] [place] [address]. [place] [address] Care Team Providers Care Radio Board Operator Announcer Name Role Phone Asher Garrison MD Primary Care Provider +1 -[phone] Encounter Details Date Type Department Care Team (Latest Contact Info) Description 11/07/2020 Scan HEALTH INFO SRVCS Scanned, Documents Social History Tobacco Use Types Packs/Day Years Used Date Smoking Tobacco: Never Smokeless Tobacco: Never Alcohol Use Standard Drinks/Week Comments Yes 0 (1 standard drink = 0.6 oz pur e alcohol) PHQ-2 Answer Date Recorded PHQ-2 Score 0 04/11/2019 Education Answer Date Recorded What is the highest level of school you have completed or the highest degree you have received? 12th grade 10/23/2018 Comments Unknown Sex and Gender Information Value Date Recorded Sex Assigned at Not on file Legal Sex Female 7:16 PM CDT Gender Identity Not on file Sexual Orientation Not on file Occupation Industry Job Start Date Job End Date Not on file Not on file Not on file Not on file documented as of this encounter Plan of Treatment Not on file documented as of this encounter Visit Diagnoses Not on filedocumented in this encounter Additional Health Concerns Assessment Noted Time PHQ-9 Depression Total Score: 3 10/24/19 19 10:57 AM CDT documented as of this encounter Care Teams Radio Board Operator Announcer Relationship Specialty Start Date End Date Asher Garrison MD PCP - General INTERNAL MEDICINE 10/23/18 documented as of this encounter
--- OUTSIDE RECORDS SUMMARY | 2024-04-25 14:11 | XMS_ITS | Clinical Summary ---
Author Organization [facility] Address [address] [place] [address]. [place] [address] Care Team Providers Care Truck Driver Heavy Name Role Phone Asher Garrison MD Primary Care Provider +1 -[phone] Allergies No known active allergies Medications tamoxifen 20 MG tablet Take 1 tablet by mouth daily. 11/17/2015 Active predniSONE 20 MG tabletIndication s:Acute pain of left knee,Right elbow pain 3 tabs by mouth this a.m.., then 2 tabs po qam x 3 days, then 1 tab po qam x 3 days, then 1/2 tab po qam x 3 days. 14 tablet 10/23/2018 Active Active Problems Problem Noted Date Diagnosed Date Knee pain 11/24/2018 Malignant neoplasm of breast in female, estrogen receptor positive, unspecified laterality, unspecified site of breast ([facility]) 09/04/2017 Overview (10/23/2018): Transitioned From: Abnormal mammogram Right flank pain 09/04/2017 Constipation 06/26/2017 BMI 32.0-32.9,adult 02/27/2016 Depression 11/17/2015 Anxiety 09/19/2015 Benign essential HTN 07/21/2015 Resolved Problems Problem Noted Date Diagnosed Date Resolved Date Upper urinary tract infection 09/04/2017 10/23/2018 Wears glasses 11/14/2016 01/14/2020 Encounter for preventive health examination 07/11/2015 10/23/2018 Family History Medical History Relation Comments Heart Disease Father Hypertension Father Cancer Mother Diabetes Mother Relation Status Comments Father Mother Social History Tobacco Use Types Packs/Day Years [...] file Not on file Not on file Last Filed Vital Signs Vital Sign Reading Time Taken Comments Blood Pressure 130/70 10/23/2018 10:49 AM CDT Pulse 75 10/23/2018 10:49 AM CDT Temperature 36.9 ??C (98.4 ??F) 10/23/2018 10:49 AM C DT Respiratory Rate 18 10/23/2018 10:49 AM CDT Oxygen Saturation 97% 10/23/2018 10:49 AM CDT Inhaled Oxygen Concentration - - Weight 92.1 kg (203 lb) 10/23/2018 10:49 AM CDT Height 170.2 cm (5' 7 ) 10/23/2018 10:49 AM CDT Body Mass Index 31.79 10/23/2018 10:49 AM CDT Plan of Treatment Health Maintenance Due Date Last Done Comments Cervical Cancer Screening Pa p Smear (Age 30 to 64) Every 3 Years 1964 Colorectal Cancer Screening Colonoscopy (10 Years) 1964 Annual Physical 07/19/1967 Hepatitis C 1982 Cervical Cancer Screening Pa p with HPV Testing (Age 30 to 64) Every 5 Years 1994 Cervical Cancer Screening with HPV 1994 Mammogram Screening 2004 Zoster Vaccines (1 of 2) 2014 COVID-19 Vaccine ( - 2023-2 5 season) 2024 Influenza Adult (#1) 2024 DTaP, Tdap and Td Vaccines ( 2 - Td or Tdap) 11/14/2026 11/14/2016 Meningococcal Vaccine Aged Out No gin marquita eligible based on patient's age to complete this topic Pneumococcal Vaccine: Pediat rics (0 to 5 Years) and At-Risk Patients (6 to 64 Years) Aged Out No longer eligi ble based on patient's age to complete this topic RSV Immunizations Under 20 Months Aged Out No longer eligible based on patient's age to complete this topic Insurance Care Teams Truck Driver Heavy Relationship Specialty Start Date End Date Asher Garrison MD PCP - General INTERNAL MEDICINE 10/23/18
--- OUTSIDE RECORDS SUMMARY | 2024-04-25 14:11 | XMS_ITS | Encounter Summary ---
Author Organization [facility] Address [address] [place] [address]. [place] [address] Care Team Providers Care Insole And Outsole Splitter Name Role Phone Asher Garrison MD Primary Care Provider +1 -[phone] Encounter Details Date Type Department Care Team (Latest Contact Info) Description 08/30/2020 Scan HEALTH INFO SRVCS Scanned, Documents Social [...] documented as of this encounter Care Teams Insole And Outsole Splitter Relationship Specialty Start Date End Date Asher Garrison MD PCP - General INTERNAL MEDICINE 10/23/18 documented as of this encounter
--- OUTSIDE RECORDS SUMMARY | 2024-04-25 14:11 | XMS_ITS | Encounter Summary ---
Author Organization [facility] Address [address] [place] [address]. [place] [address] Care Team Providers Care Barrel Polisher Inside Name Role Phone Asher Garrison MD Primary Care Provider [phone] -[phone] Encounter Details Date Type Department Care Team (Latest Contact Info) Description 02/06/2021 Scan HEALTH INFO SRVCS Scanned, Documents Social [...] documented as of this encounter Care Teams Barrel Polisher Inside Relationship Specialty Start Date End Date Asher Garrison MD PCP - General INTERNAL MEDICINE 10/23/18 documented as of this encounter
--- OUTSIDE RECORDS SUMMARY | 2024-04-25 14:11 | XMS_ITS | Encounter Summary ---
Author Organization [facility] Address [address] [place] [address]. [place] [address] Care Team Providers Care Kitchen Designer Name Role Phone Asher Garrison MD Primary Care Provider +1 -[phone] Encounter Details Date Type Department Care Team (Latest Contact Info) Description 01/10/2021 Scan HEALTH INFO SRVCS Scanned, Documents Social [...] documented as of this encounter Care Teams Kitchen Designer Relationship Specialty Start Date End Date Asher Garrison MD PCP - General INTERNAL MEDICINE 10/23/18 documented as of this encounter
--- OUTSIDE RECORDS SUMMARY | 2024-04-25 14:12 | XMS_ITS | Encounter Summary ---
Author Organization [facility] Address [address] [place] [address]. [place], [place] [id number] [place] [address] Care Team Providers Care Chemical Equipment Controller Name Role Phone Asher Garrison MD Primary Care Provider [phone] [phone] Reason for Visit * Reason Comments Jnt Pain/Knee left Upper Extremity Pain right * Physical Medicine (Routine) - Closed Specialty Diagnoses / Procedures Referred By Contac t Referred To Contact PHYSICAL THERAPY / [facility] Physical Therapy Diagnoses Acute pain of left knee Right elbow pain Asher Garrison MD Phone: tel: fax: [facility] [address] [place] [address] Phone: tel: fax: Referral ID Status Reason Start Date Expiration Date V isits Requested Visits Authorized [id number] Closed Physical Therapy 10/23/2018 11/22/2019 24 24 Encounter Details Date Type Department Care Team (Latest Contact Info) Description 11/02/2018 8:54 AM CDT - 11/02/2018 11:59 PM CDT Hospital Encounter [facility] [address] [place] [address] Asher Garrison MD [address] [phone] [place] [address] [place] [address] Jnt Pain/Knee (left); Upper Extremity Pain (right) Discharge Disposition: Home or Self Care (Routine Discharge) Social History Tobacco Use Types Packs/Day Years Used Date Smoking Tobacco: Never Smokeless Tobacco: Never Alcohol Use Standard Drinks/Week Comments Yes 0 (1 standard drink = 0.6 oz pur e alcohol) Education Answer Date Recorded What is the [...] on file documented as of this encounter Discharge Instructions * Patient Instructions* Clare Roque, PT - 11/02/2018 9:50 AM CDT Access Code: [email or web address] URL: [email or web address] Date: 11/02/2018 Prepared by: Clare Roque Exercises Seated Hip Adduction Squeeze with Ball - 10 reps - 1 sets - 5 hold - 1x daily - 7x weekly Seated Hip Abduction with Resistance - 10 reps - 1 sets - 5 hold - 1x daily - 7x weekly Seated Knee Extension with Resistance - 10 reps - 1 sets - 5 hold - 1x daily - 7x weekly Seated Hamstring Curl with Anchored Resistance - 10 reps - 1 sets - 5 hold - 1x daily - 7x weekly Seated Hamstring Stretch with Chair - 2 reps - 1 sets - 30 hold - 1x daily - 7x weekly documented in this encounter Medications at Time of Discharge predniSONE 20 MG tabletIndications :Acute pain of left knee,Right elbow pain 3 tabs by mouth this a.m.., then 2 tabs po qam x 3 days, then 1 tab po qam x 3 days, then 1/2 tab po qam x 3 days. 14 tablet 10/23/2018 tamoxifen 20 MG tablet Take 1 tablet by mouth daily. 11/17/2015 documented as of this encounter Progress Notes * Clare Roque, PT - 11/02/2018 1:55 PM CDT PT Initial Evaluation- Knee Diagnosis: Knee pain, left [M25.562] SUBJECTIVE Therapy Visit Visit Diagnosis: L knee pain and R elbow pain (see other flowsheet) Referring Provider: Dr Garrison Current Therapy Orders: eval and treat Consulting Provider: ortho consult pending yet Next MD Visit: no set follow up Date of Injury/Onset: August 2018 without known injury Job Duties: No restriction. 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 Hand Dominance: Right Subjective Note: L knee more problematic than R elbow. R elbow much better since prednisone (yesterday last dose). L knee no better with meds. L knee locks up with prolonged standing AMB. Has sensation of knifepain through joint line. Pain increases within an hour of standing. Mechanism of Injury: none Past Treatment for current diagnosis: meds Prior Function Prior Function: No knee or elbow pain prior to this. Pain Current Pain Level: 3/10 Lowest Pain Level: 3/10 Highest Pain Level: 5/10 Activities That Increase Pain: Standing, AMB Activities That Decrease Pain: sitting, resting Location of Pain: L knee pain Description of Pain: stabbing to L knee Other: R elbow 0/10 now, but 6/10 at worst prior to meds. Pain worse with EXT motion, especially after being flexed at rest. Review With Patient Medication Reviewed: yes Diagnostics: Xray in chart review Red Flags : Red Flags were screened, all negative per patient report OBJECTIVE Observation Other Observations: antalgic GT with decreased heelstrike L and decreased L knee flex with swing phase. Edema Measurements in cm Joint Line Right: 36.7 Joint Line Left: 36 HIP ROM in Degrees Other (Comments): WNL B hip AROM KNEE ROM in Degrees Knee AROM Flexion Right: 130?? Knee AROM Flexion Left: 130?? Knee AROM Extension Right: 0 Knee AROM Extension Left: 0 ANKLE ROM in Degrees Other (Comments): WNL B ankle AROM Flexibility 90/90 Hamstrings Right: -20?? 90/90 Hamstrings Left: -30?? Kendall Test Right: WNL Kendall Test Left: WNL Obers Test Right: WNL Obers Test Left: WNL Other (Comments): Gastroc 15?? B HIP STRENGTH R Hip Flexion: 4+/5 L Hip Flexion: 4-/5 R Hip Extension: 4+/5 L Hip Extension: 4-/5 R Hip ABDduction: 4-/5 L Hip ABDduction: 4-/5 Hip internal rotation Right: 4+/5 Hip internal rotation Left: 4-/5 Hip external rotation Right: 4+/5 Hip external rotation Left: 4-/5 KNEE STRENGTH R Knee Flexion : 4+/5 L Knee Flexion: 4-/5 R Knee Extension: 4+/5 L Knee Extension: 4-/5 ANKLE STRENGTH Dorsiflexion Right: 4+/5 Dorsiflexion Left: 4+/5 Plantarflexion Right: 4+/5 Plantarflexion Left: 4+/5 Palpation Pain: tenderness L MED JT line Ligament Testing Valgus stress at 0 degrees: negative right, negative left Varus stress at 0 degrees: negative right, negative left Anterior drawer: negative right, negative left Posterior drawer: negative right, negative left Lachmans: negative left Meniscal Tests Apley's compression: negative left Other Tests Other: Positive duck walk L knee. Denies N/T. ASSESSMENT Assessment Note: Pt with L knee pain without known injury. Good ROM but decreased L LE strength. Negative Apley's but positive duck walk and c/o knee locking indicate meniscus injury. She would benefit from skilled PT to decrease pain with standing/AMB and increase strength to improve gait pattern. Therapy Diagnosis: L knee pain Problem List: Decreased Flexibility, Decreased Strength, Gait Abnormality, Pain Prognosis: Good(for goals) PT EVAL COMPLEXITY PT - Personal Factors/Comorbidities Impacting Care: 1-2 personal factors/comorbidities PT - Examination of Body Systems: Moderate (3 or more Elements) PT - Clinical Presentation of Patient: Evolving and changing characteristics PT - Decision Making: Moderate Education Was Education Provided: Yes Topic: home modalities, HEP, Gait pattern Recipient: Patient Method: Verbal, Written, Demonstration([employer] HEP emailed) Response: Asked questions, Verbalized understanding PLAN Plan Treatments/Interventions: Self -Care/Home Management - 10619, Therapeutic Activities - 65031, Gait Training - 39350, Therapeutic Exercise - 32527, Electrical Stimulation Unattended - 87674, Ultrasound - 33201, Manual Therapy - 88422(May change modalities as needed. May trial kinesiotaping prn) Therapy Frequency: (2-3 x/wk) Duration of treatment time: (4-8 wks, up to 24 visits) Plan For Next Session: Initiate Nustep/octane/biodex as able, TG squats, TG PF/DF, TKE fwd/retro, V-board ROM/BAL, step up/down, SLS w/3way kicks, hip hikes. May use UTS PRN or change modalities if needed. End Time in Minutes: 1005(for knee and elbow session today.) Initial Eval Total Time in Minutes: 45 Treatment Provided Today Therapeutic Exercise Minutes: 18 Therapeutic Exercise - 39337: [employer] HEP issued and instructed on: hip ADD w/ball, Hip ABD with band, LAQ, knee flex, and Hamstring stretch. OTB issued also. Modalities - Timed Procedures Minutes: 8 Modalities - Timed Procedures: Pulsed UTS x8', 1 MHz, 1 w/cm2, 50% to L med knee while supine and LE's on bolster Home Exercise Program: HEP as above Total Treatment Time in Minutes: 26 Timed Code Treatment Minutes: 26 EVALUATION + TREATMENT = TOTAL TIME FOR TODAY'S VISIT: 71 Functional deficits and goals: 1. Decreased knowledge of how to manage symptoms independently: GOAL: Patient able to perform individualized home exercise program for independent symptom management within 4 weeks. 2. Impaired gait pattern: GOAL: Patient to demonstrate non-antalgic Left LE gait pattern within 4 weeks, with good heelstrike and good swing phase. 3. Impaired strength: GOAL: Patient to exhibit Left knee and hip strength to be equal to 4/5 or more to allow improved standing/AMB within 4 weeks. 4. Pain affects functional tasks: GOAL: Patient to report reduction of Left knee pain to less than or equal to 3/10, as shown by the visual analog scale, with functional activities of standing or walking for work within 4 weeks. 5. Other GOAL: Patient to have L hamstring flexibility of -20?? to improve lower quarter mobility for ambulation in 4 weeks. THE PROVIDER, I AM IN AGREEMENT WITH THE STATED THERAPY PLAN OF CARE. Provider Signature: Date: In signing this document, provider certifies that prescribed rehabilitation is a medical necessity. Date: 11/02/2018 Patient Name: Milagros Torres Patient : 1965 Patient [facility] [address] [address] [facility] [address] Dept: [phone] Dept Cosigned by Asher Garrison MD at 11/02/2018 4:08 PM CDT * Clare Roque, PT - 11/02/2018 1:53 PM CDT PT Initial Evaluation - Shoulder Diagnosis: Knee pain, left [M25.562] SUBJECTIVE Therapy Visit Visit Diagnosis: R elbow pain Referring Provider: Meli Current Therapy Orders: eval and treat Next MD Visit: no set follow up Job Duties: See knee eval Hand Dominance: Right Subjective Note: See knee eval for combined description of knee and elbow issues. Pain Current Pain Level: 0 Activities That Increase Pain: Elbow ext after being flexed (particularly when sleeping) Other: No pain since started on prednisone and last dose was yesterday Review With Patient Medication Reviewed: yes Diagnostics: xray in system Red Flags : Red Flags were screened, all negative per patient report OBJECTIVE SHOULDER AROM in Degrees Other (Comments): WNL B UE AROM for SH, elbow, FA, and wrist. SHOULDER STRENGTH Flexion Right: 4+/5 Flexion Left: 4+/5 ABDuction Right: 4+/5 ABDuction Left: 4+/5 Internal rotation Right: 4+/5 Internal rotation Left: 4+/5 External rotation Right: 4+/5 External rotation Left: 4-/5 Extension Right: 4+/5 Extension Left: 4+/5 ELBOW STRENGTH Flexion Right: 4+/5 Flexion Left: 4+/5 Extension Right: 4+/5 Extension Left: 4+/5 Additional comments: 4+/5 B FA pron/sup, Wrist flex/ext, and Wrist UD/RD. Good cellulose insulation helper B. No increase pain with MMT. Palpation Pain: Tenderness R MED condyle. Sensation Additional Comments: Denies N/T Other Special Tests Additional Comments: Negative Golfer's elbow and Tennis elbow tests. Good ligamentous testing R elbow. ASSESSMENT Assessment Note: No pain reproduction for R elbow this session. Good ROM and strength R side. No apparent R elbow issues once prednisone started. Therapy Diagnosis: R elbow pain Problem List: (No current problems with R elbow.) Prognosis: Poor(due to symptoms currently resolved) Education Was Education Provided: Yes Topic: (Will re-eval if symptoms recur in the next 1 month) Recipient: Patient Method: Verbal Response: Verbalized understanding PLAN Plan Treatments/Interventions: (Eval only at this time. Will re-eval if symptoms recur.) Therapy Frequency: (eval only for R elbow pain) Plan For Next Session: No further intervention for R elbow planned. Will continue PT for L knee pain. See L knee eval for that POC. End Time in Minutes: 1005 Treatment Provided Today Other (Comments): Instruction in PT POC re: R elbow 1. Other GOAL: Will reassess R elbow pain if recurs in the next 1 month. No further treatment planned for this area at this time. THE PROVIDER, I AM IN AGREEMENT WITH THE STATED THERAPY PLAN OF CARE. Provider Signature: Date: In signing this document, provider certifies that prescribed rehabilitation is a medical necessity. Date: 11/02/2018 Patient Name: Milagros Torres Patient : 1965 Patient [facility] [address] [facility] [address] Dept: [phone] Dept Cosigned by Asher Garrison MD at 11/02/2018 4:08 PM CDT documented in this encounter Plan of Treatment Not on file documented as of this encounter Visit Diagnoses Diagnosis Knee pain, left- Primary Pain in joint, lower leg Elbow pain, right Pain in joint, upper arm documented in this encounter Additional Health Concerns Assessment Noted Time PHQ-9 Depression Total Score: 3 10/24/19 19 10:57 AM CDT documented as of this encounter Care Teams Chemical Equipment Controller Relationship Specialty Start Date End Date Asher Garrison MD PCP - General INTERNAL MEDICINE 10/23/18 documented as of this encounter
--- OUTSIDE RECORDS SUMMARY | 2024-04-25 14:12 | XMS_ITS | Encounter Summary ---
Author Organization [facility] Address [address] [place] [address]. [place] [address] Care Team Providers Care Roller Painter Name Role Phone Asher Garrison MD Primary Care Provider [phone] [phone] Encounter Details Date Type Department Care Team (Latest Contact Info) Description 07/27/2019 Scan HEALTH INFO SRVCS Scanned, Documents Social [...] documented as of this encounter Care Teams Roller Painter Relationship Specialty Start Date End Date Asher Garrison MD PCP - General INTERNAL MEDICINE 10/23/18 documented as of this encounter
--- OUTSIDE RECORDS SUMMARY | 2024-04-25 14:12 | XMS_ITS | Encounter Summary ---
Author Organization [facility] Address [address] [place] [address]. [place] [address] Care Team Providers Care Technical Staff Assistant Name Role Phone Asher Garrison MD Primary Care Provider [phone] [phone] Encounter Details Date Type Department Care Team (Latest Contact Info) Description 03/10/2019 Scan HEALTH INFO SRVCS Scanned, Documents Social [...] documented as of this encounter Care Teams Technical Staff Assistant Relationship Specialty Start Date End Date Asher Garrison MD PCP - General INTERNAL MEDICINE 10/23/18 documented as of this encounter
--- OUTSIDE RECORDS SUMMARY | 2024-04-25 14:12 | XMS_ITS | Encounter Summary ---
Author Organization [facility] Address [address] [place] [address]. [place], [place] [id number] [place] [address] Care Team Providers Care Oil Refinery Process Technician Name Role Phone Asher Garrison MD Primary Care Provider [phone] [phone] Reason for Visit * Reason Comments Jnt Pain/Knee * Physical Medicine (Routine) - Closed Specialty Diagnoses / Procedures Referred By Contac t Referred To Contact PHYSICAL THERAPY / [facility] Physical Therapy Diagnoses Acute pain of left knee Right elbow pain Asher Garrison MD Phone: tel: fax: [facility] [address] [place] [address] Phone: tel: fax: Referral ID Status Reason Start Date Expiration Date V isits Requested Visits Authorized [id number] Closed Physical Therapy 10/23/2018 11/22/2019 24 24 Encounter Details Date Type Department Care Team (Latest Contact Info) Description 11/30/2018 8:58 AM CDT - 11/30/2018 11:59 PM T Hospital Encounter [facility] [address] [place], [place] [id number] Asher Garrison MD [address] [phone] [place] [address] [place], [place] [id number] Jnt Pain/Knee Discharge Disposition: Home or Self Care (Routine [...] Progress Notes * Clare Roque, PT - 12/01/2018 12:09 PM CDTEncounter addended by: Clare Roque PT on: 12/01/2018 12:09 PM Actions taken: Charge Capture section accepted * Clare Roque PT - 11/30/2018 9:52 AM CDT Physical Therapy Visit Note: Patient Name: Milagros Torres Diagnosis: Knee pain [M25.569] SUBJECTIVE Therapy Visit Treatment Day: 6 Total Approved Visits: 10/26 Authorization Expiration Date: 11/22/19 Therapy Plan of Care: Ther Ex, Modalities, Ktape, HEP Diagnosis: L knee Referring Provider: Dr. Garrison Next MD Visit: no set f/u with PCP. Waiting on ortho appt to be scheduled Date of Injury: August 2018 Subjective Note: Pain continues in L knee. Gets times of locking yet also. Standing/walking most painful. Waiting on ortho referral to [facility]. Knee continues to pop with activity also. WB'g most painful vs seated/supine activities. Response to prior treatment: Tape helpful: less swelling and giving out with tape on. Compliance to Home Program: daily Reported Falls since last visit: no Medications changes since last visit : no Pain Current Location of Pain: L knee Current Pain Level: 4/10 now Other (comments): Pain 5-6/10 at worst OBJECTIVE Treatment provided today: Therapeutic Exercise - 97788 Number of minutes: 37 Cardio Equipment: Nustep (S7, A8) L2 x7' Exercise: Slant board L4 x1' Exercise: HS stretch, supine 30 sec x 2 L Exercise: V board ROM + BAL x1' ea, ea way Exercise: TKE Fwd/Retro blue Tband x 20 ea L Exercise: 3 way kicks x 8 B with blue foam Exercise: 4 step ups x 15 B Exercise: TG squats L 18 x15 B Exercise: TG PF/DF - Level 18 x 15 Other (Comments): KT tape with Lift strip inferior & strip superior/medial to inferiorly. Lift strip done last Modalities Number of minutes (Timed Procedures): 8 Ultrasound - 84594: Frequency 1MHz, Pulsed 50%, 8 minutes, 1.0 W/cm2 Ultrasound Body Part and Patient Position: L medial knee in supine w/ bolster Home Exercise Program Current Home Exercise Program: Continue current HEP Education Was Education Provided: Yes Topic: Ex technique, use of CP at home to reduce night time pain, f/u with PCP office for ortho appt Recipient: Patient Method: Verbal Response: Verbalized understanding ASSESSMENT Assessment Note: Pain continues with standing/WB'g. S/S meniscus injury with popping and locking issues. Pain temporarily improves with PT intervention. Tape helpful between sessions. Instructed pt also on how to get her own tape for replacement as needed. PLAN Plan Next Visit Plan: Progress EX as able. Use modalities and MTT as needed. Total Time Total Time in Minutes: 45 Timed Code Treatment Minutes : 45 documented in this encounter Plan of Treatment Not on file documented as of this encounter Visit Diagnoses Diagnosis Knee pain- Primary Pain in joint, lower leg documented in this encounter Additional Health Concerns Assessment Noted Time PHQ-9 Depression Total Score: 3 10/24/19 19 10:57 AM CDT documented as of this encounter Care Teams Oil Refinery Process Technician Relationship Specialty Start Date End Date Asher Garrison MD PCP - General INTERNAL MEDICINE 10/23/18 documented as of this encounter
--- OUTSIDE RECORDS SUMMARY | 2024-04-25 14:12 | XMS_ITS | Encounter Summary ---
Author Organization [facility] Address [address] [place] [address]. [place] [phone] [place] [address] Care Team Providers Care Primer Assembler Name Role Phone Asher Garrison MD Primary Care Provider [phone] [phone] Reason for Visit * Reason Comments Jnt Pain/Knee * Physical Medicine (Routine) - Closed Specialty Diagnoses / Procedures Referred By Contac t Referred To Contact PHYSICAL THERAPY / [facility] Physical Therapy Diagnoses Acute pain of left knee Right elbow pain Asher Garrison MD Phone: tel: fax: [facility] [address] [place] [address] Phone: tel: fax: Referral ID Status Reason Start Date Expiration Date V isits Requested Visits Authorized [id number] Closed Physical Therapy 10/23/2018 11/22/2019 24 24 Encounter Details Date Type Department Care Team (Latest Contact Info) Description 12/08/2018 8:26 AM CDT - 12/08/2018 11:59 PM T Hospital Encounter [facility] [address] [place] [address] Asher Garrison MD [address] [phone] Tati Johnson PTA Jnt Pain/Knee Discharge Disposition: Home or Self [...] as of this encounter Progress Notes * Tati Johnson, CHEMICAL STRENGTH TESTER - 12/08/2018 12:06 PM CDT Physical Therapy Visit Note: Patient Name: Milagros Torres Diagnosis: Knee pain [M25.569] SUBJECTIVE Therapy Visit Treatment Day: 7 Total Approved Visits: 11/25 Authorization Expiration Date: 11/22/19 Therapy Plan of Care: Ther Ex, Modalities, Ktape, HEP Diagnosis: L knee Referring Provider: Dr. Garrison Next MD Visit: no set f/u with PCP. Waiting on ortho appt to be scheduled Date of Injury: August 2018 Subjective Note: Pt reports she saw the ortho yesterday and she stated it is arthritis and there are bone spurs and nearly bone on bone. Pt explains she received a shot in the knee and script for anti-inflammatories. Pt explains that the orthro expects the injection to last 3 months and if not, then consider knee replacement. Pt explains she slept better last night because she wasn't hurting. Response to prior treatment: slight increase in pain which is normal. Compliance to Home Program: yes Reported Falls since last visit: no Medications changes since last visit : yes - added anti-inflammatory med 1x/day Pain Current Location of Pain: denies Current Pain Level: denies OBJECTIVE Treatment provided today: Therapeutic Exercise - 53429 Number of minutes: 41 Cardio Equipment: Nustep (S7, A8) L2 x7' Exercise: Slant board L4 x1' Exercise: HS stretch, supine 30 sec x 2 L Exercise: V board ROM + BAL x1' ea, ea way Exercise: TKE Fwd/Retro blue Tband x 20 ea L Exercise: 3 way kicks x 10 B with blue foam Exercise: 4 step ups x 15 B Exercise: TG squats L 18 x15 B Exercise: TG PF/DF - Level 18 x 15 Exercise: Sidestepping at rail 24' x 2 ea Exercise: Retro gait at rail 24' x 2 Other (Comments): KT tape with Lift strip inferior & strip superior/medial to inferiorly. Lift strip done last Modalities Ultrasound Body Part and Patient Position: held secondary to knee injection yesterday - resume Home Exercise Program Current Home Exercise Program: Continue HEP Education Was Education Provided: Yes Topic: ther ex, held UTS for today Recipient: Patient Method: Verbal Response: Verbalized understanding ASSESSMENT Assessment Note: Pt able to complete ex and amb t/o clinic today without c/o pain and attributes it to injection yesterday. Held UTS due to injection yesterday but will resume at next visit. PLAN Plan Next Visit Plan: Continue PT. Total Time Total Time in Minutes: 41 Timed Code Treatment Minutes : 41 documented in this encounter Plan of Treatment Not on file documented as of this encounter Visit Diagnoses Diagnosis Knee pain- Primary Pain in joint, lower leg documented in this encounter Additional Health Concerns Assessment Noted Time PHQ-9 Depression Total Score: 3 10/24/19 19 10:57 AM CDT documented as of this encounter Care Teams Primer Assembler Relationship Specialty Start Date End Date Asher Garrison MD PCP - General INTERNAL MEDICINE 10/23/18 documented as of this encounter
--- OUTSIDE RECORDS SUMMARY | 2024-04-25 14:12 | XMS_ITS | Encounter Summary ---
Author Organization [facility] Address [address] [place] [address]. [place], [place] [address] [place] [address] Care Team Providers Care Stacker Name Role Phone Asher Garrison MD Primary Care Provider [phone] [phone] Reason for Visit * Reason Comments Knee Pain Left * Physical Medicine (Routine) - Closed Specialty Diagnoses / Procedures Referred By Contac t Referred To Contact PHYSICAL THERAPY / [facility] Physical Therapy Diagnoses Acute pain of left knee Right elbow pain Asher Garrison MD Phone: tel: fax: [facility] Outpatient Rehab [address] [place] [address] Phone: tel: fax: Referral ID Status Reason Start Date Expiration Date V isits Requested Visits Authorized [id number] Closed Physical Therapy 10/23/2018 11/22/2019 24 24 Encounter Details Date Type Department Care Team (Late st Contact Info) Description 11/04/2018 8:30 AM CDT - 11/04/2018 11:59 PM T Hospital Encounter [facility] Outpatient Rehab [address] [place] [address] Asher Garrison MD [address] [phone] Annelise Fabian, AMMUNITION ASSEMBLY I LABORER Knee Pain (Left) Discharge Disposition: Home or Self Care (Routine [...] as of this encounter Progress Notes * Annelise Fabian, AMMUNITION ASSEMBLY I LABORER - 11/04/2018 1:17 PM CDT Physical Therapy Visit Note: Patient Name: Milagros Torres Diagnosis: Knee pain, left [M25.562] SUBJECTIVE Therapy Visit Treatment Day: 2 Diagnosis: L knee Referring Provider: Dr. Meli Cedeno MD Visit: no set f/u Date of Injury: August 2018 Subjective Note: Pt states her knee is hurting this morning. States she's not sure if she turned wrong or something last night, but it was hurting so bad she could hardly stand on it. Response to prior treatment: Pt reports a little bit of pain following the initial evaluation. Compliance to Home Program: Yes, 1x/day as directed by PT. Reported Falls since last visit: No Medications changes since last visit : No Pain Current Location of Pain: L Knee Current Pain Level: 6/10 OBJECTIVE Treatment provided today: Therapeutic Exercise - 47253 Number of minutes: 35 Cardio Equipment: Nustep x 6' Exercise: Slant board, L4, x 1' Exercise: Long sitting HS stretch, 30 sec x 3 Exercise: V board, ROM/balance, both directions x 1' each Other (Comments): KTape to L medial knee Modalities Number of minutes (Timed Procedures): 8 Ultrasound - 51939: Pulsed 50%(1 MHz, 1 w/cm2, x 8') Ultrasound Body Part and Patient Position: L medial knee in supine w/ bolster Number of minutes (Non-Timed Procedures): 10 Cold Pack: CP to L knee post ther ex x 10' Home Exercise Program Current Home Exercise Program: Continue current HEP Education Was Education Provided: Yes Topic: ther ex, taping Recipient: Patient Method: Verbal Response: Verbalized understanding, Demonstrates adequately Barriers: None ASSESSMENT Assessment Note: Pt instructed to perform V board in pain free range after complaints when going side to side.Pt seems to have difficulty d/t increased tightness with L HS stretches. Response to Treatment : Pt tolerated treatment well. She had minimal complaints with therapeutic exercise and no adverse effects from modalities. PLAN Plan Next Visit Plan: Continue PT per POC and progress as able. Reassess pt resposne to treatment and tape at the next visit. Total Time Total Time in Minutes: 53 Timed Code Treatment Minutes : 43 documented in this encounter Plan of Treatment Not on file documented as of this encounter Visit Diagnoses Diagnosis Knee pain, left- Primary Pain in joint, lower leg documented in this encounter Additional Health Concerns Assessment Noted Time PHQ-9 Depression Total Score: 3 10/24/19 19 10:57 AM CDT documented as of this encounter Care Teams Stacker Relationship Specialty Start Date End Date Asher Garrison MD PCP - General INTERNAL MEDICINE 10/23/18 documented as of this encounter
--- OUTSIDE RECORDS SUMMARY | 2024-04-25 14:12 | XMS_ITS | Encounter Summary ---
Author Organization [facility] Address [address] [place] [address]. [place] [id number] [place] [address] Care Team Providers Care Multicut Line Operator Name Role Phone Asher Garrison MD Primary Care Provider [phone] [phone] Reason for Visit * Reason Comments Jnt Pain/Knee * Physical Medicine (Routine) - Closed Specialty Diagnoses / Procedures Referred By Contac t Referred To Contact PHYSICAL THERAPY / [facility] Physical Therapy Diagnoses Acute pain of left knee Right elbow pain Asher Garrison MD Phone: tel: fax: [facility] [address] [place] [address] Phone: tel: fax: Referral ID Status Reason Start Date Expiration Date V isits Requested Visits Authorized [id number] Closed Physical Therapy 10/23/2018 11/22/2019 24 24 Encounter Details Date Type Department Care Team (Latest Contact Info) Description 12/10/2018 8:24 AM CDT - 12/10/2018 11:59 PM T Hospital Encounter [facility] [address] [place] [address] Asher Garrison MD [address] [phone] Tati Johnson PTA Jnt Pain/Knee Discharge Disposition: [...] Progress Notes * Clare Roque, PT - 12/10/2018 10:26 AM CDT Physical Therapy Visit Note: Patient Name: Milagros Torres Diagnosis: Knee pain [M25.569] SUBJECTIVE Therapy Visit Treatment Day: 8 Total Approved Visits: 12/26 Authorization Expiration Date: 11/22/19 Therapy Plan of Care: Ther Ex, Modalities, Ktape, HEP Diagnosis: L knee Referring Provider: Dr. Garrison Next MD Visit: no set f/u with PCP. Waiting on ortho appt to be scheduled Date of Injury: August 2018 Subjective Note: Pt denies c/o pain this morning but explains she has felt it several times in the last few days; enough to remind me that it is still there. Response to prior treatment: good Compliance to Home Program: yes Reported Falls since last visit: no Medications changes since last visit : no Pain Current Location of Pain: denies currently Current Pain Level: denies OBJECTIVE Treatment provided today: Therapeutic Exercise - 32308 Number of minutes: 44 Cardio Equipment: Nustep (S7, A8) L2 x6' Exercise: Slant board L4 x1' Exercise: HS stretch, supine 30 sec x 2 L Exercise: V board ROM + BAL x1' ea, ea way Exercise: TKE Fwd/Retro blue Tband x 20 ea L Exercise: 3 way kicks x 12 B with blue foam Exercise: 5 step ups x 20 B Exercise: TG squats L20 x15 B Exercise: TG PF/DF - L20 x 15 Exercise: Sidestepping with OTB at rail 24' x 1 ea Exercise: Retro gait at rail 24' x 2 Other (Comments): KT tape with Lift strip inferior & strip superior/medial to inferiorly. Lift strip done last Modalities Ultrasound Body Part and Patient Position: held this session - no c/o pain Home Exercise Program Current Home Exercise Program: Continue HEP Education Was Education Provided: Yes Recipient: Patient Method: Verbal Response: Verbalized understanding ASSESSMENT Assessment Note: Pt has no c/o increased pain this session. Pt was challenged with sidestepping with OTB. Response to Treatment : Good Pt rechecked by Clare Roque, PT, during session today. L hip strength 4+/5 for flex, ABD, and ROT. L knee strength 4+/5 flex/ext. L hamstring -20?? 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 Her pain is 0-1/10 at worst with standing/walking since getting injection and now taking meloxicam daily. Spoke with pt about PT POC and options. Pt showing good progress with strength, pain and flexibility. Pt wants to continue PT at least through next week to ensure consistency in pain relief and function. Will reassess next week for further d/c planning based off overall response to PT and injection. PLAN Plan Next Visit Plan: Continue PT for 2 more visits. Total Time Total Time in Minutes: 44 Timed Code Treatment Minutes : 44 documented in this encounter Plan of Treatment Not on file documented as of this encounter Visit Diagnoses Diagnosis Knee pain- Primary Pain in joint, lower leg documented in this encounter Additional Health Concerns Assessment Noted Time PHQ-9 Depression Total Score: 3 10/24/19 19 10:57 AM CDT documented as of this encounter Care Teams Multicut Line Operator Relationship Specialty Start Date End Date Asher Garrison MD PCP - General INTERNAL MEDICINE 10/23/18 documented as of this encounter
--- OUTSIDE RECORDS SUMMARY | 2024-04-25 14:12 | XMS_ITS | Encounter Summary ---
Author Organization [facility] Address [address] [place] [address]. [place], [place] [address] [place] [address] Care Team Providers Care Hospital Liaison Name Role Phone Asher Garrison MD Primary Care Provider [phone] [phone] Reason for Visit * Reason Comments Jnt Pain/Knee left * Physical Medicine (Routine) - Closed Specialty Diagnoses / Procedures Referred By Contac t Referred To Contact PHYSICAL THERAPY / [facility] Physical Therapy Diagnoses Acute pain of left knee Right elbow pain Asher Garrison MD Phone: tel: fax: [facility] Outpatient Rehab [address] [place] [address] Phone: tel: fax: Referral ID Status Reason Start Date Expiration Date V isits Requested Visits Authorized [id number] Closed Physical Therapy 10/23/2018 11/22/2019 24 24 Encounter Details Date Type Department Care Team (Latest Contact Info) Description 11/27/2018 8:44 AM CDT - 11/27/2018 11:59 PM T [address] En[address] [facility] Outpatient Rehab [address] [place] [address] Asher Garrison MD [address] [phone] Margot Bell PTA Jnt Pain/Knee (left) Discharge Disposition: Home or Self Care (Routine [...] as of this encounter Progress Notes * Margot Bell, NAILING MACHINE FEEDER - 11/27/2018 9:43 AM CDT Physical Therapy Visit Note: Patient Name: Milagros Torres Diagnosis: Knee pain [M25.569] SUBJECTIVE Therapy Visit Treatment Day: 5 Total Approved Visits: 09/25 Authorization Expiration Date: 11/22/19 Therapy Plan of Care: Ther Ex, Modalities, Ktape, HEP Diagnosis: L knee Referring Provider: Dr. Garrison Next MD Visit: no set f/u Date of Injury: August 2018 Subjective Note: It's been a rough couple of days. I had a hard time getting comfortable to sleep. Response to prior treatment: [place] good right after PT, but later that day increased pain. Compliance to Home Program: compliant Reported Falls since last visit: no Medications changes since last visit : no Pain Current Location of Pain: L knee Current Pain Level: 5 Other (comments): Irritating. No meds taken today. OBJECTIVE Treatment provided today: Therapeutic Exercise - 76200 Number of minutes: 35 Cardio Equipment: Nustep (S7, A8) L2 x7' Exercise: Slant board L4 x1' Exercise: HS stretch, sitting in chair 30 sec x 2 Exercise: V board ROM + BAL x1' ea, ea way Exercise: TKE Fwd/Retro blue Tband x 15 ea L Exercise: 3 way kicks x 8 B Exercise: 4 step ups x 12 B Exercise: TG squats - future Exercise: TG PF/DF - Level 18 x 15 Other (Comments): KT tape with strip inferior & strip superior/medial to inferiorly Modalities Number of minutes (Timed Procedures): 8 Ultrasound - 63119: Frequency 1MHz, Pulsed 50%, 8 minutes, 1.0 W/cm2 Ultrasound Body Part and Patient Position: L medial knee in supine w/ bolster Cold Pack: CP to L knee hooklying x 10' Home Exercise Program Current Home Exercise Program: Continue current HEP Education Was Education Provided: Yes Topic: cues for proper technique for ther ex Recipient: Patient Method: Verbal Response: Verbalized understanding ASSESSMENT Assessment Note: Mild increase in pain with ex. Response to Treatment : Good PLAN Plan Changes: Assess KT to knee. Next Visit Plan: Continue PT. Total Time Total Time in Minutes: 43 Timed Code Treatment Minutes : 43 documented in this encounter Plan of Treatment Not on file documented as of this encounter Visit Diagnoses Diagnosis Knee pain- Primary Pain in joint, lower leg documented in this encounter Additional Health Concerns Assessment Noted Time PHQ-9 Depression Total Score: 3 10/24/19 19 10:57 AM CDT documented as of this encounter Care Teams Hospital Liaison Relationship Specialty Start Date End Date Asher Garrison MD PCP - General INTERNAL MEDICINE 10/23/18 documented as of this encounter
--- OUTSIDE RECORDS SUMMARY | 2024-04-25 14:12 | XMS_ITS | Encounter Summary ---
Author Organization [facility] Address [address] [place] [address]. [place] [address] Care Team Providers Care Cleaner Operator Name Role Phone Asher Garrison MD Primary Care Provider [phone] [phone] Encounter Details Date Type Department Care Team (Latest Contact Info) Description 02/03/2020 Scan HEALTH INFO SRVCS Scanned, Documents Social [...] documented as of this encounter Care Teams Cleaner Operator Relationship Specialty Start Date End Date Asher Garrison MD PCP - General INTERNAL MEDICINE 10/23/18 documented as of this encounter
--- OUTSIDE RECORDS SUMMARY | 2024-04-25 14:12 | XMS_ITS | Encounter Summary ---
Author Organization [facility] Address [address] [place] [address]. [place] [address] Care Team Providers Care Community Health Navigator Name Role Phone Asher Garrison MD Primary Care Provider [phone] [phone] Encounter Details Date Type Department Care Team (Latest Contact Info) Description 11/02/2019 Scan [facility] HEALTH INFO SRVCS Scanned, Documents Social History [...] documented as of this encounter Care Teams Community Health Navigator Relationship Specialty Start Date End Date Asher Garrison MD PCP - General INTERNAL MEDICINE 10/23/18 documented as of this encounter
--- OUTSIDE RECORDS SUMMARY | 2024-04-25 14:12 | XMS_ITS | Encounter Summary ---
Author Organization [facility] Address [address] [place] [address]. [place], [place] [address] [place] [address] Care Team Providers Care Rehabilitation Liaison Name Role Phone Asher Garrison MD Primary Care Provider [phone] [phone] Reason for Visit * Reason Comments Joint Pain * Physical Medicine (Routine) - Closed Specialty Diagnoses / Procedures Referred By Contac t Referred To Contact PHYSICAL THERAPY / [facility] Physical Therapy Diagnoses Acute pain of left knee Right elbow pain Asher Garrison MD Phone: tel: fax: [facility] [address] [place] [address] Phone: tel: fax: Referral ID Status Reason Start Date Expiration Date V isits Requested Visits Authorized [id number] Closed Physical Therapy 10/23/2018 11/22/2019 24 24 Encounter Details Date Type Department Care Team (Latest Contact Info) Description 11/10/2018 7:56 AM CDT - 11/10/2018 11:59 PM T Hospital Encounter [facility] [address] [place] [address] Asher Garrison MD [address] [phone] Juliana Kulkarni, BUTTON SEWER HAND Joint Pain Discharge Disposition: Home or Self Care (Routine [...] as of this encounter Progress Notes * Julaina Kulkarni, BUTTON SEWER HAND - 11/10/2018 8:48 AM CDT Physical Therapy Visit Note: Patient Name: Milagros Torres Diagnosis: Knee pain, left [M25.562] SUBJECTIVE Therapy Visit Treatment Day: 3 Total Approved Visits: 24 Authorization Expiration Date: 11/22/19 Therapy Plan of Care: Ther Ex, Modalities, Ktape, HEP Diagnosis: L knee Referring Provider: Dr. Garrison Next Visit: no set f/u Date of Injury: August 2018 Subjective Note: Reports that her L knee pain continues but improved Response to prior treatment: Increased soreness noted. Could barely walk later in the day. Compliance to Home Program: Good Reported Falls since last visit: No Medications changes since last visit : No Pain Current Location of Pain: L Knee Current Pain Level: 2/10 OBJECTIVE Treatment provided today: Therapeutic Exercise - 62925 Number of minutes: 30 Cardio Equipment: Nustep x 6' Exercise: Slant board, L4, x 1' Exercise: Long sitting HS stretch, 30 sec x 3 Exercise: V board, ROM/balance, both directions x 1' each Exercise: TKE Fwd/Retro blue Tband x10 each Other (Comments): KTape to L medial knee Modalities Number of minutes (Timed Procedures): 10 Ultrasound - 52388: Pulsed 50%(1 MHz, 1 w/cm2, x 8') [...] Demonstrates adequately Barriers: None ASSESSMENT Assessment Note: Patient with some difficulty with SLS/3way kick on L LE. Response to Treatment : Pt tolerated treatment well. She had minimal complaints with therapeutic exercise and no adverse effects from modalities. Goal Progression: Working toward goals Comments/Other: Patient leaving for vacation on 11/12/18 and will resume PT once returned. PLAN Plan Next Visit Plan: Continue PT per POC and progress as able. Reassess pt resposne to treatment and tape at the next visit. Total Time Total Time in Minutes: 50 Timed Code Treatment Minutes : 40 documented in this encounter Plan of Treatment Not on file documented as of this encounter Visit Diagnoses Diagnosis Knee pain, left- Primary Pain in joint, lower leg documented in this encounter Additional Health Concerns Assessment Noted Time PHQ-9 Depression Total Score: 3 10/24/19 19 10:57 AM CDT documented as of this encounter Care Teams Rehabilitation Liaison Relationship Specialty Start Date End Date Asher Garrison MD PCP - General INTERNAL MEDICINE 10/23/18 documented as of this encounter
--- OUTSIDE RECORDS SUMMARY | 2024-04-25 14:12 | XMS_ITS | Encounter Summary ---
Author Organization [facility] Address [address] [place] [address]. [place], [place] [address] [place] [address] Care Team Providers Care Relocation Director Name Role Phone Asher Garrison MD Primary Care Provider [phone] [phone] Reason for Visit * Reason Comments Jnt Pain/Knee L knee * Physical Medicine (Routine) - Closed Specialty Diagnoses / Procedures Referred By Contac t Referred To Contact PHYSICAL THERAPY / [facility] Physical Therapy Diagnoses Acute pain of left knee Right elbow pain Asher Garrison MD Phone: tel: fax: [facility] Outpatient Rehab [address] [place] [address] Phone: tel: fax: Referral ID Status Reason Start Date Expiration Date V isits Requested Visits Authorized [id number] Closed Physical Therapy 10/23/2018 11/22/2019 24 24 Encounter Details Date Type Department Care Team (Latest Contact Info) Description 12/16/2018 7:30 AM CDT - 12/16/2018 11:59 PM T Hospital Encounter [facility] Outpatient Rehab [address] [place], [place] [id number] Asher Garrison MD [address] [phone] Tati Johnson, MARCELINO Jnt Pain/Knee (L knee) Discharge Disposition: Home or Self Care (Routine [...] this encounter Progress Notes * Tati Johnson, COUNSELOR/ART THERAPIST - 12/16/2018 8:23 AM CDT Physical Therapy Visit Note: Patient Name: Milagros Torres Diagnosis: Knee pain [M25.569] SUBJECTIVE Therapy Visit Treatment Day: 9 Total Approved Visits: 12/26 Authorization Expiration Date: 11/22/19 Therapy Plan of Care: Ther Ex, Modalities, Ktape, HEP Diagnosis: L knee Referring Provider: Dr. Garrison Next MD Visit: no set f/u with PCP. Waiting on ortho appt to be scheduled Date of Injury: August 2018 Subjective Note: Pt states her knee has been feeling good and she only has an occasional twinge of pain. Response to prior treatment: good Compliance to Home Program: yes Reported Falls since last visit: no Medications changes since last visit : no Pain Current Location of Pain: denies currently Current Pain Level: denies OBJECTIVE Treatment provided today: Therapeutic Exercise - 24447 Number of minutes: 43 Cardio Equipment: Nustep (S7, A8) L2 x6' Exercise: Slant board L4 x1' Exercise: HS stretch, supine 30 sec x 2 L Exercise: V board ROM + BAL x1' ea, ea way Exercise: TKE Fwd/Retro purple Tband x 20 ea L Exercise: 3 way kicks x 12 B with blue foam Exercise: 5 step ups x 20 B Exercise: TG squats L20 x20 B Exercise: TG PF/DF - L20 x 20 Exercise: Sidestepping with OTB at rail 24' x 1 ea Exercise: Retro gait at rail 24' x 2 Exercise: TRX squats (just tap chair) x 15 Other (Comments): KT tape with Lift strip inferior & strip superior/medial to inferiorly. Lift strip done last Modalities Ultrasound Body Part and Patient Position: held this session - no c/o pain Home Exercise Program Current Home Exercise Program: Continue HEP Education Was Education Provided: Yes Topic: ther ex, k-tape Recipient: Patient Method: Verbal Response: Verbalized understanding ASSESSMENT Assessment Note: Pt able to complete ex without c/o pain. Response to Treatment : Good PLAN Plan Next Visit Plan: Continue PT for 1 more visits. Total Time Total Time in Minutes: 43 [...] documented as of this encounter Care Teams Relocation Director Relationship Specialty Start Date End Date Asher Garrison MD PCP - General INTERNAL MEDICINE 10/23/18 documented as of this encounter
--- OUTSIDE RECORDS SUMMARY | 2024-04-25 14:12 | XMS_ITS | Encounter Summary ---
Author Organization [facility] Address [address] [place] [address]. [place], [place] [address] [place] [address] Care Team Providers Care Feather Duster Winder Name Role Phone Asher Garrison MD Primary Care Provider [phone] [phone] Reason for Visit * Reason Onset Date Comments Imm/Inj 01/18/2019 Encounter Details Date Type Department Care Team (Late st Contact Info) Description 01/18/2019 Telephone [facility] Family [facility] Internal Medicine [facility] [address] [place] [address] Asher Garrison MD [address] [phone] Imm/Inj Social History Tobacco Use Types Packs/Day Years [...] as of this encounter Progress Notes * Amber Garcia - 01/18/2019 5:13 PM CDT Milagros returned call. Gave her information as stated regarding Health department and pharmacy for pricing. * Amber Deleon, RN - 01/18/2019 5:04 PM CDT Called and left VM for patient to return call. Need to inform of below. Patient may want to go to health department in [place], phone [phone]. Patient can also go to local or [facility] for a cheaper drake. * Asher Garrison MD - 01/18/2019 5:02 PM CDT Probably not covered on [place]. May want to check area pharmacy or Health dept rather than pay out of pocket. * Amy Tam LPN - 01/18/2019 10:41 AM CDT Pt called needs a DTAT inj before grandchild is born needs order has nurses appt on 01/20 8:40 C/B [phone] documented in this encounter Plan of Treatment Not on file documented as of this encounter Visit Diagnoses Not on filedocumented in this encounter Additional Health Concerns Assessment Noted Time PHQ-9 Depression Total Score: 3 10/24/19 19 10:57 AM CDT documented as of this encounter Care Teams Feather Duster Winder Relationship Specialty Start Date End Date Asher Garrison MD PCP - General INTERNAL MEDICINE 10/23/18 documented as of this encounter
--- OUTSIDE RECORDS SUMMARY | 2024-04-25 14:12 | XMS_ITS | Encounter Summary ---
Author Organization [facility] Address [address] [place] [address]. [place] [address] Care Team Providers Care Batt Machine Operator Name Role Phone Asher Garrison MD Primary Care Provider [phone] [phone] Encounter Details Date Type Department Care Team (Latest Contact Info) Description 12/07/2018 Scan HEALTH INFO SRVCS Scanned, Documents Social [...] documented as of this encounter Care Teams Batt Machine Operator Relationship Specialty Start Date End Date Asher Garrison MD PCP - General INTERNAL MEDICINE 10/23/18 documented as of this encounter
--- OUTSIDE RECORDS SUMMARY | 2024-04-25 14:12 | XMS_ITS | Encounter Summary ---
Author Organization [facility] Address [address] [place] [address]. [place], [place] [address] [place] [address] Care Team Providers Care Quantitative Developer Name Role Phone Asher Garrison MD Primary Care Provider [phone] Reason for Visit * Reason Comments Jnt Pain/Knee L knee pain * Physical Medicine (Routine) - Closed Specialty Diagnoses / Procedures Referred By Contac t Referred To Contact PHYSICAL THERAPY / [facility] Physical Therapy Diagnoses Acute pain of left knee Right elbow pain Asher Garrison MD Phone: tel: fax: [facility] [address] [place] [address] Phone: tel: fax: Referral ID Status Reason Start Date Expiration Date V isits Requested Visits Authorized [id number] Closed Physical Therapy 10/23/2018 11/22/2019 24 24 Encounter Details Date Type Department Care Team (Latest Contact Info) Description 11/24/2018 8:28 AM CDT - 11/24/2018 11:59 PM T Hospital Encounter [facility] [address] [place] [address] Asher Garrison MD [address] [address] Tati Johnson, KIT PLANNER Jnt Pain/Knee (L knee pain) Discharge Disposition: Home or Self Care (Routine [...] this encounter Progress Notes * Tati Johnson, KIT PLANNER - 11/24/2018 9:29 AM CDT Physical Therapy Visit Note: Patient Name: Milagros Torres Diagnosis: Knee pain [M25.569] SUBJECTIVE Therapy Visit Treatment Day: 4 Total Approved Visits: 24 Authorization Expiration Date: 11/22/19 Therapy Plan of Care: Ther Ex, Modalities, Ktape, HEP Diagnosis: L knee Referring Provider: Dr. Garrison Next MD Visit: no set f/u Date of Injury: August 2018 Subjective Note: Pt reports L knee is hurting today and rates the pain as 4/10. Pt states she probably did a little more than she should have on vacation. Response to prior treatment: Good - unsure if tape helped Compliance to Home Program: Did not do HEP on vacation Reported Falls since last visit: no Medications changes since last visit : no Pain Current Location of Pain: L knee Current Pain Level: 4/10 OBJECTIVE Treatment provided today: Therapeutic Exercise - 63666 Number of minutes: 32 Cardio Equipment: Nustep (S7, A8) L2 x7' Exercise: Slant board L4 x1' Exercise: Long sitting HS stretch, 30 sec x 3 Exercise: V board ROM + BAL x1' ea, ea way Exercise: TKE Fwd/Retro blue Tband x 10 ea L Exercise: 3 way kicks x 5 B Exercise: 4 step ups x 10 B Exercise: TG squats - future Exercise: TG PF/DF - future Other (Comments): held - pt unsure if it helped or not. May resume at next rx if pt requests it. Modalities Number of minutes (Timed Procedures): 10 Ultrasound - 86419: Frequency 1MHz, Pulsed 50%, 8 minutes, 1.0 W/cm2 Ultrasound Body Part and Patient Position: L medial knee in supine w/ bolster Number of minutes (Non-Timed Procedures): 10 Cold Pack: CP to L knee hooklying x 10' Home Exercise Program Current Home Exercise Program: Continue current HEP Education Was Education Provided: Yes Topic: cues for proper technique for ther ex Recipient: Patient Method: Verbal Response: Verbalized understanding ASSESSMENT Assessment Note: Pt able to complete ex but subjectively reports I can feel it. Modalities help slightly decrease painful symptoms. Response to Treatment : Good PLAN Plan Next Visit Plan: Continue PT. Resume k-tape if needed. Total Time Total Time in Minutes: 52 Timed Code Treatment Minutes : 42 documented in this encounter Plan of Treatment Not on file documented as of this encounter Visit Diagnoses Diagnosis Knee pain- Primary Pain in joint, lower leg documented in this encounter Additional Health Concerns Assessment Noted Time PHQ-9 Depression Total Score: 3 10/24/19 19 10:57 AM CDT documented as of this encounter Care Teams Quantitative Developer Relationship Specialty Start Date End Date Asher Garrison MD PCP - General INTERNAL MEDICINE 10/23/18 documented as of this encounter
--- OUTSIDE RECORDS SUMMARY | 2024-04-25 14:12 | XMS_ITS | Encounter Summary ---
Author Organization [facility] Address [address] [place] [address]. [place] [address] Care Team Providers Care Heating Element Repairer Name Role Phone Asher Garrison MD Primary Care Provider [phone] Encounter Details Date Type Department Care Team (Latest Contact Info) Description 02/01/2020 Scan HEALTH INFO SRVCS Scanned, Documents Social [...] documented as of this encounter Care Teams Heating Element Repairer Relationship Specialty Start Date End Date Asher Garrison MD PCP - General INTERNAL MEDICINE 10/23/18 documented as of this encounter
--- OUTSIDE RECORDS SUMMARY | 2024-04-25 14:13 | XMS_ITS | Encounter Summary ---
Author Organization [facility] Address [address] [place] [address]. [place], [place] [address] [place] [address] Care Team Providers Care Rodding Machine Tender Name Role Phone Unavailable Primary Care Provider Unavailabl e Encounter Details Date Type Department Care Team (Late st Contact Info) Description 09/04/2017 Abstract [facility] [address] [place], [place] [id number] Asher Garrison MD [address] [address] Social History Tobacco Use Types Packs/Day Years Used Date Smoking Tobacco: Never Assessed Comments Unknown Sex and Gender Information Value Date Recorded Sex Assigned at Not on file Legal Sex Female 7:16 PM CDT Gender Identity Not on file Sexual Orientation Not on file documented as of this encounter Plan of Treatment Not on file documented as of this encounter Procedures Procedure Name Priority Date/Time Associated Diagnosis Comments URINE BACTERIA CULTURE Routine 09/04/2017 11:05 AM CDT documented in this encounter Results * CULTURE URINE (09/04/2017 11:05 AM CDT) SPEC DESCRIPTION URINE CLEAN CATCH 09/04/2017 5:14 PM CDT [facility] SPECIAL REQUESTS NO SPECIAL REQUEST 09/04/2017 5:14 PM CDT [facility] CULTURE RESULT NO GROWTH 2 DAYS 09/07/2017 8:44 AM CDT [facility] URINE SPECIMEN OBTAINED BY CLEAN CATCH PROCEDURE / Unknown 09/04/2017 11:05 AM CDT 09/04/2017 5:50 PM CDT us Generic Conversion Md [facility] MICROBIOLOGY - GENERAL ORDERABLES Final Result Performing Organization Address City/State/[facility] Co de Phone Number [facility] [address] [place] [address], [place] [phone] [facility] [address] [place] [address], [place] [phone] documented in this encounter Visit Diagnoses Diagnosis Abdominal pain Abdominal pain, unspecified site documented in this encounter
--- OUTSIDE RECORDS SUMMARY | 2024-04-25 14:13 | XMS_ITS | Encounter Summary ---
Author Organization [facility] Address [address] [place] [address]. [place] [address] Care Team Providers Care Gas Plant Technician Name Role Phone Unavailable Primary Care Provider Unavailabl e Reason for Visit * Reason Comments Outside Record (SCAN) [facility] REPORT Encounter Details Date Type Department Care Team (Late st Contact Info) Description 05/18/2018 Scan HEALTH INFO SRVCS Scanned, Documents Outside Record (SCAN) ([facility] REPORT) Social History Tobacco Use Types Packs/Day Years [...]
--- OUTSIDE RECORDS SUMMARY | 2024-04-25 14:13 | XMS_ITS | Encounter Summary ---
Author Organization [facility] Address [address] [place] [address]. [place] [address] Care Team Providers Care Cutting And Creasing Press Operator Name Role Phone Unavailable Primary Care Provider Unavailabl e Reason for Visit * Reason Comments CT (SCAN) CT BRAIN W/O, CT FAC IAL & CERVICAL SPINE W/O Encounter Details Date Type Department Care Team (Late st Contact Info) Description 04/12/2018 Scan HEALTH INFO SRVCS Scanned, Documents CT (SCAN) (CT BRAIN W/O, CT FACIAL & CERVICAL SPINE W/O) Social History Tobacco Use Types Packs/Day Years [...]
--- OUTSIDE RECORDS SUMMARY | 2024-04-25 14:13 | XMS_ITS | Encounter Summary ---
Author Organization [facility] Address [address] [place] [address]. [place] [address] Care Team Providers Care Mind Reader Name Role Phone Asher Garrison MD Primary Care Provider [phone] Reason for Referral * Consultation/Treatment (Routine) - Closed Specialty Diagnoses / Procedures Referred By Contac t Referred To Contact ORTHOPAEDICS Diagnoses Acute pain of left knee Right elbow pain Asher Garrison MD Phone: tel: fax: [address] [place] [address] Phone: tel: fax: Referral ID Status Reason Start Date Expiration Date V isits Requested Visits Authorized [id number] Closed Specialty Services 10/23/2018 11/23/2019 100 100 * Physical Medicine (Routine) - Closed Specialty Diagnoses / Procedures Referred By Contac t Referred To Contact PHYSICAL THERAPY / [facility] Physical Therapy Diagnoses Acute pain of left knee Right elbow pain Asher Garrison MD Phone: tel: fax: [facility] [address] [place] [address] Phone: tel: fax: Referral ID Status Reason Start Date Expiration Date V isits Requested Visits Authorized [id number] Closed Physical Therapy 10/23/2018 11/22/2019 24 24 Reason for Visit * Reason Comments Elbow Pain right elbow pain X 3 weeks Knee Pain left knee pain below knee cap, trouble walking X 1 month Encounter Details Date Type Department Care Team (Late st Contact Info) Description 10/23/2018 10:40 AM CDT Office Visit [facility] [address] [place] [address] Asher Garrison MD [address] [place] [address] Elbow Pain (right elbow pain X 3 weeks); Knee Pain (left knee pain below knee cap, trouble walking X 1 month) Social History Tobacco Use Types Packs/Day Years [...] Mass Index 31.79 10/23/2018 10:49 AM CDT documented in this encounter Patient Instructions * Patient Instructions* Asher Garrison MD - 10/23/2018 10:40 AM CDT Milagros, Thank you for your visit. See handouts You may check in at the hospital front end architect for radiographs today We will call with results when available and mail copies to you. I have placed the referrals noted below - you should receive a phone call in the next 2 weeks to schedule this(these) appointment(s). Use medications as directed. Return if symptoms worsen or fail to improve. Call with any concerns. Have a good day! documented in this encounter Progress Notes * Asher Garrison MD - 10/23/2018 10:40 AM CDT SUBJECTIVE: Reason for Visit/Chief Complaint: Elbow Pain (right elbow pain X 3 weeks) and Knee Pain (left knee pain below knee cap, trouble walking X 1 month) History of Present Illness: Milagros presents with left knee pain ongoing for the past month. No known injury. She has been takingAleve for symptoms, twice daily. No pain at rest. Worse with walking. Difficulty getting up from a sitting position. No previous history of injury. Sister had metastatic breast cancer to joints, so daughter is concerned for this, given Milagros's breast cancer. Knee occasionally locks, but does not hav e giveaway weakness. Additionally, she reports recent right olecranon/elbow pain. Pain with extension especially after rest. No pain a rest. No specific treatments, also no known injury. Review of Systems: Pertinent positives and negatives as noted in HPI. All other systems reviewed and negative. Allergies: Milagros has No Known Allergies. Medications: Current Outpatient Medications Medication Sig ??? tamoxifen 20 MG tablet Take 1 tablet by mouth daily. No current facility-administered medications for this visit. OBJECTIVE: Vital Signs: Blood pressure 130/70, pulse 75, temperature 98.4 ??F (36.9 ??C), temperature source Oral, resp. rate 18, height 5' 7 (1.702 m), weight 92.1 kg (203 lb), SpO2 97 %. Body mass index is 31.79 kg/m??. Physical Exam: GENERAL: Well-developed and obese, cooperative. Well-appearing, in no acute distress. SKIN: Normal color, warm & dry. No lesions. HEAD: Normocephalic, without trauma. EENT: Extraocular movements intact, pupils equal, round, and reactive to light. Sclerae anicteric, conjunctivae non-injected and without discharge. NECK: Supple. RESPIRATORY: Airway patent. No respiratory distress. CARDIOVASCULAR: Peripheral pulses palpable. MUSCULOSKELETAL: Normal range of motion. EXTREMITIES: Warm, without clubbing, cyanosis, or edema. Left knee is without deformity, or any significant effusion. No ligamentous laxity or tenderness. Positive Apley maneuver and anterior joint space tenderness at the meniscal line, medial greater than lateral. Right elbow reveals no tendernessto either epicondyles, but there is some tenderness posteriorly, at the insertion point of the triceps. NEUROLOGIC: Alert & oriented x 3. Cranial nerves normal as tested. No gross motor deficits. PSYCHOLOGIC: Normal affect. GENITOURINARY: Deferred. Additional Data: None. ASSESSMENT & PLAN: 1. Acute pain of left knee Symptoms most consistent with meniscal tear. Will obtain radiographs to rule out any bony abnormality. Referrals to orthopedics and physical therapy. Handouts provided. Short course of prednisone foranti-inflammatory effect. 2. Right elbow pain Symptoms most consistent with triceps tendonitis, but will check radiographs for any other abnormality. Referral to physical therapy for evaluation and treatment. Anti-inflammatories. Handout provided. Medication Changes/Renewals & Orders: Orders Placed This Encounter ??? XR KNEE 4V LT W PATELLA ??? XR ELBOW RT 2V ??? Ambulatory referral to Physical Therapy ??? Ambulatory referral to Orthopedics (OTHER) ??? tamoxifen 20 MG tablet ??? predniSONE 20 MG tablet Follow-up: Return if symptoms worsen or fail to improve. Asher Garrison MD [facility] 10/23/2018 Portions of this note were dictated using [employer]ik[employer] speech recognition software. Occasional wrong wordor sound-alike substitutions may have occurred due to the inherent limitations of voice recognition software. Please read the chart carefully and recognize, using context, where the substitutions may have occurred. documented in this encounter Plan of Treatment Scheduled Referrals Name Type Priority Associated Diagnoses Orde r Schedule Ambulatory referral to Physical Therapy Referral Routine Acute pain of left knee Right elbow pain Ordered: 10/23/2018 Ambulatory referral to Orthopedics (OTHER) Referral Routine Acute pain of left knee Right elbow pain Ordered: 10/23/2018 documented as of this encounter Results * XR ELBOW RT 2V (10/23/2018 1:08 PM CDT) Anatomical Region Laterality Modality Elbow Radiographic Alena ging 10/23/2018 3:09 PM CDT Impressions 10/23/2018 3:14 PM CDT IMPRESSION: 1. ??No evidence of acute fracture or dislocation of the elbow. ?? 2. ??Probable chronic lateral epicondylitis. Interpreted By: Zeferino Brennan, 10/23/2018 3:09 PM Narrative 10/23/2018 3:14 PM CDT IMAGING STUDIES: ?XR ELBOW RT 2V ? DATE: ??10/23/2018 12:50 PM COMPARISON STUDIES: No previous available. ?? CLINICAL HISTORY: ??pain ?? . ?. FINDINGS: The anterior fat pad has a normal configuration. ??The posterior fat pad is not visible. ??No fracture, dislocation, radiopaque foreign body, or abnormal soft tissue calcification. Lateral epicondyle enthesophyte. Procedure Note Zeferino Brennan MD - 10/23/2018 IMAGING STUDIES: XR ELBOW RT 2V DATE: 10/23/2018 12:50 PM COMPARISON STUDIES: No previous available. CLINICAL HISTORY: pain . . FINDINGS: The anterior fat pad has a normal configuration. The posterior fat padis not visible. No fracture, dislocation, radiopaque foreign body, or abnormal soft tissue calcification. Lateral epicondyle enthesophyte. IMPRESSION: 1. No evidence of acute fracture or dislocation of the elbow. 2. Probable chronic lateral epicondylitis. Interpreted By: Zeferino Brennan, 10/23/2018 3:09 PM us Asher Garrison MD GENERAL IMAGING Final Res ult * XR KNEE 4V LT W PATELLA (10/23/2018 1:08 PM CDT) Anatomical Region Laterality Modality Knee Radiographic Alena ging 10/23/2018 3:07 PM CDT Impressions 10/23/2018 3:08 PM CDT FINDINGS AND IMPRESSION: 1. ??No definitive evidence of acute fracture or dislocation. No destructive or lytic lesions. No radiopaque foreign bodies or abnormal soft tissue calcifications noted. 2. ??Fatk-hh-tqmbppuv tricompartmental degenerative changes. No chondrocalcinosis. 3. ??Deep femoral condyle notch sign could be associated with ACL injury. 4. ??Suprapatellar joint effusion Interpreted By: Zeferino Brennan, 10/23/2018 3:07 PM Narrative 10/23/2018 3:08 PM CDT IMAGING STUDIES: ??XR KNEE 4V LT W PATELLA ? DATE: ??10/23/2018 12:50 PM COMPARISON STUDIES: No previous available. ?? CLINICAL HISTORY: ??pain ?? . ? Procedure Note Zeferino Brennan MD - 10/23/2018 IMAGING STUDIES: XR KNEE 4V LT W PATELLA DATE: 10/23/2018 12:50 PM COMPARISON STUDIES: No previous available. CLINICAL HISTORY: pain . FINDINGS AND IMPRESSION: 1. No definitive evidence of acute fracture or dislocation. Nodestructive or lytic lesions. No radiopaque foreign bodies or abnormal soft tissue calcifications noted. 2. Rbso-pw-edcdctkv tricompartmental degenerative changes. No chondrocalcinosis. 3. Deep femoral condyle notch sign could be associated with ACL injury. 4. Suprapatellar joint effusion Interpreted By: Zeferino Brennan, 10/23/2018 3:07 PM us Asher Garrison MD GENERAL IMAGING Final Res ult documented in this encounter Visit Diagnoses Diagnosis Acute pain of left knee- Primary Right elbow pain Pain in joint, upper arm Acute pain of left knee Right elbow pain Pain in joint, upper arm documented in this encounter Additional Health Concerns Assessment Noted Time PHQ-9 Depression Total Score: 3 10/24/19 19 10:57 AM CDT documented as of this encounter Care Teams Mind Reader Relationship Specialty Start Date End Date Asher Garrison MD PCP - General INTERNAL MEDICINE 10/23/18 documented as of this encounter
--- OUTSIDE RECORDS SUMMARY | 2024-04-25 14:13 | XMS_ITS | Encounter Summary ---
Author Organization [facility] Address [address] [place] [address]. [place] [address] Care Team Providers Care Saddle And Side Wire Stitcher Name Role Phone Unavailable Primary Care Provider Unavailabl e Encounter Details Date Type Department Care Team (Latest Contact Info) Description 09/18/2017 Abstract [facility] Social History Tobacco Use Types Packs/Day Years Used Date Smoking Tobacco: Never Assessed Comments Unknown Sex and Gender Information Value Date Recorded Sex Assigned at Not on file Legal Sex Female 7:16 PM CDT Gender Identity Not on file Sexual Orientation Not on file documented as of this encounter Progress Notes * Generic Conversion MD Domenic - 09/18/2017 12:00 AM CDT Message Recorded as Task Date: 10/23/2017 11:41 AM, Created By: Leila Kohler Task Name: Renew Medication Assigned To: [facility] Nurse Team Regarding Patient: Milagros Torres, Status: Active Comment: Leila Kohler - 23 Oct 2017 11:41 AM TASK CREATED [facility] in [place] called to request a refill of pt's Clonazapam .5MG Kristin Zheng - 24 Oct 2017 11:32 AM TASK EDITED Refill called into pharmacy Plan 1. ClonazePAM 0.5 MG Oral Tablet; TAKE ONE TABLET BY MOUTH AT BEDTIME Rx By: Ganga Galaviz; Dispense: 30 Days ; #:30 Tablet; Refill: 0; For: Anxiety; ASHA = N; Call Rx; Last Updated By: Kristin Zheng; 10/24/2017 11:32:24 AM rx called into [facility] [place] per [facility]R. galaviz, called into [facility] [place] per [place], called into [facility] [place] per [place], called into Pharmacy. Signatures Electronically signed by : Kristin Zheng R.N.; Oct 24 2017 11:32AM DIRECTOR FUNDS DEVELOPMENT (Author) documented in this encounter Plan of Treatment Not on file documented as of this encounter Visit Diagnoses Not on filedocumented in this encounter
--- OUTSIDE RECORDS SUMMARY | 2024-04-25 14:13 | XMS_ITS | Encounter Summary ---
Author Organization [facility] Address [address] [place] [address]. [place] [address] Care Team Providers Care Corn Shucker Name Role Phone Unavailable Primary Care Provider Unavailabl e Encounter Details Date Type Department Care Team (Latest Contact Info) Description 03/04/2018 Abstract [facility] , Generic Conversion, Social History Tobacco Use Types Packs/Day Years [...]
--- OUTSIDE RECORDS SUMMARY | 2024-04-25 14:13 | XMS_ITS | Encounter Summary ---
Author Organization [facility] Address [address] [place] [address]. [place] [address] Care Team Providers Care Pharmacist In Charge Owner Name Role Phone Unavailable Primary Care Provider Unavailabl e Encounter Details Date Type Department Care Team (Latest Contact Info) Description 01/19/2018 Scan HEALTH INFO SRVCS Scanned, Documents Social [...]
--- OUTSIDE RECORDS SUMMARY | 2024-04-25 14:13 | XMS_ITS | Encounter Summary ---
Author Organization [facility] Address [address] [place] [address]. [place] [address] Care Team Providers Care Mainframe Analyst Name Role Phone Unavailable Primary Care Provider Unavailabl e Encounter Details Date Type Department Care Team (Latest Contact Info) Description 03/10/2018 Scan [facility] , Generic Conversion, Social History [...]
--- OUTSIDE RECORDS SUMMARY | 2024-04-25 14:13 | XMS_ITS | Encounter Summary ---
Author Organization [facility] Address [address] [place] [address]. [place] [address] Care Team Providers Care Channel Opener Name Role Phone Unavailable Primary Care Provider Unavailabl e Encounter Details Date Type Department Care Team (Latest Contact Info) Description 12/05/2017 Abstract [facility] Social History Tobacco Use Types Packs/Day Years Used Date Smoking Tobacco: Never Assessed Comments Unknown Sex and Gender Information Value Date Recorded Sex Assigned at Not on file Legal Sex Female 7:16 PM CDT Gender Identity Not on file Sexual Orientation Not on file documented as of this encounter Progress Notes * Asher Garrison MD - 12/05/2017 11:17 AM CDT Message Recorded as Task Date: 12/03/2017 10:30 AM, Created By: Arabella Hull Task Name: Renew Medication [facility] Regarding Patient: Milagros Torres, Status: In Progress Comment: Arabella Hull - 03 Dec 2017 10:30 AM TASK CREATED Caller: Liliane Yoder; [phone] Liliane called requesting a refill on patient's Clonazepam. Amber Deleon - 03 Dec 2017 11:57 AM TASK EDITED Called pt at [phone] and left VM for pt to return call. Need to know if pt has changed insurances. Pt has [place], she will need an apt for refill and we do not accept [place], if she has not changed ins she will need to make an apt with her new PCP that should have been provided by [facility]. Called [facility] in [place] to inform them patient will need an apt for refills. Amber Deleon - 03 Dec 2017 11:57 AM TASK IN PROGRESS Amber Deleon - 05 Dec 2017 11:17 AM TASK EDITED Spoke with pt and pt aware that Clonazepam will not be refilled without an apt. She v/u and states she still has [employer] and that she is working on changing her insurance to one that our office accepts. Signatures Electronically signed by : Amber Deleon, ; Dec 05 2017 11:18AM CROSS TIE TRAM LOADER (Author) documented in this encounter Plan of Treatment Not on file documented as of this encounter Visit Diagnoses Not on filedocumented in this encounter
--- OUTSIDE RECORDS SUMMARY | 2024-04-25 14:14 | XMS_ITS | Encounter Summary ---
Author Organization [facility] Address [address] [place] [address]. [place], [place] [id number] [place] [id number] Care Team Providers Care Residential Substance Abuse Counselor Name Role Phone Unavailable Primary Care Provider Unavailabl e Encounter Details Date Type Department Care Team (Late st Contact Info) Description 03/06/2017 Abstract [facility] Medical [facility] Family & Internal Medicine [address] [phone] Bailey Pleitez APNP Social History Tobacco Use Types Packs/Day Years Used Date Smoking Tobacco: Never Assessed Comments Unknown Sex and Gender Information Value Date Recorded Sex Assigned at Not on file Legal Sex Female 7:16 PM CDT Gender Identity Not on file Sexual Orientation Not on file documented as of this encounter Last Filed Vital Signs Vital Sign Reading Time Taken Comments Blood Pressure 114/70 03/06/2017 12:50 PM CDT Pulse 68 03/06/2017 12:50 PM CDT Temperature - - Respiratory Rate - - Oxygen Saturation - - Inhaled Oxygen Concentration - - Weight 88.2 kg (194 lb 6.4 oz) 03/06/2017 12:50 PM CDT Height 167.6 cm (5' 6 ) 03/06/2017 12:50 PM CDT Body Mass Index 31.38 03/06/2017 12:50 PM CDT documented in this encounter Progress Notes * WHITNEY Daley - 03/06/2017 12:40 PM CDT Reason For Visit Reason For Visit: Acute Visit Chief Complaint pt c/o sore throat, cough, body aches started two days ago. History of Present Illness Cough: Milagros Torres presents with complaints of gradual onset of constant episodes of moderate cough, described as loose and productive. Episodes started about 4 days ago. She is currently experiencing cough. Her symptoms are reportedly caused by cold symptoms. Symptoms are improved by resting, sitting up, cough medicine and NSAIDs. Symptoms are made worse by activity. Symptoms are unchanged. Risk Factor s: exposure to ill person. Associated symptoms include stuffy nose, sore throat, postnasal drainage and headache. Review of Systems See HPI for pertinent positives. Constitutional: feeling poorly, feeling tired and headache. ENT: sore throat and nasal discharge. Cardiovascular: Normal. Respiratory: cough. Gastrointestinal: Normal. Genitourinary: Normal. Integumentary: Normal. Musculoskeletal: Normal. Neurological: Normal. Psychiatric: Normal. Active Problems 1. Anxiety (300.00) (F41.9) 2. Benign essential HTN (401.1) (I10) 3. BMI 32.0-32.9,adult (V85.32) (Z68.32) 4. Depression (311) (F32.9) 5. Wears glasses (V49.89) (Z97.3) Past Medical History History of Abnormal mammogram (793.80) (R92.8) History of Cyst of joint of hand, right (719.84) (M25.841) History of Elevated blood pressure History of Flank pain (789.09) (R10.9) History of Gallstones (574.20) (K80.20) History of Hand pain (729.5) (M79.643) History of Hemangioma of skin (228.01) (D18.01) History of herpes zoster (V12.09) (Z86.19) History of Laceration of left lower leg with complication (891.1) (S81.812A) History of Lipid screening (V77.91) (Z13.220) History of Lung nodule seen on imaging study (793.11) (R91.1) History of Need for Tdap vaccination (V06.1) (Z23) History of Other superficial bite of lower leg (916.8) (S80.879A) History of Screening for hypothyroidism (V77.0) (Z13.29) History of Skin lesion (709.9) (L98.9) Patient indicats no significant past medical history. Surgical History History of Breast Surgery Lumpectomy ?? left breast September 04, 2015 History of Section ?? 1990 History of Dilation And Curettage ?? Dr Jean Marie Reynoso History of hand surgery ?? right hand cyst removed Patient indicates no past surgical history. Family History Family history of Family history of cerebrovascular accident (CVA) (V17.1) (Z82.3) Family history of lung cancer (V16.1) (Z80.1) Family history of Family history of malignant neoplasm of breast (V16.3) (Z80.3) Patient indicates no significant family history of disease. Social History Daily caffeine consumption ?? two glasses of tea per day Dental care, regularly ?? 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 Immunizations Tdap --- Series1: 14-Nov-2016 Current Meds 1. ClonazePAM 1 MG Oral Tablet; TK 1 T PO QHS; Therapy: 08Oct2016 to Recorded Rx By: MEHREEN; Dispense: 0 Days ; #: Sufficient Tablet; Refill: 0; ASHA = N; Record; Last UpdatedBy: Mikala Traylor; 03/06/2017 12:55:13 PM 2. Tamoxifen Citrate 20 MG Oral Tablet; TAKE 1 TABLET DAILY; Therapy: [id number] to Recorded Dispense: 0 Days ; #: Sufficient Tablet; Refill: 0; For: PMH: Abnormal mammogram; ASHA = N; Record; Last Updated By: Mikala Traylor; 11/17/2015 8:41:46 AM 3. Venlafaxine HCl ER 150 MG Oral Capsule Extended Release 24 Hour; TAKE 1 CAPSULE BY MOUTH EVERY DAY WITH FOOD; Therapy: 27Feb2016 to (Evaluate:[id number]) Requested for: 19Dec2016; Last Rx:19Dec2016 Ordered Rx By: Bailey Pleitez; Dispense: 30 Days ; #:30 Capsule; Refill: 2; For: Anxiety; ASHA = N; Verified Transmission to [facility] [id number]; Last Updated By: Cheryl Philippe; 12/19/2016 2:03:06 PM Allergies 1. No Known Drug Allergies Recorded By: Mikala Traylor; 07/13/2015 7:08:04 AM Vitals Recorded: 06Mar2017 12:50PM Temperature 98.4 F Heart Rate 68 Respiration 16 Systolic 114 Diastolic 70 O2 Saturation 98 Height 5 ft 6 in Weight 194 lb 6.4 oz BMI Calculated 31.38 BSA Calculated 1.98 Physical Exam Constitutional General appearance: Abnormal. acutely ill, uncomfortable and appears tired. Ears, Nose, Mouth, and Throat External inspection of ears and nose: Normal. Otoscopic examination: Tympanic membranes translucent with normal light reflex. Canals patent without erythema. Oropharynx: Abnormal. The posterior pharynx was erythematous. Pulmonary Respiratory effort: Abnormal. Respiratory rate: normal at 18 breaths per minute. Assessment of respiratory effort revealed normal rhythm and effort. Respiratory Findings: wet cough. Auscultation of lungs: Abnormal. Auscultation of the lungs revealed decreased breath sounds diffusely. rhonchi over both apices. Cardiovascular Auscultation of heart: Normal rate and rhythm, normal S1 and S2, without murmurs. Abdomen Abdomen: Non-tender, no masses. Lymphatic Palpation of lymph nodes in neck: No lymphadenopathy. Musculoskeletal Gait and station: Normal. Psychiatric Orientation to person, place, and time: Normal. Mood and affect: Normal. Assessment 1. Acute URI (465.9) (J06.9) Plan Acute URI 1. Azithromycin 250 MG Oral Tablet; TAKE 2 TABLETS ON DAY 1 THEN TAKE 1 TABLET A DAY FOR 4 DAYS Rx By: Bailey Pleitez; Dispense: 5 Days ; #:6 Tablet; Refill: 0; For: Acute URI; ASHA = N; Sent To:[facility] # [id number] Discussion/Summary Acute URI- Discussed Abx therapy, increased oral fluid intake, rest and continued use of OTC medications for added symptom relief. FU PRN Signatures Electronically signed by : Bailey Pleitez NP; Mar 06 2017 1:46PM RANGER AIDE (Author) documented in this encounter Miscellaneous Notes * Letter - WHITNEY Daley - 03/06/2017 12:40 PM CDT Milagros Torres may return to work on 03/08/2017. Milagros can return without limitations. She was out from 03/06/2017 to 03/07/2017. Electronically signed by : Bailey Pleitez NP; Mar 06 2017 1:46PM RANGER AIDE (Author) documented in this encounter Plan of Treatment Not on file documented as of this encounter Visit Diagnoses Not on filedocumented in this encounter
--- OUTSIDE RECORDS SUMMARY | 2024-04-25 14:14 | XMS_ITS | Encounter Summary ---
Author Organization [facility] Address [address] [place] [address]. [place] [address] Care Team Providers Care Bus Driver Name Role Phone Unavailable Primary Care Provider Unavailabl e Encounter Details Date Type Department Care Team (Latest Contact Info) Description 08/01/2017 Abstract [facility] Heraclio Myers MD Social History Tobacco Use Types Packs/Day Years Used Date Smoking Tobacco: Never Assessed Comments Unknown Sex and Gender Information Value Date Recorded Sex Assigned at Not on file Legal Sex Female 7:16 PM CDT Gender Identity Not on file Sexual Orientation Not on file documented as of this encounter Progress Notes * Generic Conversion MD Domenic - 08/01/2017 3:17 PM CDT Message Recorded as Task Date: 08/01/2017 10:07 AM, Created By: Arabella Hull Task Name: Renew Medication [facility] Team Regarding Patient: Milagros Torres, Status: In Progress Comment: Arabella Hull - 01 Aug 2017 10:07 AM TASK CREATED Caller: Liliane Yoder; [phone] Calling for a refill on pt's Clonazepam. Lianna Chiang 01 Aug 2017 10:11 AM TASK REASSIGNED: [facility] Shireen Farnsworth 01 Aug 2017 11:57 AM TASK EDITED Routine medication, last visit 22Feb, will ask Dr. Galaviz if ok to fill. Shireen Farnsworth 01 Aug 2017 11:57 AM TASK IN PROGRESS Shireen Farnsworth 01 Aug 2017 3:22 PM TASK EDITED Called in Plan 1. ClonazePAM 0.5 MG Oral Tablet; TAKE ONE TABLET BY MOUTH AT BEDTIME Rx By: Ganga Galaviz; Dispense: 30 Days ; #:30 Tablet; Refill: 0; For: Anxiety; ASHA = N; Call Rx; Last Updated By: Shireen Farnsworth; 08/01/2017 3:21:56 PM Ok per dR. galaviz, called into [facility] pharmacy Ok per Bailey, called into [facility] Ok per Bailey, called into Pharmacy. Signatures Electronically signed by : Shireen Farnsworth, ; Aug 01 2017 3:22PM PROCUREMENT INTERNSHIP (Author) documented in this encounter Plan of Treatment Not on file documented as of this encounter Visit Diagnoses Not on filedocumented in this encounter
--- OUTSIDE RECORDS SUMMARY | 2024-04-25 14:14 | XMS_ITS | Encounter Summary ---
Author Organization [facility] Address [address] [place] [address]. [place], [place] [id number] [place] [address] Care Team Providers Care Staff Psychologist Name Role Phone Unavailable Primary Care Provider Unavailabl e Encounter Details Date Type Department Care Team (Late st Contact Info) Description 06/12/2017 Abstract [facility] Medical Group Family & Internal Medicine [address] [phone] Bailey Pleitez APNP Social History [...] Sign Reading Time Taken Comments Blood Pressure 116/72 06/12/2017 8:56 AM APPAREL DESIGNER Pulse 72 06/12/2017 8:56 AM APPAREL DESIGNER Temperature - - Respiratory Rate - - Oxygen Saturation - - Inhaled Oxygen Concentration - - Weight 87.9 kg (193 lb 12.8 oz) 06/12/2017 8:56 AM APPAREL DESIGNER Height 167.6 cm (5' 6 ) 06/12/2017 8:56 AM APPAREL DESIGNER Body Mass Index 31.28 06/12/2017 8:56 AM APPAREL DESIGNER documented in this encounter Progress Notes * WHITNEY Daley - 06/12/2017 8:40 AM CST Reason For Visit Reason For Visit: Acute Visit Chief Complaint pt c/o fever blister started a week ago, put Abreva and area dried up. now area is oozing at times. History of Present Illness Herpes Simplex, Oral (Brief): The patient is being seen for an initial evaluation of an existing diagnosis of oral herpes simplex. The patient presents with complaints of gradual onset of constant episodes of mild corrine-oral lesions, described as painless and blisters. Episodes started about 2 weeks ago. She is currently experiencing corrine-oral lesions. Her symptoms are caused by no known event Symptoms are improving (Scabbed area to left lower lip, reportedly improving yet it breaks open at HS while sleeping and bleeds . Notimproving with topicals).. The patient is currently experiencing symptoms. No associated symptoms are reported. Review of Systems See HPI for pertinent positives. Constitutional: Normal. ENT: normal. Cardiovascular: Normal. Respiratory: Normal. Gastrointestinal: Normal. Genitourinary: Normal. Integumentary: Normal. Musculoskeletal: Normal. Neurological: Normal. Psychiatric: Normal. Active Problems 1. Anxiety (300.00) (F41.9) 2. Benign essential HTN (401.1) (I10) 3. BMI 32.0-32.9,adult (V85.32) (Z68.32) 4. Depression (311) (F32.9) 5. Wears glasses (V49.89) (Z97.3) Past Medical History 1. History of Abnormal mammogram (793.80) (R92.8) 2. History of Acute URI (465.9) (J06.9) 3. History of Cyst of joint of hand, right (719.84) (M25.841) 4. History of Elevated blood pressure 5. History of Flank pain (789.09) (R10.9) 6. History of Gallstones (574.20) (K80.20) 7. History of Hand pain (729.5) (M79.643) 8. History of Hemangioma of skin (228.01) (D18.01) 9. History of herpes zoster (V12.09) (Z86.19) 10. History of Laceration of left lower leg with complication (891.1) (S81.812A) 11. History of Lipid screening (V77.91) (Z13.220) 12. History of Lung nodule seen on imaging study (793.11) (R91.1) 13. History of Need for Tdap vaccination (V06.1) (Z23) 14. History of Other superficial bite of lower leg (916.8) (I37.516D) 15. History of Screening for hypothyroidism (V77.0) (Z13.29) 16. History of Skin lesion (709.9) (L98.9) Surgical History 1. History of Breast Surgery Lumpectomy ?? left breast September 04, 2015 2. History of Section ?? 1990 3. History of Dilation And Curettage ?? Dr Jean Marie Reynoso 4. History of hand surgery ?? right hand cyst removed Family History Mother 1. Family history of 2. Family history of cerebrovascular accident (CVA) (V17.1) (Z82.3) 3. Family history of lung cancer (V16.1) (Z80.1) Father 4. Family history of Sister 5. Family history of malignant neoplasm of breast (V16.3) (Z80.3) Social History ?? Daily caffeine consumption ?? two glasses of tea per day ?? Dental care, regularly ?? twice yearly ? Does not exercise (V69.0) (Z72.3) ?? Graduated from high school ?? House ?? Never a smoker ?? No advance directives (V49.89) (Z78.9) ?? No illicit drug use ?? 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 Social alcohol use (Z78.9) Immunizations Tdap --- Series1: 14-Nov-2016 Current Meds 1. ClonazePAM 0.5 MG Oral Tablet; TAKE ONE TABLET BY MOUTH AT BEDTIME; Therapy: 08Oct2016 to (Evaluate:[id number]); Last Rx:09May2017 Ordered Rx By: Bailey Pleitez; Dispense: 30 Days ; #:30 Tablet; Refill: 0; For: Anxiety; ASHA = N; Call Rx 2. Tamoxifen Citrate 20 MG Oral Tablet; TAKE 1 TABLET DAILY; Therapy: 17Nov2015 to Recorded Dispense: 0 Days ; #: Sufficient Tablet; Refill: 0; For: PMH: Abnormal mammogram; ASHA = N; Record; Last Updated By: Mikala Traylor; 11/17/2015 8:41:46 AM 3. Venlafaxine HCl ER 150 MG Oral Capsule Extended Release 24 Hour; TAKE 1 CAPSULE BY MOUTH EVERY DAY WITH FOOD; Therapy: 27Feb2016 to (Evaluate:[id number]) Requested for: 21Mar2017; Last Rx:21Mar2017 Ordered Rx By: Bailey Pleitez; Dispense: 30 Days ; #:30 Capsule; Refill: 2; For: Anxiety; ASHA = N; Verified Transmission to [facility] [id number]; Last Updated By: [employer]; 03/21/2017 2:18:13 PM Allergies 1. No Known Drug Allergies Recorded By: Mikala Traylor; 07/13/2015 7:08:04 AM Vitals Recorded: [id number] 08:56AM Temperature 97.8 F Heart Rate 72 Respiration 16 Systolic 116 Diastolic 72 O2 Saturation 99 Height 5 ft 6 in Weight 193 lb 12.8 oz BMI Calculated 31.28 BSA Calculated 1.97 Physical Exam Constitutional General appearance: No acute distress, well appearing and well nourished. Ears, Nose, Mouth, and Throat Oropharynx: Normal with no erythema, edema, exudate or lesions. Pulmonary Respiratory effort: No increased work of breathing or signs of respiratory distress. Auscultation of lungs: Clear to auscultation. Cardiovascular Auscultation of heart: Normal rate and rhythm, normal S1 and S2, without murmurs. Lymphatic Palpation of lymph nodes in neck: No lymphadenopathy. Musculoskeletal Gait and station: Normal. Skin Skin and subcutaneous tissue: Abnormal. small scabbed area to left lower lip. Painless with no erythema or drainage... Assessment 1. Herpes simplex (054.9) (B00.9) Plan Herpes simplex 1. Acyclovir 400 MG Oral Tablet; TAKE 1 TABLET 3 TIMES DAILY Rx By: Bailey Pleitez; Dispense: 7 Days ; #:21 Tablet; Refill: 0; For: Herpes simplex; ASHA = N; Verified Transmission to [facility] # [id number]; Last Updated By: [employer]; 06/12/2017 9:45:56 AM Discussion/Summary Herpes simplex, oral- Ulcer to left lower lip unresolved with topicals. Will treat with oral antiviral. Reviewed stress management and encouraged good hand washing, and encouraged to avoid touching. FU PRN Signatures Electronically signed by : Bailey Pleitez NP; Jun 12 2017 9:52AM APPAREL DESIGNER (Author) documented in this encounter Plan of Treatment Not on file documented as of this encounter Visit Diagnoses Not on filedocumented in this encounter
--- OUTSIDE RECORDS SUMMARY | 2024-04-25 14:14 | XMS_ITS | Encounter Summary ---
Author Organization [facility] Address [address] [place] [address]. [place], [place] [address] [place] [address] Care Team Providers Care Utilization Supervisor Name Role Phone Unavailable Primary Care Provider Unavailabl e Encounter Details Date Type Department Care Team (Late st Contact Info) Description 09/04/2017 Abstract [facility] Medical Group Family & Internal Medicine [facility] [address] [place] [address] Asher Garrison MD [address] [address] Social History Tobacco Use Types Packs/Day Years Used Date Smoking Tobacco: Never Assessed Comments Unknown Sex and Gender Information Value Date Recorded Sex Assigned at Not on file Legal Sex Female 7:16 PM CDT Gender Identity Not on file Sexual Orientation Not on file documented as of this encounter Last Filed Vital Signs Vital Sign Reading Time Taken Comments Blood Pressure 118/80 09/04/2017 10:47 AM CDT Pulse 90 09/04/2017 10:47 AM CDT Temperature - - Respiratory Rate - - Oxygen Saturation - - Inhaled Oxygen Concentration - - Weight 87.1 kg (192 lb) 09/04/2017 10:47 AM CDT Height 167.6 cm (5' 6 ) 09/04/2017 10:47 AM CDT Body Mass Index 30.99 09/04/2017 10:47 AM CDT documented in this encounter Progress Notes * Asher Garrison MD - 09/04/2017 10:40 AM CDT Chief Complaint Pt presents today for R flank pain, pain worsens after eating. Onset Friday. History of Present Illness HISTORY of PRESENT ILLNESS: Milagros presents with a 2-week history of intermittent right flank pain, becoming constant the past 3days. She denies any known history of injury. The pain does not radiate. She has noted some worsening with eating as well as nausea. Occasionally, walking will worsen it, especially if she is walkingquickly. Pain is still in quality but occasionally burning as well. It does awaken her at nights. She denies any change in her stools. No fevers, chills or night sweats. She has been using 400 mg of ibuprofen twice daily for comfort. She denies any genitourinary symptoms. No personal or family history of kidney stones. Prior to becoming constant, her symptoms would last number of minutes prior toresolution. REVIEW of SYSTEMS: All pertinent positives and negatives as noted in HPI. All other systems reviewed and are negative. VITAL SIGNS: Afebrile, normotensive, SpO2 98%, BMI 31. PHYSICAL EXAMINATION: GENERAL: Well-developed and overweight, cooperative. Mildly ill-appearing, in mild distress. SKIN: Normal color, warm & dry. Without lesions. HEAD: Normocephalic, without trauma. EENT: Extraocular movements intact, pupils equal, round, and reactive to light, sclerae anicteric, conjunctivae non-injected and without discharge; tympanic membranes clear with normal light reflex, in normal position; nasopharynx clear; oropharynx clear, oral mucosa moist, without lesions; good dentition. NECK: Supple, without lymphadenopathy or masses. RESPIRATORY: No distress. Lungs clear to auscultation bilaterally; no wheezes, rales, or rhonchi. CARDIOVASCULAR: Heart tones regular in rhythm, without murmur; no gallops, clicks, or rubs. Peripheral pulses normal and symmetric to palpation. GASTROINTESTINAL: Abdomen soft, non-tender, non-distended, with normoactive bowel sounds; no organomegaly or masses. BACK: Normal curvature; no vertebral or paraspinal tenderness. There is mild tenderness in the right costovertebral area. EXTREMITIES: Warm, without clubbing, cyanosis, or edema. NEUROLOGIC: Alert & oriented x 3; cranial nerves II through XII grossly intact, without focal deficits; no sensory or motor deficits; gait normal. MUSCULOSKELETAL: Normal range of motion. Normal muscular tone and bulk. PSYCHOLOGIC: Affect appropriate. GENITOURINARY: Deferred. ADDITIONAL DATA: Urinalysis reveals 1+ leukocyte esterase, non hemolyzed trace blood (see Results/Data Section below). ASSESSMENT/PLAN: See enumerated lists in the appropriate sections below. MEDICAL DECISION MAKING: MODERATE COMPLEXITY. DISCUSSION: 1. ACUTE RIGHT FLANK PAIN WITH PYURIA. Symptoms suggest upper urinary tract infection, possible early pyelonephritis. Will treat with amoxicillin/clavulanate, ondansetron for nausea, phenazopyridine for comfort along with ibuprofen. Patient prescribed a single tablet of fluconazole for use after completing the antibiotic to vaginal yeast infection. Will adjust the recommendations based on urine culture if necessary. Patient should call if symptoms are not improving in 5 to 7 days or call with any concerns. Patient voices understanding and agreement plan. FOLLOWUP: As needed. HPI Free Text: This note was completed with dictation. There may be some blade grinder variances that are not appreciated or corrected in this note. Asher Garrison MD. Active Problems 1. Anxiety (300.00) (F41.9) 2. Benign essential HTN (401.1) (I10) 3. BMI 32.0-32.9,adult (V85.32) (Z68.32) 4. Constipation (564.00) (K59.00) 5. Depression (311) (F32.9) 6. Malignant neoplasm of breast in female, estrogen receptor positive, unspecified laterality, unspecified site of breast (174.9,V86.0) (C50.919,Z17.0) 7. Wears glasses (V49.89) (Z97.3) Past Medical History 1. History of Cyst of joint of hand, right (719.84) (M25.841) 2. History of Flank pain (789.09) (R10.9) 3. History of Gallstones (574.20) (K80.20) 4. History of Hand pain (729.5) (M79.643) 5. History of Hemangioma of skin (228.01) (D18.01) 6. History of herpes simplex infection (V12.09) (Z86.19) 7. History of herpes zoster (V12.09) (Z86.19) 8. History of Lung nodule seen on imaging study (793.11) (R91.1) Surgical History 1. History of Breast Surgery [...] No illicit drug use ?? 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 Social alcohol use (Z78.9) Immunizations Tdap --- Series1: 14-Nov-2016 Current Meds 1. ClonazePAM 0.5 MG Oral Tablet; TAKE ONE TABLET BY MOUTH AT BEDTIME; Therapy: 08Oct2016 to (Evaluate:31Aug2017); Last Rx:01Aug2017 Ordered Rx By: Ganga Galaviz; Dispense: 30 Days ; #:30 Tablet; Refill: 0; For: Anxiety; ASHA = N; Call Rx 2. DocQLace 100 MG Oral Capsule; TAKE 1 CAPSULE BY MOUTH TWICE DAILY; Therapy: [id number] to Recorded Dispense: 0 Days ; #: Sufficient Capsule; Refill: 0; For: Constipation; ASHA = N; Record; Last Updated By: Joie Sanchez; 09/04/2017 10:49:30 AM 3. Tamoxifen Citrate 20 MG Oral Tablet; TAKE 1 TABLET DAILY; Therapy: [id number] to Recorded Dispense: 0 Days ; #: Sufficient Tablet; Refill: 0; For: Abnormal mammogram; ASHA = N; Record; Last Updated By: Mikala Traylor; 11/17/2015 8:41:46 AM 4. Venlafaxine HCl ER 150 MG Oral Capsule Extended Release 24 Hour; TAKE 1 CAPSULE BY MOUTH EVERY DAY WITH FOOD; Therapy: 27Feb2016 to (Evaluate:[id number]) Requested for: 30Jun2017; Last Rx:[id number] Ordered Rx By: Bailey Pleitez; Dispense: 30 Days ; #:30 Capsule; Refill: 5; For: Anxiety; ASHA = N; Verified Transmission to [facility]; Last Updated By: [employer]; 06/30/2017 11:29:12 AM Allergies 1. No Known Drug Allergies Recorded By: Mikala Traylor; 07/13/2015 7:08:04 AM Vitals Recorded: 04Sep2017 10:47AM Temperature 98 F Heart Rate 90 Respiration 18 Systolic 118 Diastolic 80 O2 Saturation 98 Height 5 ft 6 in Weight 192 lb BMI Calculated 30.99 BSA Calculated 1.97 Results/Data *Urine dip auto In Office 04Sep2017 11:06AM Asher Garrison Test Name Result Flag Reference Color Yellow Clarity Slightly cloudy Glucose Negative Bilirubin Negative Ketones Negative Specific [place] 1.020 Blood Non Hemolyzed-Trace A pH 6.0 5.0 - 7.0 Protein Negative Urobilinogen 0.2 E.U./dL Nitrites Negative Leukocytes Small-1+ A Assessment 1. Acute right flank pain (789.09,338.19) (R10.9) 2. Upper urinary tract infection (599.0) (N39.0) Plan Right flank pain 1. *Urine dip auto In Office; Status:Resulted - Requires Verification; Done: 04Sep2017 11:06AM Performed:In Office; Due:04Oct2017; Last Updated By:Joie Sanchez; 09/04/2017 11:07:27 AM;Ordered; For:Right flank pain; Ordered By:Asher Garrison; 2. Urine Culture; Status:In Progress - Specimen/Data Collected; Done: 04Sep2017 Perform:[facility]; Due:04Oct2017; Last Updated By:Joie Sanchez; 09/04/2017 11:05:52 AM;Ordered; For:Right flank pain; Ordered By:Asher Garrison; Source: : Clean Catch Upper urinary tract infection 3. Amoxicillin-Pot Clavulanate 875-125 MG Oral Tablet; TAKE 1 TABLET EVERY 12 HOURS UNTIL GONE Rx By: Asher Garrison; Dispense: 7 Days ; #:14 Tablet; Refill: 0; For: Upper urinary tract infection; ASHA = N; Sent To: [facility] # [id number] 4. Follow-up PRN Outpatient Follow-up Status: Complete Done: 04Sep2017 11:26AM Ordered; For: Upper urinary tract infection; Ordered By: Asher Garrison Performed: Due: 18Sep2017 5. Fluconazole 150 MG Oral Tablet; TAKE 1 TABLET ONE TIME ONLY Rx By: Asher Garrison; Dispense: 1 Days ; #:1 Tablet; Refill: 0; For: Upper urinary tract infection; ASHA = N; Sent To: [facility] # [id number] 6. Ondansetron 4 MG Oral Tablet Disintegrating; ONE TAB SL TID PRN NAUSEA Rx By: Asher Garrison; Dispense: 0 Days ; #:10 Tablet; Refill: 0; For: Upper urinary tract infection; ASHA = N; Sent To: [facility] # [id number] 7. Phenazopyridine HCl - 200 MG Oral Tablet; TAKE 1 TABLET 3 TIMES DAILY NEEDED FOR PAIN Rx By: Asher Garrison; Dispense: 2 Days ; #:6 Tablet; Refill: 0; For: Upper urinary tract infection; ASHA = N; Sent To: [facility] # [id number] MILAGROS THANK YOU FOR YOUR VISIT USE MEDICATIONS DIRECTED. PLEASE CALL IF NOT IMPROVING IN 5-7 DAYS. CALL WITH ANY CONCERNS. Signatures Electronically signed by : Asher Garrison M.D.; Oct 21 2017 8:12PM TELEVISION PRESENTER (Author) documented in this encounter Plan of Treatment Not on file documented as of this encounter Procedures Procedure Name Priority Date/Time Associated Diagnosis Comments URINALYSIS AUTO DIP Routine 09/04/2017 1 1:06 AM CDT URINE BACTERIA CULTURE Routine 09/04/2017 11:05 AM CDT documented in this encounter Results * (ABNORMAL) URINALYSIS AUTO DIP (09/04/2017 11:06 AM CDT) COLOR (U) Yellow [facility] T O EPIC CONVERSION TRANSPARENCY Slightly cloudy [facility] TO EPIC CONVERSION GLUCOSE Negative [facility] EPIC CONVERSION BILIRUBIN (U) Negative [facility] UP TO EPIC CONVERSION KETONE (U) Negative [facility] TO EPIC CONVERSION SPECIFIC GRAVITY (U) 1.020 [facility] TO EPIC CONVERSION BLOOD (U) Non Hemolyzed-Tr alonso(A) [facility] TO EPIC CONVERSION PH (U) 6.0 5.0 - 7.0 [facility] T O EPIC CONVERSION PROTEIN (ELP) (U) Negative [facility] TO EPIC CONVERSION UROBILINOGEN 0.2 E.U./dL [facility] OUP TO EPIC CONVERSION NITRITES Negative [facility] T O EPIC CONVERSION LEUKOCYTES (U) Small-1+(A) [facility] TO EPIC CONVERSION 09/04/2017 11:0 6 AM CDT 09/04/2017 11:06 AM CDT Narrative [facility] TO EPIC CONVERSION - 09/04/2017 11:06 AM CDT Result Communication: No patient communication needed at this time Asher Garrison MD URINE ORDERABLES Final Re sult Performing Organization Address [facility]/State/ZIP Co de Phone Number [facility] TO EPIC CONVERSION * CULTURE URINE (09/04/2017 11:05 AM CDT) CULTURE URINE SPECIMEN DESCRIPTION ? - URINE CLEAN CATCH SPECIAL REQUESTS ? - NO SPECIAL REQUEST CULTURE ?- NO GROWTH 2 DAYS REPORT STATUS ?- FINAL 09/07/2017 [facility] TO EPIC CONVERSION 09/04/2017 11:0 5 AM CDT 09/04/2017 11:05 AM CDT Narrative [facility] TO EPIC CONVERSION - 09/07/2017 8:44 AM CDT Result Communication: No patient communication needed at this time Asher Garrison MD MICROBIOLOGY - GENERAL OR DERABLES Final Result [facility] TO EPIC CONVERSION documented in this encounter Visit Diagnoses Not on filedocumented in this encounter
--- OUTSIDE RECORDS SUMMARY | 2024-04-25 14:14 | XMS_ITS | Encounter Summary ---
Author Organization [facility] Address [address] [place] [address]. [place] [address] Care Team Providers Care Network Analyst Name Role Phone Unavailable Primary Care Provider Unavailabl e Encounter Details Date Type Department Care Team (Latest Contact Info) Description 04/03/[address] [facility] Medical Group Bailey Pleitez APNP Social History Tobacco Use [...]
--- OUTSIDE RECORDS SUMMARY | 2024-04-25 14:14 | XMS_ITS | Encounter Summary ---
Author Organization [facility] Address [address] [place] [address]. [place] [address] Care Team Providers Care Shear Operator Automatic Name Role Phone Unavailable Primary Care Provider Unavailabl e Encounter Details Date Type Department Care Team (Latest Contact Info) Description 03/11/2017 Abstract [facility] Medical Group Bailey Pleitez APNP Social History [...]
--- OUTSIDE RECORDS SUMMARY | 2024-04-25 14:14 | XMS_ITS | Encounter Summary ---
Author Organization [facility] Address [address] [place] [address]. [place], [place] [id number] [place] [address] Care Team Providers Care Blade Bender Furnace Tender Name Role Phone Unavailable Primary Care Provider Unavailabl e Encounter Details Date Type Department Care Team (Late st Contact Info) Description 06/26/2017 Abstract [facility] Medical Group Family & Internal Medicine [address] [address] Bailey Pleitez APNP Social History [...] Sign Reading Time Taken Comments Blood Pressure 112/70 06/26/2017 3:34 PM DIRECTOR CHECK Pulse 80 06/26/2017 3:34 PM DIRECTOR CHECK Temperature - - Respiratory Rate - - Oxygen Saturation - - Inhaled Oxygen Concentration - - Weight 87.1 kg (192 lb) 06/26/2017 3:34 PM DIRECTOR CHECK Height 167.6 cm (5' 6 ) 06/26/2017 3:34 PM DIRECTOR CHECK Body Mass Index 30.99 06/26/2017 3:34 PM DIRECTOR CHECK documented in this encounter Progress Notes * WHITNEY Daley - 06/26/2017 3:40 PM CST Reason For Visit Reason For Visit: Acute Visit Chief Complaint pt c/o no BM since last Friday, pt took whole bottle of stool softener. pt c/o nausea. Miralax yesterday morning and this morning. suppositories yesterday. pt c/o body and back hurting. History of Present Illness Constipation (Brief): The patient is being seen for an initial evaluation of an existing diagnosis of constipation. Symptoms: abdominal cramping The patient presents with complaints of gradual onset of constant episodes of moderate infrequent stools. Episodes started about 1 week ago. She is currently experiencing infrequent stools Symptoms are unchanged (Pt reports no BM for 1 week. She has been taking Dulcolax orally and suppositories. She has taken one dose of Miralax).. The patient is currently experiencing symptoms. Associated symptoms: nausea. Current treatment includes stool softeners, stimulant laxatives and osmotic laxatives. By report, there is fair compliance with treatment, good tolerance of treatment and poor symptom control. Review of Systems See HPI for pertinent positives. Constitutional: feeling poorly. ENT: normal. Cardiovascular: Normal. Respiratory: Normal. Gastrointestinal: constipation. Genitourinary: Normal. Integumentary: Normal. Musculoskeletal: Normal. Neurological: [...] skin (228.01) (D18.01) 9. History of herpes simplex infection (V12.09) (Z86.19) 10. History of herpes zoster (V12.09) (Z86.19) 11. History of Laceration of left lower leg with complication (891.1) (S81.812A) 12. History of Lipid screening (V77.91) (Z13.220) 13. History of Lung nodule seen on imaging study (793.11) (R91.1) 14. History of Need for Tdap vaccination (V06.1) (Z23) 15. History of Other superficial bite of lower leg (916.8) (S80.439A) 16. History of Screening for hypothyroidism (V77.0) (Z13.29) 17. History of Skin lesion (709.9) (L98.9) Surgical [...] No illicit drug use ?? 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 Social alcohol use (Z78.9) Immunizations Tdap --- Series1: 14-Nov-2016 Current Meds 1. ClonazePAM 0.5 MG Oral Tablet; TAKE ONE TABLET BY MOUTH AT BEDTIME; Therapy: 08Oct2016 to (Evaluate:08Jun2017); Last Rx:09May2017 Ordered Rx By: Bailey Pleitez; Dispense: 30 Days ; #:30 Tablet; Refill: 0; For: Anxiety; ASHA = N; Call Rx 2. MiraLax Oral Packet (Polyethylene Glycol 3350); MIX 1 PACKET IN 8 OUNCES OF LIQUID AND DRINK ONCE DAILY; Therapy: 26Jun2017 to (Evaluate:25Aug2017) Recorded Rx By: Bailey Pleitez; Dispense: 30 Days ; #:30 Packet; Refill: 1; For: Constipation; ASHA = N; Record; Msg to Pharmacy: Take 2 time a day until BM then daily 3. Tamoxifen Citrate 20 MG Oral Tablet; TAKE 1 TABLET DAILY; Therapy: [id number] to Recorded Dispense: 0 Days ; #: Sufficient Tablet; Refill: 0; For: PMH: Abnormal mammogram; ASHA = N; Record; Last Updated By: Mikala Traylor; 11/17/2015 8:41:46 AM 4. Venlafaxine HCl ER 150 MG Oral Capsule Extended Release 24 Hour; TAKE 1 CAPSULE BY MOUTH EVERY DAY WITH FOOD; Therapy: 27Feb2016 to (Evaluate:[id number]) Requested for: 21Mar2017; Last Rx:21Mar2017 Ordered Rx By: Bailey Pleitez; Dispense: 30 Days ; #:30 Capsule; Refill: 2; For: Anxiety; ASHA = N; Verified Transmission to [facility]; Last Updated By: [facility]; 03/21/2017 2:18:13 PM Allergies 1. No Known Drug Allergies Recorded By: Mikala Traylor; 07/13/2015 7:08:04 AM Vitals Recorded: [id number] 03:34PM Temperature 97.9 F Heart Rate 80 Respiration 16 Systolic 112 Diastolic 70 O2 Saturation 98 Height 5 ft 6 in Weight 192 lb BMI Calculated 30.99 BSA Calculated 1.97 Physical Exam Constitutional General appearance: No acute distress, well appearing and well nourished. Pulmonary Respiratory effort: No increased work of breathing or signs of respiratory distress. Auscultation of lungs: Clear to auscultation. Cardiovascular Auscultation of heart: Normal rate and rhythm, normal S1 and S2, without murmurs. Abdomen Abdomen: Non-tender, no masses. Musculoskeletal Gait and station: Normal. Psychiatric Orientation to person, place, and time: Normal. Mood and affect: Normal. Assessment 1. Constipation (564.00) (K59.00) Discussion/Summary Constipation- Discussed dietary changes, increased water intake and BID dosing or Miralax until BM the reduce to daily dosing. FU PRN Signatures Electronically signed by : Bailey Pleitez NP; Jun 26 2017 4:17PM DIRECTOR CHECK (Author) * Mandi Clark Md, MD - 06/26/2017 8:11 AM CST Message Message: Patient called, states having trouble with her bowels. Can not remember last time she had a good bowel movement. Has taken stool softeners, MiraLAX yesterday and today. Also did a suppository with very little results. c/o some cramping. Coat Cutter asked if she has done any Magnesium Citrate and she said no. Coat Cutter suggested making an appointment, appointment made with Bailey Pleitez. Coat Cutter also told her if she would have a good bowel movement, she could call and cancel the appointment. Patient voiced understanding. Signatures Electronically signed by : Deisi Calvin L.P.N.; Jun 26 2017 8:22AM DIRECTOR CHECK (Author) documented in this encounter Plan of Treatment Not on file documented as of this encounter Visit Diagnoses Not on filedocumented in this encounter
--- OUTSIDE RECORDS SUMMARY | 2024-04-25 14:14 | XMS_ITS | Encounter Summary ---
Author Organization [facility] Address [address] [place] [address]. [place] [address] Care Team Providers Care Paper Machine Supervisor Name Role Phone Unavailable Primary Care Provider Unavailabl e Encounter Details Date Type Department Care Team (Latest Contact Info) Description 07/01/2017 Abstract [facility] Medical Group Social History Tobacco Use Types Packs/Day Years Used Date Smoking Tobacco: Never Assessed Comments Unknown Sex and Gender Information Value Date Recorded Sex Assigned at Not on file Legal Sex Female 7:16 PM CDT Gender Identity Not on file Sexual Orientation Not on file documented as of this encounter Progress Notes * Generic Conversion MD Domenic - 07/01/2017 11:46 AM CST Message Recorded as Task Date: 06/30/2017 02:55 PM, Created By: Arabella Hull Task Name: Renew Medication Assigned To: [facility] Nurse Team Regarding Patient: Milagros Torres, Status: In Progress Comment: Arabella Hull - 30 Jun 2017 2:55 PM TASK CREATED Caller: Liliane Yoder; [phone] Liliane called to request pt's Clonazepam. Mikala Traylor - 01 Jul 2017 8:58 AM TASK EDITED per Bailey pandya to call in #[phone]. Shireen Farnsworth - 01 Jul 2017 11:46 AM TASK IN PROGRESS Shireen Farnsworth 01 Jul 2017 11:49 AM TASK EDITED Called script into [facility] per call in rx task. Plan 1. ClonazePAM 0.5 MG Oral Tablet; TAKE ONE TABLET BY MOUTH AT BEDTIME Rx By: Bailey Pleitez; Dispense: 30 Days ; #:30 Tablet; Refill: 0; For: Anxiety; ASHA = N; Call Rx;Last Updated By: Shireen Farnsworth; 07/01/2017 11:47:24 AM Ok per Bailey, called into Pharmacy. Signatures Electronically signed by : Shireen Farnsworth, ; Jul 01 2017 11:49AM WASHERY BOSS (Author) documented in this encounter Plan of Treatment Not on file documented as of this encounter Visit Diagnoses Not on filedocumented in this encounter
--- OUTSIDE RECORDS SUMMARY | 2024-04-25 14:14 | XMS_ITS | Encounter Summary ---
Author Organization [facility] Address [address] [place] [address]. [place] [address] Care Team Providers Care Dealer Relationship Manager Name Role Phone Unavailable Primary Care Provider Unavailabl e Encounter Details Date Type Department Care Team (Latest Contact Info) Description 02/26/2017 Abstract [facility] Medical Group Social History Tobacco Use Types Packs/Day Years Used Date Smoking Tobacco: Never Assessed Comments Unknown Sex and Gender Information Value Date Recorded Sex Assigned at Not on file Legal Sex Female 7:16 PM CDT Gender Identity Not on file Sexual Orientation Not on file documented as of this encounter Progress Notes * WHITNEY Daley - 02/26/2017 2:36 PM CDT Plan 1. From ClonazePAM 1 MG Oral Tablet TAKE 1 TABLET BY MOUTH EVERY NIGHT AT BEDTIME To ClonazePAM 0.5 MG Oral Tablet TAKE 1 TABLET AT BEDTIME Rx By: Bailey Pleitez; Dispense: 30 Days ; #:30 Tablet; Refill: 0; For: Anxiety; ASHA = N; Call Rx;Last Updated By: Marissa Lara; 02/26/2017 2:37:47 PM Original script shredded, called in to [facility] script given at office visit today lvam at [facility] with script info, script shredded. lvm at [facility] [phone] lvm at [facility] lvm at [facility] [phone] lvm at [facility] in [place] with script info. rx called out to [facility] script given to pt at office visit script given to pt at office visit Signatures Electronically signed by : Marissa Lara MA; Feb 26 2017 2:38PM BAKERY TECHNICIAN (Author) documented in this encounter Plan of Treatment Not on file documented as of this encounter Visit Diagnoses Not on filedocumented in this encounter
--- OUTSIDE RECORDS SUMMARY | 2024-04-25 14:14 | XMS_ITS | Encounter Summary ---
Author Organization [facility] Address [address] [place] [address]. [place], [place] [address] [place] [address] Care Team Providers Care Cellar Worker Name Role Phone Unavailable Primary Care Provider Unavailabl e Encounter Details Date Type Department Care Team (Late st Contact Info) Description 01/20/2017 Abstract [facility] Medical [facility] General Surgery [facility] [address] [facility], [address] [place] [address] [place] [address] [facility] [address] [place] [address] Social History Tobacco Use Types Packs/Day Years Used Date Smoking Tobacco: Never Assessed Comments Unknown Sex and Gender Information Value Date Recorded Sex Assigned at Not on file Legal Sex Female 7:16 PM CDT Gender Identity Not on file Sexual Orientation Not on file documented as of this encounter Last Filed Vital Signs Vital Sign Reading Time Taken Comments Blood Pressure 160/90 01/20/2017 2:51 PM CDT Pulse 66 01/20/2017 2:51 PM CDT Temperature - - Respiratory Rate - - Oxygen Saturation - - Inhaled Oxygen Concentration - - Weight 88.5 kg (195 lb) 01/20/2017 2:51 PM CDT Height 167.6 cm (5' 6 ) 01/20/2017 2:51 PM CDT Body Mass Index 31.47 01/20/2017 2:51 PM CDT documented in this encounter Progress Notes * Harry Hair MD - 01/20/2017 1:45 PM CDT Reason For Visit Post-Op Visit Chief Complaint HERE FOR SUTURE REMOVAL RIGHT THUMB NO COMPLAINTS History of Present Illness HPI Free Text: s/p excision painful hemangioma right hand Doing well Active Problems 1. Anxiety (300.00) (F41.9) 2. Benign essential HTN (401.1) (I10) 3. BMI 32.0-32.9,adult (V85.32) (Z68.32) 4. Cyst of joint of hand, right (719.84) (M25.841) 5. Depression (311) (F32.9) 6. Hand pain (729.5) (M79.643) 7. Hemangioma of skin (228.01) (D18.01) 8. Skin lesion (709.9) (L98.9) 9. Wears glasses (V49.89) (Z97.3) Past Medical History 1. History of Abnormal mammogram (793.80) (R92.8) 2. History of Elevated blood pressure 3. History of Flank pain (789.09) (R10.9) 4. History of Gallstones (574.20) (K80.20) 5. History of herpes zoster (V12.09) (Z86.19) 6. History of Laceration of left lower leg with complication (891.1) (S81.812A) 7. History of Lipid screening (V77.91) (Z13.220) 8. History of Lung nodule seen on imaging study (793.11) (R91.1) 9. History of Need for Tdap vaccination (V06.1) (Z23) 10. History of Other superficial bite of lower leg (916.8) (S80.879A) 11. History of Screening for hypothyroidism (V77.0) (Z13.29) Surgical History 1. History of Breast Surgery Lumpectomy ?? left breast September 04, 2015 2. History of Section ?? 1990 3. History of Dilation And Curettage ?? Dr Jean Marie Reynoso Family History Mother 1. Family history of [...] No illicit drug use ?? 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 Social alcohol use (Z78.9) Immunizations Tdap --- Series1: 81Pyh5459 Current Meds 1. ClonazePAM 1 MG Oral Tablet; TAKE 1 TABLET BY MOUTH EVERY NIGHT AT BEDTIME; Therapy: 58Joi1724 to (Evaluate:19Feb2017) Requested for: 20Jan2017; Last Rx:20Jan2017 Ordered Rx By: Bailey Pleitez; Dispense: 30 Days ; #:30 TAB; Refill: 0; For: Anxiety; ASHA = N; Print Rx; Last Updated By: Cheryl Philippe; 01/20/2017 11:27:58 AM 2. Hydrocodone-Acetaminophen 5-325 MG Oral Tablet; Therapy: 12Kim2882 to Recorded Dispense: 5 Days ; #:20 TABS; Refill: 0; ASHA = N; Record; Last Updated By: Sheree Hung; 01/20/2017 2:51:48 PM 3. Ibuprofen 600 MG Oral Tablet; TK 1 T PO Q 6 H WF PRF CRAMPING; Therapy: 30Aug2016 to Recorded Rx By: KASI BUTLER; Dispense: 3 Days ; #:10 TABS; Refill: 0; ASHA = N; Record; Last Updated By: Sheree Hung; 01/20/2017 2:51:48 PM 4. Tamoxifen Citrate 20 MG Oral Tablet; TAKE 1 TABLET DAILY; Therapy: 40Fxz8174 to Recorded Dispense: 0 Days ; #: Sufficient Tablet; Refill: 0; For: PMH: Abnormal mammogram; ASHA = N; Record; Last Updated By: Mikala Traylor; 11/17/2015 8:41:46 AM 5. Venlafaxine HCl ER 150 MG Oral Capsule Extended Release 24 Hour; TAKE 1 CAPSULE BY MOUTH EVERY DAY WITH FOOD; Therapy: 27Feb2016 to (Evaluate:53Dvd6073) Requested for: 19Dec2016; Last Rx:19Dec2016 Ordered Rx By: Bailey Pleitez; Dispense: 30 Days ; #:30 Capsule; Refill: 2; For: Anxiety; ASHA = N; Verified Transmission to [facility] 78096; Last Updated By: DenaeMashup Arts; 12/19/2016 2:03:06 PM 6. Venlafaxine HCl ER 150 MG Oral Capsule Extended Release 24 Hour; TAKE ONE CAPSULE BY MOUTH EVERY DAY; Therapy: 08Oct2016 to (Evaluate:29Puq5736) Recorded Dispense: 90 Days ; #:90 Capsule Extended Release 24 Hour; Refill: 1; For: Depression; ASHA = N; Record; Last Updated By: Mikala Traylor; 10/08/2016 7:42:55 AM Allergies 1. No Known Drug Allergies Recorded By: Mikala Traylor; 07/13/2015 7:08:04 AM Vitals Recorded: 20Jan2017 02:51PM Temperature 98 F Heart Rate 66 Respiration 18 Systolic 160 Diastolic 90 Height 5 ft 6 in Weight 195 lb BMI Calculated 31.47 BSA Calculated 1.98 Physical Exam Skin - Assessment of incision: Clean, dry, and intact. Discussion/Summary Sutures removed and incision steri stripped Doing well , no complaints. F/u prn. Signatures Electronically signed by : aHrry Hair M.D.; Jan 20 2017 2:56PM PORCELAIN MIXER (Author) documented in this encounter Plan of Treatment Not on file documented as of this encounter Visit Diagnoses Not on filedocumented in this encounter
--- OUTSIDE RECORDS SUMMARY | 2024-04-25 14:14 | XMS_ITS | Encounter Summary ---
Author Organization [facility] Address [address] [place] [address]. [place], [place] [address] [place] [address] Care Team Providers Care Transformer Stock Clerk Name Role Phone Unavailable Primary Care Provider Unavailabl e Encounter Details Date Type Department Care Team (Late st Contact Info) Description 05/22/2017 Abstract [facility] Medical Group Family & Internal Medicine [address] [address] Bailey Pleitez APNP Social History [...] Sign Reading Time Taken Comments Blood Pressure 124/82 05/22/2017 10:19 AM SWEEPER DRIVER Pulse 77 05/22/2017 10:19 AM SWEEPER DRIVER Temperature - - Respiratory Rate - - Oxygen Saturation - - Inhaled Oxygen Concentration - - Weight 86.6 kg (191 lb) 05/22/2017 10:19 AM SWEEPER DRIVER Height 167.6 cm (5' 6 ) 05/22/2017 10:19 AM SWEEPER DRIVER Body Mass Index 30.83 05/22/2017 10:19 AM SWEEPER DRIVER documented in this encounter Progress Notes * WHITNEY Daley - 05/22/2017 10:20 AM CST Reason For Visit Reason For Visit: Acute Visit Chief Complaint pt c/o high anxiety recently. interfering with daily life, pt feels like everything is coming down around her and overwhelming her. pt c/o no one understands her which makes it worse. History of Present Illness Anxiety Disorder (Follow-Up): The patient is being seen for follow-up of anxiety. The patient reports doing poorly. Comorbid Illnesses: depression. Pt very tearful stating she feels she is being pulled in a million directions and no one understands her. She is having issues with sister, boyfriend and roommate. She was going to Counseling but hasn?t been in a while. She is currently on antidepressants and antianxiety at . . Interval symptoms: worsened anxiety, worsened difficulty concentrating, worsened sleep disruption and worsened depression. Associated symptoms: no suicidal ideation. Medications: the patient is adherent to her medication regimen, but she denies medication side effects. Disease management: the patient is not doing well with her goals. Review of Systems See HPI for pertinent positives. Constitutional: feeling poorly. ENT: normal. Cardiovascular: Normal. Respiratory: Normal. Gastrointestinal: Normal. Genitourinary: Normal. Integumentary: Normal. Musculoskeletal: Normal. Neurological: Normal. Psychiatric: anxiety. Active Problems 1. Anxiety (300.00) (F41.9) 2. [...] Other superficial bite of lower leg (916.8) (S80.179A) 15. History of Screening for hypothyroidism (V77.0) [...] No illicit drug use ?? 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 Social alcohol use (Z78.9) Immunizations Tdap --- Series1: 14-Nov-2016 Current Meds 1. ClonazePAM 0.5 MG Oral Tablet; TAKE ONE TABLET BY MOUTH AT BEDTIME; Therapy: 08Oct2016 to (Evaluate:26Lpd5432); Last Rx:09May2017 Ordered Rx By: Bailey Pleitez; [...] EVERY DAY WITH FOOD; Therapy: 27Feb2016 to (Evaluate:46Uyt1520) Requested for: 21Mar2017; Last Rx:21Mar2017 Ordered Rx By: Bailey Pleitez; Dispense: 30 Days ; #:30 Capsule; Refill: 2; For: Anxiety; ASHA = N; Verified Transmission to [facility]; Last Updated By: [facility]; 03/21/2017 2:18:13 PM Allergies 1. No Known Drug Allergies Recorded By: Mikala Traylor; 07/13/2015 7:08:04 AM Vitals Recorded: 22May2017 10:19AM Temperature 98.1 F Heart Rate 77 Respiration 16 Systolic 124 Diastolic 82 O2 Saturation 98 Height 5 ft 6 in Weight 191 lb BMI Calculated 30.83 BSA Calculated 1.96 Physical Exam Constitutional General appearance: Abnormal. uncomfortable and appears tired. Pulmonary Respiratory effort: No increased work of breathing or signs of respiratory distress. Auscultation of lungs: Clear to auscultation. Cardiovascular Auscultation of heart: Normal rate and rhythm, normal S1 and S2, without murmurs. Musculoskeletal Gait and station: Normal. Psychiatric Orientation to person, place, and time: Normal. Mood and affect: Abnormal. Mood and Affect: inappropriate mood, anxious, despairing, excessive crying and tearful. Assessment 1. Anxiety (300.00) (F41.9) 2. Depression (311) (F32.9) Discussion/Summary Anxiety- Discussed need to continue current medications and get back to counseling sessions. Her anxiety is based on situational work, family and job issues. No changes in medication recommended unless seen by Psychiatry. FU PRN Signatures Electronically signed by : Bailey Pleitez NP; May 22 2017 11:51AM SWEEPER DRIVER (Author) documented in this encounter Plan of Treatment Not on file documented as of this encounter Visit Diagnoses Not on filedocumented in this encounter
--- OUTSIDE RECORDS SUMMARY | 2024-04-25 14:15 | XMS_ITS | Encounter Summary ---
Author Organization [facility] Address [address] [place] [address]. [place], [place] [address] [place] [address] Care Team Providers Care Glue Bone Crusher Name Role Phone Unavailable Primary Care Provider Unavailabl e Encounter Details Date Type Department Care Team (Late st Contact Info) Description 12/12/2016 Abstract [facility] Medical Group General Surgery [facility] [address] [facility], [address] [place] [address] [place] [address] [facility] [address] [place] [address] Social History Tobacco Use Types Packs/Day Years Used Date Smoking Tobacco: Never Assessed Comments Unknown Sex and Gender Information Value Date Recorded Sex Assigned at Not on file Legal Sex Female 7:16 PM CDT Gender Identity Not on file Sexual Orientation Not on file documented as of this encounter Last Filed Vital Signs Vital Sign Reading Time Taken Comments Blood Pressure 140/80 12/12/2016 9:19 AM CDT Pulse 64 12/12/2016 9:19 AM CDT Temperature - - Respiratory Rate - - Oxygen Saturation - - Inhaled Oxygen Concentration - - Weight 88.5 kg (195 lb) 12/12/2016 9:19 AM CDT Height 167.6 cm (5' 6 ) 12/12/2016 9:19 AM CDT Body Mass Index 31.47 12/12/2016 9:19 AM CDT documented in this encounter Progress Notes * Harry Hair MD - 12/12/2016 9:05 AM CDT Reason For Visit Consultation Visit Chief Complaint PCP BAILEY VERDE C/O RIGHT HAND CYST HERE TO DISCUSS REMOVAL History of Present Illness HPI Free Text: 4 month hx of painful cyst base right thumb , increasing in size, denies trauma to area Active Problems 1. Anxiety (300.00) (F41.9) 2. Benign essential HTN (401.1) (I10) 3. BMI 32.0-32.9,adult (V85.32) (Z68.32) 4. Cyst of joint of hand, right (719.84) (M25.841) 5. Depression (311) (F32.9) 6. Hand pain (729.5) (M79.643) 7. Wears glasses (V49.89) (Z97.3) Past Medical [...] No illicit drug use ?? 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 Social alcohol use (Z78.9) Immunizations Tdap --- Series1: 95Wns5065 Current Meds 1. ClonazePAM 1 MG Oral Tablet; TAKE 1 TABLET Bedtime; Therapy: 76Ebh5509 to (Evaluate:90Pke3455) Requested for: 08Oct2016; Last Rx:08Oct2016 Ordered Rx By: Bailey Verde; Dispense: 30 Days ; #:30 Tablet; Refill: 2; For: Anxiety; ASHA = N; Print Rx 2. Tamoxifen Citrate 20 MG Oral Tablet; TAKE 1 TABLET DAILY; Therapy: 17Nov2015 to Recorded Dispense: 0 Days ; #: Sufficient Tablet; Refill: 0; For: PMH: Abnormal mammogram; ASHA = N; Record; Last Updated By: Mikala Traylor; 11/17/2015 8:41:46 AM 3. Venlafaxine HCl ER 150 MG Oral Capsule Extended Release 24 Hour; TAKE ONE CAPSULE BY MOUTH EVERY DAY; Therapy: 08Oct2016 to (Evaluate:60Cvk2668) Recorded Dispense: 90 Days ; #:90 Capsule Extended Release 24 Hour; Refill: 1; For: Depression; ASHA = N; Record; Last Updated By: Mikala Traylor; 10/08/2016 7:42:55 AM Allergies 1. No Known Drug Allergies Recorded By: Mikala Traylor; 07/13/2015 7:08:04 AM Vitals Recorded: 12Dec2016 09:19AM Temperature 98.4 F Heart Rate 64 Systolic 140 Diastolic 80 Height 5 ft 6 in Weight 195 lb BMI Calculated 31.47 BSA Calculated 1.98 Physical Exam Skin - Skin and subcutaneous tissue: Abnormal. 1 cm painful cyst plamer aspect right thumb. Plan BMI 32.0-32.9,adult, Cyst of joint of hand, right 1. Pre-printed Instructions given to patient; Status:Complete; Done: 12Dec2016 Last Updated By:Sheree Hung; 12/12/2016 9:25:04 AM;Ordered; For:BMI 32.0- 32.9,adult, Cyst of joint of hand, right; Ordered By:Harry Hair; The planned procedure/s, the expected benefits,the associated risks,possible complications, and alternatives to the procedure/s have been discussed in detail with the patient or family. They state that they understand, have no further questions and agree to proceed with the procedure/s as outlined. Procedures/Surgery: Excision biopsy cyst right thumb Discussion/Summary Schedule in the office under local anesthesia pending precert. Signatures Electronically signed by : Harry Hair M.D.; Dec 13 2016 1:17PM DIRECTOR OF MARKETING AND PROMOTIONS (Author) documented in this encounter Plan of Treatment Not on file documented as of this encounter Visit Diagnoses Not on filedocumented in this encounter
--- OUTSIDE RECORDS SUMMARY | 2024-04-25 14:15 | XMS_ITS | Encounter Summary ---
Author Organization [facility] Address [address] [place] [address]. [place], [place] [address] [place] [address] Care Team Providers Care Peritoneal Dialysis Registered Nurse Name Role Phone Unavailable Primary Care Provider Unavailabl e Encounter Details Date Type Department Care Team (Late st Contact Info) Description 12/10/2016 Abstract [facility] Medical Group Family & Internal Medicine [address] [address] Bailey Verde APNP Social History Tobacco Use Types Packs/Day Years Used Date Smoking Tobacco: Never Assessed Comments Unknown Sex and Gender Information Value Date Recorded Sex Assigned at Not on file Legal Sex Female 7:16 PM CDT Gender Identity Not on file Sexual Orientation Not on file documented as of this encounter Last Filed Vital Signs Vital Sign Reading Time Taken Comments Blood Pressure 116/74 12/10/2016 10:33 AM CDT Pulse 65 12/10/2016 10:33 AM CDT Temperature - - Respiratory Rate - - Oxygen Saturation - - Inhaled Oxygen Concentration - - Weight 88.7 kg (195 lb 9.6 oz) 12/10/2016 10:33 AM CDT Height 167.6 cm (5' 6 ) 12/10/2016 10:33 AM CDT Body Mass Index 31.57 12/10/2016 10:33 AM CDT documented in this encounter Progress Notes * WHITNEY Daley - 12/10/2016 10:20 AM CDT Reason For Visit Reason For Visit: Acute Visit Chief Complaint pt c/o right hand pain. pt has knot at base of thumb that started 3 months ago. History of Present Illness Subcutaneous Lesion Excision Evaluation: The patient is being seen for a follow- up evaluation regarding and Cyst to right thumb pad, palmar aspect increased in size and pain with erythema surroundingsubcutaneous lesion excision. Symptoms: single lesion. The patient is currently experiencing symptoms. Review of Systems See HPI for pertinent positives. Constitutional: Normal. ENT: normal. Cardiovascular: Normal. Respiratory: Normal. Gastrointestinal: Normal. Genitourinary: Normal. Integumentary: skin lesion. Musculoskeletal: Normal. Neurological: Normal. Psychiatric: Normal. Active Problems 1. Anxiety (300.00) (F41.9) 2. Benign essential HTN (401.1) (I10) 3. BMI 32.0-32.9,adult (V85.32) (Z68.32) 4. Depression (311) (F32.9) 5. Hand pain (729.5) (M79.643) 6. Wears glasses (V49.89) (Z97.3) Past Medical History [...] No illicit drug use ?? 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 Social alcohol use (Z78.9) Immunizations Tdap --- Series1: 89Maj2250 Current Meds 1. ClonazePAM 1 MG Oral Tablet; TAKE 1 TABLET Bedtime; Therapy: 78Iow5406 to (Evaluate:76Gla9598) Requested for: 08Oct2016; Last Rx:08Oct2016 Ordered Rx By: Bailey Verde; Dispense: 30 Days ; #:30 Tablet; Refill: 2; For: Anxiety; ASHA = N; Print Rx 2. Tamoxifen Citrate 20 MG Oral Tablet; TAKE 1 TABLET DAILY; Therapy: 03Zqy1707 to Recorded Dispense: 0 Days ; #: Sufficient Tablet; Refill: 0; For: PMH: Abnormal mammogram; ASHA = N; Record; Last Updated By: Mikala Traylor; 11/17/2015 8:41:46 AM 3. Venlafaxine HCl ER 150 MG Oral Capsule Extended Release 24 Hour; TAKE ONE CAPSULE BY MOUTH EVERY DAY; Therapy: 08Oct2016 to (Evaluate:05Fhi3770) Recorded Dispense: 90 Days ; #:90 Capsule Extended Release 24 Hour; Refill: 1; For: Depression; ASHA = N; Record; Last Updated By: Mikala Traylor; 10/08/2016 7:42:55 AM Allergies 1. No Known Drug Allergies Recorded By: Mikala Traylor; 07/13/2015 7:08:04 AM Vitals Recorded: 22Szj6184 10:33AM Temperature 97.4 F Heart Rate 65 Respiration 16 Systolic 116 Diastolic 74 O2 Saturation 98 Height 5 ft 6 in Weight 195 lb 9.6 oz BMI Calculated 31.57 BSA Calculated 1.98 Physical Exam Constitutional General appearance: Abnormal. uncomfortable. Pulmonary Respiratory effort: No increased work of breathing or signs of respiratory distress. Auscultation of lungs: Clear to auscultation. Cardiovascular Auscultation of heart: Normal rate and rhythm, normal S1 and S2, without murmurs. Musculoskeletal Gait and station: Normal. Skin Examination of the skin for lesions: Abnormal. 1cm raised firm lesion to right thumb pad, palmar aspect with erythema and pain to touch. Psychiatric Orientation to person, place, and time: Normal. Mood and affect: Normal. Results/Data XR HAND MINIMUM 3 VIEW RT ( Routine ) 76Wnu6391 12:02PM Bailey Vedre Test Name Result Flag Reference XR HAND MINIMUM 3 VIEW RT (Report) MILAGROS CERVANTES ADMIT/SERVICE DATE: 12/06/16 ACCT: [id number] DISCHARGE DATE: : 1965 SEX: F ORD SITE: [facility] PT TYPE: REG CLI ORDERING MD: BAILEY VERDE [facility] STUDY DATE REPORT # ORDER # EXT ORDER ID 12/06/16 [id number] PROC CODE: [id number] PROCEDURE DESCRIPTION: XR HAND MINIMUM 3 VIEWS RT IMAGING STUDIES: XR HAND MINIMUM 3 VIEWS RT DATE: 12/06/2016 11:40 AM COMPARISON STUDIES: NO PREVIOUS AVAILABLE. CLINICAL HISTORY: OTHER - PAIN . . FINDINGS AND IMPRESSION: 1. NO DEFINITIVE EVIDENCE OF ACUTE FRACTURE OR DISLOCATION. NO DESTRUCTIVE OR LYTIC LESIONS. NO RADIOPAQUE FOREIGN BODIES OR ABNORMAL SOFT TISSUE CALCIFICATIONS NOTED. . 2. QUESTIONABLE SLIVER OF BONE (AND THEREFORE AN AVULSION INJURY OF INDETERMINATE AGE) ADJACENT TO THE HEAD OF THE THUMB PROXIMAL PHALANX VERSUS ARTIFACT CREATED BY A TRAVERSING THE NUTRITIONAL VESSEL. CORRELATE WITH PHYSICAL EXAM. THE MILL FEEDER OF THIS REPORT IN ITS ENTIRETY IS A PRODUCT OF VOICE RECOGNITION SOFTWARE. ELECTRONICALLY SIGNED BY BETH GEE MD ON 12/06/2016 12:06 PM Assessment 1. Cyst of joint of hand, right (839.84) (M25.841) Discussion/Summary Cyst to right hand- Appointment scheduled with Dr Hair for surgical excision, evaluation. FU PRN Signatures Electronically signed by : Bailey Verde NP; Dec 10 2016 2:38PM ADMISSIONS MANAGER RN (Author) * Generic Conversion MD Domenic - 12/10/2016 9:50 AM CDT Message Recorded as Task Date: 12/08/2016 10:45 PM, Created By: Bailey Verde Task Name: Call Patient with results Assigned To: Bailey Verde Regarding Patient: Milagros Cervantes, Status: Active Comment: Bailey Verde - 08 Dec 2016 10:45 PM Patient No acute fracture. Will discuss furhter at scheduled appointment this week Mikala Traylor - 09 Dec 2016 4:39 PM TASK EDITED will discuss at appt tomorrow. Signatures Electronically signed by : Mikala Traylor MA; Dec 10 2016 9:50AM ADMISSIONS MANAGER RN (Author) documented in this encounter Plan of Treatment Not on file documented as of this encounter Visit Diagnoses Not on filedocumented in this encounter
--- OUTSIDE RECORDS SUMMARY | 2024-04-25 14:15 | XMS_ITS | Encounter Summary ---
Author Organization [facility] Address [address] [place] [address]. [place], [place] [address] [place] [address] Care Team Providers Care Piano And Organ Refinisher Name Role Phone Unavailable Primary Care Provider Unavailabl e Encounter Details Date Type Department Care Team (Late st Contact Info) Description 12/06/2016 Abstract [facility] [address] [place], [place] [id number] Bailey Pleitez APNP Social History Tobacco Use [...] as of this encounter Visit Diagnoses Diagnosis Pain of hand Pain in limb documented in this encounter
--- OUTSIDE RECORDS SUMMARY | 2024-04-25 14:15 | XMS_ITS | Encounter Summary ---
Author Organization [facility] Address [address] [place] [address]. [place] [address] Care Team Providers Care Pawn Shop Keeper Name Role Phone Unavailable Primary Care Provider Unavailabl e Encounter Details Date Type Department Care Team (Latest Contact Info) Description 01/08/2017 Abstract [facility] Medical Group Social History Tobacco Use Types Packs/Day Years Used Date Smoking Tobacco: Never Assessed Comments Unknown Sex and Gender Information Value Date Recorded Sex Assigned at Not on file Legal Sex Female 7:16 PM CDT Gender Identity Not on file Sexual Orientation Not on file documented as of this encounter Progress Notes * Harry Pickard MD - 01/07/2017 12:00 AM CDT [place] [address] Patient: MILAGROS CERVANTES Med Rec#: [id number] Birthdate: 1965 Admit/Svce Date: 01/07/2017 Disch Date: Attending Md: HARRY PICKARD MD CHART DOCUMENT DATE OF SURGERY: 01/07/2017 SURGICAL PATH NO: [id number] DATE OBTAINED: 01/07/2017 DATE RETURNED: 01/08/2017 REPORT OF PATHOLOGICAL EXAMINATION PATHOLOGICAL DIAGNOSIS: I. Skin lesion from right hand -Benign capillary hemangioma Specimen: Right hand cyst Gross Examination: The specimen is received in formalin and labeled with the patient's name and right hand cyst and consists of a white/dumont, ovoid fragment of skin measuring 1.2 cm. x 1.0 cm. x 0.4. The skin surface is white/dumont and in the center is a small dark lesion measuring less than 0.1 cm. The resected margin is inked. Sectioning reveals dull, pink/dumont tissue. The specimen is bisected, submitted entirely in a single cassette. [place]over 01/07/2017 01/08/2017 08:10 A MICROSCOPIC EXAMINATION: Sections revealed skin. The epidermis shows marked hyperkeratosis. The dermis shows a relatively well circumscribed lesion involving the deep resected margin. The lesion consists of benign capillaries surrounded by fibrosis. Electronically Signed by Monica Rangel MD 01/08/2017 10:25 A DT: Ame:01/08/2017 Doc No: [id number] documented in this encounter Plan of Treatment Not on file documented as of this encounter Visit Diagnoses Not on filedocumented in this encounter
--- OUTSIDE RECORDS SUMMARY | 2024-04-25 14:15 | XMS_ITS | Encounter Summary ---
Author Organization [facility] Address [address] [place] [address]. [place] [address] Care Team Providers Care Jewelry Manager Name Role Phone Unavailable Primary Care Provider Unavailabl e Encounter Details Date Type Department Care Team (Latest Contact Info) Description 12/05/2016 Abstract [facility] Medical Group Social History Tobacco Use Types Packs/Day Years Used Date Smoking Tobacco: Never Assessed Comments Unknown Sex and Gender Information Value Date Recorded Sex Assigned at Not on file Legal Sex Female 7:16 PM CDT Gender Identity Not on file Sexual Orientation Not on file documented as of this encounter Progress Notes * Generic Conversion MD Domenic - 12/05/2016 10:19 AM CDT Message Recorded as Task Date: 12/04/2016 09:38 AM, Created By: Shireen Farnsworth Task Name: Call Back Assigned To: [facility] Nurse Team Regarding Patient: Milagros Cervantes, Status: In Progress Comment: Shireen Farnsworth - 04 Dec 2016 9:38 AM TASK CREATED Dinora, registrar in hospital called, states pt here stating she thinks she is supposed to have hand x-ray. I did not see anything in the chart indicating a need for this, I told Dinora I can ask Bailey Friday afternoon when she is back in the office, and then we can call and let the pt know. Shireen Farnsworth - 04 Dec 2016 9:38 AM TASK IN PROGRESS Mikala Traylor - 05 Dec 2016 10:26 AM TASK EDITED pt did call the other day and ask for hand x-ray. i forgot to order x-ray, pt will have F/U appt with Bailey next week pertaining to her hand. Mikala Traylor - 05 Dec 2016 10:27 AM TASK EDITED lvm for pt to return call. i can not remember which hand she needs x-rayed. Zully Lee - 05 Dec 2016 10:38 AM TASK EDITED pt. called back and needs X-rays on her right hand. Zully Lee - 05 Dec 2016 10:45 AM TASK EDITED Pt. will call back and make appt. after she gets the x-ray done. Mikala Traylor - 05 Dec 2016 10:52 AM TASK EDITED x-ray ordered. Plan 1. XR HAND MINIMUM 3 VIEW RT ( Routine ); Status:Active; Requested for:[id number]; Perform:[facility] Radiology; Due:60Gkn0663; Last Updated By:Mikala Traylor; 12/05/2016 10:52:13 AM;Ordered; For:Hand pain; Ordered By:Bailey Pleitez; Signatures Electronically signed by : Mikala Traylor MA; Dec 05 2016 10:52AM HOUSEKEEPER CAREGIVER (Author) documented in this encounter Plan of Treatment Not on file documented as of this encounter Procedures Procedure Name Priority Date/Time Associated Diagnosis Comments XR HAND RT 3V Routine 12/06/2016 12:02 PM CDT documented in this encounter Results * XR HAND RT 3V (12/06/2016 12:02 PM CDT) Anatomical Region Laterality Modality Hand Radiographic Alena ging 12/06/2016 12:0 2 PM CDT 12/06/2016 12:02 PM CDT Narrative 12/06/2016 12:10 PM CDT MILAGROS CERVANTES Isabel ? ADMIT/SERVICE DATE: 12/06/16 ?? ACCT: [id number] ?DISCHARGE DATE: ?? : 1965 ??SEX: F ?ORD SITE: [facility] ?? PT TYPE: REG CLI ? ORDERING MD: BAILEY PLEITEZ [facility] ? STUDY DATE ? REPORT # ?ORDER # ? EXT ORDER ID ?? 12/06/16 ? [id number] ? [id number] ?[id number] ? PROC CODE: ? [id number] ? PROCEDURE DESCRIPTION: ?? XR HAND MINIMUM 3 VIEWS RT ? IMAGING STUDIES: ??XR HAND MINIMUM 3 VIEWS RT ? DATE: ??12/06/2016 11:40 AM ? COMPARISON STUDIES: NO PREVIOUS AVAILABLE. ? CLINICAL HISTORY: ??OTHER - PAIN ??. ?. ? FINDINGS AND IMPRESSION: ? 1. ??NO DEFINITIVE EVIDENCE OF ACUTE FRACTURE OR DISLOCATION. NO DESTRUCTIVE OR LYTIC LESIONS. NO RADIOPAQUE FOREIGN BODIES OR ABNORMAL SOFT TISSUE CALCIFICATIONS NOTED. . ? 2. ??QUESTIONABLE SLIVER OF BONE (AND THEREFORE AN AVULSION INJURY OF INDETERMINATE AGE) ADJACENT TO THE HEAD OF THE THUMB PROXIMAL PHALANX VERSUS ARTIFACT CREATED BY A TRAVERSING THE NUTRITIONAL VESSEL. CORRELATE WITH PHYSICAL EXAM. ? THE SUPERVISOR SHED WORKERS OF THIS REPORT IN ITS ENTIRETY IS A PRODUCT OF VOICE RECOGNITION SOFTWARE. ? ELECTRONICALLY SIGNED BY BETH GEE MD ON 12/06/2016 12:06 PM ? Procedure Note Mandi Sheth MD - 02/26/2018 MILAGROS CERVANTES ADMIT/SERVICE DATE:12/06/16 ACCT: [id number] DISCHARGE DATE: : 1965 SEX: F ORD SITE: [facility] PT TYPE: REG CLI ORDERING MD:BAILEY LPEITEZ [facility] STUDY DATE REPORT # ORDER # EXT ORDER ID 12/06/16 [id number] PROC CODE: [id number] PROCEDURE DESCRIPTION: XR HAND MINIMUM 3 VIEWS RT IMAGING STUDIES: XR HAND MINIMUM 3 VIEWS RT DATE: 12/06/2016 11:40 AM COMPARISON STUDIES: NO PREVIOUS AVAILABLE. CLINICAL HISTORY: OTHER - PAIN . . FINDINGS AND IMPRESSION: 1. NO DEFINITIVE EVIDENCE OF ACUTE FRACTURE OR DISLOCATION. NODESTRUCTIVE OR LYTIC LESIONS. NO RADIOPAQUE FOREIGN BODIES OR ABNORMAL SOFT TISSUE CALCIFICATIONS NOTED. . 2. QUESTIONABLE SLIVER OF BONE (AND THEREFORE AN AVULSION INJURY OFINDETERMINATE AGE) ADJACENT TO THE HEAD OF THE THUMB PROXIMAL PHALANX VERSUS ARTIFACT CREATED BY ATRAVERSING THE NUTRITIONAL VESSEL. CORRELATE WITH PHYSICAL EXAM. THE SUPERVISOR SHED WORKERS OF THIS REPORT IN ITS ENTIRETY IS A PRODUCT OF VOICERECOGNITION SOFTWARE. ELECTRONICALLY SIGNED BY BETH GEE MD ON 12/06/2016 12:06 PM Bailey [facility] Final Result documented in this encounter Visit Diagnoses Not on filedocumented in this encounter
--- OUTSIDE RECORDS SUMMARY | 2024-04-25 14:15 | XMS_ITS | Encounter Summary ---
Author Organization [facility] Address [address] [place] [address]. [place], [place] [address] [place] [address] Care Team Providers Care Crystallographer Name Role Phone Unavailable Primary Care Provider Unavailabl e Encounter Details Date Type Department Care Team (Late st Contact Info) Description 01/07/2017 Abstract [facility] General Surgery [facility] [address] [facility], [address] [place] [address] [place] [address] [facility] [address] [place] [address] Social History Tobacco Use Types [...] Reading Time Taken Comments Blood Pressure 140/80 01/07/2017 10:07 AM CDT Pulse 64 01/07/2017 10:07 AM CDT Temperature - - Respiratory Rate - - Oxygen Saturation - - Inhaled Oxygen Concentration - - Weight 88.5 kg (195 lb) 01/07/2017 10:07 AM CDT Height 167.6 cm (5' 6 ) 01/07/2017 10:07 AM CDT Body Mass Index 31.47 01/07/2017 10:07 AM CDT documented in this encounter Progress Notes * Harry Hair MD - 01/07/2017 9:00 AM CDT Reason For Visit Procedure Visit Chief Complaint HERE FOR REMOVAL OF LESION RIGHT HAND NO COMPLAINTS History of Present Illness HPI Free Text: Here for removal 0,5 cm painful nodular mass palm right hand Active Problems 1. Anxiety (300.00) (F41.9) 2. [...] No illicit drug use ?? 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 Social alcohol use (Z78.9) Immunizations Tdap --- Series1: [id number] Current Meds 1. ClonazePAM 1 MG Oral Tablet; TAKE 1 TABLET Bedtime; Therapy: 33Rul6044 to (Evaluate:98Qwm5175) Requested for: 08Oct2016; Last Rx:08Oct2016 Ordered Rx By: Bailey Pleitez; Dispense: 30 Days ; #:30 Tablet; Refill: 2; For: Anxiety; ASHA = N; Print Rx 2. Tamoxifen Citrate 20 MG Oral Tablet; TAKE 1 TABLET DAILY; Therapy: 41Nch7117 to Recorded Dispense: 0 Days ; #: Sufficient Tablet; Refill: 0; For: PMH: Abnormal mammogram; ASHA = N; Record; Last Updated By: Mikala Traylor; 11/17/2015 8:41:46 AM 3. Venlafaxine HCl ER 150 MG Oral Capsule Extended Release 24 Hour; TAKE 1 CAPSULE BY MOUTH EVERY DAY WITH FOOD; Therapy: 27Feb2016 to (Evaluate:21Ovy8771) Requested for: 19Dec2016; Last Rx:19Dec2016 Ordered Rx By: Bailey Pleitez; Dispense: 30 Days ; #:30 Capsule; Refill: 2; For: Anxiety; ASHA = N; Verified Transmission to [facility] # [id number]; Last Updated By: Cheryl Philippe; 12/19/2016 2:03:06 PM 4. Venlafaxine HCl ER 150 MG Oral Capsule Extended Release 24 Hour; TAKE ONE CAPSULE BY MOUTH EVERY DAY; Therapy: 08Oct2016 to (Evaluate:22Equ8903) Recorded Dispense: 90 Days ; #:90 Capsule Extended Release 24 Hour; Refill: 1; For: Depression; ASHA = N; Record; Last Updated By: Mikala Traylor; 10/08/2016 7:42:55 AM Allergies 1. No Known Drug Allergies Recorded By: Mikala Traylor; 07/13/2015 7:08:04 AM Vitals Recorded: 04Cts1547 10:07AM Temperature 98.7 F Heart Rate 64 Respiration 16 Systolic 140 Diastolic 80 Height 5 ft 6 in Weight 195 lb BMI Calculated 31.47 BSA Calculated 1.98 Physical Exam Skin - Skin and subcutaneous tissue: Abnormal. 0.5 cm nolduar mass palm right hand. Plan The planned procedure/s, the expected benefits,the associated risks,possible complications, and alternatives to the procedure/s have been discussed in detail with the patient or family. They state that they understand, have no further questions and agree to proceed with the procedure/s as outlined. Procedures/Surgery: Excision nodular lesion right hand Discussion/Summary Area infiltrated with 1 % lidocaine Lesion excised with 1 cm elliptical incision and closed with 4- 0 nylon Neosporin ointment and waterproof bandaid. F/u 7- 10 days for suture removal . Signatures Electronically signed by : Harry Hair M.D.; Jan 13 2017 11:06PM HOUSE PAINTER (Author) documented in this encounter Miscellaneous Notes * Letter - Harry Hair MD - 01/07/2017 9:00 AM CDT January 07, 2017 To Whom It May Concern: The above named patient may not return to work until further notice. Sincerely, Dr. Harry Hair Jr. Electronically signed by:Harry Hair M.D. Jan 13 2017 11:02PM HOUSE PAINTER documented in this encounter Plan of Treatment Not on file documented as of this encounter Visit Diagnoses Not on filedocumented in this encounter
--- OUTSIDE RECORDS SUMMARY | 2024-04-25 14:15 | XMS_ITS | Encounter Summary ---
Author Organization [facility] Address [address] [place] [address]. [place], [place] [address] [place] [address] Care Team Providers Care Bottom Turner Name Role Phone Unavailable Primary Care Provider Unavailabl e Encounter Details Date Type Department Care Team (Late st Contact Info) Description 11/14/2016 Abstract [facility] Medical Group Family & Internal Medicine [address] [address] Bailey Pleitez APNP Social History [...] Sign Reading Time Taken Comments Blood Pressure 118/76 11/14/2016 2:17 PM CDT Pulse 86 11/14/2016 2:17 PM CDT Temperature - - Respiratory Rate - - Oxygen Saturation - - Inhaled Oxygen Concentration - - Weight 89.4 kg (197 lb) 11/14/2016 2:17 PM CDT Height 167.6 cm (5' 6 ) 11/14/2016 2:17 PM CDT Body Mass Index 31.8 11/14/2016 2:17 PM CDT documented in this encounter Progress Notes * WHITNEY Daley - 11/14/2016 2:00 PM CDT Reason For Visit Reason For Visit: Acute Visit Chief Complaint pt c//o falling two weeks ago and still has bruising and laceration of left leg. area around laceration is red. pt c/o lower left leg pain. History of Present Illness Lacerations: The patient is being seen for an initial evaluation of a laceration. She sustained a laceration to the Left lower leg anterior aspect. This occurred 1 week(s) ago. The injury resulted from falling against an object. Injury complications include delayed presentation. (Pt reports tripping in the dark on a camping trip and falling, resulting in laceration to left lower leg and numerous bruises to left leg, right leg and right arm) Symptoms: localized pain, bruising and wound redness. The patient is currently experiencing symptoms. Current treatment includes nonsteroidal anti-inflammatory drugs. Review of Systems See HPI for pertinent [...] herpes zoster (V12.09) (Z86.19) 6. History of Lipid screening (V77.91) (Z13.220) 7. History of Lung nodule seen on imaging study (793.11) (R91.1) 8. History of Other superficial bite of lower leg (916.8) (S80.879A) 9. History of Screening for hypothyroidism (V77.0) (Z13.29) [...] ?? two glasses of tea per day ? Does not exercise (V69.0) (Z72.3) ?? Graduated from high school ?? House ?? Never a smoker ?? No advance directives (V49.89) (Z78.9) ?? No illicit drug use ?? 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 Social alcohol use (Z78.9) Current Meds 1. ClonazePAM 1 MG Oral Tablet; TAKE 1 TABLET Bedtime; Therapy: 19Sep2015 to (Evaluate:62Zcx4660) Requested for: 08Oct2016; Last Rx:08Oct2016 Ordered Rx [...] BY MOUTH EVERY DAY; Therapy: 08Oct2016 to (Evaluate:33Ese5535) Recorded Dispense: 90 Days ; #:90 Capsule Extended Release 24 Hour; Refill: 1; For: Depression; ASHA = N; Record; Last Updated By: Mikala Traylor; 10/08/2016 7:42:55 AM Allergies 1. No Known Drug Allergies Recorded By: Mikala Traylor; 07/13/2015 7:08:04 AM Vitals Recorded: 94Fyd4709 02:17PM Temperature 98.2 F Heart Rate 86 Respiration 16 Systolic 118 Diastolic 76 O2 Saturation 97 Height 5 ft 6 in Weight 197 lb BMI Calculated 31.8 BSA Calculated 1.99 Physical Exam Constitutional General appearance: No acute distress, well appearing and well nourished. Pulmonary Respiratory effort: No increased work of breathing or signs of respiratory distress. Auscultation of lungs: Clear to auscultation. Cardiovascular Auscultation of heart: Normal rate and rhythm, normal S1 and S2, without murmurs. Musculoskeletal Gait and station: Normal. Skin Examination of the skin for lesions: Abnormal. 2 cm laceration to left anterior lower leg, with erythema surrounding area and tenderness to touch. Wound scabbed over 2/2 delayed presentation. Psychiatric Orientation to person, place, and time: Normal. Mood and affect: Normal. Assessment 1. Laceration of left lower leg with complication (891.1) (S81.672A) Plan Laceration of left lower leg with complication 1. Doxycycline Monohydrate 100 MG Oral Capsule; Take 1 capsule twice daily Rx By: Bailey Pleitez; Dispense: 7 Days ; #:14 Capsule; Refill: 0; For: Laceration of left lower leg with complication; ASHA = N; Verified Transmission to [facility] # [id number]; Last Updated By: Cheryl Philippe; 11/14/2016 2:40:55 PM Laceration of left lower leg with complication, Need for Tdap vaccination 2. Tdap (Adacel) For: Laceration of left lower leg with complication, Need for Tdap vaccination; Ordered By:Bailey Pleitez; Effective Date:14Nov2016; Administered by: Shireen Farnsworth: 11/14/2016 2:45:00 PM; Last Updated By: Shireen Farnsworth; 11/14/2016 2:46:59 PM Discussion/Summary Laceration to left lower leg- Treated with Tetanus booster and prescribed Doxycycline for 7 days. FU PRN Signatures Electronically signed by : Bailey Pleitez NP; Nov 14 2016 3:03PM ACCOUNTING REPRESENTATIVE (Author) documented in this encounter Plan of Treatment Not on file documented as of this encounter Visit Diagnoses Not on filedocumented in this encounter
--- OUTSIDE RECORDS SUMMARY | 2024-04-25 14:15 | XMS_ITS | Encounter Summary ---
Author Organization [facility] Address [address] [place] [address]. [place] [address] Care Team Providers Care Digital Solution Architect Name Role Phone Unavailable Primary Care Provider Unavailabl e Encounter Details Date Type Department Care Team (Latest Contact Info) Description 12/19/2016 Abstract [facility] Medical Group , Mandi Clark MD Social History Tobacco Use Types Packs/Day Years Used Date Smoking Tobacco: Never Assessed Comments Unknown Sex and Gender Information Value Date Recorded Sex Assigned at Not on file Legal Sex Female 7:16 PM CDT Gender Identity Not on file Sexual Orientation Not on file documented as of this encounter Progress Notes * Mandi Clark Md, MD - 12/19/2016 10:59 AM CDT Message Message: ALLIE RAO MOUNT SOLONYo AUTHORIZATION NUMBER [id number] AUTHORIZED 12/19/2016-02/18/17 Signatures Electronically signed by : Sheree Hung MA; Sep 04 2017 11:52AM PIPE JEEPER (Author) documented in this encounter Plan of Treatment Not on file documented as of this encounter Visit Diagnoses Not on filedocumented in this encounter
--- OUTSIDE RECORDS SUMMARY | 2024-04-25 14:15 | XMS_ITS | Encounter Summary ---
Author Organization [facility] Address [address] [place] [address]. [place], [place] [address] [place] [address] Care Team Providers Care Epoxy Fabrication Supervisor Name Role Phone Unavailable Primary Care Provider Unavailabl e Encounter Details Date Type Department Care Team (Late st Contact Info) Description 01/13/2017 Abstract [facility] Medical [facility] General Surgery [facility] [address] [facility], [address] [place] [address] [place] [address] [facility] [address] [place] [address] Social History Tobacco Use Types Packs/Day Years Used Date Smoking Tobacco: Never Assessed Comments Unknown Sex and Gender Information Value Date Recorded Sex Assigned at Not on file Legal Sex Female 7:16 PM CDT Gender Identity Not on file Sexual Orientation Not on file documented as of this encounter Last Filed Vital Signs Vital Sign Reading Time Taken Comments Blood Pressure 150/88 01/13/2017 3:40 PM CDT Pulse 64 01/13/2017 3:40 PM CDT Temperature - - Respiratory Rate - - Oxygen Saturation - - Inhaled Oxygen Concentration - - Weight 88.5 kg (195 lb) 01/13/2017 3:40 PM CDT Height 167.6 cm (5' 6 ) 01/13/2017 3:40 PM CDT Body Mass Index 31.47 01/13/2017 3:40 PM CDT documented in this encounter Progress Notes * Harry Hair MD - 01/13/2017 3:15 PM CDT Chief Complaint FOLLOW UP 6 DAY RIGHT HAND LESION REMOVAL NO COMPLAINTS History of Present Illness HPI Free Text: 6 days s/p excision lesion palm left hand. Doing well , no complaints. Active Problems 1. Anxiety (300.00) (F41.9) 2. Benign essential HTN (401.1) (I10) 3. BMI 32.0-32.9,adult (V85.32) (Z68.32) 4. Cyst of joint of hand, right (719.84) (M25.841) 5. Depression (311) (F32.9) 6. Hand pain (729.5) (M79.643) 7. Skin lesion (709.9) (L98.9) 8. Wears glasses (V49.89) (Z97.3) Past Medical History [...] No illicit drug use ?? 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 Social alcohol use (Z78.9) Immunizations Tdap --- Series1: 09Gcc2559 Current Meds 1. ClonazePAM 1 MG Oral Tablet; TAKE 1 TABLET Bedtime; Therapy: 08Bhj0200 to (Evaluate:29Sfe6344) Requested for: 08Oct2016; Last Rx:08Oct2016 Ordered Rx By: Bailey Pleitez; Dispense: 30 Days ; #:30 Tablet; Refill: 2; For: Anxiety; ASHA = N; Print Rx 2. Tamoxifen Citrate 20 MG Oral Tablet; TAKE 1 TABLET DAILY; Therapy: 71Kza6783 to Recorded Dispense: 0 Days ; #: Sufficient Tablet; Refill: 0; For: PMH: Abnormal mammogram; ASHA = N; Record; Last Updated By: Mikala Traylor; 11/17/2015 8:41:46 AM 3. Venlafaxine HCl ER 150 MG Oral Capsule Extended Release 24 Hour; TAKE 1 CAPSULE BY MOUTH EVERY DAY WITH FOOD; Therapy: 27Feb2016 to (Evaluate:65Lbk5279) Requested for: 19Dec2016; Last Rx:19Dec2016 Ordered Rx By: Bailey Pleitez; Dispense: 30 Days ; #:30 Capsule; Refill: 2; For: Anxiety; ASHA = N; Verified Transmission to [facility] [id number]; Last Updated By: Cheryl Philippe; 12/19/2016 2:03:06 PM 4. Venlafaxine HCl ER 150 MG Oral Capsule Extended Release 24 Hour; TAKE ONE CAPSULE BY MOUTH EVERY DAY; Therapy: 08Oct2016 to (Evaluate:92Djh0137) Recorded Dispense: 90 Days ; #:90 Capsule Extended Release 24 Hour; Refill: 1; For: Depression; ASHA = N; Record; Last Updated By: Mikala Traylor; 10/08/2016 7:42:55 AM Allergies 1. No Known Drug Allergies Recorded By: Mikala Traylor; 07/13/2015 7:08:04 AM Vitals Recorded: 56Wll8580 03:40PM Temperature 98.9 F Heart Rate 64 Systolic 150 Diastolic 88 Height 5 ft 6 in Weight 195 lb BMI Calculated 31.47 BSA Calculated 1.98 Unable to obtain weight Patient stated weight Patient stated weight Physical Exam Skin - Assessment of incision: Clean, dry, and intact. Assessment 1. Hemangioma of skin (228.01) (D18.01) Discussion/Summary Path report reviewed with patient showed benign capillary hemangioma. Sutures not ready for removal. F/u next week, Signatures Electronically signed by : Harry Hair M.D.; Jan 13 2017 10:34PM TRANSPORT SPECIALIST (Author) documented in this encounter Plan of Treatment Not on file documented as of this encounter Visit Diagnoses Not on filedocumented in this encounter
--- OUTSIDE RECORDS SUMMARY | 2024-04-25 14:15 | XMS_ITS | Encounter Summary ---
Author Organization [facility] Address [address] [place] [address]. [place] [address] Care Team Providers Care Spinning Supervisor Name Role Phone Unavailable Primary Care Provider Unavailabl e Encounter Details Date Type Department Care Team (Latest Contact Info) Description 11/28/2016 Abstract [facility] Medical Group Social History Tobacco Use [...]
--- OUTSIDE RECORDS SUMMARY | 2024-04-25 14:15 | XMS_ITS | Encounter Summary ---
Author Organization [facility] Address [address] [place] [address]. [place], [place] [address] [place] [address] Care Team Providers Care Head Athletic Trainer/Strength Coach Name Role Phone Unavailable Primary Care Provider Unavailabl e Encounter Details Date Type Department Care Team (Latest Contact Info) Description 12/08/2016 Abstract [facility] Medical Group Social History Tobacco Use Types Packs/Day Years Used Date Smoking Tobacco: Never Assessed Comments Unknown Sex and Gender Information Value Date Recorded Sex Assigned at Not on file Legal Sex Female 7:16 PM CDT Gender Identity Not on file Sexual Orientation Not on file documented as of this encounter Progress Notes * WHITNEY Daley - 12/08/2016 10:44 PM CDT Message No acute fracture. Will discuss furhter at scheduled appointment this week Verified Results XR HAND MINIMUM 3 VIEW RT ( Routine ) 01Ghv0140 12:02PM Bailey Pleitez Test Name Result Flag Reference XR HAND MINIMUM 3 VIEW RT (Report) MILAGROS CERVANTES ADMIT/SERVICE DATE: 12/06/16 ACCT: [id number] DISCHARGE DATE: : 1965 SEX: F [facility] S[facility] PT TYPE: REG CLI ORDERING MD: BAILEY PLEITEZ [facility] STUDY DATE REPORT # ORDER # EXT ORDER ID 12/06/16 [id number] PROC CODE: [id number] PROCEDURE DESCRIPTION: XR HAND MINIMUM 3 VIEWS [...] NUTRITIONAL VESSEL. CORRELATE WITH PHYSICAL EXAM. THE NEWSPAPER DELIVERY COUNSELOR OF THIS REPORT IN ITS ENTIRETY IS A PRODUCT OF VOICE RECOGNITION SOFTWARE. ELECTRONICALLY SIGNED BY BETH GEE MD ON 12/06/2016 12:06 PM documented in this encounter Plan of Treatment Not on file documented as of this encounter Visit Diagnoses Not on filedocumented in this encounter
--- OUTSIDE RECORDS SUMMARY | 2024-04-25 14:15 | XMS_ITS | Encounter Summary ---
Author Organization [facility] Address [address] [place] [address]. [place] [address] Care Team Providers Care Carbon Setter Name Role Phone Unavailable Primary Care Provider Unavailabl e Encounter Details Date Type Department Care Team (Latest Contact Info) Description 01/02/2017 Abstract [facility] Medical Group Social History Tobacco Use Types Packs/Day Years Used Date Smoking Tobacco: Never Assessed Comments Unknown Sex and Gender Information Value Date Recorded Sex Assigned at Not on file Legal Sex Female 7:16 PM CDT Gender Identity Not on file Sexual Orientation Not on file documented as of this encounter Progress Notes * Mandi Clark Md, MD - 01/02/2017 1:29 PM CDT Message Message: CALLED PATIENT TO RESCHEDULE TO LATER TIME DUE TO LENGTH OF TIME PROCEDURE WITH TAKE. PATIENT STATES HER WHOLE ARM IS NUMB AND THROBBING AND PAINFUL. I TOLD HER IF SHE WAS IN THAT MUCH PAIN THAT SHE SHOULD GO TO ER SINCE HER WHOLE ARM WAS NUMB. SHE INSISTED ON STILL BEING SEEN ON FRIDAY AND THAT I WAS NOT A DR AND TO NOT TELL HER WHAT TO DO. Signatures Electronically signed by : Sheree Hung MA; Sep 04 2017 11:43AM SENIOR SOFTWARE QA ENGINEER (Author) documented in this encounter Plan of Treatment Not on file documented as of this encounter Visit Diagnoses Not on filedocumented in this encounter
--- OUTSIDE RECORDS SUMMARY | 2024-04-25 14:15 | XMS_ITS | Encounter Summary ---
Author Organization [facility] Address [address] [place] [address]. [place], [place] [address] [place] [address] Care Team Providers Care Architectural Sales Consultant Name Role Phone Unavailable Primary Care Provider Unavailabl e Encounter Details Date Type Department Care Team (Late st Contact Info) Description 01/07/2017 Abstract [facility] [address] [place] [address] [place] [address] [facility] [address] [place] [address] Social History Tobacco Use Types [...] as of this encounter Visit Diagnoses Diagnosis Hemangioma of skin and subcutaneous tissue documented in this encounter
--- OUTSIDE RECORDS SUMMARY | 2024-04-25 14:16 | XMS_ITS | Encounter Summary ---
Author Organization [facility] Address [address] [place] [address]. [place], [place] [address] [place] [address] Care Team Providers Care Regulatory Manager Name Role Phone Unavailable Primary Care Provider Unavailabl e Encounter Details Date Type Department Care Team (Late st Contact Info) Description 10/29/2016 Abstract [facility] Family & Internal Medicine [facility] [id number] [place] [phone] [place] [address] [place], [place] [id number] Social History Tobacco Use Types Packs/Day Years Used Date Smoking Tobacco: Never Assessed Comments Unknown Sex and Gender Information Value Date Recorded Sex Assigned at Not on file Legal Sex Female 7:16 PM CDT Gender Identity Not on file Sexual Orientation Not on file documented as of this encounter Last Filed Vital Signs Vital Sign Reading Time Taken Comments Blood Pressure 114/72 10/29/2016 11:47 AM CDT Pulse 72 10/29/2016 11:47 AM CDT Temperature - - Respiratory Rate - - Oxygen Saturation - - Inhaled Oxygen Concentration - - Weight 89.8 kg (198 lb) 10/29/2016 11:47 AM CDT Height 167.6 cm (5' 6 ) 10/29/2016 11:47 AM CDT Body Mass Index 31.96 10/29/2016 11:47 AM CDT documented in this encounter Progress Notes * Ganga Galaviz MD - 10/29/2016 11:45 AM CDT Chief Complaint Pt here to have sore looked at on left lower leg, pt finished rx for Bactrim History of Present Illness Insect Bite/Sting (Brief): The patient is being seen for an initial evaluation of an insect bite/sting. She sustained an insect bite/sting to the left leg. The patient was bitten/stung by an unidentified insect. This occurred 1 week hour(s) ago. The patient presents with complaints of gradual onset of moderate localized redness starting about 1 week ago. She is currently experiencing localized redness. Symptoms are worsening. Previous Evaluation: Pt thinks she may have been biten by something. started as a blister and now is a sore that isnon healing and sore. The patient is currently experiencing symptoms. Review of Systems See HPI for pertinent positives. Constitutional: Normal. ENT: normal. Cardiovascular: Normal. Respiratory: Normal. Gastrointestinal: Normal. Genitourinary: Normal. Integumentary: skin lesion. Musculoskeletal: Normal. Neurological: Normal. Psychiatric: Normal. Active Problems 1. Anxiety (300.00) (F41.9) 2. Benign essential HTN (401.1) (I10) 3. BMI 32.0-32.9,adult (V85.32) (Z68.32) 4. Depression (311) (F32.9) 5. Other superficial bite of lower leg (916.8) (S80.879A) Past Medical History 1. History of Abnormal mammogram (793.80) (R92.8) 2. History of Elevated blood pressure 3. History of Flank pain (789.09) (R10.9) 4. History of Gallstones (574.20) (K80.20) 5. History of herpes zoster (V12.09) (Z86.19) 6. History of Lipid screening (V77.91) (Z13.220) 7. History of Lung nodule seen on imaging study (793.11) (R91.1) 8. History of Screening for hypothyroidism (V77.0) (Z13.29) [...] ? Does not exercise (V69.0) (Z72.3) ?? Never a smoker ?? No illicit drug use ?? 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 Social alcohol use (Z78.9) Current Meds 1. ClonazePAM 1 MG Oral Tablet; TAKE 1 TABLET Bedtime; Therapy: 18Fuh3191 to (Evaluate:[id number]) Requested for: 08Oct2016; Last Rx:08Oct2016 Ordered 2. Tamoxifen Citrate 20 MG Oral Tablet; TAKE 1 TABLET DAILY; Therapy: 01Wfm8517 to Recorded 3. Venlafaxine HCl ER 150 MG Oral Capsule Extended Release 24 Hour; TAKE ONE CAPSULE BY MOUTH EVERY DAY; Therapy: 08Oct2016 to (Evaluate:16Btf9044) Recorded 4. ClonazePAM 0.5 MG Oral Tablet; TK 1 T PO QHS; Therapy: 20Aug2016 to Recorded 5. Cyclobenzaprine HCl - 10 MG Oral Tablet; TK 1 T PO QHS; Therapy: 30Aug2016 to Recorded 6. Ibuprofen 600 MG Oral Tablet; TK 1 T PO Q 6 H WF PRF CRAMPING; Therapy: 30Aug2016 to Recorded 7. ValACYclovir HCl - 500 MG Oral Tablet; TK 1 T PO Q 12 H PRF 3 DAYS; Therapy: 06Aug2016 to Recorded Allergies 1. No Known Drug Allergies Vitals Recorded: 29Oct2016 11:47AM Heart Rate 72 Respiration 16 Systolic 114 Diastolic 72 O2 Saturation 98 Height 5 ft 6 in Weight 198 lb BMI Calculated 31.96 BSA Calculated 1.99 Physical Exam Constitutional General appearance: No acute distress, well appearing and well nourished. Pulmonary Respiratory effort: No increased work of breathing or signs of respiratory distress. Auscultation of lungs: Clear to auscultation. Cardiovascular Auscultation of heart: Normal rate and rhythm, normal S1 and S2, without murmurs. Musculoskeletal Gait and station: Normal. Skin Examination of the skin for lesions: Abnormal. Sinlge 1cm x 0.7 cm open sore with erythema to perimeter and pain to touch, slight edema noted, no drainage. Psychiatric Orientation to person, place, and time: Normal. Mood and affect: Normal. Assessment 1. Other superficial bite of lower leg (916.8) (S89.706J) Plan 1) Bite: looks like a spider bite possibly a brown recluse has some inflammatory reaction with central ulceration but no calor, discharge or necrosis for now will just observe and advised that this will take a while to resolve Signatures Electronically signed by : Ganga Galaviz M.D.; Oct 29 2016 7:23PM ATTENDANT COIN OPERATED LAUNDRY (Author) documented in this encounter Plan of Treatment Not on file documented as of this encounter Visit Diagnoses Not on filedocumented in this encounter
--- OUTSIDE RECORDS SUMMARY | 2024-04-25 14:16 | XMS_ITS | Encounter Summary ---
Author Organization [facility] Address [address] [place] [address]. [place], [place] [address] [place] [address] Care Team Providers Care Foreign Service Teacher Name Role Phone Unavailable Primary Care Provider Unavailabl e Encounter Details Date Type Department Care Team (Late st Contact Info) Description 10/18/2016 Abstract [facility] Diagnostic Imaging [address] [place], [place] [id number] Bailey Pleitez APNP Social History Tobacco Use [...] as of this encounter Visit Diagnoses Diagnosis Solitary pulmonary nodule documented in this encounter
--- OUTSIDE RECORDS SUMMARY | 2024-04-25 14:16 | XMS_ITS | Encounter Summary ---
Author Organization [facility] Address [address] [place] [address]. [place] [address] Care Team Providers Care Bar Captain Name Role Phone Unavailable Primary Care Provider Unavailabl e Encounter Details Date Type Department Care Team (Latest Contact Info) Description 10/22/2016 Abstract [facility] , Mandi Clark MD Social History Tobacco Use Types Packs/Day Years Used Date Smoking Tobacco: Never Assessed Comments Unknown Sex and Gender Information Value Date Recorded Sex Assigned at Not on file Legal Sex Female 7:16 PM CDT Gender Identity Not on file Sexual Orientation Not on file documented as of this encounter Progress Notes * Mandi Clark Md, MD - 10/22/2016 4:56 PM CDT Message Recorded as Task Date: 10/21/2016 10:16 AM, Created By: Bailey Pleitez Task Name: Call Patient with results Assigned To: Bailey Pleitez Regarding Patient: Milagros Torres, Status: Active Comment: Bailey Pletiez - 21 Oct 2016 10:16 AM Patient Nodule decreased and less obvious. No further follow up recommended Mikala Traylor - 21 Oct 2016 10:54 AM TASK EDITED pt coming in for appt today. Mikala Traylor - 22 Oct 2016 4:56 PM TASK EDITED discussed at appt yesterday. Signatures Electronically signed by : Mikala Traylor MA; Oct 22 2016 4:56PM INBOUND CALL CENTER REPRESENTATIVE (Author) documented in this encounter Plan of Treatment Not on file documented as of this encounter Visit Diagnoses Not on filedocumented in this encounter
--- OUTSIDE RECORDS SUMMARY | 2024-04-25 14:16 | XMS_ITS | Encounter Summary ---
Author Organization [facility] Address [address] [place] [address]. [place] [address] Care Team Providers Care Director Search Name Role Phone Unavailable Primary Care Provider Unavailabl e Encounter Details Date Type Department Care Team (Latest Contact Info) Description 10/14/2016 Abstract [facility] Medical Group Social History [...]
--- OUTSIDE RECORDS SUMMARY | 2024-04-25 14:16 | XMS_ITS | Encounter Summary ---
Author Organization [facility] Address [address] [place] [address]. [place], [place] [address] [place] [address] Care Team Providers Care Development Technologist Name Role Phone Unavailable Primary Care Provider Unavailabl e Encounter Details Date Type Department Care Team (Late st Contact Info) Description 10/24/2016 Abstract [facility] Family & Internal Medicine [address] [phone] Heraclio Myers MD Social History Tobacco Use [...] Sign Reading Time Taken Comments Blood Pressure 124/68 10/24/2016 3:26 PM CDT Pulse 66 10/24/2016 3:26 PM CDT Temperature - - Respiratory Rate - - Oxygen Saturation - - Inhaled Oxygen Concentration - - Weight 89.8 kg (198 lb) 10/24/2016 3:26 PM CDT Height - - Body Mass Index 31.96 10/21/2016 1:01 PM CDT documented in this encounter Progress Notes * Heraclio Myers MD - 10/24/2016 3:20 PM CDT Reason For Visit Acute Visit Chief Complaint 1. Skin Lesions F/U open sore L lower leg History of Present Illness HPI Free Text: A 51-year-old lady came today with a skin lesion that measured about 5 mm in the left dorsal aspectof the left leg popliteal area more external. It seemed like it was an insect bite, could have katie spider bite but she is taking antibiotics. There is a little pinkish around the ulceration. She came today because she said that Kallie told her to come and she was very forceful and she wanted me tosomething about it, because she said she did not want to lose the leg or have a big hole in her leg. Skin Lesions: Milagros Cervantes presents with complaints of gradual onset of left leg skin lesions. Associated symptoms include no fever. Review of Systems See HPI for pertinent positives. Constitutional: no fever, no chills and no headache. ENT: no earache, no sore throat, no hearing loss and no nasal discharge. Cardiovascular: no chest pain, no intermittent leg claudication, no palpitations and no lower extremity edema. Respiratory: no shortness of breath, no cough, no wheezing, no shortness of breath during exertion and no PND. Gastrointestinal: no abdominal pain, no heartburn, no vomiting, no diarrhea and no melena. Genitourinary: no dysuria and no incontinence. Integumentary: see HPI. Musculoskeletal: no arthralgias, no joint swelling, no limb pain, no joint pain and no joint stiffness. Neurological: no confusion, no dizziness, no limb weakness and no difficulty walking. Psychiatric: no anxiety, no suicidal ideation and no depression. Active Problems 1. Anxiety (300.00) (F41.9) 2. Benign essential HTN (401.1) (I10) 3. BMI 32.0-32.9,adult (V85.32) (Z68.32) 4. Depression (311) (F32.9) 5. Gallstones (574.20) (K80.20) 6. Other superficial bite of lower leg (916.8) (S80.879A) Past Medical History 1. History of Abnormal mammogram (793.80) (R92.8) 2. History of Elevated blood pressure 3. History of Flank pain (789.09) (R10.9) 4. History of herpes zoster (V12.09) (Z86.19) 5. History of Lipid screening (V77.91) (Z13.220) 6. History of Lung nodule seen on imaging study (793.11) (R91.1) 7. History of Screening for hypothyroidism (V77.0) (Z13.29) [...] No illicit drug use ?? 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 Social alcohol use (Z78.9) Current Meds 1. ClonazePAM 1 MG Oral Tablet; TAKE 1 TABLET Bedtime; Therapy: 61Rqw5936 to (Evaluate:53Eah0218) Requested for: 08Oct2016; Last Rx:08Oct2016 Ordered 2. Sulfamethoxazole-Trimethoprim 800-160 MG Oral Tablet; TAKE 1 TABLET TWICE DAILY; Therapy: 21Oct2016 to (Evaluate:28Oct2016) Requested for: 21Oct2016; Last Rx:21Oct2016 Ordered 3. Tamoxifen Citrate 20 MG Oral Tablet; TAKE 1 TABLET DAILY; Therapy: 09Zqz7474 to Recorded 4. Venlafaxine HCl ER 150 MG Oral Capsule Extended Release 24 Hour; TAKE ONE CAPSULE BY MOUTH EVERY DAY; Therapy: 08Oct2016 to (Evaluate:31Btm2843) Recorded Allergies 1. No Known Drug Allergies Vitals Recorded: 24Oct2016 03:26PM Temperature 98.2 F Heart Rate 66 Systolic 124 Diastolic 68 O2 Saturation 98, RA Weight 198 lb BMI Calculated 31.96 BSA Calculated 1.99 Physical Exam Constitutional General appearance: No acute distress, well appearing and well nourished. Eyes Conjunctiva and lids: No swelling, erythema or discharge. Ears, Nose, Mouth, and Throat External inspection of ears and nose: Normal. Oropharynx: Normal with no erythema, edema, exudate or lesions. Pulmonary Respiratory effort: No increased work of breathing or signs of respiratory distress. Auscultation of lungs: Clear to auscultation. Cardiovascular Auscultation of heart: Normal rate and rhythm, normal S1 and S2, without murmurs. Examination of extremities for edema and/or varicosities: Normal. Abdomen Abdomen: Non-tender, no masses. Lymphatic Palpation of lymph nodes in neck: No lymphadenopathy. Musculoskeletal Gait and station: Normal. Inspection/palpation of joints, bones, and muscles: Normal. Skin See HPI. Neurologic Cranial nerves: Cranial nerves 2-12 intact. Reflexes: 2+ and symmetric. Psychiatric Orientation to person, place, and time: Normal. Mood and affect: Normal. Results/Data CT CHEST W/O 18Oct2016 04:12PM Bailey Verde Test Name Result Flag Reference CT CHEST W/O (Report) MILAGROS CERVANTES ADMIT/SERVICE DATE: 10/18/16 ACCT: [id number] DISCHARGE DATE: : 1965 SEX: F ORD SITE: [facility] PT TYPE: REG CLI ORDERING MD: BAILEY VERDE [facility] STUDY DATE REPORT # ORDER # EXT ORDER ID 10/18/16 [id number] PROC CODE: CHSTWOC PROCEDURE DESCRIPTION: CT CHEST WO IMAGING STUDIES: CT CHEST WO DATE: 10/18/2016 11:13 AM HISTORY: OTHER - CT, R91.1 51-YEAR-OLD FEMALE FOR FOLLOW-UP OF LUNG NODULE. 4.5 MM NODULE NOTED IN THE LINGULA ON 03/26/2016. COMPARISON: CT ABDOMEN PELVIS WITH CONTRAST 03/26/2016. DISCUSSION: CT CHEST WITHOUT INTRAVENOUS CONTRAST. CORONAL AND SAGITTAL RECONSTRUCTIONS. AUTOMATED EXPOSURE CONTROL WITH RADIATION DOSE REDUCTION. HEART SIZE NORMAL. NO PERICARDIAL EFFUSION. NO AORTIC ANEURYSM. NORMAL CALIBER PULMONARY ARTERIES. NO MEDIASTINAL OR AXILLARY ADENOPATHY. NORMAL THYROID. 3-4 MM NODULE VERSUS BRANCHING VESSEL IN THE LINGULA IS LESS CONSPICUOUS ON CURRENT EXAM AXIAL IMAGE 57 COMPARED TO PRIOR EXAM AXIAL IMAGE 2 NO FURTHER FOLLOW-UP OF THIS LESION IS REQUIRED. NO NEW PULMONARY NODULE. MILD SCARRING IN THE INFERIOR LINGULA AND IN THE LEFT LOWER LOBE. NO ACUTE INFILTRATE OR CONSOLIDATION. NO PLEURAL EFFUSION OR PNEUMOTHORAX. DEGENERATIVE CHANGES SPINE AND SHOULDERS. AIR WITHIN THE LEFT GLENOHUMERAL JOINT. DIFFUSE FATTY INFILTRATION LIVER. CHOLELITHIASIS. NO APPRECIABLE ACUTE CHOLECYSTITIS. NO ACUTE ABNORMALITY IN THE UPPER ABDOMEN. IMPRESSION: 1. LESS CONSPICUOUS NODULE/SCARRING IN THE LINGULA. NO FURTHER FOLLOW-UP IS REQUIRED. 2. NO ACUTE INFILTRATE OR CONSOLIDATION. 3. FATTY INFILTRATION LIVER. CHOLELITHIASIS. ELECTRONICALLY SIGNED BY KAREN MARR MD Assessment 1. Other superficial bite of lower leg (916.8) (S80.369A) 2. Anxiety (300.00) (F41.9) Discussion/Summary As I saw the situation, I think she is healing and I told her that I would rather wait a little longer, continue with the antibiotics and maybe she can see Kallie next week. So, she stood up and got very upset and she said that if I was not going to do anything, why she was here visiting and she thought that Kallie told her to come was because something will be done. At the end when she was leaving, she was very upset and agitated. She was saying that I guess I should have waited for my breast cancer too. I do not know what she means. I know she had breast cancer in the past, she was very disturbed. She could not agree with my approach. She is still taking antibiotics. I encouraged her to continue with that and I encouraged her to see Kallie next week. Signatures Electronically signed by : Heraclio Myers M.D.; Oct 25 2016 8:01AM IT ARCHITECT (Author) ARCHITECT documented in this encounter Plan of Treatment Not on file documented as of this encounter Visit Diagnoses Not on filedocumented in this encounter
--- OUTSIDE RECORDS SUMMARY | 2024-04-25 14:16 | XMS_ITS | Encounter Summary ---
Author Organization [facility] Address [address] [place] [address]. [place], [place] [address] [place] [address] Care Team Providers Care Accounts Payable Payroll Coordinator Name Role Phone Unavailable Primary Care Provider Unavailabl e Encounter Details Date Type Department Care Team (Late st Contact Info) Description 10/21/[address] [facility] Family & Internal Medicine [address] [phone] Bailey Verde APNP Social History [...] Sign Reading Time Taken Comments Blood Pressure 108/72 10/21/2016 1:01 PM CDT Pulse 71 10/21/2016 1:01 PM CDT Temperature - - Respiratory Rate - - Oxygen Saturation - - Inhaled Oxygen Concentration - - Weight 89.8 kg (198 lb) 10/21/2016 1:01 PM CDT Height 167.6 cm (5' 6 ) 10/21/2016 1:01 PM CDT Body Mass Index 31.96 10/21/2016 1:01 PM CDT documented in this encounter Progress Notes * WHITNEY Daley - 10/21/2016 12:40 PM CDT Reason For Visit Reason For Visit: Acute Visit Chief Complaint pt c/o round red sore on left calf, blister popped, area is scabbed over. blister noticed last Friday. History of Present Illness Insect Bite/Sting (Brief): [...] Depression (311) (F32.9) 5. Gallstones (574.20) (K80.20) Past Medical History 1. History of Abnormal [...] illicit drug use ?? 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 Social alcohol use (Z78.9) Current Meds 1. ClonazePAM 1 MG Oral Tablet; TAKE 1 TABLET Bedtime; Therapy: 75Eyv8853 to (Evaluate:69Den9138) Requested for: 08Oct2016; Last Rx:08Oct2016 Ordered Rx By: Bailey Verde; Dispense: 30 Days ; #:30 Tablet; Refill: 2; For: Anxiety; ASHA = N; Print Rx 2. Tamoxifen Citrate 20 MG Oral Tablet; TAKE 1 TABLET DAILY; Therapy: 80Mtx3317 to Recorded Dispense: 0 Days ; #: Sufficient Tablet; Refill: 0; For: PMH: Abnormal mammogram; ASHA = N; Record; Last Updated By: Mikala Traylor; 11/17/2015 8:41:46 AM 3. Venlafaxine HCl ER 150 MG Oral Capsule Extended Release 24 Hour; TAKE ONE CAPSULE BY MOUTH EVERY DAY; Therapy: 08Oct2016 to (Evaluate:39Hpf9101) Recorded Dispense: 90 Days ; #:90 Capsule Extended Release 24 Hour; Refill: 1; For: Depression; ASHA = N; Record; Last Updated By: Mikala Traylor; 10/08/2016 7:42:55 AM Allergies 1. No Known Drug Allergies Recorded By: Mikala Traylor; 07/13/2015 7:08:04 AM Vitals Recorded: 21Oct2016 01:01PM Temperature 97.7 F Heart Rate 71 Respiration 16 Systolic 108 Diastolic 72 O2 Saturation 98 Height 5 [...] (Report) MILAGROS CERVANTES ADMIT/SERVICE DATE: 10/18/16 ACCT: [id number] DISCHARGE DATE: : 1965 SEX: F ORD SITE: [facility] PT TYPE: REG CLI ORDERING MD: BAILEY VERDE [facility] STUDY DATE REPORT # ORDER # EXT ORDER ID 10/18/16 [id number] PROC CODE: CHSTWOC PROCEDURE DESCRIPTION: CT CHEST [...] Other superficial bite of lower leg (916.8) (D50.874V) Plan Other superficial bite of lower leg 1. Sulfamethoxazole-Trimethoprim 800-160 MG Oral Tablet; TAKE 1 TABLET TWICE DAILY Rx By: Bailey Verde; Dispense: 7 Days ; #:14 Tablet; Refill: 0; For: Other superficial bite of lower leg; ASHA = N; Verified Transmission to [facility] # [id number]; Last Updated By: Cheryl Philippe; 10/21/2016 1:25:33 PM Discussion/Summary Insect bite to left lower posterior leg- Will treat with Bactrim DS and topically with HARINDER, keepingcovered. Will recheck on if no better or worsening. FU PRN Signatures Electronically signed by : Bailey Verde NP; Oct 21 2016 1:26PM PREASSEMBLER PRINTED CIRCUIT BOARD (Author) documented in this encounter Plan of Treatment Not on file documented as of this encounter Visit Diagnoses Not on filedocumented in this encounter
--- OUTSIDE RECORDS SUMMARY | 2024-04-25 14:16 | XMS_ITS | Encounter Summary ---
Author Organization [facility] Address [address] [place] [address]. [place] [address] Care Team Providers Care Provider Relations Specialist Name Role Phone Unavailable Primary Care Provider Unavailabl e Encounter Details Date Type Department Care Team (Latest Contact Info) Description 10/18/2016 Abstract [facility] Bailey Pleitez APNP Social History Tobacco Use Types Packs/Day Years Used Date Smoking Tobacco: Never Assessed Comments Unknown Sex and Gender Information Value Date Recorded Sex Assigned at Not on file Legal Sex Female 7:16 PM CDT Gender Identity Not on file Sexual Orientation Not on file documented as of this encounter Progress Notes * WHITNEY Daley - 10/18/2016 4:12 PM CDT Message Nodule decreased and less obvious. No further follow up recommended Verified Results CT CHEST W/O 18Oct2016 04:12PM Bailey Pleitez Test Name Result Flag Reference CT CHEST W/O (Report) MILAGROS CERVANTES ADMIT/SERVICE DATE: 10/18/16 ACCT: [id number] DISCHARGE DATE: : 1965 SEX: F ORD SITE: [facility] PT TYPE: REG CLI ORDERING MD: BAILEY PLEITEZ [facility] STUDY DATE REPORT # ORDER # EXT ORDER ID 10/18/16 [id number] PROC CODE: CHSTWOC PROCEDURE DESCRIPTION: CT CHEST [...] CHOLELITHIASIS. ELECTRONICALLY SIGNED BY KAREN MARR MD documented in this encounter Plan of Treatment Not on file documented as of this encounter Procedures Procedure Name Priority Date/Time Associated Diagnosis Comments CT CHEST WO CON Routine 10/18/2016 4:12 PM CDT documented in this encounter Results * CT CHEST WO CON (10/18/2016 4:12 PM CDT) Anatomical Region Laterality Modality Chest Computed Tomogra phy 10/18/2016 4:12 PM CDT 10/18/2016 4:12 PM CDT Narrative 10/19/2016 7:28 AM CDT MILAGROS CERVANTES ? ADMIT/SERVICE DATE: 10/18/16 ?? ACCT: [id number] ?DISCHARGE DATE: ?? : 1965 ??SEX: F ?ORD SITE: [facility] ?? PT TYPE: REG CLI ? ORDERING MD: BAILEY PLEITEZ ACNP- ? STUDY DATE ? REPORT # ?ORDER # ? EXT ORDER ID ?? 10/18/16 ? [id number] ? [id number] ?[id number] ? PROC CODE: ? CHSTWOC ? PROCEDURE DESCRIPTION: ?? CT CHEST WO ? IMAGING STUDIES: ??CT CHEST WO ? DATE: ??10/18/2016 11:13 AM ? HISTORY: ??OTHER - CT, R91.1 ?? 51-YEAR-OLD FEMALE FOR FOLLOW-UP OF LUNG NODULE. 4.5 MM NODULE NOTED IN THE LINGULA ON 03/26/2016. ? COMPARISON: ??CT ABDOMEN PELVIS WITH CONTRAST 03/26/2016. ? DISCUSSION: ?? CT CHEST WITHOUT INTRAVENOUS CONTRAST. CORONAL AND SAGITTAL RECONSTRUCTIONS. AUTOMATED EXPOSURE CONTROL WITH RADIATION DOSE REDUCTION. ? HEART SIZE NORMAL. NO PERICARDIAL EFFUSION. ?? NO AORTIC ANEURYSM. NORMAL CALIBER PULMONARY ARTERIES. ? NO MEDIASTINAL OR AXILLARY ADENOPATHY. NORMAL THYROID. ? 3-4 MM NODULE VERSUS BRANCHING VESSEL IN THE LINGULA IS LESS CONSPICUOUS ON CURRENT EXAM AXIAL IMAGE 57 COMPARED TO PRIOR EXAM AXIAL IMAGE 2 NO FURTHER FOLLOW-UP OF THIS LESION IS REQUIRED. ?? NO NEW PULMONARY NODULE. ?? MILD SCARRING IN THE INFERIOR LINGULA AND IN THE LEFT LOWER LOBE. ?? NO ACUTE INFILTRATE OR CONSOLIDATION. NO PLEURAL EFFUSION OR PNEUMOTHORAX. ? DEGENERATIVE CHANGES SPINE AND SHOULDERS. AIR WITHIN THE LEFT GLENOHUMERAL JOINT. ? DIFFUSE FATTY INFILTRATION LIVER. CHOLELITHIASIS. NO APPRECIABLE ACUTE CHOLECYSTITIS. ?? NO ACUTE ABNORMALITY IN THE UPPER ABDOMEN. ? IMPRESSION: ? 1. LESS CONSPICUOUS NODULE/SCARRING IN THE LINGULA. NO FURTHER FOLLOW-UP IS REQUIRED. ?? 2. NO ACUTE INFILTRATE OR CONSOLIDATION. ?? 3. FATTY INFILTRATION LIVER. CHOLELITHIASIS. ? ELECTRONICALLY SIGNED BY KAREN MARR MD Procedure Note , Mandi Clark MD - 02/27/2018 MILAGROS CERVANTES ADMIT/SERVICE DATE:10/18/16 ACCT: [id number] DISCHARGE DATE: : 1965 SEX: F ORD SITE: [facility] PT TYPE: REG CLI ORDERING MD:BAILEY PLEITEZ ACNP-BC STUDY DATE REPORT # ORDER # EXT ORDER ID 10/18/16 [id number] PROC CODE: CHSTWOC PROCEDURE DESCRIPTION: CT CHEST WO IMAGING STUDIES: CT CHEST WO DATE: 10/18/2016 11:13 AM HISTORY: OTHER - CT, R91.1 51-YEAR-OLD FEMALE FOR FOLLOW-UP OF LUNGNODULE. 4.5 MM NODULE NOTED IN THE LINGULA ON 03/26/2016. COMPARISON: CT ABDOMEN PELVIS WITH CONTRAST 03/26/2016. DISCUSSION: CT CHEST WITHOUT INTRAVENOUS CONTRAST. CORONAL AND SAGITTALRECONSTRUCTIONS. AUTOMATED EXPOSURE CONTROL WITH RADIATION DOSE REDUCTION. HEART SIZE NORMAL. NO PERICARDIAL EFFUSION. NO AORTIC ANEURYSM. NORMAL CALIBER PULMONARY ARTERIES. NO MEDIASTINAL OR AXILLARY ADENOPATHY. NORMAL THYROID. 3-4 MM NODULE VERSUS BRANCHING VESSEL IN THE LINGULA IS LESS CONSPICUOUSON CURRENT EXAM AXIAL IMAGE 57 COMPARED TO PRIOR EXAM AXIAL IMAGE 2 NO FURTHER FOLLOW-UP OF THISLESION IS REQUIRED. NO NEW PULMONARY NODULE. MILD SCARRING IN THE INFERIOR LINGULA AND IN THE LEFT LOWER LOBE. NO ACUTE INFILTRATE OR CONSOLIDATION. NO PLEURAL EFFUSION ORPNEUMOTHORAX. DEGENERATIVE CHANGES SPINE AND SHOULDERS. AIR WITHIN THE LEFTGLENOHUMERAL JOINT. DIFFUSE FATTY INFILTRATION LIVER. CHOLELITHIASIS. NO APPRECIABLE ACUTECHOLECYSTITIS. NO ACUTE ABNORMALITY IN THE UPPER ABDOMEN. IMPRESSION: 1. LESS CONSPICUOUS NODULE/SCARRING IN THE LINGULA. NO FURTHER FOLLOW-UPIS REQUIRED. 2. NO ACUTE INFILTRATE OR CONSOLIDATION. 3. FATTY INFILTRATION LIVER. CHOLELITHIASIS. ELECTRONICALLY SIGNED BY KAREN MARR MD Bailey OLSON CT Final Result documented in this encounter Visit Diagnoses Not on filedocumented in this encounter
--- OUTSIDE RECORDS SUMMARY | 2024-04-25 14:17 | XMS_ITS | Encounter Summary ---
Author Organization [facility] Address [address] [place] [address]. [place] [address] Care Team Providers Care Reconditioner Name Role Phone Unavailable Primary Care Provider Unavailabl e Encounter Details Date Type Department Care Team (Latest Contact Info) Description 08/29/2016 Abstract [facility] Bailey Pleitez APNP Social History [...]
--- OUTSIDE RECORDS SUMMARY | 2024-04-25 14:17 | XMS_ITS | Encounter Summary ---
Author Organization [facility] Address [address] [place] [address]. [place] [address] Care Team Providers Care Collision Repair Technician Name Role Phone Unavailable Primary Care Provider Unavailabl e Encounter Details Date Type Department Care Team (Latest Contact Info) Description 04/18/2016 Abstract [facility] Medical [facility] Social History Tobacco Use [...]
--- OUTSIDE RECORDS SUMMARY | 2024-04-25 14:17 | XMS_ITS | Encounter Summary ---
Author Organization [facility] Address [address] [place] [address]. [place] [address] Care Team Providers Care Sales Program Coordinator Name Role Phone Unavailable Primary Care Provider Unavailabl e Encounter Details Date Type Department Care Team (Latest Contact Info) Description 04/08/2016 Abstract [facility] Social History Tobacco Use [...]
--- OUTSIDE RECORDS SUMMARY | 2024-04-25 14:17 | XMS_ITS | Encounter Summary ---
Author Organization [facility] Address [address] [place] [address]. [place], [place] [address] [place] [address] Care Team Providers Care Cable Reeler Name Role Phone Unavailable Primary Care Provider Unavailabl e Encounter Details Date Type Department Care Team (Late st Contact Info) Description 03/26/2016 Abstract [facility] Medical [facility] General Surgery [facility] [address] [address], [address] [place] [address] [place] [address] [address] [place] [address] Social History Tobacco Use Types [...] - Inhaled Oxygen Concentration - - Weight 88.9 kg (196 lb) 03/26/2016 11:51 AM CONDITIONER TUMBLER Height 167.6 cm (5' 6 ) 03/26/2016 11:51 AM CONDITIONER TUMBLER Body Mass Index 31.64 03/26/2016 11:51 AM CONDITIONER TUMBLER documented in this encounter Progress Notes * Harry Hair MD - 03/26/2016 10:30 AM CST Reason For Visit Consultation Visit Chief Complaint PCP DR. GALAVIZ/BAILEY VERDE C/O RIGHT FLANK PAIN FOR APPRX 6 DAYS PAIN IS A 10/ STATES SHE WAS SEEN IN ER History of Present Illness HPI Free Text: Patient is a 50 yo WF who presented with a 6 day hx of right flank pain , intermittent, which she describes as 10/10 but is relieved with norco. She was seen in the ER and a non contrast CT abdomen showed cholelithiasis but no evidence of acute cholecystitis . Her lab work was unremarkable but she did have 0-5 wbc's and 0- 5 rbc's. PMHx unremarkable. Active Problems 1. Anxiety (300.00) (F41.9) 2. Benign essential HTN (401.1) (I10) 3. BMI 32.0-32.9,adult (V85.32) (Z68.32) 4. Depression (311) (F32.9) 5. Flank pain (789.09) (R10.9) 6. Gallstones (574.20) (K80.20) Past Medical History 1. History of Abnormal mammogram (793.80) (R92.8) 2. History of Elevated blood pressure (401.9) (I10) Surgical History 1. History of Breast Surgery [...] two glasses of tea per day ? Never a smoker ?? Social alcohol use (Z78.9) Current Meds 1. Ciprofloxacin HCl - 500 MG Oral Tablet; Therapy: 22Mar2016 to Recorded Dispense: 7 Days ; #:14 TABS; Refill: 0; ASHA = N; Record; Last Updated By: Sheree Hung; 03/26/2016 11:59:08 AM 2. ClonazePAM 0.5 MG Oral Tablet; TAKE 1 TABLET BY MOUTH EVERY NIGHT AT BEDTIME; Therapy: [id number] to (Evaluate:[id number]) Requested for: 12Mar2016; Last Rx:12Mar2016 Ordered Rx By: Bailey Verde; Dispense: 30 Days ; #:30 TAB; Refill: 0; For: Anxiety; ASHA = N; Print Rx; Last Updated By: Mikala Traylor; 03/12/2016 3:53:51 PM 3. DocQLace 100 MG Oral Capsule; Therapy: 22Mar2016 to Recorded Dispense: 30 Days ; #:60 CAPS; Refill: 0; ASHA = N; Record; Last Updated By: Sheree Hung; 03/26/2016 11:59:08 AM 4. HydroCHLOROthiazide 12.5 MG Oral Tablet; TAKE 1 TABLET DAILY; Therapy: 14Aug2015 to (Evaluate:02Apr2016) Requested for: 05Oct2015; Last Rx:05Oct2015 Ordered Rx By: Bailey Verde; Dispense: 30 Days ; #:30 Tablet; Refill: 5; For: Benign essential HTN; ASHA = N; Verified Transmission to [facility]; Last Updated By: Cheryl Philippe; 10/05/2015 9:17:19 AM 5. Hydrocodone-Acetaminophen 10-325 MG Oral Tablet; Therapy: 22Mar2016 to Recorded Dispense: 10 Days ; #:30 TABS; Refill: 0; ASHA = N; Record; Last Updated By: Sheree Hung; 03/26/2016 11:59:08 AM 6. Milk of Magnesia 1200 MG/15ML Oral Suspension; GARRETT LQ AND TK 30 ML PO HS; Therapy: 22Mar2016 to Recorded Rx By: ANA MARIA CORBETT; Dispense: 11 Days ; #:355 SUSP; Refill: 0; ASHA = N; Record; Last Updated By: Sheree Hung; 03/26/2016 11:59:08 AM 7. MiraLax Oral Packet; MIX 1 PACKET IN 8 OUNCES OF ORANGE JUICE AND DRINK ONCE DAILY UNTIL HAS A BOWEL MOVEMENT; Therapy: 25Mar2016 to (Evaluate:[id number]) Requested for: 25Mar2016; Last Rx:25Mar2016 Ordered Rx By: Ganga Galaviz; Dispense: 24 Days ; #:1 X 24 Packet Box; Refill: 0; For: Flank pain; ASHA =N; [facility] [id number]; Last Updated By: Cheryl Philippe; 03/25/2016 8:18:16 AM 8. MiSOPROStol 200 MCG Oral Tablet; Therapy: 12Mar2016 to Recorded Dispense: 1 Days ; #:2 TABS; Refill: 0; ASHA = N; Record; Last Updated By: Sheree Hung; 03/26/2016 11:59:08 AM 9. Ondansetron 8 MG Oral Tablet Dispersible; Therapy: 17Oct2015 to Recorded Dispense: 10 Days ; #:30 TBDP; Refill: 0; ASHA = N; Record; Last Updated By: Sheree Hung; 03/26/2016 11:59:08 AM 10. Oxycodone-Acetaminophen 5-325 MG Oral Tablet; TAKE 1 TABLET EVERY 4 HOURS NEEDED FOR PAIN; Therapy: 22Mar2016 to (Evaluate:[id number]) Recorded Rx By: Dr Jean Marie Reynoso; Dispense: 30 Days ; #:180 Tablet; Refill: 0; ASHA = N; Record; Last Updated By: Mikala Traylor; 03/22/2016 4:18:28 PM 11. Potassium Chloride ER 10 MEQ Oral Capsule Extended Release; Therapy: 22Mar2016 to Recorded Dispense: 10 Days ; #:10 CPCR; Refill: 0; ASHA = N; Record; Last Updated By: Sheree Hung; 03/26/2016 11:59:08 AM 12. Tamoxifen Citrate 20 MG Oral Tablet; TAKE 1 TABLET DAILY; Therapy: [id number] to Recorded Dispense: 0 Days ; #: Sufficient Tablet; Refill: 0; For: PMH: Abnormal mammogram; ASHA = N; Record; Last Updated By: Mikala Traylor; 11/17/2015 8:41:46 AM 13. Venlafaxine HCl ER 150 MG Oral Capsule Extended Release 24 Hour; TAKE 1 CAPSULE ONCE DAILY WITH FOOD; Therapy: 27Feb2016 to (Evaluate:27May2016) Requested for: 27Feb2016; Last Rx:27Feb2016 Ordered Rx By: Bailey Verde; Dispense: 30 Days ; #:30 Capsule Extended Release 24 Hour; Refill: 2; For: Anxiety; ASHA = N; Verified Transmission to [facility] [id number]; Last Updated By: Cheryl Philippe; 03/26/2016 11:59:08 AM Allergies 1. No Known Drug Allergies Recorded By: Mikala Traylor; 07/13/2015 7:08:04 AM Vitals Recorded: 26Mar2016 11:51AM Height 5 ft 6 in Weight 196 lb BMI Calculated 31.64 BSA Calculated 1.98 Physical Exam Neck - Exam: Supple, symmetric, trachea midline, no masses. Pulmonary - Respiratory effort: No increased work of breathing or signs of respiratory distress. Auscultation of lungs: Clear to auscultation. Cardiovascular - Auscultation of heart: Normal rate and rhythm, normal S1 and S2, no murmurs. Abdomen - Abdomen: Non-tender, no masses. Liver and spleen: No hepatomegaly or splenomegaly. Additional Findings - No CVA tenderness. Plan Anxiety 1. Venlafaxine HCl ER 150 MG Oral Capsule Extended Release 24 Hour; TAKE 1 CAPSULE ONCE DAILY WITH FOOD Rx By: Bailey Verde; Dispense: 30 Days ; #:30 Capsule Extended Release 24 Hour; Refill: 2; For: Anxiety; ASHA = N; Verified Transmission to [employer] # [id number]; Last Updated By: Sheree Hung; 03/26/2016 11:59:08 AM Discussion/Summary Recommend repaeat CT scan of abdomen and pelvis with contrast. CT was done and reviewed with DR Brennan She had a a small pulmonary nodule which needs follow up. No evidence of kidney stone or acute cholecystitis. Recommend HIDA scan and further recommendations to follow. Signatures Electronically signed by : Harry Hair M.D.; Mar 26 2016 4:06PM CONDITIONER TUMBLER (Author) documented in this encounter Plan of Treatment Not on file documented as of this encounter Visit Diagnoses Not on filedocumented in this encounter
--- OUTSIDE RECORDS SUMMARY | 2024-04-25 14:17 | XMS_ITS | Encounter Summary ---
Author Organization [facility] Address [address] [place] [address]. [place] [address] Care Team Providers Care Executive Secretary Name Role Phone Unavailable Primary Care Provider Unavailabl e Encounter Details Date Type Department Care Team (Latest Contact Info) Description 04/11/2016 Abstract [facility] Medical Group Social History Tobacco Use Types Packs/Day Years Used Date Smoking Tobacco: Never Assessed Comments Unknown Sex and Gender Information Value Date Recorded Sex Assigned at Not on file Legal Sex Female 7:16 PM CDT Gender Identity Not on file Sexual Orientation Not on file documented as of this encounter Progress Notes * Generic Conversion MD Domenic - 04/11/2016 4:36 PM CST Message Recorded as Task Date: 04/10/2016 11:47 AM, Created By: Bre Callaway Task Name: Medical Complaint Callback Assigned To: [facility] Nurse Team Regarding Patient: Milagros Torres, Status: Active Comment: Bre Callaway - 10 Apr 2016 11:47 AM TASK CREATED Caller: Self; Medical Complaint; patient states she still has a rash, that doesn't seem improved, after finishing the meds she was given for shingles. Today was her last dose. She would like to know if she has to wait for so many days after taking the meds to see improvement or if she needs something else? She did state the pain was better. Mikala Traylor - 11 Apr 2016 4:36 PM TASK EDITED per Dr Galaviz give med some time. pt informed and vocalized understanding. Signatures Electronically signed by : Mikala Traylor MA; Apr 11 2016 4:36PM LACE PINNER (Author) documented in this encounter Plan of Treatment Not on file documented as of this encounter Visit Diagnoses Not on filedocumented in this encounter
--- OUTSIDE RECORDS SUMMARY | 2024-04-25 14:17 | XMS_ITS | Encounter Summary ---
Author Organization [facility] Address [address] [place] [address]. [place], [place] [address] [place] [address] Care Team Providers Care Blogs Manager Name Role Phone Unavailable Primary Care Provider Unavailabl e Encounter Details Date Type Department Care Team (Latest Contact Info) Description 03/27/2016 Abstract [facility] [place] [address] [address] Social History Tobacco Use Types Packs/Day [...] Procedure Name Priority Date/Time Associated Diagnosis Comments NM HEPATOBILIARY SCAN W/GB EJECTION FRACTION Routine 03/27/2016 12:31 PM OUTREACH REPRESENTATIVE documented in this encounter Results * NM HEPATOBILIARY SCAN W/GB EJECTION FRACTION (03/27/2016 12:31 PM OUTREACH REPRESENTATIVE) Anatomical Region Laterality Modality Abdomen Nuclear Medicine 03/27/2016 12:3 1 PM OUTREACH REPRESENTATIVE 03/27/2016 12:31 PM OUTREACH REPRESENTATIVE Narrative 03/27/2016 12:36 PM OUTREACH REPRESENTATIVE MILAGROS CERVANTES ? ADMIT/SERVICE DATE: 03/27/16 ?? ACCT: [id number] ?DISCHARGE DATE: ?? : 1965 ??SEX: F ?ORD SITE: [facility] ?? PT TYPE: REG CLI ? ORDERING MD: HARRY PICKARD MD ? STUDY DATE ? REPORT # ?ORDER # ? EXT ORDER ID ?? 03/27/16 ? [id number] ? [id number] ?[id number] ? PROC CODE: ? HPTODCTSPH ? PROCEDURE DESCRIPTION: ?? NM HEPATOBILIARY DUCTS W PHARM ? IMAGING STUDIES: ??NM HEPATOBILIARY DUCTS W PHARM ?DATE: ??03/27/2016 10:29 AM ? INDICATION: ??OTHER - NM ABDOMINAL PAIN ??. CHOLELITHIASIS. ? COMPARISON: ??NO PRIOR STUDIES FOR COMPARISON. ? 6.1 MCI TECHNETIUM 99M CHOLETEC, 0.7UG CCK. ? IMPRESSION: ? 1. NORMAL UPTAKE OF RADIONUCLIDE WITHIN THE LIVER. GALLBLADDER IS SEEN 30 MINUTES. ? 2. ??GALLBLADDER EJECTION FRACTION MEASURES 94%. NORMAL IS ABOVE 35% ? 3. NO EVIDENCE OF CYSTIC DUCT OR COMMON BILE DUCT OBSTRUCTION. ? ELECTRONICALLY SIGNED BY Huey CAMACHO MD ? Procedure Note Mandi Sheth MD - 02/26/2018 MILAGROS CERVANTES ADMIT/SERVICE DATE:03/27/16 ACCT: [id number] DISCHARGE DATE: : 1965 SEX: F ORD SITE: [facility] PT TYPE: REG CLI ORDERING MD: AKIKO PICKARD MD STUDY DATE REPORT # ORDER # EXT ORDER ID 03/27/16 [id number] PROC CODE: HPTODCTSPH PROCEDURE DESCRIPTION: NM HEPATOBILIARY DUCTS W PHARM IMAGING STUDIES: NM HEPATOBILIARY DUCTS W PHARM DATE: 03/27/2016 10:29 AM INDICATION: OTHER - NM ABDOMINAL PAIN . CHOLELITHIASIS. COMPARISON: NO PRIOR STUDIES FOR COMPARISON. 6.1 MCI TECHNETIUM 99M CHOLETEC, 0.7UG CCK. IMPRESSION: 1. NORMAL UPTAKE OF RADIONUCLIDE WITHIN THE LIVER. GALLBLADDER IS SEEN 30MINUTES. 2. GALLBLADDER EJECTION FRACTION MEASURES 94%. NORMAL IS ABOVE 35% 3. NO EVIDENCE OF CYSTIC DUCT OR COMMON BILE DUCT OBSTRUCTION. ELECTRONICALLY SIGNED BY Huey CAMACHO MD us Harry Pickard MD [facility] Final Result documented in this encounter Visit Diagnoses Not on filedocumented in this encounter
--- OUTSIDE RECORDS SUMMARY | 2024-04-25 14:17 | XMS_ITS | Encounter Summary ---
Author Organization [facility] Address [address] [place] [address]. [place], [place] [address] [place] [address] Care Team Providers Care Vacuum Worker Name Role Phone Unavailable Primary Care Provider Unavailabl e Encounter Details Date Type Department Care Team (Late st Contact Info) Description 03/26/2016 Abstract [facility] [id number] [place] [address] Social History Tobacco Use Types Packs/Day Years Used Date Smoking Tobacco: Never Assessed Comments Unknown Sex and Gender Information Value Date Recorded Sex Assigned at Not on file Legal Sex Female 7:16 PM CDT Gender Identity Not on file Sexual Orientation Not on file documented as of this encounter Plan of Treatment Not on file documented as of this encounter Visit Diagnoses Diagnosis Abdominal pain Abdominal pain, unspecified site documented in this encounter
--- OUTSIDE RECORDS SUMMARY | 2024-04-25 14:17 | XMS_ITS | Encounter Summary ---
Author Organization [facility] Address [address] [place] [address]. [place] [address] Care Team Providers Care Measurement Superintendent Name Role Phone Unavailable Primary Care Provider Unavailabl e Encounter Details Date Type Department Care Team (Latest Contact Info) Description 10/08/2016 Abstract [facility] Medical Group Bailey Pleitez APNP Social History [...] Procedure Name Priority Date/Time Associated Diagnosis Comments LIPID W/CALC LDL Routine 10/08/2016 7:40 AM CDT TSH W/REFLEX Routine 10/08/2016 7:40 AM CDT CBC W/DIFF AUTOMATED Routine 10/08/2016 7:40 AM CDT documented in this encounter Results * TSH W/REFLEX (SNS) (10/08/2016 7:40 AM CDT) TSH 4.52 0.35 - 4.94 uIU/mL [facility] TO EPIC CONVERSION Comment:Result Comment: FREE T4 NOT INDICATED 10/08/2016 7:40 AM CDT 10/08/2016 7:40 AM CDT Narrative [facility] TO EPIC CONVERSION - 10/08/2016 1:50 PM CDT Result Communication: Call patient with results [facility] Final Result [facility] TO EPIC CONVERSION * (ABNORMAL) LIPID W/CALC LDL (10/08/2016 7:40 AM CDT) [facility] CHOLESTEROL 232(H) <200 MG/DL [facility] TO EPIC CONVERSION TRIGLYCERIDES 187(H) <150 MG/DL [facility] TO EPIC CONVERSION HDL 38(L) >55 MG/DL [facility] T O EPIC CONVERSION LDL (CALCULATED) 156.6(H) <130 MG/L [facility] TO EPIC CONVERSION CHOL/HDL RATIO 6.1 [facility] OUP TO EPIC CONVERSION Comment: Result Comment: ? INTERPRETATION OF RESULTS [employer] RECOMMENDED RANGES ? CHOLESTEROL MG/DL ?LDL MG/DL ?DESIRABLE ? <200 ?<130 ?BORDERLINE ?200-239 ? 130-159 ?HIGH RISK ? >240 ?>160 ?? REFERENCE VALUE FOR HDL CHOLESTEROL ?RISK LEVEL ??MALE MG/DL ? FEMALE MG/DL ?DECREASED ?>45 ?>55 ?AVERAGE ? 45 ? 55 ?INCREASED ?<45 ?<55 10/08/2016 7:40 AM CDT 10/08/2016 7:40 AM CDT Narrative [facility] TO EPIC CONVERSION - 10/08/2016 1:25 PM CDT Result Communication: Call patient with results us [facility] Final Result [facility] TO EPIC CONVERSION * (ABNORMAL) CBC W/DIFF AUTOMATED (10/08/2016 7:40 AM CDT) WBC 4.8 4.4 - 11.0 x10'3/uL [facility] TO EPIC CONVERSION RBC 4.06(L) 4.50 - 5.10 x10'6/uL [facility] TO EPIC CONVERSION HGB 12.8 12.3 - 15.3 G/DL [facility] TO EPIC CONVERSION HCT 37.6 35.9 - 44.6 % [facility] TO EPIC CONVERSION MCV 92.6 80.0 - 96.0 FL [facility] TO EPIC CONVERSION MCH 31.5(H) 25.3 - 30.9 PG [facility] TO EPIC CONVERSION MCHC 34.0 31.0 - 34.1 G/DL [facility] TO EPIC CONVERSION RDW 12.9 12.4 - 15.1 % [facility] TO EPIC CONVERSION PLT 184 151 - 353 x10'3/uL [facility] TO EPIC CONVERSION GLUCOSE 11.6 9.6 - 12.0 FL [facility] TO EPIC CONVERSION BASOPHILS % 0.4 0.0 - 1.3 % [facility] TO EPIC CONVERSION EOSINOPHILS % 1.7 0.0 - 5.6 % [facility] TO EPIC CONVERSION NEUTROPHILS % 51.6 42.1 - 71.9 % [facility] TO EPIC CONVERSION LYMPHOCYTES % 38.6 15.8 - 45.0 % [facility] TO EPIC CONVERSION IMMATURE GRANS % 0.2 0.0 - 0.5 % [facility] TO EPIC CONVERSION ABS. NEUTROPHILS TOTAL 2.47 1.40 - 6.00 x10'3/uL [facility] TO EPIC CONVERSION WBC MORPHOLOGY NORMAL [facility] OUP TO EPIC CONVERSION PLT MORPH. NORMAL [facility] TO EPIC CONVERSION RBC MORPHOLOGY NORMAL [facility] OUP TO EPIC CONVERSION MONOCYTES 7.5 5.7 - 12.5 % [facility] TO EPIC CONVERSION ABS. LYMPHOCYTES 1.85 0.80 - 4.70 x10'3/uL [facility] TO EPIC CONVERSION 10/08/2016 7:40 AM CDT 10/08/2016 7:40 AM CDT Narrative [facility] TO EPIC CONVERSION - 10/08/2016 1:07 PM CDT Result Communication: Call patient with results us [facility] Final Result [facility] TO [facility]IC CONVERSION documented in this encounter Visit Diagnoses Not on filedocumented in this encounter
--- OUTSIDE RECORDS SUMMARY | 2024-04-25 14:17 | XMS_ITS | Encounter Summary ---
Author Organization [facility] Address [address] [place] [address]. [place], [place] [address] [place] [address] Care Team Providers Care Soundscriber Mechanic Name Role Phone Unavailable Primary Care Provider Unavailabl e Encounter Details Date Type Department Care Team (Late st Contact Info) Description 03/25/2016 Abstract [facility] Medical Group Family & Internal Medicine [address] [address] Bailey Pleitez APNP Social History [...]
--- OUTSIDE RECORDS SUMMARY | 2024-04-25 14:17 | XMS_ITS | Encounter Summary ---
Author Organization [facility] Address [address] [place] [address]. [place], [place] [id number] [place] [address] Care Team Providers Care Soil Science Technical Officer Name Role Phone Unavailable Primary Care Provider Unavailabl e Encounter Details Date Type Department Care Team (Late st Contact Info) Description 10/08/2016 Abstract [facility] Family & Internal Medicine [address] [address] Bailey Pleitez APNP Social History [...] Sign Reading Time Taken Comments Blood Pressure 128/70 10/08/2016 7:04 AM CDT Pulse 84 10/08/2016 7:04 AM CDT Temperature - - Respiratory Rate - - Oxygen Saturation - - Inhaled Oxygen Concentration - - Weight 90.7 kg (200 lb) 10/08/2016 7:04 AM CDT Height 167.6 cm (5' 6 ) 10/08/2016 7:04 AM CDT Body Mass Index 32.28 10/08/2016 7:04 AM CDT documented in this encounter Progress Notes * WHITNEY Daley - 10/08/2016 3:30 PM CDT Message No acute findings or changes required in current POC pt informed and vocalized understanding. Verified Results CBC W Differential 08Oct2016 07:40AM Bailey Pleitez Test Name Result Flag Reference WBC 4.8 x10'3/uL 4.4-11.0 RBC 4.06 x10'6/uL L 4.50-5.10 Hemoglobin (HGB) 12.8 G/DL 12.3-15.3 Hematocrit (HCT) 37.6 % 35.9-44.6 Mean Corpuscular Volume (MCV) 92.6 FL 80.0-96.0 Mean Corpuscular Hgb (MCH) 31.5 PG H 25.3-30.9 Mean Corpuscular Hgb Conc (MCH 34.0 G/DL 31.0-34.1 RDW 12.9 % 12.4-15.1 PLATELET COUNT 184 x10'3/uL 151-353 Mean Platelet Volume (MPV) 11.6 FL 9.6-12.0 RBC Morphology NORMAL Platelet Evaluation NORMAL WBC Morphology NORMAL Lymphocytes % (Auto) 38.6 % 15.8-45.0 NEUTROPHILS 51.6 % 42.1-71.9 MONOCYTES 7.5 % 5.7-12.5 Eosinophils % (Auto) 1.7 % 0.0-5.6 Basophils % (Auto) 0.4 % 0.0-1.3 Total Absolute Neutrophils 2.47 x10'3/uL 1.40-6.00 IMMATURE GRANULOCYTES 0.2 % 0.0-0.5 ABS. LYMPHOCYTES 1.85 x10'3/uL 0.80-4.70 Lipid W/ Calculated LDL 08Oct2016 07:40AM Bailey Pleitez Test Name Result Flag Reference CHOLESTEROL 232 MG/DL H <200 TRIGLYCERIDE 187 MG/DL H <150 HDL CHOLESTEROL 38 MG/DL L >55 LDL CALCULATED 156.6 MG/L H <130 CHOL/HDL RATIO 6.1 INTERPRETATION OF RESULTS NHLBI RECOMMENDED RANGES CHOLESTEROL MG/DL LDL MG/DL DESIRABLE <200 <130 BORDERLINE 200-239 130-159 HIGH RISK >240 >160 REFERENCE VALUE FOR HDL CHOLESTEROL RISK LEVEL MALE MG/DL FEMALE MG/DL DECREASED >45 >55 AVERAGE 45 55 INCREASED <45 <55 TSH W Reflex Free T4 08Oct2016 07:40AM Bailey Pleitez Test Name Result Flag Reference TSH w Reflex Free T4 4.52 uIU/mL 0.35-4.94 FREE T4 NOT INDICATED Plan Anxiety ?? ClonazePAM 1 MG Oral Tablet; TAKE 1 TABLET Bedtime Signatures Electronically signed by : Mikala Traylor MA; Oct 08 2016 4:42PM GLUER AND SLICER HAND (Author) * WHITNEY Daley - 10/08/2016 7:00 AM CDT Reason For Visit Chronic Recheck Visit Chief Complaint pt here for f/u visit for anxiety, depression and HTN History of Present Illness PHQ-9 Depression Questionnaire: Over the past 2 weeks, how often have you been bothered by the following problems? 1.) Little interest or pleasure in doing things? Not at all. 2.) Feeling down, depressed or hopeless? Not at all. 3.) Trouble falling asleep or sleeping too much? Several days. 4.) Feeling tired or having little energy? Several days. 5.) Poor appetite or overeating? Not at all. 6.) Feeling bad about yourself, or that you are a failure, or have let yourself or your family down? Not at all. 7.) Trouble concentrating on things, such as reading a newspaper or watching television? Several days. 8.) Moving or speaking so slowly that other people could have noticed, or the opposite, moving or speaking faster than usual? Not at all. 9.) Thoughts that you would be off or of hurting yourself in some way? Not at all. TOTAL SCORE: 3. How difficult have these problems made it for you to do your work, take care of things at home, or get along with people? Not at all. Depression (Follow-Up): The patient states her depression has improved since the last visit. They have had recurrent episodes of major depression. She describes this as moderate in severity. She is also being followed by a counselor. Comorbid Illnesses: anxiety. She has had no significant interval events. Interval Symptoms: stable depression and stable insomnia. Associated symptoms include:. No associated symptoms are reported. Social Support: the patient has good social support. Medications: the patient is adherent with her medication regimen. She denies medication side effects. Hypertension (Follow-Up): The patient presents for follow-up of primary hypertension. The patient states she has been doing well with her blood pressure control since the last visit. She has no comorbid illnesses. She has no significant interval events. Symptoms: The patient is currently asymptomatic. Home monitoring: The patient checks her blood pressure sporadically. Medications: the patient is adherent with her medication regimen. She denies medication side effects. Disease Management: the patient is doing well with her blood pressure goals. The patient is due fora lipid panel. Review of Systems See HPI for pertinent [...] (R92.8) 2. History of Elevated blood pressure Surgical History 1. History of Breast Surgery [...] alcohol use (Z78.9) Current Meds 1. ClonazePAM 0.5 MG Oral Tablet; TAKE 1 TABLET BY MOUTH EVERY NIGHT AT BEDTIME; Therapy: 13Lsi1397 to (Evaluate:[id number]) Requested for: 31Ori7705; Last Rx:20Aug2016 Ordered 2. HydroCHLOROthiazide 12.5 MG Oral Tablet; TAKE 1 TABLET BY MOUTH DAILY; Therapy: 16Idw4525 to (Evaluate:[id number]) Requested for: 27May2016; Last Rx:27May2016 Ordered 3. Milk of Magnesia 1200 MG/15ML Oral Suspension; SHAKE LQ AND TK 30 ML PO HS; Therapy: 22Mar2016 to Recorded 4. Tamoxifen Citrate 20 MG Oral Tablet; TAKE 1 TABLET DAILY; Therapy: 17Nov2015 to Recorded 5. Venlafaxine HCl ER 150 MG Oral Capsule Extended Release 24 Hour; TAKE ONE CAPSULE BY MOUTH EVERY DAY; Therapy: 08Oct2016 to (Evaluate:[id number]) Recorded Allergies 1. No Known Drug Allergies Vitals Recorded: 08Oct2016 07:04AM Temperature 98.1 F Heart Rate 84 Respiration 16 Systolic 128 Diastolic 70 O2 Saturation 98 Height 5 ft 6 in Weight 200 lb BMI Calculated 32.28 BSA Calculated 2 Physical Exam Constitutional General appearance: No acute distress, well appearing and well nourished. Eyes Conjunctiva and lids: No swelling, erythema or discharge. Pupils and irises: Equal, round and reactive to light. Ears, Nose, Mouth, and Throat External inspection of ears and nose: Normal. Otoscopic examination: Tympanic membranes translucent with normal light reflex. Canals patent without erythema. Oropharynx: Normal with no erythema, edema, exudate or lesions. Pulmonary Respiratory effort: No increased work of breathing or signs of respiratory distress. Auscultation of lungs: Clear to auscultation. Cardiovascular Palpation of heart: Normal PMI, no thrills. Auscultation of heart: Normal rate and rhythm, normal S1 and S2, without murmurs. Examination of extremities for edema and/or varicosities: Normal. Abdomen Abdomen: Non-tender, no masses. Liver and spleen: No hepatomegaly or splenomegaly. Lymphatic Palpation of lymph nodes in neck: No lymphadenopathy. Musculoskeletal Gait and station: Normal. Digits and nails: Normal without clubbing or cyanosis. Inspection/palpation of joints, bones, and muscles: Normal. Skin Skin and subcutaneous tissue: Normal without rashes or lesions. Neurologic Cranial nerves: Cranial nerves 2-12 intact. Reflexes: 2+ and symmetric. Sensation: No sensory loss. Psychiatric Orientation to person, place, and time: Normal. Mood and affect: Normal. Assessment 1. Anxiety (300.00) (F41.9) 2. Depression (311) (F32.9) 3. Benign essential HTN (401.1) (I10) 4. BMI 32.0-32.9,adult (V85.32) (Z68.32) 5. Lung nodule seen on imaging study (793.11) (R91.1) Plan Anxiety 1. From ClonazePAM 0.5 MG Oral Tablet TAKE 1 TABLET BY MOUTH EVERY NIGHT AT BEDTIME To ClonazePAM 1 MG Oral Tablet TAKE 1 TABLET Bedtime Rx By: Bailey Pleitez; Dispense: 30 Days ; #:30 Tablet; Refill: 2; For: Anxiety; ASHA = N; Print Rx; Last Updated By: Mikala Traylor; 10/08/2016 7:44:20 AM lvam at [facility] with script info, script shredded. lvm at [place] [address] lvm at [facility] lvm at [place] [address] lvm at [facility] with script info. rx called out to [facility] script given to pt at office visit script given to pt at office visit Anxiety, Benign essential HTN, Depression 2. CBC W Differential; Status:Hold For - Manual Activation; Requested for:08Oct2016; Perform:[facility]; Due:[id number]; Last Updated By:Mikala Traylor; 10/08/2016 7:40:35 AM;Ordered; For:Anxiety, Benign essential HTN, Depression; Ordered By:Bailey Pleitez; Anxiety, Benign essential HTN, Depression, Lipid screening 3. Lipid W/ Calculated LDL; Status:Hold For - Manual Activation; Requested for:08Oct2016; Perform:[facility]; Due:[id number]; Last Updated By:Mikala Traylor; 10/08/2016 7:40:35 AM;Ordered; For:Anxiety, Benign essential HTN, Depression, Lipid screening; Ordered By:Bailey Pleitez; Anxiety, Benign essential HTN, Depression, Screening for hypothyroidism 4. TSH W Reflex Free T4; Status:Hold For - Manual Activation; Requested for:08Oct2016; Perform:[facility]; Due:[id number]; Last Updated By:Mikala Traylor; 10/08/2016 7:40:35 AM;Ordered; For:Anxiety, Benign essential HTN, Depression, Screening for hypothyroidism; Ordered By:Bailey Pleitez; Lung nodule seen on imaging study 5. CT CHEST W/O; Status:Need Information - Financial Authorization; Requested for:08Oct2016; Perform:[facility]; Due:[id number];Ordered; For:Lung nodule seen on imaging study; Ordered By:Bailey Pleitez; Discussion/Summary Depression/HTN/Anxiety- Doing well on current medications with no new complaints or concerns. Pt continues to be followed at [facility] in [facility] for S/P Breast Cancer with bilateral mastectomy and radiation. She is on Tamoxifen and will continue for 5+ years. Her liver enzymes are slightly elevated and followed at [facility] also. Will draw fasting labs in office today and order repeat CT chest to evaluate nodule found on lung incidentally when performing HIDA scan for gall stones. Will increase Clonazepam to 1mg at HS, will ability to take half if needed. FU in 6 months. Signatures Electronically signed by : Bailey Pleitez NP; Oct 08 2016 8:07AM GLUER AND SLICER HAND (Author) Electronically signed by : Ganga Galaviz M.D.; Nov 12 2016 9:49PM GLUER AND SLICER HAND (Author) documented in this encounter Plan of Treatment Not on file documented as of this encounter Visit Diagnoses Not on filedocumented in this encounter
--- OUTSIDE RECORDS SUMMARY | 2024-04-25 14:17 | XMS_ITS | Encounter Summary ---
Author Organization [facility] Address [address] [place] [address]. [place] [address] Care Team Providers Care Paleobotanist Name Role Phone Unavailable Primary Care Provider Unavailabl e Encounter Details Date Type Department Care Team (Latest Contact Info) Description 04/05/2016 Abstract [facility] Social History Tobacco Use Types Packs/Day Years Used Date Smoking Tobacco: Never Assessed Comments Unknown Sex and Gender Information Value Date Recorded Sex Assigned at Not on file Legal Sex Female 7:16 PM CDT Gender Identity Not on file Sexual Orientation Not on file documented as of this encounter Progress Notes * Generic Conversion MD Domenic - 04/05/2016 12:20 PM CST Message Recorded as Task Date: 04/05/2016 10:49 AM, Created By: Kiesha Bragg Task Name: Renew Medication Assigned To: [facility] Nurse Team Regarding Patient: Milagros Torres, Status: Active Comment: Kiesha Bragg - 05 Apr 2016 10:49 AM TASK CREATED Caller: Ramu Yoder rec'd call from Liliane Yoder requesting refill of Clonazepam for patient. last fill was on 03/12. told them that she isn't due for refill until 04/11. please advise. Mikala Traylor - 05 Apr 2016 11:26 AM TASK EDITED i spoke with pharmacy last week and informed them of the same thing. Mikala Traylor - 05 Apr 2016 11:27 AM TASK EDITED i spoke with Fabiola on the . she stated she would contact pt to let her know it was too early to fill script. Mikala Traylor - 05 Apr 2016 12:20 PM TASK EDITED no further action needed. Signatures Electronically signed by : Mikala Traylor MA; Apr 05 2016 12:20PM RADAR SYSTEMS ENGINEER (Author) documented in this encounter Plan of Treatment Not on file documented as of this encounter Visit Diagnoses Not on filedocumented in this encounter
--- OUTSIDE RECORDS SUMMARY | 2024-04-25 14:17 | XMS_ITS | Encounter Summary ---
Author Organization [facility] Address [address] [place] [address]. [place] [address] Care Team Providers Care Habitat Management Coordinator Name Role Phone Unavailable Primary Care Provider Unavailabl e Encounter Details Date Type Department Care Team (Latest Contact Info) Description 03/27/2016 Abstract [facility] Social History Tobacco Use Types [...]
--- OUTSIDE RECORDS SUMMARY | 2024-04-25 14:17 | XMS_ITS | Encounter Summary ---
Author Organization [facility] Address [address] [place] [address]. [place], [place] [id number] [place] [address] Care Team Providers Care Routing Equipment Tender Name Role Phone Unavailable Primary Care Provider Unavailabl e Encounter Details Date Type Department Care Team (Late st Contact Info) Description 03/27/2016 Abstract [facility] Nuclear Medicine [address] [place] [address] [place] [address] [facility] [address] [place] [address] Social History Tobacco Use Types [...] as of this encounter Visit Diagnoses Diagnosis Calculus of gallbladder without cholecystitis without obstruction Calculus of gallbladder without mention of cholecystitis or obstruction documented in this encounter
--- OUTSIDE RECORDS SUMMARY | 2024-04-25 14:17 | XMS_ITS | Encounter Summary ---
Author Organization [facility] Address [address] [place] [address]. [place], [place] [address] [place] [address] Care Team Providers Care Carpenter Helper Hardwood Flooring Name Role Phone Unavailable Primary Care Provider Unavailabl e Encounter Details Date Type Department Care Team (Late st Contact Info) Description 04/02/2016 Abstract [facility] [address] [facility], [address] [place] [address] [place] [address] [address] [place] [address] Social History Tobacco Use Types [...] - - Weight 88.9 kg (196 lb) 04/02/2016 2:01 PM HEALTHCARE ARCHITECT Height 167.6 cm (5' 6 ) 04/02/2016 2:01 PM HEALTHCARE ARCHITECT Body Mass Index 31.64 04/02/2016 2:01 PM HEALTHCARE ARCHITECT documented in this encounter Progress Notes * Generic Conversion MD Domenic - 04/02/2016 3:13 PM CST Message Recorded as Task Date: 04/02/2016 01:44 PM, Created By: Dariela Perez Task Name: Renew Medication Assigned To: [facility] Nurse Team Regarding Patient: Milagros Torres, Status: Active Comment: Dariela Perez - 02 Apr 2016 1:44 PM TASK CREATED Caller: Liliane Yoder, Pharmacist; Renew Medication Needs refill on Clenazepam .5mg Mikala Traylor - 02 Apr 2016 3:08 PM TASK EDITED last script was March 12, pt not due yet. Mikala Traylor - 02 Apr 2016 3:13 PM TASK EDITED spoke with Fabiola at pharmacy, she was made aware that pt is not due for med until Apr 11. she will contact pt. Signatures Electronically signed by : Mikala Traylor MA; Apr 02 2016 3:13PM HEALTHCARE ARCHITECT (Author) * Harry Hair MD - 04/02/2016 2:00 PM CST Chief Complaint FOLLOW UP HIDA SCAN RESULTS STILL COMPLAINS OF PAIN History of Present Illness HPI Free Text: Persistent severe right flank pain, associated constipation Hida scan showed > 90 % ejection fraction but not reproduced with injection of CCK Active Problems 1. Anxiety (300.00) (F41.9) 2. [...] BY MOUTH EVERY NIGHT AT BEDTIME; Therapy: [id number] to (Evaluate:[id number]) Requested for: 12Mar2016; Last Rx:12Mar2016 Ordered Rx By: Bailey Pleitez; Dispense: 30 [...] TAKE 1 TABLET BY MOUTH DAILY; Therapy: 63Qkq4693 to (Evaluate:[id number]) Requested for: 29Mar2016; Last Rx:29Mar2016 Ordered Rx By: Bailey Pleitez; Dispense: 30 Days ; #:30 TAB; Refill: 0; For: Benign essential HTN; ASHA = N; Verified Transmission to [employer]; Last Updated By: Cheryl Philippe; 03/29/2016 12:43:10 PM 5. Hydrocodone-Acetaminophen 10-325 MG Oral Tablet; Therapy: 22Mar2016 to Recorded Dispense: 10 Days ; #:30 TABS; Refill: 0; ASHA = N; Record; Last Updated By: Sheree Hung; 03/26/2016 11:59:08 AM 6. Ketorolac Tromethamine 10 MG Oral Tablet; Therapy: 26Mar2016 to Recorded Dispense: 5 Days ; #:20 TABS; Refill: 0; ASHA = N; Record; Last Updated By: Sheree Hung; 04/02/2016 2:03:31 PM 7. Milk of Magnesia 1200 MG/15ML Oral Suspension; GARRETT LQ AND TK 30 ML PO HS; Therapy: 22Mar2016 to Recorded Rx By: ANA MARIA CORBETT; Dispense: 11 Days ; #:355 SUSP; Refill: 0; ASHA = N; Record; Last Updated By: Sheree Hung; 03/26/2016 11:59:08 AM 8. MiraLax Oral Packet; MIX 1 PACKET IN 8 OUNCES OF ORANGE JUICE AND DRINK ONCE DAILY UNTIL HAS A BOWEL MOVEMENT; Therapy: 25Mar2016 to (Evaluate:[id number]) Requested for: 25Mar2016; Last Rx:25Mar2016 Ordered Rx By: Ganga Galaviz; Dispense: 24 Days ; #:1 X 24 Packet Box; Refill: 0; For: Flank pain; ASHA =N; Verified Transmission to [employer]; Last Updated By: Cheryl Philippe; 03/25/2016 8:18:16 AM 9. MiSOPROStol 200 MCG Oral Tablet; Therapy: 12Mar2016 to Recorded Dispense: 1 Days ; #:2 TABS; Refill: 0; ASHA = N; Record; Last Updated By: Sheree Hung; 03/26/2016 11:59:08 AM 10. Ondansetron 8 MG Oral Tablet Dispersible; Therapy: 17Oct2015 to Recorded Dispense: 10 Days ; #:30 TBDP; Refill: 0; ASHA = N; Record; Last Updated By: Sheree Hung; 03/26/2016 11:59:08 AM 11. Oxycodone-Acetaminophen 5-325 MG Oral Tablet; TAKE 1 TABLET EVERY 4 HOURS NEEDED FOR PAIN; Therapy: 22Mar2016 to (Evaluate:[id number]) Recorded Rx By: Dr Jean Marie Reynoso; Dispense: 30 Days ; #:180 Tablet; Refill: 0; ASHA = N; Record; Last Updated By: Mikala Traylor; 03/22/2016 4:18:28 PM 12. Potassium Chloride ER 10 MEQ Oral Capsule Extended Release; Therapy: 22Mar2016 to Recorded Dispense: 10 Days ; #:10 CPCR; Refill: 0; ASHA = N; Record; Last Updated By: Sheree Hung; 03/26/2016 11:59:08 AM 13. Tamoxifen Citrate 20 MG Oral Tablet; TAKE 1 TABLET DAILY; Therapy: 43Ixn9822 to Recorded Dispense: 0 Days ; #: Sufficient Tablet; Refill: 0; For: PMH: Abnormal mammogram; ASHA = N; Record; Last Updated By: Mikala Traylor; 11/17/2015 8:41:46 AM 14. Venlafaxine HCl ER 150 MG Oral Capsule Extended Release 24 Hour; TAKE 1 CAPSULE ONCE DAILY WITH FOOD; Therapy: 27Feb2016 to (Evaluate:27May2016) Requested for: 26Mar2016; Last Rx:27Feb2016 Ordered Rx By: Bailey Pleitez; Dispense: 30 Days ; #:30 Capsule Extended Release 24 Hour; Refill: 2; For: Anxiety; ASHA = N; Verified Transmission to [employer]; Last Updated By: Sheree Hung; 03/26/2016 11:59:08 AM Allergies 1. No Known Drug Allergies Recorded By: Mikala Traylor; 07/13/2015 7:08:04 AM Vitals Recorded: 02Apr2016 02:01PM Height 5 ft 6 in Weight 196 lb BMI Calculated 31.64 BSA Calculated 1.98 Physical Exam Abdomen - Abdomen: Non-tender, no masses. Plan Flank pain 1. Pre-printed Instructions given to patient; Status:Complete; Done: 02Apr2016 Last Updated By:Sheree Hung; 04/02/2016 2:03:31 PM;Ordered; For:Flank pain; Ordered By:Harry Hair; Discussion/Summary Refer Dr Sanford for possible colonoscopy MRI/ thoracic spine Further recommendations to follow Signatures Electronically signed by : Haryr Hair M.D.; Apr 02 2016 4:02PM HEALTHCARE ARCHITECT (Author) documented in this encounter Plan of Treatment Not on file documented as of this encounter Visit Diagnoses Not on filedocumented in this encounter
--- OUTSIDE RECORDS SUMMARY | 2024-04-25 14:17 | XMS_ITS | Encounter Summary ---
Author Organization [facility] Address [address] [place] [address]. [place] [address] Care Team Providers Care Vp Informatics Name Role Phone Unavailable Primary Care Provider Unavailabl e Encounter Details Date Type Department Care Team (Latest Contact Info) Description 08/30/2016 Abstract [facility] Medical Group Bailey Pleitez [...]
--- OUTSIDE RECORDS SUMMARY | 2024-04-25 14:17 | XMS_ITS | Encounter Summary ---
Author Organization [facility] Address [address] [place] [address]. [place], [place] [address] [place] [address] Care Team Providers Care Auto Parts Professional Name Role Phone Unavailable Primary Care Provider Unavailabl e Encounter Details Date Type Department Care Team (Late st Contact Info) Description 04/03/2016 Abstract [facility] Medical [facility] Family & Internal Medicine [facility] [id number] [place] [phone] [place] [id number] [place] [address] [id number] Social History Tobacco Use Types Packs/Day Years Used Date Smoking Tobacco: Never Assessed Comments Unknown Sex and Gender Information Value Date Recorded Sex Assigned at Not on file Legal Sex Female 7:16 PM CDT Gender Identity Not on file Sexual Orientation Not on file documented as of this encounter Last Filed Vital Signs Vital Sign Reading Time Taken Comments Blood Pressure 118/74 04/03/2016 11:02 AM PHOTOGRAPHER AERIAL Pulse 82 04/03/2016 11:02 AM PHOTOGRAPHER AERIAL Temperature - - Respiratory Rate - - Oxygen Saturation - - Inhaled Oxygen Concentration - - Weight 88 kg (194 lb) 04/03/2016 11:02 AM PHOTOGRAPHER AERIAL Height 167.6 cm (5' 6 ) 04/03/2016 11:02 AM PHOTOGRAPHER AERIAL Body Mass Index 31.31 04/03/2016 11:02 AM PHOTOGRAPHER AERIAL documented in this encounter Progress Notes * Ganga Galaviz MD - 04/03/2016 11:00 AM CST Chief Complaint Pt here with c/o possible shingles. History of Present Illness Rash (Brief): The patient is being seen for an initial evaluation of this episode of a rash. Symptoms: rash, localized rash and pruritus, but no widespread rash, no migratory rash, no patchy rash, no fever, no malaise, no fatigue and no headache. Symptom Cluster Details: she reports the symptoms are unchanged. Associated Symptoms: myalgias, but no arthralgias, no rhinorrhea, no sore throat, no neck stiffness, no lightheadedness, no cough, no wheezing, no shortness of breath, no nausea, no vomiting and no diarrhea. Current Treatment: she is currently not being treated for this problem. Review of Systems See HPI for pertinent positives. Constitutional: no fever and no recent weight loss. ENT: no sore throat. Cardiovascular: Normal. Respiratory: no shortness of breath, no cough and no wheezing. Gastrointestinal: abdominal pain, but no vomiting and no diarrhea. Genitourinary: no dysuria and no pelvic pain. Integumentary: itching and skin rash. Musculoskeletal: no joint swelling and no limb swelling. Neurological: no dizziness and no limb weakness. Psychiatric: Normal. Active Problems 1. Anxiety (300.00) [...] BY MOUTH EVERY NIGHT AT BEDTIME; Therapy: [id number] to (Evaluate:[id number]) Requested for: 12Mar2016; Last Rx:12Mar2016 Ordered Rx By: Bailey Pleitez; Dispense: 30 Days ; #:30 TAB; Refill: 0; For: Anxiety; ASHA = N; Print Rx; Last Updated By: Mikala Traylor; 03/12/2016 3:53:51 PM 2. DocQLace 100 MG Oral Capsule; TAKE 1 CAPSULE BY MOUTH TWICE DAILY; Therapy: 22Mar2016 to (Evaluate:[id number]) Recorded Dispense: 0 Days ; #:60 Capsule; Refill: 2; ASHA = N; Record; Last Updated By: Kristin Zheng; 04/03/2016 11:07:35 AM 3. HydroCHLOROthiazide 12.5 MG Oral Tablet; TAKE 1 TABLET BY MOUTH DAILY; Therapy: 14Aug2015 to (Evaluate:[id number]) Requested for: 29Mar2016; Last Rx:29Mar2016 Ordered Rx By: Bailey Pleitez; Dispense: 30 Days ; #:30 TAB; Refill: 0; For: Benign essential HTN; ASHA = N; Verified Transmission to [facility]; Last Updated By: Cheryl hPilippe; 03/29/2016 12:43:10 PM 4. Hydrocodone-Acetaminophen 10-325 MG Oral Tablet; TAKE 1 TABLET Every 8 hours PRN; Therapy: 22Mar2016 to (Evaluate:[id number]) Recorded Dispense: 10 Days ; #:30 Tablet; Refill: 0; ASHA = N; Record; Last Updated By: Kristin Zheng; 04/03/2016 11:19:59 AM 5. Ketorolac Tromethamine 10 MG Oral Tablet; TAKE 1 TABLET Every 6 hours PRN; Therapy: 26Mar2016 to (Evaluate:[id number]) Recorded Dispense: 5 Days ; #:20 Tablet; Refill: 0; ASHA = N; Record; Last Updated By: Kristin Zheng; 04/03/2016 11:07:35 AM 6. Milk of Magnesia 1200 MG/15ML [...] HAS A BOWEL MOVEMENT; Therapy: 25Mar2016 to (Evaluate:[id number]) Requested for: 25Mar2016; Last Rx:25Mar2016 Ordered Rx By: Ganga Galaviz; Dispense: 24 Days ; #:1 X 24 Packet Box; Refill: 0; For: Flank pain; ASHA =N; Verified Transmission to [facility]; Last Updated By: Cheryl Philippe; 03/25/2016 8:18:16 AM 8. Oxycodone-Acetaminophen 5-325 MG Oral Tablet; TAKE 1 TABLET EVERY 4 HOURS NEEDED FOR PAIN; Therapy: 22Mar2016 to (Evaluate:[id number]) Recorded Rx By: Dr Jean Marie Reynoso; Dispense: 30 Days ; #:180 Tablet; Refill: 0; ASHA = N; Record; Last Updated By: Ganga Galaviz; 04/03/2016 11:19:59 AM 9. Tamoxifen Citrate 20 MG Oral Tablet; TAKE 1 TABLET DAILY; Therapy: 17Nov2015 to Recorded Dispense: 0 Days ; #: Sufficient Tablet; Refill: 0; For: PMH: Abnormal mammogram; ASHA = N; Record; Last Updated By: Mikala Traylor; 11/17/2015 8:41:46 AM 10. Venlafaxine HCl ER 150 MG Oral Capsule Extended Release 24 Hour; TAKE 1 CAPSULE ONCE DAILY WITH FOOD; Therapy: 27Feb2016 to (Evaluate:27May2016) Requested for: 26Mar2016; Last Rx:27Feb2016 Ordered Rx By: Bailey Pleitez; Dispense: 30 Days ; #:30 Capsule Extended Release 24 Hour; Refill: 2; For: Anxiety; ASHA = N; Verified Transmission to [facility] [id number]; Last Updated By: Sheree Hung; 03/26/2016 11:59:08 AM Allergies 1. No Known Drug Allergies Recorded By: Mikala Traylor; 07/13/2015 7:08:04 AM Vitals Recorded: 03Apr2016 11:02AM Heart Rate 82 Respiration 16 Systolic 118 Diastolic 74 O2 Saturation 98 Height 5 ft 6 in Weight 194 lb BMI Calculated 31.31 BSA Calculated 1.97 Physical Exam Constitutional General [...] muscles: Normal. Skin Skin and subcutaneous tissue: Abnormal. right flank with vesicular tender confluent lesions on erythematous base in a dermatomal path. Neurologic Cranial nerves: Cranial nerves 2-12 intact. Reflexes: 2+ and symmetric. Sensation: No sensory loss. Psychiatric Orientation to person, place, and time: Normal. Mood and affect: Normal. Assessment 1. Shingles (053.9) (B02.9) Plan Shingles 1. Famciclovir 500 MG Oral Tablet; TAKE 1 TABLET 3 TIMES DAILY Rx By: Ganga Galaviz; Dispense: 7 Days ; #:21 Tablet; Refill: 0; For: Shingles; ASHA = N; Verified Transmission to [facility] # [id number]; Last Updated By: Cheryl Philippe; 04/03/2016 11:20:42 AM 2. From Hydrocodone-Acetaminophen 10-325 MG Oral Tablet TAKE 1 TABLET Every 8 hours PRN To Hydrocodone-Acetaminophen 10-325 MG Oral Tablet TAKE 1 TABLET EVERY 8 HOURS NEEDED FOR PAIN Rx By: Ganga Galaviz; Dispense: 20 Days ; #:60 Tablet; Refill: 0; For: Shingles; ASHA = N; Print Rx 1) Shingles: will start famvir and norco and gave her patient education and this maybe the abdominal pain she has been worked up for but it could also be coincidence and will have her follow up in a few weeks Signatures Electronically signed by : Ganga Galaviz M.D.; Apr 07 2016 5:26PM PHOTOGRAPHER AERIAL (Author) documented in this encounter Plan of Treatment Not on file documented as of this encounter Visit Diagnoses Not on filedocumented in this encounter
--- OUTSIDE RECORDS SUMMARY | 2024-04-25 14:18 | XMS_ITS | Encounter Summary ---
Author Organization [facility] Address [address] [place] [address]. [place], [place] [address] [place] [address] Care Team Providers Care Folder Taper Operator Name Role Phone Unavailable Primary Care Provider Unavailabl e Encounter Details Date Type Department Care Team (Late st Contact Info) Description 03/22/2016 Abstract [facility] Emergency Room [id number] [place] [address] Dhiraj Ríos MD Social History Tobacco Use Types Packs/Day [...] as of this encounter Visit Diagnoses Diagnosis Constipation Unspecified constipation documented in this encounter
--- OUTSIDE RECORDS SUMMARY | 2024-04-25 14:18 | XMS_ITS | Encounter Summary ---
Author Organization [facility] Address [address] [place] [address]. [place] [address] Care Team Providers Care Production Planner Name Role Phone Unavailable Primary Care Provider Unavailabl e Encounter Details Date Type Department Care Team (Latest Contact Info) Description 09/15/2015 Abstract [facility] Bailey Pleitez APNP Social History [...]
--- OUTSIDE RECORDS SUMMARY | 2024-04-25 14:18 | XMS_ITS | Encounter Summary ---
Author Organization [facility] Address [address] [place] [address]. [place], [place] [address] [place] [address] Care Team Providers Care Cotton Inspector Name Role Phone Unavailable Primary Care Provider Unavailabl e Encounter Details Date Type Department Care Team (Latest Contact Info) Description 11/28/2015 Abstract [facility] Medical Group Social History Tobacco Use Types Packs/Day Years Used Date Smoking Tobacco: Never Assessed Comments Unknown Sex and Gender Information Value Date Recorded Sex Assigned at Not on file Legal Sex Female 7:16 PM CDT Gender Identity Not on file Sexual Orientation Not on file documented as of this encounter Progress Notes * Generic Conversion MD Domenic - 11/28/2015 11:35 AM CDT Message Recorded as Task Date: 11/28/2015 10:09 AM, Created By: Kiesha Bragg Task Name: Renew Medication Assigned To: [facility] Nurse Team Regarding Patient: Milagros Torres, Status: Active Comment: Kiesha Bragg - 28 Nov 2015 10:09 AM TASK CREATED Caller: Self; pt is calling to find out about refill of her Duloxetine. it looks like you were working on trying to get prior auth. she states she is almost out of medication and she knows that she isn't supposed to just stop taking it. please call her back today. Mikala Traylor - 28 Nov 2015 11:41 AM TASK EDITED PA for Duloxetine was denied. pt needs to try Citalopram, which she did, Sertraline, which she can not do due to the increase of occurance of breast cancer and Venlafaxine IR. script for Venlafaxine sent to pharmacy, pt informed. pt to try this med for a couple months to seeif it will help her symptoms. Plan 1. Venlafaxine HCl - 37.5 MG Oral Tablet; TAKE 1 TABLET Daily after two weeks may increase to two tabs daily Rx By: Bailey Pleitez; Dispense: 30 Days ; #:60 Tablet; Refill: 0; For: Anxiety, Depression; ASHA =N; Verified Transmission to [facility] # [id number]; Last Updated By: Cheryl Philippe; 11/28/2015 11:38:28 AM Signatures Electronically signed by : Mikala Traylor MA; Nov 28 2015 11:42AM DOG BEAUTICIAN (Author) documented in this encounter Plan of Treatment Not on file documented as of this encounter Visit Diagnoses Not on filedocumented in this encounter
--- OUTSIDE RECORDS SUMMARY | 2024-04-25 14:18 | XMS_ITS | Encounter Summary ---
Author Organization [facility] Address [address] [place] [address]. [place], [place] [address] [place] [address] Care Team Providers Care Manager Health Name Role Phone Unavailable Primary Care Provider Unavailabl e Encounter Details Date Type Department Care Team (Latest Contact Info) Description 11/14/2015 Abstract [facility] Medical Group Social History Tobacco Use Types Packs/Day Years Used Date Smoking Tobacco: Never Assessed Comments Unknown Sex and Gender Information Value Date Recorded Sex Assigned at Not on file Legal Sex Female 7:16 PM CDT Gender Identity Not on file Sexual Orientation Not on file documented as of this encounter Progress Notes * Generic Conversion MD Domenic - 11/14/2015 4:33 PM CDT Message Recorded as Task Date: 11/14/2015 02:57 PM, Created By: Kiesha Bragg Task Name: Medical Complaint Callback Assigned To: [facility] Nurse Team Regarding Patient: Milagros Torres, Status: Active Comment: Kiesha Bragg - 14 Nov 2015 2:57 PM TASK CREATED Caller: Self; pt states she has been taking Celexa for about 2 months. she states she had thoughts of suicide (specifically of slitting her wrists) about 1 1/2 weeks ago. she states she has no feelings/thoughts ofself harm today and none since that time. she wants to know what Bailey recommends because she was told that it could be the medication that caused this episode . she states she can be reached at the number on file. Mikala Traylor - 14 Nov 2015 4:33 PM TASK EDITED spoke with pt and encouraged her to make appt to discuss. pt made appt for Friday. pt advised to goto ER if she gets suicidal thoughts again. pt states she is stable and knows better than to harm herself. Signatures Electronically signed by : Mikala Traylor MA; Nov 14 2015 4:33PM RURAL ELECTRIFICATION ENGINEER (Author) documented in this encounter Plan of Treatment Not on file documented as of this encounter Visit Diagnoses Not on filedocumented in this encounter
--- OUTSIDE RECORDS SUMMARY | 2024-04-25 14:18 | XMS_ITS | Encounter Summary ---
Author Organization [facility] Address [address] [place] [address]. [place], [place] [address] [place] [address] Care Team Providers Care Door Maker Name Role Phone Unavailable Primary Care Provider Unavailabl e Encounter Details Date Type Department Care Team (Late st Contact Info) Description 09/19/2015 Abstract [facility] Medical Group Family & Internal Medicine [address] [phone] Bailey Pleitez APNP Social History [...] Sign Reading Time Taken Comments Blood Pressure 122/84 09/19/2015 2:12 PM CDT Pulse 78 09/19/2015 2:12 PM CDT Temperature - - Respiratory Rate - - Oxygen Saturation - - Inhaled Oxygen Concentration - - Weight 94.3 kg (208 lb) 09/19/2015 2:12 PM CDT Height 167.6 cm (5' 6 ) 09/19/2015 2:12 PM CDT Body Mass Index 33.57 09/19/2015 2:12 PM CDT documented in this encounter Progress Notes * WHITNEY Daley - 09/19/2015 2:00 PM CDT Reason For Visit Chronic Recheck Visit Chief Complaint pt here to discuss high BP readings. History of Present Illness Hypertension (Follow-Up): The patient presents for follow-up of primary hypertension. Interval Events: Pt has recent Dx of Breast Ca s/p lumpectomy with pending Radiation and possible chemo. Increased stress and anxiety with new changes. She has had a few elevated readings at off sitevisits. Symptoms: The patient is currently asymptomatic. Home monitoring: The patient checks her blood pressure sporadically. Medications: the patient is adherent with her medication regimen. She denies medication side effects. Review of Systems See HPI for pertinent positives. ENT: normal. Cardiovascular: Normal. Respiratory: Normal. Gastrointestinal: Normal. Genitourinary: Normal. Integumentary: Normal. Musculoskeletal: Normal. Neurological: Normal. Psychiatric: anxiety. Active Problems 1. Abnormal mammogram (793.80) (R92.8) 2. Benign essential HTN (401.1) (I10) 3. Elevated blood pressure (401.9) (I10) Surgical History 1. History of Section ?? 1990 Family History Mother 1. Family history of [...] Social alcohol use (Z78.9) Current Meds 1. Hydrochlorothiazide 12.5 MG Oral Tablet; TAKE 1 TABLET DAILY; Therapy: 10Uxg5822 to (Evaluate:13Oct2015) Requested for: 49Igj4771; Last Rx:43Iyo1926 Ordered 2. Oxycodone-Acetaminophen 5-325 MG Oral Tablet; TAKE 1-2 TABLETS EVERY 4-6 HOURS PRN; Therapy: 09Pys2282 to Recorded Allergies 1. No Known Drug Allergies Vitals Recorded: 19Sep2015 02:12PM Temperature 97.8 F Heart Rate 78 Respiration 20 Systolic 122 Diastolic 84 O2 Saturation 98 Height 5 ft 6 in Weight 208 lb BMI Calculated 33.57 BSA Calculated 2.03 Physical Exam Constitutional General appearance: No acute [...] Mood and affect: Abnormal. Mood and Affect: anxious and tearful. Assessment 1. Anxiety (300.00) (F41.9) Plan Anxiety 1. ClonazePAM 0.5 MG Oral Tablet; TAKE 1 TABLET Bedtime Rx By: Bailey Pleitez; Dispense: 30 Days ; #:30 Tablet; Refill: 0; For: Anxiety; ASHA = N; Print Rx; Last Updated By: Mikala Traylor; 09/19/2015 3:39:17 PM script given to pt at office visit 2. Escitalopram Oxalate 10 MG Oral Tablet; TAKE 1 TABLET DAILY Rx By: Bailey Pleitez; Dispense: 30 Days ; #:30 Tablet; Refill: 1; For: Anxiety; ASHA = N; VerifiedTransmission to [facility] # [id number]; Msg to Pharmacy: take 1/2 tablet daily for one week, then full tablet daily thereafter; Last Updated By: Cheryl Philippe; 09/19/2015 2:54:02 PM Discussion/Summary Anxiety- Likely resulting in elevated BP readings during stressful times. Will initiate Escitalopram and CLonazepam (PRN). Recommend pt monitor BP and keep a log. FU in 10-14 days with log, home monitor and will reassess medication changes and made adjustments as needed. Signatures Electronically signed by : Bailey Pleitez NP; Sep 19 2015 4:45PM JEWELRY RACKER (Author) documented in this encounter Plan of Treatment Not on file documented as of this encounter Visit Diagnoses Not on filedocumented in this encounter
--- OUTSIDE RECORDS SUMMARY | 2024-04-25 14:18 | XMS_ITS | Encounter Summary ---
Author Organization [facility] Address [address] [place] [address]. [place], [place] [address] [place] [address] Care Team Providers Care Outer Diameter Technician Name Role Phone Unavailable Primary Care Provider Unavailabl e Encounter Details Date Type Department Care Team (Late st Contact Info) Description 11/17/2015 Abstract [facility] Medical Group Family & Internal Medicine [address] [phone] Bailey Pleitez APNP Social History [...] Sign Reading Time Taken Comments Blood Pressure 116/84 11/17/2015 8:37 AM CDT Pulse 68 11/17/2015 8:37 AM CDT Temperature - - Respiratory Rate - - Oxygen Saturation - - Inhaled Oxygen Concentration - - Weight 94.5 kg (208 lb 6.4 oz) 11/17/2015 8:37 A M CDT Height 167.6 cm (5' 6 ) 11/17/2015 8:37 AM CDT Body Mass Index 33.64 11/17/2015 8:37 AM CDT documented in this encounter Progress Notes * WHITNEY Daley - 11/17/2015 8:30 AM CDT Chief Complaint pt here to discuss anxiety meds. pt states she doesn't think they are helping much anymore. History of Present Illness Depression (Follow-Up): The patient states her depression has worsened since the last visit. They have had recurrent episodes of major depression. She describes this as moderate in severity. ComorbidIllnesses: anxiety. Interval Events: Had feelings of self harm for no apparent known reason. Interval Symptoms: worsened depression, worsened depressed mood, worsened loss of interest or pleasure in activities, worsened inability to perform normal activities and worsened loss of energy. Associated symptoms include: thoughts of suicide The patient denies having a plan for committing suicide, denies any intent to act on suicidal thoughts and has good social support. Social Support: the patient has good social support. Medications: the patient is adherent with her medication regimen. Review of Systems See HPI for pertinent positives. ENT: normal. Cardiovascular: Normal. Respiratory: Normal. Gastrointestinal: Normal. Genitourinary: Normal. Integumentary: Normal. Musculoskeletal: Normal. Neurological: Normal. Psychiatric: depression. Active Problems 1. Abnormal mammogram (793.80) (R92.8) 2. Anxiety (300.00) (F41.9) 3. Benign essential HTN (401.1) (I10) 4. Elevated blood pressure (401.9) (I10) Surgical History [...] Social alcohol use (Z78.9) Current Meds 1. Citalopram Hydrobromide 10 MG Oral Tablet; TAKE 1 TABLET BY MOUTH EVERY DAY; Therapy: 85Iwh7424 to (Evaluate:02Apr2016) Requested for: 05Oct2015; Last Rx:05Oct2015 Ordered 2. ClonazePAM 0.5 MG Oral Tablet; TAKE 1 TABLET Bedtime; Therapy: 57Pdz7038 to (Evaluate:12Csr9184); Last Rx:05Oct2015 Ordered 3. Hydrochlorothiazide 12.5 MG Oral Tablet; TAKE 1 TABLET DAILY; Therapy: 53Uzt9066 to (Evaluate:02Apr2016) Requested for: 05Oct2015; Last Rx:05Oct2015 Ordered 4. Tamoxifen Citrate 20 MG Oral Tablet; TAKE 1 TABLET DAILY; Therapy: 17Nov2015 to Recorded Allergies 1. No Known Drug Allergies Vitals Recorded: 17Nov2015 08:37AM Temperature 99.2 F Heart Rate 68 Respiration 20 Systolic 116 Diastolic 84 O2 Saturation 98 Height 5 ft 6 in Weight 208 lb 6.4 oz BMI Calculated 33.64 BSA Calculated 2.04 Physical Exam Pulmonary Respiratory effort: No increased work of breathing or signs of respiratory distress. Auscultation of lungs: Clear to auscultation. Cardiovascular Auscultation of heart: Normal rate and rhythm, normal S1 and S2, without murmurs. Musculoskeletal Gait and station: Normal. Psychiatric Orientation to person, place, and time: Normal. Mood and affect: Abnormal. Mood and Affect: depressed and tearful. Assessment 1. Depression (311) (F32.9) Plan Anxiety 1. Citalopram Hydrobromide 10 MG Oral Tablet Rx By: Bailey Pleitez; Dispense: 30 Days ; #:30 Tablet; Refill: 5; For: Anxiety; ASHA = N; Transmitted To: [facility] # [id number] lvm at [employer] with script info. 2. ClonazePAM 0.5 MG Oral Tablet; TAKE 1 TABLET Bedtime Rx By: Bailey Pleitez; Dispense: 30 Days ; #:30 Tablet; Refill: 0; For: Anxiety; ASHA = N; Print Rx; Last Updated By: Mikala Traylor; 11/17/2015 9:07:47 AM script given to pt at office visit Depression 3. DULoxetine HCl - 30 MG Oral Capsule Delayed Release Particles; TAKE 1 CAPSULE Daily After 2 weeks may increase to 2 capsules daily Rx By: Bailey Pleitez; Dispense: 30 Days ; #:60 Capsule Delayed Release Particles; Refill: 1; For:Depression; ASHA = N; Sent To: [facility] # [id number] Discussion/Summary Depression- Will stop Citalopram and switch to Duloxetine. Discussed CBT, which pt states she will look into. Encouraged to eat healthy and increase exercise routine. FU in 4-6 weeks Signatures Electronically signed by : Bailey Pleitez NP; Nov 17 2015 9:15AM POCKET CREASER (Author) documented in this encounter Plan of Treatment Not on file documented as of this encounter Visit Diagnoses Not on filedocumented in this encounter
--- OUTSIDE RECORDS SUMMARY | 2024-04-25 14:18 | XMS_ITS | Encounter Summary ---
Author Organization [facility] Address [address] [place] [address]. [place] [address] Care Team Providers Care Body Service Team Member Name Role Phone Unavailable Primary Care Provider Unavailabl e Encounter Details Date Type Department Care Team (Latest Contact Info) Description 12/04/2015 Abstract [facility] Medical Group Bailey Pleitez APNP Social [...]
--- OUTSIDE RECORDS SUMMARY | 2024-04-25 14:18 | XMS_ITS | Encounter Summary ---
Author Organization [facility] Address [address] [place] [address]. [place] [address] Care Team Providers Care Life Scientist Name Role Phone Unavailable Primary Care Provider Unavailabl e Encounter Details Date Type Department Care Team (Latest Contact Info) Description 01/09/2016 Abstract [facility] Medical Group Bailey Pleitez APNP Social History [...]
--- OUTSIDE RECORDS SUMMARY | 2024-04-25 14:18 | XMS_ITS | Encounter Summary ---
Author Organization [facility] Address [address] [place] [address]. [place], [place] [id number] [place] [address] Care Team Providers Care Quilt Sewer Name Role Phone Unavailable Primary Care Provider Unavailabl e Encounter Details Date Type Department Care Team (Late st Contact Info) Description 10/05/2015 Abstract [facility] Medical Group Family & Internal Medicine [address] [phone] Bailey Pleitez APNP Social History [...] Reading Time Taken Comments Blood Pressure 124/82 10/05/2015 8:10 AM CDT Pulse 76 10/05/2015 8:10 AM CDT Temperature - - Respiratory Rate - - Oxygen Saturation - - Inhaled Oxygen Concentration - - Weight 93.9 kg (207 lb) 10/05/2015 8:10 AM CDT Height 167.6 cm (5' 6 ) 10/05/2015 8:10 AM CDT Body Mass Index 33.41 10/05/2015 8:10 AM CDT documented in this encounter Progress Notes * WHITNEY Daley - 10/05/2015 8:00 AM CDT Reason For Visit Acute Follow-Up Visit Chief Complaint follow up new meds has had tongue swelling issues History of Present Illness HPI Free Text: Patient presents for follow up on medications for anxiety. Was having trouble sleeping and feeling very anxious since starting Citalopram Hydrobromide 10 mg daily and ClonazaePAM 0.5 mg HS pt has felt much better. Anxiety Disorder (Follow-Up): The patient is being seen for follow-up of anxiety. The patient reports doing well. Interval symptoms: stable anxiety, stable difficulty concentrating and stable panic attacks The patient presents with complaints of improved sleep disruption Risk Factors: emotional stress (Pt is sleeping much better since starting medications. Still has some nights of restlessness on occasion). Disease management: the patient is doing well with her goals Goals include adequate sleep and improved work performance. Review of Systems See HPI for pertinent positives. Constitutional: Normal. ENT: normal. Cardiovascular: Normal. Respiratory: Normal. Gastrointestinal: Normal. Genitourinary: Normal. Integumentary: Normal. Musculoskeletal: Normal. Neurological: Normal. The patient presents with complaints of anxiety (Anxiety is stable and controlled at this time. Patient is to start radiation for breast cancer next week). Active Problems 1. Abnormal mammogram (793.80) (R92.8) [...] 1 TABLET BY MOUTH EVERY DAY; Therapy: [id number] to (Evaluate:22Oct2015); Last Rx:[id number] Ordered 2. ClonazePAM 0.5 MG Oral Tablet; TAKE 1 TABLET Bedtime; Therapy: [id number] to (Evaluate:19Oct2015); Last Rx:[id number] Ordered 3. Hydrochlorothiazide 12.5 MG Oral Tablet; TAKE 1 TABLET DAILY; Therapy: 14Aug2015 to (Evaluate:13Oct2015) Requested for: 14Aug2015; Last Rx:14Aug2015 Ordered 4. LORazepam 0.5 MG Oral Tablet; to take with radiation treatment Dr torres; Therapy: 05Oct2015 to Recorded 5. Oxycodone-Acetaminophen 5-325 MG Oral Tablet; TAKE 1-2 TABLETS EVERY 4-6 HOURS PRN; Therapy: 19Sep2015 to Recorded Allergies 1. No Known Drug Allergies Vitals Recorded: 05Oct2015 08:10AM Heart Rate 76 Systolic 124 Diastolic 82 Height 5 ft 6 in Weight 207 lb BMI Calculated 33.41 BSA Calculated 2.03 Physical Exam Constitutional General [...] no masses. Musculoskeletal Gait and station: Normal. Skin Skin and subcutaneous tissue: Normal without rashes or lesions. Psychiatric Orientation to person, place, and time: Normal. Mood and affect: Normal. Assessment 1. Anxiety (300.00) (F41.9) Plan Anxiety 1. Citalopram Hydrobromide 10 MG Oral Tablet; TAKE 1 TABLET BY MOUTH EVERY DAY Rx By: Bailey Pleitez; Dispense: 30 Days ; #:30 Tablet; Refill: 5; For: Anxiety; ASHA = N; Sent To:[facility] # [id number] lvm at [facility] with script info. 2. ClonazePAM 0.5 MG Oral Tablet; TAKE 1 TABLET Bedtime Rx By: Bailey Pleitez; Dispense: 30 Days ; #:30 Tablet; Refill: 0; For: Anxiety; ASHA = N; Print Rx script given to pt at office visit Benign essential HTN 3. Hydrochlorothiazide 12.5 MG Oral Tablet; TAKE 1 TABLET DAILY Rx By: Bailey Pleitez; Dispense: 30 Days ; #:30 Tablet; Refill: 5; For: Benign essential HTN; ASHA = N; Sent To: [facility] # [id number] Discussion/Summary Anxiety- Pt with Anxiety here for FU. Doing well on current medications. Will refill and continue to monitor. She starts radiation therapy next week at [facility] for 5 days. Instructed to call with anyconcerns or problems. Fu in 3 months Signatures Electronically signed by : Thanh Whitman MA; Oct 05 2015 8:15AM POWERTRAIN CALIBRATION ENGINEER (Author) Electronically signed by : Bailey Pleitez NP; Oct 05 2015 9:16AM POWERTRAIN CALIBRATION ENGINEER (Author) Electronically signed by : Ganga Galaviz M.D.; Oct 08 2015 7:24PM POWERTRAIN CALIBRATION ENGINEER (Author) documented in this encounter Plan of Treatment Not on file documented as of this encounter Visit Diagnoses Not on filedocumented in this encounter
--- OUTSIDE RECORDS SUMMARY | 2024-04-25 14:18 | XMS_ITS | Encounter Summary ---
Author Organization [facility] Address [address] [place] [address]. [place] [address] Care Team Providers Care Patternmaker Helper Name Role Phone Unavailable Primary Care Provider Unavailabl e Encounter Details Date Type Department Care Team (Latest Contact Info) Description 02/22/2016 Abstract [facility] Medical Group Social History Tobacco Use Types Packs/Day Years Used Date Smoking Tobacco: Never Assessed Comments Unknown Sex and Gender Information Value Date Recorded Sex Assigned at Not on file Legal Sex Female 7:16 PM CDT Gender Identity Not on file Sexual Orientation Not on file documented as of this encounter Progress Notes * Mandi Clark Md, MD - 02/22/2016 10:23 AM CDT Message Message: pt called and sounded very overwhelmed, pt began to cry and asked me for help. pt feels very anxious and depressed and has decided that she is ready to talk to a professional about her issues. pt advised to call insurance and see who is covered under her plan. pt wants to know who Bailey recommends. pt then instructed to call us back with the list to see who Bailey might know. pt vocalized understanding. Signatures Electronically signed by : Mikala Traylor MA; Feb 22 2016 10:26AM MINING SUPPORT WORKER (Author) documented in this encounter Plan of Treatment Not on file documented as of this encounter Visit Diagnoses Not on filedocumented in this encounter
--- OUTSIDE RECORDS SUMMARY | 2024-04-25 14:18 | XMS_ITS | Encounter Summary ---
Author Organization [facility] Address [address] [place] [address]. [place], [place] [id number] [place] [address] Care Team Providers Care Tile Molder Name Role Phone Unavailable Primary Care Provider Unavailabl e Encounter Details Date Type Department Care Team (Late st Contact Info) Description 02/27/2016 Abstract [facility] Medical Group Family & Internal Medicine [address] [phone] Bailey Pleitez APNP Social History [...] Reading Time Taken Comments Blood Pressure 118/74 02/27/2016 8:38 AM CDT Pulse 68 02/27/2016 8:38 AM CDT Temperature - - Respiratory Rate - - Oxygen Saturation - - Inhaled Oxygen Concentration - - Weight 90.2 kg (198 lb 12.8 oz) 02/27/2016 8:38 AM CDT Height 167.6 cm (5' 6 ) 02/27/2016 8:38 AM CDT Body Mass Index 32.09 02/27/2016 8:38 AM CDT documented in this encounter Progress Notes * WHITNEY Daley - 02/27/2016 8:30 AM CDT Reason For Visit Reason For Visit: Acute Follow-Up Visit Chief Complaint pt c/o high anxiety. History of Present Illness HPI Free Text: Pt presents w/ c/o increased anxiety in the past 2 weeks. Denies known cause but reports mild work-related stress and relationship difficulties. Pt reports symptoms of irritability, restlessness, muscle tension, difficulty sleeping, and decreased appetite; denies panic attacks. States she has been compliant with current medication regimen but they have not seemed to be working as well as previously. She reports she saw a therapist with [facility] last week and plans to go back for a 2nd visit this week. No other interventions attempted for anxiety relief. Anxiety Disorder (Follow-Up): The patient is being seen for follow-up of anxiety. Interval symptoms: worsened anxiety, stable difficulty concentrating, worsened restlessness, deniespanic attacks and worsened sleep disruption. Medications: the patient is adherent to her medication regimen. Diet: She does not have a healthy diet.Exercise: She does not exercise regularly. Disease management: the patient is not doing well with her goals. Review of Systems See HPI for pertinent positives. Constitutional: feeling poorly and feeling tired. ENT: normal. Cardiovascular: Normal. Respiratory: Normal. Gastrointestinal: Normal. Genitourinary: Normal. Integumentary: Normal. Musculoskeletal: Normal. Neurological: Normal. The patient presents with complaints of gradual onset of constant episodes of moderate anxiety. Episodes started about 2 weeks ago. She is currently experiencing anxiety. Her symptoms are caused by no known event. Symptoms are not improved by medications. Symptoms are made worse by stress and new si tuations. Symptoms are worsening. Pertinent Medical History: anxiety disorder. Active Problems 1. Abnormal mammogram (793.80) (R92.8) 2. Anxiety (300.00) (F41.9) 3. Benign essential HTN (401.1) (I10) 4. Depression (311) (F32.9) Past Medical History 1. History of Elevated blood pressure (401.9) (I10) Surgical History 1. History of Breast Surgery Lumpectomy ?? left breast September 04, 2015 2. History of Section ?? 1990 Family History [...] BY MOUTH EVERY NIGHT AT BEDTIME; Therapy: 31Isp0394 to (Evaluate:02Mar2016) Requested for: 02Feb2016; Last Rx:[id number] Ordered Rx By: Bailey Pleitez; Dispense: 30 Days ; #:30 TAB; Refill: 0; For: Anxiety; ASHA = N; Print Rx; Last Updated By: Mikala Traylor; 02/02/2016 4:50:47 PM 2. HydroCHLOROthiazide 12.5 MG Oral Tablet; TAKE 1 TABLET DAILY; Therapy: 74Vjq3204 to (Evaluate:02Apr2016) Requested for: 05Oct2015; Last Rx:05Oct2015 Ordered Rx By: Bailey Pleitez; Dispense: 30 Days ; #:30 Tablet; Refill: 5; For: Benign essential HTN; ASHA = N; Verified Transmission to [facility]; Last Updated By: Outfittery; 10/05/2015 9:17:19 AM 3. Tamoxifen Citrate 20 MG Oral Tablet; TAKE 1 TABLET DAILY; Therapy: [id number] to Recorded Dispense: 0 Days ; #: Sufficient Tablet; Refill: 0; For: Abnormal mammogram; ASHA = N; Record; Last Updated By: Mikala Traylor; 11/17/2015 8:41:46 AM 4. Venlafaxine HCl - 37.5 MG Oral Tablet; TAKE 2 TABLET Daily; Therapy: 71Yic1451 to (Evaluate:03Apr2016) Requested for: 64Cuj4789; Last Rx:[id number] Ordered Rx By: Bailey Pleitez; Dispense: 30 Days ; #:60 Tablet; Refill: 2; For: Anxiety, Depression; ASHA =N; Verified Transmission to [facility]; Last Updated By: Outfittery; 01/04/2016 8:10:25 AM Allergies 1. No Known Drug Allergies Recorded By: iMkala Traylor; 07/13/2015 7:08:04 AM Vitals Recorded: 27Feb2016 08:38AM Temperature 97.9 F Heart Rate 68 Respiration 16 Systolic 118 Diastolic 74 O2 Saturation 99 Height 5 ft 6 in Weight 198 lb 12.8 oz BMI Calculated 32.09 BSA Calculated 2 Physical Exam Constitutional General [...] Mood and affect: Abnormal. Mood and Affect: agitated, anxious, concerned, frustrated, irritable andappears tense. Assessment 1. Anxiety (300.00) (F41.9) 2. BMI 32.0-32.9,adult (V85.32) (Z68.32) Plan Anxiety 1. Venlafaxine HCl ER 150 MG Oral Capsule Extended Release 24 Hour; TAKE 1 CAPSULE ONCE DAILY WITH FOOD Rx By: Bailey Pleitez; Dispense: 30 Days ; #:30 Capsule Extended Release 24 Hour; Refill: 2; For: Anxiety; ASHA = N; Sent To: [facility] # [id number] Anxiety, Depression 2. Venlafaxine HCl - 37.5 MG Oral Tablet Rx By: Bailey Pleitez; Dispense: 30 Days ; #:60 Tablet; Refill: 2; For: Anxiety, Depression; ASHA =N; Transmitted To: [facility] # [id number] Discussion/Summary Anxiety FU - Will increase venlafaxine IR 75 mg daily to BID dosing until pt finishes pills, at which time we will switch to ER 150 mg daily. Continue therapy with [place]. Encouraged healthy diet and exercise regimen. FU PRN or for thoughts of SI/HI. Signatures Electronically signed by : Bailey Pleitez NP; Feb 27 2016 9:50AM PARLIAMENTARY COUNSEL (Author) documented in this encounter Plan of Treatment Not on file documented as of this encounter Visit Diagnoses Not on filedocumented in this encounter
--- OUTSIDE RECORDS SUMMARY | 2024-04-25 14:18 | XMS_ITS | Encounter Summary ---
Author Organization [facility] Address [address] [place] [address]. [place], [place] [id number] [place], [place] [id number] Care Team Providers Care C++ Quant Developer Name Role Phone Unavailable Primary Care Provider Unavailabl e Encounter Details Date Type Department Care Team (Latest Contact Info) Description 09/22/2015 Abstract [facility] Medical Group Social History Tobacco Use Types Packs/Day Years Used Date Smoking Tobacco: Never Assessed Comments Unknown Sex and Gender Information Value Date Recorded Sex Assigned at Not on file Legal Sex Female 7:16 PM CDT Gender Identity Not on file Sexual Orientation Not on file documented as of this encounter Progress Notes * Generic Conversion MD Domenic - 09/22/2015 7:55 AM CDT Message Recorded as Task Date: 09/20/2015 09:14 AM, Created By: Ilene Mistry Task Name: Call Back Assigned To: [facility] Nurse Team Regarding Patient: Milagros Torres, Status: In Progress Comment: Ilene Mistry - 20 Sep 2015 9:14 AM TASK CREATED Caller: Self; pt called stating ins is requiring PA for escitalopram that was prescribed by Bailey at yesterday's appt., pt requesting a call back with status of this. Informed pt Bailey is out of the office on Friday but informed her will see if someone can check the status of this. Jyotsna Melo - 20 Sep 2015 10:54 AM TASK EDITED Called pt and told her I would do a PA for the medication, but it is not in [facility] and without taking one of the other meds first that are on the list it may not be approved. She said that is what the pharmacist told her too. Jyotsna Melo - 20 Sep 2015 10:55 AM TASK IN PROGRESS Jyotsna Melo - 20 Sep 2015 12:19 PM TASK EDITED PA sent through Cover My Meds. Jyotsna Melo - 21 Sep 2015 10:34 AM TASK REASSIGNED: Previously Assigned To [address] Triage I will watch for fax of decision. If I get something I will let you know. Mikala Traylor - 22 Sep 2015 7:53 AM TASK EDITED per Bailey pt can be switched to covered med Citalopram 10mg. new script will be ordered. Mikala Traylor - 22 Sep 2015 7:57 AM TASK EDITED script ordered with same directions as last. Mikala Traylor - 22 Sep 2015 8:43 AM TASK EDITED pt informed and vocalized understanding. Plan 1. Citalopram Hydrobromide 10 MG Oral Tablet; TAKE 1 TABLET BY MOUTH EVERY DAY Rx By: Bailey Pleitez; Dispense: 30 Days ; #:30 Tablet; Refill: 0; For: Anxiety; ASHA = N; Call Rx;Msg to Pharmacy: TO REPLACE ESCITALOPRAM SCRIPT- Take 1/2 tablet daily for one week then one tabletdaily thereafter.; Last Updated By: Mikala Traylor; 09/22/2015 7:56:59 AM Signatures Electronically signed by : Mikala Traylor MA; Sep 22 2015 8:43AM THIRD STEEL POURER (Author) documented in this encounter Plan of Treatment Not on file documented as of this encounter Visit Diagnoses Not on filedocumented in this encounter
--- OUTSIDE RECORDS SUMMARY | 2024-04-25 14:18 | XMS_ITS | Encounter Summary ---
Author Organization [facility] Address [address] [place] [address]. [place] [address] Care Team Providers Care Packing Line Worker Name Role Phone Unavailable Primary Care Provider Unavailabl e Encounter Details Date Type Department Care Team (Latest Contact Info) Description 01/04/2016 Abstract [facility] Medical Group Social History Tobacco Use Types Packs/Day Years Used Date Smoking Tobacco: Never Assessed Comments Unknown Sex and Gender Information Value Date Recorded Sex Assigned at Not on file Legal Sex Female 7:16 PM CDT Gender Identity Not on file Sexual Orientation Not on file documented as of this encounter Progress Notes * Generic Conversion MD Domenic - 01/04/2016 8:02 AM CDT Message Recorded as Task Date: 01/03/2016 10:15 AM, Created By: Kiesha Bragg Task Name: Renew Medication Assigned To: [facility] Nurse Team Regarding Patient: Milagros Torres, Status: Active Comment: Kiesha Bragg - 03 Jan 2016 10:15 AM TASK CREATED Caller: Self; pt requests refill of Venlafaxine. this is a new med for her--she was switched to this med. I wouldhave refilled it but I wasn't sure if she would require a med check. she states she has enough medication to last until Friday. Liliane Solis. please advise. Mikala Traylor - 04 Jan 2016 8:02 AM TASK EDITED Liliane Yoder. pt takes two tabs daily. Mikala Traylor - 04 Jan 2016 8:03 AM TASK EDITED script sent to pharmacy. pt informed. med is working well for her. Plan 1. From Venlafaxine HCl - 37.5 MG Oral Tablet TAKE 1 TABLET Daily after two weeks may increase to two tabs daily To Venlafaxine HCl - 37.5 MG Oral Tablet TAKE 2 TABLET Daily Rx By: Bailey Pleitez; Dispense: 30 Days ; #:60 Tablet; Refill: 2; For: Anxiety, Depression; ASHA =N; Sent To: [facility] # [id number]; Last Updated By: Mikala Traylor; 01/04/2016 8:03:15 AM Signatures Electronically signed by : Mikala Traylor MA; Jan 04 2016 8:03AM MEDICAL CODING MANAGER (Author) documented in this encounter Plan of Treatment Not on file documented as of this encounter Visit Diagnoses Not on filedocumented in this encounter
--- OUTSIDE RECORDS SUMMARY | 2024-04-25 14:18 | XMS_ITS | Encounter Summary ---
Author Organization [facility] Address [address] [place] [address]. [place] [address] Care Team Providers Care Landscape Architecture Professor Name Role Phone Unavailable Primary Care Provider Unavailabl e Encounter Details Date Type Department Care Team (Latest Contact Info) Description 08/14/2015 Abstract [facility] Medical Group Bailey Pleitez APNP Social History Tobacco Use Types Packs/Day Years Used Date Smoking Tobacco: Never Assessed Comments Unknown Sex and Gender Information Value Date Recorded Sex Assigned at Not on file Legal Sex Female 7:16 PM CDT Gender Identity Not on file Sexual Orientation Not on file documented as of this encounter Progress Notes * Generic Conversion MD Domenic - 08/14/2015 4:14 PM CDT Message Recorded as Task Date: 08/14/2015 09:06 AM, Created By: Kiesha Bragg Task Name: Medical Complaint [facility]back [facility] Regarding Patient: Milagros Torres, Status: In Progress Comment: Kiesha Bragg - 14 Aug 2015 9:06 AM TASK CREATED Caller: Self; rec'd call from patient c/o nagging cough since starting on Lisinopril. [facility] effect from this med and whether or not any changes need to be made. Mikala Traylor - 14 Aug 2015 4:11 PM TASK EDITED per Bailey pt to d/c Lisinopril and start HCTZ daily. script sent to pharmacy. [facility] for pt to return call. Mikala Traylor - 14 Aug 2015 4:11 PM TASK IN PROGRESS Ilene Mistry - 14 Aug 2015 4:14 PM TASK EDITED pt returned call and informed of message, pt voiced understanding. Signatures Electronically signed by : Ilene Mistry, ; Aug 14 2015 4:14PM ESCALATOR SERVICE MECHANIC (Author) documented in this encounter Plan of Treatment Not on file documented as of this encounter Visit Diagnoses Not on filedocumented in this encounter
--- OUTSIDE RECORDS SUMMARY | 2024-04-25 14:18 | XMS_ITS | Encounter Summary ---
Author Organization [facility] Address [address] [place] [address]. [place] [address] Care Team Providers Care Aerosol Line Operator Name Role Phone Unavailable Primary Care Provider Unavailabl e Encounter Details Date Type Department Care Team (Latest Contact Info) Description 11/03/2015 Abstract [facility] Medical Group Bailey Pleitez APNP [...]
--- OUTSIDE RECORDS SUMMARY | 2024-04-25 14:18 | XMS_ITS | Encounter Summary ---
Author Organization [facility] Address [address] [place] [address]. [place] [address] Care Team Providers Care Electronics Parts Sales Representative Name Role Phone Unavailable Primary Care Provider Unavailabl e Encounter Details Date Type Department Care Team (Latest Contact Info) Description 11/07/2015 Abstract [facility] Medical Group Social History Tobacco Use [...]
--- OUTSIDE RECORDS SUMMARY | 2024-04-25 14:18 | XMS_ITS | Encounter Summary ---
Author Organization [facility] Address [address] [place] [address]. [place] [address] Care Team Providers Care Plant Mechanic Name Role Phone Unavailable Primary Care Provider Unavailabl e Encounter Details Date Type Department Care Team (Latest Contact Info) Description 11/21/2015 Abstract [facility] Medical Group Bailey Pleitez APNP Social History Tobacco Use Types Packs/Day Years Used Date Smoking Tobacco: Never Assessed Comments Unknown Sex and Gender Information Value Date Recorded Sex Assigned at Not on file Legal Sex Female 7:16 PM CDT Gender Identity Not on file Sexual Orientation Not on file documented as of this encounter Progress Notes * Generic Conversion MD Domenic - 11/21/2015 12:45 PM CDT Message Recorded as Task Date: 11/21/2015 11:11 AM, Created By: Arabella Hull Task Name: Follow Up [facility] Regarding Patient: Milagros Torres, Status: Active Comment: Arabella Hull - 21 Nov 2015 11:11 AM TASK CREATED Caller: Self; Pt states that [facility] contacted her and stated that the new medication that was prescribed for her by Bailey (she believes it is Prozac) is contraindicated with her cancer medication. She states that [facility] told her that they sent the office a fax yesterday but that they have not heard anythingback as yet and are still waiting. Milagros would like to know if Bailey plans to make any changes to her medications. Mikala Traylor - 21 Nov 2015 3:22 PM TASK EDITED spoke with Bailey, she sent over another med and d/c current one. spoke with pharmacist and new med needs PA. will discuss with Bailey, but more than likely will just do PA on first med Duloxetine and go from there. Mikala Traylor - 21 Nov 2015 3:47 PM TASK EDITED spoke with Bailey, will do PA on Duloxetine. pt informed and vocalized understanding. Plan 1. FLUoxetine HCl - 20 MG Oral Capsule Rx By: Bailey Pleitez; Dispense: 0 Days ; #:60 Capsule; Refill: 0; For: Anxiety, Depression; ASHA =N; Sent To: [facility] # [id number] 2. Escitalopram Oxalate 20 MG Oral Tablet; TAKE ONE TABLET BY MOUTH ONCE DAILY Rx By: Bailey Pleitez; Dispense: 30 Days ; #:1 Tablet; Refill: 1; For: Depression; ASHA = N; Verified Transmission to [facility] # [id number]; Last Updated By: Denae SurveyMonkeysuellenSquareKey; 11/21/2015 12:47:33 PM Signatures Electronically signed by : Mikala Traylor MA; Nov 21 2015 3:47PM MODELING MANAGER (Author) documented in this encounter Plan of Treatment Not on file documented as of this encounter Visit Diagnoses Not on filedocumented in this encounter
--- OUTSIDE RECORDS SUMMARY | 2024-04-25 14:18 | XMS_ITS | Encounter Summary ---
Author Organization [facility] Address [address] [place] [address]. [place], [place] [id number] [place] [id number] Care Team Providers Care Phytopathology Teacher Name Role Phone Unavailable Primary Care Provider Unavailabl e Encounter Details Date Type Department Care Team (Late st Contact Info) Description 09/19/2015 Abstract [facility] Family & Internal Medicine [address] [phone] Bailey Pleitez APNP Social History Tobacco Use Types Packs/Day Years Used Date Smoking Tobacco: Never Assessed Comments Unknown Sex and Gender Information Value Date Recorded Sex Assigned at Not on file Legal Sex Female 7:16 PM CDT Gender Identity Not on file Sexual Orientation Not on file documented as of this encounter Progress Notes * Generic Conversion MD Domenic - 09/19/2015 8:20 AM CDT Message Recorded as Task Date: 09/18/2015 10:08 AM, Created By: Ilene Mistry Task Name: Medical Complaint Callback Assigned To: [facility] Nurse Team Regarding Patient: Milagros Torres, Status: In Progress Comment: Ilene Mistry - 18 Sep 2015 10:08 AM TASK CREATED Caller: Self; pt called stating her bp is still high, pt states she has had a couple of surgeries and her bp has been elevated and stayed elevated and she has been urged to call our office for Bailey's recommendation by her breast surgeon. Pt not able to make an appt as she states she has several scheduled for today and tomorrow. pt can be reached at the number on file. Mikala Traylor - 18 Sep 2015 4:37 PM TASK EDITED per Bailey pt needs appt for discussion. Bailey needs to know BP readings pt has gotten. Mikala Traylor - 18 Sep 2015 4:43 PM TASK EDITED pt states she has had two readings since she left office last. IY=798/89 today and UP=165/101 Friday. pt informed i will show Bailey these values tomorrow and return her call. Mikala Traylor - 18 Sep 2015 4:43 PM TASK IN PROGRESS Mikala Traylor - 19 Sep 2015 8:17 AM TASK EDITED per Bailey, pt needs to be seen to discuss treatment options. Mikala Traylor - 19 Sep 2015 8:20 AM TASK EDITED pt informed and scheduled appt for this afternoon. Signatures Electronically signed by : Mikala Traylor MA; Sep 19 2015 8:20AM TRANSMISSIONS SYSTEMS OPERATOR (Author) documented in this encounter Plan of Treatment Not on file documented as of this encounter Visit Diagnoses Not on filedocumented in this encounter
--- OUTSIDE RECORDS SUMMARY | 2024-04-25 14:18 | XMS_ITS | Encounter Summary ---
Author Organization [facility] Address [address] [place] [address]. [place] [address] Care Team Providers Care Child'S Nurse Name Role Phone Unavailable Primary Care Provider Unavailabl e Encounter Details Date Type Department Care Team (Latest Contact Info) Description 09/20/2015 Abstract [facility] Medical Group Social History Tobacco [...]
--- OUTSIDE RECORDS SUMMARY | 2024-04-25 14:18 | XMS_ITS | Encounter Summary ---
Author Organization [facility] Address [address] [place] [address]. [place], [place] [id number] [place] [id number] Care Team Providers Care Vocational Examiner Name Role Phone Unavailable Primary Care Provider Unavailabl e Encounter Details Date Type Department Care Team (Late st Contact Info) Description 03/22/2016 Abstract [facility] Medical [facility] Family & Internal Medicine [facility] [id number] [place] [phone] [place] [address] [place] [address] Social History Tobacco Use Types Packs/Day Years Used Date Smoking Tobacco: Never Assessed Comments Unknown Sex and Gender Information Value Date Recorded Sex Assigned at Not on file Legal Sex Female 7:16 PM CDT Gender Identity Not on file Sexual Orientation Not on file documented as of this encounter Last Filed Vital Signs Vital Sign Reading Time Taken Comments Blood Pressure 120/80 03/22/2016 4:14 PM HARM REDUCTION WORKER Pulse 74 03/22/2016 4:14 PM HARM REDUCTION WORKER Temperature - - Respiratory Rate - - Oxygen Saturation - - Inhaled Oxygen Concentration - - Weight 89.1 kg (196 lb 6.4 oz) 03/22/2016 4:14 P M HARM REDUCTION WORKER Height 167.6 cm (5' 6 ) 03/22/2016 4:14 PM HARM REDUCTION WORKER Body Mass Index 31.7 03/22/2016 4:14 PM HARM REDUCTION WORKER documented in this encounter Progress Notes * Ganga Galaviz MD - 03/22/2016 4:15 PM CST Chief Complaint pt c/o constipation since Friday. pt c/o pain on right side started Friday. pt had d & c yesterday. History of Present Illness HPI Free Text: pt states has had increasing right flank pain worst today and had a D&C yesterday no fever, or chills, no dysuria or frequency, has had constipation for the last five days Flank Pain: Milagros Torres presents with complaints of flank pain. Associated symptoms include costovertebral angle pain, back pain and constipation, but no dysuria, no hematuria, no fever, no vomiting, no nausea, no abdominal pain, no flank mass, no abdominal mass,no paresthesias, no leg pain, no anorexia, no abdominal distention, no urinary retention, no edema and no chills. Review of Systems See HPI for pertinent positives. Constitutional: no fever and no recent weight loss. ENT: no sore throat. Cardiovascular: no chest pain and no palpitations. Respiratory: no shortness of breath, no cough and no wheezing. Gastrointestinal: abdominal pain and constipation, but no diarrhea and no melena. Genitourinary: no dysuria and no pelvic pain. Integumentary: no skin rash. Musculoskeletal: no limb swelling. Neurological: no dizziness. Psychiatric: Normal. Active Problems 1. Anxiety (300.00) (F41.9) 2. Benign essential HTN (401.1) (I10) 3. BMI 32.0-32.9,adult (V85.32) (Z68.32) 4. Depression (311) (F32.9) Past Medical History 1. History of Abnormal [...] BY MOUTH EVERY NIGHT AT BEDTIME; Therapy: [id number] to (Evaluate:[id number]) Requested for: 12Mar2016; Last Rx:12Mar2016 Ordered Rx By: Bailey Pleitez; Dispense: 30 Days ; #:30 TAB; Refill: 0; For: Anxiety; ASHA = N; Print Rx; Last Updated By: Mikala Traylor; 03/12/2016 3:53:51 PM 2. HydroCHLOROthiazide 12.5 MG Oral Tablet; TAKE 1 TABLET DAILY; Therapy: 14Aug2015 to (Evaluate:02Apr2016) Requested for: 05Oct2015; Last Rx:05Oct2015 Ordered Rx By: Bailey Pleitez; Dispense: 30 Days ; #:30 Tablet; Refill: 5; For: Benign essential HTN; ASHA = N; Verified Transmission to [facility] [id number]; Last Updated By: hCeryl Philippe; 10/05/2015 9:17:19 AM 3. Oxycodone-Acetaminophen 5-325 MG Oral Tablet; TAKE 1 TABLET EVERY 4 HOURS NEEDED FOR PAIN; Therapy: 22Mar2016 to (Evaluate:[id number]) Recorded Rx By: Dr Jean Marie Reynoso; Dispense: 30 Days ; #:180 Tablet; Refill: 0; ASHA = N; Record; Last Updated By: Mikala Traylor; 03/22/2016 4:18:28 PM 4. Tamoxifen Citrate 20 MG Oral Tablet; TAKE 1 TABLET DAILY; Therapy: [id number] to Recorded Dispense: 0 Days ; #: Sufficient Tablet; Refill: 0; For: PMH: Abnormal mammogram; ASHA = N; Record; Last Updated By: Mikala Traylor; 11/17/2015 8:41:46 AM 5. Venlafaxine HCl ER 150 MG Oral Capsule Extended Release 24 Hour; TAKE 1 CAPSULE ONCE DAILY WITH FOOD; Therapy: 27Feb2016 to (Evaluate:27May2016) Requested for: 27Feb2016; Last Rx:27Feb2016 Ordered Rx By: Bailey Pleitez; Dispense: 30 Days ; #:30 Capsule Extended Release 24 Hour; Refill: 2; For: Anxiety; ASHA = N; Verified Transmission to [facility]; Last Updated By: Cheryl Philippe; 02/27/2016 9:51:51 AM Allergies 1. No Known Drug Allergies Recorded By: Mikala Traylor; 07/13/2015 7:08:04 AM Vitals Recorded: 22Mar2016 04:14PM Temperature 98.1 F Heart Rate 74 Respiration 16 Systolic 120 Diastolic 80 O2 Saturation 98 Height 5 ft 6 in Weight 196 lb 6.4 oz BMI Calculated 31.7 BSA Calculated 1.98 Physical Exam Constitutional General appearance: No acute distress, well appearing and well nourished. non toxic. Eyes Conjunctiva and lids: No swelling, erythema or discharge. Pupils and irises: Equal, round and reactive to light. Pulmonary Respiratory effort: No increased work of breathing or signs of respiratory distress. Auscultation of lungs: Clear to auscultation. Cardiovascular Auscultation of heart: Normal rate and rhythm, normal S1 and S2, without murmurs. Examination of extremities for edema and/or varicosities: Normal. Abdomen Abdomen: Abnormal. right CVA tenderness. Lymphatic Palpation of lymph nodes in neck: No lymphadenopathy. Musculoskeletal Gait and station: Normal. Skin Skin and subcutaneous tissue: Normal without rashes or lesions. Neurologic Cranial nerves: Cranial nerves 2-12 intact. Psychiatric Orientation to person, place, and time: Normal. Mood and affect: Normal. Assessment 1. Flank pain (789.09) (R10.9) Plan 1) Right flank pain: have discussed this with Dr Dugan in the ER and will send the patient down there now and follow up after Signatures Electronically signed by : Ganga Galaviz M.D.; Mar 23 2016 7:13PM HARM REDUCTION WORKER (Author) documented in this encounter Plan of Treatment Not on file documented as of this encounter Visit Diagnoses Not on filedocumented in this encounter
--- OUTSIDE RECORDS SUMMARY | 2024-04-25 14:19 | XMS_ITS | Encounter Summary ---
Author Organization [facility] Address [address] [place] [address]. [place], [place] [id number] [place] [address] Care Team Providers Care Director Instructional Material Name Role Phone Unavailable Primary Care Provider Unavailabl e Encounter Details Date Type Department Care Team (Late st Contact Info) Description 07/13/2015 Abstract [facility] Family & Internal Medicine [address] [phone] Bailey Pleitez APNP Social History [...] Sign Reading Time Taken Comments Blood Pressure 134/94 07/13/2015 7:03 AM CASE FINISHER Pulse 71 07/13/2015 7:03 AM CASE FINISHER Temperature - - Respiratory Rate - - Oxygen Saturation - - Inhaled Oxygen Concentration - - Weight 97.9 kg (215 lb 12.8 oz) 07/13/2015 7:03 AM CASE FINISHER Height 167.6 cm (5' 6 ) 07/13/2015 7:03 AM CASE FINISHER Body Mass Index 34.83 07/13/2015 7:03 AM CASE FINISHER documented in this encounter Progress Notes * WHITNEY Daley - 07/13/2015 1:46 PM CST Message No findings that require action at this time. Will discuss further at FU visit in 7-10 days Verified Results CBC W Differential 13Jul2015 08:05AM Bailey Pleitez Test Name Result Flag Reference White Blood Cell Count (WBC) 5.6 x10'3/uL 4.4-11.0 Red Blood Cell Count (RBC) 4.50 x10'6/uL 4.50-5.10 Hemoglobin (HGB) 13.4 G/DL 12.3-15.3 Hematocrit (HCT) 41.4 % 35.9-44.6 Mean Corpuscular Volume (MCV) 92.0 FL 80.0-96.0 Mean Corpuscular Hgb (MCH) 29.8 PG 25.3-30.9 Mean Corpuscular Hgb Conc (MCH 32.4 G/DL 31.0-34.1 Red Cell Distrib Width (RDW) 13.0 % 12.4-15.1 Platelet Count (PLT) 254 x10'3/uL 151-353 Mean Platelet Volume (MPV) 12.3 FL H 9.6-12.0 RBC Morphology NORMAL Platelet Evaluation NORMAL WBC Morphology NORMAL Lymphocytes % (Auto) 32.8 % 15.8-45.0 Neutrophils % (Auto) 57.8 % 42.1-71.9 Monocytes % (Auto) 6.9 % 5.7-12.5 Eosinophils % (Auto) 1.8 % 0.0-5.6 Basophils % (Auto) 0.5 % 0.0-1.3 Total Absolute Neutrophils 3.26 x10'3/uL 1.40-6.00 Immature Granulocytes 0.2 % 0.0-0.5 Compr Metabolic Prof ( CMP ) 13Jul2015 08:05AM Bailey Pleitez Test Name Result Flag Reference Glucose 94 MG/DL 70-105 Blood Urea Nitrogen (BUN) 9 MG/DL L 9.8-20.1 Creatinine 0.87 MG/DL 0.57-1.11 Sodium (Na) 136 MMOL/L 136-145 Potassium (K) 4.5 MMOL/L 3.5-5.1 Chloride (Cl) 105 MMOL/L 98-107 Carbon Dioxide (CO2) 23.0 MMOL/L 22-29 Anion Gap 12.5 MMOL/L 10.0-24.0 Osmolality Calc 270 MOSM/KG L 271-290 Calcium 9.5 MG/DL 8.4-10.2 Total Bilirubin 0.5 MG/DL 0.2-1.2 Total Protein 7.7 G/DL 6.4-8.3 Albumin 4.2 G/DL 3.5-5.0 AST/GOT 52 UNITS/L H 5-34 ALT/GPT 74 UNITS/L H 6-55 Alkaline Phosphatase (ALKP) 94 UNITS/L 30-130 BUN Creatinine Ratio 10.3 6.0-26.0 A:G Ratio 1.2 RATIO 1.1-1.9 Glomerular Filt Rate Calc (Report) >60 >60 GFR Reference Range: Kidney Failure - <15mL/min Chronic Kidney Disease - <60mL/min Normal Kidney Function - >60mL/min GFR calculation is not recommended for Patients less than 18 years or greater than 70 years as per the national Kidney Foundation. If the patient is -Ukrainian, multiply results by 1.21 Hemoglobin A1C ( HA1C ) 13Jul2015 08:05Bailey Calderon Test Name Result Flag Reference Hemoglobin A1c 5.6 % <5.7 INCREASED RISK OF DIABETES <5.7% NON-DIABETES 5.7-6.4% INCREASED RISK FOR FUTURE DIABETES > OR = 6.5 CONSISTENT WITH DIABETES STANDARDS OF MEDICAL CARE IN DIABETES-2010 DIABETES CARE, 33(SUPP 1): S1-S61,2009 Lipid W/ Calculated LDL 13Jul2015 08:05Bailey Calderon Test Name Result Flag Reference CHOLESTEROL 233 MG/DL H <200 TRIGLYCERIDE 225 MG/DL H <150 HDL CHOLESTEROL 36 MG/DL L >55 LDL CALCULATED 152 MG/L H <130 CHOL/HDL RATIO 6.5 INTERPRETATION OF RESULTS NHLBI RECOMMENDED RANGES CHOLESTEROL MG/DL LDL MG/DL DESIRABLE <200 <130 BORDERLINE 200-239 130-159 HIGH RISK >240 >160 REFERENCE VALUE FOR HDL CHOLESTEROL RISK LEVEL MALE MG/DL FEMALE MG/DL DECREASED >45 >55 AVERAGE 45 55 INCREASED <45 <55 TSH W Reflex Free T4 13Jul2015 08:05Bailey Calderon Test Name Result Flag Reference TSH w Reflex Free T4 3.25 uIU/mL 0.35-4.94 FREE T4 NOT INDICATED * WHITNEY Daley - 07/13/2015 7:00 AM CST Reason For Visit New Patient Visit Chief Complaint pt here to establish care. pt concerned of high BP readings at Urgent Care and OBGYN couple weeks ago. she just had abnormal mammogram and needs biopsy on left breast. History of Present Illness HM, Adult Female: The patient is being seen for a health maintenance evaluation. Social History: She is . 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 The patient has never smoked cigarettes. She reports occasional alcohol use. General Health: The patient's health since the last visit is described as good. She has regular dental visits. The patient reports her last dental visit was 1 year ago. She complains of vision problems. Vision care includes wearing glasses and reports having a recent eye exam. She denies hearing loss. Screening: Breast cancer screening includes a mammogram performed June 22, 2015 and Pt had anabnormal mammogram, followed by and abnormal diagnostic exam and is waiting for referral and evaluation to [facility] for further exam and testing. She is being managed by her CAD MANAGER. She has significant Hxof breast Ca in a sister who at age 56, and her mother of lung Ca at age 69. She hasn't been previously screened for colorectal cancer. Review of Systems See HPI for pertinent positives. Constitutional: negative. Head and Face: negative. Eyes: negative. ENT: negative. Cardiovascular: negative. Respiratory: Reports recent URI and taking antibiotics for it, shortness of breath and cough. Gastrointestinal: negative. Genitourinary: negative. Musculoskeletal: negative. Integumentary negative. Breasts Reports having abnormal mammogram. Psychiatric: Reports having a headache, from all the crying. . Hematologic and Lymphatic: negative. Neurological headache. Endocrine Negative. Surgical History 1. History of Section ?? 1990 Family History Mother 1. Family history of 2. Family history of cerebrovascular accident (CVA) (V17.1) (Z82.3) 3. Family history of lung cancer (V16.1) (Z80.1) Father 4. Family history of Social History ? Never a smoker ?? Social alcohol use (Z78.9) Current Meds 1. No Reported Medications Recorded ASHA = N; ; Last Updated By: Mikala Traylor; 07/13/2015 7:08:04 AM Allergies 1. No Known Drug Allergies Recorded By: Mikala Traylor; 07/13/2015 7:08:04 AM Vitals Recorded: 13Jul2015 07:03AM Temperature 97.8 F Heart Rate 71 Respiration 20 Systolic 134 Diastolic 94 O2 Saturation 98 Height 5 ft 6 in Weight 215 lb 12.8 oz BMI Calculated 34.83 BSA Calculated 2.07 Physical Exam Constitutional General appearance: Abnormal. appears tired. Head and Face Head and face: Normal. Palpation of the face and sinuses: No sinus tenderness. Eyes Conjunctiva and lids: No swelling, erythema or discharge. Pupils and irises: Equal, round, reactive to light. Ears, Nose, Mouth, and Throat External inspection of ears and nose: Normal. Otoscopic examination: Tympanic membranes translucent with normal light reflex. Canals patent without erythema. Hearing: Normal. Lips, teeth, and gums: Normal, good dentition. Oropharynx: Normal with no erythema, edema, exudate or lesions. Neck Neck: Supple, symmetric, trachea midline, no masses. Thyroid: Normal, no thyromegaly. Pulmonary Respiratory effort: No increased work of breathing or signs of respiratory distress. Auscultation of lungs: Clear to auscultation. Cardiovascular Auscultation of heart: Normal rate and rhythm, normal S1 and S2, no murmurs. Pedal pulses: 2+ bilaterally. Examination of extremities for edema and/or varicosities: Normal. Abdomen Abdomen: Non-tender, no masses. Liver and spleen: No hepatomegaly or splenomegaly. Examination for hernias: No hernia appreciated. Lymphatic Palpation of lymph nodes in neck: No lymphadenopathy. Palpation of lymph nodes in axillae: Abnormal. left node enlargement. Musculoskeletal Gait and station: Normal. Digits and nails: Normal without clubbing or cyanosis. Joints, bones, and muscles: Normal. Range of motion: Normal. Stability: Normal. Muscle strength/tone: Normal. Psychiatric Judgment and insight: Normal. Orientation to person, place, and time: Normal. Mood and affect: Normal. Assessment 1. Abnormal mammogram (793.80) (R92.8) 2. Elevated blood pressure (401.9) (I10) 3. Encounter for preventive health examination (V70.0) (Z00.00) Plan Abnormal mammogram 1. CA 125 Ag; Status:In Progress - Specimen/Data Collected; Done: 13Jul2015 Perform:[facility]; Due:12Aug2015; Last Updated By:Cindy Grajeda; 07/13/2015 8:05:10 AM;Ordered; For:Abnormal mammogram; Ordered By:Bailey Pleitez; Abnormal mammogram, Elevated blood pressure 2. *Venipuncture In Office; Status:Complete; Done: 13Jul2015 Perform:In Office; Due:12Aug2015; Last Updated By:Cindy Grajeda; 07/13/2015 8:17:02 AM;Ordered; For:Abnormal mammogram, Elevated blood pressure; Ordered By:Bailey Pleitez; 3. CBC W Differential; Status:In Progress - Specimen/Data Collected; Done: 13Jul2015 Perform:. [facility]; Due:12Aug2015; Last Updated By:Cindy Grajeda; 07/13/2015 8:05:10 AM;Ordered; For:Abnormal mammogram, Elevated blood pressure; Ordered By:Bailey Pleitez; 4. Compr Metabolic Prof ( CMP ); Status:In Progress - Specimen/Data Collected; Done: 13Jul2015 Perform:. [facility]; Due:12Aug2015; Last Updated By:Cindy Grajeda; 07/13/2015 8:05:10 AM;Ordered; For:Abnormal mammogram, Elevated blood pressure; Ordered By:Bailey Pleitez; 5. Hemoglobin A1C ( HA1C ); Status:In Progress - Specimen/Data Collected; Done: 13Jul2015 Perform:. [facility]; Due:12Aug2015; Last Updated By:Cindy Grajeda; 07/13/2015 8:05:10 AM;Ordered; For:Abnormal mammogram, Elevated blood pressure; Ordered By:Bailey Pleitez; 6. Lipid W/ Calculated LDL; Status:In Progress - Specimen/Data Collected; Done: 13Jul2015 Perform:. [facility]; Due:12Aug2015; Last Updated By:Cindy Grajeda; 07/13/2015 8:05:10 AM;Ordered; For:Abnormal mammogram, Elevated blood pressure; Ordered By:Bailey Pleitez; 7. TSH W Reflex Free T4; Status:In Progress - Specimen/Data Collected; Done: 13Jul2015 Perform:. [facility]; Due:12Aug2015; Last Updated By:Cindy Grajeda; 07/13/2015 8:05:10 AM;Ordered; For:Abnormal mammogram, Elevated blood pressure; Ordered By:Bailey Pleitez; Discussion/Summary HM- Labs ordered and PE performed, discussed diet exercise and medical management of current concerns. Elevated BP- Pt is to have BP checked daily and keep at record to bring in at next visit. Encouraged her to research Healthy eating plans and weight bearing exercise plans that she can incorporate into her daily routine. Abnormal Mammogram- Currently being managed by CAD MANAGER, will follow along and assist with managementas needed. Ca 125 added to routine labs, will forward labs to appointment when received. Pt to FU in 7-14 days for follow up, review of labs and to establish plan of care. Signatures Electronically signed by : Bailey Pleitez NP; Jul 13 2015 9:52AM CASE FINISHER (Author) Electronically signed by : Ganga Galaviz M.D.; Jul 26 2015 7:26AM CASE FINISHER (Author) documented in this encounter Plan of Treatment Not on file documented as of this encounter Procedures Procedure Name Priority Date/Time Associated Diagnosis Comments LIPID W/CALC LDL Routine 07/13/2015 8:05 AM CASE FINISHER TSH W/REFLEX Routine 07/13/2015 8:05 AM CASE FINISHER HEMOGLOBIN, GLYCOSYLATED Routine 07/13/2015 8:05 AM CASE FINISHER COMPREHENSIVE METABOLIC PANEL Routine 07/13/2015 8:05 AM CASE FINISHER IMMUNOASSAY, TUMOR ANTIGEN, CA 125 Routine 07/13/2015 8:05 AM CASE FINISHER CBC W/DIFF AUTOMATED Routine 07/13/2015 8:05 AM CASE FINISHER documented in this encounter Results * IMMUNOASSAY, TUMOR ANTIGEN, CA 125 (07/13/2015 8:05 AM CASE FINISHER) CA 125 26.9 <35 U/mL [facility] T O EPIC CONVERSION Comment: Result Comment: ?? TESTING PERFORMED BY GUY PLUGMAN CHEMILUMINESCENT METHOD THE MEASURED VALUE OF CA125 IN ANY GIVEN SPECIMEN CAN VARY DUE TO DIFFERENCES IN ASSAY METHODS AND REAGENT SPECIFICITY, THEREFORE, VALUES FROM DIFFERENT ASSAY METHODS CANNOT BE USED INTERCHANGEABLY. ? TESTING PERFORMED AT [facility] [address] [place] [address] 07/13/2015 8:05 AM CASE FINISHER 07/13/2015 8:05 AM CASE FINISHER Narrative [facility] TO EPIC CONVERSION - 07/13/2015 9:06 PM CASE FINISHER Result Communication: Call patient with results [facility] Final Result Performing Organization Address [facility] de Phone Number [facility] TO EPIC CONVERSION * HEMOGLOBIN, GLYCOSYLATED (07/13/2015 8:05 AM CASE FINISHER) HGB A1C 5.6 <5.7 % [facility] T O EPIC CONVERSION Comment: Result Comment: ?? INCREASED RISK OF DIABETES <5.7% ?NON-DIABETES 5.7-6.4% INCREASED RISK FOR FUTURE DIABETES > OR = 6.5 CONSISTENT WITH DIABETES ?? STANDARDS OF MEDICAL CARE IN DIABETES-2010 DIABETES CARE, 33(SUPP 1): S1-S61,2010 07/13/2015 8:05 AM CASE FINISHER 07/13/2015 8:05 AM CASE FINISHER Narrative [facility] TO EPIC CONVERSION - 07/13/2015 1:07 PM CASE FINISHER Result Communication: Call patient with results [facility] Final Result Performing Organization Address [facility] de Phone Number [facility] TO EPIC CONVERSION * (ABNORMAL) COMPREHENSIVE METABOLIC PANEL (07/13/2015 8:05 AM CASE FINISHER) SODIUM S/P/B 136 136 - 145 MMOL/L [facility] TO EPIC CONVERSION POTASSIUM S/P/B 4.5 3.5 - 5.1 MMOL/L [facility] TO EPIC CONVERSION CHLORIDE S/P/B 105 98 - 107 MMOL/L [facility] TO EPIC CONVERSION CO2 23.0 22 - 29 MMOL/L [facility] TO EPIC CONVERSION ANION GAP 12.5 10.0 - 24.0 MMOL/L [facility] TO EPIC CONVERSION BUN 9(L) 9.8 - 20.1 MG/DL [facility] TO EPIC CONVERSION CREATININE S/P/B 0.87 0.57 - 1.11 MG/DL [facility] TO EPIC CONVERSION GFR ESTIMATE >60 ?? GFR Reference Range: Kidney Failure - <15mL/min Chronic Kidney Disease - <60mL/min Normal Kidney Function - >60mL/min GFR calculation is not recommended for Patients less than 18 years or greater than 70 years as per the national Kidney Foundation. If the patient is -Bella n, multiply results by 1.21 >60 ml/min/1 .73 m2 [facility] TO EPIC CONVERSION BUN CREATININE RATIO 10.3 6.0 - 26.0 [facility] TO EPIC CONVERSION GLUCOSE 94 70 - 105 MG/DL [facility] TO EPIC CONVERSION OSMOLALITY (CALC) 270(L) 271 - 290 MOSM/KG [facility] TO EPIC CONVERSION CALCIUM S/P/B 9.5 8.4 - 10.2 MG/DL [facility] TO EPIC CONVERSION BILIRUBIN TOTAL S/P/B 0.5 0.2 - 1.2 MG/DL [facility] TO EPIC CONVERSION AST 52(H) 5 - 34 UNITS/L [facility] TO EPIC CONVERSION ALT 74(H) 6 - 55 UNITS/L [facility] TO EPIC CONVERSION ALKALINE PHOSPHATASE S/P/B 94 30 - 130 UNITS/L [facility] TO EPIC CONVERSION TOTAL PROTEIN S/P/B 7.7 6.4 - 8.3 G/DL [facility] TO EPIC CONVERSION ALBUMIN S/P/B 4.2 3.5 - 5.0 G/DL [facility] TO EPIC CONVERSION A/G RATIO 1.2 1.1 - 1.9 RATIO [facility] TO EPIC CONVERSION 07/13/2015 8:05 AM CASE FINISHER 07/13/2015 8:05 AM CASE FINISHER Narrative [facility] TO EPIC CONVERSION - 07/13/2015 11:40 AM CASE FINISHER Result Communication: Call patient with results us [facility] Final Result [facility] TO EPIC CONVERSION * (ABNORMAL) LIPID W/CALC LDL (07/13/2015 8:05 AM CASE FINISHER) CHOLESTEROL 233(H) <200 MG/DL [facility] TO EPIC CONVERSION TRIGLYCERIDES 225(H) <150 MG/DL [facility] TO EPIC CONVERSION HDL 36(L) >55 MG/DL [facility] T O EPIC CONVERSION LDL (CALCULATED) 152(H) <130 MG/L [facility] TO EPIC CONVERSION CHOL/HDL RATIO 6.5 [facility] OUP TO EPIC CONVERSION Comment: Result Comment: ? INTERPRETATION OF RESULTS NHLBI RECOMMENDED RANGES ? CHOLESTEROL MG/DL ?LDL MG/DL ?DESIRABLE ? <200 ?<130 ?BORDERLINE ?200-239 ? 130-159 ?HIGH RISK ? >240 ?>160 ?? REFERENCE VALUE FOR HDL CHOLESTEROL ?RISK LEVEL ??MALE MG/DL ? FEMALE MG/DL ?DECREASED ?>45 ?>55 ?AVERAGE ? 45 ? 55 ?INCREASED ?<45 ?<55 07/13/2015 8:05 AM CASE FINISHER 07/13/2015 8:05 AM CASE FINISHER Narrative [facility] TO EPIC CONVERSION - 07/13/2015 11:40 AM CASE FINISHER Result Communication: Call patient with results [facility] Final Result [facility] TO EPIC CONVERSION * (ABNORMAL) CBC W/DIFF AUTOMATED (07/13/2015 8:05 AM CASE FINISHER) WBC 5.6 4.4 - 11.0 x10'3/uL [facility] TO EPIC CONVERSION RBC 4.50 4.50 - 5.10 x10'6/uL [facility] TO EPIC CONVERSION HGB 13.4 12.3 - 15.3 G/DL [facility] TO EPIC CONVERSION HCT 41.4 35.9 - 44.6 % [facility] TO EPIC CONVERSION MCV 92.0 80.0 - 96.0 FL [facility] TO EPIC CONVERSION MCH 29.8 25.3 - 30.9 PG [facility] TO EPIC CONVERSION MCHC 32.4 31.0 - 34.1 G/DL [facility] TO EPIC CONVERSION RDW 13.0 12.4 - 15.1 % [facility] TO EPIC CONVERSION PLT 254 151 - 353 x10'3/uL [facility] TO EPIC CONVERSION MPV 12.3(H) 9.6 - 12.0 FL [facility] TO EPIC CONVERSION BASOPHILS % 0.5 0.0 - 1.3 % [facility] TO EPIC CONVERSION EOSINOPHILS % 1.8 0.0 - 5.6 % [facility] TO EPIC CONVERSION NEUTROPHILS % 57.8 42.1 - 71.9 % [facility] TO EPIC CONVERSION LYMPHOCYTES % 32.8 15.8 - 45.0 % [facility] TO EPIC CONVERSION MONOCYTES % 6.9 5.7 - 12.5 % [facility] TO EPIC CONVERSION IMMATURE GRANS % 0.2 0.0 - 0.5 % [facility] TO EPIC CONVERSION ABS. NEUTROPHILS TOTAL 3.26 1.40 - 6.00 x10'3/uL [facility] TO EPIC CONVERSION WBC MORPHOLOGY NORMAL [facility] OUP TO EPIC CONVERSION PLT MORPH. NORMAL [facility] TO EPIC CONVERSION RBC MORPHOLOGY NORMAL [facility] OUP TO EPIC CONVERSION 07/13/2015 8:05 AM CASE FINISHER 07/13/2015 8:05 AM CASE FINISHER Narrative [facility] TO EPIC CONVERSION - 07/13/2015 11:18 AM CASE FINISHER Result Communication: Call patient with results us [facility] Final Result [facility] TO EPIC CONVERSION * TSH W/REFLEX (SNS) (07/13/2015 8:05 AM CASE FINISHER) TSH 3.25 0.35 - 4.94 uIU/mL [facility] TO EPIC CONVERSION Comment:Result Comment: FREE T4 NOT INDICATED 07/13/2015 8:05 AM CASE FINISHER 07/13/2015 8:05 AM CASE FINISHER Narrative [facility] TO EPIC CONVERSION - 07/13/2015 11:55 AM CASE FINISHER Result Communication: Call patient with results us [facility] Final Result [facility] TO EPIC CONVERSION documented in this encounter Visit Diagnoses Not on filedocumented in this encounter
--- OUTSIDE RECORDS SUMMARY | 2024-04-25 14:19 | XMS_ITS | Encounter Summary ---
Author Organization [facility] Address [address] [place] [address]. [place], [place] [address] [place] [address] Care Team Providers Care Education And Training Coordinator Name Role Phone Unavailable Primary Care Provider Unavailabl e Encounter Details Date Type Department Care Team (Late st Contact Info) Description 07/13/2015 Abstract [facility] [address] [place], [place] [id number] Bailey Pleitez APNP Social History Tobacco Use [...] of this encounter Visit Diagnoses Diagnosis Other abnormal and inconclusive findings on diagnostic imaging of breast documented in this encounter
--- OUTSIDE RECORDS SUMMARY | 2024-04-25 14:19 | XMS_ITS | Encounter Summary ---
Author Organization [facility] Address [address] [place] [address]. [place], [place] [address] [place] [address] Care Team Providers Care Diagnostic Medical Sonographer Name Role Phone Unavailable Primary Care Provider Unavailabl e Encounter Details Date Type Department Care Team (Latest Contact Info) Description 07/14/[address] [facility] Social History Tobacco Use Types Packs/Day Years Used Date Smoking Tobacco: Never Assessed Comments Unknown Sex and Gender Information Value Date Recorded Sex Assigned at Not on file Legal Sex Female 7:16 PM CDT Gender Identity Not on file Sexual Orientation Not on file documented as of this encounter Progress Notes * Generic Conversion MD Domenic - 07/14/2015 2:36 PM CST Message Recorded as Task Date: 07/13/2015 01:46 PM, Created By: Bailey Pleitez Task Name: Call Patient with results Assigned To: Bailey Pleitez Regarding Patient: Milagros Torres, Status: Active Comment: Bailey Pleitez - 13 Jul 2015 1:46 PM Patient No findings that require action at this time. Will discuss further at FU visit in 7-10 days Mikala Traylor - 13 Jul 2015 3:53 PM TASK EDITED waiting on CA125. Mikala Traylor 14 Jul 2015 2:34 PM TASK EDITED CA125 WNL 26.9U/ml. Mikala Traylor 14 Jul 2015 2:36 PM TASK EDITED pt informed of fasting lab results and vocalized understanding. pt will F/U and discuss on July 20 as scheduled. Signatures Electronically signed by : Mikala Traylor MA; Jul 14 2015 2:36PM COMMERCIAL ART INSTRUCTOR (Author) * WHITNEY Daley - 07/14/2015 2:31 PM CST Message Normal value Verified Results CA 125 Ag 13Jul2015 08:05AM Bailey Pleitez Test Name Result Flag Reference CA 125 Antigen 26.9 U/mL <35 TESTING PERFORMED BY GUY NUT DEHYDRATOR OPERATOR CHEMILUMINESCENT METHOD THE MEASURED VALUE OF CA125 IN ANY GIVEN SPECIMEN CAN VARY DUE TO DIFFERENCES IN ASSAY METHODS AND REAGENT SPECIFICITY, THEREFORE, VALUES FROM DIFFERENT ASSAY METHODS CANNOT BE USED INTERCHANGEABLY. [place] [address] documented in this encounter Plan of Treatment Not on file documented as of this encounter Visit Diagnoses Not on filedocumented in this encounter
--- OUTSIDE RECORDS SUMMARY | 2024-04-25 14:19 | XMS_ITS | Encounter Summary ---
Author Organization [facility] Address [address] [place] [address]. [place], [place] [address] [place] [address] Care Team Providers Care Perishable Freight Inspector Name Role Phone Unavailable Primary Care Provider Unavailabl e Encounter Details Date Type Department Care Team (Late st Contact Info) Description 07/21/2015 Abstract [facility] Family & Internal Medicine [address] [address] Bailey Pleitez APNP Social History [...] Sign Reading Time Taken Comments Blood Pressure 138/94 07/21/2015 7:36 AM CDT Pulse 76 07/21/2015 7:36 AM CDT Temperature - - Respiratory Rate - - Oxygen Saturation - - Inhaled Oxygen Concentration - - Weight 97.5 kg (215 lb) 07/21/2015 7:36 AM CDT Height 167.6 cm (5' 6 ) 07/21/2015 7:36 AM CDT Body Mass Index 34.7 07/21/2015 7:36 AM CDT documented in this encounter Progress Notes * WHITNEY Daley - 07/21/2015 7:30 AM CDT Chief Complaint pt here for 1 week F/U for elevated BP. BP readings taken at [facility] 161/94 on Friday, 176/87 . History of Present Illness Hypertension (Initial): The patient is being seen for a routine clinic follow-up of essential hypertension. The patient is currently asymptomatic. No associated symptoms are reported. Current treatment includes dietary modification, exercise and sodium restriction. By report, there is good tolerance of treatment and fair symptom control. Risk factors: obesity and physical inactivity. Review of Systems See HPI for pertinent positives. Constitutional: Normal. ENT: normal. Cardiovascular: Normal. Respiratory: Normal. Gastrointestinal: Normal. Genitourinary: Normal. Integumentary: Normal. Musculoskeletal: Normal. Neurological: Normal. Psychiatric: Normal. Active Problems 1. Abnormal mammogram (793.80) (R92.8) 2. Elevated blood pressure (401.9) (I10) Surgical History 1. History of Section ?? 1990 Family History Mother 1. Family history of 2. Family history of cerebrovascular accident (CVA) (V17.1) (Z82.3) 3. Family history of lung cancer (V16.1) (Z80.1) Father 4. Family history of Sister 5. Family history of malignant neoplasm of breast (V16.3) (Z80.3) Social History ? Never a smoker ?? Social alcohol use (Z78.9) Current Meds 1. No Reported Medications Recorded Allergies 1. No Known Drug Allergies Vitals Recorded: 21Jul2015 07:36AM Temperature 97.6 F Heart Rate 76 Respiration 20 Systolic 138 Diastolic 94 O2 Saturation 100 Height 5 ft 6 in Weight 215 lb BMI Calculated 34.7 BSA Calculated 2.06 Physical Exam Pulmonary Respiratory effort: No increased work of breathing or signs of respiratory distress. Auscultation of lungs: Clear to auscultation. Cardiovascular Auscultation of heart: Normal rate and rhythm, normal S1 and S2, without murmurs. Examination of extremities for edema and/or varicosities: Normal. Musculoskeletal Gait and station: Normal. Psychiatric Orientation to person, place, and time: Normal. Mood and affect: Normal. Assessment 1. Benign essential HTN (401.1) (I10) Plan Benign essential HTN 1. Lisinopril 10 MG Oral Tablet; TAKE 1 TABLET DAILY Rx By: Bailey Pleitez; Dispense: 30 Days ; #:30 Tablet; Refill: 3; For: Benign essential HTN; ASHA = N; Sent To: [facility] # [id number] Discussion/Summary HTN- Pt with elevated blood pressure readings on 3 separate occasions, as well as multiple elevatedreadings during the week. Will initiate treatment with Lisinopril. Labs reviewed and again reinforced healthy eating and weight bearing exercise. FU in 6 months or sooner if needed. Signatures Electronically signed by : Bailey Pleitez NP; Jul 21 2015 8:18AM RN TRAINING (Author) documented in this encounter Plan of Treatment Not on file documented as of this encounter Visit Diagnoses Not on filedocumented in this encounter
== END 2024-04-19 10:05 | disposition home or self-care (01) ==
PROVIDERS: Emergency Provider Nurse Practitioner; PCP Family Medicine
DX: J98.11 Atelectasis (principal); J18.9 Pneumonia, unspecified organism; I12.9 Hypertensive chronic kidney disease with stage 1 through stage 4 chronic kidney disease, or unspecified chronic kidney disease; N18.30 Chronic kidney disease, stage 3 unspecified; E78.5 Hyperlipidemia, unspecified; K21.9 Gastro-esophageal reflux disease without esophagitis; M19.90 Unspecified osteoarthritis, unspecified site; K76.0 Fatty (change of) liver, not elsewhere classified; Z96.652 Presence of left artificial knee joint
CPT/HCPCS: 71046; 99213; G0463

== ENCOUNTER 2024-05-26 07:39 | Outpatient (CLI) | payer OTHER, SELFPAY ==
[2024-05-26 08:30] LABS: Strep Group A RT-PCR NOT DETECTED (Negative)
[2024-05-26 08:42] LABS: Influenza A QL RT-PCR Negative (Negative); Influenza B QL RT-PCR Negative (Negative); RSV RNA, RT-PCR Negative (Negative); SARS-CoV-2 RNA PCR Positive (Negative)
--- OUTSIDE RECORDS SUMMARY | 2024-05-27 21:17 | XMS_ITS | Clinical Summary ---
Author Organization [facility] App[facility] Address [address] [place] [address] Care Team Providers Care Rn X Ray Name Role Phone Cole Ku MD Unavailable Willis Veras MD Primary Care Provider Elizabeth Garcia MD Unavailable Source Comments [facility],non-owned Affiliates and Associated Physician Practices is amultiple site organization consisting of ambulatory clinics and hospital sitesin [place], [place], [place] and [place]. This disclosure is being madepursuant to the Care Everywhere program and may not contain all information available regarding this patient. Last updated 18.[facility] Allergies No known active allergies Medications * [...] tablet by mouth once daily 08/06/2022 Active [place]-3 Fatty Acids (fish oil) 1000 MG capsule [...] Only [facility] [address] [facility], [place] [address] Marlena Mccoy, LOAN SERVICING SPECIALIST-DECK MATE Family history of hemochromatosis from Last 3 Months Immunizations Name Administration Dates Next Due Covedgar Bobby primary monoval ent 12+ yr 0.3mL Purple [...] st Contact Info) Description 06/02/2024 10:30 AM BLISS PRESS OPERATOR Office Visit [facility] - Orthopedic Surgery [address] [place] [phone] Kevin Britton MD [address] [place] [address] 08/10/2024 1:00 PM CDT [facility] [address] [facility] [address] [place] [phone] Daja Mir MD [address] [facility] [address] 10/26/2024 1:00 PM CDT Office Visit [facility] - Hematology/Oncology [address] [place] [phone] Elizabeth Garcia MD [address] [facility] [address] [place] [address] 01/17/2025 12:30 PM CDT Procedure visit [facility] - GI [address] [place] [phone] 01/17/2025 1:00 PM CDT Office Visit [facility] - GI [address] [place] [phone] Marlena Mccoy, LOAN SERVICING SPECIALIST-DECK MATE [address] [place] [address] [place] [address] Health Maintenance Due Date Last Done Comments COLOGUARD (AGES 45-75) - COLON CA SCREENING 1965 CT COLONOGRAPHY - COLON CA SCREENING 1965 FIT - COLON CA SCREENING 1965 FLEX SIG - COLON CA SCREENING 1965 HIV SCREENING 07/19/1979 HEPATITIS B VACCINE (1 of 3 - 19+ 3-dose series) 07/19/1983 PNEUMOCOCCAL VACCINE 50+ (1 of 1 - PCV) 2014 ZOSTER VACCINE (1 of 2) 2014 COVID-19 VACCINE (3 - season) 2024 09/24/2020, 08/27/2020 INFLUENZA VACCINE (#1) 2024 DEPRESSION SCREENING 05/05/2024 MAMMOGRAM 10/08/2025 10/09/2023, 10/03, 10/19/2021, Additional history exists SCREENING FOR DIABETES 04/12/2027 [...] patient's age to complete this topic MENINGOCOCCAL (Group B) VACCINE Aged Out No longer eligible based on patient's age to complete this topic MENINGOCOCCAL VACCINE Aged Out No gin marquita eligible based on patient's age to complete this topic Goals Goal Patient Goal Type Associated Problems Recent Progress Patient-Stated? Author Mobility General On track( 021 9:08 AM BLISS PRESS OPERATOR) No Tika Pope, RN Note: Expected [...] last dose Medical Devices Implanted Type Area Import Coordinator Device Identifier Shelf Expiration Date Model / Serial / Lot Ins Tib 3-4 11mm Kn Xlpe Dsh Legion Implanted:Qty: 1 on 02/01/2022 by Kevin Britton MD at [facility] Left: Knee [employer] 06/21/2030 [id number] / / [id number] Cmpnt Fem Kn Lt 5 Crcte Rtn Legion Rondon Implanted:Qty: 1 on 02/01/2022 by Kevin Britton MD at [facility] Left: Knee [employer] 05/26/2031 [id number] / / [id number] Stem Tib 55mm 18mm Prfx Mtphsl Kn Implanted:Qty: 1 on 02/01/2022 by Kevin Britton MD at [facility] Left: Knee [employer] 01/22/2030 [id number] / / [id number] Bsplt Tib Legion 4 Kn Lt Rondon Por Implanted:Qty: 1 on 02/01/2022 by Kevin Britton MD at [facility] Left: Knee [employer] 07/04/2029 [id number] / / [id number] Screw Bsplt 25mm 6.5mm Gns2 Kn Tib Por Implanted:Qty: 1 on 02/01/2022 by Kevin Britton MD at [facility] Left: Knee [employer] 10/22/2030 [id number] / / [id number] Screw Bsplt 20mm 6.5mm Gns2 Kn Tib Por Implanted:Qty: 1 on 02/01/2022 by Kevin Britton MD at [facility] Left: Knee [employer] 09/10/2031 [id number] / / [id number] Screw 6.5mm 30mm Sphrcl Head Hip Actb Implanted:Qty: 1 on 02/01/2022 by Kevin Britton MD at [facility] Left: Knee [employer] 10/03/2031 [id number] / / [id number] Screw Bsplt 30mm 6.5mm Gns2 Kn Tib Por Implanted:Qty: 1 on 02/01/2022 by Kevin Britton MD at [facility] Left: Knee [employer] 10/22/2030 [id number] / / [id number] Liletta Intrauterine System Implanted:Qty: 1 on 10/16/2022 by Cole Garcia MD at [facility] N/A: Uterus [employer] 06/05/2025 [id number] / / [id number] Procedures Procedure Name Priority Date/Time Associated Diagnosis Comments HEMOCHROMATOSIS MUTATION PANEL Routine 04/12/2024 9:44 AM BLISS PRESS OPERATOR Family history of hemochromatosis IRON + TIBC PANEL Routine 04/12/2024 9:4 4 AM BLISS PRESS OPERATOR Family history of hemochromatosis FERRITIN Routine 04/12/2024 9:44 AM BLISS PRESS OPERATOR Family history of hemochromatosis COMPREHENSIVE METABOLIC PANEL Routine 04/12/2024 9:44 AM BLISS PRESS OPERATOR Family history of hemochromatosis CBC W AUTO DIFFERENTIAL Routine 04/12/2024 9:44 AM BLISS PRESS OPERATOR Family history of hemochromatosis ENDOSCOPY, COLON, SCREENING Routine 02/03/2024 7:25 AM CDT MAMMO BILAT DIAGNOSTIC W [place] Routine 10/09/2023 2:14 PM CDT Abnormal mammogram HEPATITIS C ANTIBODY Routine 05/12/2020 10:28 AM BLISS PRESS OPERATOR NAFLD (nonalcoholic fatty liver disease) Elevated liver enzymes from Last 3 Months or Most Recently Relevant to Health Maintenance Results * HEMOCHROMATOSIS MUTATION PANEL (04/12/2024 9:44 AM BLISS PRESS OPERATOR) DNA Mutation Analysis See Below [facility] Comment: [...] clinical information reviewed by Lacie Sue, Ph.D., [facility]. DETAILED ASSAY INFORMATION: Hereditary hemochromatosis [...] variants in the HFE gene, C282Y (NM 784146.2: c.845G>A, p.Mir164Iuk) and H63D (NM 959999.2: c.187C>G, p.Hfl06Pvv), that are commonly associated with HH. These [...] Health care providers, please contact your local [employer]' genetic counselor or call [phone] ( ) for assistance with the interpretation of these results. This test was developed and its analytical performance characteristics have been determined by [employer] [facility]. It has not been cleared or approved by FDA. This assay has been validated pursuant to the CLIA regulations and is used for clinical purposes. For more information, please refer to http://education.[employer].Akvo/faq/hemochromatosis. (This link is being provided for informational/educational purposes only.) A portion of the testing was performed at [facility]. Reviewed and signed by Laboratory results and submitted clinical information reviewed by Lacie Sue, Ph.D., [facility], Signed on 04/22/2024 at 18:28 Test Performed at: [facility] [address] [facility] [place] ??[phone] PAULO HINDS MD,PHD,CARLOS Blood BLOOD SPECIMEN / Unknown 04/12/2024 9:44 AM BLISS PRESS OPERATOR 04/12/2024 9:44 AM BLISS PRESS OPERATOR Marlena Mccoy LOAN SERVICING SPECIALIST-DECK MATE LAB - CHEMI STRY ORDERABLES [facility] [address] [place] [address] * CBC WITH DIFFERENTIAL (04/12/2024 9:44 AM BLISS PRESS OPERATOR) White Blood Cell Count 7.4 3.8 - [...] 0.4 % [facility] Comment: Test Performed at: [facility] [address] [place], [place] ??[phone] KANE WAN MD Blood BLOOD SPECIMEN / Unknown 04/12/2024 9:44 AM BLISS PRESS OPERATOR 04/12/2024 9:44 AM BLISS PRESS OPERATOR Marlena Mccoy LOAN SERVICING SPECIALIST-DECK MATE LAB - HEMAT OLOGY ORDERABLES [facility] [address] [place] [address] * (ABNORMAL) COMPREHENSIVE METABOLIC PANEL (04/12/2024 9:44 AM BLISS PRESS OPERATOR) Glucose 106(H) 65 - 99 mg/dL [facility] [...] 29 U/L [facility] Comment: Test Performed at: [facility] [address] [place] [address] ??[phone] KANE WAN MD Blood BLOOD SPECIMEN / Unknown 04/12/2024 9:44 AM BLISS PRESS OPERATOR 04/12/2024 9:44 AM BLISS PRESS OPERATOR Marlena Mccoy APRN-DECK MATE LAB - CHEMI STRY ORDERABLES Performing Organization Address [facility] de Phone Number [place] [phone] * IRON + TIBC PANEL (04/12/2024 9:44 AM BLISS PRESS OPERATOR) Iron 158 45 - 160 mcg/dL [facility] TIBC 373 250 - 450 mcg/dL (calc) [facility] % Saturation 42 16 - 45 % (calc) [facility] Comment: Test Performed at: [facility] ??[phone] KANE WAN MD Blood BLOOD SPECIMEN / Unknown 04/12/2024 9:44 AM BLISS PRESS OPERATOR 04/12/2024 9:44 AM BLISS PRESS OPERATOR Marlena Mccoy APRN-DECK MATE LAB - CHEMI STRY ORDERABLES Performing Organization Address [facility] de Phone Number [address] [address] * FERRITIN (04/12/2024 9:44 AM BLISS PRESS OPERATOR) Ferritin 95 16 - 232 ng/mL [facility] Comment: Test Performed at: [employer] [address] [place] [address] ??[phone] KANE WAN MD Blood BLOOD SPECIMEN / Unknown 04/12/2024 9:44 AM BLISS PRESS OPERATOR 04/12/2024 9:44 AM BLISS PRESS OPERATOR Marlena Mccoy APRN-DECK MATE LAB - CHEMI STRY ORDERABLES [facility] [address] [address] * Endoscopy, Colon, Screening (02/03/2024 7:25 AM CDT) Report Endoscopy POC Endoscopy Department Report _ Patient Name: Milagros Torres ?Procedure Date: 02/03/2024 7:25 AM ?Date of : 1965 Classification: Outpatient ?Gender: Female Ethnicity: Not or ? Race: White _ Providers: ?Joseph Basilio MD Referring : ? Willis Veras MD; Marlena Mccoy, ?LOAN SERVICING SPECIALIST; Elizabeth Garcia MD Procedure: ?Colonoscopy Indications: ?High [...] bowel ?preparation was evaluated using the BBPS ([place] ?Bowel Preparation Scale) with scores of: Right [...] Procedure Code(s): ? --- Professional --- ? 83469, Colonoscopy, flexible; with biopsy, single or multiple Diagnosis Code(s): ?--- Professional --- ?Z86.010, Personal history of colonic polyps ?K63.89, Other specified diseases of intestine ?K64.8, Other hemorrhoids ?K57.30, Diverticulosis of large intestine without ?perforation or abscess without bleeding CPT copyright 2021 [employer]. All rights reserved. The codes documented in this report are preliminary and upon rn hospice review may be revised to meet current compliance requirements. Joseph Basilio MD 02/03/2024 8:47:53 AM Note Initiated On: 02/03/2024 7:25 AM Number of Addenda: 0 ? [facility] ? [address] [place] [address] [facility] 02/03/2024 7:25 AM CDT Joseph Basilio MD GI PROCEDURE ORDERABLES [facility] * MAMMO BILAT DIAGNOSTIC W [...] ??LIMITED LEFT BREAST ULTRASOUND (COMBINED REPORT) LOCATION: [facility] EXAM DATE: ??10/09/2023 HISTORY: Follow-up to [...] * HEPATITIS C ANTIBODY (05/12/2020 10:28 AM BLISS PRESS OPERATOR) Hepatitis C Antibody Non-react pura Non-reac tive 05/12/2020 11:54 AM BLISS PRESS OPERATOR [facility] Comment:Hepatitis C Antibody screen indicates no serologic evidence of past or current infection with Hepatitis C Virus. Patients with unexplained liver disease who are immunocompromised or suspected of having acute Hepatitis C infection may benefit from Nucleic Acid Test (KRISTIAN) for Hepatitis C Viral RNA to confirm Hepatitis C status. Blood BLOOD SPECIMEN / Unknown Lab Venipuncture / Unknown 05/12/2020 10:28 AM BLISS PRESS OPERATOR 05/12/2020 11:02 AM BLISS PRESS OPERATOR Marlena Pedro Mccoy LOAN SERVICING SPECIALIST-DECK MATE LAB - CHEMI STRY ORDERABLES [facility] [address] [place] [address], [facility] [phone] from Last 3 Months or Most Recently Relevant to Health Maintenance Advance Directives * Full Code (Latest Code Status on File) Date Activated Date Inactivated Comments 02/01/2022 11:03 AM 02/02/2022 11:19 AM * Full Code Date Activated Date Inactivated Comments 02/01/2022 5:47 AM 02/01/2022 11:03 AM Care Teams Rn X Ray Relationship Specialty Start Date End Date Willis Veras MD [address] [place] [address] PCP - General 05/03/21 Cole Ku MD [address] [place] [place] [address] General Surgery 11/10/20 Elizabeth Garcia MD [address] [address] Hematology and Oncology 10/21/23
--- OUTSIDE RECORDS SUMMARY | 2024-05-27 21:17 | XMS_ITS | Encounter Summary ---
Author Organization [facility] Address [address] [place] [address] Care Team Providers Care Superintendent General Name Role Phone Asher Garrison MD Primary Care Provider [phone] Cole Ku MD Unavailable Willis Veras MD Primary Care Provider Elizabeth Garcia MD Unavailable [phone] Encounter Details Date Type Department Care Team (Late Contact Info) Description 08/29/2020 [facility] Surgery [address] [place] [address] Cole Ku MD [address] [phone] Social History Tobacco Use Types [...] (Late Contact Info) Description 06/02/2024 10:30 AM LAW CLERK Office Visit [facility] - Orthopedic Surgery [address] [place] [phone] Kevin Britton MD [address] [facility] [address] [place] [address] 08/10/2024 1:00 PM CDT Office Visit [facility] - ORACLE DRM CONSULTANT [address] [facility] [address] [place] [phone] Daja Mir MD [address] [facility] [place] [address] 10/26/2024 1:00 PM CDT Office Visit [facility] - Hematology/Oncology [address] [place] [phone] Elizabeth Garcia MD [address] [facility] [address] [place] [address] 01/17/2025 12:30 PM CDT Procedure visit [facility] - GI [address] [place] [address], [place] [phone] 01/17/2025 1:00 PM CDT Office Visit [facility] - GI [address] [place] [phone] Marlena Mccoy, LOFTER-POWDER OPERATOR [address] [place] [address] [place] [address] documented as of this encounter Goals Goal Patient Goal Type Associated Problems Recent Progress Patient-Stated? Author Mobility General On track( 021 9:08 AM LAW CLERK) Tika Cunha, SABRINA Note: Expected [...] on filedocumented in this encounter Care Teams Superintendent General Relationship Specialty Start Date End Date Asher Garrison MD [address] [place] [address] PCP - General 08/25/18 05/02/21 Willis Veras MD [address] [place] [address] PCP - General 05/03/21 Cole Ku MD [address] [place] [address] General Surgery 11/10/20 Elizabeth Garcia MD [address] [address] Hematology and Oncology 10/21/23 documented as of this encounter
--- OUTSIDE RECORDS SUMMARY | 2024-05-27 21:17 | XMS_ITS | Patient Health Summary ---
Author Organization [facility] Address [address] [place] [address] Care Team Providers Care Senior Scheduler Name Role Phone Cole Ku MD Unavailable Willis Veras MD Primary Care Provider Elizabeth Garcia MD Unavailable [phone] Note from [facility],non-owned Affiliates and Associated Physician Practices is amultiple site organization consisting of ambulatory clinics and hospital sitesin [place], [place], [place] and [place]. This disclosure is being madepursuant to the Care Everywhere program and may not contain all information available regarding this patient. Last updated 18.[facility] Allergies No known active allergies Medications [...] (one) tablet by mouth once daily * Palmer-3 Fatty Acids (fish oil) 1000 MG capsule [...] AM CDT Medical Devices Implanted Type Area Lead Inspector Device Identifier Shelf Expiration Date Model / Serial / Lot Ins Tib 3-4 11mm Kn Xlpe Dsh Legion Implanted:Qty: 1 on 02/01/2022 by Kevin Britton MD at [facility] Left: Knee [employer] 06/21/2030 [id number] / / [id number] Cmpnt Fem Kn Lt 5 Crcte Rtn Legion Rondon Implanted:Qty: 1 on 02/01/2022 by Kevin Britton MD at [facility] Left: Knee [employer] 05/26/2031 [id number] / / [id number] Stem Tib 55mm 18mm Prfx Mtphsl Kn Implanted:Qty: 1 on 02/01/2022 by Kevin Britton MD at [facility] Left: Knee [employer] 01/22/2030 [id number] / / [id number] Bsplt Tib Legion 4 Kn Lt Rondon Por Implanted:Qty: 1 on 02/01/2022 by Kevin Britton MD at [facility] Left: Knee [employer] 07/04/2029 [id number] / / [id number] Screw Bsplt 25mm 6.5mm Gns2 Kn Tib Por Implanted:Qty: 1 on 02/01/2022 by Kevin Britton MD at [facility] Left: Knee [employer] 10/22/2030 [id number] / / [id number] Screw Bsplt 20mm 6.5mm Gns2 Kn Tib Por Implanted:Qty: 1 on 02/01/2022 by Kevin Britton MD at [facility] Left: Knee [employer] 09/10/2031 [id number] / / [id number] Screw 6.5mm 30mm Sphrcl Head Hip Actb Implanted:Qty: 1 on 02/01/2022 by Kevin Britton MD at [facility] Left: Knee [employer] 10/03/2031 [id number] / / [id number] Screw Bsplt 30mm 6.5mm Gns2 Kn Tib Por Implanted:Qty: 1 on 02/01/2022 by Kevin Britton MD at [facility] Left: Knee [employer] 10/22/2030 [id number] / / [id number] Liletta Intrauterine System Implanted:Qty: 1 on 10/16/2022 by Cole Garcia MD at [facility] N/A: Uterus [employer] 06/05/2025 [id number] / / Procedures * HEMOCHROMATOSIS MUTATION PANEL(Performed [...] Performed for History of colon polyps * MO COLOREC CANC SCRN,COLONOSCPY HI RISK(Performed 02/03/2024) Performed for History of colon polyps * ENDOSCOPY, COLON, SCREENING(Performed 02/03/2024) * US BREAST LEFT LTD(Performed 10/09/2023) Performed for History of breast cancer * MAMMO BILAT DIAGNOSTIC W SHAQUILLE(Performed 10/09/2023) Performed for Abnormal mammogram * MO INJ TENDON SHEATH/LIGAMENT/APONEUROSIS(Performed 08/12/2023) Performed for Plantar [...] unknown * ENDOTRACHEAL TUBE NOTE(Performed 02/27/2023) * MO DIRECTOR OF PURCHASING RQR USE ROBOTIC SURG SYS(Performed 02/27/2023) Performed for Diagnosis unknown * TYPE + SCREEN PANEL(Performed 02/19/2023) Performed for Preoperative examination * BASIC METABOLIC PANEL (CALCIUM TOTAL)(Performed 02/19/2023) Performed for Preoperative examination * CBC W AUTO DIFFERENTIAL(Performed 02/19/2023) Performed for Preoperative examination * MO LIVER ELASTOGRAPHY(Performed 01/17/2023) Performed for NAFLD (nonalcoholic fatty liver disease) * CARDIAC RHYTHM STRIP ORDER(Performed 01/10/2023) * PATHOLOGY TISSUE EXAM (STL)(Performed 01/07/2023) Performed for Diagnosis unknown * LARYNGEAL MASK AIRWAY(Performed 01/07/2023) * MO HYSTEROSCOPY,W/ENDO BX(Performed 01/07/2023) Performed for Diagnosis unknown [...] (STL)(Performed 10/16/2022) Performed for Diagnosis unknown * MO HYSTEROSCOPY,W/ENDO BX(Performed 10/16/2022) Performed for Diagnosis unknown [...] left * ENDOTRACHEAL TUBE NOTE(Performed 02/01/2022) * MO TOTAL KNEE REPLACEMENT(Performed 02/01/2022) Performed for Diagnosis [...] Performed for History of breast cancer * MO DRAIN/INJECT LARGE JOINT/BURSA(Performed 09/26/2021) Performed for Primary [...] cancer, Encounter for monitoring tamoxifen therapy * MO DRAIN/INJECT LARGE JOINT/BURSA(Performed 06/26/2021) Performed for Primary osteoarthritis of left knee * MO DRAIN/INJECT LARGE JOINT/BURSA(Performed 02/06/2021) Performed for Primary osteoarthritis of left knee * VITAMIN D 25-HYDROXY(Performed 01/15/2021) Performed for History of breast cancer * COMPREHENSIVE METABOLIC PANEL(Performed 01/15/2021) Performed for History of breast cancer * CBC W AUTO DIFFERENTIAL(Performed 01/15/2021) Performed for History of breast cancer * PATHOLOGY TISSUE(Performed 12/05/2020) Performed for Biliary colic * MO LAP,CHOLECYSTECTOMY(Performed 12/05/2020) Performed for Biliary colic * ENDOTRACHEAL TUBE NOTE(Performed 12/05/2020) * COMPREHENSIVE METABOLIC PANEL(Performed 11/27/2020) Performed for Pre-op exam * MO LIVER ELASTOGRAPHY(Performed 11/10/2020) Performed for NAFLD (nonalcoholic fatty liver disease), Elevated liver enzymes * MO DRAIN/INJECT LARGE JOINT/BURSA(Performed 11/07/2020) Performed for Primary osteoarthritis of left knee * MAMMO BILAT SCREENING(Performed 10/19/2020) Performed for History of breast cancer * PATHOLOGY TISSUE(Performed 09/18/2020) Performed for Constipation, unspecified constipation type * COLONOSCOPY SCREEN(Performed 09/18/2020) Performed for Constipation, unspecified constipation type * ENDOSCOPY, COLON, SCREENING(Performed 09/18/2020) * MO DRAIN/INJECT LARGE JOINT/BURSA(Performed 08/01/2020) Performed for Primary [...] fatty liver disease), Elevated liver enzymes * MO DRAIN/INJECT LARGE JOINT/BURSA(Performed 05/02/2020) Performed for Primary [...] deficiency, unspecified, History of breast cancer * MO DRAIN/INJECT LARGE JOINT/BURSA(Performed 02/01/2020) Performed for Primary osteoarthritis of left knee * MO DRAIN/INJECT LARGE JOINT/BURSA(Performed 11/02/2019) Performed for Primary [...] status (HCC), Vitamin D deficiency, unspecified * MO DRAIN/INJECT LARGE JOINT/BURSA(Performed 07/27/2019) Performed for Primary [...] female, unspecified estrogen receptor status (HCC) * MO DRAIN/INJECT LARGE JOINT/BURSA(Performed 03/10/2019) Performed for Primary osteoarthritis of left knee * MO DRAIN/INJECT LARGE JOINT/BURSA(Performed 12/07/2018) Performed for Primary [...] * HEMOCHROMATOSIS MUTATION PANEL (04/12/2024 9:44 AM MANUFACTURING SUPERVISOR) DNA Mutation Analysis See Below [facility] Comment: [...] clinical information reviewed by Lacie Sue, Ph.D., [facility]. DETAILED ASSAY INFORMATION: Hereditary [...] variants in the HFE gene, C282Y (NM 079616.2: c.845G>A, p.[id number]) and H63D (NM 472444.2: c.187C>G, p.Adv86Ffb), that are commonly associated with HH. These [...] Health care providers, please contact your local [facility] genetic counselor or call [phone] for assistance with the interpretation of these results. This test was developed and its analytical performance characteristics have been determined by [facility]. It has not been cleared or approved by FDA. This assay has been validated pursuant to the CLIA regulations and is used for clinical purposes. For more information, please refer to [email or web address].[email or web address]/faq/[email or web address]. (This link is being provided for informational/educational purposes only.) A portion of the testing was performed at [facility]. Reviewed and signed by Laboratory results and submitted clinical information reviewed by Lacie Sue, Ph.D., [facility], Signed on 04/22/2024 at 18:28 Test Performed at: [employer] [facility] [address] [place], [place] ??[address] PAULO HINDS MD,PHD,CARLOS Blood BLOOD SPECIMEN / Unknown 04/12/2024 9:44 AM MANUFACTURING SUPERVISOR 04/12/2024 9:44 AM MANUFACTURING SUPERVISOR Marlena Mccoy LANG INTERPRETER-HAND FILER BALANCE WHEEL LAB - CHEMI STRY ORDERABLES [facility] [address] [place] [address] * CBC WITH DIFFERENTIAL (04/12/2024 9:44 AM MANUFACTURING SUPERVISOR) Only the most recent of14 resultswithin the [...] 0.4 % [facility] Comment: Test Performed at: [employer] [facility] ??[phone] KANE WAN MD Blood BLOOD SPECIMEN / Unknown 04/12/2024 9:44 AM MANUFACTURING SUPERVISOR 04/12/2024 9:44 AM MANUFACTURING SUPERVISOR Marlena Mccoy LANG INTERPRETER-HAND FILER BALANCE WHEEL LAB - HEMAT OLOGY ORDERABLES Performing Organization Address City/State/[facility] Co de Phone Number [facility] [address] [place] [address] * (ABNORMAL) COMPREHENSIVE METABOLIC PANEL (04/12/2024 9:44 AM MANUFACTURING SUPERVISOR) Only the most recent of12 resultswithin the time period is included. Pathologist [facility] Glucose 106(H) 65 - 99 mg/dL [...] 29 U/L [facility] Comment: Test Performed at: [employer] [place], [place] ??[address] KANE WAN MD Blood BLOOD SPECIMEN / Unknown 04/12/2024 9:44 AM MANUFACTURING SUPERVISOR 04/12/2024 9:44 AM MANUFACTURING SUPERVISOR Marlena Mccoy LANG INTERPRETER-HAND FILER BALANCE WHEEL LAB - CHEMI STRY ORDERABLES [facility] [address] [place] [address] * IRON + TIBC PANEL (04/12/2024 9:44 AM MANUFACTURING SUPERVISOR) Iron 158 45 - 160 mcg/dL [facility] TIBC 373 250 - 450 mcg/dL (calc) [facility] % Saturation 42 16 - 45 % (calc) [facility] Comment: Test Performed at: [employer] [place], [place] ??[address] KANE WAN MD Blood BLOOD SPECIMEN / Unknown 04/12/2024 9:44 AM MANUFACTURING SUPERVISOR 04/12/2024 9:44 AM MANUFACTURING SUPERVISOR Marlena Mccoy LANG INTERPRETER-HAND FILER BALANCE WHEEL LAB - CHEMI STRY ORDERABLES Performing Organization Address [facility] de Phone Number [employer] [address] [place] [address] * FERRITIN (04/12/2024 9:44 AM MANUFACTURING SUPERVISOR) Only the most recent of2 resultswithin the time period is included. Pathologist [facility] Ferritin 95 16 - 232 ng/mL [facility] Comment: Test Performed at: [employer] [facility] ??[phone] KANE WAN MD Blood BLOOD SPECIMEN / Unknown 04/12/2024 9:44 AM MANUFACTURING SUPERVISOR 04/12/2024 9:44 AM MANUFACTURING SUPERVISOR Marlena Mccoy LANG INTERPRETER-HAND FILER BALANCE WHEEL LAB - CHEMI STRY ORDERABLES Performing Organization Address [facility] de Phone Number [facility] [address] [place] [address] * PATHOLOGY TISSUE (02/03/2024 8:26 AM CDT) Only the most recent of3 resultswithin the time period is included. [facility] Case Report Surgical Pathology Report ? Case: [id number] ? Authorizing Provider: ??Joseph Pathak, Collected: ? 02/03/2024 08:26 AM ? MD ? Ordering Location: ? [facility] ?Received: ?02/03/2024 09:44 AM ? Pathologist: ? Danay Velasquez MD ? Specimen: ?Large Intestine, Cecum, ileocecal valve irregular mucosa biopsies ? 02/04/2024 11:09 AM [facility] Final Diagnosis Small intestine, ileocecal valve irregular mucosa, biopsy (A): - Benign ileal mucosa with focal inflammation and reactive changes 02/04/2024 11:09 AM [facility] Microscopic Description and Comment [...] of adenoma or malignancy. 02/04/2024 11:09 AM [facility] Clinical History The patient is a 58-year-old woman who presents for high risk colon cancer surveillance (personal history of colonic polyps). Operative procedure/findings: Colonoscopy - Mild ill-defined irregular mucosa at ileocecal valve, biopsied 02/04/2024 11:09 AM [facility] Gross Description The requisition and specimen(s) are identified with the patient's name Milagros Torres . Received in formalin, specimen A , consists of 0.1 x 0.1 x < 0.1 cm dumont-pink irregular tissue fragment which is submitted in toto in a single cassette labeled A1. RB 02/04/2024 11:09 AM [facility] Pathologist Location at [facility] 02/04/2024 11:09 AM CDT [facility] Disclaimer The performance characteristics of all immunohistochemical and indirect immunofluorescence stains (if any) cited in this report were determined by the Histopathology Laboratory of [facility]. Some of these tests [...] attending (teaching) pathologist. 02/04/2024 11:09 AM CDT [facility] Embedded Images 02/04/2024 11:09 AM CDT [facility] Biopsy, NOS (Large Intestine, Cecum) 02/03/2024 8:26 AM CDT 02/03/2024 9:44 AM CDT Joseph Basilio MD LAB - PATHOL OGY/CYTOLOGY ORDERABLES [facility] [address] [phone] * Endoscopy, Colon, Screening (02/03/2024 7:25 AM CDT) Report Endoscopy POC Endoscopy Department Report _ Patient Name: Milagros Torres ?Procedure Date: 02/03/2024 7:25 AM ?Date of : 1965 Classification: Outpatient ?Gender: Female Ethnicity: Not or ? Race: White _ Providers: ?Joseph Basilio MD Referring : ? Willis Veras MD; Marlena Mccoy, ?LANG INTERPRETER; Elizabeth Garcia MD Procedure: ?Colonoscopy Indications: ?High [...] bowel ?preparation was evaluated using the BBPS ([place] ?Bowel Preparation Scale) with scores of: Right [...] Procedure Code(s): ? --- Professional --- ? 97342, Colonoscopy, flexible; with biopsy, single or multiple Diagnosis Code(s): ?--- Professional --- ?Z86.010, Personal history of colonic polyps ?K63.89, Other specified diseases of intestine ?K64.8, Other hemorrhoids ?K57.30, Diverticulosis of large intestine without ?perforation or abscess without bleeding CPT copyright 2022 [employer]. All rights reserved. The codes documented in this report are preliminary and upon founder and chief executive officer review may be revised to meet current compliance requirements. Joseph Basilio MD 02/03/2024 8:47:53 AM Note Initiated On: 02/03/2024 7:25 AM Number of Addenda: 0 ? [facility] ? [address] [place] [address] [facility] 02/03/2024 7:25 AM CDT Joseph Basilio MD GI PROCEDURE ORDERABLES [facility] * US BREAST LEFT LTD [...] ??LIMITED LEFT BREAST ULTRASOUND (COMBINED REPORT) LOCATION: [facility] EXAM DATE: ??10/09/2023 HISTORY: Follow-up to a [...] ??LIMITED LEFT BREAST ULTRASOUND (COMBINED REPORT) LOCATION: [facility] EXAM DATE: ??10/09/2023 HISTORY: Follow-up to a [...] noted. Elizabeth Garcia MD MAMMO ORDERABLES * MO INJ TENDON SHEATH/LIGAMENT/APONEUROSIS (08/12/2023 8:47 PM CDT) [...] LEFT 4VW OR MORE (06/04/2023 9:53 AM MANUFACTURING SUPERVISOR) Only the most recent of5 resultswithin the time period is included. Anatomical Region Laterality Modality Lower Extremity Radiographic Alena ging 06/04/2023 10:2 0 AM MANUFACTURING SUPERVISOR Narrative 06/04/2023 10:21 AM MANUFACTURING SUPERVISOR Procedure: XR KNEE LEFT 4VW OR MORE ??Exam Date: ??06/04/2023 9:53 AM ?? Location: ??[facility] Indication: Z96.652: Presence of left artificial knee [...] MORE Exam Date: 06/04/2023 9:53 AM Location: [facility] Indication: Z96.652: Presence of left artificial knee [...] LEFT DIAGNOSTIC W SHAQUILLE (04/22/2023 1:27 PM MANUFACTURING SUPERVISOR) Only the most recent of2 resultswithin the time period is included. Anatomical Region Laterality Modality Breast Left Mammography 04/22/2023 2:38 PM MANUFACTURING SUPERVISOR Impressions 04/22/2023 3:07 PM MANUFACTURING SUPERVISOR : Overall stable grouped microcalcifications associated with [...] 04/22/2023 3:07 PM Narrative 04/22/2023 3:07 PM MANUFACTURING SUPERVISOR EXAMINATION: DIGITAL MAMMO LEFT DIAGNOSTIC W SHAQUILLE WITH TOMOSYNTHESIS AND WITH CAD LOCATION: [facility] EXAM DATE: ??04/22/2023 HISTORY: 57-year-old female presents [...] Case Report Surgical Pathology Report ? Case: [id number] ? Authorizing Provider: ??Chay Major MD ?Collected: ? 02/27/2023 12:44 PM ? Ordering Location: ? [facility] ? Received: ?02/27/2023 12:48 PM ? Pathologist: ? Maxine Talbert MD ? Specimen: ?Uterus w Tube and Ovary, uterus, cervix, bilateral tubes and ovaries ? 03/03/2023 2:47 PM CDT [facility] Final Diagnosis Uterus, hysterectomy (including FSA1) - Benign predominantly basalis endometrium with focal areas of stromal decidualization/hormo ne effect - Adenomyosis - Leiomyomata - Cervical parakeratosis Ovaries and Fallopian tubes, bilateral, salpingo-oophorectomy - No histopathologic abnormality 03/03/2023 2:47 PM CDT [facility] Clinical History The patient is a 57-year-old woman with history complex atypical hyperplasia. Operative procedure: hysterectomy, bilateral salpingo-oophorectomy . 03/03/2023 2:47 PM [facility] Frozen Section The frozen section diagnosis is as rendered below. FSA1: Uterus, hysterectomy - Irregular endometrium; no carcinoma on section frozen The specimen was received at 1247 on 02/27/23 and was reported to Dr. Major at [address] Talbert. 03/03/2023 2:47 PM [facility] Gross Description The requisition and [...] yellow-dumont cut surface with multiple corpora albicantia. Electronic Equipment Repairer sections are submitted as follows: A1: FSA1 [...] Left ovary IY 03/03/2023 2:47 PM CDT [facility] Microscopic Description Microscopic examination substantiates the above diagnosis. Permanent sections confirm the frozen section diagnosis. 03/03/2023 2:47 PM CDT [facility] Pathologist Location at [facility] 03/03/2023 2:47 PM CDT [facility] Disclaimer All histochemical and/or immunohistochemical results are interpreted with controls that demonstrate appropriate staining reactions before reporting results. Note on use of immunocytochemistry reagents: This test was developed and its performance characteristic determined by [facility], Department of Laboratory Medicine. It has [...] interpreted with caution. 03/03/2023 2:47 PM CDT [facility] Embedded Images 03/03/2023 2:47 PM CDT [facility] Pathology/Cytolo gy HYSTERECTOMY AND BILATERAL SALPINGO-OOPHORECTOM Y SPECIMEN / Unknown 02/27/2023 12:44 PM CDT 02/27/2023 12:48 PM CDT Comment:Pre-op diagnosis: Diagnosis unknown [R69] Chay Major MD LAB - PATHOLOGY/CYTO LOGY ORDERABLES [facility] [address] [place] [address] * ETT LINE PERFORMABLE (02/27/2023 12:16 PM CDT) Narrative Greer Mccain MD - 02/27/2023 12:16 PM CDT Greer Mccain MD ? 02/27/2023 12:16 PM Endotracheal Tube Placement: ? Intubation Event Date/Time: ??02/27/2023 11:25 AM Procedure: intubation ([id number]). Procedure Section: ?? Sedation: under general anesthesia. [...] Rh O POS 02/19/2023 11:03 AM CDT [facility] Comment:History checked. Antibody Screen NEG 11:03 AM CDT [facility] Blood Bank BLOOD SPECIMEN / Unknown Venipuncture / Unknown 02/19/2023 10:08 AM CDT 02/19/2023 10:21 AM CDT Chay Major MD LAB - BLOOD BANK ORD ERABLES [facility] [address] [place], [place] [address] [phone] * (ABNORMAL) BASIC METABOLIC PANEL (CALCIUM TOTAL) (02/19/2023 10:08 AM CDT) Only the most recent of3 resultswithin the time period is included. Glucose 92 70 - 105 mg/dL 02/19/2023 10:43 AM CDT [facility] Sodium 142 136 - 145 mmol/L 02/19/2023 10:43 AM CDT [facility] Potassium 4.0 3.5 - 5.1 mmol/L 02/19/2023 10:43 AM CDT [facility] Chloride 108(H) 98 - 107 mmol/L 02/19/2023 10:43 AM CDT [facility] CO2 24 22 - 29 mmol/L 02/19/2023 10:43 AM CDT [facility] Calcium 10.0 8.4 - 10.4 mg/dL 02/19/2023 10:43 AM CDT [facility] Anion Gap 10 6 - 16 mmol/L 02/19/2023 10:43 AM CDT [facility] BUN 12 7 - 26 mg/dL 02/19/2023 10:43 AM CDT [facility] Creatinine 1.01 0.57 - 1.11 mg/dL 02/19/2023 10:43 AM CDT [facility] eGFR by CKD-EPI 65(L) >=90 mL/min/1.7 3 m2 02/19/2023 10:43 AM CDT [facility] Blood BLOOD SPECIMEN / Unknown Venipuncture / Unknown 02/19/2023 10:08 AM CDT 02/19/2023 10:21 AM CDT Tyler Correa MD LAB - CHEMISTRY OR DERABLES Performing Organization Address City/State/[facility] Co de Phone Number [facility] [address] [place] [address] * [place] LIVER ELASTOGRAPHY (01/17/2023 9:30 AM CDT) Narrative [...] patients with nonalcoholic fatty liver disease. Gastroenterology 2019;156:9080-4477. Iris MS, Abilio R, Van Natta ML, [...] at-risk nonalcoholic steatohepatitis (LAMBERT) in a [place] cohort and comparison to other non-invasive algorithms. PLoS ONE (2021) 17: [id number]. Masha DALAL, Curtis J, Zuri RENE, et al. Enhanced diagnosis of advanced fibrosis and cirrhosis in individuals with NAFLD using FibroScan-based Agile scores. J Hepatol (2022) 78: 247-259. Fibroscan LSM can also be used with laboratory parameters without formulas to assess prognosis. According to the Baveno-VII criteria (El, 2021), Fibroscan LSM ?15 kPa plus a platelet count of ?904x128/L rules out clinically significant portal hypertension (sensitivity [...] FIB-4 score (Darrel et al. Hepatology Communications 2019;3:7264-8477) or NAFLD Fibrosis score (Pitts et al. Clinical Gastroenterology and Hepatology 2019;17:6258-5312 using ??routine clinical data. Note: 1. Fibroscan [...] additional interpretive data was last updated 09/07/22.) [email or web address] Marlena Mccoy APRN-HAND FILER BALANCE WHEEL PROCEDURE/M INOR SURGICAL ORDERABLES * LARYNGEAL MASK AIRWAY (01/07/2023 7:46 AM CDT) Narrative John Mendoza APRN-TANK STAVE ASSEMBLER - 01/07/2023 7:46 AM CDT John Mendoza APRN-TANK STAVE ASSEMBLER ? 01/07/2023 ??7:47 AM LMA Placement Procedure/LDA Note: Patient Location: OR. LMA Insertion Date/Time: ??01/07/2023 7:36 AM Procedure: LMA. Pretreatment: 100% O2 Induction: standard IV Patient position: supine. Mask Ventilation: easy Type: ??LMA Size: ??4 Number of Attempts: 1. Placement verified by: CO2 monitor Dentition unchanged? ??Yes Procedure Start Time: 01/07/2023 7:36 AM. Staff Section ? Anesthesia Provider: John Mendzoa APRN-CRNA, Performed the procedure ? Provider #1: Sweetie Nugent DO. Sweetie Nugent DO GENERAL ANESTHESIA ORDERABLES * CBC W DIFF (EXTERNAL RESULT ENTRY) (12/30/2022) WBC (EXTERNAL RESULT) 4.9 10^3/ul [facility] Hemoglobin (EXTERNAL RESULT) 12.5 g/dl [facility] Hematocrit (EXTERNAL RESULT) 38.2 % [facility] Platelets (EXTERNAL RESULT) 164 10^3/ul [facility] Neutrophil Absolute (EXTERNAL RESULT) 2.3 10^3/ul [facility] Blood BLOOD SPECIMEN / Unknown 12/30/2022 Historical Provider LAB - HEMATOLOGY ORDERABLES [facility] [address] [place] [address], [place] [phone] * (ABNORMAL) COMP MET PANEL (EXTERNAL RESULT ENTRY) (12/30/2022) Glucose (EXTERNAL) 90 mg/dL [facility] Sodium (EXTERNAL RESULT) 143 mmol/L [facility] Potassium (EXTERNAL RESULT) 4.4 mmol/L [facility] Chloride (EXTERNAL RESULT) 107(A) mmol/L [facility] CO2 (EXTERNAL) 22 mmol/L [facility] [facility] Calcium (EXTERNAL RESULT) 9.7 mg/dL [facility] Anion Gap (EXTERNAL RESULT) [facility] BUN (EXTERNAL RESULT) 17 mg/dL [facility] Creatinine (EXTERNAL RESULT) 1.02(A) mg/dl [facility] Alkaline Phosphatase (EXTERNAL RESULT) 88 U/L [facility] ALT (EXTERNAL RESULT) 34 U/L [facility] AST (EXTERNAL RESULT) 39 U/L [facility] Protein Total (EXTERNAL RESULT) 7.5 gm/dL [facility] Albumin (EXTERNAL RESULT) 4.3 gm/dL [facility] Bilirubin Total (EXTERNAL RESULT) 0.3 mg/dL [facility] eGFR MDRD (EXTERNAL RESULT) 64 mL/min/1.7 3m2 [facility] eGFR (EXTERNAL) [facility] Blood BLOOD SPECIMEN / Unknown 12/30/2022 Historical Provider LAB - CHEMISTRY O MARIA A [facility] [address] [place] [address], [facility] [phone] * (ABNORMAL) LIPID PROFILE (EXTERAL RESULT ENTRY) (12/30/2022) Cholesterol (EXTERNAL RESULT) 216(A) mg/dL [facility] Triglycerides (EXTERNAL RESULT) 155(A) mg/dL [facility] HDL (EXTERNAL RESULT) 45 mg/dL [facility] LDL (EXTERNAL RESULT) 143(A) mg/dL [facility] VLDL (EXTERNAL RESULT) 28 mg/dL [facility] Chol HDL Ratio (External Result) [facility] Blood BLOOD SPECIMEN / Unknown 12/30/2022 Historical Provider LAB - CHEMISTRY O VITALIYBLES Performing Organization Address [facility]/ZIP Co de Phone Number [facility] [address] [place] [address], [facility] [phone] * TSH (EXTERNAL RESULT ENTRY) (12/30/2022) TSH (EXTERNAL RESULT) 4.160 uIU/mL [facility] Blood BLOOD SPECIMEN / Unknown 12/30/2022 Historical Provider LAB - CHEMISTRY O MARIA A Performing Organization Address [facility]/ZIP Co de Phone Number [facility] [address] [place] [address], [facility] [phone] * VITAMIN D 25-HYDROXY (10/21/2022 12:03 PM CDT) Only the most recent of7 resultswithin the time period is included. Vitamin D, 25 Hydroxy 44.0 30.0 - 80.0 ng/mL 10/21/2022 12:52 PM CDT [facility] Comment: The recommendations for 25-Hydroxy Vitamin [...] Byers MD LAB - CHEMISTRY LD SALDAÑA [facility] Organization Address City/State/ZIP Co de Phone Number [facility] [address] [place] [address], [facility] [phone] * MAMMO BILAT SCREENING W [place]IL[place] (10/21/2022 [...] SCREENING W [place] AND WITH CAD LOCATION: [facility] EXAM DATE: ??10/21/2022 HISTORY: ??Screening. Personal history [...] O POS 10/16/2022 7:0 3 AM CDT [facility] Blood Bank BLOOD SPECIMEN / Unknown Venipuncture / Unknown 10/16/2022 6:28 AM CDT 10/16/2022 6:32 AM CDT Kevin Walters DO LAB - BLOOD BANK ORD ERABLES [facility] [address] [phone] * GROSS EXAM PATHOLOGY (STL) (08/22/2022 1:36 PM CDT) Case Report Surgical Pathology Report ? Case: [id number] ? Authorizing Provider: ??Cole Garcia MD ?Collected: ? 08/22/2022 01:36 PM ? Ordering Location: ? [facility] ?Received: ?08/22/2022 01:38 PM ? Pathologist: ? Maxine Talbert MD ? Specimen: ?Slide Consultation, Received 1 slide labelled [id number] from [employer] ? for consult per Dr. Garcia's request. ? 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 08/22/2022 2:20 PM CDT [facility] Microscopic Description Received for review is one slide labeled [id number], accompanied by the corresponding outside pathology report. [...] - PATHOLOGY/CYTO LOGY ORDERABLES Performing Organization Address [facility] Co de Phone Number [facility] [address] [place], [place] [phone] * IMAGING RADIOLOGY XRAY RESULTS ORDER (02/04/2022 5:45 PM CDT) Anatomical Region Laterality Modality Other Narrative 02/04/2022 5:45 PM CDT Ordered by an unspecified provider. Scanned Document IMAGING * (ABNORMAL) HGB HCT PANEL (02/02/2022 1:58 AM CDT) Hemoglobin 9.1(L) 12.0 - 15.6 gm/dL 02/02/2022 3:26 AM CDT [facility] Hematocrit 27.7(L) 35.9 - 45.5 % 02/02/2022 3:26 AM CDT [facility] Blood BLOOD SPECIMEN / Unknown Lab Venipuncture / Unknown 02/02/2022 1:58 AM CDT 02/02/2022 3:14 AM CDT Kevin Britton MD LAB - HEMATOLOGY OR DERABLES Performing Organization Address [facility] de Phone Number [facility] [address] [place] [phone] * ETT LINE PERFORMABLE (02/01/2022 7:30 AM CDT) Narrative Darryl Dunbar APRN-TANK STAVE ASSEMBLER - 02/01/2022 7:30 AM CDT Darryl Dunbar APRN-CRNA ? 02/01/2022 ??7:42 AM Endotracheal Tube Placement: ? Patient Location: OR. Intubation Event Date/Time: ??02/01/2022 7:30 AM Procedure: intubation (86707). Procedure Section: ?? Sedation: IV sedation. Indications [...] Staff Section ? Anesthesia Provider: Darryl Dunbar, LANG INTERPRETER-TANK STAVE ASSEMBLER, Performed the procedure ? Provider #1: Arielle [...] Culture to follow 01/22/2022 11:01 AM CDT [facility] RBC UA 0-2 0 - 5 # /hpf 01/22/2022 11:01 AM CDT [facility] WBC UA 0-5 0 - 5 # /hpf 01/22/2022 11:01 AM CDT [facility] Bacteria UA Trace(A) None Seen 01/22/2022 11:01 AM CDT [facility] Squamous Epithelial Cells 3-5 0 - 5 /hpf 01/22/2022 11:01 AM CDT [facility] Mucus UA 4+ /LPF 01/22/2022 11:01 AM CDT [facility] Hyaline Casts 0-2 0 - 2 /LPF 01/22/2022 11:01 AM CDT [facility] Urine URINE SPECIMEN OBTAINED BY CLEAN CATCH PROCEDURE / Unknown Collection / Unknown 01/22/2022 10:15 AM CDT 01/22/2022 10:31 AM CDT Narrative [facility] - 01/22/2022 11:01 AM CDT Kevin Britton MD LAB - URINALYSIS OR DERABLES [facility] [address] [place] [address] * CULTURE MSSA/MRSA (01/22/2022 10:15 AM CDT) Culture Negative for Staphylococcus aureus (MRSA/MSSA) 01/24/2022 10:24 AM CDT [facility] MICROBIOLOGY Microbiology SPECIMEN FROM NASAL FOSSAE / Unknown Collection / Unknown 01/22/2022 10:15 AM CDT 01/22/2022 10:31 AM CDT Kevin Britton MD LAB - MICROBIOLOGY ORDERABLES Performing Organization Address City/[facility]/ZIP Co de Phone Number [facility] MICROBIOLOGY [address] [phone] * (ABNORMAL) URINALYSIS REFLEX MICROSCOPIC REFLEX CULTURE (01/22/2022 10:15 AM CDT) Color UA Yellow Straw, Yellow 01/22/2022 10:44 AM CDT [facility] Clarity UA Slt Cloudy(A) Clear 01/22/2022 10:44 AM CDT [facility] Glucose UA Negative Negative 01/22/2022 10:44 AM CDT [facility] Bilirubin UA Negative Negative 01/22/2022 10:44 AM CDT [facility] Ketone UA Negative Negative 01/22/2022 10:44 AM CDT [facility] Specific [place] UA 1.019 1.005 - 1.030 01/22/2022 10:44 AM CDT [facility] Blood UA 1+(A) Negative 01/22/2022 10:44 AM CDT [facility] pH UA 5.0 5.0 - 8.0 pH 01/22/2022 10:44 AM CDT [facility] Protein UA Negative Negative 01/22/2022 10:44 AM CDT [facility] Urobilinogen UA Negative Negative mg/dL 01/22/2022 10:44 AM CDT [facility] Nitrite UA Negative Negative 01/22/2022 10:44 AM CDT [facility] Leukocyte UA Trace(A) Negative 01/22/2022 10:44 AM CDT [facility] Urine Microscopy Urine microscopy to follow 01/22/2022 10:44 AM CDT [facility] Reflex Status Culture to follow 01/22/2022 10:44 AM CDT [facility] Urine URINE SPECIMEN OBTAINED BY CLEAN CATCH PROCEDURE / Unknown Collection / Unknown 01/22/2022 10:15 AM CDT 01/22/2022 10:31 AM CDT Narrative [facility] - 01/22/2022 10:44 AM CDT Kevin Britton MD LAB - URINALYSIS OR DERABLES Performing Organization Address City/[facility]/ZIP Co de Phone Number [facility] [address] [place], [place] [phone] * TRANSFERRIN (01/22/2022 10:15 AM CDT) Only the most recent of2 resultswithin the time period is included. Transferrin 305 180 - 382 mg/dL 01/22/2022 11:01 AM CDT [facility] Blood BLOOD SPECIMEN / Unknown Venipuncture / Unknown 01/22/2022 10:15 AM CDT 01/22/2022 10:31 AM CDT Kevin Britton MD LAB - CHEMISTRY ORD ERABLES Performing Organization Address City/[facility] Co de Phone Number [facility] [address] [place] [phone] * HEMOGLOBIN A1C (01/22/2022 10:15 AM CDT) Hemoglobin A1c 5.1 <5.7 % 01/22/2022 11:05 AM CDT [facility] Estimated Average Glucose 100 mg/dL 01/22/2022 11:05 AM CDT [facility] Blood BLOOD SPECIMEN / Unknown Venipuncture / Unknown 01/22/2022 10:15 AM CDT 01/22/2022 10:31 AM CDT Narrative [facility] - 01/22/2022 11:05 AM CDT HbA1c [...] exceeds 5% in the specimen. The Green Schedule Checker assay for the measurement of HbA1c is a National Glycohemoglobin Standardization Program (NGSP) certified method. Kevin Britton MD LAB - CHEMISTRY ORD ERABLES [facility] [address] [place] [address] * FRUCTOSAMINE (01/22/2022 10:15 AM CDT) [facility] Fructosamine 216 0 - 285 umol/L 01/23/2022 8:15 AM CDT [facility] ([facility]) Comment: Published reference interval for apparently healthy subjects between age 20 and 60 is 205 - 285 umol/L and in a poorly controlled diabetic population is 228 - 563 umol/L with a mean of 396 umol/L. Blood BLOOD SPECIMEN / Unknown Venipuncture / Unknown 01/22/2022 10:15 AM CDT 01/22/2022 10:[address] [facility] ([facility]) - 01/23/2022 8:15 AM CDT Performed at: ??[address], [place], [place] ??[id number] Personnel Consultant: Cecilio Phillips PhD, Phone: ??[phone] Kevin Britton MD LAB - CHEMISTRY ORD ERABLES [facility] ([facility]) [address] [place] [address] * CULTURE URINE (01/22/2022 10:15 AM CDT) Culture Urine 10,000-50,000 CFU/mL urogenital dary KIRAN 01/24/2022 12:28 AM CDT [facility] MICRO[facility]OLOGY Urine URINE SPECIMEN OBTAINED BY CLEAN CATCH PROCEDURE / Unknown Collection / Unknown 01/22/2022 10:15 AM CDT 01/22/2022 10:31 AM CDT Kevin Britton MD LAB - MICROBIOLOGY ORDERABLES [facility] MICROBIOLOGY [address] [place], [address] [phone] * US ABDOMEN LIMITED (01/18/2022 9:42 AM CDT) Anatomical Region Laterality Modality Abdomen Ultrasound 01/18/2022 9:43 AM CDT Impressions 01/18/2022 9:55 AM CDT IMPRESSION: 1.Diffuse hepatic steatosis without discrete hepatic lesion or intrahepatic biliary dilatation. 2.Status post cholecystectomy. > Dictated by Thomas Cleary MD (vice president of development). I, Basim Holbrook MD have personally reviewed and interpreted this examination/study. > Interpreting Provider: Basim Holbrook MD on 01/18/2022 9:55 AM Narrative 01/18/2022 9:55 AM CDT PROCEDURE: ??US ABDOMEN LIMITED, DATE/TIME OF EXAM: ??01/18/2022 9:43 AM PROCEDURE: ??US ABDOMEN LIMITED, DATE/TIME OF EXAM: ??01/18/2022 9:43 AM, LOCATION ??[facility] INDICATION: K76.0: NAFLD (nonalcoholic fatty liver [...] DATE/TIME OF EXAM: 01/18/2022 9:43 AM, LOCATION [facility] INDICATION: K76.0: NAFLD (nonalcoholic fatty liver [...] dilatation. 2.Status post cholecystectomy. > Dictated by Thoams Cleary MD (vice president of development). I, Basim Holbrook MD have personally reviewed and interpreted this examination/study. > Interpreting Provider: Basim Holbrook MD on 29:55 AM Marlena Mccoy LANG INTERPRETER-HAND FILER BALANCE WHEEL US ORDERABL ES * MO DRAIN/INJECT LARGE JOINT/BURSA (09/26/2021 12:05 PM CDT) [...] Total 194 <200 mg/dL 08/06/2021 11:[address] [facility] HDL 45 >40 mg/dL 08/06/2021 11:[address] [facility] Comment: ATP III Classification of HDL Cholesterol: ? <40 mg/dL: ??Considered a major risk factor. ? >60 mg/dL: ??Considered a negative risk factor. ? LDL Calculated 116(H) <100 mg/dL 08/06/2021 11:[address] [facility] Comment: ATP III Classification of LDL Cholesterol: ?<100 mg/dL: ??Optimal ? 100 - 129 mg/dL: ??Near Optimal/Above Optimal ? 130 - 159 mg/dL: ??Borderline High ? 160 - 189 mg/dL: ??High ?>190 mg/dL: ??Very High ? Triglycerides 166(H) <150 mg/dL 08/06/2021 11:28 AM CDT [facility] Comment: ATP III Classification of Triglycerides: ?<150 mg/dL: ??Normal ? 150 - 199 mg/dL: ??Borderline High ? 200 - 400 mg/dL: ??High ?>500 mg/dL: ??Very High Blood BLOOD SPECIMEN / Unknown Lab Venipuncture / Unknown 08/06/2021 10:49 AM CDT 08/06/2021 10:56 AM CDT Araseli Byers MD [facility] Organization Address City/State/ZIP Co de Phone Number [facility] [address] [place] [address], [facility] [phone] * MO DRAIN/INJECT LARGE JOINT/BURSA (06/26/2021 12:52 PM MANUFACTURING SUPERVISOR) Narrative Kendall Reid MD - 06/26/2021 12:52 PM MANUFACTURING SUPERVISOR Kendall Reid MD ? 06/26/2021 12:53 PM [...] Kendall Reid MD PROCEDURE/MINOR SURG ICAL ORDERABLES * MO DRAIN/INJECT LARGE JOINT/BURSA (02/06/2021 10:20 [...] Event Date/Time: ??12/05/2020 7:46 AM Procedure: intubation (46439). Procedure Section: ?? Sedation: under general anesthesia. [...] Staff Section ?? Anesthesia Provider: Rubin Sexton APRN-TANK STAVE ASSEMBLER, Performed the procedure Additional Comments: DVOI x ! Per emergency medicine resident. Tyler Cat MD GENERAL ANESTHESIA ORDERABLES * MO LIVER ELASTOGRAPHY (11/10/2020 8:36 AM CDT) Narrative [...] patients with nonalcoholic fatty liver disease. Gastroenterology 2019;156:0907-8289. Iris MS, Abilio R, Van Anatoliy ML, [...] FIB4 score (Darrel et al. Hep[employer] 2019;3:0849-1875) or NAFLD Fibrosis score (Pitts et al. Clinical Gastroenterology and Hepatology 2019;17:1915-5425. from routine clinical data. 3. Liver stiffness [...] change as additional supporting data becomes available. [email or web address] Marlena Mccoy LANG INTERPRETER-HAND FILER BALANCE WHEEL PROCEDURE/M INOR SURGICAL ORDERABLES * MO DRAIN/INJECT LARGE JOINT/BURSA (11/07/2020 10:06 AM CDT) [...] Basilio MD Referring : ? Marlena Mccoy, LANG INTERPRETER-HAND FILER BALANCE WHEEL; Asher Garrison, ?; Erma Neri MD Procedure: [...] and oxygen saturations were ?monitored continuously. The -DO655A was ?introduced through the anus and advanced to the ?terminal ileum. The colonoscopy was performed ?without difficulty. The patient tolerated the ?procedure well. The quality of the bowel ?preparation was evaluated using the BBPS ([place] ?Bowel Preparation Scale) with scores of: Right [...] Procedure Code(s): ? --- Professional --- ? 38826, Colonoscopy, flexible; with removal of tumor(s), polyp(s), or ? other lesion(s) by snare technique ? 54972, 59, Colonoscopy, flexible; with biopsy, single or multiple Diagnosis Code(s): ?--- Professional --- ?Z12.11, Encounter for screening for malignant ?neoplasm of colon ?K64.8, Other hemorrhoids ?K63.5, Polyp of colon ?K57.30, Diverticulosis of large intestine without ?perforation or abscess without bleeding CPT copyright 2019 [employer]. All rights reserved. The codes documented in this report are preliminary and upon founder and chief executive officer review may be revised to meet current compliance requirements. Joseph Basilio MD 09/18/2020 12:42:42 PM Note Initiated On: 09/18/2020 11:49 AM Number of Addenda: 0 ? [facility] ? [address] [place] [address] [facility] 09/18/2020 11:4 9 AM CDT Joseph Basilio MD GI PROCEDURE ORDERABLES [facility] * MO DRAIN/INJECT LARGE JOINT/BURSA (08/01/2020 10:34 AM CDT) [...] MD PROCEDURE/MINOR ALCON GICAL ORDERABLES * PT-INR [facility] (05/12/2020 10:28 AM MANUFACTURING SUPERVISOR) PT 12.6 12.1 - 14.8 Seconds 05/12/2020 10:52 AM MANUFACTURING SUPERVISOR [facility] INR 1.0 See Comment 05/12/2020 10:52 AM [facility] Comment:The suggested therap eutic range for standard coumadin (warfarin) therapy is an INR of 2.0-3.0. For high-risk patients (Mechanical Mitral Valve Prosthesis, etc.), the suggested prophylactic therapeutic range is an INR of 2.5-3.5. Blood BLOOD SPECIMEN / Unknown Lab Venipuncture / Unknown 05/12/2020 10:28 AM MANUFACTURING SUPERVISOR 05/12/2020 10:43 AM [facility] Marlena Mccoy LANG INTERPRETER-HAND FILER BALANCE WHEEL LAB - COAGU LATION ORDERABLES [facility] [address] [place] [address], [facility] [phone] * ÁLVARO BLOOD SCREEN W/REFLEX TITER (05/12/2020 10:28 AM MANUFACTURING SUPERVISOR) ÁLVARO IgG None Detected None Detected 05/14/2020 5:14 AM [facility] ([facility]) Comment: If suspicion of connective tissue disease is strong and ÁLVARO EIA is negative, consider testing for ÁLVARO by IFA ([id number]). INTERPRETIVE INFORMATION: Anti-Nuclear Antibodies (ÁLVARO), IgG by SAJAN Antinuclear Antibodies (ÁLVARO), IgG by SAJAN: ÁLVARO specimens are screened using enzyme-linked immunosorbent assay (SAJAN) methodology. All SAJAN results reported as Detected are further tested by indirect fluorescent assay (IFA) using HEp-2 substrate with an IgG-specific conjugate. The ÁLVARO SAJAN screen is designed to detect antibodies against dsDNA, histones, SS-A (Ro), SS-B (La), Ríos, Ríos/[employer] FACULTY MEMBER, Scl-70, Remedios-1, centromeric proteins, other antigens extracted from the HEp-2 cell nucleus. ÁLVARO SAJAN assays have been reported to have lower sensitivities than ÁLVARO IFA for systemic autoimmune rheumatic diseases (SARD). Negative results do not necessarily rule out SARD. Performed By: [facility] [address] [place] [address] Cake Puncher: Milagros Sumner MD Blood BLOOD SPECIMEN / Unknown Lab Venipuncture / Unknown 05/12/2020 10:28 AM MANUFACTURING SUPERVISOR 05/12/2020 11:02 AM MANUFACTURING SUPERVISOR Marlena Mccoy APRN-HAND FILER BALANCE WHEEL LAB - CHEMI STRY ORDERABLES [facility]) [address] [place] [address], [facility] * IRON BLOOD (05/12/2020 10:28 AM MANUFACTURING SUPERVISOR) Iron 126 40 - 150 mcg/dL 05/12/2020 11:32 AM MANUFACTURING SUPERVISOR [facility] Blood BLOOD SPECIMEN / Unknown Lab Venipuncture / Unknown 05/12/2020 10:28 AM MANUFACTURING SUPERVISOR 05/12/2020 11:02 AM MANUFACTURING SUPERVISOR Marlena Mccoy APRN-HAND FILER BALANCE WHEEL LAB - CHEMI STRY ORDERABLES Performing Organization Address City/[facility]/ZIP Co de Phone Number [address] [address], [facility] [phone] * HEPATITIS B CORE ANTIBODY (05/12/2020 10:28 AM MANUFACTURING SUPERVISOR) HBc Antibody Total Non-reacti ve Non-reacti ve 05/12/2020 11:54 AM MANUFACTURING SUPERVISOR [facility] Blood BLOOD SPECIMEN / Unknown Lab Venipuncture / Unknown 05/12/2020 10:28 AM MANUFACTURING SUPERVISOR 05/12/2020 11:02 AM MANUFACTURING SUPERVISOR Marlena Mccoy APRN-HAND FILER BALANCE WHEEL LAB - CHEMI STRY ORDERABLES Performing Organization Address City/[facility]/ZIP Co de Phone Number [address] [address], [facility] [phone] * GGT (05/12/2020 10:28 AM MANUFACTURING SUPERVISOR) GGT 54 9 - 64 Units/L 05/12/2020 11:05 AM MANUFACTURING SUPERVISOR [facility] Blood BLOOD SPECIMEN / Unknown Lab Venipuncture / Unknown 05/12/2020 10:28 AM MANUFACTURING SUPERVISOR 05/12/2020 10:37 AM MANUFACTURING SUPERVISOR Marlena Mccoy APRN-HAND FILER BALANCE WHEEL LAB - CHEMI STRY ORDERABLES [address] [address], [facility] [phone] * IGG BLOOD (05/12/2020 10:28 AM MANUFACTURING SUPERVISOR) Pathologist [facility] IgG 1,474 540-1,822 mg/dL 05/12/2020 11:32 AM MANUFACTURING SUPERVISOR [facility] Blood BLOOD SPECIMEN / Unknown Lab Venipuncture / Unknown 05/12/2020 10:28 AM MANUFACTURING SUPERVISOR 05/12/2020 11:02 AM MANUFACTURING SUPERVISOR Marlenajamey Mccoy LANG INTERPRETER-HAND FILER BALANCE WHEEL LAB - CHEMI STRY ORDERABLES Performing Organization Address [facility] Co de Phone Number [address] [address], [facility] [phone] * HEPATITIS C ANTIBODY (05/12/2020 10:28 AM MANUFACTURING SUPERVISOR) [facility] Hepatitis C Antibody Non-react pura Non-reac tive 05/12/2020 11:54 AM MANUFACTURING SUPERVISOR [facility] Comment:Hepatitis C Antibody screen indicates no serologic evidence of past or current infection with Hepatitis C Virus. Patients with unexplained liver disease who are immunocompromised or suspected of having acute Hepatitis C infection may benefit from Nucleic Acid Test (KRISTIAN) for Hepatitis C Viral RNA to confirm Hepatitis C status. Blood BLOOD SPECIMEN / Unknown Lab Venipuncture / Unknown 05/12/2020 10:28 AM MANUFACTURING SUPERVISOR 05/12/2020 11:02 AM MANUFACTURING SUPERVISOR Marlena Mccoy APRN-HAND FILER BALANCE WHEEL LAB - CHEMI STRY ORDERABLES Performing Organization Address City/[facility]/ZIP Co de Phone Number [address] [address], [facility] [phone] * MO DRAIN/INJECT LARGE JOINT/BURSA (05/02/2020 11:04 AM MANUFACTURING SUPERVISOR) Narrative Kevin Britton MD - 05/02/2020 11:04 AM MANUFACTURING SUPERVISOR Kevin Britton MD ? 05/02/2020 11:04 AM [...] * US ABDOMEN COMPLETE (03/24/2020 3:17 PM MANUFACTURING SUPERVISOR) Anatomical Region Laterality Modality Abdomen Ultrasound 03/24/2020 3:14 PM MANUFACTURING SUPERVISOR Impressions 03/24/2020 3:43 PM MANUFACTURING SUPERVISOR IMPRESSION: 1. Diffuse hepatic steatosis without discrete [...] 3:43 PM . Narrative 03/24/2020 3:43 PM MANUFACTURING SUPERVISOR EXAMINATION: Complete abdominal sonogram HISTORY: 54-year-old female [...] . Erma Neri MD US ORDERABLES * MO DRAIN/INJECT LARGE JOINT/BURSA (02/01/2020 11:12 AM CDT) [...] Britton MD PROCEDURE/MINOR ALCON GICAL ORDERABLES * MO DRAIN/INJECT LARGE JOINT/BURSA (11/02/2019 11:32 AM CDT) [...] Dictated by Car Bañuelos MD (vice president of development). I, Dr. HILARIA IRVING M.D. have personally [...] - 4.940 uIU/mL 09/13/2019 3:41 PM CDT [facility] Blood BLOOD SPECIMEN / Unknown Lab Venipuncture / Unknown 09/13/2019 2:12 PM CDT 09/13/2019 3:03 PM CDT Erma Neri MD LAB - CHEMISTRY LD [place] [address] [phone] * T4 FREE (09/13/2019 2:12 PM CDT) T4 Free 0.7 0.7 - 1.5 ng/dL 09/13/2019 3:41 PM CDT [facility] Blood BLOOD SPECIMEN / Unknown Lab Venipuncture / Unknown 09/13/2019 2:12 PM CDT 09/13/2019 3:03 PM CDT Erma Neri MD LAB - CHEMISTRY LD SALDAÑA Performing Organization Address City/[facility]/ZIP Co de Phone Number [address] [phone] * [place] DRAIN/INJECT LARGE JOINT/BURSA (07/27/2019 12:14 PM CDT) [...] (ABNORMAL) HEPATIC FUNCTION PANEL (03/15/2019 1:31 PM MANUFACTURING SUPERVISOR) Only the most recent of2 resultswithin the time period is included. Protein Total 7.7 6.0 - 8.3 g/dL 019 1:59 PM [facility] Albumin 3.9 3.4 - 5.0 g/dL 03/15/2019 1:59 PM [facility] Bilirubin Total 0.3 0.2 - 1.2 mg/dL 03/05 1:59 PM [facility] Bilirubin Conjugated 0.1 0.0 - 0.5 mg/dL 03/15/2019 1:59 PM [facility] Bilirubin Unconjugated 0.2 Unconjugated Bilirubin is a calculated value: Reference ranges have not been established. mg/dL 03/15/2019 1:59 PM [facility] Alkaline Phosphatase 88 40 - 150 Units/L 03/15/2019 1:59 PM [facility] ALT 50 0 - 55 Units/L 03/15/2019 1:59 PM [facility] AST 46(H) 5 - 34 Units/L 03/15/2019 1:59 PM [facility] Albumin/Globulin Ratio 1.0(L) 1.1 - 2.3 03/15/2019 1:59 PM [facility] Blood BLOOD SPECIMEN / Unknown Lab Venipuncture / Unknown 03/15/2019 1:31 PM MANUFACTURING SUPERVISOR 03/15/2019 1:38 PM MANUFACTURING SUPERVISOR Erma Neri MD LAB - CHEMISTRY LD SALDAÑA [address] [phone] * [place] DRAIN/INJECT LARGE JOINT/BURSA (03/10/2019 8:57 AM MANUFACTURING SUPERVISOR) Narrative Stephanie Reynolds PA-C - 03/10/2019 8:57 AM MANUFACTURING SUPERVISOR Stephanie Reynolds PA-C ? 03/10/2019 ??9:05 AM [...] Stephanie Reynolds PA-C PROCEDURE/MINOR SURGICAL ORDERABLES * [place] DRAIN/INJECT LARGE JOINT/BURSA (12/07/2018 5:44 PM CDT) [...] conservation therapy in 2016. COMPARISON: Mammograms from [facility] including 02/06/2018 (right CC view only), 08/01/2017 (right CC and right MLO views only), 07/05/2016, 07/12/2015, 07/06/2015. BREAST COMPOSITION: There are scattered areas of fibroglandular density. FINDINGS: Posttreatment changes in the left breast. No suspicious mass, architectural distortion, or calcifications in either breast. Ultrasound of the area of symptoms performed by the bottle washing machine operator. She points to pain in the upper outer right breast. There is no suspicious solid or cystic mass. Jan Anup DO US ORDERABLES Care Teams Senior Scheduler Relationship Specialty Start Date End Date Willis Vreas MD [address] [place] [address] PCP - General 05/03/21 Cole Ku MD [address] OF [facility] [place] [address] General Surgery 11/10/20 Elizabeth Garcia MD [address] [address] Hematology and Oncology 10/21/23
--- OUTSIDE RECORDS SUMMARY | 2024-05-27 21:17 | XMS_ITS | Referral Summary ---
Author Organization [facility] Address [address] [place] [address] Care Team Providers Care Fitness Specialist Name Role Phone Cole Ku MD Unavailable Willis Veras MD Primary Care Provider Elizabeth Garcia MD Unavailable [phone] Source Comments [facility],non-owned Affiliates and Associated Physician Practices is amultiple site organization consisting of ambulatory clinics and hospital sitesin [place], [place], [place] and [place]. This disclosure is being madepursuant to the Care Everywhere program and may not contain all information available regarding this patient. Last updated 18.[facility] Encounters Date Type Department Care Team Description 04/08/2024 Orders Only [facility] - GI [address] [facility], [place] [phone] Marlena Mccoy, MECHANICAL PROJECT MANAGER-CLOTHING SALES ASSISTANT Family history of hemochromatosis from Last 3 Months Allergies No known [...] tablet by mouth once daily 08/06/2022 Active [place]-3 Fatty Acids (fish oil) 1000 MG capsule [...] 07/21/2015 Immunizations Name Administration Dates Next Due Covedgar [...] st Contact Info) Description 06/02/2024 10:30 AM MEAT CUTTER Office Visit [facility] - Orthopedic Surgery [address] [place] [phone] Kevin Britton MD [address] [facility] [address] [place] [address] 08/10/2024 1:00 PM CDT Office Visit [facility] - DEPARTMENT STORE SALESPERSON [address] [facility] [address] [place] [phone] Daja Mir MD [address] [facility] [place] [address] 10/26/2024 1:00 PM CDT Office Visit [facility] - Hematology/Oncology [address] [place] [phone] Elizabeth Garcia MD [address] [facility] 3 [place] [address] 01/17/2025 12:30 PM CDT Procedure visit [facility] [address] [place] [phone] 01/17/2025 1:00 PM CDT Office Visit [facility] - GI [address] [place] [phone] Marlena Mccoy, MECHANICAL PROJECT MANAGER-CLOTHING SALES ASSISTANT [address] [place] [address] [facility] [place] [address] Goals Goal Patient Goal Type Associated Problems Recent Progress Patient-Stated? Author Mobility General On track(01/08/2 021 9:08 AM MEAT CUTTER) No Tika Pope, RN Note: Expected end [...] last dose Medical Devices Implanted Type Area Blueprint Machine Operator Device Identifier Shelf Expiration Date Model / Serial / Lot Ins Tib 3-4 11mm Kn Xlpe Dsh Legion Implanted:Qty: 1 on 02/01/2022 by Kevin Britton MD at [facility] Left: Knee [employer] 06/21/2030 [id number] / / [id number] Cmpnt Fem Kn Lt 5 Crcte Rtn Legion Rondon Implanted:Qty: 1 on 02/01/2022 by Kevin Britton MD at [facility] Left: Knee [employer] 05/26/2031 [id number] / / [id number] Stem Tib 55mm 18mm Prfx Mtphsl Kn Implanted:Qty: 1 on 02/01/2022 by Kevin Britton MD at [facility] Left: Knee [employer] 01/22/2030 [id number] / / [id number] Bsplt Tib Legion 4 Kn Lt Rondon Por Implanted:Qty: 1 on 02/01/2022 by Kevin Britton MD at [facility] Left: Knee [employer] 07/04/2029 [id number] / / [id number] Screw Bsplt 25mm 6.5mm Gns2 Kn Tib Por Implanted:Qty: 1 on 02/01/2022 by Kevin Britton MD at [facility] Left: Knee [employer] 10/22/2030 [id number] / / [id number] Screw Bsplt 20mm 6.5mm Gns2 Kn Tib Por Implanted:Qty: 1 on 02/01/2022 by Kevin Britton MD at [facility] Left: Knee [employer] 09/10/2031 [id number] / / [id number] Screw 6.5mm 30mm Sphrcl Head Hip Actb Implanted:Qty: 1 on 02/01/2022 by Kevin Britton MD at [facility] Left: [employer]nee [employer] 10/03/2031 [id number] / / [id number] Screw Bsplt 30mm 6.5mm Gns2 Kn Tib Por Implanted:Qty: 1 on 02/01/2022 by Kevin Britton MD at [facility] Left: Knee [employer] 10/22/2030 [id number] / / [id number] Liletta Intrauterine System Implanted:Qty: 1 on 10/16/2022 by Cole Garcia MD at [facility] N/A: Uterus [employer] 06/05/2025 [id number] / / [id number] Procedures Procedure Name Priority Date/Time Associated Diagnosis Comments HEMOCHROMATOSIS MUTATION PANEL Routine 04/12/2024 9:44 AM MEAT CUTTER Family history of hemochromatosis IRON + TIBC PANEL Routine 04/12/2024 9:4 4 AM MEAT CUTTER Family history of hemochromatosis FERRITIN Routine 04/12/2024 9:44 AM MEAT CUTTER Family history of hemochromatosis COMPREHENSIVE METABOLIC PANEL Routine 04/12/2024 9:44 AM MEAT CUTTER Family history of hemochromatosis CBC W AUTO DIFFERENTIAL Routine 04/12/2024 9:44 AM MEAT CUTTER Family history of hemochromatosis ENDOSCOPY, COLON, SCREENING Routine 02/03/2024 7:25 AM CDT MAMMO BILAT DIAGNOSTIC W [place] Routine 10/09/2023 2:14 PM CDT Abnormal mammogram HEPATITIS C ANTIBODY Routine 05/12/2020 10:28 AM MEAT CUTTER NAFLD (nonalcoholic fatty liver disease) Elevated liver enzymes from Last 3 Months or Most Recently Relevant to Health Maintenance Results * HEMOCHROMATOSIS MUTATION PANEL (04/12/2024 9:44 AM MEAT CUTTER) DNA Mutation Analysis See Below [facility] Comment: [...] clinical information reviewed by Lacie Sue, Ph.D., [facility]. DETAILED ASSAY INFORMATION: Hereditary hemochromatosis (HH) is [...] variants in the HFE gene, C282Y (NM 312825.2: c.845G>A, p.[id number]) and H63D (NM 069130.2: c.187C>G, p.Cco84Rsv), that are commonly associated with HH. These [...] Health care providers, please contact your local [facility] genetic counselor or call [phone] ( ) for assistance with the interpretation of these results. This test was developed and its analytical performance characteristics have been determined by [facility]. It has not been cleared or approved by FDA. This assay has been validated pursuant to the CLIA regulations and is used for clinical purposes. For more information, please refer to http://education.[employer]/faq/hemochromatosis. (This link is being provided for informational/educational purposes only.) A portion of the testing was performed at [facility]. Reviewed and signed by Laboratory results and submitted clinical information reviewed by Lacie Sue, Ph.D., [facility], Signed on 04/22/2024 at 18:28 Test Performed at: [facility] ? IO/[facility] [address] [place], [place] ??[phone] PAULO HINDS MD,PHD,CARLOS Blood BLOOD SPECIMEN / Unknown 04/12/2024 9:44 AM MEAT CUTTER 04/12/2024 9:44 AM MEAT CUTTER Marlena Mccoy MECHANICAL PROJECT MANAGER-CLOTHING SALES ASSISTANT LAB - CHEMI STRY ORDERABLES [facility] [address] [place] [address] * CBC WITH DIFFERENTIAL (04/12/2024 9:44 AM MEAT CUTTER) White Blood Cell Count 7.4 3.8 - [...] 0.4 % [facility] Comment: Test Performed at: [facility] [address] [place] [address] ??[phone] KANE WAN MD Blood BLOOD SPECIMEN / Unknown 04/12/2024 9:44 AM MEAT CUTTER 04/12/2024 9:44 AM MEAT CUTTER Marlena Mccoy MECHANICAL PROJECT MANAGER-CLOTHING SALES ASSISTANT LAB - HEMAT OLOGY ORDERABLES Performing Organization Address City/State/[facility] Co de Phone Number [facility] [address] [place] [address] * (ABNORMAL) COMPREHENSIVE METABOLIC PANEL (04/12/2024 9:44 AM MEAT CUTTER) Glucose 106(H) 65 - 99 mg/dL [facility] [...] mL/min/1. 73m2 [facility] BUN/Creatinine Ratio SEE NOTE: - (calc) [facility] Comment: ?? Not Reported: [...] 29 U/L [facility] Comment: Test Performed at: [facility] [address] [place] [address] ??[phone] KAEN WAN MD Blood BLOOD SPECIMEN / Unknown 04/12/2024 9:44 AM MEAT CUTTER 04/12/2024 9:44 AM MEAT CUTTER Marlena Mccoy APRN-CLOTHING SALES ASSISTANT LAB - CHEMI STRY ORDERABLES [facility] [address] [place] [address] * IRON + TIBC PANEL (04/12/2024 9:44 AM MEAT CUTTER) Iron 158 45 - 160 mcg/dL [facility] TIBC 373 250 - 450 mcg/dL (calc) [facility] % Saturation 42 16 - 45 % (calc) [facility] Comment: Test Performed at: [facility] [place], [place] ??[phone] KANE WAN MD Blood BLOOD SPECIMEN / Unknown 04/12/2024 9:44 AM MEAT CUTTER 04/12/2024 9:44 AM MEAT CUTTER Marlena Mccoy APRNTurpitude ORDERABLES Performing Organization Address [facility] de Phone Number [facility] [address] [place] [address] * FERRITIN (04/12/2024 9:44 AM MEAT CUTTER) Ferritin 95 16 - 232 ng/mL [facility] Comment: Test Performed at: [facility] ? [facility] [address] [facility] [place] ??[phone] KANE WAN MD Blood BLOOD SPECIMEN / Unknown 04/12/2024 9:44 AM MEAT CUTTER 04/12/2024 9:44 AM MEAT CUTTER Marlena Mccoy MECHANICAL PROJECT MANAGER-[employer] Peripherals ORDERABLES Performing Organization Address [facility] de Phone Number [facility] [address] [place] [address] * Endoscopy, Colon, Screening (02/03/2024 7:25 AM CDT) Report Endoscopy POC Endoscopy Department Report _ Patient Name: Milagros Torres ?Procedure Date: 02/03/2024 7:25 AM ?Date of : 1965 Classification: Outpatient ?Gender: Female Ethnicity: Not or ? Race: White _ Providers: ?Joseph Basilio MD Referring : ? Willis Veras MD; Marlena Mccoy, ?MECHANICAL PROJECT MANAGER; lEizabeth Garcia MD Procedure: ?Colonoscopy Indications: ?High risk [...] bowel ?preparation was evaluated using the BBPS ([place] ?Bowel Preparation Scale) with scores of: Right [...] Procedure Code(s): ? --- Professional --- ? 19134, Colonoscopy, flexible; with biopsy, single or multiple Diagnosis Code(s): ?--- Professional --- ?Z86.010, Personal history of colonic polyps ?K63.89, Other specified diseases of intestine ?K64.8, Other hemorrhoids ?K57.30, Diverticulosis of large intestine without ?perforation or abscess without bleeding CPT copyright 2021 [employer]. All rights reserved. The codes documented in this report are preliminary and upon data integration architect review may be revised to meet current compliance requirements. Joseph Basilio MD 02/03/2024 8:47:53 AM Note Initiated On: 02/03/2024 7:25 AM Number of Addenda: 0 ? [facility] ? [address] [place], [place] [address] [place] [address] PROVATION 02/03/2024 7:25 AM CDT Joseph Basilio MD GI PROCEDURE ORDERABLES [facility] PROVATION * MAMMO BILAT DIAGNOSTIC W [...] ??LIMITED LEFT BREAST ULTRASOUND (COMBINED REPORT) LOCATION: [facility] EXAM DATE: ??10/09/2023 HISTORY: Follow-up to [...] * HEPATITIS C ANTIBODY (05/12/2020 10:28 AM MEAT CUTTER) Hepatitis C Antibody Non-react pura Non-reac tive 05/12/2020 11:54 AM MEAT CUTTER [facility] Comment:Hepatitis C Antibody screen indicates no serologic evidence of past or current infection with Hepatitis C Virus. Patients with unexplained liver disease who are immunocompromised or suspected of having acute Hepatitis C infection may benefit from Nucleic Acid Test (KRISTIAN) for Hepatitis C Viral RNA to confirm Hepatitis C status. Blood BLOOD SPECIMEN / Unknown Lab Venipuncture / Unknown 05/12/2020 10:28 AM MEAT CUTTER 05/12/2020 11:02 AM MEAT CUTTER Marlena Mccoy MECHANICAL PROJECT MANAGER-CLOTHING SALES ASSISTANT LAB - CHEMI STRY ORDERABLES [facility] [address] [place] [address], [facility] [phone] from Last 3 Months or Most Recently Relevant to Health Maintenance Advance Directives * Full Code (Latest Code Status on File) Date Activated Date Inactivated Comments 02/01/2022 11:03 AM 02/02/2022 11:19 AM * Full Code Date Activated Date Inactivated Comments 02/01/2022 5:47 AM 02/01/2022 11:03 AM Care Teams Fitness Specialist Relationship Specialty Start Date End Date Willis Veras MD [address] [place] [address] PCP - General 05/03/21 Cole Ku MD [address] OF [facility] [place] [address] General Surgery 11/10/20 Elizabeth Garcia MD [address] [address] Hematology and Oncology 10/21/23
--- OUTSIDE RECORDS SUMMARY | 2024-05-27 21:17 | XMS_ITS | Clinical Summary ---
Author Organization [facility] Address [address] [place] [address]. [place], [place] [address] [place] [address] Care Team Providers Care Bench Hand Name Role Phone Asher Garrison MD Primary Care Provider [phone] Allergies No known active allergies Medications tamoxifen [...] positive, unspecified laterality, unspecified site of breast ([facility]) 09/04/2017 Overview (10/23/2018): Transitioned From: Abnormal mammogram [...] to complete this topic Insurance Care Teams Bench Hand Relationship Specialty Start Date End Date Asher Garrison MD PCP - General INTERNAL MEDICINE 10/23/18
--- OUTSIDE RECORDS SUMMARY | 2024-05-27 21:17 | XMS_ITS | Encounter Summary ---
Author Organization [facility] Address [address] [place] [address] Care Team Providers Care Field Horticultural Specialty Grower Name Role Phone Cole Ku MD Unavailable Willis Veras MD Primary Care Provider Elizabeth Garcia MD Unavailable [phone] Reason for Visit * Reason Onset Date Comments Question 03/07/2023 Encounter Details Date Type Department Care Team (Late st Contact Info) Description 03/07/2023 Telephone [facility] [address], [facility] [address] [place] [address] Chay Major MD [address] [facility] [address] [place] [address] Question Social History Tobacco Use Types Packs/Day [...] take over the counter Please contact CB# [phone] documented in this encounter Plan of Treatment Upcoming Encounters Date Type Department Care Team (Late st Contact Info) Description 06/02/2024 10:30 AM COMMERCIAL AIRLINE PILOT Office Visit [facility] - Orthopedic Surgery [address] [place] [address] Kevin Britton MD [address] [place] [address] 08/10/2024 1:00 PM CDT Office Visit [facility] - [facility]ER [facility]CH [address] [facility] [address] [place] [phone] Daja Mir MD [address] [facility] [place] [address] 10/26/2024 1:00 PM CDT Office Visit [facility] - Hematology/Oncology [address] [place] [phone] Elizabeth Garcia MD [address] [facility] [address] [place] [address] 01/17/2025 12:30 PM CDT Procedure visit [facility] - GI [address] [facility], [place] [phone] 01/17/2025 1:00 PM CDT Office Visit [facility] - GI [address] [place] [address], [facility] [phone] Marlena Mccoy, ADMINISTRATIVE AND PROGRAM SPECIALIST-HEALTH RESEARCHER [address] [place] [address] [facility] [place] [address] documented as of this encounter Goals Goal Patient Goal Type Associated Problems Recent Progress Patient-Stated? Author Mobility General On track( 021 9:08 AM COMMERCIAL AIRLINE PILOT) No Tika Pope, SABRINA Note: Expected end [...] on filedocumented in this encounter Care Teams Field Horticultural Specialty Grower Relationship Specialty Start Date End Date Willis Veras MD [address] [place] [address] PCP - General 05/03/21 Cole Ku MD [address] OF [facility] [place] [phone] General Surgery 11/10/20 Elizabeth Garcia MD [address] [address] Hematology and Oncology 10/21/23 documented as of this encounter
== END 2024-05-26 07:40 | disposition home or self-care (01) ==
LOC: ANHLAB 07:41
PROVIDERS: PCP Family Medicine; Visit Provider Family Medicine
DX: U07.1 COVID-19 (principal)
CPT/HCPCS: 87637; 87651

== ENCOUNTER 2025-05-03 11:54 | Emergency (ER) | payer OTHER, SELFPAY ==
--- NOTE | ~2025-05-03 | CT_ITS ---
EXAMINATION: CT abdomen pelvis w con DATE: 05/03/2025 15:18 INDICATION: Upper abdomen pain. Nausea and diarrhea. TECHNIQUE: Computed tomography (CT) of the abdomen and pelvis was performed with intravenous contrast. The dose-length product was 586.21 mGy-cm. Automated exposure control and iterative reconstruction technique were employed. COMPARISON: None. FINDINGS: Status post cholecystectomy. Fatty infiltration of the liver. The spleen, pancreas, adrenal glands and kidneys are unremarkable. There are air- fluid levels throughout nondilated small bowel, likely enteritis or ileus. No definite obstruction. Colonic diverticulosis without evidence for divert iculitis. No free air or free fluid. Status post hysterectomy. No significant vascular abnormality. No lymphadenopathy. Status post cholecystectomy with expected prominence of the common bile duct. IMPRESSION: 1. Air-fluid levels throughout nondilated small bowel, most likely enteritis or ileus. No obstruction. Reviewed, dictated and finalized at location [facility] [employer]
[2025-05-03 11:58] VITALS: BP 124/84; PULSE 91; RESP 17; TEMP 36.4; O2SAT 100
--- OUTSIDE RECORDS SUMMARY | 2025-05-03 12:29 | XMS_ITS | Clinical Summary ---
Author Organization [facility] Address [address] [place] [address] Care Team Providers Care Nursing Home Admissions Director Name Role Phone Asher Garrison MD Primary Care Provider [phone] Allergies No known active allergies Medications tamoxifen [...] positive, unspecified laterality, unspecified site of breast 09/04/2017 Overview (10/23/2018): Transitioned From: Abnormal mammogram [...] 75 10/23/2018 10:49 AM CDT Temperature 36.9 C (98.4 F) 10/23/2018 10:49 AM CDT Respiratory Rate 18 10/23/2018 10:49 AM CDT Oxygen Saturation 97% 10/23/2018 10:49 AM CDT Inhaled Oxygen Concentration - - Weight 92.1 kg (203 lb) 10/23/2018 10:49 AM CDT Height 170.2 cm (5' 7) 10/23/2018 10:49 AM CDT Body Mass Index [...] Screening with HPV 1994 Mammogram Screening 2004 Pneumococcal Vaccine: 50+ Ye ars (1 of 1 - PCV) 2014 Zoster Vaccines (1 of 2) 2014 COVID-19 Vaccine ( - 2024-2 6 season) 2025 Influenza Adult (#1) 2025 DTaP, Tdap and Td Vaccines ( 2 - Td or Tdap) 11/14/2026 11/14/2016 RSV Immunization or 60+ Years (1 - 1-dose 75+ series) 07/19/2039 Hepatitis A Vaccines Aged Out No long er eligible based on patient's age to complete this topic Meningococcal B Vaccine Aged Out No l onger eligible based on patient's age to complete this topic Meningococcal Vaccine Aged Out No gin marquita eligible based on patient's age to complete this topic RSV Immunizations Under 20 Months Aged Out No longer eligible based on patient's age to complete this topic Insurance Care Teams Nursing Home Admissions Director Relationship Specialty Start Date End Date Asher Garrison MD PCP - General INTERNAL MEDICINE 10/23/18
--- NOTE | 2025-05-03 13:51 | ED.GENADULT ---
HPI - General Adult General Chief complaint: Nausea/Vomiting/Diarrhea <JUAN Kraus Last Filed: 05/03/25 13:55> Stated complaint: upper abdominal pain n/v/d <JUAN Kraus Last Filed: 05/03/25 13:55> Time Seen by Provider: 05/03/25 13:51 <JUAN Kraus Last Filed: 05/03/25 13:55> Focused HPI: Patient is a 59 y/o female, with PMH of cholecystectomy, who presents to the ED with c/o upper abd pain. Patient reports pain began around 5am this morning and has been persistent since then. Worse with ambulation. Attempted to go to work but states pain became worse. Reports nausea, diarrhea, lightheadedness. Denies rectal bleeding, melena, vomiting, fevers. Denies hx of similar pain. GENERAL: Well-appearing, well-nourished, and in no acute distress. HEAD: Normocephalic, atraumatic. CHEST: Clear to auscultation. ?No respiratory distress. HEART: Regular rate and rhythm.? ABD: Mild diffuse tenderness throughout upper abdomen, epigastric region, RUQ NEURO: ?Alert and oriented x3. Patient screened in triage and initial orders placed.? ?Additional care and disposition to be based upon?diagnostic testing and treatment. <JUAN Kraus Last Filed: 05/03/25 13:55> Source: patient <JUAN Kraus Last Filed: 05/03/25 13:55> Mode of arrival: ambulatory <JUAN Kraus Last Filed: 05/03/25 13:55> Limitations: no limitations <JUAN Kraus Last Filed: 05/03/25 13:55> Related Data Home medications: Home Medications ?Medication ?Instructions ?Recorded ?Confirmed ?Last Taken ?Type calcium carbonate (Calcium 600) 600 mg PO DAILY 03/14/21 03/16/25 Unknown History cholecalciferol (vitamin D3) 50 50 mcg PO DAILY 03/14/21 03/16/25 Unknown History mcg (2,000 unit) capsule celecoxib 100 mg capsule (Celebrex) 100 mg PO DAILY 06/03/22 03/16/25 Unknown History <Darlene Ngo PA-C - Last Filed: 05/03/25 13:55> Allergies/adverse reactions: Allergies Allergy/AdvReac Type Severity Reaction Status Date / Time amlodipine AdvReac Severe Swelling Verified 03/16/25 08:33 <Darlene Ngo PA-C - Last Filed: 05/03/25 13:55> Review of Systems Review of Systems: All systems reviewed & are unremarkable except as noted in HPI and below <Saulo Patterson MD - Last Filed: 05/03/25 18:57> [facility] Past Medical History Medical History: Medical History (Updated 05/03/25 @ 16:05 by Saulo Patterson MD) History of shingles (~2020) Right flank Prediabetes (~01/09/24) History of vaginal delivery x2 Hyperlipidemia Gastroesophageal reflux disease NAFLD (nonalcoholic fatty liver disease) History of left breast cancer Essential (primary) hypertension Osteoarthritis Anxiety <Darlene Ngo PA-C - Last Filed: 05/03/25 13:55> Surgical History Surgical History: Surgical History History of hysterectomy (~2022) History of section x 1 History of total left knee replacement (~2021) History of lumpectomy of left breast 2016 History of tubal ligation (~1990) H/O dilation and curettage (~2018) 2015, 2019 Hx laparoscopic cholecystectomy (~2020) <Darlene Ngo PA-C - Last Filed: 05/03/25 13:55> Family History Family History: Family History Mother Lung cancer Diabetes mellitus Heart disease Cerebrovascular accident Sibling Breast cancer Sister Malignant neoplasm of prostate brother Other Alcoholism Lung cancer Aunt and Uncle Grandparent Alcoholism Lung cancer Grandfather Father Hypertension Heart disease <Darlene Ngo PA-C - Last Filed: 05/03/25 13:55> Social History Social History: Social History (Updated 09/10/25 @ 10:20 by ZACHARY Taylor Social History: Milagros lives alone, 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 Her daughter lives nearby. Smoking status: Never smoker Alcohol intake: current Substance use: never Substance use type: does not use Lack of Transportation: No Lack of Food: Never True Current Housing: I Have Housing Concerned About Future Housing: No Difficulty Paying Gas/Electric Bills: No Difficulty Paying for Meds: No Currently Unemployed: No Education: High School Diploma/GED Difficulty w/ Childcare or Family Care: No Living arrangements: with roommate(s) Occupation/Education: occupation Gender identity (if verbalized by the patient): Female Spiritual care concerns: No Agree to blood products: Yes <Darlene Ngo PA-C - Last Filed: 05/03/25 13:55> Exam Narrative: APPEARANCE: Well appearing, no pain, no distress, well-nourished. HEAD: normocephalic, atraumatic. EYES: PERRLA/EOMI, conjunctivae clear. NOSE: Normal no drainage EARS:TMS clear with good light reflex. THROAT: Pharynx clear, no exudate. NECK: Supple. No adenopathy, no masses. RESPIRATORY: Airway patent, respirations nonlabored. Clear to auscultation bilaterally, no rales, rhonchi, wheezing. CARDIOVASCULAR: Regular rate and rhythm without murmurs rubs or gallops. ABDOMINAL: Soft, nontender, nondistended, normal bowel sounds MUSCULOSKELETAL: Moves all extremities. Strength/ROM intact, No edema, No calf tenderness. NEURO: Alert. Cranial nerves II through XII intact. Good gait. Good coordination SKIN: Warm, dry. Normal Color <Saulo Patterson MD - Last Filed: 05/03/25 18:57> Course Vital Signs Vital signs: Vital Signs Temperature 97.6 F 05/03/25 11:58 Pulse Rate 91 05/03/25 11:58 Respiratory Rate 17 05/03/25 11:58 Blood Pressure 124/84 05/03/25 11:58 Pulse Oximetry 100 05/03/25 11:58 Oxygen Delivery Room Air 05/03/25 11:58 Temperature 97.6 F 05/03/25 14:58 Pulse Rate 81 05/03/25 16:17 Respiratory Rate 14 05/03/25 16:17 Blood Pressure 133/76 05/03/25 16:17 Pulse Oximetry 96 05/03/25 16:17 Oxygen Delivery Room Air 05/03/25 11:58 <Darlene Ngo PA-C - Last Filed: 05/03/25 13:55> Vital Signs Temperature 97.6 F 05/03/25 11:58 Pulse Rate 91 05/03/25 11:58 Respiratory Rate 17 05/03/25 11:58 Blood Pressure 124/84 05/03/25 11:58 Pulse Oximetry 100 05/03/25 11:58 Oxygen Delivery Room Air 05/03/25 11:58 Temperature 97.6 F 05/03/25 14:58 Pulse Rate 81 05/03/25 16:17 Respiratory Rate 14 05/03/25 16:17 Blood Pressure 133/76 05/03/25 16:17 Pulse Oximetry 96 05/03/25 16:17 Oxygen Delivery Room Air 05/03/25 11:58 <Saulo Patterson MD - Last Filed: 05/03/25 18:57> [facility] Narrative Medical decision making narrative: MSE by KOFFI in triage <Darlene Ngo PA-C - Last Filed: 05/03/25 13:55> MSE by KOFFI in triage 59-year-old female presents to the emergency department for evaluation for nausea vomiting upper abdominal pain. Patient is currently afebrile and no leukocytosis stable hemoglobin. Patient has creatinine of 1.1 which is similar to her baseline. Patient does have elevated glucose at 1:25 a.m. and a normal anion gap. Normal lipase. No evidence of a urinary tract infection. CT scan does show evidence of enteritis without obstruction. Patient was treated with IV Zofran for nausea control and Cooper for pain control. On re-evaluation patient does feel improved. Patient was updated results of the workup. Patient will be provided Zofran and Bentyl for symptom control for home. All questions concerns were addressed. <Saulo Patterson MD - Last Filed: 05/03/25 18:57> Differential Diagnosis Differential Diagnosis: Colitis, diverticulitis, bowel obstruction, enteritis <Saulo Patterson MD - Last Filed: 05/03/25 18:57> Lab Data [facility] Lab Attestation statement: I personally reviewed the patient's lab results. <Saulo Patterson MD - Last Filed: 05/03/25 18:57> Result diagrams: 05/03/25 14:24 05/03/25 14:24 <Darlene Ngo PA-C - Last Filed: 05/03/25 13:55> Labs: Lab Results 05/03/25 Range/Units 14:24 WBC 8.3 (4.5-10.0) K/mm3 RBC 4.46 (4.2-5.4) M/mm3 Hgb 13.8 (12.0-15.0) g/dL Hct 40.1 (37.0-47.0) % MCV 89.9 (80-100) fl MCH 30.9 (26-34) pg MCHC 34.4 (32-36) g/dl RDW 12.6 (11.5-14.5) % Plt Count 190 (150-375) k/mm3 MPV 11.1 H (7.4-10.4) fl Immature Gran % (Auto) 0.4 (0-0.5) % Neut % (Auto) 74.7 H (45.5-73.1) % Lymph % (Auto) 17.4 L (18.3-44.2) % [place] % (Auto) 5.0 (2.6-8.5) % Eos % (Auto) 2.4 (0-4.4) % Baso % (Auto) 0.1 L (0.2-1.2) % Lymph # (Auto) 1.45 (0.9-3.2) K/mm3 [place] # (Auto) 0.4 (0.1-0.6) K/mm3 Eos # (Auto) 0.2 (0-0.3) K/mm3 Baso # (Auto) 0.0 (0.0-0.1) K/mm3 Abs Immat Gran (auto) 0.03 (0.00-0.031) K/mm3 Absolute Neuts (auto) 6.2 (1.3-6.7) K/mm3 Absolute Nucleated RBC 0.000 (0.0-0.012) K/mm3 Nucleated RBC % 0.0 (0.0-0.2) % Sodium 140 (137-145) mmol/L Potassium 3.8 (3.4-5.0) mmol/L Chloride 108 H (98-107) mmol/L Carbon Dioxide 24 (22-30) mmol/L Anion Gap 8 (4-12) mmol/L BUN 21 H (7-17) mg/dL Creatinine 1.11 H (0.7-1.0) mg/dL Estim Creat Clear Calc 55 ml/min Estimated GFR 50 L (59 - ) Glucose 125 H (65-110) mg/dL Calcium 10.1 (8.4-10.2) mg/dL Total Bilirubin 0.7 (0.2-1.3) mg/dL AST 45 H (14-36) U/L ALT 41 H (6-35) U/L Alkaline Phosphatase 90 (38-126) U/L Total Protein 8.1 (6.3-8.2) g/dL Albumin 4.5 (3.5-5.1) g/dL Lipase 116 (23-300) U/L Urine Color Yellow (Yellow) Urine Appearance Clear (Clear) Urine pH 5.0 (5.0-9.0) Ur Specific [place] 1.033 (1.001-1.035) Urine Protein Negative (Negative) mg/dL Urine Glucose (UA) Negative (Negative) mg/dL Urine Ketones Trace H (Negative) mg/dL Ur Blood (Man) Trace (Negative) Urine Nitrate Negative (Negative) Urine Bilirubin Negative (Negative) Urine Urobilinogen 0.2 (<2.0) mg/dL Leukocyte Esterase Rfl Trace H (Negative) JAROCHO/UL Urine RBC 3-5 H (0-2) /hpf Urine WBC 0-5 (0-3) /hpf Ur Squamous Epith Cells None seen (Few) /hpf Urine Bacteria None seen /hpf Urine Casts 0-2 <Darlene Ngo PA-C - Last Filed: 05/03/25 13:55> Lab Results 05/03/25 Range/Units 14:24 WBC 8.3 (4.5-10.0) K/mm3 RBC 4.46 (4.2-5.4) M/mm3 Hgb 13.8 (12.0-15.0) g/dL Hct 40.1 (37.0-47.0) % MCV 89.9 (80-100) fl MCH 30.9 (26-34) pg MCHC 34.4 (32-36) g/dl RDW 12.6 (11.5-14.5) % Plt Count 190 (150-375) k/mm3 MPV 11.1 H (7.4-10.4) fl Immature Gran % (Auto) 0.4 (0-0.5) % Neut % (Auto) 74.7 H (45.5-73.1) % Lymph % (Auto) 17.4 L (18.3-44.2) % [place] % (Auto) 5.0 (2.6-8.5) % Eos % (Auto) 2.4 (0-4.4) % Baso % (Auto) 0.1 L (0.2-1.2) % Lymph # (Auto) 1.45 (0.9-3.2) K/mm3 [place] # (Auto) 0.4 (0.1-0.6) K/mm3 Eos # (Auto) 0.2 (0-0.3) K/mm3 Baso # (Auto) 0.0 (0.0-0.1) K/mm3 Abs Immat Gran (auto) 0.03 (0.00-0.031) K/mm3 Absolute Neuts (auto) 6.2 (1.3-6.7) K/mm3 Absolute Nucleated RBC 0.000 (0.0-0.012) K/mm3 Nucleated RBC % 0.0 (0.0-0.2) % Sodium 140 (137-145) mmol/L Potassium 3.8 (3.4-5.0) mmol/L Chloride 108 H (98-107) mmol/L Carbon Dioxide 24 (22-30) mmol/L Anion Gap 8 (4-12) mmol/L BUN 21 H (7-17) mg/dL Creatinine 1.11 H (0.7-1.0) mg/dL Estim Creat Clear Calc 55 ml/min Estimated GFR 50 L (59 - ) Glucose 125 H (65-110) mg/dL Calcium 10.1 (8.4-10.2) mg/dL Total Bilirubin 0.7 (0.2-1.3) mg/dL AST 45 H (14-36) U/L ALT 41 H (6-35) U/L Alkaline Phosphatase 90 (38-126) U/L Total Protein 8.1 (6.3-8.2) g/dL Albumin 4.5 (3.5-5.1) g/dL Lipase 116 (23-300) U/L Urine Color Yellow (Yellow) Urine Appearance Clear (Clear) Urine pH 5.0 (5.0-9.0) Ur Specific [place] 1.033 (1.001-1.035) Urine Protein Negative (Negative) mg/dL Urine Glucose (UA) Negative (Negative) mg/dL Urine Ketones Trace H (Negative) mg/dL Ur Blood (Man) Trace (Negative) Urine Nitrate Negative (Negative) Urine Bilirubin Negative (Negative) Urine Urobilinogen 0.2 (<2.0) mg/dL Leukocyte Esterase Rfl Trace H (Negative) JAROCHO/UL Urine RBC 3-5 H (0-2) /hpf Urine WBC 0-5 (0-3) /hpf Ur Squamous Epith Cells None seen (Few) /hpf Urine Bacteria None seen /hpf Urine Casts 0-2 <Saulo Patterson MD - Last Filed: 05/03/25 18:57> Imaging Data Radiologist's impression: ITS Impressions Abdomen/Pelvis CT 05/03/25 15:26 IMPRESSION: 1. Air-fluid levels throughout nondilated small bowel, most likely enteritis or ileus. No obstruction. <Darlene Ngo PA-C - Last Filed: 05/03/25 13:55> ITS Impressions Abdomen/Pelvis CT 05/03/25 15:26 IMPRESSION: 1. Air-fluid levels throughout nondilated small bowel, most likely enteritis or ileus. No obstruction. <Saulo Patterson MD - Last Filed: 05/03/25 18:57> Discharge Plan Discharge Clinical Impression: Enteritis, Nausea, Diarrhea <Darlene Ngo PA-C - Last Filed: 05/03/25 13:55> Patient Disposition: Home <Darlene Ngo PA-C - Last Filed: 05/03/25 13:55> Condition: Stable <Darlene Ngo PA-C - Last Filed: 05/03/25 13:55> Instructions: Antibiotic Form, Clear Liquid Diet (ED), Acute Nausea and Vomiting (ED), Acute Diarrhea (ED), Abdominal Pain (ED) <Darlene Ngo PA-C - Last Filed: 05/03/25 13:55> Additional Instructions: Clear liquid diet for the next 3-5 days. Zofran as needed for nausea control. Tylenol for abdominal pain. Bentyl for abdominal cramping. Advance to a bland diet as tolerated. Have close follow-up with your primary care physician. If you have any worsening symptoms and please call or return to the emergency department. <JUAN Kraus Last Filed: 05/03/25 13:55> Patient Language: Armenian <Darlene Ngo PA-C - Last Filed: 05/03/25 13:55> Prescriptions: New ondansetron 4 mg tablet,disintegrating 4 mg PO Q8H PRN (Reason: nausea and vomiting) Qty: 14 0RF dicyclomine 10 mg capsule 10 mg PO BID Qty: 14 0RF No Action celecoxib [Celebrex] 100 mg capsule 100 mg PO DAILY benzonatate 100 mg capsule 100 mg PO TID PRN (Reason: cough) Qty: 30 1RF cholecalciferol (vitamin D3) 50 mcg (2,000 unit) capsule 50 mcg PO DAILY calcium carbonate [Calcium 600] 600 mg calcium (1,500 mg) tablet 600 mg PO DAILY omeprazole 20 mg capsule,delayed release(DR/EC) 20 mg PO DAILY Qty: 90 1RF losartan-hydrochlorothiazide 50-12.5 mg tablet 1 tablet PO DAILY Qty: 90 1RF losartan 25 mg tablet 25 mg PO DAILY Qty: 90 1RF Rx Instructions: Take in conjunction with Losartan HTCZ. simvastatin [Zocor] 10 mg tablet 10 mg PO QHS Qty: 90 1RF <Darlene Ngo PA-C - Last Filed: 05/03/25 13:55> Follow-up/Referrals: Asya Thayer APRN [Primary Care Provider, Family Practice] <Darlene Ngo PA-C - Last Filed: 05/03/25 13:55>
[2025-05-03] MEDS: HYDROcodone/acetaminophen (*CRX) 5-325 MG TABLET 1 TAB PO (14:17)
[2025-05-03] MEDS: ONDANSETRON INJ 4 MG/2 ML VIAL IV PUSH (14:17)
[2025-05-03 14:34] LABS: Hematocrit 40.1 % (37.0-47.0); Hemoglobin 13.8 g/dL (12.0-15.0); Immature Granulocyte Percent A 0.4 % (0-0.5); Lymphocytes Absolute Auto 1.45 K/mm3 (0.9-3.2); Mean Corpuscular HGB Conc 34.4 g/dl (32-36); Mean Corpuscular Hemoglobin 30.9 pg (26-34); Mean Corpuscular Volume 89.9 fl (80-100); Nucleated Red Blood Cells Absolute Auto 0.000 K/mm3 (0.0-0.012); Nucleated Red Blood Cells Perc 0.0 % (0.0-0.2); Platelet Count Result 190 k/mm3 (150-375); Red Blood Count 4.46 M/mm3 (4.2-5.4); White Blood Count 8.3 K/mm3 (4.5-10.0)
[2025-05-03 14:37] LABS: Add Urine Microscopic? YES; Appearance Urine Clear (Clear); Glucose Urine UA Negative (Negative); Leukocyte Esterase Ur Trace LEU/UL (Negative); Nitrate Urine Negative (Negative); Non Pathogenic Casts 0-2; Specific Grav Ur 1.033 (1.001-1.035)
[2025-05-03 14:53] LABS: Alanine Aminotransferase 41 U/L (6-35); Albumin Level 4.5 g/dL (3.5-5.1); Alkaline Phosphatase 90 U/L (38-126); Anion Gap 8 mmol/L (4-12); Aspartate Amino Transferase 45 U/L (14-36); Bilirubin,Total 0.7 mg/dL (0.2-1.3); Blood Urea Nitrogen 21 mg/dL (7-17); Calcium 10.1 mg/dL (8.4-10.2); Carbon Dioxide 24 mmol/L (22-30); Chloride 108 mmol/L (98-107); Estimated CRCL calculation 55 ml/min; Estimated Glomerular Filt Rate 50; Glucose 125 mg/dL (65-110); Lipase 116 U/L (23-300); Potassium 3.8 mmol/L (3.4-5.0); Sodium 140 mmol/L (137-145); Total Protein 8.1 g/dL (6.3-8.2)
[2025-05-03 14:58] VITALS: BP 171/63; PULSE 94; RESP 18; TEMP 36.4; O2SAT 95
[2025-05-03] MEDS: LACTATED RINGERS 1,000 ML 999 ML IV CONT (16:12)
[2025-05-03] MEDS: DICYCLOMINE HCL 10 MG CAPSULE 20 MG PO (16:13)
[2025-05-03 16:17] VITALS: BP 133/76; PULSE 81; RESP 14; O2SAT 96
[2025-05-03] MEDS: METOCLOPRAMIDE HCL INJ 10 MG/2 ML VIAL IV PUSH (17:09)
--- NOTE | 2025-05-03 17:16 | PC.NURSE ---
pt reports multiple bouts of Emesis EDP aware orders for Reglan 10 mg IVP X1 to be given
== END 2025-05-03 18:00 | disposition home or self-care (01) ==
PROVIDERS: Physician Assistant; Emergency Provider Emergency Medicine; PCP Nurse Practitioner Family
DX: K52.9 Noninfective gastroenteritis and colitis, unspecified (principal); I10 Essential (primary) hypertension; E78.5 Hyperlipidemia, unspecified; R73.03 Prediabetes; K21.9 Gastro-esophageal reflux disease without esophagitis; K76.0 Fatty (change of) liver, not elsewhere classified; M19.90 Unspecified osteoarthritis, unspecified site; F41.9 Anxiety disorder, unspecified; Z96.652 Presence of left artificial knee joint; Z85.3 Personal history of malignant neoplasm of breast; Z90.49 Acquired absence of other specified parts of digestive tract; Z90.710 Acquired absence of both cervix and uterus
CPT/HCPCS: 36415; 74177; 80053; 81001; 83690; 85025; 99283; 99284; A9270; J2405; J2765; J7120; Q9967